=== PATIENT | female | born 1960 | race Caucasian/White ===

== ENCOUNTER 2016-04-15 07:27 | Outpatient (RCR) | payer MEDICARE, OTHER ==
[~2016-04-15 07:27] MED LIST: ALBU17AE23 INH; ALPR0.5T7 PO; ALPR0.5T72 PO; ALPR1T GT; AMOX-355 PO; APIX5TAB PO; ARIP5TAB12 PO; ARIP5TAB20 PO; BUSP10TA95 PO; BUSP5TAB59 PO; BUTA-234 PO; CARB-88 PO; CARB200T48 PO; CARB200T6 PO; CEFP500T4 PO; CEPH500C PO; DCS100C PO; DESV100T PO; DESV50TA PO; DICL50TA6; DILT240C90 PO; DIPH25TA82 PO; DULO60CA6; FLUT16SP22 NS; FLUT9.9S NS; GABA800T2 PO; HYDR-3062 PO; HYDR-3454 PO; HYDR-3714 PO; HYDR12.5 PO; HYDR12.56 PO; LISI1TAB10 PO; LISI40TA PO; LISI5TAB; LSNP20T PO; METO-272 PO; MPR22TI TOP; NEO/5DRO4 OU; NF-CLIN1% TP; NORT25CA PO; NYST15CR TP; OMEP20TA2 PO; PANT40TA2 PO; PANT40TA3 PO; PRD20T PO; PROM12.59 PO; PROP40TA5 PO; PROPANOLOL PO; RT-ALBUINH IH; SUCR1TAB PO; SUCR1TAB36 PO; SULF1TAB23 PO; SULF1TAB35 PO; TRAM50TA2 PO; TRZ100T; ZOLP5TAB6 PO; ZOLP5TAB7 PO
[2016-04-15] MEDS ORDERED: NYST15CR TP (08:29)
[2016-04-15] MEDS ORDERED: LISI-552 PO (08:29)
[2016-04-15] MEDS ORDERED: LISI40TA PO (08:29)
[2016-04-15] MEDS ORDERED: DILT240C PO (08:29)
[2016-04-15] MEDS ORDERED: METO-272 PO (08:29)
[2016-04-15] MEDS ORDERED: RIVA20TA PO (08:29)
[2016-04-15] MEDS ORDERED: CARB200T6 PO (08:29)
[2016-05-11] MEDS ORDERED: VILA20TA PO (10:25)
[2016-05-11] MEDS ORDERED: AMLO5TAB2 PO (10:25)
[2016-05-11] MEDS ORDERED: BUSP10TA95 PO (10:25)
[2016-05-12] MEDS ORDERED: POTA20TA8 PO (11:43)
[2016-05-12] MEDS ORDERED: HYDR12.5 PO (11:43)
[2016-05-12] MEDS ORDERED: AMLO10TA2 PO (11:43)
[2016-05-16] MEDS ORDERED: FAMO-119 PO (16:49)
== END 2016-06-20 | disposition home or self-care (01) ==
LOC: CARD 07:27
PROVIDERS: ATTEND Internal Medicine Interventional Cardiology
DX: I48.91 Unspecified atrial fibrillation (principal); R07.9 Chest pain, unspecified
CPT/HCPCS: 93270

== ENCOUNTER 2016-05-10 14:39 | Observation (INO) | payer MEDICARE, OTHER ==
[~2016-05-10] VITALS: Ht 171.4 cm; Wt 117.7 kg
[~2016-05-10 14:39] MED LIST changes: +DILT240C PO; +LISI-552 PO; +RIVA20TA PO
[2016-05-10] MEDS ORDERED: RX-NITROGLYCERIN 0.4 MG TAB BTL 25'S SL PRN (15:00)
[2016-05-10] MEDS ORDERED: ASPIRIN 81 MG CHEW (CHILDREN'S ASA) PO ONE (15:00)
[2016-05-10 15:05] LABS: BASOPHILS % (AUTO) 0 % (0-10); EOSINOPHILS # (AUTO) 0.2 10^3/uL (0.0-0.3); EOSINOPHILS % (AUTO) 3 % (0-10); LYMPHOCYTES % (AUTO) 27 % (12-44); MEAN CORPUSCULAR HEMOGLOBIN 29 PG (25-34); MEAN CORPUSCULAR HGB CONC 33 G/DL (32-36); MEAN CORPUSCULAR VOLUME 87 FL (80-99); MEAN PLATELET VOLUME 9.9 FL (7.4-10.4); MONOCYTES # (AUTO) 0.5 X 10^3 (0.0-1.0); MONOCYTES % (AUTO) 7 % (0-12); NEUTROPHILS # (AUTO) 4.6 X 10^3 (1.8-7.8); NEUTROPHILS % (AUTO) 63 % (42-75); PLATELET COUNT 220 10^3/uL (130-400); RED BLOOD COUNT 4.63 10^6/uL (4.35-5.85); RED CELL DISTRIBUTION WIDTH 13.5 % (10.0-14.5); WHITE BLOOD COUNT 7.3 10^3/uL (4.3-11.0)
[2016-05-10 15:15] LABS: INR 0.9 (0.8-1.4); PROTHROMBIN TIME PATIENT 12.1 SEC (12.2-14.7)
--- NOTE | 2016-05-10 15:15 | Diagnostic Imaging Report ---
INDICATION: Chest pain. Discussion: Single portable upright view of the chest was obtained, comparison 04/15/2016. Stable normal heart size. No focal consolidation, pleural fluid, pneumothorax. No osseous abnormality. IMPRESSION: 1. Negative portable chest. Dictated by: Dictated on workstation # [id number]
[2016-05-10 15:25] LABS: ALANINE AMINOTRANSFERASE 43 U/L (0-55); ALBUMIN 4.3 G/DL (3.2-4.5); AMYLASE 53 U/L (25-125); ANION GAP 11 MMOL/L (5-14); ASPARTATE AMINO TRANSFERASE 26 U/L (5-34); BILIRUBIN,TOTAL 0.2 MG/DL (0.1-1.0); BLOOD UREA NITROGEN 7 MG/DL (7-18); BUN/CREATININE RATIO 10; CALCIUM 9.2 MG/DL (8.5-10.1); CARBON DIOXIDE 25 MMOL/L (21-32); CHLORIDE 101 MMOL/L (98-107); CREATINE KINASE 48 U/L (29-168); CREATININE SERUM 0.68 MG/DL (0.60-1.30); GFR ESTIMATED > 60; GLUCOSE 86 MG/DL (70-105); LIPASE 25 U/L (8-78); MAGNESIUM 2.1 MG/DL (1.8-2.4); POTASSIUM 3.6 MMOL/L (3.6-5.0); SODIUM 137 MMOL/L (135-145); TOTAL PROTEIN 7.4 G/DL (6.4-8.2)
[2016-05-10 15:31] LABS: TROPONIN I < 0.30 NG/ML (<0.30)
[2016-05-10] MEDS ORDERED: NITROGLYCERIN 2% OINT 1 GM UNIT DOSE PACKET ONE (16:07)
[2016-05-10] MEDS ORDERED: NITROGLYCERIN 2% OINT 1 GM UNIT DOSE PACKET TOP ONE (16:15)
[2016-05-10 16:45] VITALS: BP 186/119
[2016-05-10 17:00] VITALS: BP 208/110
[2016-05-10 17:15] VITALS: BP 201/107
[2016-05-10 17:45] VITALS: BP 174/97
[2016-05-10] MEDS ORDERED: NITROGLYCERIN SUBLINGUAL 0.4 MG TAB (NITROSTAT) SL ONE (18:15)
[2016-05-10 18:30] VITALS: BP 169/93
[2016-05-10] MEDS ORDERED: NITROGLYCERIN SUBLINGUAL 0.4 MG TAB (NITROSTAT) SL PRN (18:30)
--- NOTE | 2016-05-10 19:15 | ED Chest Pain ---
General Chief Complaint: Chest Pain Stated Complaint: CHEST PAIN,HTN Nursing Triage Note: PT HAS CHEST PAIN STARTED APPROX 1 HOUR AGO STATES HAD YESTERDAY BUT WENT AWAY RATES 11/15 AT THIS X Nursing Sepsis Screen: No Definite Risk Source: patient History of Present Illness Time seen by provider: 14:45 Initial Comments PT ARRIVES VIA POV FROM HOME C/O CHEST DISCOMFORT --CENTER OF CHEST PAIN BEGAN YESTERDAY WHILE IN VEHICLE, TRAVELING FROM [place]. --LASTED 2 HOURS , THEN WENT AWAY PAIN STARTED AGAIN 1 HOUR AGO WHILE WATCHING TV--RATES PAIN -12/16 NO SHORTNESS OF BREATH NO SWEATS + NAUSEA, NO VOMITING NO CHANGE IN CHRONIC LEG SWELLING, NO CALF PAIN ? HEART RACING EARLIER? NOT NOW. PT HAS HISTORY OF ATRIAL FIBRILLATION ON XARELTO PCP: DR. SPENCE CARDIOLOGY: DR. MEJIA Allergies and Home Medications Allergies Coded Allergies: amitriptyline (Unverified Allergy, Unknown, CAUSED SLURRED SPEECH, 08/15/15) Home Medications Albuterol Sulfate 8.5 Gm Hfa.aer.ad 1-2 PUFF IH PRN PRN PRN SHORTNESS OF BREATH (Reported) Alprazolam 0.5 Mg Tablet 0.5 MG PO BID PRN PRN ANXIETY (Reported) Aripiprazole 5 Mg Tablet 5 MG PO DAILY (Reported) Buspirone HCl 10 Mg Tablet 10 MG PO TID (Reported) Carbamazepine 200 Mg Tablet 200 MG PO DAILY (Reported) TAKES FOR FACIAL TWITCHES, NOT SEIZURES Carbamazepine 200 Mg Tablet 400 MG PO HS (Reported) TAKES 2 (200MG) TABLETS Desvenlafaxine Succinate 100 Mg Tab.er.24h 100 MG PO DAILY (Reported) Diltiazem HCl 240 Mg Cap.er.24h 240 MG PO DAILY (Reported) Fluticasone Propionate 16 Gm [place].susp 1 SPRAY NS DAILY PRN PRN ALLERGIES ( Reported) Lisinopril 40 Mg Tablet 40 MG PO DAILY (Reported) Metoprolol Succinate 50 Mg Tab.er.24h 50 MG PO DAILY (Reported) Nortriptyline HCl 25 Mg Capsule 50 MG PO HS (Reported) TAKES 2 (25 MG) CAPSULES Nystatin 15 Gm Cream..g. TP BID (Reported) Pantoprazole Sodium 40 Mg Tablet.dr 40 MG PO DAILY (Reported) Rivaroxaban 20 Mg Tablet 20 MG PO HS (Reported) Sucralfate 1 Gm Tablet 1 GM PO ACHS (Reported) Zolpidem Tartrate 5 Mg Tablet 5 MG PO HS (Reported) Review of Systems Constitutional: no symptoms reported EENTM: No Symptoms Reported Respiratory: No Symptoms Reported Cardiovascular: See HPI Chest Pain Palpitations Gastrointestinal: See HPI Nausea Genitourinary: No Symptoms Reported Musculoskeletal: no symptoms reported Skin: no symptoms reported Psychiatric/Neurological: No Symptoms Reported Endocrine: No Symptoms Reported Hematologic/Lymphatic: No Symptoms Reported Past Nuilgmk-Oqennt-Qswbln Hx Patient Social History Alcohol Use: Denies Use Recreational Drug Use: No Smoking Status: Never a Smoker Recent Foreign Travel: No Contact w/Someone Who Travel: No Recent Infectious Disease Expo: No Recent Hopitalizations: Yes (03/08/16 FOR A-FIB) Physical Abuse Screen: No Sexual Abuse: No Immunizations Up To Date Tetanus Booster (TDap): More than 5yrs PED Vaccines UTD: Yes Date of Pneumonia Vaccine: May 10, 2013 Date of Influenza Vaccine: Feb 25, 2016 Seasonal Allergies Seasonal Allergies: Yes Surgeries HX Surgeries: Yes (cyst from right armpit removed with skin graft, LEFT SINUS SX) Respiratory Hx Respiratory Disorders: Yes (ASTHMA-MILD, SLEEP APNEA-CPAP) Respiratory Disorders: Asthma, Sleep Apnea Cardiovascular Hx Cardiac Disorders: Yes Cardiac Disorders: Atrial Fibrillation, Hypertension Neurological Hx Neurological Disorders: No Reproductive System Hx Reproductive Disorders: No Sexually Transmitted Disease: No HIV/AIDS: No Female Reproductive Disorders: Denies Genitourinary Hx Genitourinary Disorders: No Gastrointestinal Hx Gastrointestinal Disorders: Yes Gastrointestinal Disorders: Gastroesophageal Reflux, Chronic Constipation, Irritable Bowel Musculoskeletal Hx Musculoskeletal Disorders: Yes Musculoskeletal Disorders: Arthritis Endocrine Hx Endocrine Disorders: No HEENT HX ENT Disorders: Yes ([place]) Loss of Vision: Denies Hearing Impairment: Denies Cancer Hx Cancer: No Psychosocial Hx Psychiatric Problems: Yes Behavioral Health Disorders: Anxiety, Depression Integumentary HX Skin/Integumentary Disorder: No Blood Transfusions Hx Blood Disorders: No Family Medical History Family Medial History: Alcoholism Cancer Cancer of colon Cataract Dementia Family history: Alzheimer's disease Family history: Arthritis Family history: Diabetes mellitus Family history: Hypertension Family history: Osteoporosis Heart disease History of - anemia History of - respiratory disease Hypercholesterolemia Myocardial infarction Visual impairment No Family History of: Abdominal aortic aneurysm Mcintyre's disease Aphasia Chest pain Congenital heart disease Congestive heart failure Cystic fibrosis Dysphagia Family history: Allergy Family history: Asthma Family history: Breast disease Family history: Cardiovascular disease Family history: Coronary thrombosis Family history: Gastrointestinal disease Family history: Glaucoma Family history: Thyroid disorder Headache Hearing loss Hereditary disease History of - disorder History of drug abuse Human immunodeficiency virus (HIV) seropositivity Infertile Kidney disease Malignant neoplasm of lung Parkinson's disease Prostate cancer Psychotic disorder Seizure disorder Stroke Tuberculosis Physical Exam Vital Signs Vital Sign - Last 12Hours 05/10/16 14:40 Temp 97.9 Pulse 88 Resp 19 B/P 150/103 Capillary Refill : Less Than 3 Seconds General Appearance: No Apparent Distress WD/WN Obese HEENT: PERRL/EOMI Neck: Full Range of Motion Normal Inspection Non Tender SuppleNo Carotid Bruit , No JVD Respiratory: Normal Breath Sounds No Accessory Muscle Use No Respiratory Distress Cardiovascular: Regular Rate, Rhythm No Edema No JVD No Murmur Normal Peripheral Pulses Gastrointestinal: Normal Bowel Sounds No Organomegaly No Pulsatile Mass Non Tender Soft Extremity: Normal Capillary Refill Normal Inspection Normal Range of Motion Non Tender No Calf Tenderness Pedal Edema (2+ BILATERALLY) Neurologic/Psychiatric: Alert Oriented x3 No Motor/Sensory Deficits Normal 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 Norm as Tested Skin: Normal Color Warm/Dry Progress/Results/Core Measures Results/Orders Lab Results Laboratory Tests Test 05/10/16 14:50 Range/Units Activated Partial Thromboplast Time 29 24-35 SEC Alanine Aminotransferase (ALT/SGPT) 43 0-55 U/L Albumin 4.3 3.2-4.5 G/DL Alkaline Phosphatase 167 H 40-136 U/L Amylase Level 53 25-125 U/L Anion Gap 11 5-14 MMOL/L Aspartate Amino Transf (AST/SGOT) 26 5-34 U/L B-Type Natriuretic Peptide 46.2 <100.0 PG/ML BUN/Creatinine Ratio 10 Basophils # (Auto) 0.0 0.0-0.1 10^3/uL Basophils (%) (Auto) 0 0-10 % Blood Urea Nitrogen 7 7-18 MG/DL Calcium Level 9.2 8.5-10.1 MG/DL Carbamazepine (Tegretol) Level 7.4 4.0-12.0 UG/ML Carbon Dioxide Level 25 21-32 MMOL/L Chloride Level 101 98-107 MMOL/L Creatine Kinase MB 1.3 <6.6 NG/ML Creatinine 0.68 0.60-1.30 MG/DL Eosinophils # (Auto) 0.2 0.0-0.3 10^3/uL Eosinophils (%) (Auto) 3 0-10 % Estimat Glomerular Filtration Rate > 60 Glucose Level 86 70-105 MG/DL Hematocrit 40 35-52 % Hemoglobin 13.4 11.5-16.0 G/DL INR Comment 0.9 0.8-1.4 Lipase 25 8-78 U/L Lymphocytes # (Auto) 2.0 1.0-4.0 X 10^3 Lymphocytes (%) (Auto) 27 12-44 % Magnesium Level 2.1 1.8-2.4 MG/DL Mean Corpuscular Hemoglobin 29 25-34 PG Mean Corpuscular Hemoglobin Concent 33 32-36 G/DL Mean Corpuscular Volume 87 80-99 FL Mean Platelet Volume 9.9 7.4-10.4 FL Monocytes # (Auto) 0.5 0.0-1.0 X 10^3 Monocytes (%) (Auto) 7 0-12 % Neutrophils # (Auto) 4.6 1.8-7.8 X 10^3 Neutrophils (%) (Auto) 63 42-75 % Platelet Count 220 130-400 10^3/uL Potassium Level 3.6 3.6-5.0 MMOL/L Prothrombin Time 12.1 L 12.2-14.7 SEC Red Blood Count 4.63 4.35-5.85 10^6/uL Red Cell Distribution Width 13.5 10.0-14.5 % Sodium Level 137 135-145 MMOL/L Total Bilirubin 0.2 0.1-1.0 MG/DL Total Creatine Kinase 48 29-168 U/L Total Protein 7.4 6.4-8.2 G/DL Troponin I < 0.30 <0.30 NG/ML White Blood Count 7.3 4.3-11.0 10^3/uL My Orders Orders-AZRA CORONA DO Amylase (05/10/16 14:48) Cbc With Automated Diff (05/10/16 14:48) Comprehensive Metabolic Panel (05/10/16 14:48) Creatine Kinase (05/10/16 14:48) Creatine Kinase Mb (05/10/16 14:48) Lipase (05/10/16 14:48) Partial Thromboplastin Time (05/10/16 14:48) Protime With Inr (05/10/16 14:48) Troponin I (05/10/16 14:48) Chest 1 View, Ap/Pa Only (05/10/16 14:48) O2 (05/10/16 14:48) Ekg Tracing (05/10/16 14:48) Aspirin Chewable Tablet (Baby Aspirin Ch (05/10/16 15:00) Rx-Nitroglycerin Sl Tabs (Rx-Nitrostat S (05/10/16 15:00) BNP (05/10/16 14:48) Monitor-Rhythm Ecg Trace Only (05/10/16 14:48) Magnesium (05/10/16 14:48) Vital Signs/I&O Vital Sign - Last 12Hours 05/10/16 05/10/16 05/10/16 14:40 14:40 14:40 Temp 97.9 Pulse 88 Resp 19 B/P 150/103 Pulse Ox 100 100 O2 Delivery Room Air Room Air Blood Pressure Mean: 119 Progress Note : Progress Note BP DOWN AT TIME OF ADMIT WITH NITROPASTE. PAIN HAD RESOLVED ON IT'S OWN PRIOR TO NITROPASTE. ECG Initial ECG Impression Time: 14:45 Initial ECG Rate: 81 Initial ECG Rhythm: Normal Sinus Initial ECG Comparisson: Unchanged Diagnostic Imaging Comments CXR--NO ACUTE PROCESS, PER RADIOLOGIST REPORT Reviewed: Reviewed by Me Departure Communication Progress Notes 1605--SPOKE WITH YOUR DR. SERNA, ACCEPTS PT FOR ADMIT. Impression Impression: Primary Impression: Chest pain Additional Impression: HTN (hypertension) Disposition: ADMITTED INPATIENT Condition: Improved Decision to Admit Reason: Admit from ER (General) Decision to Admit/Date: May 10, 2016 Time/Decision to Admit Time: 16:05 Departure-Patient Inst. Referrals: DESIREE SPENCE MD (PCP) Primary Care Physician AZRA CORONA DO May 10, 2016 19:15
[2016-05-10] MEDS ORDERED: ACETAMINOPHEN 500 MG TAB (TYLENOL) ONE (19:58)
[2016-05-10 20:00] VITALS: BP 156/86
[2016-05-10] MEDS ORDERED: ACETAMINOPHEN 325 MG TABLET/CAPLET (TYLENOL) PO PRN (20:15)
[2016-05-10] MEDS ORDERED: ONDANSETRON 4 MG/2 ML (SDV) Z0FRAN ONE (20:19)
[2016-05-10] MEDS ORDERED: ALPRAZolam 0.5 MG (XANAX) TAB ONE (21:14)
[2016-05-10] MEDS ORDERED: PROMETHAZINE INJ 25 MG/ML (PHENERGAN) AMP ONE (21:14)
[2016-05-10] MEDS ORDERED: ALPRAZolam 0.5 MG (XANAX) TAB PO PRN (21:30)
[2016-05-10] MEDS: NITROGLYCERIN 2% OINT 1 GM UNIT DOSE PACKET TOP SCH (22:00)
[2016-05-11] VITALS (10 sets, daily range): BP systolic 161–191; BP diastolic 87–104
[2016-05-11] MEDS: morphine INJ 4 MG/ML 1 ML (VIAL/SYRINGE) IV PRN (03:02)
[2016-05-11 03:57] LABS: BASOPHILS % (AUTO) 0 % (0-10); EOSINOPHILS % (AUTO) 0 % (0-10); LYMPHOCYTES # (AUTO) 1.1 X 10^3 (1.0-4.0); LYMPHOCYTES % (AUTO) 15 % (12-44); MEAN CORPUSCULAR HEMOGLOBIN 28 PG (25-34); MEAN CORPUSCULAR HGB CONC 32 G/DL (32-36); MEAN CORPUSCULAR VOLUME 87 FL (80-99); MEAN PLATELET VOLUME 10.3 FL (7.4-10.4); MONOCYTES # (AUTO) 0.2 X 10^3 (0.0-1.0); MONOCYTES % (AUTO) 2 % (0-12); NEUTROPHILS # (AUTO) 6.1 X 10^3 (1.8-7.8); NEUTROPHILS % (AUTO) 83 % (42-75); PLATELET COUNT 226 10^3/uL (130-400); RED BLOOD COUNT 4.41 10^6/uL (4.35-5.85); RED CELL DISTRIBUTION WIDTH 13.5 % (10.0-14.5); WHITE BLOOD COUNT 7.4 10^3/uL (4.3-11.0)
[2016-05-11] MEDS: NITROGLYCERIN 2% OINT 1 GM UNIT DOSE PACKET TOP SCH ×4 (04:00→22:00)
[2016-05-11 04:15] LABS: ALANINE AMINOTRANSFERASE 37 U/L (0-55); ANION GAP 15 MMOL/L (5-14); ASPARTATE AMINO TRANSFERASE 21 U/L (5-34); BILIRUBIN,TOTAL 0.3 MG/DL (0.1-1.0); BLOOD UREA NITROGEN 7 MG/DL (7-18); BUN/CREATININE RATIO 10; CALCIUM 8.8 MG/DL (8.5-10.1); CARBON DIOXIDE 23 MMOL/L (21-32); CHLORIDE 100 MMOL/L (98-107); CHOLESTEROL 202 MG/DL (< 200); CREATININE SERUM 0.67 MG/DL (0.60-1.30); DIRECT LDL 116 MG/DL (1-129); GFR ESTIMATED > 60; GLUCOSE 116 MG/DL (70-105); POTASSIUM 3.9 MMOL/L (3.6-5.0); SODIUM 138 MMOL/L (135-145); TOTAL PROTEIN 6.7 G/DL (6.4-8.2); TRIGLYCERIDES 56 MG/DL (<150); VLDL CHOLESTEROL 11 MG/DL (5-40)
[2016-05-11] MEDS ORDERED: VILA20TA PO (10:25)
[2016-05-11] MEDS ORDERED: AMLO5TAB2 PO (10:25)
[2016-05-11] MEDS ORDERED: BUSP10TA95 PO (10:25)
[2016-05-11] MEDS ORDERED: ALPRAZolam 0.5 MG (XANAX) TAB PO PRN (11:45)
[2016-05-11] MEDS ORDERED: lisINopril 20 MG (ZESTRIL) TAB ONE (11:48)
--- NOTE | 2016-05-11 11:50 | Consultation-Cardiology ---
HPI-Cardiology Cardiology Consultation: Date of Consultation 05/11/16 Date of Admission Attending Physician Soledad Verduzco MD Admitting Physician Lucinda Kent MD Consulting Physician Rita GERARDO MD HPI: Chief Complaint: chest pain This is a 55 year old lady with chest pain. Recent cath which shows no significant CAD. Significantly elevated BP. Review of Systems-Cardiology Review of Systems Constitutional: No As described under HPI, No no symptoms reported, No chills, No fever, No lightheadedness, No malaise, No tiredness, No weight loss, No weight gain, No other Eyes: No As described under HPI, No no symptoms reported, No blindness, No blurred vision, No contact lenses, No drainage, No decreased acuity, No foreign body sensation, No glasses, No inflammation, No pain, No photophobia, No previous injury, No shadows, No tunnel vision, No other, No vision change Ears/Nose/Throat: No As described under HPI, No no symptoms reported, No chronic hearing loss, No epistaxis, No ear discharge, No ear pain, No loose teeth, No mouth pain, No mouth swelling, No nasal drainage, No nose pain, No recent hearing loss, No throat pain, No throat swelling, No ulcerations, No other Respiratory: No no symptoms reported, No As described under HPI, No cough, No orthopnea, No shortness of breath, No SOB with excertion, No SOB at rest, No stridor, No wheezing, No other Cardiovascular: chest pain Gastrointestinal: No no symptoms reported, No As described under HPI, No abdomen distended, No abdominal pain, No blood streaked bowels, No constipation , No diarrhea, No difficulty swallowing, No nausea, No poor appetite, No poor fluid intake, No rectal bleeding, No vomiting, No other, No nausea/vomiting/ diarrhea, No stool coloration changes Genitourinary: No no symptoms reported, No As described under HPI, No burning, No dysuria, No discharge, No frequency, No flank pain, No hematuria, No incontinence, No pain, No urgency, No other, No urine frequency changes, No urine coloration changes Musculoskeletal: No no symptoms reported, No As describe under HPI, No back pain, No gout, No joint pain, No joint swelling, No muscle pain, No muscle stiffness, No neck pain, No other Skin: No no symptoms reported, No As described under HPI, No change in color, No change in hair/nails, No dryness, No lesions, No lumps, No rash, No other, No skin related problems, No ulcerations, No rash on exposed areas, No ulcerations on exposed areas Psychiatric/Neurological: No As described under HPI, No anxiety, No depression , No emotional problems, No focal weakness, No headache, No no symptoms reported , No numbness, No other, No pre-existing deficit, No seizure, No syncope, No tingling, No tremors, No weakness GKC-Ernmcm-Srtddb Hx Patient Social History Alcohol Use: Denies Use Recreational Drug Use: No Smoking Status: Never a Smoker Recent Foreign Travel: No Recent Infectious Disease Expo: No Hospitalization with Isolation: Denies Physical Abuse Screen: No Sexual Abuse: No Immunizations Up To Date Tetanus Booster (TDap): More than 5yrs Date of Pneumonia Vaccine: May 10, 2013 Date of Influenza Vaccine: Feb 25, 2016 Past Medical History PMH As described under Assessment. Family Medical History Family History: Alcoholism Cancer Cancer of colon Cataract Dementia Family history: Alzheimer's disease Family history: Arthritis Family history: Diabetes mellitus Family history: Hypertension Family history: Osteoporosis Heart disease History of - anemia History of - respiratory disease Hypercholesterolemia Myocardial infarction Visual impairment No Family History of: Abdominal aortic aneurysm Manson's disease Aphasia Chest pain Congenital heart disease Congestive heart failure Cystic fibrosis Dysphagia Family history: Allergy Family history: Asthma Family history: Breast disease Family history: Cardiovascular disease Family history: Coronary thrombosis Family history: Gastrointestinal disease Family history: Glaucoma Family history: Thyroid disorder Headache Hearing loss Hereditary disease History of - disorder History of drug abuse Human immunodeficiency virus (HIV) seropositivity Infertile Kidney disease Malignant neoplasm of lung Parkinson's disease Prostate cancer Psychotic disorder Seizure disorder Stroke Tuberculosis Allergies and Home Medications Allergies Coded Allergies: amitriptyline (Unverified Allergy, Unknown, CAUSED SLURRED SPEECH, 08/15/15) Home Medications Albuterol Sulfate 8.5 Gm Hfa.aer.ad 1-2 PUFF IH Q4H PRN PRN SHORTNESS OF BREATH (Reported) Alprazolam 0.5 Mg Tablet 0.5 MG PO BID PRN PRN ANXIETY (Reported) Amlodipine Besylate 5 Mg Tablet 5 MG PO HS (Reported) Aripiprazole 5 Mg Tablet 5 MG PO DAILY (Reported) Buspirone HCl 10 Mg Tablet 10 MG PO DAILY (Reported) Buspirone HCl 10 Mg Tablet 20 MG PO HS (Reported) TAKES 2 (10MG) TABLETS Carbamazepine 200 Mg Tablet 200 MG PO DAILY (Reported) TAKES FOR FACIAL TWITCHES, NOT SEIZURES Carbamazepine 200 Mg Tablet 400 MG PO HS (Reported) TAKES 2 (200MG) TABLETS Diltiazem HCl 240 Mg Cap.er.24h 240 MG PO HS (Reported) Fluticasone Propionate 16 Gm [place].susp 1 SPRAY NS DAILY PRN PRN ALLERGIES ( Reported) Lisinopril 40 Mg Tablet 40 MG PO DAILY (Reported) Metoprolol Succinate 50 Mg Tab.er.24h 50 MG PO HS (Reported) Nortriptyline HCl 25 Mg Capsule 50 MG PO HS (Reported) TAKES 2 (25 MG) CAPSULES Nystatin 15 Gm Cream..g. TP BID (Reported) Pantoprazole Sodium 40 Mg Tablet.dr 40 MG PO HS (Reported) Rivaroxaban 20 Mg Tablet 20 MG PO HS (Reported) Sucralfate 1 Gm Tablet 1 GM PO ACHS (Reported) Vilazodone Hydrochloride 20 Mg Tablet 20 MG PO DAILY (Reported) Zolpidem Tartrate 5 Mg Tablet 5 MG PO HS (Reported) Physical Exam-Cardiology Physical Exam Vital Signs/I&O Vital Sign - Last 12Hours 05/11/16 05/11/16 05/11/16 05/11/16 09:01 09:07 12:00 12:00 Temp 99.5 99.9 Pulse 75 74 Resp 18 20 B/P 191/102 181/100 Pulse Ox 99 99 98 O2 Delivery Room Air Room Air Room Air Room Air 05/11/16 05/11/16 05/11/16 05/11/16 12:54 13:36 14:15 15:41 Pulse 76 86 Resp 20 B/P 189/102 183/104 182/104 Pulse Ox 99 05/11/16 05/11/16 17:00 19:00 Temp 99.3 Pulse 80 78 Resp 20 B/P 164/87 Pulse Ox 99 Intake and Output 05/11/16 00:00 Intake Total 800 ml Balance 800 ml Capillary Refill : Less Than 3 Seconds Constitutional: No appears stated age, No AAO x 3, No apparent distress, No PERRL, No well-developed, No well-nourished, No other HEENT: No PERRL, No normal ENT inspection, No TMs normal, No pharynx normal, No scleral icterus (R), No scleral icterus (L), No pale conjunctivae (R), No pale conjunctivae (L), No photophobia, No TM abnormal (R), No TM abnormal (L), No pharyngeal erythema, No tonsillar exudate, No other, No discharge, No EOMI, No hearing is well preserved, No hard of hearing, No oral hygience is good, No ulceration, No xanthelasmas are seen Neck: No non-tender, No full range of motion, No supple, No normal inspection, No carotid bruit, No limited range of motion, No lymphadenopathy (R), No lymphadenopathy (L), No tender lateral, No tender midline, No thyromegaly, No other, No carotid pulses are 2 + bilaterally, No with good upstrokes Respiratory: No accessory muscle use, No respiratory distress, No chest tender , No chest expansion is symmetric, No chest is bilaterally symmetric, No lungs clear to percussion, No lungs clear to auscultation, No crackles, No rhonchi, No rales, No stridor, No wheezing, No pleural rub, No other Cardiovascular: No regular rate-rhythm, No irregularly irregular, No extra beats, No parasternal heave is noted, No JVD, No edema, No bradycardia, No tachycardia, No point of maximal impulse, No cardiac thrills are palpable, No S1 and S2, No gallop/S3, No gallop/S4, No diastolic murmur, No systolic murmur, No friction rub, No click, No other Gastrointestinal: No tender, No soft, No round, No distended, No pulsatile mass , No organomegaly, No guarding, No rebound, No tenderness, No hernia, No mass, No audible bowel sounds, No abnormal bowel sounds, No abdominal bruits, No spleenomegaly, No other Rectal: deferred Extremities: No normal range of motion, No non-tender, No normal inspection, No pedal edema, No calf tenderness, No normal capillary refill, No pelvis stable , No calf tenderness, No inflammation, No pedal edema, No slow capillary refill , No swelling, No other, No abrasion, No clubbing, No cyanosis, No ecchymosis, No laceration, No no lower extremity edema bilateral, No significant edema, No tenderness, No wound Neurologic/Psychiatric: No cheese processor II-XII nml as tested, No no motor/sensory deficits, No alert, No normal mood/affect, No oriented x 3, No abnormal cerebellar tests, No abnormal cheese processor II-XII, No abnormal gait, No aphasia, No EOM palsy, No facial droop, No motor weakness, No sensory deficit, No depressed affect, No disoriented x 3, No other, No grossly intact, No power is 5/5 both on sides Skin: No normal color, No warm/dry, No cyanosis, No cool, No diaphoresis, No damp, No ecchymosis, No jaundice, No mottled, No pallor, No rash, No tattoos/ piercings, No ulcerations, No rash on exposed areas, No ulcerations on exposed areas, No other Data Review Labs Laboratory Tests 05/11/16 03:10: Alanine Aminotransferase (ALT/SGPT) 37, Albumin 4.0, Alkaline Phosphatase 151H, Anion Gap 15H, Aspartate Amino Transf (AST/SGOT) 21, BUN/Creatinine Ratio 10, Basophils # (Auto) 0.0, Basophils (%) (Auto) 0, Blood Urea Nitrogen 7, Calcium Level 8.8, Carbon Dioxide Level 23, Chloride Level 100, Cholesterol Level 202H, Creatinine 0.67, Eosinophils # (Auto) 0.0, Eosinophils (%) (Auto) 0, Estimat Glomerular Filtration Rate > 60, Glucose Level 116H, HDL Cholesterol 66H, Hematocrit 38, Hemoglobin 12.4, LDL Cholesterol Direct 116, Lymphocytes # (Auto ) 1.1, Lymphocytes (%) (Auto) 15, Mean Corpuscular Hemoglobin 28, Mean Corpuscular Hemoglobin Concent 32, Mean Corpuscular Volume 87, Mean Platelet Volume 10.3, Monocytes # (Auto) 0.2, Monocytes (%) (Auto) 2, Neutrophils # (Auto ) 6.1, Neutrophils (%) (Auto) 83H, Platelet Count 226, Potassium Level 3.9, Red Blood Count 4.41, Red Cell Distribution Width 13.5, Sodium Level 138, Total Bilirubin 0.3, Total Protein 6.7, Triglycerides Level 56, Troponin I < 0.30, VLDL Cholesterol 11, White Blood Count 7.4 ECG Impression ECG Initial ECG Rhythm: Normal Sinus A/P-Cardiology Assessment/Admission Diagnosis afib, chest pain, HTN Plan afib - in sinus rhythm , s/p Cardioversion. chest pain - no significant disease on recent cath. HTN - add amlodipine, continue other meds. Thank you for your consultation. Please call me if you have any questions. Augie Gerardo MD, FACP, FACC, FSCAI, FHRS, CCDS Interventional Cardiology Cardiac Electrophysiology Vascular Medicine and Endovascular Interventions Clinical Quality Measures AMI/AHF: ASA po Prior to arrival: Yes DVT/VTE Risk/Contraindication: Risk Factor Score Per Nursin RFS Level Per Nursing on Admit: 2=Moderate Rita GERARDO MD May 11, 2016 11:50 am
[2016-05-11] MEDS ORDERED: amLODIPine 10 MG (NORVASC) TAB PO ONE (12:15)
[2016-05-11] MEDS ORDERED: lisINopril 20 MG (ZESTRIL) TAB PO ONE (12:15)
--- NOTE | 2016-05-11 14:56 | Diagnostic Imaging Report ---
INDICATION: Uncontrolled hypertension. COMPARISON: None. DISCUSSION: Sonographic evaluation of the aorta, kidneys, and renal arteries was performed. Images were assessed for grayscale appearance, color and spectral Doppler blood flow. The kidneys appear normal in echotexture and size bilaterally without evidence of hydronephrosis or renal mass. The right kidney measures 11 cm. The left kidney measures 12.5 cm. Normal resistive indices within the bilateral kidneys measuring 0.72 respectively. Limited visualization of the bilateral renal arteries due to overlying bowel gas and patient body habitus. There are normal flow velocities and waveforms present within the bilateral distal renal arteries with no sonographic evidence for renal artery stenosis identified. IMPRESSION: 1. Limited visualization of the bilateral renal arteries. No sonographic evidence for renal artery stenosis identified within the visualized portions of the bilateral distal renal arteries. Dictated by: Dictated on workstation # [id number]
[2016-05-11] MEDS ORDERED: ACETAMINOPHEN 500 MG TAB (TYLENOL) PO PRN (15:06)
[2016-05-11] MEDS ORDERED: CATHETER FLUSH 10 ML SYR IV PRN (15:15)
--- NOTE | 2016-05-11 15:31 | History & Physicial (CHS) ---
HPI History of Present Illness: 55 yo F that presented to ER with chest pain that started 1 hour prior to arriving at ER. Patient stated that the pain was a heavy pain that was similar to the pain she had in Feb when she had the cath. States that she had chest pain the day before but it went away on its own. She denies the pain moving up her jaw or down her arm Denies any burning in her throat. Pain worsens when she gets up and ambulates. She had taken ASA prior to arriving in the ER. States that she had taken her blood pressure medications prior to coming in the ER. Source: patient, RN/MD, old records Exam Limitations: no limitations Date seen by provider: May 11, 2016 Time seen by provider: 10:15 Attending Physician Soledad Verduzco MD PCP Desiree Kent MD Consult Date of Admission May 10, 2016 at 16:05 Home Medications Home Medications Reviewed patient Home Medication Reconciliation Form Allergies Coded Allergies: amitriptyline (Unverified Allergy, Unknown, CAUSED SLURRED SPEECH, 08/15/15) EYQ-Lifvfz-Lntavh Hx Patient Social History Alcohol Use: Denies Use Recreational Drug Use: No Smoking Status: Never a Smoker Recent Foreign Travel: No Contact w/other who traveled: No Recent Hopitalizations: Yes (03/08/16 FOR A-FIB) Recent Infectious Disease Expo: No Physical Abuse Screen: No Sexual Abuse: No Immunizations Up To Date Tetanus Booster (TDap): More than 5yrs Date of Pneumonia Vaccine: May 10, 2013 Date of Influenza Vaccine: Feb 25, 2016 Past Medical History HTN Paroxsymal A fib Anxiety and Depression Family Medical History Family History: Alcoholism Cancer Cancer of colon Cataract Dementia Family history: Alzheimer's disease Family history: Arthritis Family history: Diabetes mellitus Family history: Hypertension Family history: Osteoporosis Heart disease History of - anemia History of - respiratory disease Hypercholesterolemia Myocardial infarction Visual impairment No Family History of: Abdominal aortic aneurysm Kenny's disease Aphasia Chest pain Congenital heart disease Congestive heart failure Cystic fibrosis Dysphagia Family history: Allergy Family history: Asthma Family history: Breast disease Family history: Cardiovascular disease Family history: Coronary thrombosis Family history: Gastrointestinal disease Family history: Glaucoma Family history: Thyroid disorder Headache Hearing loss Hereditary disease History of - disorder History of drug abuse Human immunodeficiency virus (HIV) seropositivity Infertile Kidney disease Malignant neoplasm of lung Parkinson's disease Prostate cancer Psychotic disorder Seizure disorder Stroke Tuberculosis Review of Systems (CHC) Constitutional: no symptoms reportedNo chills, No diaphoresis, No dizziness, malaiseNo weakness EENTM: no symptoms reported Respiratory: no symptoms reportedNo cough, No dyspnea on exertion, No orthopnea, No short of breath, No wheezing Cardiovascular: chest pain (resovled since putting on nitro paste)No edema, No palpitations Gastrointestinal: no symptoms reportedNo abdominal pain, No constipation, No diarrhea, nausea (Last night with nitro paste) Genitourinary: no symptoms reportedNo dysuria, No frequency, No hematuria, No incontinence Musculoskeletal: no symptoms reportedNo back pain, No muscle pain Skin: no symptoms reportedNo rash Psychiatric/Neurological: No Symptoms Reported Reviewed Test Results Reviewed Test Results Lab Laboratory Tests Test 05/10/16 20:35 05/11/16 03:10 Range/Units Troponin I < 0.30 < 0.30 <0.30 NG/ML Alanine Aminotransferase (ALT/SGPT) 37 0-55 U/L Albumin 4.0 3.2-4.5 G/DL Alkaline Phosphatase 151 H 40-136 U/L Anion Gap 15 H 5-14 MMOL/L Aspartate Amino Transf (AST/SGOT) 21 5-34 U/L BUN/Creatinine Ratio 10 Basophils # (Auto) 0.0 0.0-0.1 10^3/uL Basophils (%) (Auto) 0 0-10 % Blood Urea Nitrogen 7 7-18 MG/DL Calcium Level 8.8 8.5-10.1 MG/DL Carbon Dioxide Level 23 21-32 MMOL/L Chloride Level 100 98-107 MMOL/L Cholesterol Level 202 H < 200 MG/DL Creatinine 0.67 0.60-1.30 MG/DL Eosinophils # (Auto) 0.0 0.0-0.3 10^3/uL Eosinophils (%) (Auto) 0 0-10 % Estimat Glomerular Filtration Rate > 60 Glucose Level 116 H 70-105 MG/DL HDL Cholesterol 66 H 40-60 MG/DL Hematocrit 38 35-52 % Hemoglobin 12.4 11.5-16.0 G/DL LDL Cholesterol Direct 116 1-129 MG/DL Lymphocytes # (Auto) 1.1 1.0-4.0 X 10^3 Lymphocytes (%) (Auto) 15 12-44 % Mean Corpuscular Hemoglobin 28 25-34 PG Mean Corpuscular Hemoglobin Concent 32 32-36 G/DL Mean Corpuscular Volume 87 80-99 FL Mean Platelet Volume 10.3 7.4-10.4 FL Monocytes # (Auto) 0.2 0.0-1.0 X 10^3 Monocytes (%) (Auto) 2 0-12 % Neutrophils # (Auto) 6.1 1.8-7.8 X 10^3 Neutrophils (%) (Auto) 83 H 42-75 % Platelet Count 226 130-400 10^3/uL Potassium Level 3.9 3.6-5.0 MMOL/L Red Blood Count 4.41 4.35-5.85 10^6/uL Red Cell Distribution Width 13.5 10.0-14.5 % Sodium Level 138 135-145 MMOL/L Total Bilirubin 0.3 0.1-1.0 MG/DL Total Protein 6.7 6.4-8.2 G/DL Triglycerides Level 56 <150 MG/DL VLDL Cholesterol 11 5-40 MG/DL White Blood Count 7.4 4.3-11.0 10^3/uL Radiology Abdominal US with renal Dopplers: pending Physical Exam-([facility]) Physical Exam Vital Signs VS - Last 72 Hours, by Label 05/10/16 05/10/16 05/10/16 05/10/16 14:40 14:40 14:40 16:45 Temp 97.9 99.1 Pulse 88 78 Resp 19 18 B/P 150/103 186/119 Pulse Ox 100 100 95 O2 Delivery Room Air Room Air Room Air 05/10/16 05/10/16 05/10/16 05/10/16 16:48 17:00 17:15 17:15 Pulse 88 81 76 Resp 19 B/P 208/110 201/107 Pulse Ox 100 O2 Delivery Room Air Room Air 05/10/16 05/10/16 05/10/16 05/10/16 17:45 18:30 19:00 20:00 Temp 98.9 Pulse 72 82 82 75 Resp 18 B/P 174/97 169/93 156/86 Pulse Ox 95 O2 Delivery Room Air 05/11/16 05/11/16 05/11/16 05/11/16 00:00 01:12 03:00 03:00 Temp 98.7 97.9 Pulse 80 81 75 Resp 18 18 B/P 167/95 161/94 Pulse Ox 96 94 94 O2 Delivery Room Air Room Air Room Air 05/11/16 05/11/16 05/11/16 05/11/16 04:00 06:46 09:01 09:07 Temp 99.5 Pulse 72 75 Resp 18 B/P 191/102 Pulse Ox 100 99 99 O2 Delivery Room Air Room Air Room Air 05/11/16 05/11/16 05/11/16 05/11/16 12:00 12:00 12:54 13:36 Temp 99.9 Pulse 74 76 Resp 20 B/P 181/100 189/102 Pulse Ox 98 O2 Delivery Room Air Room Air 05/11/16 14:15 B/P 183/104 Capillary Refill : Less Than 3 Seconds General Appearance: WD/WN no apparent distress obese HEENT: PERRL/EOMI TMs normal pharynx normal Neck: non-tender full range of motion supple normal inspectionNo carotid bruit , No thyromegaly Respiratory: chest non-tender lungs clear normal breath sounds no respiratory distress no accessory muscle useNo crackles, No wheezing Cardiovascular: regular rate, rhythm no edema no gallop no JVD no murmur Gastrointestinal: normal bowel sounds non tender soft no organomegaly no pulsatile massNo distended, No guarding, No rebound Back: normal inspection no CVA tenderness no vertebral tenderness Extremities: normal range of motion non-tender normal inspection no pedal edema no calf tenderness normal capillary refill Neurologic/Psychiatric: exchange architect II-XII nml as tested no motor/sensory deficits alert normal mood/affect oriented x 3 Skin: normal color warm/dry Lymphatic: no adenopathy Assessment/Plan Assessment/Plan Admission Dx Acute chest pain Hypertensive urgency Paroxysmal Atrial fibrillation Anxiety and depression Plan 55 yo F that was admitted from the ER with Atypical chest pain Plan Atypical Chest pain: Resolved this AM - Cardiac Enzymes Normal after trending - Pain improved with Nitro - Recent Echo in 03/2016 with Nml EF and mild LVH, Stress that showed reversible Defect and then Normal cath 04/2016 - CXR: no acute changes - A1c pending Hypertensive Urgency - Continue home blood pressure meds - Start Chlorthalidone 25 mg Daily - Renal dopplers pending to rule out RA stenosis Atrial Fibrillation - Currently in NSR - Continue PO anticoagulation Anxiety and Depression - Start home meds Dispo: Continue admission for uncontrolled blood pressure DVT PPX: on PO anticoagulation FEN: CHO diet Diagnosis/Problems: Clinical Quality Measures AMI/AHF: ASA po Prior to arrival: Yes DVT/VTE Risk/Contraindication: Risk Factor Score Per Nursin RFS Level Per Nursing on Admit: 2=Moderate Copy Copies To 1: DESIREE KENT MD, HOLLY R MD May 11, 2016 15:31
[2016-05-11] MEDS: SUCRALFATE 1 GM (CARAFATE) TAB PO SCH ×2 (17:50→21:23)
[2016-05-11] MEDS: CHLORTHALIDONE 25 MG (HYGROTON) TABLET PO SCH (18:32)
[2016-05-11] MEDS ORDERED: amLODIPine 10 MG (NORVASC) TAB PO SCH (21:00)
[2016-05-11] MEDS ORDERED: meTOproloL SUCCINATE 50 MG (TOPROL XL) TAB PO SCH (21:00)
[2016-05-11] MEDS ORDERED: ZOLPIDEM 5 MG (AMBIEN) TAB PO SCH (21:00)
[2016-05-11] MEDS ORDERED: PANTOPRAZOLE 40 MG (PROTONIX) TAB PO SCH (21:00)
[2016-05-11] MEDS ORDERED: carBAMazepine 200 MG (TEGretol) TAB PO SCH (21:00)
[2016-05-11] MEDS ORDERED: DILTIAZEM 240 MG (CARDIZEM CD) CAP PO SCH (21:00)
[2016-05-11] MEDS ORDERED: amLODIPine 5 MG (NORVASC) TAB PO SCH (21:00)
[2016-05-11] MEDS ORDERED: RIVAROXABAN 20 MG TABLET (XARELTO) PO SCH (21:00)
[2016-05-11] MEDS ORDERED: NORTRIPTYLINE 25 MG (PAMELOR) CAP PO SCH (21:00)
[2016-05-11] MEDS ORDERED: busPIRone 10 MG (BUSPAR) TAB PO SCH (21:00)
[2016-05-11] MEDS: CATHETER FLUSH 10 ML SYR IV SCH (21:33)
[2016-05-12] VITALS: BP 168/100
[2016-05-12 02:20] VITALS: BP 162/92
[2016-05-12] MEDS: morphine INJ 4 MG/ML 1 ML (VIAL/SYRINGE) IV PRN (03:56)
[2016-05-12] MEDS: CATHETER FLUSH 10 ML SYR IV SCH (03:57)
[2016-05-12 04:00] VITALS: BP 167/98
[2016-05-12] MEDS: NITROGLYCERIN 2% OINT 1 GM UNIT DOSE PACKET TOP SCH ×2 (04:00→10:00)
[2016-05-12 04:32] LABS: BASOPHILS % (AUTO) 1 % (0-10); EOSINOPHILS # (AUTO) 0.2 10^3/uL (0.0-0.3); EOSINOPHILS % (AUTO) 2 % (0-10); LYMPHOCYTES % (AUTO) 27 % (12-44); MEAN CORPUSCULAR HEMOGLOBIN 29 PG (25-34); MEAN CORPUSCULAR HGB CONC 33 G/DL (32-36); MEAN CORPUSCULAR VOLUME 87 FL (80-99); MEAN PLATELET VOLUME 9.8 FL (7.4-10.4); MONOCYTES # (AUTO) 0.6 X 10^3 (0.0-1.0); MONOCYTES % (AUTO) 8 % (0-12); NEUTROPHILS # (AUTO) 4.6 X 10^3 (1.8-7.8); NEUTROPHILS % (AUTO) 62 % (42-75); PLATELET COUNT 248 10^3/uL (130-400); RED CELL DISTRIBUTION WIDTH 13.5 % (10.0-14.5); WHITE BLOOD COUNT 7.4 10^3/uL (4.3-11.0)
[2016-05-12 04:48] LABS: ANION GAP 12 MMOL/L (5-14); BLOOD UREA NITROGEN 8 MG/DL (7-18); BUN/CREATININE RATIO 11; CALCIUM 9.1 MG/DL (8.5-10.1); CARBON DIOXIDE 25 MMOL/L (21-32); CHLORIDE 98 MMOL/L (98-107); CREATININE SERUM 0.73 MG/DL (0.60-1.30); GFR ESTIMATED > 60; GLUCOSE 105 MG/DL (70-105); POTASSIUM 3.5 MMOL/L (3.6-5.0); SODIUM 135 MMOL/L (135-145)
[2016-05-12] MEDS: SUCRALFATE 1 GM (CARAFATE) TAB PO SCH ×2 (07:34→10:32)
[2016-05-12] MEDS: CHLORTHALIDONE 25 MG (HYGROTON) TABLET PO SCH (07:34)
[2016-05-12 08:00] VITALS: BP 160/94
[2016-05-12] MEDS ORDERED: ARIPIPRAZOLE 10 MG (ABILIFY) TAB PO SCH (09:00)
[2016-05-12] MEDS: KCL 20 MEQ TAB (K-DUR) PO SCH ×2 (09:00→10:30)
[2016-05-12] MEDS ORDERED: NON-FORMULARY MEDICATION 1 EA EA (Vilazodone Hydrochloride (Viibryd) 20 MG) PO SCH (09:00)
[2016-05-12] MEDS ORDERED: lisINopril 20 MG (ZESTRIL) TAB PO SCH (09:00)
[2016-05-12] MEDS ORDERED: busPIRone 10 MG (BUSPAR) TAB PO SCH (09:00)
[2016-05-12] MEDS ORDERED: HYDROCHLOROTHIAZIDE 12.5 MG (HCTZ) CAP PO ONE (10:30)
[2016-05-12 11:40] VITALS: BP 149/87
[2016-05-12] MEDS ORDERED: HYDR12.5 PO (11:43)
[2016-05-12] MEDS ORDERED: POTA20TA8 PO (11:43)
[2016-05-12] MEDS ORDERED: AMLO10TA2 PO (11:43)
--- NOTE | 2016-05-12 11:48 | Discharge Instructions ---
Discharge [facility] Discharge Medications New, Converted or Re-Newed RX: Call to Patients Pharmacy New Medications: Amlodipine Besylate (Amlodipine Besylate) 10 Mg Tablet 10 MG PO HS #30 TAB Hydrochlorothiazide (Hydrochlorothiazide) 12.5 Mg Capsule 12.5 MG PO DAILY@0900 #30 CAP Potassium Chloride (Klor-Con M20) 20 Meq Tab.er.prt 20 MEQ PO DAILY #30 Continued Medications: Albuterol Sulfate (Proair Hfa) 8.5 Gm Hfa.aer.ad 1-2 PUFF IH Q4H PRN SHORTNESS OF BREATH INHALER Alprazolam (Alprazolam) 0.5 Mg Tablet 0.5 MG PO BID PRN ANXIETY TAB Aripiprazole (Aripiprazole) 5 Mg Tablet 5 MG PO DAILY TAB Buspirone HCl (Buspirone HCl) 10 Mg Tablet 10 MG PO DAILY TAB Buspirone HCl (Buspirone HCl) 10 Mg Tablet 20 MG PO HS TAKES 2 (10MG) TABLETS TAB Carbamazepine (Carbamazepine) 200 Mg Tablet 200 MG PO DAILY TAKES FOR FACIAL TWITCHES, NOT SEIZURES TAB Carbamazepine (Carbamazepine) 200 Mg Tablet 400 MG PO HS TAKES 2 (200MG) TABLETS TAB Diltiazem HCl (Diltiazem 24Hr ER) 240 Mg Cap.er.24h 240 MG PO HS CAP Fluticasone Propionate (Fluticasone Propionate) 16 Gm [place].susp 1 SPRAY NS DAILY PRN ALLERGIES EA Lisinopril (Lisinopril) 40 Mg Tablet 40 MG PO DAILY TAB Metoprolol Succinate (Metoprolol Succinate) 50 Mg Tab.er.24h 50 MG PO HS TAB Nortriptyline HCl (Nortriptyline HCl) 25 Mg Capsule 50 MG PO HS TAKES 2 (25 MG) CAPSULES CAP Nystatin (Nystatin) 15 Gm Cream..g. TP BID TUBE Pantoprazole Sodium (Pantoprazole Sodium) 40 Mg Tablet.dr 40 MG PO HS TAB Rivaroxaban (Xarelto) 20 Mg Tablet 20 MG PO HS TAB Sucralfate (Sucralfate) 1 Gm Tablet 1 GM PO ACHS TAB Vilazodone Hydrochloride (Viibryd) 20 Mg Tablet 20 MG PO DAILY TAB Zolpidem Tartrate (Zolpidem Tartrate) 5 Mg Tablet 5 MG PO HS TAB Discontinued Medications: Amlodipine Besylate (Amlodipine Besylate) 5 Mg Tablet 5 MG PO HS TAB Patient Instructions Goal/Follow Up Appt: You have a follow up with Dr Kent on May 19 @ 140pm at [facility] Patient Instructions: -Please review your medications because you have some new medications to take for your blood pressure - It is very important for you to limit your salt intake because of your blood pressure Return to The Hospital For: Chest pain shortness of breath Stroke symptoms Worsening headache Activity & Diet Discharge Diet: Low Sodium Diet Activity as Tolerated: Yes Copy Copies To 1: DESIREE KENT MD, HOLLY R MD May 12, 2016 11:48
--- NOTE | 2016-05-12 11:56 | Discharge Summary ---
Diagnosis/Chief Complaint Date of Admission May 10, 2016 at 16:05 Date of Discharge 05/12/2016 Admission Diagnosis Admission Diagnosis Acute chest pain Hypertensive urgency Paroxysmal Atrial fibrillation Anxiety and depression Discharge Diagnosis Same as Above Chief Complaint/HPI Chief Complaint/HPI 55 yo F that presented to ER with chest pain that started 1 hour prior to arriving at ER. Patient stated that the pain was a heavy pain that was similar to the pain she had in Feb when she had the cath. States that she had chest pain the day before but it went away on its own. She denies the pain moving up her jaw or down her arm Denies any burning in her throat. Pain worsens when she gets up and ambulates. She had taken ASA prior to arriving in the ER. States that she had taken her blood pressure medications prior to coming in the ER. Discharge Summary-Simple/Stand Procedures Renal US with Dopplers: no signs of Renal Artery Stenosis Consultations Cardiology: Dr Gerardo Discharge Physical Examination Allergies: Coded Allergies: amitriptyline (Unverified Allergy, Unknown, CAUSED SLURRED SPEECH, 08/15/15) Vitals & I&Os Vital Sign - Last 12Hours Date Time Temp Pulse Resp B/P Pulse Ox O2 Delivery O2 Flow Rate FiO2 05/12/16 04:00 98.1 67 18 167/98 95 Room Air Intake and Output 05/12/16 00:00 Intake Total 1210 ml Output Total 1300 ml Balance -90 ml General Appearance: Alert, Oriented X3, Cooperative, No Acute Distress HEENT: Atraumatic, PERRLA, EOMI, Mucous Memb Moist/[place] Respiratory: Clear to Auscultation, Normal Air Movement Cardiovascular: Regular Rate, Normal S1, Normal S2, No Murmurs Abdominal: Normal Bowel Sounds, Soft, No Tenderness, No Hepatosplenomegaly, No Masses Extremities: No Clubbing, No Cyanosis, No Edema, Normal Pulses, No Tenderness/ Swelling Skin: No Rashes, No Breakdown Neuro: Normal Gait, Normal Speech, Strength at 5/5 X4 Ext, Sensation Intact, Cranial Nerves 3-12 NL Psych/Mental Status: Mental Status NL, Mood NL Hospital Course See final discharge diagnosis. Labs Laboratory Tests Test 05/12/16 04:10 Range/Units Anion Gap 12 5-14 MMOL/L BUN/Creatinine Ratio 11 Basophils # (Auto) 0.0 0.0-0.1 10^3/uL Basophils (%) (Auto) 1 0-10 % Blood Urea Nitrogen 8 7-18 MG/DL Calcium Level 9.1 8.5-10.1 MG/DL Carbon Dioxide Level 25 21-32 MMOL/L Chloride Level 98 98-107 MMOL/L Creatinine 0.73 0.60-1.30 MG/DL Eosinophils # (Auto) 0.2 0.0-0.3 10^3/uL Eosinophils (%) (Auto) 2 0-10 % Estimat Glomerular Filtration Rate > 60 Glucose Level 105 70-105 MG/DL Hematocrit 38 35-52 % Hemoglobin 12.8 11.5-16.0 G/DL Hemoglobin A1c 5.5 4.5-6.2 % Lymphocytes # (Auto) 2.0 1.0-4.0 X 10^3 Lymphocytes (%) (Auto) 27 12-44 % Mean Corpuscular Hemoglobin 29 25-34 PG Mean Corpuscular Hemoglobin Concent 33 32-36 G/DL Mean Corpuscular Volume 87 80-99 FL Mean Platelet Volume 9.8 7.4-10.4 FL Monocytes # (Auto) 0.6 0.0-1.0 X 10^3 Monocytes (%) (Auto) 8 0-12 % Neutrophils # (Auto) 4.6 1.8-7.8 X 10^3 Neutrophils (%) (Auto) 62 42-75 % Platelet Count 248 130-400 10^3/uL Potassium Level 3.5 L 3.6-5.0 MMOL/L Red Blood Count 4.40 4.35-5.85 10^6/uL Red Cell Distribution Width 13.5 10.0-14.5 % Sodium Level 135 135-145 MMOL/L White Blood Count 7.4 4.3-11.0 10^3/uL Pending Labs None Radiology Reviewed Abdominal US with renal Dopplers: No signs of stenosis Discussion & Recommendations 55 yo F that was admitted for chest pain found to have hypertensive urgency. CE trended x 3 neg. Patient required some blood pressure medication adjustments including increasing her Norvasc to 10 mg and added a diuretic HCTZ. Blood pressure was better controlled at time of discharge. Patient was also seen by her artist agent Dr Gerardo who helped manage patient while she was admitted. Patient never had abnormalities present on ECG. She was discharged with close follow up with PCP Dr Kent and Pulmonary Fellow Dr Gerardo. Discharge Condition at discharge Stable Instructions to patient/family Please see electonic discharge instructions given to patient. Discharge Medications Reviewed and agree with Discharge Medication list on patient's Discharge Instruction sheet Clinical Quality Measures AMI/AHF: ASA po Prior to arrival: Yes DVT/VTE Risk/Contraindication: Risk Factor Score Per Nursin RFS Level Per Nursing on Admit: 2=Moderate Copy Copies To 1: DESIREE KENT MD; Rita GERARDO MD, HOLLY R MD May 12, 2016 11:56
[2016-05-12 12:18] VITALS: BP 149/87
--- NOTE | 2016-05-12 13:55 | Cardiology Progress Note ---
Cardiology SOAP Progress Note Subjective: stable Objective: I&O/Vital Signs Vital Sign - Last 12Hours 05/12/16 05/12/16 05/12/16 05/12/16 02:20 04:00 04:00 07:00 Temp 98.1 Pulse 67 66 Resp 18 B/P 162/92 167/98 Pulse Ox 95 O2 Delivery Room Air Room Air 05/12/16 05/12/16 05/12/16 05/12/16 08:00 09:00 11:40 12:00 Temp 97.6 99.9 Pulse 70 75 Resp 17 20 B/P 160/94 149/87 Pulse Ox 99 99 99 O2 Delivery Room Air Room Air Room Air Room Air 05/12/16 12:18 Pulse 75 Resp 20 B/P 149/87 Pulse Ox 99 Intake and Output 05/12/16 00:00 Intake Total 1210 ml Output Total 1300 ml Balance -90 ml Weight (Pounds): 259 Weight (Ounces): 8.0 Weight (Calculated Kilograms): [id number] Constitutional: No appears stated age, No AAO x 3, No apparent distress, No PERRL, No well-developed, No well-nourished, No other Respiratory: No accessory muscle use, No respiratory distress, No chest tender , No chest expansion is symmetric, No chest is bilaterally symmetric, No lungs clear to percussion, No lungs clear to auscultation, No crackles, No rhonchi, No rales, No stridor, No wheezing, No pleural rub, No other Cardiovascular: No regular rate-rhythm, No irregularly irregular, No extra beats, No parasternal heave is noted, No JVD, No edema, No bradycardia, No tachycardia, No point of maximal impulse, No cardiac thrills are palpable, No S1 and S2, No gallop/S3, No gallop/S4, No diastolic murmur, No systolic murmur, No friction rub, No click, No other Gastrointestional: No tender, No soft, No round, No distended, No pulsatile mass, No organomegaly, No guarding, No rebound, No tenderness, No hernia, No mass, No audible bowel sounds, No abnormal bowel sounds, No abdominal bruits, No spleenomegaly, No other Extremities: No normal range of motion, No non-tender, No normal inspection, No pedal edema, No calf tenderness, No normal capillary refill, No pelvis stable , No calf tenderness, No inflammation, No pedal edema, No slow capillary refill , No swelling, No other, No abrasion, No clubbing, No cyanosis, No ecchymosis, No laceration, No no lower extremity edema bilateral, No significant edema, No tenderness, No wound Neurologic/Psychiatric: No wireless consultant II-XII nml as tested, No no motor/sensory deficits, No alert, No normal mood/affect, No oriented x 3, No abnormal cerebellar tests, No abnormal wireless consultant II-XII, No abnormal gait, No aphasia, No EOM palsy, No facial droop, No motor weakness, No sensory deficit, No depressed affect, No disoriented x 3, No other, No grossly intact, No power is 5/5 both on sides Skin: No normal color, No warm/dry, No cyanosis, No cool, No diaphoresis, No damp, No ecchymosis, No jaundice, No mottled, No pallor, No rash, No tattoos/ piercings, No ulcerations, No rash on exposed areas, No ulcerations on exposed areas, No other Results/Procedures: Labs Laboratory Tests 05/12/16 04:10: Anion Gap 12, BUN/Creatinine Ratio 11, Basophils # (Auto) 0.0, Basophils (%) ( Auto) 1, Blood Urea Nitrogen 8, Calcium Level 9.1, Carbon Dioxide Level 25, Chloride Level 98, Creatinine 0.73, Eosinophils # (Auto) 0.2, Eosinophils (%) ( Auto) 2, Estimat Glomerular Filtration Rate > 60, Glucose Level 105, Hematocrit 38, Hemoglobin 12.8, Hemoglobin A1c 5.5, Lymphocytes # (Auto) 2.0, Lymphocytes ( %) (Auto) 27, Mean Corpuscular Hemoglobin 29, Mean Corpuscular Hemoglobin Concent 33, Mean Corpuscular Volume 87, Mean Platelet Volume 9.8, Monocytes # ( Auto) 0.6, Monocytes (%) (Auto) 8, Neutrophils # (Auto) 4.6, Neutrophils (%) ( Auto) 62, Platelet Count 248, Potassium Level 3.5L, Red Blood Count 4.40, Red Cell Distribution Width 13.5, Sodium Level 135, White Blood Count 7.4 A/P: Assessment/Dx: afib -> SR, HTN, Chest pain Plan: afib - in sinus rhythm , s/p Cardioversion. chest pain - no significant disease on recent cath. HTN - add amlodipine, continue other meds. BP today systolic 160. add hctz 12.5mg daily and can be discharged to follow with Dr Verduzco and myself.. Thank you for your consultation. Please call me if you have any questions. Augie Gerardo MD, FACP, FACC, FSCAI, FHRS, CCDS Interventional Cardiology Cardiac Electrophysiology Vascular Medicine and Endovascular Interventions Clinical Quality Measures AMI/AHF: ASA po Prior to arrival: Yes Rita GERARDO MD May 12, 2016 1:55 pm
[2016-05-12] MEDS ORDERED: amLODIPine 10 MG (NORVASC) TAB PO SCH (21:00)
[2016-05-13] MEDS ORDERED: HYDROCHLOROTHIAZIDE 12.5 MG (HCTZ) CAP PO SCH (09:00)
== END 2016-05-12 11:44 | disposition home or self-care (01) ==
LOC: EDUNIT# 14:39 → ER 14:41 → UNDOADMOB 16:05 → ICU 16:05 → CSD 05-11 03:00 → UNDODISOB 05-12 12:20
PROVIDERS: ADMIT Family Medicine; ATTEND Family Medicine
DX: R07.89 Other chest pain (principal); I16.0 Hypertensive urgency; I10 Essential (primary) hypertension; I48.0 Paroxysmal atrial fibrillation; J45.909 Unspecified asthma, uncomplicated; G47.30 Sleep apnea, unspecified; K21.9 Gastro-esophageal reflux disease without esophagitis; F41.9 Anxiety disorder, unspecified; F32.9 Major depressive disorder, single episode, unspecified; Z79.899 Other long term (current) drug therapy; Z83.3 Family history of diabetes mellitus
CPT/HCPCS: 36415; 71010; 80048; 80053; 80061; 80156; 82150; 82550; 82553; 83036; 83690; 83735; 83880; 84484; 85025; 85610; 85730; 93005; 93041; 93975; G0378

== ENCOUNTER 2016-05-16 13:11 | Emergency (ER) | payer MEDICARE, OTHER ==
[~2016-05-16] VITALS: Ht 170.2 cm; Wt 125.6 kg
[~2016-05-16 13:11] MED LIST changes: +AMLO10TA2 PO; +AMLO5TAB2 PO; +POTA20TA8 PO; +VILA20TA PO
--- NOTE | 2016-05-16 14:20 | ED General ---
General Chief Complaint: Chest Pain Stated Complaint: CHEST PAIN Nursing Triage Note: Amb arrival for chest pain, reports pain started at 1300 yesterday in center of chest and not going away. Dismissed 05/12/16 from admission for chest pain. Reports no blockages just HTN Nursing Sepsis Screen: No Definite Risk Source of Information: Patient Exam Limitations: No Limitations History of Present Illness Time Seen by Provider: 14:20 Initial Comments 55 yo female patient presents to the ED with c/o central chest pain beginning yesterday at 1300. Reports pain is constant. Patient was dismissed on from [facility] for chest pain. April 16 the patient had a cardiac catheterization that was negative. Denies pain radiating into the neck or arms. Does c/o poor appetite and nausea w/o vomiting. Patient states she has not had anything to eat today, "I have been drinking a ton of water today". Timing/Duration: 24 Hours, Constant Modifying Factors: worse with Other (denies modifying factors) Allergies and Home Medications Allergies Coded Allergies: amitriptyline (Unverified Allergy, Unknown, CAUSED SLURRED SPEECH, 08/15/15) Home Medications Albuterol Sulfate 8.5 Gm Hfa.aer.ad 1-2 PUFF IH Q4H PRN PRN SHORTNESS OF BREATH (Reported) Alprazolam 0.5 Mg Tablet 0.5 MG PO BID PRN PRN ANXIETY (Reported) Amlodipine Besylate 10 Mg Tablet #30 10 MG PO HS Prescribed by: ELIZABETH SERNA on 05/12/16 1143 Aripiprazole 5 Mg Tablet 5 MG PO DAILY (Reported) Buspirone HCl 10 Mg Tablet 10 MG PO DAILY (Reported) Buspirone HCl 10 Mg Tablet 20 MG PO HS (Reported) TAKES 2 (10MG) TABLETS Carbamazepine 200 Mg Tablet 200 MG PO DAILY (Reported) TAKES FOR FACIAL TWITCHES, NOT SEIZURES Carbamazepine 200 Mg Tablet 400 MG PO HS (Reported) TAKES 2 (200MG) TABLETS Diltiazem HCl 240 Mg Cap.er.24h 240 MG PO HS (Reported) Famotidine 20 Mg Tablet #30 20 MG PO BID Prescribed by: MADDIE HALL on 05/16/16 1649 Fluticasone Propionate 16 Gm [place].susp 1 SPRAY NS DAILY PRN PRN ALLERGIES ( Reported) Hydrochlorothiazide 12.5 Mg Capsule #30 12.5 MG PO DAILY@0900 Prescribed by: ELIZABETH SERNA on 05/12/16 1143 Lisinopril 40 Mg Tablet 40 MG PO DAILY (Reported) Metoprolol Succinate 50 Mg Tab.er.24h 50 MG PO HS (Reported) Nortriptyline HCl 25 Mg Capsule 50 MG PO HS (Reported) TAKES 2 (25 MG) CAPSULES Nystatin 15 Gm Cream..g. TP BID (Reported) Pantoprazole Sodium 40 Mg Tablet.dr 40 MG PO HS (Reported) Potassium Chloride 20 Meq Tab.er.prt #30 20 MEQ PO DAILY Prescribed by: ELIZABETH SERNA on 05/12/16 1143 Rivaroxaban 20 Mg Tablet 20 MG PO HS (Reported) Sucralfate 1 Gm Tablet 1 GM PO ACHS (Reported) Vilazodone Hydrochloride 20 Mg Tablet 20 MG PO DAILY (Reported) Zolpidem Tartrate 5 Mg Tablet 5 MG PO HS (Reported) Constitutional: No chills, No diaphoresis, No dizziness, No fever, No malaise EENTM: no symptoms reported Respiratory: No cough, No dyspnea on exertion, No orthopnea, No phlegm, No short of breath Cardiovascular: see HPI chest painNo edema, No palpitations, No syncope Gastrointestinal: No abdominal pain, No constipation, No diarrhea, No heartburn , loss of appetiteNo melena, nauseaNo vomiting Genitourinary: No decreased output, No dysuria, No frequency, No hematuria, No pain Musculoskeletal: no symptoms reported Skin: no symptoms reported Psychiatric/Neurological: No Symptoms Reported All Other Systems Reviewed Negative Unless Noted: Yes (Negative excepted noted.) Past Uxtooim-Nodgao-Hwmdlb Hx Patient Social History Alcohol Use: Denies Use Recreational Drug Use: No Smoking Status: Never a Smoker Recent Foreign Travel: No Contact w/Someone Who Travel: No Recent Infectious Disease Expo: No Recent Hopitalizations: Yes (03/08/16 FOR A-FIB) Physical Abuse Screen: No Sexual Abuse: No Immunizations Up To Date Tetanus Booster (TDap): More than 5yrs PED Vaccines UTD: Yes Date of Pneumonia Vaccine: May 10, 2013 Date of Influenza Vaccine: Feb 25, 2016 Seasonal Allergies Seasonal Allergies: Yes Surgeries HX Surgeries: Yes (cyst from right armpit removed with skin graft, LEFT SINUS SX) Respiratory Hx Respiratory Disorders: Yes (ASTHMA-MILD, SLEEP APNEA-CPAP) Respiratory Disorders: Asthma, Sleep Apnea Cardiovascular Hx Cardiac Disorders: Yes Cardiac Disorders: Atrial Fibrillation, Hypertension Neurological Hx Neurological Disorders: No Reproductive System Hx Reproductive Disorders: No Sexually Transmitted Disease: No HIV/AIDS: No Female Reproductive Disorders: Denies Genitourinary Hx Genitourinary Disorders: No Gastrointestinal Hx Gastrointestinal Disorders: Yes Gastrointestinal Disorders: Gastroesophageal Reflux, Chronic Constipation, Irritable Bowel Musculoskeletal Hx Musculoskeletal Disorders: Yes Musculoskeletal Disorders: Arthritis Endocrine Hx Endocrine Disorders: No HEENT HX ENT Disorders: Yes (KERATO-CONUS) Loss of Vision: Denies Hearing Impairment: Denies Cancer Hx Cancer: No Psychosocial Hx Psychiatric Problems: Yes Behavioral Health Disorders: Anxiety, Depression Integumentary HX Skin/Integumentary Disorder: No Blood Transfusions Hx Blood Disorders: No Reviewed Nursing Assessment Reviewed/Agree w Nursing PMH: Yes Family Medical History Significant Family History: No Pertinent Family Hx Family Medial History: Alcoholism Cancer Cancer of colon Cataract Dementia Family history: Alzheimer's disease Family history: Arthritis Family history: Diabetes mellitus Family history: Hypertension Family history: Osteoporosis Heart disease History of - anemia History of - respiratory disease Hypercholesterolemia Myocardial infarction Visual impairment No Family History of: Abdominal aortic aneurysm Holyrood's disease Aphasia Chest pain Congenital heart disease Congestive heart failure Cystic fibrosis Dysphagia Family history: Allergy Family history: Asthma Family history: Breast disease Family history: Cardiovascular disease Family history: Coronary thrombosis Family history: Gastrointestinal disease Family history: Glaucoma Family history: Thyroid disorder Headache Hearing loss Hereditary disease History of - disorder History of drug abuse Human immunodeficiency virus (HIV) seropositivity Infertile Kidney disease Malignant neoplasm of lung Parkinson's disease Prostate cancer Psychotic disorder Seizure disorder Stroke Tuberculosis Physical Exam Vital Signs Vital Sign - Last 12Hours 05/16/16 05/16/16 13:15 17:09 Temp 98.4 Pulse 94 Resp 20 B/P 187/92 Pulse Ox 100 O2 Delivery Nasal Cannula O2 Flow Rate 2 Capillary Refill : Less Than 3 Seconds General Appearance: No Apparent Distress WD/WN HEENT: PERRL/EOMI Pharynx Normal Neck: Normal Inspection Supple Respiratory: Lungs Clear Normal Breath Sounds No Respiratory Distress Cardiovascular: Regular Rate, Rhythm No Murmur Normal Peripheral Pulses Gastrointestinal: Normal Bowel Sounds No Organomegaly SoftNo Distended, Guarding (mild guarding RUQ and epigastric. (+) gonzalez's sign.)No Rebound, Tenderness Back: Normal Inspection No CVA Tenderness Extremity: Normal Capillary Refill No Calf Tenderness No Pedal Edema Neurologic/Psychiatric: Alert Oriented x3 Other (flat affect.) Skin: Normal Color Warm/Dry Progress/Results/Core Measures Results/Orders Lab Results Laboratory Tests Test 05/16/16 13:37 05/16/16 15:30 Range/Units Activated Partial Thromboplast Time 36 H 24-35 SEC Alanine Aminotransferase (ALT/SGPT) 45 0-55 U/L Albumin 4.3 3.2-4.5 G/DL Alkaline Phosphatase 146 H 40-136 U/L Anion Gap 10 5-14 MMOL/L Aspartate Amino Transf (AST/SGOT) 26 5-34 U/L BUN/Creatinine Ratio 13 Basophils # (Auto) 0.0 0.0-0.1 10^3/uL Basophils (%) (Auto) 0 0-10 % Blood Urea Nitrogen 9 7-18 MG/DL Calcium Level 9.0 8.5-10.1 MG/DL Carbon Dioxide Level 24 21-32 MMOL/L Chloride Level 91 L 98-107 MMOL/L Creatinine 0.68 0.60-1.30 MG/DL Eosinophils # (Auto) 0.1 0.0-0.3 10^3/uL Eosinophils (%) (Auto) 2 0-10 % Estimat Glomerular Filtration Rate > 60 Glucose Level 110 H 70-105 MG/DL Hematocrit 39 35-52 % Hemoglobin 13.7 11.5-16.0 G/DL INR Comment 0.9 0.8-1.4 Lipase 27 8-78 U/L Lymphocytes # (Auto) 1.0 1.0-4.0 X 10^3 Lymphocytes (%) (Auto) 21 12-44 % Magnesium Level 2.1 1.8-2.4 MG/DL Mean Corpuscular Hemoglobin 29 25-34 PG Mean Corpuscular Hemoglobin Concent 35 32-36 G/DL Mean Corpuscular Volume 83 80-99 FL Mean Platelet Volume 10.5 H 7.4-10.4 FL Monocytes # (Auto) 0.7 0.0-1.0 X 10^3 Monocytes (%) (Auto) 13 H 0-12 % Neutrophils # (Auto) 3.2 1.8-7.8 X 10^3 Neutrophils (%) (Auto) 64 42-75 % Platelet Count 267 130-400 10^3/uL Potassium Level 3.8 3.6-5.0 MMOL/L Prothrombin Time 12.3 12.2-14.7 SEC Red Blood Count 4.72 4.35-5.85 10^6/uL Red Cell Distribution Width 13.4 10.0-14.5 % Sodium Level 125 *L 135-145 MMOL/L TSH [place] Testing 1.93 0.35-4.94 UIU/ML Total Bilirubin 0.3 0.1-1.0 MG/DL Total Protein 7.4 6.4-8.2 G/DL Troponin I < 0.30 <0.30 NG/ML White Blood Count 4.9 4.3-11.0 10^3/uL Urine Bacteria MODERATE H /HPF Urine Bilirubin NEGATIVE NEGATIVE Urine Casts NONE /LPF Urine Clarity SLIGHTLY CLOUDY Urine Color YELLOW Urine Crystals NONE /LPF Urine Culture Indicated NO Urine Glucose (UA) NEGATIVE NEGATIVE Urine Ketones NEGATIVE NEGATIVE Urine Leukocyte Esterase NEGATIVE NEGATIVE Urine Mucus NEGATIVE /LPF Urine Nitrite NEGATIVE NEGATIVE Urine Protein NEGATIVE NEGATIVE Urine RBC NONE /HPF Urine RBC (Auto) NEGATIVE NEGATIVE Urine Specific [place] 1.005 L 1.016-1.022 Urine Squamous Epithelial Cells 25-50 H /HPF Urine Urobilinogen NORMAL NORMAL MG/DL Urine WBC 0-2 /HPF Urine pH 7 5-9 My Orders Orders-MADDIE HALL PA Cbc With Automated Diff (05/16/16 14:33) Comprehensive Metabolic Panel (05/16/16 14:33) Lipase (05/16/16 14:33) Thyroid Analyzer (05/16/16 14:33) Troponin I (05/16/16 14:33) Ua Culture If Indicated (05/16/16 14:33) Saline Lock/Iv-Start (05/16/16 14:33) Ekg Tracing (05/16/16 14:33) Monitor-Rhythm Ecg Trace Only (05/16/16 14:33) Us Gallbladder [id number] (05/16/16 14:33) Chest 1 View, Ap/Pa Only (05/16/16 14:33) Protime With Inr (05/16/16 14:33) Partial Thromboplastin Time (05/16/16 14:33) Saline Lock/Iv-Start (05/16/16 14:33) Ns Iv 1000 Ml (Sodium Chloride 0.9%) (05/16/16 14:33) Lidocaine 2% Viscous 15 Ml (Xylocaine Vi (05/16/16 14:45) Antacid Suspension (Mylanta Suspension (05/16/16 14:45) Famotidine Injection (Pepcid Injection) (05/16/16 14:33) Magnesium (05/16/16 13:37) Medications Given in ED Current Medications Medications Dose Ordered Sig/Delfino Route Start Time Stop Time Status Last Admin Dose Admin Al Hydrox/Mg Hydrox/Simethicone 30 ml ONCE ONCE PO 05/16/16 14:45 05/16/16 14:46 DC 05/16/16 14:45 30 ML Lidocaine HCl 15 ml ONCE ONCE PO 05/16/16 14:45 05/16/16 14:46 DC 05/16/16 14:45 15 ML Sodium Chloride 1,000 ml @ 0 mls/hr Q0M ONCE IV 05/16/16 14:33 05/16/16 14:35 DC 05/16/16 14:45 999 MLS/HR Vital Signs/I&O Vital Sign - Last 12Hours 05/16/16 05/16/16 05/16/16 13:15 13:15 17:09 Temp 98.4 98.4 Pulse 94 87 Resp 20 16 B/P 187/92 Pulse Ox 100 O2 Delivery Nasal Cannula Room Air Room Air O2 Flow Rate 2 Blood Pressure Mean: 123 ECG Initial ECG Impression Date: May 16, 2016 Initial ECG Impression Time: 13:20 Initial ECG Rate: 88 Initial ECG Rhythm: Normal Sinus Initial ECG Impression: Normal Initial ECG Comparisson: Unchanged Comment Normal sinus rhythm. ECG reviewed by Dr. Haider. Diagnostic Imaging Diagonstic Imaging: Xray Plain Films/CT/US/NM/MRI: chest Comments FINDINGS: Single view of the chest demonstrates clear lungs bilaterally. The heart size is normal. There is no pneumothorax. Osseous structures normal. IMPRESSION: Negative chest. Dictated by: Dictated on workstation # [id number] Reviewed: Reviewed by Me (radiology report reviewed by me) Diagonstic Imaging: Ultrasound Plain Films/CT/US/NM/MRI: other (gallbladder) Comments FINDINGS: Fatty infiltration throughout the liver is present. There is no mass or intrahepatic biliary duct dilatation. Common bile duct is normal at 6 mm. There is no cholelithiasis or cholecystitis. The pancreas and right kidney are normal. There is no ascites. IMPRESSION: 1. Mild fatty infiltration of liver. 2. No cholelithiasis or cholecystitis. Dictated by: Dictated on workstation # [id number] Reviewed: Reviewed by Me (radiology report reviewed by me) Departure Communication Progress Notes Laboratory findings discussed with the patient. Patient states she has been drinking "a lot" of water this AM. Patient does have a h/o depleting Na+ from over hydrating with water. 1639 Patient case discussed with Dr. Serna. Dr. Serna recommends dsch to home with f/u as an outpatient this week for recheck and repeat labs. Recommendations by Dr. Serna discussed with the patient. Patient reports feeling better with medications and IVF given in the ED. Proceed with dsch to home. Patient states she has an appointment 05/19/[address] Spence for f/u. Patient advised to keep that appointment . Patient case discussed with Dr. Haider, he agrees with the plan of care. Impression Impression: Primary Impression: Non-cardiac chest pain Additional Impressions: Gastritis Upper abdominal pain Hyponatremia Disposition: HOME, SELF-CARE Condition: Improved Departure-Patient Inst. Decision time for Depature: 16:47 Referrals: DESIREE SPENCE MD (PCP/Family) Primary Care Physician Patient Instructions: Chest Pain That Is Not Caused by the Heart (DC), Gastritis (DC), Ulcer and Gastritis Diet Add. Discharge Instructions: All discharge instructions reviewed with patient and/or family. Voiced understanding. Medications as directed. Continue usual home medications. Drink plenty of fluids. Increase salt in your diet. Avoid ibuprofen, aleve, spicy foods, fatty foods, carbonated beverages, caffeinated beverages. Do not eat within 2 hours of lying down. Follow-up with Dr. Spence 05/19 as previously scheduled. Repeat labs in Dr. Spence's office to recheck sodium. Return to the emergency department for worsened symptoms or any other concerns. Scripts Famotidine (Pepcid)20 Mg [id number] Mg PO BID #30 TAB Ref 0 Prov:MADDIE HALL 05/16/16 MADDIE HALL May 16, 2016 14:20
[2016-05-16] MEDS ORDERED: FAMOTIDINE 20MG/2ML IV (PEPCID) IV STA (14:33)
[2016-05-16] MEDS ORDERED: NS IV 1000 ML 1,000 ML IV ONE (14:33)
[2016-05-16 14:42] LABS: BASOPHILS % (AUTO) 0 % (0-10); EOSINOPHILS # (AUTO) 0.1 10^3/uL (0.0-0.3); EOSINOPHILS % (AUTO) 2 % (0-10); LYMPHOCYTES % (AUTO) 21 % (12-44); MEAN CORPUSCULAR HEMOGLOBIN 29 PG (25-34); MEAN CORPUSCULAR HGB CONC 35 G/DL (32-36); MEAN CORPUSCULAR VOLUME 83 FL (80-99); MEAN PLATELET VOLUME 10.5 FL (7.4-10.4); MONOCYTES # (AUTO) 0.7 X 10^3 (0.0-1.0); MONOCYTES % (AUTO) 13 % (0-12); NEUTROPHILS # (AUTO) 3.2 X 10^3 (1.8-7.8); NEUTROPHILS % (AUTO) 64 % (42-75); PLATELET COUNT 267 10^3/uL (130-400); RED BLOOD COUNT 4.72 10^6/uL (4.35-5.85); RED CELL DISTRIBUTION WIDTH 13.4 % (10.0-14.5); WHITE BLOOD COUNT 4.9 10^3/uL (4.3-11.0)
[2016-05-16 14:44] LABS: INR 0.9 (0.8-1.4); PROTHROMBIN TIME PATIENT 12.3 SEC (12.2-14.7)
[2016-05-16] MEDS ORDERED: LIDOCAINE 2% VISCOUS 15 ML UDC PO ONE (14:45)
[2016-05-16] MEDS ORDERED: ANTACID SUSP 30 ML UDC (MYLANTA) PO ONE (14:45)
--- NOTE | 2016-05-16 14:54 | Diagnostic Imaging Report ---
INDICATION: Chest pain COMPARISON: 05/10/16 FINDINGS: Single view of the chest demonstrates clear lungs bilaterally. The heart size is normal. There is no pneumothorax. Osseous structures normal. IMPRESSION: Negative chest. Dictated by: Dictated on workstation # [id number]
[2016-05-16 14:58] LABS: ALANINE AMINOTRANSFERASE 45 U/L (0-55); ALBUMIN 4.3 G/DL (3.2-4.5); ANION GAP 10 MMOL/L (5-14); ASPARTATE AMINO TRANSFERASE 26 U/L (5-34); BILIRUBIN,TOTAL 0.3 MG/DL (0.1-1.0); BLOOD UREA NITROGEN 9 MG/DL (7-18); BUN/CREATININE RATIO 13; CARBON DIOXIDE 24 MMOL/L (21-32); CHLORIDE 91 MMOL/L (98-107); CREATININE SERUM 0.68 MG/DL (0.60-1.30); GFR ESTIMATED > 60; GLUCOSE 110 MG/DL (70-105); LIPASE 27 U/L (8-78); MAGNESIUM 2.1 MG/DL (1.8-2.4); POTASSIUM 3.8 MMOL/L (3.6-5.0); TOTAL PROTEIN 7.4 G/DL (6.4-8.2)
[2016-05-16 15:00] LABS: SODIUM 125 MMOL/L (135-145)
[2016-05-16 15:18] LABS: TROPONIN I < 0.30 NG/ML (<0.30)
--- NOTE | 2016-05-16 15:42 | Diagnostic Imaging Report ---
PROCEDURE: US Gallbladder. TECHNIQUE: Multiple real-time grayscale images were obtained over the right upper quadrant in various projections. INDICATION: Right upper quadrant abdominal pain. COMPARISON: None. FINDINGS: Fatty infiltration throughout the liver is present. There is no mass or intrahepatic biliary duct dilatation. Common bile duct is normal at 6 mm. There is no cholelithiasis or cholecystitis. The pancreas and right kidney are normal. There is no ascites. IMPRESSION: 1. Mild fatty infiltration of liver. 2. No cholelithiasis or cholecystitis. Dictated by: Dictated on workstation # [id number]
[2016-05-16 15:46] LABS: BILIRUBIN,URINE NEGATIVE (NEGATIVE); KETONES,URINE NEGATIVE (NEGATIVE); LEUKOCYTE ESTERASE ,URINE NEGATIVE (NEGATIVE); NITRITE,URINE NEGATIVE (NEGATIVE); PH,URINE 7 (5-9); PROTEIN,URINE NEGATIVE (NEGATIVE); UROBILINOGEN,URINE NORMAL (NORMAL)
[2016-05-16 16:02] LABS: SQUAMOUS EPITHELIAL CELL,UR 25-50 /HPF; WBC,URINE 0-2 /HPF
[2016-05-16] MEDS ORDERED: FAMO-119 PO (16:49)
[2016-05-16 17:09] VITALS: BP 154/80
== END 2016-05-16 17:09 | disposition home or self-care (01) ==
LOC: EDUNIT# 13:11 → ER 13:12
DX: R07.89 Other chest pain (principal); K29.70 Gastritis, unspecified, without bleeding; R10.13 Epigastric pain; E87.1 Hypo-osmolality and hyponatremia; K76.0 Fatty (change of) liver, not elsewhere classified; I10 Essential (primary) hypertension; Z79.899 Other long term (current) drug therapy
CPT/HCPCS: 36415; 71010; 76705; 80053; 81000; 83690; 83735; 84443; 84484; 85025; 85610; 85730; 93005; 93041; 96361; 96374

== ENCOUNTER 2016-07-01 07:56 | Day surgery (SDC) | payer MEDICARE, OTHER ==
[~2016-07-01] VITALS: Ht 170.2 cm; Wt 125.9 kg
[~2016-07-01 07:56] MED LIST changes: +FAMO-119 PO
[2016-07-01 08:18] VITALS: BP 141/81
[2016-07-01] MEDS ORDERED: LIDOCAINE 1% INJ 20 ML (XYLOCAINE) VIAL ONE (08:31)
[2016-07-01] MEDS ORDERED: NEO/POLY/BAC (NEOSPORIN) OINT 15 GM TUBE ONE (09:04)
[2016-07-01 09:34] VITALS: BP 134/74
--- NOTE | 2016-07-02 11:12 | PROCEDURE REPORT ---
PROCEDURE PHYSICIAN: FATOUMATA GERARDO IMPLANTATION OF LOOP RECORDER DATE OF PROCEDURE: 07/01/2016 PERFORMING PHYSICIAN: Dr. Aashish Gerardo PRIMARY PHYSICIAN: Dr. Lucinda Kent SITE OF SERVICE: [facility] INDICATION: Atrial fibrillation. PREOPERATIVE DIAGNOSIS: Atrial fibrillation. POSTOPERATIVE DIAGNOSIS: Atrial fib fibrillation, status post implantation of Biotronik loop recorder. PROCEDURE DETAILS: The patient is a 55-year-old lady with history of atrial fibrillation. A 30 day event monitor was previously performed. skilled nursing monitoring for atrial fibrillation is recommended. Implantable loop recorder was discussed and agreed with the patient. Informed consent was taken. All the risks and complications were discussed at length. The patient was draped and prepped in the usual sterile fashion. Local anesthesia was lidocaine, which was given in the substernal area close to the 4th intercostal space. Biotronik loop recorder was implanted according to the protocol. 2-0 silk sutures were used for 3 interrupted sutures. Dermabond, Bacitracin and Steri-Strips were placed at the end of the procedure. There were no complications. The patient tolerated the procedure well. The device was interrogated and the RV voltage of 0.81 mV. ANESTHESIA: Local anesthesia with lidocaine. COMPLICATIONS: None. CONTRAST/FLUOROSCOPY: None. CONCLUSION: 1. Successful implantation offer Biotronik loop recorder for atrial fibrillation. 2. No complication and the patient tolerated the procedure well. 3. Suture removal in one week. Job ID: [id number] Dictated Date: 07/01/2016 09:38:37 Endoscopy Rn Date: 07/02/2016 11:05:50 / franklin PA
--- NOTE | 2016-07-14 10:15 | History & Physicial-Cardiolgy ---
HPI-Cardiology Cardiology Consultation: Date of Consultation 07/14/16 Date of Admission Attending Physician Rita Gerardo MD Admitting Physician Lucinda Kent MD Consulting Physician Rita GERARDO MD HPI: Chief Complaint: Atrial fibrillation History of atrial fibrillation. 30 day event monitor did not show any significant episodes. Long-term surveillance of atrial fibrillation is recommended. Review of Systems-Cardiology Review of Systems Constitutional: As described under HPI Eyes: No blurred vision, No drainage, No pain, No vision change Ears/Nose/Throat: No ear discharge, No ear pain, No nasal drainage, No ulcerations Respiratory: As described under HPI Cardiovascular: As described under HPI Gastrointestinal: No constipation, No diarrhea, No nausea, No vomiting, No stool coloration changes Genitourinary: No dysuria, No discharge, No frequency, No hematuria, No urgency Skin: No rash, No skin related problems, No ulcerations Psychiatric/Neurological: No anxiety, No depression, No focal weakness, No seizure, No syncope Hematologic: No bleeding abnormalities BHR-Fofzjo-Rysmsr Hx Patient Social History Recent Foreign Travel: No Recent Infectious Disease Expo: No Immunizations Up To Date Tetanus Booster (TDap): More than 5yrs Date of Pneumonia Vaccine: May 10, 2013 Date of Influenza Vaccine: Feb 25, 2016 Past Medical History PMH As described under Assessment. Family Medical History Family History: Alcoholism Cancer Cancer of colon Cataract Dementia Family history: Alzheimer's disease Family history: Arthritis Family history: Diabetes mellitus Family history: Hypertension Family history: Osteoporosis Heart disease History of - anemia History of - respiratory disease Hypercholesterolemia Myocardial infarction Visual impairment No Family History of: Abdominal aortic aneurysm Kenny's disease Aphasia Chest pain Congenital heart disease Congestive heart failure Cystic fibrosis Dysphagia Family history: Allergy Family history: Asthma Family history: Breast disease Family history: Cardiovascular disease Family history: Coronary thrombosis Family history: Gastrointestinal disease Family history: Glaucoma Family history: Thyroid disorder Headache Hearing loss Hereditary disease History of - disorder History of drug abuse Human immunodeficiency virus (HIV) seropositivity Infertile Kidney disease Malignant neoplasm of lung Parkinson's disease Prostate cancer Psychotic disorder Seizure disorder Stroke Tuberculosis Allergies and Home Medications Allergies Coded Allergies: amitriptyline (Unverified Allergy, Unknown, CAUSED SLURRED SPEECH, 08/15/15) Home Medications Albuterol Sulfate 8.5 Gm Hfa.aer.ad 1-2 PUFF IH Q4H PRN PRN SHORTNESS OF BREATH (Reported) Alprazolam 0.5 Mg Tablet 0.5 MG PO BID PRN PRN ANXIETY (Reported) Amlodipine Besylate 10 Mg Tablet #30 10 MG PO HS Prescribed by: ELIZABETH SERNA on 05/12/16 1143 Aripiprazole 5 Mg Tablet 5 MG PO DAILY (Reported) Buspirone HCl 10 Mg Tablet 10 MG PO DAILY (Reported) Buspirone HCl 10 Mg Tablet 20 MG PO HS (Reported) TAKES 2 (10MG) TABLETS Carbamazepine 200 Mg Tablet 200 MG PO DAILY (Reported) TAKES FOR FACIAL TWITCHES, NOT SEIZURES Carbamazepine 200 Mg Tablet 400 MG PO HS (Reported) TAKES 2 (200MG) TABLETS Diltiazem HCl 240 Mg Cap.er.24h 240 MG PO HS (Reported) Famotidine 20 Mg Tablet #30 20 MG PO BID Prescribed by: MADDIE HALL on 05/16/16 1649 Fluticasone Propionate 16 Gm [place].susp 1 SPRAY NS DAILY PRN PRN ALLERGIES ( Reported) Hydrochlorothiazide 12.5 Mg Capsule #30 12.5 MG PO DAILY@0900 Prescribed by: ELIZABETH SERNA on 05/12/16 1143 Lisinopril 40 Mg Tablet 40 MG PO DAILY (Reported) Metoprolol Succinate 50 Mg Tab.er.24h 50 MG PO HS (Reported) Nortriptyline HCl 25 Mg Capsule 50 MG PO HS (Reported) TAKES 2 (25 MG) CAPSULES Nystatin 15 Gm Cream..g. TP BID (Reported) Pantoprazole Sodium 40 Mg Tablet.dr 40 MG PO HS (Reported) Potassium Chloride 20 Meq Tab.er.prt #30 20 MEQ PO DAILY Prescribed by: ELIZABETH SERNA on 05/12/16 1143 Rivaroxaban 20 Mg Tablet 20 MG PO HS (Reported) Sucralfate 1 Gm Tablet 1 GM PO ACHS (Reported) Vilazodone Hydrochloride 20 Mg Tablet 20 MG PO DAILY (Reported) Zolpidem Tartrate 5 Mg Tablet 5 MG PO HS (Reported) Physical Exam-Cardiology Physical Exam Vital Signs/I&O Capillary Refill : Constitutional: appears stated ageNo apparent distress, well-developed well- nourished HEENT: PERRLNo discharge, hearing is well preserved oral hygience is goodNo ulceration, No xanthelasmas are seen Neck: No carotid bruit, carotid pulses are 2 + bilaterally Gastrointestinal: No spleenomegaly Extremities: No clubbing, No cyanosis, No significant edema Neurologic/Psychiatric: alert oriented x 3 power is 5/5 both on sides Skin: No rash, No ulcerations A/P-Cardiology Assessment/Admission Diagnosis Atrial fibrillation Plan Atrial fibrillation, for implantable loop recorder for long-term surveillance of atrial fibrillation. Rita GERARDO MD Jul 14, 2016 10:15
== END 2016-07-01 09:37 | disposition home or self-care (01) ==
LOC: CATH 07:56
PROVIDERS: ATTEND Internal Medicine Interventional Cardiology
DX: I48.0 Paroxysmal atrial fibrillation (principal); Z79.899 Other long term (current) drug therapy
CPT/HCPCS: 33282

== ENCOUNTER → 2017-05-10 | Outpatient (CLI) | payer MEDICARE ==
[~2017-05-10] MED LIST changes: -METO-272 PO; +METO-370 PO
--- NOTE | 2017-05-10 12:29 | Diagnostic Imaging Report ---
PROCEDURE: CT chest without contrast. TECHNIQUE: Multiple contiguous axial images were obtained through the chest without the use of intravenous contrast. INDICATION: Cough. Congestion. COMPARISON: Chest radiograph dated 05/16/2016. FINDINGS: Evaluation of lung lópez demonstrates no focal consolidation, pleural effusion, nor pneumothorax on either side. No pulmonary nodules or masses are seen on either side. Cardiomediastinal structures show normal heart size. There is no large pericardial effusion. No pathologically enlarged or morphologically abnormal adenopathy is seen within the mediastinum, lydia, nor axilla on either side. Implantable medical monitoring device is identified within the anterior subcutaneous soft tissues of the left upper chest. Osseous structures show no acute abnormalities. Included portions of the upper abdomen are unremarkable. IMPRESSION: 1. No acute cardiopulmonary process. Unremarkable CT of the chest. Dictated by: Dictated on workstation # [id number]
--- NOTE | 2017-05-10 14:14 | Diagnostic Imaging Report ---
INDICATION: Screening. The current study was also evaluated with a Computer Aided Detection (CAD) system. FINDINGS: There is a moderate amount of residual fibroglandular tissue bilaterally. There are few benign-type calcifications. There is an unchanged nodular density in the medial aspect of the right breast. There is no new dominant mass, spiculated lesion, or suspicious calcification identified. The skin, nipples, and axillae are unremarkable. IMPRESSION: Benign. ACR BI-RADS Category 2: Benign findings. Result letter will be mailed to the patient. Note: At least 10% of breast cancer is not imaged by mammography. Dictated by: Dictated on workstation # [id number]
== END ==
LOC: RAD 11:14
PROVIDERS: ATTEND Family Medicine
DX: Z12.31 Encounter for screening mammogram for malignant neoplasm of breast (principal); R05 Cough; R09.81 Nasal congestion; E87.1 Hypo-osmolality and hyponatremia
CPT/HCPCS: 71250; 77067

== ENCOUNTER → 2018-05-15 | Outpatient (CLI) | payer MEDICARE ==
[~2018-05-15] MED LIST changes: -AMLO10TA2 PO; +AMLO10TA6 PO; -AMLO5TAB2 PO; +AMLO5TAB7 PO
--- NOTE | 2018-05-15 11:06 | Diagnostic Imaging Report ---
INDICATION: Routine screening. COMPARISON: 05/10/2017 and 07/28/2015. TECHNIQUE: 2D and 3D bilateral screening mammography was performed with CAD. FINDINGS: Scattered fibroglandular densities are identified bilaterally. There are scattered benign-appearing calcifications throughout both breasts. The metallic device in the medial left breast appears stable. The nodular density in the medial right breast appears stable. No new mass or malignant appearing microcalcifications are seen. The axillae are unremarkable. IMPRESSION: No mammographic features suspicious for malignancy are identified. ACR BI-RADS Category 2: Benign findings. Result letter will be mailed to the patient. Note: At least 10% of breast cancer is not imaged by mammography. Dictated by: Dictated on workstation # [id number]
== END ==
LOC: RAD 09:00
PROVIDERS: ATTEND Nurse Practitioner Primary Care
DX: Z12.31 Encounter for screening mammogram for malignant neoplasm of breast (principal)
CPT/HCPCS: 77067

== ENCOUNTER → 2018-07-20 | Outpatient (CLI) | payer MEDICARE ==
[~2018-07-20] MED LIST changes: -AMLO10TA6 PO; +AMLO10TA7 PO; -AMLO5TAB7 PO; +AMLO5TAB9 PO; +IOHEXOL 350 MG/ML 100 ML (OMNIPAQUE 350) VIAL IV ONE; +NS 100 ML (IVPB) BAG IV ONE; +RECEIVED CONTRAST 20 ML VIAL IV SCH
[2018-07-20 10:52] LABS: BUN/CREATININE RATIO 8; CREATININE SERUM 0.74 MG/DL (0.60-1.30); GFR ESTIMATED > 60
--- NOTE | 2018-07-20 12:19 | Diagnostic Imaging Report ---
INDICATION: Elevated blood pressure. Axial imaging through the abdomen and pelvis was performed after the administration of intravenous contrast. CT angiography protocol. Multiplanar, 3-D and MIP reformations were also performed. The abdominal aorta is normal caliber. No aneurysm is seen. The origins of the celiac and SMA are widely patent. The CRISTÓBAL is patent. There are single renal arteries bilaterally which bifurcate early. No renal artery stenosis is identified. Kidneys have a normal appearance. The liver and gallbladder are unremarkable. The pancreas and spleen are unremarkable. No adrenal mass is detected. Small and large bowel loops are normal caliber. There is no ascites. IMPRESSION: Unremarkable CT angiogram of the abdomen. No definite evidence of renal artery stenosis is identified. Dictated by: Dictated on workstation # [id number]
== END ==
LOC: RAD 09:29
PROVIDERS: ATTEND Internal Medicine Interventional Cardiology
DX: I10 Essential (primary) hypertension (principal)
CPT/HCPCS: 36415; 74175; 82565; 84520

== ENCOUNTER → 2018-09-08 | Outpatient (CLI) | payer MEDICARE ==
[~2018-09-08] MED LIST changes: -IOHEXOL 350 MG/ML 100 ML (OMNIPAQUE 350) VIAL IV ONE; -NS 100 ML (IVPB) BAG IV ONE; -RECEIVED CONTRAST 20 ML VIAL IV SCH; -RIVA20TA PO; +RIVA20TA2 PO
[2018-09-08 13:15] LABS: BASOPHILS % (AUTO) 0 % (0-10); EOSINOPHILS # (AUTO) 0.1 10^3/uL (0.0-0.3); EOSINOPHILS % (AUTO) 1 % (0-10); HEMATOCRIT 43 % (35-52); HEMOGLOBIN 14.2 G/DL (11.5-16.0); LYMPHOCYTES # (AUTO) 3.4 X 10^3 (1.0-4.0); LYMPHOCYTES % (AUTO) 34 % (12-44); MEAN CORPUSCULAR HEMOGLOBIN 29 PG (25-34); MEAN CORPUSCULAR HGB CONC 33 G/DL (32-36); MEAN CORPUSCULAR VOLUME 86 FL (80-99); MEAN PLATELET VOLUME 9.5 FL (7.4-10.4); MONOCYTES # (AUTO) 0.5 X 10^3 (0.0-1.0); MONOCYTES % (AUTO) 5 % (0-12); NEUTROPHILS # (AUTO) 5.9 X 10^3 (1.8-7.8); NEUTROPHILS % (AUTO) 59 % (42-75); PLATELET COUNT 293 10^3/uL (130-400); RED CELL DISTRIBUTION WIDTH 13.7 % (10.0-14.5); WHITE BLOOD COUNT 9.9 10^3/uL (4.3-11.0)
[2018-09-08 13:34] LABS: ALBUMIN 4.1 GM/DL (3.2-4.5); BUN/CREATININE RATIO 13; CALCIUM 9.3 MG/DL (8.5-10.1); CARBON DIOXIDE 24 MMOL/L (21-32); CHLORIDE 98 MMOL/L (98-107); CREATININE SERUM 0.75 MG/DL (0.60-1.30); GFR ESTIMATED > 60; GLUCOSE 82 MG/DL (70-105); MAGNESIUM 1.9 MG/DL (1.8-2.4); PHOSPHORUS 3.2 MG/DL (2.3-4.7); POTASSIUM 3.7 MMOL/L (3.6-5.0); SODIUM 133 MMOL/L (135-145)
[2018-09-08 14:37] LABS: BILIRUBIN,URINE NEGATIVE (NEGATIVE); CLARITY,URINE CLEAR; COLOR,URINE YELLOW; GLUCOSE, URINE (UA) NEGATIVE (NEGATIVE); KETONES,URINE NEGATIVE (NEGATIVE); LEUKOCYTE ESTERASE ,URINE 3+ (NEGATIVE); NITRITE,URINE NEGATIVE (NEGATIVE); PH,URINE 6 (5-9); PROTEIN,URINE 1+ (NEGATIVE); UROBILINOGEN,URINE NORMAL (NORMAL)
[2018-09-08 14:50] LABS: BACTERIA,URINE LARGE /HPF
== END ==
LOC: LAB 12:49
PROVIDERS: ATTEND Internal Medicine Nephrology
DX: I12.9 Hypertensive chronic kidney disease with stage 1 through stage 4 chronic kidney disease, or unspecified chronic kidney disease (principal); N18.1 Chronic kidney disease, stage 1; E21.1 Secondary hyperparathyroidism, not elsewhere classified; E87.6 Hypokalemia; E87.1 Hypo-osmolality and hyponatremia; R82.998 Other abnormal findings in urine
CPT/HCPCS: 36415; 80069; 81000; 82306; 82570; 83735; 84156; 85025; 87088

== ENCOUNTER → 2018-09-14 | Outpatient (CLI) | payer MEDICARE, OTHER ==
[~2018-09-14] MED LIST changes: +ARIP10TA17 PO; +ASPI325T32 PO; +CRV25T PO; +FURO20TA4 PO; +MECL-106 PO; +VILA40TA PO
--- NOTE | 2018-09-15 17:42 | Physician Query-Final Dx ---
CAREY SAINI 09/15/18 1742: Final Diagnosis Give Final Diagnosis Please give Final Diagnosis Rita MEJIA MD 09/17/182007: Final Diagnosis Give Final Diagnosis This particular V number is associated with a blood work per my quick search. I do not understand. Please advise. CAREY SAINI September 15, 2018 17:42 Rita MEJIA MD September 17, 2018 20:08
== END ==
LOC: LAB 12:22
PROVIDERS: ATTEND Internal Medicine Nephrology
DX: N18.2 Chronic kidney disease, stage 2 (mild) (principal); E87.1 Hypo-osmolality and hyponatremia
CPT/HCPCS: 36415; 82570; 83930; 83935; 84300

== ENCOUNTER 2018-09-17 11:21 | Emergency (ER) | payer MEDICARE, OTHER ==
[~2018-09-17] VITALS: Ht 154.9 cm; Wt 117.9 kg
[~2018-09-17 11:21] MED LIST changes: -ARIP10TA17 PO; -ASPI325T32 PO; -CRV25T PO; -FURO20TA4 PO; -MECL-106 PO; -VILA40TA PO
--- OUTSIDE RECORDS SUMMARY | 2018-09-17 11:27 | XMS REPORT ---
Author Author Migration, Doctor Organization [facility] Address Unknown Phone Unavailable Care Team Providers Care It Risk Advisor Name Role Phone Migration, Doctor Unavailable Unavailable PROBLEMS Type Condition ICD9-CM Code [id number] Code Onset Dates Condition Status SNOMED Code Problem Mild intermittent asthma without complication J45.20 Active 526786835 Problem Generalized anxiety disorder F41.1 Active 510530200 Problem Hidradenitis L73.2 Active 50982011 Problem Chronic migraine G43.709 Active 95733883 Problem Elevated alkaline phosphatase level R74.8 Active 734274443 Problem Idiopathic peripheral neuropathy G60.9 Active 41152661 Problem Essential hypertension I10 Active 25890944 Problem Obstructive sleep apnea G47.33 Active 74419193 Problem Hyponatremia E87.1 Active 54236360 Problem Chronic frontal sinusitis J32.1 Active 85633970 Problem Paroxysmal atrial fibrillation I48.0 Active 202111519 Problem Secondary pulmonary arterial hypertension I27.21 Active 80736777 Problem Vitamin D deficiency E55.9 Active 79689909 Problem Seasonal allergies J30.2 Active 177400546 Problem Intertrigo L30.4 Active 74438750 Problem Hyperlipidemia E78.5 Active 59137061 Problem Primary insomnia F51.01 Active 769446781 Problem Other chronic gastritis without hemorrhage K29.50 Active 5496416 Problem Depression, unspecified depression type F32.9 Active 37546035 Problem Fasciculations of muscle R25.3 Active 90145361 Problem BMI 40.0-44.9, adult Z68.41 Active 692478281 ALLERGIES No Information ENCOUNTERS Encounter Location Date Diagnosis [facility] [address] [facility] [id number] [address] Aug, Essential hypertension I10 ; Hyperlipidemia E78.5 ; Intertrigo L30.4 ; Morbid obesity E66.01 and BMI 40.0-44.9, adult Z68.41 [facility] [address] [id number], [place] [address] Jul, Essential hypertension I10 [facility] [address], [place] [address] Jul, Essential hypertension I10 [facility] [id number] [place] [address] 24215- 9321 Jul, [facility] [id number] [place] [address] 98001- 2331 Jun, [facility] [id number] [place] [address] 72132- 0579 May, Essential hypertension I10 [facility] [id number] [place] [address] 96333- 1157 May, Essential hypertension I10 [facility] [id number] [place] [address] 39436- 6280 Apr, Essential hypertension I10 ; Intertrigo L30.4 ; Mild intermittent asthma without complication J45.20 and BMI 40.0-44.9, adult Z68.41 [facility] [id number] [place] [address] 11759- 0567 Apr, Essential hypertension I10 [facility] [id number] [place] [address] 88576- 5701 Mar, [facility] [id number] [place] [address] 43647- 3214 Mar, [facility] [id number] [place] [address] 89456- 9381 Feb, Essential hypertension I10 [facility] [address] [place] [address] 05585- 7716 Feb, Intertrigo L30.4 and Encounter for immunization Z23 [facility] [id number] [place] [address] 49085- 8099 Feb, [facility] [id number] [place] [address] 91024- 7750 Jan, Essential hypertension I10 [facility] [address], [place] [address] 1057 26 Jan, 2018 [facility] [id number] [place] [address] 82112- 9311 21 Jan, 2018 Screening for cervical cancer Z12.4 ; BMI 40.0-44.9, adult Z68.41 ; Screening for breast cancer Z12.31 ; Candidal intertrigo B37.2 and Elevated glucose level R73.09 [facility] [address] [id number], [place] [address] 4[address] 12 Jan, 2018 Essential hypertension I10 [facility] [id number] [place] [address] 11044- 5120 Dec, [facility] [id number] [place] [address] 51080- 4895 Dec, [facility] [id number] [place] [address] 54770- 7152 Dec, Essential hypertension I10 [facility] [address] [place] [address] 32944- 6516 Nov, Essential hypertension I10 [facility] [id number] [place] [address] 00338- 7830 Nov, [facility] [address], [place] [address] 8861 Nov, Essential hypertension I10 and BMI 40.0-44.9, adult Z68.41 [facility] [address], [place] [address] Oct, Essential hypertension I10 and Chronic kidney disease, unspecified CKD stage N18.9 [facility] [address] [id number], [place] [address] 2563 Oct, Essential hypertension I10 and Chronic kidney disease, unspecified CKD stage N18.9 [facility] [address], [place] [address]- 2454 Oct, [facility] [id number] [place] [address] 07523- 9358 15 Sep, 2017 Medicare annual wellness visit, initial Z00.00 ; Mild intermittent asthma without complication J45.20 ; Generalized anxiety disorder F41.1 ; Depression, unspecified depression type F32.9 ; Paroxysmal atrial fibrillation I48.0 ; Obstructive sleep apnea G47.33 ; Hyponatremia E87.1 ; Need for hepatitis C screening test Z11.59 ; Encounter for immunization Z23 ; Secondary pulmonary arterial hypertension I27.21 and BMI 40.0-44.9, adult Z68.41 [facility] [address] 02781- 7366 30 Aug, 2017 Essential hypertension I10 [facility] [address] 51606 -2213 09 Jun, 2017 Dysuria R30.0 ; UTI symptoms R39.9 and Candidiasis of breast B37.89 [facility] [address] 01584- 3344 Jun, Hyponatremia E87.1 [facility] [address] 47531- 3079 Jun, Hyponatremia E87.1 [facility] [address] 68297- 0009 Jun, [facility] [id number] [place] [address] 20264- 3845 Jun, Hyponatremia E87.1 [facility] [address] 97230- 6297 May, Hyponatremia E87.1 [facility] [address] 90350- 4748 May, Hyponatremia E87.1 [facility] [address] 09379- 8814 May, Hyponatremia E87.1 [facility] [address] [place] [address]- 3621 May, Hyponatremia E87.1 [facility] [address] 23902- 8497 Apr, Hyponatremia E87.1 ; Fasciculations of muscle R25.3 and Hyperlipidemia E78.5 [facility] [id number] [place] [address] 51154- 0537 Apr, Cough R05 ; Hyponatremia E87.1 ; Fasciculations of muscle R25.3 ; Primary insomnia F51.01 ; Essential hypertension I10 ; Hyperlipidemia E78.5 ; Screening for breast cancer Z12.31 and BMI 40.0-44.9, adult Z68.41 [facility] [id number] [place] [address] 11334- 1512 Apr, Essential hypertension I10 [facility] [id number] [place] [address] 67807- 8580 Mar, [facility] [id number] [place] [address] 43171- 9059 Mar, [facility] [id number] [place] [address] 16884- 0294 Mar, [facility] [id number] [place] [address] 67963- 9704 Feb, [facility] [id number] [place] [address] 88318- 2211 Jan, [facility] [id number] [place] [address] 46641- 6294 Dec, Essential hypertension I10 [facility] [id number] [place] [address] 90038- 2489 Dec, [facility] [id number] [place] [address] 26351470- 1896 Dec, Essential hypertension I10 [facility] [id number] [place] [address] 44100- 4335 Nov, [facility] [address], [place] [address]- 3477 Oct, Essential hypertension I10 [facility] [id number] [place] [address] 35130- 8474 Oct, Essential hypertension I10 [facility] [id number] [place] [address] 15431- 2942 Oct, [facility] [id number] [place] [address] 73703- 6473 September, [facility] [id number] [place] [address] 60788- 1325 September, Essential hypertension I10 [facility] [id number] [place] [address] 35795- 6387 September, [facility] [id number] [place] [address] 30492- 5223 September, Essential hypertension I10 ; Hyperlipidemia E78.5 and Hyponatremia E87.1 [facility] [id number] [place] [address] 19243- 3032 September, Mild intermittent asthma without complication J45.20 ; Essential hypertension I10 ; Hyperlipidemia E78.5 ; Hyponatremia E87.1 and Dysuria R30.0 [facility] [id number] [place] [address] 61462- 6307 September, Other chronic gastritis without hemorrhage K29.50 ; Paroxysmal atrial fibrillation I48.0 and Essential hypertension I10 [facility] [address] [place] [address] 33914- 4873 Aug, [facility] [id number] [place] [address] 12738- 3186 Jul, [facility] [id number] [place] [address] 72686- 3624 14 Jun, 2016 [facility] [id number] [place] [address] 09743 -3076 07 Jun, 2016 Dysuria R30.0 and Acute cystitis with hematuria N30.01 [facility] [address] 03421- 4178 Jun, Essential hypertension I10 [facility] [id number] [place] [address] 59773- 9379 May, Paroxysmal atrial fibrillation I48.0 [facility] [address] 17662- 3336 May, Other chronic gastritis without hemorrhage K29.50 [facility] [address] 93496- 9246 May, [facility] [address] 32038- 4670 May, Hyponatremia E87.1 ; Essential hypertension I10 and Other chronic gastritis without hemorrhage K29.50 [facility] [address] 51362- 2294 May, Hyponatremia E87.1 [facility] [address] 04963- 4481 May, Hyponatremia E87.1 [facility] [address] [id number] May, [facility] [id number] [place] [address] 58003- 2721 Apr, [facility] [id number] [place] [address] 16316- 0016 Apr, [facility] [address] 41414- 1106 Mar, Essential hypertension I10 and Candidal intertrigo B37.2 [facility] [id number] [place] [address] 02065- 6665 Mar, Hyponatremia E87.1 [facility] [address] 06728- 4333 14 Mar, 2016 [facility] [id number] [place] [address] 73235- 4089 10 Mar, 2016 Hyponatremia E87.1 [facility] [id number] [place] [address] 96506- 9730 09 Mar, 2016 Essential hypertension I10 ; Hyponatremia E87.1 ; Slurred speech R47.81 ; Paroxysmal atrial fibrillation I48.0 and Elevated blood sugar R73.9 [facility] [id number] [place] [address] 38609- 4265 Mar, [facility] [address] 40937- 8318 Mar, [facility] [id number] [place] [address] 91346- 1656 Feb, [facility] [id number] [place] [address] 53854- 6841 Jan, [facility] [id number] [place] [address] 11022- 8798 Dec, [facility] [id number] [place] [address] 61453 -8348 Nov, Scratched by cat, initial encounter W55.03XA and Other injury of unspecified body region T14.8 [facility] [id number] [place] [address] 37753- 3137 Nov, [facility] [id number] [place] [address] 36160- 9309 Oct, [facility] [id number] [place] [address] 93541- 7228 September, [facility] [id number] [place] [address] 03467- 4220 08 Aug, 2015 Elevated alkaline phosphatase level R74.8 [facility] [id number] [place] [address] 48181- 8172 Jul, [facility] [id number] [place] [address] 51511- 8198 Jun, Essential hypertension I10 and Bright red blood per rectum K62.5 [facility] [id number] [place] [address] 04962- 5136 Jun, Elevated alkaline phosphatase level R74.8 [facility] [address] 91658- 0792 Jun, [facility] [address] 10738- 3554 May, Essential hypertension I10 ; Hyperlipidemia E78.5 and Well woman exam (no gynecological exam) Z00.00 [facility] [id number] [place] [address] 63441- 0858 May, [facility] [address] 99323- 6854 May, [facility] [id number] [place] [address] 82773- 9742 Mar, [facility] [id number] [place] [address] 73134- 7385 Mar, [facility] [id number] [place] [address] 16635- 6264 Mar, [facility] [id number] [place] [address] 90518- 4072 Feb, Acute recurrent maxillary sinusitis J01.01 ; Asthma, unspecified, unspecified status 493.90 ; Seasonal allergies J30.2 and Cat allergies J30.81 [facility] [address] 57912- 2223 13 Feb, 2015 Upper respiratory tract infection, unspecified upper respiratory infection J06.9 [facility] [id number] [place] [address] 12643- 9620 10 Jan, 2015 [facility] [address] [place] [address]- 3157 Jan, Dysphagia 787.20 and GERD (gastroesophageal reflux disease) 530.81 [facility] [address] 28788- 5316 Jan, Breast lesion 611.9 [facility] [id number] [place] [address] 34040- 5126 Dec, Breast lesion 611.9 [facility] [address] 50349- 7053 Dec, Breast lesion 611.9 [facility] [address] 94634- 6552 Nov, Fatigue 780.79 and Hyperlipidemia 272.4 [facility] [id number] [place] [address] 01937- 0739 Nov, Hypertension 401.9 ; Hyperlipidemia 272.4 ; Chronic frontal sinusitis 473.1 and Fatigue 780.79 [facility] [id number] [place] [address] 04702- 2151 Nov, [facility] [id number] [place] [address] 77753- 6305 Oct, [facility] [id number] [place] [address] 94673- 1224 Oct, [facility] [id number] [place] [address] 80555- 3737 September, [facility] [id number] [place] [address] 15771- 0479 September, [facility] [id number] [place] [address] 07520- 1116 September, [facility] [id number] [place] [address] 88839 2546 September, [facility] [id number] [place] [address] 60047- 9316 Aug, [facility] [place] [facility] [address] [id number] [place] [address]- 9267 14 Aug, 2014 [facility] [place] [facility] [address] [id number] [place] [address]- 1400 13 Aug, 2014 [facility] [place] [facility] [address] [id number] [place] [address]- 3234 20 Jul, 2014 [facility] [place] [facility] [address] [id number] [place] [address]- 4968 20 Jul, 2014 [facility] [place] [facility] [address] [id number] [place] [address]- 4720 19 Jul, 2014 [facility] [place] [facility] [address] [id number] [place] [address]- 2399 19 Jul, 2014 [facility] [place] [facility] [address] [id number] [place] [address]- 7827 18 Jul, 2014 [facility] [place] [facility] [address] [id number] [place] [address]- 0624 17 Jul, 2014 [facility] [place] [facility] [address] [id number] [place] [address]- 3338 17 Jul, 2014 [facility] [place] [facility] [address] [id number] [place] [address]- 5165 16 Jul, 2014 [facility] [place] [facility] [address] [id number] [place] [address]- 2079 16 Jul, 2014 [facility] [place] [facility] [address] [id number] [place] [address]- 7784 12 Jul, 2014 [facility] [place] [facility] [address] [id number] [place] [address]- 6594 12 Jul, 2014 [facility] [place] [facility] [address] [id number] [place] [address]- 0326 09 Jul, 2014 [facility] [place] [facility] [address] [id number] [place] [address]- 1905 09 Jul, 2014 [facility] [place] [facility] [address] [id number] [place] [address]- 2124 Jul, 2014 [facility] [place] [facility] [address] [id number] [place] [address]- 3321 Jul, [facility] [place] [facility] [address] [id number] [place] [address]- 4214 Jun, [facility] [place] [facility] [address] [id number] [place] [address]- 5437 Jun, [facility] [place] [facility] [address] [id number] [place] [address]- 6345 Jun, [facility] [place] [facility] [address] [id number] [place] [address]- 2160 Jun, [facility] [place] [facility] [address] [id number] [place] [address]- 9334 May, [facility] [place] [facility] [address] [id number] [place] [address]- 4903 May, [facility] [place] [facility] [address] [id number] [place] [address]- 5690 May, [facility] [place] [facility] [address] [id number] [place] [address]- 1728 May, [facility] [place] [facility] [address] [id number] [place] [address]- 8185 Apr, [facility] [place] [facility] [address] [id number] [place] [address]- 1970 Apr, [facility] [place] [facility] [address] [id number] [place] [address]- 8751 Apr, [facility] [place] [facility] [address] [id number] [place] [address]- 7821 Apr, [facility] [place] [facility] [address] [id number] [place] [address]- 5601 Apr, [facility] [place] [facility] [address] [id number] [place] [address]- 5849 Apr, [facility] [place] [facility] [address] [id number] [place] [address]- 6113 Mar, [facility] [place] [facility] [address] [id number] [place] [address]- 4223 Mar, [facility] [place] [facility] [address] [id number] [place] [address]- 2385 Mar, [facility] [place] [facility] [address] [id number] [place] [address]- 6581 Mar, [facility] [place] [facility] [address] [id number] [place] [address]- 1678 Mar, [facility] [place] [facility] [address] [id number] [place] [address]- 0146 Mar, [facility] [place] [facility] [address] [id number] [place] [address]- 9783 Mar, [facility] [place] [facility] [address] [id number] [place] [address]- 3915 Mar, [facility] [place] [facility] [address] [id number] [place] [address]- 9221 Mar, [facility] [place] [facility] [address] [id number] [place] [address]- 6562 Mar, [facility] [place] [facility] [address] [id number] [place] [address]- 2483 Mar, [facility] [place] [facility] [address] [id number] [place] [address]- 9676 Mar, [facility] [place] [facility] [address] [id number] [place] [address]- 7973 Mar, [facility] [place] [facility] [address] [id number] [place] [address]- 0202 Mar, [facility] [place] [facility] [address] [id number] [place] [address]- 8083 Mar, [facility] [place] [facility] [address] [id number] [place] [address]- 2458 Mar, [facility] [place] [facility] [address] [id number] [place] [address]- 1105 05 Mar, 2014 [facility] [place] [facility] [address] [id number] [place] [address]- 8731 30 Feb, 2014 [facility] [place] [facility] [address] [id number] [place] [address]- 9806 30 Feb, 2014 [facility] [place] [facility] [address] [id number] [place] [address]- 4871 30 Feb, 2014 [facility] [place] [facility] [address] [id number] [place] [address]- 1966 30 Feb, 2014 [facility] [place] [facility] [address] [id number] [place] [address]- 5835 Feb, [facility] [place] [facility] [address] [id number] [place] [address]- 9826 Feb, [facility] [place] [facility] [address] [id number] [place] [address] Feb, [facility] [place] [facility] [address] [id number] [place] [address] Feb, [facility] [place] [facility] [address] [id number] [place] [address] Feb, [facility] [place] [facility] [address] [id number], [place] [address] 28 Feb, 2014 [facility] [place] [facility] [address] [id number], [place] [address] 16 Feb, 2014 [facility] [place] [facility] [address] [id number] [place] [address] 16 Feb, 2014 [facility] [place] [facility] [address] [id number], [place] [address] 15 Feb, 2014 [facility] [place] [facility] [address] [id number] [place] [address] 15 Feb, 2014 [facility] [place] [facility] [address] [id number] [place] [address] 08 Feb, 2014 [facility] [place] [facility] [address] [id number] [place] [address] 08 Feb, 2014 [facility] [place] [facility] [address] [id number] [place] [address] Feb, [facility] [place] [facility] [address] [id number] [place] [address] Feb, [facility] [place] [facility] [address] [id number] [place] [address] Feb, [facility] [place] [facility] [address] [id number] [place] [address] 30 Jan, 2014 [facility] [place] [facility] [address] [id number] [place] [address] 30 Jan, 2013 [facility] [place] [facility] [address] [id number] [place] [address] 29 Jan, 2013 [facility] [place] [facility] [address] [id number] [place] [address] 29 Jan, 2013 [facility] [place] [facility] [address] [id number] [place] [address] 24 Jan, 2013 [facility] [place] [facility] [address] [id number] [place] [address] 24 Jan, 2013 [facility] [place] [facility] [address] [id number] [place] [address] 10 Jan, 2013 [facility] [place] [facility] [address] [id number] [place] [address] 08 Jan, 2013 [facility] [place] [facility] [address] [id number] [place] [address] 08 Jan, 2013 [facility] [place] [facility] [address] [id number] [place] [address] Dec, [facility] [place] [facility] [address] [id number] [place] [address] Dec, [facility] [place] [facility] [address] [id number] [place] [address] Dec, [facility] [place] [facility] [address] [id number] [place] [address] Dec, [facility] [place] [facility] [address] [id number] [place] [address] Dec, [facility] [place] [facility] [address] [id number] [place] [address] Dec, [facility] [place] [facility] [address] [id number] [place] [address] Dec, [facility] [place] [facility] [address] [id number] [place] [address] Dec, [facility] [place] [facility] [address] [id number] [place] [address] Dec, [facility] [place] [facility] [address] [id number] [place] [address] 1809 Nov, [facility] [place] [facility] [address] [id number] [place] [address]- [address]852 Nov, [facility] [place] [facility] [address] [id number] [place] [address]- 8291 Nov, [facility] [place] [facility] [address] [id number] [place] [address]- 5465 Nov, [facility] [place] [facility] [address] [id number] [place] [address]- 7480 Nov, [facility] [place] [facility] [address] [id number] [place] [address]- 54[address] Nov, [facility] [place] [facility] [address] [id number] [place] [address]- 2453 Oct, [facility] [place] [facility] [address] [id number] [place] [address]- 9857 Oct, [facility] [place] [facility] [address] [id number] [place] [address]- 6842 Oct, [facility] [place] [facility] [address] [id number] [place] [address]- 6510 Oct, [facility] [place] [facility] [address] [id number] [place] [address]- 9385 Oct, [facility] [place] [facility] [address] [id number] [place] [address]- 7963 Oct, [facility] [place] [facility] [address] [id number] [place] [address]- 7631 Oct, [facility] [place] [facility] [address] [id number] [place] [address]- 4351 Oct, [facility] [place] [facility] [address] [id number] [place] [address]- 4200 Oct, [facility] [place] [facility] [address] [id number] [place] [address]- 1197 Oct, [facility] [place] [facility] [address] [id number] [place] [address]- 6793 Oct, [facility] [place] [facility] [address] [id number] [place] [address]- 8598 Oct, [facility] [place] [facility] [address] [id number] [place] [address]- 8869 Oct, [facility] [place] [facility] [address] [id number] [place] [address]- 8755 Oct, [facility] [place] [facility] [address] [id number] [place] [address]- 2894 September, [facility] [place] [facility] [address] [id number] [place] [address]- 6325 September, [facility] [place] [facility] [address] [id number] [place] [address]- 3971 September, [facility] [place] [facility] [address] [id number] [place] [address]- 8989 September, [facility] [place] [facility] [address] [id number] [place] [address]- 4009 September, [facility] [address] [id number] [place] [address]- 1615 September, [facility] [address] [id number] [place] [address]- 6791 September, [facility] [address] [id number] [place] [address]- 5482 September, [facility] [address] [id number] [place] [address]- 8262 September, [facility] [address] [id number] [place] [address]- 6637 September, [facility] [address] [id number] [place] [address]- 2745 September, [facility] [address] [id number] [place] [address]- 2249 September, [facility] [address] [id number] [place] [address]- 9841 September, [facility] [address] [id number] [place] [address]- 3957 September, [facility] [address] [id number] [place] [address]- 9565 September, [facility] [address] [id number] [place] [address]- 5796 September, [facility] [address] [id number] [place] [address]- 2469 September, [facility] [address] [id number] [place] [address]- 8879 September, [facility] [address] [id number] [place] [address]- 7548 September, [facility] [address] [id number] [place] [address]- 0625 Aug, [facility] [place] [facility] [address] [id number] [place] [address]- 1331 08 Aug, 2013 [facility] [place] [facility] [address] [id number] [place] [address]- 3557 31 Jul, 2013 [facility] [place] [facility] [address] [id number] [place] [address]- 3809 31 Jul, 2013 [facility] [place] [facility] [address] [id number] [place] [address]- 9886 28 Jul, 2013 [facility] [place] [facility] [address] [id number] [place] [address]- 6218 28 Jul, 2013 [facility] [place] [facility] [address] [id number] [place] [address]- 5372 27 Jul, 2013 [facility] [place] [facility] [address] [id number] [place] [address]- 9404 Jul, [facility] [place] [facility] [address] [id number] [place] [address]- 9629 27 Jul, 2013 [facility] [place] [facility] [address] [id number] [place] [address]- 5532 27 Jul, 2013 [facility] [place] [facility] [address] [id number] [place] [address]- 6423 Jul, [facility] [place] [facility] [address] [id number] [place] [address]- 5465 25 Jul, 2013 [facility] [place] [facility] [address] [id number] [place] [address]- 8715 14 Jul, 2013 [facility] [place] [facility] [address] [id number] [place] [address]- 3528 14 Jul, 2013 [facility] [place] [facility] [address] [id number] [place] [address]- 0328 07 Jul, 2013 [facility] [place] [facility] [address] [id number] [place] [address]- 4980 07 Jul, 2013 [facility] [place] [facility] [address] [id number] [place] [address]- 4489 Jun, [facility] [place] [facility] [address] [id number] [place] [address]- 7852 10 Jun, 2013 [facility] [place] [facility] [address] [id number] [place] [address]- 9736 Jun, [facility] [place] [facility] [address] [id number] [place] [address]- 6364 Jun, [facility] [place] [facility] [address] [id number] [place] [address]- 1463 May, [facility] [place] [facility] [address] [id number] [place] [address]- 1062 May, [facility] [place] [facility] [address] [id number] [place] [address]- 7799 May, [facility] [place] [facility] [address] [id number] [place] [address]- 3804 May, [facility] [place] [facility] [address] [id number] [place] [address]- 5932 May, [facility] [place] [facility] [address] [id number] [place] [address]- 7243 Mar, [facility] [place] [facility] [address] [facility] [id number] [place] [address]- 6891 Mar, [facility] [place] [facility] [address] [id number] [place] [address]- 4253 Mar, [facility] [place] [facility] [address] [id number] [place] [address]- 5921 Mar, [facility] [place] [facility] [address] [id number] [place] [address]- 9426 Mar, [facility] [place] [facility] [address] [id number] [place] [address]- 0151 Mar, [facility] [place] [facility] [address] [id number] [place] [address]- 3600 Feb, [facility] [place] [facility] [address] [id number] [place] [address]- 9504 Feb, [facility] [place] [facility] [address] [id number] [place] [address]- 8542 Feb, [facility] [place] [facility] [address] [id number] [place] [address]- 3958 Feb, [facility] [place] [facility] [address] [id number] [place] [address]- 4658 Feb, [facility] [place] [facility] [address] [id number] [place] [address]- 7485 Feb, [facility] [place] [facility] [address] [id number] [place] [address]- 0181 Feb, [facility] [place] [facility] [address] [id number] [place] [address]- 1236 Feb, [facility] [place] [facility] [address] [id number] [place] [address]- 2626 Feb, [facility] [place] [facility] [address] [id number] [place] [address]- 3725 Feb, [facility] [place] [facility] [address] [id number] [place] [address]- 5802 Feb, [facility] [place] [facility] [address] [id number] [place] [address]- 4766 Feb, [facility] [place] [facility] [address] [id number] [place] [address]- 9423 Jan, [facility] [place] [facility] [address] [id number] [place] [address]- 5400 Jan, [facility] [place] [facility] [address] [id number] [place] [address]- 8976 Dec, [facility] [place] [facility] [address] [id number] [place] [address]- 0398 Dec, [facility] [place] [facility] [address] [id number] [place] [address]- 3381 Nov, [facility] [place] [facility] [address] [id number] [place] [address]- 7984 Nov, [facility] [place] [facility] [address] [id number] [place] [address]- 7571 Nov, [facility] [place] [facility] [address] [id number] [place] [address]- 7998 Nov, [facility] [place] [facility] [address] [id number] [place] [address]- 2198 Nov, [facility] [place] [facility] [address] [id number] [place] [address]- 5075 Oct, [facility] [place] [facility] [address] [id number] [place] [address]- 7065 September, [facility] [place] [facility] [address] [id number] [place] [address]- 0480 Aug, [facility] [place] [facility] [address] [id number] [place] [address]- 2956 Jul, [facility] [place] [facility] [address] [id number] [place] [address]- 0243 Jul, [facility] [place] [facility] [address] [id number] [place] [address]- 6109 Jul, [facility] [place] [facility] [address] [id number] [place] [address]- 9257 28 Jun, 2012 [facility] [place] [facility] [address] [id number] [place] [address]- 6594 14 Jun, 2012 [facility] [place] [facility] [address] [id number] [place] [address]- 1254 Jun, [facility] [place] [facility] [address] [id number] [place] [address]- 0806 Jun, [facility] [place] [facility] [address] [id number] [place] [address]- 1990 07 Jun, 2012 [facility] [place] [facility] [address] [id number] [place] [address]- 7788 May, [facility] [place] [facility] [address] [id number] [place] [address]- 1998 May, [facility] [place] [facility] [address] [id number] [place] [address]- 5878 Apr, [facility] [place] [facility] [address] [id number] [place] [address]- 2339 Apr, [facility] [place] [facility] [address] [id number] [place] [address]- 5810 Mar, [facility] [place] [facility] [address] [id number] [place] [address]- 6555 Mar, [facility] [place] [facility] [address] [id number] [place] [address]- 9904 Mar, [facility] [place] [facility] [address] [id number] [place] [address]- 0270 Mar, [facility] [place] [facility] [address] [id number] [place] [address]- 2993 Mar, [facility] [place] [facility] [address] [id number] [place] [address]- 9126 Mar, [facility] [place] [facility] [address] [facility] [id number] [place] [address]- 0645 Mar, [facility] [place] [facility] [address] [id number] [place] [address]- 7925 Mar, [facility] [place] [facility] [address] [id number] [place] [address]- 8486 Mar, [facility] [place] [facility] [address] [id number] [place] [address]65 Mar, [facility] [place] [facility] [address] [id number] [place] [address]- 6172 Feb, [facility] [place] [facility] [address] [id number] [place] [address]- 5412 Feb, [facility] [place] [facility] [address] [id number] [place] [address]- 0958 Feb, [facility] [place] [facility] [address] [id number] [place] [address]- 5610 Feb, [facility] [place] [facility] [address] [id number] [place] [address]- 0108 Feb, [facility] [place] [facility] [address] [id number] [place] [address]- 2340 Feb, [facility] [place] [facility] [address] [id number] [place] [address]- 6609 Jan, [facility] [place] [facility] [address] [id number] [place] [address]- 5957 Jan, [facility] [place] [facility] [address] [id number] [place] [address]- 1089 Dec, [facility] [place] [facility] [address] [id number] [place] [address]- 0128 Dec, [facility] [place] [facility] [address] [id number] [place] [address]- 1663 Dec, [facility] [place] [facility] [address] [id number] [place] [address]- 9072 Nov, [facility] [place] [facility] [address] [id number], [place] [address]- 4289 September, [facility] [place] [facility] [address] [id number], [place] [address]- 2872 September, [facility] [place] [facility] [address] [id number] [place] [address]- 2017 September, [facility] [place] [facility] [address] [id number], [place] [address]- 8536 September, [facility] [place] [facility] [address] [id number] [place] [address]- 0052 Aug, [facility] [place] [facility] [address] [id number] [place] [address]- 1892 20 Aug, 2011 [facility] [address] [id number] [place] [address]- 5966 19 Aug, 2011 [facility] [place] [facility] [address] [id number] [place] [address]- 2176 10 Aug, 2011 [facility] [address] [facility] [id number] [place] [address]- 9816 05 Aug, 2011 [facility] [place] [facility] [address] [id number] [place] [address]- 5764 13 Jul, 2011 [facility] [address] [id number] [place] [address]- 5107 05 Jul, 2011 [facility] [place] [facility] [address] [id number] [place] [address]- 8894 02 Jul, 2011 [facility] [address] [id number] [place] [address]- 4473 29 Jun, 2011 [facility] [address] [id number] [place] [address]- 6655 17 Jun, 2011 [facility] [place] [facility] [address] [id number] [place] [address]- 9561 13 Jun, 2011 [facility] [address] [facility] [id number] [place] [address]- 7950 10 Jun, 2011 [facility] [place] [facility] [address] [id number] [place] [address]- 2096 07 Jun, 2011 [facility] [place] [facility] [address] [id number] [place] [address]- 3346 Jun, [facility] [place] [facility] [address] [id number] [place] [address]- 1576 03 Jun, 2011 [facility] [place] [facility] [address] [id number] [place] [address]- 8476 24 May, 2011 [facility] [place] [facility] [address] [id number] [place] [address]- 5161 May, [facility] [address] [id number] [place] [address]- 0549 12 May, 2011 [facility] [place] [facility] [address] [id number] [place] [address]- 9216 May, [facility] [place] [facility] [address] [id number] [place] [address]- 2754 Apr, [facility] [place] [facility] [address] [id number] [place] [address]- 8256 Apr, [facility] [place] [facility] [address] [id number] [place] [address]- 5481 Mar, [facility] [place] [facility] [address] [id number] [place] [address]- 8902 Mar, [facility] [place] [facility] [address] [id number] [place] [address]- 1633 Mar, [facility] [place] [facility] [address] [id number] [place] [address]- 0420 Nov, [facility] [place] [facility] [address] [id number] [place] [address]- 4172 May, [facility] [place] [facility] [address] [id number] [place] [address]- 6811 Apr, [facility] [place] [facility] [address] [id number] [place] [address]- 0907 Apr, [facility] [place] [facility] [address] [id number] [place] [address]- 1154 Apr, [facility] [place] [facility] [address] [id number] [place] [address]- 0282 Apr, [facility] [place] [facility] [address] [id number] [place] [address]- 9259 Apr, [facility] [place] [facility] [address] [id number] [place] [address]- 4847 Mar, [facility] [place] [facility] [id number], [place] [address]- 2546 08 Mar, 2010 [facility] [id number], [place] [address]- 0226 Feb, [facility] [id number], [place] [address]- 2546 Aug, [facility] [id number], [place] [address]- 2546 Jul, [facility] [id number], [place] [address]- 2546 Jun, [facility] [id number] [place] [address] 15360- 6226 Apr, [facility] [id number] [place] [address]- 2546 Apr, [facility] [id number] [place] [address] 99357- 2546 Mar, [facility] [id number], [place] [address]- 2546 Mar, [facility] [id number] [place] [address] 239[address]- 9596 Feb, [facility] [id number], [place] [address]- 2546 Dec, [facility] [id number], [place] [address]- 2546 Oct, IMMUNIZATIONS No Known Immunizations SOCIAL HISTORY Never Assessed REASON FOR VISIT [facility] PLAN OF CARE VITAL SIGNS MEDICATIONS No Known Medications RESULTS No Results PROCEDURES No Known procedures INSTRUCTIONS MEDICATIONS ADMINISTERED No Known Medications MEDICAL (GENERAL) HISTORY Type Description Date Medical History hypertension Medical History neuropathy Medical History depression Medical History anxiety Medical History Hyposmolality and/or hyponatremia Surgical History cleaned out left side of sinuses 2013 Surgical History colonscopy 09/03/15 Hospitalization History cellulitis 09/2013 Hospitalization History surgery 2013 Hospitalization History A Fib--[facility] 03/08/2016 Hospitalization History acute chest pain, hypertensive urgency, paroxsysmal htn-[facility] 05/10/16
--- OUTSIDE RECORDS SUMMARY | 2018-09-17 11:28 | XMS REPORT ---
Author Author Migration, Doctor Organization [facility] Address Unknown Phone Unavailable Care Team Providers Care Cleaner Furniture Name Role Phone Migration, Doctor Unavailable Unavailable PROBLEMS Type Condition ICD9-CM Code [id number] Code Onset Dates Condition Status SNOMED Code Problem Generalized anxiety disorder F41.1 Active 707312757 Problem Primary insomnia F51.01 Active 332268835 Problem Chronic migraine G43.709 Active 81073862 Problem Mild intermittent asthma without complication J45.20 Active 834276059 Problem Idiopathic peripheral neuropathy G60.9 Active 70640816 Problem Hidradenitis L73.2 Active 23449311 Problem Obstructive sleep apnea G47.33 Active 56818310 Problem Elevated alkaline phosphatase level R74.8 Active 129683975 Problem Vitamin D deficiency E55.9 Active 00420548 Problem Hyponatremia E87.1 Active 47048572 Problem Chronic frontal sinusitis J32.1 Active 73557398 Problem Secondary pulmonary arterial hypertension I27.21 Active 40742837 Problem Hyperlipidemia E78.5 Active 92986525 Problem BMI 40.0-44.9, adult Z68.41 Active 336004770 Problem Essential hypertension I10 Active 87319245 Problem Seasonal allergies J30.2 Active 374850072 Problem Paroxysmal atrial fibrillation I48.0 Active 000226059 Problem Other chronic gastritis without hemorrhage K29.50 Active 2125086 Problem Depression, unspecified depression type F32.9 Active 70548159 Problem Fasciculations of muscle R25.3 Active 80524441 ALLERGIES No Information ENCOUNTERS Encounter Location Date Diagnosis [facility] [address] [facility] [id number] [address] Aug, [facility] [address] [id number] [address] Jul, Essential hypertension I10 [facility] [address] [id number] [address] 89[address] Jul, Essential hypertension I10 [facility] [address] [id number] [address] Jul, [facility] [id number] [place] [address] 73018- 1392 Jun, [facility] [id number] [place] [address] 35977- 3095 May, Essential hypertension I10 [facility] [address] 11120- 5353 May, Essential hypertension I10 [facility] [id number] [place] [address] 29210- 7413 Apr, Essential hypertension I10 ; Intertrigo L30.4 ; Mild intermittent asthma without complication J45.20 and BMI 40.0-44.9, adult Z68.41 [facility] [id number] [place] [address] 35884- 6194 Apr, Essential hypertension I10 [facility] [id number] [place] [address] 03616- 2029 Mar, [facility] [id number] [place] [address] 44818- 7823 Mar, [facility] [id number] [place] [address] 70164- 0714 Feb, Essential hypertension I10 [facility] [id number] [place] [address] 72176- 4347 Feb, Intertrigo L30.4 and Encounter for immunization Z23 [facility] [id number] [place] [address] 60960- 5843 Feb, [facility] [address] 55142- 0177 Jan, Essential hypertension I10 [facility] [id number] [place] [address] 04225- 4040 Jan, [facility] [id number] [place] [address] 15989- 9348 Jan, Screening for cervical cancer Z12.4 ; BMI 40.0-44.9, adult Z68.41 ; Screening for breast cancer Z12.31 ; Candidal intertrigo B37.2 and Elevated glucose level R73.09 [place] [address], [place] [address] 1612 Jan, Essential hypertension I10 [facility] [facility] [id number] [place] [address] 16944- 5694 Dec, [facility] [id number] [place] [address] 07544- 9067 Dec, [facility] [id number] [place] [address] 95168- 3111 Dec, Essential hypertension I10 [facility] [facility] [id number] [place] [address] 07815- 5929 Nov, Essential hypertension I10 [facility] [id number] [place] [address] 36627- 2134 Nov, [place] [id number] [place] [address] 03874- 5590 Nov, Essential hypertension I10 and BMI 40.0-44.9, adult Z68.41 [facility] [address], [place] [address] 1280 Oct, Essential hypertension I10 and Chronic kidney disease, unspecified CKD stage N18.9 [facility] [facility] [address] [id number] [address] 2373 Oct, Essential hypertension I10 and Chronic kidney disease, unspecified CKD stage N18.9 [facility] [facility] [id number] [place] [address] 76019- 4009 Oct, [facility] [facility] [address], [place] [address] 4207 September, Medicare annual wellness visit, initial Z00.00 ; Mild intermittent asthma without complication J45.20 ; Generalized anxiety disorder F41.1 ; Depression, unspecified depression type F32.9 ; Paroxysmal atrial fibrillation I48.0 ; Obstructive sleep apnea G47.33 ; Hyponatremia E87.1 ; Need for hepatitis C screening test Z11.59 ; Encounter for immunization Z23 ; Secondary pulmonary arterial hypertension I27.21 and BMI 40.0-44.9, adult Z68.41 [facility] [address] 78322- 6176 30 Aug, 2017 Essential hypertension I10 [facility] [address] 13894 -0235 Jun, Dysuria R30.0 ; UTI symptoms R39.9 and Candidiasis of breast B37.89 [facility] [address] 14673- 4904 Jun, Hyponatremia E87.1 [facility] [address] 77213- 7606 Jun, Hyponatremia E87.1 [facility] [address] 97304- 3774 Jun, Hyponatremia E87.1 [facility] [address] 62586- 8297 Jun, [facility] [address] 30167- 6621 May, Hyponatremia E87.1 [facility] [address] 04786- 3166 May, Hyponatremia E87.1 [facility] [address] 90929- 7378 May, Hyponatremia E87.1 [facility] [address] 72579- 3819 May, Hyponatremia E87.1 [facility] [address] 75123- 3286 Apr, Hyponatremia E87.1 ; Fasciculations of muscle R25.3 and Hyperlipidemia E78.5 [facility] [id number] [place] [address] 21371- 2159 Apr, Cough R05 ; Hyponatremia E87.1 ; Fasciculations of muscle R25.3 ; Primary insomnia F51.01 ; Essential hypertension I10 ; Hyperlipidemia E78.5 ; Screening for breast cancer Z12.31 and BMI 40.0-44.9, adult Z68.41 [facility] [id number] [place] [address] 24490- 8456 Apr, Essential hypertension I10 [facility] [id number] [place] [address] 91202- 8262 Mar, [facility] [id number] [place] [address] 95969- 4985 Mar, [facility] [id number] [place] [address] 65112- 3868 Mar, [facility] [id number] [place] [address] 74784- 2837 Feb, [facility] [id number] [place] [address] 07758- 8777 Jan, [facility] [id number] [place] [address] 83331- 5014 Dec, Essential hypertension I10 [facility] [id number] [place] [address] 47891- 9804 Dec, [facility] [id number] [place] [address] 99804- 1579 Dec, Essential hypertension I10 [facility] [id number] [place] [address] 012869- 4776 Nov, [facility] [id number] [place] [address] 14930- 2021 Oct, Essential hypertension I10 [facility] [id number] [place] [address] 31294- 2097 Oct, Essential hypertension I10 [facility] [id number] [place] [address] 83138- 0408 Oct, [facility] [id number] [place] [address] 70284- 4107 September, [place] [id number] [place] [address] 04399- 1479 September, Essential hypertension I10 [place] [address] 71237- 9595 September, [place] [address] 23776- 5776 September, Essential hypertension I10 ; Hyperlipidemia E78.5 and Hyponatremia E87.1 [place] [id number] [place] [address] 07616- 9847 September, Mild intermittent asthma without complication J45.20 ; Essential hypertension I10 ; Hyperlipidemia E78.5 ; Hyponatremia E87.1 and Dysuria R30.0 [place] [id number] [place] [address] 06607- 0275 September, Other chronic gastritis without hemorrhage K29.50 ; Paroxysmal atrial fibrillation I48.0 and Essential hypertension I10 [place] [id number] [place] [address] 99792- 9841 Aug, [facility] [id number] [place] [address] 59884- 4882 14 Jul, 2016 [facility] [id number] [place] [address] 17778- 1825 14 Jun, 2016 [facility] [id number] [place] [address] 04348 -5321 07 Jun, 2016 Dysuria R30.0 and Acute cystitis with hematuria N30.01 [facility] [id number] [place] [address] 84462- 4480 Jun, Essential hypertension I10 [facility] [id number] [place] [address] 90386- 4952 May, Paroxysmal atrial fibrillation I48.0 [facility] [id number] [place] [address] 47384- 3535 May, Other chronic gastritis without hemorrhage K29.50 [facility] [address] 51621- 9294 May, [facility] [id number] [place] [address] 41401- 1237 May, Hyponatremia E87.1 ; Essential hypertension I10 and Other chronic gastritis without hemorrhage K29.50 [facility] [id number] [place] [address] 71382- 5303 May, Hyponatremia E87.1 [facility] [address] 43754- 1291 May, Hyponatremia E87.1 [facility] [address] [id number] May, [facility] [id number] [place] [address] 81242- 8861 Apr, [facility] [id number] [place] [address] 22692- 5917 Apr, [facility] [id number] [place] [address] 30815- 9011 Mar, Essential hypertension I10 and Candidal intertrigo B37.2 [facility] [id number] [place] [address] 44440- 1574 Mar, Hyponatremia E87.1 [facility] [id number] [place] [address] 76902- 0300 14 Mar, 2016 [facility] [id number] [place] [address] 32167- 5994 Mar, Hyponatremia E87.1 [facility] [id number] [place] [address] 49719- 0926 09 Mar, 2016 Essential hypertension I10 ; Hyponatremia E87.1 ; Slurred speech R47.81 ; Paroxysmal atrial fibrillation I48.0 and Elevated blood sugar R73.9 [facility] [id number] [place] [address] 87803- 0513 Mar, [facility] [address] 97811- 8426 Mar, [facility] [address] 34615- 8341 Feb, [place] [address] 41494- 8400 Jan, [facility] [address] 58239- 8886 Dec, [facility] [address] 59278 -5454 Nov, Scratched by cat, initial encounter W55.03XA and Other injury of unspecified body region T14.8 [place] [address] 94985- 2197 Nov, [facility] [id number] [place] [address] 15050- 9423 Oct, [place] [address] 81866- 6944 September, [facility] [address] 20825- 3337 Aug, Elevated alkaline phosphatase level R74.8 [place] [address] 45478- 5705 Jul, [facility] [id number] [place] [address] 06842- 8681 Jun, Essential hypertension I10 and Bright red blood per rectum K62.5 [place] [id number] [place] [address] 09715- 1298 11 Jun, 2015 Elevated alkaline phosphatase level R74.8 [facility] [address] 77593- 4345 10 Jun, 2015 [place] [address] 60913- 1308 May, Essential hypertension I10 ; Hyperlipidemia E78.5 and Well woman exam (no gynecological exam) Z00.00 [facility] [id number] [place] [address] 56660- 1932 May, [place] [address] 77135- 3423 May, [facility] [address] 67255- 8520 Mar, [place] [address] 86076- 6160 Mar, [place] [id number] [place] [address] 49023- 7542 Mar, [place] [id number] [place] [address] 80040- 7513 Feb, Acute recurrent maxillary sinusitis J01.01 ; Asthma, unspecified, unspecified status 493.90 ; Seasonal allergies J30.2 and Cat allergies J30.81 [place] [id number] [place] [address] 03066- 7739 13 Feb, 2015 Upper respiratory tract infection, unspecified upper respiratory infection J06.9 [facility] [id number] [place] [address] 78466- 6804 Jan, [place] [address] 38938- 2432 02 Jan, 2015 Dysphagia 787.20 and GERD (gastroesophageal reflux disease) 530.81 [place] [address] 66282- 0006 Jan, Breast lesion 611.9 [facility] [address] [place] [address] 74448- 4516 Dec, Breast lesion 611.9 [facility] [address] [place] [address] 51793- 2286 Dec, Breast lesion 611.9 [facility] [id number] [place] [address] 56280- 8726 Nov, Fatigue 780.79 and Hyperlipidemia 272.4 [facility] [id number] [place] [address] 20563- 3749 Nov, Hypertension 401.9 ; Hyperlipidemia 272.4 ; Chronic frontal sinusitis 473.1 and Fatigue 780.79 [facility] [id number] [place] [address] 16028- 3283 Nov, [facility] [id number] [place] [address] 22127- 5198 Oct, [facility] [address] [place] [address] 05708- 9640 Oct, [facility] [id number] [place] [address] 27176- 8236 September, [facility] [address], [place] [address]- 2466 September, [facility] [address], [place] [address]- 2546 September, [facility] [address], [place] [address]- 2546 September, [facility] [id number] [place] [address] 06349- 4246 Aug, [facility] [address], [place] [address]- 5886 Aug, [facility] [address] [place] [address] 04687- 2040 13 Aug, 2014 [facility] [place] [facility] [address] [id number] [place] [address]- 9693 20 Jul, 2014 [facility] [place] [facility] [address] [id number] [place] [address]- 2863 20 Jul, 2014 [facility] [place] [facility] [address] [id number] [place] [address]- 2410 19 Jul, 2014 [facility] [place] [facility] [address] [id number] [place] [address]- 5267 19 Jul, 2014 [facility] [place] [facility] [address] [id number] [place] [address]- 1034 18 Jul, 2014 [facility] [place] [facility] [address] [id number] [place] [address]- 5519 17 Jul, 2014 [facility] [place] [facility] [address] [id number] [place] [address]- 6329 17 Jul, 2014 [facility] [place] [facility] [address] [id number] [place] [address]- 4357 16 Jul, 2014 [facility] [place] [facility] [address] [id number] [place] [address]- 6199 16 Jul, 2014 [facility] [place] [facility] [address] [id number] [place] [address]- 2151 12 Jul, 2014 [facility] [place] [facility] [address] [id number] [place] [address]- 6471 12 Jul, 2014 [facility] [place] [facility] [address] [id number], [place] [address]- 6169 09 Jul, 2014 [facility] [place] [facility] [address] [id number] [place] [address]- 2053 Jul, [facility] [place] [facility] [address] [id number] [place] [address]- 6771 04 Jul, 2014 [facility] [place] [facility] [address] [id number] [place] [address]- 2760 04 Jul, 2014 [facility] [place] [facility] [address] [id number] [place] [address]- 5883 Jun, 2014 [facility] [address] [id number] [place] [address]- 8286 Jun, 2014 [facility] [place] [facility] [address] [id number] [place] [address]- 1096 Jun, 2014 [facility] [address] [id number] [place] [address]- 0206 Jun, 2014 [facility] [place] [facility] [address] [id number] [place] [address]- 1955 May, [facility] [place] [facility] [address] [id number] [place] [address]- 5889 May, [facility] [place] [facility] [address] [id number] [place] [address]- 1975 May, [facility] [place] [facility] [address] [id number] [place] [address]- 8644 May, [facility] [address] [id number] [place] [address]- 7390 Apr, [facility] [place] [facility] [address] [id number] [place] [address]- 6745 Apr, [facility] [place] [facility] [address] [id number] [place] [address]- 6686 Apr, [facility] [place] [facility] [address] [id number] [place] [address]- 5401 Apr, [facility] [place] [facility] [address] [id number] [place] [address]- 4800 Apr, [facility] [place] [facility] [address] [id number] [place] [address]- 5102 Apr, [facility] [place] [facility] [address] [id number] [place] [address]- 1936 Mar, [facility] [place] [facility] [address] [id number] [place]- 4526 Mar, [facility] [place] [facility] [address] [id number] [place] [address]- 4869 Mar, [facility] [place] [facility] [address] [id number] [place] [address]- 4906 Mar, [facility] [place] [facility] [address] [id number] [place] [address]- 0143 Mar, [facility] [place] [facility] [address] [id number] [place] [address]- 1933 Mar, [facility] [place] [facility] [address] [id number] [place] [address]- 8777 Mar, [facility] [place] [facility] [address] [id number] [place] [address]- 7125 Mar, [facility] [place] [facility] [address] [id number] [place] [address]- 1653 Mar, [facility] [place] [facility] [address] [id number] [place] [address]- 9088 Mar, [facility] [place] [facility] [address] [id number] [place] [address]- 3234 Mar, [facility] [place] [facility] [address] [id number] [place] [address]- 0569 Mar, [facility] [place] [facility] [address] [id number] [place] [address]- 8539 Mar, [facility] [place] [facility] [address] [id number], [place] [address]- 3177 Mar, [facility] [place] [facility] [address] [id number] [place] [address]- 7634 Mar, [facility] [place] [facility] [address] [id number] [place] [address]- 4261 Mar, [facility] [place] [facility] [address] [id number] [place] [address]- 7340 Mar, [facility] [place] [facility] [address] [id number] [place] [address]- 0478 30 Feb, 2013 [facility] [place] [facility] [address] [id number] [place] [address] 30 Feb, 2013 [facility] [place] [facility] [address] [id number] [place] [address] 30 Feb, 2013 [facility] [place] [facility] [address] [id number] [place] [address] 30 Feb, 2013 [facility] [place] [facility] [address] [id number] [place] [address] 29 Feb, 2013 [facility] [place] [facility] [address] [id number] [place] [address] 29 Feb, 2013 [facility] [place] [facility] [address] [id number] [place] [address] Feb, 2013 [facility] [place] [facility] [address] [id number] [place] [address] Feb, 2013 [facility] [place] [facility] [address] [id number] [place] [address] 28 Feb, 2013 [facility] [place] [facility] [address] [id number] [place] [address] 28 Feb, 2013 [facility] [place] [facility] [address] [id number] [place] [address] 16 Feb, 2013 [facility] [place] [facility] [address] [id number] [place] [address] 16 Feb, 2013 [facility] [place] [facility] [address] [id number], [place] [address] 15 Feb, 2013 [facility] [place] [facility] [address] [id number] [place] [address] 15 Feb, 2013 [facility] [place] [facility] [address] [id number], [place] [address] 08 Feb, 2013 [facility] [place] [facility] [address] [id number], [place] [address] 08 Feb, 2013 [facility] [place] [facility] [address] [id number] [place] [address] Feb, [facility] [place] [facility] [address] [id number] [place] [address] Feb, [facility] [place] [facility] [address] [id number] [place] [address] Feb, [facility] [place] [facility] [address] [id number] [place] [address] 30 Jan, 2013 [facility] [place] [facility] [address] [id number] [place] [address] 30 Jan, 2013 [facility] [place] [facility] [address] [id number] [place] [address] 29 Jan, 2013 [facility] [place] [facility] [address] [id number] [place] [address] 29 Jan, 2013 [facility] [place] [facility] [address] [id number] [place] [address] 24 Jan, 2013 [facility] [place] [facility] [address] [id number] [place] [address] 25[address] 24 Jan, 2013 [facility] [place] [facility] [address] [id number] [place] [address] 10 Jan, 2014 [facility] [place] [facility] [address] [id number] [place] [address] 08 Jan, 2014 [facility] [place] [facility] [address] [id number] [place] [address] 08 Jan, 2014 [facility] [place] [facility] [address] [id number] [place] [address] 25[address] Dec, [facility] [place] [facility] [address] [id number] [place] [address] Dec, [facility] [place] [facility] [address] [id number] [place] [address] Dec, [facility] [place] [facility] [address] [id number] [place] [address] Dec, [facility] [place] [facility] [address] [id number] [place] [address] Dec, [facility] [place] [facility] [address] [id number] [place] [address] Dec, [facility] [place] [facility] [address] [id number] [place] [address] Dec, [facility] [place] [facility] [address] [id number] [place] [address] Dec, [facility] [place] [facility] [address] [id number] [place] [address]99 Dec, [facility] [place] [facility] [address] [id number] [place] [address] Nov, [facility] [place] [facility] [address] [id number] [place] [address] 9025 Nov, [facility] [place] [facility] [address] [id number] [place] [address] 4723 Nov, [facility] [place] [facility] [address] [id number] [place] [address] 5829 Nov, [facility] [place] [facility] [address] [id number] [place] [address] Nov, [facility] [place] [facility] [address] [id number] [place] [address] 1630 Nov, [facility] [place] [facility] [address] [id number] [place] [address] 7675 Oct, [facility] [place] [facility] [address] [id number] [place] [address] 7225 Oct, [facility] [place] [facility] [address] [id number] [place] [address] 4896 Oct, [facility] [place] [facility] [address] [id number] [place] [address] 9209 Oct, [facility] [place] [facility] [address] [id number] [place] [address] 0759 Oct, [facility] [place] [facility] [address] [id number] [place] [address] 1309 Oct, [facility] [place] [facility] [address] [id number] [place] [address]- 6411 Oct, [facility] [place] [facility] [address] [id number] [place] [address]- 9130 Oct, [facility] [place] [facility] [address] [id number] [place] [address] 8600 Oct, [facility] [place] [facility] [address] [id number] [place] [address]- 3747 Oct, [facility] [place] [facility] [address] [id number] [place] [address]- 3530 Oct, [facility] [place] [facility] [address] [id number] [place] [address] 9901 Oct, [facility] [place] [facility] [address] [id number] [place] [address]- 4793 Oct, [facility] [place] [facility] [address] [id number] [place] [address] 8363 Oct, [facility] [place] [facility] [address] [id number] [place] [address]- 6320 September, [facility] [place] [facility] [address] [id number] [place] [address]- 4315 September, [facility] [place] [facility] [address] [id number] [place] [address]- 8039 September, [facility] [place] [facility] [address] [id number] [place] [address]- 3492 September, [facility] [place] [facility] [address] [id number] [place] [address]- 0817 September, [facility] [place] [facility] [address] [id number] [place] [address]- 5475 September, [facility] [place] [facility] [address] [id number] [place] [address]- 5234 September, [facility] [address] [id number] [place] [address] September, [facility] [address] [id number] [place] [address]- 1615 September, [facility] [place] [facility] [address] [id number] [place] [address] 1701 September, [facility] [address] [id number] [place] [address]- 5115 September, [facility] [place] [facility] [address] [id number] [place] [address] 3107 September, [facility] [address] [id number] [place] [address]- 1815 September, [facility] [address] [id number] [place] [address]- 4844 September, [facility] [address] [id number] [place] [address]- 0367 September, [facility] [place] [facility] [address] [id number] [place] [address]- 0631 September, [facility] [place] [facility] [address] [id number] [place] [address]- 4793 September, [facility] [place] [facility] [address] [id number] [place] [address]- 1267 September, [facility] [place] [facility] [address] [id number] [place] [address]- 1043 September, [facility] [place] [facility] [address] [id number] [place] [address]- 4589 Aug, [facility] [place] [facility] [address] [id number] [place] [address]- 8165 Aug, [facility] [place] [facility] [address] [id number] [place] [address]- 6063 31 Jul, 2013 [facility] [place] [facility] [address] [id number] [place] [address]- 6712 31 Jul, 2013 [facility] [place] [facility] [address] [id number] [place] [address]- 7639 28 Jul, 2013 [facility] [place] [facility] [address] [id number] [place] [address]- 5211 Jul, [facility] [place] [facility] [address] [id number] [place] [address]- 5088 Jul, [facility] [place] [facility] [address] [id number] [place] [address]- 9791 Jul, [facility] [place] [facility] [address] [id number] [place] [address]- 5744 Jul, [facility] [place] [facility] [address] [id number] [place] [address]- 6319 Jul, [facility] [place] [facility] [address] [id number] [place] [address]- 6735 Jul, [facility] [place] [facility] [address] [id number] [place] [address]- 5266 Jul, [facility] [place] [facility] [address] [id number] [place] [address]- 1443 Jul, [facility] [place] [facility] [address] [id number] [place] [address]- 4050 Jul, [facility] [place] [facility] [address] [id number] [place] [address]- 6989 Jul, [facility] [place] [facility] [address] [id number] [place] [address]- 7811 Jul, [facility] [place] [facility] [address] [id number] [place] [address]- 9371 10 Jun, 2013 [facility] [place] [facility] [address] [id number] [place] [address]- 1348 Jun, [facility] [place] [facility] [address] [id number] [place] [address]- 1193 10 Jun, 2013 [facility] [place] [facility] [address] [id number] [place] [address]- 2712 Jun, [facility] [place] [facility] [address] [id number] [place] [address]- 6166 May, [facility] [place] [facility] [address] [id number] [place] [address]- 3923 May, [facility] [place] [facility] [address] [id number] [place] [address]- 5185 May, [facility] [place] [facility] [address] [id number] [place] [address]- 7641 May, [facility] [place] [facility] [address] [id number] [place] [address]- 4492 May, [facility] [place] [facility] [address] [id number] [place] [address]- 1545 Mar, [facility] [place] [facility] [address] [id number] [place] [address]- 4715 Mar, [facility] [place] [facility] [address] [id number] [place] [address]- 2413 Mar, [facility] [place] [facility] [address] [id number] [place] [address]- 3197 Mar, [facility] [place] [facility] [address] [id number] [place] [address]- 4693 Mar, [facility] [place] [facility] [address] [id number] [place] [address]- 0784 Mar, [facility] [place] [facility] [address] [id number] [place] [address]- 3225 Feb, [facility] [place] [facility] [address] [id number] [place] [address]- 6036 Feb, [facility] [place] [facility] [address] [id number] [place] [address]- 3448 Feb, [facility] [place] [facility] [address] [id number] [place] [address]- 4961 Feb, [facility] [place] [facility] [address] [id number] [place] [address]- 1776 Feb, [facility] [place] [facility] [address] [id number] [place] [address]- 7939 Feb, [facility] [place] [facility] [address] [id number] [place] [address]- 5458 Feb, [facility] [place] [facility] [address] [id number] [place] [address]- 0764 Feb, [facility] [place] [facility] [address] [id number] [place] [address]- 3412 Feb, [facility] [place] [facility] [address] [id number] [place] [address]- 4451 Feb, [facility] [place] [facility] [address] [id number], [place] [address]- 9816 Feb, [facility] [place] [facility] [address] [id number] [place] [address]- 6196 Feb, [facility] [place] [facility] [address] [id number], [place] [address]- 3066 Jan, [facility] [place] [facility] [address] [id number], [place] [address] 2542 Jan, [facility] [place] [facility] [address] [id number], [place] [address] 2540 Dec, [facility] [place] [facility] [address] [id number] [place] [address]- 2540 Dec, [facility] [place] [facility] [address] [id number], [place] [address]- 2548 Nov, [facility] [place] [facility] [address] [id number] [place] [address]- 2549 Nov, [facility] [place] [facility] [address] [id number] [place] [address]- 9208 Nov, [facility] [address] [id number] [place] [address]- 2133 Nov, [facility] [place] [facility] [address] [id number] [place] [address] 2546 Nov, [facility] [address] [id number] [place] [address]- 9966 Oct, [facility] [address] [id number] [place] [address]- 2546 September, [facility] [address] [id number] [place] [address]- 9380 Aug, [facility] [address] [id number] [place] [address]- 3126 Jul, [facility] [address] [id number] [place] [address]- 2316 Jul, [facility] [address] [id number] [place] [address]- 3617 Jul, [facility] [address] [id number] [place] [address]- 6336 28 Jun, 2012 [facility] [address] [id number] [place] [address]- 3482 14 Jun, 2012 [facility] [place] [facility] [address] [id number] [place] [address] 2546 Jun, [facility] [address] [id number] [place] [address]- 2547 Jun, [facility] [place] [facility] [address] [id number] [place] [address]- 2546 Jun, [facility] [place] [facility] [address] [id number] [place] [address]- 2546 May, [facility] [place] [facility] [address] [id number] [place] [address]- 4037 May, [facility] [place] [facility] [address] [id number] [place] [address]- 5284 Apr, [facility] [place] [facility] [address] [id number] [place] [address]- 7303 Apr, [facility] [place] [facility] [address] [id number] [place] [address]- 9990 Mar, [facility] [place] [facility] [address] [id number] [place] [address]- 9276 Mar, [facility] [place] [facility] [address] [id number] [place] [address]- 8243 Mar, [facility] [place] [facility] [address] [id number] [place] [address]- 0795 Mar, [facility] [place] [facility] [address] [facility] [id number] [place] [address]- 9178 Mar, [facility] [place] [facility] [address] [id number], [place] [address]- 2586 Mar, [facility] [place] [facility] [address] [id number] [place] [address]- 6065 Mar, [facility] [place] [facility] [address] [facility] [id number], [place] [address]- 0442 Mar, [facility] [place] [facility] [address] [id number], [place] [address]- 6938 Mar, [facility] [place] [facility] [address] [id number], [place] [address]- 2883 Mar, [facility] [place] [facility] [address] [id number] [place] [address]- 2900 Feb, [facility] [place] [facility] [address] [id number], [place] [address]- 6172 Feb, [facility] [place] [facility] [address] [facility] [id number] [place] [address]- 0993 Feb, [facility] [place] [facility] [address] [id number] [place] [address]- 0944 30 Feb, 2012 [facility] [place] [facility] [address] [id number] [place] [address]- 3552 Feb, [facility] [place] [facility] [address] [id number] [place] [address]- 8116 Feb, [facility] [place] [facility] [address] [id number] [place] [address] 2546 Jan, [facility] [place] [facility] [address] [id number] [place] [address] 2548 Jan, [facility] [place] [facility] [address] [id number] [place] [address]- 6840 Dec, [facility] [place] [facility] [address] [id number] [place] [address]- 6030 Dec, [facility] [place] [facility] [address] [id number] [place] [address]- 6174 Dec, [facility] [place] [facility] [address] [id number] [place] [address]- 9367 Nov, [facility] [place] [facility] [address] [id number] [place] [address]- 3595 September, [facility] [place] [facility] [address] [id number] [place] [address]- 5497 September, [facility] [place] [facility] [address] [id number] [place] [address]- 5501 September, [facility] [place] [facility] [address] [id number] [place] [address]- 3137 September, [facility] [place] [facility] [address] [id number] [place] [address]- 7474 Aug, [facility] [place] [facility] [address] [id number] [place] [address]- 7224 Aug, [facility] [place] [facility] [address] [id number] [place] [address]- 8011 Aug, [facility] [place] [facility] [address] [id number] [place] [address]- 4614 Aug, [facility] [place] [facility] [address] [id number] [place] [address]- 5346 Aug, [facility] [place] [facility] [address] [id number] [place] [address]- 0926 Jul, [facility] [place] [facility] [address] [id number] [place] [address]- 8416 Jul, [facility] [place] [facility] [address] [id number] [place] [address]- 1509 Jul, [facility] [place] [facility] [address] [id number] [place] [address]- 4717 29 Jun, 2011 [facility] [place] [facility] [address] [id number] [place] [address]- 5066 17 Jun, 2011 [facility] [place] [facility] [address] [id number] [place] [address]- 0928 Jun, [facility] [place] [facility] [address] [id number] [place] [address]- 0830 Jun, [facility] [place] [facility] [address] [id number] [place] [address]- 5148 Jun, [facility] [place] [facility] [address] [facility] [id number] [place] [address]- 5798 Jun, [facility] [place] [facility] [address] [id number] [place] [address]- 8970 Jun, [facility] [place] [facility] [address] [id number] [place] [address]- 1686 May, [facility] [place] [facility] [address] [id number] [place] [address]- 9026 May, [facility] [place] [facility] [address] [id number] [place] [address]- 3867 May, [facility] [place] [facility] [address] [id number] [place] [address]- 9568 12 May, 2011 [facility] [address] [id number] [place] [address]- 1759 27 Apr, 2011 [facility] [place] [facility] [address] [id number] [place] [address]- 5566 13 Apr, 2011 [facility] [address] [id number] [place] [address]- 1636 Mar, [facility] [place] [facility] [address] [id number] [place] [address]- 0622 Mar, [facility] [address] [id number] [place] [address]- 2368 Mar, [facility] [place] [facility] [address] [id number] [place] [address]- 4787 Nov, [facility] [address] [id number] [place] [address]- 0560 May, [facility] [place] [facility] [address] [id number] [place] [address]- 7113 Apr, [facility] [place] [facility] [address] [id number] [place] [address]- 1162 Apr, [facility] [place] [facility] [address] [id number] [place] [address]- 1513 Apr, [facility] [place] [facility] [address] [id number] [place] [address]- 4789 Apr, [facility] [place] [facility] [address] [id number] [place] [address]- 0987 Apr, [facility] [place] [facility] [address] [id number] [place] [address]- 2937 18 Mar, 2010 [facility] [place] [facility] [address] [id number] [place] [address]- 3149 Mar, [facility] [place] [facility] [address] [id number] [place] [address]- 2116 Feb, [facility] [place] [facility] [address] [id number], [place] [address]- 2546 Aug, [facility] [id number], [place] [address]- 4466 Jul, [facility] [id number], [place] [address]- 2546 Jun, [facility] [id number], [place] [address]- 2546 Apr, [facility] [id number], [place] [address]- 2546 Apr, [facility] [id number], [place] [address]- 2546 Mar, [facility] [id number], [place] [address]- 2546 Mar, [facility] [id number], [place] [address]- 2546 Feb, [facility] [id number], [place] [address]- 0098 Dec, [facility] [address] [id number], [place] [address]- 3826 Oct, IMMUNIZATIONS No Known Immunizations SOCIAL HISTORY Never Assessed [place]AS[place] FOR [place] [place] VITAL SIGNS MEDICATIONS Unknown Medications RESULTS No Results PROCEDURES No Known procedures INSTRUCTIONS MEDICATIONS ADMINISTERED No Known Medications MEDICAL (GENERAL) HISTORY Type Description Date Medical History hypertension Medical History neuropathy Medical History depression Medical History anxiety Medical History Hyposmolality and/or hyponatremia Surgical History cleaned out left side of sinuses 2013 Surgical History colonscopy 09/03/15 Hospitalization History cellulitis 09/2013 Hospitalization History surgery 2013 Hospitalization History A Fib--[facility] 03/08/2016 Hospitalization History acute chest pain, hypertensive urgency, paroxsysmal htn-[facility] 05/10/16
--- OUTSIDE RECORDS SUMMARY | 2018-09-17 11:29 | XMS REPORT ---
Author Author Migration, Doctor Organization [facility] Address Unknown Phone Unavailable Care Team Providers Care Actuarial Analyst Name Role Phone Migration, Doctor Unavailable Unavailable PROBLEMS Type Condition ICD9-CM Code NMU84-TH Code Onset Dates Condition Status SNOMED Code Problem Generalized anxiety disorder F41.1 Active 302990759 Problem Primary insomnia F51.01 Active 130833868 Problem Chronic migraine G43.709 Active 10934011 Problem Mild intermittent asthma without complication J45.20 Active 285786576 Problem Idiopathic peripheral neuropathy G60.9 Active 14009744 Problem Hidradenitis L73.2 Active 69553489 Problem Obstructive sleep apnea G47.33 Active 79497220 Problem Elevated alkaline phosphatase level R74.8 Active 432469279 Problem Vitamin D deficiency E55.9 Active 19637134 Problem Hyponatremia E87.1 Active 74197817 Problem Chronic frontal sinusitis J32.1 Active 46137036 Problem Secondary pulmonary arterial hypertension I27.21 Active 83609819 Problem Hyperlipidemia E78.5 Active 44216598 Problem BMI 40.0-44.9, adult Z68.41 Active 520606832 Problem Essential hypertension I10 Active 14598932 Problem Seasonal allergies J30.2 Active 864697487 Problem Paroxysmal atrial fibrillation I48.0 Active 194748864 Problem Other chronic gastritis without hemorrhage K29.50 Active 5432690 Problem Depression, unspecified depression type F32.9 Active 49118099 Problem Fasciculations of muscle R25.3 Active 19059893 ALLERGIES No Information ENCOUNTERS Encounter Location Date Diagnosis [facility] [address] [facility] [id number] [address] Aug, [facility] [address] [id number] [address] 7665 Jul, Essential hypertension I10 [facility] [address] [id number] [address] 3301 Jul, Essential hypertension I10 [facility] [address] [id number] [address] 0[address] Jul, [facility] [id number] [place] [address] 97151- 9252 Jun, [facility] [id number] [place] [address] 63479- 1295 May, Essential hypertension I10 [facility] [address] 0[address]35- 4942 May, Essential hypertension I10 [facility] [id number] [place] [address] 24092- 9673 Apr, Essential hypertension I10 ; Intertrigo L30.4 ; Mild intermittent asthma without complication J45.20 and BMI 40.0-44.9, adult Z68.41 [facility] [id number] [place] [address] 54755- 7239 Apr, Essential hypertension I10 [facility] [id number] [place] [address] 11534- 6145 Mar, [facility] [id number] [place] [address] 87170- 8372 Mar, [facility] [id number] [place] [address] 20229- 5324 Feb, Essential hypertension I10 [facility] [id number] [place] [address] 36897- 5548 Feb, Intertrigo L30.4 and Encounter for immunization Z23 [facility] [id number] [place] [address] 78175- 1749 Feb, [facility] [address] 02123- 7923 Jan, Essential hypertension I10 [facility] [id number] [place] [address] 65355- 4149 Jan, [facility] [id number] [place] [address] 03386- 4098 Jan, Screening for cervical cancer Z12.4 ; BMI 40.0-44.9, adult Z68.41 ; Screening for breast cancer Z12.31 ; Candidal intertrigo B37.2 and Elevated glucose level R73.09 [place] [address] [address] 2958 Jan, Essential hypertension I10 [place] [facility] [id number] [place] [address] 94152- 6484 Dec, [place] [id number] [place] [address] 30378- 6679 Dec, [place] [id number] [place] [address] 38122- 0738 Dec, Essential hypertension I10 [place] [id number] [place] [address] 27295- 3119 Nov, Essential hypertension I10 [place] [id number] [place] [address] 08946- 1786 Nov, [place] [id number] [place] [address] 89640- 8271 Nov, Essential hypertension I10 and BMI 40.0-44.9, adult Z68.41 [place] [address] [address]- 0486 Oct, Essential hypertension I10 and Chronic kidney disease, unspecified CKD stage N18.9 [place] [facility] [id number] [address]- 6638 Oct, Essential hypertension I10 and Chronic kidney disease, unspecified CKD stage N18.9 [place] [id number] [place] [address] 51989- 1385 Oct, [place] [address] [address]- 7106 September, Medicare annual wellness visit, initial Z00.00 ; Mild intermittent asthma without complication J45.20 ; Generalized anxiety disorder F41.1 ; Depression, unspecified depression type F32.9 ; Paroxysmal atrial fibrillation I48.0 ; Obstructive sleep apnea G47.33 ; Hyponatremia E87.1 ; Need for hepatitis C screening test Z11.59 ; Encounter for immunization Z23 ; Secondary pulmonary arterial hypertension I27.21 and BMI 40.0-44.9, adult Z68.41 [facility] [address] 98428- 5015 30 Aug, 2017 Essential hypertension I10 [facility] [address] 09754 -9288 Jun, Dysuria R30.0 ; UTI symptoms R39.9 and Candidiasis of breast B37.89 [facility] [address] 39718- 2545 Jun, Hyponatremia E87.1 [facility] [address] 66303- 5206 Jun, Hyponatremia E87.1 [facility] [address] 99880- 3034 Jun, Hyponatremia E87.1 [facility] [address] 80290- 5873 Jun, [facility] [address] 56722- 9733 May, Hyponatremia E87.1 [facility] [address] 65764- 5424 May, Hyponatremia E87.1 [facility] [address] 35673- 9144 May, Hyponatremia E87.1 [facility] [address] 59409- 0140 May, Hyponatremia E87.1 [facility] [address] 08316- 7555 Apr, Hyponatremia E87.1 ; Fasciculations of muscle R25.3 and Hyperlipidemia E78.5 [facility] [id number] [place] [address] 41815- 7658 Apr, Cough R05 ; Hyponatremia E87.1 ; Fasciculations of muscle R25.3 ; Primary insomnia F51.01 ; Essential hypertension I10 ; Hyperlipidemia E78.5 ; Screening for breast cancer Z12.31 and BMI 40.0-44.9, adult Z68.41 [facility] [id number] [place] [address] 56180- 7053 Apr, Essential hypertension I10 [facility] [id number] [place] [address] 68372- 9781 Mar, [facility] [id number] [place] [address] 92182- 6712 Mar, [facility] [id number] [place] [address] 15427- 4377 Mar, [facility] [id number] [place] [address] 58541- 2788 Feb, [facility] [id number] [place] [address] 21376- 1051 Jan, [facility] [id number] [place] [address] 52725- 2822 Dec, Essential hypertension I10 [facility] [id number] [place] [address] 35118- 8568 Dec, [facility] [id number] [place] [address] 54401- 5625 Dec, Essential hypertension I10 [facility] [id number] [place] [address] 487154- 9176 Nov, [facility] [id number] [place] [address] 64474- 8540 Oct, Essential hypertension I10 [facility] [id number] [place] [address] 17129- 8658 Oct, Essential hypertension I10 [place] [id number] [place] [address] 21133- 8301 Oct, [facility] [id number] [place] [address] 84728- 4573 September, [place] [id number] [place] [address] 05637- 4789 September, Essential hypertension I10 [place] [address] 59137- 2036 September, [place] [address] 80399- 7813 September, Essential hypertension I10 ; Hyperlipidemia E78.5 and Hyponatremia E87.1 [place] [id number] [place] [address] 21441- 6874 September, Mild intermittent asthma without complication J45.20 ; Essential hypertension I10 ; Hyperlipidemia E78.5 ; Hyponatremia E87.1 and Dysuria R30.0 [place] [id number] [place] [address] 03961- 7713 September, Other chronic gastritis without hemorrhage K29.50 ; Paroxysmal atrial fibrillation I48.0 and Essential hypertension I10 [place] [id number] [place] [address] 53215- 0437 Aug, [facility] [id number] [place] [address] 98148- 3765 14 Jul, 2016 [facility] [id number] [place] [address] 89807- 9427 14 Jun, 2016 [facility] [id number] [place] [address] 86991 -1741 07 Jun, 2016 Dysuria R30.0 and Acute cystitis with hematuria N30.01 [facility] [id number] [place] [address] 06802- 1377 Jun, Essential hypertension I10 [facility] [id number] [place] [address] 46886- 0319 May, Paroxysmal atrial fibrillation I48.0 [facility] [id number] [place] [address] 37342- 3356 May, Other chronic gastritis without hemorrhage K29.50 [facility] [address] 13844- 9718 May, [facility] [id number] [place] [address] 71777- 1904 May, Hyponatremia E87.1 ; Essential hypertension I10 and Other chronic gastritis without hemorrhage K29.50 [facility] [id number] [place] [address] 11827- 7230 May, Hyponatremia E87.1 [facility] [address] 41522- 8315 May, Hyponatremia E87.1 [facility] [address] [id number] May, [facility] [id number] [place] [address] 10971- 8837 Apr, [facility] [id number] [place] [address] 44111- 1437 Apr, [facility] [id number] [place] [address] 56209- 8927 Mar, Essential hypertension I10 and Candidal intertrigo B37.2 [facility] [id number] [place] [address] 48071- 6786 Mar, Hyponatremia E87.1 [facility] [id number] [place] [address] 39540- 1803 14 Mar, 2016 [facility] [id number] [place] [address] 49903- 5847 Mar, Hyponatremia E87.1 [facility] [id number] [place] [address] 15231- 4500 09 Mar, 2016 Essential hypertension I10 ; Hyponatremia E87.1 ; Slurred speech R47.81 ; Paroxysmal atrial fibrillation I48.0 and Elevated blood sugar R73.9 [facility] [id number] [place] [address] 21610- 5159 Mar, [facility] [address] 46528- 3834 Mar, [facility] [address] 88650- 1273 Feb, [place] [address] 99059- 2875 Jan, [facility] [address] 05405- 8939 Dec, [facility] [address] 09618 -2280 Nov, Scratched by cat, initial encounter W55.03XA and Other injury of unspecified body region T14.8 [place] [address] 15882- 3862 Nov, [facility] [id number] [place] [address] 49139- 3466 Oct, [place] [address] 93630- 9828 September, [facility] [address] 21631- 6681 Aug, Elevated alkaline phosphatase level R74.8 [place] [address] 09465- 5314 Jul, [facility] [id number] [place] [address] 71253- 3923 Jun, Essential hypertension I10 and Bright red blood per rectum K62.5 [place] [id number] [place] [address] 90083- 9844 11 Jun, 2015 Elevated alkaline phosphatase level R74.8 [place] [address] 66416- 4882 10 Jun, 2015 [place] [address] 62794- 2789 May, Essential hypertension I10 ; Hyperlipidemia E78.5 and Well woman exam (no gynecological exam) Z00.00 [place] [id number] [place] [address] 12207- 7618 May, [place] [address] 98459- 4905 May, [place] [address] 05615- 4640 Mar, [place] [address] 88977- 1705 Mar, [place] [id number] [place] [address] 31741- 1909 Mar, [place] [id number] [place] [address] 94962- 9044 Feb, Acute recurrent maxillary sinusitis J01.01 ; Asthma, unspecified, unspecified status 493.90 ; Seasonal allergies J30.2 and Cat allergies J30.81 [place] [id number] [place] [address] 31061- 5709 13 Feb, 2015 Upper respiratory tract infection, unspecified upper respiratory infection J06.9 [place] [id number] [place] [address] 50413- 4130 Jan, [place] [address] 15293- 6093 02 Jan, 2015 Dysphagia 787.20 and GERD (gastroesophageal reflux disease) 530.81 [place] [address] 49058- 6326 Jan, Breast lesion 611.9 [facility] [address] [place] [address] 68458- 6286 Dec, Breast lesion 611.9 [facility] [address] [place] [address] 54594- 8316 Dec, Breast lesion 611.9 [facility] [id number] [place] [address] 69556- 4956 Nov, Fatigue 780.79 and Hyperlipidemia 272.4 [facility] [id number] [place] [address] 43264- 6954 Nov, Hypertension 401.9 ; Hyperlipidemia 272.4 ; Chronic frontal sinusitis 473.1 and Fatigue 780.79 [facility] [id number] [place] [address] 64347- 0397 Nov, [facility] [id number] [place] [address] 75169- 9299 Oct, [facility] [address] [place] [address] 61545- 5371 Oct, [facility] [id number] [place] [address] 40433- 8986 September, [facility] [address] [address]- 6206 September, [facility] [address] [address]- 2546 September, [facility] [address] [address]- 2546 September, [facility] [id number] [place] [address] 19388- 2336 Aug, [facility] [address] [address]- 8636 Aug, [facility] [address] [place] [address] 27350- 4415 13 Aug, 2014 [facility] [place] [facility] [address] [id number] [place] [address]- 0649 20 Jul, 2014 [facility] [place] [facility] [address] [id number] [place] [address]- 4225 20 Jul, 2014 [facility] [place] [facility] [address] [id number] [place] [address]- 6003 19 Jul, 2014 [facility] [place] [facility] [address] [id number] [place] [address]- 6085 19 Jul, 2014 [facility] [place] [facility] [address] [id number] [place] [address]- 2130 18 Jul, 2014 [facility] [place] [facility] [address] [id number] [place] [address]- 1263 17 Jul, 2014 [facility] [place] [facility] [address] [id number] [place] [address]- 2810 17 Jul, 2014 [facility] [place] [facility] [address] [id number] [place] [address]- 8742 16 Jul, 2014 [facility] [place] [facility] [address] [id number] [place] [address]- 3889 16 Jul, 2014 [facility] [place] [facility] [address] [id number] [place] [address]- 2682 12 Jul, 2014 [facility] [place] [facility] [address] [id number] [place] [address]- 4733 12 Jul, 2014 [facility] [place] [facility] [address] [id number] [place] [address]- 0153 09 Jul, 2014 [facility] [place] [facility] [address] [id number] [place] [address]- 6217 Jul, [facility] [place] [facility] [address] [id number] [place] [address]- 4837 04 Jul, 2014 [facility] [place] [facility] [address] [id number] [place] [address]- 8608 04 Jul, 2014 [facility] [place] [facility] [address] [id number] [place] [address]- 5855 Jun, 2014 [facility] [address] [id number] [place] [address]- 3276 Jun, 2014 [facility] [place] [facility] [address] [id number] [place] [address]- 2216 Jun, 2014 [facility] [address] [id number] [place] [address]- 9966 Jun, 2014 [facility] [place] [facility] [address] [id number] [place] [address]- 0429 May, [facility] [place] [facility] [address] [id number] [place] [address]- 7099 May, [facility] [place] [facility] [address] [id number] [place] [address]- 7387 May, [facility] [place] [facility] [address] [id number] [place] [address]- 3179 May, [facility] [address] [id number] [place] [address]- 0850 Apr, [facility] [place] [facility] [address] [id number] [place] [address]- 0000 Apr, [facility] [place] [facility] [address] [id number] [place] [address]- 1894 Apr, [facility] [place] [facility] [address] [id number] [place] [address]- 9447 Apr, [facility] [place] [facility] [address] [id number] [place] [address]- 0633 Apr, [facility] [place] [facility] [address] [id number] [place] [address]- 1553 Apr, [facility] [place] [facility] [address] [id number] [place] [address]- 5610 Mar, [facility] [place] [facility] [address] [id number] [id number]- 1072 Mar, [facility] [place] [facility] [address] [id number] [place] [address]- 1431 Mar, [facility] [place] [facility] [address] [id number] [place] [address]- 5647 Mar, [facility] [place] [facility] [address] [id number] [place] [address]- 6833 Mar, [facility] [place] [facility] [address] [id number] [place] [address]- 9614 Mar, [facility] [place] [facility] [address] [id number] [place] [address]- 3724 Mar, [facility] [place] [facility] [address] [id number] [place] [address]- 1702 Mar, [facility] [place] [facility] [address] [id number] [place] [address]- 3118 Mar, [facility] [place] [facility] [address] [id number] [place] [address]- 1262 Mar, [facility] [place] [facility] [address] [id number] [place] [address]- 3001 Mar, [facility] [place] [facility] [address] [id number] [place] [address]- 3629 Mar, [facility] [place] [facility] [address] [id number] [place] [address]- 5619 Mar, [facility] [place] [facility] [address] [id number] [place] [address]- 8373 Mar, [facility] [place] [facility] [address] [id number] [place] [address]- 7942 Mar, [facility] [place] [facility] [address] [id number] [place] [address]- 6615 Mar, [facility] [place] [facility] [address] [id number] [place] [address]- 6177 Mar, [facility] [place] [facility] [address] [id number] [place] [address]- 4266 30 Feb, 2013 [facility] [place] [facility] [address] [id number] [place] [address]- 8807 30 Feb, 2013 [facility] [place] [facility] [address] [id number] [place] [address]- 6758 30 Feb, 2013 [facility] [place] [facility] [address] [id number] [place] [address]- 0279 30 Feb, 2013 [facility] [place] [facility] [address] [id number] [place] [address]- 7506 29 Feb, 2013 [facility] [place] [facility] [address] [id number] [place] [address]- 0672 29 Feb, 2013 [facility] [place] [facility] [address] [id number] [place] [address]- 1523 Feb, 2013 [facility] [place] [facility] [address] [id number] [place] [address]- 1746 Feb, 2013 [facility] [place] [facility] [address] [id number] [place] [address]- 8107 28 Feb, 2013 [facility] [place] [facility] [address] [id number] [place] [address]- 2048 28 Feb, 2013 [facility] [place] [facility] [address] [id number] [place] [address]- 9729 16 Feb, 2013 [facility] [place] [facility] [address] [id number] [place] [address]- 1857 16 Feb, 2013 [facility] [place] [facility] [address] [id number] [place] [address]- 9129 15 Feb, 2013 [facility] [place] [facility] [address] [id number] [place] [address] 15 Feb, 2013 [facility] [place] [facility] [address] [id number] [place] [address] 08 Feb, 2013 [facility] [place] [facility] [address] [id number] [place] [address]- 2021 08 Feb, 2013 [facility] [place] [facility] [address] [id number] [place] [address] Feb, [facility] [place] [facility] [address] [id number] [place] [address] Feb, [facility] [place] [facility] [address] [id number] [place] [address] Feb, [facility] [place] [facility] [address] [id number] [place] [address]46 30 Jan, 2013 [facility] [place] [facility] [address] [id number] [place] [address] 2543 30 Jan, 2013 [facility] [place] [facility] [address] [id number] [place] [address] 2546 29 Jan, 2013 [facility] [place] [facility] [address] [id number] [place] [address]- [address] 29 Jan, 2013 [facility] [place] [facility] [address] [id number] [place] [address]- [address] 24 Jan, 2013 [facility] [place] [facility] [address] [id number] [place] [address] 2542 24 Jan, 2013 [facility] [place] [facility] [address] [id number] [place] [address] 10 Jan, 2014 [facility] [place] [facility] [address] [id number] [place] [address] 2548 08 Jan, 2014 [facility] [place] [facility] [address] [id number] [place] [address]- [address] 08 Jan, 2014 [facility] [place] [facility] [address] [id number] [place] [address] 2545 Dec, [facility] [place] [facility] [address] [id number] [place] [address] 2546 Dec, [facility] [place] [facility] [address] [id number] [place] [address] Dec, [facility] [place] [facility] [address] [id number] [place] [address] Dec, [facility] [place] [facility] [address] [id number] [place] [address] 1987 Dec, [facility] [place] [facility] [address] [id number] [place] [address] Dec, [facility] [place] [facility] [address] [id number] [place] [address] Dec, [facility] [place] [facility] [address] [id number] [place] [address] Dec, [facility] [place] [facility] [address] [id number] [place] [address] Dec, [facility] [place] [facility] [address] [id number] [place] [address]- [address] Nov, [facility] [place] [facility] [address] [id number] [place] [address] Nov, [facility] [place] [facility] [address] [id number] [place] [address] Nov, [facility] [place] [facility] [address] [id number] [place] [address] Nov, [facility] [place] [facility] [address] [id number] [place] [address] Nov, [facility] [place] [facility] [address] [id number] [place] [address] Nov, [facility] [place] [facility] [address] [id number] [place] [address] Oct, [facility] [place] [facility] [address] [id number] [place] [address] Oct, [facility] [place] [facility] [address] [id number] [place] [address] Oct, [facility] [place] [facility] [address] [id number] [place] [address] Oct, [facility] [place] [facility] [address] [id number] [place] [address] Oct, [facility] [place] [facility] [address] [id number] [place] [address] Oct, [facility] [place] [facility] [address] [id number] [place] [address] Oct, [facility] [place] [facility] [address] [id number] [place] [address] Oct, [facility] [place] [facility] [address] [id number] [place] [address] Oct, [facility] [place] [facility] [address] [id number] [place] [address] 4076 Oct, [facility] [place] [facility] [address] [id number] [place] [address] 60[address] Oct, [facility] [place] [facility] [address] [id number] [place] [address] 2670 Oct, [facility] [place] [facility] [address] [id number] [place] [address] Oct, [facility] [place] [facility] [address] [id number] [place] [address] 6619 Oct, [facility] [place] [facility] [address] [id number] [place] [address] 49[address] September, [facility] [place] [facility] [address] [id number] [place] [address] September, [facility] [place] [facility] [address] [id number] [place] [address] 9553 September, [facility] [place] [facility] [address] [id number] [place] [address]- 8666 September, [facility] [place] [facility] [address] [id number] [place] [address]- 9326 September, [facility] [place] [facility] [address] [id number] [place] [address]- 5774 September, [facility] [place] [facility] [address] [id number] [place] [address]- 7525 September, [facility] [address] [id number] [place] [address] September, [facility] [address] [id number] [place] [address]- 3112 September, [facility] [place] [facility] [address] [id number] [place] [address]- 7297 September, [facility] [address] [id number] [place] [address]- [address]461 September, [facility] [place] [facility] [address] [id number] [place] [address] 1104 September, [facility] [address] [id number] [place] [address]- 9803 September, [facility] [address] [id number] [place] [address]- 9064 September, [facility] [address] [id number] [place] [address]- 9211 September, [facility] [place] [facility] [address] [id number] [place] [address]- 8787 September, [facility] [place] [facility] [address] [id number] [place] [address]- 7482 September, [facility] [place] [facility] [address] [id number] [place] [address]- 5283 September, [facility] [place] [facility] [address] [id number] [place] [address]- 2753 September, [facility] [place] [facility] [address] [id number] [place] [address] 5614 Aug, [facility] [place] [facility] [address] [id number] [place] [address]- 3014 Aug, [facility] [place] [facility] [address] [id number] [place] [address]- 7864 31 Jul, 2013 [facility] [place] [facility] [address] [id number] [place] [address]- 9705 31 Jul, 2013 [facility] [place] [facility] [address] [id number] [place] [address]- 6018 28 Jul, 2013 [facility] [place] [facility] [address] [id number] [place] [address]- 7159 Jul, [facility] [place] [facility] [address] [id number] [place] [address]- 6817 Jul, [facility] [place] [facility] [address] [id number] [place] [address]- 7810 Jul, [facility] [place] [facility] [address] [id number] [place] [address]- 9847 Jul, [facility] [place] [facility] [address] [id number] [place] [address]- 2523 Jul, [facility] [place] [facility] [address] [id number] [place] [address]- 6531 Jul, [facility] [place] [facility] [address] [id number] [place] [address]- 0216 Jul, [facility] [place] [facility] [address] [id number] [place] [address]- 6798 Jul, [facility] [place] [facility] [address] [id number] [place] [address]- 9757 Jul, [facility] [place] [facility] [address] [id number] [place] [address]- 7568 Jul, [facility] [place] [facility] [address] [id number] [place] [address]- 1089 Jul, [facility] [place] [facility] [address] [id number] [place] [address]- 9743 10 Jun, 2013 [facility] [place] [facility] [address] [id number] [place] [address]- 4656 Jun, [facility] [place] [facility] [address] [id number] [place] [address]- 3273 10 Jun, 2013 [facility] [place] [facility] [address] [id number] [place] [address]- 5019 Jun, [facility] [place] [facility] [address] [id number] [place] [address]- 7195 May, [facility] [place] [facility] [address] [id number] [place] [address]- 0349 May, [facility] [place] [facility] [address] [id number] [place] [address]- 4255 May, [facility] [place] [facility] [address] [id number] [place] [address]- 3220 May, [facility] [place] [facility] [address] [id number] [place] [address]- 7925 May, [facility] [place] [facility] [address] [id number] [place] [address]- 4908 Mar, [facility] [place] [facility] [address] [id number] [place] [address]- 1476 Mar, [facility] [place] [facility] [address] [id number] [place] [address]- 0015 Mar, [facility] [place] [facility] [address] [id number] [place] [address]- 5655 Mar, [facility] [place] [facility] [address] [id number] [place] [address]- 8564 Mar, [facility] [place] [facility] [address] [id number] [place] [address]- 5686 Mar, [facility] [place] [facility] [address] [id number] [place] [address]- 6423 Feb, [facility] [place] [facility] [address] [id number] [place] [address]- 0317 Feb, [facility] [place] [facility] [address] [id number] [place] [address]- 1245 Feb, [facility] [place] [facility] [address] [id number] [place] [address]- 4396 Feb, [facility] [place] [facility] [address] [id number] [place] [address]- 6337 Feb, [facility] [place] [facility] [address] [id number] [place] [address]- 5052 Feb, [facility] [place] [facility] [address] [id number] [place] [address]- 4780 Feb, [facility] [place] [facility] [address] [id number] [place] [address]- 3274 Feb, [facility] [place] [facility] [address] [id number] [place] [address]- 5911 Feb, [facility] [place] [facility] [address] [id number] [place] [address]- 0388 Feb, [facility] [place] [facility] [address] [id number] [place] [address]- 0385 Feb, [facility] [place] [facility] [address] [id number] [place] [address]- 2887 Feb, [facility] [place] [facility] [address] [id number] [place] [address]- 8679 Jan, [facility] [place] [facility] [address] [id number] [place] [address] 2543 Jan, [facility] [place] [facility] [address] [id number] [place] [address] 2542 Dec, [facility] [place] [facility] [address] [id number] [place] [address]- 2547 Dec, [facility] [place] [facility] [address] [id number] [place] [address]- 2541 Nov, [facility] [place] [facility] [address] [id number] [place] [address]- 2542 Nov, [facility] [place] [facility] [address] [id number] [place] [address]- 4776 Nov, [facility] [address] [id number] [place] [address]- 6615 Nov, [facility] [place] [facility] [address] [id number] [place] [address] 2546 Nov, [facility] [address] [id number] [place] [address]- 1361 Oct, [facility] [address] [id number] [place] [address]- 2546 September, [facility] [address] [id number] [place] [address]- 4870 Aug, [facility] [address] [id number] [place] [address]- 0156 Jul, [facility] [address] [id number] [place] [address]- 0897 Jul, [facility] [address] [id number] [place] [address]- 5360 Jul, [facility] [address] [id number] [place] [address]- 6319 28 Jun, 2012 [facility] [address] [id number] [place] [address]- 1675 14 Jun, [address] [facility] [place] [facility] [address] [id number] [place] [address] 2546 Jun, [facility] [address] [id number] [place] [address]- 2548 Jun, [facility] [place] [facility] [address] [id number] [place] [address]- 2546 Jun, [facility] [place] [facility] [address] [id number] [place] [address]- 2546 May, [facility] [place] [facility] [address] [id number] [place] [address]- 5365 May, [facility] [place] [facility] [address] [id number] [place] [address]- 9426 Apr, [facility] [place] [facility] [address] [id number] [place] [address]- 6758 Apr, [facility] [place] [facility] [address] [id number] [place] [address]- 2886 Mar, [facility] [place] [facility] [address] [id number] [place] [address]- 6788 Mar, [facility] [place] [facility] [address] [id number] [place] [address]- 3717 Mar, [facility] [place] [facility] [address] [id number] [place] [address]- 7684 Mar, [facility] [place] [facility] [address] [facility] [id number] [place] [address]- 2747 Mar, [facility] [place] [facility] [address] [id number] [place] [address]- 3559 Mar, [facility] [place] [facility] [address] [id number] [place] [address]- 3693 Mar, [facility] [place] [facility] [address] [facility] [id number] [place] [address]- 8966 Mar, [facility] [place] [facility] [address] [id number] [place] [address]- 3305 Mar, [facility] [place] [facility] [address] [id number] [place] [address]- 7802 Mar, [facility] [place] [facility] [address] [id number] [place] [address]- 8224 Feb, [facility] [place] [facility] [address] [id number] [place] [address]- 3174 Feb, [facility] [place] [facility] [address] [facility] [id number] [place] [address]- 2524 Feb, [facility] [place] [facility] [address] [id number] [place] [address]- 4889 30 Feb, 2012 [facility] [place] [facility] [address] [id number] [place] [address]- 9008 Feb, [facility] [place] [facility] [address] [id number] [place] [address]- 8566 Feb, [facility] [place] [facility] [address] [id number] [place] [address] 2546 Jan, [facility] [place] [facility] [address] [id number] [place] [address] 2542 Jan, [facility] [place] [facility] [address] [id number] [place] [address]- 8961 Dec, [facility] [place] [facility] [address] [id number] [place] [address]- 8155 Dec, [facility] [place] [facility] [address] [id number] [place] [address]- 2864 Dec, [facility] [place] [facility] [address] [id number] [place] [address]- 8650 Nov, [facility] [place] [facility] [address] [id number] [place] [address]- 7583 September, [facility] [place] [facility] [address] [id number] [place] [address]- 8578 September, [facility] [place] [facility] [address] [id number] [place] [address]- 8178 September, [facility] [place] [facility] [address] [id number] [place] [address]- 1320 September, [facility] [place] [facility] [address] [id number] [place] [address]- 7598 Aug, [facility] [place] [facility] [address] [id number] [place] [address]- 5119 Aug, [facility] [place] [facility] [address] [id number] [place] [address]- 2195 Aug, [facility] [place] [facility] [address] [id number] [place] [address]- 9713 Aug, [facility] [place] [facility] [address] [id number] [place] [address]- 9606 Aug, [facility] [place] [facility] [address] [id number] [place] [address]- 9506 Jul, [facility] [place] [facility] [address] [id number] [place] [address]- 1126 Jul, [facility] [place] [facility] [address] [id number] [place] [address]- 4343 Jul, [facility] [place] [facility] [address] [id number] [place] [address]- 1752 29 Jun, 2011 [facility] [place] [facility] [address] [id number] [place] [address]- 6136 17 Jun, 2011 [facility] [place] [facility] [address] [id number] [place] [address]- 5457 Jun, [facility] [place] [facility] [address] [id number] [place] [address]- 4876 Jun, [facility] [place] [facility] [address] [id number] [place] [address]- 9182 Jun, [facility] [place] [facility] [address] [facility] [id number] [place] [address]- 9900 Jun, [facility] [place] [facility] [address] [id number] [place] [address]- 8554 Jun, [facility] [place] [facility] [address] [id number] [place] [address]- 8779 May, [facility] [place] [facility] [address] [id number] [place] [address]- 9276 May, [facility] [place] [facility] [address] [id number] [place] [address]- 3166 May, [facility] [place] [facility] [address] [id number] [place] [address]- 8109 12 May, 2011 [facility] [address] [id number] [place] [address]- 6265 27 Apr, 2011 [facility] [place] [facility] [address] [id number] [place] [address]- 8246 13 Apr, 2011 [facility] [address] [id number] [place] [address]- 1906 Mar, [facility] [place] [facility] [address] [id number] [place] [address]- 9822 Mar, [facility] [address] [id number] [place] [address]- 9204 Mar, [facility] [place] [facility] [address] [id number] [place] [address]- 1877 Nov, [facility] [address] [id number] [place] [address]- 6951 May, [facility] [place] [facility] [address] [id number] [place] [address]- 4062 Apr, [facility] [place] [facility] [address] [id number] [place] [address]- 0006 Apr, [facility] [place] [facility] [address] [id number] [place] [address]- 8993 Apr, [facility] [place] [facility] [address] [id number] [place] [address]- 9859 Apr, [facility] [place] [facility] [address] [id number] [place] [address]- 1977 Apr, [facility] [place] [facility] [address] [id number] [place] [address]- 3089 18 Mar, 2010 [facility] [place] [facility] [address] [id number] [place] [address]- 7913 Mar, [facility] [place] [facility] [address] [id number] [place] [address]- 5217 Feb, [facility] [place] [facility] [address] [id number] [place] [address]- 2546 Aug, [facility] [id number] [address]- 7966 Jul, [facility] [id number] [address]- 2546 Jun, [facility] [id number] [address]- 2546 Apr, [facility] [id number] [address]- 2546 Apr, [facility] [id number] [address]- 2546 Mar, [facility] [id number] [address]- 2546 Mar, [facility] [id number] [address]- 2546 Feb, [facility] [id number] [address]- 3505 Dec, [facility] [address] [id number] [place] [address]- 9626 Oct, IMMUNIZATIONS No Known Immunizations SOCIAL HISTORY Never Assessed REASON FOR VISIT EMR-[facility] PLAN OF CARE VITAL SIGNS MEDICATIONS Unknown [...] Hospitalization History surgery 2013 Hospitalization History A Fib--[facility] 03/08/2016 Hospitalization History acute chest pain, hypertensive urgency, paroxsysmal htn-[facility] 05/10/16
--- OUTSIDE RECORDS SUMMARY | 2018-09-17 11:29 | XMS REPORT ---
Author Author Migration, Doctor Organization [facility] Address Unknown Phone Unavailable Care Team Providers Care Coppersmith Helper Name Role Phone Migration, Doctor Unavailable Unavailable PROBLEMS Type Condition ICD9-CM Code VIZ97-OL Code Onset Dates Condition Status SNOMED Code Problem Generalized anxiety disorder F41.1 Active 266578931 Problem Primary insomnia F51.01 Active 986394866 Problem Chronic migraine G43.709 Active 58814794 Problem Mild intermittent asthma without complication J45.20 Active 676857525 Problem Idiopathic peripheral neuropathy G60.9 Active 60068169 Problem Hidradenitis L73.2 Active 38514924 Problem Obstructive sleep apnea G47.33 Active 25388983 Problem Elevated alkaline phosphatase level R74.8 Active 143318479 Problem Vitamin D deficiency E55.9 Active 55503404 Problem Hyponatremia E87.1 Active 55787827 Problem Chronic frontal sinusitis J32.1 Active 73398105 Problem Secondary pulmonary arterial hypertension I27.21 Active 97684096 Problem Hyperlipidemia E78.5 Active 89714365 Problem BMI 40.0-44.9, adult Z68.41 Active 497872184 Problem Essential hypertension I10 Active 46230189 Problem Seasonal allergies J30.2 Active 558543293 Problem Paroxysmal atrial fibrillation I48.0 Active 985693496 Problem Other chronic gastritis without hemorrhage K29.50 Active 8308780 Problem Depression, unspecified depression type F32.9 Active 28230846 Problem Fasciculations of muscle R25.3 Active 56348151 ALLERGIES No Information ENCOUNTERS Encounter Location Date Diagnosis [facility] [address] [id number] [address] Aug, [facility] [address] [id number] [address] 3[address] Jul, Essential hypertension I10 [facility] [address] [id number] [address] 4644 Jul, Essential hypertension I10 [facility] [address] [id number] [address] Jul, [facility] [id number] [place] [address] 01321- 8627 Jun, [facility] [id number] [place] [address] 82226- 8115 May, Essential hypertension I10 [facility] [address] 55717- 3511 May, Essential hypertension I10 [facility] [id number] [place] [address] 79536- 9545 Apr, Essential hypertension I10 ; Intertrigo L30.4 ; Mild intermittent asthma without complication J45.20 and BMI 40.0-44.9, adult Z68.41 [facility] [id number] [place] [address] 31531- 0605 Apr, Essential hypertension I10 [facility] [id number] [place] [address] 06223- 6226 Mar, [facility] [id number] [place] [address] 20565- 5463 Mar, [facility] [id number] [place] [address] 62234- 2832 Feb, Essential hypertension I10 [facility] [id number] [place] [address] 93283- 0417 Feb, Intertrigo L30.4 and Encounter for immunization Z23 [facility] [id number] [place] [address] 64674- 8131 Feb, [facility] [address] 52275- 5621 Jan, Essential hypertension I10 [facility] [id number] [place] [address] 21746- 2700 Jan, [facility] [id number] [place] [address] 45156- 7554 Jan, Screening for cervical cancer Z12.4 ; BMI 40.0-44.9, adult Z68.41 ; Screening for breast cancer Z12.31 ; Candidal intertrigo B37.2 and Elevated glucose level R73.09 [facility] [address], [place] [address] 4656 Jan, Essential hypertension I10 [facility] [id number] [place] [address] 66136- 4053 Dec, [facility] [id number] [place] [address] 64800- 6883 Dec, [facility] [id number] [place] [address] 78684- 5285 Dec, Essential hypertension I10 [facility] [id number] [place] [address] 49927- 4861 Nov, Essential hypertension I10 [facility] [id number] [place] [address] 38356- 9788 Nov, [facility] [id number] [place] [address] 93682- 8790 Nov, Essential hypertension I10 and BMI 40.0-44.9, adult Z68.41 [facility] [address], [place] [address]- 0857 Oct, Essential hypertension I10 and Chronic kidney disease, unspecified CKD stage N18.9 [facility] [address] [id number], [place] [address]- 5285 Oct, Essential hypertension I10 and Chronic kidney disease, unspecified CKD stage N18.9 [facility] [id number] [place] [address] 02608- 5932 Oct, [facility] [address], [place] [address] 5703 September, Medicare annual wellness visit, initial Z00.00 ; Mild intermittent asthma without complication J45.20 ; Generalized anxiety disorder F41.1 ; Depression, unspecified depression type F32.9 ; Paroxysmal atrial fibrillation I48.0 ; Obstructive sleep apnea G47.33 ; Hyponatremia E87.1 ; Need for hepatitis C screening test Z11.59 ; Encounter for immunization Z23 ; Secondary pulmonary arterial hypertension I27.21 and BMI 40.0-44.9, adult Z68.41 [facility] [address] 65988- 3676 30 Aug, 2017 Essential hypertension I10 [facility] [address] [address] -2921 Jun, Dysuria R30.0 ; UTI symptoms R39.9 and Candidiasis of breast B37.89 [facility] [address] 23597- 9122 Jun, Hyponatremia E87.1 [facility] [address] 08954- 8142 Jun, Hyponatremia E87.1 [facility] [address] 64497- 2077 Jun, Hyponatremia E87.1 [facility] [address] 49770- 3239 Jun, [facility] [address] 27989- 2187 May, Hyponatremia E87.1 [facility] [address] 79843- 6207 May, Hyponatremia E87.1 [facility] [address] 42521- 3036 May, Hyponatremia E87.1 [facility] [address] 74998- 5077 May, Hyponatremia E87.1 [facility] [address] 44213- 5584 Apr, Hyponatremia E87.1 ; Fasciculations of muscle R25.3 and Hyperlipidemia E78.5 [facility] [id number] [place] [address] 56979- 2976 Apr, Cough R05 ; Hyponatremia E87.1 ; Fasciculations of muscle R25.3 ; Primary insomnia F51.01 ; Essential hypertension I10 ; Hyperlipidemia E78.5 ; Screening for breast cancer Z12.31 and BMI 40.0-44.9, adult Z68.41 [facility] [id number] [place] [address] 82771- 8171 Apr, Essential hypertension I10 [facility] [id number] [place] [address] 58765- 4367 Mar, [facility] [id number] [place] [address] 98058- 6983 Mar, [facility] [id number] [place] [address] 99968- 7950 Mar, [facility] [id number] [place] [address] 27191- 7711 Feb, [facility] [id number] [place] [address] 82288- 2650 Jan, [facility] [id number] [place] [address] 88514- 4106 Dec, Essential hypertension I10 [facility] [id number] [place] [address] 68847- 4701 Dec, [facility] [id number] [place] [address] 63456- 2745 Dec, Essential hypertension I10 [facility] [id number] [place] [address] 490739- 3506 Nov, [facility] [id number] [place] [address] 68050- 0440 Oct, Essential hypertension I10 [facility] [id number] [place] [address] 87185- 9619 Oct, Essential hypertension I10 [facility] [id number] [place] [address] 59532- 5487 Oct, [facility] [id number] [place] [address] 24969- 9482 September, [facility] [facility] [id number] [place] [address] 32433- 2822 September, Essential hypertension I10 [facility] [facility] [address] 29233- 1829 September, [facility] [facility] [address] 83140- 8981 September, Essential hypertension I10 ; Hyperlipidemia E78.5 and Hyponatremia E87.1 [place] [facility] [id number] [place] [address] 83897- 4741 September, Mild intermittent asthma without complication J45.20 ; Essential hypertension I10 ; Hyperlipidemia E78.5 ; Hyponatremia E87.1 and Dysuria R30.0 [place] [facility] [id number] [place] [address] 86870- 7591 September, Other chronic gastritis without hemorrhage K29.50 ; Paroxysmal atrial fibrillation I48.0 and Essential hypertension I10 [facility] [id number] [place] [address] 56799- 5157 Aug, [facility] [id number] [place] [address] 45166- 2008 14 Jul, 2016 [facility] [id number] [place] [address] 41421- 6832 14 Jun, 2016 [facility] [id number] [place] [address] 33671 -5967 07 Jun, 2016 Dysuria R30.0 and Acute cystitis with hematuria N30.01 [facility] [id number] [place] [address] 71730- 0998 Jun, Essential hypertension I10 [facility] [id number] [place] [address] 49208- 3767 May, Paroxysmal atrial fibrillation I48.0 [facility] [id number] [place] [address] 31866- 6986 May, Other chronic gastritis without hemorrhage K29.50 [facility] [address] 36838- 7655 May, [facility] [id number] [place] [address] 09385- 3743 May, Hyponatremia E87.1 ; Essential hypertension I10 and Other chronic gastritis without hemorrhage K29.50 [facility] [id number] [place] [address] 25673- 3703 May, Hyponatremia E87.1 [facility] [address] 90653- 7467 May, Hyponatremia E87.1 [facility] [address] [id number] May, [facility] [id number] [place] [address] 85562- 3791 Apr, [facility] [id number] [place] [address] 17547- 0064 Apr, [facility] [id number] [place] [address] 16936- 1567 Mar, Essential hypertension I10 and Candidal intertrigo B37.2 [facility] [id number] [place] [address] 73095- 1025 Mar, Hyponatremia E87.1 [facility] [id number] [place] [address] 80695- 5093 14 Mar, 2016 [facility] [id number] [place] [address] 04584- 0463 Mar, Hyponatremia E87.1 [facility] [id number] [place] [address] 57521- 8052 09 Mar, 2016 Essential hypertension I10 ; Hyponatremia E87.1 ; Slurred speech R47.81 ; Paroxysmal atrial fibrillation I48.0 and Elevated blood sugar R73.9 [facility] [id number] [place] [address] 79238- 2851 Mar, [facility] [address] 17590- 6454 Mar, [facility] [address] 57720- 7910 Feb, [facility] [facility] [address] 77822- 5069 Jan, [facility] [address] 44388- 4337 Dec, [facility] [address] 43034 -1286 Nov, Scratched by cat, initial encounter W55.03XA and Other injury of unspecified body region T14.8 [facility] [facility] [address] 92611- 3159 Nov, [facility] [id number] [place] [address] 16384- 2077 Oct, [facility] [address] 88965- 3506 September, [facility] [address] 08668- 6225 Aug, Elevated alkaline phosphatase level R74.8 [facility] [facility] [address] 52524- 7341 Jul, [facility] [id number] [place] [address] 95643- 0709 Jun, Essential hypertension I10 and Bright red blood per rectum K62.5 [facility] [id number] [place] [address] 64231- 9536 11 Jun, 2015 Elevated alkaline phosphatase level R74.8 [facility] [facility] [address] 72100- 0879 10 Jun, 2015 [facility] [facility] [address] 48766- 8797 May, Essential hypertension I10 ; Hyperlipidemia E78.5 and Well woman exam (no gynecological exam) Z00.00 [facility] [facility] [id number] [place] [address] 78155- 9180 May, [facility] [facility] [address] 01594- 6022 May, [facility] [facility] [address] 32330- 4202 Mar, [facility] [facility] [address] 14142- 9821 Mar, [facility] [id number] [place] [address] 41679- 3780 Mar, [facility] [facility] [id number] [place] [address] 81087- 5816 Feb, Acute recurrent maxillary sinusitis J01.01 ; Asthma, unspecified, unspecified status 493.90 ; Seasonal allergies J30.2 and Cat allergies J30.81 [facility] [facility] [id number] [place] [address] 09840- 3172 13 Feb, 2015 Upper respiratory tract infection, unspecified upper respiratory infection J06.9 [facility] [facility] [id number] [place] [address] 40787- 4863 Jan, [place] [address] 22387- 1262 02 Jan, 2015 Dysphagia 787.20 and GERD (gastroesophageal reflux disease) 530.81 [place] [address] 28960- 8696 Jan, Breast lesion 611.9 [facility] [address] [place] [address] 20918- 6366 Dec, Breast lesion 611.9 [facility] [address] [place] [address] 83791- 9066 Dec, Breast lesion 611.9 [facility] [id number] [place] [address] 42392- 9106 Nov, Fatigue 780.79 and Hyperlipidemia 272.4 [facility] [id number] [place] [address] 29139- 8991 Nov, Hypertension 401.9 ; Hyperlipidemia 272.4 ; Chronic frontal sinusitis 473.1 and Fatigue 780.79 [facility] [id number] [place] [address] 89561- 9899 Nov, [facility] [id number] [place] [address] 94479- 4085 Oct, [facility] [address] [place] [address] 58212- 5113 Oct, [facility] [id number] [place] [address] 40489- 3506 September, [facility] [address], [place] [address]- 9406 September, [facility] [address], [place] [address]- 2546 September, [facility] [address], [place] [address]- 2546 September, [facility] [id number] [place] [address] 89960- 8666 Aug, [facility] [address], [place] [address]- 5376 Aug, [facility] [address] [place] [address] 27154- 9643 13 Aug, 2014 [facility] [place] [facility] [address] [id number] [place] [address]- 0152 20 Jul, 2014 [facility] [place] [facility] [address] [id number] [place] [address]- 6490 20 Jul, 2014 [facility] [place] [facility] [address] [id number] [place] [address]- 4011 19 Jul, 2014 [facility] [place] [facility] [address] [id number] [place] [address]- 0147 19 Jul, 2014 [facility] [place] [facility] [address] [id number] [place] [address]- 1178 18 Jul, 2014 [facility] [place] [facility] [address] [id number] [place] [address]- 6956 17 Jul, 2014 [facility] [place] [facility] [address] [id number] [place] [address]- 2088 17 Jul, 2014 [facility] [place] [facility] [address] [id number] [place] [address]- 3191 16 Jul, 2014 [facility] [place] [facility] [address] [id number] [place] [address]- 3913 16 Jul, 2014 [facility] [place] [facility] [address] [id number] [place] [address]- 6382 12 Jul, 2014 [facility] [place] [facility] [address] [id number] [place] [address]- 4097 12 Jul, 2014 [facility] [place] [facility] [address] [id number] [address]- 3453 09 Jul, 2014 [facility] [place] [facility] [address] [id number] [place] [address]- 7268 Jul, [facility] [place] [facility] [address] [id number] [place] [address]- 1277 04 Jul, 2014 [facility] [place] [facility] [address] [id number] [place] [address]- 8304 04 Jul, 2014 [facility] [place] [facility] [address] [id number] [place] [address]- 4459 Jun, 2014 [facility] [address] [id number] [place] [address]- 9696 Jun, 2014 [facility] [place] [facility] [address] [id number] [place] [address]- 3716 Jun, 2014 [facility] [address] [id number] [place] [address]- 7406 Jun, 2014 [facility] [place] [facility] [address] [id number] [place] [address]- 7702 May, [facility] [place] [facility] [address] [id number] [place] [address]- 9091 May, [facility] [place] [facility] [address] [id number] [place] [address]- 6910 May, [facility] [place] [facility] [address] [id number] [place] [address]- 6783 May, [facility] [address] [id number] [place] [address]- 6062 Apr, [facility] [place] [facility] [address] [id number] [place] [address]- 3995 Apr, [facility] [place] [facility] [address] [id number] [place] [address]- 5177 Apr, [facility] [place] [facility] [address] [id number] [place] [address]- 7068 Apr, [facility] [place] [facility] [address] [id number] [place] [address]- 0400 Apr, [facility] [place] [facility] [address] [id number] [place] [address]- 6924 Apr, [facility] [place] [facility] [address] [id number] [place] [address]- 5358 Mar, [facility] [place] [facility] [address] [id number] [place] 1490 Mar, [facility] [place] [facility] [address] [id number] [place] [address]- 3572 Mar, [facility] [place] [facility] [address] [id number] [place] [address]- 8784 Mar, [facility] [place] [facility] [address] [id number] [place] [address]- 6041 Mar, [facility] [place] [facility] [address] [id number] [place] [address]- 1788 Mar, [facility] [place] [facility] [address] [id number] [place] [address]- 3179 Mar, [facility] [place] [facility] [address] [id number] [place] [address]- 6408 Mar, [facility] [place] [facility] [address] [id number] [place] [address]- 9440 Mar, [facility] [place] [facility] [address] [id number] [place] [address]- 3167 Mar, [facility] [place] [facility] [address] [id number] [place] [address]- 7875 Mar, [facility] [place] [facility] [address] [id number] [place] [address]- 0708 Mar, [facility] [place] [facility] [address] [id number] [place] [address]- 5531 Mar, [facility] [place] [facility] [address] [id number], [place] [address]- 9679 Mar, [facility] [place] [facility] [address] [id number] [place] [address] Mar, [facility] [place] [facility] [address] [id number] [place] [address] Mar, [facility] [place] [facility] [address] [id number] [place] [address] Mar, [facility] [place] [facility] [address] [id number] [place] [address] 30 Feb, 2013 [facility] [place] [facility] [address] [id number] [place] [address] 30 Feb, 2013 [facility] [place] [facility] [address] [id number] [place] [address] 30 Feb, 2013 [facility] [place] [facility] [address] [id number] [place] [address] 30 Feb, 2013 [facility] [place] [facility] [address] [id number] [place] [address] 29 Feb, 2013 [facility] [place] [facility] [address] [id number] [place] [address] 29 Feb, 2013 [facility] [place] [facility] [address] [id number] [place] [address] Feb, 2013 [facility] [place] [facility] [address] [id number] [place] [address] Feb, 2013 [facility] [place] [facility] [address] [id number] [place] [address] 28 Feb, 2013 [facility] [place] [facility] [address] [id number] [place] [address] 28 Feb, 2013 [facility] [place] [facility] [address] [id number] [place] [address] 9470 16 Feb, 2013 [facility] [place] [facility] [address] [id number] [place] [address] 1991 16 Feb, 2013 [facility] [place] [facility] [address] [id number], [place] [address] 15 Feb, 2013 [facility] [place] [facility] [address] [id number] [place] [address] 15 Feb, 2013 [facility] [place] [facility] [address] [id number], [place] [address] 08 Feb, 2013 [facility] [place] [facility] [address] [id number], [place] [address] 08 Feb, 2013 [facility] [place] [facility] [address] [id number] [place] [address] Feb, [facility] [place] [facility] [address] [id number] [place] [address] Feb, [facility] [place] [facility] [address] [id number] [place] [address] Feb, [facility] [place] [facility] [address] [id number] [place] [address] 30 Jan, 2013 [facility] [place] [facility] [address] [id number] [place] [address] 2549 30 Jan, 2013 [facility] [place] [facility] [address] [id number] [place] [address] 2546 29 Jan, 2013 [facility] [place] [facility] [address] [id number] [place] [address] 1997 29 Jan, 2013 [facility] [place] [facility] [address] [id number] [place] [address] 24 Jan, 2013 [facility] [place] [facility] [address] [id number] [place] [address] 2542 24 Jan, 2013 [facility] [place] [facility] [address] [id number] [place] [address] 10 Jan, 2014 [facility] [place] [facility] [address] [id number] [place] [address] 254 08 Jan, 2014 [facility] [place] [facility] [address] [id number] [place] [address] 08 Jan, 2014 [facility] [place] [facility] [address] [id number] [place] [address] 25[address] Dec, [facility] [place] [facility] [address] [id number] [place] [address] 2546 Dec, [facility] [place] [facility] [address] [id number] [place] [address] Dec, [facility] [place] [facility] [address] [id number] [place] [address] Dec, [facility] [place] [facility] [address] [id number] [place] [address] Dec, [facility] [place] [facility] [address] [id number] [place] [address] Dec, [facility] [place] [facility] [address] [id number] [place] [address] Dec, [facility] [place] [facility] [address] [id number] [place] [address] Dec, [facility] [place] [facility] [address] [id number] [place] [address] Dec, [facility] [place] [facility] [address] [id number] [place] [address] Nov, [facility] [facility] [address] [id number] [place] [address] Nov, [facility] [place] [facility] [address] [id number] [place] [address] Nov, [facility] [place] [facility] [address] [id number] [place] [address] Nov, [facility] [place] [facility] [address] [id number] [place] [address] Nov, [facility] [place] [facility] [address] [id number] [place] [address] 8653 Nov, [facility] [place] [facility] [address] [id number] [place] [address] Oct, [facility] [place] [facility] [address] [id number] [place] [address] 5948 Oct, [facility] [place] [facility] [address] [id number] [place] [address] 66[address] Oct, [facility] [place] [address] [id number] [place] [address] 46[address] Oct, [facility] [place] [facility] [address] [id number] [place] [address] 9089 Oct, [facility] [place] [facility] [address] [id number] [place] [address] 9653 Oct, [facility] [facility] [address] [id number] [place] [address] 8132 Oct, [facility] [place] [facility] [address] [id number] [place] [address] 4029 Oct, [facility] [place] [facility] [address] [id number] [place] [address]- 0431 Oct, [facility] [address] [id number] [place] [address] 9027 Oct, [facility] [place] [address] [id number] [place] [address]- 4878 Oct, [facility] [place] [facility] [address] [id number] [place] [address]- 9565 Oct, [facility] [address] [id number] [place] [address]- 2883 Oct, [facility] [place] [address] [id number] [place] [address]- 4959 Oct, [facility] [place] [facility] [address] [id number] [place] [address] 1439 September, [facility] [address] [id number] [place] [address]- 8263 September, [facility] [address] [id number] [place] [address]- 3648 September, [facility] [facility] [address] [id number] [place] [address]- 0339 September, [facility] [address] [id number] [place] [address]- 7357 September, [facility] [address] [id number] [place] [address]- 6986 September, [facility] [address] [id number] [place] [address]- 0628 September, [facility] [address] [id number] [place] [address] September, [facility] [address] [id number] [place] [address] 1915 September, [facility] [address] [id number] [place] [address] 7437 September, [facility] [address] [id number] [place] [address]- 3807 September, [facility] [address] [id number] [place] [address]- 7545 September, [facility] [address] [id number] [place] [address]- 0621 September, [facility] [address] [id number] [place] [address]- 1620 September, [facility] [address] [id number] [place] [address]- 5150 September, [facility] [address] [id number] [place] [address]- 1192 September, [facility] [address] [id number] [place] [address]- 8533 September, [facility] [address] [id number] [place] [address]- 4346 September, [facility] [address] [id number] [place] [address]- 6322 September, [facility] [address] [id number] [place] [address]- 3387 Aug, [facility] [address] [id number] [place] [address]- 2779 Aug, [facility] [address] [id number] [place] [address]- 4200 31 Jul, 2013 [facility] [address] [id number] [place] [address]- 6784 31 Jul, 2013 [facility] [address] [id number] [place] [address]- 5027 28 Jul, 2013 [facility] [address] [id number] [place] [address]- 3447 Jul, [facility] [address] [id number] [place] [address]- 1778 Jul, [facility] [address] [id number] [place] [address]- 9295 Jul, [facility] [address] [id number] [place] [address]- 5480 Jul, [facility] [address] [id number] [place] [address]- 8786 Jul, [facility] [address] [id number] [place] [address]- 7780 Jul, [facility] [address] [id number] [place] [address]- 2875 Jul, [facility] [address] [id number] [place] [address]- 8936 Jul, [facility] [address] [id number] [place] [address]- 9848 Jul, [facility] [address] [id number] [place] [address]- 2490 Jul, [facility] [address] [id number] [place] [address]- 0118 Jul, [facility] [address] [id number] [place] [address]- 3969 10 Jun, 2013 [facility] [address] [id number] [place] [address]- 8698 Jun, [facility] [address] [id number] [place] [address]- 1738 10 Jun, 2013 [facility] [address] [id number] [place] [address]- 1344 Jun, [facility] [address] [id number] [place] [address]- 3613 May, [facility] [address] [id number] [place] [address]- 3658 May, [facility] [address] [id number] [place] [address]- 3799 May, [facility] [address] [id number] [place] [address]- 2414 May, [facility] [address] [id number] [place] [address]- 1423 May, [facility] [address] [id number] [place] [address]- 2961 Mar, [facility] [address] [id number] [place] [address]- 9347 Mar, [facility] [address] [id number] [place] [address]- 8353 Mar, [facility] [address] [id number] [place] [address]- 7870 Mar, [facility] [address] [id number] [place] [address]- 0907 Mar, [facility] [address] [id number] [place] [address]- 7975 Mar, [facility] [address] [id number] [place] [address]- 8805 Feb, [facility] [address] [id number] [place] [address]- 2625 Feb, [facility] [address] [id number] [place] [address]- 3221 Feb, [facility] [address] [id number] [place] [address]- 0352 Feb, [facility] [address] [id number] [place] [address]- 1867 Feb, [facility] [address] [id number] [place] [address]- 4630 Feb, [facility] [address] [id number] [place] [address]- 1348 Feb, [facility] [address] [id number] [place] [address]- 4954 Feb, [facility] [address] [id number] [place] [address]- 6593 Feb, [facility] [address] [id number] [place] [address]- 8276 Feb, [facility] [address] [id number], [place] [address]- 7923 Feb, [facility] [address] [id number] [place] [address]- 1027 Feb, [facility] [address] [id number], [place] [address]- 2593 Jan, [facility] [address] [id number], [place] [address] 2549 Jan, [facility] [address] [id number], [place] [address] 2541 Dec, [facility] [address] [id number] [place] [address]- 2541 Dec, [facility] [address] [id number], [place] [address]- 2544 Nov, [facility] [address] [id number] [place] [address]- 2541 Nov, [facility] [address] [id number] [place] [address]- 9485 Nov, [facility] [address] [id number] [place] [address]- 1190 Nov, [facility] [address] [id number] [place] [address] 2546 Nov, [facility] [address] [id number] [place] [address]- 0574 Oct, [facility] [address] [id number] [place] [address]- 2546 September, [facility] [address] [id number] [place] [address]- 1482 Aug, [facility] [address] [id number] [place] [address]- 1366 Jul, [facility] [address] [id number] [place] [address]- 1179 Jul, [facility] [address] [id number] [place] [address]- 4428 Jul, [facility] [address] [id number] [place] [address]- 6769 28 Jun, 2012 [facility] [address] [id number] [place] [address]- 7105 14 Jun, 2012 [facility] [address] [id number] [place] [address] 2546 Jun, [facility] [address] [id number] [place] [address]- 2548 Jun, [facility] [address] [id number] [place] [address]- 2546 Jun, [facility] [address] [id number] [place] [address]- 2546 May, [facility] [address] [id number] [place] [address]- 2886 May, [facility] [address] [id number] [place] [address]- 5224 Apr, [facility] [address] [id number] [place] [address]- 0198 Apr, [facility] [address] [id number] [place] [address]- 1801 Mar, [facility] [address] [id number] [place] [address]- 7128 Mar, [facility] [address] [id number] [place] [address]- 3332 Mar, [facility] [address] [id number] [place] [address]- 8389 Mar, [facility] [address] [facility] [id number] [place] [address]- 2968 Mar, [facility] [address] [id number], [place] [address]- 1777 Mar, [facility] [address] [id number] [place] [address]- 2837 Mar, [facility] [address] [facility] [id number], [place] [address]- 8468 Mar, [facility] [address] [id number], [place] [address]- 4902 Mar, [facility] [address] [id number], [place] [address]- 7945 Mar, [facility] [address] [id number] [place] [address]- 4220 Feb, [facility] [address] [id number], [place] [address]- 4684 Feb, [facility] [address] [facility] [id number] [place] [address]- 9323 Feb, [facility] [address] [id number] [place] [address]- 1408 30 Feb, 2012 [facility] [address] [id number] [place] [address]- 3823 Feb, [facility] [address] [id number] [place] [address]- 6576 Feb, [facility] [address] [id number] [place] [address] 2546 Jan, [facility] [address] [id number] [place] [address] 2549 Jan, [facility] [address] [id number] [place] [address]- 2439 Dec, [facility] [address] [id number] [place] [address]- 0947 Dec, [facility] [address] [id number] [place] [address]- 0219 Dec, [facility] [address] [id number] [place] [address]- 5909 Nov, [facility] [address] [id number] [place] [address]- 0679 September, [facility] [address] [id number] [place] [address]- 1657 September, [facility] [address] [id number] [place] [address]- 6732 September, [facility] [address] [id number] [place] [address]- 6501 September, [facility] [address] [id number] [place] [address]- 6716 Aug, [facility] [address] [id number] [place] [address]- 6158 Aug, [facility] [address] [id number] [place] [address]- 3790 Aug, [facility] [facility] [address] [id number] [place] [address]- 6930 Aug, [facility] [address] [id number] [place] [address]- 6976 Aug, [facility] [facility] [address] [id number] [place] [address]- 3096 Jul, [facility] [facility] [address] [id number] [place] [address]- 1066 Jul, [facility] [address] [id number] [place] [address]- 7672 Jul, [facility] [address] [id number] [place] [address]- 9029 29 Jun, 2011 [facility] [address] [id number] [place] [address]- 4096 17 Jun, 2011 [facility] [facility] [address] [id number] [place] [address]- 4362 Jun, [facility] [facility] [address] [id number] [place] [address]- 7312 Jun, [facility] [address] [id number] [place] [address]- 6055 Jun, [facility] [address] [facility] [id number] [place] [address]- 6044 Jun, [facility] [facility] [address] [id number] [place] [address]- 7244 Jun, [facility] [place] [facility] [address] [id number] [place] [address]- 3627 May, [facility] [place] [facility] [address] [id number] [place] [address]- 0616 May, [facility] [place] [facility] [address] [id number] [place] [address]- 4558 May, [facility] [place] [facility] [address] [id number] [place] [address]- 4295 12 May, 2011 [facility] [address] [id number] [place] [address]- 9389 27 Apr, 2011 [facility] [facility] [address] [id number] [place] [address]- 1936 13 Apr, 2011 [facility] [address] [id number] [place] [address]- 5216 Mar, [facility] [place] [facility] [address] [id number] [place] [address]- 7164 Mar, [facility] [address] [id number] [place] [address]- 3351 Mar, [facility] [place] [facility] [address] [id number] [place] [address]- 5206 Nov, [facility] [address] [id number] [place] [address]- 3338 May, [facility] [place] [facility] [address] [id number] [place] [address]- 0772 Apr, [facility] [place] [facility] [address] [id number] [place] [address]- 1292 Apr, [facility] [place] [facility] [address] [id number] [place] [address]- 6904 Apr, [facility] [place] [facility] [address] [id number] [place] [address]- 8016 Apr, [facility] [place] [facility] [address] [id number] [place] [address]- 7103 Apr, [facility] [place] [facility] [address] [id number] [place] [address]- 8894 18 Mar, 2010 [facility] [place] [facility] [address] [id number] [place] [address]- 0161 Mar, [facility] [place] [facility] [address] [id number] [place] [address]- 0197 Feb, [facility] [place] [facility] [address] [id number], [place] [address]- 2546 Aug, [facility] [id number], [place] [address]- 7376 Jul, [facility] [id number], [place] [address]- 2546 Jun, [facility] [id number], [place] [address]- 2546 Apr, [facility] [id number], [place] [address]- 2546 Apr, [facility] [id number], [place] [address]- 2546 Mar, [facility] [id number], [place] [address]- 2546 Mar, [facility] [id number], [place] [address]- 2546 Feb, [facility] [id number], [place] [address]- 0299 Dec, [facility] [address] [id number], [place] [address]- 1406 Oct, IMMUNIZATIONS No Known Immunizations SOCIAL HISTORY Never Assessed REASON FOR VISIT EMR-[facility] PLAN OF CARE VITAL SIGNS MEDICATIONS Unknown [...] Hospitalization History surgery 2013 Hospitalization History A Fib--[facility] 03/08/2016 Hospitalization History acute chest pain, hypertensive urgency, paroxsysmal htn-[facility] 05/10/16
--- OUTSIDE RECORDS SUMMARY | 2018-09-17 11:30 | XMS REPORT ---
Author Author Migration, Doctor Organization [facility] Address Unknown Phone Unavailable Care Team Providers Care Cage Tender Name Role Phone Migration, Doctor Unavailable Unavailable PROBLEMS Type Condition ICD9-CM Code QRL56-RF Code Onset Dates Condition Status SNOMED Code Problem Generalized anxiety disorder F41.1 Active 422037656 Problem Primary insomnia F51.01 Active 356215456 Problem Chronic migraine G43.709 Active 19222789 Problem Mild intermittent asthma without complication J45.20 Active 808350782 Problem Idiopathic peripheral neuropathy G60.9 Active 97981687 Problem Hidradenitis L73.2 Active 15469891 Problem Obstructive sleep apnea G47.33 Active 03500357 Problem Elevated alkaline phosphatase level R74.8 Active 620620563 Problem Vitamin D deficiency E55.9 Active 46486119 Problem Hyponatremia E87.1 Active 63194601 Problem Chronic frontal sinusitis J32.1 Active 35373204 Problem Secondary pulmonary arterial hypertension I27.21 Active 30368363 Problem Hyperlipidemia E78.5 Active 94315495 Problem BMI 40.0-44.9, adult Z68.41 Active 593253820 Problem Essential hypertension I10 Active 38907298 Problem Seasonal allergies J30.2 Active 917552842 Problem Paroxysmal atrial fibrillation I48.0 Active 886147527 Problem Other chronic gastritis without hemorrhage K29.50 Active 0802306 Problem Depression, unspecified depression type F32.9 Active 01489840 Problem Fasciculations of muscle R25.3 Active 78018795 ALLERGIES No Information ENCOUNTERS Encounter Location Date Diagnosis [facility] [address] [facility] [id number] [address] Aug, [facility] [address] [id number] [address] Jul, Essential hypertension I10 [facility] [address] [id number] [address] 4965 Jul, Essential hypertension I10 [facility] [address] [id number] [address] 3707 Jul, [facility] [id number] [place] [address] 09791- 9016 Jun, [facility] [id number] [place] [address] 10873- 4962 May, Essential hypertension I10 [facility] [address] 29379- 1806 May, Essential hypertension I10 [facility] [id number] [place] [address] 08031- 8185 Apr, Essential hypertension I10 ; Intertrigo L30.4 ; Mild intermittent asthma without complication J45.20 and BMI 40.0-44.9, adult Z68.41 [facility] [id number] [place] [address] 32800- 9044 Apr, Essential hypertension I10 [facility] [id number] [place] [address] 27083- 4110 Mar, [facility] [id number] [place] [address] 01567- 3742 Mar, [facility] [id number] [place] [address] 32222- 6310 Feb, Essential hypertension I10 [facility] [id number] [place] [address] 59639- 4155 Feb, Intertrigo L30.4 and Encounter for immunization Z23 [facility] [id number] [place] [address] 23460- 3624 Feb, [facility] [address] 40846- 2460 Jan, Essential hypertension I10 [facility] [id number] [place] [address] 02652- 8190 Jan, [facility] [id number] [place] [address] 21115- 9311 Jan, Screening for cervical cancer Z12.4 ; BMI 40.0-44.9, adult Z68.41 ; Screening for breast cancer Z12.31 ; Candidal intertrigo B37.2 and Elevated glucose level R73.09 [address] [address] 6025 Jan, Essential hypertension I10 [facility] [id number] [place] [address] 66436- 5178 Dec, [facility] [id number] [place] [address] 84074- 7799 Dec, [facility] [id number] [place] [address] 01591- 7232 Dec, Essential hypertension I10 [facility] [id number] [place] [address] 43651- 9851 Nov, Essential hypertension I10 [facility] [id number] [place] [address] 81962- 9550 Nov, [facility] [id number] [place] [address] 82139- 8053 Nov, Essential hypertension I10 and BMI 40.0-44.9, adult Z68.41 [facility] [address], [place] [address] 7749 Oct, Essential hypertension I10 and Chronic kidney disease, unspecified CKD stage N18.9 [facility] [id number], [place] [address]- 7464 Oct, Essential hypertension I10 and Chronic kidney disease, unspecified CKD stage N18.9 [facility] [id number] [place] [address] 42718- 6543 Oct, [facility] [address] [address]- 0949 September, Medicare annual wellness visit, initial Z00.00 ; Mild intermittent asthma without complication J45.20 ; Generalized anxiety disorder F41.1 ; Depression, unspecified depression type F32.9 ; Paroxysmal atrial fibrillation I48.0 ; Obstructive sleep apnea G47.33 ; Hyponatremia E87.1 ; Need for hepatitis C screening test Z11.59 ; Encounter for immunization Z23 ; Secondary pulmonary arterial hypertension I27.21 and BMI 40.0-44.9, adult Z68.41 [facility] [address] 26585- 1290 30 Aug, 2017 Essential hypertension I10 [facility] [address] 43323 -8795 Jun, Dysuria R30.0 ; UTI symptoms R39.9 and Candidiasis of breast B37.89 [facility] [address] 71039- 7141 Jun, Hyponatremia E87.1 [facility] [address] 00336- 5135 Jun, Hyponatremia E87.1 [facility] [address] 14817- 5959 Jun, Hyponatremia E87.1 [facility] [address] 07837- 1871 Jun, [facility] [address] 44548- 0618 May, Hyponatremia E87.1 [facility] [address] 60426- 3576 May, Hyponatremia E87.1 [facility] [address] 13721- 9821 May, Hyponatremia E87.1 [facility] [address] 38433- 3899 May, Hyponatremia E87.1 [facility] [address] 19514- 3748 Apr, Hyponatremia E87.1 ; Fasciculations of muscle R25.3 and Hyperlipidemia E78.5 [facility] [id number] [place] [address] 38732- 7411 Apr, Cough R05 ; Hyponatremia E87.1 ; Fasciculations of muscle R25.3 ; Primary insomnia F51.01 ; Essential hypertension I10 ; Hyperlipidemia E78.5 ; Screening for breast cancer Z12.31 and BMI 40.0-44.9, adult Z68.41 [facility] [id number] [place] [address] 10936- 1393 Apr, Essential hypertension I10 [facility] [id number] [place] [address] 83051- 5656 Mar, [facility] [id number] [place] [address] 72022- 0462 Mar, [facility] [id number] [place] [address] 45746- 4624 Mar, [facility] [id number] [place] [address] 24322- 7173 Feb, [facility] [id number] [place] [address] 90962- 0304 Jan, [facility] [id number] [place] [address] 87614- 9298 Dec, Essential hypertension I10 [facility] [id number] [place] [address] 36329- 3003 Dec, [facility] [id number] [place] [address] 65660- 3635 Dec, Essential hypertension I10 [facility] [id number] [place] [address] 949524- 1486 Nov, [facility] [id number] [place] [address] 21268- 4605 Oct, Essential hypertension I10 [facility] [id number] [place] [address] 95467- 1546 Oct, Essential hypertension I10 [address] [id number] [place] [address] 24140- 1639 Oct, [facility] [id number] [place] [address] 31273- 3885 September, [facility] [id number] [place] [address] 77853- 8266 September, Essential hypertension I10 [address] [address] 38911- 7402 September, [place] [address] 63881- 3662 September, Essential hypertension I10 ; Hyperlipidemia E78.5 and Hyponatremia E87.1 [address] [facility] [id number] [place] [address] 31466- 5233 September, Mild intermittent asthma without complication J45.20 ; Essential hypertension I10 ; Hyperlipidemia E78.5 ; Hyponatremia E87.1 and Dysuria R30.0 [address] [place] [id number] [place] [address] 08413- 9910 September, Other chronic gastritis without hemorrhage K29.50 ; Paroxysmal atrial fibrillation I48.0 and Essential hypertension I10 [address] [id number] [place] [address] 10098- 8019 Aug, [facility] [id number] [place] [address] 14431- 9165 14 Jul, 2016 [facility] [id number] [place] [address] 59602- 8940 14 Jun, 2016 [facility] [id number] [place] [address] 63838 -8152 07 Jun, 2016 Dysuria R30.0 and Acute cystitis with hematuria N30.01 [facility] [id number] [place] [address] 22978- 9073 Jun, Essential hypertension I10 [facility] [id number] [place] [address] 77696- 5021 May, Paroxysmal atrial fibrillation I48.0 [facility] [id number] [place] [address] 06291- 1714 May, Other chronic gastritis without hemorrhage K29.50 [facility] [address] 84696- 3473 May, [facility] [id number] [place] [address] 86214- 7082 May, Hyponatremia E87.1 ; Essential hypertension I10 and Other chronic gastritis without hemorrhage K29.50 [facility] [id number] [place] [address] 18188- 5906 May, Hyponatremia E87.1 [facility] [address] 47068- 4322 May, Hyponatremia E87.1 [facility] [address] [id number] May, [facility] [id number] [place] [address] 52473- 3701 Apr, [facility] [id number] [place] [address] 71030- 8375 Apr, [facility] [id number] [place] [address] 03734- 6544 Mar, Essential hypertension I10 and Candidal intertrigo B37.2 [facility] [id number] [place] [address] 67472- 8028 Mar, Hyponatremia E87.1 [facility] [id number] [place] [address] 22563- 8954 14 Mar, 2016 [facility] [id number] [place] [address] 94074- 7393 Mar, Hyponatremia E87.1 [facility] [id number] [place] [address] 82514- 7823 09 Mar, 2016 Essential hypertension I10 ; Hyponatremia E87.1 ; Slurred speech R47.81 ; Paroxysmal atrial fibrillation I48.0 and Elevated blood sugar R73.9 [facility] [id number] [place] [address] 81893- 0307 Mar, [facility] [address] 98484- 9946 Mar, [facility] [address] 56249- 7864 Feb, [address] [facility] [address] 53778- 1313 Jan, [facility] [address] 17746- 0644 Dec, [facility] [address] 29056 -4943 Nov, Scratched by cat, initial encounter W55.03XA and Other injury of unspecified body region T14.8 [address] 93121- 9422 Nov, [facility] [id number] [place] [address] 96391- 7262 Oct, [address] [address] 96331- 0168 September, [facility] [address] 81526- 0432 Aug, Elevated alkaline phosphatase level R74.8 [address] 74527- 4677 Jul, [facility] [id number] [place] [address] 59654- 6994 Jun, Essential hypertension I10 and Bright red blood per rectum K62.5 [address] [id number] [place] [address] 95438- 0677 11 Jun, 2015 Elevated alkaline phosphatase level R74.8 [address] [place] [address] 28077- 0475 10 Jun, 2015 [address] [address] 30622- 1793 May, Essential hypertension I10 ; Hyperlipidemia E78.5 and Well woman exam (no gynecological exam) Z00.00 [facility] [id number] [place] [address] 68294- 8544 May, [address] 94767- 4439 May, [address] [address] 34468- 6024 Mar, [address] [facility] [address] 21846- 3247 Mar, [facility] [id number] [place] [address] 07135- 5483 Mar, [address] [place] [id number] [place] [address] 94934- 2743 Feb, Acute recurrent maxillary sinusitis J01.01 ; Asthma, unspecified, unspecified status 493.90 ; Seasonal allergies J30.2 and Cat allergies J30.81 [address] [id number] [place] [address] 87591- 5281 13 Feb, 2015 Upper respiratory tract infection, unspecified upper respiratory infection J06.9 [facility] [id number] [place] [address] 96500- 2319 Jan, [address] [facility] [address] 94761- 8318 02 Jan, 2015 Dysphagia 787.20 and GERD (gastroesophageal reflux disease) 530.81 [address] [address] 52322- 3496 Jan, Breast lesion 611.9 [facility] [address] [place] [address] 92123- 7006 Dec, Breast lesion 611.9 [facility] [address] [place] [address] 64691- 8646 Dec, Breast lesion 611.9 [facility] [id number] [place] [address] 38975- 8936 Nov, Fatigue 780.79 and Hyperlipidemia 272.4 [facility] [id number] [place] [address] 06406- 0784 Nov, Hypertension 401.9 ; Hyperlipidemia 272.4 ; Chronic frontal sinusitis 473.1 and Fatigue 780.79 [facility] [id number] [place] [address] 71858- 0072 Nov, [facility] [id number] [place] [address] 71846- 0050 Oct, [facility] [address] [place] [address] 16910- 7523 Oct, [facility] [id number] [place] [address] 11847- 1946 September, [facility] [address], [place] [address]- 1926 September, [facility] [address], [place] [address]- 2546 September, [facility] [address], [place] [address]- 2546 September, [facility] [id number] [place] [address] 27499- 3546 Aug, [facility] [address], [place] [address]- 3476 Aug, [facility] [address] [place] [address] 80626- 4493 13 Aug, 2014 [facility] [place] [facility] [address] [id number] [place] [address]- 5366 20 Jul, 2014 [facility] [place] [facility] [address] [id number] [place] [address]- 5097 20 Jul, 2014 [facility] [place] [facility] [address] [id number] [place] [address]- 3131 19 Jul, 2014 [facility] [place] [facility] [address] [id number] [place] [address]- 9024 19 Jul, 2014 [facility] [place] [facility] [address] [id number] [place] [address]- 3565 18 Jul, 2014 [facility] [place] [facility] [address] [id number] [place] [address]- 5136 17 Jul, 2014 [facility] [place] [facility] [address] [id number] [place] [address]- 5449 17 Jul, 2014 [facility] [place] [facility] [address] [id number] [place] [address]- 7937 16 Jul, 2014 [facility] [place] [facility] [address] [id number] [place] [address]- 9163 16 Jul, 2014 [facility] [place] [facility] [address] [id number] [place] [address]- 7202 12 Jul, 2014 [facility] [place] [facility] [address] [id number] [place] [address]- 1620 12 Jul, 2014 [facility] [place] [facility] [address] [id number] [address]- 9137 09 Jul, 2014 [facility] [place] [facility] [address] [id number] [place] [address]- 1781 Jul, [facility] [place] [facility] [address] [id number] [place] [address]- 8190 04 Jul, 2014 [facility] [place] [facility] [address] [id number] [place] [address]- 5028 04 Jul, 2014 [facility] [place] [facility] [address] [id number] [place] [address]- 1214 Jun, 2014 [facility] [address] [id number] [place] [address]- 6766 Jun, 2014 [facility] [place] [facility] [address] [id number] [place] [address]- 2816 Jun, 2014 [facility] [address] [id number] [place] [address]- 0446 Jun, 2014 [facility] [place] [facility] [address] [id number] [place] [address]- 7845 May, [facility] [place] [facility] [address] [id number] [place] [address]- 8621 May, [facility] [place] [facility] [address] [id number] [place] [address]- 7412 May, [facility] [place] [facility] [address] [id number] [place] [address]- 3198 May, [facility] [address] [id number] [place] [address]- 7612 Apr, [facility] [place] [facility] [address] [id number] [place] [address]- 4040 Apr, [facility] [place] [facility] [address] [id number] [place] [address]- 9340 Apr, [facility] [place] [facility] [address] [id number] [place] [address]- 6244 Apr, [facility] [place] [facility] [address] [id number] [place] [address]- 8102 Apr, [facility] [place] [facility] [address] [id number] [place] [address]- 2559 Apr, [facility] [place] [facility] [address] [id number] [place] [address]- 8885 Mar, [facility] [place] [facility] [address] [id number] [place] [id number] 0490 Mar, [facility] [place] [facility] [address] [id number] [place] [address]- 0586 Mar, [facility] [place] [facility] [address] [id number] [place] [address]- 0741 Mar, [facility] [place] [facility] [address] [id number] [place] [address]- 3725 Mar, [facility] [place] [facility] [address] [id number] [place] [address]- 4875 Mar, [facility] [place] [facility] [address] [id number] [place] [address]- 1553 Mar, [facility] [place] [facility] [address] [id number] [place] [address]- 5082 Mar, [facility] [place] [facility] [address] [id number] [place] [address]- 4526 Mar, [facility] [place] [facility] [address] [id number] [place] [address]- 8368 Mar, [facility] [place] [facility] [address] [id number] [place] [address]- 9430 Mar, [facility] [place] [facility] [address] [id number] [place] [address]- 9983 Mar, [facility] [place] [facility] [address] [id number] [place] [address]- 1081 Mar, [facility] [place] [facility] [address] [id number], [place] [address]- 1515 Mar, [facility] [place] [facility] [address] [id number] [place] [address]- 5904 Mar, [facility] [place] [facility] [address] [id number] [place] [address]- 4006 Mar, [facility] [place] [facility] [address] [id number] [place] [address]- 8967 Mar, [facility] [place] [facility] [address] [id number] [place] [address]- 4804 30 Feb, 2013 [facility] [place] [facility] [address] [id number] [place] [address]- 3109 30 Feb, 2013 [facility] [place] [facility] [address] [id number] [place] [address] 30 Feb, 2013 [facility] [place] [facility] [address] [id number] [place] [address] 30 Feb, 2013 [facility] [place] [facility] [address] [id number] [place] [address] 29 Feb, 2013 [facility] [place] [facility] [address] [id number] [place] [address] 29 Feb, 2013 [facility] [place] [facility] [address] [id number] [place] [address] Feb, 2013 [facility] [place] [facility] [address] [id number] [place] [address] Feb, 2013 [facility] [place] [facility] [address] [id number] [place] [address] 28 Feb, 2013 [facility] [place] [facility] [address] [id number] [place] [address] 28 Feb, 2013 [facility] [place] [facility] [address] [id number] [place] [address] 16 Feb, 2013 [facility] [place] [facility] [address] [id number] [place] [address] 16 Feb, 2013 [facility] [place] [facility] [address] [id number] [address] 15 Feb, 2013 [facility] [place] [facility] [address] [id number] [place] [address] 15 Feb, 2013 [facility] [place] [facility] [address] [id number], [place] [address] 08 Feb, 2013 [facility] [place] [facility] [address] [id number], [place] [address] 08 Feb, 2013 [facility] [place] [facility] [address] [id number] [place] [address] Feb, [facility] [place] [facility] [address] [id number] [place] [address] Feb, [facility] [place] [facility] [address] [id number] [place] [address] Feb, [facility] [place] [facility] [address] [id number] [place] [address] 30 Jan, 2013 [facility] [place] [facility] [address] [id number] [place] [address] 30 Jan, 2013 [facility] [place] [facility] [address] [id number] [place] [address] 2546 29 Jan, 2013 [facility] [place] [facility] [address] [id number] [place] [address] 29 Jan, 2013 [facility] [place] [facility] [address] [id number] [place] [address] 24 Jan, 2013 [facility] [place] [facility] [address] [id number] [place] [address] 2545 24 Jan, 2013 [facility] [place] [facility] [address] [id number] [place] [address] 10 Jan, 2014 [facility] [place] [facility] [address] [id number] [place] [address] 08 Jan, 2014 [facility] [place] [facility] [address] [id number] [place] [address] 08 Jan, 2014 [facility] [place] [facility] [address] [id number] [place] [address] Dec, [facility] [place] [facility] [address] [id number] [place] [address] 2546 Dec, [facility] [place] [facility] [address] [id number] [place] [address] Dec, [facility] [place] [facility] [address] [id number] [place] [address] Dec, [facility] [place] [facility] [address] [id number] [place] [address] 8740 Dec, [facility] [place] [facility] [address] [id number] [place] [address] 3149 Dec, [facility] [place] [facility] [address] [id number] [place] [address]- 3534 Dec, [facility] [place] [facility] [address] [id number] [place] [address]- 9688 Dec, [facility] [place] [facility] [address] [id number] [place] [address]- 9199 Dec, [facility] [place] [facility] [address] [id number] [place] [address]- 6059 Nov, [facility] [place] [facility] [address] [id number] [place] [address]- 3293 Nov, [facility] [place] [facility] [address] [id number] [place] [address] Nov, [facility] [place] [facility] [address] [id number] [place] [address]- 4126 Nov, [facility] [place] [facility] [address] [id number] [place] [address]- 9729 Nov, [facility] [place] [facility] [address] [id number] [place] [address]- 0434 Nov, [facility] [place] [facility] [address] [id number] [place] [address]- 5471 Oct, [facility] [place] [facility] [address] [id number] [place] [address]- 6465 Oct, [facility] [place] [facility] [address] [id number] [place] [address]- 8256 Oct, [facility] [place] [facility] [address] [id number] [place] [address]- 0279 Oct, [facility] [place] [facility] [address] [id number] [place] [address]- 6544 Oct, [facility] [place] [facility] [address] [id number] [place] [address]- 2898 Oct, [facility] [place] [facility] [address] [id number] [place] [address]- 6536 Oct, [facility] [place] [facility] [address] [id number] [place] [address]- 1013 Oct, [facility] [place] [facility] [address] [id number] [place] [address]- 5141 Oct, [facility] [place] [facility] [address] [id number] [place] [address]- 2515 Oct, [facility] [place] [facility] [address] [id number] [place] [address]- 6658 Oct, [facility] [place] [facility] [address] [id number] [place] [address]- 4737 Oct, [facility] [place] [facility] [address] [id number] [place] [address]- 4027 Oct, [facility] [place] [facility] [address] [id number] [place] [address]- 4794 Oct, [facility] [place] [facility] [address] [id number] [place] [address]- 3315 September, [facility] [place] [facility] [address] [id number] [place] [address]- 8322 September, [facility] [place] [facility] [address] [id number] [place] [address]- 8390 September, [facility] [place] [facility] [address] [id number] [place] [address]- 0119 September, [facility] [place] [facility] [address] [id number] [place] [address]- 8336 September, [facility] [place] [facility] [address] [id number] [place] [address]- 8591 September, [facility] [place] [facility] [address] [id number] [place] [address]- 7759 September, [facility] [address] [id number] [place] [address] September, [facility] [address] [id number] [place] [address]- 7271 September, [facility] [place] [facility] [address] [id number] [place] [address]- 6757 September, [facility] [address] [id number] [place] [address]- 8931 September, [facility] [place] [facility] [address] [id number] [place] [address]- 6100 September, [facility] [address] [id number] [place] [address]- 7257 September, [facility] [address] [id number] [place] [address]- 1434 September, [facility] [address] [id number] [place] [address]- 4938 September, [facility] [place] [facility] [address] [id number] [place] [address]- 8305 September, [facility] [place] [facility] [address] [id number] [place] [address]- 8639 September, [facility] [place] [facility] [address] [id number] [place] [address]- 9863 September, [facility] [place] [facility] [address] [id number] [place] [address]- 5757 September, [facility] [place] [facility] [address] [id number] [place] [address]- 5645 Aug, [facility] [place] [facility] [address] [id number] [place] [address]- 9509 Aug, [facility] [place] [facility] [address] [id number] [place] [address]- 1775 31 Jul, 2013 [facility] [place] [facility] [address] [id number] [place] [address]- 7014 31 Jul, 2013 [facility] [place] [facility] [address] [id number] [place] [address]- 2113 28 Jul, 2013 [facility] [place] [facility] [address] [id number] [place] [address]- 6271 Jul, [facility] [place] [facility] [address] [id number] [place] [address]- 8185 Jul, [facility] [place] [facility] [address] [id number] [place] [address]- 7171 Jul, [facility] [place] [facility] [address] [id number] [place] [address]- 7071 Jul, [facility] [place] [facility] [address] [id number] [place] [address]- 7467 Jul, [facility] [place] [facility] [address] [id number] [place] [address]- 9515 Jul, [facility] [place] [facility] [address] [id number] [place] [address]- 4250 Jul, [facility] [place] [facility] [address] [id number] [place] [address]- 0748 Jul, [facility] [place] [facility] [address] [id number] [place] [address]- 7400 Jul, [facility] [place] [facility] [address] [id number] [place] [address]- 6325 Jul, [facility] [place] [facility] [address] [id number] [place] [address]- 5004 Jul, [facility] [place] [facility] [address] [id number] [place] [address]- 2226 10 Jun, 2013 [facility] [place] [facility] [address] [id number] [place] [address]- 1834 Jun, [facility] [place] [facility] [address] [id number] [place] [address]- 4415 10 Jun, 2013 [facility] [place] [facility] [address] [id number] [place] [address]- 5704 Jun, [facility] [place] [facility] [address] [id number] [place] [address]- 8026 May, [facility] [place] [facility] [address] [id number] [place] [address]- 6910 May, [facility] [place] [facility] [address] [id number] [place] [address]- 7921 May, [facility] [place] [facility] [address] [id number] [place] [address]- 0184 May, [facility] [place] [facility] [address] [id number] [place] [address]- 0657 May, [facility] [place] [facility] [address] [id number] [place] [address]- 6289 Mar, [facility] [place] [facility] [address] [id number] [place] [address]- 4148 Mar, [facility] [place] [facility] [address] [id number] [place] [address]- 0856 Mar, [facility] [place] [facility] [address] [id number] [place] [address]- 5641 Mar, [facility] [place] [facility] [address] [id number] [place] [address]- 4660 Mar, [facility] [place] [facility] [address] [id number] [place] [address]- 3336 Mar, [facility] [place] [facility] [address] [id number] [place] [address]- 2419 Feb, [facility] [place] [facility] [address] [id number] [place] [address]- 8523 Feb, [facility] [place] [facility] [address] [id number] [place] [address]- 2693 Feb, [facility] [place] [facility] [address] [id number] [place] [address]- 4398 Feb, [facility] [place] [facility] [address] [id number] [place] [address]- 1215 Feb, [facility] [place] [facility] [address] [id number] [place] [address]- 5496 Feb, [facility] [place] [facility] [address] [id number] [place] [address]- 8587 Feb, [facility] [place] [facility] [address] [id number] [place] [address]- 5333 Feb, [facility] [place] [facility] [address] [id number] [place] [address]- 9533 Feb, [facility] [place] [facility] [address] [id number] [place] [address]- 8152 Feb, [facility] [place] [facility] [address] [id number] [address]- 6268 Feb, [facility] [place] [facility] [address] [id number] [place] [address]- 0234 Feb, [facility] [place] [facility] [address] [id number], [place] [address]- 9628 Jan, [facility] [place] [facility] [address] [id number], [place] [address] 2541 Jan, [facility] [place] [facility] [address] [id number], [place] [address] 2541 Dec, [facility] [place] [facility] [address] [id number] [place] [address]- 2547 Dec, [facility] [place] [facility] [address] [id number], [place] [address]- 2549 Nov, [facility] [place] [facility] [address] [id number] [place] [address]- 2540 Nov, [facility] [place] [facility] [address] [id number] [place] [address]- 4396 Nov, [facility] [address] [id number] [place] [address]- 5030 Nov, [facility] [place] [facility] [address] [id number] [place] [address] 2546 Nov, [facility] [address] [id number] [place] [address]- 0079 Oct, [facility] [address] [id number] [place] [address]- 2546 September, [facility] [address] [id number] [place] [address]- 7904 Aug, [facility] [address] [id number] [place] [address]- 4006 Jul, [facility] [address] [id number] [place] [address]- 5294 Jul, [facility] [address] [id number] [place] [address]- 8689 Jul, [facility] [address] [id number] [place] [address]- 3760 28 Jun, 2012 [facility] [address] [id number] [place] [address]- 8111 14 Jun, 2012 [facility] [place] [facility] [address] [id number] [place] [address] 2546 Jun, [facility] [address] [id number] [place] [address]- 2542 Jun, [facility] [place] [facility] [address] [id number] [place] [address]- 2546 Jun, [facility] [place] [facility] [address] [id number] [place] [address]- 2546 May, [facility] [place] [facility] [address] [id number] [place] [address]- 4543 May, [facility] [place] [facility] [address] [id number] [place] [address]- 8923 Apr, [facility] [place] [facility] [address] [id number] [place] [address]- 1494 Apr, [facility] [place] [facility] [address] [id number] [place] [address]- 6427 Mar, [facility] [place] [facility] [address] [id number] [place] [address]- 1631 Mar, [facility] [place] [facility] [address] [id number] [place] [address]- 1050 Mar, [facility] [place] [facility] [address] [id number] [place] [address]- 6206 Mar, [facility] [place] [facility] [address] [facility] [id number] [place] [address]- 1397 Mar, [facility] [place] [facility] [address] [id number], [place] [address]- 8581 Mar, [facility] [place] [facility] [address] [id number] [place] [address]- 4360 Mar, [facility] [place] [facility] [address] [facility] [id number], [place] [address]- 1590 Mar, [facility] [place] [facility] [address] [id number], [place] [address]- 5609 Mar, [facility] [place] [facility] [address] [id number], [place] [address]- 9946 Mar, [facility] [place] [facility] [address] [id number] [place] [address]- 4298 Feb, [facility] [place] [facility] [address] [id number], [place] [address]- 9418 Feb, [facility] [place] [facility] [address] [facility] [id number] [place] [address]- 7661 Feb, [facility] [place] [facility] [address] [id number] [place] [address]- 5706 30 Feb, 2012 [facility] [place] [facility] [address] [id number] [place] [address]- 6782 Feb, [facility] [place] [facility] [address] [id number] [place] [address]- 6556 Feb, [facility] [place] [facility] [address] [id number] [place] [address] 2546 Jan, [facility] [place] [facility] [address] [id number] [place] [address] 2545 Jan, [facility] [place] [facility] [address] [id number] [place] [address]- 3418 Dec, [facility] [place] [facility] [address] [id number] [place] [address]- 2769 Dec, [facility] [place] [facility] [address] [id number] [place] [address]- 5764 Dec, [facility] [place] [facility] [address] [id number] [place] [address]- 7969 Nov, [facility] [place] [facility] [address] [id number] [place] [address]- 0476 September, [facility] [place] [facility] [address] [id number] [place] [address]- 9267 September, [facility] [place] [facility] [address] [id number] [place] [address]- 4969 September, [facility] [place] [facility] [address] [id number] [place] [address]- 9030 September, [facility] [place] [facility] [address] [id number] [place] [address]- 3411 Aug, [facility] [place] [facility] [address] [id number] [place] [address]- 3841 Aug, [facility] [place] [facility] [address] [id number] [place] [address]- 6257 Aug, [facility] [place] [facility] [address] [id number] [place] [address]- 9403 Aug, [facility] [place] [facility] [address] [id number] [place] [address]- 0106 Aug, [facility] [place] [facility] [address] [id number] [place] [address]- 1656 Jul, [facility] [place] [facility] [address] [id number] [place] [address]- 7756 Jul, [facility] [place] [facility] [address] [id number] [place] [address]- 8140 Jul, [facility] [place] [facility] [address] [id number] [place] [address]- 8174 29 Jun, 2011 [facility] [place] [facility] [address] [id number] [place] [address]- 4616 17 Jun, 2011 [facility] [place] [facility] [address] [id number] [place] [address]- 3166 Jun, [facility] [place] [facility] [address] [id number] [place] [address]- 3094 Jun, [facility] [place] [facility] [address] [id number] [place] [address]- 3803 Jun, [facility] [place] [facility] [address] [facility] [id number] [place] [address]- 7222 Jun, [facility] [place] [facility] [address] [id number] [place] [address]- 1523 Jun, [facility] [place] [facility] [address] [id number] [place] [address]- 8038 May, [facility] [place] [facility] [address] [id number] [place] [address]- 1126 May, [facility] [place] [facility] [address] [id number] [place] [address]- 0556 May, [facility] [place] [facility] [address] [id number] [place] [address]- 6439 12 May, 2011 [facility] [address] [id number] [place] [address]- 5677 27 Apr, 2011 [facility] [place] [facility] [address] [id number] [place] [address]- 6146 13 Apr, 2011 [facility] [address] [id number] [place] [address]- 4036 Mar, [facility] [place] [facility] [address] [id number] [place] [address]- 6160 Mar, [facility] [address] [id number] [place] [address]- 1955 Mar, [facility] [place] [facility] [address] [id number] [place] [address]- 2657 Nov, [facility] [address] [id number] [place] [address]- 1830 May, [facility] [place] [facility] [address] [id number] [place] [address]- 3615 Apr, [facility] [place] [facility] [address] [id number] [place] [address]- 1599 Apr, [facility] [place] [facility] [address] [id number] [place] [address]- 9102 Apr, [facility] [place] [facility] [address] [id number] [place] [address]- 5805 Apr, [facility] [place] [facility] [address] [id number] [place] [address]- 3993 Apr, [facility] [place] [facility] [address] [id number] [place] [address]- 9178 18 Mar, 2010 [facility] [place] [facility] [address] [id number] [place] [address]- 9383 Mar, [facility] [place] [facility] [address] [id number] [place] [address]- 6493 Feb, [facility] [place] [facility] [address] [id number] [address]- 2546 Aug, [facility] [id number], [place] [address]- 9496 Jul, [facility] [id number], [place] [address]- 2546 Jun, [facility] [id number], [place] [address]- 2546 Apr, [facility] [id number], [place] [address]- 2546 Apr, [facility] [id number], [place] [address]- 2546 Mar, [facility] [id number], [place] [address]- 2546 Mar, [facility] [id number], [place] [address]- 2546 Feb, [facility] [id number], [place] [address]- 7802 Dec, [facility] [address] [id number], [place] [address]- 8606 Oct, IMMUNIZATIONS No Known Immunizations SOCIAL HISTORY Never Assessed REASON FOR VISIT EMR-[facility] [place] PLAN OF CARE VITAL SIGNS MEDICATIONS Unknown [...] Hospitalization History surgery 2013 Hospitalization History A Fib--[facility] 03/08/2016 Hospitalization History acute chest pain, hypertensive urgency, paroxsysmal htn-[facility] 05/10/16
--- OUTSIDE RECORDS SUMMARY | 2018-09-17 11:31 | XMS REPORT ---
Author Author Migration, Doctor Organization [facility] Address Unknown Phone Unavailable Care Team Providers Care Parachute Taper Name Role Phone Migration, Doctor Unavailable Unavailable PROBLEMS Type Condition ICD9-CM Code [id number] Code Onset Dates Condition Status SNOMED Code Problem Generalized anxiety disorder F41.1 Active 318680787 Problem Primary insomnia F51.01 Active 693869538 Problem Chronic migraine G43.709 Active 26939976 Problem Mild intermittent asthma without complication J45.20 Active 850255072 Problem Idiopathic peripheral neuropathy G60.9 Active 39085251 Problem Hidradenitis L73.2 Active 12370637 Problem Obstructive sleep apnea G47.33 Active 06034071 Problem Elevated alkaline phosphatase level R74.8 Active 991719196 Problem Vitamin D deficiency E55.9 Active 10844718 Problem Hyponatremia E87.1 Active 61332256 Problem Chronic frontal sinusitis J32.1 Active 89002438 Problem Secondary pulmonary arterial hypertension I27.21 Active 03753755 Problem Hyperlipidemia E78.5 Active 28002642 Problem BMI 40.0-44.9, adult Z68.41 Active 575827006 Problem Essential hypertension I10 Active 12642319 Problem Seasonal allergies J30.2 Active 379671191 Problem Paroxysmal atrial fibrillation I48.0 Active 716210645 Problem Other chronic gastritis without hemorrhage K29.50 Active 0426112 Problem Depression, unspecified depression type F32.9 Active 71121084 Problem Fasciculations of muscle R25.3 Active 99501679 ALLERGIES No Information ENCOUNTERS Encounter Location Date Diagnosis [facility] [address] [facility] [id number] [address] Aug, [facility] [address] [id number] [address] 4[address] Jul, Essential hypertension I10 [facility] [address] [id number] [address] 9802 Jul, Essential hypertension I10 [facility] [address] [id number] [address] 3200 Jul, [facility] [id number] [place] [address] 19966- 2618 Jun, [facility] [id number] [place] [address] 75508- 5565 May, Essential hypertension I10 [facility] [address] 21191- 7198 May, Essential hypertension I10 [facility] [id number] [place] [address] 61820- 2730 Apr, Essential hypertension I10 ; Intertrigo L30.4 ; Mild intermittent asthma without complication J45.20 and BMI 40.0-44.9, adult Z68.41 [facility] [id number] [place] [address] 36548- 5805 Apr, Essential hypertension I10 [facility] [id number] [place] [address] 92949- 6864 Mar, [facility] [id number] [place] [address] 97974- 2973 Mar, [facility] [id number] [place] [address] 40086- 1258 Feb, Essential hypertension I10 [facility] [id number] [place] [address] 45521- 5099 Feb, Intertrigo L30.4 and Encounter for immunization Z23 [facility] [id number] [place] [address] 91711- 4528 Feb, [facility] [address] 12281- 8409 Jan, Essential hypertension I10 [facility] [id number] [place] [address] 21114- 8227 Jan, [facility] [id number] [place] [address] 98089- 1815 Jan, Screening for cervical cancer Z12.4 ; BMI 40.0-44.9, adult Z68.41 ; Screening for breast cancer Z12.31 ; Candidal intertrigo B37.2 and Elevated glucose level R73.09 [place] [address] [address] 6528 Jan, Essential hypertension I10 [place] [id number] [place] [address] 18047- 0488 Dec, [place] [id number] [place] [address] 53420- 2677 Dec, [place] [id number] [place] [address] 59155- 7143 Dec, Essential hypertension I10 [place] [id number] [place] [address] 78279- 7530 Nov, Essential hypertension I10 [place] [id number] [place] [address] 76651- 7688 Nov, [place] [id number] [place] [address] 56971- 0543 Nov, Essential hypertension I10 and BMI 40.0-44.9, adult Z68.41 [place] [address] [address]- 0975 Oct, Essential hypertension I10 and Chronic kidney disease, unspecified CKD stage N18.9 [place] [address] [id number] [address]- 9781 Oct, Essential hypertension I10 and Chronic kidney disease, unspecified CKD stage N18.9 [place] [id number] [place] [address] 73928- 3126 Oct, [place] [address] [address]- 4888 September, Medicare annual wellness visit, initial Z00.00 ; Mild intermittent asthma without complication J45.20 ; Generalized anxiety disorder F41.1 ; Depression, unspecified depression type F32.9 ; Paroxysmal atrial fibrillation I48.0 ; Obstructive sleep apnea G47.33 ; Hyponatremia E87.1 ; Need for hepatitis C screening test Z11.59 ; Encounter for immunization Z23 ; Secondary pulmonary arterial hypertension I27.21 and BMI 40.0-44.9, adult Z68.41 [facility] [address] 33897- 2919 30 Aug, 2017 Essential hypertension I10 [facility] [address] 86252 -6564 Jun, Dysuria R30.0 ; UTI symptoms R39.9 and Candidiasis of breast B37.89 [facility] [address] 88760- 6073 Jun, Hyponatremia E87.1 [facility] [address] 40771- 1437 Jun, Hyponatremia E87.1 [facility] [address] 43763- 5406 Jun, Hyponatremia E87.1 [facility] [address] 42613- 9415 Jun, [facility] [address] 63367- 2805 May, Hyponatremia E87.1 [facility] [address] 39402- 2340 May, Hyponatremia E87.1 [facility] [address] 73045- 3656 May, Hyponatremia E87.1 [facility] [address] 73040- 2675 May, Hyponatremia E87.1 [facility] [address] 85437- 8909 Apr, Hyponatremia E87.1 ; Fasciculations of muscle R25.3 and Hyperlipidemia E78.5 [facility] [id number] [place] [address] 62492- 3546 Apr, Cough R05 ; Hyponatremia E87.1 ; Fasciculations of muscle R25.3 ; Primary insomnia F51.01 ; Essential hypertension I10 ; Hyperlipidemia E78.5 ; Screening for breast cancer Z12.31 and BMI 40.0-44.9, adult Z68.41 [facility] [id number] [place] [address] 99006- 2355 Apr, Essential hypertension I10 [facility] [id number] [place] [address] 97399- 2825 Mar, [facility] [id number] [place] [address] 02511- 3974 Mar, [facility] [id number] [place] [address] 57397- 4762 Mar, [facility] [id number] [place] [address] 39157- 7410 Feb, [facility] [id number] [place] [address] 04634- 0008 Jan, [facility] [id number] [place] [address] 73445- 1241 Dec, Essential hypertension I10 [facility] [id number] [place] [address] 93983- 6206 Dec, [facility] [id number] [place] [address] 52018- 4659 Dec, Essential hypertension I10 [facility] [id number] [place] [address] 884893- 3346 Nov, [facility] [id number] [place] [address] 73592- 9482 Oct, Essential hypertension I10 [facility] [address] [place] [address] 88691- 4208 Oct, Essential hypertension I10 [place] [id number] [place] [address] 35121- 3679 Oct, [facility] [id number] [place] [address] 86726- 3471 September, [place] [id number] [place] [address] 27189- 2195 September, Essential hypertension I10 [place] [address] 48509- 9519 September, [place] [address] 79549- 2505 September, Essential hypertension I10 ; Hyperlipidemia E78.5 and Hyponatremia E87.1 [place] [id number] [place] [address] 92531- 9838 September, Mild intermittent asthma without complication J45.20 ; Essential hypertension I10 ; Hyperlipidemia E78.5 ; Hyponatremia E87.1 and Dysuria R30.0 [place] [id number] [place] [address] 76239- 3960 September, Other chronic gastritis without hemorrhage K29.50 ; Paroxysmal atrial fibrillation I48.0 and Essential hypertension I10 [place] [id number] [place] [address] 64887- 5500 Aug, [facility] [id number] [place] [address] 97833- 9899 14 Jul, 2016 [facility] [id number] [place] [address] 51160- 3795 14 Jun, 2016 [facility] [id number] [place] [address] 07368 -0128 07 Jun, 2016 Dysuria R30.0 and Acute cystitis with hematuria N30.01 [facility] [id number] [place] [address] 16288- 8451 Jun, Essential hypertension I10 [facility] [id number] [place] [address] 11210- 1178 May, Paroxysmal atrial fibrillation I48.0 [facility] [id number] [place] [address] 29028- 3793 May, Other chronic gastritis without hemorrhage K29.50 [facility] [address] 10950- 0957 May, [facility] [id number] [place] [address] 81840- 2857 May, Hyponatremia E87.1 ; Essential hypertension I10 and Other chronic gastritis without hemorrhage K29.50 [facility] [id number] [place] [address] 21117- 1435 May, Hyponatremia E87.1 [facility] [address] 83110- 1970 May, Hyponatremia E87.1 [facility] [address] [id number] May, [facility] [id number] [place] [address] 71174- 0619 Apr, [facility] [id number] [place] [address] 58612- 5930 Apr, [facility] [id number] [place] [address] 77278- 5645 Mar, Essential hypertension I10 and Candidal intertrigo B37.2 [facility] [id number] [place] [address] 14751- 4739 Mar, Hyponatremia E87.1 [facility] [id number] [place] [address] 62871- 9302 14 Mar, 2016 [facility] [id number] [place] [address] 34510- 7432 Mar, Hyponatremia E87.1 [facility] [id number] [place] [address] 12020- 8059 09 Mar, 2016 Essential hypertension I10 ; Hyponatremia E87.1 ; Slurred speech R47.81 ; Paroxysmal atrial fibrillation I48.0 and Elevated blood sugar R73.9 [facility] [id number] [place] [address] 97288- 4852 Mar, [facility] [address] 52613- 4243 Mar, [facility] [address] 86948- 0148 Feb, [place] [address] 02207- 2984 Jan, [facility] [address] 13380- 3525 Dec, [facility] [address] 58338 -6375 Nov, Scratched by cat, initial encounter W55.03XA and Other injury of unspecified body region T14.8 [place] [address] 99865- 6927 Nov, [facility] [id number] [place] [address] 79680- 3827 Oct, [place] [address] 32836- 0843 September, [facility] [address] 27181- 2132 Aug, Elevated alkaline phosphatase level R74.8 [place] [address] 78980- 7725 Jul, [facility] [id number] [place] [address] 69290- 6626 Jun, Essential hypertension I10 and Bright red blood per rectum K62.5 [place] [id number] [place] [address] 76982- 2608 11 Jun, 2015 Elevated alkaline phosphatase level R74.8 [place] [address] 52221- 0138 10 Jun, 2015 [place] [address] 56121- 5468 May, Essential hypertension I10 ; Hyperlipidemia E78.5 and Well woman exam (no gynecological exam) Z00.00 [place] [id number] [place] [address] 61598- 1927 May, [place] [address] 88779- 1961 May, [place] [address] 78608- 2902 Mar, [place] [address] 36878- 5072 Mar, [place] [id number] [place] [address] 92110- 7129 Mar, [place] [id number] [place] [address] 76419- 5150 Feb, Acute recurrent maxillary sinusitis J01.01 ; Asthma, unspecified, unspecified status 493.90 ; Seasonal allergies J30.2 and Cat allergies J30.81 [place] [id number] [place] [address] 19111- 4194 13 Feb, 2015 Upper respiratory tract infection, unspecified upper respiratory infection J06.9 [place] [id number] [place] [address] 71661- 0115 Jan, [place] [address] 67515- 6911 02 Jan, 2015 Dysphagia 787.20 and GERD (gastroesophageal reflux disease) 530.81 [place] [address] 07835- 5316 Jan, Breast lesion 611.9 [facility] [address] [place] [address] 08391- 0216 Dec, Breast lesion 611.9 [facility] [address] [place] [address] 01778- 3766 Dec, Breast lesion 611.9 [facility] [id number] [place] [address] 40904- 3706 Nov, Fatigue 780.79 and Hyperlipidemia 272.4 [facility] [id number] [place] [address] 64356- 9519 Nov, Hypertension 401.9 ; Hyperlipidemia 272.4 ; Chronic frontal sinusitis 473.1 and Fatigue 780.79 [facility] [id number] [place] [address] 52185- 9242 Nov, [facility] [id number] [place] [address] 89529- 9200 Oct, [facility] [address] [place] [address] 12915- 8427 Oct, [facility] [id number] [place] [address] 55759- 6426 September, [facility] [address] [address]- 4356 September, [facility] [address] [address]- 2546 September, [facility] [address] [address]- 2546 September, [facility] [id number] [place] [address] 65168- 1656 Aug, [facility] [address] [address]- 9766 Aug, [facility] [address] [place] [address] 79966- 0330 13 Aug, 2014 [facility] [place] [facility] [address] [id number] [place] [address]- 3499 20 Jul, 2014 [facility] [place] [facility] [address] [id number] [place] [address]- 8965 20 Jul, 2014 [facility] [place] [facility] [address] [id number] [place] [address]- 7842 19 Jul, 2014 [facility] [place] [facility] [address] [id number] [place] [address]- 4772 19 Jul, 2014 [facility] [place] [facility] [address] [id number] [place] [address]- 6352 18 Jul, 2014 [facility] [place] [facility] [address] [id number] [place] [address]- 2613 17 Jul, 2014 [facility] [place] [facility] [address] [id number] [place] [address]- 7234 17 Jul, 2014 [facility] [place] [facility] [address] [id number] [place] [address]- 4707 16 Jul, 2014 [facility] [place] [facility] [address] [id number] [place] [address]- 5793 16 Jul, 2014 [facility] [place] [facility] [address] [id number] [place] [address]- 4841 12 Jul, 2014 [facility] [place] [facility] [address] [id number] [place] [address]- 0266 12 Jul, 2014 [facility] [place] [facility] [address] [id number] [address]- 5064 09 Jul, 2014 [facility] [place] [facility] [address] [id number] [place] [address]- 9090 Jul, [facility] [place] [facility] [address] [id number] [place] [address]- 4342 04 Jul, 2014 [facility] [place] [facility] [address] [id number] [place] [address]- 1335 04 Jul, 2014 [facility] [place] [facility] [address] [id number] [place] [address]- 3518 Jun, 2014 [facility] [address] [id number] [place] [address]- 5146 Jun, 2014 [facility] [place] [facility] [address] [id number] [place] [address]- 8976 Jun, 2014 [facility] [address] [id number] [place] [address]- 3286 Jun, 2014 [facility] [place] [facility] [address] [id number] [place] [address]- 7756 May, [facility] [place] [facility] [address] [id number] [place] [address]- 0783 May, [facility] [place] [facility] [address] [id number] [place] [address]- 9270 May, [facility] [place] [facility] [address] [id number] [place] [address]- 0900 May, [facility] [address] [id number] [place] [address]- 1106 Apr, [facility] [place] [facility] [address] [id number] [place] [address]- 7953 Apr, [facility] [place] [facility] [address] [id number] [place] [address]- 3187 Apr, [facility] [place] [facility] [address] [id number] [place] [address]- 2982 Apr, [facility] [place] [facility] [address] [id number] [place] [address]- 5661 Apr, [facility] [place] [facility] [address] [id number] [place] [address]- 9970 Apr, [facility] [place] [facility] [address] [id number] [place] [address]- 8448 Mar, [facility] [place] [facility] [address] [id number] [place]- 4346 Mar, [facility] [place] [facility] [address] [id number] [place] [address]- 3758 Mar, [facility] [place] [facility] [address] [id number] [place] [address]- 2394 Mar, [facility] [place] [facility] [address] [id number] [place] [address]- 5134 Mar, [facility] [place] [facility] [address] [id number] [place] [address]- 5317 Mar, [facility] [place] [facility] [address] [id number] [place] [address]- 2637 Mar, [facility] [place] [facility] [address] [id number] [place] [address]- 8647 Mar, [facility] [place] [facility] [address] [id number] [place] [address]- 6802 Mar, [facility] [place] [facility] [address] [id number] [place] [address]- 5414 Mar, [facility] [place] [facility] [address] [id number] [place] [address]- 4063 Mar, [facility] [place] [facility] [address] [id number] [place] [address]- 8398 Mar, [facility] [place] [facility] [address] [id number] [place] [address]- 6970 Mar, [facility] [place] [facility] [address] [id number] [address]- 4848 Mar, [facility] [place] [facility] [address] [id number] [place] [address]- 6649 Mar, [facility] [place] [facility] [address] [id number] [place] [address]- 1539 Mar, [facility] [place] [facility] [address] [id number] [place] [address]- 6059 Mar, [facility] [place] [facility] [address] [id number] [place] [address]- 6838 30 Feb, 2013 [facility] [place] [facility] [address] [id number] [place] [address]- 6929 30 Feb, 2013 [facility] [place] [facility] [address] [id number] [place] [address]- 0284 30 Feb, 2013 [facility] [place] [facility] [address] [id number] [place] [address]- 8864 30 Feb, 2013 [facility] [place] [facility] [address] [id number] [place] [address]- 7856 29 Feb, 2013 [facility] [place] [facility] [address] [id number] [place] [address]- 2500 29 Feb, 2013 [facility] [place] [facility] [address] [id number] [place] [address]- 0918 Feb, 2013 [facility] [place] [facility] [address] [id number] [place] [address]- 4733 Feb, 2013 [facility] [place] [facility] [address] [id number] [place] [address]- 9546 28 Feb, 2013 [facility] [place] [facility] [address] [id number] [place] [address]- 0051 28 Feb, 2013 [facility] [place] [facility] [address] [id number] [place] [address]- 2583 16 Feb, 2013 [facility] [place] [facility] [address] [id number] [place] [address]- 5416 16 Feb, 2013 [facility] [place] [facility] [address] [id number] [address]- 6363 15 Feb, 2013 [facility] [place] [facility] [address] [id number] [place] [address] 15 Feb, 2013 [facility] [place] [facility] [address] [id number] [address] 08 Feb, 2013 [facility] [place] [facility] [address] [id number] [address] 08 Feb, 2013 [facility] [place] [facility] [address] [id number] [place] [address] Feb, [facility] [place] [facility] [address] [id number] [place] [address] Feb, [facility] [place] [facility] [address] [id number] [place] [address] Feb, [facility] [place] [facility] [address] [id number] [place] [address] 30 Jan, 2013 [facility] [place] [facility] [address] [id number] [place] [address] 2542 30 Jan, 2013 [facility] [place] [facility] [address] [id number] [place] [address] 2546 29 Jan, 2013 [facility] [place] [facility] [address] [id number] [place] [address] 29 Jan, 2013 [facility] [place] [facility] [address] [id number] [place] [address] 24 Jan, 2013 [facility] [place] [facility] [address] [id number] [place] [address] 254 24 Jan, 2013 [facility] [place] [facility] [address] [id number] [place] [address] 10 Jan, 2014 [facility] [place] [facility] [address] [id number] [place] [address] 2545 08 Jan, 2014 [facility] [place] [facility] [address] [id number] [place] [address] 08 Jan, 2014 [facility] [place] [facility] [address] [id number] [place] [address] Dec, [facility] [place] [facility] [address] [id number] [place] [address]46 Dec, [facility] [place] [facility] [address] [id number] [place] [address] Dec, [facility] [place] [facility] [address] [id number] [place] [address] Dec, [facility] [place] [facility] [address] [id number] [place] [address] Dec, [facility] [place] [facility] [address] [id number] [place] [address] Dec, [facility] [place] [facility] [address] [id number] [place] [address] Dec, [facility] [place] [facility] [address] [id number] [place] [address] Dec, [facility] [place] [facility] [address] [id number] [place] [address] Dec, [facility] [place] [facility] [address] [id number] [place] [address] Nov, [facility] [place] [facility] [address] [id number] [place] [address] Nov, [facility] [place] [facility] [address] [id number] [place] [address] Nov, [facility] [place] [facility] [address] [id number] [place] [address] Nov, [facility] [place] [facility] [address] [id number] [place] [address] Nov, [facility] [place] [facility] [address] [id number] [place] [address] Nov, [facility] [place] [address] [id number] [place] [address] Oct, [facility] [place] [facility] [address] [id number] [place] [address] Oct, [facility] [place] [address] [id number] [place] [address] Oct, [facility] [place] [facility] [address] [id number] [place] [address] Oct, [facility] [place] [facility] [address] [id number] [place] [address] Oct, [facility] [place] [facility] [address] [id number] [place] [address] Oct, [facility] [place] [facility] [address] [id number] [place] [address]14 Oct, [facility] [place] [facility] [address] [id number] [place] [address]686 Oct, [facility] [place] [facility] [address] [id number] [place] [address] Oct, [facility] [place] [facility] [address] [id number] [place] [address] Oct, [facility] [place] [facility] [address] [id number] [place] [address]- [address] Oct, [facility] [place] [facility] [address] [id number] [place] [address]- 6827 Oct, [facility] [place] [facility] [address] [id number] [place] [address] Oct, [facility] [place] [facility] [address] [id number] [place] [address]- 5189 Oct, [facility] [place] [facility] [address] [id number] [place] [address]- 9666 September, [facility] [place] [facility] [address] [id number] [place] [address]- 9953 September, [facility] [place] [facility] [address] [id number] [place] [address]- 2177 September, [facility] [place] [facility] [address] [id number] [place] [address]- 1700 September, [facility] [place] [facility] [address] [id number] [place] [address]- 7879 September, [facility] [place] [facility] [address] [id number] [place] [address]- 9222 September, [facility] [place] [facility] [address] [id number] [place] [address]- 9037 September, [facility] [address] [id number] [place] [address] September, [facility] [address] [id number] [place] [address]- 0179 September, [facility] [place] [facility] [address] [id number] [place] [address]- 1054 September, [facility] [address] [id number] [place] [address]- 3270 September, [facility] [place] [facility] [address] [id number] [place] [address]- 7220 September, [facility] [address] [id number] [place] [address]- 7828 September, [facility] [address] [id number] [place] [address]- 2361 September, [facility] [address] [id number] [place] [address]- 1511 September, [facility] [place] [facility] [address] [id number] [place] [address]- 5917 September, [facility] [place] [facility] [address] [id number] [place] [address]- 5027 September, [facility] [place] [facility] [address] [id number] [place] [address]- 7068 September, [facility] [place] [facility] [address] [id number] [place] [address]- 2535 September, [facility] [place] [facility] [address] [id number] [place] [address]- 7249 Aug, [facility] [place] [facility] [address] [id number] [place] [address]- 5926 Aug, [facility] [place] [facility] [address] [id number] [place] [address]- 4932 31 Jul, 2013 [facility] [place] [facility] [address] [id number] [place] [address]- 4532 31 Jul, 2013 [facility] [place] [facility] [address] [id number] [place] [address]- 4598 28 Jul, 2013 [facility] [place] [facility] [address] [id number] [place] [address]- 7946 Jul, [facility] [place] [facility] [address] [id number] [place] [address]- 0192 Jul, [facility] [place] [facility] [address] [id number] [place] [address]- 2044 Jul, [facility] [place] [facility] [address] [id number] [place] [address]- 3176 Jul, [facility] [place] [facility] [address] [id number] [place] [address]- 1980 Jul, [facility] [place] [facility] [address] [id number] [place] [address]- 0474 Jul, [facility] [place] [facility] [address] [id number] [place] [address]- 2802 Jul, [facility] [place] [facility] [address] [id number] [place] [address]- 2532 Jul, [facility] [place] [facility] [address] [id number] [place] [address]- 8639 Jul, [facility] [place] [facility] [address] [id number] [place] [address]- 2152 Jul, [facility] [place] [facility] [address] [id number] [place] [address]- 7521 Jul, [facility] [place] [facility] [address] [id number] [place] [address]- 3849 10 Jun, 2013 [facility] [place] [facility] [address] [id number] [place] [address]- 2371 Jun, [facility] [place] [facility] [address] [id number] [place] [address]- 3151 10 Jun, 2013 [facility] [place] [facility] [address] [id number] [place] [address]- 2883 Jun, [facility] [place] [facility] [address] [id number] [place] [address]- 7584 May, [facility] [place] [facility] [address] [id number] [place] [address]- 9234 May, [facility] [place] [facility] [address] [id number] [place] [address]- 0278 May, [facility] [place] [facility] [address] [id number] [place] [address]- 6398 May, [facility] [place] [facility] [address] [id number] [place] [address] May, [facility] [place] [facility] [address] [id number] [place] [address]- 9443 Mar, [facility] [place] [facility] [address] [id number] [place] [address]- 1138 Mar, [facility] [place] [facility] [address] [id number] [place] [address]- 0786 Mar, [facility] [place] [facility] [address] [id number] [place] [address]- 7415 Mar, [facility] [place] [facility] [address] [id number] [place] [address]- 0896 Mar, [facility] [place] [facility] [address] [id number] [place] [address]- 6837 Mar, [facility] [place] [facility] [address] [id number] [place] [address]- 8773 Feb, [facility] [place] [facility] [address] [id number] [place] [address]- 7865 Feb, [facility] [place] [facility] [address] [id number] [place] [address]- 3755 Feb, [facility] [place] [facility] [address] [id number] [place] [address]- 9000 Feb, [facility] [place] [facility] [address] [id number] [place] [address]- 4710 Feb, [facility] [place] [facility] [address] [id number] [place] [address]- 0683 Feb, [facility] [place] [facility] [address] [id number] [place] [address]- 6546 Feb, [facility] [place] [facility] [address] [id number] [place] [address]- 6070 Feb, [facility] [place] [facility] [address] [id number] [place] [address]- 3147 Feb, [facility] [place] [facility] [address] [id number] [place] [address]- 5769 Feb, [facility] [place] [facility] [address] [id number] [address]- 50[address] Feb, [facility] [place] [facility] [address] [id number] [place] [address]- 9388 Feb, [facility] [place] [facility] [address] [id number] [address]- 4923 Jan, [facility] [place] [facility] [address] [id number] [address] 2540 Jan, [facility] [place] [facility] [address] [id number] [address] 2543 Dec, [facility] [place] [facility] [address] [id number] [place] [address]- 2545 Dec, [facility] [place] [facility] [address] [id number] [address]- 2540 Nov, [facility] [place] [facility] [address] [id number] [place] [address]- 2544 Nov, [facility] [place] [facility] [address] [id number] [place] [address]- 3686 Nov, [facility] [address] [id number] [place] [address]- 4727 Nov, [facility] [place] [facility] [address] [id number] [place] [address] 2546 Nov, [facility] [address] [id number] [place] [address]- 2949 Oct, [facility] [address] [id number] [place] [address]- 2546 September, [facility] [address] [id number] [place] [address]- 3917 Aug, [facility] [address] [id number] [place] [address]- 7206 Jul, [facility] [address] [id number] [place] [address]- 7110 Jul, [facility] [address] [id number] [place] [address]- 8594 Jul, [facility] [address] [id number] [place] [address]- 7630 28 Jun, 2012 [facility] [address] [id number] [place] [address]- 2595 14 Jun, 2012 [facility] [place] [facility] [address] [id number] [place] [address] 2546 Jun, [facility] [address] [id number] [place] [address]- 2549 Jun, [facility] [place] [facility] [address] [id number] [place] [address]- 2546 Jun, [facility] [place] [facility] [address] [id number] [place] [address]- 2546 May, [facility] [place] [facility] [address] [id number] [place] [address]- 6958 May, [facility] [place] [facility] [address] [id number] [place] [address]- 8157 Apr, [facility] [place] [facility] [address] [id number] [place] [address]- 2810 Apr, [facility] [place] [facility] [address] [id number] [place] [address]- 6361 Mar, [facility] [place] [facility] [address] [id number] [place] [address]- 2759 Mar, [facility] [place] [facility] [address] [id number] [place] [address]- 2332 Mar, [facility] [place] [facility] [address] [id number] [place] [address]- 5804 Mar, [facility] [place] [facility] [address] [facility] [id number] [place] [address]- 3085 Mar, [facility] [place] [facility] [address] [id number] [address]- 6313 Mar, [facility] [place] [facility] [address] [id number] [place] [address]- 1425 Mar, [facility] [place] [facility] [address] [facility] [id number] [address]- 9432 Mar, [facility] [place] [facility] [address] [id number] [address]- 6375 Mar, [facility] [place] [facility] [address] [id number] [address]- 1156 Mar, [facility] [place] [facility] [address] [id number] [place] [address]- 6219 Feb, [facility] [place] [facility] [address] [id number] [address]- 5589 Feb, [facility] [place] [facility] [address] [facility] [id number] [place] [address]- 4178 Feb, [facility] [place] [facility] [address] [id number] [place] [address]- 6096 30 Feb, 2012 [facility] [place] [facility] [address] [id number] [place] [address]- 5471 Feb, [facility] [place] [facility] [address] [id number] [place] [address]- 7946 Feb, [facility] [place] [facility] [address] [id number] [place] [address] 2546 Jan, [facility] [place] [facility] [address] [id number] [place] [address] 2541 Jan, [facility] [place] [facility] [address] [id number] [place] [address]- 4883 Dec, [facility] [place] [facility] [address] [id number] [place] [address]- 7171 Dec, [facility] [place] [facility] [address] [id number] [place] [address]- 9743 Dec, [facility] [place] [facility] [address] [id number] [place] [address]- 9924 Nov, [facility] [place] [facility] [address] [id number] [place] [address]- 7502 September, [facility] [place] [facility] [address] [id number] [place] [address]- 8252 September, [facility] [place] [facility] [address] [id number] [place] [address]- 6149 September, [facility] [place] [facility] [address] [id number] [place] [address]- 0790 September, [facility] [place] [facility] [address] [id number] [place] [address]- 3735 Aug, [facility] [place] [facility] [address] [id number] [place] [address]- 1825 Aug, [facility] [place] [facility] [address] [id number] [place] [address]- 5684 Aug, [facility] [place] [facility] [address] [id number] [place] [address]- 3146 Aug, [facility] [place] [facility] [address] [id number] [place] [address]- 1686 Aug, [facility] [place] [facility] [address] [id number] [place] [address]- 9946 Jul, [facility] [place] [facility] [address] [id number] [place] [address]- 9596 Jul, [facility] [place] [facility] [address] [id number] [place] [address]- 6273 Jul, [facility] [place] [facility] [address] [id number] [place] [address]- 3661 29 Jun, 2011 [facility] [place] [facility] [address] [id number] [place] [address]- 6426 17 Jun, 2011 [facility] [place] [facility] [address] [id number] [place] [address]- 5424 Jun, [facility] [place] [facility] [address] [id number] [place] [address]- 7146 Jun, [facility] [place] [facility] [address] [id number] [place] [address]- 1726 Jun, [facility] [place] [facility] [address] [facility] [id number] [place] [address]- 8686 Jun, [facility] [place] [facility] [address] [id number] [place] [address]- 2846 Jun, [facility] [place] [facility] [address] [id number] [place] [address]- 9490 May, [facility] [place] [facility] [address] [id number] [place] [address]- 4046 May, [facility] [place] [facility] [address] [id number] [place] [address]- 5463 May, [facility] [place] [facility] [address] [id number] [place] [address]- 3294 12 May, 2011 [facility] [address] [id number] [place] [address]- 9458 27 Apr, 2011 [facility] [place] [facility] [address] [id number] [place] [address]- 6176 13 Apr, 2011 [facility] [address] [id number] [place] [address]- 1266 Mar, [facility] [place] [facility] [address] [id number] [place] [address]- 9033 Mar, [facility] [address] [id number] [place] [address]- 2124 Mar, [facility] [place] [facility] [address] [id number] [place] [address]- 6908 Nov, [facility] [address] [id number] [place] [address]- 4274 May, [facility] [place] [facility] [address] [id number] [place] [address]- 8513 Apr, [facility] [place] [facility] [address] [id number] [place] [address]- 5205 Apr, [facility] [place] [facility] [address] [id number] [place] [address]- 1534 Apr, [facility] [place] [facility] [address] [id number] [place] [address]- 2918 Apr, [facility] [place] [facility] [address] [id number] [place] [address]- 8232 Apr, [facility] [place] [facility] [address] [id number] [place] [address]- 3687 18 Mar, 2010 [facility] [place] [facility] [address] [id number] [place] [address]- 9879 Mar, [facility] [place] [facility] [address] [id number] [place] [address]- 5601 Feb, [facility] [place] [facility] [address] [id number] [address]- 2546 Aug, [facility] [id number] [address]- 2596 Jul, [facility] [id number] [address]- 2546 Jun, [facility] [id number] [address]- 2546 Apr, [facility] [id number] [address]- 2546 Apr, [facility] [id number] [address]- 2546 Mar, [facility] [id number] [address]- 2546 Mar, [facility] [id number] [address]- 2546 Feb, [facility] [id number] [address]- 9129 Dec, [facility] [address] [id number] [address]- 2676 Oct, IMMUNIZATIONS No Known Immunizations SOCIAL HISTORY Never Assessed REASON FOR VISIT EMR-[facility] PLAN OF CARE VITAL SIGNS MEDICATIONS Unknown [...] Hospitalization History surgery 2013 Hospitalization History A Fib--[facility] 03/08/2016 Hospitalization History acute chest pain, hypertensive urgency, paroxsysmal htn-[facility] 05/10/16
--- OUTSIDE RECORDS SUMMARY | 2018-09-17 11:31 | XMS REPORT ---
Author Author Migration, Doctor Organization [facility] Address Unknown Phone Unavailable Care Team Providers Care Rod Hanger Name Role Phone Migration, Doctor Unavailable Unavailable PROBLEMS Type Condition ICD9-CM Code JVK19-KG Code Onset Dates Condition Status SNOMED Code Problem Generalized anxiety disorder F41.1 Active 445143724 Problem Primary insomnia F51.01 Active 366515304 Problem Chronic migraine G43.709 Active 83545477 Problem Mild intermittent asthma without complication J45.20 Active 904583892 Problem Idiopathic peripheral neuropathy G60.9 Active 80543990 Problem Hidradenitis L73.2 Active 03645414 Problem Obstructive sleep apnea G47.33 Active 31680673 Problem Elevated alkaline phosphatase level R74.8 Active 126035691 Problem Vitamin D deficiency E55.9 Active 37085371 Problem Hyponatremia E87.1 Active 64171647 Problem Chronic frontal sinusitis J32.1 Active 65450646 Problem Secondary pulmonary arterial hypertension I27.21 Active 10150073 Problem Hyperlipidemia E78.5 Active 27960886 Problem BMI 40.0-44.9, adult Z68.41 Active 796814150 Problem Essential hypertension I10 Active 42541542 Problem Seasonal allergies J30.2 Active 308510428 Problem Paroxysmal atrial fibrillation I48.0 Active 128054669 Problem Other chronic gastritis without hemorrhage K29.50 Active 3048560 Problem Depression, unspecified depression type F32.9 Active 27987992 Problem Fasciculations of muscle R25.3 Active 33554312 ALLERGIES No Information ENCOUNTERS Encounter Location Date Diagnosis [facility], [place] [address] [facility] [id number] [address] Aug, [facility], [place] [address] [id number] [address] 4[address] Jul, Essential hypertension I10 [facility], [place] [address] [id number] [address] 0943 Jul, Essential hypertension I10 [facility], [place] [address] [id number] [address] 6566 Jul, [facility], [place] [id number] [place] [address] 35760- 8734 Jun, [facility], [place] [id number] [place] [address] 78044- 0595 May, Essential hypertension I10 [facility], [place] [address] 09376- 2990 May, Essential hypertension I10 [facility], [place] [id number] [place] [address] 25095- 8047 Apr, Essential hypertension I10 ; Intertrigo L30.4 ; Mild intermittent asthma without complication J45.20 and BMI 40.0-44.9, adult Z68.41 [facility], [place] [id number] [place] [address] 13988- 8668 Apr, Essential hypertension I10 [facility], [place] [id number] [place] [address] 93195- 7196 Mar, [facility], [place] [id number] [place] [address] 41354- 3713 Mar, [facility], [place] [id number] [place] [address] 03635- 4316 Feb, Essential hypertension I10 [facility], [place] [id number] [place] [address] 87440- 8731 Feb, Intertrigo L30.4 and Encounter for immunization Z23 [facility], [place] [id number] [place] [address] 45853- 6202 Feb, [facility], [place] [address] 98202- 3769 Jan, Essential hypertension I10 [facility], [place] [id number] [place] [address] 46961- 1014 Jan, [facility], [place] [id number] [place] [address] 87122- 1697 Jan, Screening for cervical cancer Z12.4 ; BMI 40.0-44.9, adult Z68.41 ; Screening for breast cancer Z12.31 ; Candidal intertrigo B37.2 and Elevated glucose level R73.09 [place] [address] [address] 4270 Jan, Essential hypertension I10 [place] [id number] [place] [address] 68996- 0211 Dec, [place] [id number] [place] [address] 54895- 6066 Dec, [place] [id number] [place] [address] 45242- 7118 Dec, Essential hypertension I10 [place] [id number] [place] [address] 39891- 5528 Nov, Essential hypertension I10 [place] [id number] [place] [address] 87540- 8965 Nov, [place] [id number] [place] [address] 64543- 0584 Nov, Essential hypertension I10 and BMI 40.0-44.9, adult Z68.41 [place] [address] [address] 9275 Oct, Essential hypertension I10 and Chronic kidney disease, unspecified CKD stage N18.9 [place] [address] [id number] [address]- 0590 Oct, Essential hypertension I10 and Chronic kidney disease, unspecified CKD stage N18.9 [place] [id number] [place] [address] 54189- 5917 Oct, [place] [address] [address]- 2092 September, Medicare annual wellness visit, initial Z00.00 [...] BMI 40.0-44.9, adult Z68.41 [facility], [place] [address] 98433- 2919 30 Aug, 2017 Essential hypertension I10 [facility] [address] 40538 -5804 Jun, Dysuria R30.0 ; UTI symptoms R39.9 and Candidiasis of breast B37.89 [facility], [place] [address] 97409- 5798 Jun, Hyponatremia E87.1 [facility], [place] [address] 62667- 2495 Jun, Hyponatremia E87.1 [facility], [place] [address] 49292- 3802 Jun, Hyponatremia E87.1 [facility], [place] [address] 48413- 5149 Jun, [facility], [place] [address] 09607- 1354 May, Hyponatremia E87.1 [facility], [place] [address] 28153- 3121 May, Hyponatremia E87.1 [facility], [place] [address] 12689- 2424 May, Hyponatremia E87.1 [facility], [place] [address] 15936- 3132 May, Hyponatremia E87.1 [facility], [place] [address] 49031- 5667 Apr, Hyponatremia E87.1 ; Fasciculations of muscle R25.3 and Hyperlipidemia E78.5 [facility], [place] [id number] [place] [address] 37915- 8657 Apr, Cough R05 ; Hyponatremia E87.1 ; Fasciculations of muscle R25.3 ; Primary insomnia F51.01 ; Essential hypertension I10 ; Hyperlipidemia E78.5 ; Screening for breast cancer Z12.31 and BMI 40.0-44.9, adult Z68.41 [facility], [place] [id number] [place] [address] 64737- 3693 Apr, Essential hypertension I10 [facility], [place] [id number] [place] [address] 77567- 0752 Mar, [facility], [place] [id number] [place] [address] 45780- 1157 Mar, [facility], [place] [id number] [place] [address] 44928- 1179 Mar, [facility], [place] [id number] [place] [address] 54553- 9966 Feb, [facility], [place] [id number] [place] [address] 99392- 1096 Jan, [facility], [place] [id number] [place] [address] 63522- 9629 Dec, Essential hypertension I10 [facility], [place] [id number] [place] [address] 63437- 3817 Dec, [facility], [place] [id number] [place] [address] 23241- 6424 Dec, Essential hypertension I10 [facility], [place] [id number] [place] [address] 615615- 6996 Nov, [facility], [place] [id number] [place] [address] 72206- 7268 Oct, Essential hypertension I10 [facility], [place] [id number] [place] [address] 50149- 2409 Oct, Essential hypertension I10 [place] [id number] [place] [address] 29817- 1368 Oct, [facility], [place] [id number] [place] [address] 19303- 9465 September, [place] [id number] [place] [address] 16082- 3446 September, Essential hypertension I10 [place] [address] 91343- 2417 September, [place] [address] 96183- 0669 September, Essential hypertension I10 ; Hyperlipidemia E78.5 and Hyponatremia E87.1 [place] [id number] [place] [address] 27787- 9892 September, Mild intermittent asthma without complication J45.20 ; Essential hypertension I10 ; Hyperlipidemia E78.5 ; Hyponatremia E87.1 and Dysuria R30.0 [place] [id number] [place] [address] 27262- 1212 September, Other chronic gastritis without hemorrhage K29.50 ; Paroxysmal atrial fibrillation I48.0 and Essential hypertension I10 [place] [id number] [place] [address] 78524- 0152 Aug, [facility], [place] [id number] [place] [address] 63930- 0225 14 Jul, 2016 [facility], [place] [id number] [place] [address] 00045- 2862 14 Jun, 2016 [facility] [id number] [place] [address] 74032 -2093 07 Jun, 2016 Dysuria R30.0 and Acute cystitis with hematuria N30.01 [facility], [place] [id number] [place] [address] 31430- 1719 Jun, Essential hypertension I10 [facility], [place] [id number] [place] [address] 41154- 7611 May, Paroxysmal atrial fibrillation I48.0 [facility], [place] [id number] [place] [address] 42360- 0880 May, Other chronic gastritis without hemorrhage K29.50 [facility], [place] [address] 89528- 6102 May, [facility], [place] [id number] [place] [address] 86502- 0301 May, Hyponatremia E87.1 ; Essential hypertension I10 and Other chronic gastritis without hemorrhage K29.50 [facility], [place] [id number] [place] [address] 69893- 1779 May, Hyponatremia E87.1 [facility], [place] [address] 00516- 1841 May, Hyponatremia E87.1 [facility] [address] [id number] May, [facility], [place] [id number] [place] [address] 77671- 1739 Apr, [facility], [place] [id number] [place] [address] 78618- 1672 Apr, [facility], [place] [id number] [place] [address] 23036- 2183 Mar, Essential hypertension I10 and Candidal intertrigo B37.2 [facility], [place] [id number] [place] [address] 64765- 3690 Mar, Hyponatremia E87.1 [facility], [place] [id number] [place] [address] 82171- 0613 14 Mar, 2016 [facility], [place] [id number] [place] [address] 27841- 6796 Mar, Hyponatremia E87.1 [facility], [place] [id number] [place] [address] 28842- 0203 09 Mar, 2016 Essential hypertension I10 ; Hyponatremia E87.1 ; Slurred speech R47.81 ; Paroxysmal atrial fibrillation I48.0 and Elevated blood sugar R73.9 [facility], [place] [id number] [place] [address] 98374- 0342 Mar, [facility], [place] [address] 96213- 1710 Mar, [facility], [place] [address] 08398- 6073 Feb, [place] [address] 14970- 5708 Jan, [facility], [place] [address] 84700- 2250 Dec, [facility] [address] 72315 -3208 Nov, Scratched by cat, initial encounter W55.03XA and Other injury of unspecified body region T14.8 [place] [address] 34915- 6126 Nov, [facility], [place] [id number] [place] [address] 53424- 0067 Oct, [place] [address] 16019- 5227 September, [facility], [place] [address] 35828- 5233 Aug, Elevated alkaline phosphatase level R74.8 [place] [address] 13869- 0330 Jul, [facility], [place] [id number] [place] [address] 31865- 1972 Jun, Essential hypertension I10 and Bright red blood per rectum K62.5 [place] [id number] [place] [address] 01574- 2469 11 Jun, 2015 Elevated alkaline phosphatase level R74.8 [place] [address] 57752- 4181 10 Jun, 2015 [place] [address] 48145- 3527 May, Essential hypertension I10 ; Hyperlipidemia E78.5 and Well woman exam (no gynecological exam) Z00.00 [place] [id number] [place] [address] 24616- 5677 May, [place] [address] 93770- 2298 May, [place] [address] 74236- 2336 Mar, [place] [address] 23846- 1296 Mar, [place] [id number] [place] [address] 11718- 7918 Mar, [place] [id number] [place] [address] 96174- 1516 Feb, Acute recurrent maxillary sinusitis J01.01 ; Asthma, unspecified, unspecified status 493.90 ; Seasonal allergies J30.2 and Cat allergies J30.81 [place] [id number] [place] [address] 11892- 0708 13 Feb, 2015 Upper respiratory tract infection, unspecified upper respiratory infection J06.9 [place] [id number] [place] [address] 10545- 9018 Jan, [place] [address] 62824- 2380 02 Jan, 2015 Dysphagia 787.20 and GERD (gastroesophageal reflux disease) 530.81 [place] [address] 54383- 6046 Jan, Breast lesion 611.9 [facility], [place] [address] [place] [address] 24782- 0936 Dec, Breast lesion 611.9 [facility], [place] [address] [place] [address] 34968- 4016 Dec, Breast lesion 611.9 [facility], [place] [id number] [place] [address] 03466- 0936 Nov, Fatigue 780.79 and Hyperlipidemia 272.4 [facility], [place] [id number] [place] [address] 57081- 7339 Nov, Hypertension 401.9 ; Hyperlipidemia 272.4 ; Chronic frontal sinusitis 473.1 and Fatigue 780.79 [facility], [place] [id number] [place] [address] 45023- 0331 Nov, [facility], [place] [id number] [place] [address] 12673- 9475 Oct, [facility], [place] [address] [place] [address] 64416- 3576 Oct, [facility], [place] [id number] [place] [address] 71695- 0046 September, [facility], [place] [address] [address]- 3566 September, [facility], [place] [address] [address]- 2546 September, [facility], [place] [address] [address]- 2546 September, [facility], [place] [id number] [place] [address] 51800- 6526 Aug, [facility], [place] [address] [address]- 1206 Aug, [facility], [place] [address] [place] [address] 12356- 7500 13 Aug, 2014 [facility] [place] [facility] [address] [id number] [place] [address]- 2287 20 Jul, 2014 [facility] [place] [facility] [address] [id number] [place] [address]- 9902 20 Jul, 2014 [facility] [place] [facility] [address] [id number] [place] [address]- 3856 19 Jul, 2014 [facility] [place] [facility] [address] [id number] [place] [address]- 8722 19 Jul, 2014 [facility] [place] [facility] [address] [id number] [place] [address]- 7885 18 Jul, 2014 [facility] [place] [facility] [address] [id number] [place] [address]- 1222 17 Jul, 2014 [facility] [place] [facility] [address] [id number] [place] [address]- 5365 17 Jul, 2014 [facility] [place] [facility] [address] [id number] [place] [address]- 7228 16 Jul, 2014 [facility] [place] [facility] [address] [id number] [place] [address]- 6054 16 Jul, 2014 [facility] [place] [facility] [address] [id number] [place] [address]- 5895 12 Jul, 2014 [facility] [place] [facility] [address] [id number] [place] [address]- 4499 12 Jul, 2014 [facility] [place] [facility] [address] [id number] [address]- 0704 09 Jul, 2014 [facility] [place] [facility] [address] [id number] [place] [address]- 9426 Jul, [facility] [place] [facility] [address] [id number] [place] [address]- 8924 04 Jul, 2014 [facility] [place] [facility] [address] [id number] [place] [address]- 9227 04 Jul, 2014 [facility] [place] [facility] [address] [id number] [place] [address]- 4545 Jun, 2014 [facility] [address] [id number] [place] [address]- 1346 Jun, 2014 [facility] [place] [facility] [address] [id number] [place] [address]- 8846 Jun, 2014 [facility] [address] [id number] [place] [address]- 9326 Jun, 2014 [facility] [place] [facility] [address] [id number] [place] [address]- 2631 May, [facility] [place] [facility] [address] [id number] [place] [address]- 3603 May, [facility] [place] [facility] [address] [id number] [place] [address]- 9326 May, [facility] [place] [facility] [address] [id number] [place] [address]- 3270 May, [facility] [address] [id number] [place] [address]- 0597 Apr, [facility] [place] [facility] [address] [id number] [place] [address]- 1750 Apr, [facility] [place] [facility] [address] [id number] [place] [address]- 9807 Apr, [facility] [place] [facility] [address] [id number] [place] [address]- 0703 Apr, [facility] [place] [facility] [address] [id number] [place] [address]- 4052 Apr, [facility] [place] [facility] [address] [id number] [place] [address]- 0297 Apr, [facility] [place] [facility] [address] [id number] [place] [address]- 5080 Mar, [facility] [place] [facility] [address] [id number] [place] 8451 Mar, [facility] [place] [facility] [address] [id number] [place] [address]- 8094 Mar, [facility] [place] [facility] [address] [id number] [place] [address]- 7968 Mar, [facility] [place] [facility] [address] [id number] [place] [address]- 6165 Mar, [facility] [place] [facility] [address] [id number] [place] [address]- 9620 Mar, [facility] [place] [facility] [address] [id number] [place] [address]- 0228 Mar, [facility] [place] [facility] [address] [id number] [place] [address]- 0885 Mar, [facility] [place] [facility] [address] [id number] [place] [address]- 2197 Mar, [facility] [place] [facility] [address] [id number] [place] [address]- 4351 Mar, [facility] [place] [facility] [address] [id number] [place] [address]- 4203 Mar, [facility] [place] [facility] [address] [id number] [place] [address] Mar, [facility] [place] [facility] [address] [id number] [place] [address] Mar, [facility] [place] [facility] [address] [id number] [address] Mar, [facility] [place] [facility] [address] [id number] [place] [address] Mar, [facility] [place] [facility] [address] [id number] [place] [address] Mar, [facility] [place] [facility] [address] [id number] [place] [address] Mar, [facility] [place] [facility] [address] [id number] [place] [address] 30 Feb, 2013 [facility] [place] [facility] [address] [id number] [place] [address] 30 Feb, 2013 [facility] [place] [facility] [address] [id number] [place] [address] 30 Feb, 2013 [facility] [place] [facility] [address] [id number] [place] [address] 30 Feb, 2013 [facility] [place] [facility] [address] [id number] [place] [address] 29 Feb, 2013 [facility] [place] [facility] [address] [id number] [place] [address] 29 Feb, 2013 [facility] [place] [facility] [address] [id number] [place] [address]- [address] Feb, 2013 [facility] [place] [facility] [address] [id number] [place] [address] Feb, 2013 [facility] [place] [facility] [address] [id number] [place] [address] 28 Feb, 2013 [facility] [place] [facility] [address] [id number] [place] [address] 28 Feb, 2013 [facility] [place] [facility] [address] [id number] [place] [address]- [address] 16 Feb, 2013 [facility] [place] [facility] [address] [id number] [place] [address] 16 Feb, 2013 [facility] [place] [facility] [address] [id number] [place] [address] 15 Feb, 2013 [facility] [place] [facility] [address] [id number] [place] [address] 15 Feb, 2013 [facility] [place] [facility] [address] [id number] [address] 08 Feb, 2013 [facility] [place] [facility] [address] [id number] [place] [address] 08 Feb, 2013 [facility] [place] [facility] [address] [id number] [place] [address]- [address] Feb, [facility] [place] [facility] [address] [id number] [place] [address]- [address] Feb, [facility] [place] [facility] [address] [id number] [place] [address] Feb, [facility] [place] [facility] [address] [id number] [place] [address] 30 Jan, 2013 [facility] [place] [facility] [address] [id number] [place] [address] 30 Jan, 2013 [facility] [place] [facility] [address] [id number] [place] [address] 29 Jan, 2013 [facility] [place] [facility] [address] [id number] [place] [address] 29 Jan, 2013 [facility] [place] [facility] [address] [id number] [place] [address] 24 Jan, 2013 [facility] [place] [facility] [address] [id number] [place] [address] 254 24 Jan, 2013 [facility] [place] [facility] [address] [id number] [place] [address] 10 Jan, 2014 [facility] [place] [facility] [address] [id number] [place] [address] 2547 08 Jan, 2014 [facility] [place] [facility] [address] [id number] [place] [address] 08 Jan, 2014 [facility] [place] [facility] [address] [address] [id number] [place] [address] 2543 Dec, [facility] [place] [facility] [address] [id number] [place] [address] 2546 Dec, [facility] [place] [facility] [address] [id number] [place] [address]45 Dec, [facility] [place] [facility] [address] [id number] [place] [address] 8847 Dec, [facility] [place] [facility] [address] [id number] [place] [address]878 Dec, [facility] [place] [facility] [address] [id number] [place] [address] 9878 Dec, [facility] [place] [facility] [address] [id number] [place] [address] 5291 Dec, [facility] [place] [facility] [address] [id number] [place] [address] 4989 Dec, [facility] [place] [facility] [address] [id number] [place] [address]- 0356 Dec, [facility] [place] [facility] [address] [id number] [place] [address] 0654 Nov, [facility] [place] [facility] [address] [id number] [place] [address] 8353 Nov, [facility] [place] [facility] [address] [id number] [place] [address] 9110 Nov, [facility] [place] [facility] [address] [id number] [place] [address]- 5382 Nov, [facility] [place] [facility] [address] [id number] [place] [address]- 1387 Nov, [facility] [place] [facility] [address] [id number] [place] [address]- 5715 Nov, [facility] [place] [facility] [address] [id number] [place] [address] 6940 Oct, [facility] [place] [facility] [address] [id number] [place] [address]- 4388 Oct, [facility] [place] [facility] [address] [id number] [place] [address]- 2225 Oct, [facility] [place] [facility] [address] [id number] [place] [address]- 5450 Oct, [facility] [place] [facility] [address] [id number] [place] [address] 8506 Oct, [facility] [place] [facility] [address] [id number] [place] [address] 1983 Oct, [facility] [place] [facility] [address] [id number] [place] [address]- 5785 Oct, [facility] [place] [facility] [address] [id number] [place] [address]- 5640 Oct, [facility] [place] [facility] [address] [id number] [place] [address]- 0883 Oct, [facility] [place] [facility] [address] [id number] [place] [address]- 9474 Oct, [facility] [place] [facility] [address] [id number] [place] [address]- 7812 Oct, [facility] [place] [facility] [address] [id number] [place] [address]- 6265 Oct, [facility] [place] [facility] [address] [id number] [place] [address]- 6438 Oct, [facility] [place] [facility] [address] [id number] [place] [address]- 6104 Oct, [facility] [place] [facility] [address] [id number] [place] [address]- 7657 September, [facility] [place] [facility] [address] [id number] [place] [address]- [address] September, [facility] [place] [facility] [address] [id number] [place] [address]- 7717 September, [facility] [place] [facility] [address] [id number] [place] [address]- 5434 September, [facility] [place] [facility] [address] [id number] [place] [address]- 2869 September, [facility] [place] [facility] [address] [id number] [place] [address]- 6403 September, [facility] [place] [facility] [address] [id number] [place] [address]- 6328 September, [facility] [address] [id number] [place] [address] September, [facility] [address] [id number] [place] [address] September, [facility] [place] [facility] [address] [id number] [place] [address]- 4814 September, [facility] [address] [id number] [place] [address]- 6130 September, [facility] [place] [facility] [address] [id number] [place] [address]- 7426 September, [facility] [address] [id number] [place] [address]- 8595 September, [facility] [address] [id number] [place] [address]- 6370 September, [facility] [address] [id number] [place] [address]- 7873 September, [facility] [place] [facility] [address] [id number] [place] [address]- 3601 September, [facility] [place] [facility] [address] [id number] [place] [address]- 8047 September, [facility] [place] [facility] [address] [id number] [place] [address]- 7794 September, [facility] [place] [facility] [address] [id number] [place] [address]- 3013 September, [facility] [place] [facility] [address] [id number] [place] [address]- 0264 Aug, [facility] [place] [facility] [address] [id number] [place] [address]- 3499 Aug, [facility] [place] [facility] [address] [id number] [place] [address]- 4205 31 Jul, 2013 [facility] [place] [facility] [address] [id number] [place] [address]- 4217 31 Jul, 2013 [facility] [place] [facility] [address] [id number] [place] [address]- 8744 28 Jul, 2013 [facility] [place] [facility] [address] [id number] [place] [address]- 7022 Jul, [facility] [place] [facility] [address] [id number] [place] [address]- 2152 Jul, [facility] [place] [facility] [address] [id number] [place] [address]- 1569 Jul, [facility] [place] [facility] [address] [id number] [place] [address]- 4938 Jul, [facility] [place] [facility] [address] [id number] [place] [address]- 7729 Jul, [facility] [place] [facility] [address] [id number] [place] [address]- 7557 Jul, [facility] [place] [facility] [address] [id number] [place] [address]- 7222 Jul, [facility] [place] [facility] [address] [id number] [place] [address]- 8510 Jul, [facility] [place] [facility] [address] [id number] [place] [address]- 3510 Jul, [facility] [place] [facility] [address] [id number] [place] [address]- 7933 Jul, [facility] [place] [facility] [address] [id number] [place] [address]- 2142 Jul, [facility] [place] [facility] [address] [id number] [place] [address]- 0742 10 Jun, 2013 [facility] [place] [facility] [address] [id number] [place] [address]- 5895 Jun, [facility] [place] [facility] [address] [id number] [place] [address]- 5291 10 Jun, 2013 [facility] [place] [facility] [address] [id number] [place] [address]- 4005 Jun, [facility] [place] [facility] [address] [id number] [place] [address]- 4003 May, [facility] [place] [facility] [address] [id number] [place] [address]- 0093 May, [facility] [place] [facility] [address] [id number] [place] [address]- 2639 May, [facility] [place] [facility] [address] [id number] [place] [address]- 0338 May, [facility] [place] [facility] [address] [id number] [place] [address]- 1837 May, [facility] [place] [facility] [address] [id number] [place] [address]- 7439 Mar, [facility] [place] [facility] [address] [id number] [place] [address]- 5639 Mar, [facility] [place] [facility] [address] [id number] [place] [address]- 9919 Mar, [facility] [place] [facility] [address] [id number] [place] [address]- 8282 Mar, [facility] [place] [facility] [address] [id number] [place] [address]- 0943 Mar, [facility] [place] [facility] [address] [id number] [place] [address]- 5813 Mar, [facility] [place] [facility] [address] [id number] [place] [address]- 1816 Feb, [facility] [place] [facility] [address] [id number] [place] [address]- 2218 Feb, [facility] [place] [facility] [address] [id number] [place] [address]- 4633 Feb, [facility] [place] [facility] [address] [id number] [place] [address]- 8314 Feb, [facility] [place] [facility] [address] [id number] [place] [address]- 8773 Feb, [facility] [place] [facility] [address] [id number] [place] [address]- 7098 Feb, [facility] [place] [facility] [address] [id number] [place] [address]- 6334 Feb, [facility] [place] [facility] [address] [id number] [place] [address]- 2237 Feb, [facility] [place] [facility] [address] [id number] [place] [address]- 7431 Feb, [facility] [place] [facility] [address] [id number] [place] [address]- 4980 Feb, [facility] [place] [facility] [address] [id number] [address]- 1654 Feb, [facility] [place] [facility] [address] [id number] [place] [address]- 7876 Feb, [facility] [place] [facility] [address] [id number] [place] [address]- 8052 Jan, [facility] [place] [facility] [address] [id number] [place] [address] 2549 Jan, [facility] [place] [facility] [address] [id number] [address] 254 Dec, [facility] [place] [facility] [address] [id number] [place] [address]- 2543 Dec, [facility] [place] [facility] [address] [id number] [address]- 2543 Nov, [facility] [place] [facility] [address] [id number] [place] [address]- 2543 Nov, [facility] [place] [facility] [address] [id number] [place] [address]- 6257 Nov, [facility] [address] [id number] [place] [address]- 3540 Nov, [facility] [place] [facility] [address] [id number] [place] [address] 2546 Nov, [facility] [address] [id number] [place] [address]- 7834 Oct, [facility] [address] [id number] [place] [address]- 2546 September, [facility] [address] [id number] [place] [address]- 9031 Aug, [facility] [address] [id number] [place] [address]- 4986 Jul, [facility] [address] [id number] [place] [address]- 5017 Jul, [facility] [address] [id number] [place] [address]- 1358 Jul, [facility] [address] [id number] [place] [address]- 7732 28 Jun, 2012 [facility] [address] [id number] [place] [address]- 8284 14 Jun, 2012 [facility] [place] [facility] [address] [id number] [place] [address] 2546 Jun, [facility] [address] [id number] [place] [address]- 254 Jun, [facility] [place] [facility] [address] [id number] [place] [address]- 2546 Jun, [facility] [place] [facility] [address] [id number] [place] [address]- 2546 May, [facility] [place] [facility] [address] [id number] [place] [address]- 8058 May, [facility] [place] [facility] [address] [id number] [place] [address]- 5725 Apr, [facility] [place] [facility] [address] [id number] [place] [address]- 1145 Apr, [facility] [place] [facility] [address] [id number] [place] [address]- 4843 Mar, [facility] [place] [facility] [address] [id number] [place] [address]- 2351 Mar, [facility] [place] [facility] [address] [id number] [place] [address]- 6631 Mar, [facility] [place] [facility] [address] [id number] [place] [address]- 9870 Mar, [facility] [place] [facility] [address] [facility] [id number] [place] [address]- 4612 Mar, [facility] [place] [facility] [address] [id number] [place] [address]- 9664 Mar, [facility] [place] [facility] [address] [id number] [place] [address]- 4243 Mar, [facility] [place] [facility] [address] [facility] [id number] [place] [address]- 4276 Mar, [facility] [place] [facility] [address] [id number] [place] [address]- 3194 Mar, [facility] [place] [facility] [address] [id number] [place] [address]- 0715 Mar, [facility] [place] [facility] [address] [id number] [place] [address]- 9139 Feb, [facility] [place] [facility] [address] [id number] [place] [address]- 8617 Feb, [facility] [place] [facility] [address] [facility] [id number] [place] [address]- 6631 Feb, [facility] [place] [facility] [address] [id number] [place] [address]- 2896 30 Feb, 2012 [facility] [place] [facility] [address] [id number] [place] [address]- 5342 Feb, [facility] [place] [facility] [address] [id number] [place] [address]- 0546 Feb, [facility] [place] [facility] [address] [id number] [place] [address] 2546 Jan, [facility] [place] [facility] [address] [id number] [place] [address] 2540 Jan, [facility] [place] [facility] [address] [id number] [place] [address]- 2586 Dec, [facility] [place] [facility] [address] [id number] [place] [address]- 3078 Dec, [facility] [place] [facility] [address] [id number] [place] [address]- 6090 Dec, [facility] [place] [facility] [address] [id number] [place] [address]- 8199 Nov, [facility] [place] [facility] [address] [id number] [place] [address]- 6143 September, [facility] [place] [facility] [address] [id number] [place] [address]- 1705 September, [facility] [place] [facility] [address] [id number] [place] [address]- 3367 September, [facility] [place] [facility] [address] [id number] [place] [address]- 9565 September, [facility] [place] [facility] [address] [id number] [place] [address]- 0158 Aug, [facility] [place] [facility] [address] [id number] [place] [address]- 1925 Aug, [facility] [place] [facility] [address] [id number] [place] [address]- 3248 Aug, [facility] [place] [facility] [address] [id number] [place] [address]- 9347 Aug, [facility] [place] [facility] [address] [id number] [place] [address]- 6886 Aug, [facility] [place] [facility] [address] [id number] [place] [address]- 0956 Jul, [facility] [place] [facility] [address] [id number] [place] [address]- 1776 Jul, [facility] [place] [facility] [address] [id number] [place] [address]- 9243 Jul, [facility] [place] [facility] [address] [id number] [place] [address]- 5600 29 Jun, 2011 [facility] [place] [facility] [address] [id number] [place] [address]- 9316 17 Jun, 2011 [facility] [place] [facility] [address] [id number] [place] [address]- 5800 Jun, [facility] [place] [facility] [address] [id number] [place] [address]- 6813 Jun, [facility] [place] [facility] [address] [id number] [place] [address]- 9931 Jun, [facility] [place] [facility] [address] [facility] [id number] [place] [address]- 4018 Jun, [facility] [place] [facility] [address] [id number] [place] [address]- 2902 Jun, [facility] [place] [facility] [address] [id number] [place] [address]- 6301 May, [facility] [place] [facility] [address] [id number] [place] [address]- 3346 May, [facility] [place] [facility] [address] [id number] [place] [address]- 2791 May, [facility] [place] [facility] [address] [id number] [place] [address]- 7477 12 May, 2011 [facility] [address] [id number] [place] [address]- 0129 27 Apr, 2011 [facility] [place] [facility] [address] [id number] [place] [address]- 3356 13 Apr, 2011 [facility] [address] [id number] [place] [address]- 9426 Mar, [facility] [place] [facility] [address] [id number] [place] [address]- 0637 Mar, [facility] [address] [id number] [place] [address]- 0290 Mar, [facility] [place] [facility] [address] [id number] [place] [address]- 4966 Nov, [facility] [address] [id number] [place] [address]- 3942 May, [facility] [place] [facility] [address] [id number] [place] [address]- 8027 Apr, [facility] [place] [facility] [address] [id number] [place] [address]- 0149 Apr, [facility] [place] [facility] [address] [id number] [place] [address]- 9619 Apr, [facility] [place] [facility] [address] [id number] [place] [address]- 1909 Apr, [facility] [place] [facility] [address] [id number] [place] [address]- 8902 Apr, [facility] [place] [facility] [address] [id number] [place] [address]- 5590 18 Mar, 2010 [facility] [place] [facility] [address] [id number] [place] [address]- 9996 Mar, [facility] [place] [facility] [address] [id number] [place] [address]- 4846 Feb, [facility] [place] [facility] [address] [id number] [address]- 2546 Aug, [facility] [place] [id number] [address]- 8436 Jul, [facility] [place] [id number] [address]- 2546 Jun, [facility] [place] [id number] [address]- 2546 Apr, [facility] [place] [id number] [address]- 2546 Apr, [facility] [place] [id number] [address]- 2546 Mar, [facility] [place] [id number] [address]- 2546 Mar, [facility] [place] [id number] [address]- 2546 Feb, [facility] [place] [id number] [address]- 2764 Dec, [facility] [place] [address] [id number] [address]- 3076 Oct, IMMUNIZATIONS No Known Immunizations SOCIAL HISTORY Never Assessed REASON FOR VISIT EMR-[facility] [place] PLAN OF CARE [...] Hospitalization History surgery 2013 Hospitalization History A Fib--[facility] 03/08/2016 Hospitalization History acute chest pain, hypertensive urgency, paroxsysmal htn-[facility] 05/10/16
--- OUTSIDE RECORDS SUMMARY | 2018-09-17 11:32 | XMS REPORT ---
Author Author Migration, Doctor Organization [facility] Address Unknown Phone Unavailable Care Team Providers Care Desktop Architect Name Role Phone Migration, Doctor Unavailable Unavailable PROBLEMS Type Condition ICD9-CM Code XWW12-XQ Code Onset Dates Condition Status SNOMED Code Problem Generalized anxiety disorder F41.1 Active 268301917 Problem Primary insomnia F51.01 Active 846270061 Problem Chronic migraine G43.709 Active 65644230 Problem Mild intermittent asthma without complication J45.20 Active 730546465 Problem Idiopathic peripheral neuropathy G60.9 Active 57983289 Problem Hidradenitis L73.2 Active 85953139 Problem Obstructive sleep apnea G47.33 Active 66170885 Problem Elevated alkaline phosphatase level R74.8 Active 945167147 Problem Vitamin D deficiency E55.9 Active 97851790 Problem Hyponatremia E87.1 Active 20994142 Problem Chronic frontal sinusitis J32.1 Active 65785270 Problem Secondary pulmonary arterial hypertension I27.21 Active 78468942 Problem Hyperlipidemia E78.5 Active 89755347 Problem BMI 40.0-44.9, adult Z68.41 Active 956788584 Problem Essential hypertension I10 Active 37490177 Problem Seasonal allergies J30.2 Active 582301238 Problem Paroxysmal atrial fibrillation I48.0 Active 399921491 Problem Other chronic gastritis without hemorrhage K29.50 Active 2490190 Problem Depression, unspecified depression type F32.9 Active 45849350 Problem Fasciculations of muscle R25.3 Active 95940551 ALLERGIES No Information ENCOUNTERS Encounter Location Date Diagnosis [facility] [address] [facility] [id number] [address] Aug, [facility] [address] [id number] [address] 4058 Jul, Essential hypertension I10 [facility] [address] [id number] [address] 8035 Jul, Essential hypertension I10 [facility] [address] [id number] [address] 1849 Jul, [facility] [id number] [place] [address] 65196- 9134 Jun, [facility] [id number] [place] [address] 65801- 5854 May, Essential hypertension I10 [facility] [address] 38366- 1409 May, Essential hypertension I10 [facility] [id number] [place] [address] 01305- 8598 Apr, Essential hypertension I10 ; Intertrigo L30.4 ; Mild intermittent asthma without complication J45.20 and BMI 40.0-44.9, adult Z68.41 [facility] [id number] [place] [address] 32920- 8064 Apr, Essential hypertension I10 [facility] [id number] [place] [address] 84490- 1171 Mar, [facility] [id number] [place] [address] 56176- 9452 Mar, [facility] [id number] [place] [address] 27313- 7474 Feb, Essential hypertension I10 [facility] [id number] [place] [address] 00682- 8593 Feb, Intertrigo L30.4 and Encounter for immunization Z23 [facility] [id number] [place] [address] 11473- 4804 Feb, [facility] [address] 55556- 0156 Jan, Essential hypertension I10 [facility] [id number] [place] [address] 68740- 2793 Jan, [facility] [id number] [place] [address] 68180- 9193 Jan, Screening for cervical cancer Z12.4 ; BMI 40.0-44.9, adult Z68.41 ; Screening for breast cancer Z12.31 ; Candidal intertrigo B37.2 and Elevated glucose level R73.09 [address], [place] [address] 3567 Jan, Essential hypertension I10 [place] [id number] [place] [address] 66024- 7878 Dec, [place] [id number] [place] [address] 25711- 1315 Dec, [place] [id number] [place] [address] 71077- 6624 Dec, Essential hypertension I10 [place] [facility] [id number] [place] [address] 96813- 6100 Nov, Essential hypertension I10 [place] [id number] [place] [address] 14894- 5907 Nov, [place] [id number] [place] [address] 38872- 2677 Nov, Essential hypertension I10 and BMI 40.0-44.9, adult Z68.41 [place] [id number], [place] [address]- 6851 Oct, Essential hypertension I10 and Chronic kidney disease, unspecified CKD stage N18.9 [place] [address] [id number], [place] [address]- 1228 Oct, Essential hypertension I10 and Chronic kidney disease, unspecified CKD stage N18.9 [place] [facility] [id number] [place] [address] 48939- 3151 Oct, [address] [address], [place] [address]- 4106 September, Medicare annual wellness visit, initial Z00.00 ; Mild intermittent asthma without complication J45.20 ; Generalized anxiety disorder F41.1 ; Depression, unspecified depression type F32.9 ; Paroxysmal atrial fibrillation I48.0 ; Obstructive sleep apnea G47.33 ; Hyponatremia E87.1 ; Need for hepatitis C screening test Z11.59 ; Encounter for immunization Z23 ; Secondary pulmonary arterial hypertension I27.21 and BMI 40.0-44.9, adult Z68.41 [facility] [address] 16057- 0473 30 Aug, 2017 Essential hypertension I10 [facility] [address] 09415 -0780 Jun, Dysuria R30.0 ; UTI symptoms R39.9 and Candidiasis of breast B37.89 [facility] [address] 22926- 1668 Jun, Hyponatremia E87.1 [facility] [address] 69748- 5450 Jun, Hyponatremia E87.1 [facility] [address] 77805- 3123 Jun, Hyponatremia E87.1 [facility] [address] 91846- 4958 Jun, [facility] [address] 07105- 9090 May, Hyponatremia E87.1 [facility] [address] 15663- 6968 May, Hyponatremia E87.1 [facility] [address] 11264- 8049 May, Hyponatremia E87.1 [facility] [address] 75301- 2655 May, Hyponatremia E87.1 [facility] [address] 79521- 7962 Apr, Hyponatremia E87.1 ; Fasciculations of muscle R25.3 and Hyperlipidemia E78.5 [facility] [id number] [place] [address] 94415- 2280 Apr, Cough R05 ; Hyponatremia E87.1 ; Fasciculations of muscle R25.3 ; Primary insomnia F51.01 ; Essential hypertension I10 ; Hyperlipidemia E78.5 ; Screening for breast cancer Z12.31 and BMI 40.0-44.9, adult Z68.41 [facility] [id number] [place] [address] 53339- 7427 Apr, Essential hypertension I10 [facility] [id number] [place] [address] 12029- 7911 Mar, [facility] [id number] [place] [address] 91757- 9169 Mar, [facility] [id number] [place] [address] 63340- 4265 Mar, [facility] [id number] [place] [address] 66081- 4361 Feb, [facility] [id number] [place] [address] 69572- 0381 Jan, [facility] [id number] [place] [address] 37141- 3904 Dec, Essential hypertension I10 [facility] [id number] [place] [address] 58712- 8785 Dec, [facility] [id number] [place] [address] 74254- 7669 Dec, Essential hypertension I10 [facility] [id number] [place] [address] 042280- 8086 Nov, [facility] [id number] [place] [address] 09325- 1671 Oct, Essential hypertension I10 [facility] [id number] [place] [address] 06399- 8142 Oct, Essential hypertension I10 [place] [id number] [place] [address] 36966- 6139 Oct, [facility] [id number] [place] [address] 59288- 5301 September, [place] [id number] [place] [address] 31498- 1786 September, Essential hypertension I10 [place] [address] 03080- 7584 September, [place] [address] 17482- 5721 September, Essential hypertension I10 ; Hyperlipidemia E78.5 and Hyponatremia E87.1 [place] [id number] [place] [address] 81534- 4560 September, Mild intermittent asthma without complication J45.20 ; Essential hypertension I10 ; Hyperlipidemia E78.5 ; Hyponatremia E87.1 and Dysuria R30.0 [place] [id number] [place] [address] 88537- 6592 September, Other chronic gastritis without hemorrhage K29.50 ; Paroxysmal atrial fibrillation I48.0 and Essential hypertension I10 [address] [id number] [place] [address] 12873- 6326 Aug, [facility] [id number] [place] [address] 01011- 8570 14 Jul, 2016 [facility] [id number] [place] [address] 56997- 9635 14 Jun, 2016 [facility] [id number] [place] [address] 94443 -8756 07 Jun, 2016 Dysuria R30.0 and Acute cystitis with hematuria N30.01 [facility] [id number] [place] [address] 34542- 6280 Jun, Essential hypertension I10 [facility] [id number] [place] [address] 72627- 4844 May, Paroxysmal atrial fibrillation I48.0 [facility] [id number] [place] [address] 54100- 4649 May, Other chronic gastritis without hemorrhage K29.50 [facility] [address] 56773- 8224 May, [facility] [id number] [place] [address] 85097- 7894 May, Hyponatremia E87.1 ; Essential hypertension I10 and Other chronic gastritis without hemorrhage K29.50 [facility] [id number] [place] [address] 22349- 8179 May, Hyponatremia E87.1 [facility] [address] 18018- 7936 May, Hyponatremia E87.1 [facility] [address] [id number] May, [facility] [id number] [place] [address] 01713- 6317 Apr, [facility] [id number] [place] [address] 92810- 2871 Apr, [facility] [id number] [place] [address] 70177- 5043 Mar, Essential hypertension I10 and Candidal intertrigo B37.2 [facility] [id number] [place] [address] 70856- 5000 Mar, Hyponatremia E87.1 [facility] [id number] [place] [address] 15932- 8155 14 Mar, 2016 [facility] [id number] [place] [address] 74795- 7943 Mar, Hyponatremia E87.1 [facility] [id number] [place] [address] 86203- 2397 09 Mar, 2016 Essential hypertension I10 ; Hyponatremia E87.1 ; Slurred speech R47.81 ; Paroxysmal atrial fibrillation I48.0 and Elevated blood sugar R73.9 [facility] [id number] [place] [address] 61109- 5911 Mar, [facility] [address] 85273- 9689 Mar, [facility] [address] 85021- 6373 Feb, [place] [address] 74027- 3504 Jan, [facility] [address] 18112- 0493 Dec, [facility] [address] 92123 -4691 Nov, Scratched by cat, initial encounter W55.03XA and Other injury of unspecified body region T14.8 [place] [address] 87617- 3441 Nov, [facility] [id number] [place] [address] 09049- 7326 Oct, [place] [address] 29552- 8536 September, [facility] [address] 24310- 7649 Aug, Elevated alkaline phosphatase level R74.8 [place] [address] 11707- 4420 Jul, [facility] [id number] [place] [address] 52482- 0531 Jun, Essential hypertension I10 and Bright red blood per rectum K62.5 [place] [id number] [place] [address] 96326- 4570 11 Jun, 2015 Elevated alkaline phosphatase level R74.8 [place] [address] 15886- 0681 10 Jun, 2015 [place] [address] 30239- 9044 May, Essential hypertension I10 ; Hyperlipidemia E78.5 and Well woman exam (no gynecological exam) Z00.00 [place] [id number] [place] [address] 10472- 8395 May, [place] [address] 01006- 9111 May, [place] [address] 19664- 0901 Mar, [place] [address] 21091- 7777 Mar, [place] [id number] [place] [address] 25749- 2918 Mar, [place] [id number] [place] [address] 52492- 2656 Feb, Acute recurrent maxillary sinusitis J01.01 ; Asthma, unspecified, unspecified status 493.90 ; Seasonal allergies J30.2 and Cat allergies J30.81 [address] [id number] [place] [address] 83678- 5308 13 Feb, 2015 Upper respiratory tract infection, unspecified upper respiratory infection J06.9 [place] [id number] [place] [address] 47622- 8064 Jan, [place] [address] 84734- 0431 02 Jan, 2015 Dysphagia 787.20 and GERD (gastroesophageal reflux disease) 530.81 [place] [address] 78719- 1156 Jan, Breast lesion 611.9 [facility] [id number] [place] [address] 43720- 9356 Dec, Breast lesion 611.9 [facility] [id number] [place] [address] 34111- 0426 Dec, Breast lesion 611.9 [facility] [id number] [place] [address] 68299- 2956 Nov, Fatigue 780.79 and Hyperlipidemia 272.4 [facility] [id number] [place] [address] 81706- 6475 Nov, Hypertension 401.9 ; Hyperlipidemia 272.4 ; Chronic frontal sinusitis 473.1 and Fatigue 780.79 [facility] [id number] [place] [address] 62027- 9569 Nov, [facility] [id number] [place] [address] 66181- 3037 Oct, [facility] [id number] [place] [address] 72822- 3762 Oct, [facility] [id number] [place] [address] 75916- 8806 September, [facility] [address], [place] [address]- 9286 September, [facility] [address], [place] [address]- 2546 September, [facility] [address], [place] [address]- 2546 September, [facility] [id number] [place] [address] 93193- 8846 Aug, [facility] [address], [place] [address]- 0016 Aug, [facility] [id number] [place] [address] 19029- 5905 13 Aug, 2014 [facility] [place] [facility] [address] [id number] [place] [address]- 7621 20 Jul, 2014 [facility] [place] [facility] [address] [id number] [place] [address]- 5244 20 Jul, 2014 [facility] [place] [facility] [address] [id number] [place] [address]- 1853 19 Jul, 2014 [facility] [place] [facility] [address] [id number] [place] [address]- 4000 19 Jul, 2014 [facility] [place] [facility] [address] [id number] [place] [address]- 3172 18 Jul, 2014 [facility] [place] [facility] [address] [id number] [place] [address]- 8306 17 Jul, 2014 [facility] [place] [facility] [address] [id number] [place] [address]- 1994 17 Jul, 2014 [facility] [place] [facility] [address] [id number] [place] [address]- 0298 16 Jul, 2014 [facility] [place] [facility] [address] [id number] [place] [address]- 1253 16 Jul, 2014 [facility] [place] [facility] [address] [id number] [place] [address]- 0135 12 Jul, 2014 [facility] [place] [facility] [address] [id number] [place] [address]- 2933 12 Jul, 2014 [facility] [place] [facility] [address] [id number], [place] [address]- 7982 09 Jul, 2014 [facility] [place] [facility] [address] [id number] [place] [address]- 5401 Jul, [facility] [place] [facility] [address] [id number] [place] [address]- 5845 04 Jul, 2014 [facility] [place] [facility] [address] [id number] [place] [address]- 2822 04 Jul, 2014 [facility] [place] [facility] [address] [id number] [place] [address]- 3328 Jun, 2014 [facility] [address] [id number] [place] [address]- 2386 Jun, 2014 [facility] [place] [facility] [address] [id number] [place] [address]- 3826 Jun, 2014 [facility] [address] [id number] [place] [address]- 6566 Jun, 2014 [facility] [place] [facility] [address] [id number] [place] [address]- 7715 May, [facility] [place] [facility] [address] [id number] [place] [address]- 8223 May, [facility] [place] [facility] [address] [id number] [place] [address]- 9020 May, [facility] [place] [facility] [address] [id number] [place] [address]- 2134 May, [facility] [address] [id number] [place] [address]- 0373 Apr, [facility] [place] [facility] [address] [id number] [place] [address]- 4561 Apr, [facility] [place] [facility] [address] [id number] [place] [address]- 6646 Apr, [facility] [place] [facility] [address] [id number] [place] [address]- 4898 Apr, [facility] [place] [facility] [address] [id number] [place] [address]- 3403 Apr, [facility] [place] [facility] [address] [id number] [place] [address]- 2200 Apr, [facility] [place] [facility] [address] [id number] [place] [address]- 5874 Mar, [facility] [place] [facility] [address] [id number] [id number] 9328 Mar, [facility] [place] [facility] [address] [id number] [place] [address]- 1185 Mar, [facility] [place] [facility] [address] [id number] [place] [address]- 1759 Mar, [facility] [place] [facility] [address] [id number] [place] [address]- 0856 Mar, [facility] [place] [facility] [address] [id number] [place] [address]- 9060 Mar, [facility] [place] [facility] [address] [id number] [place] [address]- 5327 Mar, [facility] [place] [facility] [address] [id number] [place] [address]- 3257 Mar, [facility] [place] [facility] [address] [id number] [place] [address]- 0035 Mar, [facility] [place] [facility] [address] [id number] [place] [address]- 2441 Mar, [facility] [place] [facility] [address] [id number] [place] [address]- 5546 Mar, [facility] [place] [facility] [address] [id number] [place] [address]- 7280 Mar, [facility] [place] [facility] [address] [id number] [place] [address]- 6715 Mar, [facility] [place] [facility] [address] [id number], [place] [address]- 2066 Mar, [facility] [place] [facility] [address] [id number] [place] [address]- 4798 Mar, [facility] [place] [facility] [address] [id number] [place] [address]- 5783 Mar, [facility] [place] [facility] [address] [id number] [place] [address] Mar, [facility] [place] [facility] [address] [id number] [place] [address] 30 Feb, 2013 [facility] [place] [facility] [address] [id number] [place] [address] 30 Feb, 2013 [facility] [place] [facility] [address] [id number] [place] [address] 30 Feb, 2013 [facility] [place] [facility] [address] [id number] [place] [address] 30 Feb, 2013 [facility] [place] [facility] [address] [id number] [place] [address] 29 Feb, 2013 [facility] [place] [facility] [address] [id number] [place] [address] 29 Feb, 2013 [facility] [place] [facility] [address] [id number] [place] [address] Feb, 2013 [facility] [place] [facility] [address] [id number] [place] [address] Feb, 2013 [facility] [place] [facility] [address] [id number] [place] [address] 4[address] 28 Feb, 2013 [facility] [place] [facility] [address] [id number] [place] [address] 7936 28 Feb, 2013 [facility] [place] [facility] [address] [id number] [place] [address]574 16 Feb, 2013 [facility] [place] [facility] [address] [id number] [place] [address]673 16 Feb, 2013 [facility] [place] [facility] [address] [id number], [place] [address] 15 Feb, 2013 [facility] [place] [facility] [address] [id number] [place] [address]- 3036 15 Feb, 2013 [facility] [place] [facility] [address] [id number], [place] [address] 08 Feb, 2013 [facility] [place] [facility] [address] [id number], [place] [address] 08 Feb, 2013 [facility] [place] [facility] [address] [id number] [place] [address] Feb, [facility] [place] [facility] [address] [id number] [place] [address] Feb, [facility] [place] [facility] [address] [id number] [place] [address] Feb, [facility] [place] [facility] [address] [id number] [place] [address]46 30 Jan, 2013 [facility] [place] [facility] [address] [id number] [place] [address] 2543 30 Jan, 2013 [facility] [place] [facility] [address] [id number] [place] [address] 2546 29 Jan, 2013 [facility] [place] [facility] [address] [id number] [place] [address]- 9569 29 Jan, 2013 [facility] [place] [facility] [address] [id number] [place] [address] 24 Jan, 2013 [facility] [place] [facility] [address] [id number] [place] [address]40 24 Jan, 2013 [facility] [place] [facility] [address] [id number] [place] [address]- [address]385 10 Jan, 2014 [facility] [place] [facility] [address] [id number] [place] [address] 2542 08 Jan, 2014 [facility] [place] [facility] [address] [id number] [place] [address] 08 Jan, 2014 [facility] [place] [facility] [address] [id number] [place] [address] 254 Dec, [facility] [place] [facility] [address] [id number] [place] [address] 2546 Dec, [facility] [place] [facility] [address] [id number] [place] [address]- [address] Dec, [facility] [place] [facility] [address] [id number] [place] [address] Dec, [facility] [place] [facility] [address] [id number] [place] [address] Dec, [facility] [place] [facility] [address] [id number] [place] [address] Dec, [facility] [place] [facility] [address] [id number] [place] [address] Dec, [facility] [place] [facility] [address] [id number] [place] [address] Dec, [facility] [place] [facility] [address] [id number] [place] [address] Dec, [facility] [place] [facility] [address] [id number] [place] [address] Nov, [facility] [place] [facility] [address] [id number] [place] [address] Nov, [facility] [place] [facility] [address] [id number] [place] [address]- [address] Nov, [facility] [place] [facility] [address] [id number] [place] [address] Nov, [facility] [place] [facility] [address] [id number] [place] [address] Nov, [facility] [place] [facility] [address] [id number] [place] [address] Nov, [facility] [place] [facility] [address] [id number] [place] [address] 1492 Oct, [facility] [place] [facility] [address] [id number] [place] [address] Oct, [facility] [place] [facility] [address] [id number] [place] [address] 7968 Oct, [facility] [place] [facility] [address] [id number] [place] [address] 0790 Oct, [facility] [place] [facility] [address] [id number] [place] [address] 5773 Oct, [facility] [place] [facility] [address] [id number] [place] [address] 5846 Oct, [facility] [place] [facility] [address] [id number] [place] [address] 8207 Oct, [facility] [place] [facility] [address] [id number] [place] [address] 7794 Oct, [facility] [place] [facility] [address] [id number] [place] [address] 4565 Oct, [facility] [place] [facility] [address] [id number] [place] [address]- 9867 Oct, [facility] [place] [facility] [address] [id number] [place] [address]- 0581 Oct, [facility] [place] [facility] [address] [id number] [place] [address] 9265 Oct, [facility] [place] [facility] [address] [id number] [place] [address]- 3568 Oct, [facility] [place] [facility] [address] [id number] [place] [address]- 5945 Oct, [facility] [place] [facility] [address] [id number] [place] [address]- 9556 September, [facility] [place] [facility] [address] [id number] [place] [address]- 3246 September, [facility] [place] [facility] [address] [id number] [place] [address]- 5530 September, [facility] [place] [facility] [address] [id number] [place] [address]- 5045 September, [facility] [place] [facility] [address] [id number] [place] [address]- 2138 September, [facility] [place] [facility] [address] [id number] [place] [address]- 4779 September, [facility] [place] [facility] [address] [id number] [place] [address] 5403 September, [facility] [address] [id number] [place] [address] September, [facility] [address] [id number] [place] [address] 4879 September, [facility] [place] [facility] [address] [id number] [place] [address]- 4251 September, [facility] [address] [id number] [place] [address]- 6829 September, [facility] [place] [facility] [address] [id number] [place] [address]- 4123 September, [facility] [address] [id number] [place] [address]- 4719 September, [facility] [address] [id number] [place] [address]- 3315 September, [facility] [address] [id number] [place] [address]- 0716 September, [facility] [place] [facility] [address] [id number] [place] [address]- 0919 September, [facility] [place] [facility] [address] [id number] [place] [address]- 6721 September, [facility] [place] [facility] [address] [id number] [place] [address]- 0684 September, [facility] [place] [facility] [address] [id number] [place] [address]- 0673 September, [facility] [place] [facility] [address] [id number] [place] [address] 0355 Aug, [facility] [place] [facility] [address] [id number] [place] [address]- 3481 Aug, [facility] [place] [facility] [address] [id number] [place] [address]- 1817 31 Jul, 2013 [facility] [place] [facility] [address] [id number] [place] [address]- 8655 31 Jul, 2013 [facility] [place] [facility] [address] [id number] [place] [address]- 2074 28 Jul, 2013 [facility] [place] [facility] [address] [id number] [place] [address]- 6706 Jul, [facility] [place] [facility] [address] [id number] [place] [address]- 0936 Jul, [facility] [place] [facility] [address] [id number] [place] [address]- 0800 Jul, [facility] [place] [facility] [address] [id number] [place] [address]- 7519 Jul, [facility] [place] [facility] [address] [id number] [place] [address]- 0757 Jul, [facility] [place] [facility] [address] [id number] [place] [address]- 9495 Jul, [facility] [place] [facility] [address] [id number] [place] [address]- 9536 Jul, [facility] [place] [facility] [address] [id number] [place] [address]- 9650 Jul, [facility] [place] [facility] [address] [id number] [place] [address]- 9785 Jul, [facility] [place] [facility] [address] [id number] [place] [address]- 3814 Jul, [facility] [place] [facility] [address] [id number] [place] [address]- 1025 Jul, [facility] [place] [facility] [address] [id number] [place] [address]- 9543 10 Jun, 2013 [facility] [place] [facility] [address] [id number] [place] [address]- 5750 Jun, [facility] [place] [facility] [address] [id number] [place] [address]- 6980 10 Jun, 2013 [facility] [place] [facility] [address] [id number] [place] [address]- 9037 Jun, [facility] [place] [facility] [address] [id number] [place] [address]- 4980 May, [facility] [place] [facility] [address] [id number] [place] [address]- 7304 May, [facility] [place] [facility] [address] [id number] [place] [address]- 6636 May, [facility] [place] [facility] [address] [id number] [place] [address]- 4106 May, [facility] [place] [facility] [address] [id number] [place] [address]- 3977 May, [facility] [place] [facility] [address] [id number] [place] [address]- 6963 Mar, [facility] [place] [facility] [address] [id number] [place] [address]- 0906 Mar, [facility] [place] [facility] [address] [id number] [place] [address]- 9363 Mar, [facility] [place] [facility] [address] [id number] [place] [address]- 9702 Mar, [facility] [place] [facility] [address] [id number] [place] [address]- 2286 Mar, [facility] [place] [facility] [address] [id number] [place] [address]- 7106 Mar, [facility] [place] [facility] [address] [id number] [place] [address]- 0937 Feb, [facility] [place] [facility] [address] [id number] [place] [address]- 8519 Feb, [facility] [place] [facility] [address] [id number] [place] [address]- 0096 Feb, [facility] [place] [facility] [address] [id number] [place] [address]- 9971 Feb, [facility] [place] [facility] [address] [id number] [place] [address]- 6064 Feb, [facility] [place] [facility] [address] [id number] [place] [address]- 0880 Feb, [facility] [place] [facility] [address] [id number] [place] [address]- 7761 Feb, [facility] [place] [facility] [address] [id number] [place] [address]- 0983 Feb, [facility] [place] [facility] [address] [id number] [place] [address]- 6382 Feb, [facility] [place] [facility] [address] [id number] [place] [address]- 0695 Feb, [facility] [place] [facility] [address] [id number] [address]- 6149 Feb, [facility] [place] [facility] [address] [id number] [place] [address]- 5419 Feb, [facility] [place] [facility] [address] [id number], [place] [address]- 8853 Jan, [facility] [place] [facility] [address] [id number], [place] [address] 2549 Jan, [facility] [place] [facility] [address] [id number], [place] [address] 2549 Dec, [facility] [place] [facility] [address] [id number] [place] [address]- 254 Dec, [facility] [place] [facility] [address] [id number] [address]- 2545 Nov, [facility] [place] [facility] [address] [id number] [place] [address]- 2544 Nov, [facility] [place] [facility] [address] [id number] [place] [address]- 8069 Nov, [facility] [address] [id number] [place] [address]- 2594 Nov, [facility] [place] [facility] [address] [id number] [place] [address] 2546 Nov, [facility] [address] [id number] [place] [address]- 8875 Oct, [facility] [address] [id number] [place] [address]- 2546 September, [facility] [address] [id number] [place] [address]- 0052 Aug, [facility] [address] [id number] [place] [address]- 9106 Jul, [facility] [address] [id number] [place] [address]- 0864 Jul, [facility] [address] [id number] [place] [address]- 7066 Jul, [facility] [address] [id number] [place] [address]- 8336 28 Jun, 2012 [facility] [address] [id number] [place] [address]- 5796 14 Jun, 2012 [facility] [place] [facility] [address] [id number] [place] [address] 2546 Jun, [facility] [address] [id number] [place] [address]- 254 Jun, [facility] [place] [facility] [address] [id number] [place] [address]- 2546 Jun, [facility] [place] [facility] [address] [id number] [place] [address]- 2546 May, [facility] [place] [facility] [address] [id number] [place] [address]- 1605 May, [facility] [place] [facility] [address] [id number] [place] [address]- 5116 Apr, [facility] [place] [facility] [address] [id number] [place] [address]- 9800 Apr, [facility] [place] [facility] [address] [id number] [place] [address]- 3476 Mar, [facility] [place] [facility] [address] [id number] [place] [address]- 9611 Mar, [facility] [place] [facility] [address] [id number] [place] [address]- 2028 Mar, [facility] [place] [facility] [address] [id number] [place] [address]- 9640 Mar, [facility] [place] [facility] [address] [facility] [id number] [place] [address]- 2047 Mar, [facility] [place] [facility] [address] [id number], [place] [address]- 0742 Mar, [facility] [place] [facility] [address] [id number] [place] [address]- 7138 Mar, [facility] [place] [facility] [address] [facility] [id number], [place] [address]- 9404 Mar, [facility] [place] [facility] [address] [id number], [place] [address]- 1311 Mar, [facility] [place] [facility] [address] [id number], [place] [address]- 9269 Mar, [facility] [place] [facility] [address] [id number] [place] [address]- 4696 Feb, [facility] [place] [facility] [address] [id number], [place] [address]- 7619 Feb, [facility] [place] [facility] [address] [facility] [id number] [place] [address]- 4369 Feb, [facility] [place] [facility] [address] [id number] [place] [address]- 1607 30 Feb, 2012 [facility] [place] [facility] [address] [id number] [place] [address]- 8556 Feb, [facility] [place] [facility] [address] [id number] [place] [address]- 6576 Feb, [facility] [place] [facility] [address] [id number] [place] [address] 2546 Jan, [facility] [place] [facility] [address] [id number] [place] [address] 2541 Jan, [facility] [place] [facility] [address] [id number] [place] [address]- 7457 Dec, [facility] [place] [facility] [address] [id number] [place] [address]- 4566 Dec, [facility] [place] [facility] [address] [id number] [place] [address]- 3699 Dec, [facility] [place] [facility] [address] [id number] [place] [address]- 5363 Nov, [facility] [place] [facility] [address] [id number] [place] [address]- 6534 September, [facility] [place] [facility] [address] [id number] [place] [address]- 9555 September, [facility] [place] [facility] [address] [id number] [place] [address]- 9854 September, [facility] [place] [facility] [address] [id number] [place] [address]- 1964 September, [facility] [place] [facility] [address] [id number] [place] [address]- 6487 Aug, [facility] [place] [facility] [address] [id number] [place] [address]- 9800 Aug, [facility] [place] [facility] [address] [id number] [place] [address]- 6786 Aug, [facility] [place] [facility] [address] [id number] [place] [address]- 6899 Aug, [facility] [place] [facility] [address] [id number] [place] [address]- 6306 Aug, [facility] [place] [facility] [address] [id number] [place] [address]- 8156 Jul, [facility] [place] [facility] [address] [id number] [place] [address]- 9886 Jul, [facility] [place] [facility] [address] [id number] [place] [address]- 5319 Jul, [facility] [place] [facility] [address] [id number] [place] [address]- 1645 29 Jun, 2011 [facility] [place] [facility] [address] [id number] [place] [address]- 5566 17 Jun, 2011 [facility] [place] [facility] [address] [id number] [place] [address]- 9599 Jun, [facility] [place] [facility] [address] [id number] [place] [address]- 4322 Jun, [facility] [place] [facility] [address] [id number] [place] [address]- 2606 Jun, [facility] [place] [facility] [address] [facility] [id number] [place] [address]- 4600 Jun, [facility] [place] [facility] [address] [id number] [place] [address]- 9192 Jun, [facility] [place] [facility] [address] [id number] [place] [address]- 4548 May, [facility] [place] [facility] [address] [id number] [place] [address]- 1056 May, [facility] [place] [facility] [address] [id number] [place] [address]- 7714 May, [facility] [place] [facility] [address] [id number] [place] [address]- 2417 12 May, 2011 [facility] [address] [id number] [place] [address]- 8512 27 Apr, 2011 [facility] [place] [facility] [address] [id number] [place] [address]- 8786 13 Apr, 2011 [facility] [address] [id number] [place] [address]- 9836 Mar, [facility] [place] [facility] [address] [id number] [place] [address]- 3537 Mar, [facility] [address] [id number] [place] [address]- 5661 Mar, [facility] [place] [facility] [address] [id number] [place] [address]- 2315 Nov, [facility] [address] [id number] [place] [address]- 1945 May, [facility] [place] [facility] [address] [id number] [place] [address]- 8720 Apr, [facility] [place] [facility] [address] [id number] [place] [address]- 6293 Apr, [facility] [place] [facility] [address] [id number] [place] [address]- 1067 Apr, [facility] [place] [facility] [address] [id number] [place] [address]- 0642 Apr, [facility] [place] [facility] [address] [id number] [place] [address]- 7510 Apr, [facility] [place] [facility] [address] [id number] [place] [address]- 9106 18 Mar, 2010 [facility] [place] [facility] [address] [id number] [place] [address]- 7935 Mar, [facility] [place] [facility] [address] [id number] [place] [address]- 0152 Feb, [facility] [place] [facility] [address] [id number] [address]- 2546 Aug, [facility] [id number], [place] [address]- 8906 Jul, [facility] [id number], [place] [address]- 2546 Jun, [facility] [id number], [place] [address]- 2546 Apr, [facility] [id number], [place] [address]- 2546 Apr, [facility] [id number], [place] [address]- 2546 Mar, [facility] [id number], [place] [address]- 2546 Mar, [facility] [id number], [place] [address]- 2546 Feb, [facility] [id number], [place] [address]- 9562 Dec, [facility] [address] [id number], [place] [address]- 1626 Oct, IMMUNIZATIONS No Known Immunizations SOCIAL HISTORY Never Assessed REASON FOR VISIT EMR-[facility] PLAN OF CARE VITAL SIGNS MEDICATIONS Unknown [...] Hospitalization History surgery 2013 Hospitalization History A Fib--[facility] 03/08/2016 Hospitalization History acute chest pain, hypertensive urgency, paroxsysmal htn-[facility] 05/10/16
--- OUTSIDE RECORDS SUMMARY | 2018-09-17 11:33 | XMS REPORT ---
Author Author Migration, Doctor Organization [facility] Address Unknown Phone Unavailable Care Team Providers Care Cushion Mat Maker Name Role Phone Migration, Doctor Unavailable Unavailable PROBLEMS Type Condition ICD9-CM Code [id number] Code Onset Dates Condition Status SNOMED Code Problem Generalized anxiety disorder F41.1 Active 376683369 Problem Primary insomnia F51.01 Active 700526877 Problem Chronic migraine G43.709 Active 22656493 Problem Mild intermittent asthma without complication J45.20 Active 881741682 Problem Idiopathic peripheral neuropathy G60.9 Active 51794375 Problem Hidradenitis L73.2 Active 57324408 Problem Obstructive sleep apnea G47.33 Active 85656262 Problem Elevated alkaline phosphatase level R74.8 Active 293119690 Problem Vitamin D deficiency E55.9 Active 58379916 Problem Hyponatremia E87.1 Active 27008913 Problem Chronic frontal sinusitis J32.1 Active 96722943 Problem Secondary pulmonary arterial hypertension I27.21 Active 58978033 Problem Hyperlipidemia E78.5 Active 35071948 Problem BMI 40.0-44.9, adult Z68.41 Active 845685595 Problem Essential hypertension I10 Active 21922437 Problem Seasonal allergies J30.2 Active 379134625 Problem Paroxysmal atrial fibrillation I48.0 Active 041584789 Problem Other chronic gastritis without hemorrhage K29.50 Active 3336499 Problem Depression, unspecified depression type F32.9 Active 63699986 Problem Fasciculations of muscle R25.3 Active 36263554 ALLERGIES No Information ENCOUNTERS Encounter Location Date Diagnosis [facility] [address] [facility] [id number] [address] Aug, [facility] [id number] [address] 1744 Jul, Essential hypertension I10 [facility] [id number] [address] 6889 Jul, Essential hypertension I10 [facility] [id number] [address] 1030 Jul, [facility] [id number] [place] [address] 58206- 1454 Jun, [facility] [id number] [place] [address] 40197- 9961 May, Essential hypertension I10 [facility] [address] 30138- 3568 May, Essential hypertension I10 [facility] [id number] [place] [address] 30160- 0617 Apr, Essential hypertension I10 ; Intertrigo L30.4 ; Mild intermittent asthma without complication J45.20 and BMI 40.0-44.9, adult Z68.41 [facility] [id number] [place] [address] 78941- 3347 Apr, Essential hypertension I10 [facility] [id number] [place] [address] 94960- 4993 Mar, [facility] [id number] [place] [address] 15735- 4411 Mar, [facility] [id number] [place] [address] 05023- 9876 Feb, Essential hypertension I10 [facility] [id number] [place] [address] 68579- 4610 Feb, Intertrigo L30.4 and Encounter for immunization Z23 [facility] [id number] [place] [address] 39307- 9685 Feb, [facility] [address] 02815- 6582 Jan, Essential hypertension I10 [facility] [id number] [place] [address] 62127- 1634 Jan, [facility] [id number] [place] [address] 74708- 6910 Jan, Screening for cervical cancer Z12.4 ; BMI 40.0-44.9, adult Z68.41 ; Screening for breast cancer Z12.31 ; Candidal intertrigo B37.2 and Elevated glucose level R73.09 [place] [address] [address] 1775 Jan, Essential hypertension I10 [facility] [facility] [id number] [place] [address] 02546- 5066 Dec, [place] [id number] [place] [address] 01172- 2770 Dec, [place] [id number] [place] [address] 67769- 3903 Dec, Essential hypertension I10 [place] [id number] [place] [address] 29972- 0380 Nov, Essential hypertension I10 [place] [id number] [place] [address] 50384- 2256 Nov, [place] [id number] [place] [address] 96114- 8241 Nov, Essential hypertension I10 and BMI 40.0-44.9, adult Z68.41 [place] [address] [address]- 7342 Oct, Essential hypertension I10 and Chronic kidney disease, unspecified CKD stage N18.9 [place] [id number] [address]- 9310 Oct, Essential hypertension I10 and Chronic kidney disease, unspecified CKD stage N18.9 [place] [id number] [place] [address] 75971- 6680 Oct, [place] [address] [address]- 2684 September, Medicare annual wellness visit, initial Z00.00 ; Mild intermittent asthma without complication J45.20 ; Generalized anxiety disorder F41.1 ; Depression, unspecified depression type F32.9 ; Paroxysmal atrial fibrillation I48.0 ; Obstructive sleep apnea G47.33 ; Hyponatremia E87.1 ; Need for hepatitis C screening test Z11.59 ; Encounter for immunization Z23 ; Secondary pulmonary arterial hypertension I27.21 and BMI 40.0-44.9, adult Z68.41 [facility] [address] 95137- 7916 30 Aug, 2017 Essential hypertension I10 [facility] [address] 08066 -6909 Jun, Dysuria R30.0 ; UTI symptoms R39.9 and Candidiasis of breast B37.89 [facility] [address] 96516- 8622 Jun, Hyponatremia E87.1 [facility] [address] 06081- 1889 Jun, Hyponatremia E87.1 [facility] [address] 81757- 7387 Jun, Hyponatremia E87.1 [facility] [address] 30314- 7755 Jun, [facility] [address] 13998- 4590 May, Hyponatremia E87.1 [facility] [address] 71653- 0490 May, Hyponatremia E87.1 [facility] [address] 12664- 0248 May, Hyponatremia E87.1 [facility] [address] 84161- 1854 May, Hyponatremia E87.1 [facility] [address] 32915- 6233 Apr, Hyponatremia E87.1 ; Fasciculations of muscle R25.3 and Hyperlipidemia E78.5 [facility] [id number] [place] [address] 74974- 4162 Apr, Cough R05 ; Hyponatremia E87.1 ; Fasciculations of muscle R25.3 ; Primary insomnia F51.01 ; Essential hypertension I10 ; Hyperlipidemia E78.5 ; Screening for breast cancer Z12.31 and BMI 40.0-44.9, adult Z68.41 [facility] [id number] [place] [address] 48918- 1491 Apr, Essential hypertension I10 [facility] [id number] [place] [address] 86309- 3504 Mar, [facility] [id number] [place] [address] 88011- 0538 Mar, [facility] [id number] [place] [address] 71943- 2188 Mar, [facility] [id number] [place] [address] 65924- 9981 Feb, [facility] [id number] [place] [address] 38901- 5601 Jan, [facility] [id number] [place] [address] 79715- 4462 Dec, Essential hypertension I10 [facility] [id number] [place] [address] 36014- 1530 Dec, [facility] [id number] [place] [address] 67896- 3610 Dec, Essential hypertension I10 [facility] [id number] [place] [address] 023514- 4456 Nov, [facility] [id number] [place] [address] 18166- 0471 Oct, Essential hypertension I10 [facility] [id number] [place] [address] 44644- 3513 Oct, Essential hypertension I10 [place] [id number] [place] [address] 51624- 6192 Oct, [facility] [id number] [place] [address] 87446- 0301 September, [place] [id number] [place] [address] 52111- 5217 September, Essential hypertension I10 [place] [address] 10988- 2610 September, [place] [address] 40453- 9008 September, Essential hypertension I10 ; Hyperlipidemia E78.5 and Hyponatremia E87.1 [place] [id number] [place] [address] 11260- 6984 September, Mild intermittent asthma without complication J45.20 ; Essential hypertension I10 ; Hyperlipidemia E78.5 ; Hyponatremia E87.1 and Dysuria R30.0 [place] [id number] [place] [address] 26222- 6402 September, Other chronic gastritis without hemorrhage K29.50 ; Paroxysmal atrial fibrillation I48.0 and Essential hypertension I10 [place] [id number] [place] [address] 30069- 7249 Aug, [facility] [id number] [place] [address] 95501- 5625 14 Jul, 2016 [facility] [id number] [place] [address] 18211- 4552 14 Jun, 2016 [facility] [id number] [place] [address] 95911 -2866 07 Jun, 2016 Dysuria R30.0 and Acute cystitis with hematuria N30.01 [facility] [id number] [place] [address] 63656- 1067 Jun, Essential hypertension I10 [facility] [id number] [place] [address] 33415- 0351 May, Paroxysmal atrial fibrillation I48.0 [facility] [id number] [place] [address] 83261- 5258 May, Other chronic gastritis without hemorrhage K29.50 [facility] [address] 79031- 3089 May, [facility] [id number] [place] [address] 56857- 3386 May, Hyponatremia E87.1 ; Essential hypertension I10 and Other chronic gastritis without hemorrhage K29.50 [facility] [id number] [place] [address] 03182- 8710 May, Hyponatremia E87.1 [facility] [address] 35045- 1392 May, Hyponatremia E87.1 [facility] [address] [id number] May, [facility] [id number] [place] [address] 34888- 7534 Apr, [facility] [id number] [place] [address] 20211- 7323 Apr, [facility] [id number] [place] [address] 33973- 4927 Mar, Essential hypertension I10 and Candidal intertrigo B37.2 [facility] [id number] [place] [address] 41829- 7390 Mar, Hyponatremia E87.1 [facility] [id number] [place] [address] 70272- 7967 14 Mar, 2016 [facility] [id number] [place] [address] 70295- 1350 Mar, Hyponatremia E87.1 [facility] [id number] [place] [address] 03345- 5296 09 Mar, 2016 Essential hypertension I10 ; Hyponatremia E87.1 ; Slurred speech R47.81 ; Paroxysmal atrial fibrillation I48.0 and Elevated blood sugar R73.9 [facility] [id number] [place] [address] 73733- 6810 Mar, [facility] [address] 73528- 7984 Mar, [facility] [address] 98570- 4854 Feb, [place] [address] 28627- 5682 Jan, [facility] [address] 53494- 1610 Dec, [facility] [address] 79006 -8072 Nov, Scratched by cat, initial encounter W55.03XA and Other injury of unspecified body region T14.8 [place] [address] 05270- 5255 Nov, [facility] [id number] [place] [address] 88145- 7381 Oct, [place] [address] 27897- 9174 September, [facility] [address] 09254- 9466 Aug, Elevated alkaline phosphatase level R74.8 [place] [address] 94925- 4220 Jul, [facility] [id number] [place] [address] 99047- 2423 Jun, Essential hypertension I10 and Bright red blood per rectum K62.5 [place] [id number] [place] [address] 02417- 1266 11 Jun, 2015 Elevated alkaline phosphatase level R74.8 [place] [address] 18127- 0485 10 Jun, 2015 [place] [address] 87977- 3336 May, Essential hypertension I10 ; Hyperlipidemia E78.5 and Well woman exam (no gynecological exam) Z00.00 [place] [id number] [place] [address] 71218- 0866 May, [place] [address] 51248- 7000 May, [place] [address] 51669- 7217 Mar, [place] [address] 09259- 0691 Mar, [place] [id number] [place] [address] 31040- 2890 Mar, [place] [id number] [place] [address] 87043- 4046 Feb, Acute recurrent maxillary sinusitis J01.01 ; Asthma, unspecified, unspecified status 493.90 ; Seasonal allergies J30.2 and Cat allergies J30.81 [place] [id number] [place] [address] 98040- 5322 13 Feb, 2015 Upper respiratory tract infection, unspecified upper respiratory infection J06.9 [place] [id number] [place] [address] 71063- 2910 Jan, [place] [address] 92960- 4633 02 Jan, 2015 Dysphagia 787.20 and GERD (gastroesophageal reflux disease) 530.81 [place] [address] 40838- 8476 Jan, Breast lesion 611.9 [facility] [address] [place] [address] 15362- 7696 Dec, Breast lesion 611.9 [facility] [address] [place] [address] 16853- 2916 Dec, Breast lesion 611.9 [facility] [id number] [place] [address] 31700- 0296 Nov, Fatigue 780.79 and Hyperlipidemia 272.4 [facility] [id number] [place] [address] 84229- 6701 Nov, Hypertension 401.9 ; Hyperlipidemia 272.4 ; Chronic frontal sinusitis 473.1 and Fatigue 780.79 [facility] [id number] [place] [address] 35225- 6484 Nov, [facility] [id number] [place] [address] 28514- 8466 Oct, [facility] [address] [place] [address] 56828- 0511 Oct, [facility] [id number] [place] [address] 58956- 3746 September, [facility] [address] [address]- 2656 September, [facility] [address] [address]- 2546 September, [facility] [address] [address]- 2546 September, [facility] [id number] [place] [address] 97254- 7756 Aug, [facility] [address] [address]- 6176 Aug, [facility] [address] [place] [address] 95235- 5005 13 Aug, 2014 [facility] [place] [facility] [address] [id number] [place] [address]- 7572 20 Jul, 2014 [facility] [place] [facility] [address] [id number] [place] [address]- 6419 20 Jul, 2014 [facility] [place] [facility] [address] [id number] [place] [address]- 5939 19 Jul, 2014 [facility] [place] [facility] [address] [id number] [place] [address]- 4496 19 Jul, 2014 [facility] [place] [facility] [address] [id number] [place] [address]- 6234 18 Jul, 2014 [facility] [place] [facility] [address] [id number] [place] [address]- 3915 17 Jul, 2014 [facility] [place] [facility] [address] [id number] [place] [address]- 3345 17 Jul, 2014 [facility] [place] [facility] [address] [id number] [place] [address]- 2640 16 Jul, 2014 [facility] [place] [facility] [address] [id number] [place] [address]- 9473 16 Jul, 2014 [facility] [place] [facility] [address] [id number] [place] [address]- 1209 12 Jul, 2014 [facility] [place] [facility] [address] [id number] [place] [address]- 4848 12 Jul, 2014 [facility] [place] [facility] [address] [id number] [address]- 8946 09 Jul, 2014 [facility] [place] [facility] [address] [id number] [place] [address]- 2670 Jul, [facility] [place] [facility] [address] [id number] [place] [address]- 5641 04 Jul, 2014 [facility] [place] [facility] [address] [id number] [place] [address]- 5825 04 Jul, 2014 [facility] [place] [facility] [address] [id number] [place] [address]- 6169 Jun, 2014 [facility] [address] [id number] [place] [address]- 6146 Jun, 2014 [facility] [place] [facility] [address] [id number] [place] [address]- 0356 Jun, 2014 [facility] [address] [id number] [place] [address]- 9516 Jun, 2014 [facility] [place] [facility] [address] [id number] [place] [address]- 1661 May, [facility] [place] [facility] [address] [id number] [place] [address]- 6601 May, [facility] [place] [facility] [address] [id number] [place] [address]- 0458 May, [facility] [place] [facility] [address] [id number] [place] [address]- 0426 May, [facility] [address] [id number] [place] [address]- 6158 Apr, [facility] [place] [facility] [address] [id number] [place] [address]- 3897 Apr, [facility] [place] [facility] [address] [id number] [place] [address]- 3265 Apr, [facility] [place] [facility] [address] [id number] [place] [address]- 0639 Apr, [facility] [place] [facility] [address] [id number] [place] [address]- 2533 Apr, [facility] [place] [facility] [address] [id number] [place] [address]- 8501 Apr, [facility] [place] [facility] [address] [id number] [place] [address]- 3972 Mar, [facility] [place] [facility] [address] [id number] [place] [address]- 7474 Mar, [facility] [place] [facility] [address] [id number] [place] [address]- 2494 Mar, [facility] [place] [facility] [address] [id number] [place] [address]- 2591 Mar, [facility] [place] [facility] [address] [id number] [place] [address]- 9599 Mar, [facility] [place] [facility] [address] [id number] [place] [address]- 0632 Mar, [facility] [place] [facility] [address] [id number] [place] [address]- 7549 Mar, [facility] [place] [facility] [address] [id number] [place] [address]- 4971 Mar, [facility] [place] [facility] [address] [id number] [place] [address]- 6364 Mar, [facility] [place] [facility] [address] [id number] [place] [address]- 5712 Mar, [facility] [place] [facility] [address] [id number] [place] [address]- 4633 Mar, [facility] [place] [facility] [address] [id number] [place] [address]- 0260 Mar, [facility] [place] [facility] [address] [id number] [place] [address]- 7425 Mar, [facility] [place] [facility] [address] [id number] [place] [address]- 7524 Mar, [facility] [place] [facility] [address] [id number] [place] [address]- 3121 Mar, [facility] [place] [facility] [address] [id number] [place] [address]- 8416 Mar, [facility] [place] [facility] [address] [id number] [place] [address]- 0074 Mar, [facility] [place] [facility] [address] [id number] [place] [address] 30 Feb, 2013 [facility] [place] [facility] [address] [id number] [place] [address] 30 Feb, 2013 [facility] [place] [facility] [address] [id number] [place] [address] 30 Feb, 2013 [facility] [place] [facility] [address] [id number] [place] [address] 30 Feb, 2013 [facility] [place] [facility] [address] [id number] [place] [address] 29 Feb, 2013 [facility] [place] [facility] [address] [id number] [place] [address] 29 Feb, 2013 [facility] [place] [facility] [address] [id number] [place] [address] Feb, 2013 [facility] [place] [facility] [address] [id number] [place] [address] Feb, 2013 [facility] [place] [facility] [address] [id number] [place] [address] 28 Feb, 2013 [facility] [place] [facility] [address] [id number] [place] [address] 28 Feb, 2013 [facility] [place] [facility] [address] [id number] [place] [address] 16 Feb, 2013 [facility] [place] [facility] [address] [id number] [place] [address] 16 Feb, 2013 [facility] [place] [facility] [address] [id number] [place] [address] 15 Feb, 2013 [facility] [place] [facility] [address] [id number] [place] [address] 15 Feb, 2013 [facility] [place] [facility] [address] [id number] [place] [address] 08 Feb, 2013 [facility] [place] [facility] [address] [id number] [place] [address] 08 Feb, 2013 [facility] [place] [facility] [address] [id number] [place] [address] Feb, [facility] [place] [facility] [address] [id number] [place] [address] Feb, [facility] [place] [facility] [address] [id number] [place] [address] Feb, [facility] [place] [facility] [address] [id number] [place] [address] 30 Jan, 2013 [facility] [place] [facility] [address] [id number] [place] [address] 30 Jan, 2013 [facility] [place] [facility] [address] [id number] [place] [address] 29 Jan, 2013 [facility] [place] [facility] [address] [id number] [place] [address] 29 Jan, 2013 [facility] [place] [facility] [address] [id number] [place] [address] 24 Jan, 2013 [facility] [place] [facility] [address] [id number] [place] [address] 24 Jan, 2013 [facility] [place] [facility] [address] [id number] [place] [address] 10 Jan, 2014 [facility] [place] [facility] [address] [id number] [place] [address] 08 Jan, 2014 [facility] [place] [facility] [address] [id number] [place] [address] 08 Jan, 2014 [facility] [place] [facility] [address] [id number] [place] [address] Dec, [facility] [place] [facility] [address] [id number] [place] [address] Dec, [facility] [place] [facility] [address] [id number] [place] [address] Dec, [facility] [place] [facility] [address] [id number] [place] [address] Dec, [facility] [place] [facility] [address] [id number] [place] [address] Dec, [facility] [facility] [address] [id number] [place] [address] Dec, [facility] [place] [facility] [address] [id number] [place] [address] 1793 Dec, [facility] [place] [facility] [address] [id number] [place] [address] 1457 Dec, [facility] [place] [facility] [address] [id number] [place] [address] 9529 Dec, [facility] [place] [facility] [address] [id number] [place] [address] 0294 Nov, [facility] [place] [facility] [address] [id number] [place] [address] 6560 Nov, [facility] [place] [facility] [address] [id number] [place] [address] 7154 Nov, [facility] [place] [facility] [address] [id number] [place] [address]- 4696 Nov, [facility] [place] [facility] [address] [id number] [place] [address]- 3220 Nov, [facility] [place] [facility] [address] [id number] [place] [address]- 5233 Nov, [facility] [place] [facility] [address] [id number] [place] [address] 2302 Oct, [facility] [place] [facility] [address] [id number] [place] [address]- 0758 Oct, [facility] [place] [facility] [address] [id number] [place] [address] 1867 Oct, [facility] [place] [address] [id number] [place] [address]- 8362 Oct, [facility] [place] [address] [id number] [place] [address]- 2936 Oct, [facility] [address] [id number] [place] [address]- 6680 Oct, [facility] [address] [id number] [place] [address]- 3759 Oct, [facility] [place] [facility] [address] [id number] [place] [address]- 3905 Oct, [facility] [place] [facility] [address] [id number] [place] [address]- 2544 Oct, [facility] [address] [id number] [place] [address]- 9387 Oct, [facility] [address] [id number] [place] [address]- 0574 Oct, [facility] [address] [id number] [place] [address]- 0694 Oct, [facility] [address] [id number] [place] [address]- 8949 Oct, [facility] [address] [id number] [place] [address]- 9369 Oct, [facility] [address] [id number] [place] [address]- 8240 September, [facility] [address] [id number] [place] [address]- 9404 September, [facility] [address] [id number] [place] [address]- 7553 September, [facility] [address] [id number] [place] [address]- 1386 September, [facility] [address] [id number] [place] [address]- 6312 September, [facility] [address] [id number] [place] [address]- 1358 September, [facility] [address] [id number] [place] [address]- 1159 September, [facility] [address] [id number] [place] [address] September, [facility] [address] [id number] [place] [address]- 5634 September, [facility] [address] [id number] [place] [address]- 2741 September, [facility] [address] [id number] [place] [address]- 8916 September, [facility] [address] [id number] [place] [address]- 7328 September, [facility] [address] [id number] [place] [address]- 6799 September, [facility] [address] [id number] [place] [address]- 3504 September, [facility] [address] [id number] [place] [address]- 0778 September, [facility] [address] [id number] [place] [address]- 3919 September, [facility] [address] [id number] [place] [address]- 3129 September, [facility] [address] [id number] [place] [address]- 4088 September, [facility] [address] [id number] [place] [address]- 9162 September, [facility] [address] [id number] [place] [address]- 3090 Aug, [facility] [address] [id number] [place] [address]- 3657 Aug, [facility] [address] [id number] [place] [address]- 4879 31 Jul, 2013 [facility] [address] [id number] [place] [address]- 6376 31 Jul, 2013 [facility] [address] [id number] [place] [address]- 4453 28 Jul, 2013 [facility] [address] [id number] [place] [address]- 0823 Jul, [facility] [address] [id number] [place] [address]- 3737 Jul, [facility] [address] [id number] [place] [address]- 1769 Jul, [facility] [address] [id number] [place] [address]- 9159 Jul, [facility] [address] [id number] [place] [address]- 6713 Jul, [facility] [address] [id number] [place] [address]- 7985 Jul, [facility] [address] [id number] [place] [address]- 8891 Jul, [facility] [address] [id number] [place] [address]- 5732 Jul, [facility] [address] [id number] [place] [address]- 7634 Jul, [facility] [address] [id number] [place] [address]- 3250 Jul, [facility] [address] [id number] [place] [address]- 8110 Jul, [facility] [address] [id number] [place] [address]- 0228 10 Jun, 2013 [facility] [address] [id number] [place] [address]- 3649 Jun, [facility] [address] [id number] [place] [address]- 3262 10 Jun, 2013 [facility] [address] [id number] [place] [address]- 4278 Jun, [facility] [address] [id number] [place] [address]- 7991 May, [facility] [address] [id number] [place] [address]- 5448 May, [facility] [address] [id number] [place] [address]- 3025 May, [facility] [address] [id number] [place] [address]- 6987 May, [facility] [address] [id number] [place] [address]- 4219 May, [facility] [address] [id number] [place] [address]- 9690 Mar, [facility] [address] [id number] [place] [address]- 5077 Mar, [facility] [address] [id number] [place] [address]- 6744 Mar, [facility] [address] [id number] [place] [address]- 3881 Mar, [facility] [address] [id number] [place] [address]- 2577 Mar, [facility] [address] [id number] [place] [address]- 1736 Mar, [facility] [address] [id number] [place] [address]- 0213 Feb, [facility] [address] [id number] [place] [address]- 7651 Feb, [facility] [address] [id number] [place] [address]- 9455 Feb, [facility] [address] [id number] [place] [address]- 8195 Feb, [facility] [address] [id number] [place] [address]- 4364 Feb, [facility] [address] [id number] [place] [address]- 1517 Feb, [facility] [address] [id number] [place] [address]- 9753 Feb, [facility] [address] [id number] [place] [address]- 7351 Feb, [facility] [address] [id number] [place] [address]- 5690 Feb, [facility] [address] [id number] [place] [address]- 8074 Feb, [facility] [address] [id number] [place] [address]- 4431 Feb, [facility] [address] [id number] [place] [address]- 7176 Feb, [facility] [address] [id number] [place] [address]- 6306 Jan, [facility] [address] [id number] [place] [address] 2543 Jan, [facility] [address] [id number] [place] [address] 2541 Dec, [facility] [address] [id number] [place] [address]- 2542 Dec, [facility] [address] [id number] [place] [address]- 2540 Nov, [facility] [address] [id number] [place] [address]- 2547 Nov, [facility] [address] [id number] [place] [address]- 6277 Nov, [facility] [address] [id number] [place] [address]- 2868 Nov, [facility] [address] [id number] [place] [address] 2546 Nov, [facility] [address] [id number] [place] [address]- 3773 Oct, [facility] [address] [id number] [place] [address]- 2546 September, [facility] [address] [id number] [place] [address]- 1324 Aug, [facility] [address] [id number] [place] [address]- 2846 Jul, [facility] [address] [id number] [place] [address]- 4164 Jul, [facility] [address] [id number] [place] [address]- 7117 Jul, [facility] [address] [id number] [place] [address]- 1548 28 Jun, 2012 [facility] [address] [id number] [place] [address]- 2415 14 Jun, 2012 [facility] [address] [id number] [place] [address] 2546 Jun, [facility] [address] [id number] [place] [address]- 2543 Jun, [facility] [address] [id number] [place] [address]- 2546 Jun, [facility] [address] [id number] [place] [address]- 2546 May, [facility] [address] [id number] [place] [address]- 5383 May, [facility] [address] [id number] [place] [address]- 4908 Apr, [facility] [address] [id number] [place] [address]- 0584 Apr, [facility] [address] [id number] [place] [address]- 3053 Mar, [facility] [address] [id number] [place] [address]- 1004 Mar, [facility] [address] [id number] [place] [address]- 2003 Mar, [facility] [address] [id number] [place] [address]- 8165 Mar, [facility] [address] [facility] [id number] [place] [address]- 2245 Mar, [facility] [address] [id number] [place] [address]- 2330 Mar, [facility] [address] [id number] [place] [address]- 1245 Mar, [facility] [address] [facility] [id number] [place] [address]- 5254 Mar, [facility] [address] [id number] [place] [address]- 0930 Mar, [facility] [address] [id number] [place] [address]- 7903 Mar, [facility] [address] [id number] [place] [address]- 2901 Feb, [facility] [address] [id number] [place] [address]- 7807 Feb, [facility] [address] [facility] [id number] [place] [address]- 5168 Feb, [facility] [address] [id number] [place] [address]- 8235 30 Feb, 2012 [facility] [address] [id number] [place] [address]- 8266 Feb, [facility] [address] [id number] [place] [address]- 2246 Feb, [facility] [address] [id number] [place] [address] 2546 Jan, [facility] [address] [id number] [place] [address] 2542 Jan, [facility] [address] [id number] [place] [address]- 0057 Dec, [facility] [address] [id number] [place] [address]- 3381 Dec, [facility] [address] [id number] [place] [address]- 4400 Dec, [facility] [address] [id number] [place] [address]- 7487 Nov, [facility] [address] [id number] [place] [address]- 8677 September, [facility] [address] [id number] [place] [address]- 0486 September, [facility] [address] [id number] [place] [address]- 6747 September, [facility] [address] [id number] [place] [address]- 7527 September, [facility] [facility] [address] [id number] [place] [address]- 9912 Aug, [facility] [facility] [address] [id number] [place] [address]- 1368 Aug, [facility] [address] [id number] [place] [address]- 4238 Aug, [facility] [place] [facility] [address] [id number] [place] [address]- 1070 Aug, [facility] [place] [facility] [address] [id number] [place] [address]- 0326 Aug, [facility] [facility] [address] [id number] [place] [address]- 2976 Jul, [facility] [place] [facility] [address] [id number] [place] [address]- 9356 Jul, [facility] [place] [facility] [address] [id number] [place] [address]- 3229 Jul, [facility] [place] [facility] [address] [id number] [place] [address]- 9078 29 Jun, 2011 [facility] [place] [facility] [address] [id number] [place] [address]- 4276 17 Jun, 2011 [facility] [place] [facility] [address] [id number] [place] [address]- 6884 Jun, [facility] [place] [facility] [address] [id number] [place] [address]- 9263 Jun, [facility] [place] [facility] [address] [id number] [place] [address]- 1176 Jun, [facility] [place] [facility] [address] [facility] [id number] [place] [address]- 2000 Jun, [facility] [place] [facility] [address] [id number] [place] [address]- 9843 Jun, [facility] [place] [facility] [address] [id number] [place] [address]- 6108 May, [facility] [place] [facility] [address] [id number] [place] [address]- 0026 May, [facility] [place] [facility] [address] [id number] [place] [address]- 1267 May, [facility] [place] [facility] [address] [id number] [place] [address]- 2085 12 May, 2011 [facility] [address] [id number] [place] [address]- 0459 27 Apr, 2011 [facility] [place] [facility] [address] [id number] [place] [address]- 0806 13 Apr, 2011 [facility] [address] [id number] [place] [address]- 0466 Mar, [facility] [place] [facility] [address] [id number] [place] [address]- 5523 Mar, [facility] [address] [id number] [place] [address]- 9633 Mar, [facility] [place] [facility] [address] [id number] [place] [address]- 1928 Nov, [facility] [address] [id number] [place] [address]- 6521 May, [facility] [place] [facility] [address] [id number] [place] [address]- 1898 Apr, [facility] [place] [facility] [address] [id number] [place] [address]- 7119 Apr, [facility] [place] [facility] [address] [id number] [place] [address]- 0338 Apr, [facility] [place] [facility] [address] [id number] [place] [address]- 2240 Apr, [facility] [place] [facility] [address] [id number] [place] [address]- 9990 Apr, [facility] [place] [facility] [address] [id number] [place] [address]- 7951 18 Mar, 2010 [facility] [place] [facility] [address] [id number] [place] [address]- 7739 Mar, [facility] [place] [facility] [address] [id number] [place] [address]- 1012 Feb, [facility] [place] [facility] [id number] [place] [address]- 2766 Aug, [facility] [id number] [place] [address]- 8316 Jul, [facility] [id number] [place] [address]- 1026 Jun, [facility] [id number] [place] [address]- 7043 Apr, [facility] [id number] [place] [address]- 4358 Apr, [facility] [id number] [place] [address]- 3882 Mar, [facility] [id number] [place] [address]- 4313 Mar, [facility] [id number] [place] [address]- 3222 Feb, [facility] [id number] [place] [address]- 7575 Dec, [facility] [id number] [place] [address]- 7445 Oct, IMMUNIZATIONS No Known Immunizations SOCIAL HISTORY Never Assessed REASON FOR VISIT EMR-[facility] PLAN OF CARE VITAL SIGNS MEDICATIONS Medication Instructions Dosage Frequency Start Date End Date Duration Status Omeprazole 20 mg take 1 capsule (20 mg) by oral route once daily before a meal Jan, Active Debrox 6.5 % 3 drop by Otic route 3 times per day for 4 day(s) Jun, Active Albuterol Sulfate 90 mcg/actuation inhale 2 puffs by inhalation route every 4 hours as needed Jul, Active Nitrofurantoin Macrocrystal 100 mg 1 capsule by Oral route 2 times per day for 7 day(s) Dec, Active propranolol 40 mg 1 tablet by Oral route 2 times per day for headache prevention Jun, Active Valtrex 1 gram take 1 tablet by Oral route every 8 hours for 10 days for shingles Nov, Active Doxycycline Hyclate 100 mg take 1 tablet (100 mg) by oral route 2 times per day for 7 days May, Active buspirone 5 mg take 2 tablets by Oral route 4 times per day Feb, Active Cefprozil 500 mg take 1 tablet (500 mg) by oral route every 24 hours for 10 days for 5 days September, Active Ambien 5 mg take 1 tablet by Oral route at bedtime 1 time per day Jul, Active Levaquin 750 mg take 1 tablet (750 mg) by oral route once daily for 7 days Oct, Active [place] 5-325 mg take 1 tablet by Oral route every 6 hours as needed for pain for 7 days PRN severe pain only Oct, Active Clindamycin Phosphate 1 % apply 1 Ollie a thin layer to the affected area(s) by Topical route 2 times per day May, Active Hydrochlorothiazide 12.5 mg 1 capsule by Oral route 1 time per day May, Active Metrogel 1 % apply 1 Ollie to the affected area(s) by Topical route ; rub in gently and completely 1 time per day Jul, Active Alprazolam 0.5 mg take 1 tablet by Oral route 2 times per day Jan, Active Bactrim DS 800-160 mg 1 tablet by Oral route 2 times per day for 10 day(s) May, Active Pristiq 50 mg 1 tablet by Oral route 1 time per day for 30 day(s) Jul, Active ProAir HFA 90 mcg/actuation 2 puffs by Inhalation route 4 times per day PRN needs to keep appointment 01-10-14 Dec, Active Pristiq 100 mg once daily Jan, Active RESULTS No Results PROCEDURES No Known procedures INSTRUCTIONS MEDICATIONS ADMINISTERED No Known Medications MEDICAL (GENERAL) HISTORY Type Description Date Medical History hypertension Medical History neuropathy Medical History depression Medical History anxiety Medical History Hyposmolality and/or hyponatremia Surgical History cleaned out left side of sinuses 2013 Surgical History colonscopy 09/03/15 Hospitalization History cellulitis 09/2013 Hospitalization History surgery 2013 Hospitalization History A Fib--[facility] 03/08/2016 Hospitalization History acute chest pain, hypertensive urgency, paroxsysmal htn-[facility] 05/10/16
--- OUTSIDE RECORDS SUMMARY | 2018-09-17 11:34 | XMS REPORT ---
Author Author JORDY DESIREE [facility] Address [address] [place] [address] Care Team Providers Care Core Blower Name Role Phone SANTIAGO SPENCEY Unavailable PROBLEMS Type Condition ICD9-CM Code KBH16-IZ Code Onset Dates Condition Status SNOMED Code Problem Vitamin D deficiency E55.9 Active 18763995 Problem Chronic frontal sinusitis J32.1 Active 16144261 Problem Hyponatremia E87.1 Active 40948262 Problem BMI 40.0-44.9, adult Z68.41 Active 869758370 Problem Seasonal allergies J30.2 Active 232278890 Problem Secondary pulmonary arterial hypertension I27.21 Active 03477721 Problem Other chronic gastritis without hemorrhage K29.50 Active 2683761 Problem Paroxysmal atrial fibrillation I48.0 Active 789809501 Problem Fasciculations of muscle R25.3 Active 64778183 Problem Depression, unspecified depression type F32.9 Active 56865177 Problem Mild intermittent asthma without complication J45.20 Active 974977247 Problem Chronic migraine G43.709 Active 94801852 Problem Primary insomnia F51.01 Active 940029428 Problem Generalized anxiety disorder F41.1 Active 345451962 Problem Elevated alkaline phosphatase level R74.8 Active 697170303 Problem Obstructive sleep apnea G47.33 Active 17483899 Problem Hidradenitis L73.2 Active 03584418 Problem Essential hypertension I10 Active 40614207 Problem Idiopathic peripheral neuropathy G60.9 Active 28830022 Problem Hyperlipidemia E78.5 Active 57769663 ALLERGIES Substance Reaction Event Type Date Status Amitriptyline HCl Unknown Drug Allergy Apr, Active ENCOUNTERS Encounter Location Date Diagnosis [facility] [address] [facility] [id number] [address] Apr, Essential hypertension I10 ; Intertrigo L30.4 ; Mild intermittent asthma without complication J45.20 and BMI 40.0-44.9, adult Z68.41 [facility] [address] [address] Apr, Essential hypertension I10 [facility] [id number] [place] [address] 20797- 9658 Mar, [facility] [id number] [place] [address] 11381- 1293 Mar, [facility] [id number] [place] [address] 14432- 2231 Feb, Essential hypertension I10 [facility] [id number] [place] [address] 50660- 7614 Feb, Intertrigo L30.4 and Encounter for immunization Z23 [facility] [id number] [place] [address] 60377- 8121 Feb, [facility] [id number] [place] [address] 49043- 8792 Jan, Essential hypertension I10 [facility] [id number] [place] [address] 42737- 1378 Jan, [facility] [id number] [place] [address] 50649- 0089 Jan, Screening for cervical cancer Z12.4 ; BMI 40.0-44.9, adult Z68.41 ; Screening for breast cancer Z12.31 ; Candidal intertrigo B37.2 and Elevated glucose level R73.09 [facility] [address] [address] 2295 Jan, Essential hypertension I10 [facility] [address] [address] 4[address] Dec, [facility] [id number] [place] [address] 48341- 1450 Dec, [facility] [address] [address] 8771 Dec, Essential hypertension I10 [place] [id number] [address] 6364 Nov, Essential hypertension I10 [place] [address] [address] 5[address] Nov, [place] [address] [address] 6[address] Nov, Essential hypertension I10 and BMI 40.0-44.9, adult Z68.41 [place] [id number] [place] [address] 60943- 4605 Oct, Essential hypertension I10 and Chronic kidney disease, unspecified CKD stage N18.9 [place] [id number] [place] [address] 43540- 5496 Oct, Essential hypertension I10 and Chronic kidney disease, unspecified CKD stage N18.9 [place] [id number] [place] [address] 52472- 7783 Oct, [place] [id number] [place] [address] 27395- 8066 September, Medicare annual wellness visit, initial Z00.00 ; Mild intermittent asthma without complication J45.20 ; Generalized anxiety disorder F41.1 ; Depression, unspecified depression type F32.9 ; Paroxysmal atrial fibrillation I48.0 ; Obstructive sleep apnea G47.33 ; Hyponatremia E87.1 ; Need for hepatitis C screening test Z11.59 ; Encounter for immunization Z23 ; Secondary pulmonary arterial hypertension I27.21 and BMI 40.0-44.9, adult Z68.41 [place] [address] [id number] [address] 0149 Aug, Essential hypertension I10 [facility] [address] [id number] [address] Jun, Dysuria R30.0 ; UTI symptoms R39.9 and Candidiasis of breast B37.[id number] [place] [address] 00706- 3098 Jun, Hyponatremia E87.1 [facility] [address] [address] 4290 Jun, Hyponatremia E87.1 [facility] [id number] [place] [address] 63356- 8144 Jun, Hyponatremia E87.1 [facility] [id number] [place] [address] 39355- 9711 Jun, [facility] [id number] [place] [address] 02008- 8813 May, Hyponatremia E87.1 [facility] [id number] [place] [address] 47449- 5237 May, Hyponatremia E87.1 [facility] [id number] [place] [address] 43123- 0003 May, Hyponatremia E87.1 [facility] [id number] [place] [address] 71635- 9017 May, Hyponatremia E87.1 [facility] [id number] [place] [address] 96443- 2334 Apr, Hyponatremia E87.1 ; Fasciculations of muscle R25.3 and Hyperlipidemia E78.5 [place] [id number] [place] [address] 95741- 9102 Apr, Cough R05 ; Hyponatremia E87.1 ; Fasciculations of muscle R25.3 ; Primary insomnia F51.01 ; Essential hypertension I10 ; Hyperlipidemia E78.5 ; Screening for breast cancer Z12.31 and BMI 40.0-44.9, adult Z68.41 [facility] [id number] [place] [address] 33562- 3520 Apr, Essential hypertension I10 [facility] [id number] [place] [address] 24654- 3458 Mar, [facility] [address] [facility] [id number] [address] 8973 Mar, [facility] [address] [address]- 8276 Mar, [facility] [id number] [place] [address]- 8627 Feb, [facility] [address], [place] [address]- 3836 Jan, [facility] [address] [facility] [id number] [place] [address]- 0396 Dec, Essential hypertension I10 [facility] [id number] [place] [address], [place] [address]- 3383 Dec, [facility] [address] [address]- 7101 Dec, Essential hypertension I10 [facility] [address] [address]- 6146 Nov, [facility] [address] [address]- 3363 Oct, Essential hypertension I10 [facility] [address], [place] [address]- 3906 Oct, Essential hypertension I10 [facility] [address], [place] [address]- 4876 Oct, [facility] [address], [place] [address]- 4028 September, [facility] [address] [facility] [id number] [address]- 2747 September, Essential hypertension I10 [facility] [id number] [address]- 2979 September, [facility] [id number] [address]- 4946 September, Essential hypertension I10 ; Hyperlipidemia E78.5 and Hyponatremia E87.1 [facility] [id number] [place] [address] 84534- 2912 September, Mild intermittent asthma without complication J45.20 ; Essential hypertension I10 ; Hyperlipidemia E78.5 ; Hyponatremia E87.1 and Dysuria R30.0 [facility] [id number] [place] [address] 94021- 7060 September, Other chronic gastritis without hemorrhage K29.50 ; Paroxysmal atrial fibrillation I48.0 and Essential hypertension I10 [place] [id number] [place] [address] 17208- 5842 Aug, [facility] [address] 45408- 8857 Jul, [place] [address] 69065- 6070 14 Jun, 2016 [facility] [address] 53296 -6160 07 Jun, 2016 Dysuria R30.0 and Acute cystitis with hematuria N30.01 [place] [id number] [place] [address] 40811- 2044 Jun, Essential hypertension I10 [place] [id number] [place] [address] 80199- 2305 May, Paroxysmal atrial fibrillation I48.0 [place] [id number] [place] [address] 22884- 4410 May, Other chronic gastritis without hemorrhage K29.50 [facility] [id number] [place] [address] 34521- 8905 May, [place] [id number] [place] [address] 45124- 6450 May, Hyponatremia E87.1 ; Essential hypertension I10 and Other chronic gastritis without hemorrhage K29.50 [place] [address] 56854- 2150 May, Hyponatremia E87.1 [facility] [id number] [place] [address] 36117- 3918 May, Hyponatremia E87.1 [facility] [id number] [place] [address] [id number] 06 May, 2016 [facility] [id number] [place] [address] 16297- 6218 16 Apr, 2016 [facility] [id number] [place] [address] 55224- 3828 Apr, [facility] [id number] [place] [address] 64272- 9060 29 Mar, 2016 Essential hypertension I10 and Candidal intertrigo B37.2 [facility] [id number] [place] [address] 52190- 9946 22 Mar, 2016 Hyponatremia E87.1 [facility] [id number] [place] [address] 16260- 8181 14 Mar, 2016 [facility] [id number] [place] [address] 29599- 8171 Mar, Hyponatremia E87.1 [facility] [id number] [place] [address] 26839- 6176 09 Mar, 2016 Essential hypertension I10 ; Hyponatremia E87.1 ; Slurred speech R47.81 ; Paroxysmal atrial fibrillation I48.0 and Elevated blood sugar R73.9 [facility] [id number] [place] [address] 95832- 4079 Mar, [facility] [id number] [place] [address] 68099- 5471 Mar, [facility] [id number] [place] [address] 55043- 3520 13 Feb, 2016 [facility] [id number] [place] [address] 89113- 6098 15 Jan, 2016 [facility] [address] [address]- 1078 Dec, [facility] [id number] [place] [address] 61444 -8747 Nov, Scratched by cat, initial encounter W55.03XA and Other injury of unspecified body region T14.8 [facility] [id number] [place] [address] 55021- 9111 Nov, [facility] [id number] [place] [address] 27519- 3963 Oct, [place] [id number] [place] [address] 36034- 3898 September, [facility] [id number] [place] [address] 23125- 5522 Aug, Elevated alkaline phosphatase level R74.8 [place] [id number] [place] [address] 81190- 2595 Jul, [facility] [id number] [place] [address] 36490- 5801 Jun, Essential hypertension I10 and Bright red blood per rectum K62.5 [place] [id number] [place] [address] 63378- 5040 11 Jun, 2015 Elevated alkaline phosphatase level R74.8 [place] [id number] [place] [address] 14993- 1402 Jun, [facility] [id number] [place] [address] 94795- 7513 May, Essential hypertension I10 ; Hyperlipidemia E78.5 and Well woman exam (no gynecological exam) Z00.00 [place] [id number] [place] [address] 44663- 4314 May, [place] [id number] [place] [address] 05995- 9643 May, [place] [id number] [place] [address] 56870- 4543 Mar, [place] [id number] [place] [address] 11260- 9631 Mar, [place] [id number] [place] [address] 46703- 0581 Mar, [place] [address] 53185- 6421 Feb, Acute recurrent maxillary sinusitis J01.01 ; Asthma, unspecified, unspecified status 493.90 ; Seasonal allergies J30.2 and Cat allergies J30.[address] 50618- 1851 Feb, Upper respiratory tract infection, unspecified upper respiratory infection J06.9 [place] [id number] [place] [address] 83008- 6783 Jan, [place] [id number] [place] [address] 99463- 5643 Jan, Dysphagia 787.20 and GERD (gastroesophageal reflux disease) 530.81 [place] [id number] [place] [address] 91899- 8267 Jan, Breast lesion 611.9 [place] [id number] [place] [address] 03229- 5178 Dec, Breast lesion 611.9 [place] [id number] [place] [address] 25903- 7174 Dec, Breast lesion 611.9 [place] [id number] [place] [address] 570767- 1094 Nov, Fatigue 780.79 and Hyperlipidemia 272.4 [place] [id number] [place] [address] 88875316- 3213 Nov, Hypertension 401.9 ; Hyperlipidemia 272.4 ; Chronic frontal sinusitis 473.1 and Fatigue 780.79 [place] [id number] [place] [address]- 2546 08 Nov, 2014 [facility] [address] [id number] [place] [address]- 5567 Oct, [facility] [place] [facility] [address] [id number] [place] [address]- 2546 Oct, [facility] [address] [id number] [place] [address]- 6696 September, [facility] [place] [facility] [address] [id number] [place] [address]- 8428 September, [facility] [address] [id number] [place] [address]- 9526 September, [facility] [address] [id number] [place] [address]- 8456 September, [facility] [address] [id number] [place] [address]- 0145 Aug, [facility] [address] [id number] [place] [address]- 6520 14 Aug, 2014 [facility] [place] [facility] [address] [id number] [place] [address]- 8843 Aug, [facility] [address] [id number] [place] [address]- 9776 Jul, [facility] [place] [facility] [address] [id number] [place] [address]- 1269 20 Jul, 2014 [facility] [place] [facility] [address] [id number] [place] [address]- 3560 19 Jul, 2014 [facility] [place] [facility] [address] [id number] [place] [address]- 4954 19 Jul, 2014 [facility] [place] [facility] [address] [id number] [place] [address]- 2546 18 Jul, 2014 [facility] [place] [facility] [address] [id number] [place] [address]- 2725 Jul, [facility] [place] [facility] [address] [id number] [place] [address]- 0011 17 Jul, 2014 [facility] [place] [facility] [address] [id number] [place] [address]- 8779 Jul, [facility] [place] [facility] [address] [id number] [place] [address]- 2102 Jul, [facility] [place] [facility] [address] [id number] [place] [address]- 4530 Jul, [facility] [place] [facility] [address] [id number] [place] [address]- 9273 Jul, [facility] [place] [facility] [address] [id number] [place] [address]- 6385 Jul, [facility] [place] [facility] [address] [id number] [place] [address]- 0121 Jul, [facility] [place] [facility] [address] [id number] [place] [address]- 5160 Jul, [facility] [place] [facility] [address] [id number] [place] [address]- 2721 Jul, [facility] [place] [facility] [address] [id number] [place] [address]- 9394 Jun, [facility] [place] [facility] [address] [id number] [place] [address]- 3347 Jun, 2014 [facility] [place] [facility] [address] [id number] [address]- 4801 Jun, [facility] [place] [facility] [address] [id number] [place] [address]- 6687 Jun, [facility] [place] [facility] [address] [id number] [place] [address]- 7231 May, [facility] [place] [facility] [address] [id number] [place] [address]- 6411 May, [facility] [place] [facility] [address] [id number] [place] [address]- 7333 13 May, 2014 [facility] [place] [facility] [address] [id number] [place] [address]- 0167 13 May, 2014 [facility] [place] [facility] [address] [id number] [place] [address]- 4909 18 Apr, 2014 [facility] [place] [facility] [address] [id number] [place] 3065 Apr, [facility] [place] [facility] [address] [id number] [place] [address]- 0649 Apr, [facility] [place] [facility] [address] [id number] [place] [address]- 3485 Apr, [facility] [place] [facility] [address] [id number] [place] [address]- 3843 Apr, [facility] [place] [facility] [address] [id number] [place] [address]- 3705 Apr, [facility] [place] [facility] [address] [id number] [place] [address]- 4643 Mar, [facility] [place] [facility] [address] [id number] [place] [address]- 4375 Mar, [facility] [place] [facility] [address] [id number] [place] [address]- 0141 Mar, [facility] [place] [facility] [address] [id number] [place] [address]- 5739 Mar, [facility] [place] [facility] [address] [id number] [place] [address]- 4249 Mar, [facility] [place] [facility] [address] [id number] [place] [address]- 1186 Mar, [facility] [place] [facility] [address] [id number] [place] [address]- 9581 Mar, [facility] [place] [facility] [address] [id number] [place] [address]- 1092 Mar, [facility] [place] [facility] [address] [id number] [place] [address]- 4775 Mar, [facility] [place] [facility] [address] [id number] [place] [address]- 5489 Mar, [facility] [place] [facility] [address] [id number] [place] [address]- 7138 Mar, [facility] [place] [facility] [address] [id number] [place] [address]- 7193 Mar, [facility] [place] [facility] [address] [id number] [place] [address]- 8125 Mar, [facility] [place] [facility] [address] [id number] [place] [address]- 6581 Mar, [facility] [place] [facility] [address] [id number] [place] [address]- 9551 Mar, [facility] [place] [facility] [address] [id number] [place] [address]- 6278 Mar, [facility] [place] [facility] [address] [id number] [place] [address]- 7763 Mar, [facility] [place] [facility] [address] [id number] [place] [address]- 0298 Feb, [facility] [place] [facility] [address] [id number] [place] [address]- 8924 Feb, [facility] [place] [facility] [address] [id number], [place] [address]- 0842 Feb, [facility] [place] [facility] [address] [id number] [place] [address]- 1780 Feb, [facility] [place] [facility] [address] [id number] [place] [address]- 7998 Feb, [facility] [place] [facility] [address] [id number] [place] [address]- 6444 Feb, [facility] [place] [facility] [address] [id number], [place] [address]- 8972 Feb, [facility] [place] [facility] [address] [id number] [place] [address]- 6177 Feb, [facility] [place] [facility] [address] [id number] [place] [address]- 7290 Feb, [facility] [place] [facility] [address] [id number] [place] [address]- 5967 Feb, [facility] [place] [facility] [address] [id number] [place] [address]- 1019 Feb, [facility] [place] [facility] [address] [id number] [place] [address]- 5223 Feb, [facility] [place] [facility] [address] [id number] [place] [address]- 0339 Feb, [facility] [place] [facility] [address] [id number] [place] [address]- 5260 Feb, [facility] [place] [facility] [address] [id number] [place] [address] Feb, [facility] [place] [facility] [address] [id number] [place] [address] Feb, [facility] [place] [facility] [address] [id number] [place] [address] Feb, [facility] [place] [facility] [address] [id number] [place] [address] Feb, [facility] [place] [facility] [address] [id number] [address] Feb, [facility] [place] [facility] [address] [id number] [place] [address] 30 Jan, 2014 [facility] [place] [facility] [address] [id number] [place] [address] 30 Jan, 2014 [facility] [place] [facility] [address] [id number] [place] [address] 29 Jan, 2014 [facility] [place] [facility] [address] [id number] [place] [address] 29 Jan, 2013 [facility] [place] [facility] [address] [id number] [place] [address] 24 Jan, 2014 [facility] [place] [facility] [address] [id number] [place] [address] 24 Jan, 2014 [facility] [place] [facility] [address] [id number] [place] [address] Jan, [facility] [place] [facility] [address] [id number] [place] [address] 08 Jan, 2014 [facility] [place] [facility] [address] [id number] [place] [address] Jan, [facility] [place] [facility] [address] [id number] [place] [address] Dec, [facility] [place] [facility] [address] [id number] [place] [address] Dec, [facility] [place] [facility] [address] [id number] [place] [address] Dec, [facility] [place] [facility] [address] [id number] [place] [address] Dec, [facility] [place] [facility] [address] [id number] [place] [address] Dec, [facility] [place] [facility] [address] [id number] [place] [address] Dec, [facility] [place] [facility] [address] [id number] [place] [address] Dec, [facility] [place] [facility] [address] [id number] [place] [address] Dec, [facility] [place] [facility] [address] [id number] [place] [address] Dec, [facility] [place] [facility] [address] [id number] [place] [address] Nov, [facility] [place] [facility] [address] [id number] [place] [address] Nov, [facility] [place] [facility] [address] [id number] [place] [address] Nov, [facility] [place] [facility] [address] [id number] [place] [address] Nov, [facility] [place] [facility] [address] [id number] [place] [address] Nov, [facility] [place] [facility] [address] [id number] [place] [address] Nov, [facility] [place] [facility] [address] [id number] [place] [address] Oct, [facility] [place] [facility] [address] [id number] [place] [address] Oct, [facility] [place] [facility] [address] [id number] [place] [address] Oct, [facility] [place] [facility] [address] [id number] [place] [address] Oct, [facility] [place] [facility] [address] [id number] [place] [address] 4[address] Oct, [facility] [place] [facility] [address] [id number] [place] [address] 3194 Oct, [facility] [place] [facility] [address] [id number] [place] [address]398 Oct, [facility] [place] [facility] [address] [id number] [place] [address] 5558 Oct, [facility] [place] [facility] [address] [id number] [place] [address] 4517 Oct, [facility] [place] [facility] [address] [id number] [place] [address]- 1484 Oct, [facility] [place] [facility] [address] [id number] [place] [address]- 6987 Oct, [facility] [place] [facility] [address] [id number] [place] [address] 7375 Oct, [facility] [place] [facility] [address] [id number] [place] [address] 3949 Oct, [facility] [place] [facility] [address] [id number] [place] [address]- 7775 Oct, [facility] [place] [facility] [address] [id number] [place] [address]- 8657 September, [facility] [place] [facility] [address] [id number] [place] [address]- 3007 September, [facility] [place] [facility] [address] [id number] [place] [address]- 9585 September, [facility] [place] [facility] [address] [id number] [place] [address]- 5825 September, [facility] [place] [facility] [address] [id number] [place] [address]- 6054 September, [facility] [place] [facility] [address] [id number] [place] [address]- 9319 September, [facility] [place] [facility] [address] [id number] [place] [address]- 0555 September, [facility] [place] [facility] [address] [id number] [place] [address]- 0467 September, [facility] [place] [facility] [address] [id number] [place] [address]- 0739 September, [facility] [place] [facility] [address] [id number] [place] [address]- 3060 September, [facility] [place] [facility] [address] [id number] [place] [address]- 6899 September, [facility] [place] [facility] [address] [id number] [place] [address]- 8517 September, [facility] [place] [facility] [address] [id number] [place] [address]- 7012 September, [facility] [place] [facility] [address] [id number] [place] [address]- 8544 September, [facility] [place] [facility] [address] [id number] [place] [address]- 0276 September, [facility] [place] [facility] [address] [id number] [place] [address]- 6560 September, [facility] [place] [facility] [address] [id number] [place] [address] 8974 September, [facility] [place] [facility] [address] [id number] [place] [address]- 3393 September, [facility] [place] [facility] [address] [id number] [place] [address]- 7903 September, [facility] [place] [facility] [address] [id number] [place] [address]- 8071 Aug, [facility] [place] [facility] [address] [id number] [place] [address]- 9220 Aug, [facility] [place] [facility] [address] [id number] [place] [address]- 7805 Jul, [facility] [place] [facility] [address] [id number] [place] [address]- 6806 31 Jul, 2013 [facility] [place] [facility] [address] [id number] [place] [address]- 0380 Jul, [facility] [place] [facility] [address] [id number] [place] [address]- 5521 Jul, [facility] [place] [facility] [address] [id number] [place] [address] 0149 Jul, [facility] [place] [facility] [address] [id number] [place] [address] Jul, [facility] [place] [facility] [address] [id number] [place] [address]- 0281 Jul, [facility] [place] [facility] [address] [id number] [place] [address]- 0814 Jul, [facility] [place] [facility] [address] [id number] [place] [address]- 0358 Jul, [facility] [place] [facility] [address] [id number] [place] [address]- 3694 Jul, [facility] [place] [facility] [address] [id number] [place] [address]- 3104 Jul, [facility] [place] [facility] [address] [id number] [place] [address]- 4864 Jul, [facility] [place] [facility] [address] [id number] [place] [address]- 8804 Jul, [facility] [place] [facility] [address] [id number] [place] [address]- 5641 Jul, [facility] [place] [facility] [address] [id number] [place] [address]- 1821 10 Jun, 2013 [facility] [place] [facility] [address] [id number] [place] [address]- 4189 10 Jun, 2013 [facility] [place] [facility] [address] [id number] [place] [address]- 1289 10 Jun, 2013 [facility] [place] [facility] [address] [id number] [place] [address]- 9034 Jun, [facility] [place] [facility] [address] [id number] [place] [address]- 8977 May, [facility] [place] [facility] [address] [id number] [place] [address]- 9049 May, [facility] [place] [facility] [address] [id number] [place] [address]- 4421 May, [facility] [place] [facility] [address] [id number] [place] [address]- 9010 May, [facility] [place] [facility] [address] [id number] [place] [address]- 7367 08 May, 2013 [facility] [address] [id number] [place] [address]- 1643 14 Mar, 2013 [facility] [place] [facility] [address] [id number] [place] [address]- 5234 14 Mar, 2013 [facility] [place] [facility] [address] [id number] [place] [address]- 3867 07 Mar, 2013 [facility] [place] [facility] [address] [id number] [place] [address]- 1202 07 Mar, 2013 [facility] [place] [facility] [address] [id number] [place] [address]- 3261 Mar, [facility] [place] [facility] [address] [id number] [place] [address]- 5816 Mar, [facility] [place] [facility] [address] [id number] [place] [address]- 0429 Feb, [facility] [address] [id number] [place] [address]- 3627 Feb, [facility] [place] [facility] [address] [id number] [place] [address]- 9918 Feb, [facility] [place] [facility] [address] [id number] [place] [address]- 5828 Feb, [facility] [place] [facility] [address] [id number] [place] [address]- 6415 Feb, [facility] [place] [facility] [address] [id number] [place] [address]- 6574 Feb, [facility] [place] [facility] [address] [id number] [place] [address] Feb, [facility] [place] [facility] [address] [id number] [place] [address]- 6195 Feb, [facility] [place] [facility] [address] [id number] [place] [address] Feb, [facility] [place] [facility] [address] [id number] [place] [address]- 8595 Feb, [facility] [place] [facility] [address] [id number] [place] [address]- 1379 Feb, [facility] [place] [facility] [address] [id number] [place] [address]- 3725 Feb, [facility] [place] [facility] [address] [id number] [place] [address]- 7837 Jan, [facility] [place] [facility] [address] [id number] [place] [address]- 8964 Jan, [facility] [place] [facility] [address] [id number] [place] [address]- 4452 Dec, [facility] [place] [facility] [address] [id number] [place] [address]- 3608 Dec, [facility] [place] [facility] [address] [id number] [place] [address]- 4964 Nov, [facility] [place] [facility] [address] [id number] [place] [address]- 1001 Nov, [facility] [place] [facility] [address] [id number] [place] [address]- 8681 Nov, [facility] [place] [facility] [address] [id number] [place] [address]- 7143 Nov, [facility] [place] [facility] [address] [id number] [place] [address]- 4807 Nov, [facility] [place] [facility] [address] [id number] [place] [address]- 4950 Oct, [facility] [place] [facility] [address] [id number] [place] [address]- 9341 September, [facility] [place] [facility] [address] [id number] [place] [address]- 4047 Aug, [facility] [place] [facility] [address] [id number] [place] [address]- 0025 29 Jul, 2012 [facility] [address] [id number] [place] [address]- 9902 Jul, [facility] [address] [id number] [place] [address]- 2429 Jul, [facility] [address] [id number] [place] [address]- 3909 28 Jun, 2012 [facility] [address] [id number] [place] [address]- 7544 14 Jun, 2012 [facility] [address] [id number] [place] [address]- 9821 Jun, [facility] [address] [id number] [place] [address]- 5770 Jun, [facility] [address] [id number] [place] [address]- 0848 Jun, [facility] [address] [id number] [place] [address]- 0176 May, [facility] [address] [id number] [place] [address]- 0443 May, [facility] [address] [id number] [place] [address]- 6718 Apr, [facility] [address] [id number] [place] [address]- 8536 Apr, [facility] [address] [id number] [place] [address]- 6911 Mar, [facility] [place] [facility] [address] [id number] [place] [address]- 4103 Mar, [facility] [place] [facility] [address] [id number] [place] [address]- 9558 Mar, [facility] [address] [id number] [place] [address]- 0286 Mar, [facility] [place] [facility] [address] [id number] [place] [address]- 0167 Mar, [facility] [place] [facility] [address] [id number] [place] [address]- 9778 Mar, [facility] [place] [facility] [address] [id number] [place] [address]- 5442 Mar, [facility] [place] [facility] [address] [id number] [place] [address]- 5848 Mar, [facility] [place] [facility] [address] [id number] [place] [address]- 9549 Mar, [facility] [place] [facility] [address] [id number] [place] [address]- 0606 Mar, [facility] [place] [facility] [address] [facility] [id number] [place] [address]- 6704 Feb, [facility] [place] [facility] [address] [id number] [place] [address]- 4805 Feb, [facility] [place] [facility] [address] [id number] [place] [address]- 6571 Feb, [facility] [place] [facility] [address] [id number] [place] [address]- 1197 Feb, [facility] [place] [facility] [address] [facility] [id number] [address]- 0067 Feb, [facility] [place] [facility] [address] [id number] [address]- 5112 Feb, [facility] [place] [facility] [address] [id number] [place] [address]- 1634 Jan, [facility] [place] [facility] [address] [id number] [place] [address]- 9164 Jan, [facility] [place] [facility] [address] [facility] [id number] [address]- 4769 Dec, [facility] [place] [facility] [address] [id number], [place] [address]- 0638 Dec, [facility] [address] [id number] [place] [address]- 9006 Dec, [facility] [place] [facility] [address] [id number] [place] [address]- 6036 Nov, [facility] [place] [facility] [address] [id number] [place] [address]- 5425 September, [facility] [place] [facility] [address] [id number] [place] [address]- 1077 September, [facility] [place] [facility] [address] [id number] [place] [address]- 9011 September, [facility] [place] [facility] [address] [id number] [place] [address]783 September, [facility] [address] [facility] [id number] [place] [address]- 8305 Aug, [facility] [place] [facility] [address] [id number] [place] [address]- 6471 Aug, [facility] [place] [facility] [address] [id number] [place] [address]- 5565 Aug, [facility] [place] [facility] [address] [facility] [id number] [place] [address]- 2366 Aug, [facility] [place] [facility] [address] [id number] [place] [address]- 8092 Aug, [facility] [place] [facility] [address] [id number] [place] [address]- 8340 Jul, [facility] [place] [facility] [address] [id number] [place] [address]- 0605 Jul, [facility] [place] [facility] [address] [id number] [place] [address]- 9975 Jul, [facility] [place] [facility] [address] [facility] [id number] [place] [address]- 3016 Jun, [facility] [place] [facility] [address] [id number] [place] [address]- 4460 17 Jun, 2011 [facility] [place] [facility] [address] [id number] [place] [address]- 1386 13 Jun, 2011 [facility] [place] [facility] [address] [id number] [place] [address] 2546 10 Jun, 2011 [facility] [place] [facility] [address] [id number] [place] [address]- 7456 07 Jun, 2011 [facility] [place] [facility] [address] [id number] [place] [address]- 8258 03 Jun, 2011 [facility] [place] [facility] [address] [id number] [place] [address]- 5131 03 Jun, 2011 [facility] [address] [id number] [place] [address]- 7724 24 May, 2011 [facility] [address] [id number] [place] [address]- 3834 May, [facility] [place] [facility] [address] [id number] [place] [address]- 6443 May, [facility] [place] [facility] [address] [facility] [id number] [place] [address]- 7861 May, [facility] [place] [facility] [address] [id number] [place] [address]- 3508 Apr, [facility] [place] [facility] [address] [id number] [place] [address]- 8314 Apr, [facility] [place] [facility] [address] [id number] [place] [address]- 4492 Mar, [facility] [place] [facility] [address] [id number] [place] [address]- 9447 Mar, [facility] [place] [facility] [address] [id number] [place] [address]- 9496 Mar, [facility] [place] [facility] [address] [id number] [address]- 7659 11 Nov, 2010 [facility] [address] [id number] [place] [address]- 9231 13 May, 2010 [facility] [address] [id number] [place] [address]- 2596 Apr, [facility] [address] [id number] [place] [address]- 3566 Apr, [facility] [place] [facility] [address] [id number] [place] [address] 2546 13 Apr, 2010 [facility] [address] [id number] [place] [address]- 5649 Apr, [facility] [place] [facility] [address] [id number] [place] 1705 Apr, [facility] [address] [id number] [place] [address]- 9182 Mar, [facility] [place] [facility] [address] [id number] [place] [address]- 8453 Mar, [facility] [address] [id number] [place] [address]- 7142 Feb, [facility] [place] [facility] [address] [id number] [place] [address]- 8987 14 Aug, 2009 [facility] [address] [id number] [address]- 5003 Jul, [facility] [place] [facility] [address] [id number] [place] [address]- 9552 17 Jun, 2009 [facility] [place] [facility] [address] [id number] [place] [address]- 1550 30 Apr, 2009 [facility] [place] [facility] [address] [id number] [place] [address]- 3388 Apr, [facility] [place] [facility] [address] [id number] [place] 7689 Mar, [facility] [place] [facility] [address] [id number] [place] [address]- 0086 Mar, [facility] [address] [facility] [id number] [address]- 3710 Feb, [facility] [address] [facility] [id number], [place] [address]- 9227 Dec, [facility] [address] [facility] [id number][place] [address]84 Oct, IMMUNIZATIONS No Known Immunizations SOCIAL HISTORY Never Assessed REASON FOR VISIT [id number] PLAN OF CARE Activity Details Follow Up 3 Months Reason:hypertension Future/Pending Procedure ROUTINE VENIPUNCTURE VITAL SIGNS Height 66 in 2018-04-25 Weight 264.4 lbs 2018-04-25 Temperature 98.3 degrees Fahrenheit 2018-04-25 Heart Rate 88 bpm 2018-04-25 Respiratory Rate 20 2018-04-25 BMI 42.67 kg/m2 2018-04-25 Blood pressure systolic 130 mmHg 2018-04-25 Blood pressure diastolic 82 mmHg 2018-04-25 MEDICATIONS Medication Instructions Dosage Frequency Start Date End Date Duration Status Abilify 10 MG Orally Once a day 1 tablet 24h Active Aspirin 325 MG Orally Once a day 1 tablet 24h Active Alprazolam 0.5 mg take 1 tablet by Oral route 2 times per day Jan, Active Nortriptyline HCl 25 MG Orally Once a day at bedtime 2 capsule Active Viibryd 40 MG Orally Once a day 1 tablet 24h Active Amlodipine Besylate 10 mg Orally Once a day 1 tablet 24h 90 days Active Klor-Con M20 20 MEQ Orally Once a day 1 tablet with food 24h 90 days Active Ketoconazole 2 % Externally Once a day 1 application to affected area 24h Apr, 4 weeks Active Lisinopril 40 mg Orally Once a day 1 tablet 24h 90 days Active Flonase 50 MCG/ACT Nasally Once a day 1 spray in each nostril 24h Active Pepcid 20 mg Orally 2 times a day 1 tablet at bedtime 12h 90 days Active ProAir HFA 108 (90 Base) mcg/act 2 puffs by Inhalation route 4 times per day PRN needs to keep appointment 9-08-20Dec, Active BusPIRone HCl 10 mg Orally twice a day 1 tablet 12h Active Metoprolol Succinate ER 50 mg Orally Once a day 1 tablet 24h 90 days Active Carbamazepine 200 mg Orally in the morning and 2 tablets at bedtime 1 tablet 30 days Active RESULTS No Results PROCEDURES Procedure Date Ordered Result Body Site [facility] ESTABLISHED PATIENT Apr 25, 2018 WILLIAM, JM* Apr 25, 2018 LAB NOT BILLED BY [facility] Apr 25, 2018 INSTRUCTIONS MEDICATIONS ADMINISTERED No Known Medications MEDICAL (GENERAL) HISTORY Type Description Date Medical History hypertension Medical History neuropathy Medical History depression Medical History anxiety Medical History Hyposmolality and/or hyponatremia Surgical History cleaned out left side of sinuses 2013 Surgical History colonscopy 09/03/15 Hospitalization History cellulitis 09/2013 Hospitalization History surgery 2013 Hospitalization History A Fib--[facility] 03/08/2016 Hospitalization History acute chest pain, hypertensive urgency, paroxsysmal htn-[facility] 05/10/16
--- OUTSIDE RECORDS SUMMARY | 2018-09-17 11:34 | XMS REPORT ---
Author Author Migration, Doctor Organization [facility] Address Unknown Phone Unavailable Care Team Providers Care Equipment Lead Name Role Phone Migration, Doctor Unavailable Unavailable PROBLEMS Type Condition ICD9-CM Code [id number] Code Onset Dates Condition Status SNOMED Code Problem Generalized anxiety disorder F41.1 Active 346601786 Problem Primary insomnia F51.01 Active 664242890 Problem Chronic migraine G43.709 Active 83780100 Problem Mild intermittent asthma without complication J45.20 Active 370719055 Problem Idiopathic peripheral neuropathy G60.9 Active 38942008 Problem Hidradenitis L73.2 Active 30738943 Problem Obstructive sleep apnea G47.33 Active 97666846 Problem Elevated alkaline phosphatase level R74.8 Active 934608129 Problem Vitamin D deficiency E55.9 Active 40052396 Problem Hyponatremia E87.1 Active 11534389 Problem Chronic frontal sinusitis J32.1 Active 88042094 Problem Secondary pulmonary arterial hypertension I27.21 Active 64878192 Problem Hyperlipidemia E78.5 Active 16086462 Problem BMI 40.0-44.9, adult Z68.41 Active 131020421 Problem Essential hypertension I10 Active 20370376 Problem Seasonal allergies J30.2 Active 409184531 Problem Paroxysmal atrial fibrillation I48.0 Active 856941674 Problem Other chronic gastritis without hemorrhage K29.50 Active 2435800 Problem Depression, unspecified depression type F32.9 Active 02995208 Problem Fasciculations of muscle R25.3 Active 09573174 ALLERGIES No Information ENCOUNTERS Encounter Location Date Diagnosis [facility] [address] [facility] [id number] [address] Aug, [facility] [id number] [address] 8810 Jul, Essential hypertension I10 [facility] [id number] [address] 8566 Jul, Essential hypertension I10 [facility] [address] [id number] [address] 6157 Jul, [facility] [id number] [place] [address] 36175- 4204 Jun, [facility] [id number] [place] [address] 83618- 8044 May, Essential hypertension I10 [facility] [address] 87845- 3162 May, Essential hypertension I10 [facility] [id number] [place] [address] 39619- 5166 Apr, Essential hypertension I10 ; Intertrigo L30.4 ; Mild intermittent asthma without complication J45.20 and BMI 40.0-44.9, adult Z68.41 [facility] [id number] [place] [address] 44831- 3634 Apr, Essential hypertension I10 [facility] [id number] [place] [address] 27518- 2878 Mar, [facility] [id number] [place] [address] 60562- 6559 Mar, [facility] [id number] [place] [address] 76874- 5673 Feb, Essential hypertension I10 [facility] [id number] [place] [address] 86083- 4311 Feb, Intertrigo L30.4 and Encounter for immunization Z23 [facility] [id number] [place] [address] 72911- 9227 Feb, [facility] [address] 50970- 6151 Jan, Essential hypertension I10 [facility] [id number] [place] [address] 41374- 2198 Jan, [facility] [id number] [place] [address] 45781- 8685 Jan, Screening for cervical cancer Z12.4 ; BMI 40.0-44.9, adult Z68.41 ; Screening for breast cancer Z12.31 ; Candidal intertrigo B37.2 and Elevated glucose level R73.09 [place] [address] [address] 3747 Jan, Essential hypertension I10 [place] [id number] [place] [address] 89445- 5030 Dec, [place] [id number] [place] [address] 71495- 2436 Dec, [place] [id number] [place] [address] 22668- 1401 Dec, Essential hypertension I10 [place] [id number] [place] [address] 52665- 2698 Nov, Essential hypertension I10 [place] [id number] [place] [address] 94831- 9857 Nov, [place] [id number] [place] [address] 69410- 2420 Nov, Essential hypertension I10 and BMI 40.0-44.9, adult Z68.41 [place] [address] [address]- 8294 Oct, Essential hypertension I10 and Chronic kidney disease, unspecified CKD stage N18.9 [place] [address] [id number] [address]- 4565 Oct, Essential hypertension I10 and Chronic kidney disease, unspecified CKD stage N18.9 [place] [id number] [place] [address] 66802- 7148 Oct, [place] [address] [address]- 0677 September, Medicare annual wellness visit, initial Z00.00 [...] and BMI 40.0-44.9, adult Z68.41 [facility] [address] 98385- 6856 30 Aug, 2017 Essential hypertension I10 [facility] [address] 48196 -8230 Jun, Dysuria R30.0 ; UTI symptoms R39.9 and Candidiasis of breast B37.89 [facility] [address] 49533- 8271 Jun, Hyponatremia E87.1 [facility] [address] 37162- 8613 Jun, Hyponatremia E87.1 [facility] [address] 67130- 9477 Jun, Hyponatremia E87.1 [facility] [address] 65952- 1759 Jun, [facility] [address] 14828- 6331 May, Hyponatremia E87.1 [facility] [address] 30057- 9097 May, Hyponatremia E87.1 [facility] [address] 91446- 0421 May, Hyponatremia E87.1 [facility] [address] 87388- 8396 May, Hyponatremia E87.1 [facility] [address] 55797- 1713 Apr, Hyponatremia E87.1 ; Fasciculations of muscle R25.3 and Hyperlipidemia E78.5 [facility] [id number] [place] [address] 39618- 0261 Apr, Cough R05 ; Hyponatremia E87.1 ; Fasciculations of muscle R25.3 ; Primary insomnia F51.01 ; Essential hypertension I10 ; Hyperlipidemia E78.5 ; Screening for breast cancer Z12.31 and BMI 40.0-44.9, adult Z68.41 [facility] [id number] [place] [address] 50386- 9090 Apr, Essential hypertension I10 [facility] [id number] [place] [address] 63963- 4945 Mar, [facility] [id number] [place] [address] 53170- 2002 Mar, [facility] [id number] [place] [address] 53445- 6742 Mar, [facility] [id number] [place] [address] 46237- 2240 Feb, [facility] [id number] [place] [address] 72214- 3591 Jan, [facility] [id number] [place] [address] 81765- 0819 Dec, Essential hypertension I10 [facility] [id number] [place] [address] 79941- 2129 Dec, [facility] [id number] [place] [address] 30999- 4801 Dec, Essential hypertension I10 [facility] [id number] [place] [address] 978623- 3526 Nov, [facility] [id number] [place] [address] 09066- 9397 Oct, Essential hypertension I10 [facility] [id number] [place] [address] 45655- 1126 Oct, Essential hypertension I10 [place] [id number] [place] [address] 14840- 8553 Oct, [facility] [id number] [place] [address] 53301- 8038 September, [place] [id number] [place] [address] 31009- 0207 September, Essential hypertension I10 [place] [address] 44334- 4952 September, [place] [address] 72822- 6912 September, Essential hypertension I10 ; Hyperlipidemia E78.5 and Hyponatremia E87.1 [place] [id number] [place] [address] 76621- 1078 September, Mild intermittent asthma without complication J45.20 ; Essential hypertension I10 ; Hyperlipidemia E78.5 ; Hyponatremia E87.1 and Dysuria R30.0 [place] [id number] [place] [address] 17427- 7261 September, Other chronic gastritis without hemorrhage K29.50 ; Paroxysmal atrial fibrillation I48.0 and Essential hypertension I10 [place] [id number] [place] [address] 86941- 6653 Aug, [facility] [id number] [place] [address] 15175- 7465 14 Jul, 2016 [facility] [id number] [place] [address] 88388- 8882 14 Jun, 2016 [facility] [id number] [place] [address] 23626 -5566 07 Jun, 2016 Dysuria R30.0 and Acute cystitis with hematuria N30.01 [facility] [id number] [place] [address] 58389- 6592 Jun, Essential hypertension I10 [facility] [id number] [place] [address] 09289- 3613 May, Paroxysmal atrial fibrillation I48.0 [facility] [id number] [place] [address] 02637- 2279 May, Other chronic gastritis without hemorrhage K29.50 [facility] [address] 05506- 3057 May, [facility] [id number] [place] [address] 88869- 4488 May, Hyponatremia E87.1 ; Essential hypertension I10 and Other chronic gastritis without hemorrhage K29.50 [facility] [id number] [place] [address] 36537- 8559 May, Hyponatremia E87.1 [facility] [address] 20031- 6295 May, Hyponatremia E87.1 [facility] [address] [id number] May, [facility] [id number] [place] [address] 62326- 4761 Apr, [facility] [id number] [place] [address] 41000- 4644 Apr, [facility] [id number] [place] [address] 82438- 5877 Mar, Essential hypertension I10 and Candidal intertrigo B37.2 [facility] [id number] [place] [address] 09030- 2694 Mar, Hyponatremia E87.1 [facility] [id number] [place] [address] 30141- 6316 14 Mar, 2016 [facility] [id number] [place] [address] 97343- 2047 Mar, Hyponatremia E87.1 [facility] [id number] [place] [address] 03906- 2859 09 Mar, 2016 Essential hypertension I10 ; Hyponatremia E87.1 ; Slurred speech R47.81 ; Paroxysmal atrial fibrillation I48.0 and Elevated blood sugar R73.9 [facility] [id number] [place] [address] 67296- 4508 Mar, [facility] [address] 23854- 8764 Mar, [facility] [address] 62883- 7584 Feb, [place] [address] 83133- 2426 Jan, [facility] [address] 88001- 0316 Dec, [facility] [address] 88000 -2080 Nov, Scratched by cat, initial encounter W55.03XA and Other injury of unspecified body region T14.8 [place] [address] 08089- 0499 Nov, [facility] [id number] [place] [address] 22187- 0393 Oct, [place] [address] 67557- 9337 September, [facility] [address] 52669- 1429 Aug, Elevated alkaline phosphatase level R74.8 [place] [address] 45936- 4496 Jul, [facility] [id number] [place] [address] 86188- 4088 Jun, Essential hypertension I10 and Bright red blood per rectum K62.5 [place] [id number] [place] [address] 83422- 7957 11 Jun, 2015 Elevated alkaline phosphatase level R74.8 [place] [address] 46455- 7098 10 Jun, 2015 [place] [address] 33627- 3525 May, Essential hypertension I10 ; Hyperlipidemia E78.5 and Well woman exam (no gynecological exam) Z00.00 [place] [id number] [place] [address] 45471- 9341 May, [place] [address] 39349- 9787 May, [place] [address] 51851- 6337 Mar, [place] [address] 18089- 2723 Mar, [place] [id number] [place] [address] 40662- 6726 Mar, [place] [id number] [place] [address] 36372- 3336 Feb, Acute recurrent maxillary sinusitis J01.01 ; Asthma, unspecified, unspecified status 493.90 ; Seasonal allergies J30.2 and Cat allergies J30.81 [place] [id number] [place] [address] 30144- 9930 13 Feb, 2015 Upper respiratory tract infection, unspecified upper respiratory infection J06.9 [place] [id number] [place] [address] 77103- 7561 Jan, [place] [address] 57653- 4315 02 Jan, 2015 Dysphagia 787.20 and GERD (gastroesophageal reflux disease) 530.81 [place] [address] 23822- 1406 Jan, Breast lesion 611.9 [facility] [address] [place] [address] 54840- 8126 Dec, Breast lesion 611.9 [facility] [address] [place] [address] 10476- 6956 Dec, Breast lesion 611.9 [facility] [id number] [place] [address] 81484- 3126 Nov, Fatigue 780.79 and Hyperlipidemia 272.4 [facility] [id number] [place] [address] 21924- 2241 Nov, Hypertension 401.9 ; Hyperlipidemia 272.4 ; Chronic frontal sinusitis 473.1 and Fatigue 780.79 [facility] [id number] [place] [address] 52657- 5500 Nov, [facility] [id number] [place] [address] 76713- 0877 Oct, [facility] [address] [place] [address] 54629- 1008 Oct, [facility] [id number] [place] [address] 35256- 6296 September, [facility] [address] [address]- 6626 September, [facility] [address] [address]- 2546 September, [facility] [address] [address]- 2546 September, [facility] [id number] [place] [address] 84156- 8736 Aug, [facility] [address] [address]- 3806 Aug, [facility] [address] [place] [address] 08340- 9271 13 Aug, 2014 [facility] [place] [facility] [address] [id number] [place] [address]- 2323 20 Jul, 2014 [facility] [place] [facility] [address] [id number] [place] [address]- 0579 20 Jul, 2014 [facility] [place] [facility] [address] [id number] [place] [address]- 9677 19 Jul, 2014 [facility] [place] [facility] [address] [id number] [place] [address]- 8863 19 Jul, 2014 [facility] [place] [facility] [address] [id number] [place] [address]- 1765 18 Jul, 2014 [facility] [place] [facility] [address] [id number] [place] [address]- 3696 17 Jul, 2014 [facility] [place] [facility] [address] [id number] [place] [address]- 1073 17 Jul, 2014 [facility] [place] [facility] [address] [id number] [place] [address]- 7731 16 Jul, 2014 [facility] [place] [facility] [address] [id number] [place] [address]- 5684 16 Jul, 2014 [facility] [place] [facility] [address] [id number] [place] [address]- 9323 12 Jul, 2014 [facility] [place] [facility] [address] [id number] [place] [address]- 5711 12 Jul, 2014 [facility] [place] [facility] [address] [id number] [address]- 2596 09 Jul, 2014 [facility] [place] [facility] [address] [id number] [place] [address]- 0662 Jul, [facility] [place] [facility] [address] [id number] [place] [address]- 9466 04 Jul, 2014 [facility] [place] [facility] [address] [id number] [place] [address]- 6462 04 Jul, 2014 [facility] [place] [facility] [address] [id number] [place] [address]- 7306 Jun, 2014 [facility] [address] [id number] [place] [address]- 1056 Jun, 2014 [facility] [place] [facility] [address] [id number] [place] [address]- 3506 Jun, 2014 [facility] [address] [id number] [place] [address]- 7616 Jun, 2014 [facility] [place] [facility] [address] [id number] [place] [address]- 1332 May, [facility] [place] [facility] [address] [id number] [place] [address]- 3767 May, [facility] [place] [facility] [address] [id number] [place] [address]- 6369 May, [facility] [place] [facility] [address] [id number] [place] [address]- 5511 May, [facility] [address] [id number] [place] [address]- 1581 Apr, [facility] [place] [facility] [address] [id number] [place] [address]- 4422 Apr, [facility] [place] [facility] [address] [id number] [place] [address]- 2389 Apr, [facility] [place] [facility] [address] [id number] [place] [address]- 6011 Apr, [facility] [place] [facility] [address] [id number] [place] [address]- 5606 Apr, [facility] [place] [facility] [address] [id number] [place] [address]- 3226 Apr, [facility] [place] [facility] [address] [id number] [place] [address]- 1441 Mar, [facility] [place] [facility] [address] [id number] [place] [address] 3700 Mar, [facility] [place] [facility] [address] [id number] [place] [address]- 0799 Mar, [facility] [place] [facility] [address] [id number] [place] [address]- 3301 Mar, [facility] [place] [facility] [address] [id number] [place] [address]- 4092 Mar, [facility] [place] [facility] [address] [id number] [place] [address]- 4779 Mar, [facility] [place] [facility] [address] [id number] [place] [address]- 2501 Mar, [facility] [place] [facility] [address] [id number] [place] [address]- 6378 Mar, [facility] [place] [facility] [address] [id number] [place] [address]- 5431 Mar, [facility] [place] [facility] [address] [id number] [place] [address]- 0774 Mar, [facility] [place] [facility] [address] [id number] [place] [address]- 5840 Mar, [facility] [place] [facility] [address] [id number] [place] [address]- 0918 Mar, [facility] [place] [facility] [address] [id number] [place] [address]- 2074 Mar, [facility] [place] [facility] [address] [id number] [place] [address] Mar, [facility] [place] [facility] [address] [id number] [place] [address] Mar, [facility] [place] [facility] [address] [id number] [place] [address] Mar, [facility] [place] [facility] [address] [id number] [place] [address] Mar, [facility] [place] [facility] [address] [id number] [place] [address] 30 Feb, 2013 [facility] [place] [facility] [address] [id number] [place] [address] 30 Feb, 2013 [facility] [place] [facility] [address] [id number] [place] [address] 30 Feb, 2013 [facility] [place] [facility] [address] [id number] [place] [address] 30 Feb, 2013 [facility] [place] [facility] [address] [id number] [place] [address] 29 Feb, 2013 [facility] [place] [facility] [address] [id number] [place] [address] 29 Feb, 2013 [facility] [place] [facility] [address] [id number] [place] [address] Feb, 2013 [facility] [place] [facility] [address] [id number] [place] [address] Feb, 2013 [facility] [place] [facility] [address] [id number] [place] [address] 28 Feb, 2013 [facility] [place] [facility] [address] [id number] [place] [address] 28 Feb, 2013 [facility] [place] [facility] [address] [id number] [place] [address]- [address] 16 Feb, 2013 [facility] [place] [facility] [address] [id number] [place] [address] 16 Feb, 2013 [facility] [place] [facility] [address] [id number] [place] [address] 15 Feb, 2013 [facility] [place] [facility] [address] [id number] [place] [address]- [address] 15 Feb, 2013 [facility] [place] [facility] [address] [id number] [place] [address] 08 Feb, 2013 [facility] [place] [facility] [address] [id number] [place] [address] 08 Feb, 2013 [facility] [place] [facility] [address] [id number] [place] [address] Feb, [facility] [place] [facility] [address] [id number] [place] [address] Feb, [facility] [place] [facility] [address] [id number] [place] [address] Feb, [facility] [place] [facility] [address] [id number] [place] [address]46 30 Jan, 2013 [facility] [place] [facility] [address] [id number] [place] [address] 30 Jan, 2013 [facility] [place] [facility] [address] [id number] [place] [address] 29 Jan, 2013 [facility] [place] [facility] [address] [id number] [place] [address] 29 Jan, 2013 [facility] [place] [facility] [address] [id number] [place] [address]- [address] 24 Jan, 2013 [facility] [place] [facility] [address] [id number] [place] [address]44 24 Jan, 2013 [facility] [place] [facility] [address] [id number] [place] [address]- [address] 10 Jan, 2014 [facility] [place] [facility] [address] [id number] [place] [address] 08 Jan, 2014 [facility] [place] [facility] [address] [id number] [place] [address]- [address] 08 Jan, 2014 [facility] [place] [facility] [address] [id number] [place] [address] Dec, [facility] [place] [facility] [address] [id number] [place] [address] Dec, [facility] [place] [facility] [address] [id number] [place] [address] Dec, [facility] [place] [facility] [address] [id number] [place] [address] Dec, [facility] [place] [facility] [address] [id number] [place] [address] Dec, [facility] [place] [facility] [address] [id number] [place] [address] Dec, [facility] [place] [facility] [address] [id number] [place] [address] Dec, [facility] [place] [facility] [address] [id number] [place] [address] Dec, [facility] [place] [facility] [address] [id number] [place] [address] Dec, [facility] [place] [facility] [address] [id number] [place] [address] 9876 Nov, [facility] [place] [facility] [address] [id number] [place] [address] 8721 Nov, [facility] [place] [facility] [address] [id number] [place] [address] 9842 Nov, [facility] [place] [facility] [address] [id number] [place] [address]106 Nov, [facility] [place] [facility] [address] [id number] [place] [address]- 6878 Nov, [facility] [place] [facility] [address] [id number] [place] [address]- 4490 Nov, [facility] [place] [facility] [address] [id number] [place] [address] 3887 Oct, [facility] [place] [facility] [address] [id number] [place] [address]- 9984 Oct, [facility] [place] [facility] [address] [id number] [place] [address] 6518 Oct, [facility] [place] [facility] [address] [id number] [place] [address]- 4580 Oct, [facility] [place] [facility] [address] [id number] [place] [address]- 9717 Oct, [facility] [place] [facility] [address] [id number] [place] [address] 3730 Oct, [facility] [place] [facility] [address] [id number] [place] [address] 9777 Oct, [facility] [place] [facility] [address] [id number] [place] [address]- 3146 Oct, [facility] [place] [facility] [address] [id number] [place] [address]- 8511 Oct, [facility] [place] [facility] [address] [id number] [place] [address] 2240 Oct, [facility] [place] [facility] [address] [id number] [place] [address]- 9163 Oct, [facility] [place] [facility] [address] [id number] [place] [address]- 9979 Oct, [facility] [place] [facility] [address] [id number] [place] [address]- 7848 Oct, [facility] [place] [facility] [address] [id number] [place] [address] 2089 Oct, [facility] [place] [facility] [address] [id number] [place] [address] 0608 September, [facility] [place] [facility] [address] [id number] [place] [address]- 1471 September, [facility] [place] [facility] [address] [id number] [place] [address]- 5937 September, [facility] [place] [facility] [address] [id number] [place] [address]- 9575 September, [facility] [place] [facility] [address] [id number] [place] [address] 1915 September, [facility] [place] [facility] [address] [id number] [place] [address]- 8300 September, [facility] [place] [facility] [address] [id number] [place] [address] 2878 September, [facility] [address] [id number] [place] [address] September, [facility] [address] [id number] [place] [address]- 0544 September, [facility] [place] [facility] [address] [id number] [place] [address]- 5867 September, [facility] [address] [id number] [place] [address]- 5369 September, [facility] [place] [facility] [address] [id number] [place] [address]- 2023 September, [facility] [address] [id number] [place] [address]- 6779 September, [facility] [address] [id number] [place] [address]- 0913 September, [facility] [address] [id number] [place] [address]- 3779 September, [facility] [place] [facility] [address] [id number] [place] [address]- 1026 September, [facility] [place] [facility] [address] [id number] [place] [address]- 2144 September, [facility] [place] [facility] [address] [id number] [place] [address]- 5095 September, [facility] [place] [facility] [address] [id number] [place] [address]- 6985 September, [facility] [place] [facility] [address] [id number] [place] [address]- 8918 Aug, [facility] [place] [facility] [address] [id number] [place] [address]- 8847 Aug, [facility] [place] [facility] [address] [id number] [place] [address]- 9019 31 Jul, 2013 [facility] [place] [facility] [address] [id number] [place] [address]- 2041 31 Jul, 2013 [facility] [place] [facility] [address] [id number] [place] [address]- 4254 28 Jul, 2013 [facility] [place] [facility] [address] [id number] [place] [address]- 8927 Jul, [facility] [place] [facility] [address] [id number] [place] [address]- 4838 Jul, [facility] [place] [facility] [address] [id number] [place] [address]- 0455 Jul, [facility] [place] [facility] [address] [id number] [place] [address]- 9232 Jul, [facility] [place] [facility] [address] [id number] [place] [address]- 5237 Jul, [facility] [place] [facility] [address] [id number] [place] [address]- 1267 Jul, [facility] [place] [facility] [address] [id number] [place] [address]- 9873 Jul, [facility] [place] [facility] [address] [id number] [place] [address]- 1423 Jul, [facility] [place] [facility] [address] [id number] [place] [address]- 8248 Jul, [facility] [place] [facility] [address] [id number] [place] [address]- 8295 Jul, [facility] [place] [facility] [address] [id number] [place] [address]- 7593 Jul, [facility] [place] [facility] [address] [id number] [place] [address]- 4977 10 Jun, 2013 [facility] [place] [facility] [address] [id number] [place] [address]- 0732 Jun, [facility] [place] [facility] [address] [id number] [place] [address]- 7128 10 Jun, 2013 [facility] [place] [facility] [address] [id number] [place] [address]- 0788 Jun, [facility] [place] [facility] [address] [id number] [place] [address]- 0968 May, [facility] [place] [facility] [address] [id number] [place] [address]- 5023 May, [facility] [place] [facility] [address] [id number] [place] [address]- 7756 May, [facility] [place] [facility] [address] [id number] [place] [address]- 7035 May, [facility] [place] [facility] [address] [id number] [place] [address]- 7234 May, [facility] [place] [facility] [address] [id number] [place] [address]- 1600 Mar, [facility] [place] [facility] [address] [id number] [place] [address]- 9579 Mar, [facility] [place] [facility] [address] [id number] [place] [address]- 2057 Mar, [facility] [place] [facility] [address] [id number] [place] [address]- 2195 Mar, [facility] [place] [facility] [address] [id number] [place] [address]- 0797 Mar, [facility] [place] [facility] [address] [id number] [place] [address]- 1416 Mar, [facility] [place] [facility] [address] [id number] [place] [address]- 4705 Feb, [facility] [place] [facility] [address] [id number] [place] [address]- 4457 Feb, [facility] [place] [facility] [address] [id number] [place] [address]- 2547 Feb, [facility] [place] [facility] [address] [id number] [place] [address]- 7357 Feb, [facility] [place] [facility] [address] [id number] [place] [address]- 8337 Feb, [facility] [place] [facility] [address] [id number] [place] [address]- 6423 Feb, [facility] [place] [facility] [address] [id number] [place] [address]- 4007 Feb, [facility] [place] [facility] [address] [id number] [place] [address]- 5580 Feb, [facility] [place] [facility] [address] [id number] [place] [address]- 8839 Feb, [facility] [place] [facility] [address] [id number] [place] [address]- 5434 Feb, [facility] [place] [facility] [address] [id number] [place] [address]- 0835 Feb, [facility] [place] [facility] [address] [id number] [place] [address]- 4784 Feb, [facility] [place] [facility] [address] [id number] [place] [address]- 6159 Jan, [facility] [place] [facility] [address] [id number] [place] [address] 2548 Jan, [facility] [place] [facility] [address] [id number] [place] [address] 2548 Dec, [facility] [place] [facility] [address] [id number] [place] [address]- 254 Dec, [facility] [place] [facility] [address] [id number] [place] [address]- 2544 Nov, [facility] [place] [facility] [address] [id number] [place] [address]- 2540 Nov, [facility] [place] [facility] [address] [id number] [place] [address]- 0099 Nov, [facility] [address] [id number] [place] [address]- 9595 Nov, [facility] [place] [facility] [address] [id number] [place] [address] 2546 Nov, [facility] [address] [id number] [place] [address]- 5348 Oct, [facility] [address] [id number] [place] [address]- 2546 September, [facility] [address] [id number] [place] [address]- 1719 Aug, [facility] [address] [id number] [place] [address]- 8886 Jul, [facility] [address] [id number] [place] [address]- 8182 Jul, [facility] [address] [id number] [place] [address]- 1109 Jul, [facility] [address] [id number] [place] [address]- 5155 28 Jun, 2012 [facility] [address] [id number] [place] [address]- 3911 14 Jun, 2012 [facility] [place] [facility] [address] [id number] [place] [address] 2546 Jun, [facility] [address] [id number] [place] [address]- 2549 Jun, [facility] [place] [facility] [address] [id number] [place] [address]- 2546 Jun, [facility] [place] [facility] [address] [id number] [place] [address]- 2546 May, [facility] [place] [facility] [address] [id number] [place] [address]- 2086 May, [facility] [place] [facility] [address] [id number] [place] [address]- 5089 Apr, [facility] [place] [facility] [address] [id number] [place] [address]- 7386 Apr, [facility] [place] [facility] [address] [id number] [place] [address]- 8916 Mar, [facility] [place] [facility] [address] [id number] [place] [address]- 1344 Mar, [facility] [place] [facility] [address] [id number] [place] [address]- 4846 Mar, [facility] [place] [facility] [address] [id number] [place] [address]- 3550 Mar, [facility] [place] [facility] [address] [facility] [id number] [place] [address]- 3414 Mar, [facility] [place] [facility] [address] [id number] [place] [address]- 7301 Mar, [facility] [place] [facility] [address] [id number] [place] [address]- 3474 Mar, [facility] [place] [facility] [address] [facility] [id number] [place] [address]- 4722 Mar, [facility] [place] [facility] [address] [id number] [place] [address]- 6023 Mar, [facility] [place] [facility] [address] [id number] [place] [address]- 3975 Mar, [facility] [place] [facility] [address] [id number] [place] [address]- 3047 Feb, [facility] [place] [facility] [address] [id number] [place] [address]- 5675 Feb, [facility] [place] [facility] [address] [facility] [id number] [place] [address]- 9488 Feb, [facility] [place] [facility] [address] [id number] [place] [address]- 2310 30 Feb, 2012 [facility] [place] [facility] [address] [id number] [place] [address]- 5847 Feb, [facility] [place] [facility] [address] [id number] [place] [address]- 7826 Feb, [facility] [place] [facility] [address] [id number] [place] [address] 2546 Jan, [facility] [place] [facility] [address] [id number] [place] [address] 254 Jan, [facility] [place] [facility] [address] [id number] [place] [address]- 3839 Dec, [facility] [place] [facility] [address] [id number] [place] [address]- 5419 Dec, [facility] [place] [facility] [address] [id number] [place] [address]- 6227 Dec, [facility] [place] [facility] [address] [id number] [place] [address]- 8921 Nov, [facility] [place] [facility] [address] [id number] [place] [address]- 5313 September, [facility] [place] [facility] [address] [id number] [place] [address]- 9911 September, [facility] [place] [facility] [address] [id number] [place] [address]- 4220 September, [facility] [place] [facility] [address] [id number] [place] [address]- 1587 September, [facility] [place] [facility] [address] [id number] [place] [address]- 6163 Aug, [facility] [place] [facility] [address] [id number] [place] [address]- 2962 Aug, [facility] [place] [facility] [address] [id number] [place] [address]- 0281 Aug, [facility] [place] [facility] [address] [id number] [place] [address]- 6149 Aug, [facility] [place] [facility] [address] [id number] [place] [address]- 8786 Aug, [facility] [place] [facility] [address] [id number] [place] [address]- 2236 Jul, [facility] [place] [facility] [address] [id number] [place] [address]- 7176 Jul, [facility] [place] [facility] [address] [id number] [place] [address]- 3979 Jul, [facility] [place] [facility] [address] [id number] [place] [address]- 5053 29 Jun, 2011 [facility] [place] [facility] [address] [id number] [place] [address]- 9516 17 Jun, 2011 [facility] [place] [facility] [address] [id number] [place] [address]- 6825 Jun, [facility] [place] [facility] [address] [id number] [place] [address]- 8804 Jun, [facility] [place] [facility] [address] [id number] [place] [address]- 6054 Jun, [facility] [place] [facility] [address] [facility] [id number] [place] [address]- 8513 Jun, [facility] [place] [facility] [address] [id number] [place] [address]- 0108 Jun, [facility] [place] [facility] [address] [id number] [place] [address]- 3789 May, [facility] [place] [facility] [address] [id number] [place] [address]- 6916 May, [facility] [place] [facility] [address] [id number] [place] [address]- 8156 May, [facility] [place] [facility] [address] [id number] [place] [address]- 1893 12 May, 2011 [facility] [address] [id number] [place] [address]- 9450 27 Apr, 2011 [facility] [place] [facility] [address] [id number] [place] [address]- 0986 13 Apr, 2011 [facility] [address] [id number] [place] [address]- 8216 Mar, [facility] [place] [facility] [address] [id number] [place] [address]- 5976 Mar, [facility] [address] [id number] [place] [address]- 8644 Mar, [facility] [place] [facility] [address] [id number] [place] [address]- 8210 Nov, [facility] [address] [id number] [place] [address]- 1921 May, [facility] [place] [facility] [address] [id number] [place] [address]- 1902 Apr, [facility] [place] [facility] [address] [id number] [place] [address]- 6280 Apr, [facility] [place] [facility] [address] [id number] [place] [address]- 8834 Apr, [facility] [place] [facility] [address] [id number] [place] [address]- 6577 Apr, [facility] [place] [facility] [address] [id number] [place] [address]- 9064 Apr, [facility] [place] [facility] [address] [id number] [place] [address]- 8541 18 Mar, 2010 [facility] [place] [facility] [address] [id number] [place] [address]- 0422 Mar, [facility] [place] [facility] [address] [id number] [place] [address]- 3180 Feb, [facility] [place] [facility] [address] [id number] [place] [address]- 2546 Aug, [facility] [id number] [address]- 3796 Jul, [facility] [id number] [address]- 2546 Jun, [facility] [id number] [address]- 2546 Apr, [facility] [id number] [address]- 2546 Apr, [facility] [id number] [address]- 2546 Mar, [facility] [id number] [address]- 2546 Mar, [facility] [id number] [address]- 2546 Feb, [facility] [id number] [address]- 0063 Dec, [facility] [address] [id number] [address]- 6216 Oct, IMMUNIZATIONS No Known Immunizations SOCIAL HISTORY Never Assessed REASON FOR VISIT EMR-[facility] PLAN OF CARE VITAL SIGNS MEDICATIONS Unknown [...] Hospitalization History surgery 2013 Hospitalization History A Fib--[facility] 03/08/2016 Hospitalization History acute chest pain, hypertensive urgency, paroxsysmal htn-[facility] 05/10/16
--- OUTSIDE RECORDS SUMMARY | 2018-09-17 11:35 | XMS REPORT ---
Author Author JORDY DESIREE [facility] Address [address] [place] [address] Care Team Providers Care Side Door Worker Name Role Phone DESIREE SPENCE Unavailable PROBLEMS Type Condition ICD9-CM Code [id number] Code Onset Dates Condition Status SNOMED Code Problem Vitamin D deficiency E55.9 Active 41638312 Problem Chronic frontal sinusitis J32.1 Active 14262533 Problem Hyponatremia E87.1 Active 22303825 Problem BMI 40.0-44.9, adult Z68.41 Active 264894871 Problem Seasonal allergies J30.2 Active 492301240 Problem Secondary pulmonary arterial hypertension I27.21 Active 62143865 Problem Other chronic gastritis without hemorrhage K29.50 Active 1183604 Problem Paroxysmal atrial fibrillation I48.0 Active 730806461 Problem Fasciculations of muscle R25.3 Active 48205067 Problem Depression, unspecified depression type F32.9 Active 69624776 Problem Mild intermittent asthma without complication J45.20 Active 277723637 Problem Chronic migraine G43.709 Active 97434461 Problem Primary insomnia F51.01 Active 506648677 Problem Generalized anxiety disorder F41.1 Active 465433985 Problem Elevated alkaline phosphatase level R74.8 Active 070384052 Problem Obstructive sleep apnea G47.33 Active 60748258 Problem Hidradenitis L73.2 Active 24662338 Problem Essential hypertension I10 Active 08363013 Problem Idiopathic peripheral neuropathy G60.9 Active 93940647 Problem Hyperlipidemia E78.5 Active 37622438 ALLERGIES No Information ENCOUNTERS Encounter Location Date Diagnosis [facility] [address] [address] Apr, [facility] [address] [address] 0145 Apr, Essential hypertension I10 [facility] [address] [address] 4786 Mar, [facility] [id number] [place] [address] 91313- 6023 Mar, [facility] [id number] [place] [address] 45520- 4839 Feb, Essential hypertension I10 [facility] [id number] [place] [address] 65192- 3719 Feb, Intertrigo L30.4 and Encounter for immunization Z23 [facility] [id number] [place] [address] 86445- 2959 Feb, [facility] [id number] [place] [address] 87285- 7081 Jan, Essential hypertension I10 [facility] [id number] [place] [address] 60698- 6349 Jan, [facility] [id number] [place] [address] 84416- 4334 Jan, Screening for cervical cancer Z12.4 ; BMI 40.0-44.9, adult Z68.41 ; Screening for breast cancer Z12.31 ; Candidal intertrigo B37.2 and Elevated glucose level R73.09 [facility] [address] [place] [address] 93853- 4739 Jan, Essential hypertension I10 [facility] [id number] [place] [address] 83668- 0255 Dec, [facility] [address] [place] [address] 04102- 3984 Dec, [facility] [id number] [place] [address] 10866- 6861 Dec, Essential hypertension I10 [facility] [address] [place] [address] 98543- 4350 Nov, Essential hypertension I10 [facility] [id number] [place] [address] 35728- 1515 Nov, [facility] [address] [address]- 6629 Nov, Essential hypertension I10 and BMI 40.0-44.9, adult Z68.41 [facility] [address] [address] 5001 Oct, Essential hypertension I10 and Chronic kidney disease, unspecified CKD stage N18.9 [facility] [id number] [place] [address] 80655- 6364 Oct, Essential hypertension I10 and Chronic kidney disease, unspecified CKD stage N18.9 [facility] [id number] [place] [address] 79207- 5362 Oct, [facility] [id number] [place] [address] 82413- 5436 September, Medicare annual wellness visit, initial Z00.00 ; Mild intermittent asthma without complication J45.20 ; Generalized anxiety disorder F41.1 ; Depression, unspecified depression type F32.9 ; Paroxysmal atrial fibrillation I48.0 ; Obstructive sleep apnea G47.33 ; Hyponatremia E87.1 ; Need for hepatitis C screening test Z11.59 ; Encounter for immunization Z23 ; Secondary pulmonary arterial hypertension I27.21 and BMI 40.0-44.9, adult Z68.41 [facility] [address] [address]- 5953 Aug, Essential hypertension I10 [facility] [address] [address]8 Jun, Dysuria R30.0 ; UTI symptoms R39.9 and Candidiasis of breast B37.89 [facility] [id number] [place] [address] 89051- 5156 Jun, Hyponatremia E87.1 [facility] [address] [place] [address] 26675- 3649 Jun, Hyponatremia E87.1 [facility] [address] [address]- 8461 Jun, Hyponatremia E87.1 [facility] [id number] [place] [address] 88416- 4764 Jun, [facility] [id number] [place] [address] 14954- 3816 May, Hyponatremia E87.1 [facility] [id number] [place] [address] 32672- 1547 May, Hyponatremia E87.1 [facility] [id number] [place] [address] 91097- 8898 May, Hyponatremia E87.1 [facility] [id number] [place] [address] 66922- 4298 May, Hyponatremia E87.1 [facility] [id number] [place] [address] 07631- 8235 Apr, Hyponatremia E87.1 ; Fasciculations of muscle R25.3 and Hyperlipidemia E78.5 [facility] [id number] [place] [address] 30234- 9739 Apr, Cough R05 ; Hyponatremia E87.1 ; Fasciculations of muscle R25.3 ; Primary insomnia F51.01 ; Essential hypertension I10 ; Hyperlipidemia E78.5 ; Screening for breast cancer Z12.31 and BMI 40.0-44.9, adult Z68.41 [facility] [address] [place] [address] 22612- 0958 Apr, Essential hypertension I10 [facility] [id number] [place] [address] 98173- 0838 Mar, [facility] [id number] [place] [address] 11761- 7166 Mar, [facility] [id number] [place] [address] 63508- 7073 Mar, [facility] [address] [address]- 4822 Feb, [facility] [address] [address]- 9321 Jan, [facility] [address] [address]- 6757 Dec, Essential hypertension I10 [facility] [id number] [place] [address] 82848- 4334 Dec, [facility] [address] [place] [address] 88604- 5376 Dec, Essential hypertension I10 [facility] [address] [place] [address] 50272- 3211 Nov, [facility] [address] [place] [address] 55402- 0262 Oct, Essential hypertension I10 [facility] [address] [address]- 2750 Oct, Essential hypertension I10 [facility] [address] [place] [address] 44143- 3664 Oct, [facility] [address] [address]- 2348 September, [facility] [address] [address]- 0341 September, Essential hypertension I10 [facility] [address] [address]- 7416 September, [facility] [id number] [place] [address] 21852- 6333 September, Essential hypertension I10 ; Hyperlipidemia E78.5 and Hyponatremia E87.1 [facility] [address] [address]- 4715 September, Mild intermittent asthma without complication J45.20 ; Essential hypertension I10 ; Hyperlipidemia E78.5 ; Hyponatremia E87.1 and Dysuria R30.0 [facility] [address] [place] [address] 70564- 4375 September, Other chronic gastritis without hemorrhage K29.50 ; Paroxysmal atrial fibrillation I48.0 and Essential hypertension I10 [facility] [id number] [place] [address] 54331- 4639 Aug, [facility] [id number] [place] [address] 89870- 7431 Jul, [facility] [id number] [place] [address] 38935- 7117 14 Jun, 2016 [facility] [id number] [place] [address] 70196 -7416 07 Jun, 2016 Dysuria R30.0 and Acute cystitis with hematuria N30.01 [facility] [id number] [place] [address] 90673- 3133 Jun, Essential hypertension I10 [facility] [id number] [place] [address] 18575- 0727 May, Paroxysmal atrial fibrillation I48.0 [facility] [id number] [place] [address] 18220- 7676 May, Other chronic gastritis without hemorrhage K29.50 [facility] [id number] [place] [address] 73586- 2802 May, [facility] [id number] [place] [address] 36090- 8720 May, Hyponatremia E87.1 ; Essential hypertension I10 and Other chronic gastritis without hemorrhage K29.50 [facility] [id number] [place] [address] 21574- 5800 May, Hyponatremia E87.1 [facility] [id number] [place] [address] 14405- 7459 May, Hyponatremia E87.1 [facility] [id number] [place] [address] [id number] 06 May, 2016 [facility] [id number] [place] [address] 41343- 6770 16 Apr, 2016 [facility] [id number] [place] [address] 26309- 7001 Apr, [facility] [address] 31123- 8494 29 Mar, 2016 Essential hypertension I10 and Candidal intertrigo B37.2 [facility] [id number] [place] [address] 34784- 0524 Mar, Hyponatremia E87.1 [facility] [id number] [place] [address] 85329- 9305 14 Mar, 2016 [facility] [id number] [place] [address] 44901- 3905 Mar, Hyponatremia E87.1 [facility] [id number] [place] [address] 39167- 9975 09 Mar, 2016 Essential hypertension I10 ; Hyponatremia E87.1 ; Slurred speech R47.81 ; Paroxysmal atrial fibrillation I48.0 and Elevated blood sugar R73.9 [facility] [address] [place] [address] 98541- 4798 Mar, [facility] [id number] [place] [address] 35878- 1696 Mar, [facility] [id number] [place] [address] 23981- 0242 Feb, [facility] [id number] [place] [address] 31224- 1558 15 Jan, 2016 [facility] [address] [place] [address] 32492- 0704 18 Dec, 2015 [facility] [id number] [place] [address] 34328 -0579 Nov, Scratched by cat, initial encounter W55.03XA and Other injury of unspecified body region T14.8 [facility] [id number] [place] [address] 60685- 4982 Nov, [facility] [id number] [place] [address] 20987- 6471 Oct, [facility] [id number] [place] [address] 83593- 7556 September, [facility] [id number] [place] [address] 61623- 4937 Aug, Elevated alkaline phosphatase level R74.8 [facility] [id number] [place] [address] 46741- 5434 Jul, [facility] [id number] [place] [address] 21018- 2899 Jun, Essential hypertension I10 and Bright red blood per rectum K62.5 [facility] [address] [place] [address] 81117- 5392 Jun, Elevated alkaline phosphatase level R74.8 [facility] [id number] [place] [address] 23848- 4860 Jun, [facility] [id number] [place] [address] 82636- 9124 May, Essential hypertension I10 ; Hyperlipidemia E78.5 and Well woman exam (no gynecological exam) Z00.00 [facility] [address] [place] [address] 67827- 6790 May, [facility] [id number] [place] [address] 72063- 2025 May, [facility] [id number] [place] [address] 00411- 6444 Mar, [facility] [id number] [place] [address] 37112- 5592 Mar, [facility] [address] [place] [address] 88179- 2892 Mar, [facility] [id number] [place] [address] 82630- 8423 Feb, Acute recurrent maxillary sinusitis J01.01 ; Asthma, unspecified, unspecified status 493.90 ; Seasonal allergies J30.2 and Cat allergies J30.81 [facility] [place] [id number] [place] [address] 11528- 5976 Feb, Upper respiratory tract infection, unspecified upper respiratory infection J06.[address] 42437- 1571 Jan, [facility] [id number] [place] [address] 72715- 9797 Jan, Dysphagia 787.20 and GERD (gastroesophageal reflux disease) 530.81 [facility] [place] [id number] [place] [address] 63305- 4167 Jan, Breast lesion 611.9 [facility] [place] [id number] [place] [address] 53071- 0759 Dec, Breast lesion 611.9 [facility] [id number] [place] [address] 60259- 1808 Dec, Breast lesion 611.9 [facility] [place] [id number] [place] [address] 75779- 8696 Nov, Fatigue 780.79 and Hyperlipidemia 272.4 [facility] [place] [id number] [place] [address] 81895- 7955 Nov, Hypertension 401.9 ; Hyperlipidemia 272.4 ; Chronic frontal sinusitis 473.1 and Fatigue 780.79 [facility] [id number] [place] [address] 62255- 2769 Nov, [facility] [id number] [place] [address] 33098- 0393 Oct, [facility] [place] [facility] [address] [id number] [place] [address]- 8412 Oct, [facility] [place] [facility] [address] [id number] [place] [address]- 8246 September, [facility] [place] [facility] [address] [id number] [place] [address]- 8806 September, [facility] [place] [facility] [address] [id number] [place] [address]- 4716 September, [facility] [place] [facility] [address] [id number] [place] [address]- 2910 September, [facility] [place] [facility] [address] [id number] [place] [address]- 9976 Aug, [facility] [place] [facility] [address] [id number] [place] [address]- 9353 Aug, [facility] [place] [facility] [address] [id number] [place] [address]- 1184 Aug, [facility] [place] [facility] [address] [id number] [place] [address]- 5074 Jul, [facility] [place] [facility] [address] [id number] [place] [address]- 3976 Jul, [facility] [place] [facility] [address] [id number] [place] [address]- 5912 Jul, [facility] [place] [facility] [address] [id number] [place] [address]- 7822 19 Jul, 2014 [facility] [place] [facility] [address] [id number] [place] [address]- 8569 18 Jul, 2014 [facility] [place] [facility] [address] [id number] [place] [address]- 1016 17 Jul, 2014 [facility] [place] [facility] [address] [id number] [place] [address]- 0483 17 Jul, 2014 [facility] [place] [facility] [address] [id number] [address]- 4824 16 Jul, 2014 [facility] [place] [facility] [address] [id number] [place] [address]- 0913 16 Jul, 2014 [facility] [place] [facility] [address] [id number] [place] [address]- 9385 Jul, [facility] [place] [facility] [address] [id number] [place] [address]- 7173 Jul, [facility] [place] [facility] [address] [id number] [place] [address]- 6832 Jul, [facility] [place] [facility] [address] [id number] [place] [address]- 8070 Jul, [facility] [place] [facility] [address] [id number] [place] [address]- 7788 Jul, [facility] [place] [facility] [address] [id number] [place] [address]- 8038 Jul, [facility] [place] [facility] [address] [id number] [place] [address]- 9777 Jun, [facility] [place] [facility] [address] [id number] [place] [address]- 8939 Jun, [facility] [place] [facility] [address] [id number] [place] [address]- 6742 Jun, [facility] [place] [facility] [address] [facility] [id number] [place] [address]- 4554 Jun, [facility] [place] [facility] [address] [id number] [address]- 8221 May, [facility] [place] [facility] [address] [id number] [place] [address]- 5260 May, [facility] [place] [facility] [address] [id number] [place] [address]- 4496 May, [facility] [place] [facility] [address] [id number] [place] [address]- 2090 May, [facility] [place] [facility] [address] [id number] [place] [address]- 6256 Apr, [facility] [place] [facility] [address] [id number] [place] [address]- 3090 Apr, [facility] [place] [facility] [address] [id number] [place] [address]- 6478 Apr, [facility] [place] [facility] [address] [id number] [place] [address]- 2324 Apr, [facility] [place] [facility] [address] [id number] [place] [address]- 0690 Apr, [facility] [place] [facility] [address] [id number] [place] [address]- 6593 Apr, [facility] [place] [facility] [address] [id number] [place] [address]- 1776 Mar, [facility] [place] [facility] [address] [id number] [place] [address]- 8526 Mar, [facility] [place] [facility] [address] [id number] [place] [address]- 2713 Mar, [facility] [place] [facility] [address] [id number] [place] [address]- 3061 Mar, [facility] [place] [facility] [address] [id number] [place] [address]- 6786 Mar, [facility] [place] [facility] [address] [id number] [place] [address]- 2408 Mar, [facility] [place] [facility] [address] [id number] [place] [address]- 5096 Mar, [facility] [place] [facility] [address] [id number] [place] [address]- 3603 Mar, [facility] [place] [facility] [address] [id number] [place] [address]- 0842 Mar, [facility] [place] [facility] [address] [id number] [place] [address]- 4469 Mar, [facility] [place] [facility] [address] [id number] [place] [address]- 9265 Mar, [facility] [place] [facility] [address] [id number] [place] [address]- 8215 Mar, [facility] [place] [facility] [address] [id number] [place] [address]- 5358 Mar, [facility] [place] [facility] [address] [id number] [place] [address]- 2124 Mar, [facility] [place] [facility] [address] [id number] [place] [address]- 9568 Mar, [facility] [place] [facility] [address] [id number] [place] [address]- 6104 Mar, [facility] [place] [facility] [address] [id number] [place] [address]- 6849 Mar, [facility] [place] [facility] [address] [id number] [place] [address]- 2829 Feb, [facility] [place] [facility] [address] [id number] [place] [address]- 1887 Feb, [facility] [place] [facility] [address] [id number] [place] [address]- 8900 Feb, [facility] [place] [facility] [address] [id number] [place] [address]- 7744 Feb, [facility] [place] [facility] [address] [id number] [place] [address]- 5609 Feb, [facility] [place] [facility] [address] [id number] [place] [address]- 3825 Feb, [facility] [place] [facility] [address] [facility] [id number] [place] [address]- 4649 Feb, [facility] [place] [facility] [address] [id number] [place] [address]- 2610 Feb, [facility] [place] [facility] [address] [id number] [place] [address]- 5538 Feb, [facility] [place] [facility] [address] [id number] [place] [address]- 4457 Feb, [facility] [place] [facility] [address] [id number] [place] [address]- 9666 Feb, [facility] [place] [facility] [address] [id number] [place] [address]- 9115 16 Feb, 2014 [facility] [place] [facility] [address] [id number] [place] [address]- 1680 Feb, [facility] [place] [facility] [address] [id number] [place] [address]- 7704 Feb, [facility] [place] [facility] [address] [id number] [place] [address]- 8267 Feb, [facility] [place] [facility] [address] [id number] [place] [address]- 5393 Feb, [facility] [place] [facility] [address] [id number] [place] [address]- 6989 Feb, [facility] [place] [facility] [address] [id number] [place] [address]- 8501 Feb, [facility] [place] [facility] [address] [id number] [place] [address]- 2278 Feb, [facility] [place] [facility] [address] [id number] [place] [address]- [address] 30 Jan, 2013 [facility] [place] [facility] [address] [id number] [place] [address] 30 Jan, 2013 [facility] [place] [facility] [address] [id number] [place] [address] 29 Jan, 2013 [facility] [place] [facility] [address] [id number] [place] [address] 29 Jan, 2013 [facility] [place] [facility] [address] [id number] [place] [address] Jan, [facility] [place] [facility] [address] [id number] [place] [address] Jan, [facility] [place] [facility] [address] [id number] [place] [address] Jan, [facility] [place] [facility] [address] [id number] [place] [address] Jan, [facility] [place] [facility] [address] [id number] [place] [address] Jan, [facility] [place] [facility] [address] [id number] [place] [address] Dec, [facility] [place] [facility] [address] [id number] [place] [address] Dec, [facility] [place] [facility] [address] [id number] [place] [address] Dec, [facility] [place] [facility] [address] [id number] [place] [address] Dec, [facility] [place] [facility] [address] [id number] [place] [address] Dec, [facility] [place] [facility] [address] [id number] [place] [address] Dec, [facility] [place] [facility] [address] [id number] [place] [address] Dec, [facility] [place] [facility] [address] [id number] [place] [address] Dec, [facility] [place] [facility] [address] [id number] [place] [address] Dec, [facility] [place] [facility] [address] [id number] [place] [address] Nov, [facility] [place] [facility] [address] [id number] [place] [address] Nov, [facility] [place] [facility] [address] [id number] [place] [address] Nov, [facility] [place] [facility] [address] [id number] [place] [address] Nov, [facility] [place] [facility] [address] [id number] [place] [address] Nov, [facility] [place] [facility] [address] [id number] [place] [address] Nov, [facility] [place] [facility] [address] [id number] [place] [address] Oct, [facility] [place] [facility] [address] [id number] [place] [address] Oct, [facility] [place] [facility] [address] [id number] [place] [address] Oct, [facility] [place] [facility] [address] [id number] [place] [address] Oct, [facility] [place] [facility] [address] [id number] [place] [address] Oct, [facility] [place] [facility] [address] [id number] [place] [address] Oct, [facility] [place] [facility] [address] [id number] [place] [address] Oct, [facility] [place] [facility] [address] [id number] [place] [address] Oct, [facility] [place] [facility] [address] [id number] [place] [address] Oct, [facility] [place] [facility] [address] [id number] [place] [address] Oct, [facility] [place] [facility] [address] [id number] [place] [address] Oct, [facility] [place] [facility] [address] [id number] [place] [address] Oct, [facility] [place] [facility] [address] [id number] [place] [address] Oct, [facility] [place] [facility] [address] [id number] [place] [address] Oct, [facility] [place] [facility] [address] [id number] [place] [address] [address] September, [facility] [place] [facility] [address] [id number] [place] [address] September, [facility] [place] [facility] [address] [id number] [place] [address] September, [facility] [place] [facility] [address] [id number] [place] [address] September, [facility] [place] [facility] [address] [id number] [place] [address]70 September, [facility] [place] [facility] [address] [id number] [place] [address] 5533 September, [facility] [place] [facility] [address] [id number] [place] [address]451 September, [facility] [place] [facility] [address] [id number] [place] [address] 18[address] September, [facility] [place] [facility] [address] [id number] [place] [address] 0665 September, [facility] [place] [facility] [address] [id number] [place] [address] 0744 September, [facility] [place] [facility] [address] [id number] [place] [address] September, [facility] [place] [facility] [address] [id number] [place] [address] September, [facility] [place] [facility] [address] [id number] [place] [address] September, [facility] [place] [facility] [address] [id number] [place] [address] 6[address] September, [facility] [place] [facility] [address] [id number] [place] [address] September, [facility] [place] [facility] [address] [id number] [place] [address] 4368 September, [facility] [place] [facility] [address] [id number] [place] [address]- 9927 September, [facility] [place] [facility] [address] [id number] [place] [address]- 2[address] September, [facility] [place] [facility] [address] [id number] [place] [address]- 9093 September, [facility] [place] [facility] [address] [id number] [place] [address]- [address] Aug, [facility] [place] [facility] [address] [id number] [place] [address]- 7623 Aug, [facility] [place] [facility] [address] [id number] [place] [address] 5154 Jul, [facility] [place] [facility] [address] [id number] [place] [address]- 6492 Jul, [facility] [place] [facility] [address] [id number] [place] [address]- 0891 Jul, [facility] [place] [facility] [address] [id number] [place] [address]- 4538 Jul, [facility] [place] [facility] [address] [id number] [place] [address]- 7987 Jul, [facility] [place] [facility] [address] [id number] [place] [address]- 0071 Jul, [facility] [place] [facility] [address] [id number] [place] [address]- 4525 Jul, [facility] [place] [facility] [address] [id number] [place] [address]- 5234 Jul, [facility] [place] [facility] [address] [id number] [place] [address]- 3557 Jul, [facility] [place] [facility] [address] [id number] [place] [address]- 3822 Jul, [facility] [place] [facility] [address] [id number] [place] [address]- 6246 Jul, [facility] [place] [facility] [address] [id number] [place] [address]- 4512 Jul, [facility] [place] [facility] [address] [id number] [place] [address]- 0841 Jul, [facility] [place] [facility] [address] [id number] [place] [address]- 8572 Jul, [facility] [place] [facility] [address] [id number] [place] [address]- 1325 10 Jun, 2013 [facility] [place] [facility] [address] [id number] [place] [address]- 0863 10 Jun, 2013 [facility] [place] [facility] [address] [id number] [place] [address]- 8162 Jun, [facility] [place] [facility] [address] [id number] [place] [address]- 5064 Jun, [facility] [place] [facility] [address] [id number] [place] [address]- 3629 May, [facility] [place] [facility] [address] [id number] [place] [address]- 1017 May, [facility] [place] [facility] [address] [id number] [place] [address]- 3951 May, [facility] [place] [facility] [address] [id number] [place] [address]- 0447 May, [facility] [place] [facility] [address] [id number] [place] [address]- 2364 May, [facility] [place] [facility] [address] [id number] [place] [address]- 2467 Mar, [facility] [place] [facility] [address] [id number] [place] [address]- 6355 14 Mar, 2013 [facility] [place] [facility] [address] [id number] [place] [address]- 2915 07 Mar, 2013 [facility] [place] [facility] [address] [id number] [place] [address]- 6000 07 Mar, 2013 [facility] [place] [facility] [address] [id number] [place] [address]- 6160 04 Mar, 2013 [facility] [place] [facility] [address] [id number] [place] [address]- 7974 Mar, [facility] [place] [facility] [address] [id number] [place] [address]- 6790 Feb, [facility] [place] [facility] [address] [id number] [place] [address]- 5190 Feb, [facility] [place] [facility] [address] [id number] [place] [address] Feb, [facility] [place] [facility] [address] [id number] [place] [address]- 1700 Feb, [facility] [place] [facility] [address] [id number] [place] [address]- 1430 Feb, [facility] [place] [facility] [address] [id number] [place] [address]- 7392 Feb, [facility] [place] [facility] [address] [id number] [place] [address]- 4[address] Feb, [facility] [place] [facility] [address] [id number] [place] [address]- 2379 Feb, [facility] [place] [facility] [address] [id number] [place] [address]- 6419 Feb, [facility] [place] [facility] [address] [id number] [place] [address]- 1163 Feb, [facility] [place] [facility] [address] [id number] [place] [address] 4639 Feb, [facility] [address] [id number] [place] [address]- 6059 Feb, [facility] [place] [facility] [address] [id number] [place] [address]- 3650 Jan, [facility] [place] [facility] [address] [id number] [place] [address]- 0278 Jan, [facility] [place] [facility] [address] [id number] [place] [address]- 4742 Dec, [facility] [place] [facility] [address] [id number] [place] [address]- 1441 Dec, [facility] [place] [facility] [address] [id number] [place] [address]- 4608 Nov, [facility] [address] [id number] [place] [address]- 6162 Nov, [facility] [place] [facility] [address] [id number] [place] [address]- 6763 Nov, [facility] [address] [id number] [place] [address]- 8897 Nov, [facility] [place] [facility] [address] [id number] [place] [address]- 5452 Nov, [facility] [place] [facility] [address] [id number] [place] [address]- 7507 Oct, [facility] [place] [facility] [address] [id number] [place] [address] 254 September, [facility] [place] [facility] [address] [id number] [place] [address]- 8962 Aug, [facility] [place] [facility] [address] [id number] [place] [address]- 4991 Jul, [facility] [place] [facility] [address] [id number] [place] [address]- 3357 Jul, [facility] [place] [facility] [address] [id number] [place] [address]- 2903 Jul, [facility] [place] [facility] [address] [id number] [place] [address]- 9749 28 Jun, 2012 [facility] [place] [facility] [address] [id number] [place] [address]- 5206 14 Jun, 2012 [facility] [place] [facility] [address] [id number] [place] [address]- 3014 12 Jun, 2012 [facility] [place] [facility] [address] [id number] [place] [address]- 5089 Jun, [facility] [place] [facility] [address] [id number] [place] [address]- 3911 07 Jun, 2012 [facility] [place] [facility] [address] [id number] [place] [address]- 9544 May, [facility] [address] [id number] [place] [address]- 6135 May, [facility] [place] [facility] [address] [id number] [place] [address]- 4292 Apr, [facility] [place] [facility] [address] [id number] [place] [address]- 3991 Apr, [facility] [place] [facility] [address] [id number] [place] [address]- 8463 15 Mar, 2012 [facility] [place] [facility] [address] [id number] [place] [address]- 5085 Mar, [facility] [place] [facility] [address] [id number] [place] [address]- 3697 Mar, [facility] [place] [facility] [address] [id number] [place] [address]- 4056 Mar, [facility] [place] [facility] [address] [id number] [place] [address]- 1138 05 Mar, 2012 [facility] [place] [facility] [address] [id number] [place] [address]- 2546 Mar, [facility] [place] [facility] [address] [id number] [place] [address]- 0263 Mar, [facility] [place] [facility] [address] [id number] [place] [address]- 1451 Mar, [facility] [place] [facility] [address] [id number] [place] [address]- 2861 Mar, [facility] [place] [facility] [address] [id number] [place] [address]- 4159 Mar, [facility] [place] [facility] [address] [id number] [place] [address] Feb, [facility] [place] [facility] [address] [id number] [place] [address] Feb, [facility] [place] [facility] [address] [id number] [place] [address] Feb, [facility] [place] [facility] [address] [id number] [place] [address]- 7744 Feb, [facility] [place] [facility] [address] [id number] [place] [address]- 7566 Feb, [facility] [place] [facility] [address] [id number] [place] [address]- 2100 Feb, [facility] [place] [facility] [address] [id number] [place] [address]- 0508 Jan, [facility] [place] [facility] [address] [id number] [place] [address]- 4570 Jan, [facility] [place] [facility] [address] [id number] [place] [address]- 7275 Dec, [facility] [place] [facility] [address] [id number] [place] [address]- 7338 Dec, [facility] [place] [facility] [address] [id number] [place] [address]- 4882 Dec, [facility] [place] [facility] [address] [id number] [place] [address]- 2546 Nov, [facility] [address] [id number] [place] [address]- 3021 September, [facility] [address] [id number] [place] [address] 2546 September, [facility] [address] [id number] [place] [address]- 9976 September, [facility] [address] [id number] [place] [address]- 3416 September, [facility] [address] [id number] [place] [address]- 4599 Aug, [facility] [address] [id number] [place] [address]- 6456 Aug, [facility] [address] [id number] [place] [address]- 0187 Aug, [facility] [address] [id number] [place] [address]- 7569 Aug, [facility] [address] [id number] [place] [address]- 1574 Aug, [facility] [address] [id number] [place] [address]- 9792 Jul, [facility] [address] [id number] [place] [address]- 2546 Jul, [facility] [address] [id number] [place] [address]- 2546 Jul, [facility] [place] [facility] [address] [id number] [place] [address]- 0146 29 Jun, 2011 [facility] [address] [id number] [place] [address]- 2546 17 Jun, 2011 [facility] [address] [id number] [place] [address]- 3951 13 Jun, 2011 [facility] [place] [facility] [address] [id number] [place] [address]- 1756 10 Jun, 2011 [facility] [place] [facility] [address] [id number] [place] [address]- 9396 07 Jun, 2011 [facility] [place] [facility] [address] [id number] [place] [address]- 9206 Jun, [facility] [place] [facility] [address] [id number] [place] [address]- 4903 Jun, [facility] [place] [facility] [address] [id number] [place] [address]- 3779 May, [facility] [place] [facility] [address] [id number] [place] [address]- 5006 May, [facility] [place] [facility] [address] [id number] [place] [address]- 2179 May, [facility] [place] [facility] [address] [id number] [place] [address]- 5538 May, [facility] [place] [facility] [address] [id number] [place] [address]- 5186 Apr, [facility] [place] [facility] [address] [id number] [place] [address]- 4342 Apr, [facility] [place] [facility] [address] [id number] [place] [address]- 5110 Mar, [facility] [place] [facility] [address] [id number] [place] [address]- 1656 Mar, [facility] [place] [facility] [address] [id number] [place] [address]- 6098 Mar, [facility] [place] [facility] [address] [id number] [place] [address]- 2123 Nov, [facility] [place] [facility] [address] [id number] [place] [address]- 2620 May, [facility] [place] [facility] [address] [id number] [place] [address]- 0081 23 Apr, 2010 [facility] [address] [id number] [place] [address]- 8806 Apr, [facility] [address] [id number] [place] [address]- 5746 13 Apr, 2010 [facility] [address] [id number] [place] [address]- 4606 Apr, [facility] [address] [id number] [place] [address] 2543 Apr, [facility] [address] [id number] [place] [address]- 5069 18 Mar, 2010 [facility] [address] [id number] [place] [address]- 7289 Mar, [facility] [address] [facility] [id number] [place] [address]- 0569 Feb, [facility] [address] [id number] [place] [address]- 2910 14 Aug, 2009 [facility] [address] [facility] [id number] [place] [address]- 0690 Jul, [facility] [address] [facility] [id number] [place] [address]- 2158 17 Jun, 2009 [facility] [address] [id number] [place] [address]- 9164 Apr, [facility] [address] [id number] [place] [address]- 8501 Apr, [facility] [address] [id number] [place] [address]- 1122 Mar, [facility] [address] [id number] [place] [address]- 2546 Mar, [facility] [address] [id number] [place] [address]- 9993 Feb, [facility] [address] [facility] [id number] [place] [address]- 5306 Dec, [facility] [address] [facility] [id number] [place] [address]- 7106 Oct, IMMUNIZATIONS No Known Immunizations SOCIAL HISTORY Never Assessed REASON FOR VISIT CCM call/med refills PLAN OF CARE VITAL SIGNS MEDICATIONS Medication Instructions Dosage Frequency Start Date End Date Duration Status Metoprolol Succinate ER 50 mg Orally Once a day 1 tablet 24h 90 days Active Pepcid 20 mg Orally 2 times a day 1 tablet at bedtime 12h 90 days Active Carbamazepine 200 mg Orally in the morning and 2 tablets at bedtime 1 tablet 30 days Active RESULTS No Results PROCEDURES No Known procedures INSTRUCTIONS MEDICATIONS ADMINISTERED No Known Medications MEDICAL (GENERAL) HISTORY Type Description Date Medical History hypertension Medical History neuropathy Medical History depression Medical History anxiety Medical History Hyposmolality and/or hyponatremia Surgical History cleaned out left side of sinuses 2013 Surgical History colonscopy 09/03/15 Hospitalization History cellulitis 09/2013 Hospitalization History surgery 2013 Hospitalization History A Fib--[facility] 03/08/2016 Hospitalization History acute chest pain, hypertensive urgency, paroxsysmal htn-[facility] 05/10/16
--- OUTSIDE RECORDS SUMMARY | 2018-09-17 11:36 | XMS REPORT ---
Author Author JORDY [facility] Address [address] [place] [address] Care Team Providers Care Manager Food Safety Name Role Phone DESIREE SPENCE Unavailable PROBLEMS Type Condition ICD9-CM Code IEB06-QR Code Onset Dates Condition Status SNOMED Code Problem Vitamin D deficiency E55.9 Active 07344257 Problem Chronic frontal sinusitis J32.1 Active 97811310 Problem Hyponatremia E87.1 Active 07525057 Problem BMI 40.0-44.9, adult Z68.41 Active 762387976 Problem Seasonal allergies J30.2 Active 420080317 Problem Secondary pulmonary arterial hypertension I27.21 Active 00433725 Problem Other chronic gastritis without hemorrhage K29.50 Active 4297176 Problem Paroxysmal atrial fibrillation I48.0 Active 068167162 Problem Fasciculations of muscle R25.3 Active 06512468 Problem Depression, unspecified depression type F32.9 Active 78800128 Problem Mild intermittent asthma without complication J45.20 Active 001226656 Problem Chronic migraine G43.709 Active 34160912 Problem Primary insomnia F51.01 Active 043008788 Problem Generalized anxiety disorder F41.1 Active 196262924 Problem Elevated alkaline phosphatase level R74.8 Active 527923333 Problem Obstructive sleep apnea G47.33 Active 66564612 Problem Hidradenitis L73.2 Active 94456531 Problem Essential hypertension I10 Active 32512885 Problem Idiopathic peripheral neuropathy G60.9 Active 04410387 Problem Hyperlipidemia E78.5 Active 38497653 ALLERGIES No Information ENCOUNTERS Encounter Location Date Diagnosis [facility] [address], [place] [address] Apr, [facility] [address], [place] [address] 1530 Mar, [facility] [address], [place] [address] 0[address] Mar, [facility] [address], [place] [address] 8[address] Feb, Essential hypertension I10 [facility] [id number] [place] [address] 39416- 6396 Feb, Intertrigo L30.4 and Encounter for immunization Z23 [facility] [id number] [place] [address] 22836- 7520 Feb, [facility] [id number] [place] [address] 57780- 8730 Jan, Essential hypertension I10 [facility] [id number] [place] [address] 01836- 3812 Jan, [facility] [id number] [place] [address] 58247- 9510 Jan, Screening for cervical cancer Z12.4 ; BMI 40.0-44.9, adult Z68.41 ; Screening for breast cancer Z12.31 ; Candidal intertrigo B37.2 and Elevated glucose level R73.09 [facility] [id number] [place] [address] 99821- 6476 Jan, Essential hypertension I10 [facility] [id number] [place] [address] 54536- 0556 Dec, [facility] [id number] [place] [address] 30077- 8382 Dec, [facility] [id number] [place] [address] 95521- 0158 Dec, Essential hypertension I10 [facility] [id number] [place] [address] 17782- 7168 Nov, Essential hypertension I10 [facility] [id number] [place] [address] 43469- 3986 Nov, [facility] [id number] [place] [address] 15719- 5424 Nov, Essential hypertension I10 and BMI 40.0-44.9, adult Z68.41 [facility] [id number] [place] [address] 03665- 7559 Oct, Essential hypertension I10 and Chronic kidney disease, unspecified CKD stage N18.9 [facility] [address] 56996- 7405 Oct, Essential hypertension I10 and Chronic kidney disease, unspecified CKD stage N18.9 [facility] [address] 52975- 1485 Oct, [facility] [address] 06741- 6101 September, Medicare annual wellness visit, initial Z00.00 ; Mild intermittent asthma without complication J45.20 ; Generalized anxiety disorder F41.1 ; Depression, unspecified depression type F32.9 ; Paroxysmal atrial fibrillation I48.0 ; Obstructive sleep apnea G47.33 ; Hyponatremia E87.1 ; Need for hepatitis C screening test Z11.59 ; Encounter for immunization Z23 ; Secondary pulmonary arterial hypertension I27.21 and BMI 40.0-44.9, adult Z68.41 [facility] [id number] [place] [address] 40513- 7387 Aug, Essential hypertension I10 [facility] [id number] [place] [address] 61871 -2524 Jun, Dysuria R30.0 ; UTI symptoms R39.9 and Candidiasis of breast B37.89 [facility] [id number] [place] [address] 66461- 6251 Jun, Hyponatremia E87.1 [facility] [address] 36068- 0943 Jun, Hyponatremia E87.1 [facility] [id number] [place] [address] 30940- 7405 Jun, Hyponatremia E87.1 [facility] [id number] [place] [address] 68415- 3279 Jun, [facility] [id number] [place] [address] 81011- 7891 May, Hyponatremia E87.1 [facility] [id number] [place] [address] 81574- 9067 May, Hyponatremia E87.1 [facility] [id number] [place] [address] 25701- 4003 May, Hyponatremia E87.1 [facility] [id number] [place] [address] 75639- 0084 May, Hyponatremia E87.1 [facility] [id number] [place] [address] 92001- 6978 Apr, Hyponatremia E87.1 ; Fasciculations of muscle R25.3 and Hyperlipidemia E78.5 [facility] [id number] [place] [address] 76159- 1088 Apr, Cough R05 ; Hyponatremia E87.1 ; Fasciculations of muscle R25.3 ; Primary insomnia F51.01 ; Essential hypertension I10 ; Hyperlipidemia E78.5 ; Screening for breast cancer Z12.31 and BMI 40.0-44.9, adult Z68.41 [facility] [id number] [place] [address] 77313- 4581 Apr, Essential hypertension I10 [facility] [id number] [place] [address] 18923- 8263 Mar, [facility] [id number] [place] [address] 82941- 1440 Mar, [facility] [id number] [place] [address] 69359- 4170 Mar, [facility] [id number] [place] [address] 02433- 2309 Feb, [facility] [address], [place] [address]- 6491 Jan, [facility] [id number] [place] [address] 77333- 0548 14 Dec, 2016 Essential hypertension I10 [facility] [id number] [place] [address] 65436- 3038 Dec, [facility] [id number] [place] [address] 32875- 3239 Dec, Essential hypertension I10 [facility] [id number] [place] [address] 08900- 2378 Nov, [facility] [id number] [place] [address] 64782- 3802 Oct, Essential hypertension I10 [facility] [id number] [place] [address] 40130- 6724 Oct, Essential hypertension I10 [facility] [address], [place] [address]- 1534 Oct, [facility] [id number] [place] [address] 14014- 9270 September, [facility] [id number] [place] [address] 46620- 2164 September, Essential hypertension I10 [facility] [address], [place] [address]- 0197 September, [facility] [address], [place] [address]- 9695 September, Essential hypertension I10 ; Hyperlipidemia E78.5 and Hyponatremia E87.1 [facility] [address], [place] [address]- 2534 September, Mild intermittent asthma without complication J45.20 ; Essential hypertension I10 ; Hyperlipidemia E78.5 ; Hyponatremia E87.1 and Dysuria R30.0 [facility] [id number] [place] [address] 80210- 0947 September, Other chronic gastritis without hemorrhage K29.50 ; Paroxysmal atrial fibrillation I48.0 and Essential hypertension I10 [facility] [id number] [place] [address] 82072- 1232 Aug, [facility] [id number] [place] [address] 68049- 7369 Jul, [facility] [address] 35666- 4327 14 Jun, 2016 [facility] [address] 23382 -4055 Jun, Dysuria R30.0 and Acute cystitis with hematuria N30.01 [facility] [id number] [place] [address] 09755- 4706 Jun, Essential hypertension I10 [facility] [address] 76164- 4251 May, Paroxysmal atrial fibrillation I48.0 [facility] [id number] [place] [address] 53980- 6370 May, Other chronic gastritis without hemorrhage K29.50 [facility] [id number] [place] [address] 52105- 4323 May, [facility] [id number] [place] [address] 32113- 0825 May, Hyponatremia E87.1 ; Essential hypertension I10 and Other chronic gastritis without hemorrhage K29.50 [facility] [id number] [place] [address] 73335- 8528 May, Hyponatremia E87.1 [facility] [id number] [place] [address] 18036- 7736 May, Hyponatremia E87.1 [facility] [address] [id number] May, [facility] [id number] [place] [address] 43629- 2830 16 Apr, 2016 [facility] [address] 89081- 0534 Apr, [facility] [id number] [place] [address] 14270- 8915 Mar, Essential hypertension I10 and Candidal intertrigo B37.2 [facility] [address] 66024- 8504 Mar, Hyponatremia E87.1 [facility] [address] 06353- 1551 14 Mar, 2016 [facility] [id number] [place] [address] 33323- 1635 Mar, Hyponatremia E87.1 [facility] [address] 14978- 8347 Mar, Essential hypertension I10 ; Hyponatremia E87.1 ; Slurred speech R47.81 ; Paroxysmal atrial fibrillation I48.0 and Elevated blood sugar R73.9 [facility] [id number] [place] [address] 56674- 2295 Mar, [facility] [id number] [place] [address] 11632- 2053 Mar, [facility] [id number] [place] [address] 11860- 3151 Feb, [facility] [id number] [place] [address] 26911- 9520 15 Jan, 2016 [facility] [address] 29969- 3050 Dec, [facility] [id number] [place] [address] 17630 -2510 Nov, Scratched by cat, initial encounter W55.03XA and Other injury of unspecified body region T14.8 [facility] [address], [place] [address]- 1472 Nov, [facility] [id number] [place] [address] 17389- 8864 Oct, [facility] [address], [place] [address]- 4804 September, [facility] [id number] [place] [address] 29563- 2566 Aug, Elevated alkaline phosphatase level R74.8 [facility] [id number] [place] [address] 77404- 4142 Jul, [facility] [id number] [place] [address] 72476- 8789 Jun, Essential hypertension I10 and Bright red blood per rectum K62.5 [facility] [id number] [place] [address] 52203- 6161 Jun, Elevated alkaline phosphatase level R74.8 [facility] [id number] [place] [address] 92073- 5783 Jun, [facility] [id number] [place] [address] 98917- 8308 May, Essential hypertension I10 ; Hyperlipidemia E78.5 and Well woman exam (no gynecological exam) Z00.00 [facility] [address], [place] [address]- 4296 May, [facility] [address], [place] [address]- 6177 May, [facility] [id number] [place] [address] 85830- 2534 Mar, [facility] [address], [place] [address]- 7143 Mar, [facility] [address], [place] [address]- 0444 Mar, [facility] [id number] [place] [address] 26158- 1911 Feb, Acute recurrent maxillary sinusitis J01.01 ; Asthma, unspecified, unspecified status 493.90 ; Seasonal allergies J30.2 and Cat allergies J30.81 [facility] [id number] [place] [address] 17517- 9391 Feb, Upper respiratory tract infection, unspecified upper respiratory infection J06.9 [facility] [id number] [place] [address] 14629- 6266 Jan, [facility] [address] 645440- 5570 Jan, Dysphagia 787.20 and GERD (gastroesophageal reflux disease) 530.81 [facility] [id number] [place] [address] 83992- 2403 Jan, Breast lesion 611.9 [facility] [id number] [place] [address] 933405- 2453 Dec, Breast lesion 611.9 [facility] [id number] [place] [address] 89324- 2745 Dec, Breast lesion 611.9 [facility] [id number] [place] [address] 21242- 0178 Nov, Fatigue 780.79 and Hyperlipidemia 272.4 [facility] [id number] [place] [address] 21690- 5885 Nov, Hypertension 401.9 ; Hyperlipidemia 272.4 ; Chronic frontal sinusitis 473.1 and Fatigue 780.79 [facility] [id number] [place] [address] 28277- 4293 Nov, [facility] [id number] [place] [address] 05429170- 4933 Oct, [facility] [id number] [place] [address] 92362- 7157 Oct, [facility] [place] [facility] [address] [id number] [place] [address]- 9615 September, [facility] [place] [facility] [address] [id number] [place] [address]- 4839 September, [facility] [place] [facility] [address] [id number] [place] [address]- 5950 September, [facility] [place] [facility] [address] [id number] [place] [address]- 2681 September, [facility] [place] [facility] [address] [id number] [place] [address]- 3771 Aug, [facility] [place] [facility] [address] [id number] [place] [address]- 7973 14 Aug, 2014 [facility] [place] [facility] [address] [id number] [place] [address]- 7218 Aug, [facility] [place] [facility] [address] [id number] [place] [address]- 1181 20 Jul, 2014 [facility] [place] [facility] [address] [id number] [place] [address]- 5895 20 Jul, 2014 [facility] [place] [facility] [address] [id number] [place] [address]- 9928 19 Jul, 2014 [facility] [place] [facility] [address] [id number] [place] [address]- 5947 19 Jul, 2014 [facility] [place] [facility] [address] [id number] [place] [address]- 0801 18 Jul, 2014 [facility] [place] [facility] [address] [id number] [place] [address]- 3996 17 Jul, 2014 [facility] [place] [facility] [address] [id number] [place] [address]- 2480 17 Jul, 2014 [facility] [place] [facility] [address] [id number] [place] [address]- 7688 16 Jul, 2014 [facility] [place] [facility] [address] [id number] [address]- 6556 Jul, [facility] [place] [facility] [address] [id number] [place] [address]- 4981 Jul, [facility] [place] [facility] [address] [id number] [place] [address]- 7328 Jul, [facility] [place] [facility] [address] [facility] [id number] [place] [address]- 6815 Jul, [facility] [place] [facility] [address] [id number] [place] [address]- 6851 Jul, [facility] [place] [facility] [address] [id number] [place] [address]- 2333 Jul, [facility] [place] [facility] [address] [facility] [id number] [place] [address]- 0662 Jul, [facility] [place] [facility] [address] [facility] [id number] [place] [address]- 7217 Jun, [facility] [place] [facility] [address] [id number] [place] [address]- 9106 Jun, [facility] [place] [facility] [address] [id number] [place] [address]- 2359 Jun, [facility] [place] [facility] [address] [facility] [id number] [place] [address]- 1203 Jun, [facility] [place] [facility] [address] [facility] [id number], [place] [address]- 5662 May, [facility] [place] [facility] [address] [id number], [place] [address]- 9724 May, [facility] [place] [facility] [address] [id number], [place] [address]- 4362 May, [facility] [place] [facility] [address] [facility] [id number], [place] [address]- 2483 May, [facility] [place] [facility] [address] [facility] [id number] [place] [address]- 7160 Apr, [facility] [place] [facility] [address] [id number] [place] [address]- 7547 18 Apr, 2014 [facility] [place] [facility] [address] [id number] [place] [address]- 6115 Apr, [facility] [place] [facility] [address] [id number] [place] [address]- 4553 Apr, [facility] [place] [facility] [address] [id number] [place] 4238 Apr, [facility] [place] [facility] [address] [id number] [place] [address]- 8483 Apr, [facility] [place] [facility] [address] [id number] [place] [address]- 8620 Mar, [facility] [place] [facility] [address] [id number] [place] [address]- 9908 Mar, [facility] [place] [facility] [address] [id number] [place] [address]- 7320 Mar, [facility] [place] [facility] [address] [id number] [place] [address]- 7425 Mar, [facility] [place] [facility] [address] [id number] [place] [address]- 4639 Mar, [facility] [place] [facility] [address] [facility] [id number] [place] [address]- 6023 Mar, [facility] [place] [facility] [address] [id number] [place] [address]- 2107 Mar, [facility] [place] [facility] [address] [id number] [place] [address]- 3372 Mar, [facility] [place] [facility] [address] [id number] [place] [address]- 3431 Mar, [facility] [place] [facility] [address] [id number] [place] [address]- 1852 Mar, [facility] [place] [facility] [address] [id number] [place] [address]- 9312 Mar, [facility] [place] [facility] [address] [id number] [place] [address]- 3991 Mar, [facility] [place] [facility] [address] [id number] [place] [address]- 9746 Mar, [facility] [place] [facility] [address] [id number] [place] [address]- 3319 Mar, [facility] [place] [facility] [address] [id number] [place] [address]- 3068 Mar, [facility] [place] [facility] [address] [id number] [place] [address]- 1541 Mar, [facility] [place] [facility] [address] [id number] [place] [address]- 6630 Mar, [facility] [place] [facility] [address] [id number] [place] [address]- 1507 Feb, [facility] [place] [facility] [address] [id number] [place] [address]- 5930 Feb, [facility] [place] [facility] [address] [id number] [place] [address]- 7099 Feb, [facility] [place] [facility] [address] [id number], [place] [address]- 7592 Feb, [facility] [place] [facility] [address] [id number], [place] [address]- 5497 Feb, [facility] [place] [facility] [address] [id number], [place] [address]- 3890 Feb, [facility] [place] [facility] [address] [id number] [place] [address]- 2071 Feb, [facility] [place] [facility] [address] [id number] [place] [address]- 1267 Feb, [facility] [place] [facility] [address] [id number], [place] [address]- 2804 Feb, [facility] [place] [facility] [address] [id number] [place] [address]- 7081 28 Feb, 2014 [facility] [place] [facility] [address] [id number] [place] [address]- 7052 Feb, [facility] [place] [facility] [address] [id number] [place] [address]- 3586 16 Feb, 2014 [facility] [place] [facility] [address] [id number] [place] [address] Feb, [facility] [place] [facility] [address] [id number] [place] [address] Feb, [facility] [place] [facility] [address] [id number] [place] [address] Feb, [facility] [place] [facility] [address] [id number] [place] [address] Feb, [facility] [place] [facility] [address] [id number] [place] [address] Feb, [facility] [place] [facility] [address] [id number] [place] [address] Feb, [facility] [place] [facility] [address] [id number] [place] [address] Feb, [facility] [place] [facility] [address] [id number] [place] [address] 30 Jan, 2013 [facility] [place] [facility] [address] [id number] [place] [address] 30 Jan, 2013 [facility] [place] [facility] [address] [id number] [place] [address] 29 Jan, 2013 [facility] [place] [facility] [address] [id number] [place] [address]46 29 Jan, 2013 [facility] [place] [facility] [address] [id number] [place] [address] 24 Jan, 2013 [facility] [place] [facility] [address] [id number] [place] [address] 24 Jan, 2014 [facility] [place] [facility] [address] [id number] [place] [address] Jan, [facility] [place] [facility] [address] [id number] [place] [address] Jan, [facility] [place] [facility] [address] [id number] [place] [address] Jan, [facility] [place] [facility] [address] [id number] [place] [address] Dec, [facility] [place] [facility] [address] [id number] [place] [address] Dec, [facility] [place] [facility] [address] [id number] [place] [address] Dec, [facility] [place] [facility] [address] [id number] [place] [address] Dec, [facility] [place] [facility] [address] [id number] [place] [address] Dec, [facility] [place] [facility] [address] [id number] [place] [address] Dec, [facility] [place] [facility] [address] [id number] [place] [address] Dec, [facility] [place] [facility] [address] [id number] [place] [address] Dec, [facility] [place] [facility] [address] [id number] [place] [address]95 Dec, [facility] [place] [facility] [address] [id number] [place] [address] Nov, [facility] [place] [facility] [address] [id number] [place] [address] Nov, [facility] [place] [facility] [address] [id number] [place] [address] Nov, [facility] [place] [facility] [address] [id number] [place] [address] Nov, [facility] [place] [facility] [address] [id number] [place] [address] Nov, [facility] [place] [facility] [address] [id number] [place] [address] Nov, [facility] [place] [facility] [address] [id number] [place] [address] Oct, [facility] [place] [facility] [address] [id number] [place] [address] Oct, [facility] [place] [facility] [address] [address] [id number] [place] [address] Oct, [facility] [place] [facility] [address] [id number] [place] [address] Oct, [facility] [place] [facility] [address] [id number] [place] [address] 8070 Oct, [facility] [place] [facility] [address] [id number] [place] [address] 1807 Oct, [facility] [place] [facility] [address] [id number] [place] [address] 6[address] Oct, [facility] [place] [facility] [address] [id number] [place] [address] 2298 Oct, [facility] [place] [facility] [address] [id number] [place] [address] 8[address] Oct, [facility] [place] [facility] [address] [id number] [place] [address] 4758 Oct, [facility] [place] [facility] [address] [id number] [place] [address] 9079 Oct, [facility] [place] [facility] [address] [id number] [place] [address] 4250 Oct, [facility] [place] [facility] [address] [id number] [place] [address]- 6310 Oct, [facility] [place] [facility] [address] [id number] [place] [address] 9157 Oct, [facility] [address] [id number] [place] [address] 47[address] September, [facility] [address] [id number] [place] [address]- 2186 September, [facility] [address] [id number] [place] [address]- 8524 September, [facility] [address] [id number] [place] [address]- 5251 September, [facility] [address] [id number] [place] [address] September, [facility] [address] [id number] [place] [address]- 9797 September, [facility] [address] [id number] [place] [address]- 9358 September, [facility] [address] [id number] [place] [address]- 1347 September, [facility] [address] [id number] [place] [address]- 0687 September, [facility] [address] [id number] [place] [address]- 6594 September, [facility] [address] [id number] [place] [address]- 3571 September, [facility] [address] [id number] [place] [address]- 7471 September, [facility] [place] [facility] [address] [id number] [place] [address] September, [facility] [address] [id number] [place] [address]- 6103 September, [facility] [address] [id number] [place] [address]- 9391 September, [facility] [place] [facility] [address] [id number] [place] [address]- 6246 September, [facility] [place] [facility] [address] [id number] [place] [address]- 7526 September, [facility] [place] [facility] [address] [id number] [place] [address]- 7065 September, [facility] [place] [facility] [address] [id number] [place] [address]- 9389 September, [facility] [place] [facility] [address] [id number] [place] [address]- 5120 Aug, [facility] [place] [facility] [address] [id number] [place] [address]- 7595 Aug, [facility] [place] [facility] [address] [id number] [place] [address]- 2971 Jul, [facility] [place] [facility] [address] [id number] [place] [address]- 7023 Jul, [facility] [place] [facility] [address] [id number] [place] [address]- 1464 Jul, [facility] [place] [facility] [address] [id number] [place] [address]- 6839 Jul, [facility] [place] [facility] [address] [id number] [place] [address]- 5583 Jul, [facility] [place] [facility] [address] [id number] [place] [address]- 9465 Jul, [facility] [place] [facility] [address] [id number] [place] [address]- 8695 Jul, [facility] [place] [facility] [address] [id number] [place] [address]- 3582 Jul, [facility] [place] [facility] [address] [id number] [place] [address]- 3437 Jul, [facility] [place] [facility] [address] [id number] [place] [address]- 7555 Jul, [facility] [place] [facility] [address] [id number] [place] [address]- 3696 Jul, [facility] [place] [facility] [address] [id number] [place] [address]- 3386 14 Jul, 2013 [facility] [place] [facility] [address] [id number] [place] [address]- 0326 Jul, [facility] [place] [facility] [address] [id number] [place] [address]- 1814 07 Jul, 2013 [facility] [place] [facility] [address] [id number] [place] [address]- 1170 Jun, [facility] [place] [facility] [address] [id number] [place] [address]- 9659 Jun, [facility] [place] [facility] [address] [id number] [place] [address]- 7827 Jun, [facility] [place] [facility] [address] [id number] [place] [address]- 1344 Jun, [facility] [place] [facility] [address] [id number] [place] [address]- 9510 May, [facility] [place] [facility] [address] [id number] [place] [address]- 4258 May, [facility] [place] [facility] [address] [id number] [place] [address]- 0569 May, [facility] [place] [facility] [address] [id number] [place] [address]- 1999 May, [facility] [place] [facility] [address] [id number] [place] [address]- 3944 May, [facility] [place] [facility] [address] [id number] [place] [address]- 2945 Mar, [facility] [place] [facility] [address] [id number] [place] [address]- 2731 Mar, [facility] [place] [facility] [address] [id number] [place] [address]- 6383 07 Mar, 2012 [facility] [place] [facility] [address] [id number] [place] [address]- 8076 Mar, 2012 [facility] [place] [facility] [address] [id number] [place] [address]- 1238 Mar, [facility] [place] [facility] [address] [id number] [place] [address]- 8501 Mar, [facility] [place] [facility] [address] [id number] [place] [address]- 4303 Feb, [facility] [place] [facility] [address] [id number] [place] [address]- 3423 Feb, [facility] [place] [facility] [address] [id number] [place] [address]- 8064 Feb, [facility] [place] [facility] [address] [id number] [place] [address]- 3357 Feb, [facility] [place] [facility] [address] [id number] [place] [address]- 1466 Feb, [facility] [place] [facility] [address] [id number] [place] [address]- 0182 Feb, [facility] [place] [facility] [address] [id number] [place] [address]- 9606 Feb, [facility] [place] [facility] [address] [id number] [place] [address]- 0511 Feb, [facility] [place] [facility] [address] [id number] [place] [address]- 7938 Feb, [facility] [place] [facility] [address] [id number] [place] [address]- 4004 Feb, [facility] [place] [facility] [address] [id number] [place] [address]- 1094 Feb, [facility] [place] [facility] [address] [id number] [place] [address]- 1556 Feb, [facility] [address] [id number] [place] [address]- 2024 Jan, [facility] [place] [facility] [address] [id number] [place] [address]- 2546 Jan, [facility] [place] [facility] [address] [id number] [place] [address] 2546 Dec, [facility] [place] [facility] [address] [id number] [place] [address]- 8880 Dec, [facility] [place] [facility] [address] [id number] [place] [address]- 5997 Nov, [facility] [place] [facility] [address] [id number] [place] [address]- 7629 Nov, [facility] [place] [facility] [address] [id number] [place] [address]- 7094 Nov, [facility] [place] [facility] [address] [id number] [place] [address]- 2664 Nov, [facility] [place] [facility] [address] [id number] [place] [address]- 5503 Nov, [facility] [place] [facility] [address] [id number] [place] [address]- 3479 Oct, [facility] [place] [facility] [address] [id number] [place] [address]- 9891 September, [facility] [place] [facility] [address] [id number] [place] [address]- 2543 Aug, [facility] [place] [facility] [address] [id number] [place] [address]- 2549 Jul, [facility] [place] [facility] [address] [id number] [place] [address]- 2542 Jul, [facility] [place] [facility] [address] [id number] [place] [address]- 2546 Jul, [facility] [place] [facility] [address] [id number] [place] [address]- 6223 28 Jun, 2012 [facility] [address] [id number] [place] [address]- 9586 14 Jun, 2012 [facility] [place] [facility] [address] [id number] [place] [address]- 0696 12 Jun, 2012 [facility] [address] [id number] [place] [address]- 1476 11 Jun, 2012 [facility] [place] [facility] [address] [id number] [place] [address]- 2543 07 Jun, 2012 [facility] [place] [facility] [address] [id number] [place] [address]- 1596 May, [facility] [address] [id number] [place] [address]- 6558 May, [facility] [address] [id number] [place] [address]- 1777 Apr, [facility] [address] [id number] [place] [address]- 6632 Apr, [facility] [address] [facility] [id number] [place] [address]- 1024 Mar, [facility] [address] [facility] [id number] [place] [address]- 1214 Mar, [facility] [place] [facility] [address] [id number] [place] [address]- 6226 Mar, [facility] [place] [facility] [address] [id number] [place] [address]- 7313 Mar, [facility] [place] [facility] [address] [id number] [place] [address]- 2338 Mar, [facility] [place] [facility] [address] [id number] [place] [address]- 2540 Mar, [facility] [place] [facility] [address] [id number] [place] [address]- 7343 Mar, [facility] [place] [facility] [address] [id number] [place] [address]- 8655 Mar, [facility] [place] [facility] [address] [id number] [place] [address]- 3177 Mar, [facility] [place] [facility] [address] [facility] [id number] [place] [address]- 0275 Mar, [facility] [place] [facility] [address] [id number] [place] [address]- 2102 Feb, [facility] [place] [facility] [address] [id number] [place] [address]- 1877 Feb, [facility] [place] [facility] [address] [id number] [place] [address]- 8300 Feb, [facility] [place] [facility] [address] [id number] [place] [address]- 9057 Feb, [facility] [place] [facility] [address] [id number] [place] [address]- 0897 Feb, [facility] [place] [facility] [address] [id number] [place] [address]- 4578 Feb, [facility] [place] [facility] [address] [facility] [id number], [place] [address]- 3255 Jan, [facility] [place] [facility] [address] [id number], [place] [address]- 8835 Jan, [facility] [place] [facility] [address] [id number], [place] [address]- 8691 Dec, [facility] [place] [facility] [address] [id number] [place] [address]- 3624 Dec, [facility] [place] [facility] [address] [facility] [id number], [place] [address]- 0556 Dec, [facility] [place] [facility] [address] [facility] [id number], [place] [address]- 6397 Nov, [facility] [place] [facility] [address] [id number] [place] [address]- 7434 September, [facility] [address] [id number] [place] [address]- 9833 September, [facility] [place] [facility] [address] [id number] [place] [address]- 2396 September, [facility] [address] [id number] [place] [address]- 1331 September, [facility] [place] [facility] [address] [id number] [place] [address]- 4953 Aug, [facility] [place] [facility] [address] [id number] [place] [address]- 6433 Aug, [facility] [place] [facility] [address] [id number] [place] [address]- 9025 Aug, [facility] [address] [id number] [place] [address]- 5889 Aug, [facility] [place] [facility] [address] [id number] [place] [address]- 2053 05 Aug, 2011 [facility] [place] [facility] [address] [id number] [place] [address]- 0622 Jul, [facility] [place] [facility] [address] [facility] [id number] [place] [address]- 3875 Jul, [facility] [place] [facility] [address] [id number] [place] [address]- 2390 Jul, [facility] [place] [facility] [address] [id number] [place] [address]- 1433 29 Jun, 2011 [facility] [place] [facility] [address] [id number] [place] [address]- 1153 17 Jun, 2011 [facility] [place] [facility] [address] [id number] [place] [address]- 5416 13 Jun, 2011 [facility] [place] [facility] [address] [facility] [id number] [place] [address]- 6450 10 Jun, 2011 [facility] [address] [id number] [place] [address]- 0979 07 Jun, 2011 [facility] [place] [facility] [address] [id number] [place] [address]- 9586 Jun, [facility] [place] [facility] [address] [id number] [place] [address]- 5731 Jun, [facility] [place] [facility] [address] [id number] [place] [address]- 0363 24 May, 2011 [facility] [address] [id number] [place] [address]- 7783 May, [facility] [address] [id number] [place] [address]- 8318 May, [facility] [place] [facility] [address] [id number] [place] [address]- 9409 May, [facility] [address] [id number] [place] [address]- 7265 Apr, [facility] [place] [facility] [address] [id number] [place] [address]- 1390 Apr, [facility] [place] [facility] [address] [id number] [place] [address]- 7661 Mar, [facility] [place] [facility] [address] [id number], [place] [address]- 7470 Mar, [facility] [place] [facility] [address] [id number], [place] [address]- 0152 Mar, [facility] [place] [facility] [address] [id number] [place] [address]- 0296 Nov, [facility] [place] [facility] [address] [id number], [place] [address]- 8917 13 May, 2010 [facility] [place] [facility] [address] [id number] [place] [address]- 2979 23 Apr, 2010 [facility] [place] [facility] [address] [id number] [place] [address]- 3915 13 Apr, 2010 [facility] [address] [id number] [place] [address]- 1136 13 Apr, 2010 [facility] [place] [facility] [address] [id number] [place] [address]- 1376 03 Apr, 2010 [facility] [place] [facility] [address] [id number] [place] [address]- 7676 Apr, [facility] [place] [facility] [address] [id number] [place] [address] 2546 18 Mar, 2010 [facility] [place] [facility] [address] [id number] [place] [address]- 5899 08 Mar, 2010 [facility] [place] [facility] [address] [id number] [place] [address]- 2618 Feb, [facility] [place] [facility] [address] [id number] [place] [address]- 6283 14 Aug, 2009 [facility] [place] [facility] [address] [id number] [place] [address]- 8282 Jul, [facility] [place] [facility] [address] [id number] [place] [address]- 6934 17 Jun, 2009 [facility] [place] [facility] [address] [facility] [id number] [place] [address]- 1819 30 Apr, 2009 [facility] [place] [facility] [address] [id number] [place] [address]- 1106 Apr, [facility] [place] [facility] [address] [id number], [place] [address]- 7607 Mar, [facility] [place] [facility] [address] [id number] [place] [address]- 2249 Mar, [facility] [place] [facility] [address] [id number] [place] [address]- 0846 Feb, [facility] [place] [facility] [address] [id number], [place] [address]- 0511 Dec, [facility] [address] [facility] [id number] [place] [address]- 0255 Oct, IMMUNIZATIONS No Known Immunizations SOCIAL HISTORY Never Assessed REASON FOR VISIT [facility] call PLAN OF CARE VITAL SIGNS MEDICATIONS Unknown [...] Hospitalization History surgery 2013 Hospitalization History A Fib--[facility] 03/08/2016 Hospitalization History acute chest pain, hypertensive urgency, paroxsysmal htn-[facility] 05/10/16
--- OUTSIDE RECORDS SUMMARY | 2018-09-17 11:37 | XMS REPORT ---
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 Name Role Phone DESIREE SPENCE Unavailable PROBLEMS Type Condition ICD9-CM Code BBV95-RH Code Onset Dates Condition Status SNOMED Code Problem Vitamin D deficiency E55.9 Active 32671231 Problem Chronic frontal sinusitis J32.1 Active 02251841 Problem Hyponatremia E87.1 Active 29478167 Problem BMI 40.0-44.9, adult Z68.41 Active 620689639 Problem Seasonal allergies J30.2 Active 365037097 Problem Secondary pulmonary arterial hypertension I27.21 Active 93844546 Problem Other chronic gastritis without hemorrhage K29.50 Active 0936624 Problem Paroxysmal atrial fibrillation I48.0 Active 356967417 Problem Fasciculations of muscle R25.3 Active 55987614 Problem Depression, unspecified depression type F32.9 Active 29740664 Problem Mild intermittent asthma without complication J45.20 Active 631299206 Problem Chronic migraine G43.709 Active 38219320 Problem Primary insomnia F51.01 Active 941135312 Problem Generalized anxiety disorder F41.1 Active 681453992 Problem Elevated alkaline phosphatase level R74.8 Active 786787507 Problem Obstructive sleep apnea G47.33 Active 60967605 Problem Hidradenitis L73.2 Active 15770884 Problem Essential hypertension I10 Active 73712723 Problem Idiopathic peripheral neuropathy G60.9 Active 36699699 Problem Hyperlipidemia E78.5 Active 36526930 ALLERGIES No Information ENCOUNTERS Encounter Location Date Diagnosis [facility] [address], [place] [address] Apr, [facility] [address], [place] [address] 08 Mar, 2018 [facility] [address], [place] [address] 9942 Feb, Essential hypertension I10 [facility] [address], [place] [address] 101[address] Feb, Intertrigo L30.4 and Encounter for immunization Z23 [facility] [address] [address] 14[address] Feb, [facility] [id number] [place] [address] 65188- 8417 Jan, Essential hypertension I10 [facility] [id number] [place] [address] 11279- 2201 26 Jan, 2018 [facility] [id number] [place] [address] 95544- 4197 21 Jan, 2018 Screening for cervical cancer Z12.4 ; BMI 40.0-44.9, adult Z68.41 ; Screening for breast cancer Z12.31 ; Candidal intertrigo B37.2 and Elevated glucose level R73.09 [facility] [address] [address] 97[address] Jan, Essential hypertension I10 [facility] [id number] [place] [address] 15133- 1647 Dec, [facility] [address] [address] 4106 Dec, [facility] [address] [address]- 3125 Dec, Essential hypertension I10 [facility] [address], [place] [address]- 8162 Nov, Essential hypertension I10 [facility] [address] [address]- 4635 Nov, [facility] [address], [place] [address]- 8091 Nov, Essential hypertension I10 and BMI 40.0-44.9, adult Z68.41 [facility] [id number] [place] [address] 66197- 2975 Oct, Essential hypertension I10 and Chronic kidney disease, unspecified CKD stage N18.9 [facility] [id number] [place] [address] 52202- 8394 Oct, Essential hypertension I10 and Chronic kidney disease, unspecified CKD stage N18.9 [facility] [address] 89397- 6713 Oct, [facility] [facility] [address] [address]84- 7590 September, Medicare annual wellness visit, initial Z00.00 ; Mild intermittent asthma without complication J45.20 ; Generalized anxiety disorder F41.1 ; Depression, unspecified depression type F32.9 ; Paroxysmal atrial fibrillation I48.0 ; Obstructive sleep apnea G47.33 ; Hyponatremia E87.1 ; Need for hepatitis C screening test Z11.59 ; Encounter for immunization Z23 ; Secondary pulmonary arterial hypertension I27.21 and BMI 40.0-44.9, adult Z68.41 [facility] [facility] [address] [address]- 6551 Aug, Essential hypertension I10 [facility] [id number] [place] [address] 50280 -4423 Jun, Dysuria R30.0 ; UTI symptoms R39.9 and Candidiasis of breast B37.89 [facility] [id number] [place] [address] 84313- 6538 Jun, Hyponatremia E87.1 [facility] [address] 58093- 6565 Jun, Hyponatremia E87.1 [facility] [id number] [place] [address] 15828- 1552 Jun, Hyponatremia E87.1 [facility] [id number] [place] [address] 45954- 4707 Jun, [facility] [id number] [place] [address] 58243- 1207 May, Hyponatremia E87.1 [facility] [id number] [place] [address] 67624- 4793 May, Hyponatremia E87.1 [facility] [id number] [place] [address] 56260- 1256 May, Hyponatremia E87.1 [facility] [id number] [place] [address] 85386- 5763 May, Hyponatremia E87.1 [facility] [id number] [place] [address] 95240- 9127 Apr, Hyponatremia E87.1 ; Fasciculations of muscle R25.3 and Hyperlipidemia E78.5 [facility] [facility] [id number] [place] [address] 88838- 1524 Apr, Cough R05 ; Hyponatremia E87.1 ; Fasciculations of muscle R25.3 ; Primary insomnia F51.01 ; Essential hypertension I10 ; Hyperlipidemia E78.5 ; Screening for breast cancer Z12.31 and BMI 40.0-44.9, adult Z68.41 [facility] [id number] [place] [address] 90280- 1354 Apr, Essential hypertension I10 [facility] [id number] [place] [address] 27840- 1165 Mar, [facility] [id number] [place] [address] 23942- 5185 Mar, [facility] [id number] [place] [address] 65549- 8060 Mar, [facility] [id number] [place] [address] 28501- 0141 Feb, [facility] [id number] [place] [address] 32961- 3527 Jan, [facility] [address], [place] [address]- 2560 Dec, Essential hypertension I10 [facility] [address], [place] [address]- 0272 Dec, [facility] [address] [address]- 5551 Dec, Essential hypertension I10 [facility] [id number] [place] [address] 82763- 4966 Nov, [facility] [id number] [place] [address] 44550- 7968 Oct, Essential hypertension I10 [facility] [id number] [place] [address] 09945- 2556 Oct, Essential hypertension I10 [facility] [id number] [place] [address] 55825- 6623 Oct, [facility] [address] [address]- 2788 September, [facility] [id number] [place] [address] 76920- 3615 September, Essential hypertension I10 [facility] [address], [place] [address]- 8554 September, [facility] [address], [place] [address]- 3117 September, Essential hypertension I10 ; Hyperlipidemia E78.5 and Hyponatremia E87.1 [facility] [address], [place] [address]- 6084 September, Mild intermittent asthma without complication J45.20 ; Essential hypertension I10 ; Hyperlipidemia E78.5 ; Hyponatremia E87.1 and Dysuria R30.0 [facility] [address] [address]- 1204 September, Other chronic gastritis without hemorrhage K29.50 ; Paroxysmal atrial fibrillation I48.0 and Essential hypertension I10 [facility] [id number] [place] [address] 59678- 3662 Aug, [facility] [id number] [place] [address] 36038- 9941 Jul, [facility] [id number] [place] [address] 90305- 8914 14 Jun, 2016 [facility] [id number] [place] [address] 56837 -1389 07 Jun, 2016 Dysuria R30.0 and Acute cystitis with hematuria N30.01 [facility] [address] 58909- 9617 Jun, Essential hypertension I10 [facility] [id number] [place] [address] 25884- 7572 May, Paroxysmal atrial fibrillation I48.0 [facility] [id number] [place] [address] 10946- 8330 May, Other chronic gastritis without hemorrhage K29.50 [facility] [id number] [place] [address] 36221- 3924 May, [facility] [id number] [place] [address] 88507- 1684 May, Hyponatremia E87.1 ; Essential hypertension I10 and Other chronic gastritis without hemorrhage K29.50 [facility] [id number] [place] [address] 73750- 9414 May, Hyponatremia E87.1 [facility] [id number] [place] [address] 05608- 6038 May, Hyponatremia E87.1 [facility] [address] [id number] May, [facility] [id number] [place] [address] 33009- 7356 Apr, [facility] [id number] [place] [address] 45268- 5470 Apr, [facility] [address] 29942- 9475 Mar, Essential hypertension I10 and Candidal intertrigo B37.2 [facility] [address] 25188- 4622 Mar, Hyponatremia E87.1 [facility] [address] 46154- 4780 14 Mar, 2016 [facility] [address] 78318- 0604 Mar, Hyponatremia E87.1 [facility] [address] 14465- 2649 09 Mar, 2016 Essential hypertension I10 ; Hyponatremia E87.1 ; Slurred speech R47.81 ; Paroxysmal atrial fibrillation I48.0 and Elevated blood sugar R73.9 [facility] [id number] [place] [address] 99429- 7237 Mar, [facility] [address] 16794- 7672 Mar, [facility] [id number] [place] [address] 39739- 8337 Feb, [facility] [address] 32921- 4422 15 Jan, 2016 [facility] [id number] [place] [address] 43403- 6610 Dec, [facility] [address] 04982 -0738 Nov, Scratched by cat, initial encounter W55.03XA and Other injury of unspecified body region T14.8 [facility] [id number] [place] [address] 27692- 0864 Nov, [place] [address] [address]- 4778 Oct, [facility] [id number] [place] [address] 12588- 8548 September, [facility] [address], [place] [address]- 1397 Aug, Elevated alkaline phosphatase level R74.8 [facility] [id number] [place] [address] 80442- 0323 Jul, [facility] [id number] [place] [address] 78183- 3310 Jun, Essential hypertension I10 and Bright red blood per rectum K62.5 [facility] [id number] [place] [address] 27156- 6634 Jun, Elevated alkaline phosphatase level R74.8 [facility] [id number] [place] [address] 67519- 6245 Jun, [facility] [id number] [place] [address] 20867- 7380 May, Essential hypertension I10 ; Hyperlipidemia E78.5 and Well woman exam (no gynecological exam) Z00.00 [facility] [address] [address]- 9514 May, [facility] [address] [place] [address] 81999- 3109 May, [facility] [address] [address]- 2428 Mar, [facility] [id number] [place] [address] 73204- 8601 Mar, [facility] [address] [address]- 5607 Mar, [facility] [address] [place] [address] 92564- 1446 Feb, Acute recurrent maxillary sinusitis J01.01 ; Asthma, unspecified, unspecified status 493.90 ; Seasonal allergies J30.2 and Cat allergies J30.81 [place] [id number] [place] [address] 42336- 3101 Feb, Upper respiratory tract infection, unspecified upper respiratory infection J06.9 [place] [id number] [place] [address] 12354- 8955 Jan, [facility] [facility] [id number] [place] [address] 11533- 1358 Jan, Dysphagia 787.20 and GERD (gastroesophageal reflux disease) 530.81 [place] [id number] [place] [address] 59886- 3816 Jan, Breast lesion 611.9 [place] [id number] [place] [address] 40998- 0456 Dec, Breast lesion 611.9 [place] [id number] [place] [address] 83119- 3774 Dec, Breast lesion 611.9 [place] [id number] [place] [address] 29211- 5657 Nov, Fatigue 780.79 and Hyperlipidemia 272.4 [place] [id number] [place] [address] 03281- 4969 Nov, Hypertension 401.9 ; Hyperlipidemia 272.4 ; Chronic frontal sinusitis 473.1 and Fatigue 780.79 [place] [id number] [place] [address] 86038- 4767 Nov, [place] [id number] [place] [address] 54538- 2055 Oct, [place] [id number] [place] [address] 71043- 3162 Oct, [place] [id number] [place] [address] 31635- 5843 September, [facility] [place] [facility] [address] [id number] [place] [address]- 7387 September, [facility] [place] [facility] [address] [id number] [place] [address]- 7440 September, [facility] [place] [facility] [address] [id number] [place] [address]- 9316 September, [facility] [place] [facility] [address] [id number] [place] [address]- 2748 Aug, [facility] [place] [facility] [address] [id number] [place] [address]- 3026 Aug, [facility] [place] [facility] [address] [id number] [place] [address]- 1008 Aug, [facility] [place] [facility] [address] [id number] [place] [address]- 1690 20 Jul, 2014 [facility] [place] [facility] [address] [id number] [place] [address]- 9942 20 Jul, 2014 [facility] [place] [facility] [address] [id number] [place] [address]- 4365 19 Jul, 2014 [facility] [place] [facility] [address] [id number] [place] [address]- 5573 19 Jul, 2014 [facility] [place] [facility] [address] [id number] [place] [address]- 3224 18 Jul, 2014 [facility] [place] [facility] [address] [id number] [place] [address]- 9038 17 Jul, 2014 [facility] [place] [facility] [address] [id number] [place] [address]- 6986 17 Jul, 2014 [facility] [place] [facility] [address] [id number] [place] [address]- 6985 16 Jul, 2014 [facility] [place] [facility] [address] [id number] [place] [address]- 6914 16 Jul, 2014 [facility] [place] [facility] [address] [id number] [address]- 5136 Jul, [facility] [place] [facility] [address] [id number] [place] [address]- 6793 Jul, [facility] [place] [facility] [address] [id number] [place] [address]- 5269 Jul, [facility] [place] [facility] [address] [facility] [id number] [place] [address]- 0038 Jul, [facility] [place] [facility] [address] [id number] [place] [address]- 6142 Jul, [facility] [place] [facility] [address] [id number] [place] [address]- 5200 Jul, [facility] [place] [facility] [address] [facility] [id number] [place] [address]- 2431 Jun, [facility] [place] [facility] [address] [facility] [id number] [place] [address]- 4181 Jun, [facility] [place] [facility] [address] [id number] [place] [address]- 5640 Jun, [facility] [place] [facility] [address] [facility] [id number] [place] [address]- 4172 Jun, [facility] [place] [facility] [address] [facility] [id number] [place] [address]- 7392 May, [facility] [place] [facility] [address] [facility] [id number] [address]- 7065 May, [facility] [place] [facility] [address] [id number], [place] [address]- 7744 May, [facility] [place] [facility] [address] [id number] [address]- 6064 May, [facility] [place] [facility] [address] [facility] [id number] [place] [address]- 0620 Apr, [facility] [place] [facility] [address] [facility] [id number] [place] [address]- 0820 Apr, [facility] [place] [facility] [address] [id number] [place] [address]- 2479 17 Apr, 2014 [facility] [place] [facility] [address] [id number] [place] [address]- 0158 Apr, [facility] [place] [facility] [address] [id number] [place] 7558 Apr, [facility] [place] [facility] [address] [id number] [place] [address]- 2156 Apr, [facility] [place] [facility] [address] [id number] [place] [address]- 9393 Mar, [facility] [place] [facility] [address] [id number] [place] [address]- 7504 Mar, [facility] [place] [facility] [address] [id number] [place] [address]- 0161 Mar, [facility] [place] [facility] [address] [id number] [place] [address]- 1561 Mar, [facility] [place] [facility] [address] [id number] [place] [address]- 7839 Mar, [facility] [place] [facility] [address] [id number] [place] [address]- 5579 Mar, [facility] [place] [facility] [address] [id number] [place] [address]- 1196 Mar, [facility] [place] [facility] [address] [id number] [place] [address]- 5560 Mar, [facility] [place] [facility] [address] [id number] [place] [address]- 4192 Mar, [facility] [place] [facility] [address] [id number] [place] [address]- 2826 Mar, [facility] [place] [facility] [address] [id number] [place] [address]- 7784 Mar, [facility] [place] [facility] [address] [id number] [place] [address]- 5488 Mar, [facility] [place] [facility] [address] [id number] [place] [address]- 8524 Mar, [facility] [place] [facility] [address] [id number] [place] [address]- 6415 Mar, [facility] [place] [facility] [address] [id number] [place] [address]- 7689 Mar, [facility] [place] [facility] [address] [id number] [place] [address]- 8786 Mar, [facility] [place] [facility] [address] [id number] [place] [address]- 2505 Mar, [facility] [place] [facility] [address] [id number] [place] [address]- 6389 Feb, [facility] [place] [facility] [address] [id number] [place] [address]- 2057 Feb, [facility] [place] [facility] [address] [id number], [place] [address]- 1973 Feb, [facility] [place] [facility] [address] [id number] [place] [address]- 3677 Feb, [facility] [place] [facility] [address] [id number], [place] [address]- 8590 Feb, [facility] [place] [facility] [address] [id number], [place] [address]- 4010 Feb, [facility] [place] [facility] [address] [id number], [place] [address]- 8341 Feb, [facility] [place] [facility] [address] [id number] [place] [address]- 9899 Feb, [facility] [place] [facility] [address] [id number], [place] [address]- 4866 Feb, [facility] [place] [facility] [address] [id number], [place] [address]- 4469 Feb, [facility] [place] [facility] [address] [id number] [place] [address]- 2611 16 Feb, 2014 [facility] [place] [facility] [address] [id number] [place] [address]- 4598 16 Feb, 2014 [facility] [place] [facility] [address] [id number] [place] [address]- 8562 Feb, [facility] [place] [facility] [address] [id number] [place] [address]- 7374 Feb, [facility] [place] [facility] [address] [id number] [place] [address]- 5323 Feb, [facility] [place] [facility] [address] [id number] [place] [address] Feb, [facility] [place] [facility] [address] [id number] [place] [address] Feb, [facility] [place] [facility] [address] [id number] [place] [address] Feb, [facility] [place] [facility] [address] [id number] [place] [address] Feb, [facility] [place] [facility] [address] [id number] [place] [address] 30 Jan, 2013 [facility] [place] [facility] [address] [id number] [place] [address] 30 Sep, 2013 [facility] [place] [facility] [address] [id number] [place] [address] 29 Sep, 2013 [facility] [place] [facility] [address] [id number] [place] [address] 29 Sep, 2013 [facility] [place] [facility] [address] [id number] [place] [address] 24 Sep, 2013 [facility] [place] [facility] [address] [id number] [place] [address] 24 Jan, 2013 [facility] [place] [facility] [address] [id number] [place] [address] 10 Jan, 2014 [facility] [place] [facility] [address] [id number] [place] [address] Jan, [facility] [place] [facility] [address] [id number] [place] [address] Jan, [facility] [place] [facility] [address] [id number] [place] [address] Dec, [facility] [place] [facility] [address] [id number] [place] [address] Dec, [facility] [place] [facility] [address] [id number] [place] [address] Dec, [facility] [place] [facility] [address] [id number] [place] [address] Dec, [facility] [place] [facility] [address] [id number] [place] [address] Dec, [facility] [place] [facility] [address] [id number] [place] [address] Dec, [facility] [place] [facility] [address] [id number] [place] [address] Dec, [facility] [place] [facility] [address] [id number] [place] [address] Dec, [facility] [place] [facility] [address] [id number] [place] [address] Dec, [facility] [place] [facility] [address] [id number] [place] [address] Nov, [facility] [place] [facility] [address] [id number] [place] [address] Nov, [facility] [place] [facility] [address] [id number] [place] [address] Nov, [facility] [place] [facility] [address] [id number] [place] [address] Nov, [facility] [place] [facility] [address] [id number] [place] [address] Nov, [facility] [place] [facility] [address] [id number] [place] [address] Nov, [facility] [place] [facility] [address] [id number] [place] [address] Oct, [facility] [place] [facility] [address] [id number] [place] [address] Oct, [facility] [place] [facility] [address] [id number] [place] [address] Oct, [facility] [place] [facility] [address] [id number] [place] [address] Oct, [facility] [place] [facility] [address] [id number] [place] [address] Oct, [facility] [place] [facility] [address] [id number] [place] [address]- 5140 Oct, [facility] [place] [facility] [address] [id number] [place] [address] Oct, [facility] [place] [facility] [address] [id number] [place] [address] 8975 Oct, [facility] [place] [facility] [address] [id number] [place] [address] 9823 Oct, [facility] [place] [facility] [address] [id number] [place] [address] 7421 Oct, [facility] [place] [facility] [address] [id number] [address] Oct, [facility] [place] [facility] [address] [id number] [place] [address] 5532 Oct, [facility] [place] [facility] [address] [id number] [place] [address]- 7547 Oct, [facility] [place] [facility] [address] [id number] [place] [address] 4492 Oct, [facility] [place] [facility] [address] [id number] [place] [address] 5952 September, [facility] [address] [id number] [place] [address] 6096 September, [facility] [address] [id number] [place] [address]- 8431 September, [facility] [address] [id number] [place] [address]- 5029 September, [facility] [address] [id number] [place] [address]- 6485 September, [facility] [address] [id number] [place] [address]- 4867 September, [facility] [address] [id number] [place] [address]- 6733 September, [facility] [address] [id number] [place] [address]- 0272 September, [facility] [address] [id number] [place] [address]- 5695 September, [facility] [address] [id number] [place] [address]- 1472 September, [facility] [address] [id number] [place] [address]- 8695 September, [facility] [address] [id number] [place] [address]- 1287 September, [facility] [address] [id number] [place] [address]- 0861 September, [facility] [place] [facility] [address] [id number] [place] [address]- 4037 September, [facility] [address] [id number] [place] [address]- 2499 September, [facility] [address] [id number] [place] [address]- 2834 September, [facility] [place] [facility] [address] [id number] [place] [address]- 5408 September, [facility] [place] [facility] [address] [id number] [place] [address]- 5792 September, [facility] [place] [facility] [address] [id number] [place] [address]- 1212 September, [facility] [place] [facility] [address] [id number] [place] [address]- 9779 Aug, [facility] [place] [facility] [address] [id number] [place] [address]- 0595 Aug, [facility] [place] [facility] [address] [id number] [place] [address]- 5784 Jul, [facility] [place] [facility] [address] [id number] [place] [address]- 0291 Jul, [facility] [place] [facility] [address] [id number] [place] [address]- 7620 Jul, [facility] [place] [facility] [address] [id number] [place] [address]- 8984 Jul, [facility] [place] [facility] [address] [id number] [place] [address]- 7164 Jul, [facility] [place] [facility] [address] [id number] [place] [address]- 1333 Jul, [facility] [place] [facility] [address] [id number] [place] [address]- 0458 Jul, [facility] [place] [facility] [address] [id number] [place] [address]- 5420 Jul, [facility] [place] [facility] [address] [id number] [place] [address]- 3681 Jul, [facility] [place] [facility] [address] [id number] [place] [address]- 7810 Jul, [facility] [place] [facility] [address] [id number] [place] [address]- 5576 14 Jul, 2013 [facility] [place] [facility] [address] [id number] [place] [address]- 4398 14 Jul, 2013 [facility] [place] [facility] [address] [id number] [place] [address]- 3460 07 Jul, 2013 [facility] [place] [facility] [address] [id number] [place] [address]- 0294 07 Jul, 2013 [facility] [place] [facility] [address] [id number] [place] [address]- 7102 10 Jun, 2013 [facility] [place] [facility] [address] [id number] [place] [address]- 9391 Jun, [facility] [place] [facility] [address] [id number] [place] [address]- 8090 Jun, [facility] [place] [facility] [address] [id number] [place] [address]- 9408 Jun, [facility] [place] [facility] [address] [id number] [place] [address]- 1042 May, [facility] [place] [facility] [address] [id number] [place] [address]- 6645 May, [facility] [place] [facility] [address] [id number] [place] [address]- 7078 May, [facility] [place] [facility] [address] [id number] [place] [address]- 2849 May, [facility] [place] [facility] [address] [id number] [place] [address]- 8778 May, [facility] [place] [facility] [address] [id number] [place] [address]- 6009 Mar, [facility] [place] [facility] [address] [id number] [place] [address]- 1081 Mar, [facility] [place] [facility] [address] [id number] [place] [address]- 3803 Mar, [facility] [place] [facility] [address] [id number] [place] [address]- 7748 Mar, [facility] [place] [facility] [address] [id number] [place] [address]- 6465 Mar, [facility] [place] [facility] [address] [id number] [place] [address]- 4968 Mar, [facility] [place] [facility] [address] [id number] [place] [address]- 7716 Feb, [facility] [place] [facility] [address] [id number] [place] [address]- 6203 Feb, [facility] [place] [facility] [address] [id number] [place] [address]- 9912 Feb, [facility] [place] [facility] [address] [id number] [place] [address]- 8878 Feb, [facility] [place] [facility] [address] [id number] [place] [address]- 7574 Feb, [facility] [place] [facility] [address] [id number] [place] [address]- 3866 Feb, [facility] [place] [facility] [address] [id number] [place] [address]- 7840 Feb, [facility] [place] [facility] [address] [id number] [place] [address]- 5726 Feb, [facility] [place] [facility] [address] [id number] [place] [address]- 8301 Feb, [facility] [place] [facility] [address] [id number] [place] [address]- 3855 Feb, [facility] [place] [facility] [address] [id number] [place] [address]- 8984 Feb, [facility] [place] [facility] [address] [id number] [place] [address]- 1470 Feb, [facility] [place] [facility] [address] [id number] [place] [address]- 8691 Jan, [facility] [address] [id number] [place] [address]- 4248 Jan, [facility] [place] [facility] [address] [id number] [place] [address]- 3046 Dec, [facility] [place] [facility] [address] [id number] [place] [address] 2544 Dec, [facility] [place] [facility] [address] [id number] [place] [address]- 0691 Nov, [facility] [place] [facility] [address] [id number] [place] [address]- 2332 Nov, [facility] [place] [facility] [address] [id number] [place] [address]- 7768 Nov, [facility] [place] [facility] [address] [id number] [place] [address]- 8319 Nov, [facility] [place] [facility] [address] [id number] [place] [address]- 3381 Nov, [facility] [place] [facility] [address] [id number] [place] [address]- 7138 Oct, [facility] [place] [facility] [address] [id number] [place] [address] 2546 September, [facility] [place] [facility] [address] [id number] [place] [address]- 8629 Aug, [facility] [place] [facility] [address] [id number] [place] [address] 2545 Jul, [facility] [place] [facility] [address] [id number] [place] [address]- 3397 Jul, [facility] [place] [facility] [address] [id number] [place] [address] 2548 Jul, [facility] [place] [facility] [address] [id number] [place] [address]- 3907 Jun, [facility] [place] [facility] [address] [id number] [place] [address]- 4034 14 Jun, 2012 [facility] [place] [facility] [address] [id number] [place] [address]- 7609 12 Jun, 2012 [facility] [place] [facility] [address] [id number] [place] [address]- 4946 11 Jun, 2012 [facility] [place] [facility] [address] [id number] [place] [address]- 4173 07 Jun, 2012 [facility] [place] [facility] [address] [id number] [place] [address]- 9833 May, [facility] [place] [facility] [address] [id number] [place] [address]- 3477 May, [facility] [place] [facility] [address] [id number] [place] [address]- 3873 Apr, [facility] [place] [facility] [address] [id number] [place] [address]- 5691 Apr, [facility] [place] [facility] [address] [id number] [place] [address]- 7113 Mar, [facility] [place] [facility] [address] [id number] [place] [address]- 0599 Mar, [facility] [place] [facility] [address] [id number] [place] [address]- 4095 Mar, [facility] [place] [facility] [address] [id number] [place] [address]- 5377 Mar, [facility] [place] [facility] [address] [id number] [place] [address]- 1408 Mar, [facility] [place] [facility] [address] [id number] [place] [address]- 3478 Mar, [facility] [place] [facility] [address] [id number] [place] Mar, [facility] [place] [facility] [address] [id number] [place] [address]- 3297 Mar, [facility] [place] [facility] [address] [id number] [place] [address]- 9392 Mar, [facility] [place] [facility] [address] [id number] [place] [address]- 1906 Mar, [facility] [place] [facility] [address] [facility] [id number] [place] [address]- 1259 Feb, [facility] [place] [facility] [address] [id number] [place] [address]- 8378 Feb, [facility] [place] [facility] [address] [id number] [place] [address]- 7538 Feb, [facility] [place] [facility] [address] [id number] [place] [address]- 7223 Feb, [facility] [place] [facility] [address] [facility] [id number] [place] [address]- 0219 Feb, [facility] [place] [facility] [address] [id number] [place] [address]- 9292 Feb, [facility] [place] [facility] [address] [id number] [place] [address]- 1840 Jan, [facility] [place] [facility] [address] [facility] [id number] [place] [address]- 7937 Jan, [facility] [place] [facility] [address] [id number], [place] [address]- 6096 Dec, [facility] [place] [facility] [address] [id number], [place] [address]- 4271 Dec, [facility] [place] [facility] [address] [id number] [place] [address]- 2149 Dec, [facility] [place] [facility] [address] [facility] [id number], [place] [address]- 2736 Nov, [facility] [place] [facility] [address] [facility] [id number] [place] [address]- 8994 September, [facility] [place] [facility] [address] [id number] [place] [address]- 0407 September, [facility] [address] [id number] [place] [address]- 3403 September, [facility] [place] [facility] [address] [id number] [place] [address]- 9047 September, [facility] [place] [facility] [address] [id number] [place] [address]- 4501 23 Aug, 2011 [facility] [place] [facility] [address] [id number] [place] [address]- 7598 Aug, [facility] [place] [facility] [address] [id number] [place] [address]- 0667 Aug, [facility] [place] [facility] [address] [facility] [id number] [place] [address]- 9068 Aug, [facility] [place] [facility] [address] [facility] [id number] [place] [address]- 2988 05 Aug, 2011 [facility] [place] [facility] [address] [id number] [place] [address]- 8285 Jul, [facility] [place] [facility] [address] [id number] [place] [address]- 1174 05 Jul, 2011 [facility] [place] [facility] [address] [facility] [id number] [place] [address]- 7910 Jul, [facility] [place] [facility] [address] [id number] [place] [address]- 0469 29 Jun, 2011 [facility] [place] [facility] [address] [facility] [id number] [place] [address]- 9676 17 Jun, 2011 [facility] [place] [facility] [address] [id number] [place] [address]- 9437 13 Jun, 2011 [facility] [place] [facility] [address] [facility] [id number] [place] [address]- 6446 10 Jun, 2011 [facility] [place] [facility] [address] [facility] [id number] [place] [address]- 7766 07 Jun, 2011 [facility] [address] [id number] [place] [address]- 1163 Jun, [facility] [place] [facility] [address] [id number] [place] [address]- 8128 Jun, [facility] [place] [facility] [address] [id number] [place] [address]- 6363 May, [facility] [place] [facility] [address] [id number] [place] [address]- 7697 May, [facility] [place] [facility] [address] [id number] [place] [address]- 5496 May, [facility] [place] [facility] [address] [id number] [place] [address]- 7103 May, [facility] [place] [facility] [address] [id number] [place] [address]- 2471 Apr, [facility] [place] [facility] [address] [id number] [place] [address]- 1614 Apr, [facility] [place] [facility] [address] [id number] [place] [address]- 9356 Mar, [facility] [place] [facility] [address] [id number] [place] [address]- 8995 Mar, [facility] [place] [facility] [address] [id number], [place] [address]- 7519 Mar, [facility] [place] [facility] [address] [id number], [place] [address]- 3199 Nov, [facility] [place] [facility] [address] [id number] [place] [address]- 5305 13 May, 2010 [facility] [place] [facility] [address] [id number] [place] [address]- 0605 23 Apr, 2010 [facility] [place] [facility] [address] [id number] [place] [address]- 0092 13 Apr, 2010 [facility] [place] [facility] [address] [facility] [id number] [place] [address] 2546 13 Apr, 2010 [facility] [address] [facility] [id number] [place] [address] 2546 03 Apr, 2010 [facility] [address] [facility] [id number] [place] [address] 2546 Apr, [facility] [address] [facility] [id number] [place] [address]- 2546 18 Mar, 2010 [facility] [address] [facility] [id number] [place] [address]- 2546 08 Mar, 2010 [facility] [address] [facility] [id number] [place] [address]- 3276 Feb, [facility] [address] [facility] [id number] [place] [address]- 2546 14 Aug, 2009 [facility] [address] [facility] [id number] [place] [address]- 0526 Jul, [facility] [address] [facility] [id number], [place] [address] 2546 Jun, [facility] [id number] [place] [address]- 8216 Apr, [facility] [address] [facility] [id number], [place] [address] 2546 Apr, [facility] [address] [id number], [place] [address] 2546 Mar, [facility] [address] [facility] [id number], [place] [address]- 2546 Mar, [facility] [address] [facility] [id number], [place] [address] 2546 Feb, [facility] [address] [facility] [id number], [place] [address]- 2546 Dec, [facility] [address] [facility] [id number], [place] [address]- 2546 Oct, IMMUNIZATIONS No Known Immunizations SOCIAL HISTORY Never Assessed REASON FOR VISIT Medication refill request PLAN OF CARE VITAL SIGNS MEDICATIONS Medication Instructions Dosage Frequency Start Date End Date Duration Status Carbamazepine 200 mg Orally in the morning [...]
--- OUTSIDE RECORDS SUMMARY | 2018-09-17 11:37 | XMS REPORT ---
Author Author JORDY DESIREE [facility] Address [address] [place] [address] Care Team Providers Care Jewelry Designer Name Role Phone DESIREE SPENCE Unavailable PROBLEMS Type Condition ICD9-CM Code KTY72-HV Code Onset Dates Condition Status SNOMED Code Problem Vitamin D deficiency E55.9 Active 28328248 Problem Chronic frontal sinusitis J32.1 Active 33335035 Problem Hyponatremia E87.1 Active 98007322 Problem BMI 40.0-44.9, adult Z68.41 Active 890989790 Problem Seasonal allergies J30.2 Active 764401523 Problem Secondary pulmonary arterial hypertension I27.21 Active 59746920 Problem Other chronic gastritis without hemorrhage K29.50 Active 4431246 Problem Paroxysmal atrial fibrillation I48.0 Active 439779219 Problem Fasciculations of muscle R25.3 Active 66410276 Problem Depression, unspecified depression type F32.9 Active 60206106 Problem Mild intermittent asthma without complication J45.20 Active 612698081 Problem Chronic migraine G43.709 Active 79018643 Problem Primary insomnia F51.01 Active 853166655 Problem Generalized anxiety disorder F41.1 Active 294847587 Problem Elevated alkaline phosphatase level R74.8 Active 143075328 Problem Obstructive sleep apnea G47.33 Active 73072867 Problem Hidradenitis L73.2 Active 18918488 Problem Essential hypertension I10 Active 06948527 Problem Idiopathic peripheral neuropathy G60.9 Active 36302862 Problem Hyperlipidemia E78.5 Active 02229230 ALLERGIES Substance Reaction Event Type Date Status Amitriptyline HCl Unknown Drug Allergy Feb, Active ENCOUNTERS Encounter Location Date Diagnosis [facility] [address] [facility] [id number] [address] Feb, Essential hypertension I10 [facility] [address] [facility] [id number], [place] [address] Feb, Intertrigo L30.4 and Encounter for immunization Z23 [facility] [address] [id number] [address] Feb, [facility] [id number] [place] [address] 63318- 7330 Jan, Essential hypertension I10 [facility] [id number] [place] [address] 78814- 9022 Jan, [facility] [id number] [place] [address] 51219- 5440 Jan, Screening for cervical cancer Z12.4 ; BMI 40.0-44.9, adult Z68.41 ; Screening for breast cancer Z12.31 ; Candidal intertrigo B37.2 and Elevated glucose level R73.09 [facility] [id number] [place] [address] 58603- 4008 Jan, Essential hypertension I10 [facility] [id number] [place] [address] 15292- 5990 Dec, [facility] [id number] [place] [address] 24899- 4351 Dec, [facility] [id number] [place] [address] 96684- 8135 Dec, Essential hypertension I10 [facility] [id number] [place] [address] 84996- 2534 Nov, Essential hypertension I10 [facility] [id number] [place] [address] 89202- 1094 Nov, [facility] [id number] [place] [address] 62076- 6921 Nov, Essential hypertension I10 and BMI 40.0-44.9, adult Z68.41 [facility] [address] [id number] [address] 1075 Oct, Essential hypertension I10 and Chronic kidney disease, unspecified CKD stage N18.9 [facility] [id number] [place] [address] 00306- 0056 Oct, Essential hypertension I10 and Chronic kidney disease, unspecified CKD stage N18.9 [facility] [id number] [place] [address] 49860- 0263 Oct, [facility] [address] [address]88- 6099 September, Medicare annual wellness visit, initial Z00.00 ; Mild intermittent asthma without complication J45.20 ; Generalized anxiety disorder F41.1 ; Depression, unspecified depression type F32.9 ; Paroxysmal atrial fibrillation I48.0 ; Obstructive sleep apnea G47.33 ; Hyponatremia E87.1 ; Need for hepatitis C screening test Z11.59 ; Encounter for immunization Z23 ; Secondary pulmonary arterial hypertension I27.21 and BMI 40.0-44.9, adult Z68.[address] [address]- 1327 30 Aug, 2017 Essential hypertension I10 [facility] [address] [address] -[address]64 Jun, Dysuria R30.0 ; UTI symptoms R39.9 and Candidiasis of breast B37.89 [facility] [id number] [place] [address] 22456- 3352 Jun, Hyponatremia E87.1 [facility] [address] 64351- 0842 Jun, Hyponatremia E87.1 [facility] [id number] [place] [address] 23414- 8960 Jun, Hyponatremia E87.1 [facility] [address] 35229- 7371 Jun, [facility] [id number] [place] [address] 05473- 8378 May, Hyponatremia E87.1 [facility] [id number] [place] [address] 78140- 1084 May, Hyponatremia E87.1 [facility] [id number] [place] [address] 32213- 2613 May, Hyponatremia E87.1 [facility] [id number] [place] [address] 38086- 7356 May, Hyponatremia E87.1 [facility] [id number] [place] [address] 85597- 4699 Apr, Hyponatremia E87.1 ; Fasciculations of muscle R25.3 and Hyperlipidemia E78.5 [facility] [id number] [place] [address] 01649- 5416 Apr, Cough R05 ; Hyponatremia E87.1 ; Fasciculations of muscle R25.3 ; Primary insomnia F51.01 ; Essential hypertension I10 ; Hyperlipidemia E78.5 ; Screening for breast cancer Z12.31 and BMI 40.0-44.9, adult Z68.41 [facility] [id number] [place] [address] 01407- 6931 Apr, Essential hypertension I10 [facility] [id number] [place] [address] 91333- 0807 Mar, [facility] [address], [place] [address]- 2461 Mar, [facility] [id number] [place] [address] 64719- 4507 Mar, [facility] [id number] [place] [address] 34213- 3924 Feb, [facility] [id number] [place] [address] 54875- 1714 Jan, [facility] [address] [place] [address] 74150- 3806 Dec, Essential hypertension I10 [facility] [address] [place] [address]- 9718 Dec, [facility] [address], [place] [address]- 9404 Dec, Essential hypertension I10 [facility] [address], [place] [address]- 6412 Nov, [facility] [id number] [place] [address] 08374- 5990 Oct, Essential hypertension I10 [facility] [id number] [place] [address] 00496- 5593 Oct, Essential hypertension I10 [facility] [id number] [place] [address] 49122- 0528 Oct, [facility] [id number] [place] [address] 36935- 4521 September, [facility] [id number] [place] [address] 17266- 6703 September, Essential hypertension I10 [facility] [id number] [place] [address] 32478- 3751 September, [facility] [address] [place] [address] 24548- 2735 September, Essential hypertension I10 ; Hyperlipidemia E78.5 and Hyponatremia E87.1 [facility] [address] [place] [address] 97183- 8272 September, Mild intermittent asthma without complication J45.20 ; Essential hypertension I10 ; Hyperlipidemia E78.5 ; Hyponatremia E87.1 and Dysuria R30.0 [facility] [id number] [place] [address] 19400- 1156 September, Other chronic gastritis without hemorrhage K29.50 ; Paroxysmal atrial fibrillation I48.0 and Essential hypertension I10 [facility] [address], [place] [address]- 8495 Aug, [facility] [address] [place] [address] 03925- 9441 14 Jul, 2016 [facility] [id number] [place] [address] 68168- 9150 14 Jun, 2016 [facility] [id number] [place] [address] 98989 -4080 07 Jun, 2016 Dysuria R30.0 and Acute cystitis with hematuria N30.01 [facility] [id number] [place] [address] 44484- 7022 Jun, Essential hypertension I10 [facility] [address] 04974- 3352 May, Paroxysmal atrial fibrillation I48.0 [facility] [id number] [place] [address] 29542- 8549 May, Other chronic gastritis without hemorrhage K29.50 [facility] [id number] [place] [address] 72119- 3615 May, [facility] [id number] [place] [address] 65729- 0884 May, Hyponatremia E87.1 ; Essential hypertension I10 and Other chronic gastritis without hemorrhage K29.50 [facility] [id number] [place] [address] 09282- 7236 May, Hyponatremia E87.1 [facility] [id number] [place] [address] 95114- 7592 May, Hyponatremia E87.1 [facility] [id number] [place] [address] [id number] May, [facility] [id number] [place] [address] 83643- 6778 Apr, [facility] [id number] [place] [address] 97977- 0848 Apr, [facility] [id number] [place] [address] 79725- 8104 Mar, Essential hypertension I10 and Candidal intertrigo B37.2 [facility] [address] 31314- 5740 Mar, Hyponatremia E87.1 [facility] [address] 39177- 9705 14 Mar, 2016 [facility] [address] 24304- 4473 Mar, Hyponatremia E87.1 [facility] [address] 23853- 7034 Mar, Essential hypertension I10 ; Hyponatremia E87.1 ; Slurred speech R47.81 ; Paroxysmal atrial fibrillation I48.0 and Elevated blood sugar R73.9 [facility] [address] 12311- 0794 Mar, [facility] [address] 64407- 4506 Mar, [facility] [id number] [place] [address] 77113- 5811 Feb, [facility] [address] 91935- 9824 Jan, [facility] [id number] [place] [address] 42329- 8701 Dec, [facility] [address] 16011 -5557 Nov, Scratched by cat, initial encounter W55.03XA and Other injury of unspecified body region T14.8 [facility] [address] 11163- 7246 Nov, [facility] [id number] [place] [address] 91311- 0862 Oct, [facility] [address] 70891- 6745 September, [facility] [address] [place] [address] 00890- 5181 Aug, Elevated alkaline phosphatase level R74.8 [facility] [id number] [place] [address] 92252- 0660 Jul, [facility] [id number] [place] [address] 29778- 6407 Jun, Essential hypertension I10 and Bright red blood per rectum K62.5 [facility] [id number] [place] [address] 25287- 5120 Jun, Elevated alkaline phosphatase level R74.8 [facility] [id number] [place] [address] 53189- 0003 Jun, [facility] [id number] [place] [address] 55880- 1865 May, Essential hypertension I10 ; Hyperlipidemia E78.5 and Well woman exam (no gynecological exam) Z00.00 [facility] [id number] [place] [address] 87225- 0991 May, [facility] [id number] [place] [address] 23494- 9848 May, [facility] [id number] [place] [address] 44474- 3399 Mar, [facility] [address] [place] [address] 57546- 2590 Mar, [facility] [id number] [place] [address] 81432- 9772 Mar, [facility] [id number] [place] [address] 31140- 2318 Feb, Acute recurrent maxillary sinusitis J01.01 ; Asthma, unspecified, unspecified status 493.90 ; Seasonal allergies J30.2 and Cat allergies J30.81 [facility] [id number] [place] [address] 34640- 6295 Feb, Upper respiratory tract infection, unspecified upper respiratory infection J06.9 [facility] [id number] [place] [address] 33161- 3560 Jan, [facility] [id number] [place] [address] 86319- 7140 Jan, Dysphagia 787.20 and GERD (gastroesophageal reflux disease) 530.81 [facility] [id number] [place] [address] 14765- 2310 Jan, Breast lesion 611.9 [facility] [address] 93063- 7850 Dec, Breast lesion 611.9 [facility] [id number] [place] [address] 56041- 5223 Dec, Breast lesion 611.9 [facility] [id number] [place] [address] 62033- 2526 Nov, Fatigue 780.79 and Hyperlipidemia 272.4 [facility] [id number] [place] [address] 13491- 8229 Nov, Hypertension 401.9 ; Hyperlipidemia 272.4 ; Chronic frontal sinusitis 473.1 and Fatigue 780.79 [facility] [id number] [place] [address] 81203- 6249 Nov, [facility] [id number] [place] [address] 29189- 7925 Oct, [facility] [id number] [place] [address] 18772- 3599 Oct, [facility] [id number] [place] [address] [id number]- 1873 September, [facility] [id number] [place] [address] 885224- 3660 September, [facility] [id number] [place] [address] 44807- 7911 September, [facility] [place] [facility] [address] [id number] [place] [address]- 7994 September, [facility] [place] [facility] [address] [id number] [place] [address]- 4227 28 Aug, 2014 [facility] [place] [facility] [address] [id number] [place] [address]- 4912 14 Aug, 2014 [facility] [place] [facility] [address] [id number] [place] [address]- 9694 13 Aug, 2014 [facility] [place] [facility] [address] [id number] [place] [address]- 1099 20 Jul, 2014 [facility] [place] [facility] [address] [id number] [place] [address]- 8806 20 Jul, 2014 [facility] [place] [facility] [address] [id number] [place] [address]- 6026 19 Jul, 2014 [facility] [place] [facility] [address] [id number] [place] [address]- 7047 19 Jul, 2014 [facility] [place] [facility] [address] [id number] [place] [address]- 9561 18 Jul, 2014 [facility] [place] [facility] [address] [facility] [id number] [place] [address]- 5395 17 Jul, 2014 [facility] [place] [facility] [address] [id number] [place] [address]- 0225 17 Jul, 2014 [facility] [place] [facility] [address] [id number] [place] [address]- 8723 16 Jul, 2014 [facility] [place] [facility] [address] [id number] [place] [address]- 4466 16 Jul, 2014 [facility] [place] [facility] [address] [facility] [id number] [place] 8408 12 Jul, 2014 [facility] [place] [facility] [address] [id number] [place] [address]- 5648 12 Jul, 2014 [facility] [place] [facility] [address] [id number] [place] [address]- 7589 09 Jul, 2014 [facility] [place] [facility] [address] [id number] [place] [address]- 4418 Jul, 2014 [facility] [place] [facility] [address] [id number] [place] [address]- 4806 Jul, 2014 [facility] [place] [facility] [address] [id number] [place] [address]- 5794 Jul, 2014 [facility] [place] [facility] [address] [id number] [place] [address]- 9503 Jun, 2014 [facility] [place] [facility] [address] [id number] [place] [address]- 6377 Jun, 2014 [facility] [place] [facility] [address] [id number] [place] [address]- 8511 Jun, [facility] [place] [facility] [address] [id number] [place] [address]- 3210 Jun, [facility] [place] [facility] [address] [id number] [place] [address]- 7918 May, [facility] [place] [facility] [address] [facility] [id number] [place] [address]- 8991 May, [facility] [place] [facility] [address] [id number] [place] [address]- 9782 May, [facility] [place] [facility] [address] [id number] [place] [address]- 5493 May, [facility] [place] [facility] [address] [id number] [place] [address]- 3471 Apr, [facility] [place] [facility] [address] [id number] [place] [address]- 1595 Apr, [facility] [place] [facility] [address] [id number] [place] [address]- 8660 Apr, [facility] [place] [facility] [address] [id number] [place] [address]- 5502 Apr, [facility] [place] [facility] [address] [id number] [place] [address]- 2582 Apr, [facility] [place] [facility] [address] [id number] [place] [address]- 2550 Apr, [facility] [place] [facility] [address] [id number] [place] [address]- 5849 Mar, [facility] [place] [facility] [address] [id number] [place] [address]- 7959 Mar, [facility] [place] [facility] [address] [id number] [place] [address]- 0465 Mar, [facility] [place] [facility] [address] [id number] [place] [address]- 8933 Mar, [facility] [place] [facility] [address] [id number] [place] [address]- 7583 Mar, [facility] [place] [facility] [address] [id number] [place] [address]- 6799 Mar, [facility] [place] [facility] [address] [id number] [place] [address]- 6291 Mar, [facility] [place] [facility] [address] [id number] [place] [address]- 2895 Mar, [facility] [place] [facility] [address] [id number], [place] [address]- 7767 Mar, [facility] [place] [facility] [address] [id number], [place] [address]- 3397 Mar, [facility] [place] [facility] [address] [id number] [place] [address]- 6982 Mar, [facility] [place] [facility] [address] [id number] [place] [address]- 0028 Mar, [facility] [place] [facility] [address] [id number] [place] [address]- 8148 Mar, [facility] [place] [facility] [address] [id number] [place] [address]- 8542 Mar, [facility] [place] [facility] [address] [id number] [place] [address]- 6567 Mar, [facility] [place] [facility] [address] [id number] [place] [address]- 6127 Mar, [facility] [place] [facility] [address] [id number] [place] [address]- 6926 Mar, [facility] [place] [facility] [address] [id number] [place] [address]- 0199 Feb, [facility] [place] [facility] [address] [id number] [place] [address]- 4666 Feb, [facility] [place] [facility] [address] [id number] [place] [address]- 5309 Feb, [facility] [place] [facility] [address] [id number] [place] [address]- 1093 Feb, [facility] [place] [facility] [address] [id number] [place] [address]- 7680 Feb, [facility] [place] [facility] [address] [id number] [place] [address]- 6417 Feb, [facility] [place] [facility] [address] [id number] [place] [address]- 2710 Feb, [facility] [place] [facility] [address] [id number] [place] [address]- 3141 Feb, [facility] [place] [facility] [address] [id number] [place] [address]- 4557 Feb, [facility] [place] [facility] [address] [id number] [place] [address]- 7096 Feb, [facility] [place] [facility] [address] [id number] [place] [address]- 9099 Feb, [facility] [place] [facility] [address] [id number] [place] 1017 16 Feb, 2014 [facility] [place] [facility] [address] [id number] [place] [address] 15 Feb, 2014 [facility] [place] [facility] [address] [id number] [place] [address] Feb, [facility] [place] [facility] [address] [id number] [place] [address] Feb, [facility] [place] [facility] [address] [id number] [place] [address] Feb, [facility] [place] [facility] [address] [id number] [place] [address] Feb, [facility] [place] [facility] [address] [id number] [place] [address] Feb, [facility] [place] [facility] [address] [id number] [place] [address] Feb, [facility] [place] [facility] [address] [id number] [place] [address] 30 Jan, 2013 [facility] [place] [facility] [address] [id number] [place] [address] 30 Jan, 2013 [facility] [place] [facility] [address] [id number], [place] [address] 29 Jan, 2013 [facility] [place] [facility] [address] [id number], [place] [address] 29 Sep, 2013 [facility] [place] [facility] [address] [id number], [place] [address] 24 Sep, 2013 [facility] [place] [facility] [address] [id number] [place] [address] 24 Sep, 2013 [facility] [place] [facility] [address] [id number] [place] [address] 10 Jan, 2013 [facility] [place] [facility] [address] [id number], [place] [address] 08 Jan, 2013 [facility] [place] [facility] [address] [id number], [place] [address] Jan, [facility] [place] [facility] [address] [id number] [place] [address] Dec, [facility] [place] [facility] [address] [id number] [place] [address] Dec, [facility] [place] [facility] [address] [id number] [place] [address] Dec, [facility] [place] [facility] [address] [id number] [place] [address] Dec, [facility] [place] [facility] [address] [id number] [place] [address] Dec, [facility] [place] [facility] [address] [id number] [place] [address] Dec, [facility] [place] [facility] [address] [id number] [place] [address]- [address] Dec, [facility] [place] [facility] [address] [id number] [place] [address] Dec, [facility] [place] [facility] [address] [id number] [place] [address] Dec, [facility] [place] [facility] [address] [id number] [place] [address] Nov, [facility] [place] [facility] [address] [id number] [place] [address]- [address] Nov, [facility] [place] [facility] [address] [id number] [place] [address] Nov, [facility] [place] [facility] [address] [id number] [place] [address] Nov, [facility] [place] [facility] [address] [id number] [place] [address] Nov, [facility] [place] [facility] [address] [id number] [place] [address] Nov, [facility] [place] [facility] [address] [id number] [place] [address]70 Oct, [facility] [place] [facility] [address] [id number] [place] [address] Oct, [facility] [place] [facility] [address] [id number] [place] [address] Oct, [facility] [place] [facility] [address] [id number] [place] [address] Oct, [facility] [place] [facility] [address] [id number] [place] [address]27 Oct, [facility] [place] [facility] [address] [id number] [place] [address] Oct, [facility] [place] [facility] [address] [id number] [place] [address] Oct, [facility] [place] [facility] [address] [id number] [place] [address] Oct, [facility] [place] [facility] [address] [id number] [place] [address] Oct, [facility] [place] [facility] [address] [id number] [place] [address] Oct, [facility] [place] [facility] [address] [id number] [place] [address] Oct, [facility] [place] [facility] [address] [id number] [place] [address] Oct, [facility] [place] [facility] [address] [id number] [place] [address] Oct, [facility] [place] [facility] [address] [id number] [place] [address] 8[address] Oct, [facility] [place] [facility] [address] [id number] [place] [address] 12[address] September, [facility] [place] [facility] [address] [id number] [place] [address]- [address] September, [facility] [address] [id number] [place] [address] 8587 September, [facility] [place] [facility] [address] [id number] [place] [address] 35[address] September, [facility] [place] [facility] [address] [id number] [place] [address] September, [facility] [place] [facility] [address] [id number] [place] [address]- 0759 September, [facility] [place] [facility] [address] [id number] [place] [address]- 8737 September, [facility] [place] [facility] [address] [id number] [place] [address]- 8782 September, [facility] [place] [facility] [address] [id number] [place] [address]- 5237 September, [facility] [place] [facility] [address] [id number] [place] [address]- 6289 September, [facility] [place] [facility] [address] [id number] [place] [address]- 7571 September, [facility] [place] [facility] [address] [id number] [place] [address]- [address] September, [facility] [place] [facility] [address] [id number] [place] [address]- 5540 September, [facility] [place] [facility] [address] [id number] [place] [address]- 0447 September, [facility] [place] [facility] [address] [id number] [place] [address]- 2434 September, [facility] [place] [facility] [address] [id number] [place] [address]- 9766 September, [facility] [place] [facility] [address] [id number] [place] [address]- 9864 September, [facility] [place] [facility] [address] [id number] [place] [address]- 8032 September, [facility] [place] [facility] [address] [id number] [place] [address]- 1359 September, [facility] [place] [facility] [address] [id number] [place] [address]- 3716 Aug, [facility] [place] [facility] [address] [id number] [place] [address]- 9996 Aug, [facility] [place] [facility] [address] [id number] [place] [address]- 1671 Jul, [facility] [place] [facility] [address] [id number] [place] [address]- 5305 Jul, [facility] [place] [facility] [address] [id number] [place] [address]- 3544 Jul, [facility] [place] [facility] [address] [id number] [place] [address]- 2701 Jul, [facility] [place] [facility] [address] [id number] [place] [address]- 6710 Jul, [facility] [place] [facility] [address] [id number] [place] [address]- 9314 Jul, [facility] [place] [facility] [address] [id number] [place] [address]- 9545 Jul, [facility] [place] [facility] [address] [id number] [place] [address]- 3379 Jul, [facility] [place] [facility] [address] [id number] [place] [address]- 5558 Jul, [facility] [place] [facility] [address] [id number] [place] [address]- 6711 Jul, [facility] [place] [facility] [address] [id number] [place] [address]- 6872 Jul, [facility] [place] [facility] [address] [id number] [place] [address]- 2034 14 Jul, 2013 [facility] [place] [facility] [address] [id number] [place] [address]- 7004 07 Jul, 2013 [facility] [place] [facility] [address] [id number] [place] [address]- 2428 Jul, [facility] [place] [facility] [address] [id number] [place] [address]- 3192 Jun, [facility] [place] [facility] [address] [id number] [place] [address]- 8813 Jun, [facility] [place] [facility] [address] [id number] [place] [address]- 9191 Jun, [facility] [place] [facility] [address] [id number] [place] [address]- 4929 Jun, [facility] [place] [facility] [address] [id number] [place] [address]- 7285 May, [facility] [place] [facility] [address] [id number] [place] [address]- 4003 May, [facility] [place] [facility] [address] [id number] [place] [address]- 4874 May, [facility] [place] [facility] [address] [id number] [place] [address]- 4120 May, [facility] [place] [facility] [address] [id number] [place] [address]- 3958 May, [facility] [place] [facility] [address] [id number] [place] [address]- 2553 Mar, [facility] [place] [facility] [address] [id number] [place] [address]- 4979 Mar, [facility] [place] [facility] [address] [id number] [place] [address]- 6077 Mar, [facility] [place] [facility] [address] [id number] [place] [address]- 7005 Mar, [facility] [place] [facility] [address] [id number], [place] [address]- 9796 Mar, [facility] [place] [facility] [address] [id number] [place] [address]- 7927 Mar, [facility] [place] [facility] [address] [id number] [address]- 0[address] Feb, [facility] [place] [facility] [address] [id number] [place] [address]- 9413 Feb, [facility] [place] [facility] [address] [id number], [place] [address]- 1665 Feb, [facility] [place] [facility] [address] [id number] [place] [address]- 8738 Feb, [facility] [place] [facility] [address] [id number] [place] [address]- 2677 Feb, [facility] [place] [facility] [address] [id number], [place] [address]- 0986 Feb, [facility] [place] [facility] [address] [id number], [place] [address]- 8798 Feb, [facility] [place] [facility] [address] [id number], [place] [address]- 7833 Feb, [facility] [place] [facility] [address] [facility] [id number], [place] [address]- 3408 Feb, [facility] [place] [facility] [address] [id number], [place] [address]- 6962 Feb, [facility] [place] [facility] [address] [id number], [place] [address]- 4599 Feb, [facility] [place] [facility] [address] [id number], [place] [address]- 5990 Feb, [facility] [place] [facility] [address] [facility] [id number], [place] [address]- 4079 Jan, [facility] [place] [facility] [address] [facility] [id number], [place] [address]- 2437 05 Jan, 2012 [facility] [place] [facility] [address] [id number] [place] [address]- 1656 Dec, [facility] [place] [facility] [address] [id number] [place] [address]- 2795 Dec, [facility] [place] [facility] [address] [id number] [place] [address]- 0955 Nov, [facility] [place] [facility] [address] [id number] [place] [address]- 9289 Nov, [facility] [place] [facility] [address] [id number] [place] [address]- 9248 Nov, [facility] [place] [facility] [address] [id number] [place] [address]- 6244 Nov, [facility] [place] [facility] [address] [id number] [place] [address]- 0474 Nov, [facility] [place] [facility] [address] [id number] [place] [address]- 5559 Oct, [facility] [place] [facility] [address] [id number] [place] [address]- 4137 September, [facility] [place] [facility] [address] [id number] [place] [address]- 5432 Aug, [facility] [place] [facility] [address] [id number] [place] [address]- 5769 Jul, [facility] [place] [facility] [address] [id number] [place] [address]- 0161 Jul, [facility] [place] [facility] [address] [id number] [place] [address]- 5535 Jul, [facility] [place] [facility] [address] [id number] [place] [address]- 2178 28 Jun, 2012 [facility] [place] [facility] [address] [id number] [place] [address]- 7663 14 Jun, 2012 [facility] [place] [facility] [address] [id number] [place] [address]- 2427 Jun, [facility] [place] [facility] [address] [id number] [place] [address]- 3021 Jun, [facility] [place] [facility] [address] [id number] [place] [address]- 2644 Jun, [facility] [place] [facility] [address] [id number] [place] [address]- 5753 May, [facility] [place] [facility] [address] [id number] [place] [address]- 2760 May, [facility] [place] [facility] [address] [id number] [place] [address]- 8379 Apr, [facility] [place] [facility] [address] [id number] [place] [address]- 5094 Apr, [facility] [place] [facility] [address] [id number] [place] [address]- 9312 Mar, [facility] [place] [facility] [address] [id number] [place] [address]- 3968 Mar, [facility] [place] [facility] [address] [id number] [place] [address]- 0210 Mar, [facility] [place] [facility] [address] [id number] [place] [address]- 3353 Mar, [facility] [place] [facility] [address] [id number], [place] [address]- 9813 Mar, [facility] [place] [facility] [address] [id number], [place] [address]- 7133 Mar, [facility] [place] [facility] [address] [id number] [place] [address]- 0022 Mar, [facility] [place] [facility] [address] [id number] [place] [address]- 9847 Mar, [facility] [place] [facility] [address] [id number] [place] [address]- 8074 Mar, [facility] [place] [facility] [address] [id number] [place] [address]- 2546 Mar, [facility] [place] [facility] [address] [id number] [place] [address]- 0106 Feb, [facility] [place] [facility] [address] [id number] [place] [address]- 2546 Feb, [facility] [place] [facility] [address] [id number] [place] [address]- 2546 Feb, [facility] [place] [facility] [address] [id number] [place] [address]- 2546 Feb, [facility] [place] [facility] [address] [id number] [place] [address]- 2546 Feb, [facility] [place] [facility] [address] [id number] [place] [address]- 2546 Feb, [facility] [place] [facility] [address] [id number] [place] [address]- 0856 Jan, [facility] [place] [facility] [address] [id number] [place] [address]- 6902 Jan, [facility] [place] [facility] [address] [id number] [place] [address]- 6766 Dec, [facility] [place] [facility] [address] [id number] [place] [address]- 0586 Dec, [facility] [place] [facility] [address] [id number] [place] [address]- 2546 Dec, [facility] [place] [facility] [address] [id number] [place] [address]- 2546 Nov, [facility] [place] [facility] [address] [id number] [place] [address]- 2546 September, [facility] [place] [facility] [address] [id number] [place] [address]- 2546 September, [facility] [place] [facility] [address] [id number] [place] [address]- 3603 September, [facility] [place] [facility] [address] [id number] [place] [address]- 9764 September, [facility] [place] [facility] [address] [id number] [place] [address]- 9328 Aug, [facility] [place] [facility] [address] [id number] [place] [address]- 3355 Aug, [facility] [place] [facility] [address] [id number] [place] [address]- 2405 Aug, [facility] [place] [facility] [address] [id number] [place] [address]- 6631 Aug, [facility] [place] [facility] [address] [id number] [place] [address]- 6529 Aug, [facility] [place] [facility] [address] [id number] [place] [address]- 0093 Jul, [facility] [place] [facility] [address] [id number] [place] [address]- 1000 Jul, [facility] [place] [facility] [address] [id number] [place] [address]- 8174 Jul, [facility] [place] [facility] [address] [id number] [place] [address]- 2819 29 Jun, 2011 [facility] [place] [facility] [address] [id number] [place] [address]- 6190 17 Jun, 2011 [facility] [place] [facility] [address] [id number] [place] [address]- 9659 13 Jun, 2011 [facility] [place] [facility] [address] [id number] [place] [address]- 8446 Jun, [facility] [place] [facility] [address] [id number] [place] [address]- 2446 07 Jun, 2011 [facility] [place] [facility] [address] [id number] [place] [address]- 7256 03 Jun, 2011 [facility] [place] [facility] [address] [id number] [place] [address]- 1386 03 Jun, 2011 [facility] [address] [id number] [place] [address]- 5638 May, [facility] [address] [id number] [place] [address]- 0696 May, [facility] [address] [id number] [place] [address]- 1223 May, [facility] [address] [id number] [place] [address]- 3167 May, [facility] [address] [id number] [place] [address]- 5730 Apr, [facility] [address] [id number] [place] [address]- 4914 Apr, [facility] [address] [id number] [place] [address]- 0422 Mar, [facility] [address] [id number] [place] [address]- 3693 Mar, [facility] [address] [id number] [place] [address]- 1160 Mar, [facility] [address] [id number] [place] [address]- 2636 Nov, [facility] [address] [id number] [place] [address]- 7075 May, [facility] [address] [id number] [place] [address]- 9781 Apr, [facility] [address] [id number] [place] [address]- 1197 Apr, [facility] [address] [id number] [place] [address]- 7683 Apr, [facility] [address] [id number] [place] [address]- 8830 Apr, [facility] [address] [id number] [address]- 2546 Apr, [facility] [id number], [place] [address]- 2546 Mar, [facility] [address] [id number], [place] [address]- 2546 Mar, [facility] [id number], [place] [address]- 2546 Feb, [facility] [address] [id number], [place] [address]- 9686 Aug, [facility] [id number], [place] [address]- 2546 Jul, [facility] [id number], [place] [address]- 2546 Jun, [facility] [id number], [place] [address]- 2546 Apr, [facility] [id number], [place] [address]- 2546 Apr, [facility] [id number], [place] [address]- 8246 Mar, [facility] [id number], [place] [address]- 2546 Mar, [facility] [address] [id number], [place] [address]- 2546 Feb, [facility] [address] [id number], [place] [address]- 2546 Dec, [facility] [address] [id number] [address]- 2546 Oct, IMMUNIZATIONS Vaccine Route Administration Date Status FLULAVAL QUAD 0.5ML (6 MO & UP) 2018 IM Intramuscular Feb 28, 2018 Administered SOCIAL HISTORY Never Assessed REASON FOR VISIT Non-resolving rash, stated the rash on groing area is not getting better-- ace vazquez PLAN OF CARE Activity Details Follow Up prn Reason: Pending Test CULTURE, AEROBIC Pending Test CULTURE, FUNGAL VITAL SIGNS Height 66 in 2018-02-28 Weight 213.85 lbs 2018-02-28 Temperature 98.7 degrees Fahrenheit 2018-02-28 Heart Rate 90 bpm 2018-02-28 Respiratory Rate 20 2018-02-28 BMI 34.51 kg/m2 2018-02-28 Blood pressure systolic 138 mmHg 2018-02-28 Blood pressure diastolic 86 mmHg 2018-02-28 MEDICATIONS Medication Instructions Dosage Frequency Start Date End Date Duration Status Carbamazepine 200 mg Orally in the morning and 2 tablets at bedtime 1 tablet 30 days Active Pepcid 20 mg Orally 2 times a day 1 tablet at bedtime 12h 90 days Active Klor-Con M20 20 MEQ Orally Once a day 1 tablet with food 24h 90 days Active Aspirin 325 MG Orally Once a day 1 tablet 24h Active Lisinopril 40 mg Orally Once a day 1 tablet 24h 90 days Active BusPIRone HCl 10 mg Orally twice a day 1 tablet 12h Active Viibryd 40 MG Orally Once a day 1 tablet 24h Active Metoprolol Succinate ER 50 mg Orally Once a day 1 tablet 24h 90 days Active Alprazolam 0.5 mg take 1 tablet by Oral route 2 times per day Jan, Active Nortriptyline HCl 25 MG Orally Once a day at bedtime 2 capsule Active Abilify 10 MG Orally Once a day 1 tablet 24h Active Amlodipine Besylate 10 mg Orally Once a day 1 tablet 24h 90 days Active ProAir HFA 108 (90 Base) mcg/act 2 puffs by Inhalation route 4 times per day PRN needs to keep appointment 01-10-14 Dec, Active Flonase 50 MCG/ACT Nasally Once a day 1 spray in each nostril 24h Active RESULTS No Results PROCEDURES Procedure Date Ordered Result Body Site LAB NOT BILLED BY [email or web address] Feb 28, 2018 [facility] VISIT ESTABLISHED PATIENT Feb 28, 2018 FLULAVAL QUAD 0.5ML (6 MO & UP) 2017Feb 28, 2018 SINGLE IMMUNIZATION ADMIN Feb 28, 2018 ADMN FLU VAC NO FEE SCHED SAME DAY Feb 28, 2018 INSTRUCTIONS MEDICATIONS ADMINISTERED No Known Medications MEDICAL (GENERAL) HISTORY Type Description Date Medical History hypertension Medical History neuropathy Medical History depression Medical History anxiety Medical History Hyposmolality and/or hyponatremia Surgical History cleaned out left side of sinuses 2013 Surgical History colonscopy 09/03/15 Hospitalization History cellulitis 09/2013 Hospitalization History surgery 2013 Hospitalization History A Fib--[facility] 03/08/2016 Hospitalization History acute chest pain, hypertensive urgency, paroxsysmal htn-[facility] 05/10/16
--- OUTSIDE RECORDS SUMMARY | 2018-09-17 11:38 | XMS REPORT ---
Author Author JORDY DESIREE [facility] Address [address] [place] [address] Care Team Providers Care Appellate Court Judge Name Role Phone DESIREE SPENCE Unavailable PROBLEMS Type Condition ICD9-CM Code IZE04-VA Code Onset Dates Condition Status SNOMED Code Problem Vitamin D deficiency E55.9 Active 89791495 Problem Chronic frontal sinusitis J32.1 Active 58071781 Problem Hyponatremia E87.1 Active 36356112 Problem BMI 40.0-44.9, adult Z68.41 Active 652989003 Problem Seasonal allergies J30.2 Active 830247713 Problem Secondary pulmonary arterial hypertension I27.21 Active 35362056 Problem Other chronic gastritis without hemorrhage K29.50 Active 6736193 Problem Paroxysmal atrial fibrillation I48.0 Active 621825916 Problem Fasciculations of muscle R25.3 Active 46768041 Problem Depression, unspecified depression type F32.9 Active 86111894 Problem Mild intermittent asthma without complication J45.20 Active 864614052 Problem Chronic migraine G43.709 Active 25043002 Problem Primary insomnia F51.01 Active 927824206 Problem Generalized anxiety disorder F41.1 Active 576790409 Problem Elevated alkaline phosphatase level R74.8 Active 706853345 Problem Obstructive sleep apnea G47.33 Active 34727689 Problem Hidradenitis L73.2 Active 04375436 Problem Essential hypertension I10 Active 85423007 Problem Idiopathic peripheral neuropathy G60.9 Active 64815671 Problem Hyperlipidemia E78.5 Active 59025852 ALLERGIES No Information ENCOUNTERS Encounter Location Date Diagnosis [facility] [address], [place] [address] Feb, Essential hypertension I10 [facility] [id number], [place] [address] Feb, Intertrigo L30.4 and Encounter for immunization Z23 [facility] [address], [place] [address] Feb, [facility] [id number] [place] [address] 72421- 0063 Jan, Essential hypertension I10 [facility] [id number] [place] [address] 56364- 8199 26 Jan, 2018 [facility] [id number] [place] [address] 59288- 0225 21 Jan, 2018 Screening for cervical cancer Z12.4 ; BMI 40.0-44.9, adult Z68.41 ; Screening for breast cancer Z12.31 ; Candidal intertrigo B37.2 and Elevated glucose level R73.09 [facility] [id number] [place] [address] 25810- 0901 Jan, Essential hypertension I10 [facility] [id number] [place] [address] 00147- 0012 Dec, [facility] [id number] [place] [address] 16537- 6268 Dec, [facility] [id number] [place] [address] 65107- 2242 Dec, Essential hypertension I10 [facility] [id number] [place] [address] 95686- 5277 Nov, Essential hypertension I10 [facility] [id number] [place] [address] 63989- 3294 Nov, [facility] [id number] [place] [address] 95538- 4014 Nov, Essential hypertension I10 and BMI 40.0-44.9, adult Z68.41 [facility] [id number] [place] [address] 48679- 0706 Oct, Essential hypertension I10 and Chronic kidney disease, unspecified CKD stage N18.9 [facility] [id number] [place] [address] 80108- 4288 Oct, Essential hypertension I10 and Chronic kidney disease, unspecified CKD stage N18.9 [facility] [id number] [place] [address] 04195- 2821 Oct, [facility] [id number] [place] [address] 24844- 0860 September, Medicare annual wellness visit, initial Z00.00 ; Mild intermittent asthma without complication J45.20 ; Generalized anxiety disorder F41.1 ; Depression, unspecified depression type F32.9 ; Paroxysmal atrial fibrillation I48.0 ; Obstructive sleep apnea G47.33 ; Hyponatremia E87.1 ; Need for hepatitis C screening test Z11.59 ; Encounter for immunization Z23 ; Secondary pulmonary arterial hypertension I27.21 and BMI 40.0-44.9, adult Z68.[address] [address]- 4158 30 Aug, 2017 Essential hypertension I10 [facility] [id number] [place] [address] 24643 -2914 Jun, Dysuria R30.0 ; UTI symptoms R39.9 and Candidiasis of breast B37.89 [place] [address] 54359- 0398 Jun, Hyponatremia E87.1 [place] [address] 27919- 0943 Jun, Hyponatremia E87.1 [facility] [id number] [place] [address] 05360- 5959 Jun, Hyponatremia E87.1 [place] [address] 82818- 1895 Jun, [place] [address] 95596- 6416 May, Hyponatremia E87.1 [place] [address] 47023- 9169 May, Hyponatremia E87.1 [facility] [id number] [place] [address] 65397- 1301 May, Hyponatremia E87.1 [facility] [id number] [place] [address] 98440- 5031 May, Hyponatremia E87.1 [facility] [id number] [place] [address] 19656- 4587 Apr, Hyponatremia E87.1 ; Fasciculations of muscle R25.3 and Hyperlipidemia E78.5 [facility] [id number] [place] [address] 17626- 6578 Apr, Cough R05 ; Hyponatremia E87.1 ; Fasciculations of muscle R25.3 ; Primary insomnia F51.01 ; Essential hypertension I10 ; Hyperlipidemia E78.5 ; Screening for breast cancer Z12.31 and BMI 40.0-44.9, adult Z68.41 [facility] [id number] [place] [address] 09277- 9809 Apr, Essential hypertension I10 [facility] [id number] [place] [address] 88418- 9836 Mar, [facility] [id number] [place] [address] 68162- 3244 Mar, [facility] [id number] [place] [address] 07629- 6578 Mar, [facility] [id number] [place] [address] 85576- 2983 Feb, [facility] [id number] [place] [address] 65583- 5764 Jan, [facility] [id number] [place] [address] 42447- 1266 Dec, Essential hypertension I10 [facility] [id number] [place] [address] 45721- 2902 Dec, [facility] [address], [place] [address]- 2557 Dec, Essential hypertension I10 [facility] [id number] [place] [address] 76582- 7564 Nov, [facility] [address] [place] [address] 74423- 0000 Oct, Essential hypertension I10 [facility] [id number] [place] [address] 34363- 1141 Oct, Essential hypertension I10 [facility] [id number] [place] [address] 84627- 9528 Oct, [facility] [id number] [place] [address] 72661- 4117 September, [facility] [id number] [place] [address] 88885- 2093 September, Essential hypertension I10 [facility] [address] [place] [address] 55116- 7200 September, [facility] [id number] [place] [address] 45601- 4570 September, Essential hypertension I10 ; Hyperlipidemia E78.5 and Hyponatremia E87.1 [facility] [address], [place] [address]- 0045 September, Mild intermittent asthma without complication J45.20 ; Essential hypertension I10 ; Hyperlipidemia E78.5 ; Hyponatremia E87.1 and Dysuria R30.0 [facility] [address], [place] [address]- 2456 September, Other chronic gastritis without hemorrhage K29.50 ; Paroxysmal atrial fibrillation I48.0 and Essential hypertension I10 [facility] [address], [place] [address]- 4023 11 Aug, 2016 [facility] [id number] [place] [address] 41912- 5438 Jul, [facility] [id number] [place] [address] 87502- 6608 14 Jun, 2016 [facility] [id number] [place] [address] 26185 -8267 07 Jun, 2016 Dysuria R30.0 and Acute cystitis with hematuria N30.01 [facility] [address] 96697- 1684 Jun, Essential hypertension I10 [facility] [id number] [place] [address] 63661- 5839 May, Paroxysmal atrial fibrillation I48.0 [place] [address] 14768- 4762 May, Other chronic gastritis without hemorrhage K29.50 [facility] [id number] [place] [address] 53450- 2904 May, [facility] [id number] [place] [address] 98748- 2482 May, Hyponatremia E87.1 ; Essential hypertension I10 and Other chronic gastritis without hemorrhage K29.50 [facility] [id number] [place] [address] 01938- 5010 May, Hyponatremia E87.1 [place] [id number] [place] [address] 70143- 9947 May, Hyponatremia E87.1 [facility] [id number] [place] [address] [id number] May, [facility] [id number] [place] [address] 72409- 9816 Apr, [facility] [id number] [place] [address] 88607- 0878 Apr, [facility] [id number] [place] [address] 05248- 9909 Mar, Essential hypertension I10 and Candidal intertrigo B37.2 [facility] [id number] [place] [address] 31900- 0381 Mar, Hyponatremia E87.1 [facility] [id number] [place] [address] 79280- 1217 14 Mar, 2016 [facility] [address] 42885- 8246 Mar, Hyponatremia E87.1 [facility] [address] 87862- 6495 09 Mar, 2016 Essential hypertension I10 ; Hyponatremia E87.1 ; Slurred speech R47.81 ; Paroxysmal atrial fibrillation I48.0 and Elevated blood sugar R73.9 [facility] [address] 78802- 5149 Mar, [facility] [address] 54697- 6041 Mar, [facility] [address] 19610- 0201 Feb, [facility] [address] 95266- 8671 Jan, [facility] [id number] [place] [address] 29264- 4700 Dec, [facility] [id number] [place] [address] 46850 -4496 Nov, Scratched by cat, initial encounter W55.03XA and Other injury of unspecified body region T14.8 [facility] [id number] [place] [address] 99831- 9960 Nov, [facility] [id number] [place] [address] 11927- 2799 Oct, [facility] [id number] [place] [address] 20371- 4871 September, [place] [address], [place] [address]- 9706 Aug, Elevated alkaline phosphatase level R74.8 [place] [id number] [place] [address] 12727- 3741 Jul, [place] [id number] [place] [address] 87332- 5243 Jun, Essential hypertension I10 and Bright red blood per rectum K62.5 [place] [id number] [place] [address] 72449- 4412 Jun, Elevated alkaline phosphatase level R74.8 [place] [address] 73395- 0227 Jun, [place] [id number] [place] [address] 84376- 0547 May, Essential hypertension I10 ; Hyperlipidemia E78.5 and Well woman exam (no gynecological exam) Z00.00 [place] [id number] [place] [address] 25422- 7319 May, [place] [id number] [place] [address] 90546- 7673 May, [place] [id number] [place] [address] 46830- 5046 Mar, [place] [id number] [place] [address] 76827- 7653 Mar, [place] [id number] [place] [address] 83297- 1938 Mar, [place] [id number] [place] [address] 55412- 5482 Feb, Acute recurrent maxillary sinusitis J01.01 ; Asthma, unspecified, unspecified status 493.90 ; Seasonal allergies J30.2 and Cat allergies J30.81 [place] [id number] [place] [address] 11295- 9319 Feb, Upper respiratory tract infection, unspecified upper respiratory infection J06.9 [facility] [id number] [place] [address] 98211- 5916 Jan, [facility] [id number] [place] [address] 31997- 7335 Jan, Dysphagia 787.20 and GERD (gastroesophageal reflux disease) 530.81 [facility] [id number] [place] [address] 62194- 5117 Jan, Breast lesion 611.9 [facility] [id number] [place] [address] 68555- 8955 Dec, Breast lesion 611.9 [facility] [id number] [place] [address] 75307- 9014 Dec, Breast lesion 611.9 [facility] [id number] [place] [address] 04088- 8901 Nov, Fatigue 780.79 and Hyperlipidemia 272.4 [facility] [id number] [place] [address] 239517- 2179 Nov, Hypertension 401.9 ; Hyperlipidemia 272.4 ; Chronic frontal sinusitis 473.1 and Fatigue 780.79 [facility] [address] [place] [address] 61786- 3899 Nov, [facility] [id number] [place] [address] 87760- 4335 Oct, [facility] [id number] [place] [address] 38485- 3126 Oct, [facility] [id number] [place] [address] 01774- 2364 September, [facility] [id number] [place] [address] 86965- 1186 September, [facility] [id number] [place] [address] 73841- 4118 September, [facility] [place] [facility] [address] [id number] [place] [address]- 6033 September, [facility] [place] [facility] [address] [id number] [place] [address]- 4296 28 Aug, 2014 [facility] [place] [facility] [address] [id number] [place] [address]- 4229 14 Aug, 2014 [facility] [place] [facility] [address] [id number] [place] [address]- 0006 13 Aug, 2014 [facility] [place] [facility] [address] [id number] [place] [address]- 7506 20 Jul, 2014 [facility] [place] [facility] [address] [id number] [place] [address]- 6378 20 Jul, 2014 [facility] [place] [facility] [address] [id number] [place] [address]- 5494 19 Jul, 2014 [facility] [place] [facility] [address] [id number] [place] [address]- 4320 19 Jul, 2014 [facility] [place] [facility] [address] [id number] [place] [address]- 2555 18 Jul, 2014 [facility] [place] [facility] [address] [id number] [place] [address]- 2727 17 Jul, 2014 [facility] [place] [facility] [address] [id number] [place] [address]- 1337 17 Jul, 2014 [facility] [place] [facility] [address] [id number] [place] [address]- 5398 16 Jul, 2014 [facility] [place] [facility] [address] [id number] [place] [address]- 1237 16 Jul, 2014 [facility] [place] [facility] [address] [id number] [place] [address]- 3077 12 Jul, 2014 [facility] [place] [facility] [address] [id number] [place] [address]- 6141 12 Jul, 2014 [facility] [place] [facility] [address] [id number] [place] [address]- 0236 Jul, [facility] [place] [facility] [address] [id number] [place] [address]- 7054 Jul, [facility] [place] [facility] [address] [id number] [place] [address]- 6756 Jul, [facility] [place] [facility] [address] [facility] [id number] [place] [address]- 0912 Jul, [facility] [place] [facility] [address] [id number] [place] [address]- 2166 Jun, 2014 [facility] [place] [facility] [address] [id number] [place] [address]- 8892 Jun, 2014 [facility] [place] [facility] [address] [facility] [id number] [place] [address]- 5149 Jun, [facility] [place] [facility] [address] [facility] [id number] [place] [address]- 2129 Jun, [facility] [place] [facility] [address] [facility] [id number] [place] [address]- 9567 May, [facility] [place] [facility] [address] [facility] [id number] [place] [address]- 9705 May, [facility] [place] [facility] [address] [facility] [id number] [place] [address]- 0993 May, [facility] [place] [facility] [address] [facility] [id number], [place] [address]- 3555 May, [facility] [place] [facility] [address] [id number], [place] [address]- 4937 Apr, [facility] [place] [facility] [address] [id number] [place] [address]- 2929 Apr, [facility] [place] [facility] [address] [facility] [id number] [place] [address]- 7968 Apr, [facility] [place] [facility] [address] [facility] [id number] [place] [address]- 0626 Apr, [facility] [place] [facility] [address] [id number] [place] [address]- 3304 Apr, [facility] [place] [facility] [address] [id number] [place] [address]- 9400 Apr, [facility] [place] [facility] [address] [id number] [place] [address]- 7830 Mar, [facility] [place] [facility] [address] [id number] [place] [address]- 1998 Mar, [facility] [place] [facility] [address] [id number] [place] [address]- 7568 Mar, [facility] [place] [facility] [address] [id number] [place] [address]- 8286 Mar, [facility] [place] [facility] [address] [id number] [place] [address]- 6646 Mar, [facility] [place] [facility] [address] [id number] [place] [address]- 5673 Mar, [facility] [place] [facility] [address] [id number] [place] [address]- 4081 Mar, [facility] [place] [facility] [address] [id number] [place] [address]- 2157 Mar, [facility] [place] [facility] [address] [id number] [place] [address]- 4452 Mar, [facility] [place] [facility] [address] [id number] [place] [address]- 5038 Mar, [facility] [place] [facility] [address] [id number] [place] [address]- 2896 Mar, [facility] [place] [facility] [address] [id number] [place] [address]- 7817 Mar, [facility] [place] [facility] [address] [id number] [place] [address]- 4185 Mar, [facility] [place] [facility] [address] [id number] [place] [address]- 5194 Mar, [facility] [place] [facility] [address] [id number] [place] [address]- 0616 Mar, [facility] [place] [facility] [address] [id number] [place] [address]- 3214 Mar, [facility] [place] [facility] [address] [id number] [place] [address]- 6584 Mar, [facility] [place] [facility] [address] [id number] [place] [address]- 9556 Feb, [facility] [place] [facility] [address] [id number] [place] [address]- 9337 Feb, [facility] [place] [facility] [address] [id number] [place] [address]- 5727 Feb, [facility] [place] [facility] [address] [id number] [place] [address]- 5846 Feb, [facility] [place] [facility] [address] [id number] [place] [address]- 8592 Feb, [facility] [place] [facility] [address] [id number] [place] [address]- 5656 29 Feb, 2014 [facility] [place] [facility] [address] [id number], [place] [address]- 9138 Feb, [facility] [place] [facility] [address] [id number], [place] [address]- 0776 Feb, [facility] [place] [facility] [address] [id number], [place] [address]- 4322 Feb, [facility] [place] [facility] [address] [id number] [place] [address] Feb, [facility] [place] [facility] [address] [id number], [place] [address] Feb, [facility] [place] [facility] [address] [id number], [place] [address] Feb, [facility] [place] [facility] [address] [id number] [place] [address] 15 Feb, 2014 [facility] [place] [facility] [address] [id number] [place] [address] 15 Feb, 2014 [facility] [place] [facility] [address] [id number] [place] [address] 08 Feb, 2014 [facility] [place] [facility] [address] [id number] [place] [address] Feb, [facility] [place] [facility] [address] [id number] [place] [address] Feb, [facility] [place] [facility] [address] [id number] [place] [address] Feb, [facility] [place] [facility] [address] [id number] [place] [address] Feb, [facility] [place] [facility] [address] [id number] [place] [address] 30 Jan, 2013 [facility] [place] [facility] [address] [id number] [place] [address] 30 Sep, 2013 [facility] [place] [facility] [address] [id number] [place] [address] 29 Sep, 2013 [facility] [place] [facility] [address] [id number] [place] [address]- [address] 29 Sep, 2013 [facility] [place] [facility] [address] [id number] [place] [address] 2546 24 Sep, 2013 [facility] [place] [facility] [address] [id number] [place] [address]- [address] 24 Sep, 2013 [facility] [place] [facility] [address] [id number] [place] [address]- [address] 10 Sep, 2013 [facility] [place] [facility] [address] [id number] [place] [address]- [address] 08 Sep, 2013 [facility] [place] [facility] [address] [id number] [place] [address]- [address] 08 Jan, 2014 [facility] [place] [facility] [address] [id number] [place] [address] Dec, [facility] [place] [facility] [address] [id number] [place] [address] Dec, [facility] [place] [facility] [address] [id number] [place] [address]- [address] Dec, [facility] [place] [facility] [address] [id number] [place] [address] Dec, [facility] [place] [facility] [address] [id number] [place] [address]- 39[address] Dec, [facility] [place] [facility] [address] [id number] [place] [address] Dec, [facility] [place] [facility] [address] [id number] [place] [address] Dec, [facility] [place] [facility] [address] [id number] [place] [address] Dec, [facility] [place] [facility] [address] [id number] [place] [address] Dec, [facility] [place] [facility] [address] [id number] [place] [address] Nov, [facility] [place] [facility] [address] [id number] [place] [address] Nov, [facility] [place] [facility] [address] [id number] [place] [address] 1496 Nov, [facility] [place] [facility] [address] [id number] [place] [address]- [address] Nov, [facility] [place] [facility] [address] [id number] [place] [address] Nov, [facility] [place] [facility] [address] [id number] [place] [address]- [address] Nov, [facility] [place] [facility] [address] [id number] [place] [address]- [address] Oct, [facility] [place] [facility] [address] [id number] [place] [address] Oct, [facility] [place] [facility] [address] [id number] [place] [address] 120[address] Oct, [facility] [place] [facility] [address] [id number] [place] [address] Oct, [facility] [place] [facility] [address] [address] [id number] [place] [address] Oct, [facility] [place] [facility] [address] [id number] [place] [address] Oct, [facility] [place] [facility] [address] [id number] [place] [address] 3947 Oct, [facility] [place] [facility] [address] [id number] [place] [address] 6775 Oct, [facility] [place] [facility] [address] [id number] [place] [address] 7325 Oct, [facility] [place] [facility] [address] [id number] [place] [address] 7199 Oct, [facility] [place] [facility] [address] [id number] [place] [address] 4424 Oct, [facility] [place] [facility] [address] [id number] [place] [address] 9066 Oct, [facility] [place] [facility] [address] [id number], [place] [address] Oct, [facility] [place] [facility] [address] [id number] [place] [address] 4[address] Oct, [facility] [place] [facility] [address] [id number] [place] [address] 0491 September, [facility] [place] [facility] [address] [id number] [place] [address]- 1299 September, [facility] [place] [facility] [address] [id number] [place] [address] 4584 September, [facility] [address] [id number] [place] [address] 8811 September, [facility] [address] [id number] [place] [address] 1321 September, [facility] [address] [id number] [place] [address] 3130 September, [facility] [address] [id number] [place] [address]- 0583 September, [facility] [address] [id number] [place] [address]- 9239 September, [facility] [address] [id number] [place] [address]- 0914 September, [facility] [address] [id number] [place] [address]- 3027 September, [facility] [address] [id number] [place] [address]- 6033 September, [facility] [address] [id number] [place] [address]- 5038 September, [facility] [address] [id number] [place] [address]- 9755 September, [facility] [address] [id number] [place] [address]- 7533 September, [facility] [address] [id number] [place] [address]- 4763 September, [facility] [place] [facility] [address] [id number] [place] [address] 5557 September, [facility] [address] [id number] [place] [address]- 8251 September, [facility] [address] [id number] [place] [address]- 8456 September, [facility] [place] [facility] [address] [id number] [place] [address]- 9570 September, [facility] [place] [facility] [address] [id number] [place] [address]- 6706 Aug, [facility] [place] [facility] [address] [id number] [place] [address]- 6567 Aug, [facility] [place] [facility] [address] [id number] [place] [address]- 6328 Jul, [facility] [place] [facility] [address] [id number] [place] [address]- 8161 Jul, [facility] [place] [facility] [address] [id number] [place] [address]- 5392 Jul, [facility] [place] [facility] [address] [id number] [place] [address]- 1890 Jul, [facility] [place] [facility] [address] [id number] [place] [address]- 5686 Jul, [facility] [place] [facility] [address] [id number] [place] [address]- 0221 Jul, [facility] [place] [facility] [address] [id number] [place] [address]- 6234 Jul, [facility] [place] [facility] [address] [id number] [place] [address]- 0805 Jul, [facility] [place] [facility] [address] [id number] [place] [address]- 9236 Jul, [facility] [place] [facility] [address] [id number] [place] [address]- 7407 Jul, [facility] [place] [facility] [address] [id number] [place] [address]- 6027 Jul, [facility] [place] [facility] [address] [id number] [place] [address] 14 Jul, 2013 [facility] [place] [facility] [address] [id number] [place] [address]- 2407 07 Jul, 2013 [facility] [place] [facility] [address] [id number] [place] [address]- 3554 Jul, [facility] [place] [facility] [address] [id number] [place] [address]- 8239 Jun, [facility] [place] [facility] [address] [id number] [place] [address]- 9166 Jun, [facility] [place] [facility] [address] [id number] [place] [address]- 6806 Jun, [facility] [place] [facility] [address] [id number] [place] [address]- 2679 Jun, [facility] [place] [facility] [address] [id number] [place] [address]- 5445 May, [facility] [place] [facility] [address] [id number] [place] [address]- 0348 May, [facility] [place] [facility] [address] [id number] [place] [address]- 3700 May, [facility] [place] [facility] [address] [id number] [place] [address]- 2043 May, [facility] [place] [facility] [address] [id number] [place] [address]- 1184 May, [facility] [place] [facility] [address] [id number] [place] [address]- 0521 Mar, [facility] [place] [facility] [address] [id number] [place] [address]- 4598 Mar, [facility] [place] [facility] [address] [id number] [place] [address]- 3243 Mar, [facility] [place] [facility] [address] [id number] [place] [address]- 1759 Mar, [facility] [place] [facility] [address] [id number] [place] [address]- 7312 Mar, [facility] [place] [facility] [address] [id number] [place] [address]- 3970 Mar, [facility] [place] [facility] [address] [id number] [place] [address]- 3148 Feb, [facility] [place] [facility] [address] [id number] [place] [address]- 6133 Feb, [facility] [place] [facility] [address] [id number] [place] [address]- 2085 Feb, [facility] [place] [facility] [address] [id number] [place] [address]- 7474 Feb, [facility] [place] [facility] [address] [id number] [place] [address]- 2324 Feb, [facility] [place] [facility] [address] [id number] [place] [address]- 2343 Feb, [facility] [place] [facility] [address] [id number] [place] [address]- 6113 Feb, [facility] [place] [facility] [address] [id number] [place] [address]- 3225 Feb, [facility] [place] [facility] [address] [id number] [place] [address]- 4455 Feb, [facility] [place] [facility] [address] [id number] [place] [address]- 6181 Feb, [facility] [place] [facility] [address] [id number] [place] [address]- 9631 Feb, [facility] [place] [facility] [address] [id number] [place] [address]- 4145 Feb, [facility] [place] [facility] [address] [id number] [place] [address]- 8496 Jan, [facility] [place] [facility] [address] [id number] [place] [address]- 0923 05 Jan, 2013 [facility] [place] [facility] [address] [id number] [place] [address]- 4556 Dec, [facility] [place] [facility] [address] [id number] [place] [address]- 9947 Dec, [facility] [place] [facility] [address] [id number] [place] [address]- 3443 Nov, [facility] [place] [facility] [address] [id number] [place] [address]- 7873 Nov, [facility] [place] [facility] [address] [id number] [place] [address]- 6397 Nov, [facility] [place] [facility] [address] [id number] [place] [address]- 8730 Nov, [facility] [place] [facility] [address] [id number] [place] [address]- 2385 Nov, [facility] [place] [facility] [address] [id number] [place] [address]- 6963 Oct, [facility] [place] [facility] [address] [id number] [place] [address]- 3364 September, [facility] [place] [facility] [address] [id number] [place] [address]- 8709 Aug, [facility] [place] [facility] [address] [id number] [place] [address]- 2861 Jul, [facility] [place] [facility] [address] [id number] [place] [address]- 6675 Jul, [facility] [place] [facility] [address] [id number] [place] [address] 2541 Jul, [facility] [place] [facility] [address] [id number] [place] [address]- 9136 Jun, [facility] [place] [facility] [address] [id number] [place] [address]- 3467 Jun, [facility] [place] [facility] [address] [id number] [place] [address]- 0960 Jun, [facility] [place] [facility] [address] [id number] [place] [address]- 6300 11 Jun, 2012 [facility] [place] [facility] [address] [id number] [place] [address]- 0176 07 Jun, 2012 [facility] [place] [facility] [address] [id number] [place] [address]- 1764 May, [facility] [place] [facility] [address] [id number] [place] [address]- 8628 May, [facility] [place] [facility] [address] [id number] [place] [address]- 7115 Apr, [facility] [place] [facility] [address] [id number] [place] [address]- 1658 Apr, [facility] [place] [facility] [address] [id number] [place] [address]- 3893 Mar, [facility] [place] [facility] [address] [id number] [place] [address]- 0990 Mar, [facility] [place] [facility] [address] [id number] [place] [address]- 6096 Mar, [facility] [place] [facility] [address] [id number] [place] [address]- 9522 Mar, [facility] [place] [facility] [address] [id number] [place] [address]- 5614 Mar, [facility] [place] [facility] [address] [id number] [place] [address]- 2022 Mar, [facility] [place] [facility] [address] [id number] [place] [address]- 6260 Mar, [facility] [place] [facility] [address] [id number] [place] [address]- 5432 Mar, [facility] [place] [facility] [address] [id number] [place] [address] Mar, [facility] [place] [facility] [address] [id number] [place] [address]- 1476 Mar, [facility] [place] [facility] [address] [id number] [place] [address]- 9988 Feb, [facility] [place] [facility] [address] [id number] [place] [address]- 1786 Feb, [facility] [place] [facility] [address] [id number] [place] [address]- 2837 Feb, [facility] [place] [facility] [address] [id number] [place] [address]- 6333 Feb, [facility] [place] [facility] [address] [id number] [place] [address]- 0912 Feb, [facility] [place] [facility] [address] [id number] [place] [address]- 0846 Feb, [facility] [place] [facility] [address] [id number] [place] [address]- 6516 Jan, [facility] [place] [facility] [address] [id number] [place] [address]- 2780 Jan, [facility] [place] [facility] [address] [id number] [place] [address]- 0223 Dec, [facility] [place] [facility] [address] [id number] [place] [address]- 3887 Dec, [facility] [place] [facility] [address] [id number], [place] [address]- 4736 Dec, [facility] [place] [facility] [address] [id number], [place] [address]- 9711 Nov, [facility] [place] [facility] [address] [id number] [place] [address]- 2508 September, [facility] [place] [facility] [address] [id number], [place] [address]- 8586 September, [facility] [place] [facility] [address] [facility] [id number] [place] [address] 2546 September, [facility] [place] [facility] [address] [id number] [place] [address]- 2645 September, [facility] [address] [id number] [place] [address]- 3855 23 Aug, 2011 [facility] [place] [facility] [address] [id number] [place] [address]- 4306 20 Aug, 2011 [facility] [place] [facility] [address] [id number] [place] [address]- 3786 19 Aug, 2011 [facility] [place] [facility] [address] [id number] [place] [address]- 6831 10 Aug, 2011 [facility] [place] [facility] [address] [id number] [place] [address]- 1645 05 Aug, 2011 [facility] [place] [facility] [address] [facility] [id number] [place] [address]- 6852 Jul, [facility] [place] [facility] [address] [facility] [id number] [place] [address]- 1149 05 Jul, 2011 [facility] [place] [facility] [address] [id number] [place] [address]- 2550 Jul, [facility] [place] [facility] [address] [id number] [place] [address]- 5822 29 Jun, 2011 [facility] [place] [facility] [address] [facility] [id number] [place] [address]- 3686 17 Jun, 2011 [facility] [place] [facility] [address] [facility] [id number] [place] [address]- 3066 13 Jun, 2011 [facility] [place] [facility] [address] [facility] [id number] [place] [address]- 0114 10 Jun, 2011 [facility] [place] [facility] [address] [id number] [place] [address]- 3446 07 Jun, 2011 [facility] [place] [facility] [address] [facility] [id number] [place] [address]- 2546 03 Jun, 2011 [facility] [place] [facility] [address] [facility] [id number] [place] [address]- 9244 Jun, [facility] [address] [id number] [place] [address]- 7308 May, [facility] [place] [facility] [address] [id number] [place] [address]- 6385 May, [facility] [place] [facility] [address] [id number] [place] [address]- 8684 May, [facility] [place] [facility] [address] [id number] [place] [address]- 7798 May, [facility] [place] [facility] [address] [id number] [place] [address]- 4695 Apr, [facility] [place] [facility] [address] [id number] [place] [address]- 2522 Apr, [facility] [place] [facility] [address] [id number] [place] [address]- 5259 Mar, [facility] [place] [facility] [address] [id number] [place] [address]- 3514 Mar, [facility] [place] [facility] [address] [id number] [place] [address]- 7383 Mar, [facility] [place] [facility] [address] [id number] [place] [address]- 8346 Nov, [facility] [place] [facility] [address] [id number], [place] [address]- 7348 May, [facility] [place] [facility] [address] [id number], [place] [address]- 8682 Apr, [facility] [place] [facility] [address] [id number] [place] [address]- 2723 Apr, [facility] [place] [facility] [address] [id number] [place] [address]- 0315 Apr, [facility] [place] [facility] [address] [id number] [place] [address]- 3936 Apr, [facility] [place] [facility] [id number], [place] [address]- 2996 Apr, [facility] [id number], [place] [address]- 8496 Mar, [facility] [id number], [place] [address]- 0606 Mar, [facility] [id number], [place] [address]- 6676 Feb, [facility] [id number], [place] [address]- 2571 Aug, [facility] [id number] [place] [address]- 7602 Jul, [facility] [id number] [place] [address] 9[address]- 3506 Jun, [facility] [id number] [place] [address] 66644- 2096 Apr, [facility] [id number], [place] [address]- 0223 Apr, [facility] [id number] [place] [address]85[address]- 5809 Mar, [facility] [id number], [place] [address]- 9246 Mar, [facility] [id number], [place] [address]- 6346 Feb, [facility] [id number], [place] [address]- 4303 Dec, [facility] [id number], [place] [address]- 3197 Oct, IMMUNIZATIONS No Known Immunizations SOCIAL HISTORY Never Assessed REASON FOR VISIT Med refills PLAN OF CARE VITAL SIGNS MEDICATIONS Medication Instructions Dosage Frequency Start Date End Date Duration Status Amlodipine Besylate 10 mg Orally Once a day 1 tablet 24h 90 days Active Klor-Con M20 20 MEQ Orally Once a day 1 tablet with food 24h 90 days Active RESULTS No Results PROCEDURES No Known procedures INSTRUCTIONS MEDICATIONS ADMINISTERED No Known Medications MEDICAL (GENERAL) HISTORY Type Description Date Medical History hypertension Medical History neuropathy Medical History depression Medical History anxiety Medical History Hyposmolality and/or hyponatremia Surgical History cleaned out left side of sinuses 2013 Surgical History colonscopy 09/03/15 Hospitalization History cellulitis 09/2013 Hospitalization History surgery 2013 Hospitalization History A Fib--[facility] 03/08/2016 Hospitalization History acute chest pain, hypertensive urgency, paroxsysmal htn-[facility] 05/10/16
--- NOTE | 2018-09-17 11:39 | ED General ---
General Chief Complaint: General Problems/Pain Stated Complaint: WEAKNESS Nursing Triage Note: ARRIVED VIA EMS FROM [facility] ET STATES SHE STARTED FEELING A GENERALIZED WEAKNESS WHILE AT [facility]. NO SYNCOPE OR STROKE LIKE SYMPTOMS NOTED. STATES WHEN SHE IS LOW ON K+ THIS HAPPENS SOMETIMES. Nursing Sepsis Screen: No Definite Risk Source of Information: Patient, EMS Exam Limitations: No Limitations History of Present Illness Date Seen by Provider: September 17, 2018 Time Seen by Provider: 11:25 Initial Comments patient presents to ER by EMS with chief complaint that she was feeling very weak about the pass out dizzy with no nausea chest pain but some mild shortness of breath about 10:30, one hour prior to arrival. She was sitting at [facility] when this happened. She said starting to feel weak and dizzy like this yesterday as well but this is never happened before. She had a Lync device placed by Dr. Gerardo, cardiology a year ago. She says she has been diagnosed with paroxysmal atrial fibrillation and was on Xarelto but he took her off Xarelto had her switched to aspirin only. She did take aspirin this morning. She denies any fever, cough, COPD or asthma, smoking drinking or drugs, pedal edema, chest pain, abdominal pain, nausea, vomiting, diarrhea or constipation. Allergies and Home Medications Allergies Coded Allergies: amitriptyline (Unverified Allergy, Unknown, CAUSED SLURRED SPEECH, 08/15/15) Home Medications Albuterol Sulfate 8.5 Gm Hfa.aer.ad, 1-2 PUFF IH Q4H PRN for SHORTNESS OF BREATH , (Reported) Alprazolam 0.5 Mg Tablet, 0.5 MG PO BID PRN for ANXIETY, (Reported) Amlodipine Besylate 10 Mg Tablet, 10 MG PO HS Prescribed by: ELIZABETH SERNA on 05/12/16 1143 Aripiprazole 5 Mg Tablet, 5 MG PO DAILY, (Reported) Buspirone HCl 10 Mg Tablet, 10 MG PO DAILY, (Reported) Buspirone HCl 10 Mg Tablet, 20 MG PO HS, (Reported) TAKES 2 (10MG) TABLETS Carbamazepine 200 Mg Tablet, 200 MG PO DAILY, (Reported) TAKES FOR FACIAL TWITCHES, NOT SEIZURES Carbamazepine 200 Mg Tablet, 400 MG PO HS, (Reported) TAKES 2 (200MG) TABLETS Diltiazem HCl 240 Mg Cap.er.24h, 240 MG PO HS, (Reported) Famotidine 20 Mg Tablet, 20 MG PO BID Prescribed by: MADDIE HALL on 05/16/16 1649 Fluticasone Propionate 16 Gm Marlow.susp, 1 SPRAY NS DAILY PRN for ALLERGIES, ( Reported) Hydrochlorothiazide 12.5 Mg Capsule, 12.5 MG PO DAILY@0900 Prescribed by: ELIZABETH SERNA on 05/12/16 1143 Lisinopril 40 Mg Tablet, 40 MG PO DAILY, (Reported) Metoprolol Succinate 50 Mg Tab.er.24h, 50 MG PO HS, (Reported) Nortriptyline HCl 25 Mg Capsule, 50 MG PO HS, (Reported) TAKES 2 (25 MG) CAPSULES Nystatin 15 Gm Cream..g., TP BID, (Reported) Pantoprazole Sodium 40 Mg Tablet.dr, 40 MG PO HS, (Reported) Potassium Chloride 20 Meq Tab.er.prt, 20 MEQ PO DAILY Prescribed by: ELIZABETH SERNA on 05/12/16 1143 Rivaroxaban 20 Mg Tablet, 20 MG PO HS, (Reported) Sucralfate 1 Gm Tablet, 1 GM PO ACHS, (Reported) Vilazodone Hydrochloride 20 Mg Tablet, 20 MG PO DAILY, (Reported) Zolpidem Tartrate 5 Mg Tablet, 5 MG PO HS, (Reported) Patient Home Medication List Home Medication List Reviewed: Yes Review of Systems Review of Systems Constitutional: No chills, No diaphoresis; dizziness; No fever, No malaise; weakness EENTM: No ear discharge, No hearing loss, No ear pain Respiratory: No cough, No phlegm, No short of breath Cardiovascular: No chest pain, No edema, No Hx of Intervention; palpitations; No syncope, No vascular heart diseas Gastrointestinal: No abdominal pain, No constipation, No diarrhea Genitourinary: No discharge, No dysuria Musculoskeletal: No back pain, No joint pain Past Llkihor-Vxqnpb-Mxrkbj Hx Patient Social History Alcohol Use: Denies Use Recreational Drug Use: No Smoking Status: Never a Smoker Recent Foreign Travel: No Contact w/Someone Who Travel: No Recent Infectious Disease Expo: No Recent Hopitalizations: Yes (03/08/16 FOR A-FIB) Immunizations Up To Date Tetanus Booster (TDap): More than 5yrs PED Vaccines UTD: Yes Date of Pneumonia Vaccine: May 10, 2013 Date of Influenza Vaccine: Feb 25, 2016 Seasonal Allergies Seasonal Allergies: Yes Past Medical History Surgeries: Yes (cyst from right armpit removed with skin graft, LEFT SINUS SX) Respiratory: Yes (ASTHMA-MILD, SLEEP APNEA-CPAP) Asthma, Sleep Apnea Currently Using CPAP: Yes Cardiac: Yes (HAS A LINK DEVICE) Atrial Fibrillation, Hypertension Neurological: No Reproductive Disorders: No Female Reproductive Disorders: Denies Sexually Transmitted Disease: No HIV/AIDS: No Gastrointestinal: Yes Gastroesophageal Reflux, Chronic Constipation, Irritable Bowel Musculoskeletal: Yes Arthritis Endocrine: No Loss of Vision: Denies Hearing Impairment: Denies Cancer: No Psychosocial: Yes Anxiety, Depression Integumentary: No Blood Disorders: No Family Medical History Alcoholism Cancer Cancer of colon (GRANDMA) Cataract Dementia Family history: Alzheimer's disease Family history: Arthritis Family history: Diabetes mellitus Family history: Hypertension Family history: Osteoporosis Heart disease History of - anemia History of - respiratory disease Hypercholesterolemia Myocardial infarction Visual impairment No Family History of: Abdominal aortic aneurysm Kenny's disease Aphasia Chest pain Congenital heart disease Congestive heart failure Cystic fibrosis Dysphagia Family history: Allergy Family history: Asthma Family history: Breast disease Family history: Cardiovascular disease Family history: Coronary thrombosis Family history: Gastrointestinal disease Family history: Glaucoma Family history: Thyroid disorder Headache Hearing loss Hereditary disease History of - disorder History of drug abuse Human immunodeficiency virus (HIV) seropositivity Infertile Kidney disease Malignant neoplasm of lung Parkinson's disease Prostate cancer Psychotic disorder Seizure disorder Stroke Tuberculosis No Pertinent Family Hx Physical Exam Vital Signs Vital Signs - First Documented 09/17/18 11:21 Temp 98.0 Pulse 64 Resp 16 B/P (MAP) 115/29 (57) Pulse Ox 99 O2 Delivery Room Air Capillary Refill : Less Than 3 Seconds Height, Weight, BMI Height: 5'1.00" Weight: 260lbs. 8.0oz. 117.737177mx; 43.5 BMI Method:Stated General Appearance: No Apparent Distress, WD/WN, Obese Eyes: Bilateral Eye Normal Inspection, Bilateral Eye PERRL, Bilateral Eye EOMI HEENT: PERRL/EOMI, TMs Normal, Normal ENT Inspection, Pharynx Normal, Moist Mucous Membranes Neck: Full Range of Motion, Normal Inspection, Non Tender, Supple Respiratory: Chest Non Tender, Lungs Clear, Normal Breath Sounds, No Accessory Muscle Use, No Respiratory Distress Cardiovascular: Regular Rate, Rhythm, No Edema, Normal Peripheral Pulses Gastrointestinal: Normal Bowel Sounds, Non Tender, Soft Back: Normal Inspection, No Vertebral Tenderness Extremity: Normal Capillary Refill, No Pedal Edema Neurologic/Psychiatric: Alert, Oriented x3 Skin: Normal Color, Warm/Dry Progress/Results/Core Measures Suspected Sepsis Recent Fever Within 48 Hours: No Infection Criteria Present: None New/Unexplained Altered Menta: No Sepsis Screen: No Definite Risk SIRS Temperature:98.0 Pulse: 64 Respiratory Rate: 16 Laboratory Tests 09/17/18 11:24: White Blood Count 8.2 Blood Pressure 115 /29 Mean: 57 Laboratory Tests 09/17/18 11:24: Creatinine 0.88, INR Comment 0.9, Platelet Count 244, Total Bilirubin 0.2 Results/Orders Lab Results Laboratory Tests Test 09/17/18 11:22 09/17/18 11:24 09/17/18 14:36 Range/Units Thyroid Stimulating Hormone (TSH) 2.24 0.35-4.94 UIU/ML White Blood Count 8.2 4.3-11.0 10^3/uL Red Blood Count 4.48 4.35-5.85 10^6/uL Hemoglobin 12.9 11.5-16.0 G/DL Hematocrit 39 35-52 % Mean Corpuscular Volume 87 80-99 FL Mean Corpuscular Hemoglobin 29 25-34 PG Mean Corpuscular Hemoglobin Concent 33 32-36 G/DL Red Cell Distribution Width 13.8 10.0-14.5 % Platelet Count 244 130-400 10^3/uL Mean Platelet Volume 10.2 7.4-10.4 FL Neutrophils (%) (Auto) 58 42-75 % Lymphocytes (%) (Auto) 32 12-44 % Monocytes (%) (Auto) 6 0-12 % Eosinophils (%) (Auto) 3 0-10 % Basophils (%) (Auto) 1 0-10 % Neutrophils # (Auto) 4.8 1.8-7.8 X 10^3 Lymphocytes # (Auto) 2.6 1.0-4.0 X 10^3 Monocytes # (Auto) 0.5 0.0-1.0 X 10^3 Eosinophils # (Auto) 0.3 0.0-0.3 10^3/uL Basophils # (Auto) 0.1 0.0-0.1 10^3/uL Prothrombin Time 12.8 12.2-14.7 SEC INR Comment 0.9 0.8-1.4 Activated Partial Thromboplast Time 35 24-35 SEC D-Dimer 0.39 0.00-0.49 UG/ML Sodium Level 132 L 135-145 MMOL/L Potassium Level 4.4 3.6-5.0 MMOL/L Chloride Level 100 98-107 MMOL/L Carbon Dioxide Level 21 21-32 MMOL/L Anion Gap 11 5-14 MMOL/L Blood Urea Nitrogen 12 7-18 MG/DL Creatinine 0.88 0.60-1.30 MG/DL Estimat Glomerular Filtration Rate > 60 BUN/Creatinine Ratio 14 Glucose Level 138 H 70-105 MG/DL Calcium Level 8.7 8.5-10.1 MG/DL Corrected Calcium 9.2 8.5-10.1 MG/DL Magnesium Level 1.9 1.8-2.4 MG/DL Total Bilirubin 0.2 0.1-1.0 MG/DL Aspartate Amino Transf (AST/SGOT) 15 5-34 U/L Alanine Aminotransferase (ALT/SGPT) 32 0-55 U/L Alkaline Phosphatase 156 H 40-136 U/L Myoglobin 18.4 10.0-92.0 NG/ML Troponin I < 0.028 < 0.028 <0.028 NG/ML B-Type Natriuretic Peptide 90.9 <100.0 PG/ML Total Protein 6.5 6.4-8.2 GM/DL Albumin 3.4 3.2-4.5 GM/DL My Orders Orders - ANTHONY,JACQUELINE J Cbc With Automated Diff (09/17/18 11:58) Magnesium (09/17/18 11:58) Chest 1 View, Ap/Pa Only (09/17/18 11:58) Ekg Tracing (09/17/18 11:58) Cardiac Profile 1 (09/17/18 11:58) Comprehensive Metabolic Panel (09/17/18 11:58) Myoglobin Serum (09/17/18 11:58) Protime With Inr (09/17/18 11:58) Partial Thromboplastin Time (09/17/18 11:58) O2 (09/17/18 11:58) Monitor-Rhythm Ecg Trace Only (09/17/18 11:58) Lipid Panel (09/18/18 06:00) Ed Iv/Invasive Line Start (09/17/18 11:58) BNP (09/17/18 11:58) Fibrin Degradation Products (09/17/18 11:58) Aspirin Chewable Tablet (Baby Aspirin Ch (09/17/18 12:00) Orthostatic Vital Signs (Adult (09/17/18 11:58) Thyroid Stimulating Hormone (09/17/18 12:01) General/Regular (09/17/18 Lunch) Troponin I (09/17/18 14:33) Medications Given in ED Current Medications Medications Dose Ordered Sig/Delfino Route Start Time Stop Time Status Last Admin Dose Admin Aspirin 162 mg ONCE ONCE PO 09/17/18 12:00 09/17/18 12:01 DC 09/17/18 12:04 162 MG Vital Signs/I&O 09/17/18 09/17/18 11:21 15:09 Temp 98.0 Pulse 64 66 66 70 Resp 16 B/P (MAP) 115/29 (57) 122/68 (86) 110/63 (79) 109/65 (80) Pulse Ox 99 O2 Delivery Room Air Capillary Refill : Less Than 3 Seconds Blood Pressure Mean: 57 Progress Note #1: Time: 12:03 Progress Note Patient has a stated history of atrial fibrillation with no anticoagulation other than aspirin. We'll obtain EKG, orthostatics, chest x-ray. CT of the head. She did not fall or have any trauma to her head or neck. Her symptoms improved but not totally gone away of weakness and moderate dizziness. Before yesterday she's never had this before. We were unable to interrogate her implanted court recording monitor because it is a different brand. According to previous notes in 2017 from cardiology she had nothing on the 30 day monitor so they recommended long-term surveillance with an implanted a monitor. While EMS yesterday saw atrial fibrillation on their monitor by the time the patient arrived she was in a sinus rhythm. Heart rate is in the 50-60 range. Symptomatic bradycardia? Cardiac catheterization [address] Gerardo: Patent epicardial coronary arteries. Mild elevation of the left ventricular end-diastolic pressure suggesting diastolic dysfunction. Progress Note #2: Time: 12:24 Progress Note The patient is comfortable. We reviewed her current labs and chest x-ray with her. Still waiting on troponin and BNP, orthostats. We have spoke to the [employer] human resources hr representative and they said they have up to 3 hours to get out here and do an interrogation. We'll discuss case with Dr. Gerardo when we have all the results. Progress Note #3: Time: 13:40 Progress Note Discussed the case with Domenico Leone the human resources hr representative from the [employer] of her implanted cardiac monitoring device. He states there was a patient triggered alarm at 09/16/18 1734 which showed nothing interesting 75 heart rate normal sinus rhythm. Prior to that however at 1620 was an automatic trigger showing bradycardia with a 2 second pause. The threshold for bradycardia is below 40 bpm. He says if the patient is admitted he would be down here Tuesday, 2 days from now and can do a full interrogation of the device and get more data. Progress Note #4: Time: 15:28 Progress Note Orthostatics are unremarkable. ECG Initial ECG Impression Date: September 17, 2018 Initial ECG Impression Time: 11:27 Initial ECG Rate: 61 Initial ECG Rhythm: Normal Sinus Initial ECG Intervals: Normal Initial ECG Impression: Normal, Nonspecific Changes Initial ECG Comparisson: Unchanged Comment Elevation or depression. No dysrhythmia, sinus rhythm. Diagnostic Imaging Diagonstic Imaging: Xray Plain Films/CT/US/NM/MRI: chest (1v) Comments NAME: ELIZABETH ESPITIA MED REC#: [id number] PT STATUS: REG ER : 1960 PHYSICIAN: JACQUELINE CRUZ MD ADMIT DATE: 09/17/18/ER Draft Date of Exam:09/17/18 CHEST 1 VIEW, AP/PA ONLY Indication: Dyspnea for 2 days. Comparison: 05/16/2016. Discussion: Single portable upright view of the chest was obtained. Stable normal heart size. Implantable loop recorder is noted. No focal consolidation, pleural fluid, or pneumothorax. No osseous abnormality. Impression: 1. Negative chest. Dictated on workstation # [id number] Dict: 09/17/18 1211 Trans: 09/17/18 1214 [id number] Interpreted by: KELY CALLES MD Electronically signed by: Reviewed: Reviewed by Me Consults Consults : Consulting Physician: Rita GERARDO MD Consults Notes Discussed case lab imaging EKG findings and he agrees with the plan to get some orthostatics and interrogate the device and then call him back. He remembers the patient and states they never did find in over a year any evidence of atrial fibrillation. 1500: we discussed the outcome of the interrogation and he recommends that we discontinue the metoprolol and have her follow-up in the clinic Tuesday. Call tomorrow for an appointment. Departure Impression Primary Impression: Syncope, near Disposition: 01 HOME, SELF-CARE Condition: Stable Departure-Patient Inst. Decision time for Depature: 15:04 Referrals: DEISREE SPENCE MD (PCP/Family) Primary Care Physician Patient Instructions: Near Fainting (DC) Add. Discharge Instructions: Stop using your metoprolol today. Tomorrow call Dr. Gerardo's office and request an appointment Tuesday. All discharge instructions reviewed with patient and/or family. Voiced understanding. JACQUELINE CRUZ September 17, 2018 11:39
--- OUTSIDE RECORDS SUMMARY | 2018-09-17 11:39 | XMS REPORT ---
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 Design Engineer Name Role Phone CAMPBELL SPENCEHANY Unavailable PROBLEMS Type Condition ICD9-CM Code RTY26-ZW Code Onset Dates Condition Status SNOMED Code Problem Vitamin D deficiency E55.9 Active 56191924 Problem Chronic frontal sinusitis J32.1 Active 31542564 Problem Hyponatremia E87.1 Active 56833510 Problem BMI 40.0-44.9, adult Z68.41 Active 563348635 Problem Seasonal allergies J30.2 Active 539531262 Problem Secondary pulmonary arterial hypertension I27.21 Active 06314056 Problem Other chronic gastritis without hemorrhage K29.50 Active 7462100 Problem Paroxysmal atrial fibrillation I48.0 Active 677049764 Problem Fasciculations of muscle R25.3 Active 86314993 Problem Depression, unspecified depression type F32.9 Active 40512752 Problem Mild intermittent asthma without complication J45.20 Active 525187349 Problem Chronic migraine G43.709 Active 17027450 Problem Primary insomnia F51.01 Active 648338995 Problem Generalized anxiety disorder F41.1 Active 246212301 Problem Elevated alkaline phosphatase level R74.8 Active 659320857 Problem Obstructive sleep apnea G47.33 Active 67309762 Problem Hidradenitis L73.2 Active 92053602 Problem Essential hypertension I10 Active 16110519 Problem Idiopathic peripheral neuropathy G60.9 Active 59778698 Problem Hyperlipidemia E78.5 Active 15021008 ALLERGIES No Information ENCOUNTERS Encounter Location Date Diagnosis [facility] [address], [place] [address] Feb, Intertrigo L30.4 and Encounter for immunization Z23 [facility] [address] [address] Feb, [facility] [address], [place] [address] 9730 27 Jan, 2018 Essential hypertension I10 [facility] [address], [place] [address] 4981 26 Jan, 2018 [facility] [address], [place] [address] Jan, Screening for cervical cancer Z12.4 ; BMI 40.0-44.9, adult Z68.41 ; Screening for breast cancer Z12.31 ; Candidal intertrigo B37.2 and Elevated glucose level R73.09 [facility] [address], [place] [address] 12 Jan, 2018 Essential hypertension I10 [facility] [address], [place] [address] 64[address] Dec, [facility] [place] [id number] [place] [address] 92934- 1559 Dec, [facility] [address], [place] [address] 7795 Dec, Essential hypertension I10 [facility] [address], [place] [address] 6840 Nov, Essential hypertension I10 [facility] [place] [address], [place] [address]- 0[address] Nov, [facility] [address], [place] [address] 0[address] Nov, Essential hypertension I10 and BMI 40.0-44.9, adult Z68.41 [facility] [address], [place] [address] 0[address] Oct, Essential hypertension I10 and Chronic kidney disease, unspecified CKD stage N18.9 [facility] [address], [place] [address] 0462 Oct, Essential hypertension I10 and Chronic kidney disease, unspecified CKD stage N18.9 [facility] [id number] [place] [address] 97219- 2311 Oct, [place] [address] [address]- [address] September, Medicare annual wellness visit, initial Z00.00 ; Mild intermittent asthma without complication J45.20 ; Generalized anxiety disorder F41.1 ; Depression, unspecified depression type F32.9 ; Paroxysmal atrial fibrillation I48.0 ; Obstructive sleep apnea G47.33 ; Hyponatremia E87.1 ; Need for hepatitis C screening test Z11.59 ; Encounter for immunization Z23 ; Secondary pulmonary arterial hypertension I27.21 and BMI 40.0-44.9, adult Z68.41 [facility] [place] [address] [address]- 7495 30 Aug, 2017 Essential hypertension I10 [facility] [address] [address] Jun, Dysuria R30.0 ; UTI symptoms R39.9 and Candidiasis of breast B37.89 [place] [place] [address] [address]- 4759 Jun, Hyponatremia E87.1 [place] [place] [address] [address]- 1191 Jun, Hyponatremia E87.1 [place] [address] 04568- 5866 Jun, Hyponatremia E87.1 [facility] [place] [id number] [place] [address] 95155- 3390 Jun, [place] [address] 82199- 2770 May, Hyponatremia E87.1 [facility] [address] 04467- 5985 May, Hyponatremia E87.1 [place] [address] [address]- 2142 May, Hyponatremia E87.1 [facility] [id number] [place] [address] 35000- 2820 May, Hyponatremia E87.1 [facility] [id number] [place] [address] 14569- 9692 Apr, Hyponatremia E87.1 ; Fasciculations of muscle R25.3 and Hyperlipidemia E78.5 [facility] [id number] [place] [address] 16676- 0332 Apr, Cough R05 ; Hyponatremia E87.1 ; Fasciculations of muscle R25.3 ; Primary insomnia F51.01 ; Essential hypertension I10 ; Hyperlipidemia E78.5 ; Screening for breast cancer Z12.31 and BMI 40.0-44.9, adult Z68.41 [place] [place] [id number] [place] [address] 26178- 9789 Apr, Essential hypertension I10 [facility] [id number] [place] [address] 24994- 9782 Mar, [facility] [id number] [place] [address] 98004- 1877 Mar, [facility] [id number] [place] [address] 93992- 1182 Mar, [facility] [id number] [place] [address] 15462- 3871 Feb, [facility] [id number] [place] [address] 12346- 7713 Jan, [facility] [id number] [place] [address] 16314- 8099 Dec, Essential hypertension I10 [facility] [id number] [place] [address] 55550- 8868 Dec, [facility] [id number] [place] [address] 33407- 1462 Dec, Essential hypertension I10 [facility] [address], [place] [address]- 8516 Nov, [facility] [id number] [place] [address] 16300- 3166 Oct, Essential hypertension I10 [facility] [id number] [place] [address] 95018- 4148 Oct, Essential hypertension I10 [facility] [id number] [place] [address] 28926- 4476 Oct, [facility] [id number] [place] [address] 46739- 9757 September, [facility] [id number] [place] [address] 95775- 2739 September, Essential hypertension I10 [facility] [id number] [place] [address] 64195- 8515 September, [facility] [id number] [place] [address] 92003- 7586 September, Essential hypertension I10 ; Hyperlipidemia E78.5 and Hyponatremia E87.1 [place] [id number] [place] [address] 29738- 0966 September, Mild intermittent asthma without complication J45.20 ; Essential hypertension I10 ; Hyperlipidemia E78.5 ; Hyponatremia E87.1 and Dysuria R30.0 [facility] [address] [place] [address] 45445- 6668 September, Other chronic gastritis without hemorrhage K29.50 ; Paroxysmal atrial fibrillation I48.0 and Essential hypertension I10 [facility] [id number] [place] [address] 40372- 2966 Aug, [facility] [id number] [place] [address] 43691- 2602 Jul, [facility] [id number] [place] [address] 95417- 7523 14 Jun, 2016 [facility] [address] [place] [address] 97379 -5364 07 Jun, 2016 Dysuria R30.0 and Acute cystitis with hematuria N30.01 [facility] [id number] [place] [address] 30482- 7869 01 Jun, 2016 Essential hypertension I10 [facility] [address] [address]- 1894 May, Paroxysmal atrial fibrillation I48.0 [facility] [id number] [place] [address] 97189- 6964 May, Other chronic gastritis without hemorrhage K29.50 [facility] [address] 25735- 2654 May, [facility] [address] 76363- 8250 May, Hyponatremia E87.1 ; Essential hypertension I10 and Other chronic gastritis without hemorrhage K29.50 [facility] [id number] [place] [address] 92449- 6656 May, Hyponatremia E87.1 [facility] [id number] [place] [address] 51036- 9118 May, Hyponatremia E87.1 [facility] [address] [id number] [place] [address] [id number] May, [facility] [id number] [place] [address] 69332- 3585 Apr, [facility] [id number] [place] [address] 96478- 4872 Apr, [facility] [id number] [place] [address] 36615- 8533 Mar, Essential hypertension I10 and Candidal intertrigo B37.2 [facility] [id number] [place] [address] 69395- 3656 Mar, Hyponatremia E87.1 [facility] [id number] [place] [address] 77561- 6283 Mar, [facility] [id number] [place] [address] 30384- 9195 Mar, Hyponatremia E87.1 [facility] [address] 92512- 6072 Mar, Essential hypertension I10 ; Hyponatremia E87.1 ; Slurred speech R47.81 ; Paroxysmal atrial fibrillation I48.0 and Elevated blood sugar R73.9 [facility] [address] 96973- 6979 Mar, [facility] [address] 60798- 4456 Mar, [facility] [address] 49775- 0027 Feb, [facility] [id number] [place] [address] 21592- 2438 Jan, [facility] [address] 09015- 6942 Dec, [facility] [id number] [place] [address] 88791 -5930 Nov, Scratched by cat, initial encounter W55.03XA and Other injury of unspecified body region T14.8 [facility] [id number] [place] [address] 91119- 0191 Nov, [facility] [id number] [place] [address] 73121- 8713 Oct, [facility] [id number] [place] [address] 99883- 0932 September, [facility] [id number] [place] [address] 82135- 1359 Aug, Elevated alkaline phosphatase level R74.8 [place] [address] [place] [address] 62723- 5143 10 Jul, 2015 [place] [id number] [place] [address] 97619- 9010 Jun, Essential hypertension I10 and Bright red blood per rectum K62.5 [place] [id number] [place] [address] 04909- 0831 Jun, Elevated alkaline phosphatase level R74.8 [place] [id number] [place] [address] 33806- 8348 Jun, [place] [address] 08527- 5620 May, Essential hypertension I10 ; Hyperlipidemia E78.5 and Well woman exam (no gynecological exam) Z00.00 [place] [id number] [place] [address] 06780- 3354 May, [place] [id number] [place] [address] 79627- 7451 May, [place] [id number] [place] [address] 95024- 2972 Mar, [place] [id number] [place] [address] 56446- 0979 Mar, [place] [id number] [place] [address] 82162- 4662 Mar, [place] [id number] [place] [address] 16446- 2701 Feb, Acute recurrent maxillary sinusitis J01.01 ; Asthma, unspecified, unspecified status 493.90 ; Seasonal allergies J30.2 and Cat allergies J30.81 [place] [address] [place] [address] 80950- 6937 13 Feb, 2015 Upper respiratory tract infection, unspecified upper respiratory infection J06.9 [place] [id number] [place] [address] 76215- 5255 Jan, [facility] [id number] [place] [address] 21753- 1638 Jan, Dysphagia 787.20 and GERD (gastroesophageal reflux disease) 530.81 [facility] [id number] [place] [address] 90922- 2546 Jan, Breast lesion 611.9 [facility] [id number] [place] [address] 12315- 5696 Dec, Breast lesion 611.9 [facility] [id number] [place] [address] 94605- 0196 Dec, Breast lesion 611.9 [facility] [id number] [place] [address] 45945- 0886 Nov, Fatigue 780.79 and Hyperlipidemia 272.4 [facility] [id number] [place] [address] 71421- 9929 Nov, Hypertension 401.9 ; Hyperlipidemia 272.4 ; Chronic frontal sinusitis 473.1 and Fatigue 780.79 [facility] [id number] [place] [address] 88729- 1538 Nov, [facility] [id number] [place] [address] 51165- 4726 Oct, [facility] [address] [place] [address] 30401- 4624 Oct, [facility] [address], [place] [address]- 3506 September, [facility] [id number] [place] [address] 48206- 6416 September, [facility] [id number] [place] [address] 71605- 2906 September, [facility] [address], [place] [address]- 0536 September, [facility] [place] [facility] [address] [id number] [place] [address]- 0170 28 Aug, 2014 [facility] [place] [facility] [address] [id number] [place] [address]- 3968 14 Aug, 2014 [facility] [place] [facility] [address] [id number] [place] [address]- 9456 13 Aug, 2014 [facility] [place] [facility] [address] [id number] [place] [address]- 1899 20 Jul, 2014 [facility] [place] [facility] [address] [id number] [place] [address]- 1046 20 Jul, 2014 [facility] [place] [facility] [address] [id number] [place] [address]- 0827 19 Jul, 2014 [facility] [place] [facility] [address] [id number] [place] [address]- 7569 19 Jul, 2014 [facility] [place] [facility] [address] [id number] [place] [address]- 7310 18 Jul, 2014 [facility] [place] [facility] [address] [id number] [place] [address]- 4015 17 Jul, 2014 [facility] [place] [facility] [address] [id number] [place] [address]- 8111 17 Jul, 2014 [facility] [place] [facility] [address] [id number] [place] [address]- 7389 16 Jul, 2014 [facility] [place] [facility] [address] [id number] [place] [address]- 8510 16 Jul, 2014 [facility] [place] [facility] [address] [id number] [place] [address]- 0112 12 Jul, 2014 [facility] [place] [facility] [address] [id number] [place] [address]- 6420 12 Jul, 2014 [facility] [place] [facility] [address] [id number] [place] [address]- 3156 09 Jul, 2014 [facility] [place] [facility] [address] [id number] [place] [address]- 6858 Jul, [facility] [place] [facility] [address] [id number] [place] [address]- 0704 Jul, [facility] [place] [facility] [address] [id number] [place] [address]- 2025 Jul, [facility] [place] [facility] [address] [id number] [place] [address]- 6964 Jun, [facility] [place] [facility] [address] [id number] [place] [address]- 7003 Jun, [facility] [place] [facility] [address] [id number] [place] [address]- 6658 Jun, [facility] [place] [facility] [address] [id number] [place] [address]- 7925 Jun, [facility] [place] [facility] [address] [id number] [place] [address]- 5110 May, [facility] [place] [facility] [address] [id number] [place] [address]- 0184 May, [facility] [place] [facility] [address] [id number] [place] [address]- 5231 May, [facility] [place] [facility] [address] [id number] [place] [address]- 8748 May, [facility] [place] [facility] [address] [id number] [place] [address]- 2386 Apr, [facility] [place] [facility] [address] [id number] [place] [address]- 7644 Apr, [facility] [place] [facility] [address] [id number] [place] [address]- 0242 Apr, [facility] [place] [facility] [address] [id number] [place] [address]- 9934 Apr, [facility] [place] [facility] [address] [facility] [id number] [place] [address]- 6639 Apr, [facility] [place] [facility] [address] [id number] [place] [address]- 1628 Apr, [facility] [place] [facility] [address] [id number] [place] [address]- 3315 Mar, [facility] [place] [facility] [address] [id number] [place] [address]- 9545 Mar, [facility] [place] [facility] [address] [id number] [place] [address]- 3970 Mar, [facility] [place] [facility] [address] [id number] [place] [address]- 1374 Mar, [facility] [place] [facility] [address] [id number] [place] [address]- 0010 Mar, [facility] [place] [facility] [address] [id number] [place] [address]- 9755 Mar, [facility] [place] [facility] [address] [id number] [place] [address]- 2525 Mar, [facility] [place] [facility] [address] [id number] [place] [address]- 1941 Mar, [facility] [place] [facility] [address] [id number] [place] [address]- 8283 Mar, [facility] [place] [facility] [address] [id number] [place] [address]- 5986 Mar, [facility] [place] [facility] [address] [id number] [place] [address]- 5061 Mar, [facility] [place] [facility] [address] [id number] [place] [address]- 6000 Mar, [facility] [place] [facility] [address] [id number] [place] [address]- 6354 Mar, [facility] [place] [facility] [address] [id number] [place] [address]- 2774 Mar, [facility] [place] [facility] [address] [id number] [place] [address]- 9319 Mar, [facility] [place] [facility] [address] [id number] [place] [address]- 6449 Mar, [facility] [place] [facility] [address] [id number] [place] [address]- 5648 Mar, [facility] [place] [facility] [address] [id number] [place] 1625 Feb, [facility] [place] [facility] [address] [id number] [place] [address]- 6447 Feb, [facility] [place] [facility] [address] [id number] [place] [address]- 0925 Feb, [facility] [place] [facility] [address] [id number] [place] [address]- 1752 Feb, [facility] [place] [facility] [address] [id number] [place] [address]- 0315 Feb, [facility] [place] [facility] [address] [id number] [place] [address]- 4458 Feb, [facility] [place] [facility] [address] [id number] [place] [address]- 5778 Feb, [facility] [place] [facility] [address] [id number], [place] [address]- 0611 Feb, [facility] [place] [facility] [address] [id number], [place] [address]- 8264 Feb, [facility] [place] [facility] [address] [id number], [place] [address]- 5030 28 Feb, 2014 [facility] [place] [facility] [address] [id number] [place] [address]- 0176 Feb, [facility] [place] [facility] [address] [id number] [place] [address]- 1145 16 Feb, 2014 [facility] [place] [facility] [address] [id number] 0988 15 Feb, 2014 [facility] [place] [facility] [address] [id number], [place] [address]- 3717 15 Feb, 2014 [facility] [place] [facility] [address] [id number] [place] [address]- 8746 Feb, [facility] [place] [facility] [address] [id number] [place] [address]- 5694 Feb, [facility] [place] [facility] [address] [id number] [place] [address] Feb, [facility] [place] [facility] [address] [id number] [place] [address] Feb, [facility] [place] [facility] [address] [id number] [place] [address] Feb, [facility] [place] [facility] [address] [id number] [place] [address] 30 Jan, 2014 [facility] [place] [facility] [address] [id number] [place] [address] 30 Jan, 2014 [facility] [place] [facility] [address] [id number] [place] [address] 29 Jan, 2014 [facility] [place] [facility] [address] [id number] [place] [address] 29 Jan, 2014 [facility] [place] [facility] [address] [facility] [place] [id number] [place] [address] 24 Jan, 2013 [facility] [place] [facility] [address] [id number] [place] [address] 24 Jan, 2013 [facility] [place] [facility] [address] [id number] [place] [address] 10 Jan, 2014 [facility] [place] [facility] [address] [id number] [place] [address] 08 Jan, 2013 [facility] [place] [facility] [address] [facility] [place] [id number] [place] [address] 08 Jan, 2013 [facility] [place] [facility] [address] [facility] [place] [id number] [place] [address] Dec, [facility] [place] [facility] [address] [id number] [place] [address] Dec, [facility] [place] [facility] [address] [id number] [place] [address] Dec, [facility] [place] [facility] [address] [id number] [place] [address] Dec, [facility] [place] [facility] [address] [id number] [place] [address] Dec, [facility] [place] [facility] [address] [id number] [place] [address] Dec, [facility] [place] [facility] [address] [id number] [place] [address] Dec, [facility] [place] [facility] [address] [id number] [place] [address] Dec, [facility] [place] [facility] [address] [id number] [place] [address] Dec, [facility] [place] [facility] [address] [id number] [place] [address] Nov, [facility] [place] [facility] [address] [id number] [place] [address]- [address] Nov, [facility] [place] [facility] [address] [id number] [place] [address] Nov, [facility] [place] [facility] [address] [id number] [place] [address] Nov, [facility] [place] [facility] [address] [id number] [place] [address] Nov, [facility] [place] [facility] [address] [id number] [place] [address] Nov, [facility] [place] [facility] [address] [id number] [place] [address] Oct, [facility] [place] [facility] [address] [id number] [place] [address] Oct, [facility] [place] [facility] [address] [id number] [place] [address] Oct, [facility] [place] [facility] [address] [id number] [place] [address] Oct, [facility] [place] [facility] [address] [id number] [place] [address] Oct, [facility] [place] [facility] [address] [id number] [place] [address] Oct, [facility] [place] [facility] [address] [id number] [place] [address] Oct, [facility] [place] [facility] [address] [id number] [place] [address] Oct, [facility] [place] [facility] [address] [id number] [place] [address] 1552 Oct, [facility] [place] [facility] [address] [id number] [place] [address]309 Oct, [facility] [place] [facility] [address] [id number] [place] [address]- 2298 Oct, [facility] [place] [facility] [address] [id number] [place] [address] 4815 Oct, [facility] [place] [facility] [address] [id number] [place] [address] 8640 Oct, [facility] [place] [facility] [address] [id number], [place] [address] Oct, [facility] [place] [facility] [address] [id number] [place] [address]116 September, [facility] [place] [facility] [address] [id number] [place] [address] 4927 September, [facility] [place] [facility] [address] [id number] [place] [address]- 8060 September, [facility] [place] [facility] [address] [id number] [place] [address]- 8837 September, [facility] [address] [id number] [place] [address] 6083 September, [facility] [place] [facility] [address] [id number] [place] [address] 0073 September, [facility] [address] [id number] [place] [address]- 0040 September, [facility] [place] [facility] [address] [id number] [place] [address]- 5581 September, [facility] [place] [facility] [address] [id number] [place] [address]- 2501 September, [facility] [place] [facility] [address] [id number] [place] [address]- 3633 September, [facility] [address] [id number] [place] [address]- 8925 September, [facility] [address] [id number] [place] [address]- 4[address] September, [facility] [place] [facility] [address] [id number] [place] [address]- 6889 September, [facility] [address] [id number] [place] [address]- 5237 September, [facility] [place] [facility] [address] [id number] [place] [address]- 4219 September, [facility] [place] [facility] [address] [id number] [place] [address]- 5180 September, [facility] [place] [facility] [address] [id number] [place] [address]- 6557 September, [facility] [place] [facility] [address] [id number] [place] [address]- 5684 September, [facility] [place] [facility] [address] [id number] [place] [address]- 1564 September, [facility] [place] [facility] [address] [id number] [place] [address]- 6207 08 Aug, 2013 [facility] [place] [facility] [address] [id number] [place] [address]- 8951 08 Aug, 2013 [facility] [place] [facility] [address] [id number] [place] [address]- 5785 31 Jul, 2013 [facility] [place] [facility] [address] [id number] [place] [address]- 8806 31 Jul, 2013 [facility] [place] [facility] [address] [id number] [place] [address]- 8647 28 Jul, 2013 [facility] [place] [facility] [address] [id number] [place] [address]- 8152 28 Jul, 2013 [facility] [place] [facility] [address] [id number] [place] [address]- 6130 27 Jul, 2013 [facility] [place] [facility] [address] [id number] [place] [address]- 8297 27 Jul, 2013 [facility] [place] [facility] [address] [id number] [place] [address]- 5099 27 Jul, 2013 [facility] [place] [facility] [address] [id number] [place] [address]- 6356 27 Jul, 2013 [facility] [place] [facility] [address] [id number] [place] [address]- 5154 25 Jul, 2013 [facility] [place] [facility] [address] [id number] [place] [address]- 0734 25 Jul, 2013 [facility] [place] [facility] [address] [id number] [place] [address]- 7062 14 Jul, 2013 [facility] [place] [facility] [address] [id number] [place] [address]- 3488 14 Jul, 2013 [facility] [place] [facility] [address] [id number] [place] [address]- 6094 07 Jul, 2013 [facility] [place] [facility] [address] [id number] [place] [address]- 8868 Jul, [facility] [place] [facility] [address] [id number] [place] [address]- 8882 Jun, [facility] [place] [facility] [address] [id number] [place] [address]- 2092 Jun, [facility] [place] [facility] [address] [id number] [place] [address]- 2160 Jun, [facility] [place] [facility] [address] [id number] [place] [address]- 5451 Jun, [facility] [place] [facility] [address] [id number] [place] [address]- 7531 May, [facility] [place] [facility] [address] [id number] [place] [address]- 7516 May, [facility] [place] [facility] [address] [id number] [place] [address]- 7788 May, [facility] [place] [facility] [address] [id number] [place] [address]- 5491 May, [facility] [place] [facility] [address] [facility] [place] [id number] [place] [address]- 7681 May, [facility] [place] [facility] [address] [facility] [place] [id number] [place] [address]- 8046 Mar, [facility] [place] [facility] [address] [id number] [place] [address]- 0185 Mar, [facility] [place] [facility] [address] [id number] [place] [address]- 5933 Mar, [facility] [place] [facility] [address] [id number] [place] [address]- 2243 Mar, [facility] [place] [facility] [address] [id number] [place] [address]- 4179 Mar, [facility] [place] [facility] [address] [facility] [place] [id number] [place] [address]- 2140 Mar, [facility] [place] [facility] [address] [id number] [place] [address]- 7795 Feb, [facility] [place] [facility] [address] [id number] [place] [address]- 2722 Feb, [facility] [place] [facility] [address] [id number] [place] [address]- 5344 Feb, [facility] [place] [facility] [address] [id number] [place] [address]- 0881 Feb, [facility] [place] [facility] [address] [id number] [place] [address]- 1585 Feb, [facility] [place] [facility] [address] [id number] [place] [address]- 9137 Feb, [facility] [place] [facility] [address] [id number] [place] [address]- 5379 Feb, [facility] [place] [facility] [address] [id number] [place] [address]- 9131 Feb, [facility] [place] [facility] [address] [id number] [place] [address]- 5775 Feb, [facility] [place] [facility] [address] [id number] [place] [address]- 0034 Feb, [facility] [place] [facility] [address] [id number] [place] [address]- 1118 Feb, [facility] [place] [facility] [address] [id number] [place] [address]- 2482 Feb, [facility] [place] [facility] [address] [id number] [place] [address]- 8605 Jan, [facility] [place] [facility] [address] [id number] [place] [address]- 9228 Jan, [facility] [place] [facility] [address] [id number] [place] [address]- 1534 Dec, [facility] [place] [facility] [address] [id number] [place] [address]- 1108 Dec, [facility] [place] [facility] [address] [id number] [place] [address]- 8952 Nov, [facility] [place] [facility] [address] [id number] [place] [address]- 9009 Nov, [facility] [place] [facility] [address] [id number] [place] [address]- 9074 Nov, [facility] [place] [facility] [address] [id number] [place] [address]- 9636 Nov, [facility] [place] [facility] [address] [id number] [place] [address]- 3739 Nov, [facility] [place] [facility] [address] [id number] [place] [address]- 4959 Oct, [facility] [place] [facility] [address] [id number] [place] [address]- 5522 September, [facility] [place] [facility] [address] [id number] [place] [address]- 0981 Aug, [facility] [place] [facility] [address] [id number] [place] [address]- 5244 Jul, [facility] [place] [facility] [address] [id number] [place] [address]- 8543 Jul, [facility] [place] [facility] [address] [id number] [place] [address]- 4555 Jul, [facility] [place] [facility] [address] [id number], [place] [address]- 4919 Jun, [facility] [place] [facility] [address] [id number] [place] [address]- 9519 Jun, [facility] [place] [facility] [address] [id number] [place] [address]- 4180 Jun, [facility] [place] [facility] [address] [id number] [place] [address]- 8666 Jun, [facility] [place] [facility] [address] [id number] [place] [address]- 5838 Jun, [facility] [address] [id number] [place] [address]- 9629 May, [facility] [place] [facility] [address] [id number] [place] [address]- 3699 May, [facility] [address] [id number] [place] [address]- 4152 Apr, [facility] [address] [id number] [place] [address]- 0245 Apr, [facility] [address] [id number] [place] [address]- 5630 Mar, [facility] [address] [facility] [place] [id number] [place] [address]- 2144 Mar, [facility] [address] [id number] [place] [address]- 3298 Mar, [facility] [address] [id number] [place] [address]- 5123 Mar, [facility] [address] [id number] [place] [address]- 2163 Mar, [facility] [address] [facility] [place] [id number] [place] [address]- 0456 Mar, [facility] [place] [facility] [address] [id number] [place] [address]- 0949 Mar, [facility] [place] [facility] [address] [id number] [place] [address]- 7960 Mar, [facility] [place] [facility] [address] [id number] [place] [address]- 1976 Mar, [facility] [place] [facility] [address] [facility] [id number] [place] [address]- 2153 Mar, [facility] [place] [facility] [address] [id number] [place] [address]- 7832 Feb, [facility] [place] [facility] [address] [id number] [place] [address]- 6798 Feb, [facility] [place] [facility] [address] [id number] [place] [address]- 5721 Feb, [facility] [place] [facility] [address] [id number] [place] [address]- 5433 Feb, [facility] [place] [facility] [address] [id number] [place] [address]- 0488 Feb, [facility] [place] [facility] [address] [id number] [place] [address]- 3754 Feb, [facility] [place] [facility] [address] [id number] [place] [address]- 7213 Jan, [facility] [place] [facility] [address] [id number] [place] [address]- 1723 Jan, [facility] [place] [facility] [address] [id number] [place] [address]- 2532 Dec, [facility] [place] [facility] [address] [id number] [place] [address]- 5613 Dec, [facility] [place] [facility] [address] [id number], [place] [address]- 5706 Dec, [facility] [place] [facility] [address] [id number], [place] [address]- 9995 Nov, [facility] [place] [facility] [address] [id number], [place] [address]- 4788 September, [facility] [place] [facility] [address] [id number] [place] [address]- 2433 September, [facility] [place] [facility] [address] [id number] [place] [address]- 6596 September, [facility] [place] [facility] [address] [id number], [place] [address]- 5699 September, [facility] [place] [facility] [address] [id number], [place] [address]- 8171 23 Aug, 2011 [facility] [address] [id number] [place] [address]- 8260 20 Aug, 2011 [facility] [place] [facility] [address] [facility] [id number] [place] [address]- 8356 19 Aug, 2011 [facility] [id number] [place] [address]- 3838 10 Aug, 2011 [facility] [place] [facility] [address] [facility]] [id number] [place] [address]- 9323 05 Aug, 2011 [facility] [id number] [place] [address]- 6467 13 Jul, 2011 [facility] [place] [facility] [id number] [place] [address]- 7165 05 Jul, 2011 [facility] [id number] [place] [address]- 0747 Jul, [facility] [id number] [place] [address]- 0571 29 Jun, 2011 [facility] [id number] [place] [address]- 1532 17 Jun, 2011 [facility] [id number] [place] [address]- 7423 13 Jun, 2011 [facility] [place] [facility] [id number] [place] [address]- 5890 10 Jun, 2011 [facility] [place] [facility] [id number] [place] [address]- 8498 07 Jun, 2011 [facility] [place] [facility] [address] [id number] [place] [address]- 1058 03 Jun, 2011 [facility] [place] [facility] [address] [id number] [place] [address]- 9826 03 Jun, 2011 [facility] [place] [facility] [id number] [place] [address]- 8037 May, [facility] [address] [id number] [place] [address]- 2628 May, [facility] [place] [facility] [address] [id number] [place] [address]- 8034 May, [facility] [place] [facility] [address] [id number] [place] [address]- 1866 May, [facility] [place] [facility] [address] [id number] [place] [address]- 0745 Apr, [facility] [address] [id number] [place] [address]- 7532 Apr, [facility] [place] [facility] [address] [id number] [place] [address]- 6929 Mar, [facility] [place] [facility] [address] [id number] [place] [address]- 2911 Mar, [facility] [address] [id number] [place] [address]- 2432 Mar, [facility] [place] [facility] [address] [id number] [place] [address]- 9019 Nov, [facility] [place] [facility] [address] [id number] [place] [address]- 3667 May, [facility] [place] [facility] [address] [id number] [place] [address]- 1051 Apr, [facility] [place] [facility] [address] [id number], [place] [address]- 6416 Apr, [facility] [place] [facility] [address] [id number] [place] [address]- 3679 Apr, [facility] [place] [facility] [address] [id number] [place] [address]- 7586 Apr, [facility] [place] [facility] [address] [id number], [place] [address]- 4741 Apr, [facility] [place] [facility] [address] [id number], [place] [address]- 0576 Mar, [facility] [id number], [place] [address]- 8216 Mar, [facility] [id number], [place] [address]- 2516 Feb, [facility] [id number], [place] [address]- 2636 Aug, [facility] [id number] [place] [address]14- 8911 Jul, [facility] [id number] [place] [address] 23469- 1786 Jun, [facility] [id number] [place] [address] 926[address]- 4576 Apr, [facility] [id number] [place] [address] 35959- 2786 Apr, [facility] [id number], [place] [address]- 8600 Mar, [facility] [id number] [place] [address] 67449- 5159 Mar, [facility] [id number], [place] [address]- 0976 Feb, [facility] [id number], [place] [address]- 4364 Dec, [facility] [id number], [place] [address]- 1006 Oct, IMMUNIZATIONS No Known Immunizations SOCIAL HISTORY Never Assessed REASON FOR VISIT Med refill request PLAN OF CARE VITAL SIGNS MEDICATIONS Unknown [...] Hospitalization History surgery 2013 Hospitalization History A Fib--[facility] 03/08/2016 Hospitalization History acute chest pain, hypertensive urgency, paroxsysmal htn-[facility] 05/10/16
--- OUTSIDE RECORDS SUMMARY | 2018-09-17 11:40 | XMS REPORT ---
Author Author JORDY DESIREE [facility] Address [address] [place] [address] Care Team Providers Care [place] Tender Name Role Phone DESIREE SPENCE Unavailable PROBLEMS Type Condition ICD9-CM Code TCP66-BA Code Onset Dates Condition Status SNOMED Code Problem Vitamin D deficiency E55.9 Active 08018824 Problem Chronic frontal sinusitis J32.1 Active 20118050 Problem Hyponatremia E87.1 Active 86856333 Problem BMI 40.0-44.9, adult Z68.41 Active 918447292 Problem Seasonal allergies J30.2 Active 195602450 Problem Secondary pulmonary arterial hypertension I27.21 Active 94528256 Problem Other chronic gastritis without hemorrhage K29.50 Active 5147905 Problem Paroxysmal atrial fibrillation I48.0 Active 418019390 Problem Fasciculations of muscle R25.3 Active 21100849 Problem Depression, unspecified depression type F32.9 Active 77768407 Problem Mild intermittent asthma without complication J45.20 Active 039710456 Problem Chronic migraine G43.709 Active 81442603 Problem Primary insomnia F51.01 Active 450016451 Problem Generalized anxiety disorder F41.1 Active 328621739 Problem Elevated alkaline phosphatase level R74.8 Active 017784622 Problem Obstructive sleep apnea G47.33 Active 64027788 Problem Hidradenitis L73.2 Active 40720976 Problem Essential hypertension I10 Active 65015116 Problem Idiopathic peripheral neuropathy G60.9 Active 25579175 Problem Hyperlipidemia E78.5 Active 73149463 ALLERGIES No Information ENCOUNTERS Encounter Location Date Diagnosis [facility] [place] [address] [address] Jan, Essential hypertension I10 [facility] [place] [address], [place] [address] Jan, [facility] [place] [address], [place] [address] 21 Jan, 2018 Screening for cervical cancer Z12.4 ; BMI 40.0-44.9, adult Z68.41 ; Screening for breast cancer Z12.31 ; Candidal intertrigo B37.2 and Elevated glucose level R73.09 [facility] [address] [address] 12 Jan, 2018 Essential hypertension I10 [facility] [place] [address] [place] [id number] [place] [address] 37001- 8046 Dec, [facility] [place] [id number] [place] [address] 95209- 2990 Dec, [place] [id number] [place] [address] 89181- 4899 Dec, Essential hypertension I10 [facility] [place] [id number] [address] 4720 Nov, Essential hypertension I10 [facility] [place] [id number] [place] [address] 55935- 2685 Nov, [place] [id number] [place] [address] 36831- 4376 Nov, Essential hypertension I10 and BMI 40.0-44.9, adult Z68.41 [facility] [address], [place] [address] 2692 Oct, Essential hypertension I10 and Chronic kidney disease, unspecified CKD stage N18.9 [facility] [address], [place] [address] 7987 Oct, Essential hypertension I10 and Chronic kidney disease, unspecified CKD stage N18.9 [facility] [id number] [address] 1309 Oct, [facility] [address], [place] [address] September, Medicare annual wellness visit, initial Z00.00 ; Mild intermittent asthma without complication J45.20 ; Generalized anxiety disorder F41.1 ; Depression, unspecified depression type F32.9 ; Paroxysmal atrial fibrillation I48.0 ; Obstructive sleep apnea G47.33 ; Hyponatremia E87.1 ; Need for hepatitis C screening test Z11.59 ; Encounter for immunization Z23 ; Secondary pulmonary arterial hypertension I27.21 and BMI 40.0-44.9, adult Z68.41 [facility] [place] [address] [address]- [address] 30 Aug, 2017 Essential hypertension I10 [facility] [address] [address] Jun, Dysuria R30.0 ; UTI symptoms R39.9 and Candidiasis of breast B37.89 [facility] [place] [address] 35271- 4189 Jun, Hyponatremia E87.1 [facility] [place] [address] 0[address]93- 4848 Jun, Hyponatremia E87.1 [place] [address] 18449- 9949 Jun, Hyponatremia E87.1 [facility] [place] [address] 01403- 4773 Jun, [facility] [place] [address] 28413- 8619 May, Hyponatremia E87.1 [facility] [place] [address] 64957- 0446 May, Hyponatremia E87.1 [place] [address] 84829- 4713 May, Hyponatremia E87.1 [facility] [place] [address] 06595- 1669 May, Hyponatremia E87.1 [facility] [place] [address] 25429- 9269 Apr, Hyponatremia E87.1 ; Fasciculations of muscle R25.3 and Hyperlipidemia E78.5 [facility] [place] [id number] [place] [address] 02563- 7777 Apr, Cough R05 ; Hyponatremia E87.1 ; Fasciculations of muscle R25.3 ; Primary insomnia F51.01 ; Essential hypertension I10 ; Hyperlipidemia E78.5 ; Screening for breast cancer Z12.31 and BMI 40.0-44.9, adult Z68.41 [facility] [place] [id number] [place] [address] 11088- 5048 Apr, Essential hypertension I10 [facility] [place] [id number] [place] [address] 26579- 8324 Mar, [facility] [place] [id number] [place] [address] 86409- 0443 Mar, [facility] [place] [id number] [place] [address] 22619- 9598 Mar, [facility] [place] [id number] [place] [address] 45751- 4561 Feb, [facility] [place] [id number] [place] [address] 80086- 1134 Jan, [facility] [place] [id number] [place] [address] 59358- 9299 Dec, Essential hypertension I10 [facility] [place] [id number] [place] [address] 58757- 9512 Dec, [facility] [place] [id number] [place] [address] 06332- 9984 Dec, Essential hypertension I10 [facility] [place] [id number] [place] [address] 55148- 1609 Nov, [facility] [place] [id number] [address]36 Oct, Essential hypertension I10 [facility] [place] [id number] [place] [address] 38853- 6979 Oct, Essential hypertension I10 [facility] [place] [address] 42186- 7121 Oct, [facility] [place] [id number] [place] [address] 75702- 2883 September, [facility] [place] [address] 68257- 6293 September, Essential hypertension I10 [facility] [place] [id number] [place] [address] 69716- 5870 September, [place] [id number] [place] [address] 40870- 0457 September, Essential hypertension I10 ; Hyperlipidemia E78.5 and Hyponatremia E87.1 [place] [address] 46830- 7195 September, Mild intermittent asthma without complication J45.20 ; Essential hypertension I10 ; Hyperlipidemia E78.5 ; Hyponatremia E87.1 and Dysuria R30.0 [place] [id number] [place] [address] 87344- 3533 September, Other chronic gastritis without hemorrhage K29.50 ; Paroxysmal atrial fibrillation I48.0 and Essential hypertension I10 [place] [id number] [place] [address] 42387- 3310 Aug, [facility] [place] [id number] [place] [address] 08325- 4158 14 Jul, 2016 [facility] [place] [id number] [place] [address] 90752- 4591 14 Jun, 2016 [facility] [id number] [place] [address] 19263 -8088 07 Jun, 2016 Dysuria R30.0 and Acute cystitis with hematuria N30.01 [facility] [place] [address] 23672- 6426 Jun, Essential hypertension I10 [facility] [place] [id number] [place] [address] 06354- 6548 May, Paroxysmal atrial fibrillation I48.0 [facility] [place] [id number] [place] [address] 26118- 7739 May, Other chronic gastritis without hemorrhage K29.50 [facility] [place] [address] 76270- 5590 May, [facility] [place] [id number] [place] [address] 51663- 5389 May, Hyponatremia E87.1 ; Essential hypertension I10 and Other chronic gastritis without hemorrhage K29.50 [facility] [place] [id number] [place] [address] 82762- 1114 May, Hyponatremia E87.1 [facility] [place] [address] 10468- 5441 May, Hyponatremia E87.1 [facility] [address] [id number] May, [facility] [place] [id number] [place] [address] 65838- 0527 Apr, [facility] [place] [id number] [place] [address] 65424- 4475 Apr, [facility] [place] [id number] [place] [address] 35260- 5034 Mar, Essential hypertension I10 and Candidal intertrigo B37.2 [facility] [place] [id number] [place] [address] 98348- 0903 Mar, Hyponatremia E87.1 [facility] [place] [id number] [place] [address] 51110- 0861 14 Mar, 2016 [facility] [place] [id number] [place] [address] 16125- 8082 Mar, Hyponatremia E87.1 [facility] [place] [id number] [place] [address] 07875- 6366 Mar, Essential hypertension I10 ; Hyponatremia E87.1 ; Slurred speech R47.81 ; Paroxysmal atrial fibrillation I48.0 and Elevated blood sugar R73.9 [facility] [place] [id number] [place] [address] 79292- 0510 Mar, [place] [address] 76687- 7195 Mar, [facility] [place] [address] 72782- 9141 Feb, [place] [address] 21533- 3385 Jan, [place] [address] 66148- 2471 Dec, [facility] [address] 87447 -8654 Nov, Scratched by cat, initial encounter W55.03XA and Other injury of unspecified body region T14.8 [place] [address] 73099- 5087 Nov, [place] [id number] [place] [address] 36354- 9044 Oct, [place] [address] 99149- 5143 September, [place] [id number] [place] [address] 75036- 3916 Aug, Elevated alkaline phosphatase level R74.8 [place] [address] 82505- 0373 Jul, [facility] [place] [id number] [place] [address] 87531- 5953 Jun, Essential hypertension I10 and Bright red blood per rectum K62.5 [place] [id number] [place] [address] 72918- 2171 11 Jun, 2015 Elevated alkaline phosphatase level R74.8 [place] [id number] [place] [address] 03715- 2726 10 Jun, 2015 [facility] [place] [address] 30146- 9194 May, Essential hypertension I10 ; Hyperlipidemia E78.5 and Well woman exam (no gynecological exam) Z00.00 [place] [id number] [place] [address] 62826- 5388 May, [place] [address] 20280- 3566 May, [place] [address] 10946- 1900 Mar, [place] [address] 17937- 3369 Mar, [place] [id number] [place] [address] 53116- 8822 Mar, [place] [id number] [place] [address] 28856- 0942 Feb, Acute recurrent maxillary sinusitis J01.01 ; Asthma, unspecified, unspecified status 493.90 ; Seasonal allergies J30.2 and Cat allergies J30.81 [place] [id number] [place] [address] 70195- 2700 Feb, Upper respiratory tract infection, unspecified upper respiratory infection J06.9 [place] [address] 93886- 5593 Jan, [place] [id number] [place] [address] 61424- 0681 02 Jan, 2015 Dysphagia 787.20 and GERD (gastroesophageal reflux disease) 530.81 [place] [address] [place] [address]- 4146 Jan, Breast lesion 611.9 [facility] [place] [id number] [place] [address] 98396- 3756 Dec, Breast lesion 611.9 [facility] [place] [address], [place] [address]- 2266 Dec, Breast lesion 611.9 [facility] [place] [id number] [place] [address] 07696- 3175 Nov, Fatigue 780.79 and Hyperlipidemia 272.4 [facility] [place] [id number] [place] [address] 43867- 1478 Nov, Hypertension 401.9 ; Hyperlipidemia 272.4 ; Chronic frontal sinusitis 473.1 and Fatigue 780.79 [facility] [place] [address], [place] [address]- 9732 Nov, [facility] [place] [address] [address]- 8039 Oct, [facility] [place] [address] 5522 Oct, [facility] [place] [address] [address]- 0386 September, [facility] [place] [address], [place] [address]- 0056 September, [facility] [place] [address], [place] [address]- 6236 September, [facility] [place] [address], [place] [address]- 5896 September, [facility] [place] [address], [place] [address]- 5096 Aug, [facility] [place] [address] [address]- 8506 Aug, [facility] [place] [address] [address]- 1211 13 Aug, 2014 [facility] [place] [facility] [address] [id number] [place] [address]- 0463 20 Jul, 2014 [facility] [place] [facility] [address] [id number] [place] [address]- 1387 20 Jul, 2014 [facility] [place] [facility] [address] [id number] [place] [address]- 6672 19 Jul, 2014 [facility] [place] [facility] [address] [id number] [place] [address]- 0238 19 Jul, 2014 [facility] [place] [facility] [address] [id number] [place] [address]- 4648 18 Jul, 2014 [facility] [place] [facility] [address] [id number] [place] [address]- 4135 17 Jul, 2014 [facility] [place] [facility] [address] [id number] [place] [address]- 1174 17 Jul, 2014 [facility] [place] [facility] [address] [id number] [place] [address]- 1420 16 Jul, 2014 [facility] [place] [facility] [address] [id number] [place] [address]- 3248 16 Jul, 2014 [facility] [place] [facility] [address] [id number] [place] [address]- 7555 12 Jul, 2014 [facility] [place] [facility] [address] [id number] [place] [address]- 3304 Jul, [facility] [place] [facility] [address] [id number] [place] [address]- 8248 09 Jul, 2014 [facility] [place] [facility] [address] [id number] [place] [address]- 6029 Jul, [facility] [place] [facility] [address] [id number] [place] [address]- 8458 04 Jul, 2014 [facility] [place] [facility] [address] [id number] [place] [address]- 6479 04 Jul, 2014 [facility] [place] [facility] [address] [id number] [place] [address]- 6883 Jun, 2014 [facility] [place] [facility] [address] [id number] [place] [address]- 3556 Jun, 2014 [facility] [place] [facility] [address] [id number] [place] [address]- 8245 Jun, 2014 [facility] [place] [facility] [address] [id number] [place] [address]- 5757 Jun, 2014 [facility] [place] [facility] [address] [id number] [place] [address]- 6986 May, [facility] [place] [facility] [address] [id number] [place] [address]- 2059 May, [facility] [place] [facility] [address] [id number] [place] [address]- 2202 May, [facility] [place] [facility] [address] [id number] [place] [address]- 0271 May, [facility] [place] [facility] [address] [id number] [place] [address]- 4039 Apr, [facility] [place] [facility] [address] [id number] [place] [address]- 6555 Apr, [facility] [place] [facility] [address] [id number] [place] [address]- 4119 Apr, [facility] [place] [facility] [address] [id number] [place] [address]- 0468 Apr, [facility] [place] [facility] [address] [id number] [place] [address]- 7201 Apr, [facility] [place] [facility] [address] [id number] [place] [address]- 4409 Apr, [facility] [place] [facility] [address] [id number] [place] [address]- 6835 Mar, [facility] [place] [facility] [address] [id number] [place] [address]- 1521 Mar, [facility] [place] [facility] [address] [id number] [place] [address]- 4438 Mar, [facility] [place] [facility] [address] [id number] [place] [address]- 9416 Mar, [facility] [place] [facility] [address] [id number] [place] [address]- 0984 Mar, [facility] [place] [facility] [address] [id number] [place] [address]- 0160 Mar, [facility] [place] [facility] [address] [id number] [place] [address]- 8428 Mar, [facility] [place] [facility] [address] [id number] [place] [address]- 0843 Mar, [facility] [place] [facility] [address] [id number] [place] [address]- 4894 Mar, [facility] [place] [facility] [address] [id number] [place] [address]- 1109 Mar, [facility] [place] [facility] [address] [id number] [place] [address]- 9146 Mar, [facility] [place] [facility] [address] [id number] [place] [address]- 4151 Mar, [facility] [place] [facility] [address] [id number] [address]- 4275 Mar, [facility] [place] [facility] [address] [id number] [address]- 8260 Mar, [facility] [place] [facility] [address] [id number] [place] [address] Mar, [facility] [place] [facility] [address] [id number], [place] [address] Mar, [facility] [place] [facility] [address] [id number], [place] [address] Mar, [facility] [place] [facility] [address] [id number] [place] [address] 30 Feb, 2013 [facility] [place] [facility] [address] [id number] [place] [address] 30 Feb, 2013 [facility] [place] [facility] [address] [id number] [place] [address] 30 Feb, 2013 [facility] [place] [facility] [address] [id number] [place] [address] 30 Feb, 2013 [facility] [place] [facility] [address] [id number] [place] [address] 29 Feb, 2013 [facility] [place] [facility] [address] [id number] [place] [address] 29 Feb, 2013 [facility] [place] [facility] [address] [id number] [place] [address] Feb, [facility] [place] [facility] [address] [id number] [place] [address] Feb, 2013 [facility] [place] [facility] [address] [id number] [place] [address] 28 Feb, 2014 [facility] [place] [facility] [address] [id number] [place] [address] 28 Feb, 2013 [facility] [place] [facility] [address] [id number] [place] [address] 16 Feb, 2013 [facility] [place] [facility] [address] [id number] [place] [address] 16 Feb, 2013 [facility] [place] [facility] [address] [id number] [place] [address] 15 Feb, 2014 [facility] [place] [facility] [address] [id number] [place] [address] 15 Feb, 2014 [facility] [place] [facility] [address] [id number] [place] [address]- [address] 08 Feb, 2013 [facility] [place] [facility] [address] [id number] [place] [address]- 1569 08 Feb, 2014 [facility] [place] [facility] [address] [id number] [place] [address] Feb, [facility] [place] [facility] [address] [id number] [place] [address] Feb, [facility] [place] [facility] [address] [id number] [place] [address] Feb, [facility] [place] [facility] [address] [id number] [place] [address] 30 Jan, 2013 [facility] [place] [facility] [address] [id number] [place] [address]- [address] 30 Jan, 2013 [facility] [place] [facility] [address] [id number] [place] [address] 29 Jan, 2013 [facility] [place] [facility] [address] [id number] [place] [address] 29 Jan, 2013 [facility] [place] [facility] [address] [id number] [place] [address] 24 Jan, 2013 [facility] [place] [facility] [address] [id number] [place] [address] 24 Jan, 2013 [facility] [place] [facility] [address] [id number] [place] [address] Jan, 2013 [facility] [place] [facility] [address] [id number] [place] [address] Jan, 2013 [facility] [place] [facility] [address] [id number] [place] [address] 08 Jan, 2013 [facility] [place] [facility] [address] [id number] [place] [address] Dec, [facility] [place] [facility] [address] [id number] [place] [address] Dec, [facility] [place] [facility] [address] [id number] [place] [address] Dec, [facility] [place] [facility] [address] [id number] [place] [address] Dec, [facility] [place] [facility] [address] [id number] [place] [address] Dec, [facility] [place] [facility] [address] [id number] [place] [address] Dec, [facility] [place] [facility] [address] [id number] [place] [address] 4425 Dec, [facility] [place] [facility] [address] [id number] [place] [address] 2215 Dec, [facility] [place] [facility] [address] [id number] [place] [address] 2559 Dec, [facility] [place] [facility] [address] [id number] [place] [address] 2797 Nov, [facility] [place] [facility] [address] [id number] [place] [address] 3020 Nov, [facility] [place] [facility] [address] [id number] [place] [address]- 9247 Nov, [facility] [place] [facility] [address] [id number] [place] [address] 4268 Nov, [facility] [place] [facility] [address] [id number] [place] [address]- 4991 Nov, [facility] [place] [facility] [address] [id number] [place] [address] 9291 Nov, [facility] [place] [facility] [address] [id number] [place] [address] 3455 Oct, [facility] [place] [facility] [address] [id number] [place] [address] 4262 Oct, [facility] [place] [facility] [address] [id number] [place] [address] 8713 Oct, [facility] [place] [facility] [address] [id number] [place] [address]- 1032 Oct, [facility] [place] [facility] [address] [id number] [place] [address] 5577 Oct, [facility] [place] [facility] [address] [id number] [place] [address]- 2734 Oct, [facility] [place] [facility] [address] [id number] [place] [address]- 6071 Oct, [facility] [place] [facility] [address] [id number] [place] [address]- 4657 Oct, [facility] [place] [facility] [address] [id number] [place] [address]- 6767 Oct, [facility] [place] [facility] [address] [id number] [place] [address]- 7150 Oct, [facility] [place] [facility] [address] [id number] [place] [address]- 7207 Oct, [facility] [place] [facility] [address] [id number] [place] [address]- 6560 Oct, [facility] [place] [facility] [address] [id number] [place] [address]- 0415 Oct, [facility] [place] [facility] [address] [id number] [place] [address] 1857 Oct, [facility] [place] [facility] [address] [id number] [place] [address] 9094 September, [facility] [place] [facility] [address] [id number] [place] [address]- 8937 September, [facility] [place] [facility] [address] [id number] [place] [address]- 5631 September, [facility] [place] [facility] [address] [id number] [place] [address]- 8248 September, [facility] [place] [facility] [address] [id number] [place] [address] 2414 September, [facility] [place] [facility] [address] [id number] [place] [address]- 6560 September, [facility] [address] [id number] [place] [address]- 2872 September, [facility] [place] [facility] [address] [id number] [place] [address]- 8315 September, [facility] [place] [facility] [address] [id number] [place] [address]- 1675 September, [facility] [place] [facility] [address] [id number] [place] [address]- 8329 September, [facility] [place] [facility] [address] [id number] [place] [address]- 2205 September, [facility] [place] [facility] [address] [id number] [place] [address]- 4297 September, [facility] [place] [facility] [address] [id number] [place] [address]- 3953 September, [facility] [place] [facility] [address] [id number] [place] [address]- 6183 September, [facility] [place] [facility] [address] [id number] [place] [address]- 5408 September, [facility] [place] [facility] [address] [id number] [place] [address]- 3350 September, [facility] [place] [facility] [address] [id number] [place] [address]- 2927 September, [facility] [place] [facility] [address] [id number] [place] [address]- 0707 September, [facility] [place] [facility] [address] [id number] [place] [address]- 7054 September, [facility] [place] [facility] [address] [id number] [place] [address]- 5444 Aug, [facility] [place] [facility] [address] [id number] [place] [address]- 7725 Aug, [facility] [place] [facility] [address] [id number] [place] [address]- 3840 31 Jul, 2013 [facility] [place] [facility] [address] [id number] [place] [address]- 0904 31 Jul, 2013 [facility] [place] [facility] [address] [id number] [place] [address]- 9190 28 Jul, 2013 [facility] [place] [facility] [address] [id number] [place] [address]- 8516 28 Jul, 2013 [facility] [place] [facility] [address] [id number] [place] [address]- 8174 27 Jul, 2013 [facility] [place] [facility] [address] [id number] [place] [address]- 1749 27 Jul, 2013 [facility] [place] [facility] [address] [id number] [place] [address]- 2692 27 Jul, 2013 [facility] [place] [facility] [address] [id number] [place] [address]- 6723 Jul, [facility] [place] [facility] [address] [id number] [place] [address]- 9073 Jul, [facility] [place] [facility] [address] [id number] [place] [address]- 9404 25 Jul, 2013 [facility] [place] [facility] [address] [id number] [place] [address]- 0931 14 Jul, 2013 [facility] [place] [facility] [address] [id number] [place] [address]- 9903 14 Jul, 2013 [facility] [place] [facility] [address] [id number] [place] [address]- 8181 Jul, [facility] [place] [facility] [address] [id number] [place] [address]- 1967 07 Jul, 2013 [facility] [place] [facility] [address] [id number] [place] [address]- 9117 10 Jun, 2013 [facility] [place] [facility] [address] [id number] [place] [address]- 3451 10 Jun, 2013 [facility] [place] [facility] [address] [id number] [place] [address]- 3008 Jun, [facility] [place] [facility] [address] [id number] [place] [address]- 5042 Jun, [facility] [place] [facility] [address] [id number] [place] [address]- 3921 May, [facility] [place] [facility] [address] [id number] [place] [address]- 2564 May, [facility] [place] [facility] [address] [id number] [place] [address]- 2612 May, [facility] [place] [facility] [address] [id number] [place] [address]- 8549 May, [facility] [place] [facility] [address] [id number] [place] [address]- 6376 May, [facility] [place] [facility] [address] [id number] [place] [address]- 1686 Mar, [facility] [place] [facility] [address] [id number] [place] [address]- 6360 Mar, [facility] [place] [facility] [address] [id number] [place] [address]- 4491 Mar, [facility] [place] [facility] [address] [id number] [place] [address]- 1797 Mar, [facility] [place] [facility] [address] [id number] [address] 4060 Mar, [facility] [place] [facility] [address] [id number] [place] [address]- 9657 Mar, [facility] [place] [facility] [address] [id number] [place] [address]- 0412 Feb, [facility] [place] [facility] [address] [id number] [place] [address]- 3928 Feb, [facility] [place] [facility] [address] [id number] [address]- 6125 Feb, [facility] [place] [facility] [address] [id number] [place] [address]- 7518 Feb, [facility] [place] [facility] [address] [id number] [place] [address] Feb, [facility] [place] [facility] [address] [id number] [place] [address]- 0083 Feb, [facility] [place] [facility] [address] [id number] [place] [address]- 1009 Feb, [facility] [place] [facility] [address] [id number] [place] [address]- 0200 Feb, [facility] [place] [facility] [address] [id number] [place] [address]- 4830 Feb, [facility] [place] [facility] [address] [id number] [place] [address]- 6450 Feb, [facility] [place] [facility] [address] [id number] [place] [address]- 6022 Feb, [facility] [place] [facility] [address] [id number] [place] [address]- 1707 Feb, [facility] [place] [facility] [address] [id number] [place] [address]- 7349 Jan, [facility] [place] [facility] [address] [id number] [place] [address]- 6740 Jan, [facility] [place] [facility] [address] [id number] [place] [address]- 4259 Dec, [facility] [place] [facility] [address] [id number] [place] [address]- 9366 Dec, [facility] [place] [facility] [address] [id number] [place] [address]- 7227 Nov, [facility] [place] [facility] [address] [id number] [place] [address]- 7520 Nov, [facility] [place] [facility] [address] [id number] [place] [address]- 3371 Nov, [facility] [address] [id number] [place] [address]- 1761 Nov, [facility] [place] [facility] [address] [id number] [place] [address]- 4133 Nov, [facility] [address] [id number] [place] [address]- 2047 Oct, [facility] [place] [facility] [address] [id number] [place] [address]- 1125 September, [facility] [address] [id number] [place] [address]- 0922 Aug, [facility] [address] [id number] [place] [address]- 8676 Jul, [facility] [place] [facility] [address] [id number] [place] [address]- 6290 Jul, [facility] [address] [id number] [place] [address]- 6834 Jul, [facility] [place] [facility] [address] [id number] [place] [address]- 5377 Jun, [facility] [address] [id number] [place] [address]- 6235 14 Jun, 2012 [facility] [place] [facility] [address] [id number] [place] [address]- 8952 Jun, [facility] [place] [facility] [address] [id number] [place] [address]- 1699 Jun, [facility] [place] [facility] [address] [id number] [place] [address]- 7501 07 Jun, 2012 [facility] [place] [facility] [address] [id number] [place] [address]- 6198 May, [facility] [place] [facility] [address] [id number] [address]- 8403 May, [facility] [place] [facility] [address] [id number] [place] [address]- 3806 Apr, [facility] [place] [facility] [address] [id number] [place] [address] Apr, [facility] [place] [facility] [address] [facility] [id number] [place] [address]- 7324 Mar, [facility] [place] [facility] [address] [id number] [address]- 7909 Mar, [facility] [place] [facility] [address] [id number] [place] [address]- 8920 Mar, [facility] [place] [facility] [address] [facility] [id number] [place] [address]- 4614 Mar, [facility] [place] [facility] [address] [facility] [id number] [address]- 3437 Mar, [facility] [place] [facility] [address] [id number] [address]- 8228 Mar, [facility] [place] [facility] [address] [id number] [address]- 4897 Mar, [facility] [place] [facility] [address] [facility] [id number] [address]- 8985 Mar, [facility] [place] [facility] [address] [id number] [address]- 0290 Mar, [facility] [place] [facility] [address] [id number] [address]- 2918 Mar, [facility] [place] [facility] [address] [id number] [address]- 6527 Feb, [facility] [place] [facility] [address] [facility] [id number] [address]- 2405 Feb, [facility] [place] [facility] [address] [facility] [id number] [address]- 7463 Feb, [facility] [place] [facility] [address] [id number] [place] [address]- 8288 Feb, [facility] [address] [id number] [place] [address]- 4046 Feb, [facility] [address] [id number] [place] [address]- 2546 Feb, [facility] [address] [id number] [place] [address]- 0872 Jan, [facility] [address] [id number] [place] [address]- 8847 Jan, [facility] [address] [id number] [place] [address]- 4131 Dec, [facility] [address] [id number] [place] [address]- 1683 Dec, [facility] [address] [id number] [place] [address]- 4376 Dec, [facility] [address] [id number] [place] [address]- 3749 Nov, [facility] [address] [id number] [place] [address]- 6898 September, [facility] [address] [id number] [place] [address]- 9269 September, [facility] [address] [id number] [place] [address]- 8574 September, [facility] [address] [id number] [place] [address]- 5407 September, [facility] [place] [facility] [address] [id number] [place] [address]- 5264 Aug, [facility] [place] [facility] [address] [id number] [place] [address]- 8531 Aug, [facility] [address] [id number] [place] [address]- 6815 Aug, [facility] [address] [id number] [place] [address]- 6665 10 Aug, 2011 [facility] [place] [facility] [address] [id number] [place] [address]- 5846 05 Aug, 2011 [facility] [place] [facility] [address] [id number] [place] [address]- 1406 13 Jul, 2011 [facility] [place] [facility] [address] [id number] [place] [address]- 9756 Jul, [facility] [place] [facility] [address] [id number] [place] [address]- 3635 Jul, [facility] [place] [facility] [address] [id number] [place] [address]- 9776 29 Jun, 2011 [facility] [place] [facility] [address] [facility] [id number] [place] [address]- 4576 17 Jun, 2011 [facility] [place] [facility] [address] [id number] [place] [address]- 9858 13 Jun, 2011 [facility] [place] [facility] [address] [id number] [place] [address]- 0818 Jun, [facility] [place] [facility] [address] [id number] [place] [address]- 4806 Jun, [facility] [place] [facility] [address] [id number] [place] [address]- 8886 Jun, [facility] [place] [facility] [address] [id number] [address]- 5216 Jun, [facility] [place] [facility] [address] [id number] [place] [address]- 8996 May, [facility] [place] [facility] [address] [id number] [place] [address]- 6076 May, [facility] [place] [facility] [address] [id number] [place] [address]- 9986 May, [facility] [place] [facility] [address] [id number] [place] [address]- 3976 12 May, 2011 [facility] [address] [id number] [place] [address]- 6004 27 Apr, 2011 [facility] [address] [id number] [place] [address]- 5676 13 Apr, 2011 [facility] [address] [id number] [place] [address]- 0736 Mar, [facility] [address] [id number] [place] [address]- 2543 Mar, [facility] [address] [id number] [place] [address]- 2320 Mar, [facility] [address] [id number] [place] [address]- 1653 Nov, [facility] [address] [id number] [place] [address]- 3534 13 May, 2010 [facility] [address] [id number] [place] [address]- 0989 23 Apr, 2010 [facility] [address] [id number] [place] [address]- 7511 13 Apr, 2010 [facility] [address] [id number] [place] [address]- 3346 13 Apr, 2010 [facility] [address] [id number] [place] [address] 2546 Apr, [facility] [address] [id number] [place] [address]- 1751 Apr, [facility] [address] [id number] [place] [address]- 6793 18 Mar, 2010 [facility] [address] [id number] [place] [address]- 2546 08 Mar, 2010 [facility] [address] [id number] [place] [address]- 0354 Feb, [facility] [place] [address] [id number] [address] 2546 Aug, [facility] [place] [id number], [place] [address]- 2546 Jul, [facility] [place] [id number], [place] [address]- 2546 Jun, [facility] [place] [id number], [place] [address]- 2546 Apr, [facility] [place] [id number], [place] [address]- 2546 Apr, [facility] [place] [id number], [place] [address]- 2546 Mar, [facility] [place] [id number], [place] [address]- 2546 Mar, [facility] [place] [id number], [place] [address]- 2546 Feb, [facility] [place] [id number] [address] 2546 Dec, [facility] [place] [address] [id number], [place] [address] 2546 Oct, IMMUNIZATIONS No Known Immunizations SOCIAL HISTORY Never Assessed REASON FOR VISIT [facility] call PLAN OF CARE VITAL SIGNS MEDICATIONS [...] Hospitalization History surgery 2013 Hospitalization History A Fib--[facility] 03/08/2016 Hospitalization History acute chest pain, hypertensive urgency, paroxsysmal htn-[facility] 05/10/16
--- OUTSIDE RECORDS SUMMARY | 2018-09-17 11:40 | XMS REPORT ---
Author Author JORDY DESIREE [facility] Address [address] [place] [address] Care Team Providers Care Printed Circuit Boards Inspector Name Role Phone DESIREE SPENCE Unavailable PROBLEMS Type Condition ICD9-CM Code UID73-IV Code Onset Dates Condition Status SNOMED Code Problem Vitamin D deficiency E55.9 Active 01279899 Problem Chronic frontal sinusitis J32.1 Active 42870956 Problem Hyponatremia E87.1 Active 40269307 Problem BMI 40.0-44.9, adult Z68.41 Active 656496993 Problem Seasonal allergies J30.2 Active 119784989 Problem Secondary pulmonary arterial hypertension I27.21 Active 82273237 Problem Other chronic gastritis without hemorrhage K29.50 Active 0847378 Problem Paroxysmal atrial fibrillation I48.0 Active 563372642 Problem Fasciculations of muscle R25.3 Active 76464220 Problem Depression, unspecified depression type F32.9 Active 80245586 Problem Mild intermittent asthma without complication J45.20 Active 990114235 Problem Chronic migraine G43.709 Active 34888574 Problem Primary insomnia F51.01 Active 575410574 Problem Generalized anxiety disorder F41.1 Active 032499777 Problem Elevated alkaline phosphatase level R74.8 Active 822573839 Problem Obstructive sleep apnea G47.33 Active 29683607 Problem Hidradenitis L73.2 Active 44631690 Problem Essential hypertension I10 Active 89231321 Problem Idiopathic peripheral neuropathy G60.9 Active 39332287 Problem Hyperlipidemia E78.5 Active 34101425 ALLERGIES No Information ENCOUNTERS Encounter Location Date Diagnosis [facility] [address] [address] Jan, Essential hypertension I10 [facility] [address] [address] Jan, [facility] [address] [address] 21 Jan, 2018 Screening for cervical cancer Z12.4 ; BMI 40.0-44.9, adult Z68.41 ; Screening for breast cancer Z12.31 ; Candidal intertrigo B37.2 and Elevated glucose level R73.09 [facility] [address], [place] [address] 12 Jan, 2018 Essential hypertension I10 [facility] [id number] [place] [address] 91380- 5526 Dec, [facility] [id number] [place] [address] 20709- 4841 Dec, [facility] [id number] [place] [address] 21950- 7032 Dec, Essential hypertension I10 [facility] [id number] [address] 2660 Nov, Essential hypertension I10 [facility] [id number] [place] [address] 77939- 0192 Nov, [facility] [id number] [place] [address] 23035- 5879 Nov, Essential hypertension I10 and BMI 40.0-44.9, adult Z68.41 [facility] [address], [place] [address] 0274 Oct, Essential hypertension I10 and Chronic kidney disease, unspecified CKD stage N18.9 [facility] [address] [address] 0301 Oct, Essential hypertension I10 and Chronic kidney disease, unspecified CKD stage N18.9 [facility] [address] [address] 1051 Oct, [facility] [address] [address] 6[address] September, Medicare annual wellness visit, initial Z00.00 ; Mild intermittent asthma without complication J45.20 ; Generalized anxiety disorder F41.1 ; Depression, unspecified depression type F32.9 ; Paroxysmal atrial fibrillation I48.0 ; Obstructive sleep apnea G47.33 ; Hyponatremia E87.1 ; Need for hepatitis C screening test Z11.59 ; Encounter for immunization Z23 ; Secondary pulmonary arterial hypertension I27.21 and BMI 40.0-44.9, adult Z68.41 [facility] [address] [address]- [address] 30 Aug, 2017 Essential hypertension I10 [facility] [address] [address] Jun, Dysuria R30.0 ; UTI symptoms R39.9 and Candidiasis of breast B37.89 [facility] [address] 38687- 3884 Jun, Hyponatremia E87.1 [facility] [address] 6[address]20- 5059 Jun, Hyponatremia E87.1 [facility] [address] 41694- 8113 Jun, Hyponatremia E87.1 [facility] [address] 98644- 5214 Jun, [facility] [address] 84038- 9023 May, Hyponatremia E87.1 [facility] [address] 82803- 8075 May, Hyponatremia E87.1 [facility] [address] 53616- 2978 May, Hyponatremia E87.1 [facility] [address] 62266- 5192 May, Hyponatremia E87.1 [facility] [address] 50664- 8148 Apr, Hyponatremia E87.1 ; Fasciculations of muscle R25.3 and Hyperlipidemia E78.5 [facility] [id number] [place] [address] 36405- 2410 Apr, Cough R05 ; Hyponatremia E87.1 ; Fasciculations of muscle R25.3 ; Primary insomnia F51.01 ; Essential hypertension I10 ; Hyperlipidemia E78.5 ; Screening for breast cancer Z12.31 and BMI 40.0-44.9, adult Z68.41 [facility] [id number] [place] [address] 56992- 9388 Apr, Essential hypertension I10 [facility] [id number] [place] [address] 48096- 8126 Mar, [facility] [id number] [place] [address] 02195- 5551 Mar, [facility] [id number] [place] [address] 46914- 4632 Mar, [facility] [id number] [place] [address] 32430- 0346 Feb, [facility] [id number] [place] [address] 97694- 2729 Jan, [facility] [id number] [place] [address] 22831- 0708 Dec, Essential hypertension I10 [facility] [id number] [place] [address] 21447- 8385 Dec, [facility] [id number] [place] [address] 91875- 6214 Dec, Essential hypertension I10 [facility] [id number] [place] [address] 75572- 6018 Nov, [facility] [id number] [address]36 Oct, Essential hypertension I10 [facility] [id number] [place] [address] 01699- 9036 Oct, Essential hypertension I10 [facility] [address] 86558- 1204 Oct, [facility] [id number] [place] [address] 23171- 3993 September, [facility] [address] 71096- 1706 September, Essential hypertension I10 [facility] [id number] [place] [address] 41068- 2213 September, [facility] [id number] [place] [address] 34586- 0383 September, Essential hypertension I10 ; Hyperlipidemia E78.5 and Hyponatremia E87.1 [facility] [address] 71353- 1001 September, Mild intermittent asthma without complication J45.20 ; Essential hypertension I10 ; Hyperlipidemia E78.5 ; Hyponatremia E87.1 and Dysuria R30.0 [facility] [id number] [place] [address] 57468- 7189 September, Other chronic gastritis without hemorrhage K29.50 ; Paroxysmal atrial fibrillation I48.0 and Essential hypertension I10 [facility] [id number] [place] [address] 62062- 7830 Aug, [facility] [id number] [place] [address] 69414- 9668 14 Jul, 2016 [facility] [id number] [place] [address] 65629- 8053 14 Jun, 2016 [facility] [id number] [place] [address] 06685 -8640 07 Jun, 2016 Dysuria R30.0 and Acute cystitis with hematuria N30.01 [facility] [address] 84029- 1907 Jun, Essential hypertension I10 [facility] [id number] [place] [address] 28956- 5982 May, Paroxysmal atrial fibrillation I48.0 [facility] [id number] [place] [address] 48861- 2269 May, Other chronic gastritis without hemorrhage K29.50 [facility] [address] 41286- 5514 May, [facility] [id number] [place] [address] 08879- 6598 May, Hyponatremia E87.1 ; Essential hypertension I10 and Other chronic gastritis without hemorrhage K29.50 [facility] [id number] [place] [address] 96805- 8189 May, Hyponatremia E87.1 [facility] [address] 07248- 8331 May, Hyponatremia E87.1 [facility] [address] [id number] May, [facility] [id number] [place] [address] 13488- 3938 Apr, [facility] [id number] [place] [address] 16609- 6737 Apr, [facility] [id number] [place] [address] 77547- 0810 Mar, Essential hypertension I10 and Candidal intertrigo B37.2 [facility] [id number] [place] [address] 72900- 1254 Mar, Hyponatremia E87.1 [facility] [id number] [place] [address] 57545- 5066 14 Mar, 2016 [facility] [id number] [place] [address] 21884- 2496 Mar, Hyponatremia E87.1 [facility] [id number] [place] [address] 59836- 9360 Mar, Essential hypertension I10 ; Hyponatremia E87.1 ; Slurred speech R47.81 ; Paroxysmal atrial fibrillation I48.0 and Elevated blood sugar R73.9 [facility] [id number] [place] [address] 67087- 2272 Mar, [facility] [address] 28702- 2792 Mar, [facility] [address] 36120- 1982 Feb, [facility] [address] 23611- 1150 Jan, [facility] [address] 86687- 8663 Dec, [facility] [address] 55025 -2158 Nov, Scratched by cat, initial encounter W55.03XA and Other injury of unspecified body region T14.8 [facility] [address] 23669- 8930 Nov, [facility] [id number] [place] [address] 21055- 6666 Oct, [facility] [address] 48077- 9088 September, [facility] [id number] [place] [address] 50366- 6460 Aug, Elevated alkaline phosphatase level R74.8 [facility] [address] 16488- 0510 Jul, [facility] [id number] [place] [address] 15280- 8429 Jun, Essential hypertension I10 and Bright red blood per rectum K62.5 [facility] [id number] [place] [address] 53143- 4469 11 Jun, 2015 Elevated alkaline phosphatase level R74.8 [facility] [id number] [place] [address] 81295- 3288 10 Jun, 2015 [facility] [address] 34203- 8386 May, Essential hypertension I10 ; Hyperlipidemia E78.5 and Well woman exam (no gynecological exam) Z00.00 [facility] [id number] [place] [address] 41298- 3373 May, [facility] [address] 89370- 7559 May, [facility] [address] 33599- 4112 Mar, [facility] [address] 94784- 2577 Mar, [facility] [id number] [place] [address] 18404- 4343 Mar, [facility] [id number] [place] [address] 13337- 6299 Feb, Acute recurrent maxillary sinusitis J01.01 ; Asthma, unspecified, unspecified status 493.90 ; Seasonal allergies J30.2 and Cat allergies J30.81 [facility] [id number] [place] [address] 61067- 6705 Feb, Upper respiratory tract infection, unspecified upper respiratory infection J06.9 [facility] [address] 97451- 3534 Jan, [facility] [id number] [place] [address] 17019- 1354 02 Jan, 2015 Dysphagia 787.20 and GERD (gastroesophageal reflux disease) 530.81 [facility] [address] [place] [address]- 1736 Jan, Breast lesion 611.9 [facility] [address] [place] [address] 75066- 3816 Dec, Breast lesion 611.9 [facility] [address] [address]- 5186 Dec, Breast lesion 611.9 [facility] [address] [place] [address] 34918- 5980 Nov, Fatigue 780.79 and Hyperlipidemia 272.4 [facility] [address] [place] [address] 73123- 2527 Nov, Hypertension 401.9 ; Hyperlipidemia 272.4 ; Chronic frontal sinusitis 473.1 and Fatigue 780.79 [facility] [address], [place] [address]- 8490 Nov, [facility] [address] [address]- 6905 Oct, [facility] [address]- 3229 Oct, [facility] [address] [address]- 3716 September, [facility] [address] [address]- 8086 September, [facility] [address] [address]- 3236 September, [facility] [address], [place] [address]- 4906 September, [facility] [address] [address]- 9956 Aug, [facility] [address], [place] [address]- 0806 Aug, [facility] [address] [address]- 3858 13 Aug, 2014 [facility] [place] [facility] [address] [id number] [place] [address]- 4587 20 Jul, 2014 [facility] [place] [facility] [address] [id number] [place] [address]- 8050 20 Jul, 2014 [facility] [place] [facility] [address] [id number] [place] [address]- 9438 19 Jul, 2014 [facility] [place] [facility] [address] [id number] [place] [address]- 1469 19 Jul, 2014 [facility] [place] [facility] [address] [id number] [place] [address]- 2919 18 Jul, 2014 [facility] [place] [facility] [address] [id number] [place] [address]- 6544 17 Jul, 2014 [facility] [place] [facility] [address] [id number] [place] [address]- 8369 17 Jul, 2014 [facility] [place] [facility] [address] [id number] [place] [address]- 4234 16 Jul, 2014 [facility] [place] [facility] [address] [id number] [place] [address]- 4784 16 Jul, 2014 [facility] [place] [facility] [address] [id number] [place] [address]- 3513 12 Jul, 2014 [facility] [place] [facility] [address] [id number] [place] [address]- 8241 Jul, [facility] [place] [facility] [address] [id number] [place] [address]- 9086 09 Jul, 2014 [facility] [place] [facility] [address] [id number] [place] [address]- 8561 Jul, [facility] [place] [facility] [address] [id number] [place] [address]- 3511 04 Jul, 2014 [facility] [place] [facility] [address] [id number] [place] [address]- 6283 04 Jul, 2014 [facility] [place] [facility] [address] [id number] [place] [address]- 5421 Jun, 2014 [facility] [place] [facility] [address] [id number] [place] [address]- 2339 Jun, 2014 [facility] [place] [facility] [address] [id number] [place] [address]- 7705 Jun, 2014 [facility] [place] [facility] [address] [id number] [place] [address]- 8719 Jun, 2014 [facility] [place] [facility] [address] [id number] [place] [address]- 8815 May, [facility] [place] [facility] [address] [id number] [place] [address]- 5842 May, [facility] [place] [facility] [address] [id number] [place] [address]- 9248 May, [facility] [place] [facility] [address] [id number] [place] [address]- 5533 May, [facility] [place] [facility] [address] [id number] [place] [address]- 8841 Apr, [facility] [place] [facility] [address] [id number] [place] [address]- 8824 Apr, [facility] [place] [facility] [address] [id number] [place] [address]- 8099 Apr, [facility] [place] [facility] [address] [id number] [place] [address]- 6364 Apr, [facility] [place] [facility] [address] [id number] [place] [address]- 3677 Apr, [facility] [place] [facility] [address] [id number] [place] [address]- 1366 Apr, [facility] [place] [facility] [address] [id number] [place] [address]- 8100 Mar, [facility] [place] [facility] [address] [id number] [place] [address]- 7503 Mar, [facility] [place] [facility] [address] [id number] [place] [address]- 6050 Mar, [facility] [place] [facility] [address] [id number] [place] [address]- 7069 Mar, [facility] [place] [facility] [address] [id number] [place] [address]- 8721 Mar, [facility] [place] [facility] [address] [id number] [place] [address]- 9072 Mar, [facility] [place] [facility] [address] [id number] [place] [address]- 8585 Mar, [facility] [place] [facility] [address] [id number] [place] [address]- 1733 Mar, [facility] [place] [facility] [address] [id number] [place] [address]- 2897 Mar, [facility] [place] [facility] [address] [id number] [place] [address]- 2454 Mar, [facility] [place] [facility] [address] [id number] [place] [address]- 7136 Mar, [facility] [place] [facility] [address] [id number] [place] [address]- 0032 Mar, [facility] [place] [facility] [address] [id number], [place] [address]- 5152 Mar, [facility] [place] [facility] [address] [id number] [address]- 0046 Mar, [facility] [place] [facility] [address] [id number] [place] [address]- 6194 Mar, [facility] [place] [facility] [address] [id number], [place] [address]- 2274 Mar, [facility] [place] [facility] [address] [id number], [place] [address]- 3378 Mar, [facility] [place] [facility] [address] [id number] [place] [address]- 8491 30 Feb, 2013 [facility] [place] [facility] [address] [id number] [place] [address]- 1805 30 Feb, 2013 [facility] [place] [facility] [address] [id number] [place] [address]- 2682 30 Feb, 2013 [facility] [place] [facility] [address] [id number] [place] [address]- 2293 30 Feb, 2013 [facility] [place] [facility] [address] [id number] [place] [address]- 1381 29 Feb, 2013 [facility] [place] [facility] [address] [id number] [place] [address]- 9758 29 Feb, 2013 [facility] [place] [facility] [address] [id number] [place] [address]- 9287 Feb, [facility] [place] [facility] [address] [id number] [place] [address]- 7874 Feb, 2013 [facility] [place] [facility] [address] [id number] [place] [address]- 7192 28 Feb, 2014 [facility] [place] [facility] [address] [id number] [place] [address]- 5416 28 Feb, 2013 [facility] [place] [facility] [address] [id number] [place] [address]- 2525 16 Feb, 2013 [facility] [place] [facility] [address] [id number] [place] [address]- 9435 16 Feb, 2013 [facility] [place] [facility] [address] [id number] [place] [address]- 6558 15 Feb, 2014 [facility] [place] [facility] [address] [id number] [place] [address]- 5246 15 Feb, 2014 [facility] [place] [facility] [address] [id number] [place] [address]- 0459 08 Feb, 2013 [facility] [place] [facility] [address] [id number] [place] [address]- 0227 08 Feb, 2014 [facility] [place] [facility] [address] [id number] [place] [address]- 4094 Feb, [facility] [place] [facility] [address] [id number] [place] [address]- 4074 Feb, [facility] [place] [facility] [address] [id number] [place] [address]- 8325 Feb, [facility] [place] [facility] [address] [id number] [place] [address] 30 Jan, 2013 [facility] [place] [facility] [address] [id number] [place] [address] 30 Jan, 2013 [facility] [place] [facility] [address] [id number] [place] [address] 29 Jan, 2013 [facility] [place] [facility] [address] [id number] [place] [address] 29 Jan, 2013 [facility] [place] [facility] [address] [id number] [place] [address] 24 Jan, 2013 [facility] [place] [facility] [address] [id number] [place] [address] 24 Jan, 2013 [facility] [place] [facility] [address] [id number] [place] [address] Jan, 2013 [facility] [place] [facility] [address] [id number] [place] [address] Jan, 2013 [facility] [place] [facility] [address] [id number] [place] [address] 08 Jan, 2013 [facility] [place] [facility] [address] [id number] [place] [address] Dec, [facility] [place] [facility] [address] [id number] [place] [address] Dec, [facility] [place] [facility] [address] [id number] [place] [address] Dec, [facility] [place] [facility] [address] [id number] [place] [address] Dec, [facility] [place] [facility] [address] [id number] [place] [address] Dec, [facility] [place] [facility] [address] [id number] [place] [address] Dec, [facility] [place] [facility] [address] [id number] [place] [address] Dec, [facility] [place] [facility] [address] [id number] [place] [address] Dec, [facility] [place] [facility] [address] [id number] [place] [address] Dec, [facility] [place] [facility] [address] [id number] [place] [address] Nov, [facility] [place] [facility] [address] [id number] [place] [address] Nov, [facility] [place] [facility] [address] [id number] [place] [address] Nov, [facility] [place] [facility] [address] [id number] [place] [address] Nov, [facility] [place] [facility] [address] [id number] [place] [address] Nov, [facility] [place] [facility] [address] [id number] [place] [address] 2008 Nov, [facility] [place] [facility] [address] [id number] [place] [address] Oct, [facility] [place] [facility] [address] [id number] [place] [address] Oct, [facility] [place] [facility] [address] [id number] [place] [address] Oct, [facility] [place] [facility] [address] [id number] [place] [address] Oct, [facility] [place] [facility] [address] [id number] [place] [address] Oct, [facility] [place] [facility] [address] [id number] [place] [address] Oct, [facility] [place] [facility] [address] [id number] [address] Oct, [facility] [place] [facility] [address] [id number] [place] [address] Oct, [facility] [place] [facility] [address] [id number] [place] [address] Oct, [facility] [place] [facility] [address] [id number] [place] [address] Oct, [facility] [facility] [address] [id number] [place] [address] Oct, [facility] [place] [facility] [address] [id number] [place] [address] Oct, [facility] [place] [facility] [address] [id number] [place] [address] Oct, [facility] [place] [facility] [address] [id number] [place] [address] Oct, [facility] [address] [id number] [place] [address] September, [facility] [place] [facility] [address] [id number] [place] [address] September, [facility] [place] [facility] [address] [id number] [place] [address] 9848 September, [facility] [place] [facility] [address] [id number] [place] [address] September, [facility] [address] [id number] [place] [address] 8733 September, [facility] [place] [facility] [address] [id number] [place] [address] September, [facility] [address] [id number] [place] [address] September, [facility] [place] [facility] [address] [id number] [place] [address] 1107 September, [facility] [place] [facility] [address] [id number] [place] [address]- 8780 September, [facility] [place] [facility] [address] [id number] [place] [address]- 5155 September, [facility] [place] [facility] [address] [id number] [place] [address]- 5133 September, [facility] [place] [facility] [address] [id number] [place] [address]- 7785 September, [facility] [address] [id number] [place] [address]- 4186 September, [facility] [facility] [address] [id number] [place] [address] 4879 September, [facility] [address] [id number] [place] [address]- 4976 September, [facility] [place] [facility] [address] [id number] [place] [address]- 6734 September, [facility] [address] [id number] [place] [address] 4583 September, [facility] [place] [facility] [address] [id number] [place] [address]- 0985 September, [facility] [place] [address] [id number] [place] [address]- 0205 September, [facility] [place] [address] [id number] [place] [address]- 4555 Aug, [facility] [place] [facility] [address] [id number] [place] [address]- 5062 Aug, [facility] [place] [facility] [address] [id number] [place] [address]- 9024 31 Jul, 2013 [facility] [address] [id number] [place] [address]- 7055 31 Jul, 2013 [facility] [place] [facility] [address] [id number] [place] [address]- 3239 28 Jul, 2013 [facility] [place] [address] [id number] [place] [address]- 2318 28 Jul, 2013 [facility] [address] [id number] [place] [address]- 6561 27 Jul, 2013 [facility] [place] [facility] [address] [id number] [place] [address]- 8464 27 Jul, 2013 [facility] [place] [facility] [address] [id number] [place] [address]- 6[address] 27 Jul, 2013 [facility] [address] [id number] [place] [address]- 5516 Jul, [facility] [address] [id number] [place] [address]- 2931 Jul, [facility] [address] [id number] [place] [address]- 1394 25 Jul, 2013 [facility] [address] [id number] [place] [address]- 6873 14 Jul, 2013 [facility] [place] [facility] [address] [id number] [place] [address]- 2781 14 Jul, 2013 [facility] [place] [address] [id number] [place] [address]- 0824 Jul, [facility] [place] [address] [id number] [place] [address]- 8490 07 Jul, 2013 [facility] [place] [facility] [address] [id number] [place] [address]- 7348 10 Jun, 2013 [facility] [place] [facility] [address] [id number] [place] [address]- 8960 10 Jun, 2013 [facility] [address] [id number] [place] [address]- 4535 Jun, [facility] [address] [id number] [place] [address]- 9049 Jun, [facility] [address] [id number] [place] [address]- 7449 May, [facility] [address] [id number] [place] [address]- 7844 May, [facility] [address] [id number] [place] [address] 1914 May, [facility] [address] [id number] [place] [address]- 9506 May, [facility] [address] [id number] [place] [address]- 1110 May, [facility] [address] [id number] [place] [address]- 8746 Mar, [facility] [address] [id number] [place] [address]- 3343 Mar, [facility] [address] [id number] [place] [address]- 3284 Mar, [facility] [address] [id number] [place] [address]- 5695 Mar, [facility] [address] [id number][place] [address] 9446 Mar, [facility] [address] [id number] [place] [address]- 5113 Mar, [facility] [address] [id number] [place] [address]- 6278 Feb, [facility] [address] [id number] [place] [address]- 6984 Feb, [facility] [address] [id number], [place] [address] 34[address] Feb, [facility] [address] [id number] [place] [address]- 3560 Feb, [facility] [address] [id number] [place] [address] Feb, [facility] [address] [id number] [place] [address]- 6497 Feb, [facility] [address] [id number] [place] [address]- 9376 Feb, [facility] [address] [id number] [place] [address]- 3854 Feb, [facility] [address] [id number] [place] [address]- 9697 Feb, [facility] [address] [id number] [place] [address]- 7028 Feb, [facility] [address] [id number] [place] [address]- 4914 Feb, [facility] [address] [id number] [place] [address]- 2316 Feb, [facility] [address] [id number] [place] [address]- 6816 Jan, [facility] [address] [id number] [place] [address]- 5694 Jan, [facility] [address] [id number] [place] [address]- 4292 Dec, [facility] [address] [id number] [place] [address]- 6003 Dec, [facility] [address] [id number] [place] [address]- 6254 Nov, [facility] [address] [id number] [place] [address]- 6490 Nov, [facility] [address] [id number] [place] [address]- 6316 Nov, [facility] [address] [id number] [place] [address]- 4159 Nov, [facility] [address] [id number] [place] [address]- 8636 Nov, [facility] [address] [id number] [place] [address]- 9118 Oct, [facility] [address] [id number] [place] [address]- 6775 September, [facility] [address] [id number] [place] [address]- 0606 Aug, [facility] [address] [id number] [place] [address]- 8988 Jul, [facility] [address] [id number] [place] [address]- 8931 Jul, [facility] [address] [id number] [place] [address]- 8852 Jul, [facility] [address] [id number] [place] [address]- 6678 Jun, [facility] [address] [id number] [place] [address]- 0883 14 Jun, 2012 [facility] [address] [id number] [place] [address]- 1896 Jun, [facility] [address] [id number] [place] [address]- 2773 Jun, [facility] [address] [id number] [place] [address]- 7079 07 Jun, 2012 [facility] [address] [id number] [place] [address]- 9022 May, [facility] [address] [id number], [place] [address]- 9858 May, [facility] [address] [id number] [place] [address]- 4408 Apr, [facility] [address] [id number] [place] [address] Apr, [facility] [address] [facility] [id number] [place] [address]- 7821 Mar, [facility] [address] [id number], [place] [address]- 8179 Mar, [facility] [address] [id number] [place] [address]- 0295 Mar, [facility] [address] [facility] [id number] [place] [address]- 1674 Mar, [facility] [address] [facility] [id number], [place] [address]- 9505 Mar, [facility] [address] [id number], [place] [address]- 9009 Mar, [facility] [address] [id number], [place] [address]- 0438 Mar, [facility] [address] [facility] [id number], [place] [address]- 6500 Mar, [facility] [address] [id number], [place] [address]- 6167 Mar, [facility] [address] [id number], [place] [address]- 0863 Mar, [facility] [address] [id number], [place] [address]- 9881 Feb, [facility] [address] [facility] [id number], [place] [address]- 0675 Feb, [facility] [address] [facility] [id number], [place] [address]- 9184 Feb, [facility] [address] [id number] [place] [address]- 3651 Feb, [facility] [address] [id number] [place] [address]- 9908 Feb, [facility] [address] [id number] [place] [address]- 2546 Feb, [facility] [address] [id number] [place] [address]- 4421 Jan, [facility] [address] [id number] [place] [address]- 9471 Jan, [facility] [address] [id number] [place] [address]- 8092 Dec, [facility] [address] [id number] [place] [address]- 4940 Dec, [facility] [address] [id number] [place] [address]- 6833 Dec, [facility] [address] [id number] [place] [address]- 8714 Nov, [facility] [address] [id number] [place] [address]- 3858 September, [facility] [address] [id number] [place] [address]- 6477 September, [facility] [address] [id number] [place] [address]- 6197 September, [facility] [address] [id number] [place] [address]- 6761 September, [facility] [address] [id number] [place] [address]- 2211 Aug, [facility] [address] [id number] [place] [address]- 5934 Aug, [facility] [address] [id number] [place] [address]- 4083 Aug, [facility] [address] [id number] [place] [address]- 1146 10 Aug, 2011 [facility] [address] [id number] [place] [address]- 1686 05 Aug, 2011 [facility] [address] [id number] [place] [address]- 5536 13 Jul, 2011 [facility] [address] [id number] [place] [address]- 1746 Jul, [facility] [address] [id number] [place] [address]- 3540 Jul, [facility] [address] [id number] [place] [address]- 7996 29 Jun, 2011 [facility] [address] [facility] [id number] [place] [address]- 6996 17 Jun, 2011 [facility] [address] [id number] [place] [address]- 2543 13 Jun, 2011 [facility] [address] [id number] [place] [address]- 6274 Jun, [facility] [address] [id number] [place] [address]- 6266 Jun, [facility] [address] [id number] [place] [address]- 6556 Jun, [facility] [address] [id number], [place] [address]- 4146 Jun, [facility] [address] [id number] [place] [address]- 5276 May, [facility] [address] [id number] [place] [address]- 3646 May, [facility] [facility] [address] [id number] [place] [address]- 4666 May, [facility] [address] [id number] [place] [address]- 8454 12 May, 2011 [facility] [address] [id number] [place] [address]- 7157 27 Apr, 2011 [facility] [address] [id number] [place] [address]- 9786 13 Apr, 2011 [facility] [address] [id number] [place] [address]- 1586 Mar, [facility] [address] [id number] [place] [address]- 2541 Mar, [facility] [address] [id number] [place] [address]- 0673 Mar, [facility] [address] [id number] [place] [address]- 3257 Nov, [facility] [address] [id number] [place] [address]- 9316 13 May, 2010 [facility] [address] [id number] [place] [address]- 5207 23 Apr, 2010 [facility] [address] [id number] [place] [address]- 0705 13 Apr, 2010 [facility] [address] [id number] [place] [address]- 1563 13 Apr, 2010 [facility] [address] [id number] [place] [address] 2546 Apr, [facility] [address] [id number] [place] [address]- 3396 Apr, [facility] [address] [id number] [place] [address]- 2789 18 Mar, 2010 [facility] [address] [id number] [place] [address]- 2546 08 Mar, 2010 [facility] [address] [id number] [place] [address]- 8978 Feb, [facility] [address] [id number] [address] 2546 Aug, [facility] [id number], [place] [address]- 2546 Jul, [facility] [id number], [place] [address]- 2546 Jun, [facility] [id number], [place] [address]- 2546 Apr, [facility] [id number], [place] [address]- 2546 Apr, [facility] [id number], [place] [address]- 2546 Mar, [facility] [id number], [place] [address]- 2546 Mar, [facility] [id number], [place] [address]- 2546 Feb, [facility] [address] [id number], [place] [address]- 2546 Dec, [facility] [address] [id number], [place] [address]- 2546 Oct, IMMUNIZATIONS No Known Immunizations SOCIAL HISTORY Never Assessed REASON FOR VISIT Med refills PLAN OF CARE VITAL SIGNS MEDICATIONS Medication Instructions Dosage Frequency Start Date End Date Duration Status Lisinopril 40 mg Orally Once a day 1 tablet 24h 90 days Active RESULTS No Results [...] Hospitalization History surgery 2013 Hospitalization History A Fib--[facility] 03/08/2016 Hospitalization History acute chest pain, hypertensive urgency, paroxsysmal htn-[facility] 05/10/16
--- OUTSIDE RECORDS SUMMARY | 2018-09-17 11:41 | XMS REPORT ---
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 Name Role Phone AGUSTINA MA Unavailable PROBLEMS Type Condition ICD9-CM Code USJ38-JD Code Onset Dates Condition Status SNOMED Code Problem Vitamin D deficiency E55.9 Active 40921773 Problem Chronic frontal sinusitis J32.1 Active 00676213 Problem Hyponatremia E87.1 Active 83418451 Problem BMI 40.0-44.9, adult Z68.41 Active 103158536 Problem Seasonal allergies J30.2 Active 782025125 Problem Secondary pulmonary arterial hypertension I27.21 Active 63180084 Problem Other chronic gastritis without hemorrhage K29.50 Active 8087199 Problem Paroxysmal atrial fibrillation I48.0 Active 056326272 Problem Fasciculations of muscle R25.3 Active 66945297 Problem Depression, unspecified depression type F32.9 Active 17795392 Problem Mild intermittent asthma without complication J45.20 Active 357079998 Problem Chronic migraine G43.709 Active 76108530 Problem Primary insomnia F51.01 Active 666284510 Problem Generalized anxiety disorder F41.1 Active 642429053 Problem Elevated alkaline phosphatase level R74.8 Active 406596935 Problem Obstructive sleep apnea G47.33 Active 23390054 Problem Hidradenitis L73.2 Active 12528312 Problem Essential hypertension I10 Active 31977751 Problem Idiopathic peripheral neuropathy G60.9 Active 63953189 Problem Hyperlipidemia E78.5 Active 67210035 ALLERGIES Substance Reaction Event Type Date Status Amitriptyline HCl Unknown Drug Allergy Jan, Active ENCOUNTERS Encounter Location Date Diagnosis [facility] [address] [facility] [id number] [address] Jan, Essential hypertension I10 [facility] [address] [facility] [id number], [place] [address] Jan, [facility] [address], [place] [address] 21 Jan, 2018 Screening for cervical cancer Z12.4 ; BMI 40.0-44.9, adult Z68.41 ; Screening for breast cancer Z12.31 ; Candidal intertrigo B37.2 and Elevated glucose level R73.09 [place] [address], [place] [address] Jan, Essential hypertension I10 [facility] [address] [id number] [address] Dec, [place] [place] [id number] [place] [address] 39778- 0072 Dec, [facility] [place] [id number], [place] [address] 7047 Dec, Essential hypertension I10 [place] [place] [address] [id number], [place] [address]- 6552 Nov, Essential hypertension I10 [place] [address], [place] [address] Nov, [place] [address], [place] [address] 8[address] Nov, Essential hypertension I10 and BMI 40.0-44.9, adult Z68.41 [place] [address], [place] [address] Oct, Essential hypertension I10 and Chronic kidney disease, unspecified CKD stage N18.9 [place] [address] [id number] [address] 9[address] Oct, Essential hypertension I10 and Chronic kidney disease, unspecified CKD stage N18.9 [place] [address], [place] [address] Oct, [place] [address], [place] [address] September, Medicare annual wellness visit, initial Z00.00 ; Mild intermittent asthma without complication J45.20 ; Generalized anxiety disorder F41.1 ; Depression, unspecified depression type F32.9 ; Paroxysmal atrial fibrillation I48.0 ; Obstructive sleep apnea G47.33 ; Hyponatremia E87.1 ; Need for hepatitis C screening test Z11.59 ; Encounter for immunization Z23 ; Secondary pulmonary arterial hypertension I27.21 and BMI 40.0-44.9, adult Z68.41 [facility] [address] [address]- [address] 30 Aug, 2017 Essential hypertension I10 [facility] [address] [address] Jun, Dysuria R30.0 ; UTI symptoms R39.9 and Candidiasis of breast B37.89 [facility] [address] [address]- 9725 Jun, Hyponatremia E87.1 [facility] [address] 55195- 5893 Jun, Hyponatremia E87.1 [place] [address] 30525- 4673 Jun, Hyponatremia E87.1 [facility] [address] 59213- 4492 Jun, [facility] [address] 17887- 0479 May, Hyponatremia E87.1 [facility] [address] 64317- 8998 May, Hyponatremia E87.1 [place] [address] 14014- 3416 May, Hyponatremia E87.1 [facility] [address] 35651- 6095 May, Hyponatremia E87.1 [place] [address] [id number], [place] [address] 8894 Apr, Hyponatremia E87.1 ; Fasciculations of muscle R25.3 and Hyperlipidemia E78.5 [facility] [id number] [place] [address] 09203- 3912 Apr, Cough R05 ; Hyponatremia E87.1 ; Fasciculations of muscle R25.3 ; Primary insomnia F51.01 ; Essential hypertension I10 ; Hyperlipidemia E78.5 ; Screening for breast cancer Z12.31 and BMI 40.0-44.9, adult Z68.41 [facility] [id number] [place] [address] 47837- 1514 Apr, Essential hypertension I10 [facility] [id number] [place] [address] 71417- 8082 Mar, [facility] [id number] [place] [address] 01897- 4721 Mar, [facility] [id number] [place] [address] 54148- 8052 Mar, [facility] [id number] [place] [address] 13409- 8991 Feb, [facility] [id number] [place] [address] 65639- 3185 Jan, [facility] [id number] [place] [address] 40960- 5784 Dec, Essential hypertension I10 [facility] [id number] [place] [address] 71311- 1963 Dec, [facility] [id number] [place] [address] 99152- 0910 Dec, Essential hypertension I10 [facility] [id number] [place] [address] 28059- 8209 Nov, [facility] [id number] [place] [address] 47674- 9068 Oct, Essential hypertension I10 [facility] [id number] [place] [address] 97909- 0696 Oct, Essential hypertension I10 [facility] [id number] [place] [address] 97322- 8098 Oct, [facility] [id number] [place] [address] 55384- 5793 September, [facility] [id number] [place] [address] 03407- 7443 September, Essential hypertension I10 [facility] [id number] [place] [address] 78577- 4846 September, [facility] [id number] [place] [address] 19667- 1024 September, Essential hypertension I10 ; Hyperlipidemia E78.5 and Hyponatremia E87.1 [facility] [id number] [place] [address] 69578- 3798 September, Mild intermittent asthma without complication J45.20 ; Essential hypertension I10 ; Hyperlipidemia E78.5 ; Hyponatremia E87.1 and Dysuria R30.0 [facility] [id number] [place] [address] 25616- 5880 September, Other chronic gastritis without hemorrhage K29.50 ; Paroxysmal atrial fibrillation I48.0 and Essential hypertension I10 [facility] [id number] [place] [address] 86069- 4218 Aug, [facility] [id number] [place] [address] 95391- 7659 14 Jul, 2016 [facility] [id number] [place] [address] 82329- 8647 14 Jun, 2016 [facility] [id number] [place] [address] 21840 -7199 07 Jun, 2016 Dysuria R30.0 and Acute cystitis with hematuria N30.01 [facility] [id number] [place] [address] 15045- 8427 Jun, Essential hypertension I10 [facility] [address] 04158- 0352 May, Paroxysmal atrial fibrillation I48.0 [facility] [id number] [place] [address] 84298- 0745 May, Other chronic gastritis without hemorrhage K29.50 [facility] [id number] [place] [address] 50011- 9889 May, [facility] [address] 90197- 3785 May, Hyponatremia E87.1 ; Essential hypertension I10 and Other chronic gastritis without hemorrhage K29.50 [facility] [id number] [place] [address] 81161- 3190 May, Hyponatremia E87.1 [facility] [address] 29899- 4179 May, Hyponatremia E87.1 [facility] [address] [id number] May, [facility] [id number] [place] [address] 38682- 5210 16 Apr, 2016 [facility] [id number] [place] [address] 03659- 3648 Apr, [facility] [id number] [place] [address] 82271- 6253 29 Mar, 2016 Essential hypertension I10 and Candidal intertrigo B37.2 [facility] [id number] [place] [address] 11790- 2334 Mar, Hyponatremia E87.1 [facility] [id number] [place] [address] 92289- 2823 14 Mar, 2016 [facility] [address] [place] [address]- 2469 10 Mar, 2016 Hyponatremia E87.1 [facility] [address] 56653- 9463 Mar, Essential hypertension I10 ; Hyponatremia E87.1 ; Slurred speech R47.81 ; Paroxysmal atrial fibrillation I48.0 and Elevated blood sugar R73.9 [facility] [address] 39567- 9385 Mar, [facility] [address] 40113- 2964 Mar, [facility] [address] 28443- 7128 Feb, [facility] [address] 06771- 4999 Jan, [facility] [address] 44018- 6803 Dec, [facility] [address] 28[address] -[address] Nov, Scratched by cat, initial encounter W55.03XA and Other injury of unspecified body region T14.8 [facility] [id number] [place] [address] 08354- 3481 Nov, [facility] [id number] [place] [address] 15487- 7853 Oct, [facility] [id number] [place] [address] 27535- 1693 September, [facility] [address] 09218- 7793 Aug, Elevated alkaline phosphatase level R74.8 [facility] [id number] [place] [address] 19231- 7305 Jul, [facility] [address] 26016- 9385 Jun, Essential hypertension I10 and Bright red blood per rectum K62.5 [place] [id number] [place] [address] 33442- 6391 Jun, Elevated alkaline phosphatase level R74.8 [place] [id number] [place] [address] 93679- 9797 Jun, [place] [address] 96615- 6240 May, Essential hypertension I10 ; Hyperlipidemia E78.5 and Well woman exam (no gynecological exam) Z00.00 [place] [address] 42707- 0571 May, [place] [address] 88873- 2111 May, [place] [address] 13181- 0065 Mar, [place] [id number] [place] [address] 81834- 8654 Mar, [place] [address] 31390- 6438 Mar, [place] [id number] [place] [address] 13338- 7773 Feb, Acute recurrent maxillary sinusitis J01.01 ; Asthma, unspecified, unspecified status 493.90 ; Seasonal allergies J30.2 and Cat allergies J30.81 [place] [id number] [place] [address] 37758- 4919 13 Feb, 2015 Upper respiratory tract infection, unspecified upper respiratory infection J06.9 [place] [id number] [place] [address] 15000- 6074 Jan, [place] [id number] [place] [address] 09724- 3704 02 Jan, 2015 Dysphagia 787.20 and GERD (gastroesophageal reflux disease) 530.81 [facility] [address], [place] [address]- 4019 Jan, Breast lesion 611.9 [facility] [id number] [place] [address] 01728- 4736 Dec, Breast lesion 611.9 [facility] [id number] [place] [address] 97025- 6376 Dec, Breast lesion 611.9 [facility] [id number] [place] [address] 13136- 0136 Nov, Fatigue 780.79 and Hyperlipidemia 272.4 [facility] [id number] [place] [address] 88271- 8636 Nov, Hypertension 401.9 ; Hyperlipidemia 272.4 ; Chronic frontal sinusitis 473.1 and Fatigue 780.79 [facility] [id number] [place] [address] 50096- 1214 Nov, [facility] [id number] [place] [address] 01290- 6422 Oct, [facility] [id number] [place] [address] 92172- 4686 Oct, [facility] [address], [place] [address]- 0016 September, [facility] [address] [place] [address] 23407- 0746 September, [facility] [address], [place] [address]- 2546 September, [facility] [address] [place] [address] 04000- 2546 September, [facility] [address], [place] [address]- 7376 Aug, [facility] [address] [place] [address] 79052- 9266 Aug, [facility] [place] [facility] [address] [id number] [place] [address]- 4193 13 Aug, 2014 [facility] [place] [facility] [address] [id number] [place] [address]- 5399 20 Jul, 2014 [facility] [place] [facility] [address] [id number] [place] [address]- 7759 20 Jul, 2014 [facility] [place] [facility] [address] [id number] [place] [address]- 3853 19 Jul, 2014 [facility] [place] [facility] [address] [id number] [place] [address]- 8575 19 Jul, 2014 [facility] [place] [facility] [address] [id number] [place] [address]- 2391 18 Jul, 2014 [facility] [place] [facility] [address] [id number] [place] [address]- 5357 17 Jul, 2014 [facility] [place] [facility] [address] [id number] [place] [address]- 4458 17 Jul, 2014 [facility] [place] [facility] [address] [id number] [place] [address]- 0755 16 Jul, 2014 [facility] [place] [facility] [address] [id number] [place] [address]- 1858 16 Jul, 2014 [facility] [place] [facility] [address] [id number] [place] [address]- 4623 12 Jul, 2014 [facility] [place] [facility] [address] [id number] [place] [address]- 6770 12 Jul, 2014 [facility] [place] [facility] [address] [id number] [place] [address]- 3673 09 Jul, 2014 [facility] [place] [facility] [address] [id number] [place] [address]- 5872 09 Jul, 2014 [facility] [place] [facility] [address] [id number] [place] [address]- 2580 04 Jul, 2014 [facility] [place] [facility] [address] [id number] [address]- 7779 Jul, [facility] [address] [id number] [place] [address]- 3937 Jun, [facility] [place] [facility] [address] [id number] [place] [address]- 4641 Jun, 2014 [facility] [place] [facility] [address] [id number] [place] [address]- 7966 Jun, [facility] [place] [facility] [address] [id number] [place] [address]- 9364 Jun, [facility] [address] [id number] [place] [address]- 0447 May, [facility] [place] [facility] [address] [id number] [place] [address]- 1726 May, [facility] [address] [facility] [id number] [place] [address]- 3835 May, [facility] [place] [facility] [address] [id number] [place] [address]- 8705 May, [facility] [place] [facility] [address] [id number] [place] [address]- 5004 Apr, [facility] [place] [facility] [address] [facility] [id number] [place] [address]- 6656 Apr, [facility] [place] [facility] [address] [id number] [place] [address]- 6791 Apr, [facility] [place] [facility] [address] [id number] [place] [address]- 5975 Apr, [facility] [place] [facility] [address] [id number] [place] [address]- 0545 Apr, [facility] [place] [facility] [address] [id number] [place] [address]- 5944 Apr, [facility] [place] [facility] [address] [facility] [id number] [place] [address]- 4209 Mar, [facility] [place] [facility] [address] [id number] [place] [address]- 5809 Mar, [facility] [place] [facility] [address] [id number] [place] [address]- 9613 Mar, [facility] [place] [facility] [address] [id number] [place] [address]- 2738 Mar, [facility] [place] [facility] [address] [id number] [place] [address]- 1238 Mar, [facility] [place] [facility] [address] [id number] [place] [address]- 8208 Mar, [facility] [place] [facility] [address] [id number] [place] [address]- 0897 Mar, [facility] [place] [facility] [address] [id number] [place] [address]- 0020 Mar, [facility] [place] [facility] [address] [id number] [place] [address]- 2147 Mar, [facility] [place] [facility] [address] [id number] [place] [address]- 9000 Mar, [facility] [place] [facility] [address] [id number] [place] [address]- 6944 Mar, [facility] [place] [facility] [address] [id number] [place] [address]- 4475 Mar, [facility] [place] [facility] [address] [id number] [place] [address]- 7485 Mar, [facility] [place] [facility] [address] [id number] [place] [address]- 9205 Mar, [facility] [place] [facility] [address] [id number] [place] [address]- 6321 Mar, [facility] [place] [facility] [address] [id number] [place] [address]- 9635 Mar, [facility] [place] [facility] [address] [id number] [place] [address]- 2927 Mar, [facility] [place] [facility] [address] [id number] [place] [address]- 7387 30 Feb, 2014 [facility] [place] [facility] [address] [id number] [place] [address]- 3386 30 Feb, 2014 [facility] [place] [facility] [address] [id number] [place] [address]- 0925 30 Feb, 2014 [facility] [place] [facility] [address] [id number] [place] [address]- 4112 30 Feb, 2014 [facility] [place] [facility] [address] [id number] [place] [address]- 5941 29 Feb, 2014 [facility] [place] [facility] [address] [id number] [place] [address]- 2163 29 Feb, 2014 [facility] [place] [facility] [address] [id number] [place] [address]- 2897 Feb, [facility] [place] [facility] [address] [id number] [place] [address]- 4206 Feb, [facility] [place] [facility] [address] [id number] [place] [address]- 7824 28 Feb, 2014 [facility] [place] [facility] [address] [id number] [place] [address]- 6310 28 Feb, 2014 [facility] [place] [facility] [address] [id number], [place] [address]- 0882 16 Feb, 2014 [facility] [place] [facility] [address] [id number], [place] [address]- 6884 16 Feb, 2014 [facility] [place] [facility] [address] [id number] [place] [address]- 4791 15 Feb, 2014 [facility] [place] [facility] [address] [id number], [place] [address]- 8360 15 Feb, 2014 [facility] [place] [facility] [address] [id number], [place] [address]- 6301 08 Feb, 2014 [facility] [place] [facility] [address] [id number] [place] [address]- 3868 08 Feb, 2014 [facility] [place] [facility] [address] [id number] [place] [address]- 7477 Feb, [facility] [place] [facility] [address] [id number] [place] [address]- 0780 Feb, [facility] [place] [facility] [address] [id number] [place] [address]- 2912 Feb, [facility] [place] [facility] [address] [id number] [place] [address]- 5586 30 Jan, 2013 [facility] [place] [facility] [address] [id number] [place] [address]- 4701 30 Jan, 2014 [facility] [place] [facility] [address] [id number] [place] [address]- 2507 29 Jan, 2013 [facility] [place] [facility] [address] [id number] [place] [address]- 4868 29 Jan, 2013 [facility] [place] [facility] [address] [id number] [place] [address]- 2084 24 Jan, 2013 [facility] [place] [facility] [address] [id number] [place] [address]- 6638 24 Jan, 2013 [facility] [place] [facility] [address] [id number] [place] [address]- 8697 10 Jan, 2014 [facility] [place] [facility] [address] [id number] [place] [address]- 2544 08 Jan, 2013 [facility] [place] [facility] [address] [id number] [place] [address]- 8939 08 Jan, 2014 [facility] [place] [facility] [address] [id number] [place] [address] Dec, [facility] [place] [facility] [address] [id number] [place] [address] Dec, [facility] [place] [facility] [address] [id number] [place] [address] Dec, [facility] [place] [facility] [address] [id number] [place] [address] Dec, [facility] [place] [facility] [address] [id number] [place] [address] Dec, [facility] [place] [facility] [address] [id number] [place] [address] Dec, [facility] [place] [facility] [address] [id number] [place] [address] Dec, [facility] [place] [facility] [address] [id number] [place] [address] Dec, [facility] [place] [facility] [address] [id number] [place] [address] Dec, [facility] [place] [facility] [address] [id number] [place] [address] Nov, [facility] [place] [facility] [address] [id number] [place] [address] Nov, [facility] [place] [facility] [address] [id number] [place] [address] Nov, [facility] [place] [facility] [address] [id number] [place] [address] Nov, [facility] [place] [facility] [address] [id number] [place] [address] Nov, [facility] [place] [facility] [address] [id number] [place] [address] Nov, [facility] [place] [facility] [address] [id number] [place] [address] Oct, [facility] [place] [facility] [address] [id number] [place] [address] Oct, [facility] [place] [facility] [address] [id number] [place] [address] Oct, [facility] [place] [facility] [address] [id number] [place] [address] Oct, [facility] [place] [facility] [address] [id number] [place] [address] Oct, [facility] [place] [facility] [address] [id number] [place] [address] Oct, [facility] [place] [facility] [address] [id number] [place] [address] Oct, [facility] [place] [facility] [address] [id number] [place] [address] Oct, [facility] [place] [facility] [address] [id number] [place] [address] Oct, [facility] [place] [facility] [address] [id number] [place] [address] Oct, [facility] [place] [facility] [address] [id number] [place] [address] Oct, [facility] [place] [facility] [address] [id number] [place] [address] Oct, [facility] [place] [facility] [address] [id number] [place] [address] Oct, [facility] [place] [facility] [address] [id number] [place] [address] Oct, [facility] [place] [facility] [address] [id number] [place] [address] September, [facility] [place] [facility] [address] [id number] [place] [address] September, [facility] [place] [facility] [address] [id number] [place] [address] September, [facility] [place] [facility] [address] [id number] [place] [address] September, [facility] [place] [facility] [address] [id number] [place] [address] September, [facility] [place] [facility] [address] [id number] [place] [address] September, [facility] [address] [id number] [place] [address] September, [facility] [place] [facility] [address] [id number] [place] [address] September, [facility] [address] [id number] [place] [address] September, [facility] [place] [facility] [address] [id number] [place] [address] September, [facility] [address] [id number] [place] [address] 97[address] September, [facility] [address] [id number] [place] [address] September, [facility] [address] [id number] [place] [address] 2071 September, [facility] [address] [id number] [place] [address] 2856 September, [facility] [place] [facility] [address] [id number] [place] [address] 1714 September, [facility] [address] [id number] [place] [address] 9[address] September, [facility] [place] [facility] [address] [id number] [place] [address] 75[address] September, [facility] [place] [facility] [address] [id number] [place] [address] 2246 September, [facility] [place] [facility] [address] [id number] [place] [address] 7596 September, [facility] [place] [facility] [address] [id number] [place] [address] Aug, [facility] [place] [facility] [address] [id number] [place] [address] 1008 Aug, [facility] [place] [facility] [address] [id number] [place] [address]- [address]797 31 Jul, 2013 [facility] [place] [facility] [address] [id number] [place] [address]- 8631 31 Jul, 2013 [facility] [place] [facility] [address] [id number] [place] [address]- 9224 28 Jul, 2013 [facility] [place] [facility] [address] [id number] [place] [address]- 6530 28 Jul, 2013 [facility] [place] [facility] [address] [id number] [place] [address]- 7630 Jul, [facility] [place] [facility] [address] [id number] [place] [address]- 3456 Jul, [facility] [place] [facility] [address] [id number] [place] [address]- 3483 Jul, [facility] [place] [facility] [address] [id number] [place] [address]- 2588 Jul, [facility] [place] [facility] [address] [id number] [place] [address]- 3296 Jul, [facility] [place] [facility] [address] [id number] [place] [address]- 8866 Jul, [facility] [place] [facility] [address] [id number] [place] [address]- 5091 Jul, [facility] [place] [facility] [address] [id number] [place] [address]- 9450 14 Jul, 2013 [facility] [place] [facility] [address] [id number] [place] [address]- 5074 Jul, [facility] [place] [facility] [address] [id number] [place] [address]- 4782 07 Jul, 2013 [facility] [place] [facility] [address] [id number] [place] [address]- 7584 10 Jun, 2013 [facility] [place] [facility] [address] [id number] [place] [address]- 8953 10 Jun, 2013 [facility] [address] [id number] [place] [address]- 9278 Jun, [facility] [place] [facility] [address] [id number] [place] [address]- 4424 10 Jun, 2013 [facility] [place] [facility] [address] [id number] [place] [address]- 0152 May, [facility] [place] [facility] [address] [id number] [place] [address]- 4958 May, [facility] [place] [facility] [address] [id number] [place] [address]- 1464 May, [facility] [place] [facility] [address] [id number] [place] [address]- 1738 May, [facility] [address] [id number] [place] [address]- 5132 May, [facility] [address] [id number] [place] [address]- 8046 Mar, [facility] [place] [facility] [address] [id number] [place] [address]- 1585 Mar, [facility] [place] [facility] [address] [facility] [id number] [place] [address]- 7648 Mar, [facility] [place] [facility] [address] [id number] [place] [address]- 6331 Mar, [facility] [place] [facility] [address] [id number] [place] [address]- 6487 Mar, [facility] [place] [facility] [address] [id number] [place] [address]- 2235 Mar, [facility] [place] [facility] [address] [id number] [place] [address]- 4204 Feb, [facility] [place] [facility] [address] [id number] [place] [address]- 8004 Feb, [facility] [place] [facility] [address] [id number] [place] [address]- 3018 Feb, [facility] [place] [facility] [address] [id number] [place] [address]- 9659 Feb, [facility] [place] [facility] [address] [id number] [place] [address]- 0964 Feb, [facility] [place] [facility] [address] [id number] [place] [address]- 8813 Feb, [facility] [place] [facility] [address] [id number] [place] [address]- 7638 Feb, [facility] [place] [facility] [address] [id number] [place] [address]- 6719 Feb, [facility] [place] [facility] [address] [id number] [place] [address]- 7560 Feb, [facility] [place] [facility] [address] [id number] [place] [address]- 7677 Feb, [facility] [place] [facility] [address] [id number] [place] [address]- 0053 Feb, [facility] [place] [facility] [address] [id number], [place] [address] 3117 Feb, [facility] [place] [facility] [address] [id number], [place] [address]- 6961 Jan, [facility] [place] [facility] [address] [id number], [place] [address]- 9548 Jan, [facility] [place] [facility] [address] [id number] [place] [address]- 6100 Dec, [facility] [place] [facility] [address] [id number], [place] [address]- 4305 Dec, [facility] [place] [facility] [address] [id number], [place] [address] 8759 Nov, [facility] [place] [facility] [address] [id number], [place] [address]- 2698 Nov, [facility] [address] [id number] [place] [address]- 9281 Nov, [facility] [place] [facility] [address] [id number] [place] [address]- 0464 Nov, [facility] [address] [id number] [place] [address]- 3585 Nov, [facility] [address] [id number] [place] [address]- 4109 Oct, [facility] [address] [id number] [place] [address]- 9724 September, [facility] [address] [id number] [place] [address]- 4308 Aug, [facility] [address] [id number] [place] [address]- 9976 Jul, [facility] [place] [facility] [address] [id number] [place] [address]- 6845 Jul, [facility] [address] [id number] [place] [address]- 9484 Jul, [facility] [address] [id number] [place] [address]- 6308 28 Jun, 2012 [facility] [address] [id number] [place] [address]- 0012 14 Jun, 2012 [facility] [place] [facility] [address] [id number] [place] [address]- 5765 Jun, [facility] [place] [facility] [address] [id number] [place] [address]- 5689 Jun, [facility] [place] [facility] [address] [id number] [place] [address] 07 Jun, 2012 [facility] [place] [facility] [address] [id number] [address] May, [facility] [place] [facility] [address] [id number] [place] [address]- 4913 May, [facility] [place] [facility] [address] [id number] [place] [address]- 2287 Apr, [facility] [place] [facility] [address] [id number] [place] [address]- 6144 Apr, [facility] [place] [facility] [address] [id number] [place] [address]- 1310 Mar, [facility] [place] [facility] [address] [id number] [place] [address]- 4145 Mar, [facility] [place] [facility] [address] [id number] [place] [address]- 6436 Mar, [facility] [place] [facility] [address] [id number] [place] [address]- 2874 Mar, [facility] [place] [facility] [address] [id number] [place] [address]- 2897 Mar, [facility] [place] [facility] [address] [id number] [place] [address]- 1870 Mar, [facility] [place] [facility] [address] [id number] [place] [address]- 9127 Mar, [facility] [place] [facility] [address] [id number] [place] [address]- 4190 Mar, [facility] [place] [facility] [address] [id number] [place] [address]- 4081 Mar, [facility] [place] [facility] [address] [id number] [place] [address]- 1917 Mar, [facility] [place] [facility] [address] [id number] [place] [address]- 8606 Feb, [facility] [place] [facility] [address] [id number] [place] [address]- 2598 Feb, [facility] [place] [facility] [address] [id number] [place] [address]- 6806 Feb, [facility] [place] [facility] [address] [id number] [place] [address]- 2909 Feb, [facility] [place] [facility] [address] [id number] [place] [address]- 2546 Feb, [facility] [place] [facility] [address] [id number] [place] [address] 2546 Feb, [facility] [place] [facility] [address] [id number] [place] [address]- 2546 Jan, [facility] [place] [facility] [address] [id number] [place] [address]- 1452 Jan, [facility] [place] [facility] [address] [id number] [place] [address]- 0499 Dec, [facility] [place] [facility] [address] [id number] [place] [address]- 8656 Dec, [facility] [place] [facility] [address] [id number] [place] [address]- 0716 Dec, [facility] [place] [facility] [address] [id number] [place] [address]- 2461 Nov, [facility] [place] [facility] [address] [id number] [place] [address]- 7536 September, [facility] [place] [facility] [address] [id number] [place] [address]- 5248 September, [facility] [place] [facility] [address] [id number] [place] [address]- 5634 September, [facility] [place] [facility] [address] [id number] [place] [address]- 0506 September, [facility] [place] [facility] [address] [id number] [place] [address]- 1385 Aug, [facility] [place] [facility] [address] [id number] [place] [address]- 6065 Aug, [facility] [place] [facility] [address] [id number] [place] [address]- 5791 19 Aug, 2011 [facility] [address] [id number] [place] [address]- 5857 Aug, [facility] [place] [facility] [address] [id number] [place] [address]- 6906 05 Aug, 2011 [facility] [address] [id number] [place] [address]- 5063 Jul, [facility] [place] [facility] [address] [id number] [place] [address]- 3531 05 Jul, 2011 [facility] [address] [id number] [place] [address]- 0824 Jul, [facility] [address] [facility] [id number] [place] [address]- 1693 29 Jun, 2011 [facility] [place] [facility] [id number] [place] [address]- 5988 17 Jun, 2011 [facility] [address] [id number] [place] [address]- 9530 13 Jun, 2011 [facility] [id number] [place] [address]- 4702 Jun, [facility] [address] [id number] [place] [address]- 9930 Jun, [facility] [place] [facility] [address] [facility] [id number] [place] [address]- 2579 Jun, [facility] [place] [facility] [address] [id number] [place] [address]- 4978 Jun, [facility] [place] [facility] [address] [id number] [place] [address]- 0288 24 May, 2011 [facility] [place] [facility] [address] [id number] [place] [address]- 3017 18 May, 2011 [facility] [place] [facility] [address] [facility] [id number] [place] [address]- 2933 12 May, 2011 [facility] [place] [facility] [address] [id number] [place] [address]- 0923 12 May, 2011 [facility] [place] [facility] [address] [id number] [place] [address]- 5907 Apr, [facility] [place] [facility] [address] [id number] [place] [address]- 7990 Apr, [facility] [place] [facility] [address] [id number] [place] [address]- 6760 Mar, [facility] [place] [facility] [address] [id number] [place] [address]- 6227 Mar, [facility] [place] [facility] [address] [id number] [place] [address]- 5363 Mar, [facility] [place] [facility] [address] [id number] [place] [address]- 4671 Nov, [facility] [place] [facility] [address] [id number] [place] [address]- 2531 May, [facility] [place] [facility] [address] [id number] [place] [address]- 0970 Apr, [facility] [place] [facility] [address] [id number] [place] [address]- 4519 Apr, [facility] [place] [facility] [address] [id number] [place] [address]- 6644 Apr, [facility] [place] [facility] [address] [id number], [place] [address]- 7628 Apr, [facility] [place] [facility] [address] [id number] [place] [address]- 3953 Apr, [facility] [place] [facility] [address] [id number] [place] [address]- 7481 Mar, [facility] [place] [facility] [address] [id number] [place] [address]- 9124 Mar, [facility] [place] [facility] [address] [id number] [address] Feb, [facility] [id number], [place] [address]- 0338 Aug, [facility] [id number] [address] Jul, [facility] [id number] [address] Jun, [facility] [id number] [place] [address]- 4779 Apr, [facility] [id number] [place] [address]- 6862 Apr, [facility] [id number] [place] [address] 4[address]69- 1750 Mar, [facility] [id number] [place] [address]- 3530 Mar, [facility] [id number], [place] [address]- 2662 Feb, [facility] [address], [place] [address]- 3988 Dec, [facility] [address]65[address], [place] [address]- 6136 Oct, IMMUNIZATIONS No Known Immunizations SOCIAL HISTORY Never Assessed REASON FOR VISIT Well Woman Exam Edward DUKE, Yeast smell under breast and abd fold Edward DUKE PLAN OF CARE Activity Details Follow Up prn with PCP Reason: VITAL SIGNS Height 66 in 2018-01-27 Weight 259.6 lbs 2018-01-27 Temperature 98.4 degrees Fahrenheit 2018-01-27 Heart Rate 96 bpm 2018-01-27 Respiratory Rate 2018-01-27 BMI 41.90 kg/m2 2018-01-27 Blood pressure systolic 154 mmHg 2018-01-27 Blood pressure diastolic 92 mmHg 2018-01-27 MEDICATIONS Medication Instructions Dosage Frequency Start Date End Date Duration Status Klor-Con M20 20 MEQ Orally Once a day 1 tablet with food 24h 90 days Active Pepcid 20 mg Orally 2 times a day 1 tablet at bedtime 12h 90 days Active Amlodipine Besylate 10 mg Orally Once a day 1 tablet 24h 90 days Active Fluconazole 100 mg 2 tablet today then 1 tablet daily Jan, 2 Feb, 2018 11 days Active Alprazolam 0.5 mg take 1 tablet by Oral route 2 times per day Jan, Active ProAir HFA 108 (90 Base) mcg/act 2 puffs by Inhalation route 4 times per day PRN needs to keep appointment 01-10-14 Dec, Active Viibryd 40 MG Orally Once a day 1 tablet 24h Active Nortriptyline HCl 25 MG Orally Once a day at bedtime 2 capsule Active Nystatin [id number] UNIT/GM Externally 3 times a day 1 application to affected area 8h Jan, Feb, 10 days Active Metoprolol Succinate ER 50 mg Orally Once a day 1 tablet 24h 90 days Active Abilify 10 MG Orally Once a day 1 tablet 24h Active Lisinopril 40 MG TAKE ONE TABLET BY MOUTH ONCE DAILY Active Carbamazepine 200 mg Orally in the morning and 2 tablets at bedtime 1 tablet 30 days Active Flonase 50 MCG/ACT Nasally Once a day 1 spray in each nostril 24h Active Aspirin 325 MG Orally Once a day 1 tablet 24h Active BusPIRone HCl 10 mg Orally twice a day 1 tablet 12h Active RESULTS No Results PROCEDURES Procedure Date Ordered Result Body Site SPECIMEN HANDLING Jan 27, 2018 GLYCATED HEMOGLOBIN TEST Jan 27, 2018 [facility] VISIT ESTABLISHED PATIENT Jan 27, 2018 INSTRUCTIONS MEDICATIONS ADMINISTERED No Known Medications MEDICAL (GENERAL) HISTORY Type Description Date Medical History hypertension Medical History neuropathy Medical History depression Medical History anxiety Medical History Hyposmolality and/or hyponatremia Surgical History cleaned out left side of sinuses 2013 Surgical History colonscopy 09/03/15 Hospitalization History cellulitis 09/2013 Hospitalization History surgery 2013 Hospitalization History A Fib--[facility] 03/08/2016 Hospitalization History acute chest pain, hypertensive urgency, paroxsysmal htn-[facility] 05/10/16
--- OUTSIDE RECORDS SUMMARY | 2018-09-17 11:42 | XMS REPORT ---
Author Author JORDY DESIREE [facility] Address [address] [place] [address] Care Team Providers Care Cottrell Blower Name Role Phone DESIREE SPENCE Unavailable PROBLEMS Type Condition ICD9-CM Code [id number] Code Onset Dates Condition Status SNOMED Code Problem Vitamin D deficiency E55.9 Active 49376332 Problem Chronic frontal sinusitis J32.1 Active 26923754 Problem Hyponatremia E87.1 Active 71882014 Problem BMI 40.0-44.9, adult Z68.41 Active 019382042 Problem Seasonal allergies J30.2 Active 219619423 Problem Secondary pulmonary arterial hypertension I27.21 Active 93952234 Problem Other chronic gastritis without hemorrhage K29.50 Active 3165364 Problem Paroxysmal atrial fibrillation I48.0 Active 712882444 Problem Fasciculations of muscle R25.3 Active 07747695 Problem Depression, unspecified depression type F32.9 Active 39405324 Problem Mild intermittent asthma without complication J45.20 Active 581928171 Problem Chronic migraine G43.709 Active 14372111 Problem Primary insomnia F51.01 Active 438535010 Problem Generalized anxiety disorder F41.1 Active 150630534 Problem Elevated alkaline phosphatase level R74.8 Active 884645478 Problem Obstructive sleep apnea G47.33 Active 31055841 Problem Hidradenitis L73.2 Active 45372187 Problem Essential hypertension I10 Active 76036385 Problem Idiopathic peripheral neuropathy G60.9 Active 16001386 Problem Hyperlipidemia E78.5 Active 16100446 ALLERGIES No Information ENCOUNTERS Encounter Location Date Diagnosis [facility] [address] [address] Jan, Essential hypertension I10 [facility] [address] [address] Jan, [facility] [address] [address] 16[address] 21 Jan, 2018 Screening for cervical cancer Z12.4 ; BMI 40.0-44.9, adult Z68.41 ; Screening for breast cancer Z12.31 ; Candidal intertrigo B37.2 and Elevated glucose level R73.09 [facility] [address] [address] 12 Jan, 2018 Essential hypertension I10 [facility] [address] [place] [id number] [place] [address] 71927- 2806 Dec, [facility] [id number] [place] [address] 97502- 4811 Dec, [facility] [id number] [place] [address] 81497- 9560 Dec, Essential hypertension I10 [facility] [id number] [address] 5179 Nov, Essential hypertension I10 [facility] [id number] [place] [address] 27766- 1343 Nov, [facility] [id number] [place] [address] 92356- 6096 Nov, Essential hypertension I10 and BMI 40.0-44.9, adult Z68.41 [facility] [address] [address] 49[address] Oct, Essential hypertension I10 and Chronic kidney disease, unspecified CKD stage N18.9 [facility] [address] [address] 4681 Oct, Essential hypertension I10 and Chronic kidney disease, unspecified CKD stage N18.9 [facility] [id number] [address] 1701 Oct, [facility] [address] [address] 8[address] September, Medicare annual wellness visit, initial Z00.00 ; Mild intermittent asthma without complication J45.20 ; Generalized anxiety disorder F41.1 ; Depression, unspecified depression type F32.9 ; Paroxysmal atrial fibrillation I48.0 ; Obstructive sleep apnea G47.33 ; Hyponatremia E87.1 ; Need for hepatitis C screening test Z11.59 ; Encounter for immunization Z23 ; Secondary pulmonary arterial hypertension I27.21 and BMI 40.0-44.9, adult Z68.41 [facility] [address] [address]- [address] 30 Aug, 2017 Essential hypertension I10 [facility] [address] [address] Jun, Dysuria R30.0 ; UTI symptoms R39.9 and Candidiasis of breast B37.89 [facility] [address] [address]47- 4656 Jun, Hyponatremia E87.1 [facility] [address] 9[address]13- 2625 Jun, Hyponatremia E87.1 [facility] [address] 48074- 3859 Jun, Hyponatremia E87.1 [facility] [address] 52328- 1141 Jun, [facility] [address] 47843- 7510 May, Hyponatremia E87.1 [facility] [address] 74387- 8989 May, Hyponatremia E87.1 [facility] [address] 74195- 4020 May, Hyponatremia E87.1 [facility] [address] 63837- 5466 May, Hyponatremia E87.1 [facility] [address] 69941- 3980 Apr, Hyponatremia E87.1 ; Fasciculations of muscle R25.3 and Hyperlipidemia E78.5 [facility] [id number] [place] [address] 45114- 1949 Apr, Cough R05 ; Hyponatremia E87.1 ; Fasciculations of muscle R25.3 ; Primary insomnia F51.01 ; Essential hypertension I10 ; Hyperlipidemia E78.5 ; Screening for breast cancer Z12.31 and BMI 40.0-44.9, adult Z68.41 [facility] [id number] [place] [address] 07461- 9214 Apr, Essential hypertension I10 [facility] [id number] [place] [address] 50260- 0099 Mar, [facility] [id number] [place] [address] 88591- 0679 Mar, [facility] [id number] [place] [address] 16406- 8742 Mar, [facility] [id number] [place] [address] 61932- 0657 Feb, [facility] [id number] [place] [address] 21115- 9623 Jan, [facility] [id number] [place] [address] 69420- 0883 Dec, Essential hypertension I10 [facility] [id number] [place] [address] 08369- 4043 Dec, [facility] [id number] [place] [address] 56968- 0890 Dec, Essential hypertension I10 [facility] [id number] [place] [address] 56107- 1156 Nov, [facility] [address] 97[address] Oct, Essential hypertension I10 [facility] [id number] [place] [address] 80594- 8886 Oct, Essential hypertension I10 [facility] [address] 19576- 1025 Oct, [facility] [id number] [place] [address] 26767- 5664 September, [facility] [address] 25364- 1408 September, Essential hypertension I10 [facility] [id number] [place] [address] 14961- 4016 September, [facility] [id number] [place] [address] 46754- 2228 September, Essential hypertension I10 ; Hyperlipidemia E78.5 and Hyponatremia E87.1 [facility] [address] 97892- 2804 September, Mild intermittent asthma without complication J45.20 ; Essential hypertension I10 ; Hyperlipidemia E78.5 ; Hyponatremia E87.1 and Dysuria R30.0 [facility] [id number] [place] [address] 41629- 9423 September, Other chronic gastritis without hemorrhage K29.50 ; Paroxysmal atrial fibrillation I48.0 and Essential hypertension I10 [facility] [id number] [place] [address] 22760- 7470 Aug, [facility] [id number] [place] [address] 47682- 7069 14 Jul, 2016 [facility] [id number] [place] [address] 78822- 9284 14 Jun, 2016 [facility] [id number] [place] [address] 78133 -9901 07 Jun, 2016 Dysuria R30.0 and Acute cystitis with hematuria N30.01 [facility] [address] 94344- 8202 Jun, Essential hypertension I10 [facility] [id number] [place] [address] 92685- 1438 May, Paroxysmal atrial fibrillation I48.0 [facility] [id number] [place] [address] 59401- 5063 May, Other chronic gastritis without hemorrhage K29.50 [facility] [address] 69433- 5343 May, [facility] [id number] [place] [address] 81782- 1084 May, Hyponatremia E87.1 ; Essential hypertension I10 and Other chronic gastritis without hemorrhage K29.50 [facility] [id number] [place] [address] 65965- 8260 May, Hyponatremia E87.1 [facility] [address] 71071- 7468 May, Hyponatremia E87.1 [facility] [address] [id number] May, [facility] [id number] [place] [address] 07781- 2041 Apr, [facility] [id number] [place] [address] 99448- 2090 Apr, [facility] [id number] [place] [address] 64531- 2062 Mar, Essential hypertension I10 and Candidal intertrigo B37.2 [facility] [id number] [place] [address] 08232- 4425 Mar, Hyponatremia E87.1 [facility] [id number] [place] [address] 89268- 4897 14 Mar, 2016 [facility] [id number] [place] [address] 37505- 0104 Mar, Hyponatremia E87.1 [facility] [id number] [place] [address] 62708- 0051 Mar, Essential hypertension I10 ; Hyponatremia E87.1 ; Slurred speech R47.81 ; Paroxysmal atrial fibrillation I48.0 and Elevated blood sugar R73.9 [facility] [id number] [place] [address] 71676- 7353 Mar, [facility] [address] 47225- 4213 Mar, [facility] [address] 88035- 3536 Feb, [facility] [address] 01313- 0291 Jan, [facility] [address] 58329- 6324 Dec, [facility] [address] 03669 -3815 Nov, Scratched by cat, initial encounter W55.03XA and Other injury of unspecified body region T14.8 [facility] [address] 05742- 0971 Nov, [facility] [id number] [place] [address] 75225- 9812 Oct, [facility] [address] 76792- 0102 September, [facility] [id number] [place] [address] 00008- 1835 Aug, Elevated alkaline phosphatase level R74.8 [facility] [address] 62998- 0638 Jul, [facility] [id number] [place] [address] 55473- 8022 Jun, Essential hypertension I10 and Bright red blood per rectum K62.5 [facility] [id number] [place] [address] 95435- 8405 11 Jun, 2015 Elevated alkaline phosphatase level R74.8 [facility] [id number] [place] [address] 59216- 0387 10 Jun, 2015 [facility] [address] 76759- 9348 May, Essential hypertension I10 ; Hyperlipidemia E78.5 and Well woman exam (no gynecological exam) Z00.00 [facility] [id number] [place] [address] 19089- 9844 May, [facility] [address] 80020- 7145 May, [facility] [address] 94192- 6566 Mar, [facility] [address] 67323- 7636 Mar, [facility] [id number] [place] [address] 67728- 0767 Mar, [facility] [id number] [place] [address] 66782- 5286 Feb, Acute recurrent maxillary sinusitis J01.01 ; Asthma, unspecified, unspecified status 493.90 ; Seasonal allergies J30.2 and Cat allergies J30.81 [facility] [id number] [place] [address] 14953- 8551 Feb, Upper respiratory tract infection, unspecified upper respiratory infection J06.9 [facility] [address] 80004- 9043 Jan, [facility] [id number] [place] [address] 45265- 0843 02 Jan, 2015 Dysphagia 787.20 and GERD (gastroesophageal reflux disease) 530.81 [facility] [address] [place] [address]- 2086 Jan, Breast lesion 611.9 [facility] [address] [place] [address] 04097- 7476 Dec, Breast lesion 611.9 [facility] [address] [address]- 1126 Dec, Breast lesion 611.9 [facility] [address] [place] [address] 96926- 1277 Nov, Fatigue 780.79 and Hyperlipidemia 272.4 [facility] [address] [place] [address] 22361- 0048 Nov, Hypertension 401.9 ; Hyperlipidemia 272.4 ; Chronic frontal sinusitis 473.1 and Fatigue 780.79 [facility] [address] [address]- 2134 Nov, [facility] [address] [address]- 4928 Oct, [facility] [address]- 2594 Oct, [facility] [address] [address]- 5756 September, [facility] [address] [address]- 9736 September, [facility] [address] [address]- 2006 September, [facility] [address] [address]- 8036 September, [facility] [address] [address]- 2036 Aug, [facility] [address] [address]- 2856 Aug, [facility] [address] [address]- 6784 13 Aug, 2014 [facility] [place] [facility] [address] [id number] [place] [address]- 3803 20 Jul, 2014 [facility] [place] [facility] [address] [id number] [place] [address]- 3625 20 Jul, 2014 [facility] [place] [facility] [address] [id number] [place] [address]- 7625 19 Jul, 2014 [facility] [place] [facility] [address] [id number] [place] [address]- 5844 19 Jul, 2014 [facility] [place] [facility] [address] [id number] [place] [address]- 3744 18 Jul, 2014 [facility] [place] [facility] [address] [id number] [place] [address]- 4023 17 Jul, 2014 [facility] [place] [facility] [address] [id number] [place] [address]- 3721 17 Jul, 2014 [facility] [place] [facility] [address] [id number] [place] [address]- 7849 16 Jul, 2014 [facility] [place] [facility] [address] [id number] [place] [address]- 1249 16 Jul, 2014 [facility] [place] [facility] [address] [id number] [place] [address]- 5364 12 Jul, 2014 [facility] [place] [facility] [address] [id number] [place] [address]- 3023 Jul, [facility] [place] [facility] [address] [id number] [place] [address]- 0858 09 Jul, 2014 [facility] [place] [facility] [address] [id number] [place] [address]- 7483 Jul, [facility] [place] [facility] [address] [id number] [place] [address]- 3348 04 Jul, 2014 [facility] [place] [facility] [address] [id number] [place] [address]- 7857 04 Jul, 2014 [facility] [place] [facility] [address] [id number] [place] [address]- 2565 Jun, 2014 [facility] [place] [facility] [address] [id number] [place] [address]- 8374 Jun, 2014 [facility] [place] [facility] [address] [id number] [place] [address]- 1338 Jun, 2014 [facility] [place] [facility] [address] [id number] [place] [address]- 8449 Jun, 2014 [facility] [place] [facility] [address] [id number] [place] [address]- 6232 May, [facility] [place] [facility] [address] [id number] [place] [address]- 8533 May, [facility] [place] [facility] [address] [id number] [place] [address]- 1734 May, [facility] [place] [facility] [address] [id number] [place] [address]- 7747 May, [facility] [place] [facility] [address] [id number] [place] [address]- 0310 Apr, [facility] [place] [facility] [address] [id number] [place] [address]- 8385 Apr, [facility] [place] [facility] [address] [id number] [place] [address]- 2943 Apr, [facility] [place] [facility] [address] [id number] [place] [address]- 6764 Apr, [facility] [place] [facility] [address] [id number] [place] [address]- 4761 Apr, [facility] [place] [facility] [address] [id number] [place] [address]- 8152 Apr, [facility] [place] [facility] [address] [id number] [place] [address]- 3768 Mar, [facility] [place] [facility] [address] [id number] [place] [address]- 1133 Mar, [facility] [place] [facility] [address] [id number] [place] [address]- 6671 Mar, [facility] [place] [facility] [address] [id number] [place] [address]- 9053 Mar, [facility] [place] [facility] [address] [id number] [place] [address]- 0776 Mar, [facility] [place] [facility] [address] [id number] [place] [address]- 1235 Mar, [facility] [place] [facility] [address] [id number] [place] [address]- 3544 Mar, [facility] [place] [facility] [address] [id number] [place] [address]- 3154 Mar, [facility] [place] [facility] [address] [id number] [place] [address]- 9106 Mar, [facility] [place] [facility] [address] [id number] [place] [address]- 3732 Mar, [facility] [place] [facility] [address] [id number] [place] [address]- 9662 Mar, [facility] [place] [facility] [address] [id number] [place] [address]- 0848 Mar, [facility] [place] [facility] [address] [id number] [address]- 9857 Mar, [facility] [place] [facility] [address] [id number] [address]- 8980 Mar, [facility] [place] [facility] [address] [id number] [place] [address]- 4029 Mar, [facility] [place] [facility] [address] [id number] [address]- 6187 Mar, [facility] [place] [facility] [address] [id number] [address]- 6643 Mar, [facility] [place] [facility] [address] [id number] [place] [address]- 2706 30 Feb, 2013 [facility] [place] [facility] [address] [id number] [place] [address]- 4919 30 Feb, 2013 [facility] [place] [facility] [address] [id number] [place] [address]- 7488 30 Feb, 2013 [facility] [place] [facility] [address] [id number] [place] [address]- 3407 30 Feb, 2013 [facility] [place] [facility] [address] [id number] [place] [address]- 6898 29 Feb, 2013 [facility] [place] [facility] [address] [id number] [place] [address]- 0623 29 Feb, 2013 [facility] [place] [facility] [address] [id number] [place] [address]- 7291 Feb, [facility] [place] [facility] [address] [id number] [place] [address]- 2948 Feb, 2013 [facility] [place] [facility] [address] [id number] [place] [address]- 2930 28 Feb, 2014 [facility] [place] [facility] [address] [id number] [place] [address]- 7199 28 Feb, 2013 [facility] [place] [facility] [address] [id number] [place] [address]- 3961 16 Feb, 2013 [facility] [place] [facility] [address] [id number] [place] [address]- 5230 16 Feb, 2013 [facility] [place] [facility] [address] [id number] [place] [address]- 5843 15 Feb, 2014 [facility] [place] [facility] [address] [id number] [place] [address]- 9482 15 Feb, 2014 [facility] [place] [facility] [address] [id number] [place] [address]- 9302 08 Feb, 2013 [facility] [place] [facility] [address] [id number] [place] [address]- 0937 08 Feb, 2014 [facility] [place] [facility] [address] [id number] [place] [address]- 7321 Feb, [facility] [place] [facility] [address] [id number] [place] [address]- 6935 Feb, [facility] [place] [facility] [address] [id number] [place] [address]- 9150 Feb, [facility] [place] [facility] [address] [id number] [place] [address]- 8509 30 Jan, 2013 [facility] [place] [facility] [address] [id number] [place] [address]- 7285 30 Jan, 2013 [facility] [place] [facility] [address] [id number] [place] [address]- 1991 29 Jan, 2013 [facility] [place] [facility] [address] [id number] [place] [address] 29 Jan, 2013 [facility] [place] [facility] [address] [id number] [place] [address] 24 Jan, 2013 [facility] [place] [facility] [address] [id number] [place] [address] 24 Jan, 2013 [facility] [place] [facility] [address] [id number] [place] [address] Jan, 2013 [facility] [place] [facility] [address] [id number] [place] [address] Jan, 2013 [facility] [place] [facility] [address] [id number] [place] [address] 08 Jan, 2013 [facility] [place] [facility] [address] [id number] [place] [address] Dec, [facility] [place] [facility] [address] [id number] [place] [address] Dec, [facility] [place] [facility] [address] [id number] [place] [address]- [address] Dec, [facility] [place] [facility] [address] [id number] [place] [address] Dec, [facility] [place] [facility] [address] [id number] [place] [address]- [address] Dec, [facility] [place] [facility] [address] [id number] [place] [address] Dec, [facility] [place] [facility] [address] [id number] [place] [address] Dec, [facility] [place] [facility] [address] [id number] [place] [address] Dec, [facility] [place] [facility] [address] [id number] [place] [address] Dec, [facility] [place] [facility] [address] [id number] [place] [address]686 Nov, [facility] [place] [facility] [address] [id number] [place] [address] Nov, [facility] [place] [facility] [address] [id number] [place] [address]- [address] Nov, [facility] [place] [facility] [address] [id number] [place] [address]- [address] Nov, [facility] [place] [facility] [address] [id number] [place] [address] Nov, [facility] [place] [facility] [address] [id number] [place] [address] Nov, [facility] [place] [facility] [address] [id number] [place] [address] Oct, [facility] [place] [facility] [address] [id number] [place] [address] Oct, [facility] [place] [facility] [address] [id number] [place] [address] Oct, [facility] [place] [facility] [address] [id number] [place] [address] Oct, [facility] [place] [facility] [address] [id number] [place] [address] Oct, [facility] [place] [facility] [address] [id number] [place] [address] Oct, [facility] [place] [facility] [address] [id number] [place] [address] Oct, [facility] [place] [facility] [address] [id number] [place] [address] Oct, [facility] [place] [facility] [address] [id number] [place] [address] Oct, [facility] [place] [facility] [address] [id number] [place] [address]48 Oct, [facility] [place] [facility] [address] [id number] [place] [address] Oct, [facility] [place] [facility] [address] [id number] [place] [address] Oct, [facility] [place] [facility] [address] [id number] [place] [address] Oct, [facility] [place] [facility] [address] [id number] [place] [address] Oct, [facility] [facility] [address] [id number] [place] [address] September, [facility] [place] [facility] [address] [id number] [place] [address] September, [facility] [place] [facility] [address] [id number] [place] [address] September, [facility] [place] [facility] [address] [id number] [place] [address]- [address] September, [facility] [place] [facility] [address] [id number] [place] [address] September, [facility] [place] [facility] [address] [id number] [place] [address] September, [facility] [address] [id number] [place] [address] September, [facility] [place] [facility] [address] [id number] [place] [address] 8458 September, [facility] [place] [facility] [address] [id number] [place] [address] 9762 September, [facility] [place] [facility] [address] [id number] [place] [address] 4157 September, [facility] [place] [facility] [address] [id number] [place] [address] 4289 September, [facility] [place] [facility] [address] [id number] [place] [address] 2589 September, [facility] [place] [facility] [address] [id number] [place] [address] 8245 September, [facility] [place] [facility] [address] [id number] [place] [address]- 6290 September, [facility] [place] [facility] [address] [id number] [place] [address] 7147 September, [facility] [place] [facility] [address] [id number] [place] [address] 1834 September, [facility] [place] [facility] [address] [id number] [place] [address] 4383 September, [facility] [place] [facility] [address] [id number] [place] [address]- 1446 September, [facility] [place] [facility] [address] [id number] [place] [address]- 4674 September, [facility] [place] [facility] [address] [id number] [place] [address]- 9606 Aug, [facility] [place] [facility] [address] [id number] [place] [address]- 2255 Aug, [facility] [place] [facility] [address] [id number] [place] [address]- 9723 31 Jul, 2013 [facility] [place] [facility] [address] [id number] [place] [address]- 5286 31 Jul, 2013 [facility] [place] [facility] [address] [id number] [place] [address]- 5822 28 Jul, 2013 [facility] [place] [facility] [address] [id number] [place] [address]- 4041 28 Jul, 2013 [facility] [place] [facility] [address] [id number] [place] [address]- 5898 27 Jul, 2013 [facility] [place] [facility] [address] [id number] [place] [address]- 8614 27 Jul, 2013 [facility] [place] [facility] [address] [id number] [place] [address] 8404 27 Jul, 2013 [facility] [place] [facility] [address] [id number] [place] [address]- 4695 Jul, [facility] [place] [facility] [address] [id number] [place] [address]- 8987 Jul, [facility] [place] [facility] [address] [id number] [place] [address]- 6527 25 Jul, 2013 [facility] [place] [facility] [address] [id number] [place] [address]- 0197 14 Jul, 2013 [facility] [place] [facility] [address] [id number] [place] [address]- 6103 14 Jul, 2013 [facility] [place] [facility] [address] [id number] [place] [address]- 2042 Jul, [facility] [place] [facility] [address] [id number] [place] [address]- 3504 07 Jul, 2013 [facility] [place] [facility] [address] [id number] [place] [address]- 8985 10 Jun, 2013 [facility] [place] [facility] [address] [id number] [place] [address]- 7853 10 Jun, 2013 [facility] [place] [facility] [address] [id number] [place] [address]- 6346 Jun, [facility] [place] [facility] [address] [id number] [place] [address]- 9708 Jun, [facility] [place] [facility] [address] [id number] [place] [address] 3339 May, [facility] [place] [facility] [address] [id number] [place] [address]- 6871 May, [facility] [place] [facility] [address] [id number] [place] [address]- 4221 May, [facility] [place] [facility] [address] [id number] [place] [address]- 7452 May, [facility] [place] [facility] [address] [id number] [place] [address]- 6223 May, [facility] [place] [facility] [address] [id number] [place] [address]- 5523 Mar, [facility] [place] [facility] [address] [id number] [place] [address]- 4409 Mar, [facility] [place] [facility] [address] [id number] [place] [address]- 3787 Mar, [facility] [place] [facility] [address] [id number] [place] [address]- 8482 Mar, [facility] [place] [facility] [address] [id number] [address] 12[address] Mar, [facility] [place] [facility] [address] [id number] [place] [address]- 0273 Mar, [facility] [place] [facility] [address] [id number] [place] [address]- 7997 Feb, [facility] [place] [facility] [address] [id number] [place] [address]- 8510 Feb, [facility] [place] [facility] [address] [id number] [address]- 8315 Feb, [facility] [place] [facility] [address] [id number] [place] [address]- 1296 Feb, [facility] [place] [facility] [address] [id number] [place] [address] Feb, [facility] [place] [facility] [address] [id number] [place] [address]- 6120 Feb, [facility] [place] [facility] [address] [id number] [place] [address]- 8247 Feb, [facility] [place] [facility] [address] [id number] [place] [address]- 2865 Feb, [facility] [place] [facility] [address] [id number] [place] [address]- 2817 Feb, [facility] [place] [facility] [address] [id number] [place] [address]- 0625 Feb, [facility] [place] [facility] [address] [id number] [place] [address]- 0522 Feb, [facility] [place] [facility] [address] [id number] [place] [address]- 2834 Feb, [facility] [place] [facility] [address] [id number] [place] [address]- 5053 Jan, [facility] [place] [facility] [address] [id number] [place] [address]- 9322 Jan, [facility] [place] [facility] [address] [id number] [place] [address]- 4820 Dec, [facility] [place] [facility] [address] [id number] [place] [address]- 5209 Dec, [facility] [place] [facility] [address] [id number] [place] [address]- 4584 Nov, [facility] [place] [facility] [address] [id number] [place] [address]- 9607 Nov, [facility] [place] [facility] [address] [id number] [place] [address]- 4669 Nov, [facility] [address] [id number] [place] [address]- 2675 Nov, [facility] [place] [facility] [address] [id number] [place] [address]- 0812 Nov, [facility] [address] [id number] [place] [address]- 0003 Oct, [facility] [place] [facility] [address] [id number] [place] [address]- 5534 September, [facility] [address] [id number] [place] [address]- 1032 Aug, [facility] [address] [id number] [place] [address]- 4864 Jul, [facility] [place] [facility] [address] [id number] [place] [address]- 7720 Jul, [facility] [address] [id number] [place] [address]- 7301 Jul, [facility] [place] [facility] [address] [id number] [place] [address]- 6474 Jun, [facility] [address] [id number] [place] [address]- 0108 14 Jun, 2012 [facility] [place] [facility] [address] [id number] [place] [address]- 0864 Jun, [facility] [place] [facility] [address] [id number] [place] [address]- 1195 Jun, [facility] [place] [facility] [address] [id number] [place] [address]- 4861 07 Jun, 2012 [facility] [place] [facility] [address] [id number] [place] [address]- 5191 May, [facility] [place] [facility] [address] [id number] [address]- 9201 May, [facility] [place] [facility] [address] [id number] [place] [address]- 9051 Apr, [facility] [place] [facility] [address] [id number] [place] Apr, [facility] [place] [facility] [address] [facility] [id number] [place] [address]- 9274 Mar, [facility] [place] [facility] [address] [id number][place] [address]- 4759 Mar, [facility] [place] [facility] [address] [id number] [place] [address]- 7211 Mar, [facility] [place] [facility] [address] [facility] [id number] [place] [address]- 8731 Mar, [facility] [place] [facility] [address] [facility] [id number], [place] [address]- 9280 Mar, [facility] [place] [facility] [address] [id number][place] [address]- 3359 Mar, [facility] [place] [facility] [address] [id number] [address]- 3435 Mar, [facility] [place] [facility] [address] [facility] [id number][place] [address]- 2270 Mar, [facility] [place] [facility] [address] [id number], [place] [address]- 7224 Mar, [facility] [place] [facility] [address] [id number] [address]- 7719 Mar, [facility] [place] [facility] [address] [id number][place] [address]- 8057 Feb, [facility] [place] [facility] [address] [facility] [id number] [address]- 0445 Feb, [facility] [place] [facility] [address] [facility] [id number] [address]- 0920 Feb, [facility] [place] [facility] [address] [id number] [place] [address]- 7299 Feb, [facility] [address] [id number] [place] [address]- 4016 Feb, [facility] [address] [id number] [place] [address]- 2546 Feb, [facility] [address] [id number] [place] [address]- 5263 Jan, [facility] [address] [id number] [place] [address]- 7221 Jan, [facility] [address] [id number] [place] [address]- 4392 Dec, [facility] [address] [id number] [place] [address]- 7972 Dec, [facility] [address] [id number] [place] [address]- 7446 Dec, [facility] [address] [id number] [place] [address]- 3949 Nov, [facility] [address] [id number] [place] [address]- 3270 September, [facility] [address] [id number] [place] [address]- 6408 September, [facility] [address] [id number] [place] [address]- 9869 September, [facility] [address] [id number] [place] [address]- 4629 September, [facility] [place] [facility] [address] [id number] [place] [address]- 9793 Aug, [facility] [place] [facility] [address] [id number] [place] [address]- 5039 Aug, [facility] [address] [id number] [place] [address]- 3067 Aug, [facility] [address] [id number] [place] [address]- 5824 10 Aug, 2011 [facility] [place] [facility] [address] [id number] [place] [address]- 1906 05 Aug, 2011 [facility] [place] [facility] [address] [id number] [place] [address]- 9476 13 Jul, 2011 [facility] [place] [facility] [address] [id number] [place] [address]- 1536 Jul, [facility] [place] [facility] [address] [id number] [place] [address]- 7089 Jul, [facility] [place] [facility] [address] [id number] [place] [address]- 9316 29 Jun, 2011 [facility] [place] [facility] [address] [facility] [id number] [place] [address]- 3476 17 Jun, 2011 [facility] [place] [facility] [address] [id number] [place] [address]- 2500 13 Jun, 2011 [facility] [place] [facility] [address] [id number] [place] [address]- 9845 Jun, [facility] [place] [facility] [address] [id number] [place] [address]- 9126 Jun, [facility] [place] [facility] [address] [id number] [place] [address]- 1176 Jun, [facility] [place] [facility] [address] [id number] [address]- 2596 Jun, [facility] [place] [facility] [address] [id number] [place] [address]- 9846 May, [facility] [place] [facility] [address] [id number] [place] [address]- 5236 May, [facility] [place] [facility] [address] [id number] [place] [address]- 7436 May, [facility] [place] [facility] [address] [id number] [place] [address]- 4350 12 May, 2011 [facility] [address] [id number] [place] [address]- 2190 27 Apr, 2011 [facility] [address] [id number] [place] [address]- 0986 13 Apr, 2011 [facility] [address] [id number] [place] [address]- 5216 Mar, [facility] [address] [id number] [place] [address]- 254 Mar, [facility] [address] [id number] [place] [address]- 4496 Mar, [facility] [address] [id number] [place] [address]- 4793 Nov, [facility] [address] [id number] [place] [address]- 0536 13 May, 2010 [facility] [address] [id number] [place] [address]- 2638 23 Apr, 2010 [facility] [address] [id number] [place] [address]- 3573 13 Apr, 2010 [facility] [address] [id number] [place] [address]- 0833 13 Apr, 2010 [facility] [address] [id number] [place] [address] 2546 Apr, [facility] [address] [id number] [place] [address]- 4098 Apr, [facility] [address] [id number] [place] [address]- 2599 18 Mar, 2010 [facility] [address] [id number] [place] [address]- 2546 08 Mar, 2010 [facility] [address] [id number] [place] [address]- 9564 Feb, [facility] [address] [id number] [address]- 2546 Aug, [facility] [id number], [place] [address]- 2546 Jul, [facility] [id number], [place] [address]- 2546 Jun, [facility] [id number], [place] [address]- 2546 Apr, [facility] [id number], [place] [address]- 2546 Apr, [facility] [id number], [place] [address]- 2546 Mar, [facility] [id number], [place] [address]- 2546 Mar, [facility] [id number], [place] [address]- 2546 Feb, [facility] [address] [id number] [address]- 2546 Dec, [facility] [address] [id number] [address]- 2546 Oct, IMMUNIZATIONS No Known Immunizations SOCIAL HISTORY Never Assessed REASON FOR VISIT Med refill PLAN OF CARE VITAL SIGNS MEDICATIONS Medication Instructions Dosage Frequency Start Date End Date Duration Status Metoprolol Succinate ER 50 mg Orally Once a day 1 tablet 24h 90 days Active Pepcid 20 mg Orally 2 times a day 1 tablet at bedtime 12h 90 days Active RESULTS No Results PROCEDURES No Known procedures INSTRUCTIONS MEDICATIONS ADMINISTERED No Known Medications MEDICAL (GENERAL) HISTORY Type Description Date Medical History hypertension Medical History neuropathy Medical History depression Medical History anxiety Medical History Hyposmolality and/or hyponatremia Surgical History cleaned out left side of sinuses 2013 Surgical History colonscopy 09/03/15 Hospitalization History cellulitis 09/2013 Hospitalization History surgery 2013 Hospitalization History A Fib--[facility] 03/08/2016 Hospitalization History acute chest pain, hypertensive urgency, paroxsysmal htn-[facility] 05/10/16
--- OUTSIDE RECORDS SUMMARY | 2018-09-17 11:43 | XMS REPORT ---
Author Author JORDY DESIREE [facility] Address [address] [place] [address] Care Team Providers Care Broker [employer] Name Role Phone DESIREE SPENCE Unavailable PROBLEMS Type Condition ICD9-CM Code CMV36-RF Code Onset Dates Condition Status SNOMED Code Problem Vitamin D deficiency E55.9 Active 61004912 Problem Chronic frontal sinusitis J32.1 Active 04624343 Problem Hyponatremia E87.1 Active 88417431 Problem BMI 40.0-44.9, adult Z68.41 Active 104332834 Problem Seasonal allergies J30.2 Active 928484434 Problem Secondary pulmonary arterial hypertension I27.21 Active 56133899 Problem Other chronic gastritis without hemorrhage K29.50 Active 1529295 Problem Paroxysmal atrial fibrillation I48.0 Active 882484497 Problem Fasciculations of muscle R25.3 Active 82802227 Problem Depression, unspecified depression type F32.9 Active 69921672 Problem Mild intermittent asthma without complication J45.20 Active 571361940 Problem Chronic migraine G43.709 Active 36952537 Problem Primary insomnia F51.01 Active 354531412 Problem Generalized anxiety disorder F41.1 Active 348842773 Problem Elevated alkaline phosphatase level R74.8 Active 019546512 Problem Obstructive sleep apnea G47.33 Active 86437630 Problem Hidradenitis L73.2 Active 92740073 Problem Essential hypertension I10 Active 11760418 Problem Idiopathic peripheral neuropathy G60.9 Active 14851591 Problem Hyperlipidemia E78.5 Active 47034971 ALLERGIES No Information ENCOUNTERS Encounter Location Date Diagnosis [facility] [address], [place] [address] Jan, [facility] [address], [place] [address] Jan, Essential hypertension I10 [facility] [address], [place] [address] Dec, [place] [address], [place] [address] 4[address] Dec, [place] [id number] [place] [address] 89199- 3860 Dec, Essential hypertension I10 [place] [id number] [place] [address] 46282- 5868 Nov, Essential hypertension I10 [place] [address] [place] [id number] [place] [address] 51255- 2047 Nov, [place] [address] [id number] [place] [address] 24046- 3219 Nov, Essential hypertension I10 and BMI 40.0-44.9, adult Z68.41 [place] [id number] [place] [address] 77076- 6563 Oct, Essential hypertension I10 and Chronic kidney disease, unspecified CKD stage N18.9 [place] [id number] [place] [address] 58460- 3285 Oct, Essential hypertension I10 and Chronic kidney disease, unspecified CKD stage N18.9 [place] [address], [place] [address] 1779 Oct, [place] [address], [place] [address] 59[address] September, Medicare annual wellness visit, initial Z00.00 ; Mild intermittent asthma without complication J45.20 ; Generalized anxiety disorder F41.1 ; Depression, unspecified depression type F32.9 ; Paroxysmal atrial fibrillation I48.0 ; Obstructive sleep apnea G47.33 ; Hyponatremia E87.1 ; Need for hepatitis C screening test Z11.59 ; Encounter for immunization Z23 ; Secondary pulmonary arterial hypertension I27.21 and BMI 40.0-44.9, adult Z68.41 [place] [address], [place] [address] 30 Aug, 2017 Essential hypertension I10 [facility] [id number] [place] [address] 39529 -2826 Jun, Dysuria R30.0 ; UTI symptoms R39.9 and Candidiasis of breast B37.89 [facility] [id number] [place] [address] 25998- 5666 Jun, Hyponatremia E87.1 [facility] [address] [address]646- 6182 Jun, Hyponatremia E87.1 [facility] [address] 20087- 2175 Jun, Hyponatremia E87.1 [facility] [id number] [place] [address] 38538- 0199 Jun, [facility] [address] [address]- 4034 May, Hyponatremia E87.1 [facility] [id number] [place] [address] 27211- 9020 May, Hyponatremia E87.1 [facility] [id number] [place] [address] 05975- 6200 May, Hyponatremia E87.1 [facility] [address] 13857- 0673 May, Hyponatremia E87.1 [facility] [id number] [place] [address] 55844- 2563 Apr, Hyponatremia E87.1 ; Fasciculations of muscle R25.3 and Hyperlipidemia E78.5 [facility] [id number] [place] [address] 28293- 6943 Apr, Cough R05 ; Hyponatremia E87.1 ; Fasciculations of muscle R25.3 ; Primary insomnia F51.01 ; Essential hypertension I10 ; Hyperlipidemia E78.5 ; Screening for breast cancer Z12.31 and BMI 40.0-44.9, adult Z68.41 [facility] [place] [facility] [id number] [place] [address] 5033 18 Apr, 2017 Essential hypertension I10 [facility] [place] [facility] [id number] [address] 4819 14 Mar, 2017 [facility] [place] [facility] [id number] [place] [address] 7559 Mar, [facility] [address] [facility] [id number] [place] [address]- 0296 Mar, [facility] [place] [facility] [id number] [address]- 5692 Feb, [facility] [place] [facility] [id number] [place] [address]- 0969 Jan, [facility] [id number] [place] [address]- 9245 Dec, Essential hypertension I10 [facility] [address] [place] [address]- 2657 Dec, [facility] [address] [place] [address]- 7052 Dec, Essential hypertension I10 [facility] [address], [place] [address]- 1750 Nov, [facility] [address], [place] [address]- 4215 Oct, Essential hypertension I10 [facility] [id number], [place] [address]- 1523 Oct, Essential hypertension I10 [facility] [address] [place] [address]- 6594 Oct, [facility] [place] [facility] [id number], [place] [address]- 0275 September, [facility] [address], [place] [address]- 4204 September, Essential hypertension I10 [facility] [id number] [place] [address] 09239- 8678 September, [facility] [address] 34620- 7471 September, Essential hypertension I10 ; Hyperlipidemia E78.5 and Hyponatremia E87.1 [place] [address] 57568- 2944 September, Mild intermittent asthma without complication J45.20 ; Essential hypertension I10 ; Hyperlipidemia E78.5 ; Hyponatremia E87.1 and Dysuria R30.0 [place] [address] 22789- 9323 September, Other chronic gastritis without hemorrhage K29.50 ; Paroxysmal atrial fibrillation I48.0 and Essential hypertension I10 [place] [address] 41952- 7417 Aug, [facility] [id number] [place] [address] 45216- 5477 Jul, [facility] [address] 43846- 2941 14 Jun, 2016 [facility] [id number] [place] [address] 17956 -7671 07 Jun, 2016 Dysuria R30.0 and Acute cystitis with hematuria N30.01 [facility] [id number] [place] [address] 05953- 3248 Jun, Essential hypertension I10 [facility] [id number] [place] [address] 17191- 9568 May, Paroxysmal atrial fibrillation I48.0 [facility] [id number] [place] [address] 83632- 1961 May, Other chronic gastritis without hemorrhage K29.50 [facility] [address] 76238- 3750 17 May, 2016 [facility] [id number] [place] [address] 02709- 4840 May, Hyponatremia E87.1 ; Essential hypertension I10 and Other chronic gastritis without hemorrhage K29.50 [facility] [id number] [place] [address] 46726- 7010 May, Hyponatremia E87.1 [facility] [address] 69197- 9095 May, Hyponatremia E87.1 [facility] [address] [id number] May, [facility] [address] 38393- 6414 16 Apr, 2016 [facility] [id number] [place] [address] 93915- 8364 Apr, [facility] [address] 57549- 5683 Mar, Essential hypertension I10 and Candidal intertrigo B37.2 [place] [address] 57052- 4310 Mar, Hyponatremia E87.1 [facility] [id number] [place] [address] 00101- 2861 Mar, [facility] [id number] [place] [address] 43026- 6652 Mar, Hyponatremia E87.1 [facility] [id number] [place] [address] 27669- 5897 Mar, Essential hypertension I10 ; Hyponatremia E87.1 ; Slurred speech R47.81 ; Paroxysmal atrial fibrillation I48.0 and Elevated blood sugar R73.9 [facility] [id number] [place] [address] 94450- 3358 Mar, [facility] [address] [place] [address]- 8045 Mar, [facility] [id number] [place] [address] 86122- 3607 Feb, [facility] [id number] [place] [address] 57519- 5790 Jan, [facility] [id number] [place] [address] 10741- 4385 Dec, [facility] [id number] [place] [address] 88068 -9609 Nov, Scratched by cat, initial encounter W55.03XA and Other injury of unspecified body region T14.8 [facility] [id number] [place] [address] 57133- 5182 Nov, [facility] [id number] [place] [address] 60760- 3510 Oct, [facility] [id number] [place] [address] 56893- 4315 September, [facility] [id number] [place] [address] 06249- 0101 Aug, Elevated alkaline phosphatase level R74.8 [facility] [id number] [place] [address] 07053- 5444 Jul, [facility] [id number] [place] [address] 16601- 5042 Jun, Essential hypertension I10 and Bright red blood per rectum K62.5 [facility] [address] [place] [address] 11325- 8470 Jun, Elevated alkaline phosphatase level R74.8 [facility] [id number] [place] [address] 92616- 3462 Jun, [facility] [id number] [place] [address] 18434- 5555 May, Essential hypertension I10 ; Hyperlipidemia E78.5 and Well woman exam (no gynecological exam) Z00.00 [place] [id number] [place] [address] 83037- 3661 May, [place] [id number] [place] [address] 78201- 3810 May, [place] [id number] [place] [address] 91444- 7104 Mar, [place] [address] 26396- 5045 Mar, [place] [address] 16717- 5136 Mar, [place] [id number] [place] [address] 19299- 4558 Feb, Acute recurrent maxillary sinusitis J01.01 ; Asthma, unspecified, unspecified status 493.90 ; Seasonal allergies J30.2 and Cat allergies J30.81 [place] [id number] [place] [address] 49098- 0222 Feb, Upper respiratory tract infection, unspecified upper respiratory infection J06.9 [place] [address] [id number] [place] [address] 54636- 5264 Jan, [place] [id number] [place] [address] 71780- 0755 Jan, Dysphagia 787.20 and GERD (gastroesophageal reflux disease) 530.81 [place] [id number] [place] [address] 16172- 1093 Jan, Breast lesion 611.9 [place] [address] 37435- 5550 Dec, Breast lesion 611.9 [place] [id number] [place] [address] 07529- 8178 Dec, Breast lesion 611.9 [place] [address] 81328- 0906 Nov, Fatigue 780.79 and Hyperlipidemia 272.4 [facility] [address] [facility] [id number] [address]- 1486 Nov, Hypertension 401.9 ; Hyperlipidemia 272.4 ; Chronic frontal sinusitis 473.1 and Fatigue 780.79 [facility] [address] [facility] [id number], [place] [address]- 5376 Nov, [facility] [address] [facility] [id number], [place] [address]- 0925 Oct, [facility] [address] [facility] [id number], [place] [address]- 3286 Oct, [facility] [id number] [address]- 5436 September, [facility] [address], [place] [address]- 4111 September, [facility] [id number] [address]- 6674 September, [facility] [id number], [place] [address]- 1438 September, [facility] [id number]- 6836 Aug, [facility] [id number], [place] [address]- 8201 Aug, [facility] [address] [facility] [id number], [place] [address]- 8385 Aug, [facility] [id number], [place] [address]- 7304 Jul, [facility] [address] [facility] [id number], [place] [address]- 6635 Jul, [facility] [id number], [place] [address]- 2609 Jul, [facility] [address] [facility] [id number] [place] [address]- 4875 19 Jul, 2014 [facility] [place] [facility] [address] [id number] [place] [address]- 5977 18 Jul, 2014 [facility] [place] [facility] [address] [id number] [place] [address]- 5306 17 Jul, 2014 [facility] [place] [facility] [address] [id number] [place] [address]- 4190 17 Jul, 2014 [facility] [place] [facility] [address] [id number] [place] [address]- 3333 16 Jul, 2014 [facility] [place] [facility] [address] [id number] [place] [address]- 9163 16 Jul, 2014 [facility] [place] [facility] [address] [id number] [place] [address]- 1931 Jul, [facility] [place] [facility] [address] [id number] [place] [address]- 9972 Jul, [facility] [place] [facility] [address] [id number] [place] [address]- 1590 Jul, [facility] [place] [facility] [address] [id number] [place] [address]- 2778 Jul, [facility] [place] [facility] [address] [id number] [place] [address]- 6320 Jul, [facility] [place] [facility] [address] [id number] [place] [address]- 1706 Jul, 2014 [facility] [place] [facility] [address] [id number] [place] [address]- 4785 Jun, [facility] [place] [facility] [address] [id number] [place] [address]- 4865 Jun, 2014 [facility] [place] [facility] [address] [id number] [place] [address]- 2546 Jun, [facility] [place] [facility] [address] [id number] [place] [address]- 0146 Jun, [facility] [place] [facility] [address] [id number] [place] [address]- 5294 May, [facility] [place] [facility] [address] [id number] [place] [address]- 8282 May, [facility] [place] [facility] [address] [id number] [place] [address]- 9147 May, [facility] [place] [facility] [address] [id number] [place] [address]- 6327 May, [facility] [place] [facility] [address] [id number] [place] [address]- 2054 Apr, [facility] [place] [facility] [address] [id number] [place] [address]- 2889 Apr, [facility] [place] [facility] [address] [id number] [place] [address]- 7418 Apr, [facility] [place] [facility] [address] [id number] [place] [address]- 2165 Apr, [facility] [place] [facility] [address] [id number] [place] [address]- 9338 Apr, [facility] [place] [facility] [address] [id number] [place] [address]- 3517 Apr, [facility] [place] [facility] [address] [id number] [place] [address]- 9327 Mar, [facility] [place] [facility] [address] [id number], [place] [address]- 6256 Mar, [facility] [place] [facility] [address] [id number] [place] [address]- 0885 Mar, [facility] [place] [facility] [address] [id number] [place] [address]- 4597 Mar, [facility] [place] [facility] [address] [id number] [place] [address]- 6104 Mar, [facility] [place] [facility] [address] [id number] [place] [address]- 0484 Mar, [facility] [place] [facility] [address] [id number] [place] [address]- 6354 Mar, [facility] [place] [facility] [address] [id number] [place] [address]- 6542 Mar, [facility] [place] [facility] [address] [id number] [place] [address]- 6660 Mar, [facility] [place] [facility] [address] [id number] [place] [address]- 3364 Mar, [facility] [place] [facility] [address] [id number] [place] [address]- 2492 Mar, [facility] [place] [facility] [address] [id number] [place] [address]- 7442 Mar, [facility] [place] [facility] [address] [facility] [id number] [place] [address]- 2081 Mar, [facility] [place] [facility] [address] [id number] [place] [address]- 1682 Mar, [facility] [place] [facility] [address] [id number] [place] [address]- 3026 Mar, [facility] [place] [facility] [address] [facility] [id number] [place] [address]- 4060 Mar, [facility] [place] [facility] [address] [id number] [place] [address]- 3925 Mar, [facility] [place] [facility] [address] [id number], [place] [address]- 7699 Feb, [facility] [place] [facility] [address] [id number] [place] [address]- 2918 Feb, [facility] [place] [facility] [address] [facility] [id number] [place] [address]- 3976 Feb, [facility] [place] [facility] [address] [id number] [place] [address]- 4755 Feb, [facility] [place] [facility] [address] [id number] [place] [address]- 6972 Feb, [facility] [place] [facility] [address] [id number] [place] [address]- 8558 Feb, [facility] [place] [facility] [address] [id number] [place] [address]- 2167 Feb, [facility] [place] [facility] [address] [id number] [place] [address]- 6314 Feb, [facility] [place] [facility] [address] [id number] [place] [address]- 0475 Feb, [facility] [place] [facility] [address] [id number] [place] [address]- 8057 Feb, [facility] [place] [facility] [address] [id number] [place] [address]- 9902 Feb, [facility] [place] [facility] [address] [id number] [place] [address]- 0291 Feb, [facility] [place] [facility] [address] [id number] [place] [address]- 0006 Feb, [facility] [place] [facility] [address] [id number] [place] [address] Feb, [facility] [place] [facility] [address] [id number] [place] [address] Feb, [facility] [place] [facility] [address] [id number] [place] [address] Feb, [facility] [place] [facility] [address] [id number] [place] [address] Feb, [facility] [place] [facility] [address] [id number] [place] [address] Feb, [facility] [place] [facility] [address] [id number] [place] [address] Feb, [facility] [place] [facility] [address] [id number] [place] [address] 30 Jan, 2013 [facility] [place] [facility] [address] [id number] [place] [address] 30 Jan, 2013 [facility] [place] [facility] [address] [id number] [place] [address] 29 Jan, 2013 [facility] [place] [facility] [address] [id number] [place] [address]46 29 Jan, 2013 [facility] [place] [facility] [address] [id number] [place] [address] 254 24 Jan, 2013 [facility] [place] [facility] [address] [id number] [place] [address] 24 Jan, 2013 [facility] [place] [facility] [address] [id number] [place] [address] 10 Jan, 2013 [facility] [place] [facility] [address] [id number] [place] [address] 08 Jan, 2013 [facility] [place] [facility] [address] [id number] [place] [address] 08 Jan, 2014 [facility] [place] [facility] [address] [id number] [place] [address] Dec, [facility] [place] [facility] [address] [id number] [place] [address] Dec, [facility] [place] [facility] [address] [id number] [place] [address] Dec, [facility] [place] [facility] [address] [id number] [place] [address] Dec, [facility] [place] [facility] [address] [id number] [place] [address] Dec, [facility] [place] [facility] [address] [id number] [place] [address] Dec, [facility] [place] [facility] [address] [id number] [place] [address] Dec, [facility] [place] [facility] [address] [id number] [place] [address] Dec, [facility] [place] [facility] [address] [id number] [place] [address] Dec, [facility] [place] [facility] [address] [id number] [place] [address] Nov, [facility] [place] [facility] [address] [id number] [place] [address] Nov, [facility] [place] [facility] [address] [id number] [place] [address] Nov, [facility] [place] [facility] [address] [id number] [place] [address] Nov, [facility] [place] [facility] [address] [id number] [place] [address] Nov, [facility] [place] [facility] [address] [id number] [place] [address] Nov, [facility] [place] [facility] [address] [id number] [place] [address] Oct, [facility] [place] [facility] [address] [id number] [place] [address] Oct, [facility] [place] [facility] [address] [id number] [place] [address] Oct, [facility] [place] [facility] [address] [id number] [place] [address] Oct, [facility] [place] [facility] [address] [address] [id number] [place] [address] Oct, [facility] [place] [facility] [address] [id number] [place] [address] Oct, [facility] [place] [facility] [address] [id number] [place] [address] Oct, [facility] [place] [facility] [address] [id number] [place] [address] 75[address] Oct, [facility] [place] [facility] [address] [id number] [place] [address] Oct, [facility] [place] [facility] [address] [id number] [place] [address]245 Oct, [facility] [place] [facility] [address] [id number] [place] [address] Oct, [facility] [place] [facility] [address] [id number] [place] [address] Oct, [facility] [place] [facility] [address] [id number] [place] [address] 44[address] Oct, [facility] [place] [facility] [address] [id number] [place] [address] 8692 Oct, [facility] [place] [facility] [address] [id number] [place] [address]226 September, [facility] [place] [facility] [address] [id number] [place] [address] September, [facility] [place] [facility] [address] [id number] [place] [address] 99[address] September, [facility] [place] [facility] [address] [id number] [place] [address] 2995 September, [facility] [place] [facility] [address] [id number] [place] [address] 0170 September, [facility] [place] [facility] [address] [id number] [place] [address] 8798 September, [facility] [place] [facility] [address] [id number] [place] [address]- 6923 September, [facility] [place] [facility] [address] [id number] [place] [address]- 7928 September, [facility] [place] [facility] [address] [id number] [place] [address] 4840 September, [facility] [place] [facility] [address] [id number] [place] [address]- 4474 September, [facility] [address] [id number] [place] [address] 5568 September, [facility] [place] [facility] [address] [id number] [place] [address]- 8022 September, [facility] [place] [facility] [address] [id number] [place] [address]- 9020 September, [facility] [place] [facility] [address] [id number] [place] [address]- 7942 September, [facility] [place] [facility] [address] [id number] [place] [address]- 6618 September, [facility] [place] [facility] [address] [id number] [place] [address]- 5027 September, [facility] [address] [id number] [place] [address]- 9045 September, [facility] [place] [facility] [address] [id number] [place] [address]- 8691 September, [facility] [place] [facility] [address] [id number] [place] [address]- 0917 September, [facility] [place] [facility] [address] [id number] [place] [address] 2069 Aug, [facility] [place] [facility] [address] [id number] [place] [address] 1993 Aug, [facility] [place] [facility] [address] [id number] [place] [address] 8[address] Jul, [facility] [place] [facility] [address] [id number] [place] [address] 5660 Jul, [facility] [place] [facility] [address] [id number] [place] [address]- 7868 Jul, [facility] [place] [facility] [address] [id number] [place] [address]- 4367 Jul, [facility] [place] [facility] [address] [id number] [place] [address] 8967 27 Jul, 2013 [facility] [place] [facility] [address] [id number] [place] [address]- 0308 Jul, [facility] [place] [facility] [address] [id number] [place] [address] 3804 Jul, [facility] [place] [facility] [address] [id number] [place] [address] 1896 Jul, [facility] [place] [facility] [address] [id number] [place] [address]- 1662 Jul, [facility] [place] [facility] [address] [id number] [place] [address]- 5642 Jul, [facility] [place] [facility] [address] [id number] [place] [address]- 1359 Jul, [facility] [place] [facility] [address] [id number] [place] [address]- 5970 14 Jul, 2013 [facility] [place] [facility] [address] [id number] [place] [address]- [address] 07 Jul, 2013 [facility] [place] [facility] [address] [id number] [place] [address]- 5396 07 Jul, 2013 [facility] [place] [facility] [address] [id number] [place] [address]- 1319 10 Jun, 2013 [facility] [place] [facility] [address] [id number] [place] [address]- 3079 Jun, [facility] [place] [facility] [address] [id number] [place] [address]- 8079 10 Jun, 2013 [facility] [place] [facility] [address] [id number] [place] [address]- 6725 10 Jun, 2013 [facility] [place] [facility] [address] [id number] [place] [address]- 3130 May, [facility] [place] [facility] [address] [id number] [place] [address]- 2430 May, [facility] [place] [facility] [address] [id number] [place] [address]- 1908 May, [facility] [place] [facility] [address] [id number] [place] [address]- 8269 May, [facility] [place] [facility] [address] [id number] [place] [address]- 0567 May, [facility] [place] [facility] [address] [id number] [place] [address]- 1727 Mar, [facility] [place] [facility] [address] [id number] [place] [address]- 5706 Mar, [facility] [place] [facility] [address] [id number] [place] [address]- 8441 Mar, [facility] [place] [facility] [address] [id number] [place] [address]- 8403 Mar, [facility] [place] [facility] [address] [id number] [place] [address]- 3632 Mar, [facility] [place] [facility] [address] [id number] [place] [address]- 2501 Mar, [facility] [place] [facility] [address] [id number] [place] [address]- 4390 Feb, [facility] [place] [facility] [address] [id number] [place] [address]- 6530 Feb, [facility] [place] [facility] [address] [id number] [place] [address]- 7906 Feb, [facility] [place] [facility] [address] [id number] [place] [address]- 2481 Feb, [facility] [place] [facility] [address] [id number] [place] [address]- 2856 Feb, [facility] [place] [facility] [address] [id number] [place] [address]- 3690 Feb, [facility] [place] [facility] [address] [id number] [place] [address] 2542 Feb, [facility] [address] [id number] [place] [address]- 1352 Feb, [facility] [place] [facility] [address] [id number] [place] [address]- 2546 Feb, [facility] [address] [id number] [place] [address] 2544 Feb, [facility] [place] [facility] [address] [id number] [place] [address] 2548 Feb, [facility] [address] [id number] [place] [address]- 2962 Feb, [facility] [address] [id number] [place] [address]- 2878 Jan, [facility] [place] [facility] [address] [id number] [place] [address]- 1767 Jan, [facility] [address] [id number] [place] [address]- 5925 Dec, [facility] [place] [facility] [address] [id number] [place] [address]- 4722 Dec, [facility] [address] [id number] [place] [address]- 3560 Nov, [facility] [place] [facility] [address] [id number] [place] [address]- 2542 Nov, [facility] [place] [facility] [address] [id number] [place] [address]- 2547 Nov, [facility] [place] [facility] [address] [id number] [place] [address]- 2545 Nov, [facility] [place] [facility] [address] [id number] [place] [address]- 2546 Nov, [facility] [place] [facility] [address] [id number] [place] [address]- 1591 Oct, [facility] [address] [id number] [place] [address]- 8399 September, [facility] [place] [facility] [address] [id number] [place] [address]- 5940 Aug, [facility] [address] [id number] [place] [address]- 0177 Jul, [facility] [place] [facility] [address] [id number] [place] [address]- 1575 Jul, [facility] [address] [id number] [place] [address] Jul, [facility] [place] [facility] [address] [id number] [place] [address]- 7478 28 Jun, 2012 [facility] [place] [facility] [address] [id number] [place] [address]- 6888 14 Jun, 2012 [facility] [place] [facility] [address] [id number] [place] [address]- 3195 Jun, [facility] [place] [facility] [address] [id number] [place] [address]- 5628 Jun, [facility] [place] [facility] [address] [id number] [place] [address]- 7548 Jun, [facility] [address] [id number] [place] [address]- 5993 May, [facility] [place] [facility] [address] [id number], [place] [address]- 2222 May, [facility] [place] [facility] [address] [id number] [place] [address]- 0551 Apr, [facility] [place] [facility] [address] [id number] [place] [address]- 9866 Apr, [facility] [place] [facility] [address] [id number] [place] [address]- 8269 Mar, [facility] [place] [facility] [address] [id number] [place] [address]- 3408 Mar, [facility] [place] [facility] [address] [id number] [place] [address]- 9097 Mar, [facility] [place] [facility] [address] [id number] [place] [address]- 6056 Mar, [facility] [place] [facility] [address] [id number] [place] [address]- 0968 Mar, [facility] [place] [facility] [address] [id number] [place] [address]- 0671 Mar, [facility] [place] [facility] [address] [id number] [place] [address]- 5009 Mar, [facility] [place] [facility] [address] [id number] [place] [address]- 6618 Mar, [facility] [place] [facility] [address] [facility] [id number] [place] [address]- 7922 Mar, [facility] [place] [facility] [address] [id number] [place] [address]- 7676 Mar, [facility] [place] [facility] [address] [facility] [id number] [place] [address]- 3868 Feb, [facility] [place] [facility] [address] [facility] [id number] [place] [address]- 5949 31 Feb, 2012 [facility] [place] [facility] [address] [id number] [place] [address]- 9187 30 Feb, 2012 [facility] [place] [facility] [address] [facility] [id number] [place] [address]- 6932 30 Feb, 2012 [facility] [place] [facility] [address] [id number] [place] [address] Feb, [facility] [place] [facility] [address] [facility] [id number] [place] [address]- 8808 Feb, [facility] [place] [facility] [address] [id number] [place] [address]- 1793 Jan, [facility] [place] [facility] [address] [id number] [place] [address]- 7716 Jan, [facility] [address] [id number] [place] [address]- 7570 Dec, [facility] [address] [id number] [place] [address]- 0156 Dec, [facility] [address] [id number] [place] [address]- 8350 Dec, [facility] [address] [id number] [place] [address]- 6696 Nov, [facility] [address] [id number] [place] [address]- 9126 September, [facility] [address] [id number] [place] [address]- 2257 September, [facility] [address] [id number] [place] [address]- 1603 September, [facility] [address] [id number] [place] [address]- 6145 September, [facility] [address] [id number] [place] [address]- 0546 Aug, [facility] [address] [id number] [place] [address]- 0123 Aug, [facility] [place] [facility] [address] [id number] [place] [address]- 4543 Aug, [facility] [place] [facility] [address] [id number] [place] [address]- 5639 Aug, [facility] [place] [facility] [address] [id number] [place] [address]- 0429 Aug, [facility] [place] [facility] [address] [id number] [place] [address]- 4109 Jul, [facility] [place] [facility] [address] [id number] [place] [address]- 9707 05 Jul, 2011 [facility] [place] [facility] [address] [id number] [place] [address]- 7064 Jul, [facility] [place] [facility] [address] [id number] [place] [address]- 2706 29 Jun, 2011 [facility] [place] [facility] [address] [id number] [place] [address]- 3996 17 Jun, 2011 [facility] [place] [facility] [address] [id number] [place] [address]- 7895 13 Jun, 2011 [facility] [place] [facility] [address] [id number] [place] [address]- 4322 10 Jun, 2011 [facility] [place] [facility] [address] [id number] [place] [address]- 5436 07 Jun, 2011 [facility] [place] [facility] [address] [id number] [place] [address]- 4149 Jun, [facility] [place] [facility] [address] [id number] [place] [address]- 7497 Jun, [facility] [place] [facility] [address] [id number] [place] [address]- 8607 May, [facility] [place] [facility] [address] [id number] [place] [address]- 0068 May, [facility] [place] [facility] [address] [id number] [place] [address]- 0136 May, [facility] [place] [facility] [address] [id number] [place] [address]- 3114 May, [facility] [place] [facility] [address] [id number] [place] [address]- 1880 Apr, [facility] [place] [facility] [address] [id number] [place] [address]- 4626 Apr, [facility] [place] [facility] [address] [id number], [place] [address]- 6157 Mar, [facility] [place] [facility] [address] [id number] [place] [address]- 4839 Mar, [facility] [address] [id number] [place] [address]- 5980 Mar, [facility] [address] [id number] [place] [address]- 8756 Nov, [facility] [address] [id number] [place] [address]- 4892 13 May, 2010 [facility] [address] [id number] [place] [address]- 2596 Apr, [facility] [address] [id number] [place] [address]- 2510 Apr, [facility] [address] [id number] [place] [address]- 4153 Apr, [facility] [address] [id number] [place] [address]- 4593 Apr, [facility] [address] [id number] [place] [address]- 4313 Apr, [facility] [address] [id number] [place] [address]- 9317 Mar, [facility] [address] [id number] [place] [address]- 8424 Mar, [facility] [address] [id number] [place] [address]- 1058 Feb, [facility] [place] [facility] [address] [id number] [place] [address]- 3891 14 Aug, 2009 [facility] [place] [facility] [address] [id number] [place] [address]- 7411 Jul, [facility] [place] [facility] [address] [id number] [place] [address]- 6826 17 Jun, 2009 [facility] [place] [facility] [address] [id number], [place] [address]- 2546 Apr, [facility] [address] [facility] [id number], [place] [address]- 2546 Apr, [facility] [address] [id number], [place] [address]- 2546 Mar, [facility] [address] [id number], [place] [address]- 2546 Mar, [facility] [address] [id number], [place] [address]- 2546 Feb, [facility] [address] [facility] [id number], [place] [address] 2546 Dec, [facility] [address] [id number], [place] [address]- 2546 Oct, IMMUNIZATIONS No Known Immunizations SOCIAL HISTORY Never Assessed REASON FOR VISIT Med refill call/CCM note PLAN OF CARE VITAL SIGNS MEDICATIONS Unknown [...] Hospitalization History surgery 2013 Hospitalization History A Fib--[facility] 03/08/2016 Hospitalization History acute chest pain, hypertensive urgency, paroxsysmal htn-[facility] 05/10/16
--- OUTSIDE RECORDS SUMMARY | 2018-09-17 11:43 | XMS REPORT ---
Author Author JORDY DESIREE [facility] Address [address] [place] [address] Care Team Providers Care Sheriffs Officer Name Role Phone SANTIAGO SPENCEY Unavailable PROBLEMS Type Condition ICD9-CM Code UDN29-YZ Code Onset Dates Condition Status SNOMED Code Problem Vitamin D deficiency E55.9 Active 25074900 Problem Chronic frontal sinusitis J32.1 Active 55559926 Problem Hyponatremia E87.1 Active 67701129 Problem BMI 40.0-44.9, adult Z68.41 Active 860599374 Problem Seasonal allergies J30.2 Active 940491255 Problem Secondary pulmonary arterial hypertension I27.21 Active 16744656 Problem Other chronic gastritis without hemorrhage K29.50 Active 8262152 Problem Paroxysmal atrial fibrillation I48.0 Active 184116290 Problem Fasciculations of muscle R25.3 Active 19013950 Problem Depression, unspecified depression type F32.9 Active 62189723 Problem Mild intermittent asthma without complication J45.20 Active 825328700 Problem Chronic migraine G43.709 Active 44720208 Problem Primary insomnia F51.01 Active 686191981 Problem Generalized anxiety disorder F41.1 Active 403120755 Problem Elevated alkaline phosphatase level R74.8 Active 754201600 Problem Obstructive sleep apnea G47.33 Active 52665615 Problem Hidradenitis L73.2 Active 40376268 Problem Essential hypertension I10 Active 73641335 Problem Idiopathic peripheral neuropathy G60.9 Active 42250956 Problem Hyperlipidemia E78.5 Active 71168037 ALLERGIES No Information ENCOUNTERS Encounter Location Date Diagnosis [facility] [address] [facility] [id number] [address] Jan, Screening for cervical cancer Z12.4 ; BMI 40.0-44.9, adult Z68.41 ; Screening for breast cancer Z12.31 ; Candidal intertrigo B37.2 and Elevated glucose level R73.09 [facility] [address], [place] [address] Jan, Essential hypertension I10 [facility] [address], [place] [address] Dec, [facility] [address], [place] [address] Dec, [place] [address], [place] [address] 6[address] Dec, Essential hypertension I10 [place] [address], [place] [address] 8614 Nov, Essential hypertension I10 [place] [address], [place] [address] 4[address] Nov, [place] [address], [place] [address] 4538 Nov, Essential hypertension I10 and BMI 40.0-44.9, adult Z68.41 [place] [address], [place] [address] Oct, Essential hypertension I10 and Chronic kidney disease, unspecified CKD stage N18.9 [place] [address], [place] [address] 4[address] Oct, Essential hypertension I10 and Chronic kidney disease, unspecified CKD stage N18.9 [place] [address], [place] [address] Oct, [place] [address], [place] [address] September, Medicare annual wellness visit, initial Z00.00 ; Mild intermittent asthma without complication J45.20 ; Generalized anxiety disorder F41.1 ; Depression, unspecified depression type F32.9 ; Paroxysmal atrial fibrillation I48.0 ; Obstructive sleep apnea G47.33 ; Hyponatremia E87.1 ; Need for hepatitis C screening test Z11.59 ; Encounter for immunization Z23 ; Secondary pulmonary arterial hypertension I27.21 and BMI 40.0-44.9, adult Z68.41 [facility] [id number] [place] [address] 6[address]80- 0067 Aug, Essential hypertension I10 [facility] [id number] [place] [address]15 -1679 Jun, Dysuria R30.0 ; UTI symptoms R39.9 and Candidiasis of breast B37.89 [facility] [address] [address]- [address] Jun, Hyponatremia E87.1 [facility] [address] [address]- 0442 Jun, Hyponatremia E87.1 [place] [address] 72563- 8817 Jun, Hyponatremia E87.1 [facility] [address] 86234- 9245 Jun, [facility] [address] 00223- 4457 May, Hyponatremia E87.1 [facility] [address] 69417- 0402 May, Hyponatremia E87.1 [facility] [address] 93568- 0622 May, Hyponatremia E87.1 [facility] [address] 45789- 6335 May, Hyponatremia E87.1 [facility] [address] 87729- 9959 Apr, Hyponatremia E87.1 ; Fasciculations of muscle R25.3 and Hyperlipidemia E78.5 [facility] [address] 03677- 9141 Apr, Cough R05 ; Hyponatremia E87.1 ; Fasciculations of muscle R25.3 ; Primary insomnia F51.01 ; Essential hypertension I10 ; Hyperlipidemia E78.5 ; Screening for breast cancer Z12.31 and BMI 40.0-44.9, adult Z68.41 [facility] [id number], [place] [address] 6287 18 Apr, 2017 Essential hypertension I10 [facility] [id number] [place] [address] 36516- 2208 14 Mar, 2017 [facility] [id number] [place] [address] 10877- 4467 Mar, [facility] [id number] [place] [address] 59336- 9471 Mar, [facility] [id number] [place] [address] 87420- 3475 Feb, [facility] [id number] [place] [address] 34547- 9477 Jan, [facility] [id number] [place] [address] 29192- 9320 Dec, Essential hypertension I10 [facility] [id number] [place] [address] 26280- 4999 Dec, [facility] [id number] [place] [address] 41257- 9503 Dec, Essential hypertension I10 [facility] [id number] [place] [address] 94110- 7202 Nov, [facility] [id number] [place] [address] 47608- 7932 Oct, Essential hypertension I10 [facility] [id number] [place] [address] 66454- 0493 Oct, Essential hypertension I10 [facility] [id number] [place] [address] 39822- 2168 Oct, [facility] [id number] [place] [address] 70455- 4025 September, [facility] [address] 72715- 9937 September, Essential hypertension I10 [facility] [id number] [place] [address] 17148- 5866 September, [facility] [address] 23579- 5458 September, Essential hypertension I10 ; Hyperlipidemia E78.5 and Hyponatremia E87.1 [facility] [address] 80135- 6591 September, Mild intermittent asthma without complication J45.20 ; Essential hypertension I10 ; Hyperlipidemia E78.5 ; Hyponatremia E87.1 and Dysuria R30.0 [place] [address] 27489- 9870 September, Other chronic gastritis without hemorrhage K29.50 ; Paroxysmal atrial fibrillation I48.0 and Essential hypertension I10 [facility] [id number] [place] [address] 22032- 8270 Aug, [facility] [id number] [place] [address] 58582- 5342 Jul, [facility] [id number] [place] [address] 84097- 9280 14 Jun, 2016 [facility] [id number] [place] [address] 64076 -6812 07 Jun, 2016 Dysuria R30.0 and Acute cystitis with hematuria N30.01 [facility] [id number] [place] [address] 64766- 4879 Jun, Essential hypertension I10 [facility] [id number] [place] [address] 12182- 1510 May, Paroxysmal atrial fibrillation I48.0 [facility] [address] [place] [address]- 8940 May, Other chronic gastritis without hemorrhage K29.50 [facility] [address] 59303- 4488 17 May, 2016 [facility] [id number] [place] [address] 97353- 9014 May, Hyponatremia E87.1 ; Essential hypertension I10 and Other chronic gastritis without hemorrhage K29.50 [facility] [address] 18430- 0595 10 May, 2016 Hyponatremia E87.1 [facility] [address] 99454- 5932 May, Hyponatremia E87.1 [facility] [address] [id number] May, 2016 [facility] [address] 41205- 0050 16 Apr, 2016 [facility] [id number] [place] [address] 75480- 7266 Apr, [facility] [address] 76645- 9148 29 Mar, 2016 Essential hypertension I10 and Candidal intertrigo B37.2 [facility] [id number] [place] [address] 25162- 6890 Mar, Hyponatremia E87.1 [facility] [id number] [place] [address] 07965- 4219 14 Mar, 2016 [facility] [id number] [place] [address] 95689- 5655 10 Mar, 2016 Hyponatremia E87.1 [facility] [id number] [place] [address] 46924- 6080 09 Mar, 2016 Essential hypertension I10 ; Hyponatremia E87.1 ; Slurred speech R47.81 ; Paroxysmal atrial fibrillation I48.0 and Elevated blood sugar R73.9 [facility] [address], [place] [address]- 0052 Mar, [facility] [id number] [place] [address] 86595- 0265 Mar, [facility] [id number] [place] [address] 97620- 0600 Feb, [facility] [id number] [place] [address] 88268- 1973 Jan, [facility] [id number] [place] [address] 62610- 2315 Dec, [facility] [id number] [place] [address] 26112 -5315 Nov, Scratched by cat, initial encounter W55.03XA and Other injury of unspecified body region T14.8 [facility] [id number] [place] [address] 10874- 3775 Nov, [facility] [id number] [place] [address] 65597- 0446 Oct, [facility] [id number] [place] [address] 52557- 8833 September, [facility] [id number] [place] [address] 46717- 4352 Aug, Elevated alkaline phosphatase level R74.8 [facility] [id number] [place] [address] 40397- 8194 Jul, [facility] [id number] [place] [address] 76932- 8637 Jun, Essential hypertension I10 and Bright red blood per rectum K62.5 [facility] [address], [place] [address]- 7889 11 Jun, 2015 Elevated alkaline phosphatase level R74.8 [facility] [id number] [place] [address] 35935- 4375 Jun, [facility] [id number] [place] [address] 12602- 3973 May, Essential hypertension I10 ; Hyperlipidemia E78.5 and Well woman exam (no gynecological exam) Z00.00 [place] [id number] [place] [address] 53530- 9531 May, [place] [address] 28375- 5837 May, [place] [address] 87461- 1490 Mar, [place] [address] 69486- 1498 Mar, [place] [address] 16339- 9475 Mar, [place] [address] 83560- 5733 Feb, Acute recurrent maxillary sinusitis J01.01 ; Asthma, unspecified, unspecified status 493.90 ; Seasonal allergies J30.2 and Cat allergies J30.81 [place] [address] [id number] [place] [address] 60923- 5420 Feb, Upper respiratory tract infection, unspecified upper respiratory infection J06.9 [place] [address] [id number] [place] [address] 28648- 5552 Jan, [place] [address] [place] [id number] [place] [address] 70753- 3912 Jan, Dysphagia 787.20 and GERD (gastroesophageal reflux disease) 530.81 [place] [address] 73967- 8216 Jan, Breast lesion 611.9 [place] [address] [id number] [place] [address] 27454- 4533 Dec, Breast lesion 611.9 [place] [address], [place] [address]- 8051 Dec, Breast lesion 611.9 [facility] [id number] [place] [address], [place] [address]- 2127 Nov, Fatigue 780.79 and Hyperlipidemia 272.4 [facility] [id number], [place] [address]- 6616 Nov, Hypertension 401.9 ; Hyperlipidemia 272.4 ; Chronic frontal sinusitis 473.1 and Fatigue 780.79 [facility] [address] [facility] [id number] [place] [address]- 4948 Nov, [facility] [id number] [place] [address], [place] [address]- 6438 Oct, [facility] [id number] [place] [address]- 9778 Oct, [facility] [id number] [address]- 1858 September, [facility] [id number] [place] [address]- 0308 September, [facility] [address], [place] [address]- 4636 September, [facility] [address], [place] [address]- 4156 September, [facility] [address], [place] [address]- 3455 Aug, [facility] [id number], [place] [address]- 5791 Aug, [facility] [address], [place] [address]- 3546 Aug, [facility] [address] [facility] [id number], [place] [address]- 1096 Jul, [facility] [address], [place] [address]- 2314 20 Jul, 2014 [facility] [place] [facility] [address] [id number] [place] [address]- 1511 Jul, [facility] [place] [facility] [address] [id number] [place] [address]- 4298 Jul, [facility] [place] [facility] [address] [id number] [place] [address]- 3432 18 Jul, 2014 [facility] [place] [facility] [address] [id number] [place] [address]- 6452 Jul, [facility] [place] [facility] [address] [id number] [place] [address]- 1297 Jul, [facility] [place] [facility] [address] [id number] [place] [address]- 8653 Jul, [facility] [place] [facility] [address] [id number] [place] [address]- 9936 Jul, [facility] [place] [facility] [address] [id number] [place] [address]- 8440 Jul, [facility] [place] [facility] [address] [id number] [place] [address]- 8468 Jul, [facility] [place] [facility] [address] [id number] [place] [address]- 8918 Jul, [facility] [place] [facility] [address] [id number] [place] [address]- 7104 Jul, [facility] [place] [facility] [address] [id number] [place] [address]- 7552 Jul, [facility] [place] [facility] [address] [id number] [place] [address]- 8533 Jul, [facility] [place] [facility] [address] [id number] [place] [address]- 3233 Jun, [facility] [place] [facility] [address] [id number] [place] [address]- 2445 Jun, [facility] [place] [facility] [address] [id number] [place] [address] 2546 09 Jun, 2014 [facility] [address] [id number] [place] [address]- 1077 Jun, [facility] [place] [facility] [address] [id number] [place] [address]- 6996 May, [facility] [place] [facility] [address] [id number] [place] [address]- 9320 May, [facility] [place] [facility] [address] [id number] [place] [address]- 2684 May, [facility] [address] [id number] [place] [address]- 9904 May, [facility] [address] [id number] [place] [address]- 2865 Apr, [facility] [place] [facility] [address] [id number] [place] [address]- 2714 Apr, [facility] [address] [id number] [place] [address]- 8976 Apr, [facility] [place] [facility] [address] [id number] [place] [address]- 5333 Apr, [facility] [address] [facility] [id number] [place] [address]- 1712 Apr, [facility] [place] [facility] [address] [id number] [place] [address]- 6930 Apr, [facility] [place] [facility] [address] [id number] [place] [address]- 0730 Mar, [facility] [place] [facility] [address] [id number] [place] [address]- 4893 Mar, [facility] [place] [facility] [address] [id number] [place] [address]- 2596 Mar, [facility] [place] [facility] [address] [id number] [place] [address]- 7450 Mar, [facility] [place] [facility] [address] [id number] [place] [address]- 6020 Mar, [facility] [place] [facility] [address] [id number] [place] [address]- 4886 Mar, [facility] [place] [facility] [address] [id number] [place] [address]- 3768 Mar, [facility] [place] [facility] [address] [id number] [place] [address]- 5446 Mar, [facility] [place] [facility] [address] [id number] [place] [address]- 7020 Mar, [facility] [place] [facility] [address] [id number] [place] [address]- 4612 Mar, [facility] [place] [facility] [address] [id number] [place] [address]- 0333 Mar, [facility] [place] [facility] [address] [id number], [place] [address]- 7960 Mar, [facility] [place] [facility] [address] [id number] [place] [address]- 7253 Mar, [facility] [place] [facility] [address] [id number], [place] [address]- 5919 Mar, [facility] [place] [facility] [address] [id number], [place] [address]- 3555 Mar, [facility] [place] [facility] [address] [id number], [place] [address]- 4152 Mar, [facility] [place] [facility] [address] [id number] [place] [address]- 7908 Mar, [facility] [place] [facility] [address] [id number], [place] [address]- 4757 Feb, [facility] [place] [facility] [address] [id number] [place] [address]- 6488 Feb, [facility] [place] [facility] [address] [id number] [place] [address]- 0084 30 Feb, 2013 [facility] [place] [facility] [address] [id number] [place] [address]- 3084 30 Feb, 2013 [facility] [place] [facility] [address] [id number] [place] [address]- 2397 29 Feb, 2013 [facility] [place] [facility] [address] [id number] [place] [address]- 3337 29 Feb, 2013 [facility] [place] [facility] [address] [id number] [place] [address]- 9063 Feb, [facility] [place] [facility] [address] [id number] [place] [address]- 4837 Feb, [facility] [place] [facility] [address] [id number] [place] [address]- 2282 Feb, [facility] [place] [facility] [address] [id number] [place] [address]- 1171 Feb, [facility] [place] [facility] [address] [id number] [place] [address]- 4848 Feb, [facility] [place] [facility] [address] [id number] [place] [address]- 5333 16 Feb, 2014 [facility] [place] [facility] [address] [facility] [id number] [place] [address]- 2089 Feb, [facility] [place] [facility] [address] [id number] [place] [address]- 7976 15 Feb, 2014 [facility] [place] [facility] [address] [id number], [place] [address]- 3998 Feb, [facility] [place] [facility] [address] [id number] [place] [address]- 4744 Feb, [facility] [place] [facility] [address] [id number] [place] [address]- 7502 Feb, [facility] [place] [facility] [address] [id number] [place] [address]- 9598 Feb2013 [facility] [place] [facility] [address] [id number] [place] [address]- 2162 Feb, [facility] [place] [facility] [address] [id number] [place] [address]- 4626 30 Jan, 2013 [facility] [place] [facility] [address] [id number] [place] [address] 2546 30 Jan, 2013 [facility] [place] [facility] [address] [id number] [place] [address] 2542 29 Jan, 2013 [facility] [place] [facility] [address] [id number] [place] [address] 2549 29 Jan, 2013 [facility] [place] [facility] [address] [id number] [place] [address]- 0590 24 Jan, 2013 [facility] [place] [facility] [address] [id number] [place] [address]- 2830 Jan, 2013 [facility] [place] [facility] [address] [id number] [place] [address]- 9334 Jan, [facility] [place] [facility] [address] [id number] [place] [address]- 1411 Jan, [facility] [place] [facility] [address] [id number] [place] [address]- 3790 Jan, [facility] [place] [facility] [address] [id number] [place] [address]- 5419 Dec, [facility] [place] [facility] [address] [id number] [place] [address]- 3867 Dec, [facility] [place] [facility] [address] [id number] [place] [address]- 0307 Dec, [facility] [place] [facility] [address] [id number] [place] [address]- 6873 Dec, [facility] [place] [facility] [address] [id number] [place] [address] Dec, [facility] [place] [facility] [address] [id number] [place] [address] Dec, [facility] [place] [facility] [address] [id number] [place] [address] Dec, [facility] [place] [facility] [address] [id number] [place] [address] Dec, [facility] [place] [facility] [address] [id number] [place] [address] Dec, [facility] [place] [facility] [address] [id number] [place] [address] Nov, [facility] [place] [facility] [address] [id number] [place] [address] Nov, [facility] [place] [facility] [address] [id number] [place] [address] Nov, [facility] [place] [facility] [address] [id number] [place] [address] Nov, [facility] [place] [facility] [address] [id number] [place] [address] Nov, [facility] [place] [facility] [address] [id number] [place] [address] Nov, [facility] [place] [facility] [address] [id number] [place] [address] Oct, [facility] [place] [facility] [address] [id number] [place] [address] Oct, [facility] [place] [facility] [address] [id number] [place] [address] Oct, [facility] [place] [facility] [address] [id number] [place] [address] Oct, [facility] [place] [facility] [address] [id number] [place] [address] Oct, [facility] [place] [facility] [address] [id number] [place] [address] Oct, [facility] [place] [facility] [address] [id number] [place] [address] Oct, [facility] [place] [facility] [address] [id number] [place] [address]- [address] Oct, [facility] [place] [facility] [address] [id number] [place] [address] Oct, [facility] [place] [facility] [address] [id number] [place] [address] Oct, [facility] [place] [facility] [address] [id number] [place] [address]- [address] Oct, [facility] [place] [facility] [address] [id number] [place] [address] Oct, [facility] [place] [facility] [address] [id number] [place] [address] Oct, [facility] [place] [facility] [address] [id number] [place] [address] Oct, [facility] [place] [facility] [address] [id number] [place] [address] September, [facility] [place] [facility] [address] [id number] [place] [address] September, [facility] [place] [facility] [address] [id number] [place] [address] September, [facility] [place] [facility] [address] [id number] [place] [address] September, [facility] [place] [facility] [address] [id number] [place] [address] September, [facility] [place] [facility] [address] [id number] [place] [address] September, [facility] [place] [facility] [address] [id number] [place] [address] September, [facility] [place] [facility] [address] [id number] [place] [address] September, [facility] [address] [id number] [place] [address] September, [facility] [place] [facility] [address] [address] [id number] [place] [address] September, [facility] [place] [facility] [address] [id number] [place] [address] September, [facility] [place] [facility] [address] [id number] [place] [address] September, [facility] [place] [facility] [address] [id number] [place] [address] September, [facility] [place] [facility] [address] [id number] [place] [address] 6084 September, [facility] [place] [facility] [address] [id number] [place] [address] September, [facility] [place] [facility] [address] [id number] [place] [address] September, [facility] [place] [facility] [address] [id number] [place] [address] September, [facility] [place] [facility] [address] [id number] [place] [address] September, [facility] [place] [facility] [address] [id number] [place] [address] September, [facility] [place] [facility] [address] [id number] [place] [address] 8796 Aug, [facility] [place] [facility] [address] [id number] [place] [address]- 6[address] Aug, [facility] [place] [facility] [address] [id number] [place] [address]- 6242 Jul, [facility] [place] [facility] [address] [id number] [place] [address] 1628 Jul, [facility] [place] [facility] [address] [id number] [place] [address]- 3047 Jul, [facility] [place] [facility] [address] [id number] [place] [address]- 2274 Jul, [facility] [place] [facility] [address] [id number] [place] [address]- 9113 Jul, [facility] [place] [facility] [address] [id number] [place] [address]- 7694 Jul, [facility] [place] [facility] [address] [id number] [place] [address]- 5995 Jul, [facility] [place] [facility] [address] [id number] [place] [address]- 1440 Jul, [facility] [place] [facility] [address] [id number] [place] [address]- 4937 Jul, [facility] [place] [facility] [address] [id number] [place] [address]- 4741 Jul, [facility] [place] [facility] [address] [id number] [place] [address]- 1243 Jul, [facility] [place] [facility] [address] [id number] [place] [address]- 5587 14 Jul, 2013 [facility] [place] [facility] [address] [id number] [place] [address]- 0860 Jul, [facility] [place] [facility] [address] [id number] [place] [address]- 0947 07 Jul, 2013 [facility] [place] [facility] [address] [id number] [place] [address]- 4109 10 Jun, 2013 [facility] [place] [facility] [address] [id number] [place] [address]- 4239 10 Jun, 2013 [facility] [place] [facility] [address] [id number] [place] [address]- 9890 10 Jun, 2013 [facility] [place] [facility] [address] [id number] [place] [address]- 5444 10 Jun, 2013 [facility] [place] [facility] [address] [id number] [place] [address]- 3176 May, [facility] [place] [facility] [address] [id number] [place] [address]- 9080 May, [facility] [place] [facility] [address] [id number] [place] [address]- 0401 May, [facility] [place] [facility] [address] [id number] [place] [address]- 4791 May, [facility] [place] [facility] [address] [id number] [place] [address] 1946 May, [facility] [place] [facility] [address] [id number] [place] [address]- 8149 Mar, [facility] [place] [facility] [address] [id number] [place] [address]- 5405 Mar, [facility] [place] [facility] [address] [id number] [place] [address]- 7655 Mar, [facility] [place] [facility] [address] [id number] [place] [address]- 6682 Mar, [facility] [place] [facility] [address] [id number] [place] [address]- 2759 Mar, [facility] [place] [facility] [address] [id number] [place] [address]- 6848 Mar, [facility] [place] [facility] [address] [id number] [place] [address]- 2275 Feb, [facility] [place] [facility] [address] [id number] [place] [address]- 5922 Feb, [facility] [place] [facility] [address] [id number] [place] [address]- 0754 Feb, [facility] [place] [facility] [address] [id number] [place] [address]- 1610 Feb, [facility] [place] [facility] [address] [id number] [place] [address]- 1424 Feb, [facility] [place] [facility] [address] [id number] [place] [address]- 6453 Feb, [facility] [place] [facility] [address] [id number] [place] [address]- 1043 Feb, [facility] [place] [facility] [address] [id number] [place] [address] 2542 Feb, [facility] [place] [facility] [address] [id number] [place] [address]- 0606 Feb, [facility] [place] [facility] [address] [id number] [place] [address]- 7459 Feb, [facility] [place] [facility] [address] [id number] [place] [address]- 3742 Feb, [facility] [place] [facility] [address] [id number] [place] [address]- 2705 Feb, [facility] [place] [facility] [address] [id number] [place] [address]- 6117 Jan, [facility] [place] [facility] [address] [id number] [place] [address]- 9880 Jan, [facility] [place] [facility] [address] [id number] [place] [address]- 3258 Dec, [facility] [place] [facility] [address] [id number] [place] [address]- 8629 Dec, [facility] [place] [facility] [address] [id number], [place] [address] 2540 Nov, [facility] [place] [facility] [address] [id number] [place] [address]- 4818 Nov, [facility] [place] [facility] [address] [id number] [place] [address]- 2836 Nov, [facility] [place] [facility] [address] [id number] [place] [address]- 2547 Nov, [facility] [place] [facility] [address] [id number] [place] [address]- 2546 Nov, [facility] [address] [id number] [place] [address]- 5528 Oct, [facility] [address] [id number] [place] [address]- 2546 September, [facility] [address] [id number] [place] [address]- 4606 Aug, [facility] [address] [id number] [place] [address] 2546 Jul, [facility] [address] [id number] [place] [address]- 3976 Jul, [facility] [address] [id number] [place] [address]- 2546 Jul, [facility] [address] [facility] [id number] [place] [address]- 1334 Jun, [facility] [address] [id number] [place] [address]- 9353 Jun, [facility] [address] [id number] [place] [address]- 4016 Jun, [facility] [address] [facility] [id number] [place] [address]- 0976 Jun, [facility] [address] [facility] [id number] [place] [address]- 2546 Jun, [facility] [address] [id number] [place] [address]- 2546 May, [facility] [place] [facility] [address] [id number] [place] [address]- 5026 May, [facility] [place] [facility] [address] [facility] [id number] [place] [address]- 2546 Apr, [facility] [address] [facility] [id number] [place] [address]- 3834 Apr, [facility] [place] [facility] [address] [id number] [place] [address]- 9786 Mar, [facility] [place] [facility] [address] [id number] [place] [address]- 8667 Mar, [facility] [place] [facility] [address] [id number] [place] [address]- 4530 Mar, [facility] [place] [facility] [address] [id number] [place] [address]- 2339 Mar, [facility] [place] [facility] [address] [id number] [place] [address]- 1484 Mar, [facility] [place] [facility] [address] [id number] [place] [address]- 4753 Mar, [facility] [place] [facility] [address] [facility] [id number] [place] [address]- 7474 Mar, [facility] [place] [facility] [address] [id number], [place] [address]- 7241 Mar, [facility] [place] [facility] [address] [id number] [place] [address]- 7509 Mar, [facility] [place] [facility] [address] [facility] [id number], [place] [address]- 2512 Mar, [facility] [place] [facility] [address] [id number], [place] [address]- 1190 Feb, [facility] [place] [facility] [address] [id number], [place] [address]- 6532 31 Feb, 2012 [facility] [place] [facility] [address] [id number] [place] [address]- 6416 Feb, [facility] [place] [facility] [address] [id number], [place] [address]- 7612 30 Feb, 2012 [facility] [place] [facility] [address] [facility] [id number], [place] [address]- 2815 16 Feb, 2012 [facility] [place] [facility] [address] [id number] [place] [address]- 1953 Feb, [facility] [address] [id number] [place] [address]- 3543 Jan, [facility] [place] [facility] [address] [id number] [place] [address]- 7986 Jan, [facility] [place] [facility] [address] [id number] [place] [address]- 6046 Dec, [facility] [place] [facility] [address] [id number] [place] [address]- 4154 Dec, [facility] [place] [facility] [address] [id number] [place] [address]- 3780 Dec, [facility] [place] [facility] [address] [id number] [place] [address]- 3434 Nov, [facility] [address] [id number] [place] [address]- 5050 September, [facility] [address] [id number] [place] [address]- 1445 September, [facility] [place] [facility] [address] [id number] [place] [address]- 9723 September, [facility] [address] [id number] [place] [address]- 9807 September, [facility] [place] [facility] [address] [id number] [place] [address]- 4157 Aug, [facility] [place] [facility] [address] [id number] [place] [address]- 4662 Aug, [facility] [place] [facility] [address] [id number] [place] [address]- 6281 Aug, [facility] [place] [facility] [address] [id number] [place] [address]- 8476 Aug, [facility] [place] [facility] [address] [id number] [place] [address]- 0555 Aug, [facility] [place] [facility] [address] [id number] [place] [address]- 3746 Jul, [facility] [place] [facility] [address] [id number] [place] [address]- 6560 05 Jul, 2011 [facility] [place] [facility] [address] [id number] [place] [address]- 6389 Jul, [facility] [place] [facility] [address] [id number] [place] [address]- 6645 29 Jun, 2011 [facility] [place] [facility] [address] [id number] [place] [address]- 5615 17 Jun, 2011 [facility] [place] [facility] [address] [id number] [place] [address]- 7498 13 Jun, 2011 [facility] [place] [facility] [address] [id number] [place] [address]- 8753 Jun, [facility] [place] [facility] [address] [id number] [place] [address]- 9913 07 Jun, 2011 [facility] [place] [facility] [address] [id number] [place] [address]- 5484 Jun, [facility] [place] [facility] [address] [id number] [place] [address]- 8496 Jun, [facility] [place] [facility] [address] [id number] [place] [address]- 9157 May, [facility] [place] [facility] [address] [id number] [place] [address]- 8575 May, [facility] [place] [facility] [address] [id number] [place] [address]- 3774 May, [facility] [place] [facility] [address] [id number] [place] [address]- 4509 May, [facility] [place] [facility] [address] [id number] [place] [address]- 5883 Apr, [facility] [place] [facility] [address] [id number] [place] [address]- 7806 13 Apr, 2011 [facility] [address] [id number] [place] [address]- 6529 04 Mar, 2011 [facility] [place] [facility] [address] [id number] [place] [address]- 0956 03 Mar, 2011 [facility] [address] [id number] [place] [address]- 9406 Mar, [facility] [place] [facility] [address] [id number] [place] [address]- 8610 11 Nov, 2010 [facility] [address] [id number] [place] [address]- 6621 13 May, 2010 [facility] [place] [facility] [address] [id number] [place] [address]- 4404 23 Apr, 2010 [facility] [address] [id number] [place] [address]- 7866 13 Apr, 2010 [facility] [place] [facility] [address] [id number] [place] [address]- 7561 13 Apr, 2010 [facility] [place] [facility] [address] [id number] [place] [address]- 3975 Apr, [facility] [place] [facility] [address] [facility] [id number] [place] [address]- 2019 Apr, [facility] [place] [facility] [address] [id number] [place] [address]- 1107 18 Mar, 2010 [facility] [place] [facility] [address] [id number] [place] [address] 2548 08 Mar, 2010 [facility] [place] [facility] [address] [id number] [place] [address]- 4507 20 Feb, 2010 [facility] [place] [facility] [address] [id number] [place] [address]- 8153 14 Aug, 2009 [facility] [place] [facility] [address] [id number] [place] [address]- 5753 10 Jul, 2009 [facility] [place] [facility] [address] [id number], [place] [address]- [address]46 Jun, [facility] [id number], [place] [address]- 2546 Apr, [facility] [id number], [place] [address]- 2546 Apr, [facility] [id number], [place] [address]- 2546 Mar, [facility] [id number], [place] [address]- 2546 Mar, [facility] [id number], [place] [address]- 2546 Feb, [facility] [id number], [place] [address]- 2546 Dec, [facility] [id number], [place] [address]- 2546 Oct, IMMUNIZATIONS No Known Immunizations SOCIAL HISTORY Never Assessed REASON FOR VISIT CCM note PLAN OF CARE VITAL SIGNS MEDICATIONS No [...] Hospitalization History surgery 2013 Hospitalization History A Fib--[facility] 03/08/2016 Hospitalization History acute chest pain, hypertensive urgency, paroxsysmal htn-[facility] 05/10/16
--- OUTSIDE RECORDS SUMMARY | 2018-09-17 11:44 | XMS REPORT ---
Author Author JORDY DESIREE [facility] Address [address] [place] [address] Care Team Providers Care Software Application Tester Name Role Phone DESIREE SPENCE Unavailable PROBLEMS Type Condition ICD9-CM Code EMF80-DX Code Onset Dates Condition Status SNOMED Code Problem Vitamin D deficiency E55.9 Active 07317974 Problem Chronic frontal sinusitis J32.1 Active 03984390 Problem Hyponatremia E87.1 Active 01912370 Problem BMI 40.0-44.9, adult Z68.41 Active 631512403 Problem Seasonal allergies J30.2 Active 289244252 Problem Secondary pulmonary arterial hypertension I27.21 Active 18394696 Problem Other chronic gastritis without hemorrhage K29.50 Active 7533812 Problem Paroxysmal atrial fibrillation I48.0 Active 372212471 Problem Fasciculations of muscle R25.3 Active 42867567 Problem Depression, unspecified depression type F32.9 Active 00314256 Problem Mild intermittent asthma without complication J45.20 Active 451947773 Problem Chronic migraine G43.709 Active 67874433 Problem Primary insomnia F51.01 Active 669045445 Problem Generalized anxiety disorder F41.1 Active 633571160 Problem Elevated alkaline phosphatase level R74.8 Active 706680185 Problem Obstructive sleep apnea G47.33 Active 60140707 Problem Hidradenitis L73.2 Active 91839183 Problem Essential hypertension I10 Active 44519037 Problem Idiopathic peripheral neuropathy G60.9 Active 98368087 Problem Hyperlipidemia E78.5 Active 37071914 ALLERGIES No Information ENCOUNTERS Encounter Location Date Diagnosis [facility] [address], [place] [address] Jan, [facility] [address], [place] [address] 67[address] Jan, Essential hypertension I10 [facility] [address], [place] [address] Dec, [place] [address], [place] [address] Dec, [place] [id number] [place] [address] 61349- 2893 Dec, Essential hypertension I10 [place] [id number] [place] [address] 21717- 0901 Nov, Essential hypertension I10 [place] [address] [place] [id number] [place] [address] 31809- 6751 Nov, [place] [id number] [place] [address] 25931- 4050 Nov, Essential hypertension I10 and BMI 40.0-44.9, adult Z68.41 [place] [address] [place] [address] 15860- 9337 Oct, Essential hypertension I10 and Chronic kidney disease, unspecified CKD stage N18.9 [place] [id number] [place] [address] 99805- 9105 Oct, Essential hypertension I10 and Chronic kidney disease, unspecified CKD stage N18.9 [place] [address], [place] [address] 50[address] Oct, [place] [address], [place] [address] September, Medicare annual wellness visit, initial Z00.00 ; Mild intermittent asthma without complication J45.20 ; Generalized anxiety disorder F41.1 ; Depression, unspecified depression type F32.9 ; Paroxysmal atrial fibrillation I48.0 ; Obstructive sleep apnea G47.33 ; Hyponatremia E87.1 ; Need for hepatitis C screening test Z11.59 ; Encounter for immunization Z23 ; Secondary pulmonary arterial hypertension I27.21 and BMI 40.0-44.9, adult Z68.41 [place] [address], [place] [address] 8944 30 Aug, 2017 Essential hypertension I10 [facility] [id number] [place] [address] 28687 -7759 Jun, Dysuria R30.0 ; UTI symptoms R39.9 and Candidiasis of breast B37.89 [facility] [id number] [place] [address] 38480- 2745 Jun, Hyponatremia E87.1 [facility] [address] 28872- 2702 Jun, Hyponatremia E87.1 [facility] [address] 51769- 8387 Jun, Hyponatremia E87.1 [facility] [id number] [place] [address] 28898- 7149 Jun, [facility] [address] [address]- 3840 May, Hyponatremia E87.1 [facility] [id number] [place] [address] 28864- 2753 May, Hyponatremia E87.1 [facility] [id number] [place] [address] 81894- 1367 May, Hyponatremia E87.1 [facility] [address] 85019- 5578 May, Hyponatremia E87.1 [facility] [id number] [place] [address] 24043- 7075 Apr, Hyponatremia E87.1 ; Fasciculations of muscle R25.3 and Hyperlipidemia E78.5 [facility] [id number] [place] [address] 22997- 7757 Apr, Cough R05 ; Hyponatremia E87.1 ; Fasciculations of muscle R25.3 ; Primary insomnia F51.01 ; Essential hypertension I10 ; Hyperlipidemia E78.5 ; Screening for breast cancer Z12.31 and BMI 40.0-44.9, adult Z68.41 [facility] [place] [facility] [address] [address] 18 Apr, 2017 Essential hypertension I10 [facility] [place] [facility] [id number] [address] 6713 14 Mar, 2017 [facility] [place] [facility] [address] [place] [address] 7632 Mar, [facility] [address] [facility] [id number] [place] [address]- 7590 Mar, [facility] [place] [facility] [id number] [address] 8600 Feb, [facility] [place] [facility] [id number] [address]- 0272 Jan, [facility] [address] [address]- 5644 Dec, Essential hypertension I10 [facility] [address] [place] [address]- 8401 Dec, [facility] [address] [address]- 4665 Dec, Essential hypertension I10 [facility] [address], [place] [address]- 4835 Nov, [facility] [address], [place] [address]- 4513 Oct, Essential hypertension I10 [facility] [id number], [place] [address]- 6866 Oct, Essential hypertension I10 [facility] [address] [place] [address]- 5196 Oct, [facility] [place] [facility] [id number] [address]- 3611 September, [facility] [address], [place] [address]- 8656 September, Essential hypertension I10 [facility] [id number] [place] [address] 76104- 2524 September, [facility] [address] 94992- 1107 September, Essential hypertension I10 ; Hyperlipidemia E78.5 and Hyponatremia E87.1 [place] [address] 14114- 9666 September, Mild intermittent asthma without complication J45.20 ; Essential hypertension I10 ; Hyperlipidemia E78.5 ; Hyponatremia E87.1 and Dysuria R30.0 [place] [address] 60307- 0774 September, Other chronic gastritis without hemorrhage K29.50 ; Paroxysmal atrial fibrillation I48.0 and Essential hypertension I10 [place] [address] 41808- 1678 Aug, [facility] [id number] [place] [address] 95806- 8535 Jul, [facility] [address] 77663- 5833 14 Jun, 2016 [facility] [id number] [place] [address] 14783 -2322 07 Jun, 2016 Dysuria R30.0 and Acute cystitis with hematuria N30.01 [facility] [id number] [place] [address] 05243- 9785 Jun, Essential hypertension I10 [facility] [id number] [place] [address] 96071- 0017 May, Paroxysmal atrial fibrillation I48.0 [facility] [id number] [place] [address] 94525- 2938 May, Other chronic gastritis without hemorrhage K29.50 [facility] [address] 81857- 7302 17 May, 2016 [facility] [id number] [place] [address] 53912- 9847 May, Hyponatremia E87.1 ; Essential hypertension I10 and Other chronic gastritis without hemorrhage K29.50 [facility] [id number] [place] [address] 99710- 4864 May, Hyponatremia E87.1 [facility] [address] 09672- 7709 May, Hyponatremia E87.1 [facility] [address] [id number] May, [facility] [address] 41625- 9778 16 Apr, 2016 [facility] [address] [id number] [place] [address] 70296- 7153 Apr, [facility] [address] 12957- 6762 Mar, Essential hypertension I10 and Candidal intertrigo B37.2 [place] [address] 76002- 7171 Mar, Hyponatremia E87.1 [facility] [id number] [place] [address] 61547- 9041 Mar, [facility] [id number] [place] [address] 07882- 2176 Mar, Hyponatremia E87.1 [facility] [id number] [place] [address] 82682- 7879 Mar, Essential hypertension I10 ; Hyponatremia E87.1 ; Slurred speech R47.81 ; Paroxysmal atrial fibrillation I48.0 and Elevated blood sugar R73.9 [facility] [id number] [place] [address] 71056- 8721 Mar, [facility] [address] [place] [address]- 9098 Mar, [facility] [id number] [place] [address] 36143- 8804 Feb, [facility] [id number] [place] [address] 34153- 5431 Jan, [facility] [id number] [place] [address] 22012- 5733 Dec, [facility] [id number] [place] [address] 90847 -2800 Nov, Scratched by cat, initial encounter W55.03XA and Other injury of unspecified body region T14.8 [facility] [id number] [place] [address] 29418- 3068 Nov, [facility] [id number] [place] [address] 33527- 0201 Oct, [facility] [id number] [place] [address] 24144- 9001 September, [facility] [id number] [place] [address] 80919- 6411 Aug, Elevated alkaline phosphatase level R74.8 [facility] [id number] [place] [address] 09112- 1919 Jul, [facility] [id number] [place] [address] 17752- 8434 Jun, Essential hypertension I10 and Bright red blood per rectum K62.5 [facility] [address] [place] [address] 27203- 1430 Jun, Elevated alkaline phosphatase level R74.8 [facility] [id number] [place] [address] 18507- 2872 Jun, [facility] [address] [place] [address] 42203- 8598 May, Essential hypertension I10 ; Hyperlipidemia E78.5 and Well woman exam (no gynecological exam) Z00.00 [place] [id number] [place] [address] 54542- 1552 May, [place] [address] [place] [id number] [place] [address] 94027- 5508 May, [place] [address] [id number] [place] [address] 35778- 1748 Mar, [place] [address] 15651- 7888 Mar, [place] [address] 00615- 5330 Mar, [place] [address] [place] [address] [id number] [place] [address] 16637- 3134 Feb, Acute recurrent maxillary sinusitis J01.01 ; Asthma, unspecified, unspecified status 493.90 ; Seasonal allergies J30.2 and Cat allergies J30.81 [place] [address] [place] [id number] [place] [address] 10696- 3435 Feb, Upper respiratory tract infection, unspecified upper respiratory infection J06.9 [place] [address] [place] [id number] [place] [address] 02509- 0560 Jan, [place] [address] [place] [id number] [place] [address] 83149- 6128 Jan, Dysphagia 787.20 and GERD (gastroesophageal reflux disease) 530.81 [place] [address] [id number] [place] [address] 02664- 1876 Jan, Breast lesion 611.9 [place] [address] 98776- 1318 Dec, Breast lesion 611.9 [place] [address] [id number] [place] [address] 30853- 9441 Dec, Breast lesion 611.9 [place] [address] 84782- 7546 Nov, Fatigue 780.79 and Hyperlipidemia 272.4 [facility] [address] [facility] [id number] [address]- 0156 Nov, Hypertension 401.9 ; Hyperlipidemia 272.4 ; Chronic frontal sinusitis 473.1 and Fatigue 780.79 [facility] [address] [facility] [id number], [place] [address]- 0936 Nov, [facility] [address] [facility] [id number], [place] [address]- 0807 Oct, [facility] [address] [facility] [id number], [place] [address]- 3680 Oct, [facility] [id number], [place] [address]- 1846 September, [facility] [address], [place] [address]- 4970 September, [facility] [id number], [place] [address]- 0978 September, [facility] [id number], [place] [address]- 5131 September, [facility] [id number] [address] 7808 Aug, [facility] [id number], [place] [address]- 3176 Aug, [facility] [address] [facility] [id number], [place] [address]- 4622 Aug, [facility] [id number], [place] [address]- 8717 Jul, [facility] [address] [facility] [id number], [place] [address]- 8381 Jul, [facility] [id number], [place] [address]- 8002 Jul, [facility] [address] [facility] [id number] [place] [address]- 6705 19 Jul, 2014 [facility] [place] [facility] [address] [id number] [place] [address]- 8784 18 Jul, 2014 [facility] [place] [facility] [address] [id number] [place] [address]- 2686 17 Jul, 2014 [facility] [place] [facility] [address] [id number] [place] [address]- 2275 17 Jul, 2014 [facility] [place] [facility] [address] [id number] [place] [address]- 7557 16 Jul, 2014 [facility] [place] [facility] [address] [id number] [place] [address]- 4499 16 Jul, 2014 [facility] [place] [facility] [address] [id number] [place] [address]- 9666 Jul, [facility] [place] [facility] [address] [id number] [place] [address]- 1565 Jul, [facility] [place] [facility] [address] [id number] [place] [address]- 2840 Jul, [facility] [place] [facility] [address] [id number] [place] [address]- 9916 Jul, [facility] [place] [facility] [address] [id number] [place] [address]- 4986 Jul, [facility] [place] [facility] [address] [id number] [place] [address]- 7122 Jul, 2014 [facility] [place] [facility] [address] [id number] [place] [address]- 6136 Jun, [facility] [place] [facility] [address] [id number] [place] [address]- 4645 Jun, 2014 [facility] [place] [facility] [address] [id number] [place] [address]- 2546 Jun, [facility] [place] [facility] [address] [id number] [place] [address]- 9260 Jun, [facility] [place] [facility] [address] [id number] [place] [address]- 6194 May, [facility] [place] [facility] [address] [id number] [place] [address]- 0871 May, [facility] [place] [facility] [address] [id number] [place] [address]- 2456 May, [facility] [place] [facility] [address] [id number] [place] [address]- 9944 May, [facility] [place] [facility] [address] [id number] [place] [address]- 3794 Apr, [facility] [place] [facility] [address] [id number] [place] [address]- 4648 Apr, [facility] [place] [facility] [address] [id number] [place] [address]- 7338 Apr, [facility] [place] [facility] [address] [id number] [place] [address]- 0258 Apr, [facility] [place] [facility] [address] [id number] [place] [address]- 4947 Apr, [facility] [place] [facility] [address] [id number] [place] [address]- 2390 Apr, [facility] [place] [facility] [address] [id number] [place] [address]- 3940 Mar, [facility] [place] [facility] [address] [id number], [place] [address]- 8702 Mar, [facility] [place] [facility] [address] [id number] [place] [address]- 6650 Mar, [facility] [place] [facility] [address] [id number] [place] [address]- 1086 Mar, [facility] [place] [facility] [address] [id number] [place] [address]- 9285 Mar, [facility] [place] [facility] [address] [id number] [place] [address]- 5733 Mar, [facility] [place] [facility] [address] [id number] [place] [address]- 3075 Mar, [facility] [place] [facility] [address] [id number] [place] [address]- 3816 Mar, [facility] [place] [facility] [address] [id number] [place] [address]- 5830 Mar, [facility] [place] [facility] [address] [id number] [place] [address]- 3832 Mar, [facility] [place] [facility] [address] [id number] [place] [address]- 9538 Mar, [facility] [place] [facility] [address] [id number] [place] [address]- 2685 Mar, [facility] [place] [facility] [address] [facility] [id number] [place] [address]- 0810 Mar, [facility] [place] [facility] [address] [id number] [place] [address]- 3498 Mar, [facility] [place] [facility] [address] [id number] [place] [address]- 5993 Mar, [facility] [place] [facility] [address] [facility] [id number] [place] [address]- 4268 Mar, [facility] [place] [facility] [address] [id number] [place] [address]- 9024 Mar, [facility] [place] [facility] [address] [id number], [place] [address]- 2119 Feb, [facility] [place] [facility] [address] [id number] [place] [address]- 8237 Feb, [facility] [place] [facility] [address] [facility] [id number] [place] [address]- 8242 Feb, [facility] [place] [facility] [address] [id number] [place] [address]- 9261 Feb, [facility] [place] [facility] [address] [id number] [place] [address]- 0208 Feb, [facility] [place] [facility] [address] [id number] [place] [address]- 1828 Feb, [facility] [place] [facility] [address] [id number] [place] [address]- 4217 Feb, [facility] [place] [facility] [address] [id number] [place] [address]- 1913 Feb, [facility] [place] [facility] [address] [id number] [place] [address]- 6741 Feb, [facility] [place] [facility] [address] [id number] [place] [address]- 6860 Feb, [facility] [place] [facility] [address] [id number] [place] [address]- 5024 Feb, [facility] [place] [facility] [address] [id number] [place] [address]- 9077 Feb, [facility] [place] [facility] [address] [id number] [place] [address]- 0022 Feb, [facility] [place] [facility] [address] [id number] [place] [address]- 5801 Feb, [facility] [place] [facility] [address] [id number] [place] [address]- 8731 Feb, [facility] [place] [facility] [address] [id number] [place] [address] Feb, [facility] [place] [facility] [address] [id number] [place] [address] Feb, [facility] [place] [facility] [address] [id number] [place] [address] Feb, [facility] [place] [facility] [address] [id number] [place] [address] Feb, [facility] [place] [facility] [address] [id number] [place] [address] 30 Jan, 2013 [facility] [place] [facility] [address] [id number] [place] [address] 30 Jan, 2013 [facility] [place] [facility] [address] [id number] [place] [address] 29 Jan, 2013 [facility] [place] [facility] [address] [id number] [place] [address]46 29 Jan, 2013 [facility] [place] [facility] [address] [id number] [place] [address] 24 Jan, 2013 [facility] [place] [facility] [address] [id number] [place] [address] 24 Jan, 2013 [facility] [place] [facility] [address] [id number] [place] [address]- [address] 10 Jan, 2013 [facility] [place] [facility] [address] [id number] [place] [address] 08 Jan, 2013 [facility] [place] [facility] [address] [id number] [place] [address] 08 Jan, 2014 [facility] [place] [facility] [address] [id number] [place] [address] Dec, [facility] [place] [facility] [address] [id number] [place] [address] Dec, [facility] [place] [facility] [address] [id number] [place] [address] Dec, [facility] [place] [facility] [address] [id number] [place] [address] Dec, [facility] [place] [facility] [address] [id number] [place] [address]- [address] Dec, [facility] [place] [facility] [address] [id number] [place] [address] Dec, [facility] [place] [facility] [address] [id number] [place] [address] Dec, [facility] [place] [facility] [address] [id number] [place] [address] Dec, [facility] [place] [facility] [address] [id number] [place] [address]- [address] Dec, [facility] [place] [facility] [address] [id number] [place] [address] Nov, [facility] [place] [facility] [address] [id number] [place] [address]- [address] Nov, [facility] [place] [facility] [address] [id number] [place] [address]- [address] Nov, [facility] [place] [facility] [address] [id number] [place] [address]- [address] Nov, [facility] [place] [facility] [address] [id number] [place] [address] Nov, [facility] [place] [facility] [address] [id number] [place] [address] Nov, [facility] [place] [facility] [address] [id number] [place] [address] Oct, [facility] [place] [facility] [address] [id number] [place] [address] Oct, [facility] [place] [facility] [address] [id number] [place] [address] Oct, [facility] [place] [facility] [address] [id number] [place] [address] Oct, [facility] [place] [facility] [address] [id number] [place] [address] Oct, [facility] [place] [facility] [address] [id number] [place] [address] Oct, [facility] [place] [facility] [address] [id number] [place] [address] Oct, [facility] [place] [facility] [address] [id number] [place] [address] Oct, [facility] [place] [facility] [address] [id number] [place] [address]- [address] Oct, [facility] [place] [facility] [address] [id number] [place] [address] Oct, [facility] [facility] [address] [id number] [place] [address] Oct, [facility] [place] [facility] [address] [id number] [place] [address]39 Oct, [facility] [place] [facility] [address] [id number] [place] [address] 6329 Oct, [facility] [place] [facility] [address] [id number] [place] [address]295 Oct, [facility] [place] [facility] [address] [id number] [place] [address]- 4205 September, [facility] [place] [facility] [address] [id number] [place] [address]- 3826 September, [facility] [place] [facility] [address] [id number] [place] [address]- 6193 September, [facility] [place] [facility] [address] [id number] [place] [address] 49[address] September, [facility] [place] [facility] [address] [id number] [place] [address]- 3843 September, [facility] [place] [facility] [address] [id number] [place] [address]- 2887 September, [facility] [place] [facility] [address] [id number] [place] [address]- 9687 September, [facility] [place] [facility] [address] [id number] [place] [address]- 3048 September, [facility] [place] [facility] [address] [id number] [place] [address]- 5080 September, [facility] [place] [facility] [address] [id number] [place] [address]- 1027 September, [facility] [address] [id number] [place] [address]- 3004 September, [facility] [place] [facility] [address] [id number] [place] [address]- 4273 September, [facility] [place] [facility] [address] [id number] [place] [address]- 3385 September, [facility] [place] [facility] [address] [id number] [place] [address]- 5307 September, [facility] [place] [facility] [address] [id number] [place] [address]- 1641 September, [facility] [address] [id number] [place] [address]- 6566 September, [facility] [address] [id number] [place] [address]- 9993 September, [facility] [address] [id number] [place] [address]- 5545 September, [facility] [address] [id number] [place] [address] September, [facility] [address] [id number] [place] [address]- 8765 Aug, [facility] [address] [id number] [place] [address]- 9982 Aug, [facility] [address] [id number] [place] [address]- 1017 Jul, [facility] [address] [id number] [place] [address]- 5582 Jul, [facility] [facility] [address] [id number] [place] [address]- 6546 Jul, [facility] [address] [id number] [place] [address]- 0303 Jul, [facility] [address] [id number] [place] [address]- 9494 27 Jul, 2013 [facility] [place] [facility] [address] [id number] [place] [address]- 9945 Jul, [facility] [address] [id number] [place] [address]- 2544 Jul, [facility] [address] [id number] [place] [address]- 4265 Jul, [facility] [address] [id number] [place] [address]- 5070 Jul, [facility] [address] [id number] [place] [address]- 9451 Jul, [facility] [address] [id number] [place] [address]- 7693 Jul, [facility] [address] [id number] [place] [address]- 3357 14 Jul, 2013 [facility] [address] [id number] [place] [address]- 9627 07 Jul, 2013 [facility] [address] [id number] [place] [address]- 0603 07 Jul, 2013 [facility] [address] [id number] [place] [address]- 4442 10 Jun, 2013 [facility] [address] [id number] [place] [address]- 4814 Jun, [facility] [address] [id number] [place] [address]- 9565 10 Jun, 2013 [facility] [address] [id number] [place] [address]- 8378 10 Jun, 2013 [facility] [address] [id number] [place] [address]- 7563 May, [facility] [address] [id number] [place] [address]- 4209 May, [facility] [address] [id number] [place] [address]- 5032 May, [facility] [address] [id number] [place] [address]- 3878 May, [facility] [address] [id number] [place] [address]- 4734 May, [facility] [address] [id number] [place] [address]- 7142 Mar, [facility] [address] [id number] [place] [address]- 9715 Mar, [facility] [address] [id number] [place] [address]- 9559 Mar, [facility] [address] [id number] [place] [address]- 4030 Mar, [facility] [address] [id number] [place] [address]- 6142 Mar, [facility] [address] [id number] [place] [address]- 6540 Mar, [facility] [address] [id number] [place] [address]- 2905 Feb, [facility] [address] [id number] [place] [address]- 2820 Feb, [facility] [address] [id number] [place] [address]- 9548 Feb, [facility] [address] [id number] [place] [address]- 7772 Feb, [facility] [address] [id number] [place] [address]- 8032 Feb, [facility] [address] [id number] [place] [address]- 5633 Feb, [facility] [address] [id number] [place] [address] 254 Feb, [facility] [address] [id number] [place] [address]- 4438 Feb, [facility] [address] [id number] [place] [address]- 2546 Feb, [facility] [address] [id number] [place] [address] 2549 Feb, [facility] [address] [id number] [place] [address] 2540 Feb, [facility] [address] [id number] [place] [address]- 8161 Feb, [facility] [address] [id number] [place] [address]- 3427 Jan, [facility] [address] [id number] [place] [address]- 1476 Jan, [facility] [address] [id number] [place] [address]- 0171 Dec, [facility] [address] [id number] [place] [address]- 1201 Dec, [facility] [address] [id number] [place] [address]- 7473 Nov, [facility] [address] [id number] [place] [address]- 2543 Nov, [facility] [address] [id number] [place] [address]- 2549 Nov, [facility] [address] [id number] [place] [address]- 2541 Nov, [facility] [address] [id number] [place] [address]- 2546 Nov, [facility] [address] [id number] [place] [address]- 5509 Oct, [facility] [address] [id number] [place] [address]- 4378 September, [facility] [address] [id number] [place] [address]- 6667 Aug, [facility] [address] [id number] [place] [address]- 5130 Jul, [facility] [address] [id number] [place] [address]- 5054 Jul, [facility] [address] [id number] [place] Jul, [facility] [address] [id number] [place] [address]- 3906 28 Jun, 2012 [facility] [address] [id number] [place] [address]- 6108 14 Jun, 2012 [facility] [address] [id number] [place] [address]- 3972 Jun, [facility] [address] [id number] [place] [address]- 0312 Jun, [facility] [address] [id number] [place] [address]- 2255 Jun, [facility] [address] [id number] [place] [address]- 1575 May, [facility] [address] [id number], [place] [address] 6806 May, [facility] [address] [id number] [place] [address]- 6908 Apr, [facility] [address] [id number] [place] [address]- 4246 Apr, [facility] [address] [id number] [place] [address]- 5840 Mar, [facility] [address] [id number] [place] [address]- 2392 Mar, [facility] [address] [id number] [place] [address]- 2634 Mar, [facility] [address] [id number] [place] [address]- 6236 Mar, [facility] [address] [id number] [place] [address]- 4970 Mar, [facility] [address] [id number] [place] [address]- 4670 Mar, [facility] [address] [id number] [place] [address]- 4178 Mar, [facility] [address] [id number] [place] [address]- 8327 Mar, [facility] [address] [facility] [id number] [place] [address]- 4488 Mar, [facility] [address] [id number] [place] [address]- 0463 Mar, [facility] [address] [facility] [id number] [place] [address]- 1994 Feb, [facility] [address] [facility] [id number] [place] [address]- 0734 31 Feb, 2012 [facility] [address] [id number] [place] [address]- 7781 30 Feb, 2012 [facility] [address] [facility] [id number] [place] [address]- 3405 30 Feb, 2012 [facility] [address] [id number] [place] Feb, [facility] [address] [facility] [id number] [place] [address]- 3521 Feb, [facility] [address] [id number] [place] [address]- 7469 Jan, [facility] [address] [id number] [place] [address]- 0978 Jan, [facility] [address] [id number] [place] [address]- 4977 Dec, [facility] [address] [id number] [place] [address]- 3318 Dec, [facility] [address] [id number] [place] [address]- 3268 Dec, [facility] [address] [id number] [place] [address]- 2371 Nov, [facility] [address] [id number] [place] [address]- 6801 September, [facility] [address] [id number] [place] [address]- 4784 September, [facility] [address] [id number] [place] [address]- 6398 September, [facility] [address] [id number] [place] [address]- 4731 September, [facility] [address] [id number] [place] [address]- 6121 Aug, [facility] [address] [id number] [place] [address]- 7218 Aug, [facility] [address] [id number] [place] [address]- 2985 Aug, [facility] [address] [id number] [place] [address]- 9414 Aug, [facility] [address] [id number] [place] [address]- 9833 Aug, [facility] [address] [id number] [place] [address]- 3407 Jul, [facility] [address] [id number] [place] [address]- 0070 05 Jul, 2011 [facility] [address] [id number] [place] [address]- 5664 Jul, [facility] [address] [id number] [place] [address]- 4416 29 Jun, 2011 [facility] [address] [id number] [place] [address]- 6726 17 Jun, 2011 [facility] [address] [id number] [place] [address]- 6317 13 Jun, 2011 [facility] [address] [id number] [place] [address]- 2064 10 Jun, 2011 [facility] [address] [id number] [place] [address]- 1876 07 Jun, 2011 [facility] [address] [id number] [place] [address]- 6006 Jun, [facility] [address] [id number] [place] [address]- 1443 Jun, [facility] [place] [facility] [address] [id number] [place] [address]- 6885 May, [facility] [address] [id number] [place] [address]- 3515 May, [facility] [place] [facility] [address] [id number] [place] [address]- 8549 May, [facility] [facility] [address] [id number] [place] [address]- 2619 May, [facility] [place] [facility] [address] [id number] [place] [address]- 5241 Apr, [facility] [address] [id number] [place] [address]- 0484 Apr, [facility] [address] [id number], [place] [address]- 4534 Mar, [facility] [address] [id number] [place] [address]- 3167 Mar, [facility] [address] [id number] [place] [address]- 6373 Mar, [facility] [address] [id number] [place] [address]- 7246 Nov, [facility] [address] [id number] [place] [address]- 0170 13 May, 2010 [facility] [address] [id number] [place] [address]- 9380 Apr, [facility] [address] [id number] [place] [address]- 2723 Apr, [facility] [address] [id number] [place] [address]- 4714 Apr, [facility] [address] [id number] [place] [address]- 5325 Apr, [facility] [address] [id number] [place] [address]- 1105 Apr, [facility] [address] [id number] [place] [address]- 6922 Mar, [facility] [address] [id number] [place] [address]- 6394 Mar, [facility] [address] [id number] [place] [address]- 4018 Feb, [facility] [place] [facility] [address] [id number] [place] [address]- 2083 14 Aug, 2009 [facility] [place] [facility] [address] [id number] [place] [address]- 1286 Jul, [facility] [facility] [address] [id number] [place] [address]- 1026 17 Jun, 2009 [facility] [place] [facility] [address] [id number] [place] [address]- 2546 Apr, [facility] [address] [facility] [id number], [place] [address]- 2546 Apr, [facility] [address] [id number], [place] [address]- 2546 Mar, [facility] [address] [facility] [id number], [place] [address]- 2546 Mar, [facility] [address] [facility] [id number], [place] [address]- 2546 Feb, [facility] [address] [facility] [id number], [place] [address]- 2546 Dec, [facility] [address] [facility] [id number], [place] [address]- 2546 Oct, IMMUNIZATIONS No Known Immunizations SOCIAL HISTORY Never Assessed REASON FOR VISIT Refill request PLAN OF CARE VITAL SIGNS MEDICATIONS Medication Instructions Dosage Frequency Start Date End Date Duration Status Metoprolol Succinate ER 50 mg Orally Once a day 1 tablet 24h 30 days Active Carbamazepine 200 mg Orally in [...] Hospitalization History surgery 2013 Hospitalization History A Fib--[facility] 03/08/2016 Hospitalization History acute chest pain, hypertensive urgency, paroxsysmal htn-[facility] 05/10/16
--- OUTSIDE RECORDS SUMMARY | 2018-09-17 11:45 | XMS REPORT ---
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 Patternmaker Metal Bench Name Role Phone DESIREE SPENCE Unavailable PROBLEMS Type Condition ICD9-CM Code [id number] Code Onset Dates Condition Status SNOMED Code Problem Vitamin D deficiency E55.9 Active 47468677 Problem Chronic frontal sinusitis J32.1 Active 08342858 Problem Hyponatremia E87.1 Active 01162719 Problem BMI 40.0-44.9, adult Z68.41 Active 002931792 Problem Seasonal allergies J30.2 Active 364862628 Problem Secondary pulmonary arterial hypertension I27.21 Active 15356475 Problem Other chronic gastritis without hemorrhage K29.50 Active 3315095 Problem Paroxysmal atrial fibrillation I48.0 Active 089524393 Problem Fasciculations of muscle R25.3 Active 52857547 Problem Depression, unspecified depression type F32.9 Active 93630498 Problem Mild intermittent asthma without complication J45.20 Active 000815625 Problem Chronic migraine G43.709 Active 17618984 Problem Primary insomnia F51.01 Active 906020599 Problem Generalized anxiety disorder F41.1 Active 915565261 Problem Elevated alkaline phosphatase level R74.8 Active 263330179 Problem Obstructive sleep apnea G47.33 Active 04770040 Problem Hidradenitis L73.2 Active 06368012 Problem Essential hypertension I10 Active 76119561 Problem Idiopathic peripheral neuropathy G60.9 Active 66585586 Problem Hyperlipidemia E78.5 Active 83736335 ALLERGIES No Information ENCOUNTERS Encounter Location Date Diagnosis [facility] [address] [address] Jan, [facility] [address] [address] 6964 Dec, [facility] [address] [address] 98[address] Dec, [place] [id number] [place] [address] 31498- 4758 Dec, Essential hypertension I10 [place] [id number] [place] [address] 64119- 0967 Nov, Essential hypertension I10 [place] [id number] [place] [address] 97298- 2223 Nov, [place] [id number] [place] [address] 26889- 2151 Nov, Essential hypertension I10 and BMI 40.0-44.9, adult Z68.41 [place] [id number] [place] [address] 01303- 8371 Oct, Essential hypertension I10 and Chronic kidney disease, unspecified CKD stage N18.9 [place] [id number] [place] [address] 27160- 5211 Oct, Essential hypertension I10 and Chronic kidney disease, unspecified CKD stage N18.9 [place] [id number] [place] [address] 49677- 9524 Oct, [place] [id number] [place] [address] 95212- 9848 September, Medicare annual wellness visit, initial Z00.00 ; Mild intermittent asthma without complication J45.20 ; Generalized anxiety disorder F41.1 ; Depression, unspecified depression type F32.9 ; Paroxysmal atrial fibrillation I48.0 ; Obstructive sleep apnea G47.33 ; Hyponatremia E87.1 ; Need for hepatitis C screening test Z11.59 ; Encounter for immunization Z23 ; Secondary pulmonary arterial hypertension I27.21 and BMI 40.0-44.9, adult Z68.41 [place] [id number] [place] [address] 88830- 2365 Aug, Essential hypertension I10 [facility] [id number] [place] [address] 80870 -3041 Jun, Dysuria R30.0 ; UTI symptoms R39.9 and Candidiasis of breast B37.89 [facility] [id number] [place] [address] 87275- 4063 Jun, Hyponatremia E87.1 [facility] [id number] [place] [address] 27094- 7239 Jun, Hyponatremia E87.1 [facility] [id number] [place] [address] 74881- 0973 Jun, Hyponatremia E87.1 [facility] [id number] [place] [address] 49742- 5513 Jun, [facility] [id number] [place] [address] 02795- 9030 May, Hyponatremia E87.1 [place] [id number] [place] [address] 09440- 7496 May, Hyponatremia E87.1 [place] [id number] [place] [address] 94457- 0866 May, Hyponatremia E87.1 [place] [id number] [place] [address] 33965- 7826 May, Hyponatremia E87.1 [place] [id number] [place] [address] 33339- 6569 Apr, Hyponatremia E87.1 ; Fasciculations of muscle R25.3 and Hyperlipidemia E78.5 [place] [id number] [place] [address] 63336- 7672 Apr, Cough R05 ; Hyponatremia E87.1 ; Fasciculations of muscle R25.3 ; Primary insomnia F51.01 ; Essential hypertension I10 ; Hyperlipidemia E78.5 ; Screening for breast cancer Z12.31 and BMI 40.0-44.9, adult Z68.41 [place] [id number] [place] [address] 60290- 7734 Apr, Essential hypertension I10 [facility] [address] [facility] [id number] [place] [address]- 5450 14 Mar, 2017 [facility] [address] [facility] [id number] [place] [address]- 8028 Mar, [facility] [id number] [place] [address]- 8468 Mar, [facility] [address] [facility] [id number] [place] [address]- 5067 Feb, [facility] [address] [facility] [id number] [place] [address]- 3401 Jan, [facility] [address] [facility] [id number] [place] [address]- 6939 14 Dec, 2016 Essential hypertension I10 [facility] [address] [place] [address]- 3457 Dec, [facility] [address] [id number] [place] [address]- 0265 Dec, Essential hypertension I10 [facility] [address] [address] [id number] [place] [address]- 0795 Nov, [facility] [address] [address]- 7967 Oct, Essential hypertension I10 [facility] [address] [place] [address]- 1699 Oct, Essential hypertension I10 [facility] [address] [facility] [id number] [address]- 9599 Oct, [facility] [address] [facility] [id number] [place] [address]- 7493 September, [facility] [id number] [address]- 8456 September, Essential hypertension I10 [facility] [id number] [address]- 3654 September, [facility] [address] [place] [address] 22429- 2852 September, Essential hypertension I10 ; Hyperlipidemia E78.5 and Hyponatremia E87.1 [facility] [id number] [place] [address] 46787- 3778 September, Mild intermittent asthma without complication J45.20 ; Essential hypertension I10 ; Hyperlipidemia E78.5 ; Hyponatremia E87.1 and Dysuria R30.0 [facility] [id number] [place] [address] 65584- 4511 September, Other chronic gastritis without hemorrhage K29.50 ; Paroxysmal atrial fibrillation I48.0 and Essential hypertension I10 [place] [id number] [place] [address] 85153- 7790 Aug, [place] [id number] [place] [address] 32419- 8542 Jul, [facility] [id number] [place] [address] 72664- 3173 14 Jun, 2016 [facility] [id number] [place] [address] 81802 -5093 07 Jun, 2016 Dysuria R30.0 and Acute cystitis with hematuria N30.01 [facility] [id number] [place] [address] 54366- 0222 Jun, Essential hypertension I10 [facility] [id number] [place] [address] 51132- 7853 May, Paroxysmal atrial fibrillation I48.0 [facility] [id number] [place] [address] 07289- 1622 May, Other chronic gastritis without hemorrhage K29.50 [facility] [id number] [place] [address] 51162- 7853 May, [facility] [id number] [place] [address] 51817- 4158 May, Hyponatremia E87.1 ; Essential hypertension I10 and Other chronic gastritis without hemorrhage K29.50 [facility] [address] 13399- 5310 May, Hyponatremia E87.1 [facility] [id number] [place] [address] 36610- 7803 May, Hyponatremia E87.1 [facility] [address] [id number] May, [facility] [address] 28991- 4514 16 Apr, 2016 [facility] [address] 27800- 4671 Apr, [facility] [address] 18180- 9363 Mar, Essential hypertension I10 and Candidal intertrigo B37.2 [facility] [id number] [place] [address] 27483- 7811 Mar, Hyponatremia E87.1 [facility] [address] 61607- 3401 Mar, [facility] [address] 95032- 2170 Mar, Hyponatremia E87.1 [facility] [id number] [place] [address] 87641- 1787 Mar, Essential hypertension I10 ; Hyponatremia E87.1 ; Slurred speech R47.81 ; Paroxysmal atrial fibrillation I48.0 and Elevated blood sugar R73.9 [facility] [address] 06046- 5145 Mar, [facility] [id number] [place] [address] 65736- 4652 Mar, [facility] [address] 31560- 3325 Feb, [facility] [id number] [place] [address] 91478- 1367 Jan, [facility] [id number] [place] [address] 33542- 8198 Dec, [facility] [id number] [place] [address] 81923 -0139 Nov, Scratched by cat, initial encounter W55.03XA and Other injury of unspecified body region T14.8 [facility] [id number] [place] [address] 73224- 4910 Nov, [facility] [id number] [place] [address] 30121- 7186 Oct, [place] [id number] [place] [address] 59581- 4398 September, [facility] [id number] [place] [address] 22766- 1288 Aug, Elevated alkaline phosphatase level R74.8 [place] [id number] [place] [address] 03386- 5595 Jul, [facility] [id number] [place] [address] 77443- 4877 Jun, Essential hypertension I10 and Bright red blood per rectum K62.5 [place] [id number] [place] [address] 78055- 1602 Jun, Elevated alkaline phosphatase level R74.8 [facility] [id number] [place] [address] 81580- 1524 Jun, [facility] [id number] [place] [address] 19530- 9267 May, Essential hypertension I10 ; Hyperlipidemia E78.5 and Well woman exam (no gynecological exam) Z00.00 [place] [id number] [place] [address] 03337- 1297 May, [place] [address] [place] [address] 73571- 6105 May, [place] [id number] [place] [address] 351673- 5130 Mar, [place] [id number] [place] [address] 70589- 8138 Mar, [place] [id number] [place] [address] 293785- 2106 Mar, [place] [id number] [place] [address] 66163- 7110 Feb, Acute recurrent maxillary sinusitis J01.01 ; Asthma, unspecified, unspecified status 493.90 ; Seasonal allergies J30.2 and Cat allergies J30.81 [place] [id number] [place] [address] 04737- 1293 Feb, Upper respiratory tract infection, unspecified upper respiratory infection J06.9 [place] [address] [id number] [place] [address] 54606- 5021 Jan, [place] [id number] [place] [address] 11635- 4560 Jan, Dysphagia 787.20 and GERD (gastroesophageal reflux disease) 530.81 [place] [address] [id number] [place] [address] 02109- 3107 Jan, Breast lesion 611.9 [place] [address] [id number] [place] [address] 09787- 3883 Dec, Breast lesion 611.9 [place] [id number] [place] [address] 368976- 7630 Dec, Breast lesion 611.9 [place] [id number] [place] [address] 390477- 2449 Nov, Fatigue 780.79 and Hyperlipidemia 272.4 [place] [address] [place] [address]- 2208 Nov, Hypertension 401.9 ; Hyperlipidemia 272.4 ; Chronic frontal sinusitis 473.1 and Fatigue 780.79 [facility] [address] [facility] [id number] [address]- 3076 Nov, [facility] [address] [address]- 0449 Oct, [facility] [address] [facility] [id number] [address]- 1520 Oct, [facility] [address] [place] [address]- 8454 September, [facility] [id number] [place] [address] 23471- 5374 September, [facility] [id number] [address]- 7166 September, [facility] [address] [address]- 1409 September, [facility] [address] [address]- 0923 Aug, [facility] [address] [address]- 2910 Aug, [facility] [address] [address]- 2632 Aug, [facility] [address] [address]- 4850 Jul, [facility] [id number] [address]- 0362 Jul, [facility] [address] [address]- 4076 Jul, [facility] [id number] [address]- 6276 Jul, [facility] [id number] [place] [address]- 3647 18 Jul, 2014 [facility] [place] [facility] [address] [id number] [place] [address]- 6553 17 Jul, 2014 [facility] [place] [facility] [address] [id number] [place] [address]- 7151 17 Jul, 2014 [facility] [place] [facility] [address] [id number] [place] [address]- 4834 16 Jul, 2014 [facility] [place] [facility] [address] [id number] [place] [address]- 5351 16 Jul, 2014 [facility] [place] [facility] [address] [id number] [place] [address]- 9735 Jul, [facility] [place] [facility] [address] [facility] [id number] [place] [address]- 1615 Jul, [facility] [place] [facility] [address] [facility] [id number] [place] [address]- 1250 09 Jul, 2014 [facility] [place] [facility] [address] [facility] [id number] [place] [address]- 7510 09 Jul, 2014 [facility] [place] [facility] [address] [id number] [place] [address]- 4063 04 Jul, 2014 [facility] [place] [facility] [address] [facility] [id number] [place] [address]- 2225 04 Jul, 2014 [facility] [place] [facility] [address] [id number] [place] [address]- 1375 Jun, 2014 [facility] [place] [facility] [address] [facility] [id number] [place] [address]- 5744 Jun, 2014 [facility] [place] [facility] [address] [id number] [place] [address]- 5917 09 Jun, 2014 [facility] [place] [facility] [address] [facility] [id number] [place] [address]- 2546 09 Jun, 2014 [facility] [place] [facility] [address] [facility] [id number] [place] 4404 May, [facility] [place] [facility] [address] [id number] [place] [address]- 6633 May, [facility] [place] [facility] [address] [id number] [place] [address]- 3412 May, [facility] [place] [facility] [address] [id number] [place] [address]- 6191 May, [facility] [place] [facility] [address] [id number] [place] [address]- 2953 Apr, [facility] [place] [facility] [address] [id number] [place] [address]- 1386 Apr, [facility] [place] [facility] [address] [id number] [place] [address]- 5488 Apr, [facility] [place] [facility] [address] [id number] [place] [address]- 6827 Apr, [facility] [place] [facility] [address] [id number] [place] [address]- 1185 Apr, [facility] [place] [facility] [address] [id number] [place] [address]- 9844 Apr, [facility] [place] [facility] [address] [id number] [place] [address]- 5281 Mar, [facility] [place] [facility] [address] [id number] [place] [address]- 0711 Mar, [facility] [place] [facility] [address] [id number] [address]- 6328 Mar, [facility] [place] [facility] [address] [id number] [place] [address]- 2380 Mar, [facility] [place] [facility] [address] [id number] [place] [address]- 7454 Mar, [facility] [place] [facility] [address] [id number][place] [address]- 0544 Mar, [facility] [place] [facility] [address] [id number] [address]- 0659 Mar, [facility] [place] [facility] [address] [id number] [place] [address]- 3350 Mar, [facility] [place] [facility] [address] [id number][place] [address]- 7491 Mar, [facility] [place] [facility] [address] [facility] [id number] [place] [address]- 5347 Mar, [facility] [place] [facility] [address] [id number] [address]- 5613 Mar, [facility] [place] [facility] [address] [facility] [id number] [place] [address]- 9001 Mar, [facility] [place] [facility] [address] [facility] [id number] [place] [address]- 4151 Mar, [facility] [place] [facility] [address] [facility] [id number][place] [address]- 7197 Mar, [facility] [place] [facility] [address] [facility] [id number] [address]- 9804 Mar, [facility] [place] [facility] [address] [facility] [id number][place] [address]- 2878 Mar, [facility] [place] [facility] [address] [facility] [id number][place] [address]- 4492 Mar, [facility] [place] [facility] [address] [facility] [id number] [address]- 0076 Feb, [facility] [place] [facility] [address] [facility] [id number][place] [address]- 4966 Feb, [facility] [place] [facility] [address] [id number][place] [address]- 7822 Feb, [facility] [place] [facility] [address] [facility] [id number][place] [address]- 0906 Feb, [facility] [place] [facility] [address] [facility] [id number][place] [address]- 6029 Feb, [facility] [place] [facility] [address] [id number] [place] [address]- 3256 29 Feb, 2013 [facility] [place] [facility] [address] [id number] [place] [address]- 3794 Feb, [facility] [place] [facility] [address] [id number] [place] [address]- 9401 Feb, [facility] [place] [facility] [address] [id number] [place] [address]- 9031 Feb, [facility] [place] [facility] [address] [id number] [place] [address]- 6354 Feb, [facility] [place] [facility] [address] [id number] [place] [address]- 0443 Feb, [facility] [place] [facility] [address] [id number] [place] [address]- 4956 16 Feb, 2014 [facility] [place] [facility] [address] [id number] [place] [address]- 8722 Feb, [facility] [place] [facility] [address] [id number] [place] [address]- 4043 15 Feb, 2014 [facility] [place] [facility] [address] [id number] [place] [address]- 1044 Feb, [facility] [place] [facility] [address] [id number] [place] [address]- 5159 Feb, [facility] [place] [facility] [address] [id number] [place] [address]- 7068 Feb, [facility] [place] [facility] [address] [id number] [place] [address]- 8301 Feb, [facility] [place] [facility] [address] [id number] [place] [address]- 0387 Feb, [facility] [place] [facility] [address] [id number] [place] [address]- 9612 30 Jan, 2014 [facility] [place] [facility] [address] [id number] [place] [address]- 8503 30 Sep, 2013 [facility] [place] [facility] [address] [id number] [place] [address]- 2976 29 Jan, 2013 [facility] [place] [facility] [address] [id number] [place] [address] 29 Jan, 2014 [facility] [place] [facility] [address] [id number] [place] [address] 24 Jan, 2014 [facility] [place] [facility] [address] [id number] [place] [address] 24 Jan, 2013 [facility] [place] [facility] [address] [id number] [place] [address] 10 Jan, 2014 [facility] [place] [facility] [address] [id number] [place] [address] 08 Jan, 2014 [facility] [place] [facility] [address] [id number] [place] [address] Jan, [facility] [place] [facility] [address] [id number] [place] [address] Dec, [facility] [place] [facility] [address] [id number] [place] [address] Dec, [facility] [place] [facility] [address] [id number] [place] [address] Dec, [facility] [place] [facility] [address] [id number] [place] [address] Dec, [facility] [place] [facility] [address] [id number] [address] Dec, [facility] [place] [facility] [address] [id number] [place] [address] Dec, [facility] [place] [facility] [address] [id number] [place] [address] Dec, [facility] [place] [facility] [address] [id number] [place] [address] Dec, [facility] [place] [facility] [address] [id number] [place] [address] Dec, [facility] [place] [facility] [address] [id number] [place] [address] Nov, [facility] [place] [facility] [address] [id number] [place] [address] Nov, [facility] [place] [facility] [address] [id number] [place] [address] Nov, [facility] [place] [facility] [address] [id number] [place] [address] Nov, [facility] [place] [facility] [address] [id number] [place] [address] Nov, [facility] [place] [facility] [address] [id number] [place] [address] Nov, [facility] [place] [facility] [address] [id number] [place] [address] Oct, [facility] [place] [facility] [address] [id number] [place] [address] Oct, [facility] [place] [facility] [address] [id number] [place] [address] Oct, [facility] [place] [facility] [address] [id number] [place] [address] Oct, [facility] [place] [facility] [address] [id number] [place] [address] Oct, [facility] [place] [facility] [address] [id number] [place] [address] Oct, [facility] [place] [facility] [address] [id number] [place] [address] Oct, [facility] [place] [facility] [address] [id number] [place] [address] Oct, [facility] [place] [facility] [address] [id number] [place] [address] Oct, [facility] [place] [facility] [address] [id number] [place] [address] Oct, [facility] [place] [facility] [address] [id number] [place] [address] Oct, [facility] [place] [facility] [address] [id number] [place] [address] Oct, [facility] [place] [facility] [address] [id number] [place] [address] Oct, [facility] [place] [facility] [address] [id number] [place] [address] Oct, [facility] [place] [facility] [address] [id number] [place] [address] September, [facility] [place] [facility] [address] [id number] [place] [address] September, [facility] [place] [facility] [address] [id number] [place] [address] September, [facility] [place] [facility] [address] [id number] [place] [address] September, [facility] [place] [facility] [address] [id number] [place] [address] September, [facility] [place] [facility] [address] [id number] [place] [address] September, [facility] [place] [facility] [address] [id number] [place] [address] September, [facility] [place] [facility] [address] [id number] [place] [address] 7763 September, [facility] [place] [facility] [address] [id number] [place] [address]- 6564 September, [facility] [place] [facility] [address] [id number] [place] [address] 5798 September, [facility] [place] [facility] [address] [id number] [place] [address]- 2546 September, [facility] [place] [facility] [address] [id number] [place] [address]- 4964 September, [facility] [place] [facility] [address] [id number] [place] [address]- 9661 September, [facility] [place] [facility] [address] [id number] [place] [address]- 1595 September, [facility] [place] [facility] [address] [id number] [place] [address]- 0[address] September, [facility] [place] [facility] [address] [id number] [place] [address]- 1818 September, [facility] [place] [facility] [address] [id number] [place] [address]- 8626 September, [facility] [place] [facility] [address] [id number] [place] [address]- 0105 September, [facility] [place] [facility] [address] [id number] [place] [address]- 7122 September, [facility] [place] [facility] [address] [id number] [place] [address]- 6313 Aug, [facility] [place] [facility] [address] [id number] [place] [address]- 3613 Aug, [facility] [place] [facility] [address] [id number] [place] [address]- 5137 Jul, [facility] [place] [facility] [address] [id number] [place] [address]- 7262 Jul, [facility] [place] [facility] [address] [id number] [place] [address]- 4497 Jul, [facility] [place] [facility] [address] [id number] [place] [address]- 6489 Jul, [facility] [place] [facility] [address] [id number] [place] [address]- 1770 Jul, [facility] [place] [facility] [address] [id number] [place] [address]- 2730 27 Jul, 2013 [facility] [place] [facility] [address] [id number] [place] [address]- 3297 Jul, [facility] [place] [facility] [address] [id number] [place] [address]- 4326 Jul, [facility] [place] [facility] [address] [id number] [place] [address]- 8566 Jul, [facility] [place] [facility] [address] [id number] [place] [address]- 7[address] Jul, [facility] [place] [facility] [address] [id number] [place] [address]- 4354 Jul, [facility] [place] [facility] [address] [id number] [place] [address]- 1599 Jul, [facility] [place] [facility] [address] [id number] [place] [address]- 4773 Jul, [facility] [place] [facility] [address] [id number] [place] [address]- 2140 07 Jul, 2013 [facility] [place] [facility] [address] [id number] [place] [address]- 8431 10 Jun, 2013 [facility] [place] [facility] [address] [id number] [place] [address]- 4792 10 Jun, 2013 [facility] [place] [facility] [address] [id number] [place] [address]- 6790 Jun, [facility] [place] [facility] [address] [id number] [place] [address]- 5535 Jun, [facility] [place] [facility] [address] [id number] [place] [address]- 5776 May, [facility] [place] [facility] [address] [id number] [place] [address]- 3321 May, [facility] [place] [facility] [address] [id number] [place] [address]- 2561 May, [facility] [place] [facility] [address] [id number] [place] [address]- 4707 May, [facility] [place] [facility] [address] [id number] [place] [address]- 7102 May, [facility] [place] [facility] [address] [id number] [place] [address]- 5262 Mar, [facility] [place] [facility] [address] [id number] [place] [address]- 3184 Mar, [facility] [place] [facility] [address] [id number] [place] [address]- 7400 Mar, [facility] [place] [facility] [address] [id number] [place] [address]- 6424 Mar, [facility] [place] [facility] [address] [id number] [place] [address]- 9532 Mar, [facility] [place] [facility] [address] [id number] [place] [address]- 2847 Mar, [facility] [place] [facility] [address] [id number] [place] [address]- 9496 Feb, [facility] [place] [facility] [address] [id number] [place] [address]- 9713 Feb, [facility] [place] [facility] [address] [id number][place] [address]- 132[address] Feb, [facility] [place] [facility] [address] [id number][place] [address]- 2427 Feb, [facility] [place] [facility] [address] [id number] [place] [address]- 8056 Feb, [facility] [place] [facility] [address] [id number][place] [address]- [address]87 Feb, [facility] [place] [facility] [address] [id number][place] [address]- 6[address] Feb, [facility] [place] [facility] [address] [id number] [place] [address]- 7398 Feb, [facility] [place] [facility] [address] [id number] [place] [address]- 1755 Feb, [facility] [place] [facility] [address] [id number] [place] [address]- 8466 Feb, [facility] [place] [facility] [address] [id number] [place] [address]- 3276 Feb, [facility] [place] [facility] [address] [id number] [place] [address]- 1213 Feb, [facility] [place] [facility] [address] [id number] [place] [address]- 1394 Jan, [facility] [place] [facility] [address] [id number] [place] [address]- 9747 Jan, [facility] [place] [facility] [address] [id number] [place] [address]- 7907 Dec, [facility] [place] [facility] [address] [id number] [place] [address]- 0064 Dec, [facility] [place] [facility] [address] [id number] [place] [address]- 9772 Nov, [facility] [place] [facility] [address] [id number] [place] [address]- 7493 Nov, [facility] [place] [facility] [address] [id number] [place] [address]- 4594 Nov, [facility] [place] [facility] [address] [id number] [place] [address]- 9070 Nov, [facility] [place] [facility] [address] [id number] [place] [address]- 4576 Nov, [facility] [place] [facility] [address] [id number] [place] [address]- 4881 Oct, [facility] [place] [facility] [address] [id number] [place] [address]- 9508 September, [facility] [place] [facility] [address] [id number] [place] [address]- 2492 Aug, [facility] [address] [id number] [place] [address]- 5728 Jul, [facility] [place] [facility] [address] [id number] [place] [address]- 0369 Jul, [facility] [place] [facility] [address] [id number] [place] [address]- 8984 Jul, [facility] [address] [id number] [place] [address]- 8730 Jun, [facility] [place] [facility] [address] [id number] [place] [address]- 9762 Jun, [facility] [address] [id number] [place] [address]- 3574 Jun, [facility] [address] [id number] [place] [address]- 6811 Jun, [facility] [address] [id number] [place] [address]- 7902 Jun, [facility] [address] [id number] [place] [address]- 6726 May, [facility] [address] [id number] [place] [address]- 0661 May, [facility] [address] [id number] [place] [address]- 2654 Apr, [facility] [place] [facility] [address] [id number] [place] [address]- 2013 Apr, [facility] [place] [facility] [address] [id number] [place] [address]- 2386 Mar, [facility] [place] [facility] [address] [id number] [place] [address]- 6685 Mar, [facility] [place] [facility] [address] [id number][place] [address]- 6824 Mar, [facility] [place] [facility] [address] [id number] [place] [address]- 6007 Mar, [facility] [place] [facility] [address] [id number][place] [address]- 8865 Mar, [facility] [place] [facility] [address] [id number] [place] [address]- 2846 Mar, [facility] [place] [facility] [address] [id number] [place] [address]- 8555 Mar, [facility] [place] [facility] [id number] [place] [address], [place] [address]- 2335 Mar, [facility] [place] [facility] [address] [id number] [place] [address]- 1078 Mar, [facility] [place] [facility] [address] [facility] [id number], [place] [address]- 2873 Mar, [facility] [place] [facility] [address] [id number][place] [address]- 2571 Feb, [facility] [place] [facility] [address] [id number] [place] [address]- 3092 Feb, [facility] [place] [facility] [address] [facility] [id number][place] [address]- 3012 Feb, [facility] [place] [facility] [address] [id number][place] [address]- 8618 30 Feb, 2012 [facility] [place] [facility] [address] [id number], [place] [address]- 9069 Feb, [facility] [place] [facility] [address] [id number][place] [address]- 9851 Feb, [facility] [place] [facility] [address] [facility] [id number][place] [address]- 9453 Jan, [facility] [place] [facility] [address] [facility] [id number], [place] [address]- 8846 05 Sep2011 [facility] [place] [facility] [address] [id number] [place] [address]- 8680 Dec, [facility] [place] [facility] [address] [id number] [place] [address]- 6028 Dec, [facility] [place] [facility] [address] [id number] [place] [address]- 1712 Dec, [facility] [place] [facility] [address] [id number] [place] [address]- 4400 Nov, [facility] [place] [facility] [address] [id number] [place] [address]- 5350 September, [facility] [place] [facility] [address] [id number] [place] [address]- 0071 September, [facility] [place] [facility] [address] [id number] [place] [address]- 8299 September, [facility] [place] [facility] [address] [id number] [place] [address]- 6967 September, [facility] [place] [facility] [address] [id number] [place] [address]- 0713 Aug, [facility] [place] [facility] [address] [id number] [place] [address]- 8878 Aug, [facility] [place] [facility] [address] [id number] [place] [address]- 1260 Aug, [facility] [place] [facility] [address] [id number] [place] [address]- 6933 Aug, [facility] [place] [facility] [address] [id number] [place] [address]- 8160 Aug, [facility] [place] [facility] [address] [id number] [place] [address]- 6311 Jul, [facility] [place] [facility] [address] [id number] [place] [address]- 7097 05 Jul, 2011 [facility] [place] [facility] [address] [id number] [place] [address]- 0679 Jul, [facility] [address] [id number] [place] [address]- 9315 29 Jun, 2011 [facility] [place] [facility] [address] [id number] [place] [address]- 5956 17 Jun, 2011 [facility] [place] [facility] [address] [facility] [id number] [place] [address]- 5766 13 Jun, 2011 [facility] [place] [facility] [address] [id number] [place] [address]- 4086 10 Jun, 2011 [facility] [place] [facility] [address] [id number] [place] [address]- 5996 07 Jun, 2011 [facility] [place] [facility] [address] [facility] [id number] [place] [address]- 5541 Jun, [facility] [address] [id number] [place] [address]- 6140 Jun, [facility] [place] [facility] [address] [facility] [id number] [place] [address]- 4751 May, [facility] [address] [id number] [place] [address]- 0393 May, [facility] [place] [facility] [address] [facility] [id number] [place] [address]- 9610 May, [facility] [address] [facility] [id number] [place] [address]- 8491 May, [facility] [place] [facility] [address] [facility] [id number], [place] [address]- 9356 Apr, [facility] [place] [facility] [address] [id number] [place] [address]- 2863 Apr, [facility] [place] [facility] [address] [facility] [id number] [place] [address]- 5671 Mar, [facility] [place] [facility] [address] [id number] [place] [address]- 8110 Mar, [facility] [place] [facility] [address] [id number] [place] [address]- 8976 Mar, [facility] [address] [id number] [place] [address]- 4776 11 Nov, 2010 [facility] [place] [facility] [address] [id number] [place] [address]- 2546 13 May, 2010 [facility] [place] [facility] [address] [id number] [place] [address]- 0266 23 Apr, 2010 [facility] [place] [facility] [address] [id number] [place] [address] 2546 13 Apr, 2010 [facility] [place] [facility] [address] [id number] [place] [address]- 4326 Apr, [facility] [place] [facility] [address] [id number] [place] [address]- 1956 Apr, [facility] [place] [facility] [address] [id number] [place] [address]- 6690 Apr, [facility] [place] [facility] [address] [id number] [place] [address]- 8830 18 Mar, 2010 [facility] [place] [facility] [address] [id number] [place] [address]- 4189 08 Mar, 2010 [facility] [place] [facility] [address] [id number] [place] [address]- 9198 20 Feb, 2010 [facility] [place] [facility] [address] [id number] [place] [address]- 6078 14 Aug, 2009 [facility] [place] [facility] [address] [id number] [place] [address]- 4098 10 Jul, 2009 [facility] [place] [facility] [address] [id number] [place] [address]- 0286 17 Jun, 2009 [facility] [place] [facility] [address] [id number] [place] [address]- 2546 30 Apr, 2009 [facility] [place] [facility] [address] [id number] [place] [address] 2544 Apr, [facility] [address] [facility] [id number] [place] [address]- 2546 Mar, [facility] [address] [facility] [id number], [place] [address]- 2546 Mar, [facility] [address] [facility] [id number], [place] [address]- 2546 Feb, [facility] [address] [facility] [id number], [place] [address]- 2546 Dec, [facility] [address] [facility] [id number][place] [address]- 2546 Oct, IMMUNIZATIONS No Known Immunizations SOCIAL HISTORY Never Assessed REASON FOR VISIT Medication refill request PLAN OF CARE VITAL SIGNS MEDICATIONS Medication Instructions Dosage Frequency Start Date End Date Duration Status Klor-Con M20 20 MEQ Orally Once a day 1 tablet with food 24h 90 days Active Amlodipine Besylate 10 mg [...]
--- OUTSIDE RECORDS SUMMARY | 2018-09-17 11:45 | XMS REPORT ---
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 Name Role Phone DESIREE SPENCE Unavailable PROBLEMS Type Condition ICD9-CM Code [id number] Code Onset Dates Condition Status SNOMED Code Problem Vitamin D deficiency E55.9 Active 91238943 Problem Chronic frontal sinusitis J32.1 Active 02659592 Problem Hyponatremia E87.1 Active 98861340 Problem BMI 40.0-44.9, adult Z68.41 Active 226058973 Problem Seasonal allergies J30.2 Active 635588215 Problem Secondary pulmonary arterial hypertension I27.21 Active 16435706 Problem Other chronic gastritis without hemorrhage K29.50 Active 1430220 Problem Paroxysmal atrial fibrillation I48.0 Active 556531734 Problem Fasciculations of muscle R25.3 Active 72629939 Problem Depression, unspecified depression type F32.9 Active 23272660 Problem Mild intermittent asthma without complication J45.20 Active 015147981 Problem Chronic migraine G43.709 Active 55801212 Problem Primary insomnia F51.01 Active 545786722 Problem Generalized anxiety disorder F41.1 Active 113543480 Problem Elevated alkaline phosphatase level R74.8 Active 598087973 Problem Obstructive sleep apnea G47.33 Active 17121798 Problem Hidradenitis L73.2 Active 81843199 Problem Essential hypertension I10 Active 72154202 Problem Idiopathic peripheral neuropathy G60.9 Active 79384896 Problem Hyperlipidemia E78.5 Active 98651505 ALLERGIES No Information ENCOUNTERS Encounter Location Date Diagnosis [facility] [address] [address] Jan, [facility] [address], [place] [address] Dec, [facility] [address], [place] [address] Dec, Essential hypertension I10 [facility] [address], [place] [address] 84[address] Nov, Essential hypertension I10 [facility] [address] [address] Nov, [facility] [address], [place] [address] 57[address] Nov, Essential hypertension I10 and BMI 40.0-44.9, adult Z68.41 [facility] [address] [address] Oct, Essential hypertension I10 and Chronic kidney disease, unspecified CKD stage N18.9 [facility] [id number] [address] Oct, Essential hypertension I10 and Chronic kidney disease, unspecified CKD stage N18.9 [facility] [address] [address] Oct, [facility] [address], [place] [address] September, Medicare annual wellness visit, initial Z00.00 ; Mild intermittent asthma without complication J45.20 ; Generalized anxiety disorder F41.1 ; Depression, unspecified depression type F32.9 ; Paroxysmal atrial fibrillation I48.0 ; Obstructive sleep apnea G47.33 ; Hyponatremia E87.1 ; Need for hepatitis C screening test Z11.59 ; Encounter for immunization Z23 ; Secondary pulmonary arterial hypertension I27.21 and BMI 40.0-44.9, adult Z68.41 [facility] [address], [place] [address] 96[address] Aug, Essential hypertension I10 [facility] [address] [address] 09 Jun, 2017 Dysuria R30.0 ; UTI symptoms R39.9 and Candidiasis of breast B37.89 [facility] [address] [place] [id number] [place] [address]6101- 0576 09 Jun, 2017 Hyponatremia E87.1 [facility] [id number] [place] [address] 80341- 8499 Jun, Hyponatremia E87.1 [facility] [id number] [place] [address] 84339- 7307 Jun, Hyponatremia E87.1 [facility] [id number] [place] [address] 84760- 9168 Jun, [facility] [id number] [place] [address] 94633- 9060 May, Hyponatremia E87.1 [facility] [id number] [place] [address] 78944- 3979 May, Hyponatremia E87.1 [facility] [id number] [place] [address] 26318- 2761 May, Hyponatremia E87.1 [facility] [id number] [place] [address] 47526- 8964 May, Hyponatremia E87.1 [facility] [id number] [place] [address] 98049- 9079 Apr, Hyponatremia E87.1 ; Fasciculations of muscle R25.3 and Hyperlipidemia E78.5 [facility] [id number] [place] [address] 55195- 2972 Apr, Cough R05 ; Hyponatremia E87.1 ; Fasciculations of muscle R25.3 ; Primary insomnia F51.01 ; Essential hypertension I10 ; Hyperlipidemia E78.5 ; Screening for breast cancer Z12.31 and BMI 40.0-44.9, adult Z68.41 [facility] [id number] [place] [address] 28743- 0991 18 Apr, 2017 Essential hypertension I10 [facility] [id number] [place] [address] 05051- 7860 14 Mar, 2017 [facility] [address] [facility] [id number] [place] [address]- 4510 Mar, [facility] [address] [facility] [id number] [place] [address]- 3026 09 Mar, 2017 [facility] [id number] [place] [address]- 3571 Feb, [facility] [address] [facility] [id number] [place] [address]- 4238 Jan, [facility] [address] [facility] [id number] [place] [address]- 4218 Dec, Essential hypertension I10 [facility] [address] [facility] [id number] [place] [address]- 2759 Dec, [facility] [id number] [place] [address]- 3712 Dec, Essential hypertension I10 [facility] [address] [facility] [id number] [place] [address]- 8673 Nov, [facility] [id number] [place] [address]- 8176 Oct, Essential hypertension I10 [facility] [id number] [address] 6206 Oct, Essential hypertension I10 [facility] [id number] [place] [address]- 4265 Oct, [facility] [address] [facility] [id number], [place] [address]- 1499 September, [facility] [id number] [place] [address]- 0420 September, Essential hypertension I10 [facility] [address] [facility] [id number], [place] [address]- 5319 September, [facility] [address], [place] [address]- 3441 September, Essential hypertension I10 ; Hyperlipidemia E78.5 and Hyponatremia E87.1 [facility] [id number] [place] [address] 41311- 1551 September, Mild intermittent asthma without complication J45.20 ; Essential hypertension I10 ; Hyperlipidemia E78.5 ; Hyponatremia E87.1 and Dysuria R30.0 [facility] [id number] [place] [address] 52400- 2044 September, Other chronic gastritis without hemorrhage K29.50 ; Paroxysmal atrial fibrillation I48.0 and Essential hypertension I10 [facility] [id number] [place] [address] 89889- 4487 Aug, [facility] [id number] [place] [address] 96602- 9980 Jul, [facility] [id number] [place] [address] 63164- 2970 14 Jun, 2016 [facility] [id number] [place] [address] 60613 -0936 07 Jun, 2016 Dysuria R30.0 and Acute cystitis with hematuria N30.01 [facility] [id number] [place] [address] 17515- 4884 Jun, Essential hypertension I10 [facility] [id number] [place] [address] 80106- 7101 May, Paroxysmal atrial fibrillation I48.0 [facility] [id number] [place] [address] 55866- 2996 May, Other chronic gastritis without hemorrhage K29.50 [facility] [id number] [place] [address] 11162- 8893 May, [facility] [id number] [place] [address] 75995- 7161 May, Hyponatremia E87.1 ; Essential hypertension I10 and Other chronic gastritis without hemorrhage K29.50 [facility] [id number], [place] [address]- 0265 10 May, 2016 Hyponatremia E87.1 [facility] [id number] [place] [address] 33655- 6941 May, Hyponatremia E87.1 [facility] [id number] [place] [address] [id number] May, [facility] [id number] [place] [address] 35689- 0544 Apr, [facility] [id number] [place] [address] 69891- 5804 Apr, [facility] [id number] [place] [address] 37630- 7674 Mar, Essential hypertension I10 and Candidal intertrigo B37.2 [facility] [id number] [place] [address] 14717- 3488 Mar, Hyponatremia E87.1 [facility] [id number] [place] [address] 79868- 4035 Mar, [facility] [id number] [place] [address] 89627- 1447 Mar, Hyponatremia E87.1 [facility] [id number] [place] [address] 28122- 1717 Mar, Essential hypertension I10 ; Hyponatremia E87.1 ; Slurred speech R47.81 ; Paroxysmal atrial fibrillation I48.0 and Elevated blood sugar R73.9 [facility] [id number] [place] [address] 57660- 2150 Mar, [facility] [id number] [place] [address] 54703- 1658 Mar, [facility] [id number] [place] [address] 87635- 5091 Feb, [facility] [id number] [place] [address] 23101- 9303 Jan, [facility] [address], [place] [address]- 5095 Dec, [facility] [id number] [place] [address] 41502 -7112 Nov, Scratched by cat, initial encounter W55.03XA and Other injury of unspecified body region T14.8 [facility] [id number] [place] [address] 83657- 4275 Nov, [facility] [id number] [place] [address] 49962- 8780 Oct, [facility] [id number] [place] [address] 61754- 4627 September, [facility] [id number] [place] [address] 67879- 7052 Aug, Elevated alkaline phosphatase level R74.8 [facility] [id number] [place] [address] 93208- 4510 Jul, [facility] [id number] [place] [address] 25987- 6446 Jun, Essential hypertension I10 and Bright red blood per rectum K62.5 [facility] [id number] [place] [address] 86352- 4043 Jun, Elevated alkaline phosphatase level R74.8 [facility] [id number] [place] [address] 32937- 5496 Jun, [facility] [id number] [place] [address] 87062- 5094 May, Essential hypertension I10 ; Hyperlipidemia E78.5 and Well woman exam (no gynecological exam) Z00.00 [facility] [address] [place] [address] 49259- 4914 May, [facility] [id number] [place] [address] 43908- 9147 May, [facility] [id number] [place] [address] 55009- 2985 Mar, [facility] [id number] [place] [address] 13977- 0190 Mar, [facility] [id number] [place] [address] 11924- 6351 Mar, [facility] [id number] [place] [address] 555576- 1753 Feb, Acute recurrent maxillary sinusitis J01.01 ; Asthma, unspecified, unspecified status 493.90 ; Seasonal allergies J30.2 and Cat allergies J30.81 [facility] [id number] [place] [address] 55041- 2892 Feb, Upper respiratory tract infection, unspecified upper respiratory infection J06.[address] 18938- 1542 Jan, [facility] [id number] [place] [address] 574401- 6991 Jan, Dysphagia 787.20 and GERD (gastroesophageal reflux disease) 530.81 [facility] [id number] [place] [address] 17225- 2874 Jan, Breast lesion 611.9 [facility] [id number] [place] [address] 859627- 0157 Dec, Breast lesion 611.9 [facility] [id number] [place] [address] 24657- 7234 Dec, Breast lesion 611.9 [facility] [id number] [place] [address] 140812- 9486 Nov, Fatigue 780.79 and Hyperlipidemia 272.4 [facility] [id number] [place] [address] 88333- 7112 Nov, Hypertension 401.9 ; Hyperlipidemia 272.4 ; Chronic frontal sinusitis 473.1 and Fatigue 780.79 [facility] [address] [id number] [place] [address]- 3586 Nov, [facility] [address] [id number] [place] [address]- 7729 Oct, [facility] [place] [facility] [address] [facility] [id number] [place] [address]- 1700 Oct, [facility] [address] [id number], [place] [address]- 9812 September, [facility] [address] [id number] [place] [address]- 1308 September, [facility] [address] [facility] [id number] [place] [address]- 8736 September, [facility] [address] [facility] [id number] [place] [address]- 4042 September, [facility] [address] [facility] [id number], [place] [address]- 9159 Aug, [facility] [address] [facility] [id number] [place] [address]- 0885 Aug, [facility] [address] [facility] [id number] [place] [address]- 1574 Aug, [facility] [id number], [place] [address]- 5151 Jul, [facility] [place] [facility] [address] [facility] [id number], [place] [address]- 7940 Jul, [facility] [place] [facility] [address] [facility] [id number] [place] [address]- 4734 Jul, [facility] [place] [facility] [address] [facility] [id number], [place] [address]- 9675 Jul, [facility] [place] [facility] [address] [facility] [id number] [place] [address]- 4539 18 Jul, 2014 [facility] [place] [facility] [address] [facility] [id number] [place] [address]- 3402 17 Jul, 2014 [facility] [place] [facility] [address] [id number] [place] [address]- 6949 17 Jul, 2014 [facility] [place] [facility] [address] [id number] [place] [address]- 8711 16 Jul, 2014 [facility] [place] [facility] [address] [id number] [place] [address]- 2576 16 Jul, 2014 [facility] [place] [facility] [address] [id number] [place] [address]- 0733 Jul, [facility] [place] [facility] [address] [id number] [place] [address]- 5416 Jul, [facility] [place] [facility] [address] [id number] [place] [address]- 2145 Jul, [facility] [place] [facility] [address] [id number] [place] [address]- 0623 Jul, [facility] [place] [facility] [address] [id number] [place] [address]- 4580 Jul, [facility] [place] [facility] [address] [id number] [place] [address]- 6419 Jul, [facility] [place] [facility] [address] [facility] [id number] [place] [address]- 7442 Jun, [facility] [place] [facility] [address] [id number] [place] [address]- 2546 Jun, [facility] [place] [facility] [address] [facility] [id number] [place] [address]- 2546 Jun, [facility] [place] [facility] [address] [id number] [place] [address]- 2540 Jun, [facility] [place] [facility] [address] [facility] [id number] [place] [address]- 2546 May, [facility] [place] [facility] [address] [id number] [place] [address]- 2279 May, [facility] [place] [facility] [address] [id number] [place] [address]- 9503 May, [facility] [place] [facility] [address] [id number] [place] [address]- 4975 May, [facility] [place] [facility] [address] [id number] [place] [address]- 7362 Apr, [facility] [place] [facility] [address] [id number] [place] [address]- 1317 Apr, [facility] [place] [facility] [address] [id number] [place] [address]- 0337 Apr, [facility] [place] [facility] [address] [id number] [place] [address]- 4682 Apr, [facility] [place] [facility] [address] [id number] [place] [address]- 8776 Apr, [facility] [place] [facility] [address] [id number] [place] [address]- 9029 Apr, [facility] [place] [facility] [address] [id number] [place] [address]- 4679 Mar, [facility] [place] [facility] [address] [id number] [place] [address]- 2619 Mar, [facility] [place] [facility] [address] [id number] [place] [address]- 9458 Mar, [facility] [place] [facility] [address] [id number], [place] [address]- 4525 Mar, [facility] [place] [facility] [address] [id number] [place] [address]- 9989 Mar, [facility] [place] [facility] [address] [id number] [place] [address]- 6232 Mar, [facility] [place] [facility] [address] [id number] [place] [address]- 1701 Mar, [facility] [place] [facility] [address] [id number], [place] [address]- 1108 Mar, [facility] [place] [facility] [address] [id number] [place] [address]- 3535 Mar, [facility] [place] [facility] [address] [id number], [place] [address]- 0249 Mar, [facility] [place] [facility] [address] [facility] [id number] [place] [address]- 6573 Mar, [facility] [place] [facility] [address] [id number], [place] [address]- 0365 Mar, [facility] [place] [facility] [address] [facility] [id number] [place] [address]- 1412 Mar, [facility] [place] [facility] [address] [facility] [id number] [place] [address]- 9907 Mar, [facility] [place] [facility] [address] [facility] [id number], [place] [address]- 4845 Mar, [facility] [place] [facility] [address] [facility] [id number], [place] [address]- 3431 Mar, [facility] [place] [facility] [address] [facility] [id number], [place] [address]- 8863 Mar, [facility] [place] [facility] [address] [facility] [id number], [place] [address]- 8557 Feb, [facility] [place] [facility] [address] [facility] [id number], [place] [address] Feb, [facility] [place] [facility] [address] [facility] [id number][place] [address] Feb, [facility] [place] [facility] [address] [id number], [place] [address] Feb, [facility] [place] [facility] [address] [facility] [id number], [place] [address] Feb, [facility] [place] [facility] [address] [facility] [id number], [place] [address] Feb, [facility] [place] [facility] [address] [id number] [place] [address] Feb, [facility] [place] [facility] [address] [id number] [place] [address] Feb, [facility] [place] [facility] [address] [id number] [place] [address] Feb, [facility] [place] [facility] [address] [id number] [place] [address] Feb, [facility] [place] [facility] [address] [id number] [place] [address] Feb, [facility] [place] [facility] [address] [id number] [place] [address] Feb, [facility] [place] [facility] [address] [id number] [place] [address] Feb, [facility] [place] [facility] [address] [id number] [place] [address]- [address] Feb, [facility] [place] [facility] [address] [id number] [place] [address] Feb, [facility] [place] [facility] [address] [id number] [place] [address] Feb, [facility] [place] [facility] [address] [id number] [place] [address] Feb, [facility] [place] [facility] [address] [id number] [place] [address]35 Feb, [facility] [place] [facility] [address] [id number] [place] [address] 35[address] Feb, [facility] [place] [facility] [address] [id number] [place] [address] 30 Jan, 2014 [facility] [place] [facility] [address] [id number] [place] [address] 30 Jan, 2014 [facility] [place] [facility] [address] [id number] [place] [address] Jan, [facility] [place] [facility] [address] [id number] [place] [address] 29 Jan, 2014 [facility] [place] [facility] [address] [id number] [place] [address]14 Jan, [facility] [place] [facility] [address] [id number] [place] [address] Jan, [facility] [place] [facility] [address] [id number] [place] [address] Jan, [facility] [place] [facility] [address] [id number] [place] [address] Jan, [facility] [place] [facility] [address] [id number] [place] [address] Jan, [facility] [place] [facility] [address] [id number] [place] [address] Dec, [facility] [place] [facility] [address] [id number] [place] [address] Dec, [facility] [place] [facility] [address] [id number] [place] [address] Dec, [facility] [place] [facility] [address] [id number] [place] [address] Dec, [facility] [place] [facility] [address] [id number], [place] [address] Dec, [facility] [place] [facility] [address] [id number], [place] [address] Dec, [facility] [place] [facility] [address] [id number] [place] [address] Dec, [facility] [place] [facility] [address] [id number] [place] [address] Dec, [facility] [place] [facility] [address] [address] [id number] [place] [address] Dec, [facility] [place] [facility] [address] [id number] [place] [address] 4056 Nov, [facility] [place] [facility] [address] [id number] [place] [address] 45[address] Nov, [facility] [place] [facility] [address] [id number] [place] [address] 3949 Nov, [facility] [place] [facility] [address] [id number] [place] [address]- 1766 Nov, [facility] [place] [facility] [address] [id number] [place] [address]- 4082 Nov, [facility] [place] [facility] [address] [id number] [place] [address]- 3052 Nov, [facility] [place] [facility] [address] [id number] [place] [address] 1707 Oct, [facility] [place] [facility] [address] [id number] [place] [address] 2262 Oct, [facility] [place] [facility] [address] [id number] [place] [address] 0371 Oct, [facility] [place] [facility] [address] [id number] [place] [address] 3113 Oct, [facility] [place] [facility] [address] [id number] [place] [address] Oct, [facility] [place] [facility] [address] [id number] [place] [address] 3724 Oct, [facility] [place] [facility] [address] [id number] [place] [address] 1522 Oct, [facility] [place] [facility] [address] [id number] [place] [address]- 0466 Oct, [facility] [place] [facility] [address] [id number] [place] [address]- 0075 Oct, [facility] [place] [facility] [address] [id number] [place] [address]- 5304 Oct, [facility] [place] [facility] [address] [id number] [place] [address]- 3476 Oct, [facility] [place] [facility] [address] [id number] [place] [address]- 1608 Oct, [facility] [place] [facility] [address] [id number] [place] [address]- 2355 Oct, [facility] [place] [facility] [address] [id number] [place] [address]- 7154 Oct, [facility] [place] [facility] [address] [id number] [place] [address]- 5874 September, [facility] [place] [facility] [address] [id number] [place] [address]- 1694 September, [facility] [place] [facility] [address] [id number] [place] [address] 9711 September, [facility] [place] [facility] [address] [id number] [place] [address]- 2926 September, [facility] [place] [facility] [address] [id number] [place] [address]- 0908 September, [facility] [place] [facility] [address] [id number] [place] [address]- 8312 September, [facility] [place] [facility] [address] [id number] [place] [address]- 5410 September, [facility] [place] [facility] [address] [id number] [place] [address]- 8270 September, [facility] [place] [facility] [address] [id number] [place] [address]- 2664 September, [facility] [place] [facility] [address] [id number] [place] [address]- 4191 September, [facility] [place] [facility] [address] [id number] [place] [address]- 4978 September, [facility] [place] [facility] [address] [id number] [place] [address]- 2546 September, [facility] [place] [facility] [address] [id number] [place] [address]- 0081 September, [facility] [place] [facility] [address] [id number] [place] [address]- 3639 September, [facility] [place] [facility] [address] [id number] [place] [address]- 2946 September, [facility] [place] [facility] [address] [id number] [place] [address]- 6161 September, [facility] [place] [facility] [address] [id number] [place] [address]- 3241 September, [facility] [place] [facility] [address] [id number] [place] [address]- 2255 September, [facility] [place] [facility] [address] [id number] [place] [address]- 5210 September, [facility] [place] [facility] [address] [id number] [place] [address]- 9391 Aug, [facility] [place] [facility] [address] [id number] [place] [address]- 4660 Aug, [facility] [place] [facility] [address] [id number] [place] [address]- 1239 Jul, [facility] [place] [facility] [address] [id number] [place] [address]- 8567 Jul, [facility] [place] [facility] [address] [id number] [place] [address]- 7972 Jul, [facility] [place] [facility] [address] [id number] [place] [address]- 0779 Jul, [facility] [place] [facility] [address] [id number] [place] [address]- 2876 Jul, [facility] [place] [facility] [address] [id number] [place] [address] 2102 Jul, [facility] [place] [facility] [address] [id number] [place] [address]- 2189 27 Jul, 2013 [facility] [place] [facility] [address] [id number] [place] [address]- 7253 Jul, [facility] [place] [facility] [address] [id number] [place] [address]- 8806 Jul, [facility] [place] [facility] [address] [id number] [place] [address]- 3217 Jul, [facility] [place] [facility] [address] [id number] [place] [address]- 2336 Jul, [facility] [place] [facility] [address] [id number] [place] [address]- 1550 14 Jul, 2013 [facility] [place] [facility] [address] [id number] [place] [address]- 9033 Jul, [facility] [place] [facility] [address] [id number] [place] [address]- 2694 Jul, [facility] [place] [facility] [address] [id number] [place] [address]- 6765 10 Jun, 2013 [facility] [place] [facility] [address] [id number] [place] [address]- 3941 Jun, [facility] [place] [facility] [address] [id number] [place] [address]- 8503 Jun, [facility] [place] [facility] [address] [id number] [place] [address]- 8802 Jun, [facility] [place] [facility] [address] [id number] [place] [address]- 4341 May, [facility] [place] [facility] [address] [id number] [place] [address]- 7920 May, [facility] [place] [facility] [address] [id number] [place] [address]- 4715 May, [facility] [place] [facility] [address] [id number] [place] [address]- 5121 May, [facility] [place] [facility] [address] [id number] [place] [address]- 6093 May, [facility] [place] [facility] [address] [id number] [place] [address]- 4450 Mar, [facility] [place] [facility] [address] [id number] [place] [address]- 7471 Mar, [facility] [place] [facility] [address] [id number] [place] [address]- 5847 Mar, [facility] [place] [facility] [address] [id number] [place] [address]- 2855 Mar, [facility] [place] [facility] [address] [id number] [place] [address]- 9877 Mar, [facility] [place] [facility] [address] [id number] [place] [address]- 9097 Mar, [facility] [place] [facility] [address] [id number], [place] [address]- 2820 Feb, [facility] [place] [facility] [address] [id number] [place] [address]- 5244 Feb, [facility] [place] [facility] [address] [id number], [place] [address]- 2240 Feb, [facility] [place] [facility] [address] [id number], [place] [address]- 0854 Feb, [facility] [place] [facility] [address] [id number], [place] [address]- 6486 Feb, [facility] [place] [facility] [address] [id number], [place] [address]- 7917 Feb, [facility] [place] [facility] [address] [id number], [place] [address]- 2802 Feb, [facility] [place] [facility] [address] [id number], [place] [address]- 1448 Feb, [facility] [place] [facility] [address] [id number] [place] [address] 2549 Feb, [facility] [address] [id number] [place] [address]- 9045 Feb, [facility] [place] [facility] [address] [id number] [place] [address]- 0803 Feb, [facility] [address] [id number] [place] [address]- 0651 Feb, [facility] [place] [facility] [address] [id number] [place] [address]- 5841 Jan, [facility] [place] [facility] [address] [id number] [place] [address]- 5389 Jan, [facility] [place] [facility] [address] [id number] [place] [address]- 0698 Dec, [facility] [place] [facility] [address] [id number] [place] [address]- 6595 Dec, [facility] [place] [facility] [address] [id number] [place] [address]- 5835 Nov, [facility] [place] [facility] [address] [id number] [place] [address]- 1504 Nov, [facility] [place] [facility] [address] [id number] [place] [address]- 1935 Nov, [facility] [place] [facility] [address] [id number] [place] [address]- 7578 Nov, [facility] [place] [facility] [address] [id number] [place] [address]- 2543 Nov, [facility] [place] [facility] [address] [id number] [place] [address]- 4232 Oct, [facility] [place] [facility] [address] [id number] [place] [address]- 2546 September, [facility] [place] [facility] [address] [id number] [place] [address]- 6751 Aug, [facility] [place] [facility] [address] [id number] [place] [address]- 5607 Jul, [facility] [address] [id number] [place] [address]- 6696 Jul, [facility] [place] [facility] [address] [id number] [place] Jul, [facility] [place] [facility] [address] [id number] [place] [address]- 4512 Jun, [facility] [address] [id number] [place] [address]- 6472 Jun, [facility] [place] [facility] [address] [id number] [place] [address]- 0620 Jun, [facility] [address] [id number] [place] [address]- 4473 Jun, [facility] [address] [id number] [place] [address]- 1391 Jun, [facility] [address] [id number] [place] [address]- 4562 May, [facility] [address] [id number] [place] [address]- 3953 May, [facility] [address] [id number] [place] [address]- 6580 Apr, [facility] [address] [id number] [place] [address]- 1516 Apr, [facility] [place] [facility] [address] [id number] [place] [address]- 0903 Mar, [facility] [place] [facility] [address] [id number] [place] [address] Mar, [facility] [place] [facility] [address] [id number] [place] [address]- 6910 Mar, [facility] [place] [facility] [address] [id number], [place] [address]- 1488 Mar, [facility] [place] [facility] [address] [id number] [place] [address]- 3240 Mar, [facility] [place] [facility] [address] [id number], [place] [address]- 8811 Mar, [facility] [place] [facility] [address] [id number] [place] [address]- 5977 Mar, [facility] [place] [facility] [address] [id number] [place] [address]- 8416 Mar, [facility] [place] [facility] [address] [id number] [place] [address], [place] [address]- 9554 Mar, [facility] [place] [facility] [address] [id number] [place] [address]- 3461 Mar, [facility] [place] [facility] [address] [facility] [id number] [place] [address]- 8412 Feb, [facility] [place] [facility] [address] [id number], [place] [address]- 6149 Feb, [facility] [place] [facility] [address] [id number] [place] [address]- 6105 Feb, [facility] [place] [facility] [address] [facility] [id number] [place] [address]- 8319 Feb, [facility] [place] [facility] [address] [facility] [id number], [place] [address]- 5663 Feb, [facility] [place] [facility] [address] [id number], [place] [address]- 7210 Feb, [facility] [place] [facility] [address] [id number], [place] [address]- 9472 Jan, [facility] [place] [facility] [address] [facility] [id number], [place] [address]- 4127 Jan, [facility] [place] [facility] [address] [facility] [id number][place] 4624 Dec, [facility] [place] [facility] [address] [id number] [place] [address]- 0905 Dec, [facility] [place] [facility] [address] [id number] [place] [address]- 6325 Dec, [facility] [place] [facility] [address] [id number] [place] [address]- 3626 Nov, [facility] [place] [facility] [address] [id number] [place] [address]- 6593 September, [facility] [place] [facility] [address] [id number] [place] [address]- 6703 September, [facility] [place] [facility] [address] [id number] [place] [address]- 7891 September, [facility] [place] [facility] [address] [id number] [place] [address]- 8137 September, [facility] [place] [facility] [address] [id number] [place] [address]- 8297 Aug, [facility] [place] [facility] [address] [id number] [place] [address]- 2372 Aug, [facility] [place] [facility] [address] [id number] [place] [address]- 6580 Aug, [facility] [place] [facility] [address] [id number] [place] [address]- 7078 Aug, [facility] [place] [facility] [address] [id number] [place] [address]- 9373 Aug, [facility] [place] [facility] [address] [id number] [place] [address]- 9031 Jul, [facility] [place] [facility] [address] [id number] [place] [address]- 9669 Jul, [facility] [place] [facility] [address] [id number] [place] [address]- 9125 Jul, [facility] [place] [facility] [address] [id number] [place] [address]- 5778 29 Jun, 2011 [facility] [address] [id number] [place] [address]- 4056 17 Jun, 2011 [facility] [place] [facility] [address] [id number] [place] [address]- 9096 13 Jun, 2011 [facility] [place] [facility] [address] [facility] [id number] [place] [address]- 0186 10 Jun, 2011 [facility] [place] [facility] [address] [id number] [place] [address]- 9506 07 Jun, 2011 [facility] [place] [facility] [address] [id number] [place] [address]- 6893 Jun, [facility] [place] [facility] [address] [facility] [id number] [place] [address]- 5505 Jun, [facility] [address] [id number] [place] [address]- 2922 May, [facility] [place] [facility] [address] [facility] [id number] [place] [address]- 0847 May, [facility] [place] [facility] [address] [id number] [place] [address]- 7446 May, [facility] [place] [facility] [address] [facility] [id number] [place] [address]- 5359 May, [facility] [address] [facility] [id number] [place] [address]- 4451 Apr, [facility] [place] [facility] [address] [id number], [place] [address]- 0651 Apr, [facility] [place] [facility] [address] [facility] [id number] [place] [address]- 0988 Mar, [facility] [place] [facility] [address] [facility] [id number] [place] [address]- 1223 Mar, [facility] [place] [facility] [address] [id number] [place] [address]- 8363 Mar, [facility] [place] [facility] [address] [id number] [place] [address] 2547 11 Nov, 2010 [facility] [address] [id number] [place] [address]- 1586 13 May, 2010 [facility] [place] [facility] [address] [id number] [place] [address]- 0476 23 Apr, 2010 [facility] [place] [facility] [address] [id number] [place] [address] 2546 13 Apr, 2010 [facility] [place] [facility] [address] [id number] [place] [address] 2549 13 Apr, 2010 [facility] [place] [facility] [address] [id number] [place] [address]- 3876 Apr, [facility] [place] [facility] [address] [id number] [place] [address]- 2773 Apr, [facility] [place] [facility] [address] [id number] [place] [address]- 1064 Mar, [facility] [address] [id number] [place] [address]- 6919 08 Mar, 2010 [facility] [address] [id number] [place] [address]- 0976 Feb, [facility] [address] [id number] [place] [address]- 2260 14 Aug, 2009 [facility] [place] [facility] [address] [id number] [place] [address]- 5062 Jul, [facility] [place] [facility] [address] [id number] [place] [address]- 2545 17 Jun, 2009 [facility] [place] [facility] [address] [id number] [place] [address]- 2546 30 Apr, 2009 [facility] [place] [facility] [address] [id number] [place] [address]- 2546 07 Apr, 2009 [facility] [place] [facility] [address] [id number] [place] [address]- 2542 Mar, [facility] [address] [facility] [id number] [place] [address]- 2546 Mar, [facility] [address] [facility] [id number], [place] [address]- 2546 Feb, [facility] [address] [facility] [id number], [place] [address]- 2546 Dec, [facility] [address] [facility] [id number], [place] [address]- 2546 Oct, IMMUNIZATIONS No Known Immunizations SOCIAL HISTORY Never Assessed REASON FOR VISIT Lab (walk-in) PLAN OF CARE VITAL SIGNS MEDICATIONS Unknown Medications RESULTS No Results PROCEDURES Procedure Date Ordered Result Body Site LAB NOT BILLED BY [facility] October 31, 2017 URINALYSIS, AUTO, W/O SCOPE October 31, 2017 VENIPUNCT, ROUTINE* October 31, 2017 INSTRUCTIONS MEDICATIONS ADMINISTERED No Known Medications MEDICAL (GENERAL) HISTORY Type Description Date Medical History hypertension Medical History neuropathy Medical History depression Medical History anxiety Medical History Hyposmolality and/or hyponatremia Surgical History cleaned out left side of sinuses 2013 Surgical History colonscopy 09/03/15 Hospitalization History cellulitis 09/2013 Hospitalization History surgery 2013 Hospitalization History A Fib--[facility] 03/08/2016 Hospitalization History acute chest pain, hypertensive urgency, paroxsysmal htn-[facility] 05/10/16
--- OUTSIDE RECORDS SUMMARY | 2018-09-17 11:46 | XMS REPORT ---
Author Author JORDY DESIREE [facility] Address [address] [place] [address] Care Team Providers Care Application Security Specialist Name Role Phone DESIREE SPENCE Unavailable PROBLEMS Type Condition ICD9-CM Code LLY13-CB Code Onset Dates Condition Status SNOMED Code Problem Vitamin D deficiency E55.9 Active 92720381 Problem Chronic frontal sinusitis J32.1 Active 56937915 Problem Hyponatremia E87.1 Active 57362243 Problem BMI 40.0-44.9, adult Z68.41 Active 766548421 Problem Seasonal allergies J30.2 Active 123562698 Problem Secondary pulmonary arterial hypertension I27.21 Active 58442102 Problem Other chronic gastritis without hemorrhage K29.50 Active 9549360 Problem Paroxysmal atrial fibrillation I48.0 Active 060772957 Problem Fasciculations of muscle R25.3 Active 63663182 Problem Depression, unspecified depression type F32.9 Active 02975260 Problem Mild intermittent asthma without complication J45.20 Active 580154722 Problem Chronic migraine G43.709 Active 14733169 Problem Primary insomnia F51.01 Active 404880690 Problem Generalized anxiety disorder F41.1 Active 478559549 Problem Elevated alkaline phosphatase level R74.8 Active 614410529 Problem Obstructive sleep apnea G47.33 Active 47875774 Problem Hidradenitis L73.2 Active 07780508 Problem Essential hypertension I10 Active 33646764 Problem Idiopathic peripheral neuropathy G60.9 Active 49665926 Problem Hyperlipidemia E78.5 Active 75674588 ALLERGIES No Information ENCOUNTERS Encounter Location Date Diagnosis [facility] [address], [place] [address] Jan, [facility] [address], [place] [address] 8898 Dec, [facility] [address], [place] [address]- 6235 Dec, [place] [id number] [place] [address] 93711- 2831 Dec, Essential hypertension I10 [place] [address] [place] [id number] [place] [address] 51927- 4953 Nov, Essential hypertension I10 [facility] [address] [id number] [place] [address] 30892- 8952 Nov, [facility] [address] [id number] [place] [address] 46429- 0008 Nov, Essential hypertension I10 and BMI 40.0-44.9, adult Z68.41 [facility] [id number] [place] [address] 38346- 9708 Oct, Essential hypertension I10 and Chronic kidney disease, unspecified CKD stage N18.9 [facility] [address] [id number] [place] [address] 40342- 6321 Oct, Essential hypertension I10 and Chronic kidney disease, unspecified CKD stage N18.9 [facility] [address] [id number] [place] [address] 91136- 4394 Oct, [facility] [id number] [place] [address] 25131- 6408 September, Medicare annual wellness visit, initial Z00.00 ; Mild intermittent asthma without complication J45.20 ; Generalized anxiety disorder F41.1 ; Depression, unspecified depression type F32.9 ; Paroxysmal atrial fibrillation I48.0 ; Obstructive sleep apnea G47.33 ; Hyponatremia E87.1 ; Need for hepatitis C screening test Z11.59 ; Encounter for immunization Z23 ; Secondary pulmonary arterial hypertension I27.21 and BMI 40.0-44.9, adult Z68.41 [place] [id number] [place] [address] 49448- 6610 Aug, Essential hypertension I10 [facility] [id number] [place] [address] 60263 -9655 Jun, Dysuria R30.0 ; UTI symptoms R39.9 and Candidiasis of breast B37.89 [facility] [id number] [place] [address] 77613- 4451 Jun, Hyponatremia E87.1 [facility] [id number] [place] [address] 71831- 2932 Jun, Hyponatremia E87.1 [facility] [id number] [place] [address] 44007- 1831 Jun, Hyponatremia E87.1 [facility] [id number] [place] [address] 39982- 6942 Jun, [facility] [id number] [place] [address] 06537- 5456 May, Hyponatremia E87.1 [facility] [id number] [place] [address] 03075- 7619 May, Hyponatremia E87.1 [place] [id number] [place] [address] 96784- 7887 May, Hyponatremia E87.1 [facility] [id number] [place] [address] 68600- 8357 May, Hyponatremia E87.1 [facility] [id number] [place] [address] 96100- 6988 Apr, Hyponatremia E87.1 ; Fasciculations of muscle R25.3 and Hyperlipidemia E78.5 [place] [id number] [place] [address] 89294- 4828 Apr, Cough R05 ; Hyponatremia E87.1 ; Fasciculations of muscle R25.3 ; Primary insomnia F51.01 ; Essential hypertension I10 ; Hyperlipidemia E78.5 ; Screening for breast cancer Z12.31 and BMI 40.0-44.9, adult Z68.41 [place] [id number] [place] [address] 46438- 3767 Apr, Essential hypertension I10 [facility] [address] [facility] [id number] [place] [address]- 9728 14 Mar, 2017 [facility] [address] [facility] [id number] [place] [address]- 0704 Mar, [facility] [address] [place] [id number] [place] [address]- 9835 Mar, [facility] [address] [facility] [id number] [place] [address]- 6190 Feb, [facility] [address] [facility] [id number] [place] [address]- 3524 Jan, [facility] [address] [facility] [id number] [place] [address]- 5348 14 Dec, 2016 Essential hypertension I10 [facility] [address] [place] [address]- 6824 Dec, [facility] [id number] [place] [address]- 2761 Dec, Essential hypertension I10 [facility] [address] [id number] [place] [address]- 4388 Nov, [facility] [address], [place] [address]- 5439 Oct, Essential hypertension I10 [facility] [address] [place] [address]- 5534 Oct, Essential hypertension I10 [facility] [address] [facility] [id number], [place] [address]- 4248 Oct, [facility] [address] [facility] [id number] [place] [address]- 0504 September, [facility] [id number], [place] [address]- 8163 September, Essential hypertension I10 [facility] [id number], [place] [address]- 9398 September, [facility] [address] [place] [address] 53043- 6689 September, Essential hypertension I10 ; Hyperlipidemia E78.5 and Hyponatremia E87.1 [facility] [id number] [place] [address] 20645- 8621 September, Mild intermittent asthma without complication J45.20 ; Essential hypertension I10 ; Hyperlipidemia E78.5 ; Hyponatremia E87.1 and Dysuria R30.0 [facility] [id number] [place] [address] 95703- 5232 September, Other chronic gastritis without hemorrhage K29.50 ; Paroxysmal atrial fibrillation I48.0 and Essential hypertension I10 [place] [id number] [place] [address] 67646- 9514 Aug, [place] [id number] [place] [address] 71951- 5738 Jul, [facility] [id number] [place] [address] 98861- 4914 14 Jun, 2016 [facility] [id number] [place] [address] 66686 -4941 07 Jun, 2016 Dysuria R30.0 and Acute cystitis with hematuria N30.01 [facility] [id number] [place] [address] 13101- 8816 Jun, Essential hypertension I10 [facility] [id number] [place] [address] 43934- 4475 May, Paroxysmal atrial fibrillation I48.0 [facility] [id number] [place] [address] 22071- 7348 May, Other chronic gastritis without hemorrhage K29.50 [facility] [id number] [place] [address] 40990- 0266 May, [facility] [id number] [place] [address] 80776- 7742 May, Hyponatremia E87.1 ; Essential hypertension I10 and Other chronic gastritis without hemorrhage K29.50 [facility] [address] 55964- 4391 May, Hyponatremia E87.1 [facility] [address] [id number] [place] [address] 19508- 0187 May, Hyp[address]atremia E87.1 [facility] [address] [id number] May, [facility] [address] 65430- 2863 16 Apr, 2016 [facility] [address] 34510- 2385 Apr, [facility] [address] 93076- 9233 Mar, Essential hypertension I10 and Candidal intertrigo B37.2 [facility] [id number] [place] [address] 91581- 5394 Mar, Hyponatremia E87.1 [facility] [address] 07149- 5413 Mar, [facility] [address] 15120- 1771 Mar, Hyponatremia E87.1 [facility] [id number] [place] [address] 65422- 1714 Mar, Essential hypertension I10 ; Hyponatremia E87.1 ; Slurred speech R47.81 ; Paroxysmal atrial fibrillation I48.0 and Elevated blood sugar R73.9 [facility] [address] 63019- 1765 Mar, [facility] [id number] [place] [address] 92624- 1204 Mar, [facility] [address] 83650- 3737 Feb, [facility] [id number] [place] [address] 93944- 6023 Jan, [facility] [id number] [place] [address] 24899- 5963 Dec, [facility] [id number] [place] [address] 49895 -0192 Nov, Scratched by cat, initial encounter W55.03XA and Other injury of unspecified body region T14.8 [facility] [id number] [place] [address] 90848- 5736 Nov, [facility] [id number] [place] [address] 99566- 3477 Oct, [place] [id number] [place] [address] 46149- 5803 September, [facility] [id number] [place] [address] 87337- 1988 Aug, Elevated alkaline phosphatase level R74.8 [place] [address] [place] [id number] [place] [address] 31486- 0765 Jul, [facility] [address] [id number] [place] [address] 17913- 7096 Jun, Essential hypertension I10 and Bright red blood per rectum K62.5 [place] [address] [id number] [place] [address] 56333- 7148 Jun, Elevated alkaline phosphatase level R74.8 [facility] [address] [id number] [place] [address] 50277- 5812 Jun, [facility] [address] [id number] [place] [address] 87657- 6413 May, Essential hypertension I10 ; Hyperlipidemia E78.5 and Well woman exam (no gynecological exam) Z00.00 [place] [address] [place] [id number] [place] [address] 95867- 4082 May, [place] [id number] [place] [address] 27565- 5605 May, [place] [address] [place] [id number] [place] [address] 720779- 1360 Mar, [place] [address] [place] [id number] [place] [address] 29648- 4506 Mar, [place] [address] [place] [id number] [place] [address] 824700- 6273 Mar, [place] [address] [place] [place] [id number] [place] [address] 93196- 5951 Feb, Acute recurrent maxillary sinusitis J01.01 ; Asthma, unspecified, unspecified status 493.90 ; Seasonal allergies J30.2 and Cat allergies J30.81 [place] [address] [place] [id number] [place] [address] 29252- 2274 Feb, Upper respiratory tract infection, unspecified upper respiratory infection J06.9 [place] [address] [place] [id number] [place] [address] 82437- 3253 Jan, [place] [address] [place] [id number] [place] [address] 51835- 9733 Jan, Dysphagia 787.20 and GERD (gastroesophageal reflux disease) 530.81 [place] [address] [place] [id number] [place] [address] 12591- 4098 Jan, Breast lesion 611.9 [place] [address] [place] [id number] [place] [address] 22115- 3300 Dec, Breast lesion 611.9 [place] [address] [place] [id number] [place] [address] 749203- 8239 Dec, Breast lesion 611.9 [place] [address] [id number] [place] [address] 409503- 4898 Nov, Fatigue 780.79 and Hyperlipidemia 272.4 [place] [address] [place] [address]- 1247 Nov, Hypertension 401.9 ; Hyperlipidemia 272.4 ; Chronic frontal sinusitis 473.1 and Fatigue 780.79 [facility] [address] [facility] [id number], [place] [address]- 0696 Nov, [facility] [address], [place] [address]- 7569 Oct, [facility] [address] [facility] [id number], [place] [address]- 6664 Oct, [facility] [address] [place] [address]- 6532 September, [facility] [id number] [place] [address] 64073- 7576 September, [facility] [id number], [place] [address]- 5186 September, [facility] [address], [place] [address]- 2606 September, [facility] [address], [place] [address]- 6375 Aug, [facility] [address], [place] [address]- 2717 Aug, [facility] [address], [place] [address]- 8442 Aug, [facility] [address], [place] [address]- 0793 Jul, [facility] [id number], [place] [address]- 1901 Jul, [facility] [address], [place] [address]- 1946 Jul, [facility] [id number], [place] [address]- 4846 Jul, [facility] [address] [id number] [place] [address]- 4876 18 Jul, 2014 [facility] [place] [facility] [address] [id number] [place] [address]- 2162 17 Jul, 2014 [facility] [place] [facility] [address] [id number] [place] [address]- 5329 17 Jul, 2014 [facility] [place] [facility] [address] [id number] [place] [address]- 7014 16 Jul, 2014 [facility] [place] [facility] [address] [id number] [place] [address]- 3507 16 Jul, 2014 [facility] [place] [facility] [address] [id number] [place] [address]- 2089 Jul, [facility] [place] [facility] [address] [facility] [id number] [place] [address]- 3524 Jul, [facility] [place] [facility] [address] [facility] [id number] [place] [address]- 0463 09 Jul, 2014 [facility] [place] [facility] [address] [facility] [id number] [place] [address]- 8946 09 Jul, 2014 [facility] [place] [facility] [address] [id number] [place] [address]- 8193 04 Jul, 2014 [facility] [place] [facility] [address] [facility] [id number] [place] [address]- 1135 04 Jul, 2014 [facility] [place] [facility] [address] [id number] [place] [address]- 4729 Jun, 2014 [facility] [place] [facility] [address] [facility] [id number] [place] [address]- 2361 Jun, 2014 [facility] [place] [facility] [address] [id number] [place] [address]- 1593 09 Jun, 2014 [facility] [place] [facility] [address] [facility] [id number] [place] [address]- 2546 09 Jun, 2014 [facility] [place] [facility] [address] [facility] [id number] [place] 7626 May, [facility] [place] [facility] [address] [id number] [place] [address]- 4920 May, [facility] [place] [facility] [address] [id number] [place] [address]- 5049 May, [facility] [place] [facility] [address] [id number] [place] [address]- 8042 May, [facility] [place] [facility] [address] [id number] [place] [address]- 9897 Apr, [facility] [place] [facility] [address] [id number] [place] [address]- 5614 Apr, [facility] [place] [facility] [address] [id number] [place] [address]- 2321 Apr, [facility] [place] [facility] [address] [id number] [place] [address]- 1171 Apr, [facility] [place] [facility] [address] [id number] [place] [address]- 0784 Apr, [facility] [place] [facility] [address] [id number] [place] [address]- 2643 Apr, [facility] [place] [facility] [address] [id number] [place] [address]- 8511 Mar, [facility] [place] [facility] [address] [id number] [place] [address]- 4166 Mar, [facility] [place] [facility] [address] [id number], [place] [address]- 7790 Mar, [facility] [place] [facility] [address] [id number] [place] [address]- 4818 Mar, [facility] [place] [facility] [address] [id number] [place] [address]- 0866 Mar, [facility] [place] [facility] [address] [id number], [place] [address]- 0121 Mar, [facility] [place] [facility] [address] [id number], [place] [address]- 2967 Mar, [facility] [place] [facility] [address] [id number] [place] [address]- 8632 Mar, [facility] [place] [facility] [address] [id number], [place] [address]- 1835 Mar, [facility] [place] [facility] [address] [facility] [id number] [place] [address]- 8747 Mar, [facility] [place] [facility] [address] [id number], [place] [address]- 7842 Mar, [facility] [place] [facility] [address] [facility] [id number] [place] [address]- 3956 Mar, [facility] [place] [facility] [address] [facility] [id number] [place] [address]- 9171 Mar, [facility] [place] [facility] [address] [facility] [id number], [place] [address]- 6946 Mar, [facility] [place] [facility] [address] [facility] [id number], [place] [address]- 2140 Mar, [facility] [place] [facility] [address] [facility] [id number], [place] [address]- 1897 Mar, [facility] [place] [facility] [address] [facility] [id number], [place] [address]- 4989 Mar, [facility] [place] [facility] [address] [facility] [id number], [place] [address]- 5722 Feb, [facility] [place] [facility] [address] [facility] [id number], [place] [address]- 1583 Feb, [facility] [place] [facility] [address] [id number], [place] [address]- 7017 Feb, [facility] [place] [facility] [address] [facility] [id number], [place] [address]- 3707 Feb, [facility] [place] [facility] [address] [facility] [id number], [place] [address]- 1428 Feb, [facility] [place] [facility] [address] [id number] [place] [address]- 3515 29 Feb, 2013 [facility] [place] [facility] [address] [id number] [place] [address]- 4463 Feb, [facility] [place] [facility] [address] [id number] [place] [address]- 5114 Feb, [facility] [place] [facility] [address] [id number] [place] [address]- 1089 Feb, [facility] [place] [facility] [address] [id number] [place] [address]- 8047 Feb, [facility] [place] [facility] [address] [id number] [place] [address]- 8518 Feb, [facility] [place] [facility] [address] [id number] [place] [address]- 9319 16 Feb, 2014 [facility] [place] [facility] [address] [id number] [place] [address]- 1175 Feb, [facility] [place] [facility] [address] [id number] [place] [address] 15 Feb, 2014 [facility] [place] [facility] [address] [id number] [place] [address] Feb, [facility] [place] [facility] [address] [id number] [place] [address] Feb, [facility] [place] [facility] [address] [id number] [place] [address] Feb, [facility] [place] [facility] [address] [id number] [place] [address] Feb, [facility] [place] [facility] [address] [id number] [place] [address] Feb, [facility] [place] [facility] [address] [id number] [place] [address] 30 Jan, 2014 [facility] [place] [facility] [address] [id number] [place] [address] 30 Sep, 2013 [facility] [place] [facility] [address] [id number] [place] [address] 29 Jan, 2013 [facility] [place] [facility] [address] [id number] [place] [address] 29 Jan, 2014 [facility] [place] [facility] [address] [id number] [place] [address] 24 Jan, 2014 [facility] [place] [facility] [address] [id number] [place] [address] 24 Jan, 2013 [facility] [place] [facility] [address] [id number] [place] [address] 10 Jan, 2014 [facility] [place] [facility] [address] [id number] [place] [address] 08 Jan, 2014 [facility] [place] [facility] [address] [id number] [place] [address] Jan, [facility] [place] [facility] [address] [id number] [place] [address] Dec, [facility] [place] [facility] [address] [id number] [place] [address] Dec, [facility] [place] [facility] [address] [id number] [place] [address] Dec, [facility] [place] [facility] [address] [id number] [place] [address] Dec, [facility] [place] [facility] [address] [id number], [place] [address] Dec, [facility] [place] [facility] [address] [id number] [place] [address] Dec, [facility] [place] [facility] [address] [id number] [place] [address] Dec, [facility] [place] [facility] [address] [id number] [place] [address] Dec, [facility] [place] [facility] [address] [id number] [place] [address] Dec, [facility] [place] [facility] [address] [id number] [place] [address] Nov, [facility] [place] [facility] [address] [id number] [place] [address] Nov, [facility] [place] [facility] [address] [id number] [place] [address] Nov, [facility] [place] [facility] [address] [id number] [place] [address] Nov, [facility] [place] [facility] [address] [id number] [place] [address] Nov, [facility] [place] [facility] [address] [id number] [place] [address] Nov, [facility] [place] [facility] [address] [id number] [place] [address] Oct, [facility] [place] [facility] [address] [id number] [place] [address] Oct, [facility] [place] [facility] [address] [id number] [place] [address] Oct, [facility] [place] [facility] [address] [id number] [place] [address] Oct, [facility] [place] [facility] [address] [id number] [place] [address] Oct, [facility] [place] [facility] [address] [id number] [place] [address] Oct, [facility] [place] [facility] [address] [id number] [place] [address] Oct, [facility] [place] [facility] [address] [id number] [place] [address] Oct, [facility] [place] [facility] [address] [id number] [place] [address] Oct, [facility] [place] [facility] [address] [id number] [place] [address] Oct, [facility] [place] [facility] [address] [id number] [place] [address]77 Oct, [facility] [place] [facility] [address] [id number] [place] [address] Oct, [facility] [place] [facility] [address] [id number] [place] [address] 1425 Oct, [facility] [place] [facility] [address] [id number] [place] [address] Oct, [facility] [place] [facility] [address] [id number] [place] [address] September, [facility] [place] [facility] [address] [id number] [place] [address] 3544 September, [facility] [place] [facility] [address] [id number] [place] [address]- 2857 September, [facility] [place] [facility] [address] [id number] [place] [address] 9260 September, [facility] [place] [facility] [address] [id number] [place] [address]- 3286 September, [facility] [place] [facility] [address] [id number] [place] [address] 3249 September, [facility] [place] [facility] [address] [id number] [place] [address]- 8127 September, [facility] [place] [facility] [address] [id number] [place] [address]- 9802 September, [facility] [place] [facility] [address] [id number] [place] [address]- 2466 September, [facility] [place] [facility] [address] [id number] [place] [address]- 4120 September, [facility] [place] [facility] [address] [id number] [place] [address]- 2546 September, [facility] [place] [facility] [address] [id number] [place] [address]- 7295 September, [facility] [place] [facility] [address] [id number] [place] [address]- 0696 September, [facility] [place] [facility] [address] [id number] [place] [address]- 2908 September, [facility] [place] [facility] [address] [id number] [place] [address]- 6078 September, [facility] [place] [facility] [address] [id number] [place] [address]- 7475 September, [facility] [place] [facility] [address] [id number] [place] [address]- 0879 September, [facility] [place] [facility] [address] [id number] [place] [address]- 4136 September, [facility] [place] [facility] [address] [id number] [place] [address]- 5255 September, [facility] [place] [facility] [address] [id number] [place] [address]- 9515 Aug, [facility] [place] [facility] [address] [id number] [place] [address]- 1800 Aug, [facility] [place] [facility] [address] [id number] [place] [address] Jul, [facility] [place] [facility] [address] [id number] [place] [address]- 3085 Jul, [facility] [place] [facility] [address] [id number] [place] [address]- 6830 Jul, [facility] [place] [facility] [address] [id number] [place] [address]- 0728 Jul, [facility] [place] [facility] [address] [id number] [place] [address]- 2757 Jul, [facility] [place] [facility] [address] [id number] [place] [address]- 1052 27 Jul, 2013 [facility] [place] [facility] [address] [id number] [place] [address]- 6146 Jul, [facility] [place] [facility] [address] [id number] [place] [address]- 7270 Jul, [facility] [place] [facility] [address] [id number] [place] [address]- 4650 Jul, [facility] [place] [facility] [address] [id number] [place] [address]- 4760 Jul, [facility] [place] [facility] [address] [id number] [place] [address]- 1509 Jul, [facility] [place] [facility] [address] [id number] [place] [address]- 6052 Jul, [facility] [place] [facility] [address] [id number] [place] [address]- 7180 Jul, [facility] [place] [facility] [address] [id number] [place] [address]- 1733 07 Jul, 2013 [facility] [place] [facility] [address] [id number] [place] [address]- 0776 10 Jun, 2013 [facility] [place] [facility] [address] [id number] [place] [address]- 5167 10 Jun, 2013 [facility] [place] [facility] [address] [id number] [place] [address]- 0011 Jun, [facility] [place] [facility] [address] [id number] [place] [address]- 1077 Jun, [facility] [place] [facility] [address] [id number] [place] [address]- 8557 May, [facility] [place] [facility] [address] [id number] [place] [address]- 0998 May, [facility] [place] [facility] [address] [id number] [place] [address]- 8192 May, [facility] [place] [facility] [address] [id number] [place] [address]- 7254 May, [facility] [place] [facility] [address] [id number] [place] [address]- 6928 May, [facility] [place] [facility] [address] [id number] [place] [address]- 3730 Mar, [facility] [place] [facility] [address] [id number] [place] [address]- 4103 Mar, [facility] [place] [facility] [address] [id number] [place] [address]- 9514 Mar, [facility] [place] [facility] [address] [id number] [place] [address]- 2563 Mar, [facility] [place] [facility] [address] [id number] [place] [address]- 0773 Mar, [facility] [place] [facility] [address] [id number] [place] [address]- 1237 Mar, [facility] [place] [facility] [address] [id number] [place] [address]- 4207 Feb, [facility] [place] [facility] [address] [id number] [place] [address]- 2406 Feb, [facility] [place] [facility] [address] [id number], [place] [address]- 8290 Feb, [facility] [place] [facility] [address] [id number], [place] [address]- 7104 Feb, [facility] [place] [facility] [address] [id number] [place] [address]- 0668 Feb, [facility] [place] [facility] [address] [id number], [place] [address]- 8569 Feb, [facility] [place] [facility] [address] [id number], [place] [address]- 3458 Feb, [facility] [place] [facility] [address] [id number] [place] [address]- 6786 Feb, [facility] [place] [facility] [address] [id number] [place] [address]- 7803 Feb, [facility] [place] [facility] [address] [id number] [place] [address]- 5200 Feb, [facility] [place] [facility] [address] [id number] [place] [address]- 8268 Feb, [facility] [place] [facility] [address] [id number] [place] [address]- 5942 Feb, [facility] [place] [facility] [address] [id number] [place] [address]- 0928 Jan, [facility] [place] [facility] [address] [id number] [place] [address]- 9380 Jan, [facility] [place] [facility] [address] [id number] [place] [address]- 6277 Dec, [facility] [place] [facility] [address] [id number] [place] [address]- 2233 Dec, [facility] [place] [facility] [address] [id number] [place] [address]- 8544 Nov, [facility] [place] [facility] [address] [id number] [place] [address]- 4876 Nov, [facility] [place] [facility] [address] [id number] [place] [address]- 5432 Nov, [facility] [place] [facility] [address] [id number] [place] [address]- 3220 Nov, [facility] [place] [facility] [address] [id number] [place] [address]- 9501 Nov, [facility] [place] [facility] [address] [id number] [place] [address]- 5395 Oct, [facility] [place] [facility] [address] [id number] [place] [address]- 1542 September, [facility] [place] [facility] [address] [id number] [place] [address]- 1328 Aug, [facility] [address] [id number] [place] [address]- 5594 Jul, [facility] [place] [facility] [address] [id number] [place] [address]- 7410 Jul, [facility] [place] [facility] [address] [id number] [place] [address]- 9637 Jul, [facility] [address] [id number] [place] [address]- 6588 Jun, [facility] [place] [facility] [address] [id number] [place] [address]- 4732 Jun, [facility] [address] [id number] [place] [address]- 9143 Jun, [facility] [address] [id number] [place] [address]- 9411 Jun, [facility] [address] [id number] [place] [address]- 7468 Jun, [facility] [address] [id number] [place] [address]- 1342 May, [facility] [address] [id number] [place] [address]- 9593 May, [facility] [address] [id number] [place] [address]- 3443 Apr, [facility] [place] [facility] [address] [id number] [place] [address]- 3642 Apr, [facility] [place] [facility] [address] [id number] [place] [address]- 3316 Mar, [facility] [place] [facility] [address] [id number] [place] [address]- 1811 Mar, [facility] [place] [facility] [address] [id number], [place] [address]- 0529 Mar, [facility] [place] [facility] [address] [id number] [place] [address]- 1012 Mar, [facility] [place] [facility] [address] [id number], [place] [address]- 1112 Mar, [facility] [place] [facility] [address] [id number] [place] [address]- 0707 Mar, [facility] [place] [facility] [address] [id number] [place] [address]- 5745 Mar, [facility] [place] [facility] [address] [id number] [place] [address], [place] [address]- 3110 Mar, [facility] [place] [facility] [address] [id number] [place] [address]- 7873 Mar, [facility] [place] [facility] [address] [facility] [id number], [place] [address]- 1056 Mar, [facility] [place] [facility] [address] [id number], [place] [address]- 3531 Feb, [facility] [place] [facility] [address] [id number] [place] [address]- 9380 Feb, [facility] [place] [facility] [address] [facility] [id number], [place] [address]- 8150 Feb, [facility] [place] [facility] [address] [id number], [place] [address]- 0009 30 Feb, 2012 [facility] [place] [facility] [address] [id number], [place] [address]- 9856 Feb, [facility] [place] [facility] [address] [id number], [place] [address]- 9163 Feb, [facility] [place] [facility] [address] [facility] [id number], [place] [address]- 3686 Jan, [facility] [place] [facility] [address] [facility] [id number], [place] [address]- 9508 05 Sep2011 [facility] [place] [facility] [address] [id number] [place] [address]- 9098 Dec, [facility] [place] [facility] [address] [id number] [place] [address]- 2128 Dec, [facility] [place] [facility] [address] [id number] [place] [address]- 3355 Dec, [facility] [place] [facility] [address] [id number] [place] [address]- 5984 Nov, [facility] [place] [facility] [address] [id number] [place] [address]- 4841 September, [facility] [place] [facility] [address] [id number] [place] [address]- 0769 September, [facility] [place] [facility] [address] [id number] [place] [address]- 1490 September, [facility] [place] [facility] [address] [id number] [place] [address]- 6267 September, [facility] [place] [facility] [address] [id number] [place] [address]- 0252 Aug, [facility] [place] [facility] [address] [id number] [place] [address]- 4081 Aug, [facility] [place] [facility] [address] [id number] [place] [address]- 6191 Aug, [facility] [place] [facility] [address] [id number] [place] [address]- 5074 Aug, [facility] [place] [facility] [address] [id number] [place] [address]- 7553 Aug, [facility] [place] [facility] [address] [id number] [place] [address]- 1363 Jul, [facility] [place] [facility] [address] [id number] [place] [address]- 9246 05 Jul, 2011 [facility] [place] [facility] [address] [id number] [place] [address]- 2231 Jul, [facility] [address] [id number] [place] [address]- 4815 29 Jun, 2011 [facility] [place] [facility] [address] [id number] [place] [address]- 2126 17 Jun, 2011 [facility] [place] [facility] [address] [facility] [id number] [place] [address]- 2336 13 Jun, 2011 [facility] [place] [facility] [address] [id number] [place] [address]- 8975 10 Jun, 2011 [facility] [place] [facility] [address] [id number] [place] [address]- 6146 07 Jun, 2011 [facility] [place] [facility] [address] [facility] [id number] [place] [address]- 4055 Jun, [facility] [address] [id number] [place] [address]- 7809 Jun, [facility] [place] [facility] [address] [facility] [id number] [place] [address]- 6300 May, [facility] [address] [id number] [place] [address]- 0165 May, [facility] [place] [facility] [address] [facility] [id number] [place] [address]- 1710 May, [facility] [address] [facility] [id number] [place] [address]- 2427 May, [facility] [place] [facility] [address] [facility] [id number], [place] [address]- 2162 Apr, [facility] [place] [facility] [address] [id number] [place] [address]- 9936 Apr, [facility] [place] [facility] [address] [facility] [id number] [place] [address]- 4038 Mar, [facility] [place] [facility] [address] [id number] [place] [address]- 3716 Mar, [facility] [place] [facility] [address] [id number] [place] [address]- 5356 Mar, [facility] [address] [id number] [place] [address]- 1906 11 Nov, 2010 [facility] [place] [facility] [address] [id number] [place] [address]- 2546 13 May, 2010 [facility] [place] [facility] [address] [id number] [place] [address]- 0026 23 Apr, 2010 [facility] [place] [facility] [address] [id number] [place] [address] 2546 13 Apr, 2010 [facility] [place] [facility] [address] [id number] [place] [address]- 9336 Apr, [facility] [place] [facility] [address] [id number] [place] [address]- 3316 Apr, [facility] [place] [facility] [address] [id number] [place] [address]- 1497 Apr, [facility] [place] [facility] [address] [id number] [place] [address]- 0118 18 Mar, 2010 [facility] [place] [facility] [address] [id number] [place] [address]- 0369 08 Mar, 2010 [facility] [place] [facility] [address] [id number] [place] [address]- 2988 20 Feb, 2010 [facility] [place] [facility] [address] [id number] [place] [address]- 2880 14 Aug, 2009 [facility] [place] [facility] [address] [id number] [place] [address]- 8075 10 Jul, 2009 [facility] [place] [facility] [address] [id number] [place] [address]- 8796 17 Jun, 2009 [facility] [place] [facility] [address] [id number] [place] [address]- 2546 30 Apr, 2009 [facility] [place] [facility] [address] [id number] [place] [address] 2544 Apr, [facility] [address] [facility] [id number], [place] [address]- 2546 Mar, [facility] [address] [id number], [place] [address]- 2546 Mar, [facility] [address] [facility] [id number], [place] [address]- 2546 Feb, [facility] [address] [id number], [place] [address]- 2546 Dec, [facility] [address] [facility] [id number], [place] [address]- 2546 Oct, IMMUNIZATIONS No Known Immunizations SOCIAL HISTORY Never Assessed REASON FOR VISIT [facility] note PLAN OF CARE VITAL SIGNS MEDICATIONS [...] Hospitalization History cellulitis 09/2013 Hospitalization History surgery 2014 Hospitalization History A Fib--[facility] 03/08/2016 Hospitalization History acute chest pain, hypertensive urgency, paroxsysmal htn-[facility] 05/10/16
--- OUTSIDE RECORDS SUMMARY | 2018-09-17 11:47 | XMS REPORT ---
Author Author JORDY DESIREE [facility] Address [address] [place] [address] Care Team Providers Care Film Reader Name Role Phone DESIREE SPENCE Unavailable PROBLEMS Type Condition ICD9-CM Code [id number] Code Onset Dates Condition Status SNOMED Code Problem Vitamin D deficiency E55.9 Active 11801069 Problem Chronic frontal sinusitis J32.1 Active 55905434 Problem Hyponatremia E87.1 Active 05669801 Problem BMI 40.0-44.9, adult Z68.41 Active 250014066 Problem Seasonal allergies J30.2 Active 691070164 Problem Secondary pulmonary arterial hypertension I27.21 Active 34839539 Problem Other chronic gastritis without hemorrhage K29.50 Active 8318334 Problem Paroxysmal atrial fibrillation I48.0 Active 012675140 Problem Fasciculations of muscle R25.3 Active 10133602 Problem Depression, unspecified depression type F32.9 Active 23060061 Problem Mild intermittent asthma without complication J45.20 Active 774845980 Problem Chronic migraine G43.709 Active 02497715 Problem Primary insomnia F51.01 Active 655802052 Problem Generalized anxiety disorder F41.1 Active 810130843 Problem Elevated alkaline phosphatase level R74.8 Active 287243848 Problem Obstructive sleep apnea G47.33 Active 67053070 Problem Hidradenitis L73.2 Active 11437380 Problem Essential hypertension I10 Active 91999787 Problem Idiopathic peripheral neuropathy G60.9 Active 66823809 Problem Hyperlipidemia E78.5 Active 16211380 ALLERGIES Substance Reaction Event Type Date Status Amitriptyline HCl Unknown Drug Allergy Nov, Active ENCOUNTERS Encounter Location Date Diagnosis [facility] [address] [facility] [id number] [address] Jan, [facility] [address] [facility] [id number] [address] Dec[place] [facility] [id number] [address] Dec, [place] [id number] [place] [address] 03830- 9600 Dec, Essential hypertension I10 [place] [id number] [place] [address] 39569- 3809 Nov, Essential hypertension I10 [place] [address] 42962- 0225 Nov, [place] [id number] [place] [address] 10931- 6779 Nov, Essential hypertension I10 and BMI 40.0-44.9, adult Z68.41 [place] [id number] [place] [address] 83820- 1306 Oct, Essential hypertension I10 and Chronic kidney disease, unspecified CKD stage N18.9 [place] [id number] [place] [address] 91688- 9596 Oct, Essential hypertension I10 and Chronic kidney disease, unspecified CKD stage N18.9 [place] [id number] [place] [address] 81352- 7281 Oct, [facility] [id number] [place] [address] 13134- 5603 September, Medicare annual wellness visit, initial Z00.00 ; Mild intermittent asthma without complication J45.20 ; Generalized anxiety disorder F41.1 ; Depression, unspecified depression type F32.9 ; Paroxysmal atrial fibrillation I48.0 ; Obstructive sleep apnea G47.33 ; Hyponatremia E87.1 ; Need for hepatitis C screening test Z11.59 ; Encounter for immunization Z23 ; Secondary pulmonary arterial hypertension I27.21 and BMI 40.0-44.9, adult Z68.41 [address] [place] [address] 48334- 4926 30 Aug, 2017 Essential hypertension I10 [facility] [id number] [place] [address] 30891 -3311 Jun, Dysuria R30.0 ; UTI symptoms R39.9 and Candidiasis of breast B37.89 [place] [id number] [place] [address] 42091- 7236 Jun, Hyponatremia E87.1 [facility] [id number] [place] [address] 10543- 0693 Jun, Hyponatremia E87.1 [facility] [id number] [place] [address] 84714- 7409 Jun, Hyponatremia E87.1 [facility] [id number] [place] [address] 50610- 6401 Jun, [facility] [id number] [place] [address] 03435- 6107 May, Hyponatremia E87.1 [facility] [id number] [place] [address] 93380- 5616 May, Hyponatremia E87.1 [facility] [id number] [place] [address] 03606- 8229 May, Hyponatremia E87.1 [facility] [id number] [place] [address] 57589- 4574 May, Hyponatremia E87.1 [place] [id number] [place] [address] 06099- 6351 Apr, Hyponatremia E87.1 ; Fasciculations of muscle R25.3 and Hyperlipidemia E78.5 [place] [address] [place] [address] 48773- 8882 Apr, Cough R05 ; Hyponatremia E87.1 ; Fasciculations of muscle R25.3 ; Primary insomnia F51.01 ; Essential hypertension I10 ; Hyperlipidemia E78.5 ; Screening for breast cancer Z12.31 and BMI 40.0-44.9, adult Z68.41 [place] [address] [place] [id number] [address]- 5961 18 Apr, 2017 Essential hypertension I10 [facility] [address] [id number] [place] [address]- 2905 14 Mar, 2017 [facility] [address] [facility] [id number] [place] [address]- 6193 Mar, [facility] [address] [place] [id number] [place] [address]- 4304 09 Mar, 2017 [facility] [address] [facility] [id number] [place] [address]- 7958 17 Feb, 2017 [facility] [address] [id number] [place] [address]- 3242 19 Jan, 2017 [facility] [address] [id number] [place] [address]- 0351 14 Dec, 2016 Essential hypertension I10 [facility] [id number] [place] [address]- 2979 08 Dec, 2016 [facility] [address] [place] [id number] [place] [address]- 8647 Dec, Essential hypertension I10 [facility] [address] [place] [address] [id number] [place] [address]- 1855 Nov, [facility] [address] [address]- 4168 Oct, Essential hypertension I10 [facility] [address] [place] [id number] [address]- 8121 Oct, Essential hypertension I10 [facility] [address] [id number] [place] [address]- 7077 Oct, [facility] [address] [id number] [address]- 3724 September, [facility] [address] [place] [address] [id number] [place] [address]- 7212 September, Essential hypertension I10 [facility] [id number] [place] [address] 44546- 6630 September, [facility] [id number] [place] [address] 18415- 3633 September, Essential hypertension I10 ; Hyperlipidemia E78.5 and Hyponatremia E87.1 [facility] [id number] [place] [address] 80855- 0869 September, Mild intermittent asthma without complication J45.20 ; Essential hypertension I10 ; Hyperlipidemia E78.5 ; Hyponatremia E87.1 and Dysuria R30.0 [place] [id number] [place] [address] 04449- 2877 September, Other chronic gastritis without hemorrhage K29.50 ; Paroxysmal atrial fibrillation I48.0 and Essential hypertension I10 [place] [id number] [place] [address] 71002- 2842 Aug, [facility] [id number] [place] [address] 28977- 1221 Jul, [facility] [id number] [place] [address] 17104- 7518 14 Jun, 2016 [facility] [address] [place] [address] 45418 -6717 07 Jun, 2016 Dysuria R30.0 and Acute cystitis with hematuria N30.01 [facility] [address] [place] [address] 15350- 1933 Jun, Essential hypertension I10 [facility] [address] [place] [id number] [place] [address] 38447- 7903 May, Paroxysmal atrial fibrillation I48.0 [facility] [id number] [place] [address] 92802- 8594 May, Other chronic gastritis without hemorrhage K29.50 [facility] [address] [place] [address] 30677- 0944 May, [facility] [id number] [place] [address] 36164- 1833 May, Hyponatremia E87.1 ; Essential hypertension I10 and Other chronic gastritis without hemorrhage K29.50 [facility] [id number] [place] [address] 27877- 3259 10 May, 2016 Hyponatremia E87.1 [facility] [id number] [place] [address] 29267- 2641 May, Hyponatremia E87.1 [facility] [address] [id number] May, [place] [address] 71332- 6464 16 Apr, 2016 [facility] [id number] [place] [address] 86438- 0586 Apr, [place] [address] 30080- 2762 Mar, Essential hypertension I10 and Candidal intertrigo B37.2 [facility] [id number] [place] [address] 03879- 6997 Mar, Hyponatremia E87.1 [facility] [id number] [place] [address] 83036- 1047 Mar, [facility] [id number] [place] [address] 31025- 0461 Mar, Hyponatremia E87.1 [facility] [id number] [place] [address] 01046- 6808 Mar, Essential hypertension I10 ; Hyponatremia E87.1 ; Slurred speech R47.81 ; Paroxysmal atrial fibrillation I48.0 and Elevated blood sugar R73.9 [facility] [id number] [place] [address] 05460- 3346 Mar, [facility] [id number] [place] [address] 31963- 3192 Mar, [facility] [address] [address]- 8163 Feb, [facility] [id number] [place] [address] 79969- 0769 15 Jan, 2016 [facility] [id number] [place] [address] 03366- 2368 Dec, [facility] [id number] [place] [address] 35587 -3495 Nov, Scratched by cat, initial encounter W55.03XA and Other injury of unspecified body region T14.8 [place] [id number] [place] [address] 32774- 2639 Nov, [facility] [id number] [place] [address] 38359- 3052 Oct, [place] [id number] [place] [address] 68000- 4384 September, [facility] [id number] [place] [address] 55448- 5857 Aug, Elevated alkaline phosphatase level R74.8 [place] [address] [id number] [place] [address] 72589- 4698 Jul, [facility] [id number] [place] [address] 61414- 6086 Jun, Essential hypertension I10 and Bright red blood per rectum K62.5 [facility] [address] [address]- 1243 11 Jun, 2015 Elevated alkaline phosphatase level R74.8 [place] [address] [id number] [place] [address] 91783- 9935 Jun, [facility] [id number] [place] [address] 25802- 2091 May, Essential hypertension I10 ; Hyperlipidemia E78.5 and Well woman exam (no gynecological exam) Z00.00 [place] [address] [address]- 8854 May, [place] [id number] [place] [address] 56028- 8988 May, [place] [id number] [place] [address] 87352- 0594 Mar, [place] [id number] [place] [address] 422234- 8746 Mar, [place] [id number] [place] [address] 39485- 1169 Mar, [place] [id number] [place] [address] 237023- 9127 Feb, Acute recurrent maxillary sinusitis J01.01 ; Asthma, unspecified, unspecified status 493.90 ; Seasonal allergies J30.2 and Cat allergies J30.81 [place] [address] [id number] [place] [address] 10321- 1601 Feb, Upper respiratory tract infection, unspecified upper respiratory infection J06.9 [place] [id number] [place] [address] 41104- 7502 Jan, [place] [id number] [place] [address] 37328- 3973 Jan, Dysphagia 787.20 and GERD (gastroesophageal reflux disease) 530.81 [place] [id number] [place] [address] 78376- 2217 Jan, Breast lesion 611.9 [place] [address] [place] [address] 30391- 8341 Dec, Breast lesion 611.9 [place] [id number] [place] [address] 31804- 8472 Dec, Breast lesion 611.9 [place] [address] [place] [address] 77342- 4440 Nov, Fatigue 780.79 and Hyperlipidemia 272.4 [facility] [address] [facility] [id number] [place] [address]- 0503 Nov, Hypertension 401.9 ; Hyperlipidemia 272.4 ; Chronic frontal sinusitis 473.1 and Fatigue 780.79 [facility] [address] [facility] [id number] [place] [address]- 2546 Nov, [facility] [address] [facility] [id number] [place] [address]- 2546 Oct, [facility] [address] [facility] [id number] [place] [address]- 2546 Oct, [facility] [id number] [place] [address]- 0836 September, [facility] [address] [id number] [place] [address]- 0176 September, [facility] [id number] [place] [address]- 2546 September, [facility] [id number] [address]- 5326 September, [facility] [address] [place] [address]- 0676 Aug, [facility] [address] [place] [id number] [place] [address]- 9896 Aug, [facility] [id number] [address]- 2546 Aug, [facility] [id number] [address]- 2546 Jul, [facility] [address] [id number] [place] [address]- 2546 Jul, [facility] [address] [id number] [place] [address]- 2546 Jul, [facility] [id number] [address]- 0106 Jul, [facility] [place] [facility] [address] [id number] [place] [address]- 7735 Jul, [facility] [place] [facility] [address] [id number] [place] [address]- 2875 Jul, [facility] [place] [facility] [address] [id number] [place] [address]- 7492 Jul, [facility] [place] [facility] [address] [id number] [place] [address]- 8738 Jul, 2014 [facility] [place] [facility] [address] [id number] [place] [address]- 8016 Jul, [facility] [place] [facility] [address] [id number] [place] [address]- 1301 Jul, [facility] [place] [facility] [address] [id number] [place] [address]- 4731 Jul, [facility] [place] [facility] [address] [id number] [place] [address]- 0732 Jul, [facility] [place] [facility] [address] [id number] [place] [address]- 5393 Jul, [facility] [place] [facility] [address] [id number] [place] [address]- 7072 Jul, [facility] [place] [facility] [address] [id number] [place] [address]- 4740 Jul, [facility] [place] [facility] [address] [id number] [place] [address]- 9854 Jun, 2014 [facility] [place] [facility] [address] [id number] [place] [address]- 0647 Jun, 2014 [facility] [place] [facility] [address] [id number] [place] [address]- 4578 Jun, [facility] [place] [facility] [address] [id number] [place] [address]- 5402 Jun, [facility] [place] [facility] [address] [id number] [place] [address]- 9076 13 May, 2014 [facility] [place] [facility] [address] [id number] [place] [address]- 1129 13 May, 2014 [facility] [place] [facility] [address] [id number] [place] [address]- 0183 13 May, 2014 [facility] [place] [facility] [address] [id number] [place] [address]- 0021 May, [facility] [place] [facility] [address] [id number] [place] [address]- 4815 18 Apr, 2014 [facility] [place] [facility] [address] [id number] [place] [address]- 4489 18 Apr, 2014 [facility] [place] [facility] [address] [id number] [place] [address]- 6103 17 Apr, 2014 [facility] [place] [facility] [address] [id number] [place] [address]- 3505 Apr, [facility] [place] [facility] [address] [id number] [place] [address]- 9729 Apr, [facility] [place] [facility] [address] [id number] [place] [address]- 3139 Apr, [facility] [place] [facility] [address] [id number] [place] [address]- 2072 Mar, [facility] [place] [facility] [address] [id number] [place] [address]- 4411 Mar, [facility] [place] [facility] [address] [id number] [place] [address]- 6424 Mar, [facility] [place] [facility] [address] [id number] [place] [address]- 0851 Mar, [facility] [place] [facility] [address] [id number] [place] [address]- 7897 Mar, [facility] [place] [facility] [address] [id number] [place] [address]- 0500 Mar, [facility] [place] [facility] [address] [id number] [place] [address]- 7053 Mar, [facility] [place] [facility] [address] [id number] [place] [address]- 3187 Mar, [facility] [place] [facility] [address] [id number] [place] [address]- 7667 Mar, [facility] [place] [facility] [address] [id number] [place] [address]- 3333 Mar, [facility] [place] [facility] [address] [id number] [place] [address]- 8348 Mar, [facility] [place] [facility] [address] [id number] [place] [address]- 8042 Mar, [facility] [place] [facility] [address] [id number] [place] [address]- 6156 Mar, [facility] [place] [facility] [address] [id number] [place] [address]- 0304 Mar, [facility] [place] [facility] [address] [id number] [place] [address]- 5620 Mar, [facility] [place] [facility] [address] [id number] [place] [address]- 1254 Mar, [facility] [place] [facility] [address] [id number] [place] [address]- 6512 Mar, [facility] [place] [facility] [address] [id number] [place] [address]- 5770 Feb, [facility] [place] [facility] [address] [id number] [place] [address]- 7927 Feb, [facility] [place] [facility] [address] [id number] [place] [address]- 1257 Feb, [facility] [place] [facility] [address] [id number] [place] [address]- 1978 Feb, [facility] [place] [facility] [address] [id number] [place] [address]- 8847 Feb, [facility] [place] [facility] [address] [id number] [place] [address]- 7857 Feb, [facility] [place] [facility] [address] [id number] [place] [address] Feb, [facility] [place] [facility] [address] [id number] [place] [address] Feb, [facility] [place] [facility] [address] [id number] [place] [address] Feb, [facility] [place] [facility] [address] [id number] [place] [address] Feb, [facility] [place] [facility] [address] [id number] [place] [address] Feb, [facility] [place] [facility] [address] [id number] [place] [address] Feb, [facility] [place] [facility] [address] [id number] [place] [address] Feb, [facility] [place] [facility] [address] [id number] [place] [address] Feb, [facility] [place] [facility] [address] [id number] [place] [address] Feb, [facility] [place] [facility] [address] [id number] [place] [address] Feb, [facility] [place] [facility] [address] [id number] [place] [address] Feb, [facility] [place] [facility] [address] [id number] [place] [address] Feb, [facility] [place] [facility] [address] [id number] [place] [address] Feb, [facility] [place] [facility] [address] [id number] [place] [address] 30 Jan, 2014 [facility] [place] [facility] [address] [id number] [place] [address] 30 Sep, 2013 [facility] [place] [facility] [address] [id number] [place] [address] 29 Jan, 2013 [facility] [place] [facility] [address] [id number] [place] [address]- [address] 29 Jan, 2013 [facility] [place] [facility] [address] [id number] [place] [address] 24 Jan, 2013 [facility] [place] [facility] [address] [id number] [place] [address]- [address] 24 Jan, 2013 [facility] [place] [facility] [address] [id number] [place] [address]- [address] 10 Jan, 2013 [facility] [place] [facility] [address] [id number] [place] [address]- [address] 08 Jan, 2013 [facility] [place] [facility] [address] [id number] [place] [address]- [address] 08 Jan, 2013 [facility] [place] [facility] [address] [id number] [place] [address]- [address] Dec, [facility] [place] [facility] [address] [id number] [place] [address]- [address] Dec, [facility] [place] [facility] [address] [id number] [place] [address] Dec, [facility] [place] [facility] [address] [id number] [place] [address] Dec, [facility] [place] [facility] [address] [id number] [place] [address]- [address] Dec, [facility] [place] [facility] [address] [id number] [place] [address] Dec, [facility] [place] [facility] [address] [id number] [place] [address]- [address] Dec, [facility] [place] [facility] [address] [id number] [place] [address] Dec, [facility] [place] [facility] [address] [id number] [place] [address] Dec, [facility] [place] [facility] [address] [id number] [place] [address]- [address] Nov, [facility] [place] [facility] [address] [id number] [place] [address] Nov, [facility] [place] [facility] [address] [id number] [place] [address] Nov, [facility] [place] [facility] [address] [id number] [place] [address] Nov, [facility] [place] [facility] [address] [id number] [place] [address]- [address] Nov, [facility] [place] [facility] [address] [id number] [place] [address] Nov, [facility] [place] [facility] [address] [id number] [place] [address] Oct, [facility] [place] [facility] [address] [id number] [place] [address] Oct, [facility] [place] [facility] [address] [id number] [place] [address] Oct, [facility] [place] [facility] [address] [id number] [place] [address] Oct, [facility] [place] [facility] [address] [id number] [place] [address]- 8[address] Oct, [facility] [place] [facility] [address] [id number] [place] [address]- 3494 Oct, [facility] [place] [facility] [address] [id number] [place] [address]- 3219 Oct, [facility] [place] [facility] [address] [id number] [place] [address]- 1611 Oct, [facility] [place] [facility] [address] [id number] [place] [address]- 3959 Oct, [facility] [place] [facility] [address] [id number] [place] [address]- 6255 Oct, [facility] [place] [facility] [address] [id number] [place] [address]- 5108 Oct, [facility] [place] [facility] [address] [id number] [place] [address]- 4991 Oct, [facility] [place] [facility] [address] [id number] [place] [address] Oct, [facility] [place] [facility] [address] [id number] [place] [address]- 2243 Oct, [facility] [place] [facility] [address] [id number] [place] [address]- 5927 September, [facility] [place] [facility] [address] [id number] [place] [address]- 3850 September, [facility] [place] [facility] [address] [id number] [place] [address]- 0095 September, [facility] [place] [facility] [address] [id number] [place] [address]- 8868 September, [facility] [place] [facility] [address] [id number] [place] [address]- 6680 September, [facility] [place] [facility] [address] [id number] [place] [address]- 4356 September, [facility] [place] [facility] [address] [id number] [place] [address]- 9822 September, [facility] [place] [facility] [address] [id number] [place] [address]- 8420 September, [facility] [place] [facility] [address] [id number] [place] [address]- 5741 September, [facility] [place] [facility] [address] [id number] [place] [address]- 7787 September, [facility] [place] [facility] [address] [id number] [place] [address]- 8782 September, [facility] [place] [facility] [address] [id number] [place] [address] September, [facility] [place] [facility] [address] [id number] [place] [address]- 6893 September, [facility] [place] [facility] [address] [id number] [place] [address]- 2933 September, [facility] [place] [facility] [address] [id number] [place] [address]- 0908 September, [facility] [place] [facility] [address] [id number] [place] [address]- 2590 September, [facility] [place] [facility] [address] [id number] [place] [address]- 6593 September, [facility] [place] [facility] [address] [id number] [place] [address]- 7452 September, [facility] [place] [facility] [address] [id number] [place] [address]- 5520 September, [facility] [place] [facility] [address] [id number] [place] [address]- 9702 Aug, [facility] [place] [facility] [address] [id number] [place] [address]- 8007 Aug, [facility] [place] [facility] [address] [id number] [place] [address]- 2971 Jul, [facility] [place] [facility] [address] [id number] [place] [address]- 1682 Jul, [facility] [place] [facility] [address] [id number] [place] [address]- 1509 Jul, [facility] [place] [facility] [address] [id number] [place] [address]- 8862 Jul, [facility] [place] [facility] [address] [id number] [place] [address]- 4084 Jul, [facility] [place] [facility] [address] [id number] [place] [address]- 4585 Jul, [facility] [place] [facility] [address] [id number] [place] [address]- 6758 Jul, [facility] [place] [facility] [address] [id number] [place] [address]- 6362 Jul, [facility] [place] [facility] [address] [id number] [place] [address]- 7832 Jul, [facility] [place] [facility] [address] [id number] [place] [address]- 9291 Jul, [facility] [place] [facility] [address] [id number] [place] [address]- 6689 Jul, [facility] [place] [facility] [address] [id number] [place] [address]- 7175 Jul, [facility] [place] [facility] [address] [id number] [place] [address]- 0977 Jul, [facility] [place] [facility] [address] [id number] [place] [address]- 7641 07 Jul, 2013 [facility] [place] [facility] [address] [id number] [place] [address]- 7852 10 Jun, 2013 [facility] [place] [facility] [address] [id number] [place] [address]- 2843 Jun, [facility] [place] [facility] [address] [id number] [place] [address]- 2261 Jun, [facility] [place] [facility] [address] [id number] [place] [address]- 2575 Jun, [facility] [place] [facility] [address] [id number] [place] [address]- 5046 May, [facility] [place] [facility] [address] [id number] [place] [address]- 3405 May, [facility] [place] [facility] [address] [id number] [place] [address]- 7175 10 May, 2013 [facility] [address] [id number] [place] [address]- 5229 10 May, 2013 [facility] [place] [facility] [address] [id number] [place] [address]- 7315 08 May, 2013 [facility] [address] [id number] [place] [address]- 1727 Mar, [facility] [place] [facility] [address] [id number] [place] [address]- 3881 Mar, [facility] [address] [id number] [place] [address]- 3887 Mar, [facility] [place] [facility] [address] [id number] [place] [address]- 6565 Mar, [facility] [place] [facility] [address] [id number] [place] [address]- 8875 Mar, [facility] [address] [id number] [place] [address]- 1661 Mar, [facility] [place] [facility] [address] [id number] [place] [address]- 0699 Feb, [facility] [address] [id number] [place] [address]- 0999 Feb, [facility] [place] [facility] [address] [id number] [place] [address]- 4101 Feb, [facility] [place] [facility] [address] [id number] [place] [address]- 4979 Feb, [facility] [place] [facility] [address] [id number] [place] [address]- 3715 Feb, [facility] [place] [facility] [address] [id number] [place] [address]- 7066 Feb, [facility] [place] [facility] [address] [id number] [place] [address]- 1137 Feb, [facility] [place] [facility] [address] [id number] [place] [address]- 3142 Feb, [facility] [place] [facility] [address] [id number] [place] [address]- 9170 Feb, [facility] [place] [facility] [address] [id number] [place] [address]- 9364 Feb, [facility] [place] [facility] [address] [id number] [place] [address]- 5491 Feb, [facility] [place] [facility] [address] [id number] [place] [address]- 7832 Feb, [facility] [place] [facility] [address] [id number] [place] [address]- 5128 Jan, [facility] [place] [facility] [address] [id number] [place] [address]- 6070 Jan, [facility] [place] [facility] [address] [id number] [place] [address]- 1822 Dec, [facility] [place] [facility] [address] [id number] [place] [address]- 7974 Dec, [facility] [place] [facility] [address] [id number] [place] [address]- 2650 Nov, [facility] [place] [facility] [address] [id number] [place] [address]- 1451 Nov, [facility] [place] [facility] [address] [id number] [place] [address]- 1133 Nov, [facility] [place] [facility] [address] [id number] [place] [address]- 4481 Nov, [facility] [place] [facility] [address] [id number] [place] [address]- 4051 Nov, [facility] [place] [facility] [address] [id number] [place] [address]- 6588 Oct, [facility] [place] [facility] [address] [id number] [place] [address]- 6657 September, [facility] [address] [id number] [place] [address]- 8428 Aug, [facility] [address] [id number] [place] [address]- 9355 Jul, [facility] [address] [id number] [place] [address]- 9601 Jul, [facility] [address] [id number] [place] [address]- 6253 Jul, [facility] [address] [id number] [place] [address]- 5643 28 Jun, 2012 [facility] [address] [id number] [place] [address]- 3776 14 Jun, 2012 [facility] [address] [id number] [place] [address]- 0359 12 Jun, 2012 [facility] [address] [id number] [place] [address]- 4972 Jun, [facility] [address] [id number] [place] [address]- 1988 07 Jun, 2012 [facility] [address] [id number] [place] [address]- 5449 May, [facility] [address] [id number] [place] [address]- 3057 May, [facility] [address] [id number] [place] [address]- 2490 Apr, [facility] [address] [id number] [place] [address]- 1369 Apr, [facility] [address] [id number] [place] [address]- 9692 Mar, [facility] [address] [id number] [place] [address]- 6890 Mar, [facility] [place] [facility] [address] [id number] [place] [address]- 1362 Mar, [facility] [place] [facility] [address] [id number] [place] [address]- 8021 Mar, [facility] [place] [facility] [address] [id number] [place] [address]- 2289 Mar, [facility] [place] [facility] [address] [id number] [place] [address]- 4281 Mar, [facility] [place] [facility] [address] [id number] [place] [address]- 5757 Mar, [facility] [place] [facility] [address] [id number] [place] [address]- 9325 Mar, [facility] [place] [facility] [address] [facility] [address] [facility] [id number] [place] [address]- 1921 Mar, [facility] [place] [facility] [address] [id number] [place] [address]- 5822 Mar, [facility] [place] [facility] [address] [facility] [address] [facility] [id number] [place] [address]- 7351 Feb, [facility] [place] [facility] [address] [facility] [address] [facility] [id number] [place] [address]- 3032 Feb, [facility] [place] [facility] [address] [facility] [address] [facility] [id number] [place] [address]- 6310 Feb, [facility] [place] [facility] [address] [id number] [place] [address]- 0912 30 Feb, 2012 [facility] [place] [facility] [address] [id number] [place] [address]- 3077 Feb, [facility] [place] [facility] [address] [id number] [place] [address]- 9385 Feb, [facility] [place] [facility] [address] [facility] [address] [facility] [id number] [place] [address]55 06 Jan, 2012 [facility] [place] [facility] [address] [id number] [place] [address]- 9015 Jan, [facility] [address] [id number] [place] [address]- 8634 Dec, [facility] [place] [facility] [address] [id number] [place] [address]- 1768 Dec, [facility] [place] [facility] [address] [id number] [place] [address]- 0302 Dec, [facility] [place] [facility] [address] [id number] [place] [address]- 2753 Nov, [facility] [place] [facility] [address] [id number] [place] [address]- 3671 September, [facility] [place] [facility] [address] [id number] [place] [address]- 1126 September, [facility] [address] [id number] [place] [address]- 3164 September, [facility] [place] [facility] [address] [id number] [place] [address]- 3528 September, [facility] [address] [id number] [place] [address]- 7145 Aug, [facility] [place] [facility] [address] [id number] [place] [address]- 2165 Aug, [facility] [place] [facility] [address] [id number] [place] [address]- 5776 Aug, [facility] [place] [facility] [address] [id number] [place] [address]- 6321 Aug, [facility] [place] [facility] [address] [id number] [place] [address]- 5451 05 Aug, 2011 [facility] [place] [facility] [address] [id number] [place] 4599 Jul, [facility] [place] [facility] [address] [id number] [place] [address]- 4241 Jul, [facility] [place] [facility] [address] [id number] [place] [address]- 4445 Jul, [facility] [place] [facility] [address] [id number] [place] [address]- 5196 29 Jun, 2011 [facility] [place] [facility] [address] [id number] [place] [address] 2546 17 Jun, 2011 [facility] [place] [facility] [address] [id number] [place] [address]- 3766 13 Jun, 2011 [facility] [place] [facility] [address] [id number] [place] [address]- 4409 10 Jun, 2011 [facility] [place] [facility] [address] [id number] [place] [address]- 6576 07 Jun, 2011 [facility] [place] [facility] [address] [id number] [place] [address]- 0919 Jun, [facility] [place] [facility] [address] [id number] [place] [address]- 0921 Jun, [facility] [place] [facility] [address] [id number] [place] [address]- 9118 May, [facility] [place] [facility] [address] [address] [facility] [id number] [place] [address]- 0136 May, [facility] [place] [facility] [address] [id number] [place] [address]- 1557 May, [facility] [place] [facility] [address] [id number] [place] [address]- 6328 May, [facility] [place] [facility] [address] [id number] [place] [address]- 4587 Apr, [facility] [place] [facility] [address] [id number] [place] [address]- 3360 Apr, [facility] [place] [facility] [address] [id number] [place] [address]- 1328 Mar, [facility] [place] [facility] [address] [id number] [place] [address]- 4610 Mar, [facility] [address] [id number] [place] [address]- 2142 Mar, [facility] [place] [facility] [address] [id number] [place] [address]- 8586 11 Nov, 2010 [facility] [place] [facility] [address] [id number] [place] [address]- 9466 13 May, 2010 [facility] [place] [facility] [address] [id number] [place] [address] 2542 23 Apr, 2010 [facility] [place] [facility] [address] [id number] [place] [address]- 7666 Apr, [facility] [place] [facility] [address] [id number] [place] [address]- 2673 Apr, [facility] [place] [facility] [address] [id number] [place] [address]- 0102 Apr, [facility] [place] [facility] [address] [id number] [place] [address]- 7698 Apr, [facility] [place] [facility] [address] [id number] [place] [address]- 1861 Mar, [facility] [place] [facility] [address] [id number] [place] [address]- 7529 08 Mar, 2010 [facility] [place] [facility] [address] [id number] [place] [address]- 6157 20 Feb, 2010 [facility] [place] [facility] [address] [id number] [place] [address]- 4151 14 Aug, 2009 [facility] [place] [facility] [address] [id number] [place] [address]- 8781 10 Jul, 2009 [facility] [place] [facility] [address] [id number] [place] [address]- 1317 17 Jun, 2009 [facility] [place] [facility] [address] [id number] [place] [address]- 0158 30 Apr, 2009 [facility] [place] [facility] [address] [id number] [place] [address]- 2546 Apr, [facility] [address] [id number] [place] [address]- 3936 Mar, [facility] [address] [id number] [place] [address]- 2546 Mar, [facility] [address] [id number] [place] [address] 2546 Feb, [facility] [address] [facility] [id number] [place] [address] 2546 Dec, [facility] [address] [id number] [place] [address]- 0546 Oct, IMMUNIZATIONS No Known Immunizations SOCIAL HISTORY Never Assessed REASON FOR VISIT Blood Pressure, -Eloy DUKE PLAN OF CARE Activity Details Follow Up Next available with Jordy for well woman Reason: VITAL SIGNS Height 66 in 2017-11-10 Weight 273 lbs 2017-11-10 Temperature 98.9 degrees Fahrenheit 2017-11-10 Heart Rate 87 bpm 2017-11-10 Respiratory Rate 20 2017-11-10 Oximetry on room air:97 % 2017-11-10 BMI 44.06 kg/m2 2017-11-10 Blood pressure systolic 138 mmHg 2017-11-10 Blood pressure diastolic 70 mmHg 2017-11-10 MEDICATIONS Medication Instructions Dosage Frequency Start Date End Date Duration Status Viibryd 40 MG Orally Once a day 1 tablet 24h Active Carbamazepine 200 mg Orally in the morning and 2 tablets at bedtime 1 tablet Active Klor-Con M20 20 MEQ Orally Once a day 1 tablet with food 24h 90 days Active Flonase 50 MCG/ACT Nasally Once a day 1 spray in each nostril 24h Active Famotidine 20 MG Orally Once a day 1 tablet 24h Active Abilify 10 MG Orally Once a day 1 tablet 24h Active Alprazolam 0.5 mg take 1 tablet by Oral route 2 times per day Jan, Active Pepcid 20 mg Orally 2 times a day 1 tablet at bedtime 12h 90 Active Metoprolol Succinate ER 50 mg Orally Once a day 1 tablet 24h Active Aspirin 325 MG Orally Once a day 1 tablet 24h Active Lisinopril 40 MG TAKE ONE TABLET BY MOUTH ONCE DAILY Active ProAir HFA 108 (90 Base) mcg/act 2 puffs by Inhalation route 4 times per day PRN needs to keep appointment 9-4-14 Dec, Active BusPIRone HCl 10 mg Orally twice a day 1 tablet 12h Active Nortriptyline HCl 25 MG Orally Once a day at bedtime 2 capsule Active Amlodipine Besylate 10 mg Orally Once a day 1 tablet 24h Active RESULTS No Results PROCEDURES Procedure Date Ordered Result Body Site [facility] VISIT ESTABLISHED PATIENT November 10, 2017 INSTRUCTIONS MEDICATIONS ADMINISTERED No Known Medications MEDICAL (GENERAL) HISTORY Type Description Date Medical History hypertension Medical History neuropathy Medical History depression Medical History anxiety Medical History Hyposmolality and/or hyponatremia Surgical History cleaned out left side of sinuses 2013 Surgical History colonscopy 09/03/15 Hospitalization History cellulitis 09/2013 Hospitalization History surgery 2013 Hospitalization History A Fib--[facility] 03/08/2016 Hospitalization History acute chest pain, hypertensive urgency, paroxsysmal htn-[facility] 05/10/16
--- OUTSIDE RECORDS SUMMARY | 2018-09-17 11:48 | XMS REPORT ---
Author Author JORDY DESIREE [facility] Address [address] [place] [address] Care Team Providers Care Protection Consultant Name Role Phone DESIREE SPENCE Unavailable PROBLEMS Type Condition ICD9-CM Code [id number] Code Onset Dates Condition Status SNOMED Code Problem Vitamin D deficiency E55.9 Active 24487926 Problem Chronic frontal sinusitis J32.1 Active 45230094 Problem Hyponatremia E87.1 Active 87121847 Problem BMI 40.0-44.9, adult Z68.41 Active 421308373 Problem Seasonal allergies J30.2 Active 827557398 Problem Secondary pulmonary arterial hypertension I27.21 Active 57888228 Problem Other chronic gastritis without hemorrhage K29.50 Active 1464636 Problem Paroxysmal atrial fibrillation I48.0 Active 197002685 Problem Fasciculations of muscle R25.3 Active 34446941 Problem Depression, unspecified depression type F32.9 Active 53244710 Problem Mild intermittent asthma without complication J45.20 Active 259051911 Problem Chronic migraine G43.709 Active 75709434 Problem Primary insomnia F51.01 Active 334937623 Problem Generalized anxiety disorder F41.1 Active 726445078 Problem Elevated alkaline phosphatase level R74.8 Active 452830218 Problem Obstructive sleep apnea G47.33 Active 95759444 Problem Hidradenitis L73.2 Active 67120528 Problem Essential hypertension I10 Active 99013460 Problem Idiopathic peripheral neuropathy G60.9 Active 97686079 Problem Hyperlipidemia E78.5 Active 12759458 ALLERGIES No Information ENCOUNTERS Encounter Location Date Diagnosis [facility] [address], [place] [address] Jan, [facility] [address], [place] [address] Dec, [facility] [address], [place] [address] 3971 Dec, Essential hypertension I10 [facility] [address], [place] [address] 9[address] Nov, Essential hypertension I10 [facility] [address], [place] [address] 9910 Nov, [facility] [address], [place] [address] 7[address] Nov, Essential hypertension I10 and BMI 40.0-44.9, adult Z68.41 [facility] [address], [place] [address]17 Oct, Essential hypertension I10 and Chronic kidney disease, unspecified CKD stage N18.9 [facility] [id number] [address] Oct, Essential hypertension I10 and Chronic kidney disease, unspecified CKD stage N18.9 [facility] [address], [place] [address] 8[address] Oct, [facility] [address], [place] [address] September, Medicare annual wellness visit, initial Z00.00 ; Mild intermittent asthma without complication J45.20 ; Generalized anxiety disorder F41.1 ; Depression, unspecified depression type F32.9 ; Paroxysmal atrial fibrillation I48.0 ; Obstructive sleep apnea G47.33 ; Hyponatremia E87.1 ; Need for hepatitis C screening test Z11.59 ; Encounter for immunization Z23 ; Secondary pulmonary arterial hypertension I27.21 and BMI 40.0-44.9, adult Z68.41 [facility] [address], [place] [address] Aug, Essential hypertension I10 [facility] [address], [place] [address] 09 Jun, 2017 Dysuria R30.0 ; UTI symptoms R39.9 and Candidiasis of breast B37.89 [facility] [address] [place] [id number] [place] [address] 74745- 6813 09 Jun, 2017 Hyponatremia E87.1 [facility] [id number] [place] [address] 32716- 3647 Jun, Hyponatremia E87.1 [facility] [id number] [place] [address] 44288- 9370 Jun, Hyponatremia E87.1 [facility] [id number] [place] [address] 20447- 2605 Jun, [facility] [id number] [place] [address] 12728- 1449 May, Hyponatremia E87.1 [facility] [id number] [place] [address] 35978- 8243 May, Hyponatremia E87.1 [facility] [id number] [place] [address] 68287- 7525 May, Hyponatremia E87.1 [facility] [id number] [place] [address] 85482- 4885 May, Hyponatremia E87.1 [facility] [id number] [place] [address] 96395- 9249 Apr, Hyponatremia E87.1 ; Fasciculations of muscle R25.3 and Hyperlipidemia E78.5 [facility] [id number] [place] [address] 95213- 0993 Apr, Cough R05 ; Hyponatremia E87.1 ; Fasciculations of muscle R25.3 ; Primary insomnia F51.01 ; Essential hypertension I10 ; Hyperlipidemia E78.5 ; Screening for breast cancer Z12.31 and BMI 40.0-44.9, adult Z68.41 [facility] [id number] [place] [address] 90765- 3958 18 Apr, 2017 Essential hypertension I10 [facility] [id number] [place] [address] 82721- 3609 14 Mar, 2017 [facility] [address] [facility] [id number] [place] [address]- 0943 Mar, [facility] [address] [facility] [id number] [place] [address]- 2452 09 Mar, 2017 [facility] [id number] [place] [address]- 9929 Feb, [facility] [address] [facility] [id number] [place] [address]- 0255 Jan, [facility] [address] [facility] [id number] [place] [address]- 3647 Dec, Essential hypertension I10 [facility] [address] [facility] [id number] [place] [address]- 4017 Dec, [facility] [address] [place] [address]- 8860 Dec, Essential hypertension I10 [facility] [address] [facility] [id number] [place] [address]- 9578 Nov, [facility] [id number] [place] [address]- 9960 Oct, [facility]ential hypertension I10 [facility] [id number], [place] [address] 3068 Oct, Essential hypertension I10 [facility] [address] [place] [address]- 8196 Oct, [facility] [address] [facility] [id number], [place] [address]- 8146 September, [facility] [address] [place] [address]- 5399 September, Essential hypertension I10 [facility] [address] [facility] [id number], [place] [address]- 6330 September, [facility] [address], [place] [address]- 6772 September, Essential hypertension I10 ; Hyperlipidemia E78.5 and Hyponatremia E87.1 [facility] [id number] [place] [address] 47954- 6113 September, Mild intermittent asthma without complication J45.20 ; Essential hypertension I10 ; Hyperlipidemia E78.5 ; Hyponatremia E87.1 and Dysuria R30.0 [facility] [id number] [place] [address] 81476- 1888 September, Other chronic gastritis without hemorrhage K29.50 ; Paroxysmal atrial fibrillation I48.0 and Essential hypertension I10 [facility] [id number] [place] [address] 77383- 9370 Aug, [facility] [id number] [place] [address] 30557- 0918 Jul, [facility] [id number] [place] [address] 47470- 9321 14 Jun, 2016 [facility] [id number] [place] [address] 42891 -9896 07 Jun, 2016 Dysuria R30.0 and Acute cystitis with hematuria N30.01 [facility] [id number] [place] [address] 94447- 1051 Jun, Essential hypertension I10 [facility] [id number] [place] [address] 76702- 8246 May, Paroxysmal atrial fibrillation I48.0 [facility] [id number] [place] [address] 17610- 2889 May, Other chronic gastritis without hemorrhage K29.50 [facility] [id number] [place] [address] 43262- 9704 May, [facility] [id number] [place] [address] 55830- 2119 May, Hyponatremia E87.1 ; Essential hypertension I10 and Other chronic gastritis without hemorrhage K29.50 [facility] [address], [place] [address]- 1271 10 May, 2016 Hyponatremia E87.1 [facility] [id number] [place] [address] 79101- 9844 May, Hyponatremia E87.1 [facility] [id number] [place] [address] [id number] May, [facility] [id number] [place] [address] 70853- 0410 Apr, [facility] [id number] [place] [address] 43079- 2812 Apr, [facility] [id number] [place] [address] 00977- 7500 Mar, Essential hypertension I10 and Candidal intertrigo B37.2 [facility] [id number] [place] [address] 39201- 5705 Mar, Hyponatremia E87.1 [facility] [id number] [place] [address] 60635- 0878 Mar, [facility] [id number] [place] [address] 84335- 0655 Mar, Hyponatremia E87.1 [facility] [id number] [place] [address] 62612- 9557 Mar, Essential hypertension I10 ; Hyponatremia E87.1 ; Slurred speech R47.81 ; Paroxysmal atrial fibrillation I48.0 and Elevated blood sugar R73.9 [facility] [id number] [place] [address] 41790- 6420 Mar, [facility] [id number] [place] [address] 88165- 8616 Mar, [facility] [id number] [place] [address] 72307- 4570 Feb, [facility] [id number] [place] [address] 75099- 2750 Jan, [facility] [address], [place] [address]- 7233 Dec, [facility] [id number] [place] [address] 69064 -1483 Nov, Scratched by cat, initial encounter W55.03XA and Other injury of unspecified body region T14.8 [facility] [id number] [place] [address] 75458- 8690 Nov, [facility] [id number] [place] [address] 89622- 7322 Oct, [facility] [id number] [place] [address] 56585- 9063 September, [facility] [id number] [place] [address] 30211- 8362 Aug, Elevated alkaline phosphatase level R74.8 [facility] [id number] [place] [address] 00422- 7837 Jul, [facility] [id number] [place] [address] 84822- 6221 Jun, Essential hypertension I10 and Bright red blood per rectum K62.5 [facility] [id number] [place] [address] 79365- 4112 Jun, Elevated alkaline phosphatase level R74.8 [facility] [address] [place] [address] 79415- 5543 Jun, [facility] [id number] [place] [address] 82244- 6970 May, Essential hypertension I10 ; Hyperlipidemia E78.5 and Well woman exam (no gynecological exam) Z00.00 [facility] [address] [place] [address] 43866- 0188 May, [facility] [id number] [place] [address] 93357- 6206 May, [facility] [id number] [place] [address] 44339- 4429 Mar, [facility] [id number] [place] [address] 04169- 5885 Mar, [facility] [id number] [place] [address] 66150- 0494 Mar, [facility] [id number] [place] [address] 443208- 1319 Feb, Acute recurrent maxillary sinusitis J01.01 ; Asthma, unspecified, unspecified status 493.90 ; Seasonal allergies J30.2 and Cat allergies J30.81 [facility] [id number] [place] [address] 18815- 4347 Feb, Upper respiratory tract infection, unspecified upper respiratory infection J06.[address] [address]65- 4546 Jan, [facility] [id number] [place] [address] 941817- 5749 Jan, Dysphagia 787.20 and GERD (gastroesophageal reflux disease) 530.81 [facility] [id number] [place] [address] 99670- 7483 Jan, Breast lesion 611.9 [facility] [id number] [place] [address] 295331- 2791 Dec, Breast lesion 611.9 [facility] [id number] [place] [address] 56251- 8724 Dec, Breast lesion 611.9 [facility] [id number] [place] [address] 689288- 4051 Nov, Fatigue 780.79 and Hyperlipidemia 272.4 [facility] [id number] [place] [address] 69139- 3973 Nov, Hypertension 401.9 ; Hyperlipidemia 272.4 ; Chronic frontal sinusitis 473.1 and Fatigue 780.79 [facility] [address] [id number] [place] [address]- 9280 Nov, [facility] [address] [id number] [place] [address]- 8386 Oct, [facility] [place] [facility] [address] [facility] [id number] [place] [address]- 1350 Oct, [facility] [address] [id number], [place] [address]- 1638 September, [facility] [address] [id number] [place] [address]- 3738 September, [facility] [address] [facility] [id number] [place] [address]- 4026 September, [facility] [address] [facility] [id number] [place] [address]- 8545 September, [facility] [address] [facility] [id number], [place] [address]- 6334 Aug, [facility] [address] [facility] [id number] [place] [address]- 1850 Aug, [facility] [address] [facility] [id number] [place] [address]- 7954 Aug, [facility] [id number], [place] [address]- 8514 Jul, [facility] [place] [facility] [address] [facility] [id number], [place] [address]- 0424 Jul, [facility] [place] [facility] [address] [facility] [id number] [place] [address]- 0615 Jul, [facility] [place] [facility] [address] [facility] [id number], [place] [address]- 3533 Jul, [facility] [place] [facility] [address] [facility] [id number] [place] [address]- 1020 18 Jul, 2014 [facility] [place] [facility] [address] [facility] [id number] [place] [address]- 2502 17 Jul, 2014 [facility] [place] [facility] [address] [id number] [place] [address]- 1813 17 Jul, 2014 [facility] [place] [facility] [address] [id number] [place] [address]- 8954 16 Jul, 2014 [facility] [place] [facility] [address] [id number] [place] [address]- 8926 16 Jul, 2014 [facility] [place] [facility] [address] [id number] [place] [address]- 2692 Jul, [facility] [place] [facility] [address] [id number] [place] [address]- 5792 Jul, [facility] [place] [facility] [address] [id number] [place] [address]- 3548 Jul, [facility] [place] [facility] [address] [id number] [place] [address]- 0886 Jul, [facility] [place] [facility] [address] [id number] [place] [address]- 7560 Jul, [facility] [place] [facility] [address] [id number] [place] [address]- 0539 Jul, [facility] [place] [facility] [address] [facility] [id number] [place] [address]- 0138 Jun, [facility] [place] [facility] [address] [id number] [place] [address]- 2546 Jun, [facility] [place] [facility] [address] [facility] [id number] [place] [address]- 2546 Jun, [facility] [place] [facility] [address] [id number] [place] [address]- 2541 Jun, [facility] [place] [facility] [address] [facility] [id number] [place] [address]- 2546 May, [facility] [place] [facility] [address] [id number] [place] [address]- 1059 May, [facility] [place] [facility] [address] [id number] [place] [address]- 4125 May, [facility] [place] [facility] [address] [id number] [place] [address]- 3359 May, [facility] [place] [facility] [address] [id number] [place] [address]- 1808 Apr, [facility] [place] [facility] [address] [id number] [place] [address]- 3963 Apr, [facility] [place] [facility] [address] [id number] [place] [address]- 2259 Apr, [facility] [place] [facility] [address] [id number] [place] [address]- 3261 Apr, [facility] [place] [facility] [address] [id number] [place] [address]- 9671 Apr, [facility] [place] [facility] [address] [id number] [place] [address]- 0793 Apr, [facility] [place] [facility] [address] [id number] [place] [address]- 9942 Mar, [facility] [place] [facility] [address] [id number] [place] [address]- 8798 Mar, [facility] [place] [facility] [address] [id number] [place] [address]- 6436 Mar, [facility] [place] [facility] [address] [id number], [place] [address]- 1754 Mar, [facility] [place] [facility] [address] [id number] [place] [address]- 4409 Mar, [facility] [place] [facility] [address] [id number] [place] [address]- 6049 Mar, [facility] [place] [facility] [address] [id number] [place] [address]- 9536 Mar, [facility] [place] [facility] [address] [id number], [place] [address]- 3094 Mar, [facility] [place] [facility] [address] [id number] [place] [address]- 5992 Mar, [facility] [place] [facility] [address] [id number], [place] [address]- 0028 Mar, [facility] [place] [facility] [address] [facility] [id number] [place] [address]- 4364 Mar, [facility] [place] [facility] [address] [id number], [place] [address]- 0892 Mar, [facility] [place] [facility] [address] [facility] [id number] [place] [address]- 8997 Mar, [facility] [place] [facility] [address] [facility] [id number] [place] [address]- 1704 Mar, [facility] [place] [facility] [address] [facility] [id number], [place] [address]- 8660 Mar, [facility] [place] [facility] [address] [facility] [id number], [place] [address]- 4600 Mar, [facility] [place] [facility] [address] [facility] [id number], [place] [address]- 1685 Mar, [facility] [place] [facility] [address] [facility] [id number], [place] [address]- 7599 Feb, [facility] [place] [facility] [address] [facility] [id number], [place] [address]- 4680 Feb, [facility] [place] [facility] [address] [facility] [id number], [place] [address]- 3760 Feb, [facility] [place] [facility] [address] [id number], [place] [address]- 1708 Feb, [facility] [place] [facility] [address] [facility] [id number], [place] [address]- 6329 Feb, [facility] [place] [facility] [address] [facility] [id number], [place] [address]- 7245 Feb, [facility] [place] [facility] [address] [id number] [place] [address]- 4591 Feb, [facility] [place] [facility] [address] [id number] [place] [address]- 4748 Feb, [facility] [place] [facility] [address] [id number] [place] [address]- 3746 Feb, [facility] [place] [facility] [address] [id number] [place] [address]- 1202 Feb, [facility] [place] [facility] [address] [id number] [place] [address]- 1698 Feb, [facility] [place] [facility] [address] [id number] [place] [address]- 9092 Feb, [facility] [place] [facility] [address] [id number] [place] [address]- 6663 Feb, [facility] [place] [facility] [address] [id number] [place] [address]- 1889 Feb, [facility] [place] [facility] [address] [id number] [place] [address]- 0900 Feb, [facility] [place] [facility] [address] [id number] [place] [address]- 5508 Feb, [facility] [place] [facility] [address] [id number] [place] [address]- 1178 Feb, [facility] [place] [facility] [address] [id number] [place] [address]- 5179 Feb, [facility] [place] [facility] [address] [id number] [place] [address]- 1958 Feb, [facility] [place] [facility] [address] [id number] [place] [address] 30 Jan, 2014 [facility] [place] [facility] [address] [id number] [place] [id number] 30 Jan, 2014 [facility] [place] [facility] [address] [id number] [place] [address] Jan, [facility] [place] [facility] [address] [id number] [place] [address] 29 Jan, 2014 [facility] [place] [facility] [address] [id number] [place] [address] Jan, [facility] [place] [facility] [address] [id number] [place] [address] Jan, [facility] [place] [facility] [address] [id number] [place] [address] Jan, [facility] [place] [facility] [address] [id number] [place] [address] Jan, [facility] [place] [facility] [address] [id number] [place] [address] Jan, [facility] [place] [facility] [address] [id number] [place] [address] Dec, [facility] [place] [facility] [address] [id number] [place] [address] Dec, [facility] [place] [facility] [address] [id number] [place] [address] Dec, [facility] [place] [facility] [address] [id number] [place] [address] Dec, [facility] [place] [facility] [address] [id number], [place] [address] Dec, [facility] [place] [facility] [address] [id number], [place] [address] Dec, [facility] [place] [facility] [address] [id number] [place] [address] Dec, [facility] [place] [facility] [address] [id number] [place] [address] Dec, [facility] [place] [facility] [address] [id number] [place] [address] Dec, [facility] [place] [facility] [address] [id number] [place] [address] Nov, [facility] [place] [facility] [address] [id number] [place] [address] Nov, [facility] [place] [facility] [address] [id number] [place] [address] Nov, [facility] [place] [facility] [address] [id number] [place] [address] Nov, [facility] [place] [facility] [address] [id number] [place] [address] Nov, [facility] [place] [facility] [address] [id number] [place] [address] Nov, [facility] [place] [facility] [address] [id number] [place] [address] Oct, [facility] [place] [facility] [address] [id number] [place] [address] Oct, [facility] [place] [facility] [address] [id number] [place] [address] Oct, [facility] [place] [facility] [address] [id number] [place] [address] Oct, [facility] [place] [facility] [address] [id number] [place] [address] Oct, [facility] [place] [facility] [address] [id number] [place] [address] Oct, [facility] [place] [facility] [address] [id number] [place] [address] Oct, [facility] [place] [facility] [address] [id number] [place] [address] Oct, [facility] [place] [facility] [address] [id number] [place] [address] Oct, [facility] [place] [facility] [address] [id number] [place] [address] Oct, [facility] [place] [facility] [address] [id number] [place] [address] Oct, [facility] [place] [facility] [address] [id number] [place] [address] 58[address] Oct, [facility] [place] [facility] [address] [id number] [place] [address] Oct, [facility] [place] [facility] [address] [id number] [place] [address] Oct, [facility] [place] [facility] [address] [id number] [place] [address] September, [facility] [place] [facility] [address] [id number] [place] [address] 1297 September, [facility] [place] [facility] [address] [id number] [place] [address] September, [facility] [place] [facility] [address] [id number] [place] [address]- 7595 September, [facility] [place] [facility] [address] [id number] [place] [address] September, [facility] [place] [facility] [address] [id number] [place] [address]- 0572 September, [facility] [place] [facility] [address] [id number] [place] [address] 8711 September, [facility] [place] [facility] [address] [id number] [place] [address]- 9013 September, [facility] [place] [facility] [address] [id number] [place] [address]- 9406 September, [facility] [place] [facility] [address] [id number] [place] [address]- 4996 September, [facility] [place] [facility] [address] [id number] [place] [address]- 9988 September, [facility] [place] [facility] [address] [id number] [place] [address]- 2546 September, [facility] [place] [facility] [address] [id number] [place] [address]- 459[address] September, [facility] [place] [facility] [address] [id number] [place] [address]- 1400 September, [facility] [place] [facility] [address] [id number] [place] [address]- 1327 September, [facility] [place] [facility] [address] [id number] [place] [address]- 6491 September, [facility] [place] [facility] [address] [id number] [place] [address]- 0064 September, [facility] [place] [facility] [address] [id number] [place] [address]- 7411 September, [facility] [place] [facility] [address] [id number] [place] [address]- 8891 September, [facility] [place] [facility] [address] [id number] [place] [address]- 8679 Aug, [facility] [place] [facility] [address] [id number] [place] [address]- 5573 Aug, [facility] [place] [facility] [address] [id number] [place] [address]- 7074 Jul, [facility] [place] [facility] [address] [id number] [place] [address]- 5746 Jul, [facility] [place] [facility] [address] [id number] [place] [address]- 6694 Jul, [facility] [place] [facility] [address] [id number] [place] [address]- 9456 Jul, [facility] [place] [facility] [address] [id number] [place] [address]- 8924 Jul, [facility] [place] [facility] [address] [id number] [place] [address]- 7944 Jul, [facility] [place] [facility] [address] [id number] [place] [address]- 7948 27 Jul, 2013 [facility] [place] [facility] [address] [id number] [place] [address]- 7707 Jul, [facility] [place] [facility] [address] [id number] [place] [address]- 0886 Jul, [facility] [place] [facility] [address] [id number] [place] [address]- 1619 Jul, [facility] [place] [facility] [address] [id number] [place] [address]- 9207 Jul, [facility] [place] [facility] [address] [id number] [place] [address]- 4567 14 Jul, 2013 [facility] [place] [facility] [address] [id number] [place] [address]- 2153 Jul, [facility] [place] [facility] [address] [id number] [place] [address]- 1550 Jul, [facility] [place] [facility] [address] [id number] [place] [address]- 7080 10 Jun, 2013 [facility] [place] [facility] [address] [id number] [place] [address]- 5327 Jun, [facility] [place] [facility] [address] [id number] [place] [address]- 3093 Jun, [facility] [place] [facility] [address] [id number] [place] [address]- 2885 Jun, [facility] [place] [facility] [address] [id number] [place] [address]- 4671 May, [facility] [place] [facility] [address] [id number] [place] [address]- 1858 May, [facility] [place] [facility] [address] [id number] [place] [address]- 9237 May, [facility] [place] [facility] [address] [id number] [place] [address]- 0181 May, [facility] [place] [facility] [address] [id number] [place] [address]- 0724 May, [facility] [place] [facility] [address] [id number] [place] [address]- 0701 Mar, [facility] [place] [facility] [address] [id number] [place] [address]- 5602 Mar, [facility] [place] [facility] [address] [id number] [place] [address]- 5922 Mar, [facility] [place] [facility] [address] [id number] [place] [address]- 6621 Mar, [facility] [place] [facility] [address] [id number] [place] [address]- 9830 Mar, [facility] [place] [facility] [address] [id number] [place] [address]- 6689 Mar, [facility] [place] [facility] [address] [id number], [place] [address]- 9045 Feb, [facility] [place] [facility] [address] [id number] [place] [address]- 5139 Feb, [facility] [place] [facility] [address] [id number], [place] [address]- 9417 Feb, [facility] [place] [facility] [address] [id number], [place] [address]- 5651 Feb, [facility] [place] [facility] [address] [id number], [place] [address]- 0747 Feb, [facility] [place] [facility] [address] [id number], [place] [address]- 8529 Feb, [facility] [place] [facility] [address] [id number], [place] [address]- 2895 Feb, [facility] [place] [facility] [address] [id number], [place] [address]- 5696 Feb, [facility] [place] [facility] [address] [id number] [place] [address] 2540 Feb, [facility] [address] [id number] [place] [address]- 4677 Feb, [facility] [place] [facility] [address] [id number] [place] [address]- 2341 Feb, [facility] [address] [id number] [place] [address]- 9055 Feb, [facility] [place] [facility] [address] [id number] [place] [address]- 5204 Jan, [facility] [place] [facility] [address] [id number] [place] [address]- 7707 Jan, [facility] [place] [facility] [address] [id number] [place] [address]- 6355 Dec, [facility] [place] [facility] [address] [id number] [place] [address]- 0854 Dec, [facility] [place] [facility] [address] [id number] [place] [address]- 0580 Nov, [facility] [place] [facility] [address] [id number] [place] [address]- 7182 Nov, [facility] [place] [facility] [address] [id number] [place] [address]- 5738 Nov, [facility] [place] [facility] [address] [id number] [place] [address]- 0866 Nov, [facility] [place] [facility] [address] [id number] [place] [address]- 2544 Nov, [facility] [place] [facility] [address] [id number] [place] [address]- 4570 Oct, [facility] [place] [facility] [address] [id number] [place] [address]- 2546 September, [facility] [place] [facility] [address] [id number] [place] [address]- 4549 Aug, [facility] [place] [facility] [address] [id number] [place] [address]- 3127 Jul, [facility] [address] [id number] [place] [address]- 4456 Jul, [facility] [place] [facility] [address] [id number] [place] [address] Jul, [facility] [place] [facility] [address] [id number] [place] [address]- 3895 Jun, [facility] [address] [id number] [place] [address]- 9570 Jun, [facility] [place] [facility] [address] [id number] [place] [address]- 2783 Jun, [facility] [address] [id number] [place] [address]- 5093 Jun, [facility] [address] [id number] [place] [address]- 0738 Jun, [facility] [address] [id number] [place] [address]- 9751 May, [facility] [address] [id number] [place] [address]- 5061 May, [facility] [address] [id number] [place] [address]- 2259 Apr, [facility] [address] [id number] [place] [address]- 3833 Apr, [facility] [place] [facility] [address] [id number] [place] [address]- 0341 Mar, [facility] [place] [facility] [address] [id number] [place] [address]174 Mar, [facility] [place] [facility] [address] [id number] [place] [address]- 2921 Mar, [facility] [place] [facility] [address] [id number], [place] [address]- 3104 Mar, [facility] [place] [facility] [address] [id number] [place] [address]- 0955 Mar, [facility] [place] [facility] [address] [id number], [place] [address]- 7760 Mar, [facility] [place] [facility] [address] [id number] [place] [address]- 4432 Mar, [facility] [place] [facility] [address] [id number] [place] [address]- 5778 Mar, [facility] [place] [facility] [address] [id number] [place] [address], [place] [address]- 6199 Mar, [facility] [place] [facility] [address] [id number] [place] [address]- 1624 Mar, [facility] [place] [facility] [address] [facility] [id number] [place] [address]- 0911 Feb, [facility] [place] [facility] [address] [id number], [place] [address]- 4687 Feb, [facility] [place] [facility] [address] [id number] [place] [address]- 1955 Feb, [facility] [place] [facility] [address] [facility] [id number] [place] [address]- 6642 Feb, [facility] [place] [facility] [address] [facility] [id number], [place] [address]- 7483 Feb, [facility] [place] [facility] [address] [id number], [place] [address]- 0103 Feb, [facility] [place] [facility] [address] [id number], [place] [address]- 2059 Jan, [facility] [place] [facility] [address] [facility] [id number], [place] [address]- 6139 Jan, [facility] [place] [facility] [address] [facility] [id number][place] [address]209 Dec, [facility] [place] [facility] [address] [id number] [place] [address]- 7670 Dec, [facility] [place] [facility] [address] [id number] [place] [address]- 1975 Dec, [facility] [place] [facility] [address] [id number] [place] [address]- 0566 Nov, [facility] [place] [facility] [address] [id number] [place] [address]- 0655 September, [facility] [place] [facility] [address] [id number] [place] [address]- 5023 September, [facility] [place] [facility] [address] [id number] [place] [address]- 5614 September, [facility] [place] [facility] [address] [id number] [place] [address]- 7432 September, [facility] [place] [facility] [address] [id number] [place] [address]- 2242 Aug, [facility] [place] [facility] [address] [id number] [place] [address]- 2047 Aug, [facility] [place] [facility] [address] [id number] [place] [address]- 4129 Aug, [facility] [place] [facility] [address] [id number] [place] [address]- 3855 Aug, [facility] [place] [facility] [address] [id number] [place] [address]- 6989 Aug, [facility] [place] [facility] [address] [id number] [place] [address]- 1906 Jul, [facility] [place] [facility] [address] [id number] [place] [address]- 0576 Jul, [facility] [place] [facility] [address] [id number] [place] [address]- 8259 Jul, [facility] [place] [facility] [address] [id number] [place] [address]- 4411 29 Jun, 2011 [facility] [address] [id number] [place] [address]- 5326 17 Jun, 2011 [facility] [place] [facility] [address] [id number] [place] [address]- 0666 13 Jun, 2011 [facility] [place] [facility] [address] [facility] [id number] [place] [address]- 6376 10 Jun, 2011 [facility] [place] [facility] [address] [id number] [place] [address]- 0165 07 Jun, 2011 [facility] [place] [facility] [address] [id number] [place] [address]- 0508 Jun, [facility] [place] [facility] [address] [facility] [id number] [place] [address]- 2189 Jun, [facility] [address] [id number] [place] [address]- 7176 May, [facility] [place] [facility] [address] [facility] [id number] [place] [address]- 2113 May, [facility] [place] [facility] [address] [id number] [place] [address]- 0780 May, [facility] [place] [facility] [address] [facility] [id number] [place] [address]- 8595 May, [facility] [address] [facility] [id number] [place] [address]- 3594 Apr, [facility] [place] [facility] [address] [id number], [place] [address]- 2590 Apr, [facility] [place] [facility] [address] [facility] [id number] [place] [address]- 7308 Mar, [facility] [place] [facility] [address] [facility] [id number] [place] [address]- 1158 Mar, [facility] [place] [facility] [address] [id number] [place] [address]- 5877 Mar, [facility] [place] [facility] [address] [id number] [place] [address] 2543 11 Nov, 2010 [facility] [address] [id number] [place] [address]- 5366 13 May, 2010 [facility] [place] [facility] [address] [id number] [place] [address]- 1616 23 Apr, 2010 [facility] [place] [facility] [address] [id number] [place] [address] 2546 13 Apr, 2010 [facility] [place] [facility] [address] [id number] [place] [address] 2543 13 Apr, 2010 [facility] [place] [facility] [address] [id number] [place] [address]- 4856 Apr, [facility] [place] [facility] [address] [id number] [place] [address]- 2837 Apr, [facility] [place] [facility] [address] [id number] [place] [address]- 9433 Mar, [facility] [address] [id number] [place] [address]- 4172 08 Mar, 2010 [facility] [address] [id number] [place] [address]- 8700 Feb, [facility] [address] [id number] [place] [address]- 8795 14 Aug, 2009 [facility] [place] [facility] [address] [id number] [place] [address]- 0459 Jul, [facility] [place] [facility] [address] [id number] [place] [address]- 2549 17 Jun, 2009 [facility] [place] [facility] [address] [id number] [place] [address]- 2546 30 Apr, 2009 [facility] [place] [facility] [address] [id number] [place] [address]- 2546 07 Apr, 2009 [facility] [place] [facility] [address] [id number] [place] [address]- 2542 Mar, [facility] [address] [facility] [id number] [place] [address]- 2546 Mar, [facility] [address] [facility] [id number], [place] [address]- 2546 Feb, [facility] [address] [facility] [id number], [place] [address]- 2546 Dec, [facility] [address] [facility] [id number], [place] [address]- 2546 Oct, IMMUNIZATIONS No Known Immunizations SOCIAL HISTORY Never Assessed REASON FOR VISIT Lab results PLAN OF CARE VITAL SIGNS MEDICATIONS Unknown [...] Hospitalization History surgery 2013 Hospitalization History A Fib--[facility] 03/08/2016 Hospitalization History acute chest pain, hypertensive urgency, paroxsysmal htn-[facility] 05/10/16
--- OUTSIDE RECORDS SUMMARY | 2018-09-17 11:49 | XMS REPORT ---
Author Author JORDY DESIREE [facility] Address [address] [place] [address] Care Team Providers Care Meter Engineer Name Role Phone DESIREE SPENCE Unavailable PROBLEMS Type Condition ICD9-CM Code WCL45-CI Code Onset Dates Condition Status SNOMED Code Problem Vitamin D deficiency E55.9 Active 52702350 Problem Chronic frontal sinusitis J32.1 Active 65246486 Problem Hyponatremia E87.1 Active 14038635 Problem BMI 40.0-44.9, adult Z68.41 Active 109546720 Problem Seasonal allergies J30.2 Active 556018397 Problem Secondary pulmonary arterial hypertension I27.21 Active 06480707 Problem Other chronic gastritis without hemorrhage K29.50 Active 1164211 Problem Paroxysmal atrial fibrillation I48.0 Active 956170633 Problem Fasciculations of muscle R25.3 Active 08333488 Problem Depression, unspecified depression type F32.9 Active 10913257 Problem Mild intermittent asthma without complication J45.20 Active 584763594 Problem Chronic migraine G43.709 Active 25341066 Problem Primary insomnia F51.01 Active 952460088 Problem Generalized anxiety disorder F41.1 Active 541456977 Problem Elevated alkaline phosphatase level R74.8 Active 641980238 Problem Obstructive sleep apnea G47.33 Active 10347137 Problem Hidradenitis L73.2 Active 01197674 Problem Essential hypertension I10 Active 43189521 Problem Idiopathic peripheral neuropathy G60.9 Active 27502898 Problem Hyperlipidemia E78.5 Active 62251047 ALLERGIES No Information ENCOUNTERS Encounter Location Date Diagnosis [facility] [address], [place] [address] Jan, [facility] [address] [address] Dec, [facility] [address] [address]59 Dec, Essential hypertension I10 [facility] [address], [place] [address] 1697 Nov, Essential hypertension I10 [facility] [address], [place] [address] Nov, [facility] [address], [place] [address] Nov, Essential hypertension I10 and BMI 40.0-44.9, adult Z68.41 [facility] [address], [place] [address] Oct, Essential hypertension I10 and Chronic kidney disease, unspecified CKD stage N18.9 [facility] [id number] [address] Oct, Essential hypertension I10 and Chronic kidney disease, unspecified CKD stage N18.9 [facility] [address] [address] Oct, [facility] [address], [place] [address] September, Medicare annual wellness visit, initial Z00.00 ; Mild intermittent asthma without complication J45.20 ; Generalized anxiety disorder F41.1 ; Depression, unspecified depression type F32.9 ; Paroxysmal atrial fibrillation I48.0 ; Obstructive sleep apnea G47.33 ; Hyponatremia E87.1 ; Need for hepatitis C screening test Z11.59 ; Encounter for immunization Z23 ; Secondary pulmonary arterial hypertension I27.21 and BMI 40.0-44.9, adult Z68.41 [facility] [address] [address] 3[address] Aug, Essential hypertension I10 [facility] [address], [place] [address] 09 Jun, 2017 Dysuria R30.0 ; UTI symptoms R39.9 and Candidiasis of breast B37.89 [facility] [address] [place] [id number] [place] [address] 07292- 6907 09 Jun, 2017 Hyponatremia E87.1 [facility] [id number] [place] [address] 36313- 2177 Jun, Hyponatremia E87.1 [facility] [id number] [place] [address] 64455- 2928 Jun, Hyponatremia E87.1 [facility] [id number] [place] [address] 97426- 1204 Jun, [facility] [id number] [place] [address] 18998- 7304 May, Hyponatremia E87.1 [facility] [id number] [place] [address] 34821- 1015 May, Hyponatremia E87.1 [facility] [id number] [place] [address] 60380- 2753 May, Hyponatremia E87.1 [facility] [id number] [place] [address] 24698- 5691 May, Hyponatremia E87.1 [facility] [id number] [place] [address] 51790- 3746 Apr, Hyponatremia E87.1 ; Fasciculations of muscle R25.3 and Hyperlipidemia E78.5 [facility] [id number] [place] [address] 88616- 2271 Apr, Cough R05 ; Hyponatremia E87.1 ; Fasciculations of muscle R25.3 ; Primary insomnia F51.01 ; Essential hypertension I10 ; Hyperlipidemia E78.5 ; Screening for breast cancer Z12.31 and BMI 40.0-44.9, adult Z68.41 [facility] [id number] [place] [address] 90195- 0381 18 Apr, 2017 Essential hypertension I10 [facility] [id number] [place] [address] 08448- 8303 14 Mar, 2017 [facility] [address] [facility] [id number] [place] [address]- 9613 Mar, [facility] [address] [facility] [id number] [place] [address]- 6507 09 Mar, 2017 [facility] [id number] [place] [address]- 5010 Feb, [facility] [address] [facility] [id number] [place] [address]- 3664 Jan, [facility] [address] [facility] [id number] [place] [address]- 4196 Dec, Essential hypertension I10 [facility] [address] [facility] [id number] [place] [address]- 8381 Dec, [facility] [address] [place] [address]- 9944 Dec, Essential hypertension I10 [facility] [address] [facility] [id number] [place] [address]- 3261 Nov, [facility] [address] [place] [address]- 5522 Oct, Essential [facility] I10 [facility] [id number] [address]- 9711 Oct, Essential hypertension I10 [facility] [address] [place] [address]- 1920 Oct, [facility] [address] [facility] [id number] [address]- 3117 September, [facility] [address] [place] [address]- 3315 September, Essential hypertension I10 [facility] [address] [facility] [id number], [place] [address]- 9100 September, [facility] [address], [place] [address]- 0407 September, Essential hypertension I10 ; Hyperlipidemia E78.5 and Hyponatremia E87.1 [facility] [id number] [place] [address] 08410- 7784 September, Mild intermittent asthma without complication J45.20 ; Essential hypertension I10 ; Hyperlipidemia E78.5 ; Hyponatremia E87.1 and Dysuria R30.0 [facility] [id number] [place] [address] 97177- 4970 September, Other chronic gastritis without hemorrhage K29.50 ; Paroxysmal atrial fibrillation I48.0 and Essential hypertension I10 [facility] [id number] [place] [address] 49470- 7856 Aug, [facility] [id number] [place] [address] 71762- 7102 Jul, [facility] [id number] [place] [address] 61250- 3367 14 Jun, 2016 [facility] [id number] [place] [address] 79640 -6080 07 Jun, 2016 Dysuria R30.0 and Acute cystitis with hematuria N30.01 [facility] [id number] [place] [address] 29128- 4980 Jun, Essential hypertension I10 [facility] [id number] [place] [address] 44158- 9056 May, Paroxysmal atrial fibrillation I48.0 [facility] [id number] [place] [address] 62862- 5831 May, Other chronic gastritis without hemorrhage K29.50 [facility] [id number] [place] [address] 25462- 6606 May, [facility] [id number] [place] [address] 70727- 6607 May, Hyponatremia E87.1 ; Essential hypertension I10 and Other chronic gastritis without hemorrhage K29.50 [facility] [id number] [address]- 0770 10 May, 2016 Hyponatremia E87.1 [facility] [id number] [place] [address] 74235- 9103 May, Hyponatremia E87.1 [facility] [id number] [place] [address] [id number] May, [facility] [id number] [place] [address] 72299- 2140 Apr, [facility] [id number] [place] [address] 27182- 4118 Apr, [facility] [id number] [place] [address] 59720- 3572 Mar, Essential hypertension I10 and Candidal intertrigo B37.2 [facility] [id number] [place] [address] 61568- 5099 Mar, Hyponatremia E87.1 [facility] [id number] [place] [address] 94336- 2349 Mar, [facility] [id number] [place] [address] 68730- 1322 Mar, Hyponatremia E87.1 [facility] [id number] [place] [address] 47930- 5130 Mar, Essential hypertension I10 ; Hyponatremia E87.1 ; Slurred speech R47.81 ; Paroxysmal atrial fibrillation I48.0 and Elevated blood sugar R73.9 [facility] [id number] [place] [address] 32518- 0702 Mar, [facility] [id number] [place] [address] 35659- 3839 Mar, [facility] [id number] [place] [address] 06096- 0425 Feb, [facility] [id number] [place] [address] 44037- 5213 Jan, [facility] [address], [place] [address]- 0125 Dec, [facility] [id number] [place] [address] 32449 -4552 Nov, Scratched by cat, initial encounter W55.03XA and Other injury of unspecified body region T14.8 [facility] [id number] [place] [address] 32616- 2993 Nov, [facility] [id number] [place] [address] 04166- 6507 Oct, [facility] [id number] [place] [address] 04752- 7218 September, [facility] [id number] [place] [address] 73440- 1120 Aug, Elevated alkaline phosphatase level R74.8 [facility] [id number] [place] [address] 16958- 7065 Jul, [facility] [id number] [place] [address] 22029- 3529 Jun, Essential hypertension I10 and Bright red blood per rectum K62.5 [facility] [address] [place] [address] 17932- 6636 Jun, Elevated alkaline phosphatase level R74.8 [facility] [address] [place] [address] 44992- 7406 Jun, [facility] [id number] [place] [address] 80879- 6911 May, Essential hypertension I10 ; Hyperlipidemia E78.5 and Well woman exam (no gynecological exam) Z00.00 [facility] [address] [place] [address] 50882- 1539 May, [facility] [id number] [place] [address] 79773- 3194 May, [facility] [id number] [place] [address] 99216- 5463 Mar, [facility] [id number] [place] [address] 05172- 4330 Mar, [facility] [id number] [place] [address] 80675- 3826 Mar, [facility] [id number] [place] [address] 234571- 9556 Feb, Acute recurrent maxillary sinusitis J01.01 ; Asthma, unspecified, unspecified status 493.90 ; Seasonal allergies J30.2 and Cat allergies J30.81 [facility] [id number] [place] [address] 93105- 4551 Feb, Upper respiratory tract infection, unspecified upper respiratory infection J06.[address] [address]754- 2073 Jan, [facility] [id number] [place] [address] 292456- 8361 Jan, Dysphagia 787.20 and GERD (gastroesophageal reflux disease) 530.81 [facility] [id number] [place] [address] 27332- 7879 Jan, Breast lesion 611.9 [facility] [id number] [place] [address] 211143- 9180 Dec, Breast lesion 611.9 [facility] [id number] [place] [address] 86726- 4357 Dec, Breast lesion 611.9 [facility] [id number] [place] [address] 473497- 7665 Nov, Fatigue 780.79 and Hyperlipidemia 272.4 [facility] [id number] [place] [address] 81298- 4468 Nov, Hypertension 401.9 ; Hyperlipidemia 272.4 ; Chronic frontal sinusitis 473.1 and Fatigue 780.79 [facility] [address] [id number] [place] [address]- 9670 Nov, [facility] [address] [id number] [place] [address]- 9689 Oct, [facility] [place] [facility] [address] [facility] [id number] [place] [address]- 4635 Oct, [facility] [address] [id number], [place] [address]- 3310 September, [facility] [address] [id number] [place] [address]- 8241 September, [facility] [address] [facility] [id number] [place] [address]- 8276 September, [facility] [address] [facility] [id number] [place] [address]- 8147 September, [facility] [address] [facility] [id number] [address]- 8123 Aug, [facility] [address] [facility] [id number] [place] [address]- 9281 Aug, [facility] [address] [facility] [id number] [place] [address]- 5600 Aug, [facility] [id number] [address]- 3166 Jul, [facility] [place] [facility] [address] [facility] [id number], [place] [address]- 2842 Jul, [facility] [place] [facility] [address] [facility] [id number] [place] [address]- 6685 Jul, [facility] [place] [facility] [address] [facility] [id number], [place] [address]- 3261 Jul, [facility] [place] [facility] [address] [facility] [id number] [place] [address]- 2621 18 Jul, 2014 [facility] [place] [facility] [address] [facility] [id number] [place] [address]- 9941 17 Jul, 2014 [facility] [place] [facility] [address] [id number] [place] [address]- 4048 17 Jul, 2014 [facility] [place] [facility] [address] [id number] [place] [address]- 8240 16 Jul, 2014 [facility] [place] [facility] [address] [id number] [place] [address]- 5226 16 Jul, 2014 [facility] [place] [facility] [address] [id number] [place] [address]- 0724 Jul, [facility] [place] [facility] [address] [id number] [place] [address]- 6152 Jul, [facility] [place] [facility] [address] [id number] [place] [address]- 8103 Jul, [facility] [place] [facility] [address] [id number] [place] [address]- 5158 Jul, [facility] [place] [facility] [address] [id number] [place] [address]- 1463 Jul, [facility] [place] [facility] [address] [id number] [place] [address]- 2721 Jul, [facility] [place] [facility] [address] [facility] [id number] [place] [address]- 9498 Jun, [facility] [place] [facility] [address] [id number] [place] [address]- 2546 Jun, [facility] [place] [facility] [address] [facility] [id number] [place] [address]- 2546 Jun, [facility] [place] [facility] [address] [id number] [place] [address]- 2540 Jun, [facility] [place] [facility] [address] [facility] [id number] [place] [address]- 2546 May, [facility] [place] [facility] [address] [id number] [place] [address]- 7856 May, [facility] [place] [facility] [address] [id number] [place] [address]- 3615 May, [facility] [place] [facility] [address] [id number] [place] [address]- 2493 May, [facility] [place] [facility] [address] [id number] [place] [address]- 7659 Apr, [facility] [place] [facility] [address] [id number] [place] [address]- 5428 Apr, [facility] [place] [facility] [address] [id number] [place] [address]- 4951 Apr, [facility] [place] [facility] [address] [id number] [place] [address]- 6604 Apr, [facility] [place] [facility] [address] [id number] [place] [address]- 3314 Apr, [facility] [place] [facility] [address] [id number] [place] [address]- 1759 Apr, [facility] [place] [facility] [address] [id number] [place] [address]- 0598 Mar, [facility] [place] [facility] [address] [id number] [place] [address]- 6692 Mar, [facility] [place] [facility] [address] [id number] [place] [address]- 0534 Mar, [facility] [place] [facility] [address] [id number], [place] [address]- 0401 Mar, [facility] [place] [facility] [address] [id number] [place] [address]- 5335 Mar, [facility] [place] [facility] [address] [id number] [place] [address]- 4190 Mar, [facility] [place] [facility] [address] [id number] [place] [address]- 3872 Mar, [facility] [place] [facility] [address] [id number], [place] [address]- 3596 Mar, [facility] [place] [facility] [address] [id number] [place] [address]- 0207 Mar, [facility] [place] [facility] [address] [id number], [place] [address]- 1678 Mar, [facility] [place] [facility] [address] [facility] [id number] [place] [address]- 0009 Mar, [facility] [place] [facility] [address] [id number], [place] [address]- 8087 Mar, [facility] [place] [facility] [address] [facility] [id number] [place] [address]- 5660 Mar, [facility] [place] [facility] [address] [facility] [id number] [place] [address]- 0762 Mar, [facility] [place] [facility] [address] [facility] [id number], [place] [address]- 7876 Mar, [facility] [place] [facility] [address] [facility] [id number], [place] [address]- 6747 Mar, [facility] [place] [facility] [address] [facility] [id number], [place] [address]- 8488 Mar, [facility] [place] [facility] [address] [facility] [id number], [place] [address]- 8439 Feb, [facility] [place] [facility] [address] [facility] [id number], [place] [address]- 2390 Feb, [facility] [place] [facility] [address] [facility] [id number], [place] [address]- 0535 Feb, [facility] [place] [facility] [address] [id number], [place] [address]- 1196 Feb, [facility] [place] [facility] [address] [facility] [id number], [place] [address]- 7383 Feb, [facility] [place] [facility] [address] [facility] [id number], [place] [address]- 8736 Feb, [facility] [place] [facility] [address] [id number] [place] [address]- 7321 Feb, [facility] [place] [facility] [address] [id number] [place] [address]- 0839 Feb, [facility] [place] [facility] [address] [id number] [place] [address]- 2053 Feb, [facility] [place] [facility] [address] [id number] [place] [address]- 6114 Feb, [facility] [place] [facility] [address] [id number] [place] [address]- 0397 Feb, [facility] [place] [facility] [address] [id number] [place] [address] Feb, [facility] [place] [facility] [address] [id number] [place] [address] Feb, [facility] [place] [facility] [address] [id number] [place] [address] Feb, [facility] [place] [facility] [address] [id number] [place] [address] Feb, [facility] [place] [facility] [address] [id number] [place] [address] Feb, [facility] [place] [facility] [address] [id number] [place] [address] Feb, [facility] [place] [facility] [address] [id number] [place] [address] Feb, [facility] [place] [facility] [address] [id number] [place] [address] Feb, [facility] [place] [facility] [address] [id number] [place] [address] 30 Jan, 2014 [facility] [place] [facility] [address] [id number] [place] [address] 30 Jan, 2014 [facility] [place] [facility] [address] [id number] [place] [address] Jan, [facility] [place] [facility] [address] [id number] [place] [address] 1988 29 Jan, 2014 [facility] [place] [facility] [address] [id number] [place] [address] Jan, [facility] [place] [facility] [address] [id number] [place] [address] Jan, [facility] [place] [facility] [address] [id number] [place] [address] Jan, [facility] [place] [facility] [address] [id number] [place] [address] Jan, [facility] [place] [facility] [address] [id number] [place] [address] Jan, [facility] [place] [facility] [address] [id number] [place] [address] Dec, [facility] [place] [facility] [address] [id number] [place] [address] Dec, [facility] [place] [facility] [address] [id number] [place] [address] Dec, [facility] [place] [facility] [address] [id number] [place] [address] Dec, [facility] [place] [facility] [address] [id number] [address] Dec, [facility] [place] [facility] [address] [id number], [place] [address] Dec, [facility] [place] [facility] [address] [id number] [place] [address] Dec, [facility] [place] [facility] [address] [id number] [place] [address] Dec, [facility] [place] [facility] [address] [id number] [place] [address] Dec, [facility] [place] [facility] [address] [id number] [place] [address] Nov, [facility] [place] [facility] [address] [id number] [place] [address] Nov, [facility] [place] [facility] [address] [id number] [place] [address] Nov, [facility] [place] [facility] [address] [id number] [place] [address] Nov, [facility] [place] [facility] [address] [id number] [place] [address] Nov, [facility] [place] [facility] [address] [id number] [place] [address] Nov, [facility] [place] [facility] [address] [id number] [place] [address] Oct, [facility] [place] [facility] [address] [id number] [place] [address] Oct, [facility] [place] [facility] [address] [id number] [place] [address] Oct, [facility] [place] [facility] [address] [id number] [place] [address] Oct, [facility] [place] [facility] [address] [id number] [place] [address] Oct, [facility] [place] [facility] [address] [id number] [place] [address] Oct, [facility] [place] [facility] [address] [id number] [place] [address] Oct, [facility] [place] [facility] [address] [id number] [place] [address] Oct, [facility] [place] [facility] [address] [id number] [place] [address] Oct, [facility] [place] [facility] [address] [id number] [place] [address] Oct, [facility] [place] [facility] [address] [id number] [place] [address]96 Oct, [facility] [place] [facility] [address] [id number] [place] [address] Oct, [facility] [place] [facility] [address] [id number] [place] [address] 65[address] Oct, [facility] [place] [facility] [address] [id number] [place] [address] 4[address] Oct, [facility] [place] [facility] [address] [id number] [place] [address] 86[address] September, [facility] [place] [facility] [address] [id number] [place] [address] September, [facility] [place] [facility] [address] [id number] [place] [address] 8[address] September, [facility] [place] [facility] [address] [id number] [place] [address] September, [facility] [place] [facility] [address] [id number] [place] [address] 4[address] September, [facility] [place] [facility] [address] [id number] [place] [address] September, [facility] [place] [facility] [address] [id number] [place] [address] September, [facility] [place] [facility] [address] [id number] [place] [address] 3260 September, [facility] [place] [facility] [address] [id number] [place] [address] 4383 September, [facility] [place] [facility] [address] [id number] [place] [address]- 4632 September, [facility] [place] [facility] [address] [id number] [place] [address]- 3106 September, [facility] [place] [facility] [address] [id number] [place] [address]- 2546 September, [facility] [place] [facility] [address] [id number] [place] [address]- 9042 September, [facility] [place] [facility] [address] [id number] [place] [address]- 9604 September, [facility] [place] [facility] [address] [id number] [place] [address]- 7643 September, [facility] [place] [facility] [address] [id number] [place] [address]- 9507 September, [facility] [place] [facility] [address] [id number] [place] [address]- 7237 September, [facility] [place] [facility] [address] [id number] [place] [address]- 6978 September, [facility] [place] [facility] [address] [id number] [place] [address]- 5726 September, [facility] [place] [facility] [address] [id number] [place] [address]- 1421 Aug, [facility] [place] [facility] [address] [id number] [place] [address]- 0273 Aug, [facility] [place] [facility] [address] [id number] [place] [address]- 3588 Jul, [facility] [place] [facility] [address] [id number] [place] [address]- 7790 Jul, [facility] [place] [facility] [address] [id number] [place] [address]- 9863 Jul, [facility] [place] [facility] [address] [id number] [place] [address]- 8217 Jul, [facility] [place] [facility] [address] [id number] [place] [address]- 3118 Jul, [facility] [place] [facility] [address] [id number] [place] [address]- 0310 Jul, [facility] [place] [facility] [address] [id number] [place] [address]- 1321 27 Jul, 2013 [facility] [place] [facility] [address] [id number] [place] [address]- 8169 Jul, [facility] [place] [facility] [address] [id number] [place] [address]- 4756 Jul, [facility] [place] [facility] [address] [id number] [place] [address]- 2789 Jul, [facility] [place] [facility] [address] [id number] [place] [address]- 7997 Jul, [facility] [place] [facility] [address] [id number] [place] [address]- 8651 14 Jul, 2013 [facility] [place] [facility] [address] [id number] [place] [address]- 9919 Jul, [facility] [place] [facility] [address] [id number] [place] [address]- 2608 Jul, [facility] [place] [facility] [address] [id number] [place] [address]- 4180 10 Jun, 2013 [facility] [place] [facility] [address] [id number] [place] [address]- 1570 Jun, [facility] [place] [facility] [address] [id number] [place] [address]- 5796 Jun, [facility] [place] [facility] [address] [id number] [place] [address]- 9650 Jun, [facility] [place] [facility] [address] [id number] [place] [address]- 1061 May, [facility] [place] [facility] [address] [id number] [place] [address]- 9629 May, [facility] [place] [facility] [address] [id number] [place] [address]- 9706 May, [facility] [place] [facility] [address] [id number] [place] [address] 2942 May, [facility] [place] [facility] [address] [id number] [place] [address]- 0645 May, [facility] [place] [facility] [address] [id number] [place] [address]- 4879 Mar, [facility] [place] [facility] [address] [id number] [place] [address]- 2424 Mar, [facility] [place] [facility] [address] [id number] [place] [address]- 1616 Mar, [facility] [place] [facility] [address] [id number] [place] [address]- 0121 Mar, [facility] [place] [facility] [address] [id number] [place] [address]- 3222 Mar, [facility] [place] [facility] [address] [id number] [place] [address]- 3337 Mar, [facility] [place] [facility] [address] [id number], [place] [address] 3071 Feb, [facility] [place] [facility] [address] [id number] [place] [address]- 3039 Feb, [facility] [place] [facility] [address] [id number], [place] [address]- 2757 Feb, [facility] [place] [facility] [address] [id number], [place] [address]- 2658 Feb, [facility] [place] [facility] [address] [id number], [place] [address]- 9365 Feb, [facility] [place] [facility] [address] [id number][place] [address]- 5624 Feb, [facility] [place] [facility] [address] [id number], [place] [address]- 0991 Feb, [facility] [place] [facility] [address] [id number], [place] [address]- 2604 Feb, [facility] [place] [facility] [address] [id number] [place] [address] 2542 Feb, [facility] [address] [id number] [place] [address]- 7976 Feb, [facility] [place] [facility] [address] [id number] [place] [address]- 0647 Feb, [facility] [address] [id number] [place] [address]- 1847 Feb, [facility] [place] [facility] [address] [id number] [place] [address]- 7862 Jan, [facility] [place] [facility] [address] [id number] [place] [address]- 0910 Jan, [facility] [place] [facility] [address] [id number] [place] [address]- 0976 Dec, [facility] [place] [facility] [address] [id number] [place] [address]- 3009 Dec, [facility] [place] [facility] [address] [id number] [place] [address]- 7113 Nov, [facility] [place] [facility] [address] [id number] [place] [address]- 1772 Nov, [facility] [place] [facility] [address] [id number] [place] [address]- 7445 Nov, [facility] [place] [facility] [address] [id number] [place] [address]- 2630 Nov, [facility] [place] [facility] [address] [id number] [place] [address]- 2549 Nov, [facility] [place] [facility] [address] [id number] [place] [address]- 0079 Oct, [facility] [place] [facility] [address] [id number] [place] [address]- 2546 September, [facility] [place] [facility] [address] [id number] [place] [address]- 2659 Aug, [facility] [place] [facility] [address] [id number] [place] [address]- 2743 Jul, [facility] [address] [id number] [place] [address]- 9396 Jul, [facility] [place] [facility] [address] [id number] [place] Jul, [facility] [place] [facility] [address] [id number] [place] [address]- 6509 Jun, [facility] [address] [id number] [place] [address]- 1485 Jun, [facility] [place] [facility] [address] [id number] [place] [address]- 8306 Jun, [facility] [address] [id number] [place] [address]- 8786 Jun, [facility] [address] [id number] [place] [address]- 2993 Jun, [facility] [address] [id number] [place] [address]- 7326 May, [facility] [address] [id number] [place] [address]- 8783 May, [facility] [address] [id number] [place] [address]- 4096 Apr, [facility] [address] [id number] [place] [address]- 1474 Apr, [facility] [place] [facility] [address] [id number] [place] [address]- 0680 Mar, [facility] [place] [facility] [address] [id number] [place] [address] Mar, [facility] [place] [facility] [address] [id number] [place] [address]- 2868 Mar, [facility] [place] [facility] [address] [id number], [place] [address]- 9454 Mar, [facility] [place] [facility] [address] [id number] [place] [address]- 3115 Mar, [facility] [place] [facility] [address] [id number], [place] [address]- 2144 Mar, [facility] [place] [facility] [address] [id number] [place] [address]- 1596 Mar, [facility] [place] [facility] [address] [id number] [place] [address]- 0043 Mar, [facility] [place] [facility] [address] [id number] [place] [address], [place] [address]- 2498 Mar, [facility] [place] [facility] [address] [id number] [place] [address]- 2832 Mar, [facility] [place] [facility] [address] [facility] [id number] [place] [address]- 9122 Feb, [facility] [place] [facility] [address] [id number], [place] [address]- 8872 Feb, [facility] [place] [facility] [address] [id number] [place] [address]- 7787 Feb, [facility] [place] [facility] [address] [facility] [id number] [place] [address]- 5901 Feb, [facility] [place] [facility] [address] [facility] [id number], [place] [address]- 0695 Feb, [facility] [place] [facility] [address] [id number], [place] [address]- 4371 Feb, [facility] [place] [facility] [address] [id number], [place] [address]- 8845 Jan, [facility] [place] [facility] [address] [facility] [id number], [place] [address]- 9078 Jan, [facility] [place] [facility] [address] [facility] [id number][place] 2015 Dec, [facility] [place] [facility] [address] [id number] [place] [address]- 4210 Dec, [facility] [place] [facility] [address] [id number] [place] [address]- 2331 Dec, [facility] [place] [facility] [address] [id number] [place] [address]- 2456 Nov, [facility] [place] [facility] [address] [id number] [place] [address]- 8497 September, [facility] [place] [facility] [address] [id number] [place] [address]- 1094 September, [facility] [place] [facility] [address] [id number] [place] [address]- 2710 September, [facility] [place] [facility] [address] [id number] [place] [address]- 4771 September, [facility] [place] [facility] [address] [id number] [place] [address]- 2507 Aug, [facility] [place] [facility] [address] [id number] [place] [address]- 9830 Aug, [facility] [place] [facility] [address] [id number] [place] [address]- 8790 Aug, [facility] [place] [facility] [address] [id number] [place] [address]- 3056 Aug, [facility] [place] [facility] [address] [id number] [place] [address]- 4869 Aug, [facility] [place] [facility] [address] [id number] [place] [address]- 6017 Jul, [facility] [place] [facility] [address] [id number] [place] [address]- 2628 Jul, [facility] [place] [facility] [address] [id number] [place] [address]- 0477 Jul, [facility] [place] [facility] [address] [id number] [place] [address]- 1762 29 Jun, 2011 [facility] [address] [id number] [place] [address]- 8536 17 Jun, 2011 [facility] [place] [facility] [address] [id number] [place] [address]- 7036 13 Jun, 2011 [facility] [place] [facility] [address] [facility] [id number] [place] [address]- 1366 10 Jun, 2011 [facility] [place] [facility] [address] [id number] [place] [address]- 5539 07 Jun, 2011 [facility] [place] [facility] [address] [id number] [place] [address]- 6746 Jun, [facility] [place] [facility] [address] [facility] [id number] [place] [address]- 9906 Jun, [facility] [address] [id number] [place] [address]- 0935 May, [facility] [place] [facility] [address] [facility] [id number] [place] [address]- 5947 May, [facility] [place] [facility] [address] [id number] [place] [address]- 7337 May, [facility] [place] [facility] [address] [facility] [id number] [place] [address]- 0048 May, [facility] [address] [facility] [id number] [place] [address]- 4339 Apr, [facility] [place] [facility] [address] [id number], [place] [address]- 2896 Apr, [facility] [place] [facility] [address] [facility] [id number] [place] [address]- 6598 Mar, [facility] [place] [facility] [address] [facility] [id number] [place] [address]- 6460 Mar, [facility] [place] [facility] [address] [id number] [place] [address]- 8190 Mar, [facility] [place] [facility] [address] [id number] [place] [address] 2549 11 Nov, 2010 [facility] [address] [id number] [place] [address]- 2466 13 May, 2010 [facility] [place] [facility] [address] [id number] [place] [address]- 3616 23 Apr, 2010 [facility] [place] [facility] [address] [id number] [place] [address] 2546 13 Apr, 2010 [facility] [place] [facility] [address] [id number] [place] [address] 2548 13 Apr, 2010 [facility] [place] [facility] [address] [id number] [place] [address]- 8906 Apr, [facility] [place] [facility] [address] [id number] [place] [address]- 0178 Apr, [facility] [place] [facility] [address] [id number] [place] [address]- 7128 Mar, [facility] [address] [id number] [place] [address]- 3684 08 Mar, 2010 [facility] [address] [id number] [place] [address]- 6199 Feb, [facility] [address] [id number] [place] [address]- 6886 14 Aug, 2009 [facility] [place] [facility] [address] [id number] [place] [address]- 9324 Jul, [facility] [place] [facility] [address] [id number] [place] [address]- 2544 17 Jun, 2009 [facility] [place] [facility] [address] [id number] [place] [address]- 2546 30 Apr, 2009 [facility] [place] [facility] [address] [id number] [place] [address]- 2546 07 Apr, 2009 [facility] [place] [facility] [address] [id number] [place] [address]- 2541 Mar, [facility] [address] [facility] [id number] [place] [address]- 2546 Mar, [facility] [address] [facility] [id number], [place] [address]- 2546 Feb, [facility] [address] [facility] [id number], [place] [address]- 2546 Dec, [facility] [address] [facility] [id number], [place] [address]- 2546 Oct, IMMUNIZATIONS No Known Immunizations SOCIAL HISTORY Never Assessed REASON FOR VISIT Enrolled in [employer] VITAL SIGNS MEDICATIONS Unknown [...] Hospitalization History surgery 2013 Hospitalization History A Fib--[facility] 03/08/2016 Hospitalization History acute chest pain, hypertensive urgency, paroxsysmal htn-[facility] 05/10/16
--- OUTSIDE RECORDS SUMMARY | 2018-09-17 11:50 | XMS REPORT ---
Author Author JORDY DESIREE [facility] Address [address] [place] [address] Care Team Providers Care Salt Refiner Name Role Phone DESIREE SPENCE Unavailable PROBLEMS Type Condition ICD9-CM Code KVX49-SF Code Onset Dates Condition Status SNOMED Code Problem Vitamin D deficiency E55.9 Active 88366364 Problem Chronic frontal sinusitis J32.1 Active 56416907 Problem Hyponatremia E87.1 Active 27765616 Problem BMI 40.0-44.9, adult Z68.41 Active 247771408 Problem Seasonal allergies J30.2 Active 709426160 Problem Secondary pulmonary arterial hypertension I27.21 Active 09878468 Problem Other chronic gastritis without hemorrhage K29.50 Active 3155674 Problem Paroxysmal atrial fibrillation I48.0 Active 020470741 Problem Fasciculations of muscle R25.3 Active 30037503 Problem Depression, unspecified depression type F32.9 Active 79250447 Problem Mild intermittent asthma without complication J45.20 Active 640876311 Problem Chronic migraine G43.709 Active 72324722 Problem Primary insomnia F51.01 Active 810545875 Problem Generalized anxiety disorder F41.1 Active 499125929 Problem Elevated alkaline phosphatase level R74.8 Active 877863047 Problem Obstructive sleep apnea G47.33 Active 71447085 Problem Hidradenitis L73.2 Active 97867962 Problem Essential hypertension I10 Active 97457371 Problem Idiopathic peripheral neuropathy G60.9 Active 43990553 Problem Hyperlipidemia E78.5 Active 58081345 ALLERGIES Substance Reaction Event Type Date Status Amitriptyline HCl Unknown Drug Allergy September, Active ENCOUNTERS Encounter Location Date Diagnosis [facility] [place] [facility] [address] [facility] [id number] [address] Jan, [facility] [place] [facility] [address] [facility] [id number], [place] [address] Dec, Essential hypertension I10 [facility] [address] [id number] [address] 28[address] Nov, Essential hypertension I10 [facility] [place] [address], [place] [address] Nov, [facility] [address], [place] [address] 1249 Nov, Essential hypertension I10 and BMI 40.0-44.9, adult Z68.41 [facility] [address] [place] [address] [id number] [place] [address] 42920- 4876 Oct, Essential hypertension I10 and Chronic kidney disease, unspecified CKD stage N18.9 [place] [id number] [place] [address] 01090- 0073 Oct, Essential hypertension I10 and Chronic kidney disease, unspecified CKD stage N18.9 [place] [id number] [place] [address] 74220- 8571 Oct, [facility] [id number] [place] [address] 59694- 9219 September, Medicare annual wellness visit, initial Z00.00 [...] and BMI 40.0-44.9, adult Z68.41 [facility] [address] [id number], [place] [address] Aug, Essential hypertension I10 [facility] [address] [id number], [place] [address] Jun, Dysuria R30.0 ; UTI symptoms R39.9 and Candidiasis of breast B37.[id number] [place] [address] 06187- 5050 Jun, Hyponatremia E87.1 [facility] [place] [facility] [address], [place] [address] 7506 Jun, Hyponatremia E87.1 [facility] [place] [facility] [id number] [place] [address] 13503- 9357 Jun, Hyponatremia E87.1 [facility] [place] [facility] [id number] [place] [address] 68491- 7668 Jun, [facility] [place] [facility] [id number] [place] [address] 82901- 7844 May, Hyponatremia E87.1 [facility] [place] [facility] [id number] [place] [address] 69564- 4360 May, Hyponatremia E87.1 [facility] [place] [facility] [id number] [place] [address] 80043- 7609 May, Hyponatremia E87.1 [facility] [place] [facility] [id number] [place] [address] 60256- 3548 May, Hyponatremia E87.1 [facility] [place] [facility] [id number] [place] [address] 49770- 1072 Apr, Hyponatremia E87.1 ; Fasciculations of muscle R25.3 and Hyperlipidemia E78.5 [facility] [id number] [place] [address] 97408- 4882 Apr, Cough R05 ; Hyponatremia E87.1 ; Fasciculations of muscle R25.3 ; Primary insomnia F51.01 ; Essential hypertension I10 ; Hyperlipidemia E78.5 ; Screening for breast cancer Z12.31 and BMI 40.0-44.9, adult Z68.41 [facility] [place] [facility] [id number] [place] [address] 44373- 0464 Apr, Essential hypertension I10 [facility] [place] [facility] [id number] [place] [address] 54461- 1333 Mar, [facility] [place] [facility] [address] [facility] [id number], [place] [address] 6247 Mar, [facility] [place] [facility] [address], [place] [address]- 5484 Mar, [facility] [place] [facility] [id number] [address]- 9414 Feb, [facility] [place] [facility] [address], [place] [address]- 6402 Jan, [facility] [place] [facility] [address] [facility] [id number] [place] [address]- 3255 Dec, Essential hypertension I10 [facility] [place] [facility] [id number] [place] [address], [place] [address]- 2003 Dec, [facility] [place] [facility] [address], [place] [address]- 9372 Dec, Essential hypertension I10 [facility] [place] [facility] [address], [place] [address]- 3603 Nov, [facility] [place] [facility] [address], [place] [address]- 5043 Oct, Essential hypertension I10 [facility] [place] [facility] [address], [place] [address]- 7090 Oct, Essential hypertension I10 [facility] [place] [facility] [address], [place] [address]- 3901 Oct, [facility] [place] [facility] [address], [place] [address]- 6172 September, [facility] [place] [facility] [address] [facility] [id number], [place] [address] 7236 September, Essential hypertension I10 [facility] [place] [facility] [id number], [place] [address]- 5421 September, [facility] [place] [facility] [address] [id number], [place] [address]- 4065 September, Essential hypertension I10 ; Hyperlipidemia E78.5 and Hyponatremia E87.1 [facility] [place] [facility] [id number] [place] [address] 62148- 4959 September, Mild intermittent asthma without complication J45.20 ; Essential hypertension I10 ; Hyperlipidemia E78.5 ; Hyponatremia E87.1 and Dysuria R30.0 [facility] [place] [facility] [id number] [place] [address] 93514- 8866 September, Other chronic gastritis without hemorrhage K29.50 ; Paroxysmal atrial fibrillation I48.0 and Essential hypertension I10 [facility] [place] [id number] [place] [address] 19333- 0877 Aug, [facility] [place] [facility] [address] [address]107- 8872 Jul, [place] [address] 80586- 0266 14 Jun, 2016 [facility] [address] [address] -[address]00 07 Jun, 2016 Dysuria R30.0 and Acute cystitis with hematuria N30.01 [place] [id number] [place] [address] 21966- 7237 Jun, Essential hypertension I10 [place] [id number] [place] [address] 29711- 1056 May, Paroxysmal atrial fibrillation I48.0 [facility] [id number] [place] [address] 40537- 2657 May, Other chronic gastritis without hemorrhage K29.50 [facility] [place] [facility] [id number] [place] [address] 66866- 2942 May, [place] [id number] [place] [address] 28245- 7177 May, Hyponatremia E87.1 ; Essential hypertension I10 and Other chronic gastritis without hemorrhage K29.50 [facility] [place] [address] [address]80- 1979 May, Hyponatremia E87.1 [facility] [place] [facility] [id number] [place] [address] 77835- 0669 May, Hyponatremia E87.1 [facility] [id number] [place] [address] [id number] 06 May, 2016 [facility] [place] [facility] [id number] [place] [address] 27094- 8031 16 Apr, 2016 [facility] [place] [facility] [id number] [place] [address] 47247- 5418 Apr, [facility] [place] [facility] [id number] [place] [address] 75127- 8047 29 Mar, 2016 Essential hypertension I10 and Candidal intertrigo B37.2 [facility] [facility] [id number] [place] [address] 47595- 8212 22 Mar, 2016 Hyponatremia E87.1 [facility] [place] [facility] [id number] [place] [address] 44473- 4682 14 Mar, 2016 [facility] [place] [facility] [id number] [place] [address] 81008- 9696 Mar, Hyponatremia E87.1 [facility] [place] [facility] [id number] [place] [address] 35369- 7023 09 Mar, 2016 Essential hypertension I10 ; Hyponatremia E87.1 ; Slurred speech R47.81 ; Paroxysmal atrial fibrillation I48.0 and Elevated blood sugar R73.9 [facility] [place] [facility] [id number] [place] [address] 15688- 2894 Mar, [facility] [place] [facility] [id number] [place] [address] 99582- 1691 Mar, [facility] [place] [facility] [id number] [place] [address] 23259- 1761 13 Feb, 2016 [facility] [place] [facility] [id number] [place] [address] 63989- 1857 15 Jan, 2016 [facility] [place] [facility] [address], [place] [address]- 6069 Dec, [facility] [id number] [place] [address] 90284 -9859 Nov, Scratched by cat, initial encounter W55.03XA and Other injury of unspecified body region T14.8 [facility] [place] [facility] [id number] [place] [address] 22701- 2453 Nov, [facility] [place] [facility] [id number] [place] [address] 01569- 7435 Oct, [facility] [place] [id number] [place] [address] 27351- 5427 September, [facility] [place] [facility] [id number] [place] [address] 15221- 2915 Aug, Elevated alkaline phosphatase level R74.8 [facility] [id number] [place] [address] 27960- 8860 Jul, [facility] [place] [facility] [id number] [place] [address] 18071- 3356 Jun, Essential hypertension I10 and Bright red blood per rectum K62.5 [facility] [id number] [place] [address] 49667- 7825 11 Jun, 2015 Elevated alkaline phosphatase level R74.8 [facility] [place] [id number] [place] [address] 76661- 9229 Jun, [facility] [place] [facility] [id number] [place] [address] 79741- 3942 May, Essential hypertension I10 ; Hyperlipidemia E78.5 and Well woman exam (no gynecological exam) Z00.00 [facility] [place] [id number] [place] [address] 00829- 8652 May, [facility] [place] [id number] [place] [address] 08549- 4857 May, [facility] [id number] [place] [address] 33520- 8263 Mar, [facility] [place] [id number] [place] [address] 33289- 9205 Mar, [facility] [place] [id number] [place] [address] 19548- 0355 Mar, [facility] [place] [address] 75451- 4624 Feb, Acute recurrent maxillary sinusitis J01.01 ; Asthma, unspecified, unspecified status 493.90 ; Seasonal allergies J30.2 and Cat allergies J30.[address] 68889- 4787 Feb, Upper respiratory tract infection, unspecified upper respiratory infection J06.9 [place] [id number] [place] [address] 85066- 1768 Jan, [place] [id number] [place] [address] 57760- 4637 Jan, Dysphagia 787.20 and GERD (gastroesophageal reflux disease) 530.81 [place] [id number] [place] [address] 47521- 3930 Jan, Breast lesion 611.9 [place] [id number] [place] [address] 47751- 3598 Dec, Breast lesion 611.9 [facility] [place] [id number] [place] [address] 77177- 2411 Dec, Breast lesion 611.9 [facility] [id number] [place] [address] 185640- 6343 Nov, Fatigue 780.79 and Hyperlipidemia 272.4 [place] [id number] [place] [address] 66351594- 7582 Nov, Hypertension 401.9 ; Hyperlipidemia 272.4 ; Chronic frontal sinusitis 473.1 and Fatigue 780.79 [place] [id number] [place] [address]- 2546 08 Nov, 2014 [facility] [address] [id number] [place] [address]- 6179 Oct, [facility] [place] [facility] [address] [id number] [place] [address]- 2546 Oct, [facility] [address] [id number] [place] [address]- 9046 September, [facility] [place] [facility] [address] [id number] [place] [address]- 4611 September, [facility] [address] [id number] [place] [address]- 1936 September, [facility] [address] [id number] [place] [address]- 9376 September, [facility] [address] [id number] [place] [address]- 7988 Aug, [facility] [address] [id number] [place] [address]- 1297 14 Aug, 2014 [facility] [place] [facility] [address] [id number] [place] [address]- 7181 Aug, [facility] [address] [id number] [place] [address]- 1523 Jul, [facility] [place] [facility] [address] [id number] [place] [address]- 2837 20 Jul, 2014 [facility] [place] [facility] [address] [id number] [place] [address]- 1818 19 Jul, 2014 [facility] [place] [facility] [address] [id number] [place] [address]- 0688 19 Jul, 2014 [facility] [place] [facility] [address] [id number] [place] [address]- 2546 18 Jul, 2014 [facility] [place] [facility] [address] [id number] [place] [address]- 4319 Jul, [facility] [place] [facility] [address] [id number] [place] [address]- 0523 17 Jul, 2014 [facility] [place] [facility] [address] [id number] [place] [address]- 8620 Jul, [facility] [place] [facility] [address] [id number] [place] [address]- 1436 Jul, [facility] [place] [facility] [address] [id number] [place] [address]- 2107 Jul, [facility] [place] [facility] [address] [id number] [place] [address]- 7027 Jul, [facility] [place] [facility] [address] [id number] [place] [address]- 4053 Jul, [facility] [place] [facility] [address] [id number] [place] [address]- 9822 Jul, [facility] [place] [facility] [address] [id number] [place] [address]- 2170 Jul, [facility] [place] [facility] [address] [id number] [place] [address]- 2610 Jul, [facility] [place] [facility] [address] [id number] [place] [address]- 1379 Jun, [facility] [place] [facility] [address] [id number] [place] [address]- 2126 Jun, 2014 [facility] [place] [facility] [address] [id number], [place] [address]- 9144 Jun, [facility] [place] [facility] [address] [id number] [place] [address]- 3773 Jun, [facility] [place] [facility] [address] [id number] [place] [address]- 2184 May, [facility] [place] [facility] [address] [id number] [place] [address]- 6799 May, [facility] [place] [facility] [address] [id number] [place] [address]- 9268 13 May, 2014 [facility] [place] [facility] [address] [id number] [place] [address]- 9840 13 May, 2014 [facility] [place] [facility] [address] [id number] [place] [address]- 2753 18 Apr, 2014 [facility] [place] [facility] [address] [id number] [place] 4888 Apr, [facility] [place] [facility] [address] [id number] [place] [address]- 6201 Apr, [facility] [place] [facility] [address] [id number] [place] [address]- 5109 Apr, [facility] [place] [facility] [address] [id number] [place] [address]- 4233 Apr, [facility] [place] [facility] [address] [id number] [place] [address]- 2007 Apr, [facility] [place] [facility] [address] [id number] [place] [address]- 4679 Mar, [facility] [place] [facility] [address] [id number] [place] [address]- 7354 Mar, [facility] [place] [facility] [address] [id number] [place] [address]- 5369 Mar, [facility] [place] [facility] [address] [id number] [place] [address]- 1730 Mar, [facility] [place] [facility] [address] [id number] [place] [address]- 0357 Mar, [facility] [place] [facility] [address] [id number] [place] [address]- 1199 Mar, [facility] [place] [facility] [address] [id number] [place] [address]- 2657 Mar, [facility] [place] [facility] [address] [id number] [place] [address]- 1447 Mar, [facility] [place] [facility] [address] [id number] [place] [address]- 3825 Mar, [facility] [place] [facility] [address] [id number] [place] [address]- 7510 Mar, [facility] [place] [facility] [address] [id number] [place] [address]- 7815 Mar, [facility] [place] [facility] [address] [id number] [place] [address]- 0688 Mar, [facility] [place] [facility] [address] [id number] [place] [address]- 0203 Mar, [facility] [place] [facility] [address] [id number] [place] [address]- 2693 Mar, [facility] [place] [facility] [address] [id number] [place] [address]- 1299 Mar, [facility] [place] [facility] [address] [id number] [place] [address]- 3936 Mar, [facility] [place] [facility] [address] [id number] [place] [address]- 9874 Mar, [facility] [place] [facility] [address] [id number] [place] [address]- 8763 Feb, [facility] [place] [facility] [address] [id number] [place] [address]- 7863 Feb, [facility] [place] [facility] [address] [id number], [place] [address]- 3295 Feb, [facility] [place] [facility] [address] [id number] [place] [address]- 9506 Feb, [facility] [place] [facility] [address] [id number] [place] [address]- 9094 Feb, [facility] [place] [facility] [address] [id number] [place] [address]- 8711 Feb, [facility] [place] [facility] [address] [id number], [place] [address]- 4618 Feb, [facility] [place] [facility] [address] [id number] [place] [address]- 8899 Feb, [facility] [place] [facility] [address] [id number] [place] [address]- 3643 Feb, [facility] [place] [facility] [address] [id number] [place] [address]- 5786 Feb, [facility] [place] [facility] [address] [id number] [place] [address]- 4657 Feb, [facility] [place] [facility] [address] [id number] [place] [address]- 7416 Feb, [facility] [place] [facility] [address] [id number] [place] [address]- 5702 Feb, [facility] [place] [facility] [address] [id number] [place] [address]- 8467 Feb, [facility] [place] [facility] [address] [id number] [place] [address]- 1563 Feb, [facility] [place] [facility] [address] [id number] [place] [address]- 1383 Feb, [facility] [place] [facility] [address] [id number] [place] [address]- 5392 Feb, [facility] [place] [facility] [address] [id number] [place] [address]- 3205 Feb, [facility] [place] [facility] [address] [id number], [place] [address]- 2704 Feb, [facility] [place] [facility] [address] [id number] [place] [address]- 6159 30 Jan, 2014 [facility] [place] [facility] [address] [id number] [place] [address]- 6818 30 Jan, 2014 [facility] [place] [facility] [address] [id number] [place] [address]- 2118 29 Jan, 2014 [facility] [place] [facility] [address] [id number] [place] [address]- 1373 29 Jan, 2013 [facility] [place] [facility] [address] [id number] [place] [address]- 0742 24 Jan, 2014 [facility] [place] [facility] [address] [id number] [place] [address]- 6666 24 Jan, 2014 [facility] [place] [facility] [address] [id number] [place] [address]- 5034 Jan, [facility] [place] [facility] [address] [id number] [place] [address]- 5673 08 Jan, 2014 [facility] [place] [facility] [address] [id number] [place] [address]- 0018 Jan, [facility] [place] [facility] [address] [id number] [place] [address]- 3350 Dec, [facility] [place] [facility] [address] [id number] [place] [address] Dec, [facility] [place] [facility] [address] [id number] [place] [address] Dec, [facility] [place] [facility] [address] [id number] [place] [address] Dec, [facility] [place] [facility] [address] [id number] [place] [address] Dec, [facility] [place] [facility] [address] [id number] [place] [address] Dec, [facility] [place] [facility] [address] [id number] [place] [address] Dec, [facility] [place] [facility] [address] [id number] [place] [address] Dec, [facility] [place] [facility] [address] [id number] [place] [address] Dec, [facility] [place] [facility] [address] [id number] [place] [address] Nov, [facility] [place] [facility] [address] [id number] [place] [address] Nov, [facility] [place] [facility] [address] [id number] [place] [address] Nov, [facility] [place] [facility] [address] [id number] [place] [address] Nov, [facility] [place] [facility] [address] [id number] [place] [address] Nov, [facility] [place] [facility] [address] [id number] [place] [address] Nov, [facility] [place] [facility] [address] [id number] [place] [address] Oct, [facility] [place] [facility] [address] [id number] [place] [address] Oct, [facility] [place] [facility] [address] [id number] [place] [address] Oct, [facility] [place] [facility] [address] [id number] [place] [address] Oct, [facility] [place] [facility] [address] [id number] [place] [address] Oct, [facility] [place] [facility] [address] [id number] [place] [address] Oct, [facility] [place] [facility] [address] [id number] [place] [address] Oct, [facility] [place] [facility] [address] [id number] [place] [address] Oct, [facility] [place] [facility] [address] [id number] [place] [address] Oct, [facility] [place] [facility] [address] [id number] [place] [address] Oct, [facility] [place] [facility] [address] [id number] [place] [address] Oct, [facility] [place] [facility] [address] [id number] [place] [address] Oct, [facility] [place] [facility] [address] [id number] [place] [address] Oct, [facility] [place] [facility] [address] [id number] [place] [address] Oct, [facility] [place] [facility] [address] [id number] [place] [address] September, [facility] [place] [facility] [address] [id number] [place] [address]- [address] September, [facility] [place] [facility] [address] [id number] [place] [address] September, [facility] [place] [facility] [address] [id number] [place] [address] September, [facility] [place] [facility] [address] [id number] [place] [address] September, [facility] [place] [facility] [address] [id number] [place] [address] September, [facility] [place] [facility] [address] [id number] [place] [address] September, [facility] [place] [facility] [address] [id number] [place] [address] September, [facility] [place] [facility] [address] [id number] [place] [address] September, [facility] [place] [facility] [address] [id number] [place] [address] September, [facility] [place] [facility] [address] [id number] [place] [address] September, [facility] [place] [facility] [address] [id number] [place] [address]- [address] September, [facility] [place] [facility] [address] [id number] [place] [address] September, [facility] [place] [facility] [address] [id number] [place] [address] September, [facility] [place] [facility] [address] [id number] [place] [address] September, [facility] [place] [facility] [address] [id number] [place] [address] September, [facility] [place] [facility] [address] [id number] [place] [address] September, [facility] [place] [facility] [address] [id number] [place] [address] September, [facility] [place] [facility] [address] [id number] [place] [address] September, [facility] [place] [facility] [address] [id number] [place] [address] 9226 Aug, [facility] [place] [facility] [address] [id number] [place] [address] 4684 Aug, [facility] [place] [facility] [address] [id number] [place] [address] 57[address] Jul, [facility] [place] [facility] [address] [id number] [place] [address] 18[address] 31 Jul, 2013 [facility] [place] [facility] [address] [id number] [place] [address]- 4088 Jul, [facility] [place] [facility] [address] [id number] [place] [address] Jul, [facility] [place] [facility] [address] [id number] [place] [address] 1197 Jul, [facility] [place] [facility] [address] [id number] [place] [address] Jul, [facility] [place] [facility] [address] [id number] [place] [address] 89[address] Jul, [facility] [place] [facility] [address] [id number] [place] [address]- 7843 Jul, [facility] [place] [facility] [address] [id number] [place] [address] 8803 Jul, [facility] [place] [facility] [address] [id number] [place] [address]- 2529 Jul, [facility] [place] [facility] [address] [id number] [place] [address] 3915 Jul, [facility] [place] [facility] [address] [id number] [place] [address]- 4589 Jul, [facility] [place] [facility] [address] [id number] [place] [address] Jul, [facility] [place] [facility] [address] [id number] [place] [address]- 25[address] Jul, [facility] [place] [facility] [address] [id number] [place] [address]- 8534 10 Jun, 2013 [facility] [place] [facility] [address] [id number] [place] [address]- 0555 10 Jun, 2013 [facility] [place] [facility] [address] [id number] [place] [address]- 9545 10 Jun, 2013 [facility] [place] [facility] [address] [id number] [place] [address]- 6595 Jun, [facility] [place] [facility] [address] [id number] [place] [address]- 7481 May, [facility] [place] [facility] [address] [id number] [place] [address]- 9062 May, [facility] [place] [facility] [address] [id number] [place] [address]- 5718 May, [facility] [place] [facility] [address] [id number] [place] [address] May, [facility] [place] [facility] [address] [id number] [place] [address]- [address] 08 May, 2013 [facility] [address] [id number] [place] [address]- 9179 14 Mar, 2013 [facility] [place] [facility] [address] [id number] [place] [address]- 6431 14 Mar, 2013 [facility] [place] [facility] [address] [id number] [place] [address]- 8999 07 Mar, 2013 [facility] [place] [facility] [address] [id number] [place] [address]- 6092 07 Mar, 2013 [facility] [place] [facility] [address] [id number] [place] [address]- 7035 Mar, [facility] [place] [facility] [address] [id number] [place] [address]- 2142 Mar, [facility] [place] [facility] [address] [id number] [place] [address]- 8072 Feb, [facility] [address] [id number] [place] [address]- 5341 Feb, [facility] [place] [facility] [address] [id number] [place] [address]- 4872 Feb, [facility] [place] [facility] [address] [id number] [place] [address]- 0082 Feb, [facility] [place] [facility] [address] [id number] [place] [address]- 6736 Feb, [facility] [place] [facility] [address] [id number] [place] [address]- 6778 Feb, [facility] [place] [facility] [address] [id number] [place] [address] Feb, [facility] [place] [facility] [address] [id number] [place] [address]- 2138 Feb, [facility] [place] [facility] [address] [id number] [place] [address] Feb, [facility] [place] [facility] [address] [id number] [place] [address]- 0418 Feb, [facility] [place] [facility] [address] [id number] [place] [address]- 7291 Feb, [facility] [place] [facility] [address] [id number] [place] [address]- 3069 Feb, [facility] [place] [facility] [address] [id number] [place] [address]- 4849 Jan, [facility] [place] [facility] [address] [id number] [place] [address]- 8903 Jan, [facility] [place] [facility] [address] [id number] [place] [address]- 6608 Dec, [facility] [place] [facility] [address] [id number] [place] [address]- 2635 Dec, [facility] [place] [facility] [address] [id number] [place] [address]- 9824 Nov, [facility] [place] [facility] [address] [id number] [place] [address]- 0781 Nov, [facility] [place] [facility] [address] [id number] [place] [address]- 3842 Nov, [facility] [place] [facility] [address] [id number] [place] [address]- 4048 Nov, [facility] [place] [facility] [address] [id number] [place] [address]- 1370 Nov, [facility] [place] [facility] [address] [id number] [place] [address]- 1491 Oct, [facility] [place] [facility] [address] [id number] [place] [address]- 1718 September, [facility] [place] [facility] [address] [id number] [place] [address]- 0822 Aug, [facility] [place] [facility] [address] [id number] [place] [address]- 0658 29 Jul, 2012 [facility] [address] [id number] [place] [address]- 8473 Jul, [facility] [address] [id number] [place] [address]- 7251 Jul, [facility] [address] [id number] [place] [address]- 7078 28 Jun, 2012 [facility] [address] [id number] [place] [address]- 3569 14 Jun, 2012 [facility] [address] [id number] [place] [address]- 0894 Jun, [facility] [address] [id number] [place] [address]- 6106 Jun, [facility] [address] [id number] [place] [address]- 6142 Jun, [facility] [address] [id number] [place] [address]- 3341 May, [facility] [address] [id number] [place] [address]- 68[address] May, [facility] [address] [id number] [place] [address]- 5582 Apr, [facility] [address] [id number] [place] [address]- 7676 Apr, [facility] [address] [id number] [place] [address]- 2545 Mar, [facility] [place] [facility] [address] [id number] [place] [address]- 1778 Mar, [facility] [place] [facility] [address] [id number] [place] [address]- 9749 Mar, [facility] [address] [id number] [place] [address]- 3368 Mar, [facility] [place] [facility] [address] [id number] [place] [address]- 2886 Mar, [facility] [place] [facility] [address] [id number] [place] [address]- 4774 Mar, [facility] [place] [facility] [address] [id number] [place] [address]- 6971 Mar, [facility] [place] [facility] [address] [id number] [place] [address]- 7691 Mar, [facility] [place] [facility] [address] [id number] [place] [address]- 3903 Mar, [facility] [place] [facility] [address] [id number] [place] [address]- 5091 Mar, [facility] [place] [facility] [address] [facility] [id number] [place] [address]- 9040 Feb, [facility] [place] [facility] [address] [id number] [place] [address]- 0060 Feb, [facility] [place] [facility] [address] [id number] [place] [address]- 6124 Feb, [facility] [place] [facility] [address] [id number] [place] [address]- 7936 Feb, [facility] [place] [facility] [address] [facility] [id number], [place] [address]- [address] Feb, [facility] [place] [facility] [address] [id number], [place] [address]- 0044 Feb, [facility] [place] [facility] [address] [id number] [place] [address]- 7641 Jan, [facility] [place] [facility] [address] [id number] [place] [address]- 7784 Jan, [facility] [place] [facility] [address] [facility] [id number], [place] [address]- 0292 Dec, [facility] [place] [facility] [address] [id number], [place] [address]- 2704 Dec, [facility] [address] [id number] [place] [address]- 5591 Dec, [facility] [place] [facility] [address] [id number] [place] [address]- 0204 Nov, [facility] [place] [facility] [address] [id number] [place] [address]- 7660 September, [facility] [place] [facility] [address] [id number] [place] [address]- 6533 September, [facility] [place] [facility] [address] [id number] [place] [address]- 8259 September, [facility] [place] [facility] [address] [id number] [place] [address] September, [facility] [address] [facility] [id number] [place] [address]- 2100 Aug, [facility] [place] [facility] [address] [id number] [place] [address]- 4868 Aug, [facility] [place] [facility] [address] [id number] [place] [address]- 0175 Aug, [facility] [place] [facility] [address] [facility] [id number] [place] [address]- 9197 Aug, [facility] [place] [facility] [address] [id number] [place] [address]- 2297 Aug, [facility] [place] [facility] [address] [id number] [place] [address]- 8961 Jul, [facility] [place] [facility] [address] [id number] [place] [address]- 5025 Jul, [facility] [place] [facility] [address] [id number] [place] [address]- 2667 Jul, [facility] [place] [facility] [address] [facility] [id number] [place] [address]- 2200 Jun, [facility] [place] [facility] [address] [id number] [place] [address]- 7330 17 Jun, 2011 [facility] [place] [facility] [address] [id number] [place] [address]- 5676 13 Jun, 2011 [facility] [place] [facility] [address] [id number] [place] [address] 2546 10 Jun, 2011 [facility] [place] [facility] [address] [id number] [place] [address]- 8796 07 Jun, 2011 [facility] [place] [facility] [address] [id number] [place] [address]- 1867 03 Jun, 2011 [facility] [place] [facility] [address] [id number] [place] [address]- 4358 03 Jun, 2011 [facility] [address] [id number] [place] [address]- 7554 24 May, 2011 [facility] [address] [id number] [place] [address]- 5479 May, [facility] [place] [facility] [address] [id number] [place] [address]- 2608 May, [facility] [place] [facility] [address] [facility] [id number] [place] [address]- 1037 May, [facility] [place] [facility] [address] [id number] [place] [address]- 0588 Apr, [facility] [place] [facility] [address] [id number] [place] [address]- 4557 Apr, [facility] [place] [facility] [address] [id number] [place] [address]- 9795 Mar, [facility] [place] [facility] [address] [id number] [place] [address]- 2715 Mar, [facility] [place] [facility] [address] [id number] [place] [address]- 9403 Mar, [facility] [place] [facility] [address] [id number], [place] [address]- 7472 11 Nov, 2010 [facility] [address] [id number] [place] [address]- 9909 13 May, 2010 [facility] [address] [id number] [place] [address]- 4096 Apr, [facility] [address] [id number] [place] [address]- 4756 Apr, [facility] [place] [facility] [address] [id number] [place] [address] 2546 13 Apr, 2010 [facility] [address] [id number] [place] [address]- 5262 Apr, [facility] [place] [facility] [address] [id number] [place] 6157 Apr, [facility] [address] [id number] [place] [address]- 3026 Mar, [facility] [place] [facility] [address] [id number] [place] [address]- 7724 Mar, [facility] [address] [id number] [place] [address]- 0555 Feb, [facility] [place] [facility] [address] [id number] [place] [address]- 3122 14 Aug, 2009 [facility] [address] [id number], [place] [address]- 5234 Jul, [facility] [place] [facility] [address] [id number] [place] [address]- 5137 17 Jun, 2009 [facility] [place] [facility] [address] [id number] [place] [address]- 1791 30 Apr, 2009 [facility] [place] [facility] [address] [id number] [place] [address]- 1016 Apr, [facility] [place] [facility] [address] [id number] [place] [address] Mar, [facility] [place] [facility] [address] [id number] [place] [address]- 1296 Mar, [facility] [place] [facility] [address] [facility] [id number], [place] [address]- 7265 Feb, [facility] [place] [facility] [address] [facility] [id number], [place] [address]- 9246 Dec, [facility] [place] [facility] [address] [facility] [id number], [place] [address]- 4091 Oct, IMMUNIZATIONS Vaccine Route Administration Date Status TDAP (BOOSTRIX) IM Intramuscular September 20, 2017 Administered SOCIAL HISTORY Never Assessed REASON FOR VISIT Medicare AWV - Initial Visit--[place] PLAN OF CARE Activity Details Follow Up 1 Year Reason: VITAL SIGNS Height 66 in 2017-09-20 Weight 264.0 lbs 2017-09-20 Temperature 98.3 degrees Fahrenheit 2017-09-20 Heart Rate 91 bpm 2017-09-20 Respiratory Rate 20 2017-09-20 BMI 42.61 kg/m2 2017-09-20 Blood pressure systolic 138 mmHg 2017-09-20 Blood pressure diastolic 86 mmHg 2017-09-20 MEDICATIONS Medication Instructions Dosage Frequency Start Date End Date Duration Status Alprazolam 0.5 mg take 1 tablet by Oral route 2 times per day Jan, Active Flonase 50 MCG/ACT Nasally Once a day 1 spray in each nostril 24h Active Abilify 10 MG Orally Once a day 1 tablet 24h Active Nortriptyline HCl 25 MG Orally Once a day at bedtime 2 capsule Active ProAir HFA 108 (90 Base) mcg/act 2 puffs by Inhalation route 4 times per day PRN needs to keep appointment 01-10-14 Dec, Active Amlodipine Besylate 10 mg Orally Once a day 1 tablet 24h 90 Active Pepcid 20 mg Orally 2 times a day 1 tablet 12h Active Klor-Con M20 20 MEQ Orally Once a day 1 tablet with food 24h 90 days Active Lisinopril 40 mg Orally Once a day 1 tablet 24h Mar, 90 days Active BusPIRone HCl 10 mg Orally twice a day 1 tablet 12h Active Carbamazepine 200 mg Orally in the morning and 2 tablets at bedtime 1 tablet Active Viibryd 40 MG Orally Once a day 1 tablet 24h Active Metoprolol Succinate ER 50 mg Orally Once a day 1 tablet 24h Active Aspirin 325 MG Orally Once a day 1 tablet 24h Active RESULTS Name Result Date Reference Range HEP C ANTIBODY W/ REFLEX HCV 2017-09-20 HEPATITIS C ANTIBODY NON-REACTIVE NON-REACTIVE SIGNAL TO CUT-OFF 0.02 <1.00 PROCEDURES Procedure Date Ordered Result Body Site [facility] VISIT IPPE/AWV September 20, 2017 ANNUAL WELLNES VST; PERSNL PPS INIT September 20, 2017 VENIPUNCT, ROUTINE* September 20, 2017 SINGLE IMMUNIZATION ADMIN September 20, 2017 PT TOBACCO SCREEN RCVD TLK September 20, 2017 FALL RISK ASSESSMENT DOCD September 20, 2017 TDAP (BOOSTRIX) September 20, 2017 LAB NOT BILLED BY [facility] September 20, 2017 INSTRUCTIONS MEDICATIONS ADMINISTERED No Known Medications MEDICAL (GENERAL) HISTORY Type Description Date Medical History hypertension Medical History neuropathy Medical History depression Medical History anxiety Medical History Hyposmolality and/or hyponatremia Surgical History cleaned out left side of sinuses 2013 Surgical History colonscopy 09/03/15 Hospitalization History cellulitis 09/2013 Hospitalization History surgery 2013 Hospitalization History A Fib--[facility] 03/08/2016 Hospitalization History acute chest pain, hypertensive urgency, paroxsysmal htn-[facility] 05/10/16
--- OUTSIDE RECORDS SUMMARY | 2018-09-17 11:51 | XMS REPORT ---
Author Author JORDY DESIREE [facility] Address [address] [place] [address] Care Team Providers Care Reliability Technologist Name Role Phone DESIREE SPENCE Unavailable PROBLEMS Type Condition ICD9-CM Code [id number] Code Onset Dates Condition Status SNOMED Code Problem Vitamin D deficiency E55.9 Active 75191811 Problem Chronic frontal sinusitis J32.1 Active 17554418 Problem Hyponatremia E87.1 Active 42036566 Problem BMI 40.0-44.9, adult Z68.41 Active 532039004 Problem Seasonal allergies J30.2 Active 502391161 Problem Secondary pulmonary arterial hypertension I27.21 Active 93920016 Problem Other chronic gastritis without hemorrhage K29.50 Active 8057182 Problem Paroxysmal atrial fibrillation I48.0 Active 827672323 Problem Fasciculations of muscle R25.3 Active 40554845 Problem Depression, unspecified depression type F32.9 Active 21317956 Problem Mild intermittent asthma without complication J45.20 Active 107963181 Problem Chronic migraine G43.709 Active 88600654 Problem Primary insomnia F51.01 Active 251678788 Problem Generalized anxiety disorder F41.1 Active 199481047 Problem Elevated alkaline phosphatase level R74.8 Active 707976476 Problem Obstructive sleep apnea G47.33 Active 73929907 Problem Hidradenitis L73.2 Active 06738151 Problem Essential hypertension I10 Active 29652398 Problem Idiopathic peripheral neuropathy G60.9 Active 17852181 Problem Hyperlipidemia E78.5 Active 55179346 ALLERGIES No Information ENCOUNTERS Encounter Location Date Diagnosis [facility] [address] [address] Dec, [facility] [address] [address] Nov, Essential hypertension I10 [facility] [address] [address] 85[address] Nov, [facility] [address] [address] 69[address] Nov, Essential hypertension I10 and BMI 40.0-44.9, adult Z68.41 [facility] [address] [address] Oct, Essential hypertension I10 and Chronic kidney disease, unspecified CKD stage N18.9 [facility] [id number] [place] [address] 34511- 4594 Oct, Essential hypertension I10 and Chronic kidney disease, unspecified CKD stage N18.9 [facility] [id number] [place] [address] 86052- 4466 Oct, [facility] [id number] [place] [address] 66305- 5548 September, Medicare annual wellness visit, initial Z00.00 ; Mild intermittent asthma without complication J45.20 ; Generalized anxiety disorder F41.1 ; Depression, unspecified depression type F32.9 ; Paroxysmal atrial fibrillation I48.0 ; Obstructive sleep apnea G47.33 ; Hyponatremia E87.1 ; Need for hepatitis C screening test Z11.59 ; Encounter for immunization Z23 ; Secondary pulmonary arterial hypertension I27.21 and BMI 40.0-44.9, adult Z68.41 [facility] [address] [address] 7[address] Aug, Essential hypertension I10 [facility] [address] [address] Jun, Dysuria R30.0 ; UTI symptoms R39.9 and Candidiasis of breast B37.89 [facility] [address] [place] [id number] [place] [address] 34321- 0200 Jun, Hyponatremia E87.1 [facility] [address] [address]- 8802 Jun, Hyponatremia E87.1 [facility] [id number] [place] [address] 27462- 1785 Jun, Hyponatremia E87.1 [facility] [id number] [place] [address] 94551- 3617 Jun, [facility] [id number] [place] [address] 13230- 8485 May, Hyponatremia E87.1 [facility] [id number] [place] [address] 04546- 7409 May, Hyponatremia E87.1 [facility] [id number] [place] [address] 99810- 1400 May, Hyponatremia E87.1 [facility] [id number] [place] [address] 64673- 5006 May, Hyponatremia E87.1 [facility] [id number] [place] [address] 21237- 7932 Apr, Hyponatremia E87.1 ; Fasciculations of muscle R25.3 and Hyperlipidemia E78.5 [facility] [id number] [place] [address] 34433- 9145 Apr, Cough R05 ; Hyponatremia E87.1 ; Fasciculations of muscle R25.3 ; Primary insomnia F51.01 ; Essential hypertension I10 ; Hyperlipidemia E78.5 ; Screening for breast cancer Z12.31 and BMI 40.0-44.9, adult Z68.41 [facility] [id number] [place] [address] 02037- 4092 Apr, Essential hypertension I10 [facility] [id number] [place] [address] 59710- 5042 Mar, [facility] [id number] [place] [address] 68265- 9129 Mar, [facility] [id number] [place] [address] 00520- 9142 Mar, [facility] [address] [address] Feb, [facility] [address] [address] Jan, [facility] [address] [address] 1977 Dec, Essential hypertension I10 [facility] [id number] [place] [address] 58145- 0261 Dec, [facility] [id number] [place] [address] 88793- 3724 Dec, Essential hypertension I10 [facility] [id number] [place] [address] 24113- 1915 Nov, [facility] [id number] [place] [address] 98505- 4855 Oct, Essential hypertension I10 [facility] [address] [address]- 4927 Oct, Essential hypertension I10 [facility] [id number] [place] [address] 62853- 7819 Oct, [facility] [address] [address] 9910 September, [facility] [address] [address]- 0833 September, Essential hypertension I10 [facility] [address] [address] 6479 September, [facility] [id number] [place] [address] 95956- 2809 September, Essential hypertension I10 ; Hyperlipidemia E78.[address] [facility] [address] [address]- 4530 September, Mild intermittent asthma without complication J45.20 ; Essential hypertension I10 ; Hyperlipidemia E78.5 ; Hyponatremia E87.1 and Dysuria R30.0 [facility] [id number] [place] [address] 69817- 6736 September, Other chronic gastritis without hemorrhage K29.50 ; Paroxysmal atrial fibrillation I48.0 and Essential hypertension I10 [facility] [id number] [place] [address] 36320- 9569 Aug, [facility] [id number] [place] [address] 33800- 4207 Jul, [facility] [id number] [place] [address] 08453- 1672 14 Jun, 2016 [facility] [id number] [place] [address] 80043 -7527 07 Jun, 2016 Dysuria R30.0 and Acute cystitis with hematuria N30.01 [facility] [id number] [place] [address] 74563- 0894 Jun, Essential hypertension I10 [facility] [id number] [place] [address] 88974- 8082 May, Paroxysmal atrial fibrillation I48.0 [facility] [id number] [place] [address] 76177- 0998 May, Other chronic gastritis without hemorrhage K29.50 [facility] [id number] [place] [address] 09930- 4466 May, [facility] [id number] [place] [address] 21648- 3931 May, Hyponatremia E87.1 ; Essential hypertension I10 and Other chronic gastritis without hemorrhage K29.50 [facility] [id number] [place] [address] 03565- 1201 May, Hyponatremia E87.1 [facility] [id number] [place] [address] 81184- 4421 May, Hyponatremia E87.1 [facility] [id number] [place] [address] [id number] 06 May, 2016 [facility] [id number] [place] [address] 79639- 7536 16 Apr, 2016 [facility] [id number] [place] [address] 85498- 3819 Apr, [facility] [address] 37049- 3206 29 Mar, 2016 Essential hypertension I10 and Candidal intertrigo B37.2 [facility] [id number] [place] [address] 26673- 3335 22 Mar, [address] [facility] [id number] [place] [address] 38118- 1940 [address], [address] [facility] [id number] [place] [address] 10795- 4540 10 Mar, [address] [facility] [id number] [place] [address] 24489- 6529 09 Mar, 2016 Essential hypertension I10 ; Hyponatremia E87.1 ; Slurred speech R47.81 ; Paroxysmal atrial fibrillation I48.0 and Elevated blood sugar R73.9 [facility] [id number] [place] [address] 84773- 2982 Mar, [facility] [id number] [place] [address] 38810- 1331 Mar, [facility] [id number] [place] [address] 83129- 6838 13 Feb, 2016 [facility] [id number] [place] [address] 31836- 8404 [address], [address] [facility] [id number] [place] [address] 75392- 5801 18 Dec, 2015 [facility] [id number] [place] [address] 98564 -0482 Nov, Scratched by cat, initial encounter W55.03XA and Other injury of unspecified body region T14.8 [facility] [id number] [place] [address] 58353- 0229 Nov, [facility] [id number] [place] [address] 62028- 1803 Oct, [facility] [address] 57324- 2208 September, [facility] [id number] [place] [address] 62193- 3089 Aug, Elevated alkaline phosphatase level R74.8 [facility] [id number] [place] [address] 68263- 1561 Jul, [facility] [id number] [place] [address] 69618- 3686 Jun, Essential hypertension I10 and Bright red blood per rectum K62.5 [facility] [id number] [place] [address] 51052- 8480 Jun, Elevated alkaline phosphatase level R74.8 [facility] [id number] [place] [address] 47510- 5584 Jun, [facility] [id number] [place] [address] 54539- 2247 May, Essential hypertension I10 ; Hyperlipidemia E78.5 and Well woman exam (no gynecological exam) Z00.00 [facility] [address] [place] [address] 67506- 6808 May, [facility] [id number] [place] [address] 15746- 8182 May, [facility] [id number] [place] [address] 16404- 8031 Mar, [facility] [id number] [place] [address] 46406- 2514 Mar, [facility] [address] [place] [address] 31520- 6580 Mar, [facility] [id number] [place] [address] 64048- 4738 Feb, Acute recurrent maxillary sinusitis J01.01 ; Asthma, unspecified, unspecified status 493.90 ; Seasonal allergies J30.2 and Cat allergies J30.81 [place] [id number] [place] [address] 689831- 9314 Feb, Upper respiratory tract infection, unspecified upper respiratory infection J06.[address] 452272- 4693 Jan, [place] [id number] [place] [address] 66242- 7214 Jan, Dysphagia 787.20 and GERD (gastroesophageal reflux disease) 530.81 [place] [id number] [place] [address] 46030- 9705 Jan, Breast lesion 611.[address] 498133- 8072 Dec, Breast lesion 611.9 [place] [id number] [place] [address] 93672- 2392 Dec, Breast lesion 611.9 [place] [id number] [place] [address] 05675- 5174 Nov, Fatigue 780.79 and Hyperlipidemia 272.4 [place] [id number] [place] [address] 64995- 0836 Nov, Hypertension 401.9 ; Hyperlipidemia 272.4 ; Chronic frontal sinusitis 473.1 and Fatigue 780.79 [place] [id number] [place] [address] 20144756- 9357 Nov, [place] [id number] [place] [address] 81653- 0316 Oct, [facility] [place] [facility] [address] [id number] [place] [address]- 2467 Oct, [facility] [place] [facility] [address] [id number] [place] [address]- 9144 September, [facility] [place] [facility] [address] [id number] [place] [address]- 9254 September, [facility] [place] [facility] [address] [id number] [place] [address]- 2378 September, [facility] [place] [facility] [address] [id number] [place] [address]- 3214 September, [facility] [place] [facility] [address] [id number] [place] [address]- 9411 Aug, [facility] [place] [facility] [address] [id number] [place] [address]- 5298 Aug, [facility] [place] [facility] [address] [id number] [place] [address]- 4728 Aug, [facility] [place] [facility] [address] [id number] [place] [address]- 0323 Jul, [facility] [place] [facility] [address] [id number] [place] [address]- 2106 Jul, [facility] [place] [facility] [address] [id number] [place] [address]- 1392 19 Jul, 2014 [facility] [place] [facility] [address] [id number] [place] [address]- 8772 19 Jul, 2014 [facility] [place] [facility] [address] [id number] [place] [address]- 9859 18 Jul, 2014 [facility] [place] [facility] [address] [id number] [place] [address]- 7696 17 Jul, 2014 [facility] [place] [facility] [address] [id number] [place] [address]- 0703 17 Jul, 2014 [facility] [place] [facility] [address] [id number] [address]- 0280 16 Jul, 2014 [facility] [place] [facility] [address] [id number] [place] [address]- 6248 16 Jul, 2014 [facility] [place] [facility] [address] [id number] [place] [address]- 0523 Jul, [facility] [place] [facility] [address] [id number] [place] [address]- 9862 Jul, [facility] [place] [facility] [address] [id number] [place] [address]- 7971 Jul, [facility] [place] [facility] [address] [id number] [place] [address]- 4343 Jul, [facility] [place] [facility] [address] [id number] [place] [address]- 8298 Jul, [facility] [place] [facility] [address] [facility] [id number] [place] [address]- 1383 Jul, [facility] [place] [facility] [address] [id number] [place] [address]- 9683 Jun, [facility] [place] [facility] [address] [id number] [place] [address]- 5195 Jun, [facility] [place] [facility] [address] [facility] [id number] [place] [address]- 4540 Jun, [facility] [place] [facility] [address] [facility] [id number] [place] [address]- 5237 Jun, [facility] [place] [facility] [address] [facility] [id number] [address]- 3282 May, [facility] [place] [facility] [address] [id number] [place] [address]- 2986 May, [facility] [place] [facility] [address] [facility] [id number] [place] [address]- 7027 May, [facility] [place] [facility] [address] [facility] [id number] [address]- 2984 May, [facility] [place] [facility] [address] [id number] [place] [address]- 3245 Apr, [facility] [place] [facility] [address] [id number] [place] [address]- 8500 Apr, [facility] [place] [facility] [address] [id number] [place] [address]- 2519 Apr, [facility] [place] [facility] [address] [id number] [place] [address]- 0646 Apr, [facility] [place] [facility] [address] [id number] [place] [address]- 2908 Apr, [facility] [place] [facility] [address] [id number] [place] [address]- 6291 Apr, [facility] [place] [facility] [address] [id number] [place] [address]- 7025 Mar, [facility] [place] [facility] [address] [id number] [place] [address]- 7945 Mar, [facility] [place] [facility] [address] [id number] [place] [address]- 9983 Mar, [facility] [place] [facility] [address] [id number] [place] [address]- 3588 Mar, [facility] [place] [facility] [address] [id number] [place] [address]- 8132 Mar, [facility] [place] [facility] [address] [id number] [place] [address]- 2171 Mar, [facility] [place] [facility] [address] [id number] [place] [address]- 5613 Mar, [facility] [place] [facility] [address] [id number] [place] [address]- 4705 Mar, [facility] [place] [facility] [address] [id number] [place] [address]- 1217 Mar, [facility] [place] [facility] [address] [id number] [place] [address]- 9746 Mar, [facility] [place] [facility] [address] [id number] [place] [address]- 7732 Mar, [facility] [place] [facility] [address] [id number] [place] [address]- 6693 Mar, [facility] [place] [facility] [address] [id number] [place] [address]- 5184 Mar, [facility] [place] [facility] [address] [id number] [place] [address]- 0290 Mar, [facility] [place] [facility] [address] [id number] [place] [address]- 0296 Mar, [facility] [place] [facility] [address] [id number] [place] [address]- 9583 Mar, [facility] [place] [facility] [address] [id number] [place] [address]- 2677 Mar, [facility] [place] [facility] [address] [id number] [place] [address]- 5795 Feb, [facility] [place] [facility] [address] [id number] [place] [address]- 4216 Feb, [facility] [place] [facility] [address] [id number] [place] [address]- 7628 Feb, [facility] [place] [facility] [address] [id number] [address]- 1152 Feb, [facility] [place] [facility] [address] [id number] [address]- 2328 Feb, [facility] [place] [facility] [address] [id number] [place] [address]- 0053 Feb, [facility] [place] [facility] [address] [id number] [place] [address]- 8110 Feb, [facility] [place] [facility] [address] [id number] [place] [address]- 2960 Feb, [facility] [place] [facility] [address] [id number] [place] [address]- 8230 Feb, [facility] [place] [facility] [address] [id number] [place] [address]- 0752 Feb, [facility] [place] [facility] [address] [id number] [place] [address]- 0346 Feb, [facility] [place] [facility] [address] [id number] [place] [address]- 1294 16 Feb, 2014 [facility] [place] [facility] [address] [id number] [place] [address]- 3274 Feb, [facility] [place] [facility] [address] [id number] [place] [address]- 8342 Feb, [facility] [place] [facility] [address] [id number] [place] [address]- 9708 Feb, [facility] [place] [facility] [address] [id number] [place] [address]- 5353 Feb, [facility] [place] [facility] [address] [id number] [place] [address]- 5997 Feb, [facility] [place] [facility] [address] [id number] [place] [address]- 0123 Feb, [facility] [place] [facility] [address] [id number] [place] [address]- 4971 Feb, [facility] [place] [facility] [address] [id number] [place] [address] 30 Jan, 2013 [facility] [place] [facility] [address] [id number] [place] [address] 30 Jan, 2013 [facility] [place] [facility] [address] [id number] [place] [address] 29 Jan, 2013 [facility] [place] [facility] [address] [id number] [place] [address] 29 Jan, 2013 [facility] [place] [facility] [address] [id number] [place] [address] Jan, [facility] [place] [facility] [address] [id number] [place] [address] Jan, [facility] [place] [facility] [address] [id number] [place] [address] Jan, [facility] [place] [facility] [address] [id number] [place] [address] Jan, [facility] [place] [facility] [address] [id number] [place] [address] Jan, [facility] [place] [facility] [address] [id number] [place] [address] Dec, [facility] [place] [facility] [address] [id number] [place] [address] Dec, [facility] [place] [facility] [address] [id number] [place] [address] Dec, [facility] [place] [facility] [address] [id number] [place] [address] Dec, [facility] [place] [facility] [address] [id number] [place] [address] Dec, [facility] [place] [facility] [address] [id number] [place] [address] Dec, [facility] [place] [facility] [address] [id number] [place] [address] Dec, [facility] [place] [facility] [address] [id number] [place] [address] Dec, [facility] [place] [facility] [address] [id number] [place] [address]- [address] Dec, [facility] [place] [facility] [address] [id number] [place] [address] Nov, [facility] [place] [facility] [address] [id number] [place] [address] Nov, [facility] [place] [facility] [address] [id number] [place] [address] Nov, [facility] [place] [facility] [address] [id number] [place] [address] Nov, [facility] [place] [facility] [address] [id number] [place] [address] Nov, [facility] [place] [facility] [address] [id number] [place] [address] Nov, [facility] [place] [facility] [address] [id number] [place] [address] Oct, [facility] [place] [facility] [address] [id number] [place] [address] Oct, [facility] [place] [facility] [address] [id number] [place] [address] Oct, [facility] [place] [facility] [address] [id number] [place] [address] Oct, [facility] [place] [facility] [address] [id number] [place] [address] Oct, [facility] [place] [facility] [address] [id number] [place] [address] Oct, [facility] [place] [facility] [address] [facility] [id number] [place] [address] Oct, [facility] [place] [facility] [address] [id number] [place] [address] Oct, [facility] [place] [facility] [address] [id number] [address] Oct, [facility] [place] [facility] [address] [id number] [place] [address] Oct, [facility] [place] [facility] [address] [id number] [place] [address] Oct, [facility] [place] [facility] [address] [id number] [place] [address] Oct, [facility] [place] [facility] [address] [id number] [place] [address] Oct, [facility] [place] [facility] [address] [id number] [place] [address] Oct, [facility] [place] [facility] [address] [id number] [place] [address]- [address] September, [facility] [place] [facility] [address] [id number] [place] [address] September, [facility] [place] [facility] [address] [id number] [place] [address] September, [facility] [place] [facility] [address] [id number] [place] [address]- 7224 September, [facility] [place] [facility] [address] [id number] [place] [address] September, [facility] [place] [facility] [address] [id number] [place] [address] September, [facility] [place] [facility] [address] [id number] [place] [address] September, [facility] [place] [facility] [address] [id number] [place] [address] 4966 September, [facility] [place] [facility] [address] [id number] [place] [address] September, [facility] [place] [facility] [address] [id number] [place] [address] 2294 September, [facility] [place] [facility] [address] [id number] [place] [address] 8446 September, [facility] [place] [facility] [address] [id number] [place] [address] 375[address] September, [facility] [place] [facility] [address] [id number] [place] [address] September, [facility] [place] [facility] [address] [id number] [place] [address]- 5130 September, [facility] [place] [facility] [address] [id number] [place] [address] 3419 September, [facility] [place] [facility] [address] [id number] [place] [address]- 5552 September, [facility] [place] [facility] [address] [id number] [place] [address]14 September, [facility] [place] [facility] [address] [id number] [place] [address]- 6944 September, [facility] [place] [facility] [address] [id number] [place] [address]- 8830 September, [facility] [place] [facility] [address] [id number] [place] [address]- 4415 Aug, [facility] [place] [facility] [address] [id number] [place] [address]- 9205 Aug, [facility] [place] [facility] [address] [id number] [place] [address]- 1407 Jul, [facility] [place] [facility] [address] [id number] [place] [address]- 2298 Jul, [facility] [place] [facility] [address] [id number] [place] [address]- 4827 Jul, [facility] [place] [facility] [address] [id number] [place] [address]- 0924 Jul, [facility] [place] [facility] [address] [id number] [place] [address]- 1063 Jul, [facility] [place] [facility] [address] [id number] [place] [address]- 4555 Jul, [facility] [place] [facility] [address] [id number] [place] [address]- 1856 Jul, [facility] [place] [facility] [address] [id number] [place] [address]- 5953 Jul, [facility] [place] [facility] [address] [id number] [place] [address]- 3781 Jul, [facility] [place] [facility] [address] [id number] [place] [address]- 6418 Jul, [facility] [place] [facility] [address] [id number] [place] [address]- 1626 Jul, [facility] [place] [facility] [address] [id number] [place] [address]- 0884 Jul, [facility] [place] [facility] [address] [id number] [place] [address]- 9561 Jul, [facility] [place] [facility] [address] [id number] [place] [address]- 5577 Jul, [facility] [place] [facility] [address] [id number] [place] [address]- 7894 10 Jun, 2013 [facility] [place] [facility] [address] [id number] [place] [address]- 2043 Jun, [facility] [place] [facility] [address] [id number] [place] [address]- 6062 Jun, [facility] [place] [facility] [address] [id number] [place] [address]- 7508 Jun, [facility] [place] [facility] [address] [id number] [place] [address]- 3828 May, [facility] [place] [facility] [address] [id number] [place] [address]- 1663 May, [facility] [place] [facility] [address] [id number] [place] [address]- 6573 May, [facility] [place] [facility] [address] [id number] [place] [address]- 0141 May, [facility] [place] [facility] [address] [id number] [place] [address]- 5769 May, [facility] [place] [facility] [address] [id number] [place] [address]- 7377 Mar, [facility] [place] [facility] [address] [id number] [place] [address]- 4532 14 Mar, 2013 [facility] [place] [facility] [address] [id number] [place] [address] 07 Mar, 2013 [facility] [place] [facility] [address] [id number] [place] [address] 07 Mar, 2013 [facility] [place] [facility] [address] [id number] [place] [address]- 0832 Mar, [facility] [place] [facility] [address] [id number] [place] [address]- 7883 Mar, [facility] [place] [facility] [address] [id number] [place] [address]- 7635 Feb, [facility] [place] [facility] [address] [id number] [place] [address]- 0340 Feb, [facility] [place] [facility] [address] [id number] [address]- [address] Feb, [facility] [place] [facility] [address] [id number] [place] [address]- 3154 Feb, [facility] [place] [facility] [address] [id number] [address] 6[address] Feb, [facility] [place] [facility] [address] [id number] [address] 0957 Feb, [facility] [place] [facility] [address] [id number] [place] [address]- 0432 Feb, [facility] [place] [facility] [address] [id number] [address] 4328 Feb, [facility] [place] [facility] [address] [id number] [place] [address]- 2068 Feb, [facility] [place] [facility] [address] [id number] [place] [address] Feb, [facility] [place] [facility] [address] [id number] [place] [address] 9753 Feb, [facility] [address] [id number] [place] [address]- 9569 Feb, [facility] [place] [facility] [address] [id number] [place] [address]- 3682 Jan, [facility] [address] [id number] [place] [address]- 7340 Jan, [facility] [place] [facility] [address] [id number] [place] [address]- 0715 Dec, [facility] [address] [id number] [place] [address]- 8226 Dec, [facility] [place] [facility] [address] [id number] [place] [address]- 9165 Nov, [facility] [address] [id number] [place] [address]- 4512 Nov, [facility] [place] [facility] [address] [id number] [place] [address]- 1813 Nov, [facility] [address] [id number] [place] [address]- 4406 Nov, [facility] [place] [facility] [address] [id number] [place] [address]- 5360 Nov, [facility] [address] [id number] [place] [address]- 4813 Oct, [facility] [place] [facility] [address] [id number] [place] [address]- 2547 September, [facility] [place] [facility] [address] [id number] [place] [address]- 2179 Aug, [facility] [place] [facility] [address] [id number] [place] [address]- 4908 Jul, [facility] [place] [facility] [address] [id number] [place] [address]- 3800 Jul, [facility] [place] [facility] [address] [id number] [place] [address]- 9521 Jul, [facility] [place] [facility] [address] [id number] [place] [address]- 2635 28 Jun, 2012 [facility] [place] [facility] [address] [id number] [place] [address]- 6366 14 Jun, 2012 [facility] [place] [facility] [address] [id number] [place] [address]- 9978 12 Jun, 2012 [facility] [place] [facility] [address] [id number] [place] [address]- 0234 Jun, [facility] [place] [facility] [address] [id number] [place] [address]- 4177 07 Jun, 2012 [facility] [place] [facility] [address] [facility] [id number] [place] [address]- 5530 May, [facility] [place] [facility] [address] [id number] [place] [address]- 7390 May, [facility] [place] [facility] [address] [id number] [place] [address]- 4212 Apr, [facility] [place] [facility] [address] [facility] [id number] [place] [address]- 6650 Apr, [facility] [place] [facility] [address] [facility] [id number] [place] [address]- 6476 15 Mar, 2012 [facility] [place] [facility] [address] [id number] [place] [address]- 2673 15 Mar, 2012 [facility] [place] [facility] [address] [id number] [place] [address]- 0090 Mar, [facility] [place] [facility] [address] [id number] [place] [address]- 3739 Mar, [facility] [place] [facility] [address] [id number] [place] [address]- 1789 05 Mar, 2012 [facility] [place] [facility] [address] [id number] [place] [address]- 9575 Mar, [facility] [place] [facility] [address] [id number] [place] [address]- 0780 Mar, [facility] [place] [facility] [address] [id number] [place] [address]- 7605 Mar, [facility] [place] [facility] [address] [id number] [place] [address]- 0425 Mar, [facility] [place] [facility] [address] [id number] [place] [address]- 6754 Mar, [facility] [place] [facility] [address] [id number] [place] [address] Feb, [facility] [place] [facility] [address] [id number] [place] [address]- 9565 Feb, [facility] [place] [facility] [address] [id number] [place] [address]- 3569 Feb, [facility] [place] [facility] [address] [id number] [place] [address]- 7058 Feb, [facility] [place] [facility] [address] [id number] [place] [address]- 1605 Feb, [facility] [place] [facility] [address] [id number] [place] [address]- 6710 Feb, [facility] [place] [facility] [address] [id number] [place] [address]- 2520 Jan, [facility] [place] [facility] [address] [id number] [place] [address]- 5513 Jan, [facility] [place] [facility] [address] [id number] [place] [address]- 5425 Dec, [facility] [place] [facility] [address] [id number] [place] [address]77 Dec, [facility] [place] [facility] [address] [id number] [place] [address]71 Dec, [facility] [place] [facility] [address] [id number] [place] [address] 2546 Nov, [facility] [address] [id number] [place] [address]- 2100 September, [facility] [address] [id number] [place] [address]- 9266 September, [facility] [address] [id number] [place] [address]- 6666 September, [facility] [address] [id number] [place] [address]- 0396 September, [facility] [address] [id number] [place] [address]- 6141 Aug, [facility] [address] [id number] [place] [address]- 5696 Aug, [facility] [address] [id number] [place] [address]- 8352 Aug, [facility] [address] [id number] [place] [address]- 1130 Aug, [facility] [address] [id number] [place] [address]- 0597 Aug, [facility] [address] [id number] [place] [address]- 8287 Jul, [facility] [address] [id number] [place] [address]- 2546 Jul, [facility] [address] [id number] [place] [address]- 9836 Jul, [facility] [place] [facility] [address] [id number] [place] [address]- 3916 29 Jun, 2011 [facility] [address] [id number] [place] [address]- 2546 17 Jun, 2011 [facility] [address] [id number] [place] [address]- 8469 13 Jun, 2011 [facility] [place] [facility] [address] [id number] [place] [address]- 6047 10 Jun, 2011 [facility] [place] [facility] [address] [id number] [place] [address]- 9476 07 Jun, 2011 [facility] [place] [facility] [address] [id number] [place] [address]- 2866 Jun, [facility] [place] [facility] [address] [id number] [place] [address]- 2548 Jun, [facility] [place] [facility] [address] [id number] [place] [address]- 7922 May, [facility] [place] [facility] [address] [id number] [place] [address]- 2231 May, [facility] [place] [facility] [address] [id number] [place] [address]- 4097 May, [facility] [place] [facility] [address] [id number] [place] [address]- 8780 May, [facility] [place] [facility] [address] [id number] [place] [address]- 6861 Apr, [facility] [place] [facility] [address] [id number] [place] [address]- 0120 Apr, [facility] [place] [facility] [address] [id number] [place] [address]- 2327 Mar, [facility] [place] [facility] [address] [id number] [place] [address]- 2450 Mar, [facility] [place] [facility] [address] [id number] [place] [address]- 8871 Mar, [facility] [place] [facility] [address] [id number] [place] [address]- 5146 Nov, [facility] [place] [facility] [address] [id number] [place] [address]- 2827 May, [facility] [place] [facility] [address] [id number] [place] [address]- 5069 23 Apr, 2010 [facility] [address] [id number] [place] [address]- 1216 Apr, [facility] [address] [id number] [place] [address]- 2396 13 Apr, 2010 [facility] [address] [id number] [place] [address]- 9976 Apr, [facility] [address] [id number] [place] [address]- 0364 Apr, [facility] [address] [id number] [place] [address]- 5153 Mar, [facility] [address] [id number] [place] [address]- 4802 Mar, [facility] [address] [id number] [place] [address]- 4482 Feb, [facility] [address] [id number] [place] [address]- 2233 14 Aug, 2009 [facility] [address] [id number] [place] [address]- 2198 Jul, [facility] [address] [facility] [id number] [place] [address]- 3771 17 Jun, 2009 [facility] [address] [id number] [place] [address]- 6414 Apr, [facility] [address] [id number] [place] [address]- 7214 Apr, [facility] [address] [id number] [place] [address]- 8452 Mar, [facility] [address] [id number] [place] [address]- 2546 Mar, [facility] [address] [id number] [place] [address]- 3841 Feb, [facility] [address] [facility] [id number] [place] [address] Dec, [facility] [address] [facility] [id number] [place] [address]- 2546 Oct, IMMUNIZATIONS No Known Immunizations SOCIAL HISTORY Never Assessed REASON FOR VISIT Lab (walk-in)--[facility] PLAN OF CARE VITAL SIGNS MEDICATIONS Unknown Medications RESULTS No Results PROCEDURES Procedure Date Ordered Result Body Site LAB NOT BILLED BY [facility] September 05, 2017 VENIPUNCT, ROUTINE* September 05, 2017 INSTRUCTIONS MEDICATIONS ADMINISTERED No Known Medications MEDICAL (GENERAL) HISTORY Type Description Date Medical History hypertension Medical History neuropathy Medical History depression Medical History anxiety Medical History Hyposmolality and/or hyponatremia Surgical History cleaned out left side of sinuses 2013 Surgical History colonscopy 09/03/15 Hospitalization History cellulitis 09/2013 Hospitalization History surgery 2013 Hospitalization History A Fib--[facility] 03/08/2016 Hospitalization History acute chest pain, hypertensive urgency, paroxsysmal htn-[facility] 05/10/16
--- OUTSIDE RECORDS SUMMARY | 2018-09-17 11:51 | XMS REPORT ---
Author Author JORDY DESIREE [facility] Address [address] [place] [address] Care Team Providers Care Stream Control Officer Name Role Phone DESIREE SPENCE Unavailable PROBLEMS Type Condition ICD9-CM Code NAY34-SS Code Onset Dates Condition Status SNOMED Code Problem Essential hypertension I10 Active 23793828 Problem Vitamin D deficiency E55.9 Active 76456500 Problem Hyperlipidemia E78.5 Active 34671573 Problem Depression, unspecified depression type F32.9 Active 46457102 Problem Fasciculations of muscle R25.3 Active 86728713 Problem Chronic frontal sinusitis J32.1 Active 27538219 Problem Hyponatremia E87.1 Active 31514857 Problem Other chronic gastritis without hemorrhage K29.50 Active 9903855 Problem Paroxysmal atrial fibrillation I48.0 Active 832806302 Problem Primary insomnia F51.01 Active 222627359 Problem Generalized anxiety disorder F41.1 Active 668387356 Problem Seasonal allergies J30.2 Active 125678592 Problem Hidradenitis L73.2 Active 16761683 Problem Idiopathic peripheral neuropathy G60.9 Active 38414806 Problem Mild intermittent asthma without complication J45.20 Active 416000084 Problem Elevated alkaline phosphatase level R74.8 Active 969650301 Problem Chronic migraine G43.709 Active 74497764 Problem Obstructive sleep apnea G47.33 Active [id number] ALLERGIES No Information ENCOUNTERS Encounter Location Date Diagnosis [facility] [address] [address] September, Medicare annual wellness visit, initial Z00.00 [facility] [id number] [place] [address] 42936- 2690 Aug, Essential hypertension I10 [facility] [address] [id number] [address] 09 Jun, 2017 Dysuria R30.0 ; UTI symptoms R39.9 and Candidiasis of breast B37.89 [facility] [id number] [place] [address] 29604- 9332 Jun, Hyponatremia E87.1 [facility] [id number] [place] [address] 35424- 7177 Jun, Hyponatremia E87.1 [facility] [id number] [place] [address] 92270- 4038 Jun, Hyponatremia E87.1 [facility] [id number] [place] [address] 34614- 2985 Jun, [facility] [id number] [place] [address] 16147- 6700 May, Hyponatremia E87.1 [facility] [id number] [place] [address] 98723- 2576 May, Hyponatremia E87.1 [facility] [id number] [place] [address] 38871- 8639 May, Hyponatremia E87.1 [facility] [id number] [place] [address] 63506- 9835 May, Hyponatremia E87.1 [facility] [id number] [place] [address] 07927- 4966 Apr, Hyponatremia E87.1 ; Fasciculations of muscle R25.3 and Hyperlipidemia E78.5 [facility] [address] [place] [address] 86138- 8438 Apr, Cough R05 ; Hyponatremia E87.1 ; Fasciculations of muscle R25.3 ; Primary insomnia F51.01 ; Essential hypertension I10 ; Hyperlipidemia E78.5 ; Screening for breast cancer Z12.31 and BMI 40.0-44.9, adult Z68.41 [place] [facility] [address] [place] [address] 88303- 5884 Apr, Essential hypertension I10 [facility] [address] [id number] [place] [address] 3850 14 Mar, 2017 [facility] [address] [facility] [id number] [place] [address]- 6327 Mar, [facility] [address] [facility] [id number] [place] [address]- 5690 09 Mar, 2017 [facility] [address] [facility] [id number] [place] [address]- 1703 Feb, [facility] [address] [facility] [id number] [place] [address]- 1139 Jan, [facility] [address] [facility] [id number] [place] [address]- 6005 14 Dec, 2016 Essential hypertension I10 [facility] [address] [place] [address] 1661 Dec, [facility] [address] [id number] [address] 6904 Dec, Essential hypertension I10 [facility] [address] [facility] [id number] [place] [address]- 9319 Nov, [facility] [id number] [address] 4721 Oct, Essential hypertension I10 [facility] [id number] [address]- 0188 Oct, Essential hypertension I10 [facility] [address] [facility] [id number] [address]- 3336 Oct, [facility] [address] [facility] [id number] [address] 1998 September, [facility] [address] [facility] [id number] [place] [address] 2138 September, Essential hypertension I10 [facility] [address] [id number] [address] 2039 September, [facility] [id number] [place] [address] 94093- 8401 September, Essential hypertension I10 ; Hyperlipidemia E78.5 and Hyponatremia E87.1 [facility] [id number] [place] [address] 19967- 8552 September, Mild intermittent asthma without complication J45.20 ; Essential hypertension I10 ; Hyperlipidemia E78.5 ; Hyponatremia E87.1 and Dysuria R30.0 [place] [facility] [id number] [place] [address] 90721- 3228 September, Other chronic gastritis without hemorrhage K29.50 ; Paroxysmal atrial fibrillation I48.0 and Essential hypertension I10 [facility] [facility] [id number] [place] [address] 43148- 9177 Aug, [place] [facility] [id number] [place] [address] 49620- 9461 Jul, [facility] [address] 77397- 1263 Jun, [facility] [address] 51816 -6769 07 Jun, 2016 Dysuria R30.0 and Acute cystitis with hematuria N30.01 [facility] [id number] [place] [address] 94397- 4826 Jun, Essential hypertension I10 [facility] [address] 28405- 8581 May, Paroxysmal atrial fibrillation I48.0 [facility] [facility] [id number] [place] [address] 16152- 3546 May, Other chronic gastritis without hemorrhage K29.50 [facility] [id number] [place] [address] 49970- 8589 May, [facility] [id number] [place] [address] 93050- 4249 May, Hyponatremia E87.1 ; Essential hypertension I10 and Other chronic gastritis without hemorrhage K29.50 [facility] [id number] [place] [address] 21908- 7273 May, Hyponatremia E87.1 [facility] [id number] [place] [address] 63357- 3943 May, Hyponatremia E87.1 [facility] [address] [id number] May, [facility] [address] 67963- 7224 16 Apr, 2016 [facility] [address] 08331- 2888 Apr, [facility] [address] 35983- 3137 Mar, Essential hypertension I10 and Candidal intertrigo B37.2 [facility] [address] 60647- 5272 Mar, Hyponatremia E87.1 [facility] [address] 32204- 2484 Mar, [facility] [address] 19862- 6032 Mar, Hyponatremia E87.1 [facility] [id number] [place] [address] 75062- 7145 Mar, Essential hypertension I10 ; Hyponatremia E87.1 ; Slurred speech R47.81 ; Paroxysmal atrial fibrillation I48.0 and Elevated blood sugar R73.9 [facility] [address] 09822- 4541 Mar, [facility] [id number] [place] [address] 75327- 6833 Mar, [facility] [address] 03718- 7240 Feb, [facility] [address] [address]- 7896 Jan, [facility] [id number] [place] [address] 49802- 9301 Dec, [facility] [id number] [place] [address] 89689 -6516 Nov, Scratched by cat, initial encounter W55.03XA and Other injury of unspecified body region T14.8 [facility] [id number] [place] [address] 74932- 1952 Nov, [facility] [id number] [place] [address] 71261- 3135 Oct, [facility] [id number] [place] [address] 95616- 2404 September, [facility] [id number] [place] [address] 95482- 3961 Aug, Elevated alkaline phosphatase level R74.8 [facility] [id number] [place] [address] 09640- 7005 Jul, [facility] [id number] [place] [address] 81534- 1307 Jun, Essential hypertension I10 and Bright red blood per rectum K62.5 [facility] [address] [place] [address] 39046- 7838 Jun, Elevated alkaline phosphatase level R74.8 [facility] [address] [place] [address] 47116- 9430 Jun, [facility] [id number] [place] [address] 34569- 8331 May, Essential hypertension I10 ; Hyperlipidemia E78.5 and Well woman exam (no gynecological exam) Z00.00 [facility] [id number] [place] [address] 32191- 6179 May, [place] [address] [address]- 6108 May, [place] [facility] [id number] [place] [address] 63540- 7079 Mar, [place] [facility] [id number] [place] [address] 30706- 6648 Mar, [place] [id number] [place] [address] 31778- 9971 Mar, [place] [facility] [id number] [place] [address] 82684- 8525 Feb, Acute recurrent maxillary sinusitis J01.01 ; Asthma, unspecified, unspecified status 493.90 ; Seasonal allergies J30.2 and Cat allergies J30.81 [place] [id number] [place] [address] 79138- 8039 Feb, Upper respiratory tract infection, unspecified upper respiratory infection J06.9 [place] [facility] [id number] [place] [address] 36654- 8403 Jan, [place] [facility] [id number] [place] [address] 09659- 9726 Jan, Dysphagia 787.20 and GERD (gastroesophageal reflux disease) 530.81 [place] [facility] [id number] [place] [address] 18918- 6393 Jan, Breast lesion 611.9 [place] [facility] [id number] [place] [address] 53184- 9597 Dec, Breast lesion 611.9 [place] [id number] [place] [address] 850332- 3751 Dec, Breast lesion 611.9 [place] [facility] [id number] [place] [address] 65211- 5101 Nov, Fatigue 780.79 and Hyperlipidemia 272.4 [place] [id number] [place] [address] 17487- 5176 Nov, Hypertension 401.9 ; Hyperlipidemia 272.4 ; Chronic frontal sinusitis 473.1 and Fatigue 780.79 [facility] [address] [facility] [id number] [address]- 2546 Nov, [facility] [address] [facility] [id number] [place] [address]- 2546 Oct, [facility] [address] [facility] [id number] [place] [address] 10455- 2546 Oct, [facility] [address] [facility] [id number] [place] [address] 24066- 1926 September, [facility] [id number] [place] [address] 88860- 5346 September, [facility] [id number] [place] [address] 91878- 0346 September, [facility] [address] [place] [address] 14609- 9586 September, [facility] [address] [address]- 7449 Aug, [facility] [address] [address]- 9546 Aug, [facility] [address] [address]- 5696 Aug, [facility] [address] [facility] [id number] [place] [address]- 2546 Jul, [facility] [address] [facility] [id number] [address]- 2546 Jul, [facility] [address] [id number] [address]- 2546 Jul, [facility] [address] [id number] [address]- 2546 Jul, [facility] [address] [address]- 5077 18 Jul, 2014 [facility] [place] [facility] [address] [id number] [place] [address]- 0957 Jul, [facility] [place] [facility] [address] [id number] [place] [address]- 5499 Jul, [facility] [place] [facility] [address] [id number] [place] [address]- 9879 Jul, [facility] [place] [facility] [address] [id number] [place] [address]- 9215 16 Jul, 2014 [facility] [place] [facility] [address] [id number] [place] [address]- 3964 Jul, [facility] [place] [facility] [address] [id number] [place] [address]- 7127 Jul, [facility] [place] [facility] [address] [facility] [id number] [place] [address]- 5000 Jul, [facility] [place] [facility] [address] [id number] [place] [address]- 9112 Jul, [facility] [place] [facility] [address] [id number] [place] [address]- 9425 Jul, [facility] [place] [facility] [address] [facility] [id number] [place] [address]- 1809 Jul, [facility] [place] [facility] [address] [id number] [address]- 4068 Jun, [facility] [place] [facility] [address] [id number] [address]- 5732 Jun, [facility] [place] [facility] [address] [id number] [place] [address]- 2937 Jun, [facility] [place] [facility] [address] [id number] [place] [address]- 2015 Jun, [facility] [place] [facility] [address] [facility] [id number] [address]- 8472 May, [facility] [place] [facility] [address] [id number] [place] [address]- 1480 May, [facility] [place] [facility] [address] [id number] [place] [address]- 8198 May, [facility] [place] [facility] [address] [id number] [place] [address]- 5074 May, [facility] [place] [facility] [address] [id number] [place] [address]- 6444 18 Apr, 2014 [facility] [place] [facility] [address] [id number] [place] [address]- 1648 Apr, [facility] [place] [facility] [address] [id number] [place] [address]- 8325 Apr, [facility] [place] [facility] [address] [id number] [place] [address]- 3104 Apr, [facility] [place] [facility] [address] [id number] [place] [address]- 7619 Apr, [facility] [place] [facility] [address] [id number] [place] [address]- 0159 Apr, [facility] [place] [facility] [address] [id number] [place] [address]- 4343 Mar, [facility] [place] [facility] [address] [id number] [place] [address]- 2077 Mar, [facility] [place] [facility] [address] [id number] [place] [address]- 7686 Mar, [facility] [place] [facility] [address] [id number] [place] [address]- 9950 Mar, [facility] [place] [facility] [address] [id number] [place] [address]- 0687 Mar, [facility] [place] [facility] [address] [id number] [place] [address]- 3892 Mar, [facility] [place] [facility] [address] [id number] [place] [address]- 0881 Mar, [facility] [place] [facility] [address] [id number] [place] [address]- 9420 Mar, [facility] [place] [facility] [address] [id number] [place] [address]- 3452 Mar, [facility] [place] [facility] [address] [facility] [id number] [place] [address]- 2589 Mar, [facility] [place] [facility] [address] [id number] [place] [address]- 9126 Mar, [facility] [place] [facility] [address] [id number] [place] [address]- 1913 Mar, [facility] [place] [facility] [address] [id number] [place] [address]- 4187 Mar, [facility] [place] [facility] [address] [id number] [place] [address]- 1078 Mar, [facility] [place] [facility] [address] [id number] [address]- 3966 Mar, [facility] [place] [facility] [address] [id number] [address]- 2224 Mar, [facility] [place] [facility] [address] [id number] [address]- 8145 Mar, [facility] [place] [facility] [address] [id number] [place] [address]- 7039 Feb, [facility] [place] [facility] [address] [id number] [place] [address]- 5790 Feb, [facility] [place] [facility] [address] [id number] [place] [address]- 6367 Feb, [facility] [place] [facility] [address] [id number] [place] [address]- 5550 Feb, [facility] [place] [facility] [address] [id number] [place] [address]- 0961 Feb, [facility] [place] [facility] [address] [id number] [place] [address]- 9087 29 Feb, 2013 [facility] [place] [facility] [address] [id number] [place] [address]- 3211 Feb, [facility] [place] [facility] [address] [id number] [place] [address]- 3398 Feb, [facility] [place] [facility] [address] [id number] [place] [address]- 0609 Feb, [facility] [place] [facility] [address] [id number] [place] [address]- 0492 Feb, [facility] [place] [facility] [address] [id number] [place] [address]- 9926 Feb, [facility] [place] [facility] [address] [id number] [place] [address]- 5737 16 Feb, 2014 [facility] [place] [facility] [address] [id number] [place] [address]- 4857 Feb, [facility] [place] [facility] [address] [id number] [place] [address]- 3592 15 Feb, 2014 [facility] [place] [facility] [address] [id number] [place] [address]- 9973 Feb, [facility] [place] [facility] [address] [id number] [place] [address]- 3694 Feb, [facility] [place] [facility] [address] [id number] [place] [address]- 4590 Feb, [facility] [place] [facility] [address] [id number] [place] [address]- 7510 Feb, [facility] [place] [facility] [address] [id number] [place] [address]- 8288 Feb, [facility] [place] [facility] [address] [id number] [place] [address]- 0936 30 Jan, 2014 [facility] [place] [facility] [address] [id number] [place] 1502 30 Jan, 2014 [facility] [place] [facility] [address] [id number] [place] [address]- 7499 29 Jan, 2013 [facility] [place] [facility] [address] [id number] [place] [address]- 4814 29 Jan, 2013 [facility] [place] [facility] [address] [id number] [place] [address]- 9994 24 Jan, 2013 [facility] [place] [facility] [address] [id number] [place] [address]- 7830 24 Jan, 2013 [facility] [place] [facility] [address] [id number] [place] [address]- 3148 10 Jan, 2013 [facility] [place] [facility] [address] [id number] [place] [address]- 7366 08 Jan, 2013 [facility] [place] [facility] [address] [id number] [place] [address]- 7005 Jan, 2013 [facility] [place] [facility] [address] [id number] [place] [address]- 6944 Dec, [facility] [place] [facility] [address] [id number] [place] [address]- 8883 Dec, [facility] [place] [facility] [address] [id number] [place] [address]- 1944 Dec, [facility] [place] [facility] [address] [id number] [place] [address]- 6392 Dec, [facility] [place] [facility] [address] [id number] [place] [address] Dec, [facility] [place] [facility] [address] [id number] [place] [address] Dec, [facility] [place] [facility] [address] [id number] [place] [address] Dec, [facility] [place] [facility] [address] [id number] [place] [address] Dec, [facility] [place] [facility] [address] [id number] [place] [address] Dec, [facility] [place] [facility] [address] [id number] [place] [address] Nov, [facility] [place] [facility] [address] [id number] [place] [address] Nov, [facility] [place] [facility] [address] [id number] [place] [address] Nov, [facility] [place] [facility] [address] [id number] [place] [address] Nov, [facility] [place] [facility] [address] [id number] [place] [address]- [address] Nov, [facility] [place] [facility] [address] [id number] [place] [address]- [address] Nov, [facility] [place] [facility] [address] [id number] [place] [address] Oct, [facility] [place] [facility] [address] [id number] [place] [address] Oct, [facility] [place] [facility] [address] [id number] [place] [address] Oct, [facility] [place] [facility] [address] [id number] [place] [address]- [address] Oct, [facility] [place] [facility] [address] [id number] [place] [address]- [address] Oct, [facility] [place] [facility] [address] [id number] [place] [address] Oct, [facility] [place] [facility] [address] [id number] [place] [address]- [address]94 Oct, [facility] [place] [facility] [address] [id number] [place] [address]- [address]4 Oct, [facility] [place] [facility] [address] [id number] [place] [address] 89[address] Oct, [facility] [place] [facility] [address] [id number] [place] [address]- [address] Oct, [facility] [place] [facility] [address] [id number] [place] [address] Oct, [facility] [place] [facility] [address] [id number] [place] [address]- [address] Oct, [facility] [place] [facility] [address] [id number] [place] [address]145 Oct, [facility] [place] [facility] [address] [id number] [place] [address] Oct, [facility] [place] [facility] [address] [id number] [place] [address] September, [facility] [place] [facility] [address] [id number] [place] [address] September, [facility] [place] [facility] [address] [id number] [place] [address] September, [facility] [address] [id number] [place] [address]- [address] September, [facility] [place] [facility] [address] [id number] [place] [address]- [address] September, [facility] [place] [facility] [address] [id number] [place] [address]- [address]255 September, [facility] [place] [facility] [address] [id number] [place] [address]- 2624 September, [facility] [place] [facility] [address] [id number] [place] [address] September, [facility] [place] [facility] [address] [id number] [place] [address] [address] September, [facility] [place] [facility] [address] [id number] [place] [address]- 1706 September, [facility] [place] [facility] [address] [id number] [place] [address]- [address] September, [facility] [place] [facility] [address] [id number] [place] [address]- [address] September, [facility] [place] [facility] [address] [id number] [place] [address]- 3097 September, [facility] [place] [facility] [address] [id number] [place] [address]- [address] September, [facility] [place] [facility] [address] [id number] [place] [address] September, [facility] [place] [facility] [address] [id number] [place] [address] September, [facility] [place] [facility] [address] [id number] [place] [address] September, [facility] [place] [facility] [address] [id number] [place] [address] 85[address] September, [facility] [place] [facility] [address] [id number] [place] [address] 6[address] September, [facility] [place] [facility] [address] [id number] [place] [address] Aug, [facility] [place] [facility] [address] [id number] [place] [address] 65[address] Aug, [facility] [place] [facility] [address] [id number] [place] [address] 240[address] Jul, [facility] [place] [facility] [address] [id number] [place] [address] 264[address] Jul, [facility] [place] [facility] [address] [id number] [place] [address] 2[address] Jul, [facility] [place] [facility] [address] [id number] [place] [address] 38[address] Jul, [facility] [place] [facility] [address] [id number] [place] [address] 8[address] Jul, [facility] [place] [facility] [address] [id number] [place] [address] 9[address] 27 Jul, 2013 [facility] [place] [facility] [address] [id number] [place] [address] 64[address] 27 Jul, 2013 [facility] [place] [facility] [address] [id number] [place] [address] 89[address] 27 Jul, 2013 [facility] [place] [facility] [address] [id number] [place] [address] 1779 Jul, [facility] [place] [facility] [address] [id number] [place] [address] 68[address] 25 Jul, 2013 [facility] [place] [facility] [address] [id number] [place] [address] 7590 Jul, [facility] [place] [facility] [address] [id number] [place] [address]- 0714 14 Jul, 2013 [facility] [place] [facility] [address] [id number] [place] [address] 6[address] 07 Jul, 2013 [facility] [place] [facility] [address] [id number] [place] [address] 3[address] 07 Jul, 2013 [facility] [place] [facility] [address] [id number] [place] [address]- 2820 10 Jun, 2013 [facility] [place] [facility] [address] [id number] [place] [address]- 2812 Jun, [facility] [place] [facility] [address] [id number] [place] [address] 9382 Jun, [facility] [place] [facility] [address] [id number] [place] [address]- 0487 Jun, [facility] [place] [facility] [address] [id number] [place] [address] 0785 May, [facility] [place] [facility] [address] [id number] [place] [address]- 2312 May, [facility] [place] [facility] [address] [id number] [place] [address]- 8894 May, [facility] [place] [facility] [address] [id number] [place] [address]- 8287 May, [facility] [place] [facility] [address] [id number] [place] [address]- 0642 May, [facility] [place] [facility] [address] [id number] [place] [address]- 5404 Mar, [facility] [place] [facility] [address] [id number] [place] [address] 9594 Mar, [facility] [place] [facility] [address] [id number] [place] [address]- 8782 Mar, [facility] [place] [facility] [address] [id number] [place] [address]- 1071 Mar, [facility] [place] [facility] [address] [id number] [place] [address]- 3961 Mar, [facility] [place] [facility] [address] [id number] [place] [address]- 9657 Mar, [facility] [place] [facility] [address] [id number] [place] [address]- 7929 Feb, [facility] [place] [facility] [address] [id number] [place] [address] 8849 Feb, [facility] [place] [facility] [address] [id number] [place] [address]- 4664 Feb, [facility] [place] [facility] [address] [id number] [address] 80[address] Feb, [facility] [place] [facility] [address] [id number] [place] [address]- 0724 Feb, [facility] [place] [facility] [address] [id number] [place] [address] 4100 Feb, [facility] [place] [facility] [address] [id number] [place] [address]- 4825 Feb, [facility] [place] [facility] [address] [id number] [place] [address]- 4670 Feb, [facility] [place] [facility] [address] [id number] [place] [address]- 3828 Feb, [facility] [place] [facility] [address] [id number] [place] [address]- 9493 Feb, [facility] [place] [facility] [address] [id number] [place] [address]- 6697 Feb, [facility] [place] [facility] [address] [id number] [place] [address] 3822 Feb, [facility] [place] [facility] [address] [id number] [place] [address]- 1704 Jan, [facility] [place] [facility] [address] [id number] [place] [address] 1948 Jan, [facility] [place] [facility] [address] [id number] [place] [address] Dec, [facility] [place] [facility] [address] [id number] [place] [address]- 1341 Dec, [facility] [place] [facility] [address] [id number] [place] [address]- 3598 Nov, [facility] [place] [facility] [address] [id number] [place] [address]- 4093 Nov, [facility] [place] [facility] [address] [id number] [place] [address]- 1726 Nov, [facility] [place] [facility] [address] [id number] [place] [address]- 8407 Nov, [facility] [place] [facility] [address] [id number] [place] [address]- 5009 Nov, [facility] [place] [facility] [address] [id number] [place] [address] 2922 Oct, [facility] [place] [facility] [address] [id number] [place] [address] 9349 September, [facility] [place] [facility] [address] [id number] [place] [address] 3734 Aug, [facility] [address] [id number] [place] [address] 6541 29 Jul, 2012 [facility] [place] [facility] [address] [id number] [place] [address] 5826 Jul, [facility] [address] [id number] [place] [address]- 7760 Jul, [facility] [address] [id number] [place] [address]- 6841 Jun, [facility] [address] [id number] [place] [address]- 0511 14 Jun, 2012 [facility] [address] [id number] [place] [address]- 8973 Jun, [facility] [address] [id number] [place] [address]- 7542 Jun, [facility] [address] [id number] [place] [address]- 2480 Jun, [facility] [address] [facility] [id number] [place] [address]- 4293 May, [facility] [address] [id number] [place] [address]- 7141 May, [facility] [address] [id number] [place] [address]- 1727 Apr, [facility] [address] [id number] [place] [address] Apr, [facility] [place] [facility] [address] [id number] [place] [address]- 6112 Mar, [facility] [place] [facility] [address] [id number] [place] [address]- 0994 Mar, [facility] [address] [id number] [place] [address]- 3568 Mar, [facility] [place] [facility] [address] [id number] [place] [address]- 9189 Mar, [facility] [place] [facility] [address] [id number] [place] [address]- 6524 Mar, [facility] [place] [facility] [address] [facility] [id number] [place] [address] Mar, [facility] [place] [facility] [address] [id number] [place] [address]- 4999 Mar, [facility] [place] [facility] [address] [id number] [place] [address]- 9655 Mar, [facility] [place] [facility] [address] [facility] [id number] [place] [address]- 0355 Mar, [facility] [place] [facility] [address] [facility] [id number] [place] [address]- 1072 Mar, [facility] [place] [facility] [address] [id number] [place] [address]- 3215 Feb, [facility] [place] [facility] [address] [id number] [place] [address]- 4382 Feb, [facility] [place] [facility] [address] [facility] [id number] [place] [address]- 5713 Feb, [facility] [place] [facility] [address] [id number] [place] [address]- 8499 30 Feb, 2012 [facility] [place] [facility] [address] [id number] [place] [address]- 0816 Feb, [facility] [place] [facility] [address] [id number] [place] [address]- 2402 Feb, [facility] [place] [facility] [address] [facility] [id number] [place] [address]- 0434 Jan, [facility] [place] [facility] [address] [facility] [id number] [place] [address]- 3326 05 Jan, 2012 [facility] [place] [facility] [address] [id number] [place] [address]- 8760 Dec, [facility] [address] [id number] [place] [address]- 9219 Dec, [facility] [address] [id number] [place] [address]- 0062 Dec, [facility] [address] [id number] [place] [address]- 7056 Nov, [facility] [address] [id number] [place] [address]- 8606 September, [facility] [address] [id number] [place] [address]- 3233 September, [facility] [address] [id number] [place] [address]- 5329 September, [facility] [address] [id number] [place] [address]- 0246 September, [facility] [address] [id number] [place] [address]- 7661 Aug, [facility] [address] [id number] [place] [address]- 3182 Aug, [facility] [address] [id number] [place] [address]- 7520 Aug, [facility] [address] [id number] [place] [address]- 2014 Aug, [facility] [address] [id number] [place] [address]- 1911 Aug, [facility] [address] [id number] [place] [address]- 6857 Jul, [facility] [address] [id number] [place] [address]- 2546 Jul, [facility] [address] [id number] [place] [address]- 4135 Jul, [facility] [place] [facility] [address] [id number] [place] [address]- 1432 29 Jun, 2011 [facility] [place] [facility] [address] [id number] [place] [address]- 0406 17 Jun, 2011 [facility] [place] [facility] [address] [id number] [place] [address]- 4436 13 Jun, 2011 [facility] [place] [facility] [address] [id number] [place] [address]- 3840 10 Jun, 2011 [facility] [place] [facility] [address] [id number] [place] [address]- 9892 Jun, [facility] [place] [facility] [address] [id number] [place] [address]- 5740 Jun, [facility] [place] [facility] [address] [id number] [place] [address]- 0831 Jun, [facility] [place] [facility] [address] [id number] [place] [address]- 8471 May, [facility] [place] [facility] [address] [id number] [place] [address]- 9750 May, [facility] [place] [facility] [address] [id number] [place] [address]- 3318 May, [facility] [place] [facility] [address] [id number] [place] [address]- 7952 May, [facility] [place] [facility] [address] [id number] [place] [address]- 2472 Apr, [facility] [place] [facility] [address] [id number] [place] [address]- 1419 Apr, [facility] [place] [facility] [address] [id number] [place] [address]- 4028 Mar, [facility] [place] [facility] [address] [id number] [place] [address]- 1436 Mar, [facility] [place] [facility] [address] [id number] [place] [address]- 2900 Mar, [facility] [address] [id number] [place] [address]- 5751 11 Nov, 2010 [facility] [address] [id number] [place] [address]- 1366 13 May, 2010 [facility] [address] [id number] [place] [address]- 7696 23 Apr, 2010 [facility] [address] [id number] [place] [address] 2549 13 Apr, 2010 [facility] [address] [id number] [place] [address]- 7807 13 Apr, 2010 [facility] [address] [id number] [place] [address]- 7804 Apr, [facility] [address] [id number] [place] [address]- 5297 Apr, [facility] [address] [id number] [place] [address]- 5976 18 Mar, 2010 [facility] [address] [id number] [place] [address]- 1570 08 Mar, 2010 [facility] [address] [facility] [id number] [place] [address]- 7134 20 Feb, 2010 [facility] [address] [id number] [place] [address]- 7833 14 Aug, 2009 [facility] [address] [id number] [place] [address]- 1556 10 Jul, 2009 [facility] [address] [id number] [place] [address]- 5706 17 Jun, 2009 [facility] [address] [id number] [place] [address]- 9478 30 Apr, 2009 [facility] [address] [id number] [place] [address]- 2545 Apr, [facility] [address] [facility] [id number] [place] [address]- 2546 Mar, [facility] [address] [id number] [place] [address]- 2546 Mar, [facility] [address] [facility] [id number] [place] [address]- 2546 Feb, [facility] [address] [id number] [place] [address]- 2546 Dec, [facility] [address] [facility] [id number] [place] [address]- 2546 Oct, IMMUNIZATIONS No Known Immunizations SOCIAL HISTORY Never Assessed REASON FOR VISIT Controlled Refill Request PLAN OF CARE VITAL SIGNS MEDICATIONS Medication Instructions Dosage Frequency Start Date End Date Duration Status Ambien 5 MG take 1 tablet by Oral route at bedtime 1 time per day Jul, 28 days Active RESULTS No Results PROCEDURES No Known procedures INSTRUCTIONS MEDICATIONS ADMINISTERED No Known Medications MEDICAL (GENERAL) HISTORY Type Description Date Medical History hypertension Medical History neuropathy Medical History depression Medical History anxiety Medical History Hyposmolality and/or hyponatremia Surgical History cleaned out left side of sinuses 2013 Surgical History colonscopy 09/03/15 Hospitalization History cellulitis 09/2013 Hospitalization History surgery 2013 Hospitalization History A Fib--[facility] 03/08/2016 Hospitalization History acute chest pain, hypertensive urgency, paroxsysmal htn-[facility] 05/10/16
--- OUTSIDE RECORDS SUMMARY | 2018-09-17 11:52 | XMS REPORT ---
Author Author DESIREE SPENCE eClinicalWorks Address Unknown Phone Unavailable Care Team Providers Care Supervisor Pairing And Inspecting Name Role Phone DESIREE SPENCE CP Unavailable Allergies No Known Allergies Problems Problem Type Condition Code Onset Dates Condition Status Problem Unspecified hereditary and idiopathic peripheral neuropathy 356.9 Active Problem Obstructive sleep apnea (adult) (pediatric) 327.23 Active Problem Anxiety state, unspecified 300.00 Active Problem Cat allergies J30.81 Active Problem Hypertension 401.9 Active Problem Seasonal allergies J30.2 Active Problem Unspecified vitamin D deficiency 268.9 Active Problem Asthma, unspecified, unspecified status 493.90 Active Problem Hyperlipidemia 272.4 Active Problem Elevated alkaline phosphatase level 790.5 Active Problem Chronic frontal sinusitis 473.1 Active Problem Headache 784.0 Active Problem Persistent disorder of initiating or maintaining sleep 307.42 Active Problem Hidradenitis 705.83 Active Medications Medication Code System Code Instructions Start Date End Date Status Dosage Lisinopril [facility] [address]-54 20 MG Orally Once a day 1 tablet Results No Known Results Summary Purpose eClinicalWorks Submission
--- OUTSIDE RECORDS SUMMARY | 2018-09-17 11:52 | XMS REPORT ---
Author Author DESIREE SPENCE Organization [facility] Address [address] [place] [address] Care Team Providers Care Landscape Maintenance Internship Name Role Phone JORDY DESIREE Unavailable PROBLEMS Type Condition ICD9-CM Code NUL11-SR Code Onset Dates Condition Status SNOMED Code Problem Elevated alkaline phosphatase level R74.8 Active 223663274 Problem Essential hypertension I10 Active 60268155 Problem Obstructive sleep apnea G47.33 Active 57083025 Problem Other chronic gastritis without hemorrhage K29.50 Active 4009460 Problem Paroxysmal atrial fibrillation I48.0 Active 075019317 Problem Vitamin D deficiency E55.9 Active 49722651 Problem Hyperlipidemia E78.5 Active 02013230 Problem Chronic frontal sinusitis J32.1 Active 06358562 Problem Hyponatremia E87.1 Active 85376486 Problem Seasonal allergies J30.2 Active 706744804 Problem Mild intermittent asthma without complication J45.20 Active 314320586 Problem Chronic migraine G43.709 Active 83821358 Problem Primary insomnia F51.01 Active 588103972 Problem Hidradenitis L73.2 Active 37474034 Problem Generalized anxiety disorder F41.1 Active 776360532 Problem Idiopathic peripheral neuropathy G60.9 Active 41755766 ALLERGIES Unknown Allergies SOCIAL HISTORY No smoking Hx information available PLAN OF CARE VITAL SIGNS MEDICATIONS Medication Instructions Dosage Frequency Start Date End Date Duration Status Ambien 5 MG take 1 tablet by Oral route at bedtime 1 time per day Jul, 28 days Active RESULTS No Results PROCEDURES No Known procedures IMMUNIZATIONS No Known Immunizations
--- OUTSIDE RECORDS SUMMARY | 2018-09-17 11:52 | XMS REPORT ---
Author Author DESIREE SPENCE eClinicalWorks Address Unknown Phone Unavailable Care Team Providers Care Strategy Intern Name Role Phone DESIREE SPENCE CP Unavailable Allergies No Known Allergies Problems Problem Type Condition Code Onset Dates Condition Status Problem Essential hypertension I10 Active Problem Chronic migraine G43.709 Active Problem Chronic frontal sinusitis J32.1 Active Problem Mild intermittent asthma without complication J45.20 Active Problem Obstructive sleep apnea G47.33 Active Problem Vitamin D deficiency E55.9 Active Problem Hidradenitis L73.2 Active Problem Primary insomnia F51.01 Active Problem Generalized anxiety disorder F41.1 Active Problem Idiopathic peripheral neuropathy G60.9 Active Problem Seasonal allergies J30.2 Active Problem Hyponatremia E87.1 Active Problem Elevated alkaline phosphatase level R74.8 Active Problem Hyperlipidemia E78.5 Active Medications Medication Code System Code Instructions Start Date End Date Status Dosage Ambien [facility] [address]-20 5 MG July 18, 2014 take 1 tablet by Oral route at bedtime 1 time per day Results No Known Results Summary Purpose eClinicalWorks Submission
--- OUTSIDE RECORDS SUMMARY | 2018-09-17 11:52 | XMS REPORT ---
Author KALANI [facility] eClinicalWorks Address Unknown Phone Unavailable Care Team Providers Care General Milling Superintendent Name Role Phone KALANI ASHBY Unavailable Allergies No Known Allergies Problems Problem [...] Instructions Start Date End Date Status Dosage Abilify [facility]NOTE 3] [address]-37 5 MG Orally Once a day 1 tablet Flonase [facility][NOTE 3] [address]-43 50 MCG/ACT Nasally Once a day November 21, 2014 1 spray in each nostril buspirone [facility][NOTE 3] 0 5 mg Feb 20, 2014 take 2 tablets by Oral route 4 times per day Ambien [facility][NOTE 3] [address]-87 5 MG July 18, 2014 take 1 tablet by Oral route at bedtime 1 time per day Hydrochlorothiazide [facility][NOTE 3] [address]-15 12.5 MG Orally Once a day 1 Capsule Xarelto [facility]NOTE 3] [address]-39 20 mg Orally Once a day 1 tablet with food Diltiazem CD [facility]NOTE 3] [address]-04 240 MG Orally Once a day 1 capsule Carafate [facility][NOTE 3] 42072371940 1 GM 1 TAB(S) PO QIDACHS CarBAMazepine ER [facility][NOTE 3] [address]-30 200 MG Orally once a day in am & 2 tabs every pm 1 capsule Nortriptyline HCl [facility][NOTE 3] [address]-86 25 MG Orally Once a day at bedtime 2 capsule Protonix [facility]NOTE 3] [address]-18 40 MG Orally Once a day 1 tablet Metoprolol Succinate ER [facility]NOTE 3] [address]-57 50 MG Orally Once a day 1 tablet Alprazolam [facility][NOTE 3] [address]-08 0.5 mg Jan 30, 2014 take 1 tablet by Oral route 2 times per day Pristiq [facility] [place][NOTE 3] [address]-23 100 mg Jan 30, 2014 once daily ProAir HFA [facility] [place][NOTE 3] [address]-19 90 mcg/actuation Jan 02, 2014 2 puffs by Inhalation route 4 times per day PRN needs to keep appointment 01-10-14 Results No Known Results Summary Purpose eClinicalWorks Submission
--- OUTSIDE RECORDS SUMMARY | 2018-09-17 11:52 | XMS REPORT ---
Author DESIREE Luna eClinicalWorks Address Unknown Phone Unavailable Care Team Providers Care Fitter Machinist Name Role Phone DESIREE SPENCE CP Unavailable Allergies No Known Allergies Problems Problem Type Condition Code Onset Dates Condition Status Problem Chronic frontal sinusitis J32.1 Active Problem Primary insomnia F51.01 Active Problem Chronic migraine G43.709 Active Problem Vitamin D deficiency E55.9 Active Problem Mild intermittent asthma without complication J45.20 Active Problem Paroxysmal atrial fibrillation I48.0 Active Problem Idiopathic peripheral neuropathy G60.9 Active Problem Hidradenitis L73.2 Active Problem Obstructive sleep apnea G47.33 Active Problem Generalized anxiety disorder F41.1 Active Problem Hyponatremia E87.1 Active Problem Elevated alkaline phosphatase level R74.8 Active Assessment Hyponatremia E87.1 Active Problem Hyperlipidemia E78.5 Active Problem Seasonal allergies J30.2 Active Problem Essential hypertension I10 Active Medications No Known Medications Procedures Procedure Coding System Code Date VENIPUNCT, ROUTINE* CPT-4 96440 Mar 30, 2016 LAB NOT BILLED BY [facility] CPT-4 NOBLL Mar 30, 2016 Results Name Result Date Reference Range Unit Abnormality Flag ROUTINE VENIPUNCTURE BMP ----Calcium, Serum 8.7 59803994 8.7-10.2 mg/dL ----Sodium, Serum 133 94698033 136-144 mmol/L L ----BUN/Creatinine Ratio 8 99586998 9-23 L ----Chloride, Serum 93 40079813 97-106 mmol/L L ----Carbon Dioxide, Total 25 67554871 18-29 mmol/L ----Potassium, Serum 4.1 89783259 3.5-5.2 mmol/L ----eGFR If NonAfricn Am 102 [id number] >59 mL/min/1.73 ----eGFR If Africn Am 117 [id number] >59 mL/min/1.73 ----BUN 5 48390630 6-24 mg/dL L ----Creatinine, Serum 0.62 20160330 0.57-1.00 mg/dL ----Glucose, Serum 102 20160330 65-99 mg/dL H Summary Purpose eClinicalWorks Submission
--- OUTSIDE RECORDS SUMMARY | 2018-09-17 11:52 | XMS REPORT ---
Author Author DESIREE SPENCE eClinicalWorks Address Unknown Phone Unavailable Care Team Providers Care Associate Director Of Development Name Role Phone DESIREE SPENCE CP Unavailable Allergies, Adverse Reactions, Alerts Substance Reaction Event Type Amitriptyline HCl Info Not Available Drug Allergy Problems Problem Type Condition Code Onset Dates [...] Active Problem Generalized anxiety disorder F41.1 Active Assessment Slurred speech R47.81 Active Assessment Hyponatremia E87.1 Active Assessment Elevated blood sugar R73.9 Active Assessment Paroxysmal atrial fibrillation I48.0 Active Problem Hyponatremia E87.1 Active Problem Elevated alkaline phosphatase level R74.8 Active Assessment Essential hypertension I10 Active Problem Hyperlipidemia E78.5 Active Problem Seasonal allergies J30.2 Active Problem Essential hypertension I10 Active Medications Medication Code System Code Instructions Start Date End Date Status Dosage Lisinopril [facility] [address]-01 10 MG Orally Once a day Mar 17, 2016 1 tablet Alprazolam [facility] [address]-16 0.5 mg Jan 30, 2014 take 1 tablet by Oral route 2 times per day Nortriptyline HCl [facility] [address]-87 25 MG Orally Once a day at bedtime 2 capsule Protonix [facility] [address]-64 40 MG Orally Once a day 1 tablet Desvenlafaxine ER [facility] [address]-33 100 MG Orally Once a day 1 tablet Pristiq [facility] [address]-18 100 mg Jan 30, 2014 once daily Metoprolol Succinate ER [facility] [address]-04 50 MG Orally Once a day 1 tablet Diltiazem CD [facility] [address]-64 240 MG Orally Once a day 1 capsule Carafate [facility] 34937900000 1 GM 1 TAB(S) PO NIRAV Cooper [facility] [address]-09 5 MG July 18, 2014 take 1 tablet by Oral route at bedtime 1 time per day CarBAMazepine ER [facility] [address]-36 200 MG Orally once a day in am & 2 tabs every pm 1 capsule Aripiprazole [facility] [address]-31 5 MG Orally Once a day 1 tablet Xarelto [facility] [address]-81 20 mg Orally Once a day 1 tablet with food Hydrochlorothiazide [facility] [address]-83 12.5 MG Orally Once a day 1 Capsule buspirone [facility] 0 5 mg Feb 20, 2014 take 2 tablets by Oral route 4 times per day Flonase [facility] [address]-90 50 MCG/ACT Nasally Once a day November 21, 2014 1 spray in each nostril ProAir HFA [facility] [address]-14 90 mcg/actuation Jan 02, 2014 2 puffs by Inhalation route 4 times per day PRN needs to keep appointment 01-10-14 Procedures Procedure Coding System Code Date GLYCATED HEMOGLOBIN TEST CPT-4 85167 Mar 17, 2016 [facility] VISIT ESTABLISHED PATIENT CPT-4 G0467 Mar 17, 2016 LAB [facility]ED [facility] CPT-4 NOBLL Mar 17, 2016 VENIPUNCT, ROUTINE* CPT-4 50352 Mar 17, 2016 Office Visit, Est Pt., Level 3 CPT-4 73527 Mar 17, 2016 Vital Signs Date/Time: Mar 17, 2016 Cardiac Monitoring Heart Rate 82 bpm Weight 281.5 lbs Height 66 in BMI 45.43 Index Blood Pressure Diastolic 84 mmHg Blood Pressure Systolic 142 mmHg Results Name Result Date Reference Range Unit Abnormality Flag CBC ----Lymphs 16 30653557 % ----Neutrophils 75 85072086 % ----Baso (Absolute) 0.0 61232356 0.0-0.2 x10E3/uL ----Hemoglobin 11.8 33990965 11.1-15.9 g/dL ----Eos (Absolute) 0.1 53983052 0.0-0.4 x10E3/uL ----Hematocrit 34.5 81254057 34.0-46.6 % ----Monocytes(Absolute) 0.6 47083794 0.1-0.9 x10E3/uL ----MCV 85 41734757 79-97 fL ----Lymphs (Absolute) 1.4 65133039 0.7-3.1 x10E3/uL ----MCH 28.9 70178853 26.6-33.0 pg ----Neutrophils (Absolute) 6.5 30908190 1.4-7.0 x10E3/uL ----MCHC 34.2 29185075 31.5-35.7 g/dL ----Immature Granulocytes 1 39258592 % ----Basos 0 44773244 % ----RDW 13.8 93719089 12.3-15.4 % ----Immature Grans (Abs) 0.0 86543327 0.0-0.1 x10E3/uL ----WBC 8.8 09907777 3.4-10.8 x10E3/uL ----Platelets 306 01862651 150-379 x10E3/uL ----Eos 1 40930303 % ----RBC 4.08 95996557 3.77-5.28 x10E6/uL ----Monocytes 7 02799161 % BMP ----eGFR If Africn Am 121 44110007 >59 mL/min/1.73 ----eGFR If NonAfricn Am 105 12485976 >59 mL/min/1.73 ----Sodium, Serum 126 20160317 136-144 mmol/L L ----Calcium, Serum 8.9 97950665 8.7-10.2 mg/dL ----BUN/Creatinine Ratio 11 20160317 9-23 ----Glucose, Serum 113 27813324 65-99 mg/dL H ----Creatinine, Serum 0.56 53842078 0.57-1.00 mg/dL L ----BUN 6 20160317 6-24 mg/dL ----Carbon Dioxide, Total 26 20160317 18-29 mmol/L ----Potassium, Serum 4.4 54020723 3.5-5.2 mmol/L ----Chloride, Serum 83 20160317 97-106 mmol/L L ROUTINE VENIPUNCTURE TSH ----TSH 2.360 20160317 0.450-4.500 uIU/mL A1C (IN HOUSE) ----Exp date [id number] ----Lot [id number] ----Previous A1c N/A [id number] ----A1C IN HOUSE 5.6 20160317 4.3 - 5.6 % MRI : Brain w/o Contrast Summary Purpose eClinicalWorks Submission
--- OUTSIDE RECORDS SUMMARY | 2018-09-17 11:52 | XMS REPORT ---
Author Author TIFFANY LAUREN Organization [facility] Address [address] [place] [address] Care Team Providers Care Injection Molding Machine Offbearer Name Role Phone TIFFANY LAUREN Unavailable PROBLEMS Type Condition ICD9-CM Code QPO36-YC Code Onset Dates Condition Status SNOMED Code Problem Elevated alkaline phosphatase level R74.8 Active 259582783 Problem Essential hypertension I10 Active 72880218 Problem Obstructive sleep apnea G47.33 Active 65966117 Problem Other chronic gastritis without hemorrhage K29.50 Active 7072776 Problem Paroxysmal atrial fibrillation I48.0 Active 793199572 Problem Vitamin D deficiency E55.9 Active 01147178 Problem Hyperlipidemia E78.5 Active 78492741 Problem Chronic frontal sinusitis J32.1 Active 10929303 Problem Hyponatremia E87.1 Active 06145616 Problem Seasonal allergies J30.2 Active 666971694 Problem Mild intermittent asthma without complication J45.20 Active 819881492 Problem Chronic migraine G43.709 Active 74085532 Problem Primary insomnia F51.01 Active 984861087 Problem Hidradenitis L73.2 Active 28050618 Problem Generalized anxiety disorder F41.1 Active 470425509 Problem Idiopathic peripheral neuropathy G60.9 Active 32230164 ALLERGIES Substance Reaction Event Type Date Status Amitriptyline HCl Unknown Drug Allergy Jun, Active SOCIAL HISTORY No smoking Hx information available PLAN OF CARE Activity Details Follow Up prn Reason: VITAL SIGNS Height 66 in 2016-06-15 Weight 263.8 lbs 2016-06-15 Temperature 98.6 degrees Fahrenheit 2016-06-15 Heart Rate 76 bpm 2016-06-15 Respiratory Rate 20 2016-06-15 BMI 42.57 kg/m2 2016-06-15 Blood pressure systolic 132 mmHg 2016-06-15 Blood pressure diastolic 82 mmHg 2016-06-15 MEDICATIONS Medication Instructions Dosage Frequency Start Date End Date Duration Status Flonase 50 MCG/ACT Nasally Once a day 1 spray in each nostril 24h Nov, Active CarBAMazepine ER 200 MG Orally once a day in am & 2 tabs every pm 1 capsule Active Lisinopril 40 MG Orally Once a day 1 tablet 24h Mar, Active Metoprolol Succinate ER 50 MG Orally Once a day 1 tablet 24h Active Abilify 5 MG Orally Once a day 1 tablet 24h Active Diltiazem CD 240 MG Orally Once a day 1 capsule 24h Active Bactrim DS 800-160 MG Orally Twice a day 1 tablet 12h Jun,Jun 5 days Active Xarelto 20 mg Orally Once a day 1 tablet with food 24h 30 days Active Hydrochlorothiazide 12.5 MG Orally Once a day 1 tablet 24h 30 days Active BusPIRone HCl 10 mg Orally Once a day 2 tablets 24h Active Pepcid 20 mg Orally 2 times a day 1 tablet at bedtime 12h 30 days Active Protonix 40 MG Orally Once a day 1 tablet 24h Active Nortriptyline HCl 25 MG Orally Once a day at bedtime 2 capsule Active Amlodipine Besylate 10 mg Orally Once a day 1 tablet 24h 30 days Active Viibryd 20 mg Orally Once a day 1 tablet 24h Active ProAir HFA 90 mcg/actuation 2 puffs by Inhalation route 4 times per day PRN needs to keep appointment 9-4-14 Dec, Active Ambien 5 MG take 1 tablet by Oral route at bedtime 1 time per day Jul, 28 days Active Alprazolam 0.5 mg take 1 tablet by Oral route 2 times per day Jan, Active Klor-Con M20 20 MEQ Orally Once a day 1 tablet with food 24h 30 days Active RESULTS Name Result Date Reference Range UA LONG DIP (IN HOUSE) 2016-06-15 Lot # [id number] Exp date 2017 Clarity cloudy Color yellow Odor none GLU negative SIMON negative KET negative SG 1.020 BLO 1+ pH 7.0 Protein trace URO 0.2 NIT negative PATTIE 3+ Lot # Exp date CULTURE, URINE 2016-06-15 Urine Culture, Routine Final report Result 1 Escherichia coli Antimicrobial Susceptibility PROCEDURES Procedure Date Ordered Related Diagnosis Body Site URINALYSIS, AUTO, W/O SCOPE Jun 15, 2016 LAB NOT BILLED BY [facility] Jun 15, 2016 Office Visit, Est Pt., Level 3 Jun 15, 2016 FQ VISIT ESTABLISHED PATIENT Jun 15, 2016 IMMUNIZATIONS No Known Immunizations
--- OUTSIDE RECORDS SUMMARY | 2018-09-17 11:52 | XMS REPORT ---
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.50 Active 5341895 Problem Paroxysmal atrial fibrillation I48.0 Active 024899107 Problem Vitamin D deficiency E55.9 Active 65683743 Problem Hyperlipidemia E78.5 Active 37904307 Problem Chronic frontal sinusitis J32.1 Active 32725716 Problem Hyponatremia E87.1 Active 27404599 Problem Seasonal allergies J30.2 Active 744549499 Problem Mild intermittent asthma without complication J45.20 Active 067809145 Problem Chronic migraine G43.709 Active 68115334 Problem Primary insomnia F51.01 Active 993184392 Problem Hidradenitis L73.2 Active 39583617 Problem Generalized anxiety disorder F41.1 Active 526777195 Problem Idiopathic peripheral neuropathy G60.9 Active 11079330 ALLERGIES No Information SOCIAL HISTORY Never Assessed PLAN OF CARE VITAL SIGNS MEDICATIONS Medication Instructions Dosage Frequency Start Date End Date Duration Status Ambien 5 MG take 1 tablet by Oral route at bedtime 1 time per day Jul, 28 days Active RESULTS No Results PROCEDURES No Known procedures IMMUNIZATIONS No Known Immunizations MEDICAL (GENERAL) HISTORY Type Description Date Medical History hypertension Medical History neuropathy Medical History depression Medical History anxiety Medical History Hyposmolality and/or hyponatremia Surgical History cleaned out left side of sinuses 2013 Surgical History colonscopy 09/03/15 Hospitalization History cellulitis 09/2013 Hospitalization History surgery 2013 Hospitalization History A Fib--[facility] 03/08/2016 Hospitalization History acute chest pain, hypertensive urgency, paroxsysmal htn-[facility] 05/10/16
--- OUTSIDE RECORDS SUMMARY | 2018-09-17 11:52 | XMS REPORT ---
Author Author DESIREE SPENCE eClinicalWorks Address Unknown Phone Unavailable Care Team Providers Care Fabrication Technician Name Role Phone DESIREE SPENCE CP Unavailable [...] level R74.8 Active Problem Hyperlipidemia E78.5 Active Problem Seasonal allergies J30.2 Active Problem Essential hypertension I10 Active Medications Medication Code System Code Instructions Start Date End Date Status [facility] [place] [address]-77 5 MG July 18, 2014 take 1 tablet by Oral route at bedtime 1 time per day Results No Known Results Summary Purpose eClinicalWorks Submission
--- OUTSIDE RECORDS SUMMARY | 2018-09-17 11:53 | XMS REPORT ---
Author Author JORDY [facility] Address [address] [place] [address] Care Team Providers Care Nib Inspector Name Role Phone DESIREE SPENCE Unavailable PROBLEMS Type Condition ICD9-CM Code PLA61-WC Code Onset Dates Condition Status SNOMED Code Problem Vitamin D deficiency E55.9 Active 79121394 Problem Chronic frontal sinusitis J32.1 Active 72783475 Problem Hyponatremia E87.1 Active 72719352 Problem BMI 40.0-44.9, adult Z68.41 Active 009179278 Problem Seasonal allergies J30.2 Active 162043464 Problem Secondary pulmonary arterial hypertension I27.21 Active 55989633 Problem Other chronic gastritis without hemorrhage K29.50 Active 4322561 Problem Paroxysmal atrial fibrillation I48.0 Active 744832295 Problem Fasciculations of muscle R25.3 Active 63304475 Problem Depression, unspecified depression type F32.9 Active 35591537 Problem Mild intermittent asthma without complication J45.20 Active 115712847 Problem Chronic migraine G43.709 Active 30547368 Problem Primary insomnia F51.01 Active 766197071 Problem Generalized anxiety disorder F41.1 Active 980306564 Problem Elevated alkaline phosphatase level R74.8 Active 038515008 Problem Obstructive sleep apnea G47.33 Active 20751329 Problem Hidradenitis L73.2 Active 12569024 Problem Essential hypertension I10 Active 61929409 Problem Idiopathic peripheral neuropathy G60.9 Active 51031298 Problem Hyperlipidemia E78.5 Active 59161035 ALLERGIES No Information ENCOUNTERS Encounter Location Date Diagnosis [facility] [address] [facility] [id number] [address] September, Medicare annual wellness visit, initial Z00.00 ; Mild intermittent asthma without complication J45.20 ; Generalized anxiety disorder F41.1 ; Depression, unspecified depression type F32.9 ; Paroxysmal atrial fibrillation I48.0 ; Obstructive sleep apnea G47.33 ; Hyponatremia E87.1 ; Need for hepatitis C screening test Z11.59 ; Encounter for immunization Z23 ; Secondary pulmonary arterial hypertension I27.21 and BMI 40.0-44.9, adult Z68.41 [facility] [address] [address] 30 Aug, 2017 Essential hypertension I10 [facility] [address] [address] Jun, Dysuria R30.0 ; UTI symptoms R39.9 and Candidiasis of breast B37.89 [facility] [address] [address]- [address] Jun, Hyponatremia E87.1 [facility] [address] [address]- [address] Jun, Hyponatremia E87.1 [place] [address] [address]- [address]90 Jun, Hyponatremia E87.1 [facility] [address] [address]- [address] Jun, [facility] [address] 7[address]89- 9052 May, Hyponatremia E87.1 [place] [address] [address]- [address] May, Hyponatremia E87.1 [facility] [address] [address]- 6667 May, Hyponatremia E87.1 [place] [address] 16711- 9153 May, Hyponatremia E87.1 [place] [address] 25647- 0522 Apr, Hyponatremia E87.1 ; Fasciculations of muscle R25.3 and Hyperlipidemia E78.5 [place] [address] [address] Apr, Cough R05 ; Hyponatremia E87.1 ; Fasciculations of muscle R25.3 ; Primary insomnia F51.01 ; Essential hypertension I10 ; Hyperlipidemia E78.5 ; Screening for breast cancer Z12.31 and BMI 40.0-44.9, adult Z68.41 [facility] [address] [place] [id number] [place] [address] 39392- 8833 Apr, Essential hypertension I10 [facility] [id number] [place] [address] 43930- 1750 Mar, [facility] [id number] [place] [address] 06760- 6163 Mar, [facility] [id number] [place] [address] 15840- 0682 Mar, [facility] [id number] [place] [address] 45041- 3500 Feb, [facility] [id number] [place] [address] 92880- 5142 Jan, [facility] [id number] [place] [address] 73992- 4721 Dec, Essential hypertension I10 [facility] [address] [id number] [address] 0714 Dec, [facility] [id number] [place] [address] 11311- 8333 Dec, Essential hypertension I10 [facility] [address] [address] Nov, [facility] [id number] [place] [address] 88826- 5096 Oct, Essential hypertension I10 [facility] [address] [address] 8176 Oct, Essential hypertension I10 [facility] [id number] [place] [address] 05911- 8872 Oct, [facility] [address] [address] [id number] [place] [address] 41912- 4050 September, [facility] [id number] [place] [address] 72455- 2808 September, Essential hypertension I10 [facility] [address] 84576- 0010 September, [facility] [address] [id number] [place] [address] 94532- 2479 September, Essential hypertension I10 ; Hyperlipidemia E78.5 and Hyponatremia E87.1 [place] [address] [id number] [place] [address] 77422- 0741 September, Mild intermittent asthma without complication J45.20 ; Essential hypertension I10 ; Hyperlipidemia E78.5 ; Hyponatremia E87.1 and Dysuria R30.0 [facility] [address] [id number] [place] [address] 16581- 7696 September, Other chronic gastritis without hemorrhage K29.50 ; Paroxysmal atrial fibrillation I48.0 and Essential hypertension I10 [facility] [address] [place] [id number] [place] [address] 73557- 5069 Aug, [facility] [address] [id number] [place] [address] 47271- 9735 14 Jul, 2016 [facility] [id number] [place] [address] 62914- 9243 14 Jun, 2016 [facility] [address] [place] [address] 44557 -9373 07 Jun, 2016 Dysuria R30.0 and Acute cystitis with hematuria N30.01 [facility] [address] [place] [id number] [place] [address] 15987- 5663 Jun, Essential hypertension I10 [facility] [address] [place] [id number] [place] [address] 97953- 1559 May, Paroxysmal atrial fibrillation I48.0 [facility] [id number] [place] [address] 24921- 6915 May, Other chronic gastritis without hemorrhage K29.50 [facility] [id number] [place] [address] 40505- 2714 May, [facility] [id number] [place] [address] 65818- 1641 May, Hyponatremia E87.1 ; Essential hypertension I10 and Other chronic gastritis without hemorrhage K29.50 [facility] [id number] [place] [address] 88467- 5006 May, Hyponatremia E87.1 [facility] [id number] [place] [address] 61182- 1489 May, Hyponatremia E87.1 [facility] [address] [place] [id number] [place] [address] 190145450 May, [facility] [id number] [place] [address] 27202- 9372 16 Apr, 2016 [facility] [id number] [place] [address] 36243- 4258 Apr, [facility] [id number] [place] [address] 01268- 9660 Mar, Essential hypertension I10 and Candidal intertrigo B37.2 [facility] [id number] [place] [address] 12662- 6116 Mar, Hyponatremia E87.1 [facility] [id number] [place] [address] 25124- 7616 14 Mar, 2016 [facility] [id number] [place] [address] 84131- 8208 Mar, Hyponatremia E87.1 [facility] [id number] [place] [address] 24572- 8495 Mar, Essential hypertension I10 ; Hyponatremia E87.1 ; Slurred speech R47.81 ; Paroxysmal atrial fibrillation I48.0 and Elevated blood sugar R73.9 [facility] [id number] [place] [address] 51981- 8339 Mar, [facility] [id number] [place] [address] 43147- 4185 Mar, [facility] [address] 98014- 7449 Feb, [place] [address] 30295- 6336 Jan, [place] [address] 51693- 4769 Dec, [facility] [address] 48251 -[address]83 Nov, Scratched by cat, initial encounter W55.03XA and Other injury of unspecified body region T14.8 [place] [address] [place] [id number] [place] [address] 75674- 8437 Nov, [place] [address] 34887- 1374 Oct, [place] [address] [place] [id number] [place] [address] 99645- 4197 September, [place] [address] [place] [id number] [place] [address] 13268- 0049 Aug, Elevated alkaline phosphatase level R74.8 [place] [address] [place] [id number] [place] [address] 94300- 1603 Jul, [place] [address] 38402- 7374 Jun, Essential hypertension I10 and Bright red blood per rectum K62.5 [place] [address] [place] [id number] [place] [address] 48797- 7305 Jun, Elevated alkaline phosphatase level R74.8 [facility] [address] [place] [address] 31410- 0000 10 Jun, 2015 [facility] [address] [place] [id number] [place] [address] 80671- 8100 May, Essential hypertension I10 ; Hyperlipidemia E78.5 and Well woman exam (no gynecological exam) Z00.00 [place] [address] [place] [id number] [place] [address] 78245- 7154 May, [place] [address] [place] [id number] [place] [address] 24852- 5429 May, [place] [address] [place] [id number] [place] [address] 10911- 6158 Mar, [place] [address] [place] [id number] [place] [address] 68438- 2202 Mar, [place] [address] [place] [id number] [place] [address] 79746- 9731 Mar, [place] [address] [place] [id number] [place] [address] 70452- 2133 Feb, Acute recurrent maxillary sinusitis J01.01 ; Asthma, unspecified, unspecified status 493.90 ; Seasonal allergies J30.2 and Cat allergies J30.81 [place] [address] [place] [address] 47879- 1762 Feb, Upper respiratory tract infection, unspecified upper respiratory infection J06.9 [place] [address] [place] [address] 61967- 5809 Jan, [place] [address] [place] [id number] [place] [address] 83872- 3493 02 Jan, 2015 Dysphagia 787.20 and GERD (gastroesophageal reflux disease) 530.81 [place] [address] [place] [id number] [place] [address] 64353- 5599 Jan, Breast lesion 611.9 [place] [address] [place] [address]- 6989 Dec, Breast lesion 611.9 [facility] [id number] [place] [address] 01209- 5873 Dec, Breast lesion 611.9 [facility] [id number] [place] [address] 84833- 6525 Nov, Fatigue 780.79 and Hyperlipidemia 272.4 [facility] [address] [address] [id number] [place] [address] 35704- 8542 Nov, Hypertension 401.9 ; Hyperlipidemia 272.4 ; Chronic frontal sinusitis 473.1 and Fatigue 780.79 [facility] [address] [address] [id number] [place] [address] 09419- 2354 Nov, [facility] [address] [address] [id number] [place] [address] 76152- 1659 Oct, [facility] [address] [address] [id number] [place] [address] 24817- 4605 Oct, [facility] [id number] [place] [address] 92758- 4431 September, [facility] [address] [id number] [place] [address] 78234- 6276 September, [facility] [address] [place] [address] 02225- 1886 September, [facility] [address] [place] [address] 20061- 4966 September, [facility] [address] [address]- 0514 Aug, [facility] [address] [id number] [place] [address] 77076- 9286 Aug, [facility] [address] [address]- 0606 Aug, [facility] [address] [place] [address] [id number] [place] [address] 85704- 0656 20 Jul, 2014 [facility] [place] [facility] [address] [id number] [place] [address]- 8060 20 Jul, 2014 [facility] [place] [facility] [address] [id number] [place] [address]- 9088 19 Jul, 2014 [facility] [place] [facility] [address] [id number] [place] [address]- 0002 19 Jul, 2014 [facility] [place] [facility] [address] [id number] [place] [address]- 8927 18 Jul, 2014 [facility] [place] [facility] [address] [id number] [place] [address]- 8024 17 Jul, 2014 [facility] [place] [facility] [address] [id number] [place] [address]- 0689 17 Jul, 2014 [facility] [place] [facility] [address] [id number] [place] [address]- 0734 16 Jul, 2014 [facility] [place] [facility] [address] [id number] [place] [address]- 1895 16 Jul, 2014 [facility] [place] [facility] [address] [id number] [place] [address]- 3406 Jul, [facility] [place] [facility] [address] [id number] [place] [address]- 2597 Jul, [facility] [place] [facility] [address] [id number] [place] [address]- 1190 Jul, [facility] [place] [facility] [address] [id number] [place] [address]- 6250 Jul, [facility] [place] [facility] [address] [id number] [place] [address]- 0693 Jul, [facility] [place] [facility] [address] [id number] [place] [address]- 3481 Jul, [facility] [place] [facility] [address] [id number] [place] [address]- 0425 Jun, [facility] [place] [facility] [address] [id number] [place] [address]- 9502 Jun, 2014 [facility] [place] [facility] [address] [id number] [place] [address]- 9742 Jun, [facility] [place] [facility] [address] [id number] [place] [address]- 2546 Jun, [facility] [place] [facility] [address] [id number] [place] [address]- 9167 May, [facility] [place] [facility] [address] [id number] [place] [address]- 1086 May, [facility] [place] [facility] [address] [id number] [place] [address]- 1404 May, [facility] [place] [facility] [address] [id number] [place] [address]- 7618 May, [facility] [place] [facility] [address] [id number] [place] [address]- 6762 Apr, [facility] [place] [facility] [address] [id number] [place] [address]- 6949 Apr, [facility] [place] [facility] [address] [id number] [place] [address]- 5626 Apr, [facility] [place] [facility] [address] [id number] [place] 6914 Apr, [facility] [place] [facility] [address] [id number] [place] [address]- 4167 Apr, [facility] [place] [facility] [address] [id number] [place] [address]- 8701 Apr, [facility] [place] [facility] [address] [id number] [place] [address]- 7536 Mar, [facility] [place] [facility] [address] [id number] [place] [address]- 6566 Mar, [facility] [place] [facility] [address] [id number] [place] [address]- 6388 Mar, [facility] [place] [facility] [address] [id number] [place] [address]- 7450 Mar, [facility] [place] [facility] [address] [id number] [place] [address]- 9003 Mar, [facility] [place] [facility] [address] [id number] [place] [address]- 8268 Mar, [facility] [place] [facility] [address] [id number] [place] [address]- 9171 Mar, [facility] [place] [facility] [address] [id number] [place] [address]- 6875 Mar, [facility] [place] [facility] [address] [id number] [place] [address]- 3020 Mar, [facility] [place] [facility] [address] [id number] [place] [address]- 9313 Mar, [facility] [place] [facility] [address] [id number] [place] [address]- 6404 Mar, [facility] [place] [facility] [address] [id number] [place] [address]- 2238 Mar, [facility] [place] [facility] [address] [id number] [place] [address]- 0399 Mar, [facility] [place] [facility] [address] [id number], [place] [address]- 5412 Mar, [facility] [place] [facility] [address] [id number], [place] [address]- 6804 Mar, [facility] [place] [facility] [address] [id number] [place] [address]- 5051 Mar, [facility] [place] [facility] [address] [id number], [place] [address]- 4925 Mar, [facility] [place] [facility] [address] [id number] [place] [address]- 5699 Feb, [facility] [place] [facility] [address] [id number] [place] [address]- 4501 30 Feb, 2013 [facility] [place] [facility] [address] [id number] [place] [address]- 0496 30 Feb, 2013 [facility] [place] [facility] [address] [id number] [place] [address]- 0789 30 Feb, 2013 [facility] [place] [facility] [address] [id number] [place] [address]- 5022 29 Feb, 2013 [facility] [place] [facility] [address] [id number] [place] [address]- 7602 29 Feb, 2013 [facility] [place] [facility] [address] [id number] [place] [address]- 0924 Feb, [facility] [place] [facility] [address] [id number] [place] [address]- 9978 Feb, [facility] [place] [facility] [address] [id number] [place] [address]- 2311 Feb, [facility] [place] [facility] [address] [id number] [place] [address]- 3490 Feb, [facility] [place] [facility] [address] [id number] [place] [address]- 9367 16 Feb, 2014 [facility] [place] [facility] [address] [id number] [place] [address]- 9045 16 Feb, 2014 [facility] [place] [facility] [address] [id number] [place] [address]- 7413 15 Feb, 2014 [facility] [place] [facility] [address] [id number], [place] [address]- 1475 15 Feb, 2014 [facility] [place] [facility] [address] [id number] [place] [address]- 9362 Feb, [facility] [place] [facility] [address] [id number] [place] [address]- 3866 08 Feb, 2014 [facility] [place] [facility] [address] [id number] [place] [address]- 3913 Feb, [facility] [place] [facility] [address] [id number] [place] [address]- 6323 Feb, [facility] [place] [facility] [address] [id number] [place] [address]- 5761 Feb, [facility] [place] [facility] [address] [id number] [place] [address]- 5259 30 Jan, 2014 [facility] [place] [facility] [address] [id number] [place] [address]- 1938 30 Jan, 2013 [facility] [place] [facility] [address] [id number] [place] [address]- 4320 29 Jan, 2014 [facility] [place] [facility] [address] [id number] [place] [address]- 7159 29 Jan, 2014 [facility] [place] [facility] [address] [id number] [place] [address]- 4893 24 Jan, 2014 [facility] [place] [facility] [address] [id number] [place] [address]- 6472 24 Jan, 2014 [facility] [place] [facility] [address] [id number] [place] [address]- 9959 Jan, [facility] [place] [facility] [address] [id number] [place] [address]- 9092 08 Jan, 2014 [facility] [place] [facility] [address] [id number] [place] [address]- 8660 Jan, [facility] [place] [facility] [address] [id number] [place] [address]- 8387 Dec, [facility] [place] [facility] [address] [id number] [place] [address]- 6729 Dec, [facility] [place] [facility] [address] [id number] [place] [address]- 5678 Dec, [facility] [place] [facility] [address] [id number] [place] [address]- 8143 Dec, [facility] [place] [facility] [address] [id number] [place] [address]- 3319 Dec, [facility] [place] [facility] [address] [id number] [place] [address]- 6437 Dec, [facility] [place] [facility] [address] [id number] [place] [address]- 1244 Dec, [facility] [place] [facility] [address] [id number] [place] [address]- 0583 Dec, [facility] [place] [facility] [address] [id number] [place] [address] Dec, [facility] [place] [facility] [address] [id number] [place] [address] Nov, [facility] [place] [facility] [address] [id number] [place] [address] Nov, [facility] [place] [facility] [address] [id number] [place] [address] Nov, [facility] [place] [facility] [address] [id number] [place] [address] Nov, [facility] [place] [facility] [address] [id number] [place] [address] Nov, [facility] [place] [facility] [address] [id number] [place] [address] Nov, [facility] [place] [facility] [address] [id number] [place] [address] Oct, [facility] [place] [facility] [address] [id number] [place] [address] Oct, [facility] [place] [facility] [address] [id number] [place] [address] Oct, [facility] [place] [facility] [address] [id number] [place] [address] Oct, [facility] [place] [facility] [address] [id number] [place] [address] Oct, [facility] [place] [facility] [address] [id number] [place] [address] Oct, [facility] [place] [facility] [address] [id number] [place] [address] Oct, [facility] [place] [facility] [address] [id number] [place] [address] Oct, [facility] [place] [facility] [address] [id number] [place] [address] Oct, [facility] [place] [facility] [address] [id number] [place] [address] Oct, [facility] [place] [facility] [address] [id number] [place] [address] Oct, [facility] [place] [facility] [address] [id number] [place] [address] Oct, [facility] [place] [facility] [address] [id number] [place] [address] Oct, [facility] [place] [facility] [address] [id number] [place] [address] Oct, [facility] [place] [facility] [address] [id number] [place] [address] September, [facility] [place] [facility] [address] [id number] [place] [address]- [address] September, [facility] [place] [facility] [address] [id number] [place] [address] September, [facility] [place] [facility] [address] [id number] [place] [address] September, [facility] [place] [facility] [address] [id number] [place] [address]- [address] September, [facility] [place] [facility] [address] [id number] [place] [address] September, [facility] [place] [facility] [address] [id number] [place] [address] September, [facility] [address] [id number] [place] [address] September, [facility] [place] [facility] [address] [id number] [place] [address] September, [facility] [place] [facility] [address] [id number] [place] [address] September, [facility] [place] [facility] [address] [id number] [place] [address] September, [facility] [place] [facility] [address] [id number] [place] [address] September, [facility] [place] [facility] [address] [id number] [place] [address] September, [facility] [place] [facility] [address] [id number] [place] [address] September, [facility] [place] [facility] [address] [id number] [place] [address]- [address] September, [facility] [place] [facility] [address] [id number] [place] [address] September, [facility] [place] [facility] [address] [id number] [place] [address] September, [facility] [place] [facility] [address] [id number] [place] [address] September, [facility] [place] [facility] [address] [id number] [place] [address] September, [facility] [place] [facility] [address] [id number] [place] [address] Aug, [facility] [place] [facility] [address] [id number] [place] [address] Aug, [facility] [place] [facility] [address] [id number] [place] [address] Jul, [facility] [place] [facility] [address] [id number] [place] [address] 8[address] 31 Jul, 2013 [facility] [place] [facility] [address] [id number] [place] [address] 4285 28 Jul, 2013 [facility] [place] [facility] [address] [id number] [place] [address] 28 Jul, 2013 [facility] [place] [facility] [address] [id number] [place] [address]- 1392 27 Jul, 2013 [facility] [place] [facility] [address] [id number] [place] [address] 4118 27 Jul, 2013 [facility] [place] [facility] [address] [id number] [place] [address] 6974 Jul, [facility] [place] [facility] [address] [id number] [place] [address] Jul, [facility] [place] [facility] [address] [id number] [place] [address] 4[address] Jul, [facility] [place] [facility] [address] [id number] [place] [address] 2917 25 Jul, 2013 [facility] [place] [facility] [address] [id number] [place] [address]- 7598 14 Jul, 2013 [facility] [place] [facility] [address] [id number] [place] [address]- 8879 14 Jul, 2013 [facility] [place] [facility] [address] [id number] [place] [address]- 6708 07 Jul, 2013 [facility] [place] [facility] [address] [id number] [place] [address] 3021 07 Jul, 2013 [facility] [place] [facility] [address] [id number] [place] [address]- 0010 10 Jun, 2013 [facility] [place] [facility] [address] [id number] [place] [address]- 0900 10 Jun, 2013 [facility] [place] [facility] [address] [id number] [place] [address]- 3149 10 Jun, 2013 [facility] [place] [facility] [address] [id number] [place] [address] 5984 Jun, [facility] [place] [facility] [address] [id number] [place] [address] 3169 May, [facility] [place] [facility] [address] [id number] [place] [address]- 5338 May, [facility] [place] [facility] [address] [id number] [place] [address] 6503 May, [facility] [place] [facility] [address] [id number] [place] [address] 9612 May, [facility] [place] [facility] [address] [id number] [place] [address]- 9928 May, [facility] [place] [facility] [address] [id number] [place] [address]- 4073 Mar, [facility] [place] [facility] [address] [id number] [place] [address]- 4279 Mar, [facility] [place] [facility] [address] [id number] [place] [address]- 5258 Mar, [facility] [place] [facility] [address] [id number] [place] [address]- 7051 Mar, [facility] [place] [facility] [address] [id number] [place] [address]- 4380 Mar, [facility] [place] [facility] [address] [id number] [place] [address]- 6189 Mar, [facility] [place] [facility] [address] [id number] [place] [address]- 2566 Feb, [facility] [place] [facility] [address] [id number] [place] [address]- 8611 Feb, [facility] [place] [facility] [address] [id number] [place] [address]- 5857 Feb, [facility] [place] [facility] [address] [id number] [place] [address] 4916 Feb, [facility] [place] [facility] [address] [id number] [place] [address]- 0862 Feb, [facility] [place] [facility] [address] [id number] [place] [address]- 9147 Feb, [facility] [place] [facility] [address] [id number] [place] [address]- 9228 Feb, [facility] [place] [facility] [address] [id number] [place] [address] 1870 Feb, [facility] [place] [facility] [address] [id number] [place] [address]- 3875 Feb, [facility] [place] [facility] [address] [id number] [place] [address]- 2917 Feb, [facility] [place] [facility] [address] [id number] [place] [address]- 5285 Feb, [facility] [place] [facility] [address] [id number] [place] [address]- 4314 Feb, [facility] [place] [facility] [address] [id number] [place] [address]- 4486 Jan, [facility] [place] [facility] [address] [id number] [place] [address]- 5178 Jan, [facility] [place] [facility] [address] [id number] [place] [address]- 6100 Dec, [facility] [place] [facility] [address] [id number] [address] 2548 Dec, [facility] [place] [facility] [address] [id number] [place] [address]- 3570 Nov, [facility] [place] [facility] [address] [id number] [place] [address] 2543 Nov, [facility] [place] [facility] [address] [id number] [place] [address]- 2543 Nov, [facility] [place] [facility] [address] [id number] [place] [address]- 2546 Nov, [facility] [address] [id number] [place] [address] 6374 Nov, [facility] [address] [id number] [place] [address] 0206 Oct, [facility] [address] [id number] [place] [address]- 9366 September, [facility] [address] [id number] [place] [address]- 0938 Aug, [facility] [address] [id number] [place] [address]- 2596 Jul, [facility] [address] [id number] [place] [address]- 7376 Jul, [facility] [address] [id number] [place] [address] 8336 Jul, [facility] [address] [id number] [place] [address]- 7407 Jun, [facility] [address] [id number] [place] [address]- 2371 Jun, [facility] [address] [id number] [place] [address] 9943 Jun, [facility] [address] [id number] [place] [address]- 2546 Jun, [facility] [address] [id number] [place] [address]- 2546 Jun, [facility] [place] [facility] [address] [id number] [place] [address]- 2676 May, [facility] [place] [facility] [address] [id number] [place] [address]- 2546 May, [facility] [address] [id number] [place] [address] 2810 Apr, [facility] [place] [facility] [address] [id number] [place] [address]- 5072 Apr, [facility] [place] [facility] [address] [id number] [place] [address]- 1119 Mar, [facility] [place] [facility] [address] [facility] [id number] [place] [address]- 7141 Mar, [facility] [place] [facility] [address] [id number] [place] [address]- 6369 Mar, [facility] [place] [facility] [address] [id number] [place] [address]- 9742 Mar, [facility] [place] [facility] [address] [id number] [place] [address]- 7239 Mar, [facility] [place] [facility] [address] [facility] [id number] [place] [address]- 5196 Mar, [facility] [place] [facility] [address] [id number], [place] [address]- 4685 Mar, [facility] [place] [facility] [address] [id number], [place] [address]- 6808 Mar, [facility] [place] [facility] [address] [facility] [id number], [place] [address]- 4754 Mar, [facility] [place] [facility] [address] [facility] [id number], [place] [address]- 3615 Mar, [facility] [place] [facility] [address] [id number], [place] [address]- 3344 Feb, [facility] [place] [facility] [address] [id number], [place] [address]- 7677 Feb, [facility] [place] [facility] [address] [facility] [id number], [place] [address]- 1110 Feb, [facility] [place] [facility] [address] [facility] [id number], [place] [address]- 1689 Feb, [facility] [place] [facility] [address] [id number] [place] [address]- 7464 Feb, [facility] [place] [facility] [address] [id number] [place] [address]- 5937 Feb, [facility] [place] [facility] [address] [id number] [place] [address]- 8506 Jan, [facility] [place] [facility] [address] [id number] [place] [address]- 4252 Jan, [facility] [place] [facility] [address] [id number] [place] [address]- 9501 Dec, [facility] [place] [facility] [address] [id number] [place] [address]- 4494 Dec, [facility] [place] [facility] [address] [id number] [place] [address]- 5220 Dec, [facility] [address] [id number] [place] [address]- 8604 Nov, [facility] [place] [facility] [address] [id number] [place] [address]- 8435 September, [facility] [place] [facility] [address] [id number] [place] [address]- 1023 September, [facility] [place] [facility] [address] [id number] [place] [address]- 7775 September, [facility] [place] [facility] [address] [id number] [place] [address]- 1296 September, [facility] [place] [facility] [address] [id number] [place] [address]- 4055 Aug, [facility] [place] [facility] [address] [id number] [place] [address]- 1874 Aug, [facility] [place] [facility] [address] [id number] [place] [address]- 1549 Aug, [facility] [place] [facility] [address] [id number] [place] [address]- 6017 Aug, [facility] [place] [facility] [address] [id number] [place] [address]- 1264 05 Aug, 2011 [facility] [place] [facility] [address] [id number] [place] [address]- 8916 Jul, [facility] [place] [facility] [address] [id number] [place] [address]- 6764 05 Jul, 2011 [facility] [place] [facility] [address] [id number] [place] [address]- 3797 Jul, [facility] [address] [id number] [place] [address]- 0692 29 Jun, 2011 [facility] [place] [facility] [address] [id number] [place] [address]- 8496 17 Jun, 2011 [facility] [place] [facility] [address] [id number] [place] [address]- 5910 13 Jun, 2011 [facility] [place] [facility] [address] [id number] [place] [address]- 6543 Jun, [facility] [place] [facility] [address] [id number] [place] [address]- 6021 Jun, [facility] [place] [facility] [address] [id number] [place] [address]- 8431 Jun, [facility] [place] [facility] [address] [id number] [place] [address]- 8500 Jun, [facility] [place] [facility] [address] [id number] [place] [address]- 6513 May, [facility] [place] [facility] [address] [id number] [place] [address]- 0364 May, [facility] [place] [facility] [address] [id number] [place] [address]- 0952 May, [facility] [place] [facility] [address] [id number] [place] [address]- 7912 May, [facility] [place] [facility] [address] [id number] [place] [address]- 8233 27 Apr, 2011 [facility] [address] [id number] [place] [address]- 1286 13 Apr, 2011 [facility] [place] [facility] [address] [id number] [place] [address]- 8606 04 Mar, 2011 [facility] [address] [id number] [place] [address]- 6886 Mar, [facility] [place] [facility] [address] [id number] [place] [address]- 0566 Mar, [facility] [address] [id number] [place] [address]- 7686 Nov, [facility] [place] [facility] [address] [id number] [place] [address]- 7640 13 May, 2010 [facility] [address] [id number] [place] [address]- 5326 23 Apr, 2010 [facility] [address] [id number] [place] [address]- 4618 Apr, [facility] [address] [id number] [place] [address]- 5886 Apr, [facility] [address] [id number] [place] [address]- 9532 Apr, [facility] [address] [id number] [place] [address]- 6066 Apr, [facility] [place] [facility] [address] [id number] [place] [address] 2545 18 Mar, 2010 [facility] [place] [facility] [address] [id number] [place] [address]- 5384 08 Mar, 2010 [facility] [place] [facility] [address] [id number] [place] [address]- 8856 20 Feb, 2010 [facility] [place] [facility] [address] [id number] [place] [address]- 1280 14 Aug, 2009 [facility] [address] [id number], [place] [address]- 2546 Jul, [facility] [address]00565[address], [place] [address]- 2546 Jun, [facility] [address]00565[address], [place] [address]- 2546 Apr, [facility] [address]005[address], [place] [address]- 2546 Apr, [facility] [address], [place] [address]- 2546 Mar, [facility] [address], [place] [address]- 2546 Mar, [facility] [address], [place] [address]- 2546 Feb, [facility] [address]65[address], [place] [address]- 2546 Dec, [facility] [address] [id number], [place] [address]- 2546 Oct, IMMUNIZATIONS No Known Immunizations SOCIAL HISTORY Never Assessed REASON FOR VISIT Controlled Medication Refill PLAN OF CARE VITAL SIGNS MEDICATIONS Medication [...]
--- OUTSIDE RECORDS SUMMARY | 2018-09-17 11:54 | XMS REPORT ---
Author Author JORDY DESIREE [facility] Address [address] [place] [address] Care Team Providers Care Director Global Name Role Phone DESIREE SPENCE Unavailable PROBLEMS Type Condition ICD9-CM Code [id number] Code Onset Dates Condition Status SNOMED Code Problem Vitamin D deficiency E55.9 Active 74647379 Problem Chronic frontal sinusitis J32.1 Active 09408029 Problem Hyponatremia E87.1 Active 59200349 Problem BMI 40.0-44.9, adult Z68.41 Active 806069227 Problem Seasonal allergies J30.2 Active 018288431 Problem Secondary pulmonary arterial hypertension I27.21 Active 64763671 Problem Other chronic gastritis without hemorrhage K29.50 Active 4942000 Problem Paroxysmal atrial fibrillation I48.0 Active 627028154 Problem Fasciculations of muscle R25.3 Active 80574294 Problem Depression, unspecified depression type F32.9 Active 56694461 Problem Mild intermittent asthma without complication J45.20 Active 722552838 Problem Chronic migraine G43.709 Active 92874293 Problem Primary insomnia F51.01 Active 218560079 Problem Generalized anxiety disorder F41.1 Active 819372406 Problem Elevated alkaline phosphatase level R74.8 Active 993246664 Problem Obstructive sleep apnea G47.33 Active 59468511 Problem Hidradenitis L73.2 Active 96508111 Problem Essential hypertension I10 Active 85971495 Problem Idiopathic peripheral neuropathy G60.9 Active 00607067 Problem Hyperlipidemia E78.5 Active 94087983 ALLERGIES No Information ENCOUNTERS Encounter Location Date Diagnosis [facility] [address], [place] [address] Nov, [facility] [id number] [address] Oct, [facility] [address], [place] [address] September, Medicare annual wellness visit, initial Z00.00 ; Mild intermittent asthma without complication J45.20 ; Generalized anxiety disorder F41.1 ; Depression, unspecified depression type F32.9 ; Paroxysmal atrial fibrillation I48.0 ; Obstructive sleep apnea G47.33 ; Hyponatremia E87.1 ; Need for hepatitis C screening test Z11.59 ; Encounter for immunization Z23 ; Secondary pulmonary arterial hypertension I27.21 and BMI 40.0-44.9, adult Z68.41 [facility] [address] [address] 30 Aug, 2017 Essential hypertension I10 [facility] [address] [address] Jun, Dysuria R30.0 ; UTI symptoms R39.9 and Candidiasis of breast B37.89 [place] [address] [address]- [address] Jun, Hyponatremia E87.1 [place] [address] 8[address]86- 3512 Jun, Hyponatremia E87.1 [place] [address] 8[address]- 0011 Jun, Hyponatremia E87.1 [place] [address] 97174- 9689 Jun, [place] [address] [address]- 8980 May, Hyponatremia E87.1 [place] [address] 8[address]40- 2201 May, Hyponatremia E87.1 [place] [address] 75221- 3949 May, Hyponatremia E87.1 [place] [address] [address]40- 4141 May, Hyponatremia E87.1 [facility] [address], [place] [address] Apr, Hyponatremia E87.1 ; Fasciculations of muscle R25.3 and Hyperlipidemia E78.5 [facility] [id number] [address] Apr, Cough R05 ; Hyponatremia E87.1 ; Fasciculations of muscle R25.3 ; Primary insomnia F51.01 ; Essential hypertension I10 ; Hyperlipidemia E78.5 ; Screening for breast cancer Z12.31 and BMI 40.0-44.9, adult Z68.41 [facility] [id number] [place] [address] 75091- 6671 Apr, Essential hypertension I10 [facility] [id number] [place] [address] 19776- 0157 Mar, [facility] [id number] [place] [address] 73247- 5807 Mar, [facility] [id number] [place] [address] 79198- 3873 Mar, [facility] [id number] [place] [address] 88551- 3936 Feb, [facility] [id number] [address] Jan, [facility] [id number] [place] [address] 73833- 5278 Dec, Essential hypertension I10 [facility] [address], [place] [address] Dec, [facility] [id number] [place] [address] 46565- 4307 Dec, Essential hypertension I10 [facility] [address], [place] [address] Nov, [facility] [id number] [address] 8947 Oct, Essential hypertension I10 [facility] [id number] [place] [address] 01568- 0004 Oct, Essential hypertension I10 [facility] [id number] [place] [address] 19723- 8891 Oct, [facility] [id number] [place] [address] 76554- 5640 September, [facility] [id number] [place] [address] 48436- 2575 September, Essential hypertension I10 [facility] [id number] [place] [address] 28155- 0545 September, [facility] [id number] [place] [address] 09119- 2530 September, Essential hypertension I10 ; Hyperlipidemia E78.5 and Hyponatremia E87.1 [facility] [id number] [place] [address] 40438- 5267 September, Mild intermittent asthma without complication J45.20 ; Essential hypertension I10 ; Hyperlipidemia E78.5 ; Hyponatremia E87.1 and Dysuria R30.0 [facility] [address] [place] [address] 35574- 9838 September, Other chronic gastritis without hemorrhage K29.50 ; Paroxysmal atrial fibrillation I48.0 and Essential hypertension I10 [facility] [address] [place] [address] 98461- 6317 Aug, [facility] [id number] [place] [address] 98213- 3094 Jul, [facility] [id number] [place] [address] 64995- 6306 14 Jun, 2016 [facility] [address], [place] [address] 07 Jun, 2016 Dysuria R30.0 and Acute cystitis with hematuria N30.01 [facility] [id number] [place] [address] 27927- 8847 Jun, Essential hypertension I10 [facility] [id number] [place] [address] 88790- 1129 May, Paroxysmal atrial fibrillation I48.0 [facility] [id number] [place] [address] 22150- 4707 May, Other chronic gastritis without hemorrhage K29.50 [facility] [id number] [place] [address] 69128- 6930 May, [facility] [address] 93112- 8298 May, Hyponatremia E87.1 ; Essential hypertension I10 and Other chronic gastritis without hemorrhage K29.50 [facility] [id number] [place] [address] 79814- 1222 May, Hyponatremia E87.1 [facility] [id number] [place] [address] 24398- 5888 May, Hyponatremia E87.1 [facility] [address] [id number] May, [facility] [id number] [place] [address] 83930- 5131 Apr, [facility] [id number] [place] [address] 91979- 8913 Apr, [facility] [id number] [place] [address] 39437- 2084 29 Mar, 2016 Essential hypertension I10 and Candidal intertrigo B37.2 [facility] [id number] [place] [address] 76730- 4824 Mar, Hyponatremia E87.1 [facility] [id number] [place] [address] 38685- 1166 14 Mar, 2016 [facility] [id number] [place] [address] 61234- 4280 Mar, Hyponatremia E87.1 [facility] [address] 27483- 9130 Mar, Essential hypertension I10 ; Hyponatremia E87.1 ; Slurred speech R47.81 ; Paroxysmal atrial fibrillation I48.0 and Elevated blood sugar R73.9 [facility] [address] 81309- 3822 Mar, [facility] [address] 46249- 8173 Mar, [facility] [address] 42597- 0043 Feb, [facility] [address] 41835- 0264 Jan, [facility] [address] 78342- 9136 Dec, [facility] [id number] [place] [address] 66859 -6137 Nov, Scratched by cat, initial encounter W55.03XA and Other injury of unspecified body region T14.8 [facility] [id number] [place] [address] 18696- 3752 Nov, [facility] [id number] [place] [address] 31334- 5346 Oct, [facility] [id number] [place] [address] 05193- 2269 September, [facility] [address] 8[address]80- 1978 Aug, Elevated alkaline phosphatase level R74.8 [facility] [id number] [place] [address] 96544- 7716 Jul, [facility] [address] [place] [address]- 4896 26 Jun, 2015 Essential hypertension I10 and Bright red blood per rectum K62.5 [place] [address] 82257- 1524 11 Jun, 2015 Elevated alkaline phosphatase level R74.8 [place] [address] 54709- 7936 Jun, [place] [address] 16967- 0784 May, Essential hypertension I10 ; Hyperlipidemia E78.5 and Well woman exam (no gynecological exam) Z00.00 [place] [address] 37685- 9918 May, [place] [address] 66157- 1126 May, [place] [address] 50676- 0887 Mar, [place] [id number] [place] [address] 01293- 4444 Mar, [place] [address] 75521- 0537 Mar, [place] [id number] [place] [address] 53288- 0221 Feb, Acute recurrent maxillary sinusitis J01.01 ; Asthma, unspecified, unspecified status 493.90 ; Seasonal allergies J30.2 and Cat allergies J30.81 [place] [id number] [place] [address] 72553- 9060 13 Feb, 2015 Upper respiratory tract infection, unspecified upper respiratory infection J06.9 [place] [id number] [place] [address] 01781- 8901 Jan, [place] [id number] [place] [address] 90123- 8648 Jan, Dysphagia 787.20 and GERD (gastroesophageal reflux disease) 530.81 [facility] [id number] [place] [address] 21211- 4919 Jan, Breast lesion 611.9 [facility] [id number] [place] [address] 88676- 5709 Dec, Breast lesion 611.9 [facility] [id number] [place] [address] 04036- 0503 Dec, Breast lesion 611.9 [facility] [id number] [place] [address] 66141- 6678 Nov, Fatigue 780.79 and Hyperlipidemia 272.4 [facility] [id number] [place] [address] 458004- 3855 Nov, Hypertension 401.9 ; Hyperlipidemia 272.4 ; Chronic frontal sinusitis 473.1 and Fatigue 780.79 [facility] [id number] [place] [address] 48510- 3229 Nov, [facility] [id number] [place] [address] 51549- 4487 Oct, [facility] [id number] [place] [address] 14781- 2928 Oct, [facility] [id number] [place] [address] 02958- 8908 September, [facility] [id number] [place] [address] 01949- 9354 September, [facility] [id number] [place] [address] 35881- 9106 September, [facility] [id number] [place] [address] 24637- 5386 September, [facility] [id number] [place] [address] 505444- 5579 Aug, [facility] [id number] [place] [address] 65765- 5616 14 Aug, 2014 [facility] [place] [facility] [address] [id number] [place] [address]- 8653 13 Aug, 2014 [facility] [place] [facility] [address] [id number] [place] [address]- 3670 20 Jul, 2014 [facility] [place] [facility] [address] [id number] [place] [address]- 6853 20 Jul, 2014 [facility] [place] [facility] [address] [id number] [place] [address]- 3649 19 Jul, 2014 [facility] [place] [facility] [address] [id number] [place] [address]- 8908 19 Jul, 2014 [facility] [place] [facility] [address] [id number] [place] [address]- 7722 18 Jul, 2014 [facility] [place] [facility] [address] [id number] [place] [address]- 7862 17 Jul, 2014 [facility] [place] [facility] [address] [id number] [place] [address]- 7676 17 Jul, 2014 [facility] [place] [facility] [address] [id number] [place] [address]- 7183 16 Jul, 2014 [facility] [place] [facility] [address] [id number] [place] [address]- 2077 16 Jul, 2014 [facility] [place] [facility] [address] [id number] [place] [address]- 1669 12 Jul, 2014 [facility] [place] [facility] [address] [id number] [place] [address]- 2809 12 Jul, 2014 [facility] [place] [facility] [address] [id number] [place] [address]- 5077 09 Jul, 2014 [facility] [place] [facility] [address] [id number] [place] [address]- 8125 09 Jul, 2014 [facility] [place] [facility] [address] [id number] [place] [address]- 0219 04 Jul, 2014 [facility] [place] [facility] [address] [id number] [place] [address] 2543 Jul, [facility] [address] [id number] [place] [address]- 0222 Jun, 2014 [facility] [place] [facility] [address] [id number] [place] [address]- 2546 Jun, 2014 [facility] [place] [facility] [address] [id number] [place] [address] 2546 Jun, [facility] [place] [facility] [address] [id number] [place] [address]- 2546 Jun, [facility] [place] [facility] [address] [id number] [place] [address]- 8003 May, [facility] [place] [facility] [address] [id number] [place] [address]- 3904 May, [facility] [place] [facility] [address] [facility] [id number] [place] [address]- 1450 May, [facility] [place] [facility] [address] [id number] [place] [address]- 5388 May, [facility] [place] [facility] [address] [facility] [id number] [place]- 8579 Apr, [facility] [place] [facility] [address] [facility] [id number] [place] [address]- 2359 Apr, [facility] [place] [facility] [address] [id number] [place] [address]- 6927 Apr, [facility] [place] [facility] [address] [id number] [place] [address]- 0144 Apr, [facility] [place] [facility] [address] [id number] [place] [address]- 1906 Apr, [facility] [place] [facility] [address] [facility] [id number] [place] [address]- 2546 Apr, [facility] [place] [facility] [address] [id number] [place] [address]- 0168 Mar, [facility] [place] [facility] [address] [id number] [place] [address]- 9903 Mar, [facility] [place] [facility] [address] [id number] [place] [address]- 2944 Mar, [facility] [place] [facility] [address] [id number] [place] [address]- 0486 Mar, [facility] [place] [facility] [address] [id number] [place] [address]- 1152 Mar, [facility] [place] [facility] [address] [id number] [place] [address]- 0004 Mar, [facility] [place] [facility] [address] [id number] [place] [address]- 6075 Mar, [facility] [place] [facility] [address] [id number] [place] [address]- 3930 Mar, [facility] [place] [facility] [address] [id number] [place] [address]- 5643 Mar, [facility] [place] [facility] [address] [id number] [place] [address]- 5666 Mar, [facility] [place] [facility] [address] [id number] [place] [address]- 2193 Mar, [facility] [place] [facility] [address] [id number] [address]- 4685 Mar, [facility] [place] [facility] [address] [id number] [address]- 0412 Mar, [facility] [place] [facility] [address] [id number] [place] [address]- 4448 Mar, [facility] [place] [facility] [address] [id number], [place] [address]- 8445 Mar, [facility] [place] [facility] [address] [id number] [place] [address]- 9061 Mar, [facility] [place] [facility] [address] [id number] [place] [address]- 6058 05 Mar, 2014 [facility] [place] [facility] [address] [id number] [place] [address]- 8769 30 Feb, 2013 [facility] [place] [facility] [address] [id number] [place] [address]- 4884 30 Feb, 2013 [facility] [place] [facility] [address] [id number] [place] [address]- 2958 30 Feb, 2013 [facility] [place] [facility] [address] [id number] [place] [address]- 9554 30 Feb, 2014 [facility] [place] [facility] [address] [id number] [place] [address]- 6267 29 Feb, 2014 [facility] [place] [facility] [address] [id number] [place] [address]- 7707 29 Feb, 2014 [facility] [place] [facility] [address] [id number] [place] [address]- 7295 Feb, [facility] [place] [facility] [address] [id number] [place] [address]- 1001 28 Feb, 2014 [facility] [place] [facility] [address] [id number] [place] [address]- 8120 28 Feb, 2014 [facility] [place] [facility] [address] [id number] [place] [address]- 1811 28 Feb, 2014 [facility] [place] [facility] [address] [id number] [place] [address]- 4738 16 Feb, 2014 [facility] [place] [facility] [address] [id number] [place] [address]- 3234 16 Feb, 2013 [facility] [place] [facility] [address] [id number] [place] [address]- 6654 15 Feb, 2014 [facility] [place] [facility] [address] [id number] [place] [address]- 9324 15 Feb, 2014 [facility] [place] [facility] [address] [id number] [place] [address]- 7035 08 Feb, 2014 [facility] [place] [facility] [address] [id number] [place] [address]- 6688 08 Feb, 2014 [facility] [place] [facility] [address] [id number] [place] [address]- 3338 Feb, [facility] [place] [facility] [address] [id number] [place] [address]- 7131 Feb, [facility] [place] [facility] [address] [id number] [place] [address]- 9427 Feb, [facility] [place] [facility] [address] [id number] [place] [address]- 5877 30 Jan, 2014 [facility] [place] [facility] [address] [id number] [place] [address]- 2836 30 Jan, 2014 [facility] [place] [facility] [address] [id number] [place] [address]- 6007 29 Jan, 2014 [facility] [place] [facility] [address] [id number] [place] [address]- 5813 29 Jan, 2014 [facility] [place] [facility] [address] [id number] [place] [address]- 0709 24 Jan, 2014 [facility] [place] [facility] [address] [id number] [place] [address]- 5933 24 Jan, 2014 [facility] [place] [facility] [address] [id number] [place] [address]- 2080 10 Jan, 2014 [facility] [place] [facility] [address] [id number] [place] [address]- 8023 08 Jan, 2014 [facility] [place] [facility] [address] [id number] [place] [address]- 0136 Jan, [facility] [place] [facility] [address] [id number] [place] [address]- 7961 Dec, [facility] [place] [facility] [address] [id number] [place] [address]- 9571 Dec, [facility] [place] [facility] [address] [id number] [place] [address]- 7563 Dec, [facility] [place] [facility] [address] [id number] [place] [address]- 6552 Dec, [facility] [place] [facility] [address] [id number] [place] [address]- 5470 Dec, [facility] [place] [facility] [address] [id number] [place] [address]- 1995 Dec, [facility] [place] [facility] [address] [id number] [place] [address]- 8619 Dec, [facility] [place] [facility] [address] [id number] [place] [address]- 9958 Dec, [facility] [place] [facility] [address] [id number] [place] [address]- 5921 Dec, [facility] [place] [facility] [address] [id number] [place] [address]- 4183 Nov, [facility] [place] [facility] [address] [id number] [place] [address]- 7875 Nov, [facility] [place] [facility] [address] [id number] [place] [address]- 2318 Nov, [facility] [place] [facility] [address] [id number] [place] [address] Nov, [facility] [place] [facility] [address] [id number] [place] [address] Nov, [facility] [place] [facility] [address] [id number] [place] [address] Nov, [facility] [place] [facility] [address] [id number] [place] [address] Oct, [facility] [place] [facility] [address] [id number] [place] [address] Oct, [facility] [place] [facility] [address] [id number] [place] [address] Oct, [facility] [place] [facility] [address] [id number] [place] [address] Oct, [facility] [place] [facility] [address] [id number] [place] [address] Oct, [facility] [place] [facility] [address] [id number] [place] [address] Oct, [facility] [place] [facility] [address] [id number] [place] [address] Oct, [facility] [place] [facility] [address] [id number] [place] [address] Oct, [facility] [place] [facility] [address] [id number] [place] [address] Oct, [facility] [place] [facility] [address] [id number] [place] [address] Oct, [facility] [place] [facility] [address] [id number] [place] [address] Oct, [facility] [place] [facility] [address] [id number] [place] [address] Oct, [facility] [place] [facility] [address] [id number] [place] [address] Oct, [facility] [place] [facility] [address] [id number] [place] [address] Oct, [facility] [place] [facility] [address] [id number] [place] [address] September, [facility] [place] [facility] [address] [id number] [place] [address] September, [facility] [place] [facility] [address] [id number] [place] [address] September, [facility] [place] [facility] [address] [id number] [place] [address] September, [facility] [place] [facility] [address] [id number] [place] [address] September, [facility] [address] [id number] [place] [address] September, [facility] [place] [facility] [address] [id number] [place] [address] September, [facility] [place] [facility] [address] [id number] [place] [address] September, [facility] [place] [facility] [address] [id number] [place] [address] September, [facility] [place] [facility] [address] [id number] [place] [address] September, [facility] [place] [facility] [address] [id number] [place] [address] September, [facility] [place] [facility] [address] [id number] [place] [address] September, [facility] [place] [facility] [address] [id number] [place] [address] September, [facility] [place] [facility] [address] [id number] [place] [address] September, [facility] [place] [facility] [address] [id number] [place] [address] September, [facility] [place] [facility] [address] [id number] [place] [address] September, [facility] [place] [facility] [address] [id number] [place] [address] September, [facility] [place] [facility] [address] [id number] [place] [address] September, [facility] [place] [facility] [address] [id number] [place] [address] September, [facility] [place] [facility] [address] [id number] [place] [address] Aug, [facility] [place] [facility] [address] [id number] [place] [address] 08 Aug, 2013 [facility] [place] [facility] [address] [id number] [place] [address] 31 Jul, 2013 [facility] [place] [facility] [address] [id number] [place] [address] 9[address] 31 Jul, 2013 [facility] [place] [facility] [address] [id number] [place] [address] 8[address] 28 Jul, 2013 [facility] [place] [facility] [address] [id number] [place] [address] 4463 28 Jul, 2013 [facility] [place] [facility] [address] [id number] [place] [address] 9643 27 Jul, 2013 [facility] [place] [facility] [address] [id number] [place] [address] 24[address] 27 Jul, 2013 [facility] [place] [facility] [address] [id number] [place] [address]693 Jul, [facility] [place] [facility] [address] [id number] [place] [address] 2935 27 Jul, 2013 [facility] [place] [facility] [address] [id number] [place] [address] 5721 25 Jul, 2013 [facility] [place] [facility] [address] [id number] [place] [address] 10[address] 25 Jul, 2013 [facility] [place] [facility] [address] [id number] [place] [address]- 5562 14 Jul, 2013 [facility] [place] [facility] [address] [id number] [place] [address] 4466 14 Jul, 2013 [facility] [place] [facility] [address] [id number] [place] [address]- 3735 07 Jul, 2013 [facility] [place] [facility] [address] [id number] [place] [address] 9[address] 07 Jul, 2013 [facility] [place] [facility] [address] [facility] [id number] [place] [address] 8656 10 Jun, 2013 [facility] [place] [facility] [address] [id number] [place] [address]- 2636 10 Jun, 2013 [facility] [place] [facility] [address] [id number] [place] [address] Jun, [facility] [place] [facility] [address] [id number] [place] [address] 3948 Jun, [facility] [place] [facility] [address] [id number] [place] [address] 2549 May, [facility] [place] [facility] [address] [id number] [place] [address] May, [facility] [place] [facility] [address] [id number] [place] [address] 9651 May, [facility] [place] [facility] [address] [id number] [place] [address] 0340 May, [facility] [place] [facility] [address] [id number] [place] [address]- 8297 May, [facility] [place] [facility] [address] [id number] [place] [address] 5469 Mar, [facility] [place] [facility] [address] [id number] [place] [address] 59[address] Mar, [facility] [place] [facility] [address] [id number] [place] [address] 7703 Mar, [facility] [place] [facility] [address] [id number] [place] [address] 9037 Mar, [facility] [place] [facility] [address] [id number] [place] [address] 5[address] Mar, [facility] [place] [facility] [address] [id number] [place] [address] 8772 Mar, [facility] [place] [facility] [address] [id number] [place] [address] 2953 Feb, [facility] [place] [facility] [address] [id number][place] [address] Feb, [facility] [place] [facility] [address] [id number] [place] [address] 1642 Feb, [facility] [place] [facility] [address] [id number] [place] [address] Feb, [facility] [place] [facility] [address] [id number] [place] [address] 5[address] Feb, [facility] [place] [facility] [address] [id number] [place] [address] 7862 Feb, [facility] [place] [facility] [address] [id number] [place] [address] 8307 Feb, [facility] [place] [facility] [address] [id number] [place] [address] 9284 Feb, [facility] [place] [facility] [address] [id number] [place] [address] 6310 Feb, [facility] [place] [facility] [address] [id number] [place] [address] 4377 Feb, [facility] [place] [facility] [address] [id number] [place] [address] 8489 Feb, [facility] [place] [facility] [address] [id number] [place] [address] 7871 Feb, [facility] [place] [facility] [address] [id number], [place] [address] 288[address] Jan, [facility] [place] [facility] [address] [id number], [place] [address] Jan, [facility] [place] [facility] [address] [id number] [place] [address] 9787 Dec, [facility] [place] [facility] [address] [id number] [place] [address] 2760 Dec, [facility] [place] [facility] [address] [id number] [place] [address] Nov, [facility] [place] [facility] [address] [id number] [place] [address] 8815 Nov, [facility] [address] [id number] [place] [address] Nov, [facility] [address] [id number] [place] [address] 5[address] Nov, [facility] [address] [id number] [place] [address] 0795 Nov, [facility] [address] [id number] [place] [address] 9369 Oct, [facility] [address] [id number] [place] [address] 9307 September, [facility] [address] [id number] [place] [address] 65[address] Aug, [facility] [address] [id number] [place] [address] 5[address] Jul, [facility] [address] [id number] [place] [address] 3394 Jul, [facility] [address] [id number] [place] [address] 0105 Jul, [facility] [address] [id number] [place] [address] 1381 Jun, [facility] [address] [id number] [place] [address]- 5897 14 Jun, 2012 [facility] [address] [id number] [place] [address] 254 Jun, [facility] [place] [facility] [address] [id number] [place] [address]- 1824 Jun, [facility] [place] [facility] [address] [id number] [place] [address]- 2546 07 Jun, 2012 [facility] [place] [facility] [address] [id number] [place] [address] 6214 May, [facility] [place] [facility] [address] [id number] [place] [address]- 4370 May, [facility] [place] [facility] [address] [id number] [place] [address] 4633 Apr, [facility] [place] [facility] [address] [facility] [id number] [place] [address] Apr, [facility] [place] [facility] [address] [id number] [place] [address]- 3962 Mar, [facility] [place] [facility] [address] [id number] [place] [address]- 8941 Mar, [facility] [place] [facility] [address] [id number] [place] [address]- 2197 Mar, [facility] [place] [facility] [address] [facility] [id number] [place] [address]- 9003 Mar, [facility] [place] [facility] [address] [id number], [place] [address]- 6578 Mar, [facility] [place] [facility] [address] [id number] [place] [address]- 5401 Mar, [facility] [place] [facility] [address] [facility] [id number], [place] [address]- 7096 Mar, [facility] [place] [facility] [address] [id number], [place] [address]- 8011 Mar, [facility] [place] [facility] [address] [id number], [place] [address]- 9292 Mar, [facility] [place] [facility] [address] [id number][place] [address]- 6658 Mar, [facility] [place] [facility] [address] [facility] [id number], [place] [address]- 6957 Feb, [facility] [place] [facility] [address] [facility] [id number][place] [address]- 1209 Feb, [facility] [place] [facility] [address] [id number] [place] [address]- 6373 30 Feb, 2012 [facility] [place] [facility] [address] [id number] [place] [address]- 5679 30 Feb, 2012 [facility] [place] [facility] [address] [id number] [place] [address]- 3736 Feb, [facility] [place] [facility] [address] [id number] [place] [address]- 6156 Feb, [facility] [place] [facility] [address] [id number] [place] [address]- 0566 Jan, [facility] [place] [facility] [address] [id number] [place] [address]- 2230 Jan, [facility] [place] [facility] [address] [id number] [place] [address]- 8587 Dec, [facility] [place] [facility] [address] [id number] [place] [address]- 0868 Dec, [facility] [place] [facility] [address] [id number] [place] [address]- 4221 Dec, [facility] [place] [facility] [address] [id number] [place] [address]- 6194 Nov, [facility] [place] [facility] [address] [id number] [place] [address]- 9007 September, [facility] [place] [facility] [address] [id number] [place] [address]- 2816 September, [facility] [place] [facility] [address] [id number] [place] [address]- 4675 September, [facility] [place] [facility] [address] [id number] [place] [address]- 7029 September, [facility] [place] [facility] [address] [id number] [place] [address]- 5187 Aug, [facility] [place] [facility] [address] [id number] [place] [address]- 8293 Aug, [facility] [place] [facility] [address] [id number] [place] [address]- 9012 Aug, [facility] [place] [facility] [address] [id number] [place] [address]- 0356 Aug, [facility] [place] [facility] [address] [id number] [place] [address]- 2837 Aug, [facility] [place] [facility] [address] [id number] [place] [address]- 9807 Jul, [facility] [place] [facility] [address] [id number] [place] [address]- 1865 Jul, [facility] [place] [facility] [address] [id number] [place] [address]- 1683 Jul, [facility] [place] [facility] [address] [id number] [place] [address]- 7007 29 Jun, 2011 [facility] [place] [facility] [address] [id number] [place] [address]- 3643 17 Jun, 2011 [facility] [place] [facility] [address] [id number] [place] [address]- 0921 Jun, [facility] [place] [facility] [address] [id number] [place] [address]- 4993 Jun, [facility] [place] [facility] [address] [id number] [place] [address]- 3226 Jun, [facility] [place] [facility] [address] [id number] [place] [address]- 9885 Jun, [facility] [place] [facility] [address] [id number] [place] [address]- 8046 Jun, [facility] [place] [facility] [address] [id number] [place] [address]- 2366 24 May, 2011 [facility] [place] [facility] [address] [id number] [place] [address]- 9026 May, [facility] [place] [facility] [address] [id number] [place] [address]- 2679 12 May, 2011 [facility] [address] [id number] [place] [address]- 9599 12 May, 2011 [facility] [place] [facility] [address] [id number] [place] [address]- 3546 27 Apr, 2011 [facility] [address] [id number] [place] [address]- 1096 13 Apr, 2011 [facility] [place] [facility] [address] [id number] [place] [address]- 4786 Mar, [facility] [address] [id number] [place] [address]- 6336 Mar, [facility] [place] [facility] [address] [id number] [place] [address]- 5562 Mar, [facility] [address] [id number] [place] [address]- 3352 Nov, [facility] [place] [facility] [address] [id number] [place] [address]- 8577 May, [facility] [address] [id number] [place] [address]- 0193 Apr, [facility] [address] [id number] [place] [address]- 2425 Apr, [facility] [place] [facility] [address] [id number] [place] [address]- 2883 13 Apr, 2010 [facility] [place] [facility] [address] [id number] [place] [address] 2540 Apr, [facility] [place] [facility] [address] [id number] [place] [address]- 3212 Apr, [facility] [place] [facility] [address] [id number] [place] [address]- 3156 Mar, [facility] [place] [facility] [address] [id number] [place] [address]- 2788 08 Mar, 2010 [facility] [address] [address]- 2756 Feb, [facility] [address], [place] [address]- 9426 Aug, [facility] [address], [place] [address]- 4676 Jul, [facility] [address], [place] [address]- 9986 Jun, [facility] [address], [place] [address]- 7652 Apr, [facility] [address], [place] [address]- 7656 Apr, [facility] [address], [place] [address]- 3026 Mar, [facility] [address], [place] [address]- 4006 Mar, [facility] [address], [place] [address]- 5781 Feb, [facility] [address], [place] [address]- 9876 Dec, [facility] [address] [id number] [address]- 7534 Oct, IMMUNIZATIONS No Known Immunizations SOCIAL HISTORY Never Assessed REASON FOR VISIT Blood pressure check -- ace vazquez PLAN OF CARE VITAL SIGNS Height 66 in 2017-04-25 Blood pressure systolic 136 mmHg 2017-04-25 Blood pressure diastolic 82 mmHg 2017-04-25 MEDICATIONS Unknown Medications RESULTS No Results PROCEDURES No Known procedures INSTRUCTIONS MEDICATIONS ADMINISTERED No Known Medications MEDICAL (GENERAL) HISTORY Type Description Date Medical History hypertension Medical History neuropathy Medical History depression Medical History anxiety Medical History Hyposmolality and/or hyponatremia Surgical History cleaned out left side of sinuses 2013 Surgical History colonscopy 09/03/15 Hospitalization History cellulitis 09/2013 Hospitalization History surgery 2013 Hospitalization History A Fib--[facility] 03/08/2016 Hospitalization History acute chest pain, hypertensive urgency, paroxsysmal htn-[facility] 05/10/16
--- OUTSIDE RECORDS SUMMARY | 2018-09-17 11:55 | XMS REPORT ---
Author Author DESIREE SPENCE Organization [facility] Address [address] [place] [address] Care Team Providers Care Nail Setter Name Role Phone DESIREE SPENCE Unavailable PROBLEMS Type Condition ICD9-CM Code ZQU86-IF Code Onset Dates Condition Status SNOMED Code Problem Chronic migraine G43.709 Active 54171508 Problem Hidradenitis L73.2 Active 02333714 Problem Primary insomnia F51.01 Active 130641617 Problem Paroxysmal atrial fibrillation I48.0 Active 117734187 Problem Vitamin D deficiency E55.9 Active 95266630 Problem Generalized anxiety disorder F41.1 Active 413125127 Problem Idiopathic peripheral neuropathy G60.9 Active 63667613 Problem Mild intermittent asthma without complication J45.20 Active 403033401 Problem Obstructive sleep apnea G47.33 Active 05622978 Problem Elevated alkaline phosphatase level R74.8 Active 604332546 Problem Hyperlipidemia E78.5 Active 35046647 Problem Seasonal allergies J30.2 Active 003444291 Problem Essential hypertension I10 Active 08984919 Problem Hyponatremia E87.1 Active 50286345 Problem Chronic frontal sinusitis J32.1 Active 76447119 ALLERGIES Unknown Allergies SOCIAL HISTORY No smoking Hx information available PLAN OF CARE VITAL SIGNS MEDICATIONS Medication Instructions Dosage Frequency Start Date End Date Duration Status Ambien 5 MG take 1 tablet by Oral route at bedtime 1 time per day Jul, 28 days Active RESULTS No Results PROCEDURES No Known procedures IMMUNIZATIONS No Known Immunizations
--- OUTSIDE RECORDS SUMMARY | 2018-09-17 11:55 | XMS REPORT ---
Author Author JORDY DESIREE [facility] Address [address] [place] [address] Care Team Providers Care Endoscopy Nurse Name Role Phone JORDYCAMPBELL MANSFIELDHANY Unavailable PROBLEMS Type Condition ICD9-CM Code [id number] Code Onset Dates Condition Status SNOMED Code Problem Chronic migraine G43.709 Active 83421872 Problem Hidradenitis L73.2 Active 92544339 Problem Primary insomnia F51.01 Active 192425033 Problem Paroxysmal atrial fibrillation I48.0 Active 967642260 Problem Vitamin D deficiency E55.9 Active 57723126 Problem Generalized anxiety disorder F41.1 Active 037737259 Problem Idiopathic peripheral neuropathy G60.9 Active 45077166 Problem Mild intermittent asthma without complication J45.20 Active 137730041 Problem Obstructive sleep apnea G47.33 Active 39027623 Assessment Candidal intertrigo B37.2 Mar, Active 424132808 Assessment Essential hypertension I10 Mar, Active 78800680 Problem Elevated alkaline phosphatase level R74.8 Active 629521695 Problem Hyperlipidemia E78.5 Active 54378809 Problem Seasonal allergies J30.2 Active 132420525 Problem Essential hypertension I10 Active 34229547 Problem Hyponatremia E87.1 Active 50859688 Problem Chronic frontal sinusitis J32.1 Active 64229746 ALLERGIES Substance Reaction Event Type Date Status Amitriptyline HCl Unknown Drug Allergy Mar, Active SOCIAL HISTORY No smoking Hx information available PLAN OF CARE VITAL SIGNS Height 66 in 2016-04-06 Weight 276.0 lbs 2016-04-06 Heart Rate 80 bpm 2016-04-06 Respiratory Rate 18 2016-04-06 BMI 44.54 kg/m2 2016-04-06 Blood pressure systolic 138 mmHg 2016-04-06 Blood pressure diastolic 90 mmHg 2016-04-06 MEDICATIONS Medication Instructions Dosage Frequency Start Date End Date Duration Status Omeprazole 20 MG Orally Once a day 1 capsule 24h 24 Jan, 2014 Active Diltiazem CD 240 MG Orally Once a day 1 capsule 24h Active Alprazolam 0.5 mg take 1 tablet by Oral route 2 times per day Jan, Active Abilify 5 MG Orally Once a day 1 tablet 24h Active Xarelto 20 mg Orally Once a day 1 tablet with food 24h Active Albuterol 90 MCG/ACT Active Metoprolol Succinate ER 50 MG Orally Once a day 1 tablet 24h Active Nortriptyline HCl 25 MG Orally Once a day at bedtime 2 capsule Active Protonix 40 MG Orally Once a day 1 tablet 24h Active Aripiprazole 5 MG Orally Once a day 1 tablet 24h Active buspirone 5 mg take 2 tablets by Oral route 4 times per day Feb, Active CarBAMazepine ER 200 MG Orally once a day in am & 2 tabs every pm 1 capsule Active Carafate 1 GM 1 TAB(S) PO QIDACHS Active Flonase 50 MCG/ACT Nasally Once a day 1 spray in each nostril 24h 16 Nov, 2014 Active Ambien 5 MG take 1 tablet by Oral route at bedtime 1 time per day Jul, 28 days Active Lisinopril 40 MG Orally Once a day 1 tablet 24h Mar, 90 days Active Pristiq 100 mg once daily Jan, Active Nystatin 566456 UNIT/GM Externally Twice a day 1 application to affected area 12h Mar, Apr, 14 days Active ProAir HFA 90 mcg/actuation 2 puffs by Inhalation route 4 times per day PRN needs to keep appointment 01-10-14 Dec, Active RESULTS No Results PROCEDURES Procedure Date Ordered Related Diagnosis Body Site [facility] VISIT ESTABLISHED PATIENT Apr 06, 2016 Office Visit, Est Pt., Level 3 Apr 06, 2016 IMMUNIZATIONS No Known Immunizations
--- OUTSIDE RECORDS SUMMARY | 2018-09-17 11:55 | XMS REPORT ---
Author Author KALANI ASHBY Organization [employer] Address Unknown Phone Unavailable Care Team Providers Care Benefits Officer Name Role Phone KALANI ASHBY CP Unavailable Allergies No Known Allergies Problems [...] R74.8 Active Problem Hyperlipidemia E78.5 Active Medications No Known Medications Results No Known Results Summary Purpose [employer] Submission
--- OUTSIDE RECORDS SUMMARY | 2018-09-17 11:55 | XMS REPORT ---
Author Author DESIREE SPENCE [employer] Address Unknown Phone Unavailable Care Team Providers Care Ship Surveyor Name Role Phone DESIREE SPENCE CP Unavailable Allergies, Adverse Reactions, Alerts Substance Reaction Event Type Amitriptyline HCl Info Not Available Drug Allergy Problems Problem Type Condition ICD-9 Code Onset Dates Condition Status Problem Persistent disorder of initiating or maintaining sleep 307.42 Active Problem Unspecified hereditary and idiopathic peripheral neuropathy 356.9 Active Problem Hidradenitis 705.83 Active Problem Hyperlipidemia 272.4 Active Problem Elevated alkaline phosphatase level 790.5 Active Problem Hypertension 401.9 Active Problem Obstructive sleep apnea (adult) (pediatric) 327.23 Active Problem Anxiety state, unspecified 300.00 Active Problem Unspecified vitamin D deficiency 268.9 Active Problem Asthma, unspecified, unspecified status 493.90 Active Assessment GERD (gastroesophageal reflux disease) 530.81 Active Assessment Dysphagia 787.20 Active Problem Chronic frontal sinusitis 473.1 Active Problem Headache 784.0 Active Medications Medication Code System Code Instructions Start Date End Date Status Dosage buspirone NDC 0 5 mg Feb 20, 2014 take 2 tablets by Oral route 4 times per day Lisinopril [facility] 74621402725 20 MG Orally Once a day 1 tablet propranolol NDC 0 40 mg Jun 17, 2014 1 tablet by Oral route 2 times per day for headache prevention Ambien [facility] [address]-73 5 MG July 18, 2014 take 1 tablet by Oral route at bedtime 1 time per day Omeprazole [facility] [address]-37 20 MG Orally Once a day Jan 30, 2014 1 capsule CarBAMazepine ER [facility] [address]-99 200 MG Orally once a day in am & 2 tabs every pm 1 capsule Nortriptyline HCl [facility] [address]-25 25 MG Orally Once a day at bedtime 2 capsule Propranolol HCl [facility] 30171274594 40 MG 1 TABLET BY ORAL ROUTE 2 TIMES PER DAY FOR HEADACHE PREVENTION Hydrochlorothiazide [facility] 90190662641 12.5 MG 1 CAPSULE BY ORAL ROUTE 1 TIME PER DAY Pristiq [facility] [address]-76 100 mg Jan 30, 2014 once daily Abilify [facility] [address]-32 5 MG Orally Once a day 1 tablet Alprazolam [facility] [address]-81 0.5 mg Jan 30, 2014 take 1 tablet by Oral route 2 times per day Procedures Procedure Coding System Code Date Office Visit, Est Pt., Level 3 CPT-4 01499 Jan 08, 2015 [facility] VISIT ESTABLISHED PATIENT CPT-4 G0467 Jan 08, 2015 Vital Signs Date/Time: Jan 08, 2015 Temperature 98.0 F Weight 255.3 lbs Height 66 in BMI 41.20 Index Blood Pressure Diastolic 90 mmHg Blood Pressure Systolic 148 mmHg Cardiac Monitoring Heart Rate 80 bpm Results No Known Results Summary Purpose [employer] Submission
--- OUTSIDE RECORDS SUMMARY | 2018-09-17 11:55 | XMS REPORT ---
Author Author JORDY DESIREE [facility] Address [address] [place] [address] Care Team Providers Care Inside Wirer Name Role Phone JORDYCAMPBELL MANSFIELDHANY Unavailable PROBLEMS Type Condition ICD9-CM Code [id number] Code Onset Dates Condition Status SNOMED Code Problem Elevated alkaline phosphatase level R74.8 Active 024156749 Problem Essential hypertension I10 Active 96847099 Problem Obstructive sleep apnea G47.33 Active 27578353 Problem Other chronic gastritis without hemorrhage K29.50 Active 1206835 Problem Paroxysmal atrial fibrillation I48.0 Active 489806248 Problem Vitamin D deficiency E55.9 Active 18730223 Problem Hyperlipidemia E78.5 Active 86323632 Problem Chronic frontal sinusitis J32.1 Active 66207183 Problem Hyponatremia E87.1 Active 29747959 Problem Seasonal allergies J30.2 Active 398005984 Problem Mild intermittent asthma without complication J45.20 Active 605184786 Problem Chronic migraine G43.709 Active 50231165 Problem Primary insomnia F51.01 Active 393427065 Problem Hidradenitis L73.2 Active 69457397 Problem Generalized anxiety disorder F41.1 Active 263072877 Problem Idiopathic peripheral neuropathy G60.9 Active 52740364 ALLERGIES Substance Reaction Event Type Date Status Amitriptyline HCl Unknown Drug Allergy May, Active SOCIAL HISTORY No smoking Hx information available PLAN OF CARE Activity Details Follow Up 3 Months Reason:HTN VITAL SIGNS Height 66 in 2016-05-19 Weight 267.5 lbs 2016-05-19 Temperature 98.5 degrees Fahrenheit 2016-05-19 Heart Rate 74 bpm 2016-05-19 Respiratory Rate 18 2016-05-19 BMI 43.17 kg/m2 2016-05-19 Blood pressure systolic 138 mmHg 2016-05-19 Blood pressure diastolic 89 mmHg 2016-05-19 MEDICATIONS Medication Instructions Dosage Frequency Start Date End Date Duration Status Hydrochlorothiazide 12.5 MG Orally Once a day 1 tablet 24h Active Xarelto 20 mg Orally Once a day 1 tablet with food 24h Active Alprazolam 0.5 mg take 1 tablet by Oral route 2 times per day Jan, Active Pepcid 20 MG Orally Once a day 1 tablet at bedtime 24h Active Abilify 5 MG Orally Once a day 1 tablet 24h Active Lisinopril 40 MG Orally Once a day 1 tablet 24h Mar, Active Ambien 5 MG take 1 tablet by Oral route at bedtime 1 time per day Jul, 28 days Active Viibryd 20 mg Orally Once a day 1 tablet 24h Active Protonix 40 MG Orally Once a day 1 tablet 24h Active Flonase 50 MCG/ACT Nasally Once a day 1 spray in each nostril 24h Nov, Active ProAir HFA 90 mcg/actuation 2 puffs by Inhalation route 4 times per day PRN needs to keep appointment -08-20Dec, Active Metoprolol Succinate ER 50 MG Orally Once a day 1 tablet 24h Active Klor-Con M20 20 MEQ Orally Once a day 1 tablet with food 24h Active CarBAMazepine ER 200 MG Orally once a day in am & 2 tabs every pm 1 capsule Active Amlodipine Besylate 10 MG Orally Once a day 1 tablet 24h Active Nortriptyline HCl 25 MG Orally Once a day at bedtime 2 capsule Active Diltiazem CD 240 MG Orally Once a day 1 capsule 24h Active BusPIRone HCl 10 mg Orally Once a day 2 tablets 24h Active RESULTS No Results PROCEDURES Procedure Date Ordered Related Diagnosis Body Site [facility] VISIT ESTABLISHED PATIENT May 19, 2016 Office Visit, Est Pt., Level 3 May 19, 2016 IMMUNIZATIONS No Known Immunizations
--- OUTSIDE RECORDS SUMMARY | 2018-09-17 11:55 | XMS REPORT ---
Author Author JORDY DESI[facility] Address [address] [place] [address] Care Team Providers Care Precision Lens Polisher Name Role Phone DESIREE SPENCE Unavailable PROBLEMS Type Condition ICD9-CM Code VRA58-PI Code Onset Dates Condition Status SNOMED Code Problem Vitamin D deficiency E55.9 Active 14989283 Problem Chronic frontal sinusitis J32.1 Active 94076552 Problem Hyponatremia E87.1 Active 31779585 Problem BMI 40.0-44.9, adult Z68.41 Active 552215914 Problem Seasonal allergies J30.2 Active 641034339 Problem Secondary pulmonary arterial hypertension I27.21 Active 66877475 Problem Other chronic gastritis without hemorrhage K29.50 Active 2137795 Problem Paroxysmal atrial fibrillation I48.0 Active 292864815 Problem Fasciculations of muscle R25.3 Active 05761694 Problem Depression, unspecified depression type F32.9 Active 10164006 Problem Mild intermittent asthma without complication J45.20 Active 851569069 Problem Chronic migraine G43.709 Active 76577490 Problem Primary insomnia F51.01 Active 062338034 Problem Generalized anxiety disorder F41.1 Active 051370839 Problem Elevated alkaline phosphatase level R74.8 Active 835206709 Problem Obstructive sleep apnea G47.33 Active 73923972 Problem Hidradenitis L73.2 Active 02517698 Problem Essential hypertension I10 Active 89407468 Problem Idiopathic peripheral neuropathy G60.9 Active 79917835 Problem Hyperlipidemia E78.5 Active 81330878 ALLERGIES Substance Reaction Event Type Date Status Amitriptyline HCl Unknown Drug Allergy Apr, Active ENCOUNTERS Encounter Location Date Diagnosis [facility] [address] [facility] [id number] [address] Nov, [facility] [address] [facility] [id number], [place] [address] Oct, [facility] [id number] [place] [address] 81318- 7063 15 Sep, 2017 Medicare annual wellness visit, [...] and BMI 40.0-44.9, adult Z68.41 [facility] [address] [address]- 9758 30 Aug, 2017 Essential hypertension I10 [facility] [address] [address] 09 Jun, 2017 Dysuria R30.0 ; UTI symptoms R39.9 and Candidiasis of breast B37.89 [facility] [address] 68174- 6976 Jun, Hyponatremia E87.1 [facility] [address] 50779- 1363 Jun, Hyponatremia E87.1 [facility] [address] 79980- 0254 Jun, Hyponatremia E87.1 [facility] [facility] [address] 13250- 9904 Jun, [facility] [address] [address]23- 4183 May, Hyponatremia E87.1 [place] [facility] [address] 25010- 6206 May, Hyponatremia E87.1 [facility] [address] 05501- 2052 May, Hyponatremia E87.1 [facility] [facility] [address] [place] [address]- 1257 May, Hyponatremia E87.1 [facility] [id number] [place] [address] 21849- 3942 Apr, Hyponatremia E87.1 ; Fasciculations of muscle R25.3 and Hyperlipidemia E78.5 [facility] [id number] [place] [address] 55410- 7659 Apr, Cough R05 ; Hyponatremia E87.1 ; Fasciculations of muscle R25.3 ; Primary insomnia F51.01 ; Essential hypertension I10 ; Hyperlipidemia E78.5 ; Screening for breast cancer Z12.31 and BMI 40.0-44.9, adult Z68.41 [facility] [id number] [place] [address] 54379- 8020 Apr, Essential hypertension I10 [facility] [id number] [place] [address] 91801- 4241 Mar, [facility] [id number] [place] [address] 46779- 3563 Mar, [facility] [id number] [place] [address] 96231- 0627 Mar, [facility] [id number] [place] [address] 14392- 5708 Feb, [facility] [id number] [place] [address] 27604- 9069 Jan, [facility] [id number] [place] [address] 73300- 3761 Dec, Essential hypertension I10 [facility] [id number] [place] [address] 39991- 6242 Dec, [facility] [id number] [place] [address] 18617- 4402 Dec, Essential hypertension I10 [facility] [id number] [place] [address] 62125- 4656 Nov, [facility] [address], [place] [address] 6323 Oct, Essential hypertension I10 [facility] [id number] [place] [address] 52791- 4262 Oct, Essential hypertension I10 [facility] [id number] [place] [address] 63089- 0887 Oct, [facility] [id number] [place] [address] 92344- 3768 September, [facility] [id number] [place] [address] 92257- 2146 September, Essential hypertension I10 [facility] [id number] [place] [address] 34569- 3583 September, [facility] [id number] [place] [address] 63630- 3114 September, Essential hypertension I10 ; Hyperlipidemia E78.5 and Hyponatremia E87.1 [facility] [id number] [place] [address] 57798- 1569 September, Mild intermittent asthma without complication J45.20 ; Essential hypertension I10 ; Hyperlipidemia E78.5 ; Hyponatremia E87.1 and Dysuria R30.0 [facility] [address], [place] [address] 5560 September, Other chronic gastritis without hemorrhage K29.50 ; Paroxysmal atrial fibrillation I48.0 and Essential hypertension I10 [facility] [address], [place] [address] 2278 Aug, [facility] [id number] [place] [address] 43348- 4442 Jul, [facility] [address], [place] [address]- 8577 14 Jun, 2016 [facility] [id number] [place] [address] 56073 -7886 07 Jun, 2016 Dysuria R30.0 and Acute cystitis with hematuria N30.01 [facility] [address] 43045- 4513 Jun, Essential hypertension I10 [facility] [id number] [place] [address] 51853- 6429 May, Paroxysmal atrial fibrillation I48.0 [facility] [address] 39960- 5491 May, Other chronic gastritis without hemorrhage K29.50 [facility] [address] 06808- 7045 May, [facility] [address] 72977- 2288 May, Hyponatremia E87.1 ; Essential hypertension I10 and Other chronic gastritis without hemorrhage K29.50 [facility] [address] 10596- 7840 May, Hyponatremia E87.1 [facility] [address] 44767- 5000 May, Hyponatremia E87.1 [facility] [address] [id number] May, [facility] [id number] [place] [address] 84389- 4677 Apr, [facility] [address] 12544- 6081 Apr, [facility] [address] 63346- 4081 Mar, Essential hypertension I10 and Candidal intertrigo B37.2 [facility] [id number] [place] [address] 87059- 4996 Mar, Hyponatremia E87.1 [facility] [address] 55660- 0645 14 Mar, 2016 [facility] [id number] [place] [address] 96865- 2748 Mar, Hyponatremia E87.1 [facility] [id number] [place] [address] 16979- 6824 09 Mar, 2016 Essential hypertension I10 ; Hyponatremia E87.1 ; Slurred speech R47.81 ; Paroxysmal atrial fibrillation I48.0 and Elevated blood sugar R73.9 [facility] [id number] [place] [address] 26378- 9350 Mar, [facility] [address] 71690- 0908 Mar, [facility] [address] 92861- 3616 Feb, [facility] [address] 85330- 2473 Jan, [facility] [id number] [place] [address] 71166- 4458 Dec, [facility] [id number] [place] [address] 75647 -1927 Nov, Scratched by cat, initial encounter W55.03XA and Other injury of unspecified body region T14.8 [facility] [id number] [place] [address] 39154- 4320 Nov, [facility] [id number] [place] [address] 69618- 6480 Oct, [facility] [id number] [place] [address] 79489- 1184 September, [facility] [address] 84518- 8315 08 Aug, 2015 Elevated alkaline phosphatase level R74.8 [facility] [id number] [place] [address] 92393- 5351 Jul, [facility] [id number] [place] [address] 91337- 7910 Jun, Essential hypertension I10 and Bright red blood per rectum K62.5 [facility] [id number] [place] [address] 54553- 6569 Jun, Elevated alkaline phosphatase level R74.8 [place] [address] 57104- 5260 Jun, [facility] [address] 31403- 2010 May, Essential hypertension I10 ; Hyperlipidemia E78.5 and Well woman exam (no gynecological exam) Z00.00 [place] [id number] [place] [address] 52622- 9138 May, [place] [address] 14781- 2124 May, [facility] [id number] [place] [address] 17782- 2063 Mar, [place] [address] 19697- 1509 Mar, [place] [id number] [place] [address] 51697- 8008 Mar, [place] [id number] [place] [address] 98305- 6968 Feb, Acute recurrent maxillary sinusitis J01.01 ; Asthma, unspecified, unspecified status 493.90 ; Seasonal allergies J30.2 and Cat allergies J30.81 [place] [address] 40899- 9979 13 Feb, 2015 Upper respiratory tract infection, unspecified upper respiratory infection J06.9 [place] [id number] [place] [address] 37503- 6185 10 Jan, 2015 [facility] [address] 38623- 7551 Jan, Dysphagia 787.20 and GERD (gastroesophageal reflux disease) 530.81 [facility] [id number] [place] [address] 80230- 8741 Jan, Breast lesion 611.9 [facility] [id number] [place] [address] 07980- 5046 Dec, Breast lesion 611.9 [facility] [id number] [place] [address] 40328- 7513 Dec, Breast lesion 611.9 [facility] [id number] [place] [address] 11032- 9202 Nov, Fatigue 780.79 and Hyperlipidemia 272.4 [facility] [id number] [place] [address] 714193- 3831 Nov, Hypertension 401.9 ; Hyperlipidemia 272.4 ; Chronic frontal sinusitis 473.1 and Fatigue 780.79 [facility] [id number] [place] [address] 01655- 9788 Nov, [facility] [id number] [place] [address] 838959- 6083 Oct, [facility] [id number] [place] [address] 32427- 6178 Oct, [facility] [id number] [place] [address] 44410- 8868 September, [facility] [id number] [place] [address] 96636- 9778 September, [facility] [id number] [place] [address] 12185- 8646 September, [facility] [id number] [place] [address] 06830- 1016 September, [facility] [address] [place] [address] 29069- 0146 Aug, [facility] [place] [facility] [address] [id number] [place] [address]- 6080 14 Aug, 2014 [facility] [place] [facility] [address] [id number] [place] [address]- 9481 13 Aug, 2014 [facility] [place] [facility] [address] [id number] [place] [address]- 1378 20 Jul, 2014 [facility] [place] [facility] [address] [id number] [place] [address]- 6345 20 Jul, 2014 [facility] [place] [facility] [address] [id number] [place] [address]- 6075 19 Jul, 2014 [facility] [place] [facility] [address] [id number] [place] [address]- 0917 19 Jul, 2014 [facility] [place] [facility] [address] [id number] [place] [address]- 3212 18 Jul, 2014 [facility] [place] [facility] [address] [id number] [place] [address]- 6335 17 Jul, 2014 [facility] [place] [facility] [address] [id number] [place] [address]- 7804 17 Jul, 2014 [facility] [place] [facility] [address] [id number] [place] [address]- 6979 16 Jul, 2014 [facility] [place] [facility] [address] [id number] [place] [address]- 5363 16 Jul, 2014 [facility] [place] [facility] [address] [id number] [place] [address]- 0390 12 Jul, 2014 [facility] [place] [facility] [address] [id number] [place] [address]- 7510 12 Jul, 2014 [facility] [place] [facility] [address] [id number] [place] [address]- 2589 09 Jul, 2014 [facility] [place] [facility] [address] [id number] [place] [address]- 6866 09 Jul, 2014 [facility] [place] [facility] [address] [id number] [place] [address]- 5341 Jul, [facility] [place] [facility] [address] [id number] [place]- 5789 Jul, [facility] [place] [facility] [address] [id number] [place] [address]- 9894 Jun, [facility] [place] [facility] [address] [id number] [place] [address]- 1318 Jun, [facility] [place] [facility] [address] [id number] [place] [address]- 4092 Jun, [facility] [place] [facility] [address] [id number] [place] [address]- 2368 Jun, [facility] [place] [facility] [address] [id number] [place] [address]- 8481 May, [facility] [place] [facility] [address] [id number] [place] [address]- 4930 May, [facility] [place] [facility] [address] [id number] [place] [address]- 8047 May, [facility] [place] [facility] [address] [id number] [place] [address]- 5103 May, [facility] [place] [facility] [address] [id number] [place] [address]- 8277 Apr, [facility] [place] [facility] [address] [id number] [place] [address]- 1495 Apr, [facility] [place] [facility] [address] [id number] [place] [address]- 6996 Apr, [facility] [place] [facility] [address] [id number] [place] 4583 Apr, [facility] [place] [facility] [address] [id number] [place] [address]- 3033 Apr, [facility] [place] [facility] [address] [id number] [place] [address]- 3925 Apr, [facility] [place] [facility] [address] [id number] [place] [address]- 3621 Mar, [facility] [place] [facility] [address] [id number] [place] [address]- 6873 Mar, [facility] [place] [facility] [address] [id number] [place] [address]- 2588 Mar, [facility] [place] [facility] [address] [id number] [place] [address]- 9441 Mar, [facility] [place] [facility] [address] [id number] [place] [address]- 8042 Mar, [facility] [place] [facility] [address] [id number] [place] [address]- 7314 Mar, [facility] [place] [facility] [address] [id number] [place] [address]- 6113 Mar, [facility] [place] [facility] [address] [id number] [place] [address]- 8832 Mar, [facility] [place] [facility] [address] [id number] [place] [address]- 8741 Mar, [facility] [place] [facility] [address] [id number] [place] [address]- 8125 Mar, [facility] [place] [facility] [address] [id number] [place] [address]- 0385 Mar, [facility] [place] [facility] [address] [id number] [place] [address]- 4626 Mar, [facility] [place] [facility] [address] [id number] [place] [address]- 8690 Mar, [facility] [place] [facility] [address] [id number] [place] [address]- 2853 Mar, [facility] [place] [facility] [address] [id number] [place] [address]- 0446 Mar, [facility] [place] [facility] [address] [id number] [place] [address]- 5662 Mar, [facility] [place] [facility] [address] [id number] [place] [address]- 0576 Mar, [facility] [place] [facility] [address] [id number] [place] [address]- 6628 30 Feb, 2014 [facility] [place] [facility] [address] [id number] [place] [address]- 1305 30 Feb, 2014 [facility] [place] [facility] [address] [id number] [place] [address]- 3614 30 Feb, 2014 [facility] [place] [facility] [address] [id number] [place] [address]- 3974 Feb, [facility] [place] [facility] [address] [id number] [place] [address]- 0703 Feb, [facility] [place] [facility] [address] [id number] [place] [address]- 7357 Feb, [facility] [place] [facility] [address] [id number] [place] [address]- 2300 Feb, [facility] [place] [facility] [address] [id number] [place] [address]- 3033 Feb, [facility] [place] [facility] [address] [id number], [place] [address]- 2827 Feb, [facility] [place] [facility] [address] [id number], [place] [address]- 8960 28 Feb, 2014 [facility] [place] [facility] [address] [id number], [place] [address]- 3225 16 Feb, 2014 [facility] [place] [facility] [address] [id number] [place] [address]- 4781 16 Feb, 2014 [facility] [place] [facility] [address] [id number], [place] [address]- 2712 15 Feb, 2014 [facility] [place] [facility] [address] [id number], [place] [address]- 9129 15 Feb, 2014 [facility] [place] [facility] [address] [id number], [place] [address]- 8118 08 Feb, 2014 [facility] [place] [facility] [address] [id number] [place] [address]- 1285 08 Feb, 2014 [facility] [place] [facility] [address] [id number] [place] [address]- 0206 Feb, [facility] [place] [facility] [address] [facility] [id number] [place] [address]- 0789 Feb, [facility] [place] [facility] [address] [id number] [place] [address]- 5495 Feb, [facility] [place] [facility] [address] [id number] [place] [address]- 7455 30 Jan, 2014 [facility] [place] [facility] [address] [id number] [place] [address]- 5304 30 Jan, 2013 [facility] [place] [facility] [address] [id number] [place] [address]- 9954 29 Jan, 2013 [facility] [place] [facility] [address] [id number] [place] [address]- 1073 29 Jan, 2013 [facility] [place] [facility] [address] [id number] [place] [address]- 6526 24 Jan, 2013 [facility] [place] [facility] [address] [facility] [id number] [place] [address] 24 Jan, 2013 [facility] [place] [facility] [address] [id number] [place] [address] 10 Jan, 2014 [facility] [place] [facility] [address] [id number], [place] [address] 08 Jan, 2013 [facility] [place] [facility] [address] [id number] [place] [address] 08 Jan, 2014 [facility] [place] [facility] [address] [facility] [id number] [place] [address] Dec, [facility] [place] [facility] [address] [id number] [place] [address] Dec, [facility] [place] [facility] [address] [id number] [place] [address] Dec, [facility] [place] [facility] [address] [id number] [place] [address] Dec, [facility] [place] [facility] [address] [id number] [place] [address] Dec, [facility] [place] [facility] [address] [id number] [place] [address] Dec, [facility] [place] [facility] [address] [id number] [place] [address] Dec, [facility] [place] [facility] [address] [id number] [place] [address] Dec, [facility] [place] [facility] [address] [id number] [place] [address] Dec, [facility] [place] [facility] [address] [id number] [place] [address] Nov, [facility] [place] [facility] [address] [id number] [place] [address] Nov, [facility] [place] [facility] [address] [id number] [place] [address] Nov, [facility] [place] [facility] [address] [id number] [place] [address] Nov, [facility] [place] [facility] [address] [id number] [place] [address] Nov, [facility] [place] [facility] [address] [id number] [place] [address] Nov, [facility] [place] [facility] [address] [id number] [place] [address] Oct, [facility] [place] [facility] [address] [id number] [place] [address] Oct, [facility] [place] [facility] [address] [id number] [place] [address] Oct, [facility] [place] [facility] [address] [id number] [place] [address] Oct, [facility] [place] [facility] [address] [id number] [place] [address] Oct, [facility] [place] [facility] [address] [id number] [place] [address] Oct, [facility] [place] [facility] [address] [id number] [place] [address] Oct, [facility] [place] [facility] [address] [id number] [place] [address] Oct, [facility] [place] [facility] [address] [id number] [place] [address] Oct, [facility] [place] [facility] [address] [id number] [place] [address] Oct, [facility] [place] [facility] [address] [id number] [place] [address] Oct, [facility] [place] [facility] [address] [id number] [place] [address] Oct, [facility] [place] [facility] [address] [id number] [place] [address] Oct, [facility] [place] [facility] [address] [id number] [place] [address] Oct, [facility] [place] [facility] [address] [id number], [place] [address] September, [facility] [place] [facility] [address] [id number] [place] [address] September, [facility] [place] [facility] [address] [id number] [place] [address] September, [facility] [place] [facility] [address] [id number] [place] [address] September, [facility] [place] [facility] [address] [id number] [place] [address] September, [facility] [address] [id number] [place] [address] September, [facility] [place] [facility] [address] [id number] [place] [address] September, [facility] [address] [id number] [place] [address] September, [facility] [place] [facility] [address] [id number] [place] [address] September, [facility] [place] [facility] [address] [id number] [place] [address] 38[address] September, [facility] [place] [facility] [address] [id number] [place] [address] September, [facility] [address] [id number] [place] [address] September, [facility] [address] [id number] [place] [address] 84[address] September, [facility] [place] [facility] [address] [id number] [place] [address] 66[address] September, [facility] [address] [id number] [place] [address] 39[address] September, [facility] [place] [facility] [address] [id number] [place] [address] 12[address] September, [facility] [place] [facility] [address] [id number] [place] [address] September, [facility] [place] [facility] [address] [id number] [place] [address] September, [facility] [place] [facility] [address] [id number] [place] [address] September, [facility] [place] [facility] [address] [id number] [place] [address] 6[address] Aug, [facility] [place] [facility] [address] [id number] [place] [address] Aug, [facility] [place] [facility] [address] [id number] [place] [address]- [address] 31 Jul, 2013 [facility] [place] [facility] [address] [id number] [place] [address] 5931 31 Jul, 2013 [facility] [place] [facility] [address] [id number] [place] [address]- 2747 Jul, [facility] [place] [facility] [address] [id number] [place] [address]- 9433 28 Jul, 2013 [facility] [place] [facility] [address] [id number] [place] [address]- 1541 Jul, [facility] [place] [facility] [address] [id number] [place] [address]- 0546 Jul, [facility] [place] [facility] [address] [id number] [place] [address]- 8544 Jul, [facility] [place] [facility] [address] [id number] [place] [address]- 8467 Jul, [facility] [place] [facility] [address] [id number] [place] [address]- 1458 Jul, [facility] [place] [facility] [address] [id number] [place] [address]- 7594 Jul, [facility] [place] [facility] [address] [id number] [place] [address]- 9104 14 Jul, 2013 [facility] [place] [facility] [address] [id number] [place] [address]- 4744 14 Jul, 2013 [facility] [place] [facility] [address] [id number] [place] [address]- 7836 07 Jul, 2013 [facility] [place] [facility] [address] [id number] [place] [address]- 2448 07 Jul, 2013 [facility] [place] [facility] [address] [id number] [place] [address]- 6638 Jun, [facility] [place] [facility] [address] [id number] [place] [address]- 4053 Jun, [facility] [place] [facility] [address] [id number] [place] [address]- 4780 Jun, [facility] [place] [facility] [address] [id number] [place] [address]- 9289 Jun, [facility] [place] [facility] [address] [id number] [place] [address]- 0965 May, [facility] [place] [facility] [address] [id number] [place] [address]- 1549 May, [facility] [place] [facility] [address] [id number] [place] [address]- 9396 May, [facility] [place] [facility] [address] [id number] [place] [address]- 9805 May, [facility] [place] [facility] [address] [id number] [place] [address]- 4531 May, [facility] [place] [facility] [address] [id number] [place] [address]- 0808 Mar, [facility] [place] [facility] [address] [facility] [id number] [place] [address]- 8958 Mar, [facility] [place] [facility] [address] [id number] [place] [address]- 2431 Mar, [facility] [place] [facility] [address] [id number], [place] [address] Mar, [facility] [place] [facility] [address] [id number] [place] [address]- 4608 Mar, [facility] [place] [facility] [address] [id number] [place] [address]- 3323 Mar, [facility] [place] [facility] [address] [facility] [id number] [place] [address]- 0498 Feb, [facility] [place] [facility] [address] [id number] [place] [address]- 9641 Feb, [facility] [place] [facility] [address] [id number] [place] [address] Feb, [facility] [place] [facility] [address] [id number] [place] [address]- 3854 Feb, [facility] [place] [facility] [address] [id number] [place] [address]- 0074 Feb, [facility] [place] [facility] [address] [id number] [place] [address]- 2339 Feb, [facility] [place] [facility] [address] [id number] [place] [address]- 6972 Feb, [facility] [place] [facility] [address] [id number] [place] [address]- 1308 Feb, [facility] [place] [facility] [address] [id number] [place] [address]- 0998 Feb, [facility] [place] [facility] [address] [id number] [place] [address]- 8829 Feb, [facility] [place] [facility] [address] [id number] [place] [address]- 5596 Feb, [facility] [place] [facility] [address] [id number] [place] [address]- 7238 Feb, [facility] [place] [facility] [address] [id number] [place] [address]- 5089 Jan, [facility] [place] [facility] [address] [id number] [place] [address]- 2124 Jan, [facility] [place] [facility] [address] [id number] [place] [address]- 7199 Dec, [facility] [place] [facility] [address] [id number] [place] [address]- 8053 Dec, [facility] [place] [facility] [address] [id number] [place] [address]- 2523 Nov, [facility] [place] [facility] [address] [id number] [place] [address]- 8074 Nov, [facility] [place] [facility] [address] [id number] [place] [address]- 2838 Nov, [facility] [place] [facility] [address] [id number] [place] [address]- 7766 Nov, [facility] [place] [facility] [address] [id number] [place] [address]- 6886 Nov, [facility] [place] [facility] [address] [id number] [place] [address]- 0738 Oct, [facility] [place] [facility] [address] [id number] [place] [address]- 9529 September, [facility] [place] [facility] [address] [id number] [place] [address]- 7551 Aug, [facility] [place] [facility] [address] [id number] [place] [address]- 6879 Jul, [facility] [place] [facility] [address] [id number] [place] [address]- 5186 Jul, [facility] [place] [facility] [address] [id number] [place] [address]- 8649 Jul, [facility] [place] [facility] [address] [id number] [place] [address]- 3567 Jun, [facility] [place] [facility] [address] [id number] [place] [address]- 6996 14 Jun, 2012 [facility] [place] [facility] [address] [id number] [place] [address]- 5760 Jun, [facility] [place] [facility] [address] [id number] [place] [address]- 4604 Jun, [facility] [place] [facility] [address] [id number] [place] [address]- 0396 07 Jun, 2012 [facility] [place] [facility] [address] [id number] [place] [address]- 0582 May, [facility] [address] [id number] [place] [address]- 6412 May, [facility] [place] [facility] [address] [id number] [place] [address]- 5656 Apr, [facility] [place] [facility] [address] [id number] [place] [address]- 4724 Apr, [facility] [place] [facility] [address] [id number] [place] [address]- 5678 Mar, [facility] [place] [facility] [address] [id number] [place] [address]- 3038 Mar, [facility] [place] [facility] [address] [id number] [place] [address]- 4444 Mar, [facility] [place] [facility] [address] [id number] [place] [address]- 0314 Mar, [facility] [address] [id number] [place] [address]- 0060 Mar, [facility] [place] [facility] [address] [id number] [place] [address]- 1055 Mar, [facility] [place] [facility] [address] [facility] [id number] [place] [address]- 0823 Mar, [facility] [place] [facility] [address] [id number] [place] [address]- 6374 Mar, [facility] [place] [facility] [address] [id number] [place] [address]- 8828 Mar, [facility] [place] [facility] [address] [id number] [place] [address] Mar, [facility] [place] [facility] [address] [id number] [place] [address]- 4537 Feb, [facility] [place] [facility] [address] [id number] [place] [address]- 0207 Feb, [facility] [place] [facility] [address] [id number] [place] [address]- 6537 Feb, [facility] [place] [facility] [address] [id number] [place] [address]- 4537 Feb, [facility] [place] [facility] [address] [id number] [place] [address]- 5018 Feb, [facility] [place] [facility] [address] [id number] [place] [address]- 5550 Feb, [facility] [place] [facility] [address] [id number] [place] [address]- 3569 Jan, [facility] [place] [facility] [address] [id number] [place] [address]- 8259 Jan, [facility] [place] [facility] [address] [id number] [place] [address]- 2506 Dec, [facility] [place] [facility] [address] [id number] [place] [address]- 1615 Dec, [facility] [place] [facility] [address] [id number] [place] [address]- 2782 Dec, [facility] [place] [facility] [address] [id number] [place] [address]- 9961 Nov, [facility] [place] [facility] [address] [id number] [place] [address]- 1265 September, [facility] [place] [facility] [address] [id number] [place] [address]- 0665 September, [facility] [place] [facility] [address] [id number] [place] [address]- 6935 September, [facility] [place] [facility] [address] [id number] [place] [address]- 1036 September, [facility] [place] [facility] [address] [id number] [place] [address]- 7770 Aug, [facility] [place] [facility] [address] [id number] [place] [address]- 6377 20 Aug, 2011 [facility] [address] [id number] [place] [address]- 8486 19 Aug, 2011 [facility] [place] [facility] [address] [id number] [place] [address]- 9176 10 Aug, 2011 [facility] [place] [facility] [id number] [place] [address]- 9606 05 Aug, 2011 [facility] [place] [facility] [address] [id number] [place] [address]- 5058 13 Jul, 2011 [facility] [place] [facility] [address] [id number] [place] [address]- 0372 05 Jul, 2011 [facility] [place] [facility] [address] [id number] [place] [address]- 0486 02 Jul, 2011 [facility] [id number] [place] [place] [address]- 2688 29 Jun, 2011 [facility] [place] [facility] [address] [id number] [place] [address]- 9166 17 Jun, 2011 [facility] [place] [facility] [id number] [place] [place] [address]- 9273 13 Jun, 2011 [facility] [place] [facility] [id number] [place] [place] [address]- 3990 10 Jun, 2011 [facility] [place] [facility] [id number] [place] [place] [address]- 4236 07 Jun, 2011 [facility] [place] [facility] [address] [facility] [id number] [place] [address]- 5963 Jun, [facility] [place] [facility] [id number] [place] [place] [address]- 0033 03 Jun, 2011 [facility] [place] [facility] [id number] [place] [place] [address]- 3706 24 May, 2011 [facility] [place] [facility] [id number] [place] [place] [address]- 0345 May, [facility] [address] [id number] [place] [address]- 8430 May, [facility] [place] [facility] [address] [id number] [place] [address]- 4748 May, [facility] [place] [facility] [address] [id number] [place] [address]- 4443 Apr, [facility] [place] [facility] [address] [id number] [place] [address]- 3306 Apr, [facility] [place] [facility] [address] [id number] [place] [address]- 5168 Mar, [facility] [place] [facility] [address] [id number] [place] [address]- 7222 Mar, [facility] [place] [facility] [address] [id number] [place] [address]- 4143 Mar, [facility] [place] [facility] [address] [id number] [place] [address]- 3179 Nov, [facility] [place] [facility] [address] [id number] [place] [address]- 0956 May, [facility] [place] [facility] [address] [id number] [place] [address]- 3884 Apr, [facility] [place] [facility] [address] [id number], [place] [address]- 8172 Apr, [facility] [place] [facility] [address] [id number], [place] [address]- 7432 Apr, [facility] [place] [facility] [address] [id number] [place] [address]- 9839 Apr, [facility] [place] [facility] [address] [id number] [place] [address]- 8343 Apr, [facility] [place] [facility] [address] [id number] [place] [address]- 8329 18 Mar, 2010 [facility] [place] [facility] [address] [id number], [place] [address]- 0566 08 Mar, 2010 [facility] [id number], [place] [address]- 2121 Feb, [facility] [address], [place] [address]- 9266 14 Aug, 2009 [facility] [address], [place] [address]- 4311 Jul, [facility] [id number] [place] [address]- 2161 Jun, [facility] [id number] [place] [address]66- 5612 Apr, [facility] [id number] [place] [address]- 1659 Apr, [facility] [id number] [place] [address] 18196- 1048 Mar, [facility] [id number], [place] [address]- 6207 Mar, [facility] [id number] [place] [address]- 2342 Feb, [facility] [id number], [place] [address]- 8573 Dec, [facility] [id number], [place] [address]- 4158 Oct, IMMUNIZATIONS No Known Immunizations SOCIAL HISTORY Never Assessed REASON FOR VISIT BP fu-- ace vazquez PLAN OF CARE Activity Details Follow Up 3 Months Reason:HTN VITAL SIGNS Height 66 in 2017-04-28 Weight 260.0 lbs 2017-04-28 Temperature 98.5 degrees Fahrenheit 2017-04-28 Heart Rate 80 bpm 2017-04-28 Respiratory Rate 22 2017-04-28 BMI 41.96 kg/m2 2017-04-28 Blood pressure systolic 124 mmHg 2017-04-28 Blood pressure diastolic 76 mmHg 2017-04-28 MEDICATIONS Medication Instructions Dosage Frequency Start Date End Date Duration Status Viibryd 10 mg Orally Once a day 1 tablet 24h Active CarBAMazepine ER 200 MG Orally once a day in am & 2 tabs every pm 1 capsule Active Pepcid 20 mg Orally 2 times a day 1 tablet at bedtime 12h 90 Active Klor-Con M20 20 MEQ Orally Once a day 1 tablet with food 24h 90 Active Nortriptyline HCl 25 MG Orally Once a day at bedtime 2 capsule Active ProAir HFA 108 (90 Base) mcg/act 2 puffs by Inhalation route 4 times per day PRN needs to keep appointment 01-10-14 Dec, Active Flonase 50 MCG/ACT Nasally Once a day 1 spray in each nostril 24h Active Alprazolam 0.5 mg take 1 tablet by Oral route 2 times per day Jan, Active Nystatin 844376 UNIT/GM Externally Twice a day 1 application to affected area 12h Not-Taking Carafate 1 GM Orally 4 times a day 1 tablet on an empty stomach 6h Not-Taking Lisinopril 40 mg Orally Once a day 1 tablet 24h Mar, 90 days Active Protonix 40 MG Orally Once a day 1 tablet 24h Not-Taking Hydrochlorothiazide 12.5 MG Orally Once a day 1 tablet 24h Active BusPIRone HCl 10 mg Orally Once a day 2 tablets 24h Active Pristiq 100 mg once daily Jan, Active Amlodipine Besylate 10 mg Orally Once a day 1 tablet 24h Active Xarelto 20 mg Orally Once a day 1 tablet with food 24h 90 Active Metoprolol Succinate ER 50 mg Orally Once a day 1 tablet 24h Active Abilify 5 MG Orally Once a day 1 tablet 24h Active Klor-Con M20 20 MEQ Orally Once a day 1 tablet with food 24h 90 days Active Diltiazem CD 240 MG Orally Once a day 1 capsule 24h Not-Taking RESULTS Name Result Date Reference Range Mammogram, Bilateral Screening 2017-05-10 CT Scan : Chest w/o Contrast 2017-05-10 PROCEDURES Procedure Date Ordered Result Body Site [facility] VISIT ESTABLISHED PATIENT Apr 28, 2017 INSTRUCTIONS MEDICATIONS ADMINISTERED No Known Medications MEDICAL (GENERAL) HISTORY Type Description Date Medical History hypertension Medical History neuropathy Medical History depression Medical History anxiety Medical History Hyposmolality and/or hyponatremia Surgical History cleaned out left side of sinuses 2013 Surgical History colonscopy 09/03/15 Hospitalization History cellulitis 09/2013 Hospitalization History surgery 2013 Hospitalization History A Fib--[facility] 03/08/2016 Hospitalization History acute chest pain, hypertensive urgency, paroxsysmal htn-[facility] 05/10/16
--- OUTSIDE RECORDS SUMMARY | 2018-09-17 11:56 | XMS REPORT ---
Author Author DESIREE SPENCE eClinical[employer] Address Unknown Phone Unavailable Care Team Providers Care Safety Leader Name Role Phone DESIREE SPENCE CP Unavailable Allergies No Known Allergies Problems Problem Type Condition ICD-9 Code Onset [...] Asthma, unspecified, unspecified status 493.90 Active Assessment Breast lesion 611.9 Active Problem Chronic frontal sinusitis 473.1 Active Problem Headache 784.0 Active Medications No Known Medications Results No Known Results Summary Purpose [employer] Submission
--- OUTSIDE RECORDS SUMMARY | 2018-09-17 11:56 | XMS REPORT ---
Author Author MIAH ALMEIDA [facility] Address [address] [place] [address] Care Team Providers Care Payloader Operator Name Role Phone VIDALES MIAH MAGANA Unavailable PROBLEMS Type Condition ICD9-CM Code VWE11-JD Code Onset Dates Condition Status SNOMED Code Problem Hyponatremia E87.1 Active 73102121 Problem Paroxysmal atrial fibrillation I48.0 Active 899041361 Problem Chronic frontal sinusitis J32.1 Active 24635236 Problem Chronic kidney disease, unspecified CKD stage N18.9 Active 106101754 Problem Primary insomnia F51.01 Active 173466087 Problem Secondary pulmonary arterial hypertension I27.21 Active 47137120 Problem Seasonal allergies J30.2 Active 698247125 Problem Fasciculations of muscle R25.3 Active 77817825 Problem Other chronic gastritis without hemorrhage K29.50 Active 5697582 Problem BMI 40.0-44.9, adult Z68.41 Active 110853393 Problem Depression, unspecified depression type F32.9 Active 95106483 Problem Chronic migraine G43.709 Active 56544555 Problem Hidradenitis L73.2 Active 49014144 Problem Generalized anxiety disorder F41.1 Active 701991892 Problem Mild intermittent asthma without complication J45.20 Active 256550378 Problem Obstructive sleep apnea G47.33 Active 50822378 Problem Essential hypertension I10 Active 31161423 Problem Idiopathic peripheral neuropathy G60.9 Active 23073162 Problem Hyperlipidemia E78.5 Active 21159609 Problem Elevated alkaline phosphatase level R74.8 Active 877682722 Problem Vitamin D deficiency E55.9 Active 24241294 ALLERGIES Substance Reaction Event Type Date Status Amitriptyline HCl Unknown Drug Allergy Jun, Active ENCOUNTERS Encounter Location Date Diagnosis [facility] [address] [facility] [id number] [address] Nov, [facility] [id number] [place] [address] 60979- 4869 Oct, Essential hypertension I10 and Chronic kidney disease, unspecified CKD stage N18.9 [place] [id number] [place] [address] 63747- 7278 Oct, Essential hypertension I10 and Chronic kidney disease, unspecified CKD stage N18.9 [place] [id number] [place] [address] 29620- 5310 Oct, [place] [id number] [place] [address] 40351- 5291 September, Medicare annual wellness visit, initial Z00.00 ; Mild intermittent asthma without complication J45.20 ; Generalized anxiety disorder F41.1 ; Depression, unspecified depression type F32.9 ; Paroxysmal atrial fibrillation I48.0 ; Obstructive sleep apnea G47.33 ; Hyponatremia E87.1 ; Need for hepatitis C screening test Z11.59 ; Encounter for immunization Z23 ; Secondary pulmonary arterial hypertension I27.21 and BMI 40.0-44.9, adult Z68.41 [place] [id number] [place] [address] 24554- 1886 Aug, Essential hypertension I10 [facility] [id number] [place] [address] 23818 -3343 Jun, Dysuria R30.0 ; UTI symptoms R39.9 and Candidiasis of breast B37.89 [place] [id number] [place] [address] 29503- 4010 Jun, Hyponatremia E87.1 [place] [id number] [place] [address] 55387- 3028 Jun, Hyponatremia E87.1 [place] [id number] [place] [address] 04523- 9668 Jun, Hyponatremia E87.1 [facility] [id number] [place] [address] 03085- 6963 Jun, [place] [id number] [place] [address] 74621- 7543 May, Hyponatremia E87.1 [facility] [id number] [place] [address] 32470- 9817 May, Hyponatremia E87.1 [facility] [id number] [place] [address] 37455- 7025 May, Hyponatremia E87.1 [facility] [address] 95128- 7886 May, Hyponatremia E87.1 [facility] [id number] [place] [address] 47520- 9809 Apr, Hyponatremia E87.1 ; Fasciculations of muscle R25.3 and Hyperlipidemia E78.5 [place] [id number] [place] [address] 31173- 5089 Apr, Cough R05 ; Hyponatremia E87.1 ; Fasciculations of muscle R25.3 ; Primary insomnia F51.01 ; Essential hypertension I10 ; Hyperlipidemia E78.5 ; Screening for breast cancer Z12.31 and BMI 40.0-44.9, adult Z68.41 [place] [id number] [place] [address] 96167- 5065 Apr, Essential hypertension I10 [place] [id number] [place] [address] 23290- 5697 14 Mar, 2017 [facility] [id number] [place] [address] 19077- 6492 Mar, [facility] [id number] [place] [address] 90097- 4763 Mar, [facility] [id number] [place] [address] 83643- 6668 Feb, [facility] [id number] [place] [address] 46951- 7807 Jan, [facility] [address] [place] [address]- 8756 14 Dec, 2016 Essential hypertension I10 [facility] [address] [address] 0157 Dec, [facility] [id number] [place] [address] 69095- 0301 Dec, Essential hypertension I10 [facility] [id number] [place] [address] 06099- 4470 Nov, [facility] [id number] [place] [address] 29618- 3973 Oct, Essential hypertension I10 [facility] [id number] [place] [address] 83054- 1645 Oct, Essential hypertension I10 [facility] [id number] [place] [address] 86037- 3155 Oct, [facility] [id number] [place] [address] 45550- 1155 September, [facility] [id number] [place] [address] 31677- 9240 September, Essential hypertension I10 [facility] [address] [address]- 3909 September, [facility] [address] [address]- 0266 September, Essential hypertension I10 ; Hyperlipidemia E78.5 and Hyponatremia E87.1 [facility] [address], [place] [address] 0557 September, Mild intermittent asthma without complication J45.20 ; Essential hypertension I10 ; Hyperlipidemia E78.5 ; Hyponatremia E87.1 and Dysuria R30.0 [facility] [address] [address]- 5774 September, Other chronic gastritis without hemorrhage K29.50 ; Paroxysmal atrial fibrillation I48.0 and Essential hypertension I10 [facility] [id number] [place] [address] 51611- 5013 11 Aug, 2016 [facility] [id number] [place] [address] 13392- 9574 Jul, [facility] [id number] [place] [address] 04441- 7859 14 Jun, 2016 [facility] [address] 56043 -7710 07 Jun, 2016 Dysuria R30.0 and Acute cystitis with hematuria N30.01 [facility] [id number] [place] [address] 09914- 6198 Jun, Essential hypertension I10 [facility] [id number] [place] [address] 48909- 1259 May, Paroxysmal atrial fibrillation I48.0 [facility] [address] 61662- 1812 May, Other chronic gastritis without hemorrhage K29.50 [facility] [id number] [place] [address] 57700- 5761 May, [facility] [id number] [place] [address] 99780- 8384 May, Hyponatremia E87.1 ; Essential hypertension I10 and Other chronic gastritis without hemorrhage K29.50 [facility] [id number] [place] [address] 52245- 2407 May, Hyponatremia E87.1 [facility] [id number] [place] [address] 29271- 1986 May, Hyponatremia E87.1 [facility] [address] [id number] May, [facility] [id number] [place] [address] 26119- 1058 Apr, [facility] [id number] [place] [address] 97813- 6298 Apr, [facility] [id number] [place] [address] 84540- 2158 Mar, Essential hypertension I10 and Candidal intertrigo B37.2 [facility] [id number] [place] [address] 55200- 9873 Mar, Hyponatremia E87.1 [facility] [address] 32549- 1303 Mar, [facility] [address] 98776- 3020 Mar, Hyponatremia E87.1 [place] [address] 92367- 0499 Mar, Essential hypertension I10 ; Hyponatremia E87.1 ; Slurred speech R47.81 ; Paroxysmal atrial fibrillation I48.0 and Elevated blood sugar R73.9 [facility] [address] 36322- 4872 Mar, [facility] [address] 36955- 3068 Mar, [facility] [id number] [place] [address] 64138- 4629 Feb, [place] [id number] [place] [address] 90558- 1747 Jan, [facility] [address] 11532- 8129 Dec, [facility] [address] 33497 -6784 Nov, Scratched by cat, initial encounter W55.03XA and Other injury of unspecified body region T14.8 [facility] [id number] [place] [address] 79151- 2538 Nov, [facility] [address] [place] [address]- 3359 Oct, [facility] [id number] [place] [address] 25652- 7302 September, [facility] [id number] [place] [address] 52460- 9275 Aug, Elevated alkaline phosphatase level R74.8 [facility] [id number] [place] [address] 29881- 4693 Jul, [facility] [id number] [place] [address] 27951- 6870 Jun, Essential hypertension I10 and Bright red blood per rectum K62.5 [place] [id number] [place] [address] 21951- 0647 Jun, Elevated alkaline phosphatase level R74.8 [place] [id number] [place] [address] 72407- 4922 Jun, [facility] [id number] [place] [address] 31507- 0240 May, Essential hypertension I10 ; Hyperlipidemia E78.5 and Well woman exam (no gynecological exam) Z00.00 [facility] [address], [place] [address]- 9726 May, [facility] [address] [place] [address] 54267- 8791 May, [facility] [id number] [place] [address] 43487- 3373 Mar, [facility] [id number] [place] [address] 81159- 6646 Mar, [facility] [id number] [place] [address] 80717- 3120 Mar, [facility] [address], [place] [address]- 1532 Feb, Acute recurrent maxillary sinusitis J01.01 ; Asthma, unspecified, unspecified status 493.90 ; Seasonal allergies J30.2 and Cat allergies J30.81 [place] [address] 68353- 5801 Feb, Upper respiratory tract infection, unspecified upper respiratory infection J06.9 [place] [address] 82311- 5754 Jan, [place] [address] 39190- 9101 Jan, Dysphagia 787.20 and GERD (gastroesophageal reflux disease) 530.[address] 66977- 4506 Jan, Breast lesion 611.[address] 21456- 2736 Dec, Breast lesion 611.9 [place] [address] 76653- 1139 Dec, Breast lesion 611.9 [place] [address] 10306- 5360 Nov, Fatigue 780.79 and Hyperlipidemia 272.[address] 58434- 0459 Nov, Hypertension 401.9 ; Hyperlipidemia 272.4 ; Chronic frontal sinusitis 473.1 and Fatigue 780.79 [place] [id number] [place] [address] 36438- 6621 Nov, [place] [address] 48590- 9380 Oct, [address] 16622- 8699 Oct, [place] [address] 55618- 0275 September, [address] [place] [address]- 3985 September, [facility] [place] [facility] [address] [id number] [place] [address]- 6580 September, [facility] [place] [facility] [address] [id number] [place] [address]- 1506 September, [facility] [place] [facility] [address] [id number] [place] [address]- 7332 Aug, [facility] [place] [facility] [address] [id number] [place] [address]- 8711 14 Aug, 2014 [facility] [place] [facility] [address] [id number] [place] [address]- 2351 Aug, [facility] [place] [facility] [address] [id number] [place] [address]- 6789 20 Jul, 2014 [facility] [place] [facility] [address] [id number] [place] [address]- 3676 20 Jul, 2014 [facility] [place] [facility] [address] [id number] [place] [address]- 2206 19 Jul, 2014 [facility] [place] [facility] [address] [id number] [place] [address]- 5965 19 Jul, 2014 [facility] [place] [facility] [address] [id number] [place] [address]- 5300 18 Jul, 2014 [facility] [place] [facility] [address] [id number] [place] [address]- 5718 17 Jul, 2014 [facility] [place] [facility] [address] [id number] [place] [address]- 4429 17 Jul, 2014 [facility] [place] [facility] [address] [id number] [place] [address]- 4480 16 Jul, 2014 [facility] [place] [facility] [address] [id number] [place] 4347 16 Jul, 2014 [facility] [place] [facility] [address] [id number] [place] [address]- 8384 12 Jul, 2014 [facility] [place] [facility] [address] [id number] [place] [address]- 6186 Jul, [facility] [place] [facility] [address] [id number] [place] [address]- 0169 Jul, [facility] [place] [facility] [address] [id number] [place] [address]- 3492 Jul, [facility] [place] [facility] [address] [id number] [place] [address]- 9206 Jul, [facility] [place] [facility] [address] [id number] [place] [address]- 8638 Jul, [facility] [place] [facility] [address] [id number] [place] [address]- 0416 Jun, 2014 [facility] [place] [facility] [address] [facility] [id number] [place] [address]- 7710 Jun, [facility] [place] [facility] [address] [id number] [place] [address]- 8085 Jun, [facility] [place] [facility] [address] [id number] [place] [address]- 8865 Jun, [facility] [place] [facility] [address] [facility] [id number] [place] [address]- 8966 May, [facility] [place] [facility] [address] [id number] [place] [address]- 0146 May, [facility] [place] [facility] [address] [id number], [place] [address]- 7691 May, [facility] [place] [facility] [address] [id number] [place] [address]- 4706 May, [facility] [place] [facility] [address] [id number] [place] [address]- 0736 Apr, [facility] [place] [facility] [address] [id number], [place] [address]- 2369 Apr, [facility] [place] [facility] [address] [id number], [place] [address]- 8547 Apr, [facility] [place] [facility] [address] [id number] [place] [address]- 0937 Apr, [facility] [place] [facility] [address] [id number] [place] [address]- 6287 Apr, [facility] [place] [facility] [address] [facility] [id number] [place] [address]- 0698 Apr, [facility] [place] [facility] [address] [id number] [place] [address]- 7377 Mar, [facility] [place] [facility] [address] [id number] [place] [address]- 0667 Mar, [facility] [place] [facility] [address] [id number] [place] [address]- 2375 Mar, [facility] [place] [facility] [address] [facility] [id number] [place] [address]- 2347 Mar, [facility] [place] [facility] [address] [id number] [place] [address]- 5013 Mar, [facility] [place] [facility] [address] [id number] [place] [address]- 3823 Mar, [facility] [place] [facility] [address] [facility] [id number] [place] [address]- 0486 Mar, [facility] [place] [facility] [address] [id number] [place] [address]- 7409 Mar, [facility] [place] [facility] [address] [id number], [place] [address]- 1424 Mar, [facility] [place] [facility] [address] [id number] [place] [address]- 0480 Mar, [facility] [place] [facility] [address] [id number] [place] [address]- 7006 Mar, [facility] [place] [facility] [address] [facility] [id number] [place] [address]- 9142 Mar, [facility] [place] [facility] [address] [id number] [place] [address]- 8349 Mar, [facility] [place] [facility] [address] [id number] [place] [address]- 4187 Mar, [facility] [place] [facility] [address] [id number] [place] 5095 Mar, [facility] [place] [facility] [address] [id number] [place] [address]- 7638 Mar, [facility] [place] [facility] [address] [id number] [place] [address]- 6868 Mar, [facility] [place] [facility] [address] [id number] [place] [address]- 3643 Feb, [facility] [place] [facility] [address] [id number] [place] [address]- 8262 Feb, [facility] [place] [facility] [address] [id number] [place] [address]- 6756 Feb, [facility] [place] [facility] [address] [id number] [place] [address]- 2571 30 Feb, 2014 [facility] [place] [facility] [address] [id number] [place] [address]- 6994 Feb, [facility] [place] [facility] [address] [facility] [id number] [place] [address]- 2601 29 Feb, 2014 [facility] [place] [facility] [address] [id number] [place] [address]- 0159 Feb, [facility] [place] [facility] [address] [id number] [place] [address]- 3035 Feb, [facility] [place] [facility] [address] [id number] [place] [address]- 8978 Feb, [facility] [place] [facility] [address] [id number] [place] [address]- 2335 Feb, [facility] [place] [facility] [address] [id number] [place] [address]- 0384 16 Feb, 2014 [facility] [place] [facility] [address] [id number] [place] [address] 16 Feb, 2014 [facility] [place] [facility] [address] [id number] [place] [address] Feb, [facility] [place] [facility] [address] [id number] [place] [address] Feb, [facility] [place] [facility] [address] [id number] [place] [address] Feb, [facility] [place] [facility] [address] [id number] [place] [address] Feb, [facility] [place] [facility] [address] [id number] [place] [address] Feb, [facility] [place] [facility] [address] [id number] [place] [address] Feb, [facility] [place] [facility] [address] [id number] [place] [address] Feb, [facility] [place] [facility] [address] [id number] [place] [address] 30 Jan, 2013 [facility] [place] [facility] [address] [id number] [place] [address] 30 Jan, 2013 [facility] [place] [facility] [address] [id number], [place] [address] 29 Sep, 2013 [facility] [place] [facility] [address] [id number], [place] [address] 29 Sep, 2013 [facility] [place] [facility] [address] [id number] [place] [address] 24 Jan, 2013 [facility] [place] [facility] [address] [id number] [place] [address] 24 Jan, 2013 [facility] [place] [facility] [address] [id number] [place] [address] 10 Jan, 2013 [facility] [place] [facility] [address] [id number] [place] [address] Jan, [facility] [place] [facility] [address] [id number] [place] [address] Jan, [facility] [place] [facility] [address] [id number] [place] [address] Dec, [facility] [place] [facility] [address] [id number] [place] [address] Dec, [facility] [place] [facility] [address] [id number] [place] [address] Dec, [facility] [place] [facility] [address] [id number] [place] [address] Dec, [facility] [place] [facility] [address] [id number] [place] [address] Dec, [facility] [place] [facility] [address] [id number] [place] [address] Dec, [facility] [place] [facility] [address] [id number] [place] [address] Dec, [facility] [place] [facility] [address] [id number] [place] [address] Dec, [facility] [place] [facility] [address] [id number] [place] [address] Dec, [facility] [place] [facility] [address] [id number] [place] [address] Nov, [facility] [place] [facility] [address] [id number] [place] [address] Nov, [facility] [place] [facility] [address] [id number] [place] [address] Nov, [facility] [place] [facility] [address] [id number] [place] [address] Nov, [facility] [place] [facility] [address] [id number] [place] [address] Nov, [facility] [place] [facility] [address] [id number] [place] [address] Nov, [facility] [place] [facility] [address] [id number] [place] [address] Oct, [facility] [place] [facility] [address] [id number] [place] [address] Oct, [facility] [place] [facility] [address] [id number] [place] [address] Oct, [facility] [place] [facility] [address] [id number] [place] [address] Oct, [facility] [place] [facility] [address] [id number] [place] [address] Oct, [facility] [place] [facility] [address] [id number] [place] [address] Oct, [facility] [place] [facility] [address] [id number] [place] [address] Oct, [facility] [place] [facility] [address] [address] [id number] [place] [address] Oct, [facility] [place] [facility] [address] [id number] [place] [address] Oct, [facility] [place] [facility] [address] [id number] [place] [address] Oct, [facility] [place] [facility] [address] [id number] [place] [address] 7933 Oct, [facility] [place] [facility] [address] [id number] [place] [address] 95[address] Oct, [facility] [place] [facility] [address] [id number] [place] [address] Oct, [facility] [place] [facility] [address] [id number] [place] [address] Oct, [facility] [place] [facility] [address] [id number] [place] [address] 7457 September, [facility] [address] [id number] [place] [address] September, [facility] [place] [facility] [address] [id number] [place] [address] September, [facility] [place] [facility] [address] [id number] [place] [address] 83[address] September, [facility] [place] [facility] [address] [id number] [place] [address] September, [facility] [place] [facility] [address] [id number] [place] [address] 0973 September, [facility] [place] [facility] [address] [id number] [place] [address] 2231 September, [facility] [place] [facility] [address] [id number] [place] [address] 3316 September, [facility] [place] [facility] [address] [id number] [place] [address] 0940 September, [facility] [place] [facility] [address] [id number] [place] [address] 8489 September, [facility] [place] [facility] [address] [id number] [place] [address]- 7864 September, [facility] [place] [facility] [address] [id number] [place] [address]- 3921 September, [facility] [place] [facility] [address] [id number] [place] [address]- 9088 September, [facility] [place] [facility] [address] [id number] [place] [address] 2602 September, [facility] [place] [facility] [address] [id number] [place] [address] September, [facility] [place] [facility] [address] [id number] [place] [address]- 7498 September, [facility] [place] [facility] [address] [id number] [place] [address] 8473 September, [facility] [address] [id number] [place] [address] 2499 September, [facility] [place] [facility] [address] [id number] [place] [address] 2896 September, [facility] [address] [id number] [place] [address]- 8089 Aug, [facility] [place] [facility] [address] [id number] [place] [address] 0[address] Aug, [facility] [address] [id number] [place] [address] 5720 Jul, [facility] [place] [facility] [address] [id number] [place] [address] 2900 Jul, [facility] [place] [facility] [address] [id number] [place] [address] 0221 Jul, [facility] [address] [id number] [place] [address]- [address]40 28 Jul, 2013 [facility] [place] [facility] [address] [id number] [place] [address] 8774 Jul, [facility] [address] [id number] [place] [address]- 2915 Jul, [facility] [place] [facility] [address] [id number] [place] [address]- 4299 Jul, [facility] [place] [facility] [address] [id number] [place] [address]- 9966 27 Jul, 2013 [facility] [place] [facility] [address] [id number] [place] [address]- 6267 25 Jul, 2013 [facility] [place] [facility] [address] [id number] [place] [address]- 5934 25 Jul, 2013 [facility] [place] [facility] [address] [id number] [place] [address]- 4417 14 Jul, 2013 [facility] [place] [facility] [address] [id number] [place] [address]- 5409 14 Jul, 2013 [facility] [place] [facility] [address] [id number] [place] [address]- 0206 07 Jul, 2013 [facility] [place] [facility] [address] [id number] [place] [address]- 7071 Jul, [facility] [place] [facility] [address] [id number] [place] [address]- 4761 Jun, [facility] [place] [facility] [address] [id number] [place] [address]- 0150 Jun, [facility] [place] [facility] [address] [id number] [place] [address]- 5707 Jun, [facility] [place] [facility] [address] [id number] [place] [address]- 5138 Jun, [facility] [place] [facility] [address] [id number] [place] [address]- 0383 May, [facility] [place] [facility] [address] [id number] [place] [address]- 0255 May, [facility] [place] [facility] [address] [id number] [place] [address]- 1488 May, [facility] [place] [facility] [address] [id number] [place] [address]- 7559 May, [facility] [place] [facility] [address] [id number] [place] [address]- 9792 May, [facility] [place] [facility] [address] [id number] [place] [address]- 6873 Mar, [facility] [place] [facility] [address] [id number] [place] [address]- 8596 Mar, [facility] [place] [facility] [address] [id number] [place] [address]- 7858 Mar, [facility] [place] [facility] [address] [id number] [place] [address]- 3560 Mar, [facility] [place] [facility] [address] [id number] [place] [address]- 6776 Mar, [facility] [place] [facility] [address] [id number] [place] [address] Mar, [facility] [place] [facility] [address] [id number] [place] [address]- 7086 Feb, [facility] [place] [facility] [address] [id number] [place] [address]- 1301 Feb, [facility] [place] [facility] [address] [id number] [place] [address]- 4274 Feb, [facility] [place] [facility] [address] [id number] [place] [address]- 4953 Feb, [facility] [place] [facility] [address] [id number] [place] [address]- 3160 Feb, [facility] [place] [facility] [address] [id number] [place] [address]- 9303 Feb, [facility] [place] [facility] [address] [id number] [place] [address]- 1704 Feb, [facility] [place] [facility] [address] [id number] [place] [address]- 6783 Feb, [facility] [place] [facility] [address] [id number] [place] [address]- 4759 Feb, [facility] [place] [facility] [address] [id number] [place] [address]- 7090 Feb, [facility] [place] [facility] [address] [id number] [place] [address]- 0889 08 Feb, 2013 [facility] [place] [facility] [address] [id number] [place] [address]- 0036 Feb, [facility] [place] [facility] [address] [id number] [address] Jan, [facility] [place] [facility] [address] [id number] [place] [address]- 0365 Jan, [facility] [address] [id number] [place] [address]- 2903 Dec, [facility] [place] [facility] [address] [id number] [place] [address]- 0677 Dec, [facility] [place] [facility] [address] [id number] [place] [address]- 2566 Nov, [facility] [address] [id number] [place] [address]- 3200 Nov, [facility] [place] [facility] [address] [id number] [place] [address]- 0759 Nov, [facility] [address] [id number] [place] [address]- 5192 Nov, [facility] [address] [id number] [place] [address]- 1300 Nov, [facility] [address] [id number] [place] [address]- 2318 Oct, [facility] [address] [id number] [place] [address]- 8332 September, [facility] [place] [facility] [address] [id number] [place] [address]- 8159 Aug, [facility] [place] [facility] [address] [id number] [place] [address]- 3244 Jul, [facility] [place] [facility] [address] [id number] [place] [address]- 1157 Jul, [facility] [place] [facility] [address] [id number] [place] [address]- 8056 Jul, [facility] [place] [facility] [address] [id number] [place] [address]- 7343 Jun, [facility] [place] [facility] [address] [id number] [place] [address]- 1640 14 Jun, 2012 [facility] [address] [id number] [place] [address]- 5079 12 Jun, 2012 [facility] [place] [facility] [address] [id number] [place] [address]- 3093 11 Jun, 2012 [facility] [address] [facility] [id number] [place] [address]- 2384 07 Jun, 2012 [facility] [place] [facility] [address] [id number] [place] [address]- 0008 25 May, 2012 [facility] [address] [id number] [place] [address]- 8400 May, [facility] [address] [id number] [place] [address]- 9609 Apr, [facility] [address] [facility] [id number] [place] [address]- 2685 Apr, [facility] [address] [facility] [id number] [place] [address]- 0658 Mar, [facility] [address] [facility] [id number] [place] [address]- 5718 Mar, [facility] [address] [facility] [id number] [place] [address]- 0657 Mar, [facility] [address] [facility] [id number] [place] [address]- 7414 Mar, [facility] [place] [facility] [address] [id number], [place] [address]- 3097 Mar, [facility] [place] [facility] [address] [id number] [place] [address]- 1038 Mar, [facility] [place] [facility] [address] [facility] [id number] [place] [address]- 5906 Mar, [facility] [place] [facility] [address] [facility] [id number] [place] [address]- 0339 Mar, [facility] [place] [facility] [address] [id number] [place] [address]- 2546 Mar, [facility] [place] [facility] [address] [id number] [place] [address]- 6853 Mar, [facility] [place] [facility] [address] [id number] [place] [address]- 5856 Feb, [facility] [place] [facility] [address] [id number] [place] [address]- 0618 Feb, [facility] [place] [facility] [address] [id number] [place] [address]- 4093 Feb, [facility] [place] [facility] [address] [id number] [place] [address]- 4862 Feb, [facility] [place] [facility] [address] [id number] [place] [address]- 6355 Feb, [facility] [place] [facility] [address] [id number] [place] [address]- 9399 Feb, [facility] [place] [facility] [address] [id number] [place] [address]- 0232 Jan, [facility] [place] [facility] [address] [id number] [place] [address]- 2807 Jan, [facility] [place] [facility] [address] [id number] [place] [address]- 8369 Dec, [facility] [place] [facility] [address] [id number] [place] [address]- 3636 Dec, [facility] [place] [facility] [address] [id number] [place] [address]- 7973 Dec, [facility] [place] [facility] [address] [id number] [place] [address]- 5176 Nov, [facility] [place] [facility] [address] [id number] [place] [address]- 2320 September, [facility] [place] [facility] [address] [id number] [place] [address]- 0654 September, [facility] [place] [facility] [address] [id number] [place] [address]- 2596 September, [facility] [place] [facility] [address] [id number] [place] [address]- 7154 September, [facility] [place] [facility] [address] [id number] [place] [address]- 3749 Aug, [facility] [place] [facility] [address] [id number] [place] [address]- 5191 Aug, [facility] [place] [facility] [address] [id number] [place] [address]- 2947 Aug, [facility] [place] [facility] [address] [id number] [place] [address]- 5345 Aug, [facility] [place] [facility] [address] [id number] [place] [address]- 7732 Aug, [facility] [place] [facility] [address] [id number] [place] [address]- 9332 Jul, [facility] [place] [facility] [address] [id number] [place] [address]- 5274 Jul, [facility] [place] [facility] [address] [id number] [place] [address]- 8544 Jul, [facility] [place] [facility] [address] [id number] [place] [address]- 9114 29 Jun, 2011 [facility] [place] [facility] [address] [id number] [place] [address]- 3569 17 Jun, 2011 [facility] [place] [facility] [address] [id number] [place] [address]- 5593 13 Jun, 2011 [facility] [place] [facility] [address] [id number] [place] [address]- 5585 10 Jun, 2011 [facility] [place] [facility] [address] [id number] [place] [address]- 8246 07 Jun, 2011 [facility] [place] [facility] [address] [id number] [place] [address]- 4166 03 Jun, 2011 [facility] [address] [id number] [place] [address]- 3250 Jun, [facility] [place] [facility] [address] [id number] [place] [address]- 1326 May, [facility] [address] [id number] [place] [address]- 1747 May, [facility] [address] [id number] [place] [address]- 4087 May, [facility] [address] [id number] [place] [address]- 5080 May, [facility] [address] [id number] [place] [address]- 8918 Apr, [facility] [address] [id number] [place] [address]- 6127 Apr, [facility] [address] [id number] [place] [address]- 5331 Mar, [facility] [address] [id number] [place] [address]- 0477 Mar, [facility] [address] [id number] [place] [address]- 1255 Mar, [facility] [address] [id number] [place] [address]- 0831 Nov, [facility] [address] [id number] [place] [address]- 5100 13 May, 2010 [facility] [place] [facility] [address] [id number] [place] [address]- 0013 Apr, [facility] [place] [facility] [address] [id number] [place] [address]- 9316 13 Apr, 2010 [facility] [place] [facility] [address] [id number] [place] [address]- 0326 13 Apr, 2010 [facility] [address] [facility] [id number], [place] [address] 2541 Apr, [facility] [address] [facility] [id number], [place] [address]- 2546 Apr, [facility] [address] [facility] [id number], [place] [address]- 2546 Mar, [facility] [address] [id number], [place] [address]- 2546 Mar, [facility] [address] [facility] [id number] [place] [address]- 3920 Feb, [facility] [address] [id number], [place] [address]- 4666 Aug, [facility] [address], [place] [address] 2546 Jul, [facility] [address], [place] [address]- 4840 Jun, [facility] [address], [place] [address]- 1626 Apr, [facility] [address]65[address], [place] [address] 2546 Apr, [facility] [address]65[address], [place] [address]- 2546 Mar, [facility] [address] [facility] [id number], [place] [address]- 2546 Mar, [facility] [address] [facility] [id number], [place] [address] 2549 Feb, [facility] [address] [facility] [id number], [place] [address]- 2546 Dec, [facility] [address] [id number], [place] [address] 2546 Oct, IMMUNIZATIONS No Known Immunizations SOCIAL HISTORY Never Assessed REASON FOR VISIT dysuria, urinary frequency with little results. been like this for a month. also reports rash under her breasts...reports a lot of sweating under both breasts. hx of yeast in this area. itching under breast too. been like this for a year. rylie PLAN OF CARE Activity Details Follow Up prn Reason: VITAL SIGNS Height 66 in 2017-06-17 Weight 260.0 lbs 2017-06-17 Temperature 98.5 degrees Fahrenheit 2017-06-17 Heart Rate 84 bpm 2017-06-17 Respiratory Rate 20 2017-06-17 BMI 41.96 kg/m2 2017-06-17 Blood pressure systolic 136 mmHg 2017-06-17 Blood pressure diastolic 80 mmHg 2017-06-17 MEDICATIONS Medication Instructions Dosage Frequency Start Date End Date Duration Status Klor-Con M20 20 MEQ Orally Once a day 1 tablet with food 24h 90 Active Metoprolol Succinate ER 50 mg Orally Once a day 1 tablet 24h Active Pyridium 200 mg Orally Three times a day 1 tablet after meals 8h Jun, Jun, 05 days Active Xarelto 20 mg Orally Once a day 1 tablet with food 24h 90 Active Pepcid 20 mg Orally 2 times a day 1 tablet at bedtime 12h 90 Active Protonix 40 MG Orally Once a day 1 tablet 24h Not-Taking CarBAMazepine ER 200 MG Orally once a day in am & 2 tabs every pm 1 capsule Active ProAir HFA 108 (90 Base) mcg/act 2 puffs by Inhalation route 4 times per day PRN needs to keep appointment 9-4-14 Dec, Active Lisinopril 40 mg Orally Once a day 1 tablet 24h Mar, 90 days Active BusPIRone HCl 10 mg Orally Once a day 2 tablets 24h Active Flonase 50 MCG/ACT Nasally Once a day 1 spray in each nostril 24h Active Alprazolam 0.5 mg take 1 tablet by Oral route 2 times per day Jan, Active Nystatin 462121 UNIT/GM Externally Twice a day 1 application to affected area 12h Not-Taking Carafate 1 GM Orally 4 times a day 1 tablet on an empty stomach 6h Not-Taking Diltiazem CD 240 MG Orally Once a day 1 capsule 24h Not-Taking Pristiq 100 mg once daily Jan, Active Abilify 5 MG Orally Once a day 1 tablet 24h Active Macrobid 100 mg Orally every 12 hrs 1 capsule with food 12h Jun, Jun, 7 day(s) Active Amlodipine Besylate 10 mg Orally Once a day 1 tablet 24h 90 Active Viibryd 10 mg Orally Once a day 1 tablet 24h Active Hydrochlorothiazide 12.5 MG Orally Once a day 1 tablet 24h Active Nystatin-Triamcinolone 581929-8.1 UNIT/GM Externally Twice a day 1 application to affected area 12h Jun, Jun, 10 days Active Klor-Con M20 20 MEQ Orally Once a day 1 tablet with food 24h 90 days Active Nortriptyline HCl 25 MG Orally Once a day at bedtime 2 capsule Active RESULTS No Results PROCEDURES Procedure Date Ordered Result Body Site URINALYSIS, AUTO, W/O SCOPE Jun 17, 2017 LAB NOT BILLED BY [facility] Jun 17, 2017 [facility] VISIT ESTABLISHED PATIENT Jun 17, 2017 INSTRUCTIONS MEDICATIONS ADMINISTERED No Known Medications MEDICAL (GENERAL) HISTORY Type Description Date Medical History hypertension Medical History neuropathy Medical History depression Medical History anxiety Medical History Hyposmolality and/or hyponatremia Surgical History cleaned out left side of sinuses 2013 Surgical History colonscopy 09/03/15 Hospitalization History cellulitis 09/2013 Hospitalization History surgery 2013 Hospitalization History A Fib--[facility] 03/08/2016 Hospitalization History acute chest pain, hypertensive urgency, paroxsysmal htn-[facility] 05/10/16
--- OUTSIDE RECORDS SUMMARY | 2018-09-17 11:57 | XMS REPORT ---
Author Author JORDY DESIREE [facility] Address [address] [place] [address] Care Team Providers Care Reinforcing Bar Setter Name Role Phone DESIREE SPENCE Unavailable PROBLEMS Type Condition ICD9-CM Code [id number] Code Onset Dates Condition Status SNOMED Code Problem Hyponatremia E87.1 Active 75650228 Problem Paroxysmal atrial fibrillation I48.0 Active 120310604 Problem Chronic frontal sinusitis J32.1 Active 81068128 Problem Chronic kidney disease, unspecified CKD stage N18.9 Active 202452876 Problem Primary insomnia F51.01 Active 058992585 Problem Secondary pulmonary arterial hypertension I27.21 Active 06491552 Problem Seasonal allergies J30.2 Active 228536580 Problem Fasciculations of muscle R25.3 Active 77536946 Problem Other chronic gastritis without hemorrhage K29.50 Active 1420876 Problem BMI 40.0-44.9, adult Z68.41 Active 249650699 Problem Depression, unspecified depression type F32.9 Active 94199792 Problem Chronic migraine G43.709 Active 00233019 Problem Hidradenitis L73.2 Active 58207861 Problem Generalized anxiety disorder F41.1 Active 439836395 Problem Mild intermittent asthma without complication J45.20 Active 901621782 Problem Obstructive sleep apnea G47.33 Active 77425522 Problem Essential hypertension I10 Active 54372762 Problem Idiopathic peripheral neuropathy G60.9 Active 60873392 Problem Hyperlipidemia E78.5 Active 93460382 Problem Elevated alkaline phosphatase level R74.8 Active 991193652 Problem Vitamin D deficiency E55.9 Active 14076559 ALLERGIES No Information ENCOUNTERS Encounter Location Date Diagnosis [facility] [address] [facility] [id number] [address] Nov, [facility] [address] [id number] [address] Oct, Essential hypertension I10 and Chronic kidney disease, unspecified CKD stage N18.9 [place] [id number] [place] [address] 28348- 8231 Oct, Essential hypertension I10 and Chronic kidney disease, unspecified CKD stage N18.9 [place] [id number] [place] [address] 22664- 4827 Oct, [place] [address] [address]- [address] September, Medicare annual wellness visit, initial Z00.00 ; Mild intermittent asthma without complication J45.20 ; Generalized anxiety disorder F41.1 ; Depression, unspecified depression type F32.9 ; Paroxysmal atrial fibrillation I48.0 ; Obstructive sleep apnea G47.33 ; Hyponatremia E87.1 ; Need for hepatitis C screening test Z11.59 ; Encounter for immunization Z23 ; Secondary pulmonary arterial hypertension I27.21 and BMI 40.0-44.9, adult Z68.41 [place] [address] [address]- [address] 30 Aug, 2017 Essential hypertension I10 [facility] [address] [address] Jun, Dysuria R30.0 ; UTI symptoms R39.9 and Candidiasis of breast B37.89 [place] [address] 30591- 5733 Jun, Hyponatremia E87.1 [place] [address] 91487- 3906 Jun, Hyponatremia E87.1 [place] [address] 68480- 4852 Jun, Hyponatremia E87.1 [facility] [address] 03641- 2616 Jun, [place] [address] 58160- 9005 May, Hyponatremia E87.1 [facility] [id number] [place] [address] 32978- 9618 May, Hyponatremia E87.1 [facility] [id number] [place] [address] 77818- 5530 May, Hyponatremia E87.1 [facility] [id number] [place] [address] 05016- 7415 May, Hyponatremia E87.1 [facility] [id number] [place] [address] 68432- 1290 Apr, Hyponatremia E87.1 ; Fasciculations of muscle R25.3 and Hyperlipidemia E78.5 [facility] [id number] [place] [address] 16854- 1317 Apr, Cough R05 ; Hyponatremia E87.1 ; Fasciculations of muscle R25.3 ; Primary insomnia F51.01 ; Essential hypertension I10 ; Hyperlipidemia E78.5 ; Screening for breast cancer Z12.31 and BMI 40.0-44.9, adult Z68.41 [place] [id number] [place] [address] 15513- 7509 Apr, Essential hypertension I10 [facility] [id number] [place] [address] 16986- 1005 14 Mar, 2017 [facility] [id number] [place] [address] 28187- 6952 Mar, [facility] [id number] [place] [address] 69700- 7355 09 Mar, 2017 [facility] [id number] [place] [address] 99264- 4002 17 Feb, 2017 [facility] [id number] [place] [address] 57039- 7442 19 Jan, 2017 [facility] [id number] [place] [address] 52030- 9917 Dec, Essential hypertension I10 [facility] [address], [place] [address] Dec, [facility] [id number] [place] [address] 44396- 5406 Dec, Essential hypertension I10 [facility] [id number] [place] [address] 25922- 8250 Nov, [facility] [id number] [place] [address] 80374- 1159 Oct, Essential hypertension I10 [facility] [id number] [place] [address] 73937- 2882 Oct, Essential hypertension I10 [facility] [id number] [place] [address] 22469- 0023 Oct, [facility] [id number] [place] [address] 15000- 0895 September, [facility] [id number] [place] [address] 50565- 1906 September, Essential hypertension I10 [facility] [id number] [place] [address] 19648- 4860 September, [facility] [id number] [place] [address] 94114- 2986 September, Essential hypertension I10 ; Hyperlipidemia E78.5 and Hyponatremia E87.1 [facility] [address], [place] [address] 6183 September, Mild intermittent asthma without complication J45.20 ; Essential hypertension I10 ; Hyperlipidemia E78.5 ; Hyponatremia E87.1 and Dysuria R30.0 [facility] [id number] [place] [address] 67115- 5094 September, Other chronic gastritis without hemorrhage K29.50 ; Paroxysmal atrial fibrillation I48.0 and Essential hypertension I10 [facility] [id number] [place] [address] 37545- 8753 Aug, [facility] [id number] [place] [address] 70186- 1041 Jul, [facility] [id number] [place] [address] 74685- 4150 14 Jun, 2016 [facility] [id number] [place] [address] 40638 -6743 07 Jun, 2016 Dysuria R30.0 and Acute cystitis with hematuria N30.01 [facility] [id number] [place] [address] 94862- 8173 Jun, Essential hypertension I10 [facility] [address] 52874- 0636 May, Paroxysmal atrial fibrillation I48.0 [facility] [id number] [place] [address] 19146- 1111 May, Other chronic gastritis without hemorrhage K29.50 [facility] [id number] [place] [address] 35212- 3105 May, [facility] [id number] [place] [address] 70347- 9227 May, Hyponatremia E87.1 ; Essential hypertension I10 and Other chronic gastritis without hemorrhage K29.50 [facility] [id number] [place] [address] 30622- 1449 May, Hyponatremia E87.1 [facility] [id number] [place] [address] 41258- 3956 May, Hyponatremia E87.1 [facility] [id number] [place] [address] [id number] May, [facility] [id number] [place] [address] 70064- 0022 16 Apr, 2016 [facility] [id number] [place] [address] 34447- 8314 Apr, [facility] [id number] [place] [address] 71527- 7312 Mar, Essential hypertension I10 and Candidal intertrigo B37.2 [facility] [address] 64482- 8177 Mar, Hyponatremia E87.1 [facility] [address] 20029- 6396 Mar, [facility] [address] 12733- 1314 Mar, Hyponatremia E87.1 [place] [address] 12937- 6011 Mar, Essential hypertension I10 ; Hyponatremia E87.1 ; Slurred speech R47.81 ; Paroxysmal atrial fibrillation I48.0 and Elevated blood sugar R73.9 [facility] [address] 87093- 9300 Mar, [facility] [address] 98103- 1372 Mar, [facility] [address] 53948- 2323 Feb, [facility] [id number] [place] [address] 37729- 6400 Jan, [facility] [address] 75984- 6774 Dec, [facility] [id number] [place] [address] 11158 -5584 Nov, Scratched by cat, initial encounter W55.03XA and Other injury of unspecified body region T14.8 [facility] [id number] [place] [address] 16868- 1451 Nov, [facility] [id number] [place] [address] 41257- 5884 Oct, [place] [id number] [place] [address] 89269- 6564 September, [facility] [id number] [place] [address] 91167- 4518 Aug, Elevated alkaline phosphatase level R74.8 [facility] [id number] [place] [address] 71239- 4518 Jul, [facility] [address] 18599- 8097 Jun, Essential hypertension I10 and Bright red blood per rectum K62.5 [place] [id number] [place] [address] 83199- 7984 Jun, Elevated alkaline phosphatase level R74.8 [place] [id number] [place] [address] 06659- 6961 Jun, [facility] [id number] [place] [address] 75339- 8029 May, Essential hypertension I10 ; Hyperlipidemia E78.5 and Well woman exam (no gynecological exam) Z00.00 [place] [id number] [place] [address] 68961- 9786 May, [facility] [id number] [place] [address] 05068- 8321 May, [place] [id number] [place] [address] 90415- 9647 Mar, [facility] [id number] [place] [address] 44716- 3299 Mar, [place] [id number] [place] [address] 52918- 9516 Mar, [facility] [id number] [place] [address] 30468- 5537 Feb, Acute recurrent maxillary sinusitis J01.01 ; Asthma, unspecified, unspecified status 493.90 ; Seasonal allergies J30.2 and Cat allergies J30.81 [facility] [address] [address]- 6591 Feb, Upper respiratory tract infection, unspecified upper respiratory infection J06.9 [facility] [id number] [place] [address] 43743- 9788 Jan, [place] [id number] [place] [address] 20093- 3602 Jan, Dysphagia 787.20 and GERD (gastroesophageal reflux disease) 530.81 [place] [id number] [place] [address] 334036- 0044 Jan, Breast lesion 611.9 [place] [id number] [place] [address] 01531- 1582 Dec, Breast lesion 611.9 [place] [id number] [place] [address] 54188- 7760 Dec, Breast lesion 611.9 [place] [id number] [place] [address] 85711- 3146 Nov, Fatigue 780.79 and Hyperlipidemia 272.4 [place] [id number] [place] [address] 50317- 2277 Nov, Hypertension 401.9 ; Hyperlipidemia 272.4 ; Chronic frontal sinusitis 473.1 and Fatigue 780.79 [place] [id number] [place] [address] 13476- 2548 Nov, [place] [id number] [place] [address] 94011- 1819 Oct, [place] [id number] [place] [address] 89935- 1980 Oct, [place] [id number] [place] [address] 97106142- 2202 September, [place] [id number] [place] [address] 02612- 5406 September, [facility] [place] [facility] [address] [id number] [place] [address]- 4568 September, [facility] [place] [facility] [address] [id number] [place] [address]- 6015 September, [facility] [place] [facility] [address] [id number] [place] [address]- 3805 28 Aug, 2014 [facility] [place] [facility] [address] [id number] [place] [address]- 5793 14 Aug, 2014 [facility] [place] [facility] [address] [id number] [place] [address]- 8409 13 Aug, 2014 [facility] [place] [facility] [address] [id number] [place] [address]- 4335 20 Jul, 2014 [facility] [place] [facility] [address] [id number] [place] [address]- 4863 20 Jul, 2014 [facility] [place] [facility] [address] [id number] [place] [address]- 4710 19 Jul, 2014 [facility] [place] [facility] [address] [id number] [place] [address]- 2508 19 Jul, 2014 [facility] [place] [facility] [address] [id number] [place] [address]- 2183 18 Jul, 2014 [facility] [place] [facility] [address] [id number] [place] [address]- 6692 17 Jul, 2014 [facility] [place] [facility] [address] [id number] [place] [address]- 4405 17 Jul, 2014 [facility] [place] [facility] [address] [id number] [place] [address]- 8460 16 Jul, 2014 [facility] [place] [facility] [address] [id number] [place] [address]- 3895 16 Jul, 2014 [facility] [place] [facility] [address] [id number] [place] [address]- 3318 12 Jul, 2014 [facility] [place] [facility] [address] [id number] [place] [address]- 9496 Jul, [facility] [place] [facility] [address] [id number] [place] [address]- 9530 Jul, [facility] [place] [facility] [address] [id number] [place] [address]- 5776 Jul, [facility] [place] [facility] [address] [facility] [id number] [place] [address]- 9873 Jul, [facility] [place] [facility] [address] [id number] [place] [address]- 4611 Jul, [facility] [place] [facility] [address] [id number] [place] [address]- 0464 Jun, [facility] [place] [facility] [address] [id number] [place] [address]- 4416 Jun, [facility] [place] [facility] [address] [facility] [id number] [place] [address]- 2009 Jun, [facility] [place] [facility] [address] [facility] [id number] [place] [address]- 3507 Jun, [facility] [place] [facility] [address] [facility] [id number] [place] [address]- 8452 May, [facility] [place] [facility] [address] [facility] [id number] [place] [address]- 3671 May, [facility] [place] [facility] [address] [facility] [id number], [place] [address]- 2508 May, [facility] [place] [facility] [address] [id number], [place] [address]- 1301 May, [facility] [place] [facility] [address] [id number] [place] [address]- 7546 Apr, [facility] [place] [facility] [address] [id number] [place] [address]- 9347 Apr, [facility] [place] [facility] [address] [facility] [id number] [place] [address]- 5266 Apr, [facility] [place] [facility] [address] [id number] [place] [address]- 7256 Apr, [facility] [place] [facility] [address] [id number] [place] [address]- 5982 Apr, [facility] [place] [facility] [address] [id number] [place] [address]- 4194 Apr, [facility] [place] [facility] [address] [id number] [place] [address]- 7879 Mar, [facility] [place] [facility] [address] [id number] [place] [address]- 5059 Mar, [facility] [place] [facility] [address] [id number] [place] [address]- 2432 Mar, [facility] [place] [facility] [address] [id number] [place] [address]- 9301 Mar, [facility] [place] [facility] [address] [id number] [place] [address]- 1271 Mar, [facility] [place] [facility] [address] [id number] [place] [address]- 3678 Mar, [facility] [place] [facility] [address] [id number] [place] [address]- 7520 Mar, [facility] [place] [facility] [address] [id number] [place] [address]- 6022 Mar, [facility] [place] [facility] [address] [id number] [place] [address]- 8246 Mar, [facility] [place] [facility] [address] [id number] [place] [address]- 9518 Mar, [facility] [place] [facility] [address] [id number] [place] [address]- 1273 Mar, [facility] [place] [facility] [address] [id number] [place] [address]- 6271 Mar, [facility] [place] [facility] [address] [id number] [place] [address]- 0723 Mar, [facility] [place] [facility] [address] [id number] [place] [address]- 5927 Mar, [facility] [place] [facility] [address] [id number] [place] [address]- 4736 Mar, [facility] [place] [facility] [address] [id number] [place] [address]- 3958 Mar, [facility] [place] [facility] [address] [id number] [place] [address]- 2891 Mar, [facility] [place] [facility] [address] [id number] [place] [address]- 2217 Feb, [facility] [place] [facility] [address] [id number] [place] [address]- 6508 Feb, [facility] [place] [facility] [address] [id number] [place] [address]- 5379 Feb, [facility] [place] [facility] [address] [id number] [place] [address]- 4460 30 Feb, 2014 [facility] [place] [facility] [address] [id number] [place] [address]- 2448 29 Feb, 2014 [facility] [place] [facility] [address] [id number], [place] [address]- 4029 Feb, [facility] [place] [facility] [address] [id number], [place] [address]- 3511 Feb, [facility] [place] [facility] [address] [id number], [place] [address]- 7961 Feb, [facility] [place] [facility] [address] [id number] [place] [address]- 4634 Feb, [facility] [place] [facility] [address] [id number] [place] [address]- 4786 Feb, [facility] [place] [facility] [address] [id number], [place] [address]- 1442 16 Feb, 2014 [facility] [place] [facility] [address] [id number] [place] [address]- 4468 16 Feb, 2014 [facility] [place] [facility] [address] [id number] [place] [address]- 2078 15 Feb, 2014 [facility] [place] [facility] [address] [id number] [place] [address]- 8406 15 Feb, 2014 [facility] [place] [facility] [address] [id number] [place] [address]- 1900 08 Feb, 2014 [facility] [place] [facility] [address] [id number] [place] [address]- 3854 08 Feb, 2014 [facility] [place] [facility] [address] [id number] [place] [address]- 9848 Feb, [facility] [place] [facility] [address] [id number] [place] [address]- 0732 Feb, [facility] [place] [facility] [address] [id number] [place] [address]- 4390 Feb, [facility] [place] [facility] [address] [id number] [place] [address]- 7483 30 Sep, 2013 [facility] [place] [facility] [address] [id number] [place] [address] 2546 30 Sep, 2013 [facility] [place] [facility] [address] [id number] [place] [address]- 2544 29 Sep, 2013 [facility] [place] [facility] [address] [id number] [place] [address] 2546 29 Sep, 2013 [facility] [place] [facility] [address] [id number] [place] [address]- 2541 24 Sep, 2013 [facility] [place] [facility] [address] [id number] [place] [address] 2546 24 Sep, 2013 [facility] [place] [facility] [address] [id number] [place] [address]- 2546 10 Jan, 2013 [facility] [place] [facility] [address] [id number] [place] [address] 08 Jan, 2014 [facility] [place] [facility] [address] [id number] [place] [address] Jan, [facility] [place] [facility] [address] [id number] [place] [address] Dec, [facility] [place] [facility] [address] [id number] [place] [address] Dec, [facility] [place] [facility] [address] [id number] [place] [address] Dec, [facility] [place] [facility] [address] [id number] [place] [address] Dec, [facility] [place] [facility] [address] [id number] [place] [address] Dec, [facility] [place] [facility] [address] [id number] [place] [address] Dec, [facility] [place] [facility] [address] [id number] [place] [address] Dec, [facility] [place] [facility] [address] [id number] [place] [address] Dec, [facility] [place] [facility] [address] [id number] [place] [address] Dec, [facility] [place] [facility] [address] [id number] [place] [address] Nov, [facility] [place] [facility] [address] [id number] [place] [address] Nov, [facility] [place] [facility] [address] [id number] [place] [address] Nov, [facility] [place] [facility] [address] [id number] [place] [address] Nov, [facility] [place] [facility] [address] [id number] [place] [address] Nov, [facility] [place] [facility] [address] [id number] [place] [address] Nov, [facility] [place] [facility] [address] [id number] [place] [address] Oct, [facility] [place] [facility] [address] [id number] [place] [address] Oct, [facility] [place] [facility] [address] [id number] [place] [address]- [address] Oct, [facility] [place] [facility] [address] [id number] [place] [address]- [address] Oct, [facility] [place] [facility] [address] [id number] [place] [address] Oct, [facility] [place] [facility] [address] [id number] [place] [address]- [address] Oct, [facility] [place] [facility] [address] [id number] [place] [address]- [address] Oct, [facility] [place] [facility] [address] [id number] [place] [address]- [address] Oct, [facility] [place] [facility] [address] [id number] [place] [address] Oct, [facility] [place] [facility] [address] [id number] [place] [address]- [address] Oct, [facility] [place] [facility] [address] [id number], [place] [address] Oct, [facility] [place] [facility] [address] [id number], [place] [address] Oct, [facility] [place] [facility] [address] [id number] [place] [address] Oct, [facility] [place] [facility] [address] [id number] [place] [address]- [address] Oct, [facility] [place] [facility] [address] [id number] [place] [address] September, [facility] [place] [facility] [address] [id number] [place] [address] September, [facility] [address] [id number] [place] [address] September, [facility] [address] [id number] [place] [address]- [address] September, [facility] [address] [id number] [place] [address] September, [facility] [address] [id number] [place] [address] September, [facility] [address] [id number] [place] [address] September, [facility] [address] [id number] [place] [address] September, [facility] [address] [id number] [place] [address]- [address] September, [facility] [address] [id number] [place] [address] September, [facility] [address] [id number] [place] [address]- [address] September, [facility] [address] [id number] [place] [address] September, [facility] [address] [id number] [place] [address] September, [facility] [address] [id number] [place] [address] September, [facility] [place] [facility] [address] [id number] [place] [address] September, [facility] [address] [id number] [place] [address] September, [facility] [address] [id number] [place] [address] September, [facility] [place] [facility] [address] [id number] [place] [address] 6579 September, [facility] [place] [facility] [address] [id number] [place] [address] 3227 September, [facility] [place] [facility] [address] [id number] [place] [address] Aug, [facility] [place] [facility] [address] [id number] [place] [address] 7589 Aug, [facility] [place] [facility] [address] [id number] [place] [address] 64[address] Jul, [facility] [place] [facility] [address] [id number] [place] [address]- 7894 Jul, [facility] [place] [facility] [address] [id number] [place] [address] 6[address] Jul, [facility] [place] [facility] [address] [id number] [place] [address] 3261 Jul, [facility] [place] [facility] [address] [id number] [place] [address]- 4337 Jul, [facility] [place] [facility] [address] [id number] [place] [address] 2160 Jul, [facility] [place] [facility] [address] [id number] [place] [address]- 3077 Jul, [facility] [place] [facility] [address] [id number] [place] [address]- 6079 Jul, [facility] [place] [facility] [address] [id number] [place] [address] 5[address] Jul, [facility] [place] [facility] [address] [id number] [place] [address]- 0519 25 Jul, 2013 [facility] [place] [facility] [address] [id number] [place] [address]- [address] 14 Jul, 2013 [facility] [place] [facility] [address] [id number] [place] [address]- 1642 14 Jul, 2013 [facility] [place] [facility] [address] [id number] [place] [address] 6114 Jul, [facility] [place] [facility] [address] [id number] [place] [address]- 0520 Jul, [facility] [place] [facility] [address] [id number] [place] [address]- 0047 Jun, [facility] [place] [facility] [address] [id number] [place] [address]- 2363 Jun, [facility] [place] [facility] [address] [id number] [place] [address]- 0695 Jun, [facility] [place] [facility] [address] [id number] [place] [address]- 4195 Jun, [facility] [place] [facility] [address] [id number] [place] [address]- 5677 May, [facility] [place] [facility] [address] [id number] [place] [address]- 7692 May, [facility] [place] [facility] [address] [id number] [place] [address]- 0935 May, [facility] [place] [facility] [address] [id number] [place] [address]- 9751 May, [facility] [place] [facility] [address] [id number] [place] [address]- 9936 May, [facility] [place] [facility] [address] [id number] [place] [address]- 5286 Mar, [facility] [place] [facility] [address] [id number] [place] [address]- 5574 Mar, [facility] [place] [facility] [address] [id number] [place] [address]- 5483 Mar, [facility] [place] [facility] [address] [id number] [place] [address]- 0513 Mar, [facility] [place] [facility] [address] [id number] [place] [address]- 9818 Mar, [facility] [place] [facility] [address] [id number] [place] [address] 5619 Mar, [facility] [place] [facility] [address] [id number] [place] [address]- 1454 Feb, [facility] [place] [facility] [address] [id number] [place] [address] 2239 Feb, [facility] [place] [facility] [address] [id number] [place] [address]- 0497 Feb, [facility] [place] [facility] [address] [id number] [place] [address]- 6642 Feb, [facility] [place] [facility] [address] [id number] [place] [address]- 0362 Feb, [facility] [place] [facility] [address] [id number] [place] [address]- 0955 Feb, [facility] [place] [facility] [address] [id number] [place] [address]- 2587 Feb, [facility] [place] [facility] [address] [id number] [place] [address]- 8305 Feb, [facility] [place] [facility] [address] [id number] [place] [address]- 4005 Feb, [facility] [place] [facility] [address] [id number] [place] [address]- 3204 Feb, [facility] [place] [facility] [address] [id number] [place] [address]- 3906 Feb, [facility] [place] [facility] [address] [id number] [place] [address]- 7218 Feb, [facility] [place] [facility] [address] [id number] [place] [address]- 8878 Jan, [facility] [place] [facility] [address] [id number] [place] [address]- 9376 Jan, [facility] [address] [id number] [place] [address]- 7896 Dec, [facility] [place] [facility] [address] [id number] [place] [address]- 3076 Dec, [facility] [place] [facility] [address] [id number] [place] [address]- 9574 Nov, [facility] [place] [facility] [address] [id number] [place] [address]- 7396 Nov, [facility] [place] [facility] [address] [id number] [place] [address]- 4665 Nov, [facility] [place] [facility] [address] [id number] [place] [address]- 8708 Nov, [facility] [place] [facility] [address] [id number] [place] [address]- 9336 Nov, [facility] [place] [facility] [address] [id number] [place] [address]- 1852 Oct, [facility] [place] [facility] [address] [id number] [place] [address]- 5250 September, [facility] [place] [facility] [address] [id number] [place] [address]- 1123 Aug, [facility] [place] [facility] [address] [id number] [place] [address]- 6849 Jul, [facility] [place] [facility] [address] [id number] [place] [address] 2541 Jul, [facility] [place] [facility] [address] [id number] [place] [address]- 2544 Jul, [facility] [place] [facility] [address] [id number] [place] [address]- 4597 Jun, [facility] [place] [facility] [address] [id number] [place] [address]- 0481 Jun, [facility] [place] [facility] [address] [id number] [place] [address]- 9074 12 Jun, 2012 [facility] [place] [facility] [address] [id number] [place] [address]- 6689 Jun, [facility] [place] [facility] [address] [id number] [place] [address] 07 Jun, 2012 [facility] [place] [facility] [address] [id number] [place] [address]- 9821 May, [facility] [place] [facility] [address] [id number] [place] [address]- 7159 May, [facility] [place] [facility] [address] [id number] [place] [address]- 5118 Apr, [facility] [place] [facility] [address] [id number] [place] [address]- 3989 Apr, [facility] [place] [facility] [address] [id number] [place] [address]- 4305 Mar, [facility] [place] [facility] [address] [id number] [place] [address]- 3625 Mar, [facility] [place] [facility] [address] [id number] [place] [address]- 0157 Mar, [facility] [place] [facility] [address] [id number] [place] [address]- 9854 Mar, [facility] [place] [facility] [address] [id number] [place] [address]- 4554 Mar, [facility] [place] [facility] [address] [id number] [place] [address]- 0044 Mar, [facility] [place] [facility] [address] [id number] [place] [address]- 1272 Mar, [facility] [place] [facility] [address] [id number] [place] [address] Mar, [facility] [place] [facility] [address] [id number] [place] [address] 4044 Mar, [facility] [place] [facility] [address] [id number] [place] [address] 2541 Mar, [facility] [place] [facility] [address] [id number] [place] [address]- 0706 Feb, [facility] [place] [facility] [address] [id number] [place] [address] 2545 Feb, [facility] [place] [facility] [address] [id number] [place] [address]- 0395 Feb, [facility] [place] [facility] [address] [id number] [place] [address]- 1044 Feb, [facility] [place] [facility] [address] [id number] [place] [address]- 8166 Feb, [facility] [place] [facility] [address] [id number] [place] [address]- 2546 Feb, [facility] [place] [facility] [address] [id number] [place] [address]- 0852 Jan, [facility] [place] [facility] [address] [id number] [place] [address]- 1396 Jan, [facility] [place] [facility] [address] [id number] [place] [address]- 0685 Dec, [facility] [place] [facility] [address] [id number], [place] [address]- 2546 Dec, [facility] [place] [facility] [address] [id number], [place] [address]- 1035 Dec, [facility] [place] [facility] [address] [id number] [place] [address]- 2546 Nov, [facility] [place] [facility] [address] [id number], [place] [address]- 0616 September, [facility] [place] [facility] [address] [id number] [place] [address]- 2546 September, [facility] [place] [facility] [address] [id number] [place] [address]- 3599 September, [facility] [address] [id number] [place] [address]- 8420 September, [facility] [place] [facility] [address] [id number] [place] [address]- 7424 23 Aug, 2011 [facility] [place] [facility] [address] [id number] [place] [address]- 0060 Aug, [facility] [place] [facility] [address] [id number] [place] [address]- 1482 Aug, [facility] [address] [id number] [place] [address]- 2712 Aug, [facility] [place] [facility] [address] [facility] [id number] [place] [address]- 0544 05 Aug, 2011 [facility] [place] [facility] [address] [facility] [id number] [place] [address]- 3780 Jul, [facility] [place] [facility] [address] [id number] [place] [address]- 3325 05 Jul, 2011 [facility] [place] [facility] [address] [facility] [id number] [place] [address]- 1863 02 Jul, 2011 [facility] [place] [facility] [address] [facility] [id number] [place] [address]- 1306 29 Jun, 2011 [facility] [place] [facility] [address] [facility] [id number] [place] [address]- 1036 17 Jun, 2011 [facility] [place] [facility] [address] [facility] [id number] [place] [address]- 6494 13 Jun, 2011 [facility] [place] [facility] [address] [id number] [place] [address]- 6705 10 Jun, 2011 [facility] [place] [facility] [address] [facility] [id number] [place] [address]- 2546 07 Jun, 2011 [facility] [place] [facility] [address] [facility] [id number] [place] [address]- 8856 Jun, [facility] [address] [id number] [place] [address]- 3046 Jun, [facility] [place] [facility] [address] [id number] [place] [address]- 8053 May, [facility] [place] [facility] [address] [id number] [place] [address]- 3476 May, [facility] [place] [facility] [address] [id number] [place] [address]- 5683 May, [facility] [place] [facility] [address] [id number] [place] [address]- 4202 May, [facility] [place] [facility] [address] [id number] [place] [address]- 5671 Apr, [facility] [place] [facility] [address] [id number] [place] [address]- 6053 Apr, [facility] [place] [facility] [address] [id number] [place] [address]- 7835 Mar, [facility] [place] [facility] [address] [id number] [place] [address]- 1253 Mar, [facility] [place] [facility] [address] [id number] [place] [address]- 4339 Mar, [facility] [place] [facility] [address] [id number], [place] [address]- 9082 Nov, [facility] [place] [facility] [address] [id number], [place] [address]- 6107 13 May, 2010 [facility] [place] [facility] [address] [id number] [place] [address]- 5219 Apr, [facility] [place] [facility] [address] [id number] [place] [address]- 2602 13 Apr, 2010 [facility] [place] [facility] [address] [id number] [place] [address]- 1885 13 Apr, 2010 [facility] [place] [facility] [address], [place] [address] 2546 Apr, [facility] [address], [place] [address]- 6916 Apr, [facility] [address], [place] [address]- 6566 Mar, [facility] [address], [place] [address]- 6936 Mar, [facility] [address], [place] [address]- 8154 Feb, [facility] [address], [place] [address]- 2275 Aug, [facility] [address], [place] [address]- 2956 Jul, [facility] [address], [place] [address]- 3684 Jun, [facility] [address], [place] [address]- 4378 Apr, [facility] [address], [place] [address]- 0346 Apr, [facility] [address], [place] [address]- 4197 Mar, [facility] [address], [place] [address]- 3336 Mar, [facility] [address], [place] [address]- 4093 Feb, [facility] [address], [place] [address]- 3285 Dec, [facility] [address], [place] [address]- 2686 Oct, IMMUNIZATIONS No Known Immunizations SOCIAL HISTORY Never Assessed REASON FOR VISIT Lab (walk-in) PLAN OF CARE VITAL SIGNS MEDICATIONS Unknown Medications RESULTS No Results PROCEDURES Procedure Date Ordered Result Body Site [facility] Jun 17, 2017 VENIPUNCT, ROUTINE* Jun 17, 2017 INSTRUCTIONS MEDICATIONS ADMINISTERED No Known Medications MEDICAL (GENERAL) HISTORY Type Description Date Medical History hypertension Medical History neuropathy Medical History depression Medical History anxiety Medical History Hyposmolality and/or hyponatremia Surgical History cleaned out left side of sinuses 2013 Surgical History colonscopy 09/03/15 Hospitalization History cellulitis 09/2013 Hospitalization History surgery 2013 Hospitalization History A Fib--[facility] 03/08/2016 Hospitalization History acute chest pain, hypertensive urgency, paroxsysmal htn-[facility] 05/10/16
--- OUTSIDE RECORDS SUMMARY | 2018-09-17 11:58 | XMS REPORT ---
Author Author DESIREE SPENCE [employer] Address Unknown Phone Unavailable Care Team Providers Care Forensic Specialist Name Role Phone DESIREE SPENCE CP Unavailable Allergies No Known Allergies Problems Problem Type Condition ICD-9 Code Onset Dates Condition Status Problem Persistent disorder of initiating or maintaining sleep 307.42 Active Problem Unspecified hereditary and idiopathic peripheral neuropathy 356.9 Active Problem Hidradenitis 705.83 Active Problem Chronic frontal sinusitis 473.1 Active Problem Headache 784.0 Active Problem Hyperlipidemia 272.4 Active Problem Elevated alkaline phosphatase level 790.5 Active Problem Hypertension 401.9 Active Problem Obstructive sleep apnea (adult) (pediatric) 327.23 Active Problem Anxiety state, unspecified 300.00 Active Problem Unspecified vitamin D deficiency 268.9 Active Problem Asthma, unspecified, unspecified status 493.90 Active Medications Medication Code System Code Instructions Start Date End Date Status Dosage Ambien [facility] [address]-23 5 MG July 18, 2014 take 1 tablet by Oral route at bedtime 1 time per day Results No Known Results Summary Purpose e[employer] Submission
--- OUTSIDE RECORDS SUMMARY | 2018-09-17 11:58 | XMS REPORT ---
Author Author DESIREE SPENCE [employer] Address Unknown Phone Unavailable Care Team Providers Care Director Vaccine Name Role Phone DESIREE SPENCE CP Unavailable [...] Start Date End Date Status Dosage Ambien [facility] [address]-73 5 MG July 18, 2014 take 1 tablet by Oral route at bedtime 1 time per day Results No Known Results Summary Purpose [employer] Submission
--- OUTSIDE RECORDS SUMMARY | 2018-09-17 11:58 | XMS REPORT ---
Author Author JORDY DESIREE Organization [facility] Address [address] [place] [address] Care Team Providers Care Network Account Manager Name Role Phone CAMPBELL SPENCEHANY Unavailable PROBLEMS Type Condition ICD9-CM Code VHO22-JM Code Onset Dates Condition Status SNOMED Code Problem Elevated alkaline phosphatase level R74.8 Active 286706806 Problem Essential hypertension I10 Active 28624273 Problem Obstructive sleep apnea G47.33 Active 94566881 Problem Other chronic gastritis without hemorrhage K29.50 Active 8711913 Problem Paroxysmal atrial fibrillation I48.0 Active 409713314 Problem Vitamin D deficiency E55.9 Active 48248042 Problem Hyperlipidemia E78.5 Active 65059681 Problem Chronic frontal sinusitis J32.1 Active 80278799 Problem Hyponatremia E87.1 Active 31508624 Problem Seasonal allergies J30.2 Active 912361934 Problem Mild intermittent asthma without complication J45.20 Active 369935703 Problem Chronic migraine G43.709 Active 90817216 Problem Primary insomnia F51.01 Active 201264675 Problem Hidradenitis L73.2 Active 07662017 Problem Generalized anxiety disorder F41.1 Active 170778141 Problem Idiopathic peripheral neuropathy G60.9 Active 86629993 ALLERGIES No Information SOCIAL HISTORY Never Assessed PLAN OF CARE VITAL SIGNS MEDICATIONS Unknown [...]
--- OUTSIDE RECORDS SUMMARY | 2018-09-17 11:58 | XMS REPORT ---
Author Author JORDY DESIREE Organization [facility] Address [address] [place] [address] Care Team Providers Care Machinist Brake Name Role Phone SANTIAGO SPENCEY Unavailable PROBLEMS Type Condition ICD9-CM Code TSW75-WY Code Onset Dates Condition Status SNOMED Code Problem Essential hypertension I10 Active 14161142 Problem Vitamin D deficiency E55.9 Active 31262835 Problem Hyperlipidemia E78.5 Active 48224432 Problem Depression, unspecified depression type F32.9 Active 04096226 Problem Fasciculations of muscle R25.3 Active 00856765 Problem Chronic frontal sinusitis J32.1 Active 43448809 Problem Hyponatremia E87.1 Active 86666690 Problem Other chronic gastritis without hemorrhage K29.50 Active 6296097 Problem Paroxysmal atrial fibrillation I48.0 Active 097299577 Problem Primary insomnia F51.01 Active 986597678 Problem Generalized anxiety disorder F41.1 Active 926980016 Problem Seasonal allergies J30.2 Active 791508039 Problem Hidradenitis L73.2 Active 32196402 Problem Idiopathic peripheral neuropathy G60.9 Active 12435678 Problem Mild intermittent asthma without complication J45.20 Active 415554481 Problem Elevated alkaline phosphatase level R74.8 Active 677588767 Problem Chronic migraine G43.709 Active 65971944 Problem Obstructive sleep apnea G47.33 Active 87594621 ALLERGIES No Information ENCOUNTERS Encounter Location Date Diagnosis [facility] [id number] [place] [address] 83178- 9418 September, [facility] [id number] [place] [address] 68289 -4667 Jun, Dysuria R30.0 ; UTI symptoms R39.9 and Candidiasis of breast B37.89 [facility] [id number] [place] [address] 62620- 4705 Jun, Hyponatremia E87.1 [facility] [address], [place] [address] 4804 Jun, Hyponatremia E87.1 [facility] [id number] [place] [address] 94973- 8498 Jun, Hyponatremia E87.1 [facility] [id number] [place] [address] 52837- 5966 Jun, [facility] [id number] [place] [address] 61059- 3508 May, Hyponatremia E87.1 [facility] [id number] [place] [address] 96436- 8588 May, Hyponatremia E87.1 [facility] [id number] [place] [address] 40424- 4522 May, Hyponatremia E87.1 [facility] [id number] [place] [address] 03400- 4964 May, Hyponatremia E87.1 [facility] [id number] [place] [address] 92809- 4363 Apr, Hyponatremia E87.1 ; Fasciculations of muscle R25.3 and Hyperlipidemia E78.5 [place] [address] [place] [address] 83084- 2383 Apr, Cough R05 ; Hyponatremia E87.1 ; Fasciculations of muscle R25.3 ; Primary insomnia F51.01 ; Essential hypertension I10 ; Hyperlipidemia E78.5 ; Screening for breast cancer Z12.31 and BMI 40.0-44.9, adult Z68.41 [facility] [id number] [place] [address] 97998- 1514 Apr, Essential hypertension I10 [facility] [id number] [place] [address] 88899- 8064 Mar, [facility] [address] [place] [address]- 8652 Mar, [facility] [address], [place] [address] 4170 Mar, [facility] [address] [address]- 1734 Feb, [facility] [id number] [place] [address] 20565- 3486 Jan, [facility] [address], [place] [address]- 0422 Dec, Essential hypertension I10 [facility] [id number] [place] [address], [place] [address]- 9733 Dec, [facility] [address], [place] [address]- 6145 Dec, Essential hypertension I10 [facility] [id number] [place] [address] 47542- 3200 Nov, [facility] [address], [place] [address]- 7519 Oct, Essential hypertension I10 [facility] [address], [place] [address]- 9728 Oct, Essential hypertension I10 [facility] [address], [place] [address]- 2740 Oct, [facility] [address], [place] [address]- 7825 September, [facility] [address], [place] [address]- 4181 September, Essential hypertension I10 [facility] [address], [place] [address]- 6544 September, [facility] [address], [place] [address]- 9239 September, Essential hypertension I10 ; Hyperlipidemia E78.5 and Hyponatremia E87.1 [facility] [place] [facility] [id number] [place] [address] 95411- 0195 September, Mild intermittent asthma without complication J45.20 ; Essential hypertension I10 ; Hyperlipidemia E78.5 ; Hyponatremia E87.1 and Dysuria R30.0 [facility] [id number] [place] [address] 56598- 5355 September, Other chronic gastritis without hemorrhage K29.50 ; Paroxysmal atrial fibrillation I48.0 and Essential hypertension I10 [place] [id number] [place] [address] 93834- 0388 Aug, [place] [address] 70679- 8129 Jul, [facility] [id number] [place] [address] 67383- 1948 14 Jun, 2016 [facility] [id number] [place] [address] 05652 -9409 Jun, Dysuria R30.0 and Acute cystitis with hematuria N30.01 [place] [id number] [place] [address] 55343- 2927 Jun, Essential hypertension I10 [place] [id number] [place] [address] 98144- 4119 May, Paroxysmal atrial fibrillation I48.0 [place] [id number] [place] [address] 22144- 8527 May, Other chronic gastritis without hemorrhage K29.50 [facility] [id number] [place] [address] 10162- 1463 May, [facility] [id number] [place] [address] 25460- 0582 May, Hyponatremia E87.1 ; Essential hypertension I10 and Other chronic gastritis without hemorrhage K29.50 [place] [id number] [place] [address] 73407- 0599 May, Hyponatremia E87.1 [facility] [id number] [place] [address] 31415- 0014 May, Hyponatremia E87.1 [facility] [address] [id number] May, 2016 [facility] [id number] [place] [address] 86901- 0646 16 Apr, 2016 [facility] [id number] [place] [address] 01722- 7978 Apr, [facility] [id number] [place] [address] 43672- 3422 Mar, Essential hypertension I10 and Candidal intertrigo B37.2 [facility] [id number] [place] [address] 76969- 2438 Mar, Hyponatremia E87.1 [facility] [id number] [place] [address] 44248- 5607 14 Mar, 2016 [facility] [id number] [place] [address] 02424- 0119 Mar, Hyponatremia E87.1 [facility] [id number] [place] [address] 95538- 5136 09 Mar, 2016 Essential hypertension I10 ; Hyponatremia E87.1 ; Slurred speech R47.81 ; Paroxysmal atrial fibrillation I48.0 and Elevated blood sugar R73.9 [facility] [id number] [place] [address] 96540- 5631 Mar, [facility] [id number] [place] [address] 03820- 5834 Mar, [facility] [id number] [place] [address] 74676- 7399 Feb, [facility] [id number] [place] [address] 57328- 5881 15 Jan, 2016 [facility] [address], [place] [address]- 2213 Dec, [facility] [address], [place] [address] -0923 Nov, Scratched by cat, initial encounter W55.03XA and Other injury of unspecified body region T14.8 [facility] [address], [place] [address]- 1606 Nov, [facility] [id number] [place] [address] 28738- 7082 Oct, [facility] [id number] [place] [address] 18488- 9825 September, [facility] [id number] [place] [address] 92885- 4233 Aug, Elevated alkaline phosphatase level R74.8 [facility] [id number] [place] [address] 63936- 0868 Jul, [facility] [address] [place] [address] 93431- 4875 Jun, Essential hypertension I10 and Bright red blood per rectum K62.5 [place] [address], [place] [address]- 2826 Jun, Elevated alkaline phosphatase level R74.8 [place] [address], [place] [address]- 2623 Jun, [facility] [address] [place] [address] 27646- 8094 May, Essential hypertension I10 ; Hyperlipidemia E78.5 and Well woman exam (no gynecological exam) Z00.00 [place] [address], [place] [address]- 8293 May, [facility] [address] [address]- 7175 May, [facility] [id number] [place] [address] 24608- 5139 Mar, [place] [id number] [place] [address] 22125- 3226 Mar, [place] [id number] [place] [address] 06672- 8849 Mar, [place] [address] 43212- 3019 Feb, Acute recurrent maxillary sinusitis J01.01 ; Asthma, unspecified, unspecified status 493.90 ; Seasonal allergies J30.2 and Cat allergies J30.[address] 57128- 1185 Feb, Upper respiratory tract infection, unspecified upper respiratory infection J06.[address] 14335- 3437 Jan, [place] [id number] [place] [address] 70834- 4821 Jan, Dysphagia 787.20 and GERD (gastroesophageal reflux disease) 530.[address] [id number] [place] [address] 45762- 6311 Jan, Breast lesion 611.9 [place] [id number] [place] [address] 39031- 1006 Dec, Breast lesion 611.9 [place] [id number] [place] [address] 55659- 2018 Dec, Breast lesion 611.9 [place] [id number] [place] [address] 96260- 8427 Nov, Fatigue 780.79 and Hyperlipidemia 272.4 [address] [id number] [place] [address] [id number]- 3440 Nov, Hypertension 401.9 ; Hyperlipidemia 272.4 ; Chronic frontal sinusitis 473.1 and Fatigue 780.79 [address] [place] [address]- 9182 08 Nov, 2014 [facility] [place] [facility] [address] [id number] [place] [address]- 1395 Oct, [facility] [place] [facility] [address] [id number] [place] [address]- 6652 Oct, [facility] [place] [facility] [address] [id number] [place] [address]- 0619 September, [facility] [place] [facility] [address] [id number] [place] [address]- 7624 September, [facility] [place] [facility] [address] [id number] [place] [address]- 2062 September, [facility] [place] [facility] [address] [id number] [place] [address]- 9616 September, [facility] [place] [facility] [address] [id number] [place] [address]- 2071 Aug, [facility] [place] [facility] [address] [id number] [place] [address]- 1731 14 Aug, 2014 [facility] [place] [facility] [address] [id number] [place] [address]- 8978 Aug, [facility] [place] [facility] [address] [id number] [place] [address]- 5760 Jul, [facility] [place] [facility] [address] [id number] [place] [address]- 0025 20 Jul, 2014 [facility] [place] [facility] [address] [id number] [place] [address]- 8117 Jul, [facility] [place] [facility] [address] [id number] [place] [address]- 2096 19 Jul, 2014 [facility] [place] [facility] [address] [id number] [place] [address]- 2286 18 Jul, 2014 [facility] [place] [facility] [address] [id number] [place] [address]- 2501 17 Jul, 2014 [facility] [place] [facility] [address] [id number] [place] [address]- 1482 17 Jul, 2014 [facility] [place] [facility] [address] [id number] [place] [address]- 0387 Jul, [facility] [place] [facility] [address] [id number] [place] [address]- 1312 16 Jul, 2014 [facility] [place] [facility] [address] [id number] [place] [address]- 9926 Jul, [facility] [place] [facility] [address] [id number] [place] [address]- 3123 Jul, [facility] [place] [facility] [address] [id number] [place] [address]- 4693 Jul, [facility] [place] [facility] [address] [id number] [place] [address]- 9008 Jul, [facility] [place] [facility] [address] [id number] [place] [address]- 4758 Jul, [facility] [place] [facility] [address] [id number] [place] [address]- 0234 Jul, [facility] [place] [facility] [address] [id number] [place] [address]- 0253 Jun, [facility] [place] [facility] [address] [id number] [place] [address]- 3751 Jun, [facility] [place] [facility] [address] [id number], [place] [address]- 6350 Jun, [facility] [place] [facility] [address] [id number] [place] [address]- 3078 Jun, [facility] [place] [facility] [address] [id number] [place] [address]- 9915 May, [facility] [place] [facility] [address] [id number] [place] [address]- 5751 May, [facility] [place] [facility] [address] [id number] [place] [address]- 3775 13 May, 2014 [facility] [place] [facility] [address] [id number] [place] [address]- 0982 May, [facility] [place] [facility] [address] [id number] [place] [address]- 0673 Apr, [facility] [place] [facility] [address] [id number] [place] [address]- 3164 Apr, [facility] [place] [facility] [address] [id number] [place] [address]- 2199 Apr, [facility] [place] [facility] [address] [id number] [place] [address]- 3086 Apr, [facility] [place] [facility] [address] [id number] [place] [address]- 0609 Apr, [facility] [place] [facility] [address] [facility] [id number] [place] [address]- 2608 Apr, [facility] [place] [facility] [address] [id number] [place] [address]- 7251 Mar, [facility] [place] [facility] [address] [id number] [place] [address]- 8535 Mar, [facility] [place] [facility] [address] [facility] [id number] [place] [address]- 5937 Mar, [facility] [place] [facility] [address] [id number] [place] [address]- 9680 Mar, [facility] [place] [facility] [address] [id number] [place] [address]- 1621 Mar, [facility] [place] [facility] [address] [id number] [place] [address]- 3433 Mar, [facility] [place] [facility] [address] [id number] [place] [address]- 5973 Mar, [facility] [place] [facility] [address] [facility] [id number] [place] [address]- 2358 Mar, [facility] [place] [facility] [address] [id number] [place] [address]- 2357 Mar, [facility] [place] [facility] [address] [id number] [place] [address]- 1738 Mar, [facility] [place] [facility] [address] [id number] [place] [address]- 4069 Mar, [facility] [place] [facility] [address] [id number] [place] [address]- 2823 Mar, [facility] [place] [facility] [address] [id number] [place] [address]- 2400 Mar, [facility] [place] [facility] [address] [id number] [place] [address]- 2945 Mar, [facility] [place] [facility] [address] [id number] [place] [address]- 0363 Mar, [facility] [place] [facility] [address] [id number] [place] [address]- 5937 Mar, [facility] [place] [facility] [address] [id number] [place] [address]- 9317 Mar, [facility] [place] [facility] [address] [id number] [place] [address]- 2700 Feb, [facility] [place] [facility] [address] [facility] [id number] [place] [address]- 7402 Feb, [facility] [place] [facility] [address] [id number] [place] [address]- 1713 Feb, [facility] [place] [facility] [address] [id number] [place] [address]- 4553 Feb, [facility] [place] [facility] [address] [id number] [place] [address]- 6456 Feb, [facility] [place] [facility] [address] [id number] [place] [address]- 4182 Feb, [facility] [place] [facility] [address] [id number] [place] [address]- 0372 Feb, [facility] [place] [facility] [address] [id number] [place] [address]- 5975 Feb, [facility] [place] [facility] [address] [id number] [place] [address]- 1610 Feb, [facility] [place] [facility] [address] [id number] [place] [address]- 1025 Feb, [facility] [place] [facility] [address] [id number] [place] [address]- 3639 Feb, [facility] [place] [facility] [address] [id number] [place] [address]- 8755 Feb, [facility] [place] [facility] [address] [id number] [place] [address]- 8215 Feb, [facility] [place] [facility] [address] [id number] [place] [address]- 7821 Feb, [facility] [place] [facility] [address] [id number] [place] [address]- 7918 Feb, [facility] [place] [facility] [address] [id number] [place] [address]- 7529 Feb, [facility] [place] [facility] [address] [id number], [place] [address]- 9673 Feb, [facility] [place] [facility] [address] [id number], [place] [address]- 5736 Feb, [facility] [place] [facility] [address] [id number], [place] [address]- 8059 Feb, [facility] [place] [facility] [address] [id number] [place] [address]- 6292 30 Jan, 2014 [facility] [place] [facility] [address] [id number] [place] [address]- 8010 30 Jan, 2014 [facility] [place] [facility] [address] [id number] [place] [address]- 5690 29 Jan, 2014 [facility] [place] [facility] [address] [id number] [place] [address]- 2007 29 Jan, 2014 [facility] [place] [facility] [address] [id number] [place] [address]- 3848 24 Jan, 2014 [facility] [place] [facility] [address] [id number] [place] [address]- 9686 24 Jan, 2014 [facility] [place] [facility] [address] [id number] [place] [address]- 5270 Jan, [facility] [place] [facility] [address] [id number] [place] [address]- 8126 Jan, [facility] [place] [facility] [address] [id number] [place] [address]- 7319 Jan, [facility] [place] [facility] [address] [id number] [place] [address]- 5278 Dec, [facility] [place] [facility] [address] [id number] [place] [address]- 0061 Dec, [facility] [place] [facility] [address] [id number] [place] [address]- 1391 Dec, [facility] [place] [facility] [address] [id number] [place] [address]- 7706 Dec, [facility] [place] [facility] [address] [id number] [place] [address]- 9849 Dec, [facility] [place] [facility] [address] [id number] [place] [address] Dec, [facility] [place] [facility] [address] [id number] [place] [address] Dec, [facility] [place] [facility] [address] [id number] [place] [address] Dec, [facility] [place] [facility] [address] [id number] [place] [address] Dec, [facility] [place] [facility] [address] [id number] [place] [address] Nov, [facility] [place] [facility] [address] [id number] [place] [address] Nov, [facility] [place] [facility] [address] [id number] [place] [address] Nov, [facility] [place] [facility] [address] [id number] [place] [address] Nov, [facility] [place] [facility] [address] [id number] [place] [address] Nov, [facility] [place] [facility] [address] [id number] [place] [address] Nov, [facility] [place] [facility] [address] [id number] [place] [address] Oct, [facility] [place] [facility] [address] [id number] [place] [address] Oct, [facility] [place] [facility] [address] [id number] [place] [address] Oct, [facility] [place] [facility] [address] [id number] [place] [address] Oct, [facility] [place] [facility] [address] [id number] [place] [address] Oct, [facility] [place] [facility] [address] [id number] [place] [address] Oct, [facility] [place] [facility] [address] [id number] [place] [address] Oct, [facility] [place] [facility] [address] [id number] [place] [address] Oct, [facility] [place] [facility] [address] [id number] [place] [address] Oct, [facility] [place] [facility] [address] [id number] [place] [address] Oct, [facility] [place] [facility] [address] [id number] [place] [address]658 Oct, [facility] [place] [facility] [address] [id number] [place] [address] Oct, [facility] [place] [facility] [address] [id number] [place] [address] Oct, [facility] [place] [facility] [address] [id number] [place] [address] Oct, [facility] [place] [facility] [address] [id number] [place] [address] 7934 September, [facility] [place] [facility] [address] [id number] [place] [address] September, [facility] [place] [facility] [address] [id number] [place] [address] September, [facility] [place] [facility] [address] [id number] [place] [address]- 69[address] September, [facility] [place] [facility] [address] [id number] [place] [address]- 4769 September, [facility] [place] [facility] [address] [id number] [place] [address] September, [facility] [place] [facility] [address] [id number] [place] [address] September, [facility] [place] [facility] [address] [id number] [place] [address] September, [facility] [place] [facility] [address] [id number] [place] [address] 8828 September, [facility] [place] [facility] [address] [id number] [place] [address] 78[address] September, [facility] [place] [facility] [address] [id number] [place] [address] 60[address] September, [facility] [place] [facility] [address] [id number] [place] [address] 4[address] September, [facility] [place] [facility] [address] [id number] [place] [address] 8820 September, [facility] [address] [id number] [place] [address] September, [facility] [address] [id number] [place] [address] 60[address] September, [facility] [address] [id number] [place] [address] 3506 September, [facility] [address] [id number] [place] [address] September, [facility] [address] [id number] [place] [address] 16[address] September, [facility] [address] [id number] [place] [address] 9708 September, [facility] [address] [id number] [place] [address] Aug, [facility] [address] [id number] [place] [address] Aug, [facility] [address] [id number] [place] [address] Jul, [facility] [address] [id number] [place] [address] Jul, [facility] [place] [facility] [address] [id number] [place] [address] Jul, [facility] [place] [facility] [address] [id number] [place] [address] Jul, [facility] [place] [facility] [address] [id number] [place] [address] Jul, [facility] [place] [facility] [address] [id number] [place] [address] Jul, [facility] [place] [facility] [address] [id number] [place] [address] 1280 Jul, [facility] [place] [facility] [address] [id number] [place] [address] 85[address] Jul, [facility] [place] [facility] [address] [id number] [place] [address]073 Jul, [facility] [place] [facility] [address] [id number] [place] [address] Jul, [facility] [place] [facility] [address] [id number] [place] [address] 2853 Jul, [facility] [place] [facility] [address] [id number] [place] [address] 2499 14 Jul, 2013 [facility] [place] [facility] [address] [id number] [place] [address] Jul, [facility] [place] [facility] [address] [id number] [place] [address] Jul, [facility] [place] [facility] [address] [id number] [place] [address]- 4475 10 Jun, 2013 [facility] [place] [facility] [address] [id number] [place] [address]- 5127 10 Jun, 2013 [facility] [place] [facility] [address] [id number] [place] [address]- 4111 10 Jun, 2013 [facility] [place] [facility] [address] [id number] [place] [address] 6[address] Jun, [facility] [place] [facility] [address] [id number] [place] [address] 2891 May, [facility] [place] [facility] [address] [id number] [place] [address]- 7772 May, [facility] [place] [facility] [address] [id number] [place] [address] 8517 May, [facility] [place] [facility] [address] [id number] [place] [address]- 5399 May, [facility] [place] [facility] [address] [id number] [place] [address]- 9316 08 May, 2013 [facility] [place] [facility] [address] [id number] [place] [address]- 2044 14 Mar, 2013 [facility] [place] [facility] [address] [id number] [place] [address]- 3144 14 Mar, 2013 [facility] [place] [facility] [address] [id number] [place] [address]- 5365 07 Mar, 2013 [facility] [place] [facility] [address] [id number] [place] [address]- 5071 07 Mar, 2013 [facility] [place] [facility] [address] [id number] [place] [address]- 2760 Mar, [facility] [place] [facility] [address] [id number] [place] [address]- 3009 Mar, [facility] [place] [facility] [address] [id number] [place] [address]- 0577 Feb, [facility] [place] [facility] [address] [id number] [place] [address]555 Feb, [facility] [place] [facility] [address] [id number] [place] [address]- 2173 Feb, [facility] [place] [facility] [address] [id number] [place] [address]- 5295 Feb, [facility] [place] [facility] [address] [id number] [place] [address]- 3465 24 Feb, 2013 [facility] [place] [facility] [address] [id number] [place] [address]- 4736 Feb, [facility] [place] [facility] [address] [id number] [place] [address]- 4231 Feb, [facility] [place] [facility] [address] [id number] [place] [address] 1169 Feb, [facility] [place] [facility] [address] [id number] [place] [address]- 8[address] 17 Feb, 2013 [facility] [place] [facility] [address] [id number] [place] [address] 8589 Feb, [facility] [place] [facility] [address] [id number] [place] [address]- 1807 Feb, [facility] [place] [facility] [address] [id number] [place] [address]- 9229 Feb, [facility] [place] [facility] [address] [id number] [place] [address]856 Jan, [facility] [place] [facility] [address] [id number] [place] [address] 0416 Jan, [facility] [place] [facility] [address] [id number] [place] [address] 3996 Dec, [facility] [place] [facility] [address] [id number] [place] [address]- 6922 Dec, [facility] [place] [facility] [address] [id number] [place] [address]- 4394 Nov, [facility] [place] [facility] [address] [id number] [place] [address]- 2612 Nov, [facility] [place] [facility] [address] [id number] [place] [address]- 5956 Nov, [facility] [place] [facility] [address] [id number] [place] [address] 5434 Nov, [facility] [place] [facility] [address] [id number] [place] [address]- 9588 Nov, [facility] [place] [facility] [address] [id number] [place] [address]- 6535 Oct, [facility] [place] [facility] [address] [id number] [place] [address]- 8667 September, [facility] [place] [facility] [address] [id number] [place] [address]- 4588 Aug, [facility] [place] [facility] [address] [id number] [place] [address]- 8536 Jul, [facility] [address] [id number] [place] [address] 5413 Jul, [facility] [address] [id number] [place] [address]851 Jul, [facility] [address] [facility] [id number] [place] [address] 4517 Jun, [facility] [address] [id number] [place] [address]- 9415 14 Jun, 2012 [facility] [address] [id number] [place] [address]- 5927 Jun, [facility] [address] [facility] [id number] [place] [address] 6816 Jun, [facility] [address] [facility] [id number] [place] [address]- 0512 Jun, [facility] [address] [id number] [place] [address] 2756 May, [facility] [address] [facility] [id number] [place] [address]- 9773 May, [facility] [address] [facility] [id number] [place] [address]- 9571 Apr, [facility] [address] [facility] [id number] [place] [address]- 7604 Apr, [facility] [place] [facility] [address] [id number], [place] [address] Mar, [facility] [place] [facility] [address] [id number] [place] [address]- 1761 Mar, [facility] [place] [facility] [address] [facility] [id number] [place] [address]- 7431 Mar, [facility] [place] [facility] [address] [facility] [id number] [place] [address]- 7071 Mar, [facility] [place] [facility] [address] [id number] [place] [address]- 7228 Mar, [facility] [place] [facility] [address] [id number] [place] [address]- 9324 Mar, [facility] [place] [facility] [address] [id number] [place] [address]- 9815 Mar, [facility] [place] [facility] [address] [id number] [place] [address]- 5715 Mar, [facility] [place] [facility] [address] [id number] [place] [address]- 3359 Mar, [facility] [place] [facility] [address] [id number] [place] [address]- 6472 Mar, [facility] [place] [facility] [address] [id number] [place] [address] Feb, [facility] [place] [facility] [address] [id number] [place] [address]- 7936 Feb, [facility] [place] [facility] [address] [id number] [place] [address]- 1515 Feb, [facility] [place] [facility] [address] [id number] [place] [address]- 7061 Feb, [facility] [place] [facility] [address] [facility] [id number] [place] [address] Feb, [facility] [place] [facility] [address] [id number] [place] [address]- 9831 Feb, [facility] [place] [facility] [address] [id number] [place] [address]- 8670 Jan, [facility] [place] [facility] [address] [id number] [place] [address]- 3196 Jan, [facility] [place] [facility] [address] [id number] [place] [address]- 4604 Dec, [facility] [place] [facility] [address] [id number] [place] [address]- 7441 Dec, [facility] [address] [id number] [place] [address]- 4221 Dec, [facility] [place] [facility] [address] [id number] [place] [address]- 7346 Nov, [facility] [place] [facility] [address] [id number] [place] [address]- 7802 September, [facility] [place] [facility] [address] [id number] [place] [address]- 5938 September, [facility] [address] [id number] [place] [address]- 0434 September, [facility] [place] [facility] [address] [id number] [place] [address]- 0924 September, [facility] [place] [facility] [address] [id number] [place] [address]- 9852 Aug, [facility] [place] [facility] [address] [id number] [place] [address]- 3544 Aug, [facility] [place] [facility] [address] [id number] [place] [address]- 4845 Aug, [facility] [place] [facility] [address] [id number] [place] [address]- 2899 Aug, [facility] [place] [facility] [address] [id number], [place] [address]- 0033 Aug, [facility] [place] [facility] [address] [id number], [place] [address]- 4878 Jul, [facility] [place] [facility] [address] [id number] [place] [address]- 2972 Jul, [facility] [place] [facility] [address] [id number] [place] [address]- 6283 Jul, [facility] [place] [facility] [address] [id number] [place] [address]- 2882 Jun, [facility] [place] [facility] [address] [id number] [place] [address]- 9526 17 Jun, 2011 [facility] [address] [id number] [place] [address]- 4036 13 Jun, 2011 [facility] [place] [facility] [address] [id number] [place] [address] 2546 10 Jun, 2011 [facility] [place] [facility] [address] [id number] [place] [address] 2546 07 Jun, 2011 [facility] [place] [facility] [address] [id number] [place] [address] 2546 03 Jun, 2011 [facility] [place] [facility] [address] [id number] [place] [address]- 1996 03 Jun, 2011 [facility] [place] [facility] [address] [id number] [place] [address]- 0147 24 May, 2011 [facility] [place] [facility] [address] [id number] [place] [address]- 8235 May, [facility] [place] [facility] [address] [id number] [place] [address]- 3765 May, [facility] [place] [facility] [address] [id number] [place] [address]- 1284 May, [facility] [place] [facility] [address] [facility] [id number] [place] [address] Apr, [facility] [place] [facility] [address] [id number] [place] [address]- 7116 Apr, [facility] [place] [facility] [address] [id number] [place] [address] 2546 Mar, [facility] [place] [facility] [address] [id number] [place] [address] 2546 Mar, [facility] [place] [facility] [address] [id number] [place] [address]- 2546 Mar, [facility] [place] [facility] [address] [id number] [place] [address]- 5851 11 Nov, 2010 [facility] [address] [id number] [place] [address]- 3369 13 May, 2010 [facility] [place] [facility] [address] [id number] [place] [address]- 6986 23 Apr, 2010 [facility] [place] [facility] [address] [id number] [place] [address]- 9612 13 Apr, 2010 [facility] [place] [facility] [address] [id number] [place] [address]- 0831 13 Apr, 2010 [facility] [place] [facility] [address] [id number] [place] [address]- 7737 Apr, [facility] [place] [facility] [address] [id number] [place] [address]- 2264 Apr, [facility] [place] [facility] [address] [facility] [id number] [place] [address]- 8150 Mar, [facility] [place] [facility] [address] [id number] [place] [address]- 7959 08 Mar, 2010 [facility] [place] [facility] [address] [id number] [place] [address]- 2769 Feb, [facility] [place] [facility] [address] [id number], [place] [address]- 4304 14 Aug, 2009 [facility] [place] [facility] [address] [id number], [place] [address]- 7726 Jul, [facility] [place] [facility] [address] [id number], [place] [address]- 3657 17 Jun, 2009 [facility] [place] [facility] [address] [id number] [place] [address]- 3445 30 Apr, 2009 [facility] [place] [facility] [address] [id number], [place] [address]- 8298 Apr, [facility] [place] [facility] [address] [id number] [place] [address]- 2927 Mar, [facility] [place] [facility] [address] [facility] [id number] [place] [address]- 2546 Mar, [facility] [address] [facility] [id number], [place] [address]- 2546 Feb, [facility] [address] [facility] [id number], [place] [address]- 2546 Dec, [facility] [address] [facility] [id number], [place] [address]- 2546 Oct, IMMUNIZATIONS No Known Immunizations SOCIAL HISTORY Never Assessed REASON FOR VISIT Controlled Med Refill PLAN OF CARE VITAL SIGNS MEDICATIONS [...] Hospitalization History surgery 2013 Hospitalization History A Fib--[facility] 03/08/2016 Hospitalization History acute chest pain, hypertensive urgency, paroxsysmal htn-[facility] 05/10/16
--- OUTSIDE RECORDS SUMMARY | 2018-09-17 11:59 | XMS REPORT ---
Author Author JORDY DESIREE Organization [facility] Address [address] [place] [address] Care Team Providers Care Commodity Director Name Role Phone SANTIAGO SPENCEY Unavailable PROBLEMS Type Condition ICD9-CM Code MTM70-LC Code Onset Dates Condition Status SNOMED Code Problem Essential hypertension I10 Active 96619497 Problem Vitamin D deficiency E55.9 Active 56791979 Problem Hyperlipidemia E78.5 Active 16394124 Problem Depression, unspecified depression type F32.9 Active 14475127 Problem Fasciculations of muscle R25.3 Active 99778628 Problem Chronic frontal sinusitis J32.1 Active 63864802 Problem Hyponatremia E87.1 Active 50007605 Problem Other chronic gastritis without hemorrhage K29.50 Active 4943769 Problem Paroxysmal atrial fibrillation I48.0 Active 407459950 Problem Primary insomnia F51.01 Active 654935879 Problem Generalized anxiety disorder F41.1 Active 056154680 Problem Seasonal allergies J30.2 Active 001235887 Problem Hidradenitis L73.2 Active 92105709 Problem Idiopathic peripheral neuropathy G60.9 Active 18538897 Problem Mild intermittent asthma without complication J45.20 Active 261410280 Problem Elevated alkaline phosphatase level R74.8 Active 910160138 Problem Chronic migraine G43.709 Active 65282009 Problem Obstructive sleep apnea G47.33 Active 80324660 ALLERGIES No Information ENCOUNTERS Encounter Location Date Diagnosis [facility] [id number] [place] [address] 15453- 0081 September, [facility] [id number] [place] [address] 18434 -1133 Jun, Dysuria R30.0 ; UTI symptoms R39.9 and Candidiasis of breast B37.89 [facility] [address] [place] [address] 60727- 5909 Jun, Hyponatremia E87.1 [facility] [address], [place] [address] 5663 Jun, Hyponatremia E87.1 [facility] [id number] [place] [address] 23781- 1215 Jun, Hyponatremia E87.1 [facility] [id number] [place] [address] 21652- 3951 Jun, [facility] [id number] [place] [address] 59868- 5522 May, Hyponatremia E87.1 [facility] [id number] [place] [address] 68537- 8295 May, Hyponatremia E87.1 [facility] [id number] [place] [address] 77772- 7116 May, Hyponatremia E87.1 [facility] [id number] [place] [address] 21496- 7129 May, Hyponatremia E87.1 [facility] [id number] [place] [address] 68915- 0199 Apr, Hyponatremia E87.1 ; Fasciculations of muscle R25.3 and Hyperlipidemia E78.5 [facility] [address] [place] [address] 89356- 7936 Apr, Cough R05 ; Hyponatremia E87.1 ; Fasciculations of muscle R25.3 ; Primary insomnia F51.01 ; Essential hypertension I10 ; Hyperlipidemia E78.5 ; Screening for breast cancer Z12.31 and BMI 40.0-44.9, adult Z68.41 [facility] [id number] [place] [address] 12065- 0247 Apr, Essential hypertension I10 [facility] [id number] [place] [address] 19547- 4049 Mar, [facility] [address] [place] [address]- 2367 Mar, [facility] [address], [place] [address]- 7900 Mar, [facility] [address] [address]- 3308 Feb, [facility] [address] [place] [address] 66948- 3489 Jan, [facility] [address], [place] [address]- 9546 Dec, Essential hypertension I10 [facility] [id number] [place] [address], [place] [address]- 1079 Dec, [facility] [address], [place] [address]- 7942 Dec, Essential hypertension I10 [facility] [address] [place] [address] 31889- 9979 Nov, [facility] [address], [place] [address]- 6365 Oct, Essential hypertension I10 [facility] [address], [place] [address]- 7495 Oct, Essential hypertension I10 [facility] [address], [place] [address]- 2731 Oct, [facility] [address], [place] [address]- 8931 September, [facility] [address], [place] [address]- 2964 September, Essential hypertension I10 [facility] [address], [place] [address]- 0167 September, [facility] [address], [place] [address]- 2760 September, Essential hypertension I10 ; Hyperlipidemia E78.5 and Hyponatremia E87.1 [facility] [place] [facility] [id number] [place] [address] 22309- 8271 September, Mild intermittent asthma without complication J45.20 ; Essential hypertension I10 ; Hyperlipidemia E78.5 ; Hyponatremia E87.1 and Dysuria R30.0 [facility] [id number] [place] [address] 81173- 0111 September, Other chronic gastritis without hemorrhage K29.50 ; Paroxysmal atrial fibrillation I48.0 and Essential hypertension I10 [facility] [id number] [place] [address] 93420- 1254 Aug, [facility] [address] 22221- 7326 Jul, [facility] [id number] [place] [address] 11771- 5108 14 Jun, 2016 [facility] [id number] [place] [address] 33027 -6140 Jun, Dysuria R30.0 and Acute cystitis with hematuria N30.01 [facility] [address] [place] [address] 70744- 0321 Jun, Essential hypertension I10 [facility] [id number] [place] [address] 50616- 3758 May, Paroxysmal atrial fibrillation I48.0 [facility] [id number] [place] [address] 60840- 4642 May, Other chronic gastritis without hemorrhage K29.50 [facility] [id number] [place] [address] 07607- 2399 May, [facility] [id number] [place] [address] 04818- 8175 May, Hyponatremia E87.1 ; Essential hypertension I10 and Other chronic gastritis without hemorrhage K29.50 [facility] [id number] [place] [address] 97932- 2715 May, Hyponatremia E87.1 [facility] [id number] [place] [address] 38118- 4936 May, Hyponatremia E87.1 [facility] [address] [id number] May, 2016 [facility] [id number] [place] [address] 33242- 2934 16 Apr, 2016 [facility] [id number] [place] [address] 47343- 1338 Apr, [facility] [id number] [place] [address] 65047- 0815 Mar, Essential hypertension I10 and Candidal intertrigo B37.2 [facility] [id number] [place] [address] 07585- 4435 Mar, Hyponatremia E87.1 [facility] [id number] [place] [address] 24494- 4709 14 Mar, 2016 [facility] [id number] [place] [address] 56538- 9295 Mar, Hyponatremia E87.1 [facility] [id number] [place] [address] 70077- 1917 09 Mar, 2016 Essential hypertension I10 ; Hyponatremia E87.1 ; Slurred speech R47.81 ; Paroxysmal atrial fibrillation I48.0 and Elevated blood sugar R73.9 [facility] [id number] [place] [address] 80736- 2421 Mar, [facility] [id number] [place] [address] 18768- 7788 Mar, [facility] [id number] [place] [address] 28568- 7178 Feb, [facility] [id number] [place] [address] 23456- 5966 15 Jan, 2016 [facility] [address], [place] [address]- 1923 Dec, [facility] [address], [place] [address] -2818 Nov, Scratched by cat, initial encounter W55.03XA and Other injury of unspecified body region T14.8 [facility] [address], [place] [address]- 3466 Nov, [facility] [id number] [place] [address] 39382- 9455 Oct, [facility] [id number] [place] [address] 24128- 1624 September, [facility] [id number] [place] [address] 05518- 8921 Aug, Elevated alkaline phosphatase level R74.8 [facility] [id number] [place] [address] 58604- 3969 Jul, [facility] [address] [place] [address] 53684- 4167 Jun, Essential hypertension I10 and Bright red blood per rectum K62.5 [facility] [address], [place] [address]- 3172 Jun, Elevated alkaline phosphatase level R74.8 [facility] [address], [place] [address]- 8070 Jun, [facility] [address] [place] [address] 93920- 8751 May, Essential hypertension I10 ; Hyperlipidemia E78.5 and Well woman exam (no gynecological exam) Z00.00 [facility] [address], [place] [address]- 8887 May, [facility] [address], [place] [address]- 8684 May, [facility] [id number] [place] [address] 87838- 3626 Mar, [facility] [id number] [place] [address] 99702- 9380 Mar, [facility] [id number] [place] [address] 06621- 1298 Mar, [facility] [facility] [address] 13637- 6510 Feb, Acute recurrent maxillary sinusitis J01.01 ; Asthma, unspecified, unspecified status 493.90 ; Seasonal allergies J30.2 and Cat allergies J30.[address] 28224- 0128 Feb, Upper respiratory tract infection, unspecified upper respiratory infection J06.[address] 89671- 5472 Jan, [facility] [id number] [place] [address] 26473- 1226 Jan, Dysphagia 787.20 and GERD (gastroesophageal reflux disease) 530.[address] [address] [id number] [place] [address] 04772- 6764 Jan, Breast lesion 611.9 [id number] [place] [address] 62871- 1103 Dec, Breast lesion 611.9 [facility] [id number] [place] [address] 15236- 0747 Dec, Breast lesion 611.9 [facility] [id number] [place] [address] 12125- 0396 Nov, Fatigue 780.79 and Hyperlipidemia 272.4 [id number] [place] [address] [id number]- 5723 Nov, Hypertension 401.9 ; Hyperlipidemia 272.4 ; Chronic frontal sinusitis 473.1 and Fatigue 780.79 [address] [place] [address]- 5391 08 Nov, 2014 [facility] [place] [facility] [address] [id number] [place] [address]- 5137 Oct, [facility] [place] [facility] [address] [id number] [place] [address]- 8600 Oct, [facility] [place] [facility] [address] [id number] [place] [address]- 0150 September, [facility] [place] [facility] [address] [id number] [place] [address]- 7258 September, [facility] [place] [facility] [address] [id number] [place] [address]- 9001 September, [facility] [place] [facility] [address] [id number] [place] [address]- 0286 September, [facility] [place] [facility] [address] [id number] [place] [address]- 7887 Aug, [facility] [place] [facility] [address] [id number] [place] [address]- 6493 14 Aug, 2014 [facility] [place] [facility] [address] [id number] [place] [address]- 7033 Aug, [facility] [place] [facility] [address] [id number] [place] [address]- 1225 Jul, [facility] [place] [facility] [address] [id number] [place] [address]- 9301 20 Jul, 2014 [facility] [place] [facility] [address] [id number] [place] [address]- 4187 Jul, [facility] [place] [facility] [address] [id number] [place] [address]- 4613 19 Jul, 2014 [facility] [place] [facility] [address] [id number] [place] [address]- 1538 18 Jul, 2014 [facility] [place] [facility] [address] [id number] [place] [address]- 7829 17 Jul, 2014 [facility] [place] [facility] [address] [id number] [place] [address]- 1827 17 Jul, 2014 [facility] [place] [facility] [address] [id number] [place] [address]- 4185 Jul, [facility] [place] [facility] [address] [id number] [place] [address]- 9822 16 Jul, 2014 [facility] [place] [facility] [address] [id number] [place] [address]- 0871 Jul, [facility] [place] [facility] [address] [id number] [place] [address]- 5959 Jul, [facility] [place] [facility] [address] [id number] [place] [address]- 3300 Jul, [facility] [place] [facility] [address] [id number] [place] [address]- 6091 Jul, [facility] [place] [facility] [address] [id number] [place] [address]- 1189 Jul, [facility] [place] [facility] [address] [id number] [place] [address]- 0238 Jul, [facility] [place] [facility] [address] [id number] [place] [address]- 2456 Jun, [facility] [place] [facility] [address] [id number] [place] [address]- 3320 Jun, [facility] [place] [facility] [address] [id number] [address]- 4017 Jun, [facility] [place] [facility] [address] [id number] [place] [address]- 3745 Jun, [facility] [place] [facility] [address] [id number] [place] [address]- 6964 May, [facility] [place] [facility] [address] [id number] [place] [address]- 4502 May, [facility] [place] [facility] [address] [id number] [place] [address]- 6766 13 May, 2014 [facility] [place] [facility] [address] [id number] [place] [address]- 4467 May, [facility] [place] [facility] [address] [id number] [place] [address]- 4691 Apr, [facility] [place] [facility] [address] [id number] [place] [address]- 6952 Apr, [facility] [place] [facility] [address] [id number] [place] [address]- 8833 Apr, [facility] [place] [facility] [address] [id number] [place] [address]- 5308 Apr, [facility] [place] [facility] [address] [id number] [place] [address]- 6940 Apr, [facility] [place] [facility] [address] [facility] [id number] [place] [address]- 9170 Apr, [facility] [place] [facility] [address] [id number] [place] [address]- 8748 Mar, [facility] [place] [facility] [address] [id number] [place] [address]- 3553 Mar, [facility] [place] [facility] [address] [facility] [id number] [place] [address]- 5981 Mar, [facility] [place] [facility] [address] [id number] [place] [address]- 7571 Mar, [facility] [place] [facility] [address] [id number] [place] [address]- 0962 Mar, [facility] [place] [facility] [address] [id number] [place] [address]- 5701 Mar, [facility] [place] [facility] [address] [id number] [place] [address]- 9348 Mar, [facility] [place] [facility] [address] [facility] [id number] [place] [address]- 8686 Mar, [facility] [place] [facility] [address] [id number] [place] [address]- 5667 Mar, [facility] [place] [facility] [address] [id number] [place] [address]- 7657 Mar, [facility] [place] [facility] [address] [id number] [place] [address]- 7640 Mar, [facility] [place] [facility] [address] [id number] [place] [address]- 1135 Mar, [facility] [place] [facility] [address] [id number] [place] [address]- 1268 Mar, [facility] [place] [facility] [address] [id number] [place] [address]- 5441 Mar, [facility] [place] [facility] [address] [id number] [place] [address]- 0017 Mar, [facility] [place] [facility] [address] [id number] [place] [address]- 0492 Mar, [facility] [place] [facility] [address] [id number] [place] [address]- 0809 Mar, [facility] [place] [facility] [address] [id number] [place] [address]- 2813 Feb, [facility] [place] [facility] [address] [facility] [id number] [place] [address]- 0513 Feb, [facility] [place] [facility] [address] [id number] [place] [address]- 9201 Feb, [facility] [place] [facility] [address] [id number] [place] [address]- 1342 Feb, [facility] [place] [facility] [address] [id number] [place] [address]- 5061 Feb, [facility] [place] [facility] [address] [id number] [place] [address]- 9919 Feb, [facility] [place] [facility] [address] [id number] [place] [address]- 6566 Feb, [facility] [place] [facility] [address] [id number] [place] [address]- 0830 Feb, [facility] [place] [facility] [address] [id number] [place] [address]- 2718 Feb, [facility] [place] [facility] [address] [id number] [place] [address]- 9013 Feb, [facility] [place] [facility] [address] [id number] [place] [address]- 3846 Feb, [facility] [place] [facility] [address] [id number] [place] [address]- 0308 Feb, [facility] [place] [facility] [address] [id number] [place] [address]- 9790 Feb, [facility] [place] [facility] [address] [id number] [place] [address]- 3739 Feb, [facility] [place] [facility] [address] [id number] [place] [address]- 1323 Feb, [facility] [place] [facility] [address] [id number] [place] [address]- 0248 Feb, [facility] [place] [facility] [address] [id number], [place] [address]- 1325 Feb, [facility] [place] [facility] [address] [id number], [place] [address]- 7291 Feb, [facility] [place] [facility] [address] [id number], [place] [address]- 0920 Feb, [facility] [place] [facility] [address] [id number] [place] [address]- 4987 30 Jan, 2014 [facility] [place] [facility] [address] [id number] [place] [address]- 4406 30 Jan, 2014 [facility] [place] [facility] [address] [id number] [place] [address]- 5272 29 Jan, 2014 [facility] [place] [facility] [address] [id number] [place] [address]- 2075 29 Jan, 2014 [facility] [place] [facility] [address] [id number] [place] [address]- 1300 24 Jan, 2014 [facility] [place] [facility] [address] [id number] [place] [address]- 8576 24 Jan, 2014 [facility] [place] [facility] [address] [id number] [place] [address]- 6338 Jan, [facility] [place] [facility] [address] [id number] [place] [address]- 8657 Jan, [facility] [place] [facility] [address] [id number] [place] [address]- 1577 Jan, [facility] [place] [facility] [address] [id number] [place] [address]- 7007 Dec, [facility] [place] [facility] [address] [id number] [place] [address]- 3398 Dec, [facility] [place] [facility] [address] [id number] [place] [address]- 7617 Dec, [facility] [place] [facility] [address] [id number] [place] [address]- 4234 Dec, [facility] [place] [facility] [address] [id number] [place] [address] Dec, [facility] [place] [facility] [address] [id number] [place] [address] Dec, [facility] [place] [facility] [address] [id number] [place] [address] Dec, [facility] [place] [facility] [address] [id number] [place] [address] Dec, [facility] [place] [facility] [address] [id number] [place] [address] Dec, [facility] [place] [facility] [address] [id number] [place] [address] Nov, [facility] [place] [facility] [address] [id number] [place] [address] Nov, [facility] [place] [facility] [address] [id number] [place] [address] Nov, [facility] [place] [facility] [address] [id number] [place] [address] Nov, [facility] [place] [facility] [address] [id number] [place] [address] Nov, [facility] [place] [facility] [address] [id number] [place] [address] Nov, [facility] [place] [facility] [address] [id number] [place] [address] Oct, [facility] [place] [facility] [address] [id number] [place] [address] Oct, [facility] [place] [facility] [address] [id number] [place] [address] Oct, [facility] [place] [facility] [address] [id number] [place] [address]60 Oct, [facility] [place] [facility] [address] [id number] [place] [address]226 Oct, [facility] [place] [facility] [address] [id number] [place] [address]77 Oct, [facility] [place] [facility] [address] [id number] [place] [address] Oct, [facility] [place] [facility] [address] [id number] [place] [address] Oct, [facility] [place] [facility] [address] [id number] [place] [address] Oct, [facility] [place] [facility] [address] [id number] [place] [address] Oct, [facility] [place] [facility] [address] [id number] [place] [address] Oct, [facility] [place] [facility] [address] [id number] [place] [address]- [address] Oct, [facility] [place] [facility] [address] [id number] [place] [address] Oct, [facility] [place] [facility] [address] [id number] [place] [address] Oct, [facility] [place] [facility] [address] [id number] [place] [address] September, [facility] [place] [facility] [address] [id number] [place] [address] September, [facility] [place] [facility] [address] [id number] [place] [address] September, [facility] [place] [facility] [address] [id number] [place] [address] September, [facility] [place] [facility] [address] [id number] [place] [address] September, [facility] [place] [facility] [address] [id number] [place] [address] September, [facility] [place] [facility] [address] [id number] [place] [address] 47[address] September, [facility] [place] [facility] [address] [id number] [place] [address] September, [facility] [place] [facility] [address] [id number] [place] [address] 15[address] September, [facility] [place] [facility] [address] [id number] [place] [address] September, [facility] [place] [facility] [address] [id number] [place] [address] September, [facility] [place] [facility] [address] [id number] [place] [address] 39[address] September, [facility] [place] [facility] [address] [id number] [place] [address] September, [facility] [address] [id number] [place] [address] September, [facility] [address] [id number] [place] [address] September, [facility] [address] [id number] [place] [address] September, [facility] [address] [id number] [place] [address] September, [facility] [address] [id number] [place] [address] September, [facility] [address] [id number] [place] [address] September, [facility] [address] [id number] [place] [address] Aug, [facility] [address] [id number] [place] [address] Aug, [facility] [address] [id number] [place] [address] Jul, [facility] [facility] [address] [id number] [place] [address] Jul, [facility] [place] [facility] [address] [id number] [place] [address] Jul, [facility] [place] [facility] [address] [id number] [place] [address] Jul, [facility] [place] [facility] [address] [id number] [place] [address] Jul, [facility] [place] [facility] [address] [id number] [place] [address] Jul, [facility] [place] [facility] [address] [id number] [place] [address] Jul, [facility] [place] [facility] [address] [id number] [place] [address] Jul, [facility] [place] [facility] [address] [id number] [place] [address] Jul, [facility] [place] [facility] [address] [id number] [place] [address] Jul, [facility] [place] [facility] [address] [id number] [place] [address] Jul, [facility] [place] [facility] [address] [id number] [place] [address]- [address] 14 Jul, 2013 [facility] [place] [facility] [address] [id number] [place] [address] Jul, [facility] [place] [facility] [address] [id number] [place] [address] Jul, [facility] [place] [facility] [address] [id number] [place] [address]- 5546 10 Jun, 2013 [facility] [place] [facility] [address] [id number] [place] [address]- 3776 10 Jun, 2013 [facility] [place] [facility] [address] [id number] [place] [address]- 0743 10 Jun, 2013 [facility] [place] [facility] [address] [id number] [place] [address]- [address]395 Jun, [facility] [place] [facility] [address] [id number] [place] [address] May, [facility] [place] [facility] [address] [id number] [place] [address] 2796 May, [facility] [place] [facility] [address] [id number] [place] [address] 3228 May, [facility] [place] [facility] [address] [id number] [place] [address] 3510 May, [facility] [place] [facility] [address] [id number] [place] [address]- 7973 08 May, 2013 [facility] [place] [facility] [address] [id number] [place] [address]- 1230 14 Mar, 2013 [facility] [place] [facility] [address] [id number] [place] [address]- 5934 14 Mar, 2013 [facility] [place] [facility] [address] [id number] [place] [address]- 3029 07 Mar, 2013 [facility] [place] [facility] [address] [id number] [place] [address]- 9107 07 Mar, 2013 [facility] [place] [facility] [address] [id number] [place] [address] 8841 Mar, [facility] [place] [facility] [address] [id number] [place] [address] 4728 Mar, [facility] [place] [facility] [address] [id number] [place] [address]- 7008 Feb, [facility] [place] [facility] [address] [id number] [place] [address]- 1570 Feb, [facility] [place] [facility] [address] [id number] [place] [address]- 5381 Feb, [facility] [place] [facility] [address] [id number] [place] [address]- [address]396 Feb, [facility] [place] [facility] [address] [id number] [place] [address]- 3463 24 Feb, 2013 [facility] [place] [facility] [address] [id number] [place] [address]- 7579 Feb, [facility] [place] [facility] [address] [id number] [place] [address]- 06[address] Feb, [facility] [place] [facility] [address] [id number] [place] [address] 4278 Feb, [facility] [place] [facility] [address] [id number] [place] [address]- 63[address] 17 Feb, 2013 [facility] [place] [facility] [address] [id number] [place] [address]- 0907 Feb, [facility] [place] [facility] [address] [id number] [place] [address]- 8498 Feb, [facility] [place] [facility] [address] [id number] [place] [address]- [address] Feb, [facility] [place] [facility] [address] [id number] [place] [address] 6389 Jan, [facility] [place] [facility] [address] [id number] [place] [address]- 9007 Jan, [facility] [place] [facility] [address] [id number] [place] [address]- 0275 Dec, [facility] [place] [facility] [address] [id number] [place] [address]- 2582 Dec, [facility] [place] [facility] [address] [id number] [place] [address]- 4661 Nov, [facility] [place] [facility] [address] [id number] [place] [address]- 9737 Nov, [facility] [place] [facility] [address] [id number] [place] [address]- 2069 Nov, [facility] [place] [facility] [address] [id number] [place] [address]- 6970 Nov, [facility] [place] [facility] [address] [id number] [place] [address]- 3116 Nov, [facility] [place] [facility] [address] [id number] [place] [address]- 3017 Oct, [facility] [place] [facility] [address] [id number] [place] [address]- 5223 September, [facility] [place] [facility] [address] [id number] [place] [address]- 3842 Aug, [facility] [place] [facility] [address] [id number] [place] [address]- 3596 Jul, [facility] [address] [id number] [place] [address] 8377 Jul, [facility] [address] [id number] [place] [address]- 7974 Jul, [facility] [address] [facility] [id number] [place] [address] 9073 Jun, [facility] [address] [id number] [place] [address]- 9272 14 Jun, 2012 [facility] [address] [id number] [place] [address] Jun, [facility] [address] [facility] [id number] [place] [address]- 2842 Jun, [facility] [address] [facility] [id number] [place] [address]- 1662 Jun, [facility] [address] [id number] [place] [address]- 6598 May, [facility] [address] [facility] [id number] [place] [address] 8986 May, [facility] [address] [facility] [id number] [place] [address]- [address]272 Apr, [facility] [address] [facility] [id number] [place] [address]- 3392 Apr, [facility] [place] [facility] [address] [id number], [place] [address]- [address] Mar, [facility] [place] [facility] [address] [id number] [place] [address]- 6761 Mar, [facility] [place] [facility] [address] [facility] [id number] [place] [address]- 3356 Mar, [facility] [place] [facility] [address] [facility] [id number] [place] [address]- 3341 Mar, [facility] [place] [facility] [address] [id number] [place] [address]- 6757 Mar, [facility] [place] [facility] [address] [id number] [place] [address]- 9118 Mar, [facility] [place] [facility] [address] [id number] [place] [address]- 3823 Mar, [facility] [place] [facility] [address] [id number] [place] [address]- 5488 Mar, [facility] [place] [facility] [address] [id number] [place] [address]- 5831 Mar, [facility] [place] [facility] [address] [id number] [place] [address]- 7155 Mar, [facility] [place] [facility] [address] [id number] [place] [address] Feb, [facility] [place] [facility] [address] [id number] [place] [address]- 8124 Feb, [facility] [place] [facility] [address] [id number] [place] [address]- 0947 Feb, [facility] [place] [facility] [address] [id number] [place] [address]- 3411 Feb, [facility] [place] [facility] [address] [facility] [id number] [place] [address] Feb, [facility] [place] [facility] [address] [id number] [place] [address]- 8820 Feb, [facility] [place] [facility] [address] [id number] [place] [address]- 2692 Jan, [facility] [place] [facility] [address] [id number] [place] [address]- 1856 Jan, [facility] [place] [facility] [address] [id number] [place] [address]- 4624 Dec, [facility] [place] [facility] [address] [id number] [place] [address]- 2077 Dec, [facility] [address] [id number] [place] [address]- 4909 Dec, [facility] [place] [facility] [address] [id number] [place] [address]- 9674 Nov, [facility] [place] [facility] [address] [id number] [place] [address]- 8791 September, [facility] [place] [facility] [address] [id number] [place] [address]- 2262 September, [facility] [address] [id number] [place] [address]- 8699 September, [facility] [place] [facility] [address] [id number] [place] [address]- 0126 September, [facility] [place] [facility] [address] [id number] [place] [address]- 8989 Aug, [facility] [place] [facility] [address] [id number] [place] [address]- 5444 Aug, [facility] [place] [facility] [address] [id number] [place] [address]- 9647 Aug, [facility] [place] [facility] [address] [id number] [place] [address]- 9662 Aug, [facility] [place] [facility] [address] [id number], [place] [address]- 3162 Aug, [facility] [place] [facility] [address] [id number], [place] [address]- 7375 Jul, [facility] [place] [facility] [address] [id number] [place] [address]- 5009 Jul, [facility] [place] [facility] [address] [id number] [place] [address]- 4171 Jul, [facility] [place] [facility] [address] [id number] [place] [address]- 6775 Jun, [facility] [place] [facility] [address] [id number] [place] [address]- 4176 17 Jun, 2011 [facility] [address] [id number] [place] [address]- 4206 13 Jun, 2011 [facility] [place] [facility] [address] [id number] [place] [address] 2546 10 Jun, 2011 [facility] [place] [facility] [address] [id number] [place] [address] 2546 07 Jun, 2011 [facility] [place] [facility] [address] [id number] [place] [address] 2546 03 Jun, 2011 [facility] [place] [facility] [address] [id number] [place] [address]- 0246 03 Jun, 2011 [facility] [place] [facility] [address] [id number] [place] [address]- 6312 24 May, 2011 [facility] [place] [facility] [address] [id number] [place] [address]- 5596 May, [facility] [place] [facility] [address] [id number] [place] [address]- 9615 May, [facility] [place] [facility] [address] [id number] [place] [address]- 1813 May, [facility] [place] [facility] [address] [facility] [id number] [place] [address] Apr, [facility] [place] [facility] [address] [id number] [place] [address]- 6516 Apr, [facility] [place] [facility] [address] [id number] [place] [address] 2546 Mar, [facility] [place] [facility] [address] [id number] [place] [address] 2546 Mar, [facility] [place] [facility] [address] [id number] [place] [address]- 2546 Mar, [facility] [place] [facility] [address] [id number] [place] [address]- 3214 11 Nov, 2010 [facility] [address] [id number] [place] [address]- 2776 13 May, 2010 [facility] [place] [facility] [address] [id number] [place] [address]- 3807 23 Apr, 2010 [facility] [place] [facility] [address] [id number] [place] [address]- 6599 13 Apr, 2010 [facility] [place] [facility] [address] [id number] [place] [address]- 5541 13 Apr, 2010 [facility] [place] [facility] [address] [id number] [place] [address]- 2758 Apr, [facility] [place] [facility] [address] [id number] [place] [address]- 2967 Apr, [facility] [place] [facility] [address] [facility] [id number] [place] [address]- 7812 Mar, [facility] [place] [facility] [address] [id number] [place] [address]- 4264 08 Mar, 2010 [facility] [place] [facility] [address] [id number] [place] [address]- 6854 Feb, [facility] [place] [facility] [address] [id number], [place] [address]- 8027 14 Aug, 2009 [facility] [place] [facility] [address] [id number], [place] [address]- 3270 Jul, [facility] [place] [facility] [address] [id number], [place] [address]- 1088 17 Jun, 2009 [facility] [place] [facility] [address] [id number] [place] [address]- 4031 30 Apr, 2009 [facility] [place] [facility] [address] [id number], [place] [address]- 8385 Apr, [facility] [place] [facility] [address] [id number] [place] [address]- 5516 Mar, [facility] [place] [facility] [address] [facility] [id number] [place] [address]- 2546 Mar, [facility] [address] [facility] [id number], [place] [address]- 2546 Feb, [facility] [address] [facility] [id number], [place] [address]- 2546 Dec, [facility] [address] [facility] [id number], [place] [address]- 2546 Oct, IMMUNIZATIONS No Known Immunizations SOCIAL HISTORY Never Assessed REASON FOR VISIT Refill Request PLAN OF CARE VITAL SIGNS [...] Hospitalization History surgery 2013 Hospitalization History A Fib--[facility] 03/08/2016 Hospitalization History acute chest pain, hypertensive urgency, paroxsysmal htn-[facility] 05/10/16
[2018-09-17] MEDS ORDERED: ASPIRIN 81 MG CHEW (CHILDREN'S ASA) PO ONE (12:00)
--- OUTSIDE RECORDS SUMMARY | 2018-09-17 12:00 | XMS REPORT ---
Author Author JORDY DESIREE [facility] Address [address] [place] [address] Care Team Providers Care Studio Engineer Name Role Phone DESIREE SPENCE Unavailable PROBLEMS Type Condition ICD9-CM Code VKO82-IM Code Onset Dates Condition Status SNOMED Code Problem Vitamin D deficiency E55.9 Active 04040744 Problem Chronic frontal sinusitis J32.1 Active 47573505 Problem Hyponatremia E87.1 Active 65398853 Problem BMI 40.0-44.9, adult Z68.41 Active 272323285 Problem Seasonal allergies J30.2 Active 426241559 Problem Secondary pulmonary arterial hypertension I27.21 Active 37971464 Problem Other chronic gastritis without hemorrhage K29.50 Active 9061718 Problem Paroxysmal atrial fibrillation I48.0 Active 783543945 Problem Fasciculations of muscle R25.3 Active 43553855 Problem Depression, unspecified depression type F32.9 Active 38897303 Problem Mild intermittent asthma without complication J45.20 Active 792605202 Problem Chronic migraine G43.709 Active 57074581 Problem Primary insomnia F51.01 Active 583714766 Problem Generalized anxiety disorder F41.1 Active 583087636 Problem Elevated alkaline phosphatase level R74.8 Active 000720600 Problem Obstructive sleep apnea G47.33 Active 53422465 Problem Hidradenitis L73.2 Active 88151517 Problem Essential hypertension I10 Active 82447849 Problem Idiopathic peripheral neuropathy G60.9 Active 71521597 Problem Hyperlipidemia E78.5 Active 87258305 ALLERGIES No Information ENCOUNTERS Encounter Location Date Diagnosis [facility] [address], [place] [address] Nov, [facility] [id number] [address] Oct, [facility] [address], [place] [address] September, Medicare annual wellness visit, initial Z00.00 ; Mild intermittent asthma without complication J45.20 ; Generalized anxiety disorder F41.1 ; Depression, unspecified depression type F32.9 ; Paroxysmal atrial fibrillation I48.0 ; Obstructive sleep apnea G47.33 ; Hyponatremia E87.1 ; Need for hepatitis C screening test Z11.59 ; Encounter for immunization Z23 ; Secondary pulmonary arterial hypertension I27.21 and BMI 40.0-44.9, adult Z68.41 [facility] [address] [address] 30 Aug, 2017 Essential hypertension I10 [facility] [address] [address] Jun, Dysuria R30.0 ; UTI symptoms R39.9 and Candidiasis of breast B37.89 [place] [address] [address] Jun, Hyponatremia E87.1 [place] [address] [address]- [address] Jun, Hyponatremia E87.1 [place] [address] [address]- [address] Jun, Hyponatremia E87.1 [place] [address] [address]- [address] Jun, [place] [address] [address]- [address] May, Hyponatremia E87.1 [place] [address] [address]- [address] May, Hyponatremia E87.1 [place] [address] [address]- 80[address] May, Hyponatremia E87.1 [place] [address] [address]- 4251 May, Hyponatremia E87.1 [facility] [address], [place] [address] Apr, Hyponatremia E87.1 ; Fasciculations of muscle R25.3 and Hyperlipidemia E78.5 [facility] [id number], [place] [address] Apr, Cough R05 ; Hyponatremia E87.1 ; Fasciculations of muscle R25.3 ; Primary insomnia F51.01 ; Essential hypertension I10 ; Hyperlipidemia E78.5 ; Screening for breast cancer Z12.31 and BMI 40.0-44.9, adult Z68.41 [facility] [id number] [place] [address] 67921- 8860 Apr, Essential hypertension I10 [facility] [id number] [place] [address] 93595- 6071 Mar, [facility] [id number] [place] [address] 71267- 0978 Mar, [facility] [id number] [place] [address] 54629- 1266 Mar, [facility] [id number] [place] [address] 59831- 7877 Feb, [facility] [id number] [address] Jan, [facility] [id number] [place] [address] 41456- 9928 Dec, Essential hypertension I10 [facility] [address], [place] [address] 2068 Dec, [facility] [id number] [place] [address] 41505- 3823 Dec, Essential hypertension I10 [facility] [address] [address] Nov, [facility] [id number] [address] Oct, Essential hypertension I10 [facility] [id number] [place] [address] 83587- 7560 Oct, Essential hypertension I10 [facility] [id number] [place] [address] 19293- 5763 Oct, [facility] [id number] [place] [address] 03232- 2872 September, [facility] [id number] [place] [address] 70663- 4700 September, Essential hypertension I10 [facility] [id number] [place] [address] 99526- 2033 September, [facility] [id number] [place] [address] 03113- 6518 September, Essential hypertension I10 ; Hyperlipidemia E78.5 and Hyponatremia E87.1 [facility] [id number] [place] [address] 64227- 0352 September, Mild intermittent asthma without complication J45.20 ; Essential hypertension I10 ; Hyperlipidemia E78.5 ; Hyponatremia E87.1 and Dysuria R30.0 [facility] [address] [place] [address] 55395- 2959 September, Other chronic gastritis without hemorrhage K29.50 ; Paroxysmal atrial fibrillation I48.0 and Essential hypertension I10 [facility] [address] [place] [address] 69595- 0034 Aug, [facility] [id number] [place] [address] 46839- 3791 Jul, [facility] [id number] [place] [address] 11816- 4903 14 Jun, 2016 [facility] [address], [place] [address] 07 Jun, 2016 Dysuria R30.0 and Acute cystitis with hematuria N30.01 [facility] [id number] [place] [address] 53595- 5774 Jun, Essential hypertension I10 [facility] [id number] [place] [address] 75651- 3397 May, Paroxysmal atrial fibrillation I48.0 [facility] [id number] [place] [address] 71685- 5460 May, Other chronic gastritis without hemorrhage K29.50 [facility] [id number] [place] [address] 73016- 4156 May, [facility] [address] [address]- 0750 May, Hyponatremia E87.1 ; Essential hypertension I10 and Other chronic gastritis without hemorrhage K29.50 [facility] [id number] [place] [address] 95465- 7266 May, Hyponatremia E87.1 [facility] [id number] [place] [address] 78936- 0255 May, Hyponatremia E87.1 [facility] [address] [id number] May, [facility] [id number] [place] [address] 12939- 6588 Apr, [facility] [id number] [place] [address] 28533- 3242 Apr, [facility] [id number] [place] [address] 96419- 8647 29 Mar, 2016 Essential hypertension I10 and Candidal intertrigo B37.2 [facility] [id number] [place] [address] 07762- 2976 Mar, Hyponatremia E87.1 [facility] [id number] [place] [address] 06956- 4025 14 Mar, 2016 [facility] [id number] [place] [address] 20477- 1629 Mar, Hyponatremia E87.1 [facility] [address] 75408- 7032 Mar, Essential hypertension I10 ; Hyponatremia E87.1 ; Slurred speech R47.81 ; Paroxysmal atrial fibrillation I48.0 and Elevated blood sugar R73.9 [facility] [address] [address]- 8184 Mar, [facility] [address] 83158- 3608 Mar, [facility] [address] 93814- 4022 Feb, [facility] [address] 22036- 3476 Jan, [facility] [address] 79789- 7233 Dec, [facility] [id number] [place] [address] 48568 -2573 Nov, Scratched by cat, initial encounter W55.03XA and Other injury of unspecified body region T14.8 [facility] [id number] [place] [address] 86599- 6237 Nov, [facility] [id number] [place] [address] 96124- 4874 Oct, [facility] [id number] [place] [address] 66272- 2092 September, [facility] [address] 08613- 0172 Aug, Elevated alkaline phosphatase level R74.8 [facility] [id number] [place] [address] 61326- 7780 Jul, [facility] [address] [place] [address]- 0748 26 Jun, 2015 Essential hypertension I10 and Bright red blood per rectum K62.5 [place] [address] 87376- 0474 11 Jun, 2015 Elevated alkaline phosphatase level R74.8 [place] [address] 08861- 7798 Jun, [place] [address] 42717- 1644 May, Essential hypertension I10 ; Hyperlipidemia E78.5 and Well woman exam (no gynecological exam) Z00.00 [place] [address] 01690- 7856 May, [place] [address] 03336- 1104 May, [place] [address] 85718- 2898 Mar, [place] [id number] [place] [address] 65702- 1891 Mar, [place] [address] 33040- 4533 Mar, [place] [id number] [place] [address] 27729- 6000 Feb, Acute recurrent maxillary sinusitis J01.01 ; Asthma, unspecified, unspecified status 493.90 ; Seasonal allergies J30.2 and Cat allergies J30.81 [place] [id number] [place] [address] 76034- 7659 13 Feb, 2015 Upper respiratory tract infection, unspecified upper respiratory infection J06.9 [place] [id number] [place] [address] 23992- 8773 Jan, [place] [id number] [place] [address] 48035- 6527 Jan, Dysphagia 787.20 and GERD (gastroesophageal reflux disease) 530.81 [facility] [id number] [place] [address] 30898- 0741 Jan, Breast lesion 611.9 [facility] [id number] [place] [address] 96931- 5169 Dec, Breast lesion 611.9 [facility] [id number] [place] [address] 77984- 1387 Dec, Breast lesion 611.9 [facility] [id number] [place] [address] 01229- 9622 Nov, Fatigue 780.79 and Hyperlipidemia 272.4 [facility] [id number] [place] [address] 403466- 0689 Nov, Hypertension 401.9 ; Hyperlipidemia 272.4 ; Chronic frontal sinusitis 473.1 and Fatigue 780.79 [facility] [id number] [place] [address] 91158- 8826 Nov, [facility] [id number] [place] [address] 65419- 1942 Oct, [facility] [id number] [place] [address] 31771- 2063 Oct, [facility] [id number] [place] [address] 84927- 0272 September, [facility] [id number] [place] [address] 85080- 4320 September, [facility] [id number] [place] [address] 69787- 0926 September, [facility] [id number] [place] [address] 63869- 7406 September, [facility] [id number] [place] [address] 638389- 0379 Aug, [facility] [id number] [place] [address] 86710- 8466 14 Aug, 2014 [facility] [place] [facility] [address] [id number] [place] [address]- 9540 13 Aug, 2014 [facility] [place] [facility] [address] [id number] [place] [address]- 8606 20 Jul, 2014 [facility] [place] [facility] [address] [id number] [place] [address]- 4551 20 Jul, 2014 [facility] [place] [facility] [address] [id number] [place] [address]- 3802 19 Jul, 2014 [facility] [place] [facility] [address] [id number] [place] [address]- 4846 19 Jul, 2014 [facility] [place] [facility] [address] [id number] [place] [address]- 6961 18 Jul, 2014 [facility] [place] [facility] [address] [id number] [place] [address]- 6894 17 Jul, 2014 [facility] [place] [facility] [address] [id number] [place] [address]- 4244 17 Jul, 2014 [facility] [place] [facility] [address] [id number] [place] [address]- 9189 16 Jul, 2014 [facility] [place] [facility] [address] [id number] [place] [address]- 8046 16 Jul, 2014 [facility] [place] [facility] [address] [id number] [place] [address]- 4777 12 Jul, 2014 [facility] [place] [facility] [address] [id number] [place] [address]- 0758 12 Jul, 2014 [facility] [place] [facility] [address] [id number] [place] [address]- 0527 09 Jul, 2014 [facility] [place] [facility] [address] [id number] [place] [address]- 6576 09 Jul, 2014 [facility] [place] [facility] [address] [id number] [place] [address]- 9613 04 Jul, 2014 [facility] [place] [facility] [address] [id number] [place] [address] 2541 Jul, [facility] [address] [id number] [place] [address]- 9076 Jun, 2014 [facility] [place] [facility] [address] [id number] [place] [address]- 2546 Jun, 2014 [facility] [place] [facility] [address] [id number] [place] [address] 2546 Jun, [facility] [place] [facility] [address] [id number] [place] [address]- 2546 Jun, [facility] [place] [facility] [address] [id number] [place] [address]- 7757 May, [facility] [place] [facility] [address] [id number] [place] [address]- 6297 May, [facility] [place] [facility] [address] [facility] [id number] [place] [address]- 8871 May, [facility] [place] [facility] [address] [id number] [place] [address]- 9456 May, [facility] [place] [facility] [address] [facility] [id number] [place]- 1485 Apr, [facility] [place] [facility] [address] [facility] [id number] [place] [address]- 0148 Apr, [facility] [place] [facility] [address] [id number] [place] [address]- 3586 Apr, [facility] [place] [facility] [address] [id number] [place] [address]- 0605 Apr, [facility] [place] [facility] [address] [id number] [place] [address]- 1346 Apr, [facility] [place] [facility] [address] [facility] [id number] [place] [address]- 2546 Apr, [facility] [place] [facility] [address] [id number] [place] [address]- 9052 Mar, [facility] [place] [facility] [address] [id number] [place] [address]- 2307 Mar, [facility] [place] [facility] [address] [id number] [place] [address]- 4484 Mar, [facility] [place] [facility] [address] [id number] [place] [address]- 1209 Mar, [facility] [place] [facility] [address] [id number] [place] [address]- 4231 Mar, [facility] [place] [facility] [address] [id number] [place] [address]- 9578 Mar, [facility] [place] [facility] [address] [id number] [place] [address]- 6597 Mar, [facility] [place] [facility] [address] [id number] [place] [address]- 0508 Mar, [facility] [place] [facility] [address] [id number] [place] [address]- 1960 Mar, [facility] [place] [facility] [address] [id number] [place] [address]- 9125 Mar, [facility] [place] [facility] [address] [id number] [place] [address]- 0512 Mar, [facility] [place] [facility] [address] [id number], [place] [address]- 8907 Mar, [facility] [place] [facility] [address] [id number], [place] [address]- 1708 Mar, [facility] [place] [facility] [address] [id number] [place] [address]- 1590 Mar, [facility] [place] [facility] [address] [id number], [place] [address]- 0014 Mar, [facility] [place] [facility] [address] [id number] [place] [address]- 1416 Mar, [facility] [place] [facility] [address] [id number] [place] [address]- 8527 05 Mar, 2014 [facility] [place] [facility] [address] [id number] [place] [address]- 9843 30 Feb, 2013 [facility] [place] [facility] [address] [id number] [place] [address]- 9856 30 Feb, 2013 [facility] [place] [facility] [address] [id number] [place] [address]- 5027 30 Feb, 2013 [facility] [place] [facility] [address] [id number] [place] [address]- 7330 30 Feb, 2014 [facility] [place] [facility] [address] [id number] [place] [address]- 1620 29 Feb, 2014 [facility] [place] [facility] [address] [id number] [place] [address]- 4082 29 Feb, 2014 [facility] [place] [facility] [address] [id number] [place] [address]- 2829 Feb, [facility] [place] [facility] [address] [id number] [place] [address]- 8295 28 Feb, 2014 [facility] [place] [facility] [address] [id number] [place] [address]- 8633 28 Feb, 2014 [facility] [place] [facility] [address] [id number] [place] [address]- 0361 28 Feb, 2014 [facility] [place] [facility] [address] [id number] [place] [address]- 2635 16 Feb, 2014 [facility] [place] [facility] [address] [id number] [place] [address]- 0811 16 Feb, 2013 [facility] [place] [facility] [address] [id number] [place] [address]- 4923 15 Feb, 2014 [facility] [place] [facility] [address] [id number] [place] [address]- 7743 15 Feb, 2014 [facility] [place] [facility] [address] [id number] [place] [address]- 7919 08 Feb, 2014 [facility] [place] [facility] [address] [id number] [place] [address]- 0412 08 Feb, 2014 [facility] [place] [facility] [address] [id number] [place] [address]- 8623 Feb, [facility] [place] [facility] [address] [id number] [place] [address]- 5449 Feb, [facility] [place] [facility] [address] [id number] [place] [address]- 6593 Feb, [facility] [place] [facility] [address] [id number] [place] [address]- 8946 30 Jan, 2014 [facility] [place] [facility] [address] [id number] [place] [address]- 1429 30 Jan, 2014 [facility] [place] [facility] [address] [id number] [place] [address]- 2438 29 Jan, 2014 [facility] [place] [facility] [address] [id number] [place] [address]- 8364 29 Jan, 2014 [facility] [place] [facility] [address] [id number] [place] [address]- 1378 24 Jan, 2014 [facility] [place] [facility] [address] [id number] [place] [address]- 4392 24 Jan, 2014 [facility] [place] [facility] [address] [id number] [place] [address]- 2869 10 Jan, 2014 [facility] [place] [facility] [address] [id number] [place] [address]- 3541 08 Jan, 2014 [facility] [place] [facility] [address] [id number] [place] [address]- 3919 Jan, [facility] [place] [facility] [address] [id number] [place] [address]- 5819 Dec, [facility] [place] [facility] [address] [id number] [place] [address] Dec, [facility] [place] [facility] [address] [id number] [place] [address] Dec, [facility] [place] [facility] [address] [id number] [place] [address] Dec, [facility] [place] [facility] [address] [id number] [place] [address] Dec, [facility] [place] [facility] [address] [id number] [place] [address] Dec, [facility] [place] [facility] [address] [id number] [place] [address] Dec, [facility] [place] [facility] [address] [id number] [place] [address] Dec, [facility] [place] [facility] [address] [id number] [place] [address] Dec, [facility] [place] [facility] [address] [id number] [place] [address] Nov, [facility] [place] [facility] [address] [id number] [place] [address] Nov, [facility] [place] [facility] [address] [id number] [place] [address] Nov, [facility] [place] [facility] [address] [id number] [place] [address] Nov, [facility] [place] [facility] [address] [id number] [place] [address] Nov, [facility] [place] [facility] [address] [id number] [place] [address] Nov, [facility] [place] [facility] [address] [id number] [place] [address] Oct, [facility] [place] [facility] [address] [id number] [place] [address] Oct, [facility] [place] [facility] [address] [id number] [place] [address] Oct, [facility] [place] [facility] [address] [id number] [place] [address] Oct, [facility] [place] [facility] [address] [id number] [place] [address] Oct, [facility] [place] [facility] [address] [id number] [place] [address] Oct, [facility] [place] [facility] [address] [id number] [place] [address]- [address] Oct, [facility] [place] [facility] [address] [id number] [place] [address] Oct, [facility] [place] [facility] [address] [id number] [place] [address] Oct, [facility] [place] [facility] [address] [id number] [place] [address] Oct, [facility] [place] [facility] [address] [id number] [place] [address] Oct, [facility] [place] [facility] [address] [id number] [place] [address]- [address] Oct, [facility] [place] [facility] [address] [id number] [place] [address] Oct, [facility] [place] [facility] [address] [id number] [place] [address] Oct, [facility] [place] [facility] [address] [id number] [place] [address] September, [facility] [place] [facility] [address] [id number] [place] [address] September, [facility] [place] [facility] [address] [id number] [place] [address]- [address] September, [facility] [place] [facility] [address] [id number] [place] [address] September, [facility] [place] [facility] [address] [id number] [place] [address] September, [facility] [address] [id number] [place] [address] September, [facility] [place] [facility] [address] [id number] [place] [address] September, [facility] [place] [facility] [address] [id number] [place] [address] September, [facility] [place] [facility] [address] [id number] [place] [address] September, [facility] [place] [facility] [address] [id number] [place] [address] September, [facility] [place] [facility] [address] [id number] [place] [address] September, [facility] [place] [facility] [address] [id number] [place] [address] September, [facility] [place] [facility] [address] [id number] [place] [address] September, [facility] [place] [facility] [address] [id number] [place] [address] September, [facility] [place] [facility] [address] [id number] [place] [address] September, [facility] [place] [facility] [address] [id number] [place] [address] September, [facility] [place] [facility] [address] [id number] [place] [address] September, [facility] [facility] [address] [id number] [place] [address] September, [facility] [address] [id number] [place] [address] September, [facility] [address] [id number] [place] [address] Aug, [facility] [place] [facility] [address] [id number] [place] [address] 08 Aug, 2013 [facility] [place] [facility] [address] [id number] [place] [address] 31 Jul, 2013 [facility] [place] [facility] [address] [id number] [place] [address] 31 Jul, 2013 [facility] [place] [facility] [address] [id number] [place] [address] 1270 28 Jul, 2013 [facility] [place] [address] [id number] [place] [address] 9[address] 28 Jul, 2013 [facility] [place] [facility] [address] [id number] [place] [address] 9040 27 Jul, 2013 [facility] [address] [id number] [place] [address] 1020 27 Jul, 2013 [facility] [place] [facility] [address] [id number] [place] [address] 6499 Jul, [facility] [place] [facility] [address] [id number] [place] [address] 27 Jul, 2013 [facility] [place] [facility] [address] [id number] [place] [address] 1224 25 Jul, 2013 [facility] [place] [address] [id number] [place] [address]- 2592 25 Jul, 2013 [facility] [place] [address] [id number] [place] [address]- 3[address] 14 Jul, 2013 [facility] [address] [id number] [place] [address]- 2863 14 Jul, 2013 [facility] [address] [id number] [place] [address]- 2007 07 Jul, 2013 [facility] [place] [address] [id number] [place] [address]- 9815 07 Jul, 2013 [facility] [address] [facility] [id number] [place] [address]- 1538 10 Jun, 2013 [facility] [address] [id number] [place] [address] 9753 10 Jun, 2013 [facility] [address] [id number] [place] [address]- 66[address] Jun, [facility] [address] [id number] [place] [address] 00[address] Jun, [facility] [address] [id number] [place] [address] 3979 May, [facility] [address] [id number] [place] [address]- 7489 May, [facility] [address] [id number] [place] [address]- 8047 May, [facility] [address] [id number] [place] [address]- 1099 May, [facility] [address] [id number] [place] [address]- 3915 May, [facility] [address] [id number] [place] [address]- 3485 Mar, [facility] [address] [id number] [place] [address]- 9744 Mar, [facility] [address] [id number] [place] [address]- 3077 Mar, [facility] [address] [id number] [place] [address]- 2225 Mar, [facility] [address] [id number] [place] [address]- 3215 Mar, [facility] [address] [id number] [place] [address]- 5913 Mar, [facility] [address] [id number] [place] [address]- 2086 Feb, [facility] [address] [id number], [place] [address] Feb, [facility] [address] [id number] [place] [address]- 4277 Feb, [facility] [facility] [address] [id number] [place] [address] Feb, [facility] [address] [id number] [place] [address] 4713 Feb, [facility] [address] [id number] [place] [address]- 6[address] Feb, [facility] [address] [id number] [place] [address] 3464 Feb, [facility] [address] [id number] [place] [address]- 4182 Feb, [facility] [address] [id number] [place] [address] 4534 Feb, [facility] [address] [id number] [place] [address] 7167 Feb, [facility] [address] [id number] [place] [address]- 1304 Feb, [facility] [address] [id number] [place] [address]- 1421 Feb, [facility] [address] [id number], [place] [address] Jan, [facility] [address] [id number], [place] [address] Jan, [facility] [address] [id number] [place] [address]- 7694 Dec, [facility] [address] [id number] [place] [address]- 72[address] Dec, [facility] [address] [id number] [place] [address] 3650 Nov, [facility] [address] [id number] [place] [address]- 6[address] Nov, [facility] [address] [id number] [place] [address]- 2557 Nov, [facility] [address] [id number] [place] [address] 6836 Nov, [facility] [address] [id number] [place] [address]- 3325 Nov, [facility] [address] [id number] [place] [address]- 9343 Oct, [facility] [address] [id number] [place] [address]- 3599 September, [facility] [address] [id number] [place] [address]- 4195 Aug, [facility] [address] [id number] [place] [address]- 0107 Jul, [facility] [address] [id number] [place] [address]- 4455 Jul, [facility] [address] [id number] [place] [address]- 7369 Jul, [facility] [address] [id number] [place] [address]- 8575 Jun, [facility] [address] [id number] [place] [address]- 3972 14 Jun, 2012 [facility] [address] [id number] [place] [address] 2543 Jun, [facility] [address] [id number] [place] [address]- 4198 Jun, [facility] [address] [id number] [place] [address]- 2546 07 Jun, 2012 [facility] [address] [id number] [place] [address] 4521 May, [facility] [address] [id number] [place] [address]- 2936 May, [facility] [address] [id number] [place] [address]- 3272 Apr, [facility] [address] [facility] [id number] [place] Apr, [facility] [address] [id number] [place] [address] 1901 Mar, [facility] [address] [id number] [place] [address]- 8114 Mar, [facility] [address] [id number] [place] [address]- 2632 Mar, [facility] [address] [facility] [id number] [place] [address]- 0308 Mar, [facility] [address] [id number], [place] [address]- 9894 Mar, [facility] [address] [id number] [place] [address]- 6922 Mar, [facility] [address] [facility] [id number], [place] [address]- 8669 Mar, [facility] [address] [id number], [place] [address]- 6183 Mar, [facility] [address] [id number], [place] [address]- 3875 Mar, [facility] [address] [id number], [place] [address]- 3351 Mar, [facility] [address] [facility] [id number], [place] [address] 9319 Feb, [facility] [address] [facility] [id number], [place] [address]- 4617 Feb, [facility] [address] [id number] [place] [address]- 2257 30 Feb, 2012 [facility] [address] [id number] [place] [address]- 3585 30 Feb, 2012 [facility] [address] [id number] [place] [address]- 6806 Feb, [facility] [address] [id number] [place] [address]- 7506 Feb, [facility] [address] [id number] [place] [address]- 1396 Jan, [facility] [address] [id number] [place] [address]- 9895 Jan, [facility] [address] [id number] [place] [address]- 9353 Dec, [facility] [address] [id number] [place] [address]- 0709 Dec, [facility] [address] [id number] [place] [address]- 8504 Dec, [facility] [address] [id number] [place] [address]- 8932 Nov, [facility] [address] [id number] [place] [address]- 7152 September, [facility] [address] [id number] [place] [address]- 9094 September, [facility] [address] [id number] [place] [address]- 4513 September, [facility] [address] [id number] [place] [address]- 9120 September, [facility] [address] [id number] [place] [address]- 6488 Aug, [facility] [address] [id number] [place] [address]- 1333 Aug, [facility] [address] [id number] [place] [address]- 0700 Aug, [facility] [address] [id number] [place] [address]- 3726 Aug, [facility] [address] [id number] [place] [address]- 6829 Aug, [facility] [address] [id number] [place] [address]- 9328 Jul, [facility] [address] [id number] [place] [address]- 4045 Jul, [facility] [address] [id number] [place] [address]- 6557 Jul, [facility] [address] [id number] [place] [address]- 4829 29 Jun, 2011 [facility] [address] [id number] [place] [address]- 4548 17 Jun, 2011 [facility] [address] [id number] [place] [address]- 0780 Jun, [facility] [address] [id number] [place] [address]- 3287 Jun, [facility] [address] [id number] [place] [address]- 8806 Jun, [facility] [address] [id number] [place] [address]- 9503 Jun, [facility] [address] [id number] [place] [address]- 8086 Jun, [facility] [address] [id number] [place] [address]- 3436 24 May, 2011 [facility] [address] [id number] [place] [address]- 1636 May, [facility] [address] [id number] [place] [address]- 4465 12 May, 2011 [facility] [address] [id number] [place] [address]- 6495 12 May, 2011 [facility] [address] [id number] [place] [address]- 5236 27 Apr, 2011 [facility] [address] [id number] [place] [address]- 4736 13 Apr, 2011 [facility] [address] [id number] [place] [address]- 7256 Mar, [facility] [address] [id number] [place] [address]- 6792 Mar, [facility] [facility] [address] [id number] [place] [address]- 5779 Mar, [facility] [address] [id number] [place] [address]- 5479 Nov, [facility] [address] [id number] [place] [address]- 0138 May, [facility] [address] [id number] [place] [address]- 0117 Apr, [facility] [address] [id number] [place] [address]- 4321 Apr, [facility] [facility] [address] [id number] [place] [address]- 8780 13 Apr, 2010 [facility] [address] [id number] [place] [address] 2548 Apr, [facility] [place] [facility] [address] [id number] [place] [address]- 6055 Apr, [facility] [place] [facility] [address] [id number] [place] [address]- 1606 Mar, [facility] [address] [id number] [place] [address]- 6855 08 Mar, 2010 [facility] [address] [address]- 2546 Feb, [facility] [address], [place] [address]- 2546 Aug, [facility] [address], [place] [address]- 2546 Jul, [facility] [id number] [place] [address]- 2546 Jun, [facility] [address], [place] [address]- 2546 Apr, [facility] [id number] [place] [address]- 2546 Apr, [facility] [address], [place] [address]- 2546 Mar, [facility] [id number] [place] [address]- 2546 Mar, [facility] [address], [place] [address]- 5161 Feb, [facility] [address], [place] [address]- 2546 Dec, [facility] [address], [place] [address]- 2546 Oct, IMMUNIZATIONS No Known Immunizations SOCIAL HISTORY Never Assessed REASON FOR VISIT Lab (walk-in) PLAN OF CARE VITAL SIGNS MEDICATIONS Unknown Medications RESULTS No Results PROCEDURES Procedure Date Ordered Result Body Site LAB NOT BILLED BY [facility] May 03, 2017 VENIPUNCT, ROUTINE* May 03, 2017 INSTRUCTIONS MEDICATIONS ADMINISTERED No Known Medications [...] History acute chest pain, hypertensive urgency, paroxsysmal htn-[facility] 05/10/16
--- OUTSIDE RECORDS SUMMARY | 2018-09-17 12:01 | XMS REPORT ---
Author Author OLGA QUINTANA [facility] eClinicalWorks Address Unknown Phone Unavailable Care Team Providers Care Escrow Secretary Name Role Phone OLGA QUINTANA CP Unavailable Allergies, Adverse Reactions, Alerts Substance Reaction Event Type Amitriptyline HCl Info Not Available Drug Allergy Problems Problem Type Condition Code Onset Dates Condition Status Problem Persistent [...] Asthma, unspecified, unspecified status 493.90 Active Assessment Upper respiratory tract infection, unspecified upper respiratory infection J06.9 Active Problem Chronic frontal sinusitis 473.1 Active Problem Headache 784.0 Active Medications Medication Code System Code Instructions Start Date End Date Status Dosage Pristiq [facility] [address]-82 100 mg Jan 30, 2014 once daily Alprazolam [facility] [address]-53 0.5 mg Jan 30, 2014 take 1 tablet by Oral route 2 times per day buspirone [facility] 0 5 mg Feb 20, 2014 take 2 tablets by Oral route 4 times per day Omeprazole [facility] [address]-09 20 MG Orally Once a day Jan 30, 2014 1 capsule Ambien [facility] [address]-49 5 MG July 18, 2014 take 1 tablet by Oral route at bedtime 1 time per day CarBAMazepine ER [facility] [address]-37 200 MG Orally once a day in am & 2 tabs every pm 1 capsule Lisinopril [facility] 93238838212 20 MG Orally Once a day 1 tablet Hydrochlorothiazide [facility] 76135339068 12.5 MG 1 CAPSULE BY ORAL ROUTE 1 TIME PER DAY Abilify [facility] [address]-27 5 MG Orally Once a day 1 tablet Nortriptyline HCl [facility] [address]-85 25 MG Orally Once a day at bedtime 2 capsule Zithromax Z-Luis [facility] [address]-95 250 MG Orally Once a day Feb 18, 2015 Feb 23, 2015 2 tablets on the first day, then 1 tablet daily for 4 days Propranolol HCl [facility] 92029858680 40 MG 1 TABLET BY ORAL ROUTE 2 TIMES PER DAY FOR HEADACHE PREVENTION Procedures Procedure Coding System Code Date Office Visit, Est Pt., Level 3 CPT-4 62466 Feb 18, 2015 [facility] VISIT ESTABLISHED PATIENT CPT-4 G0467 Feb 18, 2015 Vital Signs Date/Time: Feb 18, 2015 Temperature 97.2 F Weight 256 lbs Height 66 in BMI 41.31 Index Blood Pressure Diastolic 72 mmHg Blood Pressure Systolic 142 mmHg Cardiac Monitoring Heart Rate 80 bpm Results No Known Results Summary Purpose eClinicalWorks Submission
--- OUTSIDE RECORDS SUMMARY | 2018-09-17 12:01 | XMS REPORT ---
Author Author JORDY DESIREE [facility] Address [address] [place] [address] Care Team Providers Care Traffic Agent Name Role Phone JORDYCAMPBELL MANSFIELDHANY Unavailable PROBLEMS Type Condition ICD9-CM Code ILF70-VJ Code Onset Dates Condition Status SNOMED Code Problem Elevated alkaline phosphatase level R74.8 Active 992308945 Problem Essential hypertension I10 Active 25325582 Problem Obstructive sleep apnea G47.33 Active 01254738 Problem Other chronic gastritis without hemorrhage K29.50 Active 2608947 Problem Paroxysmal atrial fibrillation I48.0 Active 682737809 Problem Vitamin D deficiency E55.9 Active 90241490 Problem Hyperlipidemia E78.5 Active 68956847 Problem Chronic frontal sinusitis J32.1 Active 87699028 Problem Hyponatremia E87.1 Active 18508167 Problem Seasonal allergies J30.2 Active 238560828 Problem Mild intermittent asthma without complication J45.20 Active 117855567 Problem Chronic migraine G43.709 Active 63873246 Problem Primary insomnia F51.01 Active 120393470 Problem Hidradenitis L73.2 Active 14782821 Problem Generalized anxiety disorder F41.1 Active 608022378 Problem Idiopathic peripheral neuropathy G60.9 Active 30539303 ALLERGIES No Information SOCIAL HISTORY Never Assessed PLAN OF CARE VITAL SIGNS MEDICATIONS Unknown Medications RESULTS Name Result Date Reference Range CBC 2016-09-14 WBC 6.8 3.4-10.8 RBC 4.43 3.77-5.28 Hemoglobin 12.6 11.1-15.9 Hematocrit 38.3 34.0-46.6 MCV 87 79-97 MCH 28.4 26.6-33.0 MCHC 32.9 31.5-35.7 RDW 13.7 12.3-15.4 Platelets 282 150-379 Neutrophils 65 Lymphs 26 Monocytes 7 Eos 2 Basos 0 Neutrophils (Absolute) 4.4 1.4-7.0 Lymphs (Absolute) 1.8 0.7-3.1 Monocytes(Absolute) 0.5 0.1-0.9 Eos (Absolute) 0.1 0.0-0.4 Baso (Absolute) 0.0 0.0-0.2 Immature Granulocytes 0 Immature Grans (Abs) 0.0 0.0-0.1 LIPID PANEL 2016-09-14 Cholesterol, Total 208 100-199 Triglycerides 84 0-149 HDL Cholesterol 79 >39 VLDL Cholesterol Hussein 17 5-40 LDL Cholesterol Calc 112 0-99 Comment: CMP 2016-09-14 Glucose, Serum 86 65-99 BUN 7 6-24 Creatinine, Serum 0.61 0.57-1.00 eGFR If NonAfricn Am 102 >59 eGFR If Africn Am 118 >59 BUN/Creatinine Ratio 11 9-23 Sodium, Serum 133 134-144 Potassium, Serum 4.3 3.5-5.2 Chloride, Serum 92 96-106 Carbon Dioxide, Total 23 18-29 Calcium, Serum 9.0 8.7-10.2 Protein, Total, Serum 7.0 6.0-8.5 Albumin, Serum 4.3 3.5-5.5 Globulin, Total 2.7 1.5-4.5 A/G Ratio 1.6 1.2-2.2 Bilirubin, Total <0.2 0.0-1.2 Alkaline Phosphatase, S 178 39-117 AST (SGOT) 16 0-40 ALT (SGPT) 27 0-32 PROCEDURES Procedure Date Ordered Result Body Site LAB NOT BILLED BY [facility] September 16, 2016 VENIPUNCT, ROUTINE* September 16, 2016 IMMUNIZATIONS No Known Immunizations MEDICAL (GENERAL) HISTORY Type Description Date Medical History hypertension Medical History neuropathy Medical History depression Medical History anxiety Medical History Hyposmolality and/or hyponatremia Surgical History cleaned out left side of sinuses 2013 Surgical History colonscopy 09/03/15 Hospitalization History cellulitis 09/2013 Hospitalization History surgery 2013 Hospitalization History A Fib--[facility] 03/08/2016 Hospitalization History acute chest pain, hypertensive urgency, paroxsysmal htn-[facility] 05/10/16
--- OUTSIDE RECORDS SUMMARY | 2018-09-17 12:01 | XMS REPORT ---
Author Author JORDY DESIREE [facility] Address [address] [place] [address] Care Team Providers Care Client Relationship Consultant Name Role Phone DESIREE SPENCE Unavailable PROBLEMS Type Condition ICD9-CM Code RXR99-CS Code Onset Dates Condition Status SNOMED Code Problem Hyponatremia E87.1 Active 60511663 Problem Paroxysmal atrial fibrillation I48.0 Active 126637632 Problem Chronic frontal sinusitis J32.1 Active 04464001 Problem Chronic kidney disease, unspecified CKD stage N18.9 Active 156546349 Problem Primary insomnia F51.01 Active 173093755 Problem Secondary pulmonary arterial hypertension I27.21 Active 77071169 Problem Seasonal allergies J30.2 Active 240672061 Problem Fasciculations of muscle R25.3 Active 36101163 Problem Other chronic gastritis without hemorrhage K29.50 Active 1678060 Problem BMI 40.0-44.9, adult Z68.41 Active 075779792 Problem Depression, unspecified depression type F32.9 Active 78762407 Problem Chronic migraine G43.709 Active 97236339 Problem Hidradenitis L73.2 Active 07615645 Problem Generalized anxiety disorder F41.1 Active 021736400 Problem Mild intermittent asthma without complication J45.20 Active 382461380 Problem Obstructive sleep apnea G47.33 Active 50210888 Problem Essential hypertension I10 Active 58460612 Problem Idiopathic peripheral neuropathy G60.9 Active 07772107 Problem Hyperlipidemia E78.5 Active 14208096 Problem Elevated alkaline phosphatase level R74.8 Active 412265093 Problem Vitamin D deficiency E55.9 Active 11982467 ALLERGIES No Information ENCOUNTERS Encounter Location Date Diagnosis [facility] [address] [facility] [id number] [address] Nov, [facility] [address] [id number] [address] Oct, Essential hypertension I10 and Chronic kidney disease, unspecified CKD stage N18.9 [place] [id number] [place] [address] 80091- 3446 Oct, Essential hypertension I10 and Chronic kidney disease, unspecified CKD stage N18.9 [place] [id number] [place] [address] 09368- 8046 Oct, [place] [address] [address]- [address] September, Medicare annual wellness visit, initial Z00.00 ; Mild intermittent asthma without complication J45.20 ; Generalized anxiety disorder F41.1 ; Depression, unspecified depression type F32.9 ; Paroxysmal atrial fibrillation I48.0 ; Obstructive sleep apnea G47.33 ; Hyponatremia E87.1 ; Need for hepatitis C screening test Z11.59 ; Encounter for immunization Z23 ; Secondary pulmonary arterial hypertension I27.21 and BMI 40.0-44.9, adult Z68.41 [place] [address] [address]- 2777 30 Aug, 2017 Essential hypertension I10 [facility] [address] [address] Jun, Dysuria R30.0 ; UTI symptoms R39.9 and Candidiasis of breast B37.89 [place] [address] 12560- 8249 Jun, Hyponatremia E87.1 [place] [address] 58084- 8208 Jun, Hyponatremia E87.1 [place] [address] 48849- 1143 Jun, Hyponatremia E87.1 [facility] [address] 71352- 9240 Jun, [place] [address] 07512- 7146 May, Hyponatremia E87.1 [facility] [id number] [place] [address] 74469- 5564 May, Hyponatremia E87.1 [facility] [id number] [place] [address] 80531- 3945 May, Hyponatremia E87.1 [facility] [id number] [place] [address] 22055- 6722 May, Hyponatremia E87.1 [facility] [id number] [place] [address] 66135- 5634 Apr, Hyponatremia E87.1 ; Fasciculations of muscle R25.[address] [facility] [id number] [place] [address] 67253- 0292 Apr, Cough R05 ; Hyponatremia E87.1 ; Fasciculations of muscle R25.3 ; Primary insomnia F51.01 ; Essential hypertension I10 ; Hyperlipidemia E78.5 ; Screening for breast cancer Z12.31 and BMI 40.0-44.9, adult Z68.41 [place] [id number] [place] [address] 27340- 0409 Apr, Essential hypertension I10 [facility] [id number] [place] [address] 87670- 2205 14 Mar, 2017 [facility] [id number] [place] [address] 05094- 8665 Mar, [facility] [id number] [place] [address] 95424- 7531 09 Mar, 2017 [facility] [id number] [place] [address] 24061- 1997 17 Feb, 2017 [facility] [id number] [place] [address] 04637- 9631 19 Jan, 2017 [facility] [id number] [place] [address] 55673- 7870 Dec, Essential hypertension I10 [facility] [address], [place] [address] Dec, [facility] [id number] [place] [address] 24888- 8537 Dec, Essential hypertension I10 [facility] [id number] [place] [address] 81148- 3051 Nov, [facility] [id number] [place] [address] 30235- 9510 Oct, Essential hypertension I10 [facility] [id number] [place] [address] 95336- 1459 Oct, Essential hypertension I10 [facility] [id number] [place] [address] 04192- 3639 Oct, [facility] [id number] [place] [address] 10214- 2650 September, [facility] [id number] [place] [address] 45040- 9553 September, Essential hypertension I10 [facility] [id number] [place] [address] 11868- 7551 September, [facility] [id number] [place] [address] 01758- 3157 September, Essential hypertension I10 ; Hyperlipidemia E78.[address] [facility] [address], [place] [address] 0270 September, Mild intermittent asthma without complication J45.20 ; Essential hypertension I10 ; Hyperlipidemia E78.5 ; Hyponatremia E87.[address] [facility] [id number] [place] [address] 92407- 8195 September, Other chronic gastritis without hemorrhage K29.50 ; Paroxysmal atrial fibrillation I48.0 and Essential hypertension I10 [facility] [id number] [place] [address] 05618- 1146 Aug, [facility] [id number] [place] [address] 25643- 3719 Jul, [facility] [id number] [place] [address] 45945- 2705 14 Jun, 2016 [facility] [id number] [place] [address] 36902 -9497 07 Jun, 2016 Dysuria R30.0 and Acute cystitis with hematuria N30.01 [facility] [id number] [place] [address] 25922- 8507 Jun, Essential hypertension I10 [facility] [address] 63860- 6340 May, Paroxysmal atrial fibrillation I48.0 [facility] [id number] [place] [address] 01481- 2681 May, Other chronic gastritis without hemorrhage K29.50 [facility] [id number] [place] [address] 90529- 3330 May, [facility] [id number] [place] [address] 93940- 6787 May, Hyponatremia E87.1 ; Essential hypertension I10 and Other chronic gastritis without hemorrhage K29.50 [facility] [id number] [place] [address] 79466- 4910 May, Hyponatremia E87.1 [facility] [id number] [place] [address] 75249- 4720 May, Hyponatremia E87.1 [facility] [id number] [place] [address] [id number] May, [facility] [id number] [place] [address] 80800- 1781 16 Apr, 2016 [facility] [id number] [place] [address] 42866- 4301 Apr, [facility] [id number] [place] [address] 01645- 0794 Mar, Essential hypertension I10 and Candidal intertrigo B37.2 [facility] [address] 69614- 0375 Mar, Hyponatremia E87.1 [facility] [address] 59654- 5417 Mar, [facility] [address] 18881- 2852 Mar, Hyponatremia E87.1 [place] [address] 45425- 3772 Mar, Essential hypertension I10 ; Hyponatremia E87.1 ; Slurred speech R47.81 ; Paroxysmal atrial fibrillation I48.0 and Elevated blood sugar R73.9 [facility] [address] 27628- 5592 Mar, [facility] [address] 34769- 6887 Mar, [facility] [address] 34494- 5404 Feb, [facility] [id number] [place] [address] 92396- 5712 Jan, [facility] [address] 28039- 5621 Dec, [facility] [id number] [place] [address] 56182 -6135 Nov, Scratched by cat, initial encounter W55.03XA and Other injury of unspecified body region T14.8 [facility] [id number] [place] [address] 38069- 2883 Nov, [facility] [id number] [place] [address] 07667- 6949 Oct, [place] [id number] [place] [address] 94183- 4152 September, [facility] [id number] [place] [address] 09171- 9097 Aug, Elevated alkaline phosphatase level R74.8 [facility] [id number] [place] [address] 86783- 5292 Jul, [facility] [address] 13641- 3386 Jun, Essential hypertension I10 and Bright red blood per rectum K62.5 [place] [id number] [place] [address] 15581- 6578 Jun, Elevated alkaline phosphatase level R74.8 [place] [id number] [place] [address] 65193- 1972 Jun, [facility] [id number] [place] [address] 53925- 7939 May, Essential hypertension I10 ; Hyperlipidemia E78.5 and Well woman exam (no gynecological exam) Z00.00 [place] [id number] [place] [address] 47755- 7196 May, [facility] [id number] [place] [address] 76816- 4250 May, [place] [id number] [place] [address] 58972- 4262 Mar, [facility] [id number] [place] [address] 84476- 8429 Mar, [place] [id number] [place] [address] 75580- 8091 Mar, [facility] [id number] [place] [address] 55461- 2426 Feb, Acute recurrent maxillary sinusitis J01.01 ; Asthma, unspecified, unspecified status 493.90 ; Seasonal allergies J30.2 and Cat allergies J30.81 [facility] [address], [place] [address]- 6996 Feb, Upper respiratory tract infection, unspecified upper respiratory infection J06.9 [facility] [id number] [place] [address] 57940- 4997 Jan, [place] [id number] [place] [address] 38695- 4025 Jan, Dysphagia 787.20 and GERD (gastroesophageal reflux disease) 530.81 [place] [id number] [place] [address] 696625- 3450 Jan, Breast lesion 611.9 [place] [id number] [place] [address] 57738- 1146 Dec, Breast lesion 611.9 [place] [id number] [place] [address] 99160- 0667 Dec, Breast lesion 611.9 [place] [id number] [place] [address] 88927- 9483 Nov, Fatigue 780.79 and Hyperlipidemia 272.4 [place] [id number] [place] [address] 07692- 2387 Nov, Hypertension 401.9 ; Hyperlipidemia 272.4 ; Chronic frontal sinusitis 473.1 and Fatigue 780.79 [place] [id number] [place] [address] 15116- 3847 Nov, [place] [id number] [place] [address] 97008- 2388 Oct, [place] [id number] [place] [address] 00647- 7533 Oct, [place] [id number] [place] [address] [id number]- 1834 September, [place] [id number] [place] [address] 14670- 9999 September, [facility] [place] [facility] [address] [id number] [place] [address]- 8328 September, [facility] [place] [facility] [address] [id number] [place] [address]- 2005 September, [facility] [place] [facility] [address] [id number] [place] [address]- 1916 28 Aug, 2014 [facility] [place] [facility] [address] [id number] [place] [address]- 9075 14 Aug, 2014 [facility] [place] [facility] [address] [id number] [place] [address]- 8766 13 Aug, 2014 [facility] [place] [facility] [address] [id number] [place] [address]- 8384 20 Jul, 2014 [facility] [place] [facility] [address] [id number] [place] [address]- 2546 20 Jul, 2014 [facility] [place] [facility] [address] [id number] [place] [address]- 6004 19 Jul, 2014 [facility] [place] [facility] [address] [id number] [place] [address]- 7097 19 Jul, 2014 [facility] [place] [facility] [address] [id number] [place] [address]- 4880 18 Jul, 2014 [facility] [place] [facility] [address] [id number] [place] [address]- 1729 17 Jul, 2014 [facility] [place] [facility] [address] [id number] [place] [address]- 7180 17 Jul, 2014 [facility] [place] [facility] [address] [id number] [place] [address]- 1076 16 Jul, 2014 [facility] [place] [facility] [address] [id number] [place] [address]- 7123 16 Jul, 2014 [facility] [place] [facility] [address] [id number] [place] [address]- 2914 12 Jul, 2014 [facility] [place] [facility] [address] [id number] [place] [address]- 8726 Jul, [facility] [place] [facility] [address] [id number] [place] [address]- 1147 Jul, [facility] [place] [facility] [address] [id number] [place] [address]- 0006 Jul, [facility] [place] [facility] [address] [facility] [id number] [place] [address]- 9379 Jul, [facility] [place] [facility] [address] [id number] [place] [address]- 5637 Jul, [facility] [place] [facility] [address] [id number] [place] [address]- 1041 Jun, [facility] [place] [facility] [address] [id number] [place] [address]- 0593 Jun, [facility] [place] [facility] [address] [facility] [id number] [place] [address]- 9679 Jun, [facility] [place] [facility] [address] [facility] [id number] [place] [address]- 2051 Jun, [facility] [place] [facility] [address] [facility] [id number] [place] [address]- 1167 May, [facility] [place] [facility] [address] [facility] [id number] [place] [address]- 1846 May, [facility] [place] [facility] [address] [facility] [id number], [place] [address]- 0932 May, [facility] [place] [facility] [address] [id number], [place] [address]- 1943 May, [facility] [place] [facility] [address] [id number] [place] [address]- 4128 Apr, [facility] [place] [facility] [address] [id number] [place] [address]- 6636 Apr, [facility] [place] [facility] [address] [facility] [id number] [place] [address]- 9251 Apr, [facility] [place] [facility] [address] [id number] [place] [address]- 3294 Apr, [facility] [place] [facility] [address] [id number] [place] [address]- 1643 Apr, [facility] [place] [facility] [address] [id number] [place] [address]- 9406 Apr, [facility] [place] [facility] [address] [id number] [place] [address]- 6300 Mar, [facility] [place] [facility] [address] [id number] [place] [address]- 1923 Mar, [facility] [place] [facility] [address] [id number] [place] [address]- 6016 Mar, [facility] [place] [facility] [address] [id number] [place] [address]- 2642 Mar, [facility] [place] [facility] [address] [id number] [place] [address]- 7502 Mar, [facility] [place] [facility] [address] [id number] [place] [address]- 2381 Mar, [facility] [place] [facility] [address] [id number] [place] [address]- 9716 Mar, [facility] [place] [facility] [address] [id number] [place] [address]- 2686 Mar, [facility] [place] [facility] [address] [id number] [place] [address]- 3023 Mar, [facility] [place] [facility] [address] [id number] [place] [address]- 4976 Mar, [facility] [place] [facility] [address] [id number] [place] [address]- 8359 Mar, [facility] [place] [facility] [address] [id number] [place] [address]- 0034 Mar, [facility] [place] [facility] [address] [id number] [place] [address]- 0852 Mar, [facility] [place] [facility] [address] [id number] [place] [address]- 3326 Mar, [facility] [place] [facility] [address] [id number] [place] [address]- 5556 Mar, [facility] [place] [facility] [address] [id number] [place] [address]- 6025 Mar, [facility] [place] [facility] [address] [id number] [place] [address]- 1245 Mar, [facility] [place] [facility] [address] [id number] [place] [address]- 1081 Feb, [facility] [place] [facility] [address] [id number] [place] [address]- 6312 Feb, [facility] [place] [facility] [address] [id number] [place] [address]- 8624 Feb, [facility] [place] [facility] [address] [id number] [place] [address]- 2646 30 Feb, 2014 [facility] [place] [facility] [address] [id number] [place] [address]- 3423 29 Feb, 2014 [facility] [place] [facility] [address] [id number], [place] [address]- 0042 Feb, [facility] [place] [facility] [address] [id number], [place] [address]- 7338 Feb, [facility] [place] [facility] [address] [id number], [place] [address]- 3686 Feb, [facility] [place] [facility] [address] [id number] [place] [address]- 0639 Feb, [facility] [place] [facility] [address] [id number] [place] [address]- 2725 Feb, [facility] [place] [facility] [address] [id number], [place] [address]- 0562 16 Feb, 2014 [facility] [place] [facility] [address] [id number] [place] [address]- 4203 16 Feb, 2014 [facility] [place] [facility] [address] [id number] [place] [address]- 0229 15 Feb, 2014 [facility] [place] [facility] [address] [id number] [place] [address]- 3716 15 Feb, 2014 [facility] [place] [facility] [address] [id number] [place] [address]- 9279 08 Feb, 2014 [facility] [place] [facility] [address] [id number] [place] [address]- 4195 08 Feb, 2014 [facility] [place] [facility] [address] [id number] [place] [address]- 4265 Feb, [facility] [place] [facility] [address] [id number] [place] [address]- 8480 Feb, [facility] [place] [facility] [address] [id number] [place] [address]- 3255 Feb, [facility] [place] [facility] [address] [id number] [place] [address]- 5695 30 Sep, 2013 [facility] [place] [facility] [address] [id number] [place] [address] 2546 30 Sep, 2013 [facility] [place] [facility] [address] [id number] [place] [address]- 2543 29 Sep, 2013 [facility] [place] [facility] [address] [id number] [place] [address] 2546 29 Sep, 2013 [facility] [place] [facility] [address] [id number] [place] [address]- 2540 24 Sep, 2013 [facility] [place] [facility] [address] [id number] [place] [address] 2546 24 Sep, 2013 [facility] [place] [facility] [address] [id number] [place] [address]- 2546 10 Jan, 2013 [facility] [place] [facility] [address] [id number] [place] [address]- 2547 08 Jan, 2014 [facility] [place] [facility] [address] [id number] [place] [address] Jan, [facility] [place] [facility] [address] [id number] [place] [address] Dec, [facility] [place] [facility] [address] [id number] [place] [address] Dec, [facility] [place] [facility] [address] [id number] [place] [address] Dec, [facility] [place] [facility] [address] [id number] [place] [address] Dec, [facility] [place] [facility] [address] [id number] [place] [address] Dec, [facility] [place] [facility] [address] [id number] [place] [address] Dec, [facility] [place] [facility] [address] [id number] [place] [address] Dec, [facility] [place] [facility] [address] [id number] [place] [address] Dec, [facility] [place] [facility] [address] [id number] [place] [address] Dec, [facility] [place] [facility] [address] [id number] [place] [address] Nov, [facility] [place] [facility] [address] [id number] [place] [address] Nov, [facility] [place] [facility] [address] [id number] [place] [address] Nov, [facility] [place] [facility] [address] [id number] [place] [address] Nov, [facility] [place] [facility] [address] [id number] [place] [address] Nov, [facility] [place] [facility] [address] [id number] [place] [address] Nov, [facility] [place] [facility] [address] [id number] [place] [address] Oct, [facility] [place] [facility] [address] [id number] [place] [address] Oct, [facility] [place] [facility] [address] [id number] [place] [address]- [address] Oct, [facility] [place] [facility] [address] [id number] [place] [address]- [address] Oct, [facility] [place] [facility] [address] [id number] [place] [address] Oct, [facility] [place] [facility] [address] [id number] [place] [address]- [address] Oct, [facility] [place] [facility] [address] [id number] [place] [address]- [address] Oct, [facility] [place] [facility] [address] [id number] [place] [address]- [address] Oct, [facility] [place] [facility] [address] [id number] [place] [address] Oct, [facility] [place] [facility] [address] [id number] [place] [address] Oct, [facility] [place] [facility] [address] [id number], [place] [address] Oct, [facility] [place] [facility] [address] [id number], [place] [address] Oct, [facility] [place] [facility] [address] [id number] [place] [address] Oct, [facility] [place] [facility] [address] [id number] [place] [address] Oct, [facility] [place] [facility] [address] [id number] [place] [address]- [address] September, [facility] [place] [facility] [address] [id number] [place] [address] September, [facility] [address] [id number] [place] [address] September, [facility] [address] [id number] [place] [address] September, [facility] [address] [id number] [place] [address] September, [facility] [address] [id number] [place] [address] September, [facility] [address] [id number] [place] [address] September, [facility] [address] [id number] [place] [address]- [address] September, [facility] [address] [id number] [place] [address]- [address] September, [facility] [address] [id number] [place] [address]- [address] September, [facility] [address] [id number] [place] [address]- [address] September, [facility] [address] [id number] [place] [address]- [address] September, [facility] [address] [id number] [place] [address] September, [facility] [address] [id number] [place] [address] September, [facility] [place] [facility] [address] [id number] [place] [address] September, [facility] [address] [id number] [place] [address] September, [facility] [address] [id number] [place] [address]68 September, [facility] [place] [facility] [address] [id number] [place] [address] September, [facility] [place] [facility] [address] [id number] [place] [address] September, [facility] [place] [facility] [address] [id number] [place] [address] Aug, [facility] [place] [facility] [address] [id number] [place] [address]- 6518 Aug, [facility] [place] [facility] [address] [id number] [place] [address]- 12[address] Jul, [facility] [place] [facility] [address] [id number] [place] [address]- [address] Jul, [facility] [place] [facility] [address] [id number] [place] [address]- 267[address] Jul, [facility] [place] [facility] [address] [id number] [place] [address]- 8053 Jul, [facility] [place] [facility] [address] [id number] [place] [address]- 4731 Jul, [facility] [place] [facility] [address] [id number] [place] [address]- 9018 Jul, [facility] [place] [facility] [address] [id number] [place] [address]- 4627 Jul, [facility] [place] [facility] [address] [id number] [place] [address] Jul, [facility] [place] [facility] [address] [id number] [place] [address]- 7102 Jul, [facility] [place] [facility] [address] [id number] [place] [address]- [address]64 25 Jul, 2013 [facility] [place] [facility] [address] [id number] [place] [address]- 99[address] 14 Jul, 2013 [facility] [place] [facility] [address] [id number] [place] [address]- 0[address] 14 Jul, 2013 [facility] [place] [facility] [address] [id number] [place] [address]- 8021 Jul, [facility] [place] [facility] [address] [id number] [place] [address]- 1039 Jul, [facility] [place] [facility] [address] [id number] [place] [address]- 0909 Jun, [facility] [place] [facility] [address] [id number] [place] [address]- 2229 Jun, [facility] [place] [facility] [address] [id number] [place] [address]- 3174 Jun, [facility] [place] [facility] [address] [id number] [place] [address]- 3968 Jun, [facility] [place] [facility] [address] [id number] [place] [address]- 8532 May, [facility] [place] [facility] [address] [id number] [place] [address]- 9887 May, [facility] [place] [facility] [address] [id number] [place] [address]- 7343 May, [facility] [place] [facility] [address] [id number] [place] [address]- 5088 May, [facility] [place] [facility] [address] [id number] [place] [address]- 7798 May, [facility] [place] [facility] [address] [id number] [place] [address]- 5266 Mar, [facility] [place] [facility] [address] [id number] [place] [address]- 4428 Mar, [facility] [place] [facility] [address] [id number] [place] [address]- 7972 Mar, [facility] [place] [facility] [address] [id number] [place] [address]- 2738 Mar, [facility] [place] [facility] [address] [id number] [place] [address]- 4441 Mar, [facility] [place] [facility] [address] [id number] [place] [address]- 2266 Mar, [facility] [place] [facility] [address] [id number] [place] [address]- 3507 Feb, [facility] [place] [facility] [address] [id number] [place] [address]- 48[address] Feb, [facility] [place] [facility] [address] [id number] [place] [address]- 7864 Feb, [facility] [place] [facility] [address] [id number] [place] [address]- 0905 Feb, [facility] [place] [facility] [address] [id number] [place] [address]- 8628 Feb, [facility] [place] [facility] [address] [id number] [place] [address]- 6868 Feb, [facility] [place] [facility] [address] [id number] [place] [address]- 6765 Feb, [facility] [place] [facility] [address] [id number] [place] [address]- 6060 Feb, [facility] [place] [facility] [address] [id number] [place] [address]- 8600 Feb, [facility] [place] [facility] [address] [id number] [place] [address]- 0536 Feb, [facility] [place] [facility] [address] [id number] [place] [address]- 8263 Feb, [facility] [place] [facility] [address] [id number] [place] [address]- 6400 Feb, [facility] [place] [facility] [address] [id number] [place] [address]- 0739 Jan, [facility] [place] [facility] [address] [id number] [place] [address]- 9856 Jan, [facility] [address] [id number] [place] [address]- 5883 Dec, [facility] [place] [facility] [address] [id number] [place] [address]- 3426 Dec, [facility] [place] [facility] [address] [id number] [place] [address]- 2183 Nov, [facility] [place] [facility] [address] [id number] [place] [address]- 0489 Nov, [facility] [place] [facility] [address] [id number] [place] [address]- 6889 Nov, [facility] [place] [facility] [address] [id number] [place] [address]- 5304 Nov, [facility] [place] [facility] [address] [id number] [place] [address]- 3818 Nov, [facility] [place] [facility] [address] [id number] [place] [address]- 2438 Oct, [facility] [place] [facility] [address] [id number] [place] [address]- 3128 September, [facility] [place] [facility] [address] [id number] [place] [address]- 2287 Aug, [facility] [place] [facility] [address] [id number] [place] [address]- 4901 Jul, [facility] [place] [facility] [address] [id number] [place] [address] 2542 Jul, [facility] [place] [facility] [address] [id number] [place] [address]- 2544 Jul, [facility] [place] [facility] [address] [id number] [place] [address]- 0873 Jun, [facility] [place] [facility] [address] [id number] [place] [address]- 2706 Jun, [facility] [place] [facility] [address] [id number] [place] [address]- 1898 12 Jun, 2012 [facility] [place] [facility] [address] [id number] [place] [address]- 9702 Jun, [facility] [place] [facility] [address] [id number] [place] [address] 07 Jun, 2012 [facility] [place] [facility] [address] [id number] [place] [address]- 7700 May, [facility] [place] [facility] [address] [id number] [place] [address]- 3904 May, [facility] [place] [facility] [address] [id number] [place] [address]- 1476 Apr, [facility] [place] [facility] [address] [id number] [place] [address]- 6408 Apr, [facility] [place] [facility] [address] [id number] [place] [address]- 2983 Mar, [facility] [place] [facility] [address] [id number] [place] [address]- 7825 Mar, [facility] [place] [facility] [address] [id number] [place] [address]- 1591 Mar, [facility] [place] [facility] [address] [id number] [place] [address]- 6922 Mar, [facility] [place] [facility] [address] [id number] [place] [address]- 4294 Mar, [facility] [place] [facility] [address] [id number] [place] [address]- 9718 Mar, [facility] [place] [facility] [address] [id number] [place] [address]- 3106 Mar, [facility] [place] [facility] [address] [id number] [place] [address] Mar, [facility] [place] [facility] [address] [id number] [place] [address] 8758 Mar, [facility] [place] [facility] [address] [id number] [place] [address] 2545 Mar, [facility] [place] [facility] [address] [id number] [place] [address]- 4886 Feb, [facility] [place] [facility] [address] [id number] [place] [address] 2543 Feb, [facility] [place] [facility] [address] [id number] [place] [address]- 9925 Feb, [facility] [place] [facility] [address] [id number] [place] [address]- 6657 Feb, [facility] [place] [facility] [address] [id number] [place] [address]- 4686 Feb, [facility] [place] [facility] [address] [id number] [place] [address]- 2546 Feb, [facility] [place] [facility] [address] [id number] [place] [address]- 1734 Jan, [facility] [place] [facility] [address] [id number] [place] [address]- 9531 Jan, [facility] [place] [facility] [address] [id number] [place] [address]- 1597 Dec, [facility] [place] [facility] [address] [id number], [place] [address]- 2546 Dec, [facility] [place] [facility] [address] [id number], [place] [address]- 5455 Dec, [facility] [place] [facility] [address] [id number] [place] [address]- 2546 Nov, [facility] [place] [facility] [address] [id number], [place] [address]- 4096 September, [facility] [place] [facility] [address] [id number] [place] [address]- 2546 September, [facility] [place] [facility] [address] [id number] [place] [address]- 6590 September, [facility] [address] [id number] [place] [address]- 6298 September, [facility] [place] [facility] [address] [id number] [place] [address]- 0413 23 Aug, 2011 [facility] [place] [facility] [address] [id number] [place] [address]- 8143 Aug, [facility] [place] [facility] [address] [id number] [place] [address]- 1252 Aug, [facility] [address] [id number] [place] [address]- 0341 Aug, [facility] [place] [facility] [address] [facility] [id number] [place] [address]- 4678 05 Aug, 2011 [facility] [place] [facility] [address] [facility] [id number] [place] [address]- 6245 Jul, [facility] [place] [facility] [address] [id number] [place] [address]- 2430 05 Jul, 2011 [facility] [place] [facility] [address] [facility] [id number] [place] [address]- 7895 02 Jul, 2011 [facility] [place] [facility] [address] [facility] [id number] [place] [address]- 6126 29 Jun, 2011 [facility] [place] [facility] [address] [facility] [id number] [place] [address]- 4806 17 Jun, 2011 [facility] [place] [facility] [address] [facility] [id number] [place] [address]- 4331 13 Jun, 2011 [facility] [place] [facility] [address] [id number] [place] [address]- 1983 10 Jun, 2011 [facility] [place] [facility] [address] [facility] [id number] [place] [address]- 2546 07 Jun, 2011 [facility] [place] [facility] [address] [facility] [id number] [place] [address]- 3716 Jun, [facility] [address] [id number] [place] [address]- 8014 Jun, [facility] [place] [facility] [address] [id number] [place] [address]- 8401 May, [facility] [place] [facility] [address] [id number] [place] [address]- 6755 May, [facility] [place] [facility] [address] [id number] [place] [address]- 8234 May, [facility] [place] [facility] [address] [id number] [place] [address]- 4668 May, [facility] [place] [facility] [address] [id number] [place] [address]- 3798 Apr, [facility] [place] [facility] [address] [id number] [place] [address]- 3163 Apr, [facility] [place] [facility] [address] [id number] [place] [address]- 5732 Mar, [facility] [place] [facility] [address] [id number] [place] [address]- 4294 Mar, [facility] [place] [facility] [address] [id number] [place] [address]- 4878 Mar, [facility] [place] [facility] [address] [id number], [place] [address]- 6290 Nov, [facility] [place] [facility] [address] [id number], [place] [address]- 3580 13 May, 2010 [facility] [place] [facility] [address] [id number] [place] [address]- 6917 Apr, [facility] [place] [facility] [address] [id number] [place] [address]- 5751 13 Apr, 2010 [facility] [place] [facility] [address] [id number] [place] [address]- 1002 13 Apr, 2010 [facility] [place] [facility] [id number], [place] [address] Apr, [facility] [id number] [address] Apr, [facility] [id number] [address] 9916 Mar, [facility] [id number] [address] 4866 Mar, [facility] [id number] [address] 2693 Feb, [facility] [id number] [place] [address]287 Aug, [facility] [id number], [place] [address] Jul, [facility] [id number] [place] [address]36 Jun, [facility] [id number] [address] 5722 Apr, [facility] [id number] [address] 4806 Apr, [facility] [id number] [address] 5771 Mar, [facility] [id number] [address] 6616 Mar, [facility] [id number] [address] 4693 Feb, [facility] [id number], [place] [address] Dec, [facility] [id number], [place] [address]- 6500 Oct, IMMUNIZATIONS No Known Immunizations SOCIAL HISTORY Never Assessed REASON FOR VISIT Lab orders/am cortisol PLAN OF CARE VITAL SIGNS MEDICATIONS Unknown [...] Hospitalization History surgery 2013 Hospitalization History A Fib--[facility] 03/08/2016 Hospitalization History acute chest pain, hypertensive urgency, paroxsysmal htn-[facility] 05/10/16
--- OUTSIDE RECORDS SUMMARY | 2018-09-17 12:01 | XMS REPORT ---
Author Author ELIZABETH SERNA Organization [facility] Address [address] [place] [address] Care Team Providers Care Bumper Straightener Name Role Phone ELIZABETH SERNA Unavailable PROBLEMS Type Condition ICD9-CM Code [id number] Code Onset Dates Condition Status SNOMED Code Problem Elevated alkaline phosphatase level R74.8 Active 559489164 Problem Essential hypertension I10 Active 96087575 Problem Obstructive sleep apnea G47.33 Active 30566362 Problem Other chronic gastritis without hemorrhage K29.50 Active 4797211 Problem Paroxysmal atrial fibrillation I48.0 Active 349493502 Problem Vitamin D deficiency E55.9 Active 94638778 Problem Hyperlipidemia E78.5 Active 27874787 Problem Chronic frontal sinusitis J32.1 Active 41439081 Problem Hyponatremia E87.1 Active 74116537 Problem Seasonal allergies J30.2 Active 464230247 Problem Mild intermittent asthma without complication J45.20 Active 280325030 Problem Chronic migraine G43.709 Active 21660051 Problem Primary insomnia F51.01 Active 126426749 Problem Hidradenitis L73.2 Active 50816653 Problem Generalized anxiety disorder F41.1 Active 741737562 Problem Idiopathic peripheral neuropathy G60.9 Active 00058907 ALLERGIES Unknown Allergies SOCIAL HISTORY No smoking Hx information available PLAN OF CARE VITAL SIGNS MEDICATIONS Medication Instructions Dosage Frequency Start Date End Date Duration Status ProAir HFA 90 mcg/actuation 2 puffs by Inhalation route 4 times per day PRN needs to keep appointment 01-10-14 Dec, Active Ambien 5 MG take 1 tablet by Oral route at bedtime 1 time per day Jul, 28 days Active Protonix 40 MG Orally Once a day 1 tablet 24h Active Xarelto 20 mg Orally Once a day 1 tablet with food 24h Active Metoprolol Succinate ER 50 MG Orally Once a day 1 tablet 24h Active CarBAMazepine ER 200 MG Orally once a day in am & 2 tabs every pm 1 capsule Active BusPIRone HCl 10 mg Orally Once a day 2 tablets 24h Active Klor-Con M20 20 MEQ Orally Once a day 1 tablet with food 24h Active Diltiazem CD 240 MG Orally Once a day 1 capsule 24h Active Lisinopril 40 MG Orally Once a day 1 tablet 24h Mar, 90 days Active Carafate 1 GM 1 TAB(S) PO QIDACHS Active Nortriptyline HCl 25 MG Orally Once a day at bedtime 2 capsule Active Amlodipine Besylate 10 MG Orally Once a day 1 tablet 24h Active Abilify 5 MG Orally Once a day 1 tablet 24h Active Alprazolam 0.5 mg take 1 tablet by Oral route 2 times per day Jan, Active Hydrochlorothiazide 12.5 MG Orally Once a day 1 tablet 24h Active Flonase 50 MCG/ACT Nasally Once a day 1 spray in each nostril 24h Nov, Active Viibryd 20 mg Orally Once a day 1 tablet 24h Active RESULTS No Results PROCEDURES No Known procedures IMMUNIZATIONS No Known Immunizations
--- OUTSIDE RECORDS SUMMARY | 2018-09-17 12:02 | XMS REPORT ---
Author Author JORDY DESIREE 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 Name Role Phone DESIREE SPENCE Unavailable PROBLEMS Type Condition ICD9-CM Code BLN20-PQ Code Onset Dates Condition Status SNOMED Code Problem Hyponatremia E87.1 Active 64619274 Problem Paroxysmal atrial fibrillation I48.0 Active 960334169 Problem Chronic frontal sinusitis J32.1 Active 18066699 Problem Chronic kidney disease, unspecified CKD stage N18.9 Active 040183129 Problem Primary insomnia F51.01 Active 085892108 Problem Secondary pulmonary arterial hypertension I27.21 Active 13128838 Problem Seasonal allergies J30.2 Active 872260568 Problem Fasciculations of muscle R25.3 Active 26960349 Problem Other chronic gastritis without hemorrhage K29.50 Active 9472581 Problem BMI 40.0-44.9, adult Z68.41 Active 010693417 Problem Depression, unspecified depression type F32.9 Active 65270721 Problem Chronic migraine G43.709 Active 03198254 Problem Hidradenitis L73.2 Active 51219921 Problem Generalized anxiety disorder F41.1 Active 941366442 Problem Mild intermittent asthma without complication J45.20 Active 491399955 Problem Obstructive sleep apnea G47.33 Active 72247211 Problem Essential hypertension I10 Active 10090570 Problem Idiopathic peripheral neuropathy G60.9 Active 63871920 Problem Hyperlipidemia E78.5 Active 33436158 Problem Elevated alkaline phosphatase level R74.8 Active 424519561 Problem Vitamin D deficiency E55.9 Active 46012766 ALLERGIES No Information ENCOUNTERS Encounter Location Date Diagnosis [facility] [address] [facility] [id number] [address] Nov, [facility] [address] [id number] [address] Oct, Essential hypertension I10 and Chronic kidney disease, unspecified CKD stage N18.9 [place] [id number] [place] [address] 18600- 8092 Oct, Essential hypertension I10 and Chronic kidney disease, unspecified CKD stage N18.9 [place] [id number] [place] [address] 98458- 3810 Oct, [place] [address] 98279- 6561 September, Medicare annual wellness visit, initial Z00.00 [...] and BMI 40.0-44.9, adult Z68.41 [place] [address] 7[address]16- 8735 30 Aug, 2017 Essential hypertension I10 [facility] [address] [address] Jun, Dysuria R30.0 ; UTI symptoms R39.9 and Candidiasis of breast B37.89 [place] [address] 93741- 9131 Jun, Hyponatremia E87.1 [place] [address] 97972- 4735 Jun, Hyponatremia E87.1 [place] [address] 23397- 5593 Jun, Hyponatremia E87.1 [facility] [address] 43922- 7133 Jun, [place] [address] 31864- 5443 May, Hyponatremia E87.1 [facility] [id number] [place] [address] 22070- 7967 May, Hyponatremia E87.1 [facility] [id number] [place] [address] 38653- 0124 May, Hyponatremia E87.1 [facility] [id number] [place] [address] 02402- 0315 May, Hyponatremia E87.1 [facility] [id number] [place] [address] 24884- 0759 Apr, Hyponatremia E87.1 ; Fasciculations of muscle R25.3 and Hyperlipidemia E78.5 [facility] [id number] [place] [address] 15603- 9553 Apr, Cough R05 ; Hyponatremia E87.1 ; Fasciculations of muscle R25.3 ; Primary insomnia F51.01 ; Essential hypertension I10 ; Hyperlipidemia E78.5 ; Screening for breast cancer Z12.31 and BMI 40.0-44.9, adult Z68.41 [place] [id number] [place] [address] 62433- 2366 Apr, Essential hypertension I10 [facility] [id number] [place] [address] 85875- 4899 14 Mar, 2017 [facility] [id number] [place] [address] 15697- 0801 Mar, [facility] [id number] [place] [address] 24577- 9779 09 Mar, 2017 [facility] [id number] [place] [address] 58090- 1024 17 Feb, 2017 [facility] [id number] [place] [address] 19066- 4661 19 Jan, 2017 [facility] [id number] [place] [address] 47844- 5612 Dec, Essential hypertension I10 [facility] [address], [place] [address] 3251 Dec, [facility] [id number] [place] [address] 79160- 2550 Dec, Essential hypertension I10 [facility] [id number] [place] [address] 23071- 1939 Nov, [facility] [id number] [place] [address] 01984- 2258 Oct, Essential hypertension I10 [facility] [id number] [place] [address] 09048- 8866 Oct, Essential hypertension I10 [facility] [id number] [place] [address] 18546- 5671 Oct, [facility] [id number] [place] [address] 04679- 9047 September, [facility] [address] [place] [address] 59927- 0085 September, Essential hypertension I10 [facility] [address] [place] [address] 93612- 5106 September, [facility] [address] [place] [address] 98722- 5450 September, Essential hypertension I10 ; Hyperlipidemia E78.5 and Hyponatremia E87.1 [facility] [address], [place] [address] 2042 September, Mild intermittent asthma without complication J45.20 ; Essential hypertension I10 ; Hyperlipidemia E78.5 ; Hyponatremia E87.1 and Dysuria R30.0 [facility] [address] [place] [address] 13484- 3679 September, Other chronic gastritis without hemorrhage K29.50 ; Paroxysmal atrial fibrillation I48.0 and Essential hypertension I10 [facility] [address] [place] [address] 55685- 9236 Aug, [facility] [address] [place] [address] 56319- 0782 Jul, [facility] [id number] [place] [address] 25210- 2146 14 Jun, 2016 [facility] [id number] [place] [address] 50737 -9818 07 Jun, 2016 Dysuria R30.0 and Acute cystitis with hematuria N30.01 [facility] [id number] [place] [address] 43697- 6788 Jun, Essential hypertension I10 [facility] [address] 05982- 0533 May, Paroxysmal atrial fibrillation I48.0 [facility] [id number] [place] [address] 75329- 0846 May, Other chronic gastritis without hemorrhage K29.50 [facility] [id number] [place] [address] 75524- 3020 May, [facility] [id number] [place] [address] 80792- 5134 May, Hyponatremia E87.1 ; Essential hypertension I10 and Other chronic gastritis without hemorrhage K29.50 [facility] [id number] [place] [address] 45165- 7691 May, Hyponatremia E87.1 [facility] [id number] [place] [address] 71088- 6435 May, Hyponatremia E87.1 [facility] [id number] [place] [address] [id number] May, [facility] [id number] [place] [address] 87733- 6877 16 Apr, 2016 [facility] [id number] [place] [address] 21388- 8406 Apr, [facility] [id number] [place] [address] 91099- 8985 Mar, Essential hypertension I10 and Candidal intertrigo B37.2 [facility] [address] 39846- 5097 Mar, Hyponatremia E87.1 [facility] [address] 03978- 9517 Mar, [facility] [address] 81550- 1944 Mar, Hyponatremia E87.1 [place] [address] 20033- 5311 Mar, Essential hypertension I10 ; Hyponatremia E87.1 ; Slurred speech R47.81 ; Paroxysmal atrial fibrillation I48.0 and Elevated blood sugar R73.9 [facility] [address] 03598- 6374 Mar, [facility] [address] 26731- 5659 Mar, [facility] [address] 86714- 1389 Feb, [facility] [id number] [place] [address] 43181- 5159 Jan, [facility] [address] 33776- 0956 Dec, [facility] [id number] [place] [address] 55605 -0740 Nov, Scratched by cat, initial encounter W55.03XA and Other injury of unspecified body region T14.8 [facility] [id number] [place] [address] 91076- 1680 Nov, [facility] [id number] [place] [address] 98047- 0021 Oct, [place] [address] [place] [address] 84943- 9809 September, [facility] [id number] [place] [address] 76964- 9225 Aug, Elevated alkaline phosphatase level R74.8 [facility] [id number] [place] [address] 17885- 3071 Jul, [facility] [address] 86168- 3898 Jun, Essential hypertension I10 and Bright red blood per rectum K62.5 [place] [id number] [place] [address] 85842- 1989 Jun, Elevated alkaline phosphatase level R74.8 [place] [id number] [place] [address] 86383- 6070 Jun, [facility] [id number] [place] [address] 44626- 3365 May, Essential hypertension I10 ; Hyperlipidemia E78.5 and Well woman exam (no gynecological exam) Z00.00 [place] [id number] [place] [address] 72903- 5359 May, [facility] [id number] [place] [address] 96933- 3451 May, [place] [id number] [place] [address] 26312- 2287 Mar, [facility] [id number] [place] [address] 79023- 6066 Mar, [place] [id number] [place] [address] 74754- 9461 Mar, [facility] [id number] [place] [address] 06936- 4050 Feb, Acute recurrent maxillary sinusitis J01.01 ; Asthma, unspecified, unspecified status 493.90 ; Seasonal allergies J30.2 and Cat allergies J30.81 [facility] [address], [place] [address]- 7368 Feb, Upper respiratory tract infection, unspecified upper respiratory infection J06.9 [facility] [address] [place] [address] 04683- 1556 Jan, [place] [id number] [place] [address] 07301- 2408 Jan, Dysphagia 787.20 and GERD (gastroesophageal reflux disease) 530.81 [place] [id number] [place] [address] 824299- 6541 Jan, Breast lesion 611.9 [place] [id number] [place] [address] 65359- 8018 Dec, Breast lesion 611.9 [place] [id number] [place] [address] 82429- 8104 Dec, Breast lesion 611.9 [place] [id number] [place] [address] 02518- 1884 Nov, Fatigue 780.79 and Hyperlipidemia 272.4 [id number] [place] [address] 36972- 1655 Nov, Hypertension 401.9 ; Hyperlipidemia 272.4 ; Chronic frontal sinusitis 473.1 and Fatigue 780.79 [place] [id number] [place] [address] 91943- 3937 Nov, [place] [id number] [place] [address] 91344- 7079 Oct, [place] [id number] [place] [address] 10344- 8028 Oct, [place] [id number] [place] [address] 55035303- 5847 September, [place] [id number] [place] [address] 46711- 7618 September, [facility] [place] [facility] [address] [id number] [place] [address]- 7508 September, [facility] [place] [facility] [address] [id number] [place] [address]- 6898 September, [facility] [place] [facility] [address] [id number] [place] [address]- 6466 28 Aug, 2014 [facility] [place] [facility] [address] [id number] [place] [address]- 2403 14 Aug, 2014 [facility] [place] [facility] [address] [id number] [place] [address]- 3923 13 Aug, 2014 [facility] [place] [facility] [address] [id number] [place] [address]- 0571 20 Jul, 2014 [facility] [place] [facility] [address] [id number] [place] [address]- 1186 20 Jul, 2014 [facility] [place] [facility] [address] [id number] [place] [address]- 0323 19 Jul, 2014 [facility] [place] [facility] [address] [id number] [place] [address]- 5036 19 Jul, 2014 [facility] [place] [facility] [address] [id number] [place] [address]- 8553 18 Jul, 2014 [facility] [place] [facility] [address] [id number] [place] [address]- 9704 17 Jul, 2014 [facility] [place] [facility] [address] [id number] [place] [address]- 0441 17 Jul, 2014 [facility] [place] [facility] [address] [id number] [place] [address]- 1117 16 Jul, 2014 [facility] [place] [facility] [address] [id number] [place] [address]- 9920 16 Jul, 2014 [facility] [place] [facility] [address] [id number] [place] [address]- 4764 12 Jul, 2014 [facility] [place] [facility] [address] [id number] [place] [address]- 5366 Jul, [facility] [place] [facility] [address] [id number] [place] [address]- 9047 Jul, [facility] [place] [facility] [address] [id number] [place] [address]- 9136 Jul, [facility] [place] [facility] [address] [facility] [id number] [place] [address]- 9733 Jul, [facility] [place] [facility] [address] [id number] [place] [address]- 4140 Jul, [facility] [place] [facility] [address] [id number] [place] [address]- 7691 Jun, [facility] [place] [facility] [address] [id number] [place] [address]- 8260 Jun, [facility] [place] [facility] [address] [facility] [id number] [place] [address]- 4512 Jun, [facility] [place] [facility] [address] [facility] [id number] [place] [address]- 2315 Jun, [facility] [place] [facility] [address] [facility] [id number] [place] [address]- 5948 May, [facility] [place] [facility] [address] [facility] [id number] [place] [address]- 1066 May, [facility] [place] [facility] [address] [facility] [id number], [place] [address]- 2886 May, [facility] [place] [facility] [address] [id number], [place] [address]- 3351 May, [facility] [place] [facility] [address] [id number] [place] [address]- 9246 Apr, [facility] [place] [facility] [address] [id number] [place] [address]- 0684 Apr, [facility] [place] [facility] [address] [facility] [id number] [place] [address]- 6435 Apr, [facility] [place] [facility] [address] [id number] [place] [address]- 0677 Apr, [facility] [place] [facility] [address] [id number] [place] [address]- 1814 Apr, [facility] [place] [facility] [address] [id number] [place] [address]- 6400 Apr, [facility] [place] [facility] [address] [id number] [place] [address]- 4367 Mar, [facility] [place] [facility] [address] [id number] [place] [address]- 8832 Mar, [facility] [place] [facility] [address] [id number] [place] [address]- 3014 Mar, [facility] [place] [facility] [address] [id number] [place] [address]- 6374 Mar, [facility] [place] [facility] [address] [id number] [place] [address]- 6549 Mar, [facility] [place] [facility] [address] [id number] [place] [address]- 0842 Mar, [facility] [place] [facility] [address] [id number] [place] [address]- 1729 Mar, [facility] [place] [facility] [address] [id number] [place] [address]- 3938 Mar, [facility] [place] [facility] [address] [id number] [place] [address]- 4567 Mar, [facility] [place] [facility] [address] [id number] [place] [address]- 5178 Mar, [facility] [place] [facility] [address] [id number] [place] [address]- 3994 Mar, [facility] [place] [facility] [address] [id number] [place] [address]- 7984 Mar, [facility] [place] [facility] [address] [id number] [place] [address]- 7498 Mar, [facility] [place] [facility] [address] [id number] [place] [address]- 7500 Mar, [facility] [place] [facility] [address] [id number] [place] [address]- 0659 Mar, [facility] [place] [facility] [address] [id number] [place] [address]- 1825 Mar, [facility] [place] [facility] [address] [id number] [place] [address]- 3987 Mar, [facility] [place] [facility] [address] [id number] [place] [address]- 5842 Feb, [facility] [place] [facility] [address] [id number] [place] [address]- 1030 Feb, [facility] [place] [facility] [address] [id number] [place] [address]- 6098 Feb, [facility] [place] [facility] [address] [id number] [place] [address]- 0731 30 Feb, 2014 [facility] [place] [facility] [address] [id number] [place] [address]- 3836 29 Feb, 2014 [facility] [place] [facility] [address] [id number], [place] [address]- 4484 Feb, [facility] [place] [facility] [address] [id number], [place] [address]- 3447 Feb, [facility] [place] [facility] [address] [id number], [place] [address]- 9990 Feb, [facility] [place] [facility] [address] [id number] [place] [address]- 9431 Feb, [facility] [place] [facility] [address] [id number] [place] [address]- 8915 Feb, [facility] [place] [facility] [address] [id number], [place] [address]- 0635 16 Feb, 2014 [facility] [place] [facility] [address] [id number] [place] [address]- 0993 16 Feb, 2014 [facility] [place] [facility] [address] [id number] [place] [address]- 2038 15 Feb, 2014 [facility] [place] [facility] [address] [id number] [place] [address]- 9006 15 Feb, 2014 [facility] [place] [facility] [address] [id number] [place] [address]- 6112 08 Feb, 2014 [facility] [place] [facility] [address] [id number] [place] [address]- 9586 08 Feb, 2014 [facility] [place] [facility] [address] [id number] [place] [address]- 1406 Feb, [facility] [place] [facility] [address] [id number] [place] [address]- 2976 Feb, [facility] [place] [facility] [address] [id number] [place] [address]- 2890 Feb, [facility] [place] [facility] [address] [id number] [place] [address]- 4534 30 Sep, 2013 [facility] [place] [facility] [address] [id number] [place] [address] 2546 30 Sep, 2013 [facility] [place] [facility] [address] [id number] [place] [address]- 2541 29 Sep, 2013 [facility] [place] [facility] [address] [id number] [place] [address] 2546 29 Sep, 2013 [facility] [place] [facility] [address] [id number] [place] [address]- 2544 24 Sep, 2013 [facility] [place] [facility] [address] [id number] [place] [address] 2546 24 Sep, 2013 [facility] [place] [facility] [address] [id number] [place] [address]- 2546 10 Jan, 2013 [facility] [place] [facility] [address] [id number] [place] [address]- 2548 08 Jan, 2014 [facility] [place] [facility] [address] [id number] [place] [address]- 4495 Jan, [facility] [place] [facility] [address] [id number] [place] [address]- 6212 Dec, [facility] [place] [facility] [address] [id number] [place] [address]- 7772 Dec, [facility] [place] [facility] [address] [id number] [place] [address] Dec, [facility] [place] [facility] [address] [id number] [place] [address] Dec, [facility] [place] [facility] [address] [id number] [place] [address] Dec, [facility] [place] [facility] [address] [id number] [place] [address] Dec, [facility] [place] [facility] [address] [id number] [place] [address] Dec, [facility] [place] [facility] [address] [id number] [place] [address] Dec, [facility] [place] [facility] [address] [id number] [place] [address] Dec, [facility] [place] [facility] [address] [id number] [place] [address] Nov, [facility] [place] [facility] [address] [id number] [place] [address] Nov, [facility] [place] [facility] [address] [id number] [place] [address] Nov, [facility] [place] [facility] [address] [id number] [place] [address] Nov, [facility] [place] [facility] [address] [id number] [place] [address] Nov, [facility] [place] [facility] [address] [id number] [place] [address] Nov, [facility] [place] [facility] [address] [id number] [place] [address] Oct, [facility] [place] [facility] [address] [id number] [place] [address] Oct, [facility] [place] [facility] [address] [id number] [place] [address] Oct, [facility] [place] [facility] [address] [id number] [place] [address] Oct, [facility] [place] [facility] [address] [id number] [place] [address] Oct, [facility] [place] [facility] [address] [id number] [place] [address] Oct, [facility] [place] [facility] [address] [id number] [place] [address] Oct, [facility] [place] [facility] [address] [id number] [place] [address] Oct, [facility] [place] [facility] [address] [id number] [place] [address] Oct, [facility] [place] [facility] [address] [id number] [place] [address] Oct, [facility] [place] [facility] [address] [id number], [place] [address] Oct, [facility] [place] [facility] [address] [id number], [place] [address] Oct, [facility] [place] [facility] [address] [id number] [place] [address] Oct, [facility] [place] [facility] [address] [id number] [place] [address] Oct, [facility] [place] [facility] [address] [id number] [place] [address] September, [facility] [place] [facility] [address] [id number] [place] [address] September, [facility] [address] [id number] [place] [address] September, [facility] [address] [id number] [place] [address] September, [facility] [address] [id number] [place] [address] September, [facility] [address] [id number] [place] [address] September, [facility] [address] [id number] [place] [address] September, [facility] [address] [id number] [place] [address] September, [facility] [address] [id number] [place] [address] September, [facility] [address] [id number] [place] [address] September, [facility] [address] [id number] [place] [address] September, [facility] [address] [id number] [place] [address] September, [facility] [address] [id number] [place] [address] September, [facility] [address] [id number] [place] [address] September, [facility] [place] [facility] [address] [id number] [place] [address] September, [facility] [address] [id number] [place] [address] 1006 September, [facility] [address] [id number] [place] [address] September, [facility] [place] [facility] [address] [id number] [place] [address] September, [facility] [place] [facility] [address] [id number] [place] [address] 2007 September, [facility] [place] [facility] [address] [id number] [place] [address] Aug, [facility] [place] [facility] [address] [id number] [place] [address] 3468 Aug, [facility] [place] [facility] [address] [id number] [place] [address] Jul, [facility] [place] [facility] [address] [id number] [place] [address] Jul, [facility] [place] [facility] [address] [id number] [place] [address]- 8665 Jul, [facility] [place] [facility] [address] [id number] [place] [address] 5115 Jul, [facility] [place] [facility] [address] [id number] [place] [address] 7999 Jul, [facility] [place] [facility] [address] [id number] [place] [address] 76[address] Jul, [facility] [place] [facility] [address] [id number] [place] [address] Jul, [facility] [place] [facility] [address] [id number] [place] [address] 2457 Jul, [facility] [place] [facility] [address] [id number] [place] [address] 33[address] Jul, [facility] [place] [facility] [address] [id number] [place] [address] 25 Jul, 2013 [facility] [place] [facility] [address] [id number] [place] [address]- 4[address] 14 Jul, 2013 [facility] [place] [facility] [address] [id number] [place] [address]- 6274 14 Jul, 2013 [facility] [place] [facility] [address] [id number] [place] [address]- 4187 Jul, [facility] [place] [facility] [address] [id number] [place] [address]- 4105 Jul, [facility] [place] [facility] [address] [id number] [place] [address] 4839 Jun, [facility] [place] [facility] [address] [id number] [place] [address]- 1113 Jun, [facility] [place] [facility] [address] [id number] [place] [address]- 2104 Jun, [facility] [place] [facility] [address] [id number] [place] [address]- 6461 Jun, [facility] [place] [facility] [address] [id number] [place] [address]- 9539 May, [facility] [place] [facility] [address] [id number] [place] [address]- 0594 May, [facility] [place] [facility] [address] [id number] [place] [address]- 6778 May, [facility] [place] [facility] [address] [id number] [place] [address]- 0425 May, [facility] [place] [facility] [address] [id number] [place] [address]- 2850 May, [facility] [place] [facility] [address] [id number] [place] [address]- 1329 Mar, [facility] [place] [facility] [address] [id number] [place] [address]- 5893 Mar, [facility] [place] [facility] [address] [id number] [place] [address]- 2670 Mar, [facility] [place] [facility] [address] [id number] [place] [address]- 8750 Mar, [facility] [place] [facility] [address] [id number] [place] [address]- 7435 Mar, [facility] [place] [facility] [address] [id number] [place] [address]- 6486 Mar, [facility] [place] [facility] [address] [id number] [place] [address]- 7679 Feb, [facility] [place] [facility] [address] [id number] [place] [address]- 1728 Feb, [facility] [place] [facility] [address] [id number] [place] [address]- 2766 Feb, [facility] [place] [facility] [address] [id number] [place] [address]- 3943 Feb, [facility] [place] [facility] [address] [id number] [place] [address]- 0640 Feb, [facility] [place] [facility] [address] [id number] [place] [address] 3932 Feb, [facility] [place] [facility] [address] [id number] [place] [address]- 8113 Feb, [facility] [place] [facility] [address] [id number] [place] [address]- 6666 Feb, [facility] [place] [facility] [address] [id number] [place] [address]- 8688 Feb, [facility] [place] [facility] [address] [id number] [place] [address]- 7918 Feb, [facility] [place] [facility] [address] [id number] [place] [address]- 6116 Feb, [facility] [place] [facility] [address] [id number] [place] [address]- 0641 Feb, [facility] [place] [facility] [address] [id number] [place] [address]- 2109 Jan, [facility] [place] [facility] [address] [id number] [place] [address]- 0766 Jan, [facility] [address] [id number] [place] [address]- 6931 Dec, [facility] [place] [facility] [address] [id number] [place] [address]- 2266 Dec, [facility] [place] [facility] [address] [id number] [place] [address]- 3557 Nov, [facility] [place] [facility] [address] [id number] [place] [address]- 8542 Nov, [facility] [place] [facility] [address] [id number] [place] [address]- 5226 Nov, [facility] [place] [facility] [address] [id number] [place] [address]- 4634 Nov, [facility] [place] [facility] [address] [id number] [place] [address]- 4719 Nov, [facility] [place] [facility] [address] [id number] [place] [address]- 5319 Oct, [facility] [place] [facility] [address] [id number] [place] [address]- 0542 September, [facility] [place] [facility] [address] [id number] [place] [address]- 1619 Aug, [facility] [place] [facility] [address] [id number] [place] [address]- 3252 Jul, [facility] [place] [facility] [address] [id number] [place] [address] 2548 Jul, [facility] [place] [facility] [address] [id number] [place] [address]- 254 Jul, [facility] [place] [facility] [address] [id number] [place] [address]- 1161 Jun, [facility] [place] [facility] [address] [id number] [place] [address]- 0117 Jun, [facility] [place] [facility] [address] [id number] [place] [address]- 2847 12 Jun, 2012 [facility] [place] [facility] [address] [id number] [place] [address]- 4918 Jun, [facility] [place] [facility] [address] [id number] [place] [address] 07 Jun, 2012 [facility] [place] [facility] [address] [id number] [place] [address]- 8413 May, [facility] [place] [facility] [address] [id number] [place] [address]- 8585 May, [facility] [place] [facility] [address] [id number] [place] [address]- 0586 Apr, [facility] [place] [facility] [address] [id number] [place] [address]- 2180 Apr, [facility] [place] [facility] [address] [id number] [place] [address]- 6471 Mar, [facility] [place] [facility] [address] [id number] [place] [address]- 9955 Mar, [facility] [place] [facility] [address] [id number] [place] [address]- 8981 Mar, [facility] [place] [facility] [address] [id number] [place] [address]- 1117 Mar, [facility] [place] [facility] [address] [id number] [place] [address]- 3902 Mar, [facility] [place] [facility] [address] [id number] [place] [address]- 5902 Mar, [facility] [place] [facility] [address] [id number] [place] [address]- 5958 Mar, [facility] [place] [facility] [address] [id number] [place] [address] Mar, [facility] [place] [facility] [address] [id number] [place] [address] 6153 Mar, [facility] [place] [facility] [address] [id number] [place] [address] 254 Mar, [facility] [place] [facility] [address] [id number] [place] [address]- 7236 Feb, [facility] [place] [facility] [address] [id number] [place] [address] 2542 Feb, [facility] [place] [facility] [address] [id number] [place] [address]- 4562 Feb, [facility] [place] [facility] [address] [id number] [place] [address]- 3151 Feb, [facility] [place] [facility] [address] [id number] [place] [address]- 6726 Feb, [facility] [place] [facility] [address] [id number] [place] [address]- 2546 Feb, [facility] [place] [facility] [address] [id number] [place] [address]- 2821 Jan, [facility] [place] [facility] [address] [id number] [place] [address]- 4927 Jan, [facility] [place] [facility] [address] [id number] [place] [address]- 2082 Dec, [facility] [place] [facility] [address] [id number], [place] [address]- 2546 Dec, [facility] [place] [facility] [address] [id number], [place] [address]- 7831 Dec, [facility] [place] [facility] [address] [id number] [place] [address]- 2546 Nov, [facility] [place] [facility] [address] [id number], [place] [address]- 2506 September, [facility] [place] [facility] [address] [id number] [place] [address]- 2546 September, [facility] [place] [facility] [address] [id number] [place] [address]- 4309 September, [facility] [address] [id number] [place] [address]- 7664 September, [facility] [place] [facility] [address] [id number] [place] [address]- 3527 23 Aug, 2011 [facility] [place] [facility] [address] [id number] [place] [address]- 4215 Aug, [facility] [place] [facility] [address] [id number] [place] [address]- 4022 Aug, [facility] [address] [id number] [place] [address]- 6903 Aug, [facility] [place] [facility] [address] [facility] [id number] [place] [address]- 2298 05 Aug, 2011 [facility] [place] [facility] [address] [facility] [id number] [place] [address]- 0583 Jul, [facility] [place] [facility] [address] [id number] [place] [address]- 9951 05 Jul, 2011 [facility] [place] [facility] [address] [facility] [id number] [place] [address]- 5341 02 Jul, 2011 [facility] [place] [facility] [address] [facility] [id number] [place] [address]- 1015 29 Jun, 2011 [facility] [place] [facility] [address] [facility] [id number] [place] [address]- 0716 17 Jun, 2011 [facility] [place] [facility] [address] [facility] [id number] [place] [address]- 4167 13 Jun, 2011 [facility] [place] [facility] [address] [id number] [place] [address]- 4193 10 Jun, 2011 [facility] [place] [facility] [address] [facility] [id number] [place] [address]- 2546 07 Jun, 2011 [facility] [place] [facility] [address] [facility] [id number] [place] [address]- 2406 Jun, [facility] [address] [id number] [place] [address]- 4189 Jun, [facility] [place] [facility] [address] [id number] [place] [address]- 4945 May, [facility] [place] [facility] [address] [id number] [place] [address]- 6612 May, [facility] [place] [facility] [address] [id number] [place] [address]- 0449 May, [facility] [place] [facility] [address] [id number] [place] [address]- 9317 May, [facility] [place] [facility] [address] [id number] [place] [address]- 6187 Apr, [facility] [place] [facility] [address] [id number] [place] [address]- 6301 Apr, [facility] [place] [facility] [address] [id number] [place] [address]- 7000 Mar, [facility] [place] [facility] [address] [id number] [place] [address]- 2017 Mar, [facility] [place] [facility] [address] [id number] [place] [address]- 3911 Mar, [facility] [place] [facility] [address] [id number], [place] [address]- 0583 Nov, [facility] [place] [facility] [address] [id number], [place] [address]- 9884 13 May, 2010 [facility] [place] [facility] [address] [id number] [place] [address]- 1562 Apr, [facility] [place] [facility] [address] [id number] [place] [address]- 7707 13 Apr, 2010 [facility] [place] [facility] [address] [id number] [place] [address]- 3836 13 Apr, 2010 [facility] [place] [facility] [address], [place] [address] 2546 Apr, [facility] [address], [place] [address]- 0126 Apr, [facility] [address], [place] [address] 2546 Mar, [facility] [address], [place] [address]- 2546 Mar, [facility] [address], [place] [address]- 1725 Feb, [facility] [id number] [place] [address]- 6076 Aug, [facility] [address], [place] [address]- 2546 Jul, [facility] [address] [place] [address]- 1066 Jun, [facility] [address], [place] [address]- 3021 Apr, [facility] [address], [place] [address]- 7176 Apr, [facility] [address], [place] [address]- 6109 Mar, [facility] [address], [place] [address] 2546 Mar, [facility] [address], [place] [address] 2548 Feb, [facility] [address], [place] [address]- 9956 Dec, [facility] [address], [place] [address]- 6396 Oct, IMMUNIZATIONS No Known Immunizations SOCIAL HISTORY Never Assessed REASON FOR VISIT Future lab order PLAN OF CARE VITAL SIGNS MEDICATIONS Unknown [...] Hospitalization History surgery 2013 Hospitalization History A Fib--[facility] 03/08/2016 Hospitalization History acute chest pain, hypertensive urgency, paroxsysmal htn-[facility] 05/10/16
--- OUTSIDE RECORDS SUMMARY | 2018-09-17 12:02 | XMS REPORT ---
Author Author DESIREE SPENCE eClinicalWorks Address Unknown Phone Unavailable Care Team Providers Care Materials Director Name Role Phone DESIREE SPENCE CP Unavailable [...] Instructions Start Date End Date Status Dosage Hydrochlorothiazide [facility] [address]-65 12.5 MG 1 CAPSULE BY ORAL ROUTE 1 TIME PER DAY Results No Known Results Summary Purpose eClinicalWorks Submission
--- OUTSIDE RECORDS SUMMARY | 2018-09-17 12:02 | XMS REPORT ---
Author Author JORDY DESIREE Organization [facility] Address [address] [place] [address] Care Team Providers Care Burlap Man Name Role Phone CAMPBELL SPENCEHANY Unavailable PROBLEMS Type Condition ICD9-CM Code [id number] Code Onset Dates Condition Status SNOMED Code Problem Elevated alkaline phosphatase level R74.8 Active 204780322 Problem Essential hypertension I10 Active 88405716 Problem Obstructive sleep apnea G47.33 Active 53504780 Problem Other chronic gastritis without hemorrhage K29.50 Active 9384707 Problem Paroxysmal atrial fibrillation I48.0 Active 225976524 Problem Vitamin D deficiency E55.9 Active 99736067 Problem Hyperlipidemia E78.5 Active 21120438 Problem Chronic frontal sinusitis J32.1 Active 48941752 Problem Hyponatremia E87.1 Active 00682134 Problem Seasonal allergies J30.2 Active 996348963 Problem Mild intermittent asthma without complication J45.20 Active 852711120 Problem Chronic migraine G43.709 Active 02253459 Problem Primary insomnia F51.01 Active 861692186 Problem Hidradenitis L73.2 Active 17909781 Problem Generalized anxiety disorder F41.1 Active 979681524 Problem Idiopathic peripheral neuropathy G60.9 Active 08182583 ALLERGIES No Information SOCIAL HISTORY Never Assessed [...]
--- OUTSIDE RECORDS SUMMARY | 2018-09-17 12:03 | XMS REPORT ---
Author Author DESIREE SPENCE eClinicalWorks Address Unknown Phone Unavailable Care Team Providers Care Addictions Counselor Name Role Phone DESIREE SPENCE CP Unavailable [...] hypertension I10 Active Medications No Known Medications Results No Known Results Summary Purpose eClinicalWorks Submission
--- OUTSIDE RECORDS SUMMARY | 2018-09-17 12:03 | XMS REPORT ---
Author Author DESIREE SPENCE eClinical[employer] Address Unknown Phone Unavailable Care Team Providers Care Histologic Aide Name Role Phone DESIREE SPENCE Unavailable Allergies, Adverse Reactions, Alerts Substance Reaction [...] Active Problem Idiopathic peripheral neuropathy G60.9 Active Assessment Well woman exam (no gynecological exam) Z00.00 Active Problem Seasonal allergies J30.2 Active Problem Hyponatremia E87.1 Active Assessment Hyperlipidemia E78.5 Active Problem Elevated alkaline phosphatase level R74.8 Active Assessment Essential hypertension I10 Active Problem Hyperlipidemia E78.5 Active Medications Medication Code System Code Instructions Start Date End Date Status Dosage Lisinopril [facility] [address]-42 40 MG Orally Once a day 1 tablet ProAir HFA [facility] [address]-24 90 mcg/actuation Jan 02, 2014 2 puffs by Inhalation route 4 times per day PRN needs to keep appointment 01-10-14 Propranolol HCl [facility] 88242355858 40 MG 1 TABLET BY ORAL ROUTE 2 TIMES PER DAY FOR HEADACHE PREVENTION buspirone ND 0 5 mg Feb 20, 2014 take 2 tablets by Oral route 4 times per day Ambien [facility] [address]-54 5 MG July 18, 2014 take 1 tablet by Oral route at bedtime 1 time per day Alprazolam [facility] [address]-02 0.5 mg Jan 30, 2014 take 1 tablet by Oral route 2 times per day Flonase [facility] [address]-02 50 MCG/ACT Nasally Once a day November 21, 2014 1 spray in each nostril Abilify [facility] [address]-79 5 MG Orally Once a day 1 tablet Nystatin [facility] 86505061806 570158 UNIT/GM 1 APPLICATION 3 TIMES PER DAY APPLY TO AFFECTED AREA 3 TIMES DAILY NEEDED FOR YEAST INFECTION. CarBAMazepine ER [facility] [address]-28 200 MG Orally once a day in am & 2 tabs every pm 1 capsule Pristiq [facility] [address]-53 100 mg Jan 30, 2014 once daily Hydrochlorothiazide [facility] [address]-06 12.5 MG 1 CAPSULE BY ORAL ROUTE 1 TIME PER DAY Omeprazole [facility] [address]-36 20 MG Orally Once a day Jan 30, 2014 1 capsule Nortriptyline HCl [facility] [address]-14 25 MG Orally Once a day at bedtime 2 capsule Procedures Procedure Coding System Code Date Preventive Care Est Pt. Age 40-64 CPT-4 04742 Jun 05, 2015 [facility] VISIT ESTABLISHED PATIENT CPT-4 G0467 Jun 05, [address] [facility] C[facility]-4 NOBLL Jun 05, 2015 VENIPUNCT, ROUTINE* CPT-4 08182 Jun 05, 2015 Office Visit, Est Pt., Level 3 CPT-4 02451 Jun 05, 2015 Vital Signs Date/Time: Jun 05, 2015 Temperature 98.6 F Weight 271.2 lbs Height 66 in BMI 43.77 Index Blood Pressure Diastolic 90 mmHg Blood Pressure Systolic 162 mmHg Cardiac Monitoring Heart Rate 76 bpm Results Name Result Date Reference Range Unit Abnormality Flag ROUTINE VENIPUNCTURE Summary Purpose eClinicalWorks Submission
--- OUTSIDE RECORDS SUMMARY | 2018-09-17 12:03 | XMS REPORT ---
Author Author DESIREE SPENCE eClinicalWorks Address Unknown Phone Unavailable Care Team Providers Care Coin Collector Name Role Phone DESIREE SPENCE CP Unavailable [...]
--- OUTSIDE RECORDS SUMMARY | 2018-09-17 12:03 | XMS REPORT ---
Author Author DESIREE SPENCE Organization [facility] Address [address] [place] [address] Care Team Providers Care Behavioral Therapist Name Role Phone DESIREE SPENCE Unavailable PROBLEMS Type Condition ICD9-CM Code WPT50-QJ Code Onset Dates Condition Status SNOMED Code Problem Primary insomnia F51.01 Active 788747231 Problem Idiopathic peripheral neuropathy G60.9 Active 57331070 Problem Hidradenitis L73.2 Active 48439673 Problem Other chronic gastritis without hemorrhage K29.50 Active 2985683 Problem Paroxysmal atrial fibrillation I48.0 Active 460354091 Problem Obstructive sleep apnea G47.33 Active 82941035 Problem Generalized anxiety disorder F41.1 Active 969198719 Problem Vitamin D deficiency E55.9 Active 69073102 Problem Mild intermittent asthma without complication J45.20 Active 855913315 Problem Seasonal allergies J30.2 Active 755113138 Problem Hyperlipidemia E78.5 Active 15668572 Problem Essential hypertension I10 Active 64815290 Problem Hyponatremia E87.1 Active 37544013 Problem Chronic frontal sinusitis J32.1 Active 14859468 Problem Elevated alkaline phosphatase level R74.8 Active 853090086 Problem Chronic migraine G43.709 Active 40859857 ALLERGIES Unknown Allergies SOCIAL HISTORY No smoking Hx information available PLAN OF CARE VITAL SIGNS MEDICATIONS Unknown Medications RESULTS No Results PROCEDURES No Known procedures IMMUNIZATIONS No Known Immunizations
--- OUTSIDE RECORDS SUMMARY | 2018-09-17 12:03 | XMS REPORT ---
Author Author DESIREE SPENCE eClinical[employer] Address Unknown Phone Unavailable Care Team Providers Care Parimutuel Ticket Cashier Name Role Phone DESIREE SPENCE CP Unavailable [...] Start Date End Date Status Dosage Ambien [facility] [address]-32 5 MG July 18, 2014 take 1 tablet by Oral route at bedtime 1 time per day Results No Known Results Summary Purpose eClinicalWorks Submission
--- OUTSIDE RECORDS SUMMARY | 2018-09-17 12:04 | XMS REPORT ---
Author Author DESIREE SPENCE e[employer] Address Unknown Phone Unavailable Care Team Providers Care Dental Hygienist Mobile Coordinator Name Role Phone DESIREE SPENCE CP Unavailable [...] Start Date End Date Status Dosage Ambien [facility] [id number] 5 MG July 18, 2014 take 1 tablet by Oral route at bedtime 1 time per day Results No Known Results Summary Purpose eClinicalWorks Submission
--- OUTSIDE RECORDS SUMMARY | 2018-09-17 12:04 | XMS REPORT ---
Author Author DESIREE SPENCE Organization [facility] Address [address] [place] [address] Care Team Providers Care Prenatal Genetic Counselor Name Role Phone JORDYCAMPBELL MANSFIELDHANY Unavailable PROBLEMS Type Condition ICD9-CM Code RSR90-MA Code Onset Dates Condition Status SNOMED Code Problem Elevated alkaline phosphatase level R74.8 Active 917431241 Problem Essential hypertension I10 Active 72954766 Problem Obstructive sleep apnea G47.33 Active 30447876 Problem Other chronic gastritis without hemorrhage K29.50 Active 6709131 Problem Paroxysmal atrial fibrillation I48.0 Active 207114514 Problem Vitamin D deficiency E55.9 Active 87468472 Problem Hyperlipidemia E78.5 Active 74071031 Problem Chronic frontal sinusitis J32.1 Active 94722151 Problem Hyponatremia E87.1 Active 28215628 Problem Seasonal allergies J30.2 Active 428078797 Problem Mild intermittent asthma without complication J45.20 Active 654303150 Problem Chronic migraine G43.709 Active 35579962 Problem Primary insomnia F51.01 Active 362761434 Problem Hidradenitis L73.2 Active 93282225 Problem Generalized anxiety disorder F41.1 Active 535205416 Problem Idiopathic peripheral neuropathy G60.9 Active 61685271 ALLERGIES Unknown Allergies SOCIAL HISTORY No smoking Hx information available PLAN OF CARE VITAL SIGNS MEDICATIONS Medication Instructions Dosage Frequency Start Date End Date Duration Status Amlodipine Besylate 10 mg Orally Once a day 1 tablet 24h 30 days Active Klor-Con M20 20 MEQ Orally Once a day 1 tablet with food 24h 30 days Active Hydrochlorothiazide 12.5 MG Orally Once a day 1 tablet 24h 30 days Active RESULTS No Results PROCEDURES No Known procedures IMMUNIZATIONS No Known Immunizations
--- OUTSIDE RECORDS SUMMARY | 2018-09-17 12:04 | XMS REPORT ---
Author Author JORDY DESIREE Organization [facility] Address [address] [place] [address] Care Team Providers Care Human Resources Talent Manager Name Role Phone CAMPBELL SPENCEHANY Unavailable PROBLEMS Type Condition ICD9-CM Code [id number] Code Onset Dates Condition Status SNOMED Code Problem Elevated alkaline phosphatase level R74.8 Active 432334148 Problem Essential hypertension I10 Active 40690755 Problem Obstructive sleep apnea G47.33 Active 92673570 Problem Other chronic gastritis without hemorrhage K29.50 Active 2990200 Problem Paroxysmal atrial fibrillation I48.0 Active 299240442 Problem Vitamin D deficiency E55.9 Active 29116422 Problem Hyperlipidemia E78.5 Active 85421185 Problem Chronic frontal sinusitis J32.1 Active 75207620 Problem Hyponatremia E87.1 Active 36212149 Problem Seasonal allergies J30.2 Active 464219019 Problem Mild intermittent asthma without complication J45.20 Active 255583132 Problem Chronic migraine G43.709 Active 25199082 Problem Primary insomnia F51.01 Active 740348398 Problem Hidradenitis L73.2 Active 47210970 Problem Generalized anxiety disorder F41.1 Active 914794990 Problem Idiopathic peripheral neuropathy G60.9 Active 43532398 ALLERGIES No Information SOCIAL HISTORY Never Assessed [...] Hospitalization History surgery 2013 Hospitalization History A Fib--[facility] 03/08/2016 Hospitalization History acute chest pain, hypertensive urgency, paroxsysmal htn-[facility] 05/10/16
--- OUTSIDE RECORDS SUMMARY | 2018-09-17 12:04 | XMS REPORT ---
Author Author JORDY DESIREE [facility] Address [address] [place] [address] Care Team Providers Care Territory Account Representative Name Role Phone DESIREE SPENCE Unavailable PROBLEMS Type Condition ICD9-CM Code EGE82-YB Code Onset Dates Condition Status SNOMED Code Problem Vitamin D deficiency E55.9 Active 08006931 Problem Chronic frontal sinusitis J32.1 Active 03527492 Problem Hyponatremia E87.1 Active 62516503 Problem BMI 40.0-44.9, adult Z68.41 Active 523257354 Problem Seasonal allergies J30.2 Active 368391892 Problem Secondary pulmonary arterial hypertension I27.21 Active 29354641 Problem Other chronic gastritis without hemorrhage K29.50 Active 9242979 Problem Paroxysmal atrial fibrillation I48.0 Active 322781028 Problem Fasciculations of muscle R25.3 Active 21555839 Problem Depression, unspecified depression type F32.9 Active 48431574 Problem Mild intermittent asthma without complication J45.20 Active 009537185 Problem Chronic migraine G43.709 Active 61373927 Problem Primary insomnia F51.01 Active 499438331 Problem Generalized anxiety disorder F41.1 Active 660365856 Problem Elevated alkaline phosphatase level R74.8 Active 946920644 Problem Obstructive sleep apnea G47.33 Active 72766049 Problem Hidradenitis L73.2 Active 33047564 Problem Essential hypertension I10 Active 12676460 Problem Idiopathic peripheral neuropathy G60.9 Active 76483741 Problem Hyperlipidemia E78.5 Active 03360693 ALLERGIES No Information ENCOUNTERS Encounter Location Date Diagnosis [facility] [address], [place] [address] Nov, [facility] [id number], [place] [address] Oct, [facility] [address], [place] [address] September, Medicare annual wellness visit, initial Z00.00 ; Mild intermittent asthma without complication J45.20 ; Generalized anxiety disorder F41.1 ; Depression, unspecified depression type F32.9 ; Paroxysmal atrial fibrillation I48.0 ; Obstructive sleep apnea G47.33 ; Hyponatremia E87.1 ; Need for hepatitis C screening test Z11.59 ; Encounter for immunization Z23 ; Secondary pulmonary arterial hypertension I27.21 and BMI 40.0-44.9, adult Z68.41 [facility] [address] [address] 30 Aug, 2017 Essential hypertension I10 [facility] [address] [address] Jun, Dysuria R30.0 ; UTI symptoms R39.9 and Candidiasis of breast B37.89 [place] [address] [address] Jun, Hyponatremia E87.1 [place] [address] [address]- 9265 Jun, Hyponatremia E87.1 [place] [address] [address]- 2447 Jun, Hyponatremia E87.1 [place] [address] [address]- 7[address] Jun, [place] [address] [address]- 7981 May, Hyponatremia E87.1 [place] [address] [address]- 2961 May, Hyponatremia E87.1 [place] [address] 94777- 5094 May, Hyponatremia E87.1 [place] [address] [address]- 1972 May, Hyponatremia E87.1 [facility] [address], [place] [address] Apr, Hyponatremia E87.1 ; Fasciculations of muscle R25.3 and Hyperlipidemia E78.5 [facility] [id number], [place] [address] Apr, Cough R05 ; Hyponatremia E87.1 ; Fasciculations of muscle R25.3 ; Primary insomnia F51.01 ; Essential hypertension I10 ; Hyperlipidemia E78.5 ; Screening for breast cancer Z12.31 and BMI 40.0-44.9, adult Z68.41 [facility] [id number] [place] [address] 26695- 5102 Apr, Essential hypertension I10 [facility] [id number] [place] [address] 43562- 9852 Mar, [facility] [id number] [place] [address] 38194- 3961 Mar, [facility] [id number] [place] [address] 61793- 1488 Mar, [facility] [id number] [place] [address] 09986- 1127 Feb, [facility] [id number], [place] [address] Jan, [facility] [id number] [place] [address] 52799- 0524 Dec, Essential hypertension I10 [facility] [address], [place] [address] 1785 Dec, [facility] [id number] [place] [address] 17986- 8381 Dec, Essential hypertension I10 [facility] [address], [place] [address] Nov, [facility] [id number], [place] [address] Oct, Essential hypertension I10 [facility] [id number] [place] [address] 32432- 1469 Oct, Essential hypertension I10 [facility] [id number] [place] [address] 25767- 0671 Oct, [facility] [id number] [place] [address] 14702- 7999 September, [facility] [id number] [place] [address] 91961- 2717 September, Essential hypertension I10 [facility] [id number] [place] [address] 12036- 3308 September, [facility] [id number] [place] [address] 79686- 1556 September, Essential hypertension I10 ; Hyperlipidemia E78.5 and Hyponatremia E87.1 [facility] [id number] [place] [address] 51165- 0405 September, Mild intermittent asthma without complication J45.20 ; Essential hypertension I10 ; Hyperlipidemia E78.5 ; Hyponatremia E87.1 and Dysuria R30.0 [facility] [address] [place] [address] 72321- 9458 September, Other chronic gastritis without hemorrhage K29.50 ; Paroxysmal atrial fibrillation I48.0 and Essential hypertension I10 [facility] [address] [place] [address] 39455- 5768 Aug, [facility] [id number] [place] [address] 59498- 4444 Jul, [facility] [id number] [place] [address] 46700- 7845 14 Jun, 2016 [facility] [address], [place] [address] 07 Jun, 2016 Dysuria R30.0 and Acute cystitis with hematuria N30.01 [facility] [id number] [place] [address] 47039- 6781 Jun, Essential hypertension I10 [facility] [id number] [place] [address] 52729- 8593 May, Paroxysmal atrial fibrillation I48.0 [facility] [id number] [place] [address] 39625- 1147 May, Other chronic gastritis without hemorrhage K29.50 [facility] [id number] [place] [address] 63773- 7851 May, [facility] [address] 31527- 8808 May, Hyponatremia E87.1 ; Essential hypertension I10 and Other chronic gastritis without hemorrhage K29.50 [facility] [id number] [place] [address] 86920- 2980 May, Hyponatremia E87.1 [facility] [id number] [place] [address] 22997- 5381 May, Hyponatremia E87.1 [facility] [address] [id number] May, [facility] [id number] [place] [address] 92280- 0571 Apr, [facility] [id number] [place] [address] 22903- 3424 Apr, [facility] [id number] [place] [address] 71040- 8931 29 Mar, 2016 Essential hypertension I10 and Candidal intertrigo B37.2 [facility] [id number] [place] [address] 90800- 4176 Mar, Hyponatremia E87.1 [facility] [id number] [place] [address] 35034- 1653 14 Mar, 2016 [facility] [id number] [place] [address] 95938- 1331 Mar, Hyponatremia E87.1 [facility] [address] 06143- 2342 Mar, Essential hypertension I10 ; Hyponatremia E87.1 ; Slurred speech R47.81 ; Paroxysmal atrial fibrillation I48.0 and Elevated blood sugar R73.9 [facility] [address] 73605- 2857 Mar, [facility] [address] 70589- 4028 Mar, [facility] [address] 55439- 8894 Feb, [facility] [address] 03476- 4333 Jan, [facility] [address] 75717- 4653 Dec, [facility] [id number] [place] [address] 77843 -5139 Nov, Scratched by cat, initial encounter W55.03XA and Other injury of unspecified body region T14.8 [facility] [id number] [place] [address] 11867- 7354 Nov, [facility] [id number] [place] [address] 97069- 4885 Oct, [facility] [id number] [place] [address] 14914- 2453 September, [facility] [address] 97827- 7502 Aug, Elevated alkaline phosphatase level R74.8 [facility] [id number] [place] [address] 50881- 3090 Jul, [facility] [address] [place] [address]- 2362 26 Jun, 2015 Essential hypertension I10 and Bright red blood per rectum K62.5 [place] [address] 73241- 9592 11 Jun, 2015 Elevated alkaline phosphatase level R74.8 [place] [address] 88385- 7285 Jun, [place] [address] 76691- 1767 May, Essential hypertension I10 ; Hyperlipidemia E78.5 and Well woman exam (no gynecological exam) Z00.00 [place] [address] 12430- 6664 May, [place] [address] 44494- 8887 May, [place] [address] 16768- 7830 Mar, [place] [id number] [place] [address] 90072- 0649 Mar, [place] [address] 19121- 7160 Mar, [place] [id number] [place] [address] 28496- 9713 Feb, Acute recurrent maxillary sinusitis J01.01 ; Asthma, unspecified, unspecified status 493.90 ; Seasonal allergies J30.2 and Cat allergies J30.81 [place] [id number] [place] [address] 90700- 8214 13 Feb, 2015 Upper respiratory tract infection, unspecified upper respiratory infection J06.9 [place] [id number] [place] [address] 28979- 3589 Jan, [place] [id number] [place] [address] 33948- 4034 Jan, Dysphagia 787.20 and GERD (gastroesophageal reflux disease) 530.81 [facility] [id number] [place] [address] 74781- 0646 Jan, Breast lesion 611.9 [facility] [id number] [place] [address] 46528- 6787 Dec, Breast lesion 611.9 [facility] [id number] [place] [address] 63870- 3368 Dec, Breast lesion 611.9 [facility] [id number] [place] [address] 23366- 1585 Nov, Fatigue 780.79 and Hyperlipidemia 272.4 [facility] [id number] [place] [address] 158921- 9292 Nov, Hypertension 401.9 ; Hyperlipidemia 272.4 ; Chronic frontal sinusitis 473.1 and Fatigue 780.79 [facility] [id number] [place] [address] 72241- 6065 Nov, [facility] [id number] [place] [address] 92571- 0451 Oct, [facility] [id number] [place] [address] 46748- 1232 Oct, [facility] [id number] [place] [address] 95549- 7001 September, [facility] [id number] [place] [address] 39916- 0425 September, [facility] [id number] [place] [address] 20910- 9908 September, [facility] [id number] [place] [address] 56283- 7576 September, [facility] [id number] [place] [address] 419604- 1479 Aug, [facility] [id number] [place] [address] 72198- 6276 14 Aug, 2014 [facility] [place] [facility] [address] [id number] [place] [address]- 0461 13 Aug, 2014 [facility] [place] [facility] [address] [id number] [place] [address]- 1115 20 Jul, 2014 [facility] [place] [facility] [address] [id number] [place] [address]- 9423 20 Jul, 2014 [facility] [place] [facility] [address] [id number] [place] [address]- 5200 19 Jul, 2014 [facility] [place] [facility] [address] [id number] [place] [address]- 5958 19 Jul, 2014 [facility] [place] [facility] [address] [id number] [place] [address]- 3041 18 Jul, 2014 [facility] [place] [facility] [address] [id number] [place] [address]- 8574 17 Jul, 2014 [facility] [place] [facility] [address] [id number] [place] [address]- 9246 17 Jul, 2014 [facility] [place] [facility] [address] [id number] [place] [address]- 1030 16 Jul, 2014 [facility] [place] [facility] [address] [id number] [place] [address]- 5644 16 Jul, 2014 [facility] [place] [facility] [address] [id number] [place] [address]- 9012 12 Jul, 2014 [facility] [place] [facility] [address] [id number] [place] [address]- 8587 12 Jul, 2014 [facility] [place] [facility] [address] [id number] [place] [address]- 0594 09 Jul, 2014 [facility] [place] [facility] [address] [id number] [place] [address]- 0620 09 Jul, 2014 [facility] [place] [facility] [address] [id number] [place] [address]- 8584 04 Jul, 2014 [facility] [place] [facility] [address] [id number] [place] [address] 2540 Jul, [facility] [address] [id number] [place] [address]- 0923 Jun, 2014 [facility] [place] [facility] [address] [id number] [place] [address]- 2546 Jun, 2014 [facility] [place] [facility] [address] [id number] [place] [address] 2546 Jun, [facility] [place] [facility] [address] [id number] [place] [address]- 2546 Jun, [facility] [place] [facility] [address] [id number] [place] [address]- 6985 May, [facility] [place] [facility] [address] [id number] [place] [address]- 7758 May, [facility] [place] [facility] [address] [facility] [id number] [place] [address]- 0716 May, [facility] [place] [facility] [address] [id number] [place] [address]- 5853 May, [facility] [place] [facility] [address] [facility] [id number] [place] 9643 Apr, [facility] [place] [facility] [address] [facility] [id number] [place] [address]- 7171 Apr, [facility] [place] [facility] [address] [id number] [place] [address]- 1011 Apr, [facility] [place] [facility] [address] [id number] [place] [address]- 9100 Apr, [facility] [place] [facility] [address] [id number] [place] [address]- 5956 Apr, [facility] [place] [facility] [address] [facility] [id number] [place] [address]- 2546 Apr, [facility] [place] [facility] [address] [id number] [place] [address]- 6619 Mar, [facility] [place] [facility] [address] [id number] [place] [address]- 7949 Mar, [facility] [place] [facility] [address] [id number] [place] [address]- 3319 Mar, [facility] [place] [facility] [address] [id number] [place] [address]- 9132 Mar, [facility] [place] [facility] [address] [id number] [place] [address]- 6696 Mar, [facility] [place] [facility] [address] [id number] [place] [address]- 8373 Mar, [facility] [place] [facility] [address] [id number] [place] [address]- 7301 Mar, [facility] [place] [facility] [address] [id number] [place] [address]- 8537 Mar, [facility] [place] [facility] [address] [id number] [place] [address]- 9427 Mar, [facility] [place] [facility] [address] [id number] [place] [address]- 3378 Mar, [facility] [place] [facility] [address] [id number] [place] [address]- 2743 Mar, [facility] [place] [facility] [address] [id number], [place] [address]- 9626 Mar, [facility] [place] [facility] [address] [id number], [place] [address]- 7949 Mar, [facility] [place] [facility] [address] [id number] [place] [address]- 6620 Mar, [facility] [place] [facility] [address] [id number], [place] [address]- 0882 Mar, [facility] [place] [facility] [address] [id number] [place] [address]- 7594 Mar, [facility] [place] [facility] [address] [id number] [place] [address]- 0200 05 Mar, 2014 [facility] [place] [facility] [address] [id number] [place] [address]- 9086 30 Feb, 2013 [facility] [place] [facility] [address] [id number] [place] [address]- 6347 30 Feb, 2013 [facility] [place] [facility] [address] [id number] [place] [address]- 6615 30 Feb, 2013 [facility] [place] [facility] [address] [id number] [place] [address]- 0112 30 Feb, 2014 [facility] [place] [facility] [address] [id number] [place] [address]- 9210 29 Feb, 2014 [facility] [place] [facility] [address] [id number] [place] [address]- 3120 29 Feb, 2014 [facility] [place] [facility] [address] [id number] [place] [address]- 7923 Feb, [facility] [place] [facility] [address] [id number] [place] [address]- 5993 28 Feb, 2014 [facility] [place] [facility] [address] [id number] [place] [address]- 3178 28 Feb, 2014 [facility] [place] [facility] [address] [id number] [place] [address]- 1061 28 Feb, 2014 [facility] [place] [facility] [address] [id number] [place] [address]- 5817 16 Feb, 2014 [facility] [place] [facility] [address] [id number] [place] [address]- 6150 16 Feb, 2013 [facility] [place] [facility] [address] [id number] [place] [address]- 3596 15 Feb, 2014 [facility] [place] [facility] [address] [id number] [place] [address]- 4049 15 Feb, 2014 [facility] [place] [facility] [address] [id number] [place] [address]- 9841 08 Feb, 2014 [facility] [place] [facility] [address] [id number] [place] [address]- 3942 08 Feb, 2014 [facility] [place] [facility] [address] [id number] [place] [address]- 5770 Feb, [facility] [place] [facility] [address] [id number] [place] [address]- 7961 Feb, [facility] [place] [facility] [address] [id number] [place] [address]- 7180 Feb, [facility] [place] [facility] [address] [id number] [place] [address]- 3470 30 Jan, 2014 [facility] [place] [facility] [address] [id number] [place] [address]- 8151 30 Jan, 2014 [facility] [place] [facility] [address] [id number] [place] [address]- 5349 29 Jan, 2014 [facility] [place] [facility] [address] [id number] [place] [address]- 9129 29 Jan, 2014 [facility] [place] [facility] [address] [id number] [place] [address]- 1083 24 Jan, 2014 [facility] [place] [facility] [address] [id number] [place] [address]- 7101 24 Jan, 2014 [facility] [place] [facility] [address] [id number] [place] [address]- 1495 10 Jan, 2014 [facility] [place] [facility] [address] [id number] [place] [address]- 5392 08 Jan, 2014 [facility] [place] [facility] [address] [id number] [place] [address]- 7997 Jan, [facility] [place] [facility] [address] [id number] [place] [address]- 3398 Dec, [facility] [place] [facility] [address] [id number] [place] [address]- 8968 Dec, [facility] [place] [facility] [address] [id number] [place] [address] Dec, [facility] [place] [facility] [address] [id number] [place] [address] Dec, [facility] [place] [facility] [address] [id number] [place] [address] Dec, [facility] [place] [facility] [address] [id number] [place] [address] Dec, [facility] [place] [facility] [address] [id number] [place] [address] Dec, [facility] [place] [facility] [address] [id number] [place] [address] Dec, [facility] [place] [facility] [address] [id number] [place] [address] Dec, [facility] [place] [facility] [address] [id number] [place] [address] Nov, [facility] [place] [facility] [address] [id number] [place] [address] Nov, [facility] [place] [facility] [address] [id number] [place] [address] Nov, [facility] [place] [facility] [address] [id number] [place] [address] Nov, [facility] [place] [facility] [address] [id number] [place] [address] Nov, [facility] [place] [facility] [address] [id number] [place] [address]- [address] Nov, [facility] [place] [facility] [address] [id number] [place] [address] Oct, [facility] [place] [facility] [address] [id number] [place] [address] Oct, [facility] [place] [facility] [address] [id number] [place] [address] Oct, [facility] [place] [facility] [address] [id number] [place] [address] Oct, [facility] [place] [facility] [address] [id number] [place] [address] Oct, [facility] [place] [facility] [address] [id number] [place] [address]- [address] Oct, [facility] [place] [facility] [address] [id number] [place] [address] Oct, [facility] [place] [facility] [address] [id number] [place] [address]- [address] Oct, [facility] [place] [facility] [address] [id number] [place] [address] Oct, [facility] [place] [facility] [address] [id number] [place] [address] Oct, [facility] [place] [facility] [address] [id number] [place] [address] Oct, [facility] [place] [facility] [address] [id number] [place] [address] Oct, [facility] [place] [facility] [address] [id number] [place] [address] Oct, [facility] [place] [facility] [address] [id number] [place] [address] Oct, [facility] [place] [facility] [address] [id number] [place] [address] September, [facility] [place] [facility] [address] [id number] [place] [address] September, [facility] [place] [facility] [address] [id number] [place] [address]67 September, [facility] [place] [facility] [address] [id number] [place] [address] September, [facility] [place] [facility] [address] [id number] [place] [address]- [address] September, [facility] [address] [id number] [place] [address] September, [facility] [place] [facility] [address] [id number] [place] [address] September, [facility] [place] [facility] [address] [id number] [place] [address] September, [facility] [place] [facility] [address] [id number] [place] [address] September, [facility] [place] [facility] [address] [id number] [place] [address]- [address] September, [facility] [place] [facility] [address] [id number] [place] [address] September, [facility] [place] [facility] [address] [id number] [place] [address] September, [facility] [place] [facility] [address] [id number] [place] [address] September, [facility] [place] [facility] [address] [id number] [place] [address] September, [facility] [place] [facility] [address] [address] [id number] [place] [address] September, [facility] [place] [facility] [address] [id number] [place] [address] September, [facility] [place] [facility] [address] [id number] [place] [address] September, [facility] [place] [facility] [address] [id number] [place] [address] September, [facility] [place] [facility] [address] [id number] [place] [address] September, [facility] [place] [facility] [address] [id number] [place] [address] Aug, [facility] [place] [facility] [address] [id number] [place] [address] 08 Aug, 2013 [facility] [place] [facility] [address] [id number] [place] [address]32 31 Jul, 2013 [facility] [place] [facility] [address] [id number] [place] [address] 9537 31 Jul, 2013 [facility] [place] [facility] [address] [id number] [place] [address] 28 Jul, 2013 [facility] [place] [facility] [address] [id number] [place] [address] 7985 28 Jul, 2013 [facility] [place] [facility] [address] [id number] [place] [address] 6[address] 27 Jul, 2013 [facility] [place] [facility] [address] [id number] [place] [address] 8123 27 Jul, 2013 [facility] [place] [facility] [address] [id number] [place] [address] 5759 Jul, [facility] [place] [facility] [address] [id number] [place] [address] 9548 27 Jul, 2013 [facility] [place] [facility] [address] [id number] [place] [address]- 0597 25 Jul, 2013 [facility] [place] [facility] [address] [id number] [place] [address]- 2213 25 Jul, 2013 [facility] [place] [facility] [address] [id number] [place] [address]- 8967 14 Jul, 2013 [facility] [place] [facility] [address] [id number] [place] [address]- 2931 14 Jul, 2013 [facility] [place] [facility] [address] [id number] [place] [address]- 2860 07 Jul, 2013 [facility] [place] [facility] [address] [id number] [place] [address]- 0713 07 Jul, 2013 [facility] [place] [facility] [address] [facility] [id number] [place] [address] 6360 10 Jun, 2013 [facility] [place] [facility] [address] [id number] [place] [address]- 7661 10 Jun, 2013 [facility] [place] [facility] [address] [id number] [place] [address] 9709 Jun, [facility] [place] [facility] [address] [id number] [place] [address] 1041 Jun, [facility] [place] [facility] [address] [id number] [place] [address] 8[address] May, [facility] [place] [facility] [address] [id number] [place] [address] 7850 May, [facility] [place] [facility] [address] [id number] [place] [address]- 1274 May, [facility] [place] [facility] [address] [id number] [place] [address] 3641 May, [facility] [place] [facility] [address] [id number] [place] [address]- 3775 May, [facility] [place] [facility] [address] [id number] [place] [address]- 4758 Mar, [facility] [place] [facility] [address] [id number] [place] [address] 0967 Mar, [facility] [place] [facility] [address] [id number] [place] [address]- 2881 Mar, [facility] [place] [facility] [address] [id number] [place] [address]- 6987 Mar, [facility] [place] [facility] [address] [id number] [place] [address]- 3523 Mar, [facility] [place] [facility] [address] [id number] [place] [address] 7617 Mar, [facility] [place] [facility] [address] [id number] [place] [address]- 9606 Feb, [facility] [place] [facility] [address] [id number], [place] [address] 16[address] Feb, [facility] [place] [facility] [address] [id number] [place] [address]- 5286 Feb, [facility] [place] [facility] [address] [id number] [place] [address] Feb, [facility] [place] [facility] [address] [id number] [place] [address]- 3068 Feb, [facility] [place] [facility] [address] [id number] [place] [address]- 1079 Feb, [facility] [place] [facility] [address] [id number] [place] [address]- 4698 Feb, [facility] [place] [facility] [address] [id number] [place] [address]- 2288 Feb, [facility] [place] [facility] [address] [id number] [place] [address]- 4005 Feb, [facility] [place] [facility] [address] [id number] [place] [address] 6155 Feb, [facility] [place] [facility] [address] [id number] [place] [address]- 8417 Feb, [facility] [place] [facility] [address] [id number] [place] [address]- 3063 Feb, [facility] [place] [facility] [address] [id number], [place] [address] Jan, [facility] [place] [facility] [address] [id number], [place] [address]- 38[address] Jan, [facility] [place] [facility] [address] [id number] [place] [address]- 9835 Dec, [facility] [place] [facility] [address] [id number] [place] [address]- 0851 Dec, [facility] [place] [facility] [address] [id number] [place] [address]- 5535 Nov, [facility] [place] [facility] [address] [id number] [place] [address]- 7415 Nov, [facility] [address] [id number] [place] [address]- 1524 Nov, [facility] [address] [id number] [place] [address]- 0786 Nov, [facility] [address] [id number] [place] [address]- 9748 Nov, [facility] [address] [id number] [place] [address] 6929 Oct, [facility] [address] [id number] [place] [address] 9086 September, [facility] [address] [id number] [place] [address] 6730 Aug, [facility] [address] [id number] [place] [address]- 6528 Jul, [facility] [address] [id number] [place] [address] 3073 Jul, [facility] [address] [id number] [place] [address]- 6995 Jul, [facility] [address] [id number] [place] [address] 4747 Jun, [facility] [address] [id number] [place] [address]- 2740 14 Jun, 2012 [facility] [address] [id number] [place] [address] 2542 Jun, [facility] [place] [facility] [address] [id number] [place] [address]- 7807 Jun, [facility] [place] [facility] [address] [id number] [place] [address]- 2546 07 Jun, 2012 [facility] [place] [facility] [address] [id number] [place] [address] 5859 May, [facility] [place] [facility] [address] [id number] [place] [address]- 4709 May, [facility] [place] [facility] [address] [id number] [place] [address]- 5497 Apr, [facility] [place] [facility] [address] [facility] [id number] [place] [address] Apr, [facility] [place] [facility] [address] [id number] [place] [address]- 9556 Mar, [facility] [place] [facility] [address] [id number] [place] [address]- 2071 Mar, [facility] [place] [facility] [address] [id number] [place] [address]- 0894 Mar, [facility] [place] [facility] [address] [facility] [id number] [place] [address]- 1289 Mar, [facility] [place] [facility] [address] [id number], [place] [address]- 1259 Mar, [facility] [place] [facility] [address] [id number] [place] [address]- 8230 Mar, [facility] [place] [facility] [address] [facility] [id number], [place] [address]- 5043 Mar, [facility] [place] [facility] [address] [id number], [place] [address]- 6152 Mar, [facility] [place] [facility] [address] [id number], [place] [address]- 4308 Mar, [facility] [place] [facility] [address] [id number], [place] [address]- 6851 Mar, [facility] [place] [facility] [address] [facility] [id number], [place] [address]- 7054 Feb, [facility] [place] [facility] [address] [facility] [id number], [place] [address]- 9854 Feb, [facility] [place] [facility] [address] [id number] [place] [address]- 8714 30 Feb, 2012 [facility] [place] [facility] [address] [id number] [place] [address]- 7747 30 Feb, 2012 [facility] [place] [facility] [address] [id number] [place] [address]- 2346 Feb, [facility] [place] [facility] [address] [id number] [place] [address]- 6996 Feb, [facility] [place] [facility] [address] [id number] [place] [address]- 4816 Jan, [facility] [place] [facility] [address] [id number] [place] [address]- 6473 Jan, [facility] [place] [facility] [address] [id number] [place] [address]- 1159 Dec, [facility] [place] [facility] [address] [id number] [place] [address]- 7150 Dec, [facility] [place] [facility] [address] [id number] [place] [address]- 4304 Dec, [facility] [place] [facility] [address] [id number] [place] [address]- 8408 Nov, [facility] [place] [facility] [address] [id number] [place] [address]- 8237 September, [facility] [place] [facility] [address] [id number] [place] [address]- 2404 September, [facility] [place] [facility] [address] [id number] [place] [address]- 8183 September, [facility] [place] [facility] [address] [id number] [place] [address]- 7966 September, [facility] [place] [facility] [address] [id number] [place] [address]- 9765 Aug, [facility] [place] [facility] [address] [id number] [place] [address]- 0911 Aug, [facility] [place] [facility] [address] [id number] [place] [address]- 0069 Aug, [facility] [place] [facility] [address] [id number] [place] [address]- 4266 Aug, [facility] [place] [facility] [address] [id number] [place] [address]- 5397 Aug, [facility] [place] [facility] [address] [id number] [place] [address]- 1294 Jul, [facility] [place] [facility] [address] [id number] [place] [address]- 5911 Jul, [facility] [place] [facility] [address] [id number] [place] [address]- 5972 Jul, [facility] [place] [facility] [address] [id number] [place] [address]- 1140 29 Jun, 2011 [facility] [place] [facility] [address] [id number] [place] [address]- 4884 17 Jun, 2011 [facility] [place] [facility] [address] [id number] [place] [address]- 0964 Jun, [facility] [place] [facility] [address] [id number] [place] [address]- 2828 Jun, [facility] [place] [facility] [address] [id number] [place] [address]- 1856 Jun, [facility] [place] [facility] [address] [id number] [place] [address]- 7302 Jun, [facility] [place] [facility] [address] [id number] [place] [address]- 9066 Jun, [facility] [place] [facility] [address] [id number] [place] [address]- 3456 24 May, 2011 [facility] [place] [facility] [address] [id number] [place] [address]- 8926 May, [facility] [place] [facility] [address] [id number] [place] [address]- 4690 12 May, 2011 [facility] [address] [id number] [place] [address]- 7921 12 May, 2011 [facility] [place] [facility] [address] [id number] [place] [address]- 5206 27 Apr, 2011 [facility] [address] [id number] [place] [address]- 4196 13 Apr, 2011 [facility] [place] [facility] [address] [id number] [place] [address]- 1556 Mar, [facility] [address] [id number] [place] [address]- 1356 Mar, [facility] [place] [facility] [address] [id number] [place] [address]- 9803 Mar, [facility] [address] [id number] [place] [address]- 2471 Nov, [facility] [place] [facility] [address] [id number] [place] [address]- 2136 May, [facility] [address] [id number] [place] [address]- 1381 Apr, [facility] [address] [id number] [place] [address]- 6677 Apr, [facility] [place] [facility] [address] [id number] [place] [address]- 9759 13 Apr, 2010 [facility] [place] [facility] [address] [id number] [place] [address] 2543 Apr, [facility] [place] [facility] [address] [id number] [place] [address]- 9405 Apr, [facility] [place] [facility] [address] [id number] [place] [address]- 8236 Mar, [facility] [place] [facility] [address] [id number] [place] [address]- 4339 08 Mar, 2010 [facility] [id number] [address]- 2546 Feb, [facility] [id number], [place] [address]- 2546 Aug, [facility] [id number], [place] [address]- 2546 Jul, [facility] [id number], [place] [address]- 2546 Jun, [facility] [id number], [place] [address]- 2546 Apr, [facility] [id number] [place] [address]- 2546 Apr, [facility] [id number], [place] [address]- 2546 Mar, [facility] [id number] [place] [address]- 2546 Mar, [facility] [id number], [place] [address]- 1138 Feb, [facility] [id number], [place] [address]- 2546 Dec, [facility] [id number], [place] [address]- 2546 Oct, IMMUNIZATIONS No Known Immunizations SOCIAL HISTORY Never Assessed REASON FOR VISIT Lab (walk-in) PLAN OF CARE VITAL SIGNS MEDICATIONS Unknown Medications RESULTS No Results PROCEDURES Procedure Date Ordered Result Body Site LAB NOT BILLED BY [facility] May 27, 2017 VENIPUNCT, ROUTINE* May 27, 2017 INSTRUCTIONS MEDICATIONS ADMINISTERED No Known Medications [...] History acute chest pain, hypertensive urgency, paroxsysmal [facility] 05[facility]10[facility]16
--- OUTSIDE RECORDS SUMMARY | 2018-09-17 12:05 | XMS REPORT ---
Author Author JORDY DESIREE [facility] Address [address] [place] [address] Care Team Providers Care Multiple Wire Sawyer Name Role Phone DESIREE SPENCE Unavailable PROBLEMS Type Condition ICD9-CM Code PTI32-EE Code Onset Dates Condition Status SNOMED Code Problem Vitamin D deficiency E55.9 Active 61467226 Problem Chronic frontal sinusitis J32.1 Active 52597007 Problem Hyponatremia E87.1 Active 62891443 Problem BMI 40.0-44.9, adult Z68.41 Active 689981247 Problem Seasonal allergies J30.2 Active 736731253 Problem Secondary pulmonary arterial hypertension I27.21 Active 91467101 Problem Other chronic gastritis without hemorrhage K29.50 Active 8166730 Problem Paroxysmal atrial fibrillation I48.0 Active 481262461 Problem Fasciculations of muscle R25.3 Active 16960026 Problem Depression, unspecified depression type F32.9 Active 98933527 Problem Mild intermittent asthma without complication J45.20 Active 248360332 Problem Chronic migraine G43.709 Active 78128367 Problem Primary insomnia F51.01 Active 326872967 Problem Generalized anxiety disorder F41.1 Active 260624403 Problem Elevated alkaline phosphatase level R74.8 Active 738473500 Problem Obstructive sleep apnea G47.33 Active 89122896 Problem Hidradenitis L73.2 Active 99125816 Problem Essential hypertension I10 Active 93544933 Problem Idiopathic peripheral neuropathy G60.9 Active 47472586 Problem Hyperlipidemia E78.5 Active 97691811 ALLERGIES No Information ENCOUNTERS Encounter Location Date Diagnosis [facility] [address], [place] [address] Nov, [facility] [id number], [place] [address] Oct, [facility] [address], [place] [address] September, Medicare annual wellness visit, initial Z00.00 ; Mild intermittent asthma without complication J45.20 ; Generalized anxiety disorder F41.1 ; Depression, unspecified depression type F32.9 ; Paroxysmal atrial fibrillation I48.0 ; Obstructive sleep apnea G47.33 ; Hyponatremia E87.1 ; Need for hepatitis C screening test Z11.59 ; Encounter for immunization Z23 ; Secondary pulmonary arterial hypertension I27.21 and BMI 40.0-44.9, adult Z68.41 [facility] [address] [address] 30 Aug, 2017 Essential hypertension I10 [facility] [address] [address] Jun, Dysuria R30.0 ; UTI symptoms R39.9 and Candidiasis of breast B37.89 [place] [address] [address] Jun, Hyponatremia E87.1 [place] [address] [address]- [address] Jun, Hyponatremia E87.1 [place] [address] [address]- 4186 Jun, Hyponatremia E87.1 [place] [address] [address]- 65[address] Jun, [place] [address] [address]- 27[address] May, Hyponatremia E87.1 [place] [address] 99781- 2401 May, Hyponatremia E87.1 [place] [address] 83416- 3995 May, Hyponatremia E87.1 [place] [address] 50867- 7275 May, Hyponatremia E87.1 [facility] [address], [place] [address] Apr, Hyponatremia E87.1 ; Fasciculations of muscle R25.3 and Hyperlipidemia E78.5 [facility] [id number], [place] [address] Apr, Cough R05 ; Hyponatremia E87.1 ; Fasciculations of muscle R25.3 ; Primary insomnia F51.01 ; Essential hypertension I10 ; Hyperlipidemia E78.5 ; Screening for breast cancer Z12.31 and BMI 40.0-44.9, adult Z68.41 [facility] [id number] [place] [address] 09034- 0820 Apr, Essential hypertension I10 [facility] [id number] [place] [address] 00862- 1523 Mar, [facility] [id number] [place] [address] 71827- 1822 Mar, [facility] [id number] [place] [address] 35151- 5888 Mar, [facility] [id number] [place] [address] 47265- 9477 Feb, [facility] [id number], [place] [address] Jan, [facility] [id number] [place] [address] 72288- 5665 Dec, Essential hypertension I10 [facility] [address], [place] [address] Dec, [facility] [id number] [place] [address] 72366- 1971 Dec, Essential hypertension I10 [facility] [address], [place] [address] Nov, [facility] [id number], [place] [address] 07[address] Oct, Essential hypertension I10 [facility] [id number] [place] [address] 31025- 3104 Oct, Essential hypertension I10 [facility] [id number] [place] [address] 56248- 3482 Oct, [facility] [id number] [place] [address] 70669- 5618 September, [facility] [id number] [place] [address] 71178- 1979 September, Essential hypertension I10 [facility] [id number] [place] [address] 89534- 3008 September, [facility] [id number] [place] [address] 50023- 2039 September, Essential hypertension I10 ; Hyperlipidemia E78.5 and Hyponatremia E87.1 [facility] [id number] [place] [address] 59305- 9539 September, Mild intermittent asthma without complication J45.20 ; Essential hypertension I10 ; Hyperlipidemia E78.5 ; Hyponatremia E87.1 and Dysuria R30.0 [facility] [address] [place] [address] 73928- 2139 September, Other chronic gastritis without hemorrhage K29.50 ; Paroxysmal atrial fibrillation I48.0 and Essential hypertension I10 [facility] [id number] [place] [address] 77523- 2269 Aug, [facility] [id number] [place] [address] 23080- 3107 Jul, [facility] [id number] [place] [address] 44004- 5992 14 Jun, 2016 [facility] [address], [place] [address] 07 Jun, 2016 Dysuria R30.0 and Acute cystitis with hematuria N30.01 [facility] [id number] [place] [address] 49899- 7882 Jun, Essential hypertension I10 [facility] [id number] [place] [address] 07177- 2433 May, Paroxysmal atrial fibrillation I48.0 [facility] [id number] [place] [address] 57922- 6020 May, Other chronic gastritis without hemorrhage K29.50 [facility] [id number] [place] [address] 00697- 3522 May, [facility] [address] [address]- 5222 May, Hyponatremia E87.1 ; Essential hypertension I10 and Other chronic gastritis without hemorrhage K29.50 [facility] [id number] [place] [address] 50215- 9664 May, Hyponatremia E87.1 [facility] [id number] [place] [address] 85048- 0576 May, Hyponatremia E87.1 [facility] [address] [id number] May, [facility] [id number] [place] [address] 74208- 2270 Apr, [facility] [id number] [place] [address] 85209- 4208 Apr, [facility] [id number] [place] [address] 45614- 0477 29 Mar, 2016 Essential hypertension I10 and Candidal intertrigo B37.2 [facility] [id number] [place] [address] 09058- 1649 Mar, Hyponatremia E87.1 [facility] [id number] [place] [address] 15244- 9890 14 Mar, 2016 [facility] [id number] [place] [address] 54612- 0653 Mar, Hyponatremia E87.1 [facility] [address] 12971- 5879 Mar, Essential hypertension I10 ; Hyponatremia E87.1 ; Slurred speech R47.81 ; Paroxysmal atrial fibrillation I48.0 and Elevated blood sugar R73.9 [facility] [address] 24454- 3959 Mar, [facility] [address] 01786- 0571 Mar, [facility] [address] 58765- 7773 Feb, [facility] [address] 42788- 6332 Jan, [facility] [address] 71674- 2039 Dec, [facility] [id number] [place] [address] 56109 -1687 Nov, Scratched by cat, initial encounter W55.03XA and Other injury of unspecified body region T14.8 [facility] [id number] [place] [address] 70661- 6818 Nov, [facility] [id number] [place] [address] 80580- 8814 Oct, [facility] [id number] [place] [address] 53819- 4129 September, [facility] [address] 12422- 8186 Aug, Elevated alkaline phosphatase level R74.8 [facility] [id number] [place] [address] 43806- 6282 Jul, [facility] [address] [place] [address]- 8492 26 Jun, 2015 Essential hypertension I10 and Bright red blood per rectum K62.5 [place] [address] 1000[address]- 4035 11 Jun, 2015 Elevated alkaline phosphatase level R74.8 [place] [address] 97650- 9879 Jun, [place] [address] 19193- 6098 May, Essential hypertension I10 ; Hyperlipidemia E78.5 and Well woman exam (no gynecological exam) Z00.00 [place] [address] 28645- 3104 May, [place] [address] 24158- 2518 May, [place] [address] 61424- 2228 Mar, [place] [id number] [place] [address] 69530- 7040 Mar, [place] [address] 98931- 3963 Mar, [place] [id number] [place] [address] 89437- 0352 Feb, Acute recurrent maxillary sinusitis J01.01 ; Asthma, unspecified, unspecified status 493.90 ; Seasonal allergies J30.2 and Cat allergies J30.81 [place] [id number] [place] [address] 92875- 3625 13 Feb, 2015 Upper respiratory tract infection, unspecified upper respiratory infection J06.9 [place] [id number] [place] [address] 90598- 2563 Jan, [place] [id number] [place] [address] 95122- 2370 Jan, Dysphagia 787.20 and GERD (gastroesophageal reflux disease) 530.81 [facility] [id number] [place] [address] 64704- 5012 Jan, Breast lesion 611.9 [facility] [id number] [place] [address] 83056- 5562 Dec, Breast lesion 611.9 [facility] [id number] [place] [address] 74576- 2614 Dec, Breast lesion 611.9 [facility] [id number] [place] [address] 73312- 8367 Nov, Fatigue 780.79 and Hyperlipidemia 272.4 [facility] [id number] [place] [address] 816969- 8953 Nov, Hypertension 401.9 ; Hyperlipidemia 272.4 ; Chronic frontal sinusitis 473.1 and Fatigue 780.79 [facility] [id number] [place] [address] 89250- 5333 Nov, [facility] [id number] [place] [address] 06930- 1856 Oct, [facility] [id number] [place] [address] 51365- 1129 Oct, [facility] [id number] [place] [address] 81505- 7668 September, [facility] [id number] [place] [address] 91000- 2416 September, [facility] [id number] [place] [address] 08918- 7512 September, [facility] [id number] [place] [address] 16903- 1826 September, [facility] [id number] [place] [address] 293275- 9683 Aug, [facility] [id number] [place] [address] 15258- 6446 14 Aug, 2014 [facility] [place] [facility] [address] [id number] [place] [address]- 6386 13 Aug, 2014 [facility] [place] [facility] [address] [id number] [place] [address]- 2387 20 Jul, 2014 [facility] [place] [facility] [address] [id number] [place] [address]- 6222 20 Jul, 2014 [facility] [place] [facility] [address] [id number] [place] [address]- 1835 19 Jul, 2014 [facility] [place] [facility] [address] [id number] [place] [address]- 6336 19 Jul, 2014 [facility] [place] [facility] [address] [id number] [place] [address]- 7600 18 Jul, 2014 [facility] [place] [facility] [address] [id number] [place] [address]- 5741 17 Jul, 2014 [facility] [place] [facility] [address] [id number] [place] [address]- 7867 17 Jul, 2014 [facility] [place] [facility] [address] [id number] [place] [address]- 7514 16 Jul, 2014 [facility] [place] [facility] [address] [id number] [place] [address]- 1714 16 Jul, 2014 [facility] [place] [facility] [address] [id number] [place] [address]- 4223 12 Jul, 2014 [facility] [place] [facility] [address] [id number] [place] [address]- 8589 12 Jul, 2014 [facility] [place] [facility] [address] [id number] [place] [address]- 3617 09 Jul, 2014 [facility] [place] [facility] [address] [id number] [place] [address]- 7429 09 Jul, 2014 [facility] [place] [facility] [address] [id number] [place] [address]- 9214 04 Jul, 2014 [facility] [place] [facility] [address] [id number] [place] [address] 2540 Jul, [facility] [address] [id number] [place] [address]- 4957 Jun, 2014 [facility] [place] [facility] [address] [id number] [place] [address]- 2546 Jun, 2014 [facility] [place] [facility] [address] [id number] [place] [address] 2546 Jun, [facility] [place] [facility] [address] [id number] [place] [address]- 2546 Jun, [facility] [place] [facility] [address] [id number] [place] [address]- 1682 May, [facility] [place] [facility] [address] [id number] [place] [address]- 8396 May, [facility] [place] [facility] [address] [facility] [id number] [place] [address]- 6407 May, [facility] [place] [facility] [address] [id number] [place] [address]- 1468 May, [facility] [place] [facility] [address] [facility] [id number] [place] 0199 Apr, [facility] [place] [facility] [address] [facility] [id number] [place] [address]- 1112 Apr, [facility] [place] [facility] [address] [id number] [place] [address]- 1591 Apr, [facility] [place] [facility] [address] [id number] [place] [address]- 0085 Apr, [facility] [place] [facility] [address] [id number] [place] [address]- 3786 Apr, [facility] [place] [facility] [address] [facility] [id number] [place] [address]- 2546 Apr, [facility] [place] [facility] [address] [id number] [place] [address]- 0252 Mar, [facility] [place] [facility] [address] [id number] [place] [address]- 7774 Mar, [facility] [place] [facility] [address] [id number] [place] [address]- 3348 Mar, [facility] [place] [facility] [address] [id number] [place] [address]- 0283 Mar, [facility] [place] [facility] [address] [id number] [place] [address]- 6805 Mar, [facility] [place] [facility] [address] [id number] [place] [address]- 5887 Mar, [facility] [place] [facility] [address] [id number] [place] [address]- 2430 Mar, [facility] [place] [facility] [address] [id number] [place] [address]- 9140 Mar, [facility] [place] [facility] [address] [id number] [place] [address]- 2378 Mar, [facility] [place] [facility] [address] [id number] [place] [address]- 6022 Mar, [facility] [place] [facility] [address] [id number] [place] [address]- 8281 Mar, [facility] [place] [facility] [address] [id number], [place] [address]- 5142 Mar, [facility] [place] [facility] [address] [id number], [place] [address]- 5178 Mar, [facility] [place] [facility] [address] [id number] [place] [address]- 4534 Mar, [facility] [place] [facility] [address] [id number], [place] [address]- 2179 Mar, [facility] [place] [facility] [address] [id number] [place] [address]- 0627 Mar, [facility] [place] [facility] [address] [id number] [place] [address]- 4882 05 Mar, 2014 [facility] [place] [facility] [address] [id number] [place] [address]- 9286 30 Feb, 2013 [facility] [place] [facility] [address] [id number] [place] [address]- 6298 30 Feb, 2013 [facility] [place] [facility] [address] [id number] [place] [address]- 5012 30 Feb, 2013 [facility] [place] [facility] [address] [id number] [place] [address]- 9081 30 Feb, 2014 [facility] [place] [facility] [address] [id number] [place] [address]- 3523 29 Feb, 2014 [facility] [place] [facility] [address] [id number] [place] [address]- 2896 29 Feb, 2014 [facility] [place] [facility] [address] [id number] [place] [address]- 3965 Feb, [facility] [place] [facility] [address] [id number] [place] [address]- 7682 28 Feb, 2014 [facility] [place] [facility] [address] [id number] [place] [address]- 5052 28 Feb, 2014 [facility] [place] [facility] [address] [id number] [place] [address]- 9813 28 Feb, 2014 [facility] [place] [facility] [address] [id number] [place] [address]- 9189 16 Feb, 2014 [facility] [place] [facility] [address] [id number] [place] [address]- 3867 16 Feb, 2013 [facility] [place] [facility] [address] [id number] [place] [address]- 5274 15 Feb, 2014 [facility] [place] [facility] [address] [id number] [place] [address]- 8544 15 Feb, 2014 [facility] [place] [facility] [address] [id number] [place] [address]- 4670 08 Feb, 2014 [facility] [place] [facility] [address] [id number] [place] [address]- 8248 08 Feb, 2014 [facility] [place] [facility] [address] [id number] [place] [address]- 8758 Feb, [facility] [place] [facility] [address] [id number] [place] [address]- 9978 Feb, [facility] [place] [facility] [address] [id number] [place] [address]- 6594 Feb, [facility] [place] [facility] [address] [id number] [place] [address]- 0483 30 Jan, 2014 [facility] [place] [facility] [address] [id number] [place] [address]- 4697 30 Jan, 2014 [facility] [place] [facility] [address] [id number] [place] [address]- 2391 29 Jan, 2014 [facility] [place] [facility] [address] [id number] [place] [address]- 3513 29 Jan, 2014 [facility] [place] [facility] [address] [id number] [place] [address]- 3821 24 Jan, 2014 [facility] [place] [facility] [address] [id number] [place] [address]- 1057 24 Jan, 2014 [facility] [place] [facility] [address] [id number] [place] [address]- 9982 10 Jan, 2014 [facility] [place] [facility] [address] [id number] [place] [address]- 8708 08 Jan, 2014 [facility] [place] [facility] [address] [id number] [place] [address]- 4886 Jan, [facility] [place] [facility] [address] [id number] [place] [address]- 1400 Dec, [facility] [place] [facility] [address] [id number] [place] [address]- 3566 Dec, [facility] [place] [facility] [address] [id number] [place] [address]- 4774 Dec, [facility] [place] [facility] [address] [id number] [place] [address]- 0627 Dec, [facility] [place] [facility] [address] [id number] [place] [address]- 9098 Dec, [facility] [place] [facility] [address] [id number] [place] [address]- 4038 Dec, [facility] [place] [facility] [address] [id number] [place] [address]- 2763 Dec, [facility] [place] [facility] [address] [id number] [place] [address]- 9092 Dec, [facility] [place] [facility] [address] [id number] [place] [address]- 1204 Dec, [facility] [place] [facility] [address] [id number] [place] [address]- 0979 Nov, [facility] [place] [facility] [address] [id number] [place] [address] Nov, [facility] [place] [facility] [address] [id number] [place] [address] Nov, [facility] [place] [facility] [address] [id number] [place] [address] Nov, [facility] [place] [facility] [address] [id number] [place] [address] Nov, [facility] [place] [facility] [address] [id number] [place] [address] Nov, [facility] [place] [facility] [address] [id number] [place] [address] Oct, [facility] [place] [facility] [address] [id number] [place] [address] Oct, [facility] [place] [facility] [address] [id number] [place] [address] Oct, [facility] [place] [facility] [address] [id number] [place] [address] Oct, [facility] [place] [facility] [address] [id number] [place] [address] Oct, [facility] [place] [facility] [address] [id number] [place] [address] Oct, [facility] [place] [facility] [address] [id number] [place] [address] Oct, [facility] [place] [facility] [address] [id number] [place] [address] Oct, [facility] [place] [facility] [address] [id number] [place] [address] Oct, [facility] [place] [facility] [address] [id number] [place] [address] Oct, [facility] [place] [facility] [address] [id number] [place] [address] Oct, [facility] [place] [facility] [address] [id number] [place] [address] Oct, [facility] [place] [facility] [address] [id number] [place] [address] Oct, [facility] [place] [facility] [address] [id number] [place] [address] Oct, [facility] [place] [facility] [address] [id number] [place] [address] September, [facility] [place] [facility] [address] [id number] [place] [address] September, [facility] [place] [facility] [address] [id number] [place] [address] September, [facility] [place] [facility] [address] [id number] [place] [address] September, [facility] [place] [facility] [address] [id number] [place] [address] September, [facility] [address] [id number] [place] [address] September, [facility] [place] [facility] [address] [id number] [place] [address]- [address] September, [facility] [place] [facility] [address] [id number] [place] [address] September, [facility] [place] [facility] [address] [id number] [place] [address] September, [facility] [place] [facility] [address] [id number] [place] [address] September, [facility] [place] [facility] [address] [id number] [place] [address] September, [facility] [place] [facility] [address] [id number] [place] [address] September, [facility] [place] [facility] [address] [id number] [place] [address] September, [facility] [place] [facility] [address] [id number] [place] [address] September, [facility] [place] [facility] [address] [id number] [place] [address] September, [facility] [place] [facility] [address] [id number] [place] [address] September, [facility] [place] [facility] [address] [id number] [place] [address] September, [facility] [place] [facility] [address] [id number] [place] [address] September, [facility] [place] [facility] [address] [id number] [place] [address] September, [facility] [place] [facility] [address] [id number] [place] [address] Aug, [facility] [place] [facility] [address] [id number] [place] [address] 08 Aug, 2013 [facility] [place] [facility] [address] [id number] [place] [address] 31 Jul, 2013 [facility] [place] [facility] [address] [id number] [place] [address] 9461 31 Jul, 2013 [facility] [place] [facility] [address] [id number] [place] [address] 1896 28 Jul, 2013 [facility] [place] [facility] [address] [id number] [place] [address] 7817 28 Jul, 2013 [facility] [place] [facility] [address] [id number] [place] [address] 8[address] 27 Jul, 2013 [facility] [place] [facility] [address] [id number] [place] [address] 2019 27 Jul, 2013 [facility] [place] [facility] [address] [id number] [place] [address] 7[address] Jul, [facility] [place] [facility] [address] [id number] [place] [address] 1541 27 Jul, 2013 [facility] [place] [facility] [address] [id number] [place] [address] 5720 25 Jul, 2013 [facility] [place] [facility] [address] [id number] [place] [address] 0749 25 Jul, 2013 [facility] [place] [facility] [address] [id number] [place] [address] 4043 14 Jul, 2013 [facility] [place] [facility] [address] [id number] [place] [address] 3612 14 Jul, 2013 [facility] [place] [facility] [address] [id number] [place] [address] 4499 07 Jul, 2013 [facility] [place] [facility] [address] [id number] [place] [address] 0[address] 07 Jul, 2013 [facility] [place] [facility] [address] [facility] [id number] [place] [address] 3959 10 Jun, 2013 [facility] [place] [facility] [address] [id number] [place] [address] 2401 10 Jun, 2013 [facility] [place] [facility] [address] [id number] [place] [address] 7271 Jun, [facility] [place] [facility] [address] [id number] [place] [address] 5929 Jun, [facility] [place] [facility] [address] [id number] [place] [address] 9294 May, [facility] [place] [facility] [address] [id number] [place] [address] 8125 May, [facility] [place] [facility] [address] [id number] [place] [address] 2711 May, [facility] [place] [facility] [address] [id number] [place] [address] 3932 May, [facility] [place] [facility] [address] [id number] [place] [address] 2247 May, [facility] [place] [facility] [address] [id number] [place] [address] 3111 Mar, [facility] [place] [facility] [address] [id number] [place] [address] 9612 Mar, [facility] [place] [facility] [address] [id number] [place] [address] 8311 Mar, [facility] [place] [facility] [address] [id number] [place] [address] 0044 Mar, [facility] [place] [facility] [address] [id number] [place] [address] 7448 Mar, [facility] [place] [facility] [address] [id number] [place] [address] 5860 Mar, [facility] [place] [facility] [address] [id number] [place] [address] 6743 Feb, [facility] [place] [facility] [address] [id number] [address] Feb, [facility] [place] [facility] [address] [id number] [place] [address] 1891 Feb, [facility] [place] [facility] [address] [id number] [place] [address] Feb, [facility] [place] [facility] [address] [id number] [place] [address] 8689 Feb, [facility] [place] [facility] [address] [id number] [place] [address] 9652 Feb, [facility] [place] [facility] [address] [id number] [place] [address]- 9577 Feb, [facility] [place] [facility] [address] [id number] [place] [address] 3706 Feb, [facility] [place] [facility] [address] [id number] [place] [address] 1979 Feb, [facility] [place] [facility] [address] [id number] [place] [address] 0429 Feb, [facility] [place] [facility] [address] [id number] [place] [address] 2897 Feb, [facility] [place] [facility] [address] [id number] [place] [address] 8928 Feb, [facility] [place] [facility] [address] [id number], [place] [address] Jan, [facility] [place] [facility] [address] [id number], [place] [address] 44[address] Jan, [facility] [place] [facility] [address] [id number] [place] [address]- 1384 Dec, [facility] [place] [facility] [address] [id number] [place] [address]- 9036 Dec, [facility] [place] [facility] [address] [id number] [place] [address] 0903 Nov, [facility] [place] [facility] [address] [id number] [place] [address]- 6795 Nov, [facility] [address] [id number] [place] [address] 6848 Nov, [facility] [address] [id number] [place] [address] 3556 Nov, [facility] [address] [id number] [place] [address] 2771 Nov, [facility] [address] [id number] [place] [address] 1762 Oct, [facility] [address] [id number] [place] [address] 2982 September, [facility] [address] [id number] [place] [address] 7183 Aug, [facility] [address] [id number] [place] [address] 8483 Jul, [facility] [address] [id number] [place] [address] 8707 Jul, [facility] [address] [id number] [place] [address] 5539 Jul, [facility] [address] [id number] [place] [address] Jun, [facility] [address] [id number] [place] [address]- 8928 14 Jun, 2012 [facility] [address] [id number] [place] [address] 254 Jun, [facility] [place] [facility] [address] [id number] [place] [address]- 2652 Jun, [facility] [place] [facility] [address] [id number] [place] [address]- 2546 07 Jun, 2012 [facility] [place] [facility] [address] [id number] [place] [address] 8587 May, [facility] [place] [facility] [address] [id number] [place] [address]- 8496 May, [facility] [place] [facility] [address] [id number] [place] [address]- 3615 Apr, [facility] [place] [facility] [address] [facility] [id number] [place] [address] Apr, [facility] [place] [facility] [address] [id number] [place] [address]- 0853 Mar, [facility] [place] [facility] [address] [id number] [place] [address]- 7591 Mar, [facility] [place] [facility] [address] [id number] [place] [address]- 8201 Mar, [facility] [place] [facility] [address] [facility] [id number] [place] [address]- 1839 Mar, [facility] [place] [facility] [address] [id number], [place] [address]- 8318 Mar, [facility] [place] [facility] [address] [id number] [place] [address]- 1223 Mar, [facility] [place] [facility] [address] [facility] [id number], [place] [address]- 8789 Mar, [facility] [place] [facility] [address] [id number], [place] [address]- 2132 Mar, [facility] [place] [facility] [address] [id number], [place] [address]- 5027 Mar, [facility] [place] [facility] [address] [id number], [place] [address]- 7737 Mar, [facility] [place] [facility] [address] [facility] [id number], [place] [address]- 2765 Feb, [facility] [place] [facility] [address] [facility] [id number], [place] [address]- 7340 Feb, [facility] [place] [facility] [address] [id number] [place] [address]- 0853 30 Feb, 2012 [facility] [place] [facility] [address] [id number] [place] [address]- 6363 30 Feb, 2012 [facility] [place] [facility] [address] [id number] [place] [address]- 7476 Feb, [facility] [place] [facility] [address] [id number] [place] [address]- 8366 Feb, [facility] [place] [facility] [address] [id number] [place] [address]- 5096 Jan, [facility] [place] [facility] [address] [id number] [place] [address]- 9715 Jan, [facility] [place] [facility] [address] [id number] [place] [address]- 2572 Dec, [facility] [place] [facility] [address] [id number] [place] [address]- 6707 Dec, [facility] [place] [facility] [address] [id number] [place] [address]- 9284 Dec, [facility] [place] [facility] [address] [id number] [place] [address]- 2051 Nov, [facility] [place] [facility] [address] [id number] [place] [address]- 4530 September, [facility] [place] [facility] [address] [id number] [place] [address]- 8501 September, [facility] [place] [facility] [address] [id number] [place] [address]- 4501 September, [facility] [place] [facility] [address] [id number] [place] [address]- 4729 September, [facility] [place] [facility] [address] [id number] [place] [address]- 6985 Aug, [facility] [place] [facility] [address] [id number] [place] [address]- 4652 Aug, [facility] [place] [facility] [address] [id number] [place] [address]- 3717 Aug, [facility] [place] [facility] [address] [id number] [place] [address]- 9846 Aug, [facility] [place] [facility] [address] [id number] [place] [address]- 5672 Aug, [facility] [place] [facility] [address] [id number] [place] [address]- 3258 Jul, [facility] [place] [facility] [address] [id number] [place] [address]- 5012 Jul, [facility] [place] [facility] [address] [id number] [place] [address]- 7424 Jul, [facility] [place] [facility] [address] [id number] [place] [address]- 3653 29 Jun, 2011 [facility] [place] [facility] [address] [id number] [place] [address]- 1094 17 Jun, 2011 [facility] [place] [facility] [address] [id number] [place] [address]- 0547 Jun, [facility] [place] [facility] [address] [id number] [place] [address]- 2612 Jun, [facility] [place] [facility] [address] [id number] [place] [address]- 1796 Jun, [facility] [place] [facility] [address] [id number] [place] [address]- 8542 Jun, [facility] [place] [facility] [address] [id number] [place] [address]- 1116 Jun, [facility] [place] [facility] [address] [id number] [place] [address]- 0526 24 May, 2011 [facility] [place] [facility] [address] [id number] [place] [address]- 9756 May, [facility] [place] [facility] [address] [id number] [place] [address]- 5971 12 May, 2011 [facility] [address] [id number] [place] [address]- 3451 12 May, 2011 [facility] [place] [facility] [address] [id number] [place] [address]- 0176 27 Apr, 2011 [facility] [address] [id number] [place] [address]- 4446 13 Apr, 2011 [facility] [place] [facility] [address] [id number] [place] [address]- 6046 Mar, [facility] [address] [id number] [place] [address]- 1961 Mar, [facility] [place] [facility] [address] [id number] [place] [address]- 5716 Mar, [facility] [address] [id number] [place] [address]- 6206 Nov, [facility] [place] [facility] [address] [id number] [place] [address]- 4291 May, [facility] [address] [id number] [place] [address]- 9381 Apr, [facility] [address] [id number] [place] [address]- 9985 Apr, [facility] [place] [facility] [address] [id number] [place] [address]- 7525 13 Apr, 2010 [facility] [place] [facility] [address] [id number] [place] [address] 2547 Apr, [facility] [place] [facility] [address] [id number] [place] [address]- 6833 Apr, [facility] [place] [facility] [address] [id number] [place] [address]- 2716 Mar, [facility] [place] [facility] [address] [id number] [place] [address]- 4943 08 Mar, 2010 [facility] [address] [address]- 2546 Feb, [facility] [address], [place] [address]- 2546 Aug, [facility] [address], [place] [address]- 2546 Jul, [facility] [address], [place] [address]- 2546 Jun, [facility] [address], [place] [address]- 2546 Apr, [facility] [address], [place] [address]- 2546 Apr, [facility] [address], [place] [address]- 2546 Mar, [facility] [address], [place] [address]- 2546 Mar, [facility] [address], [place] [address]- 2546 Feb, [facility] [address], [place] [address]- 2546 Dec, [facility] [address] [id number] [address] 2546 Oct, IMMUNIZATIONS No Known Immunizations SOCIAL HISTORY Never Assessed REASON FOR VISIT Lab (add-on) PLAN OF CARE VITAL SIGNS MEDICATIONS Unknown Medications RESULTS Name Result Date Reference Range URINE SODIUM 24 HR 2017-05-16 SODIUM, RANDOM URINE 111 28-272 PROCEDURES Procedure Date Ordered Result Body Site LAB NOT BILLED BY [facility] May 17, 2017 INSTRUCTIONS MEDICATIONS ADMINISTERED No Known [...] chest pain, hypertensive urgency, paroxsysmal htn-[facility] 05/10/16
--- OUTSIDE RECORDS SUMMARY | 2018-09-17 12:05 | XMS REPORT ---
Author Author DESIREE SPENCE [facility] eClinicalWorks Address Unknown Phone Unavailable Care Team Providers Care Relief Mate Name Role Phone DESIREE SPENCE CP Unavailable [...] Start Date End Date Status Dosage Abilify [facility] [address]-67 5 MG Orally Once a day 1 tablet CarBAMazepine ER [facility] [address]-22 200 MG Orally once a day in am & 2 tabs every pm 1 capsule Nortriptyline HCl [facility] [address]-68 25 MG Orally Once a day at bedtime 2 capsule Results No Known Results Summary Purpose eClinicalWorks Submission
--- OUTSIDE RECORDS SUMMARY | 2018-09-17 12:05 | XMS REPORT ---
Author Author JORDY DESIREE Organization [facility] Address [address] [place] [address] Care Team Providers Care Granite Chip Terrazzo Finisher Name Role Phone JORDYCAMPBELL MANSFIELDHANY Unavailable PROBLEMS Type Condition ICD9-CM Code VDH03-CK Code Onset Dates Condition Status SNOMED Code Problem Elevated alkaline phosphatase level R74.8 Active 582571118 Problem Essential hypertension I10 Active 96113886 Problem Obstructive sleep apnea G47.33 Active 67969467 Problem Other chronic gastritis without hemorrhage K29.50 Active 9675523 Problem Paroxysmal atrial fibrillation I48.0 Active 152358389 Problem Vitamin D deficiency E55.9 Active 08076247 Problem Hyperlipidemia E78.5 Active 03014583 Problem Chronic frontal sinusitis J32.1 Active 92971357 Problem Hyponatremia E87.1 Active 58579733 Problem Seasonal allergies J30.2 Active 469281118 Problem Mild intermittent asthma without complication J45.20 Active 661567102 Problem Chronic migraine G43.709 Active 87631530 Problem Primary insomnia F51.01 Active 978276123 Problem Hidradenitis L73.2 Active 99637762 Problem Generalized anxiety disorder F41.1 Active 470143712 Problem Idiopathic peripheral neuropathy G60.9 Active 79688216 ALLERGIES Unknown Allergies SOCIAL HISTORY No smoking Hx information available PLAN OF CARE VITAL SIGNS MEDICATIONS Unknown Medications RESULTS Name Result Date Reference Range [facility] 2016-05-18 Glucose, Serum 99 65-99 BUN 7 6-24 Creatinine, Serum 0.63 0.57-1.00 eGFR If NonAfricn Am 101 >59 eGFR If Africn Am 117 >59 BUN/Creatinine Ratio 11 9-23 Sodium, Serum 133 134-144 Potassium, Serum 4.5 3.5-5.2 Chloride, Serum 92 96-106 Carbon Dioxide, Total 23 18-29 Calcium, Serum 9.0 8.7-10.2 PROCEDURES Procedure Date Ordered Related Diagnosis Body Site LAB NOT BILLED BY [facility] May 18, 2016 VENIPUNCT, ROUTINE* May 18, 2016 IMMUNIZATIONS No Known Immunizations
--- OUTSIDE RECORDS SUMMARY | 2018-09-17 12:05 | XMS REPORT ---
Author Author DESIREE SPENCE Organization [facility] Address [address] [place] [address] Care Team Providers Care Couture Alterations Dressmaker Name Role Phone JORDY DESIREE Unavailable PROBLEMS Type Condition ICD9-CM Code OAW24-EB Code Onset Dates Condition Status SNOMED Code Problem Elevated alkaline phosphatase level R74.8 Active 219485985 Problem Essential hypertension I10 Active 05099469 Problem Obstructive sleep apnea G47.33 Active 26263468 Problem Other chronic gastritis without hemorrhage K29.50 Active 8671934 Problem Paroxysmal atrial fibrillation I48.0 Active 131366122 Problem Vitamin D deficiency E55.9 Active 81496641 Problem Hyperlipidemia E78.5 Active 58699595 Problem Chronic frontal sinusitis J32.1 Active 50333110 Problem Hyponatremia E87.1 Active 93289663 Problem Seasonal allergies J30.2 Active 220291517 Problem Mild intermittent asthma without complication J45.20 Active 250078807 Problem Chronic migraine G43.709 Active 72229374 Problem Primary insomnia F51.01 Active 515381985 Problem Hidradenitis L73.2 Active 41174919 Problem Generalized anxiety disorder F41.1 Active 673574952 Problem Idiopathic peripheral neuropathy G60.9 Active 18729786 ALLERGIES Unknown Allergies SOCIAL HISTORY No smoking Hx information available PLAN OF CARE VITAL SIGNS MEDICATIONS Medication Instructions Dosage Frequency Start Date End Date Duration Status Pepcid 20 mg Orally 2 times a day 1 tablet at bedtime 12h 30 days Active RESULTS No Results PROCEDURES No Known procedures IMMUNIZATIONS No Known Immunizations
--- OUTSIDE RECORDS SUMMARY | 2018-09-17 12:05 | XMS REPORT ---
Author Author DESIREE SPENCE Organization [facility] Address [address] [place] [address] Care Team Providers Care Mat Repairer Name Role Phone JORDY DESIREE Unavailable PROBLEMS Type Condition ICD9-CM Code AGX43-EE Code Onset Dates Condition Status SNOMED Code Problem Elevated alkaline phosphatase level R74.8 Active 423676770 Problem Essential hypertension I10 Active 26836825 Problem Obstructive sleep apnea G47.33 Active 89429505 Problem Other chronic gastritis without hemorrhage K29.50 Active 0690802 Problem Paroxysmal atrial fibrillation I48.0 Active 159459589 Problem Vitamin D deficiency E55.9 Active 02447021 Problem Hyperlipidemia E78.5 Active 98655461 Problem Chronic frontal sinusitis J32.1 Active 23586588 Problem Hyponatremia E87.1 Active 15603663 Problem Seasonal allergies J30.2 Active 514687839 Problem Mild intermittent asthma without complication J45.20 Active 740393636 Problem Chronic migraine G43.709 Active 86884196 Problem Primary insomnia F51.01 Active 408191602 Problem Hidradenitis L73.2 Active 06176783 Problem Generalized anxiety disorder F41.1 Active 601209672 Problem Idiopathic peripheral neuropathy G60.9 Active 95852482 ALLERGIES Unknown Allergies SOCIAL HISTORY No smoking Hx information available PLAN OF CARE VITAL SIGNS MEDICATIONS Medication Instructions Dosage Frequency Start Date End Date Duration Status Xarelto 20 mg Orally Once a day 1 tablet with food 24h 30 days Active RESULTS No Results PROCEDURES No Known procedures IMMUNIZATIONS No Known Immunizations
--- OUTSIDE RECORDS SUMMARY | 2018-09-17 12:05 | XMS REPORT ---
Author Author DESIREE SPENCE eClinicalWorks Address Unknown Phone Unavailable Care Team Providers Care Acid Treater Name Role Phone DESIREE SPENCE CP Unavailable [...] Instructions Start Date End Date Status Dosage Omeprazole [facility] [address]-47 20 MG Orally Once a day Jan 30, 2014 1 capsule Results No Known Results Summary Purpose eClinicalWorks Submission
--- OUTSIDE RECORDS SUMMARY | 2018-09-17 12:05 | XMS REPORT ---
Author Author JORDY DESIREE [facility] Address [address] [place] [address] Care Team Providers Care Supervisor Transcribing Operators Name Role Phone JORDYCAMPBELL MANSFIELDHANY Unavailable PROBLEMS Type Condition ICD9-CM Code ZEF90-CV Code Onset Dates Condition Status SNOMED Code Problem Elevated alkaline phosphatase level R74.8 Active 449625772 Problem Essential hypertension I10 Active 91230902 Problem Obstructive sleep apnea G47.33 Active 56602877 Problem Other chronic gastritis without hemorrhage K29.50 Active 6708628 Problem Paroxysmal atrial fibrillation I48.0 Active 026834294 Problem Vitamin D deficiency E55.9 Active 95469194 Problem Hyperlipidemia E78.5 Active 48869640 Problem Chronic frontal sinusitis J32.1 Active 84084554 Problem Hyponatremia E87.1 Active 35602248 Problem Seasonal allergies J30.2 Active 029624322 Problem Mild intermittent asthma without complication J45.20 Active 158981250 Problem Chronic migraine G43.709 Active 51109017 Problem Primary insomnia F51.01 Active 835079215 Problem Hidradenitis L73.2 Active 22770373 Problem Generalized anxiety disorder F41.1 Active 775004729 Problem Idiopathic peripheral neuropathy G60.9 Active 02867153 ALLERGIES Substance Reaction Event Type Date Status Amitriptyline HCl Unknown Drug Allergy September, Active SOCIAL HISTORY Never Assessed PLAN OF CARE Activity Details Follow Up 6 Months Reason:HTN VITAL SIGNS Height 66 in 2016-09-14 Weight 260.5 lbs 2016-09-14 Temperature 98.7 degrees Fahrenheit 2016-09-14 Heart Rate 74 bpm 2016-09-14 Respiratory Rate 18 2016-09-14 BMI 42.04 kg/m2 2016-09-14 Blood pressure systolic 138 mmHg 2016-09-14 Blood pressure diastolic 83 mmHg 2016-09-14 MEDICATIONS Medication Instructions Dosage Frequency Start Date End Date Duration Status Xarelto 20 mg Orally Once a day 1 tablet with food 24h September, 90 days Active Lisinopril 40 MG Orally Once a day 1 tablet 24h Mar, Active Alprazolam 0.5 mg take 1 tablet by Oral route 2 times per day Jan, Active Carafate 1 GM Orally 4 times a day 1 tablet on an empty stomach 6h Active Metoprolol Succinate ER 50 MG Orally Once a day 1 tablet 24h Active ProAir HFA 108 (90 Base) mcg/act 2 puffs by Inhalation route 4 times per day PRN needs to keep appointment 01-10-14 Dec, Active Diltiazem CD 240 MG Orally Once a day 1 capsule 24h Active BusPIRone HCl 10 mg Orally Once a day 2 tablets 24h Active Viibryd 10 mg Orally Once a day 1 tablet 24h Active Flonase 50 MCG/ACT Nasally Once a day 1 spray in each nostril 24h Nov, Active CarBAMazepine ER 200 MG Orally once a day in am & 2 tabs every pm 1 capsule Active Nortriptyline HCl 25 MG Orally Once a day at bedtime 2 capsule Active Amlodipine Besylate 5 MG Orally Once a day 1 tablet 24h Active Protonix 40 MG Orally Once a day 1 tablet 24h Active Nystatin 006943 UNIT/GM Externally Twice a day 1 application to affected area 12h Active Klor-Con M20 20 MEQ Orally Once a day 1 tablet with food 24h 90 days Active Abilify 5 MG Orally Once a day 1 tablet 24h Active Pepcid 20 mg Orally 2 times a day 1 tablet at bedtime 12h 90 days Active Hydrochlorothiazide 12.5 MG Orally Once a day 1 tablet 24h Active Ambien 5 MG take 1 tablet by Oral route at bedtime 1 time per day Jul, 28 days Active RESULTS Name Result Date Reference Range UA W/CULTURE IF INDICATED (IN HOUSE) 2016-09-14 Lot # [id number] Exp date 06/2017 Clarity clear Color yellow Odor no GLU neg SIMON neg KET neg SG 1.010 BLO neg pH 6.0 Protein neg URO 0.2 NIT neg PATTIE 1+ Lot # Exp date CULTURE, URINE 2016-09-14 Urine Culture, Routine Final report Result 1 PROCEDURES Procedure Date Ordered Result Body Site [facility] VISIT ESTABLISHED PATIENT September 14, 2016 [facility], 2016 URINALYSIS, AUTO, W/O SCOPE September 14, 2016 IMMUNIZATIONS No Known Immunizations MEDICAL (GENERAL) HISTORY Type Description Date Medical History hypertension Medical History neuropathy Medical History depression Medical History anxiety Medical History Hyposmolality and/or hyponatremia Surgical History cleaned out left side of sinuses 2013 Surgical History colonscopy 09/03/15 Hospitalization History cellulitis 09/2013 Hospitalization History surgery 2013 Hospitalization History A Fib--[facility] 03/08/2016 Hospitalization History acute chest pain, hypertensive urgency, paroxsysmal htn-[facility] 05/10/16
--- OUTSIDE RECORDS SUMMARY | 2018-09-17 12:06 | XMS REPORT ---
Author Author DESIREE SPENCE eClinicalWorks Address Unknown Phone Unavailable Care Team Providers Care Gastroenterologist Name Role Phone DESIREE SPENCE CP Unavailable [...] Start Date End Date Status Dosage Ambien [facility] [address]-31 5 MG July 18, 2014 take 1 tablet by Oral route at bedtime 1 time per day Results No Known Results Summary Purpose eClinicalWorks Submission
--- OUTSIDE RECORDS SUMMARY | 2018-09-17 12:06 | XMS REPORT ---
Author CHAPINCITO Bar e[employer] Address Unknown Phone Unavailable Care Team Providers Care As400 Consultant Name Role Phone CHAPINCITO VELA CP Unavailable Allergies, Adverse Reactions, Alerts Substance [...] Problem Elevated alkaline phosphatase level 790.5 Active Assessment Cat allergies J30.81 Active Assessment Seasonal allergies J30.2 Active Problem Chronic frontal sinusitis 473.1 Active Problem Headache 784.0 Active Assessment Asthma, unspecified, unspecified status 493.90 Active Problem Persistent disorder of initiating or maintaining sleep 307.42 Active Assessment Acute recurrent maxillary sinusitis J01.01 Active Problem Hidradenitis 705.83 Active Medications Medication Code System Code Instructions Start Date End Date Status Dosage Abilify [facility] [address]-99 5 MG Orally Once a day 1 tablet Ambien [facility] [address]-74 5 MG July 18, 2014 take 1 tablet by Oral route at bedtime 1 time per day Alprazolam [facility] [address]-60 0.5 mg Jan 30, 2014 take 1 tablet by Oral route 2 times per day Pristiq [facility] [address]-55 100 mg Jan 30, 2014 once daily CarBAMazepine ER [facility] [address]-93 200 MG Orally once a day in am & 2 tabs every pm 1 capsule Nortriptyline HCl [facility] [address]-78 25 MG Orally Once a day at bedtime 2 capsule buspirone [facility] 0 5 mg Feb 20, 2014 take 2 tablets by Oral route 4 times per day Amoxicillin [facility] [address]-79 875 MG Orally Twice a day Feb 28, 2015 Mar 10, 2015 1 tablet Hydrochlorothiazide [facility] 03416423939 12.5 MG 1 CAPSULE BY ORAL ROUTE 1 TIME PER DAY Nystatin [facility] [id number] 468560 UNIT/GM 1 APPLICATION 3 TIMES PER DAY APPLY TO AFFECTED AREA 3 TIMES DAILY NEEDED FOR YEAST INFECTION. Propranolol HCl [facility] 12215306308 40 MG 1 TABLET BY ORAL ROUTE 2 TIMES PER DAY FOR HEADACHE PREVENTION Lisinopril [facility] 47975915015 20 MG Orally Once a day 1 tablet Procedures Procedure Coding System Code Date Office Visit, Est Pt., Level 3 CPT-4 05175 Feb 28, 2015 [facility] VISIT ESTABLISHED PATIENT CPT-4 G0467 Feb 28, 2015 Vital Signs Date/Time: Feb 28, 2015 Temperature 97.7 F Weight 261.3 lbs Height 66 in BMI 42.17 Index Blood Pressure Diastolic 92 mmHg Blood Pressure Systolic 158 mmHg Cardiac Monitoring Heart Rate 72 bpm Results No Known Results Summary Purpose eClinicalWorks Submission
--- OUTSIDE RECORDS SUMMARY | 2018-09-17 12:06 | XMS REPORT ---
Author Author DESIREE SPENCE [facility] Address [address] [place] [address] Care Team Providers Care Machine Steak Tenderizer Name Role Phone JORDYCAMPBELLDESIREE Unavailable PROBLEMS Type Condition ICD9-CM Code IKH00-TD Code Onset Dates Condition Status SNOMED Code Problem Elevated alkaline phosphatase level R74.8 Active 588256273 Problem Essential hypertension I10 Active 20378391 Problem Obstructive sleep apnea G47.33 Active 90582586 Problem Other chronic gastritis without hemorrhage K29.50 Active 3873726 Problem Paroxysmal atrial fibrillation I48.0 Active 664021067 Problem Vitamin D deficiency E55.9 Active 81538269 Problem Hyperlipidemia E78.5 Active 09205318 Problem Chronic frontal sinusitis J32.1 Active 20700082 Problem Hyponatremia E87.1 Active 77732124 Problem Seasonal allergies J30.2 Active 535272090 Problem Mild intermittent asthma without complication J45.20 Active 141641778 Problem Chronic migraine G43.709 Active 50724727 Problem Primary insomnia F51.01 Active 965863262 Problem Hidradenitis L73.2 Active 68165773 Problem Generalized anxiety disorder F41.1 Active 697241204 Problem Idiopathic peripheral neuropathy G60.9 Active 84634735 ALLERGIES No Information SOCIAL HISTORY Never Assessed PLAN OF CARE VITAL SIGNS MEDICATIONS Medication Instructions Dosage Frequency Start Date End Date Duration Status Xarelto 20 mg Orally Once a day 1 tablet with food 24h September, 90 days Active Hydrochlorothiazide 12.5 MG Orally [...] History surgery 2013 Hospitalization History A Fib--[facility] 03/08/2016 Hospitalization History acute chest pain, hypertensive urgency, paroxsysmal htn-[facility] 05/10/16
--- OUTSIDE RECORDS SUMMARY | 2018-09-17 12:07 | XMS REPORT ---
Author Author JORDY DESIREE Organization [facility], [place] Address [address] [place] [address] Care Team Providers Care Mechanical Maintenance Name Role Phone SANTIAGO SPENCEY Unavailable PROBLEMS Type Condition ICD9-CM Code [id number] Code Onset Dates Condition Status SNOMED Code Problem Essential hypertension I10 Active 87028951 Problem Vitamin D deficiency E55.9 Active 39149598 Problem Hyperlipidemia E78.5 Active 85056210 Problem Depression, unspecified depression type F32.9 Active 48565502 Problem Fasciculations of muscle R25.3 Active 82510733 Problem Chronic frontal sinusitis J32.1 Active 82628101 Problem Hyponatremia E87.1 Active 33162681 Problem Other chronic gastritis without hemorrhage K29.50 Active 2652702 Problem Paroxysmal atrial fibrillation I48.0 Active 090786462 Problem Primary insomnia F51.01 Active 292971700 Problem Generalized anxiety disorder F41.1 Active 117456628 Problem Seasonal allergies J30.2 Active 540079042 Problem Hidradenitis L73.2 Active 49595706 Problem Idiopathic peripheral neuropathy G60.9 Active 60191379 Problem Mild intermittent asthma without complication J45.20 Active 523411290 Problem Elevated alkaline phosphatase level R74.8 Active 993049869 Problem Chronic migraine G43.709 Active 38264918 Problem Obstructive sleep apnea G47.33 Active 62438602 ALLERGIES No Information ENCOUNTERS Encounter Location Date Diagnosis [facility] [place] [id number] [place] [address] 24236- 0837 September, [facility] [id number] [place] [address] 12077 -9172 Jun, Dysuria R30.0 ; UTI symptoms R39.9 and Candidiasis of breast B37.89 [facility] [place] [id number] [place] [address] 26484- 9257 Jun, Hyponatremia E87.1 [facility] [place] [address] [address] 2458 Jun, Hyponatremia E87.1 [facility] [place] [id number] [place] [address] 91659- 9080 Jun, Hyponatremia E87.1 [facility] [place] [id number] [place] [address] 52344- 8207 Jun, [facility] [place] [id number] [place] [address] 00405- 2997 May, Hyponatremia E87.1 [facility] [place] [id number] [place] [address] 50609- 7725 May, Hyponatremia E87.1 [facility] [place] [id number] [place] [address] 72624- 4930 May, Hyponatremia E87.1 [facility] [place] [id number] [place] [address] 75600- 1835 May, Hyponatremia E87.1 [facility] [place] [id number] [place] [address] 85303- 8413 Apr, Hyponatremia E87.1 ; Fasciculations of muscle R25.3 and Hyperlipidemia E78.5 [place] [id number] [place] [address] 80784- 7086 Apr, Cough R05 ; Hyponatremia E87.1 ; Fasciculations of muscle R25.3 ; Primary insomnia F51.01 ; Essential hypertension I10 ; Hyperlipidemia E78.5 ; Screening for breast cancer Z12.31 and BMI 40.0-44.9, adult Z68.41 [facility] [place] [id number] [place] [address] 57915- 8458 Apr, Essential hypertension I10 [facility] [place] [id number] [place] [address] 27200- 3392 Mar, [facility] [place] [address] [place] [address]- 5428 Mar, [facility] [place] [address] [address] 5340 Mar, [facility] [place] [address] [address]- 0935 Feb, [facility] [place] [id number] [place] [address] 20737- 5631 Jan, [facility] [place] [address] [address]- 8575 Dec, Essential hypertension I10 [facility] [place] [id number] [place] [address], [place] [address]- 2543 Dec, [facility] [place] [address] [address]- 0529 Dec, Essential hypertension I10 [facility] [place] [id number] [place] [address] 73672- 4238 Nov, [facility] [place] [address] [address]- 7599 Oct, Essential hypertension I10 [facility] [place] [address] [address]- 4965 Oct, Essential hypertension I10 [facility] [place] [address] [address]- 7579 Oct, [facility] [place] [address] [address]- 8277 September, [facility] [place] [address] [address]- 0483 September, Essential hypertension I10 [facility] [place] [address] [address]- 8676 September, [facility] [place] [address] [address]- 6423 September, Essential hypertension I10 ; Hyperlipidemia E78.5 and Hyponatremia E87.1 [facility] [place] [facility] [id number] [place] [address] 89931- 4925 September, Mild intermittent asthma without complication J45.20 ; Essential hypertension I10 ; Hyperlipidemia E78.5 ; Hyponatremia E87.1 and Dysuria R30.0 [facility] [place] [id number] [place] [address] 21737- 1924 September, Other chronic gastritis without hemorrhage K29.50 ; Paroxysmal atrial fibrillation I48.0 and Essential hypertension I10 [place] [id number] [place] [address] 06351- 9069 Aug, [place] [address] 27438- 5539 Jul, [facility] [place] [id number] [place] [address] 21927- 9874 14 Jun, 2016 [facility] [id number] [place] [address] 22440 -9988 Jun, Dysuria R30.0 and Acute cystitis with hematuria N30.01 [place] [id number] [place] [address] 98110- 0471 Jun, Essential hypertension I10 [place] [id number] [place] [address] 05478- 0134 May, Paroxysmal atrial fibrillation I48.0 [place] [id number] [place] [address] 87926- 7977 May, Other chronic gastritis without hemorrhage K29.50 [facility] [place] [id number] [place] [address] 68912- 2264 May, [facility] [place] [id number] [place] [address] 05837- 5395 May, Hyponatremia E87.1 ; Essential hypertension I10 and Other chronic gastritis without hemorrhage K29.50 [place] [id number] [place] [address] 94968- 5641 May, Hyponatremia E87.1 [facility] [place] [id number] [place] [address] 56993- 2819 May, Hyponatremia E87.1 [facility] [place] [address] [id number] May, 2016 [facility] [place] [id number] [place] [address] 68267- 1622 16 Apr, 2016 [facility] [place] [id number] [place] [address] 32348- 1936 Apr, [facility] [place] [id number] [place] [address] 62844- 8399 Mar, Essential hypertension I10 and Candidal intertrigo B37.2 [facility] [place] [id number] [place] [address] 96007- 0612 Mar, Hyponatremia E87.1 [facility] [place] [id number] [place] [address] 09130- 4931 14 Mar, 2016 [facility] [place] [id number] [place] [address] 00077- 1027 Mar, Hyponatremia E87.1 [facility] [place] [id number] [place] [address] 69526- 3844 09 Mar, 2016 Essential hypertension I10 ; Hyponatremia E87.1 ; Slurred speech R47.81 ; Paroxysmal atrial fibrillation I48.0 and Elevated blood sugar R73.9 [facility] [place] [id number] [place] [address] 60900- 4546 Mar, [facility] [place] [id number] [place] [address] 86155- 6725 Mar, [facility] [place] [id number] [place] [address] 75986- 2687 Feb, [facility] [place] [id number] [place] [address] 15528- 5861 15 Jan, 2016 [facility] [place] [address] [address]- 6316 Dec, [facility] [address] [address] -5641 Nov, Scratched by cat, initial encounter W55.03XA and Other injury of unspecified body region T14.8 [facility] [place] [address] [address]- 1661 Nov, [facility] [place] [id number] [place] [address] 99214- 3149 Oct, [facility] [place] [id number] [place] [address] 14818- 7703 September, [facility] [place] [id number] [place] [address] 68953- 5563 Aug, Elevated alkaline phosphatase level R74.8 [facility] [place] [id number] [place] [address] 49881- 5166 Jul, [facility] [place] [id number] [place] [address] 35062- 3897 Jun, Essential hypertension I10 and Bright red blood per rectum K62.5 [place] [address] [address]- 9545 Jun, Elevated alkaline phosphatase level R74.8 [place] [address] [address]- 3178 Jun, [facility] [place] [address] [place] [address] 41615- 6925 May, Essential hypertension I10 ; Hyperlipidemia E78.5 and Well woman exam (no gynecological exam) Z00.00 [place] [address] [address]- 5015 May, [facility] [place] [address] [address]- 8965 May, [facility] [place] [id number] [place] [address] 74148- 4152 Mar, [place] [id number] [place] [address] 49386- 7871 Mar, [place] [id number] [place] [address] 16739- 1930 Mar, [place] [address] 34880- 7091 Feb, Acute recurrent maxillary sinusitis J01.01 ; Asthma, unspecified, unspecified status 493.90 ; Seasonal allergies J30.2 and Cat allergies J30.[address] 69641- 4495 Feb, Upper respiratory tract infection, unspecified upper respiratory infection J06.[address] 41534- 2877 Jan, [place] [id number] [place] [address] 96849- 0237 Jan, Dysphagia 787.20 and GERD (gastroesophageal reflux disease) 530.[address] [place] [id number] [place] [address] 85229- 3077 Jan, Breast lesion 611.9 [place] [id number] [place] [address] 90433- 2540 Dec, Breast lesion 611.9 [place] [id number] [place] [address] 94275- 9177 Dec, Breast lesion 611.9 [place] [id number] [place] [address] 34430- 9573 Nov, Fatigue 780.79 and Hyperlipidemia 272.[address] [id number] [place] [address] 14262298- 3703 Nov, Hypertension 401.9 ; Hyperlipidemia 272.4 ; Chronic frontal sinusitis 473.1 and Fatigue 780.[address] [place] [address]- 1721 08 Nov, 2014 [facility] [place] [facility] [address] [id number] [place] [address]- 6903 Oct, [facility] [place] [facility] [address] [id number] [place] [address]- 7838 Oct, [facility] [place] [facility] [address] [id number] [place] [address]- 9559 September, [facility] [place] [facility] [address] [id number] [place] [address]- 3226 September, [facility] [place] [facility] [address] [id number] [place] [address]- 0677 September, [facility] [place] [facility] [address] [id number] [place] [address]- 5356 September, [facility] [place] [facility] [address] [id number] [place] [address]- 0668 Aug, [facility] [place] [facility] [address] [id number] [place] [address]- 1678 14 Aug, 2014 [facility] [place] [facility] [address] [id number] [place] [address]- 4179 Aug, [facility] [place] [facility] [address] [id number] [place] [address]- 9408 Jul, [facility] [place] [facility] [address] [id number] [place] [address]- 1709 20 Jul, 2014 [facility] [place] [facility] [address] [id number] [place] [address]- 8928 Jul, [facility] [place] [facility] [address] [id number] [place] [address]- 9237 19 Jul, 2014 [facility] [place] [facility] [address] [id number] [place] [address]- 0512 18 Jul, 2014 [facility] [place] [facility] [address] [id number] [place] [address]- 3526 17 Jul, 2014 [facility] [place] [facility] [address] [id number] [place] [address]- 8398 17 Jul, 2014 [facility] [place] [facility] [address] [id number] [place] [address]- 7948 Jul, [facility] [place] [facility] [address] [id number] [place] [address]- 9278 16 Jul, 2014 [facility] [place] [facility] [address] [id number] [place] [address]- 8788 Jul, [facility] [place] [facility] [address] [id number] [place] [address]- 3198 Jul, [facility] [place] [facility] [address] [id number] [place] [address]- 2361 Jul, [facility] [place] [facility] [address] [id number] [place] [address]- 0054 Jul, [facility] [place] [facility] [address] [id number] [place] [address]- 8880 Jul, [facility] [place] [facility] [address] [id number] [place] [address]- 5599 Jul, [facility] [place] [facility] [address] [id number] [place] [address]- 1189 Jun, [facility] [place] [facility] [address] [id number] [place] [address]- 0168 Jun, [facility] [place] [facility] [address] [id number], [place] [address]- 0667 Jun, [facility] [place] [facility] [address] [id number] [place] [address]- 1560 Jun, [facility] [place] [facility] [address] [id number] [place] [address]- 3458 May, [facility] [place] [facility] [address] [id number] [place] [address]- 7150 May, [facility] [place] [facility] [address] [id number] [place] [address]- 4952 13 May, 2014 [facility] [place] [facility] [address] [id number] [place] [address]- 8679 May, [facility] [place] [facility] [address] [id number] [place] [address]- 1243 Apr, [facility] [place] [facility] [address] [id number] [place] [address]- 0610 Apr, [facility] [place] [facility] [address] [id number] [place] [address]- 9150 Apr, [facility] [place] [facility] [address] [id number] [place] [address]- 1318 Apr, [facility] [place] [facility] [address] [id number] [place] [address]- 4094 Apr, [facility] [place] [facility] [address] [facility] [id number] [place] [address]- 5436 Apr, [facility] [place] [facility] [address] [id number] [place] [address]- 0315 Mar, [facility] [place] [facility] [address] [id number] [place] [address]- 2738 Mar, [facility] [place] [facility] [address] [facility] [id number] [place] [address]- 2836 Mar, [facility] [place] [facility] [address] [id number] [place] [address]- 3740 Mar, [facility] [place] [facility] [address] [id number] [place] [address]- 9302 Mar, [facility] [place] [facility] [address] [id number] [place] [address]- 6565 Mar, [facility] [place] [facility] [address] [id number] [place] [address]- 4726 Mar, [facility] [place] [facility] [address] [facility] [id number] [place] [address]- 4206 Mar, [facility] [place] [facility] [address] [id number] [place] [address]- 4223 Mar, [facility] [place] [facility] [address] [id number] [place] [address]- 3454 Mar, [facility] [place] [facility] [address] [id number] [place] [address]- 5466 Mar, [facility] [place] [facility] [address] [id number] [place] [address]- 6874 Mar, [facility] [place] [facility] [address] [id number] [place] [address]- 4842 Mar, [facility] [place] [facility] [address] [id number] [place] [address]- 9967 Mar, [facility] [place] [facility] [address] [id number] [place] [address]- 2729 Mar, [facility] [place] [facility] [address] [id number] [place] [address]- 6510 Mar, [facility] [place] [facility] [address] [id number] [place] [address]- 4275 Mar, [facility] [place] [facility] [address] [id number] [place] [address]- 3636 Feb, [facility] [place] [facility] [address] [facility] [id number] [place] [address]- 5762 Feb, [facility] [place] [facility] [address] [id number] [place] [address]- 4278 Feb, [facility] [place] [facility] [address] [id number] [place] [address]- 7382 Feb, [facility] [place] [facility] [address] [id number] [place] [address]- 2421 Feb, [facility] [place] [facility] [address] [id number] [place] [address]- 4462 Feb, [facility] [place] [facility] [address] [id number] [place] [address]- 0005 Feb, [facility] [place] [facility] [address] [id number] [place] [address]- 2202 Feb, [facility] [place] [facility] [address] [id number] [place] [address]- 3122 Feb, [facility] [place] [facility] [address] [id number] [place] [address]- 9364 Feb, [facility] [place] [facility] [address] [id number] [place] [address]- 1026 Feb, [facility] [place] [facility] [address] [id number] [place] [address]- 0101 Feb, [facility] [place] [facility] [address] [id number] [place] [address]- 9908 Feb, [facility] [place] [facility] [address] [id number] [place] [address]- 8275 Feb, [facility] [place] [facility] [address] [id number] [place] [address]- 5549 Feb, [facility] [place] [facility] [address] [id number] [place] [address]- 8583 Feb, [facility] [place] [facility] [address] [id number], [place] [address]- 3107 Feb, [facility] [place] [facility] [address] [id number], [place] [address]- 9735 Feb, [facility] [place] [facility] [address] [id number], [place] [address]- 0302 Feb, [facility] [place] [facility] [address] [id number] [place] [address]- 8806 30 Jan, 2014 [facility] [place] [facility] [address] [id number] [place] [address]- 8770 30 Jan, 2014 [facility] [place] [facility] [address] [id number] [place] [address]- 3672 29 Jan, 2014 [facility] [place] [facility] [address] [id number] [place] [address]- 0741 29 Jan, 2014 [facility] [place] [facility] [address] [id number] [place] [address]- 2384 24 Jan, 2014 [facility] [place] [facility] [address] [id number] [place] [address]- 7256 24 Jan, 2014 [facility] [place] [facility] [address] [id number] [place] [address]- 1782 Jan, [facility] [place] [facility] [address] [id number] [place] [address]- 7174 Jan, [facility] [place] [facility] [address] [id number] [place] [address]- 1412 Jan, [facility] [place] [facility] [address] [id number] [place] [address]- 8630 Dec, [facility] [place] [facility] [address] [id number] [place] [address]- 8087 Dec, [facility] [place] [facility] [address] [id number] [place] [address]- 9811 Dec, [facility] [place] [facility] [address] [id number] [place] [address]- 6032 Dec, [facility] [place] [facility] [address] [id number] [place] [address]- 5958 Dec, [facility] [place] [facility] [address] [id number] [place] [address]- 3069 Dec, [facility] [place] [facility] [address] [id number] [place] [address]- 6475 Dec, [facility] [place] [facility] [address] [id number] [place] [address] Dec, [facility] [place] [facility] [address] [id number] [place] [address] Dec, [facility] [place] [facility] [address] [id number] [place] [address] Nov, [facility] [place] [facility] [address] [id number] [place] [address] Nov, [facility] [place] [facility] [address] [id number] [place] [address] Nov, [facility] [place] [facility] [address] [id number] [place] [address] Nov, [facility] [place] [facility] [address] [id number] [place] [address] Nov, [facility] [place] [facility] [address] [id number] [place] [address] Nov, [facility] [place] [facility] [address] [id number] [place] [address] Oct, [facility] [place] [facility] [address] [id number] [place] [address] Oct, [facility] [place] [facility] [address] [id number] [place] [address] Oct, [facility] [place] [facility] [address] [id number] [place] [address] Oct, [facility] [place] [facility] [address] [id number] [place] [address] Oct, [facility] [place] [facility] [address] [id number] [place] [address] 2012 Oct, [facility] [place] [facility] [address] [id number] [place] [address] Oct, [facility] [place] [facility] [address] [id number] [place] [address] Oct, [facility] [place] [facility] [address] [id number] [place] [address] Oct, [facility] [place] [facility] [address] [id number] [place] [address] Oct, [facility] [place] [facility] [address] [id number] [place] [address] Oct, [facility] [place] [facility] [address] [id number] [place] [address] Oct, [facility] [place] [facility] [address] [id number] [place] [address] Oct, [facility] [place] [facility] [address] [id number] [place] [address] Oct, [facility] [place] [facility] [address] [id number] [place] [address] September, [facility] [place] [facility] [address] [id number] [place] [address]- [address] September, [facility] [place] [facility] [address] [id number] [place] [address] September, [facility] [place] [facility] [address] [id number] [place] [address]- [address] September, [facility] [place] [facility] [address] [id number] [place] [address] September, [facility] [place] [facility] [address] [id number] [place] [address] September, [facility] [place] [facility] [address] [id number] [place] [address]- [address] September, [facility] [place] [facility] [address] [id number] [place] [address] September, [facility] [place] [facility] [address] [id number] [place] [address]- [address] September, [facility] [place] [facility] [address] [id number] [place] [address] September, [facility] [place] [facility] [address] [id number] [place] [address]- [address] September, [facility] [place] [facility] [address] [id number] [place] [address] September, [facility] [place] [facility] [address] [id number] [place] [address] September, [facility] [address] [id number] [place] [address] September, [facility] [address] [id number] [place] [address] September, [facility] [address] [id number] [place] [address] September, [facility] [address] [id number] [place] [address] September, [facility] [address] [id number] [place] [address] September, [facility] [address] [id number] [place] [address] September, [facility] [address] [id number] [place] [address]- [address] Aug, [facility] [address] [id number] [place] [address] Aug, [facility] [address] [id number] [place] [address] Jul, [facility] [address] [id number] [place] [address] Jul, [facility] [facility] [place] [facility] [address] [id number] [place] [address] Jul, [facility] [place] [facility] [address] [id number] [place] [address] Jul, [facility] [place] [facility] [address] [id number] [place] [address] Jul, [facility] [place] [facility] [address] [id number] [place] [address] Jul, [facility] [place] [facility] [address] [id number] [place] [address] Jul, [facility] [place] [facility] [address] [id number] [place] [address] Jul, [facility] [place] [facility] [address] [id number] [place] [address] Jul, [facility] [place] [facility] [address] [id number] [place] [address] Jul, [facility] [place] [facility] [address] [id number] [place] [address] 96[address] Jul, [facility] [place] [facility] [address] [id number] [place] [address] 14 Jul, 2013 [facility] [place] [facility] [address] [id number] [place] [address] Jul, [facility] [place] [facility] [address] [id number] [place] [address] Jul, [facility] [place] [facility] [address] [id number] [place] [address] 6499 10 Jun, 2013 [facility] [place] [facility] [address] [id number] [place] [address]- 6[address] 10 Jun, 2013 [facility] [place] [facility] [address] [id number] [place] [address]- 0281 10 Jun, 2013 [facility] [place] [facility] [address] [id number] [place] [address] 7427 Jun, [facility] [place] [facility] [address] [id number] [place] [address] 2978 May, [facility] [place] [facility] [address] [id number] [place] [address] 0[address] May, [facility] [place] [facility] [address] [id number] [place] [address] 5097 May, [facility] [place] [facility] [address] [id number] [place] [address] 2834 May, [facility] [place] [facility] [address] [id number] [place] [address] 08 May, 2013 [facility] [place] [facility] [address] [id number] [place] [address]- 2992 14 Mar, 2013 [facility] [place] [facility] [address] [id number] [place] [address]- 4416 14 Mar, 2013 [facility] [place] [facility] [address] [id number] [place] [address]- 4101 07 Mar, 2013 [facility] [place] [facility] [address] [id number] [place] [address]- 2987 07 Mar, 2013 [facility] [place] [facility] [address] [id number] [place] [address]- 1510 Mar, [facility] [place] [facility] [address] [id number] [place] [address] 8014 Mar, [facility] [place] [facility] [address] [id number] [place] [address]- 6117 Feb, [facility] [place] [facility] [address] [id number] [place] [address]- 5710 Feb, [facility] [place] [facility] [address] [id number] [place] [address]- 2400 Feb, [facility] [place] [facility] [address] [id number] [place] [address]- 5542 Feb, [facility] [place] [facility] [address] [id number] [place] [address]- [address]90 24 Feb, 2013 [facility] [place] [facility] [address] [id number] [place] [address] Feb, [facility] [place] [facility] [address] [id number] [place] [address]- 8635 Feb, [facility] [place] [facility] [address] [id number] [place] [address]- 2060 Feb, [facility] [place] [facility] [address] [id number] [place] [address]- 6735 17 Feb, 2013 [facility] [place] [facility] [address] [id number] [place] [address]- 4[address] Feb, [facility] [place] [facility] [address] [id number] [place] [address] 8945 Feb, [facility] [place] [facility] [address] [id number] [place] [address] 1507 Feb, [facility] [place] [facility] [address] [id number] [place] [address] 5328 Jan, [facility] [place] [facility] [address] [id number] [place] [address] 3838 Jan, [facility] [place] [facility] [address] [id number] [place] [address] 4411 Dec, [facility] [place] [facility] [address] [id number] [place] [address] 9767 Dec, [facility] [place] [facility] [address] [id number] [place] [address] Nov, [facility] [place] [facility] [address] [id number] [place] [address] 4699 Nov, [facility] [place] [facility] [address] [id number] [place] [address]- 8746 Nov, [facility] [place] [facility] [address] [id number] [place] [address]- 4977 Nov, [facility] [place] [facility] [address] [id number] [place] [address] 7065 Nov, [facility] [place] [facility] [address] [id number] [place] [address]- 5579 Oct, [facility] [place] [facility] [address] [id number] [place] [address]- 3656 September, [facility] [place] [facility] [address] [id number] [place] [address] 3592 Aug, [facility] [place] [facility] [address] [id number] [place] [address] 1296 Jul, [facility] [address] [id number] [place] [address] 8331 Jul, [facility] [address] [id number] [place] [address]- 9067 Jul, [facility] [address] [facility] [id number] [place] [address]- 4656 Jun, [facility] [address] [id number] [place] [address]- 2489 14 Jun, 2012 [facility] [address] [id number] [place] [address]- 8055 Jun, [facility] [address] [facility] [id number] [place] [address]- 9680 Jun, [facility] [address] [facility] [id number] [place] [address]- 5624 Jun, [facility] [address] [id number] [place] [address] 4973 May, [facility] [address] [facility] [id number] [place] [address]- 6738 May, [facility] [address] [facility] [id number] [place] [address]- 1792 Apr, [facility] [address] [facility] [id number] [place] [address]- 5977 Apr, [facility] [place] [facility] [address] [id number], [place] [address] Mar, [facility] [place] [facility] [address] [id number] [place] [address]- 6193 Mar, [facility] [place] [facility] [address] [facility] [id number] [place] [address]- 9608 Mar, [facility] [place] [facility] [address] [facility] [id number] [place] [address]- 6723 Mar, [facility] [place] [facility] [address] [id number] [place] [address]- 1100 Mar, [facility] [place] [facility] [address] [id number] [place] [address]- 7470 Mar, [facility] [place] [facility] [address] [id number] [place] [address]- 8331 Mar, [facility] [place] [facility] [address] [id number] [place] [address]- 6092 Mar, [facility] [place] [facility] [address] [id number] [place] [address]- 1803 Mar, [facility] [place] [facility] [address] [id number] [place] [address]- 3823 Mar, [facility] [place] [facility] [address] [id number] [place] [address] Feb, [facility] [place] [facility] [address] [id number] [place] [address]- 9778 Feb, [facility] [place] [facility] [address] [id number] [place] [address]- 3907 Feb, [facility] [place] [facility] [address] [id number] [place] [address]- 8971 Feb, [facility] [place] [facility] [address] [facility] [id number] [place] [address] Feb, [facility] [place] [facility] [address] [id number] [place] [address]- 9877 Feb, [facility] [place] [facility] [address] [id number] [place] [address]- 6827 Jan, [facility] [place] [facility] [address] [id number] [place] [address]- 8786 Jan, [facility] [place] [facility] [address] [id number] [place] [address]- 0908 Dec, [facility] [place] [facility] [address] [id number] [place] [address]- 3173 Dec, [facility] [address] [id number] [place] [address]- 0630 Dec, [facility] [place] [facility] [address] [id number] [place] [address]- [address] Nov, [facility] [place] [facility] [address] [id number] [place] [address]- 3676 September, [facility] [place] [facility] [address] [id number] [place] [address]- 7413 September, [facility] [address] [id number] [place] [address]- 1999 September, [facility] [place] [facility] [address] [id number] [place] [address]- 3127 September, [facility] [place] [facility] [address] [id number] [place] [address]- 3999 Aug, [facility] [place] [facility] [address] [id number] [place] [address]- 2249 Aug, [facility] [place] [facility] [address] [id number] [place] [address]- 1903 Aug, [facility] [place] [facility] [address] [id number] [place] [address]- 2833 Aug, [facility] [place] [facility] [address] [id number], [place] [address]- 7419 Aug, [facility] [place] [facility] [address] [id number], [place] [address]- 7363 Jul, [facility] [place] [facility] [address] [id number] [place] [address]- 1197 Jul, [facility] [place] [facility] [address] [id number] [place] [address]- 7426 Jul, [facility] [place] [facility] [address] [id number] [place] [address]- 3566 Jun, [facility] [place] [facility] [address] [id number] [place] [address]- 1156 17 Jun, 2011 [facility] [address] [id number] [place] [address]- 9166 13 Jun, 2011 [facility] [place] [facility] [address] [id number] [place] [address] 2546 10 Jun, 2011 [facility] [place] [facility] [address] [id number] [place] [address] 2546 07 Jun, 2011 [facility] [place] [facility] [address] [id number] [place] [address] 2546 03 Jun, 2011 [facility] [place] [facility] [address] [id number] [place] [address]- 8636 03 Jun, 2011 [facility] [place] [facility] [address] [id number] [place] [address]- 3019 24 May, 2011 [facility] [place] [facility] [address] [id number] [place] [address]- 5600 May, [facility] [place] [facility] [address] [id number] [place] [address]- 0528 May, [facility] [place] [facility] [address] [id number] [place] [address]- 5344 May, [facility] [place] [facility] [address] [facility] [id number] [place] [address] Apr, [facility] [place] [facility] [address] [id number] [place] [address]- 2816 Apr, [facility] [place] [facility] [address] [id number] [place] [address] 2546 Mar, [facility] [place] [facility] [address] [id number] [place] [address] 2546 Mar, [facility] [place] [facility] [address] [id number] [place] [address]- 2546 Mar, [facility] [place] [facility] [address] [id number] [place] [address]- 3160 11 Nov, 2010 [facility] [address] [id number] [place] [address]- 6160 13 May, 2010 [facility] [place] [facility] [address] [id number] [place] [address]- 6910 23 Apr, 2010 [facility] [place] [facility] [address] [id number] [place] [address]- 5892 13 Apr, 2010 [facility] [place] [facility] [address] [id number] [place] [address]- 0751 13 Apr, 2010 [facility] [place] [facility] [address] [id number] [place] [address]- 4577 Apr, [facility] [place] [facility] [address] [id number] [place] [address]- 3549 Apr, [facility] [place] [facility] [address] [facility] [id number] [place] [address]- 4630 Mar, [facility] [place] [facility] [address] [id number] [place] [address]- 6385 08 Mar, 2010 [facility] [place] [facility] [address] [id number] [place] [address]- 7944 Feb, [facility] [place] [facility] [address] [id number], [place] [address]- 3411 14 Aug, 2009 [facility] [place] [facility] [address] [id number], [place] [address]- 5677 Jul, [facility] [place] [facility] [address] [id number], [place] [address]- 5283 17 Jun, 2009 [facility] [place] [facility] [address] [id number] [place] [address]- 4677 30 Apr, 2009 [facility] [place] [facility] [address] [id number], [place] [address]- 3374 Apr, [facility] [place] [facility] [address] [id number] [place] [address]- 2200 Mar, [facility] [place] [facility] [address] [facility] [id number] [place] [address]- 2546 Mar, [facility] [place] [address] [facility] [id number], [place] [address]- 2546 Feb, [facility] [place] [address] [facility] [id number], [place] [address]- 2546 Dec, [facility] [place] [address] [facility] [id number], [place] [address]- 2546 Oct, IMMUNIZATIONS No Known Immunizations SOCIAL HISTORY Never Assessed REASON FOR VISIT Controlled Medication PLAN OF CARE VITAL SIGNS MEDICATIONS Medication [...] Hospitalization History surgery 2013 Hospitalization History A Fib--[facility] 03/08/2016 Hospitalization History acute chest pain, hypertensive urgency, paroxsysmal htn-[facility] 05/10/16
[2018-09-17 12:08] LABS: BASOPHILS # (AUTO) 0.1 10^3/uL (0.0-0.1); BASOPHILS % (AUTO) 1 % (0-10); EOSINOPHILS # (AUTO) 0.3 10^3/uL (0.0-0.3); EOSINOPHILS % (AUTO) 3 % (0-10); HEMATOCRIT 39 % (35-52); HEMOGLOBIN 12.9 G/DL (11.5-16.0); LYMPHOCYTES # (AUTO) 2.6 X 10^3 (1.0-4.0); LYMPHOCYTES % (AUTO) 32 % (12-44); MEAN CORPUSCULAR HEMOGLOBIN 29 PG (25-34); MEAN CORPUSCULAR HGB CONC 33 G/DL (32-36); MEAN CORPUSCULAR VOLUME 87 FL (80-99); MEAN PLATELET VOLUME 10.2 FL (7.4-10.4); MONOCYTES # (AUTO) 0.5 X 10^3 (0.0-1.0); MONOCYTES % (AUTO) 6 % (0-12); NEUTROPHILS # (AUTO) 4.8 X 10^3 (1.8-7.8); NEUTROPHILS % (AUTO) 58 % (42-75); PLATELET COUNT 244 10^3/uL (130-400); RED CELL DISTRIBUTION WIDTH 13.8 % (10.0-14.5); WHITE BLOOD COUNT 8.2 10^3/uL (4.3-11.0)
--- NOTE | 2018-09-17 12:14 | Diagnostic Imaging Report ---
Indication: Dyspnea for 2 days. Comparison: 05/16/2016. Discussion: Single portable upright view of the chest was obtained. Stable normal heart size. Implantable loop recorder is noted. No focal consolidation, pleural fluid, or pneumothorax. No osseous abnormality. Impression: 1. Negative chest. Dictated by: Dictated on workstation # [id number]
--- OUTSIDE RECORDS SUMMARY | 2018-09-17 12:14 | XMS REPORT | Continuity of Care Document ---
Author Organization Unknown Address Unknown Allergies Active Description Code Type Severity Reaction Onset Reported/Identified Relationship to Patient Clinical Status Yes amitriptyline Drug Allergy 04/20/2010 Yes amitriptyline Drug Allergy N/ A N/A 04/20/2010 Yes amitriptyline [id number] Drug Allergy Unknown CAUSED SLURRED 08/15/2015 Medications There is no data. Problems Date Dx Coded Attending Type Code Diagnosis Diagnosed By 08/14/2008 KELY THEODORE MD 465.9 UPPER RESPIRATORY INFECTION 08/14/2008 KELY THEODORE MD 465.9 UPPER RESPIRATORY INFECTION 08/14/2008 465.9 UPPER RESPIRATORY INFECTION 08/14/2008 KIRK YANEZ DO K 465.9 UPPER RESPIRATORY INFECTION 08/14/2008 JEREMIAH CANSECO APRN 465.9 UPPER RESPIRATORY INFECTION 08/14/2008 465.9 UPPER RESPIRATORY INFECTION 08/14/2008 465.9 UPPER RESPIRATORY INFECTION 08/14/2008 465.9 UPPER RESPIRATORY INFECTION 08/14/2008 KELY THEODORE MD 465.9 UPPER RESPIRATORY INFECTION 08/14/2008 PATRICIA LYNCH APRN 465.9 UPPER RESPIRATORY INFECTION 08/14/2008 YANEZ DO KIRK K 465.9 UPPER RESPIRATORY INFECTION 08/14/2008 YANEZ DO KIRK K 465.9 UPPER RESPIRATORY INFECTION 08/14/2008 YANEZ DO KIRK K 465.9 UPPER RESPIRATORY INFECTION 08/14/2008 JEREMIAH CANSECO APRN 465.9 UPPER RESPIRATORY INFECTION 08/14/2008 YANEZ DO, KIRK K 465.9 UPPER RESPIRATORY INFECTION 08/14/2008 YANEZ DO KIRK K 465.9 UPPER RESPIRATORY INFECTION 08/14/2008 DESIREE SPENCE MD 465.9 UPPER RESPIRATORY INFECTION 08/14/2008 DESIREE SPENCE MD 465.9 UPPER RESPIRATORY INFECTION 08/14/2008 DESIREE SPENCE MD 465.9 UPPER RESPIRATORY INFECTION 08/14/2008 CHARISSA RUANO APRN 465.9 UPPER RESPIRATORY INFECTION 08/14/2008 [employer] SURGEON, CHARISSA R 465.9 UPPER RESPIRATORY INFECTION 08/14/2008 [employer] SURGEON, CHARISSA R 465.9 UPPER RESPIRATORY INFECTION 08/14/2008 YANEZ DO, KIRK K 465.9 UPPER RESPIRATORY INFECTION 08/14/2008 AL[employer] AND [employer] SURGEON, CHARISSA R 465.9 UPPER RESPIRATORY INFECTION 08/14/2008 YANEZ DO, KIRK K 465.9 UPPER RESPIRATORY INFECTION 08/14/2008 YANEZ DO, KIRK K 465.9 UPPER RESPIRATORY INFECTION 08/14/2008 AL[employer] SURGEON, CHARISSA R 465.9 UPPER RESPIRATORY INFECTION 08/14/2008 DANIELLA FOOT AND ANKLE SURGEON, [place] A 465.9 UPPER RESPIRATORY INFECTION 08/14/2008 DANIELLA FOOT AND ANKLE SURGEON, [place] A 465.9 UPPER RESPIRATORY INFECTION 08/14/2008 JORDY CHRISTIAN, DESIREE N 465.9 UPPER RESPIRATORY INFECTION 08/14/2008 JORDY CHRISTIAN, DESIREE N 465.9 UPPER RESPIRATORY INFECTION 08/14/2008 JORDY CHRISTIAN, DESIREE N 465.9 UPPER RESPIRATORY INFECTION 08/14/2008 JORDY CHRISTIAN, DESIREE N 465.9 UPPER RESPIRATORY INFECTION 08/14/2008 JORDY CHRISTIAN, DESIREE N 465.9 UPPER RESPIRATORY INFECTION 08/14/2008 JORDY CHRISTIAN, DESIREE N 465.9 UPPER RESPIRATORY INFECTION 08/14/2008 JORDY CHRISTIAN, DESIREE N 465.9 UPPER RESPIRATORY INFECTION 08/14/2008 JORDY CHRISTIAN, DESIREE N 465.9 UPPER RESPIRATORY INFECTION 08/14/2008 JORDY CHRISTIAN, DESIREE N 465.9 UPPER RESPIRATORY INFECTION 08/14/2008 JORDY CHRISTIAN, DESIREE N 465.9 UPPER RESPIRATORY INFECTION 10/23/2008 KELY THEODORE MD 401.1 Essential Hypertension Benign 10/23/2008 KELY THEODORE MD 401.1 Essential Hypertension Benign 10/23/2008 401.1 Essential Hypertension Benign 10/23/2008 TAHMINA YANEZ DOA K 401.1 Essential Hypertension Benign 10/23/2008 JEREMIAH CANSECO APRN 401.1 Essential Hypertension Benign 10/23/2008 401.1 Essential Hypertension Benign 10/23/2008 401.1 Essential Hypertension Benign 10/23/2008 401.1 Essential Hypertension Benign 10/23/2008 KELY THEODORE MD 401.1 Essential Hypertension Benign 10/23/2008 PATRICIA LYNCH APRN 401.1 Essential Hypertension Benign 10/23/2008 YANEZ DO, KIRK K 401.1 Essential Hypertension Benign 10/23/2008 YANEZ DO, KIRK K 401.1 Essential Hypertension Benign 10/23/2008 YANEZ DO, KIRK K 401.1 Essential Hypertension Benign 10/23/2008 CANSECO BALBIRJEREMIAH 401.1 Essential Hypertension Benign 10/23/2008 YANEZ DO, KIRK K 401.1 Essential Hypertension Benign 10/23/2008 YANEZ DO, KIRK K 401.1 Essential Hypertension Benign 10/23/2008 DESIREE SPENCE MD N 401.1 Essential Hypertension Benign 10/23/2008 DESIREE SPENCE MD N 401.1 Essential Hypertension Benign 10/23/2008 DESIREE SPENCE MD N 401.1 Essential Hypertension Benign 10/23/2008 [employer] SURGEON, CHARISSA R 401.1 Essential Hypertension Benign 10/23/2008 ALDEN MCGREGOR CHARISSA R 401.1 Essential Hypertension Benign 10/23/2008 ALDEN MCGREGOR CHARISSA R 401.1 Essential Hypertension Benign 10/23/2008 YANEZ DO, KIRK K 401.1 Essential Hypertension Benign 10/23/2008 ALDEN MCGREGOR CHARISSA R 401.1 Essential Hypertension Benign 10/23/2008 YANEZ DO, KIRK K 401.1 Essential Hypertension Benign 10/23/2008 YANEZ DO, KIRK K 401.1 Essential Hypertension Benign 10/23/2008 ALDEN MCGREGOR CHARISSA R 401.1 Essential Hypertension Benign 10/23/2008 DANIELLA MCGREGOR, [place] A 401.1 Essential Hypertension Benign 10/23/2008 DANIELLA MCGREGOR [place] A 401.1 Essential Hypertension Benign 10/23/2008 DESIREE SPENCE MD N 401.1 Essential Hypertension Benign 10/23/2008 DESIREE SPENCE MD N 401.1 Essential Hypertension Benign 10/23/2008 DESIREE SPENCE MD N 401.1 Essential Hypertension Benign 10/23/2008 DESIREE SPENCE MD N 401.1 Essential Hypertension Benign 10/23/2008 DESIREE SPENCE MD N 401.1 Essential Hypertension Benign 10/23/2008 DESIREE SPENCE MD N 401.1 Essential Hypertension Benign 10/23/2008 DESIREE SPENCE MD N 401.1 Essential Hypertension Benign 10/23/2008 DESIREE SPENEC MD N 401.1 Essential Hypertension Benign 10/23/2008 DESIREE SPENCE MD N 401.1 Essential Hypertension Benign 10/23/2008 DESIREE SPENCE MD 401.1 Essential Hypertension Benign 12/09/2008 KELY THEODORE MD 780.4 dizziness 12/09/2008 KELY THEODORE MD 780.4 dizziness 12/09/2008 780.4 dizziness 12/09/2008 YANEZ DO, KIRK K 780.4 dizziness 12/09/2008 HARLEEN MCGREGOR JEREMIAH SUAREZH 780.4 dizziness 12/09/2008 780.4 dizziness 12/09/2008 780.4 dizziness 12/09/2008 780.4 dizziness 12/09/2008 KELY THEODORE MD 780.4 dizziness 12/09/2008 PATRICIA LYNCH APRN 780.4 dizziness 12/09/2008 YANEZ DO, KIRK K 780.4 dizziness 12/09/2008 YANEZ DO, KIRK K 780.4 dizziness 12/09/2008 YANEZ DO, KIRK K 780.4 dizziness 12/09/2008 HARLEEN FOOT AND ANKLE SURGEONJEREMIAH Leonard 780.4 dizziness 12/09/2008 YANEZ DO, KIRK K 780.4 dizziness 12/09/2008 YANEZ DO, KIRK K 780.4 dizziness 12/09/2008 DESIREE SPENCE MD 780.4 dizziness 12/09/2008 DESIREE SPENCE MD 780.4 dizziness 12/09/2008 DESIREE SPENCE MD 780.4 dizziness 12/09/2008 [employer] SURGEON, CHARISSA R 780.4 dizziness 12/09/2008 ALDEN [employer] AND ANKLE SURGEON, CHARISSA R 780.4 dizziness 12/09/2008 AL[employer] AND ANK[employer] SURGEON, CHARISSA R 780.4 dizziness 12/09/2008 YANEZ DO, KIRK K 780.4 dizziness 12/09/2008 ALDEN [employer] AND ANKLE SURGEON, CHARISSA R 780.4 dizziness 12/09/2008 YANEZ DO, KIRK K 780.4 dizziness 12/09/2008 YANEZ DO, KIRK K 780.4 dizziness 12/09/2008 AL[employer] AND [employer] SURGEON, CHARISSA R 780.4 dizziness 12/09/2008 [place] BREWER APRN A 780.4 dizziness 12/09/2008 DANIELLA MCGREGOR [place] A 780.4 dizziness 12/09/2008 DESIREE SPENCE MD 780.4 dizziness 12/09/2008 DESIREE SPENCE MD 780.4 dizziness 12/09/2008 DESIREE SPENCE MD 780.4 dizziness 12/09/2008 DESIREE SPENCE MD 780.4 dizziness 12/09/2008 DESIREE SPENCE MD 780.4 dizziness 12/09/2008 DESIREE SPENCE MD 780.4 dizziness 12/09/2008 DESIREE SPENCE MD 780.4 dizziness 12/09/2008 DESIREE SPENCE MD 780.4 dizziness 12/09/2008 DESIREE SPENCE MD 780.4 dizziness 12/09/2008 DESIREE SPENCE MD 780.4 dizziness 12/23/2008 KELY THEODORE MD 780.79 feeling weak 12/23/2008 KELY THEODORE MD 780.79 feeling weak 12/23/2008 780.79 feeling weak 12/23/2008 YANEZ , KIRK K 780.79 feeling weak 12/23/2008 JEREMIAH CANSECO APRN 780.79 feeling weak 12/23/2008 780.79 feeling weak 12/23/2008 780.79 feeling weak 12/23/2008 780.79 feeling weak 12/23/2008 KELY THEODORE MD 780.79 feeling weak 12/23/2008 PATRICIA LYNCH APRN 780.79 feeling weak 12/23/2008 YANEZ DO, KIRK K 780.79 feeling weak 12/23/2008 YANEZ DO, KIRK K 780.79 feeling weak 12/23/2008 YANEZ DO, KIRK K 780.79 feeling weak 12/23/2008 JEREMIAH CANSECO APRN 780.79 feeling weak 12/23/2008 YANEZ DO, KIRK K 780.79 feeling weak 12/23/2008 YANEZ DO, KIRK K 780.79 feeling weak 12/23/2008 DESIREE SPENCE MD 780.79 feeling weak 12/23/2008 DESIREE SPENCE MD 780.79 feeling weak 12/23/2008 DESIREE SPENCE MD 780.79 feeling weak 12/23/2008 ALDEN MCGREGOR CHARISSA R 780.79 feeling weak 12/23/2008 ALDEN MCGREGOR CHARISSA R 780.79 feeling weak 12/23/2008 ALDEN MCGREGOR CHARISSA R 780.79 feeling weak 12/23/2008 YANEZ DO KIRK K 780.79 feeling weak 12/23/2008 AL[employer] SURGEON, CHARISSA R 780.79 feeling weak 12/23/2008 YANEZ DO, KIRK K 780.79 feeling weak 12/23/2008 YANEZ DO, KIRK K 780.79 feeling weak 12/23/2008 AL[employer] SURGEON, CHARISSA R 780.79 feeling weak 12/23/2008 DANIELLA FOOT AND ANKLE SURGEON, [place] A 780.79 feeling weak 12/23/2008 DANIELLA FOOT AND ANKLE SURGEON, [place] A 780.79 feeling weak 12/23/2008 DESIREE SPENCE MD N 780.79 feeling weak 12/23/2008 DESIREE SPENEC MD N 780.79 feeling weak 12/23/2008 DESIREE SPENCE MD N 780.79 feeling weak 12/23/2008 DESIREE SPENCE MD N 780.79 feeling weak 12/23/2008 DESIREE SPENCE MD N 780.79 feeling weak 12/23/2008 DESIREE SPENCE MD N 780.79 feeling weak 12/23/2008 DESIREE SPENCE MD N 780.79 feeling weak 12/23/2008 DESIREE SPENCE MD N 780.79 feeling weak 12/23/2008 DESIREE SPENCE MD N 780.79 feeling weak 12/23/2008 DESIREE SPENCE MD N 780.79 feeling weak 01/27/2009 KELY THEODORE MD 706.1 ACNE 01/27/2009 KELY THEODORE MD 706.1 ACNE 01/27/2009 706.1 ACNE 01/27/2009 KIRK YANEZ DO 706.1 ACNE 01/27/2009 JEREMIAH CANSECO APRN 706.1 ACNE 01/27/2009 706.1 ACNE 01/27/2009 706.1 ACNE 01/27/2009 706.1 ACNE 01/27/2009 KELY THEODORE MD 706.1 ACNE 01/27/2009 PATRICIA LYNCH APRN 706.1 ACNE 01/27/2009 YANEZ DOKIRK 706.1 ACNE 01/27/2009 YANEZ DOKIRK K 706.1 ACNE 01/27/2009 YANEZ KIRK SPIVEY 706.1 ACNE 01/27/2009 JEREMIAH CANSECO APRN 706.1 ACNE 01/27/2009 YANEZ DOKIRK 706.1 ACNE 01/27/2009 TAHMINA YANEZ DOA K 706.1 ACNE 01/27/2009 JORDY CHRISTIAN, DESIREE N 706.1 ACNE 01/27/2009 JORDY CHRISTIAN, DESIREE N 706.1 ACNE 01/27/2009 JORDY CHRISTIAN, DESIREE N 706.1 ACNE 01/27/2009 [employer] SURGEON, CHARISSA R 706.1 ACNE 01/27/2009 ALDEN [employer] AND ANKLE SURGEON, CHARISSA R 706.1 ACNE 01/27/2009 ALDEN [employer] AND ANKLE SURGEON, CHARISSA R 706.1 ACNE 01/27/2009 YANEZ DO, KIRK K 706.1 ACNE 01/27/2009 ALDEN [employer] AND ANKLE SURGEON, CHARISSA R 706.1 ACNE 01/27/2009 YANEZ DO, KIRK K 706.1 ACNE 01/27/2009 YANEZ DO, KIRK K 706.1 ACNE 01/27/2009 AL[employer] AND [employer]KLE SURGEON, CHARISAS R 706.1 ACNE 01/27/2009 DANIELLA APRN, [place] A 706.1 ACNE 01/27/2009 DANIELLA MCGREGOR [place] A 706.1 ACNE 01/27/2009 JORDY CHRISTIAN, DESIREE N 706.1 ACNE 01/27/2009 JORDY CHRISTIAN, DESIREE N 706.1 ACNE 01/27/2009 JORDY CHRISTIAN, DESIREE N 706.1 ACNE 01/27/2009 JORDY CHRISTIAN, DESIERE N 706.1 ACNE 01/27/2009 JORDY CHRISTIAN, DESIREE N 706.1 ACNE 01/27/2009 JORDY CHRISTIAN, DESIREE N 706.1 ACNE 01/27/2009 JORDY CHRSITIAN, DESIREE N 706.1 ACNE 01/27/2009 JORDY CHRISTIAN, DESIREE N 706.1 ACNE 01/27/2009 JORDY CHRISTIAN, DESIREE N 706.1 ACNE 01/27/2009 DESIREE SPENCE MD N 706.1 ACNE 02/10/2009 KELY THEODORE MD 296.9 MOOD DIS NOS 02/10/2009 KELY THEODORE MD 296.9 MOOD DIS NOS 02/10/2009 296.9 MOOD DIS NOS 02/10/2009 KIRK YANEZ DO 296.9 MOOD DIS NOS 02/10/2009 JEREMIAH CANSECO APRN 296.9 MOOD DIS NOS 02/10/2009 296.9 MOOD DIS NOS 02/10/2009 296.9 MOOD DIS NOS 02/10/2009 296.9 MOOD DIS NOS 02/10/2009 KELY THEODORE MD 296.9 MOOD DIS NOS 02/10/2009 PATRICIA LYNCH APRN 296.9 MOOD DIS NOS 02/10/2009 YANEZ DO, KIRK K 296.9 MOOD DIS NOS 02/10/2009 YANEZ DO, KIRK K 296.9 MOOD DIS NOS 02/10/2009 YANEZ DO, KIRK K 296.9 MOOD DIS NOS 02/10/2009 HARLEEN MCGREGOR JEREMIAH BAUER 296.9 MOOD DIS NOS 02/10/2009 YANEZ DO, KIRK K 296.9 MOOD DIS NOS 02/10/2009 YANEZ DO, KIRK K 296.9 MOOD DIS NOS 02/10/2009 DESIREE SPENCE MD N 296.9 MOOD DIS NOS 02/10/2009 DESIREE SPENCE MD 296.9 MOOD DIS NOS 02/10/2009 DESIREE SPENCE MD N 296.9 MOOD DIS NOS 02/10/2009 [employer] SURGEON, CHARISSA R 296.9 MOOD DIS NOS 02/10/2009 ALDEN FO[employer] AND ANKLE SURGEON, CHARISSA R 296.9 MOOD DIS NOS 02/10/2009 ALDEN [employer] AND ANKLE SURGEON, CHARISSA R 296.9 MOOD DIS NOS 02/10/2009 YANEZ DO, KIRK K 296.9 MOOD DIS NOS 02/10/2009 ALDEN FOOT AND ANKLE SURGEON, CHARISSA R 296.9 MOOD DIS NOS 02/10/2009 YANEZ DO, KIRK K 296.9 MOOD DIS NOS 02/10/2009 YANEZ DO, KIRK K 296.9 MOOD DIS NOS 02/10/2009 ALDEN [employer] ANKLE SURGEON, CHARISSA R 296.9 MOOD DIS NOS 02/10/2009 DANIELLA FOOT AND ANKLE SURGEON, [place] A 296.9 MOOD DIS NOS 02/10/2009 DANIELLA MCGREGOR, [place] A 296.9 MOOD DIS NOS 02/10/2009 DESIREE SPENCE MD N 296.9 MOOD DIS NOS 02/10/2009 DESIREE SPENCE MD N 296.9 MOOD DIS NOS 02/10/2009 DESIREE SPENCE MD N 296.9 MOOD DIS NOS 02/10/2009 DESIREE SPENCE MD N 296.9 MOOD DIS NOS 02/10/2009 JORDY MD, DESIREE N 296.9 MOOD DIS NOS 02/10/2009 DESIREE SPENCE MD N 296.9 MOOD DIS NOS 02/10/2009 DESIREE SPENCE MD N 296.9 MOOD DIS NOS 02/10/2009 DESIREE SPENCE MD N 296.9 MOOD DIS NOS 02/10/2009 DESIREE SPENCE MD N 296.9 MOOD DIS NOS 02/10/2009 DESIREE SPENCE MD N 296.9 MOOD DIS NOS 02/12/2009 KELY THEODORE MD 268.9 VITAMIN D DEFICIENCY 02/12/2009 KELY THEODORE MD 268.9 VITAMIN D DEFICIENCY 02/12/2009 268.9 VITAMIN D DEFICIENCY 02/12/2009 YANEZ DO, KIRK K 268.9 VITAMIN D DEFICIENCY 02/12/2009 JEREMIAH CANSECO APRN 268.9 VITAMIN D DEFICIENCY 02/12/2009 268.9 VITAMIN D DEFICIENCY 02/12/2009 268.9 VITAMIN D DEFICIENCY 02/12/2009 268.9 VITAMIN D DEFICIENCY 02/12/2009 KELY THEODORE MD 268.9 VITAMIN D DEFICIENCY 02/12/2009 PATRICIA LYNCH APRN 268.9 VITAMIN D DEFICIENCY 02/12/2009 YANEZ DO, KIRK K 268.9 VITAMIN D DEFICIENCY 02/12/2009 YANEZ DO, KIRK K 268.9 VITAMIN D DEFICIENCY 02/12/2009 YANEZ DO, KIRK K 268.9 VITAMIN D DEFICIENCY 02/12/2009 JEREMIAH CANSECO APRN 268.9 VITAMIN D DEFICIENCY 02/12/2009 YANEZ DO, KIRK K 268.9 VITAMIN D DEFICIENCY 02/12/2009 YANEZ DO, KIRK K 268.9 VITAMIN D DEFICIENCY 02/12/2009 DESIREE SPENCE MD N 268.9 VITAMIN D DEFICIENCY 02/12/2009 DESIREE SPENCE MD N 268.9 VITAMIN D DEFICIENCY 02/12/2009 DESIREE SPENCE MD N 268.9 VITAMIN D DEFICIENCY 02/12/2009 CHARISSA RUANO APRN R 268.9 VITAMIN D DEFICIENCY 02/12/2009 CHARISSA RUANO APRN R 268.9 VITAMIN D DEFICIENCY 02/12/2009 CHARISSA RUANO APRN R 268.9 VITAMIN D DEFICIENCY 02/12/2009 YANEZ DO, KIRK K 268.9 VITAMIN D DEFICIENCY 02/12/2009 CHARISSA RUANO APRN R 268.9 VITAMIN D DEFICIENCY 02/12/2009 YANEZ DO, KIRK K 268.9 VITAMIN D DEFICIENCY 02/12/2009 YANEZ DO, KIRK K 268.9 VITAMIN D DEFICIENCY 02/12/2009 ALDEN MCGREGOR CHARISSA R 268.9 VITAMIN D DEFICIENCY 02/12/2009 DANIELLA FOOT AND ANKLE SURGEON, [place] A 268.9 VITAMIN D DEFICIENCY 02/12/2009 DANIELLA FOOT AND ANKLE SURGEON, [place] A 268.9 VITAMIN D DEFICIENCY 02/12/2009 DESIREE SPENCE MD N 268.9 VITAMIN D DEFICIENCY 02/12/2009 DESIREE SPENCE MD N 268.9 VITAMIN D DEFICIENCY 02/12/2009 DESIREE SPENCE MD N 268.9 VITAMIN D DEFICIENCY 02/12/2009 DESIREE SPENCE MD N 268.9 VITAMIN D DEFICIENCY 02/12/2009 DESIREE SPENCE MD N 268.9 VITAMIN D DEFICIENCY 02/12/2009 DESIREE SPENCE MD N 268.9 VITAMIN D DEFICIENCY 02/12/2009 DESIREE SPENCE MD N 268.9 VITAMIN D DEFICIENCY 02/12/2009 DESIREE SPENCE MD N 268.9 VITAMIN D DEFICIENCY 02/12/2009 DESIREE SPENCE MD N 268.9 VITAMIN D DEFICIENCY 02/12/2009 DESIREE SPENCE MD N 268.9 VITAMIN D DEFICIENCY 02/28/2009 KELY THEODORE MD 729.5 Pain In Limb 02/28/2009 KELY THEODORE MD 729.5 Pain In Limb 02/28/2009 729.5 Pain In Limb 02/28/2009 YANEZ DO, KIRK K 729.5 Pain In Limb 02/28/2009 JEREMIAH CANSECO APRN 729.5 Pain In Limb 02/28/2009 729.5 Pain In Limb 02/28/2009 729.5 Pain In Limb 02/28/2009 729.5 Pain In Limb 02/28/2009 KELY THEODORE MD 729.5 Pain In Limb 02/28/2009 PATRICIA LYNCH APRN 729.5 Pain In Limb 02/28/2009 YANEZ DO, KIRK K 729.5 Pain In Limb 02/28/2009 YANEZ DO, KIRK K 729.5 Pain In Limb 02/28/2009 YANEZ DO, KIRK K 729.5 Pain In Limb 02/28/2009 JEREMIAH CANSECO APRN LIZETTE 729.5 Pain In Limb 02/28/2009 YANEZ DO, KIRK K 729.5 Pain In Limb 02/28/2009 YANEZ DO, IKRK K 729.5 Pain In Limb 02/28/2009 DESIREE SPENCE MD N 729.5 Pain In Limb 02/28/2009 DESIREE SPENCE MD N 729.5 Pain In Limb 02/28/2009 DESIREE SPENCE MD N 729.5 Pain In Limb 02/28/2009 [employer] SURGEON, CHARISSA R 729.5 Pain In Limb 02/28/2009 ALDEN FOOT AND ANKLE SURGEON, CHARISSA R 729.5 Pain In Limb 02/28/2009 ALDEN FOOT AND ANKLE SURGEON, CHARISSA R 729.5 Pain In Limb 02/28/2009 YANEZ DO, KIRK K 729.5 Pain In Limb 02/28/2009 ALDEN [employer] AND ANKLE SURGEON, CHARISSA R 729.5 Pain In Limb 02/28/2009 YANEZ DO, KIRK K 729.5 Pain In Limb 02/28/2009 YANEZ DO, KIRK K 729.5 Pain In Limb 02/28/2009 [employer] SURGEON, CHARISSA R 729.5 Pain In Limb 02/28/2009 DANIELLAMEGAN PARIKH APRNIDI A 729.5 Pain In Limb 02/28/2009 DANIELLA MCGREGOR [place] A 729.5 Pain In Limb 02/28/2009 DESIREE SPENCE MD N 729.5 Pain In Limb 02/28/2009 DESIREE SPENCE MD N 729.5 Pain In Limb 02/28/2009 DESIREE SPENCE MD N 729.5 Pain In Limb 02/28/2009 DESIREE SPENCE MD N 729.5 Pain In Limb 02/28/2009 DESIREE SPENCE MD N 729.5 Pain In Limb 02/28/2009 DESIREE SPENCE MD N 729.5 Pain In Limb 02/28/2009 DESIREE SPENCE MD N 729.5 Pain In Limb 02/28/2009 DESIREE SPENCE MD N 729.5 Pain In Limb 02/28/2009 DESIREE SPENCE MD N 729.5 Pain In Limb 02/28/2009 DESIREE SPENCE MD N 729.5 Pain In Limb 03/14/2009 KELY THEODORE MD 716.90 Arthritis 03/14/2009 KELY THEODORE MD 716.90 Arthritis 03/14/2009 716.90 Arthritis 03/14/2009 YANEZ DO KIRK K 716.90 Arthritis 03/14/2009 HARLEEN MCGREGOR JEREMIAH SUAREZH 716.90 Arthritis 03/14/2009 716.90 Arthritis 03/14/2009 716.90 Arthritis 03/14/2009 716.90 Arthritis 03/14/2009 KELY THEODORE MD 716.90 Arthritis 03/14/2009 PATRICIA LYNCH APRN 716.90 Arthritis 03/14/2009 YANEZ DO, KIRK K 716.90 Arthritis 03/14/2009 YANEZ DO, KIRK K 716.90 Arthritis 03/14/2009 YANEZ DO, KIRK K 716.90 Arthritis 03/14/2009 HARLEEN MCGREGOR JEREMIAH BAUER 716.90 Arthritis 03/14/2009 YANEZ DO KIRK K 716.90 Arthritis 03/14/2009 YANEZ DO KIRK K 716.90 Arthritis 03/14/2009 DESIREE SPENCE MD N 716.90 Arthritis 03/14/2009 DESIREE SPENCE MD N 716.90 Arthritis 03/14/2009 DESIREE SPENCE MD N 716.90 Arthritis 03/14/2009 ALDEN MCGREGOR, CHARISSA R 716.90 Arthritis 03/14/2009 ALDEN MCGREGOR, CHARISSA R 716.90 Arthritis 03/14/2009 ALDEN MCGREGOR, CHARISSA R 716.90 Arthritis 03/14/2009 YANEZ DO KIRK K 716.90 Arthritis 03/14/2009 ALDEN [employer]KLE SURGEON, CHARISSA R 716.90 Arthritis 03/14/2009 YANEZ DO, KIRK K 716.90 Arthritis 03/14/2009 YANEZ DO, KIRK K 716.90 Arthritis 03/14/2009 ALDEN MCGREGOR, CHARISSA R 716.90 Arthritis 03/14/2009 DANIELLA MCGREGOR [place] A 716.90 Arthritis 03/14/2009 DANIELLA MCGREGOR [place] A 716.90 Arthritis 03/14/2009 DESIREE SPENCE MD N 716.90 Arthritis 03/14/2009 DESIREE SPENCE MD 716.90 Arthritis 03/14/2009 JORDY CHRISTIAN, DESIREE N 716.90 Arthritis 03/14/2009 JORDY CHRISTIAN, DESIREE N 716.90 Arthritis 03/14/2009 JORDY CHRISTIAN, DESIREE N 716.90 Arthritis 03/14/2009 JORDY CHRISTIAN, DESIREE N 716.90 Arthritis 03/14/2009 JORDY CHRISTIAN, DESIREE N 716.90 Arthritis 03/14/2009 JORDY CHRISTIAN, DESIREE N 716.90 Arthritis 03/14/2009 JORDY CHRISTIAN, DESIREE N 716.90 Arthritis 03/14/2009 JORDY CHRISTIAN, DESIREE N 716.90 Arthritis 03/31/2009 KELY THEODORE MD 466.0 ACUTE BRONCHITIS 03/31/2009 KELY THEODORE MD 466.0 ACUTE BRONCHITIS 03/31/2009 466.0 ACUTE BRONCHITIS 03/31/2009 YANEZ DO, KIRK K 466.0 ACUTE BRONCHITIS 03/31/2009 JEREMIAH CANSECO APRN 466.0 ACUTE BRONCHITIS 03/31/2009 466.0 ACUTE BRONCHITIS 03/31/2009 466.0 ACUTE BRONCHITIS 03/31/2009 466.0 ACUTE BRONCHITIS 03/31/2009 KELY THEODORE MD 466.0 ACUTE BRONCHITIS 03/31/2009 PATRICIA LYNCH APRN 466.0 ACUTE BRONCHITIS 03/31/2009 YANEZ DO, KIRK K 466.0 ACUTE BRONCHITIS 03/31/2009 YANEZ DO, KIRK K 466.0 ACUTE BRONCHITIS 03/31/2009 YANEZ DO, KIRK K 466.0 ACUTE BRONCHITIS 03/31/2009 JEREMIAH CANSECO APRN 466.0 ACUTE BRONCHITIS 03/31/2009 YANEZ DO, KIRK K 466.0 ACUTE BRONCHITIS 03/31/2009 YANEZ DO, KIRK K 466.0 ACUTE BRONCHITIS 03/31/2009 JORDY CHRISTIAN, DESIREE N 466.0 ACUTE BRONCHITIS 03/31/2009 DESIREE SPENCE MD N 466.0 ACUTE BRONCHITIS 03/31/2009 DESIREE SPENCE MD N 466.0 ACUTE BRONCHITIS 03/31/2009 [employer] SURGEON, CHARISSA R 466.0 ACUTE BRONCHITIS 03/31/2009 ALDEN [employer] ANK[employer] SURGEON, CHARISSA R 466.0 ACUTE BRONCHITIS 03/31/2009 ALDEN SINHAN, CHARISSA R 466.0 ACUTE BRONCHITIS 03/31/2009 YANEZ DO, KIRK K 466.0 ACUTE BRONCHITIS 03/31/2009 ALDEN [employer] SURGEON, CHARISSA R 466.0 ACUTE BRONCHITIS 03/31/2009 YANEZ DOTAHMINAA K 466.0 ACUTE BRONCHITIS 03/31/2009 YANEZ DO, KIRK K 466.0 ACUTE BRONCHITIS 03/31/2009 ALEDN FOOT AND ANKLE SURGEON, CHARISSA R 466.0 ACUTE BRONCHITIS 03/31/2009 DANIELLA FOOT AND ANKLE SURGEON, SANFORD A 466.0 ACUTE BRONCHITIS 03/31/2009 DANIELLA FOOT AND ANKLE SURGEON, [place] A 466.0 ACUTE BRONCHITIS 03/31/2009 JORDY CHRISTIAN, DESIREE N 466.0 ACUTE BRONCHITIS 03/31/2009 JORDY CHRISTIAN, DESIREE N 466.0 ACUTE BRONCHITIS 03/31/2009 JORDY CHRISTIAN, DESIREE N 466.0 ACUTE BRONCHITIS 03/31/2009 JORDY CHRISTIAN, DESIREE N 466.0 ACUTE BRONCHITIS 03/31/2009 JORDY CHRISTIAN, DESIREE N 466.0 ACUTE BRONCHITIS 03/31/2009 JORDY CHRISTIAN, DESIREE N 466.0 ACUTE BRONCHITIS 03/31/2009 JORDY CHRISTIAN, DESIREE N 466.0 ACUTE BRONCHITIS 03/31/2009 JORDY CHRISTIAN, DESIREE N 466.0 ACUTE BRONCHITIS 03/31/2009 JORDY CHRISTIAN, DESIREE N 466.0 ACUTE BRONCHITIS 03/31/2009 JORDY CHRISTIAN, DESIREE N 466.0 ACUTE BRONCHITIS 04/14/2009 KELY THEODORE MD 844.9 KNEE SPRAIN 04/14/2009 KELY THEODORE MD 844.9 KNEE SPRAIN 04/14/2009 844.9 KNEE SPRAIN 04/14/2009 KIRK YANEZ DO K 844.9 KNEE SPRAIN 04/14/2009 JEREMIAH CANSECO APRN 844.9 KNEE SPRAIN 04/14/2009 844.9 KNEE SPRAIN 04/14/2009 844.9 KNEE SPRAIN 04/14/2009 844.9 KNEE SPRAIN 04/14/2009 KELY THEODORE MD 844.9 KNEE SPRAIN 04/14/2009 PATRICIA LYNCH APRN 844.9 KNEE SPRAIN 04/14/2009 TAHMINA YANEZ DOA K 844.9 KNEE SPRAIN 04/14/2009 KIRK YANEZ DO K 844.9 KNEE SPRAIN 04/14/2009 YANEZ TAHMINA SPIVEYA K 844.9 KNEE SPRAIN 04/14/2009 CANSECO BALBIR JEREMIAH BAUER 844.9 KNEE SPRAIN 04/14/2009 YANEZ DO, KIRK K 844.9 KNEE SPRAIN 04/14/2009 YANEZ DO, KIRK K 844.9 KNEE SPRAIN 04/14/2009 DESIREE SPENCE MD N 844.9 KNEE SPRAIN 04/14/2009 DESIREE SPENCE MD N 844.9 KNEE SPRAIN 04/14/2009 DESIREE SPENCE MD N 844.9 KNEE SPRAIN 04/14/2009 ALDEN [employer] SURGEON, CHARISSA R 844.9 KNEE SPRAIN 04/14/2009 ALDEN [employer] ANK[employer] SURGEON, CHARISSA R 844.9 KNEE SPRAIN 04/14/2009 ALDEN [employer] ANK[employer] SURGEON, CHARISSA R 844.9 KNEE SPRAIN 04/14/2009 YANEZ DO, KIRK K 844.9 KNEE SPRAIN 04/14/2009 ALDEN [employer] SURGEON, CHARISSA R 844.9 KNEE SPRAIN 04/14/2009 YANEZ DO, KIRK K 844.9 KNEE SPRAIN 04/14/2009 YANEZ DO, KIRK K 844.9 KNEE SPRAIN 04/14/2009 ALDEN [employer] SURGEON, CHARISSA R 844.9 KNEE SPRAIN 04/14/2009 DANIELLA MCGREGOR, [place] A 844.9 KNEE SPRAIN 04/14/2009 DANIELLA MCGREGOR, [place] A 844.9 KNEE SPRAIN 04/14/2009 DESIREE SPENCE MD N 844.9 KNEE SPRAIN 04/14/2009 DESIREE SPENCE MD N 844.9 KNEE SPRAIN 04/14/2009 DESIREE SPENCE MD N 844.9 KNEE SPRAIN 04/14/2009 DESIREE SPENCE MD N 844.9 KNEE SPRAIN 04/14/2009 DESIREE SPENCE MD N 844.9 KNEE SPRAIN 04/14/2009 DESIREE SPENCE MD N 844.9 KNEE SPRAIN 04/14/2009 DESIREE SPENCE MD N 844.9 KNEE SPRAIN 04/14/2009 DESIREE SPENCE MD N 844.9 KNEE SPRAIN 04/14/2009 DESIREE SPENCE MD N 844.9 KNEE SPRAIN 04/14/2009 DESIREE SPENCE MD N 844.9 KNEE SPRAIN 05/31/2009 ARBEN CHRISTIAN, KELY 564.1 IRRITABLE BOWEL SYNDROME 05/31/2009 KELY THEODORE MD 564.1 IRRITABLE BOWEL SYNDROME 05/31/2009 564.1 IRRITABLE BOWEL SYNDROME 05/31/2009 RENATA SPIVEY KIRK K 564.1 IRRITABLE BOWEL SYNDROME 05/31/2009 JEREMIAH CANSECO APRN 564.1 IRRITABLE BOWEL SYNDROME 05/31/2009 564.1 IRRITABLE BOWEL SYNDROME 05/31/2009 564.1 IRRITABLE BOWEL SYNDROME 05/31/2009 564.1 IRRITABLE BOWEL SYNDROME 05/31/2009 KELY THEODORE MD 564.1 IRRITABLE BOWEL SYNDROME 05/31/2009 PATRICIA LYNCH APRN 564.1 IRRITABLE BOWEL SYNDROME 05/31/2009 YANEZ DO KIRK K 564.1 IRRITABLE BOWEL SYNDROME 05/31/2009 YANEZ DO KIRK K 564.1 IRRITABLE BOWEL SYNDROME 05/31/2009 YANEZ DO KIRK K 564.1 IRRITABLE BOWEL SYNDROME 05/31/2009 JEREMIAH CANSECO APRN 564.1 IRRITABLE BOWEL SYNDROME 05/31/2009 YANEZ DO KIRK K 564.1 IRRITABLE BOWEL SYNDROME 05/31/2009 YANEZ DO KIRK K 564.1 IRRITABLE BOWEL SYNDROME 05/31/2009 JORDY CHRISTIAN, DESIREE Leonard 564.1 IRRITABLE BOWEL SYNDROME 05/31/2009 JORDY CHRISTIAN, DESIREE Leonard 564.1 IRRITABLE BOWEL SYNDROME 05/31/2009 DESIREE SPENCE MD 564.1 IRRITABLE BOWEL SYNDROME 05/31/2009 ALDEN MCGREGOR, CHARISSA R 564.1 IRRITABLE BOWEL SYNDROME 05/31/2009 ALDEN MCGREGOR, CHARISSA R 564.1 IRRITABLE BOWEL SYNDROME 05/31/2009 ALDEN MCGREGOR, CHARISSA R 564.1 IRRITABLE BOWEL SYNDROME 05/31/2009 YANEZ DO KIRK K 564.1 IRRITABLE BOWEL SYNDROME 05/31/2009 ALDEN MCGREGOR, CHARISSA R 564.1 IRRITABLE BOWEL SYNDROME 05/31/2009 YANEZ DO KIRK K 564.1 IRRITABLE BOWEL SYNDROME 05/31/2009 YANEZ DO KIRK K 564.1 IRRITABLE BOWEL SYNDROME 05/31/2009 CHARISSA RUANO APRN R 564.1 IRRITABLE BOWEL SYNDROME 05/31/2009 SANFORD BREWER APRN A 564.1 IRRITABLE BOWEL SYNDROME 05/31/2009 SANFORD BREWER APRN A 564.1 IRRITABLE BOWEL SYNDROME 05/31/2009 JORDY CHRISTIAN, DESIREE N 564.1 IRRITABLE BOWEL SYNDROME 05/31/2009 JORDY CHRISTIAN, DESIREE N 564.1 IRRITABLE BOWEL SYNDROME 05/31/2009 JORDY CHRISTIAN, DESIREE N 564.1 IRRITABLE BOWEL SYNDROME 05/31/2009 JORDY CHRISTIAN, DESIREE N 564.1 IRRITABLE BOWEL SYNDROME 05/31/2009 JORDY CHRISTIAN, DESIREE N 564.1 IRRITABLE BOWEL SYNDROME 05/31/2009 JORDY CHRISTIAN, DESIREE N 564.1 IRRITABLE BOWEL SYNDROME 05/31/2009 JORDY CHRISTIAN, DESIREE N 564.1 IRRITABLE BOWEL SYNDROME 05/31/2009 JORDY CHRISTIAN, DESIREE N 564.1 IRRITABLE BOWEL SYNDROME 05/31/2009 JORDY CHRISTIAN, DESIREE N 564.1 IRRITABLE BOWEL SYNDROME 05/31/2009 JORDY CHRISTIAN, DESIREE N 564.1 IRRITABLE BOWEL SYNDROME 07/16/2009 KELY THEODORE MD 477.9 ALLERGIC RHINITIS 07/16/2009 KELY THEODORE MD 477.9 ALLERGIC RHINITIS 07/16/2009 477.9 ALLERGIC RHINITIS 07/16/2009 KIRK YANEZ DO 477.9 ALLERGIC RHINITIS 07/16/2009 JEREMIAH CANSECO APRN 477.9 ALLERGIC RHINITIS 07/16/2009 477.9 ALLERGIC RHINITIS 07/16/2009 477.9 ALLERGIC RHINITIS 07/16/2009 477.9 ALLERGIC RHINITIS 07/16/2009 KELY THEODORE MD 477.9 ALLERGIC RHINITIS 07/16/2009 PATRICIA LYNCH APRN 477.9 ALLERGIC RHINITIS 07/16/2009 KIRK YANEZ DO 477.9 ALLERGIC RHINITIS 07/16/2009 KIRK YANEZ DO K 477.9 ALLERGIC RHINITIS 07/16/2009 YANEZ TAHMINA SPIVEYA K 477.9 ALLERGIC RHINITIS 07/16/2009 JEREMIAH CANSECO APRN 477.9 ALLERGIC RHINITIS 07/16/2009 YANEZ DO, KIRK K 477.9 ALLERGIC RHINITIS 07/16/2009 YANEZ DO, KIRK K 477.9 ALLERGIC RHINITIS 07/16/2009 JORDY CHRISTIAN, DESIREE N 477.9 ALLERGIC RHINITIS 07/16/2009 JORDY CHRISTIAN, DESIREE N 477.9 ALLERGIC RHINITIS 07/16/2009 JORDY CHRISTIAN, DESIREE N 477.9 ALLERGIC RHINITIS 07/16/2009 ALDEN FOOT AND ANKLE SURGEON, CHARISSA R 477.9 ALLERGIC RHINITIS 07/16/2009 ALDEN FOOT AND ANKLE SURGEON, CHARISSA R 477.9 ALLERGIC RHINITIS 07/16/2009 ALDEN FOOT AND ANKLE SURGEON, CHARISSA R 477.9 ALLERGIC RHINITIS 07/16/2009 YANEZ DO, KIRK K 477.9 ALLERGIC RHINITIS 07/16/2009 ALDEN FOOT AND ANKLE SURGEON, CHARISSA R 477.9 ALLERGIC RHINITIS 07/16/2009 YANEZ DO, KIRK K 477.9 ALLERGIC RHINITIS 07/16/2009 YANEZ DO, KIRK K 477.9 ALLERGIC RHINITIS 07/16/2009 ALDEN FOOT AND ANKLE SURGEON, CHARISSA R 477.9 ALLERGIC RHINITIS 07/16/2009 DANIELLA FOOT AND ANKLE SURGEON, SAN[place] A 477.9 ALLERGIC RHINITIS 07/16/2009 DANIELLA FOOT AND ANKLE SURGEON, [place] A 477.9 ALLERGIC RHINITIS 07/16/2009 JORDY CHRISTIAN, DESIREE N 477.9 ALLERGIC RHINITIS 07/16/2009 JORDY CHRISTIAN, DESIREE N 477.9 ALLERGIC RHINITIS 07/16/2009 JORDY CHRISTIAN, DESIREE N 477.9 ALLERGIC RHINITIS 07/16/2009 JORDY CHRISTIAN, DESIREE N 477.9 ALLERGIC RHINITIS 07/16/2009 DESIREE SPENCE MD N 477.9 ALLERGIC RHINITIS 07/16/2009 DESIREE SPENCE MD N 477.9 ALLERGIC RHINITIS 07/16/2009 DESIREE SPENCE MD N 477.9 ALLERGIC RHINITIS 07/16/2009 JORDY CHRISTIAN, DESIREE N 477.9 ALLERGIC RHINITIS 07/16/2009 DESIREE SPENCE MD N 477.9 ALLERGIC RHINITIS 07/16/2009 JORDY CHRISTIAN, DESIREE N 477.9 ALLERGIC RHINITIS 07/31/2009 KELY THEODORE MD 717.7 Chondromalacia Of Patella 07/31/2009 KELY THEODORE MD 717.7 Chondromalacia Of Patella 07/31/2009 717.7 Chondromalacia Of Patella 07/31/2009 TAHMINA YANEZ DOA K 717.7 Chondromalacia Of Patella 07/31/2009 JEREMIAH CANSECO APRN 717.7 Chondromalacia Of Patella 07/31/2009 717.7 Chondromalacia Of Patella 07/31/2009 717.7 Chondromalacia Of Patella 07/31/2009 717.7 Chondromalacia Of Patella 07/31/2009 KELY THEODORE MD 717.7 Chondromalacia Of Patella 07/31/2009 PATRICIA LYNCH APRN 717.7 Chondromalacia Of Patella 07/31/2009 TAHMINA YANEZ DOA K 717.7 Chondromalacia Of Patella 07/31/2009 YANEZ DOTAHMINAA K 717.7 Chondromalacia Of Patella 07/31/2009 YANEZ DO KIRK K 717.7 Chondromalacia Of Patella 07/31/2009 JEREMIAH CANSECO APRN 717.7 Chondromalacia Of Patella 07/31/2009 TAHMINA YANEZ DOA K 717.7 Chondromalacia Of Patella 07/31/2009 TAHMINA YANEZ DOA K 717.7 Chondromalacia Of Patella 07/31/2009 DESIREE SPENCE MD N 717.7 Chondromalacia Of Patella 07/31/2009 DESIREE SPENCE MD N 717.7 Chondromalacia Of Patella 07/31/2009 DESIREE SPENCE MD N 717.7 Chondromalacia Of Patella 07/31/2009 DAVI RUANO APRNINA R 717.7 Chondromalacia Of Patella 07/31/2009 DAVI RUANO APRNINA R 717.7 Chondromalacia Of Patella 07/31/2009 DAVI RUANO APRNINA R 717.7 Chondromalacia Of Patella 07/31/2009 YANEZ TAHMINA SPIVEYA K 717.7 Chondromalacia Of Patella 07/31/2009 ALDEN MCGREGOR CHARISSA R 717.7 Chondromalacia Of Patella 07/31/2009 YANEZ TAHMINA SPIVEYA K 717.7 Chondromalacia Of Patella 07/31/2009 YANEZ DO KIRK K 717.7 Chondromalacia Of Patella 07/31/2009 ALDEN MCGREGOR CHARISSA R 717.7 Chondromalacia Of Patella 07/31/2009 DANIELLA FOOT AND ANKLE SURGEON, [place] A 717.7 Chondromalacia Of Patella 07/31/2009 SANFORD BREWER APRN A 717.7 Chondromalacia Of Patella 07/31/2009 DESIREE SPENCE MD N 717.7 Chondromalacia Of Patella 07/31/2009 DESIREE SPENCE MD N 717.7 Chondromalacia Of Patella 07/31/2009 DESIREE SPENCE MD N 717.7 Chondromalacia Of Patella 07/31/2009 DESIREE SPENCE MD N 717.7 Chondromalacia Of Patella 07/31/2009 DESIREE SPENCE MD N 717.7 Chondromalacia Of Patella 07/31/2009 DESIREE SPENCE MD N 717.7 Chondromalacia Of Patella 07/31/2009 DESIREE SPENCE MD N 717.7 Chondromalacia Of Patella 07/31/2009 DESIREE SPENCE MD N 717.7 Chondromalacia Of Patella 07/31/2009 DESIREE SPENCE MD N 717.7 Chondromalacia Of Patella 07/31/2009 DESIREE SPENCE MD N 717.7 Chondromalacia Of Patella 08/07/2009 KELY THEODORE MD 112.1 VAGINITIS GLENDA ALBICANS 08/07/2009 KELY THEODORE MD 112.3 CANDIDIASIS SKIN CANDIDAL INTERTRIGO 08/07/2009 KELY THEODORE MD 112.1 VAGINITIS GLENDA ALBICANS 08/07/2009 KELY THEODORE MD 112.3 CANDIDIASIS SKIN CANDIDAL INTERTRIGO 08/07/2009 112.1 VAGINITIS GLENDA ALBICANS 08/07/2009 112.3 CANDIDIASIS SKIN CANDIDAL INTERTRIGO 08/07/2009 KIRK YANEZ DO 112.1 VAGINITIS GLENDA ALBICANS 08/07/2009 KIRK YANEZ DO 112.3 CANDIDIASIS SKIN CANDIDAL INTERTRIGO 08/07/2009 JEREMIAH CANSECO APRN 112.1 VAGINITIS GLENDA ALBICANS 08/07/2009 JEREMIAH CANSECO APRN 112.3 CANDIDIASIS SKIN CANDIDAL INTERTRIGO 08/07/2009 112.1 VAGINITIS GLENDA ALBICANS 08/07/2009 112.3 CANDIDIASIS SKIN CANDIDAL INTERTRIGO 08/07/2009 112.1 VAGINITIS GLENDA ALBICANS 08/07/2009 112.3 CANDIDIASIS SKIN CANDIDAL INTERTRIGO 08/07/2009 112.1 VAGINITIS GLENDA ALBICANS 08/07/2009 112.3 CANDIDIASIS SKIN CANDIDAL INTERTRIGO 08/07/2009 KELY THEODORE MD 112.1 VAGINITIS GLENDA ALBICANS 08/07/2009 KELY THEODORE MD 112.3 CANDIDIASIS SKIN CANDIDAL INTERTRIGO 08/07/2009 PATRICIA LYNCH APRN 112.1 VAGINITIS GLENDA ALBICANS 08/07/2009 PATRICIA LYNCH APRN 112.3 CANDIDIASIS SKIN CANDIDAL INTERTRIGO 08/07/2009 RENATA SPIVEY KIRK K 112.1 VAGINITIS GLENDA ALBICANS 08/07/2009 RENATA SPIVEY KIRK K 112.3 CANDIDIASIS SKIN CANDIDAL INTERTRIGO 08/07/2009 RENATA SPIVEY KIRK K 112.1 VAGINITIS GLENDA ALBICANS 08/07/2009 RENATA SPIVEY KIRK K 112.3 CANDIDIASIS SKIN CANDIDAL INTERTRIGO 08/07/2009 RENATA SPIVEY KIRK K 112.1 VAGINITIS GLENDA ALBICANS 08/07/2009 RENATA SPIVEY KIRK K 112.3 CANDIDIASIS SKIN CANDIDAL INTERTRIGO 08/07/2009 JEREMIAH CANSECO APRN 112.1 VAGINITIS GLENDA ALBICANS 08/07/2009 JEREMIAH CANSECO APRN 112.3 CANDIDIASIS SKIN CANDIDAL INTERTRIGO 08/07/2009 RENATA SPIVEY KIRK K 112.1 VAGINITIS GLENDA ALBICANS 08/07/2009 RENATA SPIVEY KIRK K 112.3 CANDIDIASIS SKIN CANDIDAL INTERTRIGO 08/07/2009 RENATA SPIVEY KIRK K 112.1 VAGINITIS GLENDA ALBICANS 08/07/2009 RENATA SPIVEY KIRK K 112.3 CANDIDIASIS SKIN CANDIDAL INTERTRIGO 08/07/2009 DESIREE SPENCE MD 112.1 VAGINITIS GLENDA ALBICANS 08/07/2009 DESIREE SPENCE MD 112.3 CANDIDIASIS SKIN CANDIDAL INTERTRIGO 08/07/2009 DESIREE SPENCE MD 112.1 VAGINITIS GLENDA ALBICANS 08/07/2009 DESIREE SPENCE MD 112.3 CANDIDIASIS SKIN CANDIDAL INTERTRIGO 08/07/2009 DESIREE SPENCE MD 112.1 VAGINITIS GLENDA ALBICANS 08/07/2009 DESIREE SPENCE MD 112.3 CANDIDIASIS SKIN CANDIDAL INTERTRIGO 08/07/2009 ALDEN FOOT AND ANKLE SURGEON, CHARISSA R 112.1 VAGINITIS GLENDA ALBICANS 08/07/2009 ALDEN FOOT AND ANKLE SURGEON, CHARISSA R 112.3 CANDIDIASIS SKIN CANDIDAL INTERTRIGO 08/07/2009 ALDEN FOOT AND ANKLE SURGEON, CHARISSA R 112.1 VAGINITIS GLENDA ALBICANS 08/07/2009 ALDEN FOOT AND ANKLE SURGEON, CHARISSA R 112.3 CANDIDIASIS SKIN CANDIDAL INTERTRIGO 08/07/2009 ALDEN FOOT AND ANKLE SURGEON, CHARISSA R 112.1 VAGINITIS GLENDA ALBICANS 08/07/2009 ALDEN FOOT AND ANKLE SURGEON, CHARISSA R 112.3 CANDIDIASIS SKIN CANDIDAL INTERTRIGO 08/07/2009 YANEZ DO, KIRK K 112.1 VAGINITIS GLENDA ALBICANS 08/07/2009 YANEZ DO, KIRK K 112.3 CANDIDIASIS SKIN CANDIDAL INTERTRIGO 08/07/2009 ALDEN FOOT AND ANKLE SURGEON, CHARISSA R 112.1 VAGINITIS GLENDA ALBICANS 08/07/2009 ALDEN FOOT AND ANKLE SURGEON, CHARISSA R 112.3 CANDIDIASIS SKIN CANDIDAL INTERTRIGO 08/07/2009 YANEZ DO, KIRK K 112.1 VAGINITIS GLENDA ALBICANS 08/07/2009 YANEZ DO, KIRK K 112.3 CANDIDIASIS SKIN CANDIDAL INTERTRIGO 08/07/2009 YANEZ DO, KIRK K 112.1 VAGINITIS GLENDA ALBICANS 08/07/2009 YANEZ DO, KIRK K 112.3 CANDIDIASIS SKIN CANDIDAL INTERTRIGO 08/07/2009 ALDEN FOOT AND ANKLE SURGEON, CHARISSA R 112.1 VAGINITIS GLENDA ALBICANS 08/07/2009 ALDEN FOOT AND ANKLE SURGEON, CHARISSA R 112.3 CANDIDIASIS SKIN CANDIDAL INTERTRIGO 08/07/2009 DANIELLA FOOT AND ANKLE SURGEON, [place] A 112.1 VAGINITIS GLENDA ALBICANS 08/07/2009 DANIELLA FOOT AND ANKLE SURGEON, [place] A 112.3 CANDIDIASIS SKIN CANDIDAL INTERTRIGO 08/07/2009 DANIELLA FOOT AND ANKLE SURGEON, [place] A 112.1 VAGINITIS GLENDA ALBICANS 08/07/2009 DANIELLA FOOT AND ANKLE SURGEON, [place] A 112.3 CANDIDIASIS SKIN CANDIDAL INTERTRIGO 08/07/2009 DESIREE SPENCE MD 112.1 VAGINITIS GLENDA ALBICANS 08/07/2009 DESIREE SPENCE MD 112.3 CANDIDIASIS SKIN CANDIDAL INTERTRIGO 08/07/2009 DESIREE SPENCE MD 112.1 VAGINITIS GLENDA ALBICANS 08/07/2009 DESIREE SPENCE MD 112.3 CANDIDIASIS SKIN CANDIDAL INTERTRIGO 08/07/2009 DESIREE SPENCE MD N 112.1 VAGINITIS GLENDA ALBICANS 08/07/2009 DESIREE SPENCE MD N 112.3 CANDIDIASIS SKIN CANDIDAL INTERTRIGO 08/07/2009 DESIREE SPENCE MD N 112.1 VAGINITIS GLENDA ALBICANS 08/07/2009 DESIREE SPENCE MD N 112.3 CANDIDIASIS SKIN CANDIDAL INTERTRIGO 08/07/2009 DESIREE SPENCE MD N 112.1 VAGINITIS GLENDA ALBICANS 08/07/2009 DESIREE SPENCE MD N 112.3 CANDIDIASIS SKIN CANDIDAL INTERTRIGO 08/07/2009 DESIREE SPENCE MD N 112.1 VAGINITIS GLENDA ALBICANS 08/07/2009 DESIREE SPENCE MD N 112.3 CANDIDIASIS SKIN CANDIDAL INTERTRIGO 08/07/2009 DESIREE SPENCE MD N 112.1 VAGINITIS GLENDA ALBICANS 08/07/2009 DESIREE SPENCE MD N 112.3 CANDIDIASIS SKIN CANDIDAL INTERTRIGO 08/07/2009 DESIREE SPENCE MD N 112.1 VAGINITIS GLENDA ALBICANS 08/07/2009 DESIREE SPENCE MD N 112.3 CANDIDIASIS SKIN CANDIDAL INTERTRIGO 08/07/2009 DESIREE SPENCE MD N 112.1 VAGINITIS GLENDA ALBICANS 08/07/2009 DESIREE SPENCE MD N 112.3 CANDIDIASIS SKIN CANDIDAL INTERTRIGO 08/07/2009 DESIREE SPENCE MD N 112.1 VAGINITIS GLENDA ALBICANS 08/07/2009 DESIREE SPENCE MD N 112.3 CANDIDIASIS SKIN CANDIDAL INTERTRIGO 08/20/2009 KELY THEODORE MD 386.2 VERTIGO OF CENTRAL ORIGIN 08/20/2009 KELY THEODORE MD 386.2 VERTIGO OF CENTRAL ORIGIN 08/20/2009 386.2 VERTIGO OF CENTRAL ORIGIN 08/20/2009 KIRK YANEZ DO 386.2 VERTIGO OF CENTRAL ORIGIN 08/20/2009 JEREMIAH CANSECO APRN 386.2 VERTIGO OF CENTRAL ORIGIN 08/20/2009 386.2 VERTIGO OF CENTRAL ORIGIN 08/20/2009 386.2 VERTIGO OF CENTRAL ORIGIN 08/20/2009 386.2 VERTIGO OF CENTRAL ORIGIN 08/20/2009 KELY THEODORE MD 386.2 VERTIGO OF CENTRAL ORIGIN 08/20/2009 PATRICIA LYNCH APRN 386.2 VERTIGO OF CENTRAL ORIGIN 08/20/2009 YANEZ DO, KIRK K 386.2 VERTIGO OF CENTRAL ORIGIN 08/20/2009 YANEZ DO, KIRK K 386.2 VERTIGO OF CENTRAL ORIGIN 08/20/2009 YANEZ DO, KIRK K 386.2 VERTIGO OF CENTRAL ORIGIN 08/20/2009 HARLEEN MCGREGOR JEREMIAH BAUER 386.2 VERTIGO OF CENTRAL ORIGIN 08/20/2009 YANEZ DO, KIRK K 386.2 VERTIGO OF CENTRAL ORIGIN 08/20/2009 YANEZ DO, KIRK K 386.2 VERTIGO OF CENTRAL ORIGIN 08/20/2009 DESIREE SPENCE MD 386.2 VERTIGO OF CENTRAL ORIGIN 08/20/2009 DESIREE SPENCE MD 386.2 VERTIGO OF CENTRAL ORIGIN 08/20/2009 DESIREE SPENCE MD 386.2 VERTIGO OF CENTRAL ORIGIN 08/20/2009 ALDEN MCGREGOR, CHARISSA R 386.2 VERTIGO OF CENTRAL ORIGIN 08/20/2009 ALDEN MCGREGOR CHARISSA R 386.2 VERTIGO OF CENTRAL ORIGIN 08/20/2009 ALDEN MCGREGOR, CHARISSA R 386.2 VERTIGO OF CENTRAL ORIGIN 08/20/2009 YANEZ DO, KIRK K 386.2 VERTIGO OF CENTRAL ORIGIN 08/20/2009 ALDEN MCGREGOR, CHARISSA R 386.2 VERTIGO OF CENTRAL ORIGIN 08/20/2009 YANEZ DO, KIRK K 386.2 VERTIGO OF CENTRAL ORIGIN 08/20/2009 YANEZ DO, KIRK K 386.2 VERTIGO OF CENTRAL ORIGIN 08/20/2009 ALDEN MCGRGEOR, CHARISSA R 386.2 VERTIGO OF CENTRAL ORIGIN 08/20/2009 SANFORD BREWER APRN A 386.2 VERTIGO OF CENTRAL ORIGIN 08/20/2009 SANFORD BREWER APRN A 386.2 VERTIGO OF CENTRAL ORIGIN 08/20/2009 DESIREE SPENCE MD 386.2 VERTIGO OF CENTRAL ORIGIN 08/20/2009 DESIREE SPENCE MD 386.2 VERTIGO OF CENTRAL ORIGIN 08/20/2009 DESIREE SPENCE MD 386.2 VERTIGO OF CENTRAL ORIGIN 08/20/2009 DESIREE SPENCE MD 386.2 VERTIGO OF CENTRAL ORIGIN 08/20/2009 DESIREE SPENCE MD N 386.2 VERTIGO OF CENTRAL ORIGIN 08/20/2009 DESIREE SPENCE MD N 386.2 VERTIGO OF CENTRAL ORIGIN 08/20/2009 DESIREE SPENCE MD 386.2 VERTIGO OF CENTRAL ORIGIN 08/20/2009 DESIREE SPENCE MD 386.2 VERTIGO OF CENTRAL ORIGIN 08/20/2009 DESIREE SPENCE MD 386.2 VERTIGO OF CENTRAL ORIGIN 08/20/2009 DESIREE SPENCE MD 386.2 VERTIGO OF CENTRAL ORIGIN 09/08/2009 KELY THEODORE MD 780.71 CHRONIC FATIGUE SYNDROME 09/08/2009 KELY THEODORE MD 780.71 CHRONIC FATIGUE SYNDROME 09/08/2009 780.71 CHRONIC FATIGUE SYNDROME 09/08/2009 KIRK YANEZ DO 780.71 CHRONIC FATIGUE SYNDROME 09/08/2009 JEREMIAH CANSECO APRN 780.71 CHRONIC FATIGUE SYNDROME 09/08/2009 780.71 CHRONIC FATIGUE SYNDROME 09/08/2009 780.71 CHRONIC FATIGUE SYNDROME 09/08/2009 780.71 CHRONIC FATIGUE SYNDROME 09/08/2009 KELY THEODORE MD 780.71 CHRONIC FATIGUE SYNDROME 09/08/2009 PATRICIA LYNCH APRN 780.71 CHRONIC FATIGUE SYNDROME 09/08/2009 TAHMINA YANEZ DOA K 780.71 CHRONIC FATIGUE SYNDROME 09/08/2009 TAHMINA YANEZ DOA K 780.71 CHRONIC FATIGUE SYNDROME 09/08/2009 TAHMINA YANEZ DOA K 780.71 CHRONIC FATIGUE SYNDROME 09/08/2009 JEREMIAH CANSECO APRN 780.71 CHRONIC FATIGUE SYNDROME 09/08/2009 TAHMINA YANEZ DOA K 780.71 CHRONIC FATIGUE SYNDROME 09/08/2009 TAHMINA YANEZ DOA K 780.71 CHRONIC FATIGUE SYNDROME 09/08/2009 DESIREE SPENCE MD 780.71 CHRONIC FATIGUE SYNDROME 09/08/2009 DESIREE SPENCE MD 780.71 CHRONIC FATIGUE SYNDROME 09/08/2009 DESIREE SPENCE MD 780.71 CHRONIC FATIGUE SYNDROME 09/08/2009 CHARISSA RUANO APRN 780.71 CHRONIC FATIGUE SYNDROME 09/08/2009 CHARISSA RUANO APRN R 780.71 CHRONIC FATIGUE SYNDROME 09/08/2009 CHARISSA RUANO APRN R 780.71 CHRONIC FATIGUE SYNDROME 09/08/2009 TAHMINA YANEZ DOA K 780.71 CHRONIC FATIGUE SYNDROME 09/08/2009 ALDEN FOOT AND ANKLE SURGEON, CHARISSA R 780.71 CHRONIC FATIGUE SYNDROME 09/08/2009 YANEZ DO, KIRK K 780.71 CHRONIC FATIGUE SYNDROME 09/08/2009 YANEZ DO, KIRK K 780.71 CHRONIC FATIGUE SYNDROME 09/08/2009 ALDEN MCGREGOR CHARISSA R 780.71 CHRONIC FATIGUE SYNDROME 09/08/2009 DANIELLASANFORD Leonard APRN A 780.71 CHRONIC FATIGUE SYNDROME 09/08/2009 SANFORD BREWER APRN A 780.71 CHRONIC FATIGUE SYNDROME 09/08/2009 DESIREE SPENCE MD 780.71 CHRONIC FATIGUE SYNDROME 09/08/2009 DESIREE SPENCE MD 780.71 CHRONIC FATIGUE SYNDROME 09/08/2009 DESIREE SPENCE MD 780.71 CHRONIC FATIGUE SYNDROME 09/08/2009 DESIREE SPENCE MD 780.71 CHRONIC FATIGUE SYNDROME 09/08/2009 DESIREE SPENCE MD 780.71 CHRONIC FATIGUE SYNDROME 09/08/2009 DESIREE SPENCE MD 780.71 CHRONIC FATIGUE SYNDROME 09/08/2009 DESIREE SPENCE MD 780.71 CHRONIC FATIGUE SYNDROME 09/08/2009 DESIREE SPENCE MD 780.71 CHRONIC FATIGUE SYNDROME 09/08/2009 DESIREE SPENCE MD 780.71 CHRONIC FATIGUE SYNDROME 09/08/2009 DESIREE SPENCE MD 780.71 CHRONIC FATIGUE SYNDROME 10/09/2009 KELY THEODORE MD 368.10 SUBJECTIVE VISUAL DISTURBANCES 10/09/2009 KELY THEODORE MD 493.90 ASTHMA 10/09/2009 KELY THEODORE MD 368.10 SUBJECTIVE VISUAL DISTURBANCES 10/09/2009 KELY THEODORE MD 493.90 ASTHMA 10/09/2009 368.10 SUBJECTIVE VISUAL DISTURBANCES 10/09/2009 493.90 ASTHMA 10/09/2009 YANEZ DO KIRK K 368.10 SUBJECTIVE VISUAL DISTURBANCES 10/09/2009 YANEZ DO KIRK K 493.90 ASTHMA 10/09/2009 JEREMIAH CANSECO APRN 368.10 SUBJECTIVE VISUAL DISTURBANCES 10/09/2009 JEREMIAH CANSECO APRN 493.90 ASTHMA 10/09/2009 368.10 SUBJECTIVE VISUAL DISTURBANCES 10/09/2009 493.90 ASTHMA 10/09/2009 368.10 SUBJECTIVE VISUAL DISTURBANCES 10/09/2009 493.90 ASTHMA 10/09/2009 368.10 SUBJECTIVE VISUAL DISTURBANCES 10/09/2009 493.90 ASTHMA 10/09/2009 KELY THEODORE MD 368.10 SUBJECTIVE VISUAL DISTURBANCES 10/09/2009 KELY THEODORE MD 493.90 ASTHMA 10/09/2009 PATRICIA LYNCH APRN 368.10 SUBJECTIVE VISUAL DISTURBANCES 10/09/2009 PATRICIA LYNCH APRN 493.90 ASTHMA 10/09/2009 YANEZ DO, KIRK K 368.10 SUBJECTIVE VISUAL DISTURBANCES 10/09/2009 YANEZ DO, KIRK K 493.90 ASTHMA 10/09/2009 YANEZ DO, KIRK K 368.10 SUBJECTIVE VISUAL DISTURBANCES 10/09/2009 YANEZ DO, KIRK K 493.90 ASTHMA 10/09/2009 YANEZ DO, KIRK K 368.10 SUBJECTIVE VISUAL DISTURBANCES 10/09/2009 YANEZ DO, KIRK K 493.90 ASTHMA 10/09/2009 JEREMIAH CANSECO APRN 368.10 SUBJECTIVE VISUAL DISTURBANCES 10/09/2009 JEREMIAH CANSECO APRN 493.90 ASTHMA 10/09/2009 YANEZ DO, KIRK K 368.10 SUBJECTIVE VISUAL DISTURBANCES 10/09/2009 YANEZ DO, KIRK K 493.90 ASTHMA 10/09/2009 YANEZ DO, KIRK K 368.10 SUBJECTIVE VISUAL DISTURBANCES 10/09/2009 YANEZ DO, KIRK K 493.90 ASTHMA 10/09/2009 DESIREE SPENCE MD N 368.10 SUBJECTIVE VISUAL DISTURBANCES 10/09/2009 DESIREE SPENCE MD N 493.90 ASTHMA 10/09/2009 DESIREE SPENCE MD N 368.10 SUBJECTIVE VISUAL DISTURBANCES 10/09/2009 DESIREE SPENCE MD N 493.90 ASTHMA 10/09/2009 DESIREE SPENCE MD N 368.10 SUBJECTIVE VISUAL DISTURBANCES 10/09/2009 DESIREE SPENCE MD N 493.90 ASTHMA 10/09/2009 ALDEN [employer] SURGEON, CHARISSA R 368.10 SUBJECTIVE VISUAL DISTURBANCES 10/09/2009 ALDEN [employer]OT AND ANKLE SURGEON, CHARISSA R 493.90 ASTHMA 10/09/2009 ALDEN [employer] AND ANKLE SURGEON, CHARISSA R 368.10 SUBJECTIVE VISUAL DISTURBANCES 10/09/2009 ALDEN [employer] SURGEON, CHARISSA R 493.90 ASTHMA 10/09/2009 ALDEN [employer] SURGEON, CHARISSA R 368.10 SUBJECTIVE VISUAL DISTURBANCES 10/09/2009 ALDEN [employer] SURGEON, CHARISSA R 493.90 ASTHMA 10/09/2009 YANEZ DO, KIRK K 368.10 SUBJECTIVE VISUAL DISTURBANCES 10/09/2009 YANEZ DO, KIRK K 493.90 ASTHMA 10/09/2009 [employer] SURGEON, CHARISSA R 368.10 SUBJECTIVE VISUAL DISTURBANCES 10/09/2009 [employer] SURGEON, CHARISSA R 493.90 ASTHMA 10/09/2009 YANEZ DO, KIRK K 368.10 SUBJECTIVE VISUAL DISTURBANCES 10/09/2009 YANEZ DO, KIKR K 493.90 ASTHMA 10/09/2009 YANEZ DO, KIRK K 368.10 SUBJECTIVE VISUAL DISTURBANCES 10/09/2009 YANEZ DO, KIRK K 493.90 ASTHMA 10/09/2009 [employer] SURGEON, CHARISSA R 368.10 SUBJECTIVE VISUAL DISTURBANCES 10/09/2009 ALDEN [employer] SURGEON, CHARISSA R 493.90 ASTHMA 10/09/2009 DANIELLA FOOT AND ANKLE SURGEON, SANFORD A 368.10 SUBJECTIVE VISUAL DISTURBANCES 10/09/2009 DANIELLA [employer] AND ANKLE SURGEON, SAN[place]ORD A 493.90 ASTHMA 10/09/2009 DANIELLA [employer] ANKLE SURGEON, [place]ORD A 368.10 SUBJECTIVE VISUAL DISTURBANCES 10/09/2009 DANIELLA [employer] ANK[employer] SURGEON, [place]ORD A 493.90 ASTHMA 10/09/2009 DESIREE SPENCE MD N 368.10 SUBJECTIVE VISUAL DISTURBANCES 10/09/2009 DESIREE SPENCE MD N 493.90 ASTHMA 10/09/2009 DESIREE SPENCE MD N 368.10 SUBJECTIVE VISUAL DISTURBANCES 10/09/2009 DESIREE SPENCE MD N 493.90 ASTHMA 10/09/2009 DESIREE SPENCE MD N 368.10 SUBJECTIVE VISUAL DISTURBANCES 10/09/2009 DESIREE SPENCE MD N 493.90 ASTHMA 10/09/2009 DESIREE SPENCE MD N 368.10 SUBJECTIVE VISUAL DISTURBANCES 10/09/2009 DESIREE SPENCE MD N 493.90 ASTHMA 10/09/2009 DESIREE SPENCE MD N 368.10 SUBJECTIVE VISUAL DISTURBANCES 10/09/2009 DESIREE SPENCE MD N 493.90 ASTHMA 10/09/2009 DESIREE SPENCE MD N 368.10 SUBJECTIVE VISUAL DISTURBANCES 10/09/2009 DESIREE SPENCE MD N 493.90 ASTHMA 10/09/2009 DESIREE SPENCE MD N 368.10 SUBJECTIVE VISUAL DISTURBANCES 10/09/2009 DESIREE SPENCE MD N 493.90 ASTHMA 10/09/2009 DESIREE SPENCE MD N 368.10 SUBJECTIVE VISUAL DISTURBANCES 10/09/2009 DESIREE SPENCE MD N 493.90 ASTHMA 10/09/2009 DESIREE SPENCE MD N 368.10 SUBJECTIVE VISUAL DISTURBANCES 10/09/2009 DESIREE SPENCE MD 493.90 ASTHMA 10/09/2009 DESIREE SPENCE MD N 368.10 SUBJECTIVE VISUAL DISTURBANCES 10/09/2009 DESIREE SPENCE MD N 493.90 ASTHMA 11/28/2009 KELY THEODORE MD 780.93 memory lapses or loss 11/28/2009 KELY THEODORE MD 780.93 memory lapses or loss 11/28/2009 780.93 memory lapses or loss 11/28/2009 KIRK YANEZ DO 780.93 memory lapses or loss 11/28/2009 JEREMIAH CANSECO APRN 780.93 memory lapses or loss 11/28/2009 780.93 memory lapses or loss 11/28/2009 780.93 memory lapses or loss 11/28/2009 780.93 memory lapses or loss 11/28/2009 KELY THEODORE MD 780.93 memory lapses or loss 11/28/2009 PATRICIA LYNCH APRN 780.93 memory lapses or loss 11/28/2009 KIRK YANEZ DO K 780.93 memory lapses or loss 11/28/2009 YANEZ DO, KIRK K 780.93 memory lapses or loss 11/28/2009 YANEZ TAHMINA SPIVEYA K 780.93 memory lapses or loss 11/28/2009 JEREMIAH CANSECO APRN 780.93 memory lapses or loss 11/28/2009 YANEZ DOTAHMINAA K 780.93 memory lapses or loss 11/28/2009 YANEZ DO KIRK K 780.93 memory lapses or loss 11/28/2009 DESIREE SEPNCE MD 780.93 memory lapses or loss 11/28/2009 DESIREE SPENCE MD N 780.93 memory lapses or loss 11/28/2009 DESIREE SPENCE MD 780.93 memory lapses or loss 11/28/2009 ALDEN MCGREGOR CHARISSA R 780.93 memory lapses or loss 11/28/2009 ALDEN MCGREGOR CHARISSA R 780.93 memory lapses or loss 11/28/2009 ALDEN MCGREGOR CHARISSA R 780.93 memory lapses or loss 11/28/2009 RENATA SPIVEY KIRK K 780.93 memory lapses or loss 11/28/2009 ALDEN SINHAN, CHARISSA R 780.93 memory lapses or loss 11/28/2009 YANEZ DOTAHMINAA K 780.93 memory lapses or loss 11/28/2009 YANEZ DO, KIRK K 780.93 memory lapses or loss 11/28/2009 ALDEN SINHAN, CHARISSA R 780.93 memory lapses or loss 11/28/2009 DANIELLA [employer] SURGEON, SANFORD A 780.93 memory lapses or loss 11/28/2009 DANIELLA FOOT [employer] ANKLE SURGEON, SANOFRD A 780.93 memory lapses or loss 11/28/2009 DESIREE SPENCE MD N 780.93 memory lapses or loss 11/28/2009 DESIREE SPENCE MD N 780.93 memory lapses or loss 11/28/2009 DESIREE SPENCE MD N 780.93 memory lapses or loss 11/28/2009 DESIREE SPENCE MD N 780.93 memory lapses or loss 11/28/2009 DESIREE SPENCE MD N 780.93 memory lapses or loss 11/28/2009 JORDY CHRISTIAN DESIREE N 780.93 memory lapses or loss 11/28/2009 DESIREE SPENCE MD N 780.93 memory lapses or loss 11/28/2009 DESIREE SPENCE MD N 780.93 memory lapses or loss 11/28/2009 DESIREE SPENCE MD N 780.93 memory lapses or loss 11/28/2009 JORDY CHRISTIAN DESIREE N 780.93 memory lapses or loss 03/16/2010 KELY THEODORE MD 627.9 MENOPAUSAL DISORDER 03/16/2010 KELY THEODORE MD 787.20 difficulty swallowing (dysphagia) 03/16/2010 KELY THEODORE MD 627.9 MENOPAUSAL DISORDER 03/16/2010 KELY THEODORE MD 787.20 difficulty swallowing (dysphagia) 03/16/2010 627.9 MENOPAUSAL DISORDER 03/16/2010 787.20 difficulty swallowing (dysphagia) 03/16/2010 TAHMINA YANEZ DOA K 627.9 MENOPAUSAL DISORDER 03/16/2010 TAHMINA YANEZ DOA K 787.20 difficulty swallowing (dysphagia) 03/16/2010 JEREMIAH CANSECO APRN 627.9 MENOPAUSAL DISORDER 03/16/2010 JEREMIAH CANSECO APRN 787.20 difficulty swallowing (dysphagia) 03/16/2010 627.9 MENOPAUSAL DISORDER 03/16/2010 787.20 difficulty swallowing (dysphagia) 03/16/2010 627.9 MENOPAUSAL DISORDER 03/16/2010 787.20 difficulty swallowing (dysphagia) 03/16/2010 627.9 MENOPAUSAL DISORDER 03/16/2010 787.20 difficulty swallowing (dysphagia) 03/16/2010 KELY THEODORE MD 627.9 MENOPAUSAL DISORDER 03/16/2010 KELY THEODORE MD 787.20 difficulty swallowing (dysphagia) 03/16/2010 PATRICIA LYNCH APRN 627.9 MENOPAUSAL DISORDER 03/16/2010 PATRICIA LYNCH APRN 787.20 difficulty swallowing (dysphagia) 03/16/2010 YANEZ DO KIRK K 627.9 MENOPAUSAL DISORDER 03/16/2010 YANEZ DO, KIRK K 787.20 difficulty swallowing (dysphagia) 03/16/2010 YANEZ DO KIRK K 627.9 MENOPAUSAL DISORDER 03/16/2010 YANEZ DO KIRK K 787.20 difficulty swallowing (dysphagia) 03/16/2010 YANEZ DO, KIRK K 627.9 MENOPAUSAL DISORDER 03/16/2010 YANEZ DO, KIRK K 787.20 difficulty swallowing (dysphagia) 03/16/2010 HARLEEN MCGREGOR JEREMIAH SUAREZH 627.9 MENOPAUSAL DISORDER 03/16/2010 HARLEEN MCGREGOR JEREMIAH BAUER 787.20 difficulty swallowing (dysphagia) 03/16/2010 YANEZ DO KIRK K 627.9 MENOPAUSAL DISORDER 03/16/2010 YANEZ DO KIRK K 787.20 difficulty swallowing (dysphagia) 03/16/2010 YANEZ DO KIRK K 627.9 MENOPAUSAL DISORDER 03/16/2010 YANEZ DO, KIRK K 787.20 difficulty swallowing (dysphagia) 03/16/2010 DESIREE SPENCE MD 627.9 MENOPAUSAL DISORDER 03/16/2010 DESIREE SPENCE MD 787.20 difficulty swallowing (dysphagia) 03/16/2010 DESIREE SPENCE MD 627.9 MENOPAUSAL DISORDER 03/16/2010 DESIREE SPENCE MD 787.20 difficulty swallowing (dysphagia) 03/16/2010 DESIREE SPENCE MD 627.9 MENOPAUSAL DISORDER 03/16/2010 DESIREE SPENCE MD 787.20 difficulty swallowing (dysphagia) 03/16/2010 ALDEN FOOT AND ANKLE SURGEON, CHARISSA R 627.9 MENOPAUSAL DISORDER 03/16/2010 ALDEN FOOT AND ANKLE SURGEON, CHARISSA R 787.20 difficulty swallowing (dysphagia) 03/16/2010 ALDEN FOOT AND ANKLE SURGEON, CHARISSA R 627.9 MENOPAUSAL DISORDER 03/16/2010 ALDEN FOOT AND ANKLE SURGEON, CHARISSA R 787.20 difficulty swallowing (dysphagia) 03/16/2010 ALDEN FOOT AND ANKLE SURGEON, CHARISSA R 627.9 MENOPAUSAL DISORDER 03/16/2010 ALDEN FOOT AND ANKLE SURGEON, CHARISSA R 787.20 difficulty swallowing (dysphagia) 03/16/2010 YANEZ DO, KIRK K 627.9 MENOPAUSAL DISORDER 03/16/2010 YANEZ DO, KIRK K 787.20 difficulty swallowing (dysphagia) 03/16/2010 ALDEN FOOT AND ANKLE SURGEON, CHARISSA R 627.9 MENOPAUSAL DISORDER 03/16/2010 ALDEN FOOT AND ANKLE SURGEON, CHARISSA R 787.20 difficulty swallowing (dysphagia) 03/16/2010 YANEZ DO, KIRK K 627.9 MENOPAUSAL DISORDER 03/16/2010 YANEZ DO, KIRK K 787.20 difficulty swallowing (dysphagia) 03/16/2010 YANEZ DO, KIRK K 627.9 MENOPAUSAL DISORDER 03/16/2010 YANEZ DO, KIRK K 787.20 difficulty swallowing (dysphagia) 03/16/2010 ALDEN SINHAN, CHARISSA R 627.9 MENOPAUSAL DISORDER 03/16/2010 ALDEN FOOT AND ANKLE SURGEON, CHARISSA R 787.20 difficulty swallowing (dysphagia) 03/16/2010 DANIELLA APRN, [place] A 627.9 MENOPAUSAL DISORDER 03/16/2010 DANIELLA APRN, [place] A 787.20 difficulty swallowing (dysphagia) 03/16/2010 DANIELLA APRN, [place] A 627.9 MENOPAUSAL DISORDER 03/16/2010 DANIELLA APRN, [place] A 787.20 difficulty swallowing (dysphagia) 03/16/2010 DESIREE SPENCE MD N 627.9 MENOPAUSAL DISORDER 03/16/2010 DESIERE SPENCE MD N 787.20 difficulty swallowing (dysphagia) 03/16/2010 DESIREE SPENCE MD 627.9 MENOPAUSAL DISORDER 03/16/2010 DESIREE SPENCE MD 787.20 difficulty swallowing (dysphagia) 03/16/2010 JORDY MD, DESIREE N 627.9 MENOPAUSAL DISORDER 03/16/2010 DESIREE SPENCE MD N 787.20 difficulty swallowing (dysphagia) 03/16/2010 DESIREE SPENCE MD N 627.9 MENOPAUSAL DISORDER 03/16/2010 DESIREE SPENCE MD N 787.20 difficulty swallowing (dysphagia) 03/16/2010 DESIREE SPENCE MD N 627.9 MENOPAUSAL DISORDER 03/16/2010 DESIREE SPENCE MD N 787.20 difficulty swallowing (dysphagia) 03/16/2010 DESIREE SPENCE MD N 627.9 MENOPAUSAL DISORDER 03/16/2010 DESIREE SPENCE MD N 787.20 difficulty swallowing (dysphagia) 03/16/2010 DESIREE SPENCE MD N 627.9 MENOPAUSAL DISORDER 03/16/2010 DESIREE SPENCE MD N 787.20 difficulty swallowing (dysphagia) 03/16/2010 DESIREE SPENCE MD N 627.9 MENOPAUSAL DISORDER 03/16/2010 DESIREE SPENCE MD N 787.20 difficulty swallowing (dysphagia) 03/16/2010 DESIREE SPENCE MD N 627.9 MENOPAUSAL DISORDER 03/16/2010 DESIREE SPENCE MD N 787.20 difficulty swallowing (dysphagia) 03/16/2010 DESIREE SPENCE MD N 627.9 MENOPAUSAL DISORDER 03/16/2010 DESIREE SPENCE MD N 787.20 difficulty swallowing (dysphagia) 03/26/2010 KELY THEODORE MD 296.32 MO DEPRESSIVE RECURRENT MODERATE 03/26/2010 KELY THEODORE MD 296.32 MO DEPRESSIVE RECURRENT MODERATE 03/26/2010 296.32 MO DEPRESSIVE RECURRENT MODERATE 03/26/2010 KIRK YANEZ DO 296.32 MO DEPRESSIVE RECURRENT MODERATE 03/26/2010 JEREMIAH CANSECO APRN 296.32 MO DEPRESSIVE RECURRENT MODERATE 03/26/2010 296.32 MO DEPRESSIVE RECURRENT MODERATE 03/26/2010 296.32 MO DEPRESSIVE RECURRENT MODERATE 03/26/2010 296.32 MO DEPRESSIVE RECURRENT MODERATE 03/26/2010 KELY THEODORE MD 296.32 MO DEPRESSIVE RECURRENT MODERATE 03/26/2010 PATRICIA LYNCH APRN 296.32 MO DEPRESSIVE RECURRENT MODERATE 03/26/2010 KIRK YANEZ DO 296.32 MO DEPRESSIVE RECURRENT MODERATE 03/26/2010 YANEZ DO, KIRK K 296.32 MO DEPRESSIVE RECURRENT MODERATE 03/26/2010 YANEZ DO, KIRK K 296.32 MO DEPRESSIVE RECURRENT MODERATE 03/26/2010 HARLEEN BALBIRJEREMIAH 296.32 MO DEPRESSIVE RECURRENT MODERATE 03/26/2010 YANEZ DO, KIRK K 296.32 MO DEPRESSIVE RECURRENT MODERATE 03/26/2010 YANEZ DO, KIRK K 296.32 MO DEPRESSIVE RECURRENT MODERATE 03/26/2010 DESIREE SPENCE MD N 296.32 MO DEPRESSIVE RECURRENT MODERATE 03/26/2010 DESIREE SPENCE MD N 296.32 MO DEPRESSIVE RECURRENT MODERATE 03/26/2010 DESIREE SPENCE MD N 296.32 MO DEPRESSIVE RECURRENT MODERATE 03/26/2010 ALDEN FOOT AND ANKLE SURGEON, CHARISSA R 296.32 MO DEPRESSIVE RECURRENT MODERATE 03/26/2010 ALDEN FOOT AND ANKLE SURGEON, CHARISSA R 296.32 MO DEPRESSIVE RECURRENT MODERATE 03/26/2010 ALDEN FOOT AND ANKLE SURGEON, CHARISSA R 296.32 MO DEPRESSIVE RECURRENT MODERATE 03/26/2010 YANEZ DO, KIRK K 296.32 MO DEPRESSIVE RECURRENT MODERATE 03/26/2010 ALDEN FOOT AND ANKLE SURGEON, CHARISSA R 296.32 MO DEPRESSIVE RECURRENT MODERATE 03/26/2010 YANEZ DO, KIRK K 296.32 MO DEPRESSIVE RECURRENT MODERATE 03/26/2010 YANEZ DO, KIRK K 296.32 MO DEPRESSIVE RECURRENT MODERATE 03/26/2010 ALDEN FOOT AND ANKLE SURGEON, CHARISSA R 296.32 MO DEPRESSIVE RECURRENT MODERATE 03/26/2010 DANIELLA MCGREGOR, [place] A 296.32 MO DEPRESSIVE RECURRENT MODERATE 03/26/2010 DANIELLA MCGREGOR, [place] A 296.32 MO DEPRESSIVE RECURRENT MODERATE 03/26/2010 DESIREE SPENCE MD N 296.32 MO DEPRESSIVE RECURRENT MODERATE 03/26/2010 DESIREE SPENCE MD N 296.32 MO DEPRESSIVE RECURRENT MODERATE 03/26/2010 DESIREE SPENCE MD N 296.32 MO DEPRESSIVE RECURRENT MODERATE 03/26/2010 DESIREE SPENCE MD N 296.32 MO DEPRESSIVE RECURRENT MODERATE 03/26/2010 DESIREE SPENCE MD N 296.32 MO DEPRESSIVE RECURRENT MODERATE 03/26/2010 DESIREE SPENCE MD N 296.32 MO DEPRESSIVE RECURRENT MODERATE 03/26/2010 DESIREE SPENCE MD N 296.32 MO DEPRESSIVE RECURRENT MODERATE 03/26/2010 DESIREE SPENCE MD N 296.32 MO DEPRESSIVE RECURRENT MODERATE 03/26/2010 DESIREE SPENCE MD N 296.32 MO DEPRESSIVE RECURRENT MODERATE 03/26/2010 DESIREE SPENCE MD N 296.32 MO DEPRESSIVE RECURRENT MODERATE 05/12/2010 KELY THEODORE MD 380.4 CERUMEN IMPACTION - BOTH EARS 05/12/2010 KELY THEODORE MD 460 COMMON COLD 05/12/2010 KELY THEODORE MD 380.4 CERUMEN IMPACTION - BOTH EARS 05/12/2010 KELY THEODORE MD 460 COMMON COLD 05/12/2010 380.4 CERUMEN IMPACTION - BOTH EARS 05/12/2010 460 COMMON COLD 05/12/2010 YANEZ DO, KIKR K 380.4 CERUMEN IMPACTION - BOTH EARS 05/12/2010 YANEZ DO, KIRK K 460 COMMON COLD 05/12/2010 JEREMIAH CANSECO APRN 380.4 CERUMEN IMPACTION - BOTH EARS 05/12/2010 JEREMIAH CANSECO APRN 460 COMMON COLD 05/12/2010 380.4 CERUMEN IMPACTION - BOTH EARS 05/12/2010 460 COMMON COLD 05/12/2010 380.4 CERUMEN IMPACTION - BOTH EARS 05/12/2010 460 COMMON COLD 05/12/2010 380.4 CERUMEN IMPACTION - BOTH EARS 05/12/2010 460 COMMON COLD 05/12/2010 KELY THEODORE MD 380.4 CERUMEN IMPACTION - BOTH EARS 05/12/2010 KELY THEODORE MD 460 COMMON COLD 05/12/2010 PATRICIA LYNCH APRN 380.4 CERUMEN IMPACTION - BOTH EARS 05/12/2010 PATRICIA LYNCH APRN 460 COMMON COLD 05/12/2010 YANEZ DO, KIRK K 380.4 CERUMEN IMPACTION - BOTH EARS 05/12/2010 YANEZ DO, KIRK K 460 COMMON COLD 05/12/2010 YANEZ DO, KIRK K 380.4 CERUMEN IMPACTION - BOTH EARS 05/12/2010 YANEZ DO, KIRK K 460 COMMON COLD 05/12/2010 YANEZ DO, KIRK K 380.4 CERUMEN IMPACTION - BOTH EARS 05/12/2010 YANEZ DO, KIRK K 460 COMMON COLD 05/12/2010 JEREMIAH CANSECO APRN 380.4 CERUMEN IMPACTION - BOTH EARS 05/12/2010 JEREMIAH CANSECO APRN 460 COMMON COLD 05/12/2010 YANEZ DO, KIRK K 380.4 CERUMEN IMPACTION - BOTH EARS 05/12/2010 YANEZ DO, KIRK K 460 COMMON COLD 05/12/2010 YANEZ DO, KIRK K 380.4 CERUMEN IMPACTION - BOTH EARS 05/12/2010 YANEZ DO, KIRK K 460 COMMON COLD 05/12/2010 DESIREE SPENCE MD 380.4 CERUMEN IMPACTION - BOTH EARS 05/12/2010 JORDY CHRISTIAN, DESIREE N 460 COMMON COLD 05/12/2010 JORDY CHRISTIAN, DESIREE N 380.4 CERUMEN IMPACTION - BOTH EARS 05/12/2010 JORDY CHRISTIAN, DESIREE N 460 COMMON COLD 05/12/2010 DESIREE SPENCE MD N 380.4 CERUMEN IMPACTION - BOTH EARS 05/12/2010 JORDY CHRISTIAN, DESIREE N 460 COMMON COLD 05/12/2010 ALDEN FOOT AND ANKLE SURGEON, CHARISSA R 380.4 CERUMEN IMPACTION - BOTH EARS 05/12/2010 ALDEN FOOT AND ANKLE SURGEON, CHARISSA R 460 COMMON COLD 05/12/2010 ADLEN FOOT AND ANKLE SURGEON, CHARISSA R 380.4 CERUMEN IMPACTION - BOTH EARS 05/12/2010 ALDEN FOOT AND ANKLE SURGEON, CHARISSA R 460 COMMON COLD 05/12/2010 ALDEN FOOT AND ANKLE SURGEON, CHARISSA R 380.4 CERUMEN IMPACTION - BOTH EARS 05/12/2010 ALDEN FOOT AND ANKLE SURGEON, CHARISSA R 460 COMMON COLD 05/12/2010 YANEZ DO, KIRK K 380.4 CERUMEN IMPACTION - BOTH EARS 05/12/2010 YANEZ DO, KIRK K 460 COMMON COLD 05/12/2010 ALDEN FOOT AND ANKLE SURGEON, CHARISSA R 380.4 CERUMEN IMPACTION - BOTH EARS 05/12/2010 ALDEN FOOT AND ANKLE SURGEON, CHARISSA R 460 COMMON COLD 05/12/2010 YANEZ DO, KIRK K 380.4 CERUMEN IMPACTION - BOTH EARS 05/12/2010 YANEZ DO, KIRK K 460 COMMON COLD 05/12/2010 YANEZ DO, KIRK K 380.4 CERUMEN IMPACTION - BOTH EARS 05/12/2010 YANEZ DO, KIRK K 460 COMMON COLD 05/12/2010 ALDEN FOOT AND ANKLE SURGEON, CHARISSA R 380.4 CERUMEN IMPACTION - BOTH EARS 05/12/2010 ALDEN FOOT AND ANKLE SURGEON, CHARISSA R 460 COMMON COLD 05/12/2010 DANIELLA FOOT AND ANKLE SURGEON, [place] A 380.4 CERUMEN IMPACTION - BOTH EARS 05/12/2010 DANIELLA FOOT AND ANKLE SURGEON, [place] A 460 COMMON COLD 05/12/2010 DANIELLA FOOT AND ANKLE SURGEON, [place] A 380.4 CERUMEN IMPACTION - BOTH EARS 05/12/2010 DANIELLA FOOT AND ANKLE SURGEON, [place] A 460 COMMON COLD 05/12/2010 DESIREE SPENCE MD N 380.4 CERUMEN IMPACTION - BOTH EARS 05/12/2010 DESIREE SPENCE MD N 460 COMMON COLD 05/12/2010 DESIREE SPENCE MD N 380.4 CERUMEN IMPACTION - BOTH EARS 05/12/2010 DESIREE SPECNE MD N 460 COMMON COLD 05/12/2010 DESIREE SPENCE MD N 380.4 CERUMEN IMPACTION - BOTH EARS 05/12/2010 DESIREE SPENCE MD N 460 COMMON COLD 05/12/2010 DESIREE SPENCE MD N 380.4 CERUMEN IMPACTION - BOTH EARS 05/12/2010 DESIREE SPENCE MD N 460 COMMON COLD 05/12/2010 DESIREE SPENCE MD N 380.4 CERUMEN IMPACTION - BOTH EARS 05/12/2010 DESIREE SPENCE MD N 460 COMMON COLD 05/12/2010 DESIREE SPENCE MD N 380.4 CERUMEN IMPACTION - BOTH EARS 05/12/2010 DESIREE SPENCE MD N 460 COMMON COLD 05/12/2010 DESIREE SPENCE MD N 380.4 CERUMEN IMPACTION - BOTH EARS 05/12/2010 DESIREE SPENCE MD N 460 COMMON COLD 05/12/2010 DESIREE SPENCE MD N 380.4 CERUMEN IMPACTION - BOTH EARS 05/12/2010 DESIREE SPENCE MD N 460 COMMON COLD 05/12/2010 DESIREE SPENCE MD N 380.4 CERUMEN IMPACTION - BOTH EARS 05/12/2010 DESIREE SPENCE MD N 460 COMMON COLD 05/12/2010 DESIREE SPENCE MD N 380.4 CERUMEN IMPACTION - BOTH EARS 05/12/2010 DESIREE SPENCE MD N 460 COMMON COLD 11/16/2010 KELY THEODORE MD 706.3 SEBORRHEA 11/16/2010 KELY THEODORE MD 724.5 BACKACHE 11/16/2010 KELY THEODORE MD 706.3 SEBORRHEA 11/16/2010 KELY THEODORE MD 724.5 BACKACHE 11/16/2010 706.3 SEBORRHEA 11/16/2010 724.5 BACKACHE 11/16/2010 YANEZ DO, KIRK K 706.3 SEBORRHEA 11/16/2010 YANEZ DO, KIRK K 724.5 BACKACHE 11/16/2010 CANSECO APRN, JEREMIAH LIZETTE 706.3 SEBORRHEA 11/16/2010 CANSECO BALBIR, JEREMIAH LIZETTE 724.5 BACKACHE 11/16/2010 706.3 SEBORRHEA 11/16/2010 724.5 BACKACHE 11/16/2010 706.3 SEBORRHEA 11/16/2010 724.5 BACKACHE 11/16/2010 706.3 SEBORRHEA 11/16/2010 724.5 BACKACHE 11/16/2010 KELY THEODORE MD 706.3 SEBORRHEA 11/16/2010 KELY THEODORE MD 724.5 BACKACHE 11/16/2010 PATRICIA LYNCH APRN 706.3 SEBORRHEA 11/16/2010 PATRICIA LYNCH APRN 724.5 BACKACHE 11/16/2010 YANEZ DO, KIRK K 706.3 SEBORRHEA 11/16/2010 YANEZ DO, KIRK K 724.5 BACKACHE 11/16/2010 YANEZ DO, KIRK K 706.3 SEBORRHEA 11/16/2010 YANEZ DO, KIRK K 724.5 BACKACHE 11/16/2010 YANEZ DO, KIRK K 706.3 SEBORRHEA 11/16/2010 YANEZ DO, KIRK K 724.5 BACKACHE 11/16/2010 CANSECO FOOT AND ANKLE SURGEON, JEREMIAH LIZETTE 706.3 SEBORRHEA 11/16/2010 CANSECO BALBIR, JEREMIAH LIZETTE 724.5 BACKACHE 11/16/2010 YANEZ DO, KIRK K 706.3 SEBORRHEA 11/16/2010 YANEZ DO, KIRK K 724.5 BACKACHE 11/16/2010 YANEZ DO, KIRK K 706.3 SEBORRHEA 11/16/2010 YANEZ DO, KIRK K 724.5 BACKACHE 11/16/2010 JORDY CHRISTIAN, DESIREE N 706.3 SEBORRHEA 11/16/2010 JORDY CHRISTIAN, DESIREE N 724.5 BACKACHE 11/16/2010 JORDY CHRISTIAN, DESIREE N 706.3 SEBORRHEA 11/16/2010 JORDY CHRISTIAN, DESIREE N 724.5 BACKACHE 11/16/2010 JORDY CHRISTIAN, DESIREE N 706.3 SEBORRHEA 11/16/2010 JORDY CHRISTIAN, DESIREE N 724.5 BACKACHE 11/16/2010 ALDEN FOOT AND ANKLE SURGEON, CHARISSA R 706.3 SEBORRHEA 11/16/2010 ALDEN FOOT AND ANKLE SURGEON, HCARISSA R 724.5 BACKACHE 11/16/2010 ALDEN FOOT AND ANKLE SURGEON, CHARISSA R 706.3 SEBORRHEA 11/16/2010 ALDEN FOOT AND ANKLE SURGEON, CHARISSA R 724.5 BACKACHE 11/16/2010 ALDEN FOOT AND ANKLE SURGEON, CHARISSA R 706.3 SEBORRHEA 11/16/2010 ALDEN FOOT AND ANKLE SURGEON, CHARISSA R 724.5 BACKACHE 11/16/2010 YANEZ DO, KIRK K 706.3 SEBORRHEA 11/16/2010 YANEZ DO, KIRK K 724.5 BACKACHE 11/16/2010 ALDEN FOOT AND ANKLE SURGEON, CHARISSA R 706.3 SEBORRHEA 11/16/2010 ALDEN FOOT AND ANKLE SURGEON, CHARISSA R 724.5 BACKACHE 11/16/2010 YANEZ DO, KIRK K 706.3 SEBORRHEA 11/16/2010 YANEZ DO, KIRK K 724.5 BACKACHE 11/16/2010 YANEZ DO, KIRK K 706.3 SEBORRHEA 11/16/2010 YANEZ DO, KIRK K 724.5 BACKACHE 11/16/2010 ALDEN FOOT AND ANKLE SURGEON, CHARISSA R 706.3 SEBORRHEA 11/16/2010 ALDEN FOOT AND ANKLE SURGEON, CHARISSA R 724.5 BACKACHE 11/16/2010 DANIELLA FOOT AND ANKLE SURGEON, [place] A 706.3 SEBORRHEA 11/16/2010 DANIELLA FOOT AND ANKLE SURGEON, [place] A 724.5 BACKACHE 11/16/2010 DANIELLA FOOT AND ANKLE SURGEON, [place] A 706.3 SEBORRHEA 11/16/2010 DANIELLA FOOT AND ANKLE SURGEON, [place] A 724.5 BACKACHE 11/16/2010 JORDY CHRISTIAN, DESIREE N 706.3 SEBORRHEA 11/16/2010 JORDY CHRISTIAN, DESIREE N 724.5 BACKACHE 11/16/2010 JORDY CHRISTIAN, DESIREE N 706.3 SEBORRHEA 11/16/2010 JORDY CHRISTIAN, DESIREE N 724.5 BACKACHE 11/16/2010 JORDY CHRISTIAN, DESIREE N 706.3 SEBORRHEA 11/16/2010 JORDY CHRISTIAN, DESIREE N 724.5 BACKACHE 11/16/2010 JORDY CHRISTIAN, DESIREE N 706.3 SEBORRHEA 11/16/2010 JORDY CHRISTIAN, DESIREE N 724.5 BACKACHE 11/16/2010 JORDY CHRISTIAN, DESIREE N 706.3 SEBORRHEA 11/16/2010 JORDY CHRISTIAN, DESIREE N 724.5 BACKACHE 11/16/2010 JORDY CHRISTIAN, DESIREE N 706.3 SEBORRHEA 11/16/2010 JORDY CHRISTIAN, DESIREE N 724.5 BACKACHE 11/16/2010 JORDY CHRISTIAN, DESIREE N 706.3 SEBORRHEA 11/16/2010 JORDY CHRISTIAN, DESIREE N 724.5 BACKACHE 11/16/2010 JORDY CHRISTIAN, DESIREE N 706.3 SEBORRHEA 11/16/2010 JORDY CHRISTIAN, DESIREE N 724.5 BACKACHE 11/16/2010 JORDY CHRISTIAN, DESIREE N 706.3 SEBORRHEA 11/16/2010 JORDY CHRISTIAN, DESIREE N 724.5 BACKACHE 11/16/2010 JORDY CHRISTIAN, DESIREE N 706.3 SEBORRHEA 11/16/2010 JORDY CHRISTIAN, DESIREE N 724.5 BACKACHE 01/12/2011 KELY THEODORE MD 300.00 anxiety 01/12/2011 KELY THEODORE MD 300.00 anxiety 01/12/2011 300.00 anxiety 01/12/2011 KIRK YANEZ DO 300.00 anxiety 01/12/2011 JEREMIAH CANSECO APRN 300.00 anxiety 01/12/2011 300.00 anxiety 01/12/2011 300.00 anxiety 01/12/2011 300.00 anxiety 01/12/2011 KELY THEODORE MD 300.00 anxiety 01/12/2011 PATRICIA LYNCH APRN 300.00 anxiety 01/12/2011 KIRK YANEZ DO 300.00 anxiety 01/12/2011 YANEZ DO, KIRK K 300.00 anxiety 01/12/2011 YANEZ DO, KIRK K 300.00 anxiety 01/12/2011 CANSECO FOOT AND ANKLE SURGEONJEREMIAH 300.00 anxiety 01/12/2011 YANEZ DO, KIRK K 300.00 anxiety 01/12/2011 YANEZ DO, KIRK K 300.00 anxiety 01/12/2011 JORDY CHRISTIAN, DESIREE N 300.00 anxiety 01/12/2011 DESIREE SPENCE MD N 300.00 anxiety 01/12/2011 JORDY CHRISTIAN, DESIREE N 300.00 anxiety 01/12/2011 ALDEN FOOT AND ANKLE SURGEON, CHARISSA R 300.00 anxiety 01/12/2011 ALDEN FOOT AND ANKLE SURGEON, CHARISSA R 300.00 anxiety 01/12/2011 ALDEN FOOT AND ANKLE SURGEON, CHARISSA R 300.00 anxiety 01/12/2011 YANEZ DO, KIRK K 300.00 anxiety 01/12/2011 ALDEN FOOT AND ANKLE SURGEON, CHARISSA R 300.00 anxiety 01/12/2011 YANEZ DO, KIRK K 300.00 anxiety 01/12/2011 YANEZ DO, KIRK K 300.00 anxiety 01/12/2011 ALDEN FOOT AND ANKLE SURGEON, CHARISSA R 300.00 anxiety 01/12/2011 DANIELLA FOOT AND ANKLE SURGEON, [place] A 300.00 anxiety 01/12/2011 DANIELLA FOOT AND ANKLE SURGEON, [place] A 300.00 anxiety 01/12/2011 JORDY CHRISTIAN, DESIREE N 300.00 anxiety 01/12/2011 JORDY CHRISTIAN, DESIREE N 300.00 anxiety 01/12/2011 DESIREE SPENCE MD 300.00 anxiety 01/12/2011 DESIREE SPENCE MD 300.00 anxiety 01/12/2011 DESIREE SPENCE MD N 300.00 anxiety 01/12/2011 DESIREE SPENCE MD N 300.00 anxiety 01/12/2011 DESIREE SPENCE MD N 300.00 anxiety 01/12/2011 DESIREE SPENCE MD N 300.00 anxiety 01/12/2011 DESIREE SPENCE MD N 300.00 anxiety 01/12/2011 DESIREE SPENCE MD N 300.00 anxiety 03/12/2011 KELY THEODORE MD 300.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 03/12/2011 KELY THEODORE MD 300.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 03/12/2011 300.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 03/12/2011 YANEZ DO, KIRK K 300.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 03/12/2011 HARLEEN MCGREGOR JEREMIAH LIZETTE 300.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 03/12/2011 300.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 03/12/2011 300.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 03/12/2011 300.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 03/12/2011 KELY THEODORE MD 300.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 03/12/2011 PATRICIA LYNCH APRN 300.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 03/12/2011 YANEZ DOKIRK K 300.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 03/12/2011 YANEZ DO, KIRK K 300.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 03/12/2011 YANEZ DO, KIRK K 300.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 03/12/2011 HARLEEN MCGREGOR JEREMIAH LIZETTE 300.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 03/12/2011 YANEZ DO KIRK K 300.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 03/12/2011 YANEZ DO, KIRK K 300.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 03/12/2011 DESIREE SPENCE MD 300.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 03/12/2011 DESIREE SPENCE MD 300.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 03/12/2011 DESIREE SPENCE MD 300.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 03/12/2011 DAVI RUANO APRNINA R 300.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 03/12/2011 DAVI RUANO APRNINA R 300.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 03/12/2011 ALDEN MCGREGOR CHARISSA R 300.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 03/12/2011 YANEZ DOTAHMINAA K 300.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 03/12/2011 ALDEN MCGREGOR CHARISSA R 300.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 03/12/2011 TAHMINA YANEZ DOA K 300.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 03/12/2011 YANEZ DOTAHMINAA K 300.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 03/12/2011 ALDEN MCGREGOR CHARISSA R 300.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 03/12/2011 [place] BREWER APRN A 300.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 03/12/2011 [place] BREWER APRN A 300.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 03/12/2011 DESIREE SPENCE MD 300.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 03/12/2011 DESIREE SPENCE MD 300.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 03/12/2011 DESIREE SPENCE MD 300.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 03/12/2011 DESIREE SPENCE MD 300.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 03/12/2011 DESIREE SPENCE MD N 300.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 03/12/2011 DESIREE SPENCE MD N 300.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 03/12/2011 DESIREE SPENCE MD N 300.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 03/12/2011 DESIREE SPENCE MD 300.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 03/12/2011 DESIREE SPENCE MD 300.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 03/12/2011 DESIREE SPENCE MD 300.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 05/20/2011 KELY THEODORE MD 695.3 Rosacea 05/20/2011 KELY THEODORE MD 695.3 Rosacea 05/20/2011 695.3 Rosacea 05/20/2011 KIRK YANEZ DO 695.3 Rosacea 05/20/2011 JEREMIAH CANSECO APRN 695.3 Rosacea 05/20/2011 695.3 Rosacea 05/20/2011 695.3 Rosacea 05/20/2011 695.3 Rosacea 05/20/2011 KELY THEODORE MD 695.3 Rosacea 05/20/2011 PATRICIA LYNCH APRN 695.3 Rosacea 05/20/2011 YANEZ DO, KIRK Shultz 695.3 Rosacea 05/20/2011 YANEZ DO, KIRK K 695.3 Rosacea 05/20/2011 YANEZ DO, KIRK Shultz 695.3 Rosacea 05/20/2011 JEREMIAH CANSECO APRN 695.3 Rosacea 05/20/2011 YANEZ DO, KIRK K 695.3 Rosacea 05/20/2011 YANEZ DO, KIRK K 695.3 Rosacea 05/20/2011 DESIREE SPENCE MD 695.3 Rosacea 05/20/2011 DESIREE SPENCE MD 695.3 Rosacea 05/20/2011 DESIREE SPENCE MD 695.3 Rosacea 05/20/2011 ALDEN MCGREGOR, CHARISSA Gastelum 695.3 Rosacea 05/20/2011 CHARISSA RUANO APRN 695.3 Rosacea 05/20/2011 ALDEN FOOT AND ANKLE SURGEON, CHARISSA R 695.3 Rosacea 05/20/2011 YANEZ DO, KIRK K 695.3 Rosacea 05/20/2011 ALDEN FOOT AND ANKLE SURGEON, CHARISSA R 695.3 Rosacea 05/20/2011 YANEZ DO, KIRK K 695.3 Rosacea 05/20/2011 YANEZ DO, KIRK K 695.3 Rosacea 05/20/2011 ALDEN FOOT AND ANKLE SURGEON, CHARISSA R 695.3 Rosacea 05/20/2011 DANIELLA FOOT AND ANKLE SURGEON, SANFORD A 695.3 Rosacea 05/20/2011 DANIELLA FOOT AND ANKLE SURGEON, SANFORD A 695.3 Rosacea 05/20/2011 JORDY CHRISTIAN, DESIREE N 695.3 Rosacea 05/20/2011 JORDY CHRISTIAN, DESIREE N 695.3 Rosacea 05/20/2011 JORDY CHRISTIAN, DESIREE N 695.3 Rosacea 05/20/2011 JORDY CHRISTIAN, DESIREE N 695.3 Rosacea 05/20/2011 JORDY CHRISTIAN, DESIREE N 695.3 Rosacea 05/20/2011 JORDY CHRISTIAN, DESIREE N 695.3 Rosacea 05/20/2011 JORDY CHRISTIAN, DESIREE N 695.3 Rosacea 05/20/2011 JORDY CHRISTIAN, DESIREE N 695.3 Rosacea 05/20/2011 JORDY CHRISTIAN, DESIREE N 695.3 Rosacea 05/20/2011 JORDY CHRISTIAN, DESIREE N 695.3 Rosacea 06/11/2011 KELY THEODORE MD 558.9 Other And Unspecified Noninfectious Gastroenteritis And Colitis 06/11/2011 KELY THEODORE MD 558.9 Other And Unspecified Noninfectious Gastroenteritis And Colitis 06/11/2011 558.9 Other And Unspecified Noninfectious Gastroenteritis And Colitis 06/11/2011 KIRK YANEZ DO 558.9 Other And Unspecified Noninfectious Gastroenteritis And Colitis 06/11/2011 JEREMIAH CANSECO APRN 558.9 Other And Unspecified Noninfectious Gastroenteritis And Colitis 06/11/2011 558.9 Other And Unspecified Noninfectious Gastroenteritis And Colitis 06/11/2011 558.9 Other And Unspecified Noninfectious Gastroenteritis And Colitis 06/11/2011 558.9 Other And Unspecified Noninfectious Gastroenteritis And Colitis 06/11/2011 KELY THEODORE MD 558.9 Other And Unspecified Noninfectious Gastroenteritis And Colitis 06/11/2011 PATRICIA LYNCH APRN 558.9 Other And Unspecified Noninfectious Gastroenteritis And Colitis 06/11/2011 RNEATA SPIVEY KIRK K 558.9 Other And Unspecified Noninfectious Gastroenteritis And Colitis 06/11/2011 YANEZ DO KIRK K 558.9 Other And Unspecified Noninfectious Gastroenteritis And Colitis 06/11/2011 YANEZ DO KIRK K 558.9 Other And Unspecified Noninfectious Gastroenteritis And Colitis 06/11/2011 JEREMIAH CANSECO APRN 558.9 Other And Unspecified Noninfectious Gastroenteritis And Colitis 06/11/2011 KIRK YANEZ DO K 558.9 Other And Unspecified Noninfectious Gastroenteritis And Colitis 06/11/2011 KIRK YANEZ DO K 558.9 Other And Unspecified Noninfectious Gastroenteritis And Colitis 06/11/2011 DESIREE SPENCE MD N 558.9 Other And Unspecified Noninfectious Gastroenteritis And Colitis 06/11/2011 DESIREE SPENCE MD N 558.9 Other And Unspecified Noninfectious Gastroenteritis And Colitis 06/11/2011 DESIREE SPENCE MD 558.9 Other And Unspecified Noninfectious Gastroenteritis And Colitis 06/11/2011 CHARISSA RUANO APRN R 558.9 Other And Unspecified Noninfectious Gastroenteritis And Colitis 06/11/2011 CHARISSA RUANO APRN R 558.9 Other And Unspecified Noninfectious Gastroenteritis And Colitis 06/11/2011 DAVI RUANO APRNINA R 558.9 Other And Unspecified Noninfectious Gastroenteritis And Colitis 06/11/2011 TAHMINA YANEZ DOA K 558.9 Other And Unspecified Noninfectious Gastroenteritis And Colitis 06/11/2011 DAVI RUANO APRNINA R 558.9 Other And Unspecified Noninfectious Gastroenteritis And Colitis 06/11/2011 TAHMINA YANEZ DOA K 558.9 Other And Unspecified Noninfectious Gastroenteritis And Colitis 06/11/2011 TAHMINA YANEZ DOA K 558.9 Other And Unspecified Noninfectious Gastroenteritis And Colitis 06/11/2011 DAVI RUANO APRNINA R 558.9 Other And Unspecified Noninfectious Gastroenteritis And Colitis 06/11/2011 SANFORD BREWER APRN A 558.9 Other And Unspecified Noninfectious Gastroenteritis And Colitis 06/11/2011 SANFORD BREWER APRN A 558.9 Other And Unspecified Noninfectious Gastroenteritis And Colitis 06/11/2011 DESIREE SPENCE MD N 558.9 Other And Unspecified Noninfectious Gastroenteritis And Colitis 06/11/2011 DESIREE SPENCE MD N 558.9 Other And Unspecified Noninfectious Gastroenteritis And Colitis 06/11/2011 DESIREE SPENCE MD N 558.9 Other And Unspecified Noninfectious Gastroenteritis And Colitis 06/11/2011 DESIREE SPENCE MD N 558.9 Other And Unspecified Noninfectious Gastroenteritis And Colitis 06/11/2011 DESIREE SPENCE MD N 558.9 Other And Unspecified Noninfectious Gastroenteritis And Colitis 06/11/2011 DESIREE SPENCE MD N 558.9 Other And Unspecified Noninfectious Gastroenteritis And Colitis 06/11/2011 DESIREE SPENCE MD N 558.9 Other And Unspecified Noninfectious Gastroenteritis And Colitis 06/11/2011 DESIREE SPENCE MD N 558.9 Other And Unspecified Noninfectious Gastroenteritis And Colitis 06/11/2011 DESIREE SPENCE MD N 558.9 Other And Unspecified Noninfectious Gastroenteritis And Colitis 06/11/2011 DESIREE SPENCE MD N 558.9 Other And Unspecified Noninfectious Gastroenteritis And Colitis 06/15/2011 KELY THEODORE MD 211.3 Colon Polyp 06/15/2011 KELY THEODORE MD V76.12 Mammogram Screening 06/15/2011 KELY THEODORE MD V76.2 Cervical Cancer Screening (pap Smear) 06/15/2011 KELY THEODORE MD 211.3 Colon Polyp 06/15/2011 KELY THEODORE MD V76.12 Mammogram Screening 06/15/2011 KELY THEODOER MD V76.2 Cervical Cancer Screening (pap Smear) 06/15/2011 211.3 Colon Polyp 06/15/2011 V76.12 Mammogram Screening 06/15/2011 V76.2 Cervical Cancer Screening (pap Smear) 06/15/2011 YANEZ DO, KIRK K 211.3 Colon Polyp 06/15/2011 YANEZ DO, KIRK K V76.12 Mammogram Screening 06/15/2011 YANEZ DO, KIRK K V76.2 Cervical Cancer Screening (pap Smear) 06/15/2011 CANSECO BALBIR JEREMIAH BAUER 211.3 Colon Polyp 06/15/2011 HARLEEN BALBIR JEREMIAH BAUER V76.12 Mammogram Screening 06/15/2011 HARLEEN BALBIR JEREMIAH BAUER V76.2 Cervical Cancer Screening (pap Smear) 06/15/2011 211.3 Colon Polyp 06/15/2011 V76.12 Mammogram Screening 06/15/2011 V76.2 Cervical Cancer Screening (pap Smear) 06/15/2011 211.3 Colon Polyp 06/15/2011 V76.12 Mammogram Screening 06/15/2011 V76.2 Cervical Cancer Screening (pap Smear) 06/15/2011 211.3 Colon Polyp 06/15/2011 V76.12 Mammogram Screening 06/15/2011 V76.2 Cervical Cancer Screening (pap Smear) 06/15/2011 KELY THEODORE MD 211.3 Colon Polyp 06/15/2011 KELY THEODORE MD V76.12 Mammogram Screening 06/15/2011 KELY THEODORE MD V76.2 Cervical Cancer Screening (pap Smear) 06/15/2011 PATRICIA LYNCH APRN 211.3 Colon Polyp 06/15/2011 PATRICIA LYNCH APRN V76.12 Mammogram Screening 06/15/2011 PATRICIA LYNCH APRN V76.2 Cervical Cancer Screening (pap Smear) 06/15/2011 KIRK YANEZ DO K 211.3 Colon Polyp 06/15/2011 YANEZ DO KIRK K V76.12 Mammogram Screening 06/15/2011 YANEZ DO KIRK K V76.2 Cervical Cancer Screening (pap Smear) 06/15/2011 YANEZ DO KIRK K 211.3 Colon Polyp 06/15/2011 YANEZ DO, KIRK K V76.12 Mammogram Screening 06/15/2011 YANEZ DO, KIRK K V76.2 Cervical Cancer Screening (pap Smear) 06/15/2011 YANEZ DO KIRK K 211.3 Colon Polyp 06/15/2011 YANEZ DO KIRK K V76.12 Mammogram Screening 06/15/2011 YANEZ DO KIRK K V76.2 Cervical Cancer Screening (pap Smear) 06/15/2011 HARLEEN MCGREGOR JEREMIAH LIZETTE 211.3 Colon Polyp 06/15/2011 HARLEEN MCGREGOR JEREMIAH LIZETTE V76.12 Mammogram Screening 06/15/2011 CANSECO APRN, JEREMIAH LIZETTE V76.2 Cervical Cancer Screening (pap Smear) 06/15/2011 YANEZ DO KIRK K 211.3 Colon Polyp 06/15/2011 YANEZ DO KIRK K V76.12 Mammogram Screening 06/15/2011 YANEZ DO, KIRK K V76.2 Cervical Cancer Screening (pap Smear) 06/15/2011 YANEZ DO KIRK K 211.3 Colon Polyp 06/15/2011 YANEZ DO, KIRK K V76.12 Mammogram Screening 06/15/2011 YANEZ DO KIRK K V76.2 Cervical Cancer Screening (pap Smear) 06/15/2011 DESIREE SPENCE MD 211.3 Colon Polyp 06/15/2011 DESIREE SPENCE MD V76.12 Mammogram Screening 06/15/2011 DESIREE SPENCE MD V76.2 Cervical Cancer Screening (pap Smear) 06/15/2011 DESIREE SPENCE MD 211.3 Colon Polyp 06/15/2011 DESIREE SPENCE MD V76.12 Mammogram Screening 06/15/2011 DESIREE SPENCE MD V76.2 Cervical Cancer Screening (pap Smear) 06/15/2011 DESIREE SPENCE MD 211.3 Colon Polyp 06/15/2011 DESIREE SPENCE MD V76.12 Mammogram Screening 06/15/2011 DESIREE SPENCE MD V76.2 Cervical Cancer Screening (pap Smear) 06/15/2011 ALDEN FOOT AND ANKLE SURGEONDAVICHARISSA R 211.3 Colon Polyp 06/15/2011 ALDEN [employer] SURGEON, CHARISSA R V76.12 Mammogram Screening 06/15/2011 ALDEN [employer] SURGEON, CHARISSA R V76.2 Cervical Cancer Screening (pap Smear) 06/15/2011 ALDEN [employer] AND ANK[employer] SURGEON, CHARISSA R 211.3 Colon Polyp 06/15/2011 ALDEN FOOT AND ANKLE SURGEON, CHARISSA R V76.12 Mammogram Screening 06/15/2011 ALDEN [employer] AND ANKLE SURGEON, CHARISSA R V76.2 Cervical Cancer Screening (pap Smear) 06/15/2011 ALDEN MCGREGOR, CHARISSA R 211.3 Colon Polyp 06/15/2011 ALDEN [employer] AND ANKLE SURGEON, CHARISSA R V76.12 Mammogram Screening 06/15/2011 ALDEN [employer] AND ANKLE SURGEON, CHARISSA R V76.2 Cervical Cancer Screening (pap Smear) 06/15/2011 YANEZ DO, KIRK K 211.3 Colon Polyp 06/15/2011 YANEZ DO, KIRK K V76.12 Mammogram Screening 06/15/2011 YANEZ DO, KIRK K V76.2 Cervical Cancer Screening (pap Smear) 06/15/2011 ALDEN MCGREGOR, CHARISSA R 211.3 Colon Polyp 06/15/2011 ALDEN SINHAN, CHARISSA R V76.12 Mammogram Screening 06/15/2011 ALDEN SINHAN, CHARISSA R V76.2 Cervical Cancer Screening (pap Smear) 06/15/2011 YANEZ DO, KIRK K 211.3 Colon Polyp 06/15/2011 YANEZ DO, KIRK K V76.12 Mammogram Screening 06/15/2011 YANEZ DO, KIRK K V76.2 Cervical Cancer Screening (pap Smear) 06/15/2011 YANEZ DO, KIRK K 211.3 Colon Polyp 06/15/2011 YANEZ DO, KIRK K V76.12 Mammogram Screening 06/15/2011 YANEZ DO, KIRK K V76.2 Cervical Cancer Screening (pap Smear) 06/15/2011 DAVI RUANO APRNINA R 211.3 Colon Polyp 06/15/2011 ALDEN MCGREGOR, CHARISSA R V76.12 Mammogram Screening 06/15/2011 ALDEN MCGREGOR, CHARISSA R V76.2 Cervical Cancer Screening (pap Smear) 06/15/2011 SANFORD BREWER APRN A 211.3 Colon Polyp 06/15/2011 DANIELLA MCGREGOR, [place] A V76.12 Mammogram Screening 06/15/2011 DANIELLA MCGREGOR, [place] A V76.2 Cervical Cancer Screening (pap Smear) 06/15/2011 SANFORD BREWER APRN A 211.3 Colon Polyp 06/15/2011 DANIELLA MCGREGOR [place] A V76.12 Mammogram Screening 06/15/2011 DANIELLA MCGREGOR [place] A V76.2 Cervical Cancer Screening (pap Smear) 06/15/2011 DESIREE SPENCE MD 211.3 Colon Polyp 06/15/2011 JORDY MD, DESIREE N V76.12 Mammogram Screening 06/15/2011 DESIREE SPENCE MD V76.2 Cervical Cancer Screening (pap Smear) 06/15/2011 DESIREE SPENCE MD 211.3 Colon Polyp 06/15/2011 DESIREE SPENCE MD V76.12 Mammogram Screening 06/15/2011 DESIREE SPENCE MD V76.2 Cervical Cancer Screening (pap Smear) 06/15/2011 DESIREE SPENCE MD 211.3 Colon Polyp 06/15/2011 DESIREE SPENCE MD V76.12 Mammogram Screening 06/15/2011 DESIREE SPENCE MD V76.2 Cervical Cancer Screening (pap Smear) 06/15/2011 DESIREE SPENCE MD 211.3 Colon Polyp 06/15/2011 DESIREE SPENCE MD V76.12 Mammogram Screening 06/15/2011 DESIREE SPENCE MD V76.2 Cervical Cancer Screening (pap Smear) 06/15/2011 DESIREE SPENCE MD 211.3 Colon Polyp 06/15/2011 DESIREE SPENCE MD V76.12 Mammogram Screening 06/15/2011 DESIREE SPENCE MD V76.2 Cervical Cancer Screening (pap Smear) 06/15/2011 DESIREE SPENCE MD 211.3 Colon Polyp 06/15/2011 DESIREE SPENCE MD V76.12 Mammogram Screening 06/15/2011 DESIREE SPENCE MD V76.2 Cervical Cancer Screening (pap Smear) 06/15/2011 DESIREE SPENCE MD 211.3 Colon Polyp 06/15/2011 DESIREE SPENCE MD V76.12 Mammogram Screening 06/15/2011 DESIREE SPENCE MD V76.2 Cervical Cancer Screening (pap Smear) 06/15/2011 DESIREE SPENCE MD 211.3 Colon Polyp 06/15/2011 DESIREE SPENCE MD V76.12 Mammogram Screening 06/15/2011 DESIREE SPENCE MD V76.2 Cervical Cancer Screening (pap Smear) 06/15/2011 DESIREE SPENCE MD 211.3 Colon Polyp 06/15/2011 DESIREE SPENCE MD V76.12 Mammogram Screening 06/15/2011 DESIREE SPENCE MD V76.2 Cervical Cancer Screening (pap Smear) 06/15/2011 DESIREE SPENCE MD 211.3 Colon Polyp 06/15/2011 DESIREE SPENCE MD V76.12 Mammogram Screening 06/15/2011 DESIREE SPENCE MD V76.2 Cervical Cancer Screening (pap Smear) 07/12/2011 KELY THEODORE MD 300.00 AN ANXIETY UNSPEC 07/12/2011 KELY THEODORE MD 300.00 AN ANXIETY UNSPEC 07/12/2011 300.00 AN ANXIETY UNSPEC 07/12/2011 YANEZ DO, KIRK K 300.00 AN ANXIETY UNSPEC 07/12/2011 JEREMIAH CANSECO APRN 300.00 AN ANXIETY UNSPEC 07/12/2011 300.00 AN ANXIETY UNSPEC 07/12/2011 300.00 AN ANXIETY UNSPEC 07/12/2011 300.00 AN ANXIETY UNSPEC 07/12/2011 KELY THEODORE MD 300.00 AN ANXIETY UNSPEC 07/12/2011 PATRICIA LYNCH APRN 300.00 AN ANXIETY UNSPEC 07/12/2011 YANEZ DO, KIRK K 300.00 AN ANXIETY UNSPEC 07/12/2011 YANEZ DO, KIRK K 300.00 AN ANXIETY UNSPEC 07/12/2011 YANEZ DO, KIRK K 300.00 AN ANXIETY UNSPEC 07/12/2011 JEREMIAH CANSECO APRN 300.00 AN ANXIETY UNSPEC 07/12/2011 YANEZ DO, KIRK K 300.00 AN ANXIETY UNSPEC 07/12/2011 YANEZ DO, KIRK K 300.00 AN ANXIETY UNSPEC 07/12/2011 DESIREE SPENCE MD 300.00 AN ANXIETY UNSPEC 07/12/2011 DESIREE SPENCE MD 300.00 AN ANXIETY UNSPEC 07/12/2011 DESIREE SPENCE MD 300.00 AN ANXIETY UNSPEC 07/12/2011 CHARISSA RUANO APRN R 300.00 AN ANXIETY UNSPEC 07/12/2011 CHARISSA RUANO APRN R 300.00 AN ANXIETY UNSPEC 07/12/2011 CHARISSA RUANO APRN R 300.00 AN ANXIETY UNSPEC 07/12/2011 YANEZ DO, KIRK K 300.00 AN ANXIETY UNSPEC 07/12/2011 CHARISSA RUANO APRN R 300.00 AN ANXIETY UNSPEC 07/12/2011 YANEZ DO, KIRK K 300.00 AN ANXIETY UNSPEC 07/12/2011 KIRK YANEZ DO K 300.00 AN ANXIETY UNSPEC 07/12/2011 AL[employer] SURGEON, CHARISSA R 300.00 AN ANXIETY UNSPEC 07/12/2011 DANIELLA FOOT AND ANKLE SURGEONMEGANSANFORD A 300.00 AN ANXIETY UNSPEC 07/12/2011 DANIELLA SINHAN, [place] A 300.00 AN ANXIETY UNSPEC 07/12/2011 DESIREE SPENCE MD 300.00 AN ANXIETY UNSPEC 07/12/2011 DESIREE SPENCE MD N 300.00 AN ANXIETY UNSPEC 07/12/2011 DESIREE SPENCE MD N 300.00 AN ANXIETY UNSPEC 07/12/2011 DESIREE SPENCE MD N 300.00 AN ANXIETY UNSPEC 07/12/2011 DESIREE SPENCE MD 300.00 AN ANXIETY UNSPEC 07/12/2011 DESIREE SPENCE MD N 300.00 AN ANXIETY UNSPEC 07/12/2011 DESIREE SPENCE MD N 300.00 AN ANXIETY UNSPEC 07/12/2011 DESIREE SPENCE MD 300.00 AN ANXIETY UNSPEC 07/12/2011 DESIREE SPENCE MD N 300.00 AN ANXIETY UNSPEC 07/12/2011 DESIREE SPENCE MD N 300.00 AN ANXIETY UNSPEC 08/30/2011 KELY THEODORE MD V16.0 FAMILY HISTORY OF MALIGNANT NEOPLASM OF GASTROINTESTINAL TRACT 08/30/2011 KELY THEODORE MD V76.51 Colon Cancer Screening 08/30/2011 KELY THEODORE MD V16.0 FAMILY HISTORY OF MALIGNANT NEOPLASM OF GASTROINTESTINAL TRACT 08/30/2011 KELY THEODORE MD V76.51 Colon Cancer Screening 08/30/2011 V16.0 FAMILY HISTORY OF MALIGNANT NEOPLASM OF GASTROINTESTINAL TRACT 08/30/2011 V76.51 Colon Cancer Screening 08/30/2011 KIRK YANEZ DO K V16.0 FAMILY HISTORY OF MALIGNANT NEOPLASM OF GASTROINTESTINAL TRACT 08/30/2011 KIRK YANEZ DO K V76.51 Colon Cancer Screening 08/30/2011 JEREMIAH CANSECO APRN V16.0 FAMILY HISTORY OF MALIGNANT NEOPLASM OF GASTROINTESTINAL TRACT 08/30/2011 JEREMIAH CANSECO APRN V76.51 Colon Cancer Screening 08/30/2011 V16.0 FAMILY HISTORY OF MALIGNANT NEOPLASM OF GASTROINTESTINAL TRACT 08/30/2011 V76.51 Colon Cancer Screening 08/30/2011 V16.0 FAMILY HISTORY OF MALIGNANT NEOPLASM OF GASTROINTESTINAL TRACT 08/30/2011 V76.51 Colon Cancer Screening 08/30/2011 V16.0 FAMILY HISTORY OF MALIGNANT NEOPLASM OF GASTROINTESTINAL TRACT 08/30/2011 V76.51 Colon Cancer Screening 08/30/2011 KELY THEODORE MD V16.0 FAMILY HISTORY OF MALIGNANT NEOPLASM OF GASTROINTESTINAL TRACT 08/30/2011 KELY THEODORE MD V76.51 Colon Cancer Screening 08/30/2011 PATRICIA LYNCH APRN V16.0 FAMILY HISTORY OF MALIGNANT NEOPLASM OF GASTROINTESTINAL TRACT 08/30/2011 PATRICIA LYNCH APRN V76.51 Colon Cancer Screening 08/30/2011 YANEZ DO KIRK K V16.0 FAMILY HISTORY OF MALIGNANT NEOPLASM OF GASTROINTESTINAL TRACT 08/30/2011 YANEZ DO KIRK K V76.51 Colon Cancer Screening 08/30/2011 YANEZ DO KIRK K V16.0 FAMILY HISTORY OF MALIGNANT NEOPLASM OF GASTROINTESTINAL TRACT 08/30/2011 YANEZ DO KIRK K V76.51 Colon Cancer Screening 08/30/2011 TAHMINA YANEZ DOA K V16.0 FAMILY HISTORY OF MALIGNANT NEOPLASM OF GASTROINTESTINAL TRACT 08/30/2011 YANEZ DO KIRK K V76.51 Colon Cancer Screening 08/30/2011 JEREMIAH CANSECO APRN V16.0 FAMILY HISTORY OF MALIGNANT NEOPLASM OF GASTROINTESTINAL TRACT 08/30/2011 JEREMIAH CANSECO APRN V76.51 Colon Cancer Screening 08/30/2011 YANEZ DO KIRK K V16.0 FAMILY HISTORY OF MALIGNANT NEOPLASM OF GASTROINTESTINAL TRACT 08/30/2011 YANEZ DO KIRK K V76.51 Colon Cancer Screening 08/30/2011 TAHMINA YANEZ DOA K V16.0 FAMILY HISTORY OF MALIGNANT NEOPLASM OF GASTROINTESTINAL TRACT 08/30/2011 YANEZ DO KIRK K V76.51 Colon Cancer Screening 08/30/2011 DESIREE SPENCE MD V16.0 FAMILY HISTORY OF MALIGNANT NEOPLASM OF GASTROINTESTINAL TRACT 08/30/2011 DESIREE SPENCE MD V76.51 Colon Cancer Screening 08/30/2011 DESIREE SPENCE MD V16.0 FAMILY HISTORY OF MALIGNANT NEOPLASM OF GASTROINTESTINAL TRACT 08/30/2011 DESIREE SPENEC MD V76.51 Colon Cancer Screening 08/30/2011 DESIREE SPENCE MD V16.0 FAMILY HISTORY OF MALIGNANT NEOPLASM OF GASTROINTESTINAL TRACT 08/30/2011 DESIREE SPENCE MD V76.51 Colon Cancer Screening 08/30/2011 ALDEN MCGREGOR, CHARISSA R V16.0 FAMILY HISTORY OF MALIGNANT NEOPLASM OF GASTROINTESTINAL TRACT 08/30/2011 ALDEN MCGREGOR, CHARISSA R V76.51 Colon Cancer Screening 08/30/2011 ALDEN MCGREGOR, CHARISSA R V16.0 FAMILY HISTORY OF MALIGNANT NEOPLASM OF GASTROINTESTINAL TRACT 08/30/2011 ALDEN MCGREGOR, CHARISSA R V76.51 Colon Cancer Screening 08/30/2011 ALDEN MCGREGOR, CHARISSA R V16.0 FAMILY HISTORY OF MALIGNANT NEOPLASM OF GASTROINTESTINAL TRACT 08/30/2011 ALDEN MCGREGOR, CHARISSA R V76.51 Colon Cancer Screening 08/30/2011 YANEZ DO KIRK K V16.0 FAMILY HISTORY OF MALIGNANT NEOPLASM OF GASTROINTESTINAL TRACT 08/30/2011 YANEZ DO KIRK K V76.51 Colon Cancer Screening 08/30/2011 ALDEN MCGREGOR, CHARISSA R V16.0 FAMILY HISTORY OF MALIGNANT NEOPLASM OF GASTROINTESTINAL TRACT 08/30/2011 ALDEN MCGREGOR CHARISSA R V76.51 Colon Cancer Screening 08/30/2011 YANEZ DO KIRK K V16.0 FAMILY HISTORY OF MALIGNANT NEOPLASM OF GASTROINTESTINAL TRACT 08/30/2011 YANEZ DO KIRK K V76.51 Colon Cancer Screening 08/30/2011 YANEZ DO KIRK K V16.0 FAMILY HISTORY OF MALIGNANT NEOPLASM OF GASTROINTESTINAL TRACT 08/30/2011 YANEZ DO KIRK K V76.51 Colon Cancer Screening 08/30/2011 ALDEN MCGREGOR CHARISSA R V16.0 FAMILY HISTORY OF MALIGNANT NEOPLASM OF GASTROINTESTINAL TRACT 08/30/2011 ALDEN MCGREGOR CHARISSA R V76.51 Colon Cancer Screening 08/30/2011 SANFORD BREWER APRN A V16.0 FAMILY HISTORY OF MALIGNANT NEOPLASM OF GASTROINTESTINAL TRACT 08/30/2011 SANFORD BREWER APRN A V76.51 Colon Cancer Screening 08/30/2011 SANFORD BREWER APRN A V16.0 FAMILY HISTORY OF MALIGNANT NEOPLASM OF GASTROINTESTINAL TRACT 08/30/2011 SANFORD BREWER APRN A V76.51 Colon Cancer Screening 08/30/2011 DESIREE SPENCE MD V16.0 FAMILY HISTORY OF MALIGNANT NEOPLASM OF GASTROINTESTINAL TRACT 08/30/2011 DESIREE SPENCE MD V76.51 Colon Cancer Screening 08/30/2011 DESIREE SPENCE MD V16.0 FAMILY HISTORY OF MALIGNANT NEOPLASM OF GASTROINTESTINAL TRACT 08/30/2011 DESIREE SPENCE MD V76.51 Colon Cancer Screening 08/30/2011 DESIREE SPENCE MD V16.0 FAMILY HISTORY OF MALIGNANT NEOPLASM OF GASTROINTESTINAL TRACT 08/30/2011 DESIREE SPENCE MD V76.51 Colon Cancer Screening 08/30/2011 DESIREE SPENCE MD V16.0 FAMILY HISTORY OF MALIGNANT NEOPLASM OF GASTROINTESTINAL TRACT 08/30/2011 DESIREE SPENCE MD V76.51 Colon Cancer Screening 08/30/2011 DESIREE SPENCE MD V16.0 FAMILY HISTORY OF MALIGNANT NEOPLASM OF GASTROINTESTINAL TRACT 08/30/2011 DESIREE SPENCE MD V76.51 Colon Cancer Screening 08/30/2011 DESIREE SPENCE MD V16.0 FAMILY HISTORY OF MALIGNANT NEOPLASM OF GASTROINTESTINAL TRACT 08/30/2011 DESIREE SPENCE MD V76.51 Colon Cancer Screening 08/30/2011 DESIREE SPENCE MD V16.0 FAMILY HISTORY OF MALIGNANT NEOPLASM OF GASTROINTESTINAL TRACT 08/30/2011 DESIREE SPENCE MD V76.51 Colon Cancer Screening 08/30/2011 DESIREE SPENCE MD V16.0 FAMILY HISTORY OF MALIGNANT NEOPLASM OF GASTROINTESTINAL TRACT 08/30/2011 DESIREE SPENCE MD V76.51 Colon Cancer Screening 08/30/2011 DESIREE SPENCE MD V16.0 FAMILY HISTORY OF MALIGNANT NEOPLASM OF GASTROINTESTINAL TRACT 08/30/2011 DESIREE SPENCE MD V76.51 Colon Cancer Screening 08/30/2011 DESIREE SPENCE MD V16.0 FAMILY HISTORY OF MALIGNANT NEOPLASM OF GASTROINTESTINAL TRACT 08/30/2011 DESIREE SPENCE MD V76.51 Colon Cancer Screening 09/27/2011 KELY THEODORE MD 782.0 DISTURBANCE OF SKIN SENSATION 09/27/2011 KELY THEODORE MD 782.0 DISTURBANCE OF SKIN SENSATION 09/27/2011 782.0 DISTURBANCE OF SKIN SENSATION 09/27/2011 KIRK YANEZ DO 782.0 DISTURBANCE OF SKIN SENSATION 09/27/2011 JEREMIAH CANSECO APRN 782.0 DISTURBANCE OF SKIN SENSATION 09/27/2011 782.0 DISTURBANCE OF SKIN SENSATION 09/27/2011 782.0 DISTURBANCE OF SKIN SENSATION 09/27/2011 782.0 DISTURBANCE OF SKIN SENSATION 09/27/2011 KELY THEODORE MD 782.0 DISTURBANCE OF SKIN SENSATION 09/27/2011 PATRICIA LYNCH APRN 782.0 DISTURBANCE OF SKIN SENSATION 09/27/2011 YANEZ DO, KIRK K 782.0 DISTURBANCE OF SKIN SENSATION 09/27/2011 YANEZ DO, KIRK K 782.0 DISTURBANCE OF SKIN SENSATION 09/27/2011 YANEZ DO, KIRK K 782.0 DISTURBANCE OF SKIN SENSATION 09/27/2011 JEREMIAH CANSECO APRN 782.0 DISTURBANCE OF SKIN SENSATION 09/27/2011 YANEZ DO, KIRK K 782.0 DISTURBANCE OF SKIN SENSATION 09/27/2011 YANEZ DO, KIRK K 782.0 DISTURBANCE OF SKIN SENSATION 09/27/2011 DESIREE SPENCE MD 782.0 DISTURBANCE OF SKIN SENSATION 09/27/2011 DESIREE SPENCE MD 782.0 DISTURBANCE OF SKIN SENSATION 09/27/2011 DESIREE SPENCE MD 782.0 DISTURBANCE OF SKIN SENSATION 09/27/2011 AL[employer] ANKLE SURGEON, CHARISSA R 782.0 DISTURBANCE OF SKIN SENSATION 09/27/2011 ALDEN SINHAN, CHARISSA R 782.0 DISTURBANCE OF SKIN SENSATION 09/27/2011 ALDEN SINHAN, CHARISSA R 782.0 DISTURBANCE OF SKIN SENSATION 09/27/2011 YANEZ DO, KIRK K 782.0 DISTURBANCE OF SKIN SENSATION 09/27/2011 ALDEN MCGREGOR, CHARISSA R 782.0 DISTURBANCE OF SKIN SENSATION 09/27/2011 YANEZ DO, KIRK K 782.0 DISTURBANCE OF SKIN SENSATION 09/27/2011 YANEZ DO, KIRK K 782.0 DISTURBANCE OF SKIN SENSATION 09/27/2011 AL[employer] SURGEON, CHARISSA R 782.0 DISTURBANCE OF SKIN SENSATION 09/27/2011 DANIELLA MCGREGOR [place] A 782.0 DISTURBANCE OF SKIN SENSATION 09/27/2011 DANIELLA MCGREGOR [place] A 782.0 DISTURBANCE OF SKIN SENSATION 09/27/2011 DESIREE SPENCE MD 782.0 DISTURBANCE OF SKIN SENSATION 09/27/2011 DESIREE SPENCE MD 782.0 DISTURBANCE OF SKIN SENSATION 09/27/2011 DESIREE SPENCE MD N 782.0 DISTURBANCE OF SKIN SENSATION 09/27/2011 DESIREE SPENCE MD N 782.0 DISTURBANCE OF SKIN SENSATION 09/27/2011 DESIREE SPENCE MD N 782.0 DISTURBANCE OF SKIN SENSATION 09/27/2011 DESIREE SPENCE MD N 782.0 DISTURBANCE OF SKIN SENSATION 09/27/2011 DESIREE SPENCE MD N 782.0 DISTURBANCE OF SKIN SENSATION 09/27/2011 DESIREE SPENCE MD N 782.0 DISTURBANCE OF SKIN SENSATION 09/27/2011 DESIREE SPENCE MD N 782.0 DISTURBANCE OF SKIN SENSATION 09/27/2011 DESIREE SPENCE MD 782.0 DISTURBANCE OF SKIN SENSATION 12/13/2011 KELY THEODORE MD 564.00 CONSTIPATION 12/13/2011 KELY THEODORE MD 564.00 CONSTIPATION 12/13/2011 564.00 Constipation 12/13/2011 KIRK YANEZ DO K 564.00 Constipation 12/13/2011 JEREMIAH CANSECO APRN 564.00 Constipation 12/13/2011 564.00 Constipation 12/13/2011 564.00 Constipation 12/13/2011 564.00 Constipation 12/13/2011 KELY THEODORE MD 564.00 Constipation 12/13/2011 PATRICIA LYNCH APRN 564.00 Constipation 12/13/2011 YANEZ DO, KIRK K 564.00 Constipation 12/13/2011 YANEZ DOKIRK K 564.00 Constipation 12/13/2011 YANEZ DO, KIRK K 564.00 Constipation 12/13/2011 JEREMIAH CANSECO APRN 564.00 Constipation 12/13/2011 YANEZ DOKIRK K 564.00 Constipation 12/13/2011 YANEZ DO, KIRK K 564.00 Constipation 12/13/2011 DESIREE SPENCE MD 564.00 Constipation 12/13/2011 DESIREE SPENCE MD 564.00 Constipation 12/13/2011 DESIREE SPENCE MD 564.00 Constipation 12/13/2011 CHARISSA RUANO APRN 564.00 Constipation 12/13/2011 CHARISSA RUANO APRN 564.00 Constipation 12/13/2011 [employer] SURGEON, CHARISSA R 564.00 Constipation 12/13/2011 YANEZ DO, KIRK K 564.00 Constipation 12/13/2011 [employer] SURGEON, CHARISSA R 564.00 Constipation 12/13/2011 YANEZ DO, KIRK K 564.00 Constipation 12/13/2011 YANEZ DO, KIRK K 564.00 Constipation 12/13/2011 [employer] SURGEON, CHARISSA R 564.00 Constipation 12/13/2011 DANIELLA FOOT AND ANKLE SURGEON, [place] A 564.00 Constipation 12/13/2011 DANIELLA FOOT AND ANKLE SURGEON, [place] A 564.00 Constipation 12/13/2011 JORDY CHRISTIAN, DESIREE N 564.00 Constipation 12/13/2011 JORDY CHRISTIAN, DESIREE N 564.00 Constipation 12/13/2011 JORDY CHRISTIAN, DESIREE N 564.00 Constipation 12/13/2011 JORDY CHRISTIAN, DESIREE N 564.00 Constipation 12/13/2011 JORDY CHRISTIAN, DESIREE N 564.00 Constipation 12/13/2011 JORDY CHRISTIAN, DESIREE N 564.00 Constipation 12/13/2011 JORDY CHRISTIAN, DESIREE N 564.00 Constipation 12/13/2011 JORDY CHRISTIAN, DESIREE N 564.00 Constipation 12/13/2011 JORDY CHRISTIAN, DESIREE N 564.00 Constipation 12/13/2011 JORDY CHRISTIAN, DESIREE N 564.00 Constipation 01/13/2012 ARBEN CHRISTIAN, KELY V58.69 Medication High Risk 01/13/2012 KELY THEODORE MD V58.69 Medication High Risk 01/13/2012 V58.69 Medication High Risk 01/13/2012 KIRK YANEZ DO V58.69 Medication High Risk 01/13/2012 JEREMIAH CANSECO APRN V58.69 Medication High Risk 01/13/2012 V58.69 Medication High Risk 01/13/2012 V58.69 Medication High Risk 01/13/2012 V58.69 Medication High Risk 01/13/2012 KELY THEODORE MD V58.69 Medication High Risk 01/13/2012 PATRICIA LYNCH APRN V58.69 Medication High Risk 01/13/2012 KIRK YANEZ DO V58.69 Medication High Risk 01/13/2012 KIRK YANEZ DO V58.69 Medication High Risk 01/13/2012 YANEZ DO, KIRK K V58.69 Medication High Risk 01/13/2012 CANSECO BALBIRJEREMIAH V58.69 Medication High Risk 01/13/2012 YANEZ DO, KIRK K V58.69 Medication High Risk 01/13/2012 YANEZ DO, KIRK K V58.69 Medication High Risk 01/13/2012 JORDY CHRISTIAN, DESIREE Leonard V58.69 Medication High Risk 01/13/2012 JORDY CHRISTIAN, DESIREE Leonard V58.69 Medication High Risk 01/13/2012 JORDY CHRISTIAN, DESIREE Leonard V58.69 Medication High Risk 01/13/2012 [place] [employer] SURGEON, CHARISSA R V58.69 Medication High Risk 01/13/2012 ALDEN [employer] SURGEON, CHARISSA R V58.69 Medication High Risk 01/13/2012 [employer] SURGEON, CHARISSA R V58.69 Medication High Risk 01/13/2012 YANEZ DO, KIRK K V58.69 Medication High Risk 01/13/2012 [employer] SURGEON, CHARISSA R V58.69 Medication High Risk 01/13/2012 YANEZ DO, KIRK K V58.69 Medication High Risk 01/13/2012 YANEZ DO, KIRK K V58.69 Medication High Risk 01/13/2012 [employer] [employer]GEON, CHARISSA R V58.69 Medication High Risk 01/13/2012 DANIELLA MCGREGOR [place] A V58.69 Medication High Risk 01/13/2012 DANIELLA MCGREGOR [place] A V58.69 Medication High Risk 01/13/2012 DESIREE SPENCE MD V58.69 Medication High Risk 01/13/2012 DESIREE SPENCE MD V58.69 Medication High Risk 01/13/2012 DESIREE SPENCE MD V58.69 Medication High Risk 01/13/2012 DESIREE SPENCE MD V58.69 Medication High Risk 01/13/2012 DESIREE SPENCE MD V58.69 Medication High Risk 01/13/2012 DESIREE SPENCE MD V58.69 Medication High Risk 01/13/2012 DESIREE SPENCE MD V58.69 Medication High Risk 01/13/2012 DESIREE SPENCE MD V58.69 Medication High Risk 01/13/2012 DESIREE SPENCE MD V58.69 Medication High Risk 01/13/2012 DESIREE SPENCE MD V58.69 Medication High Risk 03/07/2012 KELY THEODORE MD 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 03/07/2012 KELY THEODORE MD 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 03/07/2012 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 03/07/2012 KIRK YANEZ DO 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 03/07/2012 JEREMIAH CANSECO APRN 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 03/07/2012 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 03/07/2012 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 03/07/2012 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 03/07/2012 KELY THEODORE MD 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 03/07/2012 PATRICIA LYNCH APRN 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 03/07/2012 KIRK YANEZ DO 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 03/07/2012 KIRK YANEZ DO 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 03/07/2012 KIRK YANEZ DO 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 03/07/2012 JEREMIAH CANSECO APRN 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 03/07/2012 KIRK YANEZ DO 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 03/07/2012 KIRK YANEZ DO 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 03/07/2012 DESIREE SPENCE MD 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 03/07/2012 DESIREE SPENCE MD 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 03/07/2012 DESIREE SPENCE MD 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 03/07/2012 CHARISSA RUANO APRN 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 03/07/2012 CHARISSA RUANO APRN 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 03/07/2012 CHARISSA RUANO APRN R 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 03/07/2012 KIRK YANEZ DO 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 03/07/2012 DAVI RUANO APRNINA R 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 03/07/2012 KIRK YANEZ DO 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 03/07/2012 KIRK YANEZ DO K 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 03/07/2012 DAVI RUANO APRNINA R 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 03/07/2012 SANFORD BREWER APRN A 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 03/07/2012 MEGAN BREWER APRNIDI A 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 03/07/2012 DESIREE SPENCE MD 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 03/07/2012 DESIREE SPENCE MD 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 03/07/2012 DESIREE SPENCE MD 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 03/07/2012 DESIREE SPENCE MD 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 03/07/2012 DESIREE SPENCE MD 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 03/07/2012 DESIREE SPENCE MD 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 03/07/2012 DESIREE SPENCE MD 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 03/07/2012 DESIREE SPENCE MD 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 03/07/2012 DESIREE SPENCE MD 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 03/07/2012 DESIREE SPENCE MD 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 03/09/2012 KELY THEODORE MD 268.9 VITAMIN D DEFICIENCY 03/09/2012 KELY THEODORE MD 268.9 VITAMIN D DEFICIENCY 03/09/2012 268.9 VITAMIN D DEFICIENCY 03/09/2012 KIRK YANEZ DO 268.9 VITAMIN D DEFICIENCY 03/09/2012 JEREMIAH CANSECO APRN 268.9 VITAMIN D DEFICIENCY 03/09/2012 268.9 VITAMIN D DEFICIENCY 03/09/2012 268.9 VITAMIN D DEFICIENCY 03/09/2012 268.9 VITAMIN D DEFICIENCY 03/09/2012 KELY THEODORE MD 268.9 VITAMIN D DEFICIENCY 03/09/2012 PATRICIA LYNCH APRN 268.9 VITAMIN D DEFICIENCY 03/09/2012 YANEZ DO, KIRK K 268.9 VITAMIN D DEFICIENCY 03/09/2012 YANEZ DO, KIRK K 268.9 VITAMIN D DEFICIENCY 03/09/2012 YANEZ DO, KIRK K 268.9 VITAMIN D DEFICIENCY 03/09/2012 JEREMIAH CANSECO APRN 268.9 VITAMIN D DEFICIENCY 03/09/2012 YANEZ DO, KIRK K 268.9 VITAMIN D DEFICIENCY 03/09/2012 YANEZ DO, KIRK K 268.9 VITAMIN D DEFICIENCY 03/09/2012 DESIREE SPENCE MD 268.9 VITAMIN D DEFICIENCY 03/09/2012 DESIREE SPENCE MD 268.9 VITAMIN D DEFICIENCY 03/09/2012 DESIREE SPENCE MD 268.9 VITAMIN D DEFICIENCY 03/09/2012 ALDEN MCGREGOR CHARISSA R 268.9 VITAMIN D DEFICIENCY 03/09/2012 DAVI RUANO APRNINA R 268.9 VITAMIN D DEFICIENCY 03/09/2012 DAVI RUANO APRNINA R 268.9 VITAMIN D DEFICIENCY 03/09/2012 YANEZ DO, KIRK K 268.9 VITAMIN D DEFICIENCY 03/09/2012 ALDEN MCGREGOR CHARISSA R 268.9 VITAMIN D DEFICIENCY 03/09/2012 YANEZ DO, KIRK K 268.9 VITAMIN D DEFICIENCY 03/09/2012 YNAEZ DO, KIRK K 268.9 VITAMIN D DEFICIENCY 03/09/2012 ALDEN MCGREGOR CHARISSA R 268.9 VITAMIN D DEFICIENCY 03/09/2012 SANFORD BREWER APRN A 268.9 VITAMIN D DEFICIENCY 03/09/2012 SANFORD BREWER APRN A 268.9 VITAMIN D DEFICIENCY 03/09/2012 DESIREE SPENCE MD N 268.9 VITAMIN D DEFICIENCY 03/09/2012 DESIREE SPENCE MD 268.9 VITAMIN D DEFICIENCY 03/09/2012 DESIREE SPENCE MD 268.9 VITAMIN D DEFICIENCY 03/09/2012 DESIREE SPENCE MD 268.9 VITAMIN D DEFICIENCY 03/09/2012 DESIREE SPENCE MD N 268.9 VITAMIN D DEFICIENCY 03/09/2012 DESIREE SPENCE MD 268.9 VITAMIN D DEFICIENCY 03/09/2012 DESIREE SPENCE MD 268.9 VITAMIN D DEFICIENCY 03/09/2012 JORDY MD, DESIREE N 268.9 VITAMIN D DEFICIENCY 03/09/2012 DESIREE SPENCE MD 268.9 VITAMIN D DEFICIENCY 03/09/2012 DESIREE SPENCE MD 268.9 VITAMIN D DEFICIENCY 03/23/2012 KELY THEODORE MD 719.46 PAIN IN JOINT INVOLVING LOWER LEG 03/23/2012 KELY THEODORE MD 719.46 PAIN IN JOINT INVOLVING LOWER LEG 03/23/2012 719.46 PAIN IN JOINT INVOLVING LOWER LEG 03/23/2012 TAHMINA YANEZ DOA K 719.46 PAIN IN JOINT INVOLVING LOWER LEG 03/23/2012 HARLEEN MCGREGOR JEREMIAH SUAREZH 719.46 PAIN IN JOINT INVOLVING LOWER LEG 03/23/2012 719.46 PAIN IN JOINT INVOLVING LOWER LEG 03/23/2012 719.46 PAIN IN JOINT INVOLVING LOWER LEG 03/23/2012 719.46 PAIN IN JOINT INVOLVING LOWER LEG 03/23/2012 KELY THEODORE MD 719.46 PAIN IN JOINT INVOLVING LOWER LEG 03/23/2012 PATRICIA LYNCH APRN 719.46 PAIN IN JOINT INVOLVING LOWER LEG 03/23/2012 RENATA DOTAHMINAA K 719.46 PAIN IN JOINT INVOLVING LOWER LEG 03/23/2012 RENATA DO KIRK K 719.46 PAIN IN JOINT INVOLVING LOWER LEG 03/23/2012 RENATA DO KIRK K 719.46 PAIN IN JOINT INVOLVING LOWER LEG 03/23/2012 HARLEEN MCGREGOR JEREMIAH LIZETTE 719.46 PAIN IN JOINT INVOLVING LOWER LEG 03/23/2012 YANEZ DO KIRK K 719.46 PAIN IN JOINT INVOLVING LOWER LEG 03/23/2012 RENATA SPIVEY KIRK K 719.46 PAIN IN JOINT INVOLVING LOWER LEG 03/23/2012 DESIREE SPENCE MD 719.46 PAIN IN JOINT INVOLVING LOWER LEG 03/23/2012 DESIREE SPENCE MD 719.46 PAIN IN JOINT INVOLVING LOWER LEG 03/23/2012 DESIREE SPENCE MD 719.46 PAIN IN JOINT INVOLVING LOWER LEG 03/23/2012 CHARISSA RUANO APRN R 719.46 PAIN IN JOINT INVOLVING LOWER LEG 03/23/2012 CHARISSA RUANO APRN R 719.46 PAIN IN JOINT INVOLVING LOWER LEG 03/23/2012 CHARISSA RUANO APRN R 719.46 PAIN IN JOINT INVOLVING LOWER LEG 03/23/2012 YANEZ DO, KIRK K 719.46 PAIN IN JOINT INVOLVING LOWER LEG 03/23/2012 DAVI RUANO APRNINA R 719.46 PAIN IN JOINT INVOLVING LOWER LEG 03/23/2012 YANEZ DO, KIRK K 719.46 PAIN IN JOINT INVOLVING LOWER LEG 03/23/2012 YANEZ DO KIRK K 719.46 PAIN IN JOINT INVOLVING LOWER LEG 03/23/2012 DAVI RUANO APRNINA R 719.46 PAIN IN JOINT INVOLVING LOWER LEG 03/23/2012 DANIELLASANFORD Leonard APRN A 719.46 PAIN IN JOINT INVOLVING LOWER LEG 03/23/2012 DANIELLA APRN, SANFORD A 719.46 PAIN IN JOINT INVOLVING LOWER LEG 03/23/2012 DESIREE SPENCE MD 719.46 PAIN IN JOINT INVOLVING LOWER LEG 03/23/2012 DESIREE SPENCE MD 719.46 PAIN IN JOINT INVOLVING LOWER LEG 03/23/2012 DESIREE SPENCE MD 719.46 PAIN IN JOINT INVOLVING LOWER LEG 03/23/2012 DESIREE SPENCE MD 719.46 PAIN IN JOINT INVOLVING LOWER LEG 03/23/2012 DESIREE SPENCE MD N 719.46 PAIN IN JOINT INVOLVING LOWER LEG 03/23/2012 DESIREE SPENCE MD N 719.46 PAIN IN JOINT INVOLVING LOWER LEG 03/23/2012 DESIREE SPENCE MD N 719.46 PAIN IN JOINT INVOLVING LOWER LEG 03/23/2012 DESIREE SPENCE MD N 719.46 PAIN IN JOINT INVOLVING LOWER LEG 03/23/2012 DESIREE SPENCE MD N 719.46 PAIN IN JOINT INVOLVING LOWER LEG 03/23/2012 DESIREE SPENCE MD N 719.46 PAIN IN JOINT INVOLVING LOWER LEG 06/02/2012 401.9 UNSPECIFIED ESSENTIAL HYPERTENSION 06/02/2012 686.9 UNSPECIFIED LOCAL INFECTION OF SKIN AND SUBCUTANEOUS TISSUE 06/02/2012 RENATA DOTAHMINAA K 401.9 UNSPECIFIED ESSENTIAL HYPERTENSION 06/02/2012 YANEZ DO KIRK K 686.9 UNSPECIFIED LOCAL INFECTION OF SKIN AND SUBCUTANEOUS TISSUE 06/02/2012 JEREMIAH CANSECO APRN 401.9 UNSPECIFIED ESSENTIAL HYPERTENSION 06/02/2012 JEREMIAH CANSECO APRN 686.9 UNSPECIFIED LOCAL INFECTION OF SKIN AND SUBCUTANEOUS TISSUE 06/02/2012 401.9 UNSPECIFIED ESSENTIAL HYPERTENSION 06/02/2012 686.9 UNSPECIFIED LOCAL INFECTION OF SKIN AND SUBCUTANEOUS TISSUE 06/02/2012 401.9 UNSPECIFIED ESSENTIAL HYPERTENSION 06/02/2012 686.9 UNSPECIFIED LOCAL INFECTION OF SKIN AND SUBCUTANEOUS TISSUE 06/02/2012 401.9 UNSPECIFIED ESSENTIAL HYPERTENSION 06/02/2012 686.9 UNSPECIFIED LOCAL INFECTION OF SKIN AND SUBCUTANEOUS TISSUE 06/02/2012 KELY THEODORE MD 401.9 UNSPECIFIED ESSENTIAL HYPERTENSION 06/02/2012 KELY THEODORE MD 686.9 UNSPECIFIED LOCAL INFECTION OF SKIN AND SUBCUTANEOUS TISSUE 06/02/2012 PATRICIA LYNCH APRN 401.9 UNSPECIFIED ESSENTIAL HYPERTENSION 06/02/2012 PATRICIA LYNCH APRN 686.9 UNSPECIFIED LOCAL INFECTION OF SKIN AND SUBCUTANEOUS TISSUE 06/02/2012 YANEZ DO, KIRK K 401.9 UNSPECIFIED ESSENTIAL HYPERTENSION 06/02/2012 YANEZ DO, KIRK K 686.9 UNSPECIFIED LOCAL INFECTION OF SKIN AND SUBCUTANEOUS TISSUE 06/02/2012 YANEZ DO, KIRK K 401.9 UNSPECIFIED ESSENTIAL HYPERTENSION 06/02/2012 YANEZ DO, KIRK K 686.9 UNSPECIFIED LOCAL INFECTION OF SKIN AND SUBCUTANEOUS TISSUE 06/02/2012 YANEZ DO, KIRK K 401.9 UNSPECIFIED ESSENTIAL HYPERTENSION 06/02/2012 YANEZ DO, KIRK K 686.9 UNSPECIFIED LOCAL INFECTION OF SKIN AND SUBCUTANEOUS TISSUE 06/02/2012 HARLEEN MCGREGOR JEREMIAH BAUER 401.9 UNSPECIFIED ESSENTIAL HYPERTENSION 06/02/2012 HARLEEN MCGREGOR JEREMIAH BAUER 686.9 UNSPECIFIED LOCAL INFECTION OF SKIN AND SUBCUTANEOUS TISSUE 06/02/2012 YANEZ DO, KIRK K 401.9 UNSPECIFIED ESSENTIAL HYPERTENSION 06/02/2012 YANEZ DO, KIRK K 686.9 UNSPECIFIED LOCAL INFECTION OF SKIN AND SUBCUTANEOUS TISSUE 06/02/2012 YANEZ DO, KIRK K 401.9 UNSPECIFIED ESSENTIAL HYPERTENSION 06/02/2012 YANEZ DO, KIRK K 686.9 UNSPECIFIED LOCAL INFECTION OF SKIN AND SUBCUTANEOUS TISSUE 06/02/2012 DESIREE SPENCE MD 401.9 UNSPECIFIED ESSENTIAL HYPERTENSION 06/02/2012 DESIREE SPENCE MD 686.9 UNSPECIFIED LOCAL INFECTION OF SKIN AND SUBCUTANEOUS TISSUE 06/02/2012 JORDY MD, DESIREE N 401.9 UNSPECIFIED ESSENTIAL HYPERTENSION 06/02/2012 DESIREE SPENCE MD N 686.9 UNSPECIFIED LOCAL INFECTION OF SKIN AND SUBCUTANEOUS TISSUE 06/02/2012 DESIREE SPENCE MD N 401.9 UNSPECIFIED ESSENTIAL HYPERTENSION 06/02/2012 DESIREE SPENCE MD N 686.9 UNSPECIFIED LOCAL INFECTION OF SKIN AND SUBCUTANEOUS TISSUE 06/02/2012 [employer] SURGEON, CHARISSA R 401.9 UNSPECIFIED ESSENTIAL HYPERTENSION 06/02/2012 [employer]DEN [employer] SURGEON, CHARISSA R 686.9 UNSPECIFIED LOCAL INFECTION OF SKIN AND SUBCUTANEOUS TISSUE 06/02/2012 ALDEN [employer] AND ANK[employer] SURGEON, CHARISSA R 401.9 UNSPECIFIED ESSENTIAL HYPERTENSION 06/02/2012 ALDEN [employer]OT AND ANKLE SURGEON, CHARISSA R 686.9 UNSPECIFIED LOCAL INFECTION OF SKIN AND SUBCUTANEOUS TISSUE 06/02/2012 ALDEN [employer] ANK[employer] SURGEON, CHARISSA R 401.9 UNSPECIFIED ESSENTIAL HYPERTENSION 06/02/2012 ALDEN [employer] AND ANKLE SURGEON, CHARISSA R 686.9 UNSPECIFIED LOCAL INFECTION OF SKIN AND SUBCUTANEOUS TISSUE 06/02/2012 YANEZ DO, KIRK K 401.9 UNSPECIFIED ESSENTIAL HYPERTENSION 06/02/2012 YANEZ DO, KIRK K 686.9 UNSPECIFIED LOCAL INFECTION OF SKIN AND SUBCUTANEOUS TISSUE 06/02/2012 [employer] SURGEON, CHARISSA R 401.9 UNSPECIFIED ESSENTIAL HYPERTENSION 06/02/2012 ALDEN [employer] AND ANK[employer] SURGEON, CHARISSA R 686.9 UNSPECIFIED LOCAL INFECTION OF SKIN AND SUBCUTANEOUS TISSUE 06/02/2012 YANEZ DO, KIRK K 401.9 UNSPECIFIED ESSENTIAL HYPERTENSION 06/02/2012 YANEZ DO, KIRK K 686.9 UNSPECIFIED LOCAL INFECTION OF SKIN AND SUBCUTANEOUS TISSUE 06/02/2012 YANEZ DO, KIRK K 401.9 UNSPECIFIED ESSENTIAL HYPERTENSION 06/02/2012 YANEZ DO, KIRK K 686.9 UNSPECIFIED LOCAL INFECTION OF SKIN AND SUBCUTANEOUS TISSUE 06/02/2012 ALDEN SINHAN, CHARISSA R 401.9 UNSPECIFIED ESSENTIAL HYPERTENSION 06/02/2012 ALDEN SINHAN, CHARISSA R 686.9 UNSPECIFIED LOCAL INFECTION OF SKIN AND SUBCUTANEOUS TISSUE 06/02/2012 MEGAN BREWER APRNIDI A 401.9 UNSPECIFIED ESSENTIAL HYPERTENSION 06/02/2012 DANIELLAMEGAN Leonard APRNIDI A 686.9 UNSPECIFIED LOCAL INFECTION OF SKIN AND SUBCUTANEOUS TISSUE 06/02/2012 DANIELLAMEGAN Leonard APRNIDI A 401.9 UNSPECIFIED ESSENTIAL HYPERTENSION 06/02/2012 DANIELLA MCGREGOR SAN[place] A 686.9 UNSPECIFIED LOCAL INFECTION OF SKIN AND SUBCUTANEOUS TISSUE 06/02/2012 DESIREE SPENCE MD N 401.9 UNSPECIFIED ESSENTIAL HYPERTENSION 06/02/2012 DESIREE SPENCE MD 686.9 UNSPECIFIED LOCAL INFECTION OF SKIN AND SUBCUTANEOUS TISSUE 06/02/2012 DESIREE SPENCE MD N 401.9 UNSPECIFIED ESSENTIAL HYPERTENSION 06/02/2012 DESIREE SPENCE MD 686.9 UNSPECIFIED LOCAL INFECTION OF SKIN AND SUBCUTANEOUS TISSUE 06/02/2012 DESIREE SPENCE MD N 401.9 UNSPECIFIED ESSENTIAL HYPERTENSION 06/02/2012 DESIREE SPENCE MD N 686.9 UNSPECIFIED LOCAL INFECTION OF SKIN AND SUBCUTANEOUS TISSUE 06/02/2012 DESIREE SPENCE MD N 401.9 UNSPECIFIED ESSENTIAL HYPERTENSION 06/02/2012 DESIREE SPENCE MD N 686.9 UNSPECIFIED LOCAL INFECTION OF SKIN AND SUBCUTANEOUS TISSUE 06/02/2012 DESIREE SPENCE MD N 401.9 UNSPECIFIED ESSENTIAL HYPERTENSION 06/02/2012 DESIREE SPENCE MD N 686.9 UNSPECIFIED LOCAL INFECTION OF SKIN AND SUBCUTANEOUS TISSUE 06/02/2012 DESIREE SPENCE MD N 401.9 UNSPECIFIED ESSENTIAL HYPERTENSION 06/02/2012 DESIREE SPENCE MD N 686.9 UNSPECIFIED LOCAL INFECTION OF SKIN AND SUBCUTANEOUS TISSUE 06/02/2012 DESIREE SPENCE MD N 401.9 UNSPECIFIED ESSENTIAL HYPERTENSION 06/02/2012 DESIREE SPENCE MD N 686.9 UNSPECIFIED LOCAL INFECTION OF SKIN AND SUBCUTANEOUS TISSUE 06/02/2012 DESIREE SPENCE MD N 401.9 UNSPECIFIED ESSENTIAL HYPERTENSION 06/02/2012 DESIREE SPENCE MD N 686.9 UNSPECIFIED LOCAL INFECTION OF SKIN AND SUBCUTANEOUS TISSUE 06/02/2012 DESIREE SPENCE MD N 401.9 UNSPECIFIED ESSENTIAL HYPERTENSION 06/02/2012 DESIREE SPENCE MD N 686.9 UNSPECIFIED LOCAL INFECTION OF SKIN AND SUBCUTANEOUS TISSUE 06/02/2012 DESIREE SPENCE MD N 401.9 UNSPECIFIED ESSENTIAL HYPERTENSION 06/02/2012 DESIREE SPENCE MD N 686.9 UNSPECIFIED LOCAL INFECTION OF SKIN AND SUBCUTANEOUS TISSUE 06/15/2012 KIRK YANEZ DO 455.6 HEMORRHOIDS NOS 06/15/2012 KIRK YANEZ DO K 564.00 CONSTIPATION 06/15/2012 KIRK YANEZ DO K V73.81 HPV SCREENING 06/15/2012 KIRK YANEZ DO K V76.10 BREAST CANCER SCREENING 06/15/2012 KIRK YANEZ DO K V76.2 CERVICAL CANCER SCREENING (PAP SMEAR) 06/15/2012 HARLEEN SINHAN, JEREMIAH BAUER 455.6 HEMORRHOIDS NOS 06/15/2012 HARLEEN SINHAHoracio JEREMIAH BAUER 564.00 CONSTIPATION 06/15/2012 HARLEEN SINHAHoracio JEREMIAH BAUER V73.81 HPV SCREENING 06/15/2012 HARLEEN SINHAHoracio JEREMIAH BAUER V76.10 BREAST CANCER SCREENING 06/15/2012 HARLEEN SINHAHoracio JEREMIAH BAUER V76.2 CERVICAL CANCER SCREENING (PAP SMEAR) 06/15/2012 455.6 HEMORRHOIDS NOS 06/15/2012 564.00 CONSTIPATION 06/15/2012 V73.81 HPV SCREENING 06/15/2012 V76.10 BREAST CANCER SCREENING 06/15/2012 V76.2 CERVICAL CANCER SCREENING (PAP SMEAR) 06/15/2012 455.6 HEMORRHOIDS NOS 06/15/2012 564.00 CONSTIPATION 06/15/2012 V73.81 HPV SCREENING 06/15/2012 V76.10 BREAST CANCER SCREENING 06/15/2012 V76.2 CERVICAL CANCER SCREENING (PAP SMEAR) 06/15/2012 455.6 HEMORRHOIDS NOS 06/15/2012 564.00 CONSTIPATION 06/15/2012 V73.81 HPV SCREENING 06/15/2012 V76.10 BREAST CANCER SCREENING 06/15/2012 V76.2 CERVICAL CANCER SCREENING (PAP SMEAR) 06/15/2012 KELY THEODORE MD 455.6 HEMORRHOIDS NOS 06/15/2012 KELY THEODORE MD 564.00 CONSTIPATION 06/15/2012 KELY THEODORE MD V73.81 HPV SCREENING 06/15/2012 KELY THEODORE MD V76.10 BREAST CANCER SCREENING 06/15/2012 KELY THEODORE MD V76.2 CERVICAL CANCER SCREENING (PAP SMEAR) 06/15/2012 PATRICIA LYNCH APRN 455.6 HEMORRHOIDS NOS 06/15/2012 PATRICIA LYNCH APRN 564.00 CONSTIPATION 06/15/2012 PATRICIA LYNCH APRN V73.81 HPV SCREENING 06/15/2012 PATRICIA LYNCH APRN V76.10 BREAST CANCER SCREENING 06/15/2012 PATRICIA LYNCH APRN V76.2 CERVICAL CANCER SCREENING (PAP SMEAR) 06/15/2012 YANEZ DO KIRK K 455.6 HEMORRHOIDS NOS 06/15/2012 YANEZ DO, KIRK K 564.00 CONSTIPATION 06/15/2012 YANEZ DO, KIRK K V73.81 HPV SCREENING 06/15/2012 YANEZ DO, KIRK K V76.10 BREAST CANCER SCREENING 06/15/2012 YANEZ DO, KIRK K V76.2 CERVICAL CANCER SCREENING (PAP SMEAR) 06/15/2012 YANEZ DO, KIRK K 455.6 HEMORRHOIDS NOS 06/15/2012 YANEZ DO, KIRK K 564.00 CONSTIPATION 06/15/2012 YANEZ DO, KIRK K V73.81 HPV SCREENING 06/15/2012 YANEZ DO, KIRK K V76.10 BREAST CANCER SCREENING 06/15/2012 YANEZ DO, KIRK K V76.2 CERVICAL CANCER SCREENING (PAP SMEAR) 06/15/2012 YANEZ DO KIRK K 455.6 HEMORRHOIDS NOS 06/15/2012 YANEZ DO, KIRK K 564.00 CONSTIPATION 06/15/2012 YANEZ DO, KIRK K V73.81 HPV SCREENING 06/15/2012 YANEZ DO, KIRK K V76.10 BREAST CANCER SCREENING 06/15/2012 YANEZ DO, KIRK K V76.2 CERVICAL CANCER SCREENING (PAP SMEAR) 06/15/2012 JEREMIAH CANSECO APRN 455.6 HEMORRHOIDS NOS 06/15/2012 JEREMIAH CANSECO APRN 564.00 CONSTIPATION 06/15/2012 HARLEEN MCGREGOR JEREMIAH LIZETTE V73.81 HPV SCREENING 06/15/2012 HARLEEN MCGREGOR JEREMIAH LIZETTE V76.10 BREAST CANCER SCREENING 06/15/2012 CANSECO BALBIR JEREMIAH LIZETTE V76.2 CERVICAL CANCER SCREENING (PAP SMEAR) 06/15/2012 YANEZ DO KIRK K 455.6 HEMORRHOIDS NOS 06/15/2012 YANEZ DO, KIRK K 564.00 CONSTIPATION 06/15/2012 YANEZ DO, KIRK K V73.81 HPV SCREENING 06/15/2012 YANEZ DO, KIRK K V76.10 BREAST CANCER SCREENING 06/15/2012 YANEZ DO, KIRK K V76.2 CERVICAL CANCER SCREENING (PAP SMEAR) 06/15/2012 IKRK YANEZ DO 455.6 HEMORRHOIDS NOS 06/15/2012 RENATA SPIVEYKIRK K 564.00 CONSTIPATION 06/15/2012 YANEZ KIRK V73.81 HPV SCREENING 06/15/2012 RENATA SPIVEYKIRK K V76.10 BREAST CANCER SCREENING 06/15/2012 RENATA SPIVEYKIRK K V76.2 CERVICAL CANCER SCREENING (PAP SMEAR) 06/15/2012 DESIREE SPENCE MD 455.6 HEMORRHOIDS NOS 06/15/2012 DESIREE SPENCE MD 564.00 CONSTIPATION 06/15/2012 DESIREE SPENCE MD V73.81 HPV SCREENING 06/15/2012 DESIREE SPENCE MD V76.10 BREAST CANCER SCREENING 06/15/2012 DESIREE SPENCE MD V76.2 CERVICAL CANCER SCREENING (PAP SMEAR) 06/15/2012 DESIREE SPENCE MD 455.6 HEMORRHOIDS NOS 06/15/2012 DESIREE SPENCE MD 564.00 CONSTIPATION 06/15/2012 DESIREE SPENCE MD V73.81 HPV SCREENING 06/15/2012 DESIREE SPENCE MD V76.10 BREAST CANCER SCREENING 06/15/2012 DESIREE SPENCE MD V76.2 CERVICAL CANCER SCREENING (PAP SMEAR) 06/15/2012 DESIREE SPENCE MD 455.6 HEMORRHOIDS NOS 06/15/2012 DESIREE SPENCE MD 564.00 CONSTIPATION 06/15/2012 DESIREE SPENCE MD V73.81 HPV SCREENING 06/15/2012 DESIREE SPENCE MD V76.10 BREAST CANCER SCREENING 06/15/2012 DESIREE SPENCE MD V76.2 CERVICAL CANCER SCREENING (PAP SMEAR) 06/15/2012 CHARISSA RUANO APRN R 455.6 HEMORRHOIDS NOS 06/15/2012 CHARISSA RUANO APRN R 564.00 CONSTIPATION 06/15/2012 CHARISSA RUANO APRN R V73.81 HPV SCREENING 06/15/2012 CHARISSA RUANO APRN R V76.10 BREAST CANCER SCREENING 06/15/2012 CHARISSA RUANO APRN R V76.2 CERVICAL CANCER SCREENING (PAP SMEAR) 06/15/2012 CHARISSA RUANO APRN R 455.6 HEMORRHOIDS NOS 06/15/2012 [employer] SURGEON, CHARISSA R 564.00 CONSTIPATION 06/15/2012 [employer] SURGEON, CHARISSA R V73.81 HPV SCREENING 06/15/2012 [employer] SURGEON, CHARISSA R V76.10 BREAST CANCER SCREENING 06/15/2012 [employer] SURGEON, CHARISSA R V76.2 CERVICAL CANCER SCREENING (PAP SMEAR) 06/15/2012 [employer] SURGEON, CHARISSA R 455.6 HEMORRHOIDS NOS 06/15/2012 [employer] SURGEON, CHARISSA R 564.00 CONSTIPATION 06/15/2012 [employer] SURGEON, CHARISSA R V73.81 HPV SCREENING 06/15/2012 [employer] SURGEON, CHARISSA R V76.10 BREAST CANCER SCREENING 06/15/2012 [employer] SURGEON, CHARISSA R V76.2 CERVICAL CANCER SCREENING (PAP SMEAR) 06/15/2012 YANEZ DO KIRK K 455.6 HEMORRHOIDS NOS 06/15/2012 YANEZ DO KIRK K 564.00 CONSTIPATION 06/15/2012 YANEZ DO KIRK K V73.81 HPV SCREENING 06/15/2012 RENATA SPIVEY KIRK K V76.10 BREAST CANCER SCREENING 06/15/2012 RENATA SPIVEY, KIRK K V76.2 CERVICAL CANCER SCREENING (PAP SMEAR) 06/15/2012 [employer] SURGEON, CHARISSA R 455.6 HEMORRHOIDS NOS 06/15/2012 [employer] SURGEON, CHARISSA R 564.00 CONSTIPATION 06/15/2012 [employer] SURGEON, CHARISSA R V73.81 HPV SCREENING 06/15/2012 [employer] SURGEON, CHARISSA R V76.10 BREAST CANCER SCREENING 06/15/2012 [employer] SURGEON, CHARISSA R V76.2 CERVICAL CANCER SCREENING (PAP SMEAR) 06/15/2012 YANEZ DO, KIRK K 455.6 HEMORRHOIDS NOS 06/15/2012 YANEZ DO, KIRK K 564.00 CONSTIPATION 06/15/2012 YANEZ DO, KIRK K V73.81 HPV SCREENING 06/15/2012 YANEZ DO, KIRK K V76.10 BREAST CANCER SCREENING 06/15/2012 YANEZ DO, KIRK K V76.2 CERVICAL CANCER SCREENING (PAP SMEAR) 06/15/2012 YANEZ DO, KIRK K 455.6 HEMORRHOIDS NOS 06/15/2012 YANEZ DO, KIRK K 564.00 CONSTIPATION 06/15/2012 YANEZ DO KIRK K V73.81 HPV SCREENING 06/15/2012 KIRK YANEZ DO V76.10 BREAST CANCER SCREENING 06/15/2012 KIRK YANEZ DO V76.2 CERVICAL CANCER SCREENING (PAP SMEAR) 06/15/2012 ALDEN MCGREGOR, CHARISSA R 455.6 HEMORRHOIDS NOS 06/15/2012 [employer] SURGEON, CHARISSA R 564.00 CONSTIPATION 06/15/2012 [employer] AND ANKLE SURGEONDAVI LeonardINA R V73.81 HPV SCREENING 06/15/2012 ALDEN MCGREGOR, CHARISSA R V76.10 BREAST CANCER SCREENING 06/15/2012 [employer] SURGEON, CHARISSA R V76.2 CERVICAL CANCER SCREENING (PAP SMEAR) 06/15/2012 MEGAN BREWER APRNIDI A 455.6 HEMORRHOIDS NOS 06/15/2012 SANFORD BREWER APRN A 564.00 CONSTIPATION 06/15/2012 SANFORD BREWRE APRN A V73.81 HPV SCREENING 06/15/2012 SANFORD BREWER APRN A V76.10 BREAST CANCER SCREENING 06/15/2012 SANFORD BREWER APRN A V76.2 CERVICAL CANCER SCREENING (PAP SMEAR) 06/15/2012 MEGAN BREWER APRNIDI A 455.6 HEMORRHOIDS NOS 06/15/2012 DANIELLA MCGREGOR, SANFORD A 564.00 CONSTIPATION 06/15/2012 SANFORD BREWER APRN A V73.81 HPV SCREENING 06/15/2012 SANFORD BREWER APRN A V76.10 BREAST CANCER SCREENING 06/15/2012 SANFORD BREWER APRN A V76.2 CERVICAL CANCER SCREENING (PAP SMEAR) 06/15/2012 DESIREE SPENCE MD 455.6 HEMORRHOIDS NOS 06/15/2012 DESIREE SPENCE MD 564.00 CONSTIPATION 06/15/2012 DESIREE SPENCE MD V73.81 HPV SCREENING 06/15/2012 DESRIEE SPENCE MD V76.10 BREAST CANCER SCREENING 06/15/2012 DESIREE SPENCE MD V76.2 CERVICAL CANCER SCREENING (PAP SMEAR) 06/15/2012 DESIREE SPENCE MD 455.6 HEMORRHOIDS NOS 06/15/2012 DESIREE SPENCE MD 564.00 CONSTIPATION 06/15/2012 DESIREE SPENCE MD V73.81 HPV SCREENING 06/15/2012 DESIREE SPENCE MD V76.10 BREAST CANCER SCREENING 06/15/2012 DESIREE SPENCE MD V76.2 CERVICAL CANCER SCREENING (PAP SMEAR) 06/15/2012 DESIREE SPENCE MD 455.6 HEMORRHOIDS NOS 06/15/2012 DESIREE SPENCE MD 564.00 CONSTIPATION 06/15/2012 DESIREE SPENCE MD V73.81 HPV SCREENING 06/15/2012 DESIREE SPENCE MD V76.10 BREAST CANCER SCREENING 06/15/2012 DESIREE SPENCE MD V76.2 CERVICAL CANCER SCREENING (PAP SMEAR) 06/15/2012 DESIREE SPENCE MD 455.6 HEMORRHOIDS NOS 06/15/2012 DESIREE SPENCE MD 564.00 CONSTIPATION 06/15/2012 DESIREE SPENCE MD V73.81 HPV SCREENING 06/15/2012 DESIREE SPENCE MD V76.10 BREAST CANCER SCREENING 06/15/2012 DESIREE SPENCE MD V76.2 CERVICAL CANCER SCREENING (PAP SMEAR) 06/15/2012 DESIREE SPENCE MD 455.6 HEMORRHOIDS NOS 06/15/2012 DESIREE SPENCE MD 564.00 CONSTIPATION 06/15/2012 DESIREE SPENCE MD V73.81 HPV SCREENING 06/15/2012 DESIREE SPENCE MD V76.10 BREAST CANCER SCREENING 06/15/2012 DESIREE SPENCE MD V76.2 CERVICAL CANCER SCREENING (PAP SMEAR) 06/15/2012 DESIREE SPENCE MD 455.6 HEMORRHOIDS NOS 06/15/2012 DESIREE SPENCE MD 564.00 CONSTIPATION 06/15/2012 DESIREE SPENCE MD V73.81 HPV SCREENING 06/15/2012 DESIREE SPENCE MD V76.10 BREAST CANCER SCREENING 06/15/2012 DESIREE SPENCE MD V76.2 CERVICAL CANCER SCREENING (PAP SMEAR) 06/15/2012 DESIREE SPENCE MD 455.6 HEMORRHOIDS NOS 06/15/2012 DESIREE SPENCE MD 564.00 CONSTIPATION 06/15/2012 DESIREE SPENCE MD V73.81 HPV SCREENING 06/15/2012 DESIREE SPENCE MD V76.10 BREAST CANCER SCREENING 06/15/2012 DESIREE SPENCE MD V76.2 CERVICAL CANCER SCREENING (PAP SMEAR) 06/15/2012 DESIREE SPENCE MD 455.6 HEMORRHOIDS NOS 06/15/2012 DESIREE SPENCE MD N 564.00 CONSTIPATION 06/15/2012 DESIREE SPENCE MD V73.81 HPV SCREENING 06/15/2012 DESIREE SPENCE MD V76.10 BREAST CANCER SCREENING 06/15/2012 DESIREE SPENCE MD V76.2 CERVICAL CANCER SCREENING (PAP SMEAR) 06/15/2012 DESIREE SPENCE MD 455.6 HEMORRHOIDS NOS 06/15/2012 DESIREE SPENCE MD N 564.00 CONSTIPATION 06/15/2012 DESIREE SPENCE MD V73.81 HPV SCREENING 06/15/2012 DESIREE SPENCE MD V76.10 BREAST CANCER SCREENING 06/15/2012 DESIREE SPENCE MD V76.2 CERVICAL CANCER SCREENING (PAP SMEAR) 06/15/2012 DESIREE SPENCE MD 455.6 HEMORRHOIDS NOS 06/15/2012 DESIREE SPENCE MD N 564.00 CONSTIPATION 06/15/2012 DESIREE SPENCE MD V73.81 HPV SCREENING 06/15/2012 DESIREE SPENCE MD V76.10 BREAST CANCER SCREENING 06/15/2012 DESIREE SPENCE MD V76.2 CERVICAL CANCER SCREENING (PAP SMEAR) 11/30/2012 JACOB REYES MD Ot 401.9 HYPERTENSION NOS 11/30/2012 JACOB REYES MD Ot 780.52 INSOMNIA, UNSPECIFIED 11/30/2012 JACOB REYES MD Ot 780.54 HYPERSOMNIA, UNSPECIFIED 11/30/2012 JACOB REYES MD Ot 780.79 OTH MALAISE FATIGUE 11/30/2012 JACOB REYES MD Ot 784.0 HEADACHE 11/30/2012 JACOB REYES MD Ot 786.09 RESPIRATORY ABNORM NEC 02/07/2013 JACOB REYES MD Ot 327.23 OBSTRUCTIVE SLEEP APNEA (ADULT) (PEDIATR 02/13/2013 PATRICIA LYNCH APRN 356.9 NEUROPATHY 02/13/2013 YANEZ DO, KIRK K 356.9 NEUROPATHY 02/13/2013 YANEZ DO, KIRK K 356.9 NEUROPATHY 02/13/2013 YANEZ DO, KIRK K 356.9 NEUROPATHY 02/13/2013 HARLEEN MCGREGOR JEREMIAH BAUER 356.9 NEUROPATHY 02/13/2013 YANEZ DO, KIRK K 356.9 NEUROPATHY 02/13/2013 YANEZ DO, KIRK K 356.9 NEUROPATHY 02/13/2013 DESIREE SPENCE MD N 356.9 NEUROPATHY 02/13/2013 DESIREE SPENCE MD N 356.9 NEUROPATHY 02/13/2013 DESIREE SPENCE MD N 356.9 NEUROPATHY 02/13/2013 [employer] FO[employer] ANKLE SURGEON, CHARISSA R 356.9 NEUROPATHY 02/13/2013 ALDEN SINHAN, CHARISSA R 356.9 NEUROPATHY 02/13/2013 ALDEN SINHAN, CHARISSA R 356.9 NEUROPATHY 02/13/2013 YANEZ DO, KIRK K 356.9 NEUROPATHY 02/13/2013 ALDEN SINHAN, CHARISSA R 356.9 NEUROPATHY 02/13/2013 YANEZ DO, KIRK K 356.9 NEUROPATHY 02/13/2013 YANEZ DO, KIRK K 356.9 NEUROPATHY 02/13/2013 ALDEN SINHAN, CHARISSA R 356.9 NEUROPATHY 02/13/2013 DANIELLA MCGREGOR, [place] A 356.9 NEUROPATHY 02/13/2013 DANIELLA MCGREGOR, [place] A 356.9 NEUROPATHY 02/13/2013 DESIREE SPENCE MD N 356.9 NEUROPATHY 02/13/2013 DESIREE SPENCE MD N 356.9 NEUROPATHY 02/13/2013 DESIREE SPENCE MD N 356.9 NEUROPATHY 02/13/2013 DESIREE SPENCE MD N 356.9 NEUROPATHY 02/13/2013 DESIREE SPENCE MD N 356.9 NEUROPATHY 02/13/2013 DESIREE SPENCE MD N 356.9 NEUROPATHY 02/13/2013 DESIREE SPENCE MD N 356.9 NEUROPATHY 02/13/2013 DESIREE SPENCE MD N 356.9 NEUROPATHY 02/13/2013 DESIREE SPENCE MD N 356.9 NEUROPATHY 02/13/2013 DESIREE SPENCE MD N 356.9 NEUROPATHY 02/22/2013 YANEZ DO, KIRK K V04.81 FLU SHOT 02/22/2013 YANEZ DO, KIRK K V04.81 FLU SHOT 02/22/2013 YANEZ DO, KIRK K V04.81 FLU SHOT 02/22/2013 HARLEEN SINHANJEREMIAH V04.81 FLU SHOT 02/22/2013 YANEZ DO, KIRK K V04.81 FLU SHOT 02/22/2013 YANEZ DO, KIRK K V04.81 FLU SHOT 02/22/2013 JORDY CHRISTIAN, DESIREE N V04.81 FLU SHOT 02/22/2013 JORDY CHRISTIAN, DESIREE N V04.81 FLU SHOT 02/22/2013 JORDY CHRISTIAN, DESIREE N V04.81 FLU SHOT 02/22/2013 ALDEN [employer] AND [employer]KLE SURGEON, CHARISSA R V04.81 FLU SHOT 02/22/2013 ALDEN [employer] AND ANKLE SURGEON, CHARISSA R V04.81 FLU SHOT 02/22/2013 ALDEN [employer] AND ANKLE SURGEON, CHARISSA R V04.81 FLU SHOT 02/22/2013 YANEZ DO, KIRK K V04.81 FLU SHOT 02/22/2013 ALDEN [employer] AND ANKLE SURGEON, CHARISSA R V04.81 FLU SHOT 02/22/2013 YANEZ DO, KIRK K V04.81 FLU SHOT 02/22/2013 YANEZ DO, KIRK K V04.81 FLU SHOT 02/22/2013 ALDEN [employer] AND ANKLE SURGEON, CHARISSA R V04.81 FLU SHOT 02/22/2013 DANIELLA FOOT AND ANKLE SURGEON, [place] A V04.81 FLU SHOT 02/22/2013 DANIELLA APRN, [place] A V04.81 FLU SHOT 02/22/2013 JORDY CHRISTIAN, DESIREE N V04.81 FLU SHOT 02/22/2013 JORDY CHRISTIAN, DESIREE N V04.81 FLU SHOT 02/22/2013 JORDY CHRISTIAN, DESIREE N V04.81 FLU SHOT 02/22/2013 JORDY CHRISTIAN, DESIREE N V04.81 FLU SHOT 02/22/2013 JORDY CHRISTIAN, DESIREE N V04.81 FLU SHOT 02/22/2013 JORDY CHRISTIAN, DESIREE N V04.81 FLU SHOT 02/22/2013 JORDY CHRISTIAN, DESIREE N V04.81 FLU SHOT 02/22/2013 JORDY CHRISTIAN, DESIREE N V04.81 FLU SHOT 02/22/2013 JORDY CHRISTIAN, DESIREE N V04.81 FLU SHOT 02/22/2013 DESIREE SPENCE MD N V04.81 FLU SHOT 02/28/2013 YANEZ DO, KIRK K 706.2 SEBACEOUS CYST 02/28/2013 YANEZ DO, KIRK K 706.2 SEBACEOUS CYST 02/28/2013 HARLEEN MCGREGOR JEREMIAH BAUER 706.2 SEBACEOUS CYST 02/28/2013 YANEZ DO, KIRK K 706.2 SEBACEOUS CYST 02/28/2013 YANEZ DO, KIRK K 706.2 SEBACEOUS CYST 02/28/2013 DESIREE SPENCE MD N 706.2 SEBACEOUS CYST 02/28/2013 DESIREE SPENCE MD N 706.2 SEBACEOUS CYST 02/28/2013 DESIREE SPENCE MD N 706.2 SEBACEOUS CYST 02/28/2013 ALDEN SINHAN, CHARISSA R 706.2 SEBACEOUS CYST 02/28/2013 ALDEN SINHAN, CHARISSA R 706.2 SEBACEOUS CYST 02/28/2013 ALDEN MCGREGOR, CHARISSA R 706.2 SEBACEOUS CYST 02/28/2013 YANEZ DO, KIRK K 706.2 SEBACEOUS CYST 02/28/2013 ALDEN SINHAN, CHARISSA R 706.2 SEBACEOUS CYST 02/28/2013 YANEZ DO, KIRK K 706.2 SEBACEOUS CYST 02/28/2013 YANEZ DO, KIRK K 706.2 SEBACEOUS CYST 02/28/2013 ALDEN MCGREGOR, CHARISSA R 706.2 SEBACEOUS CYST 02/28/2013 DANIELLA MCGREGOR, [place] A 706.2 SEBACEOUS CYST 02/28/2013 DANIELLA MCGREGOR, [place] A 706.2 SEBACEOUS CYST 02/28/2013 DESIREE SPENCE MD N 706.2 SEBACEOUS CYST 02/28/2013 DESIREE SPENCE MD N 706.2 SEBACEOUS CYST 02/28/2013 DESIREE SPENCE MD N 706.2 SEBACEOUS CYST 02/28/2013 DESIREE SPENCE MD N 706.2 SEBACEOUS CYST 02/28/2013 DESIREE SPENCE MD N 706.2 SEBACEOUS CYST 02/28/2013 DESIREE SPENCE MD N 706.2 SEBACEOUS CYST 02/28/2013 DESIREE SPENCE MD N 706.2 SEBACEOUS CYST 02/28/2013 JORDY CHRISTIAN, DESIREE N 706.2 SEBACEOUS CYST 02/28/2013 JORDY CHRISTIAN, DESIREE N 706.2 SEBACEOUS CYST 02/28/2013 DESIREE SPENCE MD 706.2 SEBACEOUS CYST 03/22/2013 RENATA SPIVEY KIRK K V58.32 SUTURE REMOVAL 03/22/2013 DESIREE SPENCE MD N V58.32 SUTURE REMOVAL 03/22/2013 DESIREE SPENCE MD N V58.32 SUTURE REMOVAL 03/22/2013 DESIREE SPENCE MD N V58.32 SUTURE REMOVAL 03/22/2013 [employer] SURGEON, CHARISSA R V58.32 SUTURE REMOVAL 03/22/2013 ALDEN FOOT AND ANKLE SURGEON, CHARISSA R V58.32 SUTURE REMOVAL 03/22/2013 ALDEN [employer] AND ANKLE SURGEON, CHARISSA R V58.32 SUTURE REMOVAL 03/22/2013 RENATA SPIVEY KIRK K V58.32 SUTURE REMOVAL 03/22/2013 ALDEN [employer] AND [employer]KLE SURGEON, CHARISSA R V58.32 SUTURE REMOVAL 03/22/2013 RENATA SPIVEY KIRK K V58.32 SUTURE REMOVAL 03/22/2013 RENATA SPIVEY KIRK K V58.32 SUTURE REMOVAL 03/22/2013 AL[employer] AND [employer] SURGEON, CHARISSA R V58.32 SUTURE REMOVAL 03/22/2013 MEGAN BREWER APRNIDI A V58.32 SUTURE REMOVAL 03/22/2013 DANIELLA MCGREGOR [place] A V58.32 SUTURE REMOVAL 03/22/2013 DESIREE SPENCE MD N V58.32 SUTURE REMOVAL 03/22/2013 DESIREE SPENCE MD N V58.32 SUTURE REMOVAL 03/22/2013 DESIREE SPENCE MD N V58.32 SUTURE REMOVAL 03/22/2013 DESIREE SPENCE MD N V58.32 SUTURE REMOVAL 03/22/2013 DESIREE SPENCE MD N V58.32 SUTURE REMOVAL 03/22/2013 DESIREE SPENCE MD N V58.32 SUTURE REMOVAL 03/22/2013 DESIREE SPENCE MD N V58.32 SUTURE REMOVAL 03/22/2013 DESIREE SPENCE MD N V58.32 SUTURE REMOVAL 03/22/2013 DESIREE SPENCE MD N V58.32 SUTURE REMOVAL 03/22/2013 JORDY MD, DESIREE N V58.32 SUTURE REMOVAL 07/20/2013 DESIREE SPENCE MD N 307.42 PERSISTENT DISORDER OF INITIATING OR MAINTAINING SLEEP 07/20/2013 DESIREE SEPNCE MD N 380.4 IMPACTED CERUMEN 07/20/2013 DESIREE SPENCE MD N 790.5 OTHER NONSPECIFIC ABNORMAL SERUM ENZYME LEVELS 07/20/2013 DESIREE SPENCE MD N 307.42 PERSISTENT DISORDER OF INITIATING OR MAINTAINING SLEEP 07/20/2013 DESIREE SPENCE MD N 380.4 IMPACTED CERUMEN 07/20/2013 DESIREE SPENCE MD N 790.5 OTHER NONSPECIFIC ABNORMAL SERUM ENZYME LEVELS 07/20/2013 DESIREE SPENCE MD N 307.42 PERSISTENT DISORDER OF INITIATING OR MAINTAINING SLEEP 07/20/2013 DESIREE SPENCE MD N 380.4 IMPACTED CERUMEN 07/20/2013 DESIREE SPENCE MD N 790.5 OTHER NONSPECIFIC ABNORMAL SERUM ENZYME LEVELS 07/20/2013 CHARISSA RUANO APRN R 307.42 PERSISTENT DISORDER OF INITIATING OR MAINTAINING SLEEP 07/20/2013 DAVI RUANO APRNINA R 380.4 IMPACTED CERUMEN 07/20/2013 DAVI RUANO APRNINA R 790.5 OTHER NONSPECIFIC ABNORMAL SERUM ENZYME LEVELS 07/20/2013 DAVI RUANO APRNINA R 307.42 PERSISTENT DISORDER OF INITIATING OR MAINTAINING SLEEP 07/20/2013 DAVI RUANO APRNINA R 380.4 IMPACTED CERUMEN 07/20/2013 DAVI RUANO APRNINA R 790.5 OTHER NONSPECIFIC ABNORMAL SERUM ENZYME LEVELS 07/20/2013 DVAI RUANO APRNINA R 307.42 PERSISTENT DISORDER OF INITIATING OR MAINTAINING SLEEP 07/20/2013 ALDEN MCGREGOR CHARISSA R 380.4 IMPACTED CERUMEN 07/20/2013 ALDEN MCGREGOR CHARISSA R 790.5 OTHER NONSPECIFIC ABNORMAL SERUM ENZYME LEVELS 07/20/2013 YANEZ DO, KIRK K 307.42 PERSISTENT DISORDER OF INITIATING OR MAINTAINING SLEEP 07/20/2013 YANEZ DO, KIRK K 380.4 IMPACTED CERUMEN 07/20/2013 YANEZ DO, KIRK K 790.5 OTHER NONSPECIFIC ABNORMAL SERUM ENZYME LEVELS 07/20/2013 ALDEN MCGREGOR CHARISSA R 307.42 PERSISTENT DISORDER OF INITIATING OR MAINTAINING SLEEP 07/20/2013 ALDEN MCGREGOR CHARISSA R 380.4 IMPACTED CERUMEN 07/20/2013 ALDEN FOOT AND ANKLE SURGEON, CHARISSA R 790.5 OTHER NONSPECIFIC ABNORMAL SERUM ENZYME LEVELS 07/20/2013 YANEZ DO, KIRK K 307.42 PERSISTENT DISORDER OF INITIATING OR MAINTAINING SLEEP 07/20/2013 YANEZ DO, KIRK K 380.4 IMPACTED CERUMEN 07/20/2013 YANEZ DO, KIRK K 790.5 OTHER NONSPECIFIC ABNORMAL SERUM ENZYME LEVELS 07/20/2013 YANEZ DO, KIRK K 307.42 PERSISTENT DISORDER OF INITIATING OR MAINTAINING SLEEP 07/20/2013 YANEZ DO, KIRK K 380.4 IMPACTED CERUMEN 07/20/2013 YANEZ DO, KIRK K 790.5 OTHER NONSPECIFIC ABNORMAL SERUM ENZYME LEVELS 07/20/2013 ALDEN FOOT AND ANKLE SURGEON, CHARISSA R 307.42 PERSISTENT DISORDER OF INITIATING OR MAINTAINING SLEEP 07/20/2013 ALDEN FOOT AND ANKLE SURGEON CHARISSA R 380.4 IMPACTED CERUMEN 07/20/2013 ALDEN FOOT AND ANKLE SURGEON, CHARISSA R 790.5 OTHER NONSPECIFIC ABNORMAL SERUM ENZYME LEVELS 07/20/2013 DANIELLA FOOT AND ANKLE SURGEON, [place] A 307.42 PERSISTENT DISORDER OF INITIATING OR MAINTAINING SLEEP 07/20/2013 DANIELLA FOOT AND ANKLE SURGEON, [place] A 380.4 IMPACTED CERUMEN 07/20/2013 DANIELLA FOOT AND ANKLE SURGEON, [place] A 790.5 OTHER NONSPECIFIC ABNORMAL SERUM ENZYME LEVELS 07/20/2013 DANIELLA FOOT AND ANKLE SURGEON, [place] A 307.42 PERSISTENT DISORDER OF INITIATING OR MAINTAINING SLEEP 07/20/2013 DANIELLA FOOT AND ANKLE SURGEON, [place] A 380.4 IMPACTED CERUMEN 07/20/2013 DANIELLA FOOT AND ANKLE SURGEON, [place] A 790.5 OTHER NONSPECIFIC ABNORMAL SERUM ENZYME LEVELS 07/20/2013 DESIREE SPENCE MD N 307.42 PERSISTENT DISORDER OF INITIATING OR MAINTAINING SLEEP 07/20/2013 DESIREE SPENCE MD N 380.4 IMPACTED CERUMEN 07/20/2013 DESIREE SPENCE MD N 790.5 OTHER NONSPECIFIC ABNORMAL SERUM ENZYME LEVELS 07/20/2013 DESIREE SPENCE MD N 307.42 PERSISTENT DISORDER OF INITIATING OR MAINTAINING SLEEP 07/20/2013 DESIREE SPENCE MD N 380.4 IMPACTED CERUMEN 07/20/2013 DESIREE SPENCE MD N 790.5 OTHER NONSPECIFIC ABNORMAL SERUM ENZYME LEVELS 07/20/2013 DESIREE SPECNE MD N 307.42 PERSISTENT DISORDER OF INITIATING OR MAINTAINING SLEEP 07/20/2013 JORDY MD, DESIREE N 380.4 IMPACTED CERUMEN 07/20/2013 DESIREE SPENCE MD N 790.5 OTHER NONSPECIFIC ABNORMAL SERUM ENZYME LEVELS 07/20/2013 DESIREE SPENCE MD N 307.42 PERSISTENT DISORDER OF INITIATING OR MAINTAINING SLEEP 07/20/2013 DESIREE SPENCE MD N 380.4 IMPACTED CERUMEN 07/20/2013 DESIREE SPENCE MD N 790.5 OTHER NONSPECIFIC ABNORMAL SERUM ENZYME LEVELS 07/20/2013 DESIREE SPENCE MD N 307.42 PERSISTENT DISORDER OF INITIATING OR MAINTAINING SLEEP 07/20/2013 DESIREE SPENCE MD N 380.4 IMPACTED CERUMEN 07/20/2013 DESIREE SPENCE MD N 790.5 OTHER NONSPECIFIC ABNORMAL SERUM ENZYME LEVELS 07/20/2013 DESIREE SPENCE MD N 307.42 PERSISTENT DISORDER OF INITIATING OR MAINTAINING SLEEP 07/20/2013 DESIREE SPENCE MD N 380.4 IMPACTED CERUMEN 07/20/2013 DESIREE SPENCE MD N 790.5 OTHER NONSPECIFIC ABNORMAL SERUM ENZYME LEVELS 07/20/2013 DESIREE SPENCE MD N 307.42 PERSISTENT DISORDER OF INITIATING OR MAINTAINING SLEEP 07/20/2013 DESIREE SPENCE MD N 380.4 IMPACTED CERUMEN 07/20/2013 DESIREE SPENCE MD N 790.5 OTHER NONSPECIFIC ABNORMAL SERUM ENZYME LEVELS 07/20/2013 DESIREE SPENCE MD N 307.42 PERSISTENT DISORDER OF INITIATING OR MAINTAINING SLEEP 07/20/2013 DESIREE SPENCE MD N 380.4 IMPACTED CERUMEN 07/20/2013 DESIREE SPENCE MD N 790.5 OTHER NONSPECIFIC ABNORMAL SERUM ENZYME LEVELS 07/20/2013 DESIREE SPENCE MD N 307.42 PERSISTENT DISORDER OF INITIATING OR MAINTAINING SLEEP 07/20/2013 DESIREE SPENCE MD N 380.4 IMPACTED CERUMEN 07/20/2013 DESIREE SPENCE MD N 790.5 OTHER NONSPECIFIC ABNORMAL SERUM ENZYME LEVELS 07/20/2013 SANTIAGO SPENCE MDY N 307.42 PERSISTENT DISORDER OF INITIATING OR MAINTAINING SLEEP 07/20/2013 DESIREE SPENCE MD N 380.4 IMPACTED CERUMEN 07/20/2013 DESIREE SPENCE MD N 790.5 OTHER NONSPECIFIC ABNORMAL SERUM ENZYME LEVELS 2013 [employer]KLE SURGEON, CHARISSA R 683 ACUTE LYMPHADENITIS 2013 ALDEN [employer] AND ANKLE SURGEON, CHARISSA R 683 ACUTE LYMPHADENITIS 2013 [employer] AND ANKLE SURGEON, CHARISSA R 683 ACUTE LYMPHADENITIS 2013 YANEZ DO, KIRK K 683 ACUTE LYMPHADENITIS 2013 [employer] AND ANKLE SURGEON, CHARISSA R 683 ACUTE LYMPHADENITIS 2013 YANEZ DO, KIRK K 683 ACUTE LYMPHADENITIS 2013 YANEZ DO, KIRK K 683 ACUTE LYMPHADENITIS 2013 ALDEN FOOT AND ANKLE SURGEON, CHARISSA R 683 ACUTE LYMPHADENITIS 2013 DANIELLA FOOT AND ANKLE SURGEON, [place] A 683 ACUTE LYMPHADENITIS 2013 DANIELLA FOOT AND ANKLE SURGEON, [place] A 683 ACUTE LYMPHADENITIS 2013 JORDY CHRISTIAN DESIREE N 683 ACUTE LYMPHADENITIS 2013 JORDY CHRISTIAN DESIREE N 683 ACUTE LYMPHADENITIS 2013 JORDY CHRISTIAN DESIREE N 683 ACUTE LYMPHADENITIS 2013 JORDY CHRISTIAN DESIREE N 683 ACUTE LYMPHADENITIS 2013 JORDY CHRISTIAN DESIREE N 683 ACUTE LYMPHADENITIS 2013 JORDY CHRISTIAN DESIREE N 683 ACUTE LYMPHADENITIS 2013 JORDY CHRISTIAN DESIREE N 683 ACUTE LYMPHADENITIS 2013 JORDY CHRISTIAN DESIREE N 683 ACUTE LYMPHADENITIS 2013 JORDY CHRISTIAN DESIREE N 683 ACUTE LYMPHADENITIS 2013 JORDY CHRISTIAN DESIREE N 683 ACUTE LYMPHADENITIS 09/26/2013 ALDEN FO[employer] AND ANKLE SURGEON, CHARISSA R 682.0 CELLULITIS AND ABSCESS OF FACE 09/26/2013 ALDEN FOOT AND ANKLE SURGEON, CHARISSA R 682.0 CELLULITIS AND ABSCESS OF FACE 09/26/2013 ALDEN FOOT AND ANKLE SURGEON, CHARISSA R 682.0 CELLULITIS AND ABSCESS OF FACE 09/26/2013 YANEZ DO, KIRK K 682.0 CELLULITIS AND ABSCESS OF FACE 09/26/2013 ALDEN FOOT AND ANKLE SURGEON, CHARISSA R 682.0 CELLULITIS AND ABSCESS OF FACE 09/26/2013 YANEZ DO, KIRK K 682.0 CELLULITIS AND ABSCESS OF FACE 09/26/2013 YANEZ DO, KIRK K 682.0 CELLULITIS AND ABSCESS OF FACE 09/26/2013 ALDEN MCGREGOR, CHARISSA R 682.0 CELLULITIS AND ABSCESS OF FACE 09/26/2013 DANIELLA MCGREGOR, [place] A 682.0 CELLULITIS AND ABSCESS OF FACE 09/26/2013 DANIELLA MCGREGOR, [place] A 682.0 CELLULITIS AND ABSCESS OF FACE 09/26/2013 DESIREE SPENCE MD N 682.0 CELLULITIS AND ABSCESS OF FACE 09/26/2013 DESIREE SPENCE MD N 682.0 CELLULITIS AND ABSCESS OF FACE 09/26/2013 DESIREE SPENCE MD N 682.0 CELLULITIS AND ABSCESS OF FACE 09/26/2013 DESIREE SPENCE MD N 682.0 CELLULITIS AND ABSCESS OF FACE 09/26/2013 DESIREE SPENCE MD N 682.0 CELLULITIS AND ABSCESS OF FACE 09/26/2013 DESIREE SPENCE MD N 682.0 CELLULITIS AND ABSCESS OF FACE 09/26/2013 DESIREE SPENCE MD N 682.0 CELLULITIS AND ABSCESS OF FACE 09/26/2013 DESIREE SPENCE MD N 682.0 CELLULITIS AND ABSCESS OF FACE 09/26/2013 DESIREE SPENCE MD N 682.0 CELLULITIS AND ABSCESS OF FACE 09/26/2013 DESIREE SPENCE MD N 682.0 CELLULITIS AND ABSCESS OF FACE 09/27/2013 ALDEN MCGREGOR, CHARISSA R 780.60 FEVER, UNSPECIFIED 09/27/2013 ALDEN MCGREGOR, CHARISSA R 780.60 FEVER, UNSPECIFIED 09/27/2013 ALDEN MCGREGOR, CHARISSA R 780.60 FEVER, UNSPECIFIED 09/27/2013 YANEZ DO, KIRK K 780.60 FEVER, UNSPECIFIED 09/27/2013 ALDEN MCGREGOR, CHARISSA R 780.60 FEVER, UNSPECIFIED 09/27/2013 YANEZ DO, KIRK K 780.60 FEVER, UNSPECIFIED 09/27/2013 YANEZ DO, KIRK K 780.60 FEVER, UNSPECIFIED 09/27/2013 ALDEN MCGREGOR, CHARISSA R 780.60 FEVER, UNSPECIFIED 09/27/2013 DANIELLA MCGREGOR, [place] A 780.60 FEVER, UNSPECIFIED 09/27/2013 [place] BREWER APRN A 780.60 FEVER, UNSPECIFIED 09/27/2013 DESIREE SPENCE MD N 780.60 FEVER, UNSPECIFIED 09/27/2013 DESIREE SPENCE MD N 780.60 FEVER, UNSPECIFIED 09/27/2013 DESIREE SPENCE MD 780.60 FEVER, UNSPECIFIED 09/27/2013 DESIREE SPENCE MD N 780.60 FEVER, UNSPECIFIED 09/27/2013 DESIREE SPENCE MD 780.60 FEVER, UNSPECIFIED 09/27/2013 DESIREE SPENCE MD 780.60 FEVER, UNSPECIFIED 09/27/2013 DESIREE SPENCE MD N 780.60 FEVER, UNSPECIFIED 09/27/2013 DESIREE SPENCE MD N 780.60 FEVER, UNSPECIFIED 09/27/2013 DESIREE SPENCE MD 780.60 FEVER, UNSPECIFIED 09/27/2013 DESIREE SPENCE MD 780.60 FEVER, UNSPECIFIED 10/01/2013 ARBEN CHRISTIAN, KELY Thomas Ot 311 DEPRESSIVE DISORDER NEC 10/01/2013 KELY THEODORE MD Ot 401.9 HYPERTENSION NOS 10/01/2013 KELY THEODORE MD Ot 682.0 CELLULITIS OF FACE 10/01/2013 KELY THEODORE MD Ot 729.1 MYALGIA AND MYOSITIS NOS 10/02/2013 ALDEN FOOT AND ANKLE SURGEON, CHARISSA R 784.0 HEADACHE 10/02/2013 ALDEN FOOT AND ANKLE SURGEON, CHARISSA R 784.0 HEADACHE 10/02/2013 YANEZ DO, KIRK K 784.0 HEADACHE 10/02/2013 ALDEN [employer]OT AND ANKLE SURGEON, CHARISSA R 784.0 HEADACHE 10/02/2013 YANEZ DO, KIRK K 784.0 HEADACHE 10/02/2013 YANEZ DO, KIRK K 784.0 HEADACHE 10/02/2013 ALDEN FOOT AND ANKLE SURGEON, CHARISSA R 784.0 HEADACHE 10/02/2013 DANIELLA FOOT AND ANKLE SURGEON, [place] A 784.0 HEADACHE 10/02/2013 [place] BREWER APRN A 784.0 HEADACHE 10/02/2013 DESIREE SPENCE MD N 784.0 HEADACHE 10/02/2013 DESIREE SPENCE MD N 784.0 HEADACHE 10/02/2013 DESIREE SPENCE MD N 784.0 HEADACHE 10/02/2013 DESIREE SPENCE MD N 784.0 HEADACHE 10/02/2013 DESIREE SPENCE MD N 784.0 HEADACHE 10/02/2013 DESIREE SPENCE MD N 784.0 HEADACHE 10/02/2013 DESIREE SPENCE MD N 784.0 HEADACHE 10/02/2013 DESIREE SPENCE MD N 784.0 HEADACHE 10/02/2013 DESIREE SPNECE MD N 784.0 HEADACHE 10/02/2013 DESIREE SPENCE MD N 784.0 HEADACHE 10/04/2013 SAMANTA MCALLISTER MD A Ot 276.1 HYPOSMOLALITY 10/04/2013 SAMANTA MCALLISTER MD A Ot 311 DEPRESSIVE DISORDER NEC 10/04/2013 TAMY MCALLISTER MDNT A Ot 355.9 MONONEURITIS NOS 10/04/2013 SAMANTA MCALLISTER MD A Ot 401.9 HYPERTENSION NOS 10/04/2013 SAMANTA MCALLISTER MD A Ot 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 10/04/2013 TAMY MCALLISTER MDNT A Ot 493.90 ASTHMA, UNSPECIFIED 10/04/2013 TAMY MCALLISTER MDNT A Ot 530.81 ESOPHAGEAL REFLUX 10/04/2013 TAMY MCALLISTER MDNT A Ot 564.09 OTHER CONSTIPATION 10/04/2013 TAMY MCALLISTER MDNT A Ot 564.1 IRRITABLE BOWEL SYNDROME 10/04/2013 SAMANTA MCALLISTER MD Ot 682.0 CELLULITIS OF FACE 10/04/2013 TAMY MCALLISTER MDNT A Ot 684 IMPETIGO 10/04/2013 TAMY MCALLISTER MDNT A Ot 716.90 ARTHROPATHY NOS-UNSPEC 10/04/2013 TAMY MCALLISTER MDNT A Ot 780.57 UNSPECIFIED SLEEP APNEA 10/04/2013 TAMY MCALLISTER MDNT A Ot 784.0 HEADACHE 10/05/2013 DAVI RUANO APRNINA R 473.1 CHRONIC FRONTAL SINUSITIS 10/05/2013 ALDEN MCGREGOR CHARISSA R 787.01 NAUSEA WITH VOMITING 10/05/2013 TAHMINA YANEZ DOA K 473.1 CHRONIC FRONTAL SINUSITIS 10/05/2013 TAHMINA YANEZ DOA K 787.01 NAUSEA WITH VOMITING 10/05/2013 ALDEN MCGREGOR CHARISSA R 473.1 CHRONIC FRONTAL SINUSITIS 10/05/2013 ALDEN MCGREGOR CHARISSA R 787.01 NAUSEA WITH VOMITING 10/05/2013 TAHMINA YANEZ DOA K 473.1 CHRONIC FRONTAL SINUSITIS 10/05/2013 YANEZ DO, KIRK K 787.01 NAUSEA WITH VOMITING 10/05/2013 YANEZ DO, KIRK K 473.1 CHRONIC FRONTAL SINUSITIS 10/05/2013 YANEZ DO, KIRK K 787.01 NAUSEA WITH VOMITING 10/05/2013 ALDEN FOOT AND ANKLE SURGEON, CHARISSA R 473.1 CHRONIC FRONTAL SINUSITIS 10/05/2013 ALDEN FOOT AND ANKLE SURGEON, CHARISSA R 787.01 NAUSEA WITH VOMITING 10/05/2013 DANIELLA FOOT AND ANKLE SURGEON, SAN[place] A 473.1 CHRONIC FRONTAL SINUSITIS 10/05/2013 DANIELLA FOOT AND ANKLE SURGEON, [place] A 787.01 NAUSEA WITH VOMITING 10/05/2013 DANIELLA FOOT AND ANKLE SURGEON, [place] A 473.1 CHRONIC FRONTAL SINUSITIS 10/05/2013 DANIELLA APRN, [place] A 787.01 NAUSEA WITH VOMITING 10/05/2013 DESIREE SPENCE MD 473.1 CHRONIC FRONTAL SINUSITIS 10/05/2013 DESIREE SPENCE MD 787.01 NAUSEA WITH VOMITING 10/05/2013 DESIREE SPENCE MD 473.1 CHRONIC FRONTAL SINUSITIS 10/05/2013 DESIREE SPENCE MD N 787.01 NAUSEA WITH VOMITING 10/05/2013 DESIREE SPENCE MD 473.1 CHRONIC FRONTAL SINUSITIS 10/05/2013 DESIREE SPENCE MD N 787.01 NAUSEA WITH VOMITING 10/05/2013 DESIREE SPENCE MD 473.1 CHRONIC FRONTAL SINUSITIS 10/05/2013 DESIREE SPENCE MD N 787.01 NAUSEA WITH VOMITING 10/05/2013 DESIREE SPENCE MD 473.1 CHRONIC FRONTAL SINUSITIS 10/05/2013 DESIREE SPENCE MD N 787.01 NAUSEA WITH VOMITING 10/05/2013 DESIREE SPENCE MD 473.1 CHRONIC FRONTAL SINUSITIS 10/05/2013 DESIREE SPENCE MD N 787.01 NAUSEA WITH VOMITING 10/05/2013 DESIREE SPENCE MD 473.1 CHRONIC FRONTAL SINUSITIS 10/05/2013 DESIREE SPENCE MD N 787.01 NAUSEA WITH VOMITING 10/05/2013 DESIREE SPENCE MD N 473.1 CHRONIC FRONTAL SINUSITIS 10/05/2013 DESIREE SPENCE MD 787.01 NAUSEA WITH VOMITING 10/05/2013 JORDY MD, DESIREE N 473.1 CHRONIC FRONTAL SINUSITIS 10/05/2013 DESIREE SPENCE MD N 787.01 NAUSEA WITH VOMITING 10/05/2013 DESIREE SPENCE MD 473.1 CHRONIC FRONTAL SINUSITIS 10/05/2013 DESIREE SPENCE MD N 787.01 NAUSEA WITH VOMITING 10/17/2013 YANEZ DO, KIRK K 053.9 HERPES ZOSTER WITHOUT COMPLICATION 10/17/2013 YANEZ DO, KIRK K 053.9 HERPES ZOSTER WITHOUT COMPLICATION 10/17/2013 ALDEN MCGREGOR, CHARISSA R 053.9 HERPES ZOSTER WITHOUT COMPLICATION 10/17/2013 DANIELLA FOOT AND ANKLE SURGEON, [place] A 053.9 HERPES ZOSTER WITHOUT COMPLICATION 10/17/2013 DANIELLA APRN, [place] A 053.9 HERPES ZOSTER WITHOUT COMPLICATION 10/17/2013 DESIREE SPENCE MD N 053.9 HERPES ZOSTER WITHOUT COMPLICATION 10/17/2013 DESIREE SPENCE MD N 053.9 HERPES ZOSTER WITHOUT COMPLICATION 10/17/2013 DESIREE SPENCE MD N 053.9 HERPES ZOSTER WITHOUT COMPLICATION 10/17/2013 DESIREE SPENCE MD N 053.9 HERPES ZOSTER WITHOUT COMPLICATION 10/17/2013 DESIREE SPENCE MD N 053.9 HERPES ZOSTER WITHOUT COMPLICATION 10/17/2013 DESIREE SPENCE MD N 053.9 HERPES ZOSTER WITHOUT COMPLICATION 10/17/2013 DESIREE SPENCE MD N 053.9 HERPES ZOSTER WITHOUT COMPLICATION 10/17/2013 DESIREE SPENCE MD N 053.9 HERPES ZOSTER WITHOUT COMPLICATION 10/17/2013 DESIREE SPENCE MD N 053.9 HERPES ZOSTER WITHOUT COMPLICATION 10/17/2013 DESIREE SPENCE MD N 053.9 HERPES ZOSTER WITHOUT COMPLICATION 10/31/2013 YANEZ DO, KIRK K 695.3 ROSACEA 10/31/2013 ALDEN MCGREGOR CHARISSA R 695.3 ROSACEA 10/31/2013 DANIELLA FOOT AND ANKLE SURGEON, [place] A 695.3 ROSACEA 10/31/2013 DANIELLAMEGAN Leonard APRNIDI A 695.3 ROSACEA 10/31/2013 DESIREE SPENCE MD N 695.3 ROSACEA 10/31/2013 DESIREE SPENCE MD N 695.3 ROSACEA 10/31/2013 DESIREE SPENCE MD N 695.3 ROSACEA 10/31/2013 DESIREE SPENCE MD N 695.3 ROSACEA 10/31/2013 DESIREE SPENCE MD N 695.3 ROSACEA 10/31/2013 DESIREE SPENCE MD N 695.3 ROSACEA 10/31/2013 DESIREE SPENCE MD N 695.3 ROSACEA 10/31/2013 DESIREE SPENCE MD N 695.3 ROSACEA 10/31/2013 DESIREE SPENCE MD N 695.3 ROSACEA 10/31/2013 DESIREE SPENCE MD N 695.3 ROSACEA 12/10/2013 [place] BREWER APRN A 599.0 URINARY TRACT INFECTION 12/10/2013 [place] BREWER APRN A 599.0 URINARY TRACT INFECTION 12/10/2013 DESIREE SPENCE MD N 599.0 URINARY TRACT INFECTION 12/10/2013 DESIREE SPENCE MD N 599.0 URINARY TRACT INFECTION 12/10/2013 DESIREE SPENCE MD N 599.0 URINARY TRACT INFECTION 12/10/2013 DESIREE SPENCE MD N 599.0 URINARY TRACT INFECTION 12/10/2013 EDSIREE SPENCE MD N 599.0 URINARY TRACT INFECTION 12/10/2013 DESIREE SPENCE MD N 599.0 URINARY TRACT INFECTION 12/10/2013 DESIREE SPENCE MD N 599.0 URINARY TRACT INFECTION 12/10/2013 DESIREE SPENCE MD N 599.0 URINARY TRACT INFECTION 12/10/2013 DESIREE SPENCE MD N 599.0 URINARY TRACT INFECTION 12/10/2013 DESIREE SPENCE MD N 599.0 URINARY TRACT INFECTION 12/30/2013 GLORIA AVERY MD Ot 300.00 ANXIETY STATE NOS 12/30/2013 GLORIA AVERY MD Ot 599.0 URIN TRACT INFECTION NOS 12/30/2013 GLORIA AVERY MD Ot V58.69 OTH MED,LT,CURRENT USE 02/05/2014 DESIREE SPENCE MD N 272.4 DYSLIPIDEMIA 02/05/2014 DESIREE SPENCE MD N 788.1 DYSURIA 02/05/2014 DESIREE SPENCE MD N 272.4 DYSLIPIDEMIA 02/05/2014 DESIREE SPENCE MD N 788.1 DYSURIA 02/05/2014 DESIREE SPENCE MD N 272.4 DYSLIPIDEMIA 02/05/2014 DESIREE SPENCE MD N 788.1 DYSURIA 02/05/2014 DESIREE SPENCE MD N 272.4 DYSLIPIDEMIA 02/05/2014 DESIREE SPENCE MD N 788.1 DYSURIA 02/05/2014 SANTIAGO SPENCE MDY N 272.4 DYSLIPIDEMIA 02/05/2014 DESIREE SPENCE MD N 788.1 DYSURIA 02/05/2014 DESIREE SPENCE MD N 272.4 DYSLIPIDEMIA 02/05/2014 DESIREE SPENCE MD N 788.1 DYSURIA 02/05/2014 DESIREE SPENCE MD N 272.4 DYSLIPIDEMIA 02/05/2014 DESIREE SPENCE MD N 788.1 DYSURIA 02/05/2014 DESIREE SPENCE MD N 272.4 DYSLIPIDEMIA 02/05/2014 DESIREE SPENCE MD N 788.1 DYSURIA 02/05/2014 DESIREE SPENCE MD N 272.4 DYSLIPIDEMIA 02/05/2014 DESIREE SPENCE MD N 788.1 DYSURIA 02/07/2014 KAYKAY ANDERS MD P Ot 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 02/07/2014 KAYKAY ANDERS MD P Ot 473.1 CHR FRONTAL SINUSITIS 02/07/2014 KAYKAY ANDERS MD P Ot 473.2 CHR ETHMOIDAL SINUSITIS 02/07/2014 KAYKAY ANDERS MD P Ot 478.0 HYPERTRPH NASAL TURBINAT 03/07/2014 DESIREE SPENCE MD N 276.1 HYPONATREMIA 03/07/2014 DESIREE SPENCE MD N 276.1 HYPONATREMIA 03/07/2014 DESIREE SPENCE MD N 276.1 HYPONATREMIA 03/07/2014 DESIREE SPENCE MD N 276.1 HYPONATREMIA 03/07/2014 DESIREE SPENCE MD N 276.1 HYPONATREMIA 03/27/2014 DESIREE SPENCE MD N 782.2 LOCALIZED SUPERFICIAL SWELLING MASS OR LUMP 03/27/2014 DESIREE SPENCE MD N 782.2 LOCALIZED SUPERFICIAL SWELLING MASS OR LUMP 03/27/2014 DESIREE SPENCE MD N 782.2 LOCALIZED SUPERFICIAL SWELLING MASS OR LUMP 03/27/2014 DESIREE SPENCE MD N 782.2 LOCALIZED SUPERFICIAL SWELLING MASS OR LUMP 04/17/2014 MARTITA CHRISTIAN, KAYKAY P Ot 473.9 04/17/2014 MARTITA CHRISTIAN, KAYKAY P Ot 478.0 04/17/2014 KAYKAY ANDERS MD P Ot V72.63 04/17/2014 MARTITA CHRISTIAN KAYKAY P Ot V74.8 04/17/2014 DESIREE SPENCE MD N Ot 610.0 04/17/2014 DESIREE SPENCE MD Ot 793.89 04/29/2014 DESIREE SPENCE MD Ot 793.89 04/30/2014 DESIREE SPENCE MD N Ot 610.0 05/07/2014 KAYKAY ANDERS MD P Ot 473.9 05/07/2014 MARTITA CHRISTIAN, KAYKAY P Ot 478.0 05/07/2014 KAYKAY ANDERS MD P Ot V72.63 05/07/2014 KAYKAY ANDERS MD P Ot V74.8 05/21/2014 DESIREE SPENCE MD N 705.83 HIDRADENITIS 05/21/2014 DESIREE SPENCE MD N 705.83 HIDRADENITIS 06/03/2014 DESIREE SPENCE MD Ot 610.0 06/03/2014 DESIREE SPENCE MD Ot 793.89 06/08/2014 DESIREE SPENCE MD Ot 610.0 06/08/2014 DESIREE SPENCE MD Ot 793.89 07/10/2014 DESIREE SPENCE MD N 327.23 OBSTRUCTIVE SLEEP APNEA (ADULT) (PEDIATRIC) 07/10/2014 DESIREE SPENCE MD N 493.90 ASTHMA UNSPECIFIED 08/12/2014 Ot 793.80 08/12/2014 Ot V76.12 08/12/2014 Ot 368.9 08/12/2014 Ot 784.59 08/12/2014 Ot 780.93 08/12/2014 Ot V76.12 08/12/2014 Ot 793.89 08/12/2014 Ot V76.12 08/12/2014 Ot 610.1 08/12/2014 Ot 793.80 08/12/2014 ARBEN CHRISTIAN, KELY F Ot 610.0 08/12/2014 JORDY CHRISTIAN, DESIREE N Ot 610.0 08/12/2014 JORDY CHRISTIAN, DESIREE N Ot 793.89 08/12/2014 JORDY CHRISTIAN, DESIREE N Ot 790.5 08/12/2014 MARTITA CHRISTIAN, KAYKAY P Ot 473.9 08/12/2014 MARTITA CHRISTIAN, KAYKAY P Ot 473.9 08/12/2014 MARTITA CHRISTIAN, KAYKAY P Ot 478.0 08/12/2014 MARTITA CHRISTIAN, KAYKAY P Ot V72.63 08/12/2014 MARTITA CHRISTIAN, KAYKAY P Ot V74.8 08/12/2014 JORDY CHRISTIAN, DESIREE Leonard Ot 610.0 08/12/2014 JORDY CHRISTIAN, DESIREE Leonard Ot 793.89 08/12/2014 Ot 793.80 08/13/2014 JORDY CHRISTIAN, DESIREE N 706.2 SEBACEOUS CYST 08/15/2014 Ot 793.80 09/09/2014 AXEL CHRISTIAN, GREYSON Bradford Ot 706.2 10/01/2014 Ot 793.80 10/05/2014 AXEL CHRISTIAN, GREYSON Bradford Ot 706.2 10/08/2014 Ot 793.80 02/05/2015 JORDY CHRISTIAN, DESIREE Leonard Ot 611.9 07/29/2015 JORDY CHRISTIAN, DESIREE Leonard Ot Z12.31 08/15/2015 DANIELE MACIAS DO Ot Z01.818 ENCOUNTER FOR OTHER PREPROCEDURAL EXAMIN 08/18/2015 DANIELE MACIAS DO Ot Z01.818 08/19/2015 JORDY CHRISTIAN, DESIREE Leonard Ot Z12.31 08/19/2015 DANIELE MACIAS DO Ot K29.70 GASTRITIS, UNSPECIFIED, WITHOUT BLEEDING 08/19/2015 DANIELE MACIAS DO Ot K31.7 POLYP OF STOMACH AND DUODENUM 08/19/2015 DANIELE MACIAS DO Ot K44.9 DIAPHRAGMATIC HERNIA WITHOUT OBSTRUCTION 08/19/2015 DANIELE MACIAS DO Ot K57.30 DVRTCLOS OF LG INT W/O PERFORATION OR AB 08/19/2015 DANIELE MACIAS DO Ot K92.1 MELENA 08/19/2015 DANIELE MACIAS DO Ot Z80.0 FAMILY HISTORY OF MALIGNANT NEOPLASM OF 08/19/2015 DANIELE MACIAS DO D Ot Z86.010 PERSONAL HISTORY OF COLONIC POLYPS 03/09/2016 DESIREE SPENCE MD Ot F32.9 MAJOR DEPRESSIVE DISORDER, SINGLE EPISOD 03/09/2016 DESIREE SPENCE MD Ot I48.91 UNSPECIFIED ATRIAL FIBRILLATION 03/09/2016 Ot V76.12 OTH SCREEN MAMMO-MALIGN NEOPLASM OF IVANNA 03/09/2016 Ot 793.89 OTH (ABN) FINDINGS ON RADIOLOGICAL EXAMI 03/09/2016 Ot V76.12 OTH SCREEN MAMMO-MALIGN NEOPLASM OF IVANNA 03/09/2016 Ot 610.1 DIFFUS CYSTIC MASTOPATHY 03/09/2016 Ot 793.80 UNSPEC ABNORMAL MAMMOGRAM 03/09/2016 ARBEN CHRISTIAN, KELY Thomas Ot 610.0 SOLITARY CYST OF BREAST 03/09/2016 DESIREE SPENCE MD Ot 610.0 SOLITARY CYST OF BREAST 03/09/2016 DESIREE SPENCE MD Ot 793.89 OTH (ABN) FINDINGS ON RADIOLOGICAL EXAMI 03/09/2016 DESIREE SPENCE MD Ot 790.5 ABN SERUM ENZY LEVEL NEC 03/09/2016 MARTITA CHRISTIAN, KAYKAY Falcon Ot 473.9 CHRONIC SINUSITIS NOS 03/09/2016 KAYKAY ANDERS MD Ot 473.9 CHRONIC SINUSITIS NOS 03/09/2016 KAYKAY ANDERS MD Ot 478.0 HYPERTRPH NASAL TURBINAT 03/09/2016 KAYKAY ANDERS MD Ot V72.63 PRE-PROCEDURAL LABORATORY EXAMINATION 03/09/2016 KAYKAY ANDERS MD Ot V74.8 SCREEN-BACTERIAL DIS NEC 03/09/2016 DESIREE SPENCE MD Ot 610.0 SOLITARY CYST OF BREAST 03/09/2016 DESIREE SPENCE MD Ot 793.89 OTH (ABN) FINDINGS ON RADIOLOGICAL EXAMI 03/09/2016 Ot 793.80 UNSPEC ABNORMAL MAMMOGRAM 03/09/2016 AXEL CHRISTIAN, GREYSON Bradford Ot 706.2 SEBACEOUS CYST 03/09/2016 DESIREE SPENCE MD Ot 611.9 BREAST DISORDER NOS 03/09/2016 DESIREE SPENCE MD Ot Z12.31 ENCNTR SCREEN MAMMOGRAM FOR MALIGNANT NE 03/09/2016 DESIREE SPENCE MD Ot I48.91 UNSPECIFIED ATRIAL FIBRILLATION 03/16/2016 Ot V76.12 OTH SCREEN MAMMO-MALIGN NEOPLASM OF IVANNA 03/16/2016 Ot 793.89 OTH (ABN) FINDINGS ON RADIOLOGICAL EXAMI 03/16/2016 Ot V76.12 OTH SCREEN MAMMO-MALIGN NEOPLASM OF IVANNA 03/16/2016 Ot 610.1 DIFFUS CYSTIC MASTOPATHY 03/16/2016 Ot 793.80 UNSPEC ABNORMAL MAMMOGRAM 03/16/2016 ARBEN CHRISTIAN, KELY Thomas Ot 610.0 SOLITARY CYST OF BREAST 03/16/2016 DESIREE SPENCE MD Ot 610.0 SOLITARY CYST OF BREAST 03/16/2016 DESIREE SPENCE MD Ot 793.89 OTH (ABN) FINDINGS ON RADIOLOGICAL EXAMI 03/16/2016 DESIREE SPENCE MD Ot 790.5 ABN SERUM ENZY LEVEL NEC 03/16/2016 MARTITA CHRISTIAN, KAYKAY Falcon Ot 473.9 CHRONIC SINUSITIS NOS 03/16/2016 KAYKAY ANDERS MD Ot 473.9 CHRONIC SINUSITIS NOS 03/16/2016 KAYKAY ANDERS MD Ot 478.0 HYPERTRPH NASAL TURBINAT 03/16/2016 MARTITA CHRISTIAN, KAYKAY Falcon Ot V72.63 PRE-PROCEDURAL LABORATORY EXAMINATION 03/16/2016 MARTITA CHRISTIAN, KAYKAY Falcon Ot V74.8 SCREEN-BACTERIAL DIS NEC 03/16/2016 DESIREE SPENCE MD Ot 610.0 SOLITARY CYST OF BREAST 03/16/2016 DESIREE SPENCE MD Ot 793.89 OTH (ABN) FINDINGS ON RADIOLOGICAL EXAMI 03/16/2016 Ot 793.80 UNSPEC ABNORMAL MAMMOGRAM 03/16/2016 AXEL CHRISTIAN, GREYSON Bradford Ot 706.2 SEBACEOUS CYST 03/16/2016 DESIREE SPENCE MD Ot 611.9 BREAST DISORDER NOS 03/16/2016 DESIREE SPENCE MD Ot Z12.31 ENCNTR SCREEN MAMMOGRAM FOR MALIGNANT NE 03/19/2016 KALANI SANDERS MD Ot I48.91 UNSPECIFIED ATRIAL FIBRILLATION 03/23/2016 ROBERTO CHRISTIAN, Rita FRANK Ot I48.91 UNSPECIFIED ATRIAL FIBRILLATION 03/23/2016 Rita MEJIA MD Ot R07.9 CHEST PAIN, UNSPECIFIED 03/24/2016 ISABEL PA, MADDIE L Ot I48.2 CHRONIC ATRIAL FIBRILLATION 03/24/2016 ISABEL TODD, MADDIE Olguin Ot M79.631 PAIN IN RIGHT FOREARM 03/24/2016 ISABEL TODD, MADDIE Olguin Ot R00.2 PALPITATIONS 03/24/2016 ISABEL TODD, MADDIE Olguin Ot Z79.899 OTHER TAPE STRINGER (CURRENT) DRUG THERAPY 03/25/2016 ISABEL TODD, MADDIE L Ot I48.2 CHRONIC ATRIAL FIBRILLATION 03/25/2016 ISABEL TODD, MADDIE Olguin Ot M79.631 PAIN IN RIGHT FOREARM 03/25/2016 ISABEL TODD, MADDIE Olguin Ot R00.2 PALPITATIONS 03/25/2016 ISABEL TODD, MADDIE Olguin Ot Z79.899 OTHER ALF (CURRENT) DRUG THERAPY 03/25/2016 DESIREE SPENCE MD Ot R47.81 SLURRED SPEECH 03/26/2016 DESIREE SPENCE MD Ot R47.81 SLURRED SPEECH 03/27/2016 KALANI SANDERS MD Ot I48.91 UNSPECIFIED ATRIAL FIBRILLATION 04/13/2016 KALANI SANDERS MD Ot I48.91 UNSPECIFIED ATRIAL FIBRILLATION 04/15/2016 Rita MEJIA MD Ot I48.91 UNSPECIFIED ATRIAL FIBRILLATION 04/15/2016 Rita MEJIA MD Ot R07.9 CHEST PAIN, UNSPECIFIED 04/15/2016 Rita MEJIA MD Ot I48.0 PAROXYSMAL ATRIAL FIBRILLATION 04/15/2016 Rita MEJIA MD Ot R06.02 SHORTNESS OF BREATH 04/15/2016 Rita MEJIA MD Ot R07.9 CHEST PAIN, UNSPECIFIED 04/15/2016 Rita MEJIA MD Ot R94.39 ABNORMAL RESULT OF OTHER CARDIOVASCULAR 04/15/2016 Rita MEJIA MD Ot Z79.01 ALF (CURRENT) USE OF ANTICOAGULANT 04/15/2016 Rita MEJIA MD Ot Z79.899 OTHER TAPE STRINGER (CURRENT) DRUG THERAPY 04/16/2016 DESIREE SPENCE MD Ot R47.81 SLURRED SPEECH 05/06/2016 Rita MEJIA MD Ot I48.91 UNSPECIFIED ATRIAL FIBRILLATION 05/06/2016 ROBERTO CHRISTIAN Rita FRANK Ot R07.9 CHEST PAIN, UNSPECIFIED 05/06/2016 ROBERTO CHRISTIAN, Rita FRANK Ot I48.91 UNSPECIFIED ATRIAL FIBRILLATION 05/06/2016 ROBERTO CHRISTIAN, Rita FRANK Ot R07.9 CHEST PAIN, UNSPECIFIED 05/12/2016 KAREEM CHRISTIAN, ELIZABETH R Ot F32.9 MAJOR DEPRESSIVE DISORDER, SINGLE EPISOD 05/12/2016 KAREEM CHRISTIAN, ELIZABETH R Ot F41.9 ANXIETY DISORDER, UNSPECIFIED 05/12/2016 KAREEM CHRISTIAN, ELIZABETH R Ot G47.30 SLEEP APNEA, UNSPECIFIED 05/12/2016 KAREEM CHRISTIAN, ELIZABETH R Ot I10 ESSENTIAL (PRIMARY) HYPERTENSION 05/12/2016 KAREEM CHRISTIAN, ELIZABETH R Ot I16.0 HYPERTENSIVE URGENCY 05/12/2016 KAREEM CHRISTIAN, ELIZABETH R Ot I48.0 PAROXYSMAL ATRIAL FIBRILLATION 05/12/2016 KAREEM CHRISTIAN, ELIZABETH R Ot J45.909 UNSPECIFIED ASTHMA, UNCOMPLICATED 05/12/2016 KAREEM CHRISTIAN, ELIZABETH R Ot K21.9 GASTRO-ESOPHAGEAL REFLUX DISEASE WITHOUT 05/12/2016 KAREEM CHRISTIAN, ELIZABETH R Ot R07.89 OTHER CHEST PAIN 05/12/2016 KAREEM CHRISTIAN, ELIZABETH R Ot Z79.899 OTHER TAPE STRINGER (CURRENT) DRUG THERAPY 05/12/2016 KAREEM CHRISTIAN, ELIZABETH R Ot Z83.3 FAMILY HISTORY OF DIABETES MELLITUS 05/12/2016 ROBERTO CHRISTIAN, Rita FRANK Ot I48.91 UNSPECIFIED ATRIAL FIBRILLATION 05/12/2016 ROBERTO CHRISTIAN, Rita FRANK Ot R07.9 CHEST PAIN, UNSPECIFIED 05/12/2016 JORDY CHRISTIAN, DESIREE Leonard Ot R47.81 SLURRED SPEECH 05/12/2016 ROBERTO CHRISTIAN, Rita FRANK Ot I48.91 UNSPECIFIED ATRIAL FIBRILLATION 05/12/2016 ROBERTO CHRISTIAN, Rita FRANK Ot R07.9 CHEST PAIN, UNSPECIFIED 05/12/2016 TOMMY CHRISTIAN, KALANI Fischer Ot I48.91 UNSPECIFIED ATRIAL FIBRILLATION 05/16/2016 MADDIE CROCKER Ot E87.1 HYPO-OSMOLALITY AND HYPONATREMIA 05/16/2016 MADDIE CROCKER Ot I10 ESSENTIAL (PRIMARY) HYPERTENSION 05/16/2016 ISABEL PA, MADDIE L Ot K29.70 GASTRITIS, UNSPECIFIED, WITHOUT BLEEDING 05/16/2016 ISABEL TODD, MADDIE L Ot K76.0 FATTY (CHANGE OF) LIVER, NOT ELSEWHERE C 05/16/2016 ISABEL TODDLASHELLEN L Ot R07.89 OTHER CHEST PAIN 05/16/2016 ISABEL TODD, MADDIE L Ot R07.9 CHEST PAIN, UNSPECIFIED 05/16/2016 ISABEL TODD MADDIE L Ot R10.13 EPIGASTRIC PAIN 05/16/2016 ISABEL TODD MADDIE L Ot Z79.899 OTHER ALF (CURRENT) DRUG THERAPY 05/18/2016 ISABEL TODD, MADDIE L Ot E87.1 HYPO-OSMOLALITY AND HYPONATREMIA 05/18/2016 ISABEL TODD MADDIE L Ot I10 ESSENTIAL (PRIMARY) HYPERTENSION 05/18/2016 ISABEL TODD MADDIE L Ot K29.70 GASTRITIS, UNSPECIFIED, WITHOUT BLEEDING 05/18/2016 ISABEL TODD MADDIE L Ot K76.0 FATTY (CHANGE OF) LIVER, NOT ELSEWHERE C 05/18/2016 ISABEL TODD MADDIE L Ot R07.89 OTHER CHEST PAIN 05/18/2016 ISABEL TODD MADDIE L Ot R07.9 CHEST PAIN, UNSPECIFIED 05/18/2016 ISABEL TODD MADDIE L Ot R10.13 EPIGASTRIC PAIN 05/18/2016 ISABEL TODD MADDIE L Ot Z79.899 OTHER TAPE STRINGER (CURRENT) DRUG THERAPY 05/18/2016 ISABEL TODD MADDIE L Ot E87.1 HYPO-OSMOLALITY AND HYPONATREMIA 05/18/2016 ISABEL TODD MADDIE L Ot I10 ESSENTIAL (PRIMARY) HYPERTENSION 05/18/2016 ISABEL TODD MADDIE L Ot K29.70 GASTRITIS, UNSPECIFIED, WITHOUT BLEEDING 05/18/2016 ISABEL TODD MADDIE L Ot K76.0 FATTY (CHANGE OF) LIVER, NOT ELSEWHERE C 05/18/2016 ISABEL TODD MADDIE L Ot R07.89 OTHER CHEST PAIN 05/18/2016 ISABEL TODD MADDIE L Ot R07.9 CHEST PAIN, UNSPECIFIED 05/18/2016 ISABEL TODD MADDIE L Ot R10.13 EPIGASTRIC PAIN 05/18/2016 ISABEL TODD MADDIE L Ot Z79.899 OTHER TAPE STRINGER (CURRENT) DRUG THERAPY 05/19/2016 Rita MEJIA MD Ot I48.0 PAROXYSMAL ATRIAL FIBRILLATION 05/19/2016 Rita MEJIA MD Ot R06.02 SHORTNESS OF BREATH 05/19/2016 Rita MEJIA MD Ot R07.9 CHEST PAIN, UNSPECIFIED 05/19/2016 Rita MEJIA MD Ot R94.39 ABNORMAL RESULT OF OTHER CARDIOVASCULAR 05/19/2016 Rita MEJIA MD Ot Z79.01 TAPE STRINGER (CURRENT) USE OF ANTICOAGULANT 05/19/2016 Rita MEJIA MD, Ot Z79.899 OTHER ALF (CURRENT) DRUG THERAPY 06/20/2016 Rita MEJIA MD, Ot I48.91 UNSPECIFIED ATRIAL FIBRILLATION 06/20/2016 Rita MEJIA MD Ot R07.9 CHEST PAIN, UNSPECIFIED 06/26/2016 Rita MEJIA MD Ot I48.91 UNSPECIFIED ATRIAL FIBRILLATION 06/26/2016 Rita MEJIA MD Ot R07.9 CHEST PAIN, UNSPECIFIED 07/01/2016 Ot V76.12 OTH SCREEN MAMMO-MALIGN NEOPLASM OF IVANNA 07/01/2016 Ot 793.89 OTH (ABN) FINDINGS ON RADIOLOGICAL EXAMI 07/01/2016 Ot V76.12 OTH SCREEN MAMMO-MALIGN NEOPLASM OF IVANNA 07/01/2016 Ot 610.1 DIFFUS CYSTIC MASTOPATHY 07/01/2016 Ot 793.80 UNSPEC ABNORMAL MAMMOGRAM 07/01/2016 KELY THEODORE MD Ot 610.0 SOLITARY CYST OF BREAST 07/01/2016 DESIREE SPENCE MD Ot 610.0 SOLITARY CYST OF BREAST 07/01/2016 DESIREE SPENCE MD Ot 793.89 OTH (ABN) FINDINGS ON RADIOLOGICAL EXAMI 07/01/2016 DESIREE SPENCE MD Ot 790.5 ABN SERUM ENZY LEVEL NEC 07/01/2016 KAYKAY ANDERS MD Ot 473.9 CHRONIC SINUSITIS NOS 07/01/2016 KAYKAY ANDERS MD Ot 473.9 CHRONIC SINUSITIS NOS 07/01/2016 KAYKAY ANDERS MD Ot 478.0 HYPERTRPH NASAL TURBINAT 07/01/2016 KAYKAY ANDERS MD Ot V72.63 PRE-PROCEDURAL LABORATORY EXAMINATION 07/01/2016 MARTITA CHRISTIAN, KAYKAY Falcon Ot V74.8 SCREEN-BACTERIAL DIS NEC 07/01/2016 DESIREE SPENCE MD Ot 610.0 SOLITARY CYST OF BREAST 07/01/2016 DESIREE SPENCE MD Ot 793.89 OTH (ABN) FINDINGS ON RADIOLOGICAL EXAMI 07/01/2016 Ot 793.80 UNSPEC ABNORMAL MAMMOGRAM 07/01/2016 AXEL CHRISTIAN, GREYSON Bradford Ot 706.2 SEBACEOUS CYST 07/01/2016 DESIREE SPENCE MD Ot 611.9 BREAST DISORDER NOS 07/01/2016 DESIREE SPENCE MD Ot Z12.31 ENCNTR SCREEN MAMMOGRAM FOR MALIGNANT NE 07/01/2016 TOMMY CHRISTIAN, KALANI Fischer Ot I48.91 UNSPECIFIED ATRIAL FIBRILLATION 07/01/2016 ROBERTO CHRISTIAN, Rita FRANK Ot I48.91 UNSPECIFIED ATRIAL FIBRILLATION 07/01/2016 ROBERTO CHRISTIAN, Rita FRANK Ot R07.9 CHEST PAIN, UNSPECIFIED 07/01/2016 DESIREE SPENCE MD Ot R47.81 SLURRED SPEECH 07/01/2016 ROBERTO CHRISTIAN, Rita FRANK Ot I48.91 UNSPECIFIED ATRIAL FIBRILLATION 07/01/2016 ROBERTO CHRISTIAN, Rita FRANK Ot R07.9 CHEST PAIN, UNSPECIFIED 07/01/2016 ROBERTO CHRISTIAN, Rita FRANK Ot I48.0 PAROXYSMAL ATRIAL FIBRILLATION 07/01/2016 Rita MEJIA MD Ot Z79.899 OTHER TAPE STRINGER (CURRENT) DRUG THERAPY 07/20/2016 Rita MEJIA MD Ot I48.0 PAROXYSMAL ATRIAL FIBRILLATION 07/20/2016 Rita MEJIA MD Ot Z79.899 OTHER TAPE STRINGER (CURRENT) DRUG THERAPY 04/29/2017 DESIREE SPENCE MD Ot Z12.31 ENCNTR SCREEN MAMMOGRAM FOR MALIGNANT NE 05/16/2017 DESIREE SPENCE MD Ot E87.1 HYPO-OSMOLALITY AND HYPONATREMIA 05/16/2017 DESIREE SPENCE MD Ot R05 COUGH 05/16/2017 DESIREE SPENCE MD Ot R09.81 NASAL CONGESTION 05/16/2017 DESIREE SPENCE MD Ot Z12.31 ENCNTR SCREEN MAMMOGRAM FOR MALIGNANT NE 06/10/2017 DESIREE SPENCE MD Ot E87.1 HYPO-OSMOLALITY AND HYPONATREMIA 06/10/2017 DESIREE SPENCE MD Ot R05 COUGH 06/10/2017 DESIREE SPENCE MD Ot R09.81 NASAL CONGESTION 06/10/2017 DESIREE SPENCE MD Ot Z12.31 ENCNTR SCREEN MAMMOGRAM FOR MALIGNANT NE 05/11/2018 AGUSTINA MA APRN Ot Z12.31 ENCNTR SCREEN MAMMOGRAM FOR MALIGNANT NE 05/15/2018 ARBEN CHRISTIAN, KELY Thomas Ot 610.0 SOLITARY CYST OF BREAST 05/15/2018 DESIREE SPENCE MD Ot 610.0 SOLITARY CYST OF BREAST 05/15/2018 DESIREE SPENCE MD Ot 793.89 OTH (ABN) FINDINGS ON RADIOLOGICAL EXAMI 05/15/2018 DESIREE SPENCE MD Ot 790.5 ABN SERUM ENZY LEVEL NEC 05/15/2018 KAYKAY ANDERS MD Ot 473.9 CHRONIC SINUSITIS NOS 05/15/2018 KAYKAY ANDERS MD Ot 473.9 CHRONIC SINUSITIS NOS 05/15/2018 KAYKAY ANDERS MD Ot 478.0 HYPERTRPH NASAL TURBINAT 05/15/2018 KAYKAY ANDERS MD Ot V72.63 PRE-PROCEDURAL LABORATORY EXAMINATION 05/15/2018 KAYKAY ANDERS MD Ot V74.8 SCREEN-BACTERIAL DIS NEC 05/15/2018 DESIREE SPENCE MD Ot 610.0 SOLITARY CYST OF BREAST 05/15/2018 DESIREE SPENCE MD Ot 793.89 OTH (ABN) FINDINGS ON RADIOLOGICAL EXAMI 05/15/2018 Ot 793.80 UNSPEC ABNORMAL MAMMOGRAM 05/15/2018 AXEL CHRISTIAN, GREYSON Bradford Ot 706.2 SEBACEOUS CYST 05/15/2018 DESIREE SPENCE MD Ot 611.9 BREAST DISORDER NOS 05/15/2018 DESIREE SPENCE MD Ot Z12.31 ENCNTR SCREEN MAMMOGRAM FOR MALIGNANT NE 05/15/2018 KALANI SANDERS MD Ot I48.91 UNSPECIFIED ATRIAL FIBRILLATION 05/15/2018 Rita MEJIA MD Ot I48.91 UNSPECIFIED ATRIAL FIBRILLATION 05/15/2018 ROBERTO CHRISTIAN, M MONIKA Ot R07.9 CHEST PAIN, UNSPECIFIED 05/15/2018 JORDY CHRISTIAN, DESIREE Leonard Ot R47.81 SLURRED SPEECH 05/15/2018 ROBERTO CHRISTIAN, Rita FRANK Ot I48.91 UNSPECIFIED ATRIAL FIBRILLATION 05/15/2018 ROBERTO CHRISTIAN, Rita FRANK Ot R07.9 CHEST PAIN, UNSPECIFIED 05/15/2018 JORDY CHRISTIAN, DESIREE Leonard Ot E87.1 HYPO-OSMOLALITY AND HYPONATREMIA 05/15/2018 JORDY CHRISTIAN, DESIREE Leonard Ot R05 COUGH 05/15/2018 DESIREE SPENCE MD Ot R09.81 NASAL CONGESTION 05/15/2018 DESIREE SPENCE MD Ot Z12.31 ENCNTR SCREEN MAMMOGRAM FOR MALIGNANT NE 05/15/2018 AGUSTINA MA FOOT AND ANKLE SURGEON Ot Z12.31 ENCNTR SCREEN MAMMOGRAM FOR MALIGNANT NE 05/16/2018 AGUSTINA MA FOOT AND ANKLE SURGEON Ot Z12.31 ENCNTR SCREEN MAMMOGRAM FOR MALIGNANT NE 06/05/2018 JASPREET MEJIA MD R Ot E87.6 HYPOKALEMIA 06/05/2018 JASPREET MEJIA MD R Ot I12.9 HYPERTENSIVE CHRONIC KIDNEY DISEASE W ST 06/05/2018 ROBERTO CHRISTIAN, JASPREET R Ot N18.1 CHRONIC KIDNEY DISEASE, STAGE 1 06/08/2018 JASPREET MEJIA MD R Ot E87.6 HYPOKALEMIA 06/08/2018 JASPREET MEJIA MD R Ot I12.9 HYPERTENSIVE CHRONIC KIDNEY DISEASE W ST 06/08/2018 JASPREET MEJIA MD R Ot N18.1 CHRONIC KIDNEY DISEASE, STAGE 1 06/08/2018 AGUSTINA MA FOOT AND ANKLE SURGEON Ot Z12.31 ENCNTR SCREEN MAMMOGRAM FOR MALIGNANT NE 06/22/2018 JASPREET MEJIA MD R Ot E87.6 HYPOKALEMIA 06/22/2018 JASPREET MEJIA MD R Ot I12.9 HYPERTENSIVE CHRONIC KIDNEY DISEASE W ST 06/22/2018 JASPREET MEJIA MD R Ot N18.1 CHRONIC KIDNEY DISEASE, STAGE 1 07/21/2018 ROBERTO CHRISTIAN, Rita FRANK Ot I10 ESSENTIAL (PRIMARY) HYPERTENSION 08/09/2018 ROBERTO CHRISTIAN, M MONIKA Ot I10 ESSENTIAL (PRIMARY) HYPERTENSION 09/12/2018 JASPREET MEJIA MD, Ot E21.1 SECONDARY HYPERPARATHYROIDISM, NOT ELSEW 09/12/2018 JASPREET MEJIA MD, Ot E87.1 HYPO-OSMOLALITY AND HYPONATREMIA 09/12/2018 JASPREET MEJIA MD, Ot E87.6 HYPOKALEMIA 09/12/2018 JASPREET MEJIA MD, Ot I12.9 HYPERTENSIVE CHRONIC KIDNEY DISEASE W ST 09/12/2018 JASPREET MEJIA MD, Ot N18.1 CHRONIC KIDNEY DISEASE, STAGE 1 09/12/2018 JASPREET MEJIA MD, Ot R82.998 OTHER ABNORMAL FINDINGS IN URINE Procedures Code Description [place] [address] ROUTINE VENIPUNCTURE 03/08/2012 32967 ELECTROLYTE PANEL 03/08/2012 28803 LIPID PANEL 03/08/2012 27792 VITAMIN D 25-HYDROXY (D2,D3 , TOTAL) 03/09/2012 69719 HEMOCCULT 06/15/2012 56108 HEMOCCULT 06/19/2012 69332 PAP SMEAR 06/19/2012 [id number] GYNECOLOGIC ADDENDUM REPORT (RESULT ONLY) 06/19/2012 48004 MAMMOGRAM, SCREENING 06/20/2012 Q0091 PAP SMEAR OBTAIN SMEAR 06/20/2012 91926 MAMMOGRAM DX, RIGHT 07/06/2012 43852 PSYCH PHARM MGMT 07/06/2012 Neurology Reyes, Jacob 07/10/2012 79827 SLEEP STUDY 12/04/2012 85527 MAMMOGRAM DX, RIGHT 01/15/2013 G0008 FLU ADMINISTRATION ( MEDICARE ONLY) 02/22/2013 83139 ROUTINE VENIPUNCTURE 03/01/2013 [id number] GFR CALC (RESULT ONLY) 03/01/2013 56407 CMP 03/01/2013 03076 LIPID PANEL 03/01/2013 59157 VIT B 12 03/01/2013 17583 FOLATE 03/01/2013 42726 EXCISION BENIGN LESION 0.6- 1 cm (spcify location in [facility] description) 03/15/2013 57592 MAMMOGRAM DX, SIMON 03/22/2013 15727 ROUTINE VENIPUNCTURE 07/20/2013 20982 CMP 07/20/2013 59495 ROUTINE VENIPUNCTURE 08/02/2013 87326 US LIVER ULTRASOUND 08/02/2013 25604 GGT 08/02/2013 98108 ROUTINE VENIPUNCTURE 09/10/2013 14936 CBC 09/10/2013 [id number] GFR CALC (RESULT ONLY) 09/10/2013 25082 CMP 09/10/2013 66187 CARBAMAZAPINE (TEGRETOL) TOTAL 09/10/2013 35613 VITAMIN D 25-HYDROXY (D2,D3 , TOTAL) 09/10/2013 22352 THERAPUTIC INJ SQ/IM 09/26/2013 J3301 KENALOG INJ, PER 10 MG 09/26/2013 J1030 DEPO MEDROL 40 MG INJ 09/26/2013 03861 THERAPUTIC INJ SQ/IM 10/05/2013 J2550 PHENERGAN INJECTION UP TO 50 MG 10/05/2013 27350 UA W/ CULTURE IF INDICATED 12/10/2013 19197 CULTURE URINE 12/10/2013 10767 US BREAST ULTRASOUND, RIGHT 01/30/2014 88067 UA W/ CULTURE IF INDICATED 02/05/2014 12478 CULTURE URINE 02/05/2014 J1885 TORADOL PER 15 MG, INJ KETOROLAC TROMETHAMINE 02/20/2014 J2550 PHENERGAN INJECTION UP TO 50 MG 02/20/2014 47459 THERAPUTIC INJ SQ/IM 02/20/2014 38993 ROUTINE VENIPUNCTURE 03/06/2014 12162 CMP 03/06/2014 68187 LIPID PANEL 03/06/2014 68703 US SOFT TISSUE (SPECIFY LOCATION) 03/27/2014 61821 BMP 03/27/2014 Neurology Iker Garner 03/27/2014 75457 BMP 04/24/2014 66479 ROUTINE VENIPUNCTURE 04/24/2014 General S Greyson Reyna 08/13/2014 93480 EXCISION BENIGN LESION 0.6- 1 CM (SPCIFY LOCATION IN MEDCIN DESCRIPTION) 08/13/2014 Results Test Result Range Methicillin resistant Staphylococcus aureus (MRSA) screening culture - 18:20 Methicillin resistant Staphylococcus aureus (MRSA) screening culture NEG NRG Automated blood complete blood count (hemogram) panel - 03/09/16 04:05 Blood leukocytes automated count (number/volume) 6.8 10*3/uL 4.3-11.0 Blood erythrocytes automated count (number/volume) 3.86 10*6/uL 4.35-5.85 Venous blood hemoglobin measurement (mass/volume) 11.1 g/dL 11.5-16.0 Blood hematocrit (volume fraction) 33 % 35-52 Automated erythrocyte mean corpuscular volume 86 [foz_us] 80-99 Automated erythrocyte mean corpuscular hemoglobin (mass per erythrocyte) 29 pg 25-34 Automated erythrocyte mean corpuscular hemoglobin concentration measurement ( mass/volume) 34 g/dL 32-36 Automated erythrocyte distribution width ratio 13.3 % 10.0-14.5 Automated blood platelet count (count/volume) 235 10*3/uL 130-400 Automated blood platelet mean volume measurement 10.2 [foz_us] 7.4-10.4 Whole blood basic metabolic panel - 03/09/16 04:05 Serum or plasma sodium measurement (moles/volume) 132 mmol/L 135-145 Serum or plasma potassium measurement (moles/volume) 3.2 mmol/L 3.6-5.0 Serum or plasma chloride measurement (moles/volume) 98 mmol/L 98-107 Carbon dioxide 23 mmol/L 21-32 Serum or plasma anion gap determination (moles/volume) 11 mmol/L 5-14 Serum or plasma urea nitrogen measurement (mass/volume) 8 mg/dL 7-18 Serum or plasma creatinine measurement (mass/volume) 0.65 mg/dL 0.60-1.30 Serum or plasma urea nitrogen/creatinine mass ratio 12 NRG Serum or plasma creatinine measurement with calculation of estimated glomerular filtration rate > NRG Serum or plasma glucose measurement (mass/volume) 117 mg/dL 70-105 Serum or plasma calcium measurement (mass/volume) 8.6 mg/dL 8.5-10.1 Complete blood count (CBC) with automated white blood cell (WBC) differential - 03/24/16 19:00 Blood leukocytes automated count (number/volume) 7.4 10*3/uL 4.3-11.0 Blood erythrocytes automated count (number/volume) 4.20 10*6/uL 4.35-5.85 Venous blood hemoglobin measurement (mass/volume) 12.3 g/dL 11.5-16.0 Blood hematocrit (volume fraction) 36 % 35-52 Automated erythrocyte mean corpuscular volume 86 [foz_us] 80-99 Automated erythrocyte mean corpuscular hemoglobin (mass per erythrocyte) 29 pg 25-34 Automated erythrocyte mean corpuscular hemoglobin concentration measurement ( mass/volume) 34 g/dL 32-36 Automated erythrocyte distribution width ratio 13.4 % 10.0-14.5 Automated blood platelet count (count/volume) 258 10*3/uL 130-400 Automated blood platelet mean volume measurement 9.3 [foz_us] 7.4-10.4 Automated blood neutrophils/100 leukocytes 63 % 42-75 Automated blood lymphocytes/100 leukocytes 25 % 12-44 Blood monocytes/100 leukocytes 9 % 0-12 Automated blood eosinophils/100 leukocytes 3 % 0-10 Automated blood basophils/100 leukocytes 0 % 0-10 Blood neutrophils automated count (number/volume) 4.7 10*3 1.8-7.8 Blood lymphocytes automated count (number/volume) 1.9 10*3 1.0-4.0 Blood monocytes automated count (number/volume) 0.7 10*3 0.0-1.0 Automated eosinophil count 0.2 10*3/uL 0.0-0.3 Automated blood basophil count (count/volume) 0.0 10*3/uL 0.0-0.1 Comprehensive metabolic panel - 03/24/16 19:00 Serum or plasma sodium measurement (moles/volume) 132 mmol/L 135-145 Serum or plasma potassium measurement (moles/volume) 3.6 mmol/L 3.6-5.0 Serum or plasma chloride measurement (moles/volume) 97 mmol/L 98-107 Carbon dioxide 26 mmol/L 21-32 Serum or plasma anion gap determination (moles/volume) 9 mmol/L 5-14 Serum or plasma urea nitrogen measurement (mass/volume) 6 mg/dL 7-18 Serum or plasma creatinine measurement (mass/volume) 0.73 mg/dL 0.60-1.30 Serum or plasma urea nitrogen/creatinine mass ratio 8 NRG Serum or plasma creatinine measurement with calculation of estimated glomerular filtration rate > NRG Serum or plasma glucose measurement (mass/volume) 69 mg/dL 70-105 Serum or plasma calcium measurement (mass/volume) 8.9 mg/dL 8.5-10.1 Serum or plasma total bilirubin measurement (mass/volume) 0.2 mg/dL 0.1-1.0 Serum or plasma alkaline phosphatase measurement (enzymatic activity/volume) 143 U/L 40-136 Serum or plasma aspartate aminotransferase measurement (enzymatic activity/ volume) 17 U/L 5-34 Serum or plasma alanine aminotransferase measurement (enzymatic activity/volume ) 21 U/L 0-55 Serum or plasma protein measurement (mass/volume) 7.1 g/dL 6.4-8.2 Serum or plasma albumin measurement (mass/volume) 4.0 g/dL 3.2-4.5 Magnesium - 03/24/16 19:00 Magnesium 2.1 mg/dL 1.8-2.4 Serum or plasma troponin i.cardiac measurement (mass/volume) - 03/24/16 19:00 Serum or plasma troponin i.cardiac measurement (mass/volume) < ng/ mL <0.30 Serum or plasma thyrotropin measurement by detection limit <=0.05 miu/l (units/ volume) - 03/24/16 19:00 Serum or plasma thyrotropin measurement by detection limit <=0.05 miu/l (units/ volume) 3.19 u[iU]/mL 0.35-4.94 Automated blood complete blood count (hemogram) panel - 04/15/16 07:23 Blood leukocytes automated count (number/volume) 5.7 10*3/uL 4.3-11.0 Blood erythrocytes automated count (number/volume) 4.39 10*6/uL 4.35-5.85 Venous blood hemoglobin measurement (mass/volume) 12.6 g/dL 11.5-16.0 Blood hematocrit (volume fraction) 37 % 35-52 Automated erythrocyte mean corpuscular volume 85 [foz_us] 80-99 Automated erythrocyte mean corpuscular hemoglobin (mass per erythrocyte) 29 pg 25-34 Automated erythrocyte mean corpuscular hemoglobin concentration measurement ( mass/volume) 34 g/dL 32-36 Automated erythrocyte distribution width ratio 13.3 % 10.0-14.5 Automated blood platelet count (count/volume) 270 10*3/uL 130-400 Automated blood platelet mean volume measurement 9.7 [foz_us] 7.4-10.4 PT panel in platelet poor plasma by coagulation assay - 04/15/16 07:23 Prothrombin time (PT) in platelet poor plasma by coagulation assay 12.0 s 12.2-14.7 INR in platelet poor plasma or blood by coagulation assay 0.9 0.8-1.4 Activated partial thromboplastin time (aPTT) in platelet poor plasma bycoagulation assay - 04/15/16 07:23 Activated partial thromboplastin time (aPTT) in platelet poor plasma bycoagulation assay 31 s 24-35 Comprehensive metabolic panel - 04/15/16 07:23 Serum or plasma sodium measurement (moles/volume) 132 mmol/L 135-145 Serum or plasma potassium measurement (moles/volume) 3.9 mmol/L 3.6-5.0 Serum or plasma chloride measurement (moles/volume) 97 mmol/L 98-107 Carbon dioxide 22 mmol/L 21-32 Serum or plasma anion gap determination (moles/volume) 13 mmol/L 5-14 Serum or plasma urea nitrogen measurement (mass/volume) 7 mg/dL 7-18 Serum or plasma creatinine measurement (mass/volume) 0.66 mg/dL 0.60-1.30 Serum or plasma urea nitrogen/creatinine mass ratio 11 NRG Serum or plasma creatinine measurement with calculation of estimated glomerular filtration rate > NRG Serum or plasma glucose measurement (mass/volume) 99 mg/dL 70-105 Serum or plasma calcium measurement (mass/volume) 9.1 mg/dL 8.5-10.1 Serum or plasma total bilirubin measurement (mass/volume) 0.2 mg/dL 0.1-1.0 Serum or plasma alkaline phosphatase measurement (enzymatic activity/volume) 151 U/L 40-136 Serum or plasma aspartate aminotransferase measurement (enzymatic activity/ volume) 19 U/L 5-34 Serum or plasma alanine aminotransferase measurement (enzymatic activity/volume ) 30 U/L 0-55 Serum or plasma protein measurement (mass/volume) 7.1 g/dL 6.4-8.2 Serum or plasma albumin measurement (mass/volume) 4.1 g/dL 3.2-4.5 Lipid 1996 panel - 04/15/16 07:23 Serum or plasma triglyceride measurement (mass/volume) 73 mg/dL <150 Serum or plasma cholesterol measurement (mass/volume) 208 mg/dL < 200 Serum or plasma cholesterol in HDL measurement (mass/volume) 64 mg/ dL 40-60 Cholesterol in LDL [mass/volume] in serum or plasma by direct assay 119 mg/dL 1-129 Serum or plasma cholesterol in VLDL measurement (mass/volume) 15 mg/ dL 5-40 Methicillin resistant Staphylococcus aureus (MRSA) screening culture - 07:23 Methicillin resistant Staphylococcus aureus (MRSA) screening culture NEG NRG Complete blood count (CBC) with automated white blood cell (WBC) differential - 05/10/16 14:50 Blood leukocytes automated count (number/volume) 7.3 10*3/uL 4.3-11.0 Blood erythrocytes automated count (number/volume) 4.63 10*6/uL 4.35-5.85 Venous blood hemoglobin measurement (mass/volume) 13.4 g/dL 11.5-16.0 Blood hematocrit (volume fraction) 40 % 35-52 Automated erythrocyte mean corpuscular volume 87 [foz_us] 80-99 Automated erythrocyte mean corpuscular hemoglobin (mass per erythrocyte) 29 pg 25-34 Automated erythrocyte mean corpuscular hemoglobin concentration measurement ( mass/volume) 33 g/dL 32-36 Automated erythrocyte distribution width ratio 13.5 % 10.0-14.5 Automated blood platelet count (count/volume) 220 10*3/uL 130-400 Automated blood platelet mean volume measurement 9.9 [foz_us] 7.4-10.4 Automated blood neutrophils/100 leukocytes 63 % 42-75 Automated blood lymphocytes/100 leukocytes 27 % 12-44 Blood monocytes/100 leukocytes 7 % 0-12 Automated blood eosinophils/100 leukocytes 3 % 0-10 Automated blood basophils/100 leukocytes 0 % 0-10 Blood neutrophils automated count (number/volume) 4.6 10*3 1.8-7.8 Blood lymphocytes automated count (number/volume) 2.0 10*3 1.0-4.0 Blood monocytes automated count (number/volume) 0.5 10*3 0.0-1.0 Automated eosinophil count 0.2 10*3/uL 0.0-0.3 Automated blood basophil count (count/volume) 0.0 10*3/uL 0.0-0.1 PT panel in platelet poor plasma by coagulation assay - 05/10/16 14:50 Prothrombin time (PT) in platelet poor plasma by coagulation assay 12.1 s 12.2-14.7 INR in platelet poor plasma or blood by coagulation assay 0.9 0.8-1.4 Activated partial thromboplastin time (aPTT) in platelet poor plasma bycoagulation assay - 05/10/16 14:50 Activated partial thromboplastin time (aPTT) in platelet poor plasma bycoagulation assay 29 s 24-35 Comprehensive metabolic panel - 05/10/16 14:50 Serum or plasma sodium measurement (moles/volume) 137 mmol/L 135-145 Serum or plasma potassium measurement (moles/volume) 3.6 mmol/L 3.6-5.0 Serum or plasma chloride measurement (moles/volume) 101 mmol/L 98-107 Carbon dioxide 25 mmol/L 21-32 Serum or plasma anion gap determination (moles/volume) 11 mmol/L 5-14 Serum or plasma urea nitrogen measurement (mass/volume) 7 mg/dL 7-18 Serum or plasma creatinine measurement (mass/volume) 0.68 mg/dL 0.60-1.30 Serum or plasma urea nitrogen/creatinine mass ratio 10 NRG Serum or plasma creatinine measurement with calculation of estimated glomerular filtration rate > NRG Serum or plasma glucose measurement (mass/volume) 86 mg/dL 70-105 Serum or plasma calcium measurement (mass/volume) 9.2 mg/dL 8.5-10.1 Serum or plasma total bilirubin measurement (mass/volume) 0.2 mg/dL 0.1-1.0 Serum or plasma alkaline phosphatase measurement (enzymatic activity/volume) 167 U/L 40-136 Serum or plasma aspartate aminotransferase measurement (enzymatic activity/ volume) 26 U/L 5-34 Serum or plasma alanine aminotransferase measurement (enzymatic activity/volume ) 43 U/L 0-55 Serum or plasma protein measurement (mass/volume) 7.4 g/dL 6.4-8.2 Serum or plasma albumin measurement (mass/volume) 4.3 g/dL 3.2-4.5 Magnesium - 05/10/16 14:50 Magnesium 2.1 mg/dL 1.8-2.4 Serum or plasma creatine kinase measurement (enzymatic activity/volume) - 05/10 14:50 Serum or plasma creatine kinase measurement (enzymatic activity/volume) 48 U/L 29-168 Serum or plasma creatine kinase MB measurement (enzymatic activity/volume) - 14:50 Serum or plasma creatine kinase MB measurement (enzymatic activity/volume) 1.3 ng/mL <6.6 Serum or plasma troponin i.cardiac measurement (mass/volume) - 05/10/16 14:50 Serum or plasma troponin i.cardiac measurement (mass/volume) < ng/ mL <0.30 Serum or plasma amylase measurement (enzymatic activity/volume) - 05/10/16 14: 50 Serum or plasma amylase measurement (enzymatic activity/volume) 53 U /L 25-125 Lipase - 05/10/16 14:50 Lipase 25 U/L 8-78 Serum or plasma lithium measurement (moles/volume) - 05/10/16 14:50 BNP level 46.2 pg/mL <100.0 Serum or plasma carbamazepine measurement (mass/volume) - 05/10/16 14:50 Serum or plasma carbamazepine measurement (mass/volume) 7.4 ug/mL 4.0-12.0 Serum or plasma troponin i.cardiac measurement (mass/volume) - 05/10/16 20:35 Serum or plasma troponin i.cardiac measurement (mass/volume) < ng/ mL <0.30 Complete blood count (CBC) with automated white blood cell (WBC) differential - 05/11/16 03:10 Blood leukocytes automated count (number/volume) 7.4 10*3/uL 4.3-11.0 Blood erythrocytes automated count (number/volume) 4.41 10*6/uL 4.35-5.85 Venous blood hemoglobin measurement (mass/volume) 12.4 g/dL 11.5-16.0 Blood hematocrit (volume fraction) 38 % 35-52 Automated erythrocyte mean corpuscular volume 87 [foz_us] 80-99 Automated erythrocyte mean corpuscular hemoglobin (mass per erythrocyte) 28 pg 25-34 Automated erythrocyte mean corpuscular hemoglobin concentration measurement ( mass/volume) 32 g/dL 32-36 Automated erythrocyte distribution width ratio 13.5 % 10.0-14.5 Automated blood platelet count (count/volume) 226 10*3/uL 130-400 Automated blood platelet mean volume measurement 10.3 [foz_us] 7.4-10.4 Automated blood neutrophils/100 leukocytes 83 % 42-75 Automated blood lymphocytes/100 leukocytes 15 % 12-44 Blood monocytes/100 leukocytes 2 % 0-12 Automated blood eosinophils/100 leukocytes 0 % 0-10 Automated blood basophils/100 leukocytes 0 % 0-10 Blood neutrophils automated count (number/volume) 6.1 10*3 1.8-7.8 Blood lymphocytes automated count (number/volume) 1.1 10*3 1.0-4.0 Blood monocytes automated count (number/volume) 0.2 10*3 0.0-1.0 Automated eosinophil count 0.0 10*3/uL 0.0-0.3 Automated blood basophil count (count/volume) 0.0 10*3/uL 0.0-0.1 Comprehensive metabolic panel - 05/11/16 03:10 Serum or plasma sodium measurement (moles/volume) 138 mmol/L 135-145 Serum or plasma potassium measurement (moles/volume) 3.9 mmol/L 3.6-5.0 Serum or plasma chloride measurement (moles/volume) 100 mmol/L 98-107 Carbon dioxide 23 mmol/L 21-32 Serum or plasma anion gap determination (moles/volume) 15 mmol/L 5-14 Serum or plasma urea nitrogen measurement (mass/volume) 7 mg/dL 7-18 Serum or plasma creatinine measurement (mass/volume) 0.67 mg/dL 0.60-1.30 Serum or plasma urea nitrogen/creatinine mass ratio 10 NRG Serum or plasma creatinine measurement with calculation of estimated glomerular filtration rate > NRG Serum or plasma glucose measurement (mass/volume) 116 mg/dL 70-105 Serum or plasma calcium measurement (mass/volume) 8.8 mg/dL 8.5-10.1 Serum or plasma total bilirubin measurement (mass/volume) 0.3 mg/dL 0.1-1.0 Serum or plasma alkaline phosphatase measurement (enzymatic activity/volume) 151 U/L 40-136 Serum or plasma aspartate aminotransferase measurement (enzymatic activity/ volume) 21 U/L 5-34 Serum or plasma alanine aminotransferase measurement (enzymatic activity/volume ) 37 U/L 0-55 Serum or plasma protein measurement (mass/volume) 6.7 g/dL 6.4-8.2 Serum or plasma albumin measurement (mass/volume) 4.0 g/dL 3.2-4.5 Lipid 1996 panel - 05/11/16 03:10 Serum or plasma triglyceride measurement (mass/volume) 56 mg/dL <150 Serum or plasma cholesterol measurement (mass/volume) 202 mg/dL < 200 Serum or plasma cholesterol in HDL measurement (mass/volume) 66 mg/ dL 40-60 Cholesterol in LDL [mass/volume] in serum or plasma by direct assay 116 mg/dL 1-129 Serum or plasma cholesterol in VLDL measurement (mass/volume) 11 mg/ dL 5-40 Serum or plasma troponin i.cardiac measurement (mass/volume) - 05/11/16 03:10 Serum or plasma troponin i.cardiac measurement (mass/volume) < ng/ mL <0.30 Complete blood count (CBC) with automated white blood cell (WBC) differential - 05/12/16 04:10 Blood leukocytes automated count (number/volume) 7.4 10*3/uL 4.3-11.0 Blood erythrocytes automated count (number/volume) 4.40 10*6/uL 4.35-5.85 Venous blood hemoglobin measurement (mass/volume) 12.8 g/dL 11.5-16.0 Blood hematocrit (volume fraction) 38 % 35-52 Automated erythrocyte mean corpuscular volume 87 [foz_us] 80-99 Automated erythrocyte mean corpuscular hemoglobin (mass per erythrocyte) 29 pg 25-34 Automated erythrocyte mean corpuscular hemoglobin concentration measurement ( mass/volume) 33 g/dL 32-36 Automated erythrocyte distribution width ratio 13.5 % 10.0-14.5 Automated blood platelet count (count/volume) 248 10*3/uL 130-400 Automated blood platelet mean volume measurement 9.8 [foz_us] 7.4-10.4 Automated blood neutrophils/100 leukocytes 62 % 42-75 Automated blood lymphocytes/100 leukocytes 27 % 12-44 Blood monocytes/100 leukocytes 8 % 0-12 Automated blood eosinophils/100 leukocytes 2 % 0-10 Automated blood basophils/100 leukocytes 1 % 0-10 Blood neutrophils automated count (number/volume) 4.6 10*3 1.8-7.8 Blood lymphocytes automated count (number/volume) 2.0 10*3 1.0-4.0 Blood monocytes automated count (number/volume) 0.6 10*3 0.0-1.0 Automated eosinophil count 0.2 10*3/uL 0.0-0.3 Automated blood basophil count (count/volume) 0.0 10*3/uL 0.0-0.1 Whole blood basic metabolic panel - 05/12/16 04:10 Serum or plasma sodium measurement (moles/volume) 135 mmol/L 135-145 Serum or plasma potassium measurement (moles/volume) 3.5 mmol/L 3.6-5.0 Serum or plasma chloride measurement (moles/volume) 98 mmol/L 98-107 Carbon dioxide 25 mmol/L 21-32 Serum or plasma anion gap determination (moles/volume) 12 mmol/L 5-14 Serum or plasma urea nitrogen measurement (mass/volume) 8 mg/dL 7-18 Serum or plasma creatinine measurement (mass/volume) 0.73 mg/dL 0.60-1.30 Serum or plasma urea nitrogen/creatinine mass ratio 11 NRG Serum or plasma creatinine measurement with calculation of estimated glomerular filtration rate > NRG Serum or plasma glucose measurement (mass/volume) 105 mg/dL 70-105 Serum or plasma calcium measurement (mass/volume) 9.1 mg/dL 8.5-10.1 Hemoglobin A1c - 05/12/16 04:10 Hemoglobin A1c 5.5 % 4.5-6.2 Complete blood count (CBC) with automated white blood cell (WBC) differential - 05/16/16 13:37 Blood leukocytes automated count (number/volume) 4.9 10*3/uL 4.3-11.0 Blood erythrocytes automated count (number/volume) 4.72 10*6/uL 4.35-5.85 Venous blood hemoglobin measurement (mass/volume) 13.7 g/dL 11.5-16.0 Blood hematocrit (volume fraction) 39 % 35-52 Automated erythrocyte mean corpuscular volume 83 [foz_us] 80-99 Automated erythrocyte mean corpuscular hemoglobin (mass per erythrocyte) 29 pg 25-34 Automated erythrocyte mean corpuscular hemoglobin concentration measurement ( mass/volume) 35 g/dL 32-36 Automated erythrocyte distribution width ratio 13.4 % 10.0-14.5 Automated blood platelet count (count/volume) 267 10*3/uL 130-400 Automated blood platelet mean volume measurement 10.5 [foz_us] 7.4-10.4 Automated blood neutrophils/100 leukocytes 64 % 42-75 Automated blood lymphocytes/100 leukocytes 21 % 12-44 Blood monocytes/100 leukocytes 13 % 0-12 Automated blood eosinophils/100 leukocytes 2 % 0-10 Automated blood basophils/100 leukocytes 0 % 0-10 Blood neutrophils automated count (number/volume) 3.2 10*3 1.8-7.8 Blood lymphocytes automated count (number/volume) 1.0 10*3 1.0-4.0 Blood monocytes automated count (number/volume) 0.7 10*3 0.0-1.0 Automated eosinophil count 0.1 10*3/uL 0.0-0.3 Automated blood basophil count (count/volume) 0.0 10*3/uL 0.0-0.1 Comprehensive metabolic panel - 05/16/16 13:37 Serum or plasma sodium measurement (moles/volume) 125 mmol/L 135-145 Serum or plasma potassium measurement (moles/volume) 3.8 mmol/L 3.6-5.0 Serum or plasma chloride measurement (moles/volume) 91 mmol/L 98-107 Carbon dioxide 24 mmol/L 21-32 Serum or plasma anion gap determination (moles/volume) 10 mmol/L 5-14 Serum or plasma urea nitrogen measurement (mass/volume) 9 mg/dL 7-18 Serum or plasma creatinine measurement (mass/volume) 0.68 mg/dL 0.60-1.30 Serum or plasma urea nitrogen/creatinine mass ratio 13 NRG Serum or plasma creatinine measurement with calculation of estimated glomerular filtration rate > NRG Serum or plasma glucose measurement (mass/volume) 110 mg/dL 70-105 Serum or plasma calcium measurement (mass/volume) 9.0 mg/dL 8.5-10.1 Serum or plasma total bilirubin measurement (mass/volume) 0.3 mg/dL 0.1-1.0 Serum or plasma alkaline phosphatase measurement (enzymatic activity/volume) 146 U/L 40-136 Serum or plasma aspartate aminotransferase measurement (enzymatic activity/ volume) 26 U/L 5-34 Serum or plasma alanine aminotransferase measurement (enzymatic activity/volume ) 45 U/L 0-55 Serum or plasma protein measurement (mass/volume) 7.4 g/dL 6.4-8.2 Serum or plasma albumin measurement (mass/volume) 4.3 g/dL 3.2-4.5 Magnesium - 05/16/16 13:37 Magnesium 2.1 mg/dL 1.8-2.4 Serum or plasma troponin i.cardiac measurement (mass/volume) - 05/16/16 13:37 Serum or plasma troponin i.cardiac measurement (mass/volume) < ng/ mL <0.30 PT panel in platelet poor plasma by coagulation assay - 05/16/16 13:37 Prothrombin time (PT) in platelet poor plasma by coagulation assay 12.3 s 12.2-14.7 INR in platelet poor plasma or blood by coagulation assay 0.9 0.8-1.4 Activated partial thromboplastin time (aPTT) in platelet poor plasma bycoagulation assay - 05/16/16 13:37 Activated partial thromboplastin time (aPTT) in platelet poor plasma bycoagulation assay 36 s 24-35 Lipase - 05/16/16 13:37 Lipase 27 U/L 8-78 Serum or plasma thyrotropin measurement by detection limit <=0.05 miu/l (units/ volume) - 05/16/16 13:37 Serum or plasma thyrotropin measurement by detection limit <=0.05 miu/l (units/ volume) 1.93 u[iU]/mL 0.35-4.94 Complete urinalysis with reflex to culture - 05/16/16 15:30 Urine color determination YELLOW NRG Urine clarity determination SLIGHTLY CLOUDY NRG Urine pH measurement by test strip 7 5-9 Specific gravity of urine by test strip 1.005 1.016- 1.022 Urine protein assay by test strip, semi-quantitative NEGATIVE NEGATIVE Urine glucose detection by automated test strip NEGATIVE NEGATIVE Erythrocytes detection in urine sediment by light microscopy NEGATIVE NEGATIVE Urine ketones detection by automated test strip NEGATIVE NEGATIVE Urine nitrite detection by test strip NEGATIVE NEGATIVE Urine total bilirubin detection by test strip NEGATIVE NEGATIVE Urine urobilinogen measurement by automated test strip (mass/volume) NORMAL NORMAL Urine leukocyte esterase detection by dipstick NEGATIVE NEGATIVE Automated urine sediment erythrocyte count by microscopy (number/high power field) NONE NRG Automated urine sediment leukocyte count by microscopy (number/high power field ) [HPF] NRG Bacteria detection in urine sediment by light microscopy MODERATE NRG Squamous epithelial cells detection in urine sediment by light microscopy 25-50 NRG Crystals detection in urine sediment by light microscopy NONE NRG Casts detection in urine sediment by light microscopy NONE NRG Mucus detection in urine sediment by light microscopy NEGATIVE NRG Complete urinalysis with reflex to culture NO NRG TSH - 05/03/17 12:23 TSH 2.42 mIU/L 0.40-4.50 URINE SODIUM 24 HR - 05/16/17 14:00 SODIUM, RANDOM URINE 111 mmol/L 28-272 CMP - 05/27/17 12:55 GLUCOSE 101 mg/dL 65-99 UREA NITROGEN (BUN) 8 mg/dL 7-25 CREATININE 0.72 mg/dL 0.50-1.05 eGFR NON-AFR. BULGARIAN 94 mL/min/1.73m2 > OR=60 eGFR 108 mL/min/1.73m2 > OR=60 BUN/CREATININE RATIO NOT APPLICABLE (calc) 6-22 SODIUM 132 mmol/L 135-146 POTASSIUM 4.2 mmol/L 3.5-5.3 CHLORIDE 96 mmol/L 98-110 CARBON DIOXIDE 27 mmol/L 20-31 CALCIUM 9.2 mg/dL 8.6-10.4 PROTEIN, TOTAL 7.2 g/dL 6.1-8.1 ALBUMIN 4.2 g/dL 3.6-5.1 GLOBULIN 3.0 g/dL (calc) 1.9-3.7 ALBUMIN/GLOBULIN RATIO 1.4 (calc) 1.0-2.5 BILIRUBIN, TOTAL 0.2 mg/dL 0.2-1.2 ALKALINE PHOSPHATASE 162 U/L 33-130 AST 17 U/L 10-35 ALT 26 U/L 6-29 BMP - 06/09/17 13:36 GLUCOSE 91 mg/dL 65-99 UREA NITROGEN (BUN) 6 mg/dL 7-25 CREATININE 0.59 mg/dL 0.50-1.05 eGFR NON-AFR. BULGARIAN 102 mL/min/1.73m2 > OR=60 eGFR 119 mL/min/1.73m2 > OR=60 BUN/CREATININE RATIO 10 (calc) 6-22 SODIUM 132 mmol/L 135-146 POTASSIUM 4.2 mmol/L 3.5-5.3 CHLORIDE 97 mmol/L 98-110 CARBON DIOXIDE 29 mmol/L 20-31 CALCIUM 9.0 mg/dL 8.6-10.4 CORTISOL, SERUM-AM - 06/17/17 08:38 CORTISOL, A.M. 8.9 mcg/dL NRG CULTURE, URINE - 06/17/17 08:44 CULTURE, URINE, ROUTINE SEE NOTE NRG HEP C ANTIBODY - 09/20/17 11:01 HEPATITIS C ANTIBODY NON-REACTIVE NON-REACTIVE SIGNAL TO CUT-OFF 0.02 <1.00 CBC - 10/31/17 11:58 WHITE BLOOD CELL COUNT 6.5 Thousand/uL 3.8-10.8 RED BLOOD CELL COUNT 4.67 Million/uL 3.80-5.10 HEMOGLOBIN 13.0 g/dL 11.7-15.5 HEMATOCRIT 39.6 % 35.0-45.0 MCV 84.8 fL 80.0-100.0 MCH 27.8 pg 27.0-33.0 MCHC 32.8 g/dL 32.0-36.0 RDW 12.9 % 11.0-15.0 PLATELET COUNT 281 Thousand/uL 140-400 MPV 9.9 fL 7.5-12.5 ABSOLUTE NEUTROPHILS 3855 cells/uL [id number] ABSOLUTE LYMPHOCYTES 1983 cells/uL 850-3900 ABSOLUTE MONOCYTES 351 cells/uL 200-950 ABSOLUTE EOSINOPHILS 241 cells/uL 15-500 ABSOLUTE BASOPHILS 72 cells/uL 0-200 NEUTROPHILS 59.3 % NRG LYMPHOCYTES 30.5 % NRG MONOCYTES 5.4 % NRG EOSINOPHILS 3.7 % NRG BASOPHILS 1.1 % NRG SUREPATH PAP AND HPV mRNA E6/E7 - 01/27/18 14:08 CLINICAL INFORMATION: NRG LMP: MENOPAUSAL NRG PREV. PAP: 2013, WNL NRG PREV. BX: NRG SOURCE: [employer] NRG STATEMENT OF ADEQUACY: NRG INTERPRETATION/RESULT: NRG HEATSET W[employer] OPERATOR: NRG HPV mRNA E6/E7, SUREPATH VIAL Not Detected NOT DETECTED COMMENT NRG CULTURE, FUNGAL - 02/28/18 12:23 CULTURE,FUNGUS,SKIN,HAIR, NAIL W/DIRECT FLUOR/ROB SEE NOTE NRG LIPID PANEL - 04/25/18 11:10 CHOLESTEROL, TOTAL 229 mg/dL <200 HDL CHOLESTEROL 85 mg/dL >50 TRIGLYCERIDES 91 mg/dL <150 LDL-CHOLESTEROL 125 mg/dL (calc) NRG CHOL/HDLC RATIO 2.7 (calc) <5.0 NON HDL CHOLESTEROL 144 mg/dL (calc) <130 CMP - 04/25/18 11:10 GLUCOSE 97 mg/dL 65-99 UREA NITROGEN (BUN) 6 mg/dL 7-25 CREATININE 0.58 mg/dL 0.50-1.05 eGFR NON-AFR. BULGARIAN 102 mL/min/1.73m2 > OR=60 eGFR 119 mL/min/1.73m2 > OR=60 BUN/CREATININE RATIO 10 (calc) 6-22 SODIUM 136 mmol/L 135-146 POTASSIUM 3.8 mmol/L 3.5-5.3 CHLORIDE 102 mmol/L 98-110 CARBON DIOXIDE 28 mmol/L 20-32 CALCIUM 9.2 mg/dL 8.6-10.4 PROTEIN, TOTAL 7.0 g/dL 6.1-8.1 ALBUMIN 4.2 g/dL 3.6-5.1 GLOBULIN 2.8 g/dL (calc) 1.9-3.7 ALBUMIN/GLOBULIN RATIO 1.5 (calc) 1.0-2.5 BILIRUBIN, TOTAL 0.3 mg/dL 0.2-1.2 ALKALINE PHOSPHATASE 156 U/L 33-130 AST 20 U/L 10-35 ALT 23 U/L 6-29 CBC - 04/25/18 11:10 WHITE BLOOD CELL COUNT 6.3 Thousand/uL 3.8-10.8 RED BLOOD CELL COUNT 4.69 Million/uL 3.80-5.10 HEMOGLOBIN 13.3 g/dL 11.7-15.5 HEMATOCRIT 39.9 % 35.0-45.0 MCV 85.1 fL 80.0-100.0 MCH 28.4 pg 27.0-33.0 MCHC 33.3 g/dL 32.0-36.0 RDW 13.2 % 11.0-15.0 PLATELET COUNT 248 Thousand/uL 140-400 MPV 10.3 fL 7.5-12.5 ABSOLUTE NEUTROPHILS 3654 cells/uL [id number] ABSOLUTE LYMPHOCYTES 2048 cells/uL 850-3900 ABSOLUTE MONOCYTES 353 cells/uL 200-950 ABSOLUTE EOSINOPHILS 183 cells/uL 15-500 ABSOLUTE BASOPHILS 63 cells/uL 0-200 NEUTROPHILS 58 % NRG LYMPHOCYTES 32.5 % NRG MONOCYTES 5.6 % NRG EOSINOPHILS 2.9 % NRG BASOPHILS 1.0 % NRG Complete blood count (CBC) with automated white blood cell (WBC) differential - 06/02/18 13:49 Blood leukocytes automated count (number/volume) 5.6 10*3/uL 4.3-11.0 Blood erythrocytes automated count (number/volume) 4.80 10*6/uL 4.35-5.85 Venous blood hemoglobin measurement (mass/volume) 13.7 g/dL 11.5-16.0 Blood hematocrit (volume fraction) 42 % 35-52 Automated erythrocyte mean corpuscular volume 87 [foz_us] 80-99 Automated erythrocyte mean corpuscular hemoglobin (mass per erythrocyte) 29 pg 25-34 Automated erythrocyte mean corpuscular hemoglobin concentration measurement ( mass/volume) 33 g/dL 32-36 Automated erythrocyte distribution width ratio 13.6 % 10.0-14.5 Automated blood platelet count (count/volume) 261 10*3/uL 130-400 Automated blood platelet mean volume measurement 9.5 [foz_us] 7.4-10.4 Automated blood neutrophils/100 leukocytes 58 % 42-75 Automated blood lymphocytes/100 leukocytes 34 % 12-44 Blood monocytes/100 leukocytes 5 % 0-12 Automated blood eosinophils/100 leukocytes 3 % 0-10 Automated blood basophils/100 leukocytes 1 % 0-10 Blood neutrophils automated count (number/volume) 3.3 10*3 1.8-7.8 Blood lymphocytes automated count (number/volume) 1.9 10*3 1.0-4.0 Blood monocytes automated count (number/volume) 0.3 10*3 0.0-1.0 Automated eosinophil count 0.2 10*3/uL 0.0-0.3 Automated blood basophil count (count/volume) 0.0 10*3/uL 0.0-0.1 Serum or plasma renal function panel (Na, K, Cl, CO2, BUN, Cr, glucose,Ca, phos , alb) - 06/02/18 13:49 Serum or plasma sodium measurement (moles/volume) 132 mmol/L 135-145 Serum or plasma potassium measurement (moles/volume) 4.2 mmol/L 3.6-5.0 Serum or plasma chloride measurement (moles/volume) 99 mmol/L 98-107 Carbon dioxide 25 mmol/L 21-32 Serum or plasma anion gap determination (moles/volume) 8 mmol/L 5-14 Serum or plasma urea nitrogen measurement (mass/volume) 9 mg/dL 7-18 Serum or plasma creatinine measurement (mass/volume) 0.72 mg/dL 0.60-1.30 Serum or plasma urea nitrogen/creatinine mass ratio 13 NRG Serum or plasma creatinine measurement with calculation of estimated glomerular filtration rate > NRG Serum or plasma glucose measurement (mass/volume) 92 mg/dL 70-105 Serum or plasma calcium measurement (mass/volume) 9.0 mg/dL 8.5-10.1 Serum or plasma albumin measurement (mass/volume) 4.1 g/dL 3.2-4.5 Serum or plasma phosphate measurement (mass/volume) 3.9 mg/dL 2.3-4.7 Serum or plasma uric acid measurement (mass/volume) - 06/02/18 13:49 Serum or plasma uric acid measurement (mass/volume) 2.7 mg/dL 2.6-7.2 Magnesium - 06/02/18 13:49 Magnesium 2.1 mg/dL 1.8-2.4 Serum or plasma intact pararthyroid hormone measurement (mass/volume) - 13:49 Serum or plasma intact parathyroid hormone measurement (mass/volume) 51.8 pg/mL 9.0-77.0 Bio-intact parathyroid hormone (PTH) measurement with calcium 9.0 % 8.5-10.5 Urine protein/creatinine mass ratio - 06/02/18 14:00 Urine protein measurement (mass/volume) 10 mg/dL 6-12 Urine creatinine measurement (mass/volume) 120 mg/dL 30- 125 Urine protein/creatinine mass ratio 0.08 NRG Complete urinalysis with reflex to culture - 06/02/18 14:00 Urine color determination YELLOW NRG Urine clarity determination CLEAR NRG Urine pH measurement by test strip 6.5 5-9 Specific gravity of urine by test strip 1.010 1.016- 1.022 Urine protein assay by test strip, semi-quantitative NEGATIVE NEGATIVE Urine glucose detection by automated test strip NEGATIVE NEGATIVE Erythrocytes detection in urine sediment by light microscopy NEGATIVE NEGATIVE Urine ketones detection by automated test strip NEGATIVE NEGATIVE Urine nitrite detection by test strip NEGATIVE NEGATIVE Urine total bilirubin detection by test strip NEGATIVE NEGATIVE Urine urobilinogen measurement by automated test strip (mass/volume) NORMAL NORMAL Urine leukocyte esterase detection by dipstick 3+ NEGATIVE Automated urine sediment erythrocyte count by microscopy (number/high power field) NONE NRG Automated urine sediment leukocyte count by microscopy (number/high power field ) [HPF] NRG Bacteria detection in urine sediment by light microscopy MODERATE NRG Squamous epithelial cells detection in urine sediment by light microscopy 10-25 NRG Crystals detection in urine sediment by light microscopy NONE NRG Casts detection in urine sediment by light microscopy NONE NRG Mucus detection in urine sediment by light microscopy SMALL NRG Complete urinalysis with reflex to culture YES NRG Bacterial urine culture - 06/02/18 14:00 Bacterial urine culture SEE COMMEN NRG COLONY COUNT . NRG Complete blood count (CBC) with automated white blood cell (WBC) differential - 09/08/18 13:05 Blood leukocytes automated count (number/volume) 9.9 10*3/uL 4.3-11.0 Blood erythrocytes automated count (number/volume) 4.94 10*6/uL 4.35-5.85 Venous blood hemoglobin measurement (mass/volume) 14.2 g/dL 11.5-16.0 Blood hematocrit (volume fraction) 43 % 35-52 Automated erythrocyte mean corpuscular volume 86 [foz_us] 80-99 Automated erythrocyte mean corpuscular hemoglobin (mass per erythrocyte) 29 pg 25-34 Automated erythrocyte mean corpuscular hemoglobin concentration measurement ( mass/volume) 33 g/dL 32-36 Automated erythrocyte distribution width ratio 13.7 % 10.0-14.5 Automated blood platelet count (count/volume) 293 10*3/uL 130-400 Automated blood platelet mean volume measurement 9.5 [foz_us] 7.4-10.4 Automated blood neutrophils/100 leukocytes 59 % 42-75 Automated blood lymphocytes/100 leukocytes 34 % 12-44 Blood monocytes/100 leukocytes 5 % 0-12 Automated blood eosinophils/100 leukocytes 1 % 0-10 Automated blood basophils/100 leukocytes 0 % 0-10 Blood neutrophils automated count (number/volume) 5.9 10*3 1.8-7.8 Blood lymphocytes automated count (number/volume) 3.4 10*3 1.0-4.0 Blood monocytes automated count (number/volume) 0.5 10*3 0.0-1.0 Automated eosinophil count 0.1 10*3/uL 0.0-0.3 Automated blood basophil count (count/volume) 0.0 10*3/uL 0.0-0.1 Serum or plasma renal function panel (Na, K, Cl, CO2, BUN, Cr, glucose,Ca, phos , alb) - 09/08/18 13:05 Serum or plasma sodium measurement (moles/volume) 133 mmol/L 135-145 Serum or plasma potassium measurement (moles/volume) 3.7 mmol/L 3.6-5.0 Serum or plasma chloride measurement (moles/volume) 98 mmol/L 98-107 Carbon dioxide 24 mmol/L 21-32 Serum or plasma anion gap determination (moles/volume) 11 mmol/L 5-14 Serum or plasma urea nitrogen measurement (mass/volume) 10 mg/dL 7-18 Serum or plasma creatinine measurement (mass/volume) 0.75 mg/dL 0.60-1.30 Serum or plasma urea nitrogen/creatinine mass ratio 13 NRG Serum or plasma creatinine measurement with calculation of estimated glomerular filtration rate > NRG Serum or plasma glucose measurement (mass/volume) 82 mg/dL 70-105 Serum or plasma calcium measurement (mass/volume) 9.3 mg/dL 8.5-10.1 Serum or plasma albumin measurement (mass/volume) 4.1 g/dL 3.2-4.5 Serum or plasma phosphate measurement (mass/volume) 3.2 mg/dL 2.3-4.7 Magnesium - 09/08/18 13:05 Magnesium 1.9 mg/dL 1.8-2.4 VITAMIN D 25-HYDROXY - 09/08/18 13:05 VITAMIN D 25-HYDROXY (TOTAL) 10.8 % 30.0-100.0 Complete urinalysis with reflex to culture - 09/08/18 14:30 Urine color determination YELLOW NRG Urine clarity determination CLEAR NRG Urine pH measurement by test strip 6 5-9 Specific gravity of urine by test strip 1.015 1.016- 1.022 Urine protein assay by test strip, semi-quantitative 1+ NEGATIVE Urine glucose detection by automated test strip NEGATIVE NEGATIVE Erythrocytes detection in urine sediment by light microscopy 2+ NEGATIVE Urine ketones detection by automated test strip NEGATIVE NEGATIVE Urine nitrite detection by test strip NEGATIVE NEGATIVE Urine total bilirubin detection by test strip NEGATIVE NEGATIVE Urine urobilinogen measurement by automated test strip (mass/volume) NORMAL NORMAL Urine leukocyte esterase detection by dipstick 3+ NEGATIVE Automated urine sediment erythrocyte count by microscopy (number/high power field) [HPF] NRG Automated urine sediment leukocyte count by microscopy (number/high power field ) [HPF] NRG Bacteria detection in urine sediment by light microscopy LARGE NRG Squamous epithelial cells detection in urine sediment by light microscopy 5-10 NRG Crystals detection in urine sediment by light microscopy NONE NRG Casts detection in urine sediment by light microscopy NONE NRG Mucus detection in urine sediment by light microscopy NEGATIVE NRG Complete urinalysis with reflex to culture YES NRG Urine protein/creatinine mass ratio - 09/08/18 14:30 Urine protein measurement (mass/volume) 17 mg/dL 6-12 Urine creatinine measurement (mass/volume) 159 mg/dL 30- 125 Urine protein/creatinine mass ratio 0.11 NRG Bacterial urine culture - 09/08/18 14:30 Bacterial urine culture NG NRG Serum osmolality - 09/14/18 12:40 Serum osmolality 279 % 275-295 Urine osmolality - 09/14/18 12:40 Urine osmolality 509 % 250-1200 SODIUM URINE RANDOM - 09/14/18 12:40 [id number] 44 % NRG 24 hour urine creatinine measurement (mass/volume) - 09/14/18 12:45 24 hour urine creatinine measurement (mass/volume) 104 mg/dL 30-125 Encounters ACCT No. Visit Date/Time Discharge Status Pt. Type Provider Facility Loc./Unit Complaint [id number] 08/13/2014 15:29:00 08/13/2014 23:59:59 CLS Outpatient DESIREE SPENCE MD [id number] 05/21/2014 10:54:00 05/21/2014 23:59:59 CLS Outpatient DESIREE SPENCE MD [id number] 04/24/2014 11:36:00 04/24/2014 23:59:59 CLS Outpatient DESIREE SPENCE MD [id number] 03/27/2014 15:45:00 03/27/2014 23:59:59 CLS Outpatient DESIREE SPENCE MD [id number] 03/06/2014 10:08:00 03/06/2014 23:59:59 CLS Outpatient DESIREE SPENCE MD [id number] 03/05/2014 11:23:00 03/05/2014 23:59:59 CLS Outpatient DESIREE SPENCE MD [id number] 02/20/2014 10:20:00 02/20/2014 23:59:59 CLS Outpatient DESIREE SPENCE MD [id number] 02/05/2014 14:19:00 02/05/2014 23:59:59 CLS Outpatient DESIREE SPENCE MD [id number] 02/05/2014 14:19:00 02/05/2014 23:59:59 CLS Outpatient DESIREE SPENCE MD [id number] 01/30/2014 14:28:00 01/30/2014 23:59:59 CLS Outpatient DESIREE SPENCE MD [id number] 12/10/2013 15:15:00 12/10/2013 23:59:59 CLS Outpatient SANFORD BREWER APRN [id number] 12/10/2013 15:15:00 12/10/2013 23:59:59 CLS Outpatient SANFORD BREWER APRN [id number] 11/08/2013 13:26:00 11/08/2013 23:59:59 CLS Outpatient CHARISSA RUANO APRN [id number] 10/31/2013 17:17:00 10/31/2013 23:59:59 CLS Outpatient YANEZ DOKIRK Lexii [id number] 10/17/2013 11:20:00 10/17/2013 23:59:59 CLS Outpatient YANEZ DOKIRK Lexii [id number] 10/11/2013 07:28:00 10/11/2013 23:59:59 CLS Outpatient RENATA DOTAHMINAAaliyah Shultz [id number] 10/05/2013 09:53:00 10/05/2013 23:59:59 CLS Outpatient CHARISSA RUANO APRN [id number] 10/05/2013 09:53:00 10/05/2013 23:59:59 CLS Outpatient CHARISSA RUANO APRN [id number] 10/02/2013 18:28:00 10/02/2013 23:59:59 CLS Outpatient CHARISSA RUANO APRN [id number] 09/27/2013 13:25:00 09/27/2013 23:59:59 CLS Outpatient CHARISSA RUANO APRN [id number] 09/10/2013 10:39:00 09/10/2013 23:59:59 CLS Outpatient DESIREE SPENCE MD [id number] 08/02/2013 11:58:00 08/02/2013 23:59:59 CLS Outpatient DESIREE SPENCE MD [id number] 07/20/2013 09:23:00 07/20/2013 23:59:59 CLS Outpatient DESIREE SPENCE MD [id number] 03/22/2013 13:37:00 03/22/2013 23:59:59 CLS Outpatient YANEZ DOKIRK [id number] 03/15/2013 15:14:00 03/15/2013 23:59:59 CLS Outpatient YANEZ DO KIRK Shultz [id number] 03/02/2013 15:19:00 03/02/2013 23:59:59 CLS Outpatient HARLEEN MCGREGOR JEREMIAH BAUER [id number] 03/01/2013 11:21:00 03/01/2013 23:59:59 CLS Outpatient YANEZ DOKIRK [id number] 02/28/2013 15:19:00 02/28/2013 23:59:59 CLS Outpatient YANEZ DOKIRK [id number] 02/22/2013 11:14:00 02/22/2013 23:59:59 CLS Outpatient YANEZ DOKIRK [id number] 02/13/2013 16:31:00 02/13/2013 23:59:59 CLS Outpatient SYED MCGREGOR PATRICIA Sawant [id number] 01/11/2013 10:32:00 01/11/2013 23:59:59 CLS Outpatient KELY THEODORE MD [id number] 07/06/2012 10:28:00 07/06/2012 23:59:59 CLS Outpatient HARLEEN MCGREGORJEREMIAH [id number] 06/19/2012 10:07:00 06/19/2012 23:59:59 CLS Outpatient KIRK YANEZ DO [id number] 06/02/2012 10:02:00 06/02/2012 23:59:59 CLS Outpatient [id number] 03/23/2012 08:51:00 03/23/2012 23:59:59 [place] [id number] 03/08/2012 11:53:00 03/08/2012 23:59:59 CLS Outpatient KELY THEODORE MD [id number] 11/16/2012 10:57:00 Document Registration [id number] 10/30/2012 15:48:00 Document Registration [id number] 08/29/2012 11:54:00 Document Registration [id number] 09/08/2018 12:49:00 09/08/2018 23:59:59 CLS Outpatient JASPREET MEJIA MD [facility] LAB CKD [id number] 07/20/2018 09:29:00 07/20/2018 23:59:59 CLS Outpatient Rita MEJIA MD [facility] RAD HYPERTENSION [id number] 06/02/2018 13:33:00 06/02/2018 23:59:59 CLS Outpatient JASPREET MEJIA MD [facility] LAB N18.1,I10 [id number] 05/15/2018 09:00:00 05/15/2018 23:59:59 CLS Outpatient AGUSTINA MA APRN [facility] RAD SCREENING [id number] 05/10/2017 11:14:00 05/10/2017 23:59:59 CLS Outpatient DESIREE SPENCE MD [facility] RAD COUGH [id number] 04/29/2017 08:52:00 04/29/2017 23:59:59 CLS Preadmit DESIREE SPENCE MD [facility] RAD SCREENING BREAST CA [id number] 07/01/2016 07:56:00 07/01/2016 09:37:00 DIS Outpatient Rita MEJIA MD [facility] CATH PAF [id number] 06/21/2016 08:30:00 06/21/2016 23:59:59 CLS Preadmit Rita MEJIA MD [facility] CARD AFIB [id number] 04/15/2016 07:27:00 06/20/2016 00:01:00 DIS Outpatient Rita MEJIA MD [facility] CARD AFIB [id number] 05/16/2016 13:12:00 05/16/2016 17:09:00 DIS Emergency MADDIE CROCKER [facility] ER CHEST PAIN [id number] 05/10/2016 16:05:00 05/12/2016 12:20:00 DIS Inpatient ELIZABETH SERNA MD [facility] CSD CHEST PAIN,HTN [id number] 04/15/2016 06:51:00 04/15/2016 13:15:00 DIS Outpatient Rita MEJIA MD [facility] CATH ABNORMAL STRESS TEST, SOB W/EXERTION,PALPITATIONS [id number] 04/08/2016 11:04:00 04/08/2016 23:59:59 CLS Outpatient Rita MEJIA MD [facility] CARD AF,CHEST PAIN [id number] 03/25/2016 14:05:00 03/25/2016 23:59:59 CLS Outpatient DESIREE SPENCE MD [facility] RAD SLURRED SPEECH [id number] 03/24/2016 17:26:00 03/24/2016 21:01:00 DIS Emergency MADDIE CROCKER [facility] ER RIGHT ARM PAIN [id number] 03/18/2016 14:32:00 03/18/2016 23:59:59 CLS Outpatient KALANI SANDERS MD [facility] CARD I48.91 [id number] 08/19/2015 11:27:00 08/19/2015 14:40:00 DIS Outpatient DANIELE MACIAS DO [facility] GERD,BLOOD IN STOOL,HX POLPS [id number] 08/15/2015 05:37:00 08/15/2015 12:12:00 DIS Outpatient DANIELE MACIAS DO [facility] PREOP BLOOD IN STOOL,GERD,HX POLPS [id number] 07/28/2015 14:35:00 07/28/2015 23:59:59 CLS Outpatient DESIREE SPENCE MD [facility] RAD SCREENING [id number] 01/14/2015 14:11:00 01/14/2015 23:59:59 CLS Outpatient DESIREE SPENCE MD [facility] RAD 6 MONTH FOLLOW UP FOR LESION [id number] 09/03/2014 15:53:00 09/03/2014 23:59:59 CLS Outpatient GREYSON REYNA MD [facility] LABNPT CYST (L) AXILLA [id number] 04/03/2014 13:05:00 04/03/2014 23:59:59 CLS Outpatient DESIREE SPENCE MD [facility] RAD LEFT AXILLARY LUMP [id number] 03/11/2014 13:52:00 03/11/2014 23:59:59 CLS Outpatient DESIREE SPENCE MD [facility] RAD SIX MONTH F/U CYST [id number] 02/07/2014 06:24:00 02/07/2014 12:00:00 DIS Outpatient KAYKAY ANDERS MD [facility] HYPERTROPHIC TURBINATES [id number] 01/31/2014 12:39:00 01/31/2014 23:59:59 CLS Outpatient KAYKYA ANDERS MD [facility] PREOP CHRONIC SINUSITIS; HYPERTROPHIC TURBINATES [id number] 01/15/2014 13:55:00 01/15/2014 23:59:59 CLS Outpatient KAYKAY ANDERS MD [facility] RAD CHRONIC LEFT SINUSITIS [id number] 12/30/2013 08:16:00 12/30/2013 11:52:00 DIS Emergency BENNIE CHRISTIAN, GLORIA Shultz [facility] ER ANXIETY [id number] 10/04/2013 18:42:00 10/04/2013 20:31:00 DIS Emergency ESVIN CHRISTIAN, SAMANTA Fischer [facility] ER HEADACHE;FACIAL CELLULITIS [id number] 09/27/2013 14:15:00 10/01/2013 11:00:00 DIS Inpatient KELY THEODORE MD [facility] 4TH FACIAL CELLULITIS [id number] 09/27/2013 08:43:00 09/27/2013 23:59:59 CLS Outpatient [id number] 08/10/2013 07:25:00 08/10/2013 23:59:59 CLS Outpatient DESIREE SPENCE MD [facility] RAD ELEVATED ALKALINE PHOSPHATASE [id number] 07/31/2013 13:53:00 07/31/2013 23:59:59 CLS Outpatient DESIREE SPENCE MD [facility] RAD FOLLOW UP [id number] 02/06/2013 19:36:00 02/07/2013 06:35:00 DIS Outpatient JACOB REYES MD [facility] SLEEP GEETA,SNORING,HTN [id number] 01/25/2013 12:29:00 01/25/2013 23:59:59 CLS Outpatient KELY THEODORE MD [facility] RAD SIX MONTH FOLLOW-UP [id number] 11/29/2012 20:00:00 11/30/2012 05:35:00 DIS Outpatient JACOB REYES MD [facility] SLEEP SNORING,HTN,INSOMNIA, EXCESSIVE DAYTIME SLEEPINESS [id number] 09/17/2018 11:22:00 ACT Emergency JACQUELINE CRUZ MD [facility] ER WEAKNESS [id number] 09/14/2018 12:22:00 ACT Outpatient JASPREET MEJIA MD [facility] LAB POTASSIUM LEVELS [id number] 03/08/2016 17:12:00 ACT Inpatient DESIREE SPENCE MD [facility] ICU A-FIB [id number] 08/12/2014 11:06:00 Document Registration [id number] 08/12/2014 11:06:00 Document Registration [id number] 08/12/2014 11:06:00 Document Registration [id number] 07/23/2014 11:35:00 Document Registration [id number] 08/02/2012 08:11:00 Document Registration [id number] 07/10/2012 10:48:00 Document Registration [id number] 10/16/2009 10:53:00 Document Registration [id number] 10/07/2009 08:59:00 Document Registration [id number] 09/06/2018 15:10:00 09/06/2018 23:59:59 [facility] Outpatient JORDY CHRISTIAN, DESIREE Leonard [facility] [id number] 04/25/2018 10:00:00 Document Registration [id number] 02/28/2018 11:40:00 Document Registration [id number] 01/27/2018 10:00:00 Document Registration [id number] 10/31/2017 11:40:00 Document Registration [id number] 09/20/2017 09:40:00 Document Registration [id number] 06/17/2017 08:20:00 Document Registration [id number] 06/17/2017 08:00:00 Document Registration [id number] 06/09/2017 13:00:00 Document Registration [id number] 05/27/2017 13:00:00 Document Registration [id number] 05/17/2017 13:20:00 Document Registration [id number] 05/03/2017 12:20:00 Document Registration
[2018-09-17 12:16] LABS: INR 0.9 (0.8-1.4); PROTHROMBIN TIME PATIENT 12.8 SEC (12.2-14.7)
[2018-09-17 12:23] LABS: ALANINE AMINOTRANSFERASE 32 U/L (0-55); ALBUMIN 3.4 GM/DL (3.2-4.5); ALKALINE PHOSPHATASE 156 U/L (40-136); BILIRUBIN,TOTAL 0.2 MG/DL (0.1-1.0); BUN/CREATININE RATIO 14; CALCIUM 8.7 MG/DL (8.5-10.1); CARBON DIOXIDE 21 MMOL/L (21-32); CHLORIDE 100 MMOL/L (98-107); CREATININE SERUM 0.88 MG/DL (0.60-1.30); GFR ESTIMATED > 60; GLUCOSE 138 MG/DL (70-105); MAGNESIUM 1.9 MG/DL (1.8-2.4); POTASSIUM 4.4 MMOL/L (3.6-5.0); SODIUM 132 MMOL/L (135-145); TOTAL PROTEIN 6.5 GM/DL (6.4-8.2)
--- NOTE | 2018-09-17 12:33 | NUR ---
RESTING IN BED ET DENIES NEEDS AT THIS TIME. NOTIFIED HER WE WERE WAITING ON RESULTS. WARM BLANKET GIVEN.
--- NOTE | 2018-09-17 12:40 | NUR ---
REPORT AND CARE TURNED OVER TO ISAIAH Man RN
--- NOTE | 2018-09-17 13:17 | NUR ---
FOOD TRAY ORDERED, ETA OF 25 MINUTES
--- NOTE | 2018-09-17 13:34 | NUR ---
ASSISTED TO BEDSIDE COMODE, FOOD TRAY GIVEN TO PT, PT DENIES ANY OTHER NEEDS OR C/O AT THIS TIME, PT SHOWS NO S/S OF DISTRESS, VS ASSESSED AND STABLE, WILL CONTINUE TO MONITOR
--- NOTE | 2018-09-17 13:57 | NUR ---
PT DONE WITH FOOD TRAY, WARM BLANKET GIVEN PER REQUEST
--- NOTE | 2018-09-17 14:37 | NUR ---
REPEAT TROPONIN OBTAINED AND SENT TO LAB, PT DENIES ANY NEEDS OR C/O AT THIS TIME, PT SHOWS NO S/S OF DISTRESS, VS ASSESSED AND STABLE, WILL CONTINUE TO MONITOR
[2018-09-17 15:09] VITALS: BP_SYST 109; BP_SYST 110; BP_SYST 122; BP_DIAS 63; BP_DIAS 65; BP_DIAS 68
[2018-09-17 15:46] VITALS: BP 115/60
[2018-09-18] MEDS ORDERED: MECL-106 PO (16:56)
== END 2018-09-17 15:46 | disposition home or self-care (01) ==
LOC: EDUNIT# 11:21 → ER 11:22
DX: R55 Syncope and collapse (principal); I48.0 Paroxysmal atrial fibrillation; J45.909 Unspecified asthma, uncomplicated; G47.30 Sleep apnea, unspecified; I10 Essential (primary) hypertension; K21.9 Gastro-esophageal reflux disease without esophagitis; K58.9 Irritable bowel syndrome, unspecified; F41.9 Anxiety disorder, unspecified; F32.9 Major depressive disorder, single episode, unspecified; Z87.19 Personal history of other diseases of the digestive system; Z79.01 Long term (current) use of anticoagulants; Z88.8 Allergy status to other drugs, medicaments and biological substances; Z80.0 Family history of malignant neoplasm of digestive organs; Z82.49 Family history of ischemic heart disease and other diseases of the circulatory system; Z79.51 Long term (current) use of inhaled steroids; Z98.890 Other specified postprocedural states; Z94.5 Skin transplant status
CPT/HCPCS: 36415; 71045; 80053; 83735; 83874; 83880; 84443; 84484; 85025; 85379; 85610; 85730; 93005

== ENCOUNTER 2018-09-18 14:51 | Emergency (ER) | payer MEDICARE, OTHER ==
[~2018-09-18] VITALS: Ht 170.2 cm; Wt 117.9 kg
[2018-09-18] MEDS ORDERED: NS IV 1000 ML 1,000 ML IV SCH (15:00)
--- NOTE | 2018-09-18 15:01 | ED General ---
General Chief Complaint: Dizziness/Syncope Stated Complaint: DIZZINESS Source of Information: Patient Exam Limitations: No Limitations History of Present Illness Date Seen by Provider: September 18, 2018 Time Seen by Provider: 14:57 Initial Comments To ER per EMS from problems where she was at when she developed a nearly syncopal event. She was feeling fine when she was eating, then she stood up and upon standing immediately had lightheadedness. This persisted for a few minutes , currently she feels back to normal. She was seen here yesterday for the same, has an implanted loop recorder. This was interrogated yesterday and she was found to have an episode of bradycardia in the upper 30s that coincided with her time of symptoms. She was instructed to discontinue the use of metoprolol and has an appointment with her concrete boom operator Dr. Gerardo tomorrow, 09/19/18 at 2 PM. She does report that she had a brief episode of chest pain last night, nothing today. No shortness of breath. Feels back to normal now. Her orthostatic vital signs yesterday were unremarkable. Timing/Duration: Intermittent Severity: Mild Associated Systoms: Other (Near syncope) Allergies and Home Medications Allergies Coded Allergies: amitriptyline (Unverified Allergy, Unknown, CAUSED SLURRED SPEECH, 08/15/15) Home Medications Albuterol Sulfate 8.5 Gm Hfa.aer.ad, 1-2 PUFF IH Q4H PRN for SHORTNESS OF BREATH , (Reported) Alprazolam 0.5 Mg Tablet, 0.5 MG PO BID PRN for ANXIETY, (Reported) Amlodipine Besylate 10 Mg Tablet, 10 MG PO HS Prescribed by: ELIZABETH SERNA on 05/12/16 1143 Aripiprazole 5 Mg Tablet, 5 MG PO DAILY, (Reported) Buspirone HCl 10 Mg Tablet, 10 MG PO DAILY, (Reported) Buspirone HCl 10 Mg Tablet, 20 MG PO HS, (Reported) TAKES 2 (10MG) TABLETS Carbamazepine 200 Mg Tablet, 200 MG PO DAILY, (Reported) TAKES FOR FACIAL TWITCHES, NOT SEIZURES Carbamazepine 200 Mg Tablet, 400 MG PO HS, (Reported) TAKES 2 (200MG) TABLETS Diltiazem HCl 240 Mg Cap.er.24h, 240 MG PO HS, (Reported) Famotidine 20 Mg Tablet, 20 MG PO BID Prescribed by: MADDIE HALL on 05/16/16 1649 Fluticasone Propionate 16 Gm [place].susp, 1 SPRAY NS DAILY PRN for ALLERGIES, ( Reported) Hydrochlorothiazide 12.5 Mg Capsule, 12.5 MG PO DAILY@0900 Prescribed by: ELIZABETH SERNA on 05/12/16 1143 Lisinopril 40 Mg Tablet, 40 MG PO DAILY, (Reported) Metoprolol Succinate 50 Mg Tab.er.24h, 50 MG PO HS, (Reported) Nortriptyline HCl 25 Mg Capsule, 50 MG PO HS, (Reported) TAKES 2 (25 MG) CAPSULES Nystatin 15 Gm Cream..g., TP BID, (Reported) Pantoprazole Sodium 40 Mg Tablet.dr, 40 MG PO HS, (Reported) Potassium Chloride 20 Meq Tab.er.prt, 20 MEQ PO DAILY Prescribed by: ELIZABETH SERNA on 05/12/16 1143 Rivaroxaban 20 Mg Tablet, 20 MG PO HS, (Reported) Sucralfate 1 Gm Tablet, 1 GM PO ACHS, (Reported) Vilazodone Hydrochloride 20 Mg Tablet, 20 MG PO DAILY, (Reported) Zolpidem Tartrate 5 Mg Tablet, 5 MG PO HS, (Reported) Patient Home Medication List Home Medication List Reviewed: Yes Review of Systems Review of Systems Constitutional: see HPI EENTM: see HPI Respiratory: no symptoms reported Cardiovascular: see HPI, chest pain (last night none today), other (near syncope) Genitourinary: no symptoms reported Musculoskeletal: no symptoms reported Skin: no symptoms reported Psychiatric/Neurological: No Symptoms Reported Past Abjrdkm-Pgqkfx-Vswkvc Hx Patient Social History Recent Hopitalizations: Yes (03/08/16 FOR A-FIB) Immunizations Up To Date Tetanus Booster (TDap): More than 5yrs PED Vaccines UTD: Yes Date of Pneumonia Vaccine: May 10, 2013 Date of Influenza Vaccine: Feb 25, 2016 Seasonal Allergies Seasonal Allergies: Yes Past Medical History Surgeries: Yes (cyst from right armpit removed with skin graft, LEFT SINUS SX) Respiratory: Yes (ASTHMA-MILD, SLEEP APNEA-CPAP) Asthma, Sleep Apnea Currently Using CPAP: Yes Cardiac: Yes (HAS A LINK DEVICE) Atrial Fibrillation, Hypertension Neurological: No Reproductive Disorders: No Female Reproductive Disorders: Denies Sexually Transmitted Disease: No HIV/AIDS: No Gastrointestinal: Yes Gastroesophageal Reflux, Chronic Constipation, Irritable Bowel Musculoskeletal: Yes Arthritis Endocrine: No Loss of Vision: Denies Hearing Impairment: Denies Cancer: No Psychosocial: Yes Anxiety, Depression Integumentary: No Blood Disorders: No Family Medical History Alcoholism Cancer Cancer of colon (GRANDMA) Cataract Dementia Family history: Alzheimer's disease Family history: Arthritis Family history: Diabetes mellitus Family history: Hypertension Family history: Osteoporosis Heart disease History of - anemia History of - respiratory disease Hypercholesterolemia Myocardial infarction Visual impairment No Family History of: Abdominal aortic aneurysm Kenny's disease Aphasia Chest pain Congenital heart disease Congestive heart failure Cystic fibrosis Dysphagia Family history: Allergy Family history: Asthma Family history: Breast disease Family history: Cardiovascular disease Family history: Coronary thrombosis Family history: Gastrointestinal disease Family history: Glaucoma Family history: Thyroid disorder Headache Hearing loss Hereditary disease History of - disorder History of drug abuse Human immunodeficiency virus (HIV) seropositivity Infertile Kidney disease Malignant neoplasm of lung Parkinson's disease Prostate cancer Psychotic disorder Seizure disorder Stroke Tuberculosis No Pertinent Family Hx Physical Exam Vital Signs Vital Signs - First Documented 09/18/18 14:54 Temp 97.6 Pulse 69 Resp 21 B/P (MAP) 121/77 (92) Pulse Ox 99 O2 Delivery Room Air Capillary Refill : Height, Weight, BMI Height: 5'1.00" Weight: 260lbs. 8.0oz. 117.669406ud; 43.5 BMI Method:Stated General Appearance: No Apparent Distress, WD/WN Eyes: Bilateral Eye Normal Inspection, Bilateral Eye PERRL, Bilateral Eye EOMI Neck: Full Range of Motion, Normal Inspection Respiratory: No Accessory Muscle Use, No Respiratory Distress Cardiovascular: Regular Rate, Rhythm, Normal Peripheral Pulses, Other (sinus rate of 70) Gastrointestinal: Non Tender, Soft Extremity: Normal Capillary Refill, Normal Inspection Neurologic/Psychiatric: Alert, Oriented x3 Skin: Normal Color, Warm/Dry Progress/Results/Core Measures Suspected Sepsis SIRS Temperature: Pulse: Respiratory Rate: Laboratory Tests 09/18/18 15:17: White Blood Count 8.9 Blood Pressure / Mean: Laboratory Tests 09/18/18 15:17: Platelet Count 278 Results/Orders Lab Results Laboratory Tests Test 09/18/18 15:17 Range/Units White Blood Count 8.9 4.3-11.0 10^3/uL Red Blood Count 4.33 L 4.35-5.85 10^6/uL Hemoglobin 12.4 11.5-16.0 G/DL Hematocrit 37 35-52 % Mean Corpuscular Volume 86 80-99 FL Mean Corpuscular Hemoglobin 29 25-34 PG Mean Corpuscular Hemoglobin Concent 33 32-36 G/DL Red Cell Distribution Width 14.3 10.0-14.5 % Platelet Count 278 130-400 10^3/uL Mean Platelet Volume 10.8 H 7.4-10.4 FL Neutrophils (%) (Auto) 65 42-75 % Lymphocytes (%) (Auto) 23 12-44 % Monocytes (%) (Auto) 8 0-12 % Eosinophils (%) (Auto) 3 0-10 % Basophils (%) (Auto) 1 0-10 % Neutrophils # (Auto) 5.8 1.8-7.8 X 10^3 Lymphocytes # (Auto) 2.0 1.0-4.0 X 10^3 Monocytes # (Auto) 0.7 0.0-1.0 X 10^3 Eosinophils # (Auto) 0.3 0.0-0.3 10^3/uL Basophils # (Auto) 0.0 0.0-0.1 10^3/uL My Orders Orders - MARLEEN AGUILERA APRN Cbc With Automated Diff (09/18/18 14:54) Ekg Tracing (09/18/18 14:54) Ns Iv 1000 Ml (Sodium Chloride 0.9%) (09/18/18 15:00) Ed Iv/Invasive Line Start (09/18/18 14:54) Comprehensive Metabolic Panel (09/18/18 16:49) Troponin I (09/18/18 16:49) Vital Signs/I&O 09/18/18 14:54 Temp 97.6 Pulse 69 Resp 21 B/P (MAP) 121/77 (92) Pulse Ox 99 O2 Delivery Room Air Capillary Refill : Departure Communication (Admissions) 3776- she has remained asymptomatic during her entire ER stay except at the very end, I stood her up. Upon standing she had a recurrence of dizziness but not as intense as it was while she was at [facility]. During this time her heart rate remained 70s sinus no ectopy and blood pressure 144/83. Given this I will prescribe meclizine Impression Primary Impression: Near syncope Additional Impression: Vertigo Disposition: 01 HOME, SELF-CARE Condition: Stable Departure-Patient Inst. Decision time for Depature: 15:00 Referrals: DESIREE SPENCE MD (PCP/Family) Primary Care Physician Patient Instructions: Syncope (Fainting) Add. Discharge Instructions: 1. Keep her appointment tomorrow with Dr. Gerardo 2. Return to ER for any concerns. All discharge instructions reviewed with patient and/or family. Voiced understanding. Scripts Meclizine HCl (Meclizine HCl) 25 Mg Tablet 25 MG PO Q6H PRN for DIZZINESS, #10 TAB Prov: MARLEEN AGUILERA APRN 09/18/18 MARLEEN AGUILERA APRN September 18, 2018 15:01
[2018-09-18 15:24] LABS: BASOPHILS % (AUTO) 1 % (0-10); EOSINOPHILS # (AUTO) 0.3 10^3/uL (0.0-0.3); EOSINOPHILS % (AUTO) 3 % (0-10); HEMATOCRIT 37 % (35-52); HEMOGLOBIN 12.4 G/DL (11.5-16.0); LYMPHOCYTES % (AUTO) 23 % (12-44); MEAN CORPUSCULAR HEMOGLOBIN 29 PG (25-34); MEAN CORPUSCULAR HGB CONC 33 G/DL (32-36); MEAN CORPUSCULAR VOLUME 86 FL (80-99); MEAN PLATELET VOLUME 10.8 FL (7.4-10.4); MONOCYTES # (AUTO) 0.7 X 10^3 (0.0-1.0); MONOCYTES % (AUTO) 8 % (0-12); NEUTROPHILS # (AUTO) 5.8 X 10^3 (1.8-7.8); NEUTROPHILS % (AUTO) 65 % (42-75); PLATELET COUNT 278 10^3/uL (130-400); RED CELL DISTRIBUTION WIDTH 14.3 % (10.0-14.5); WHITE BLOOD COUNT 8.9 10^3/uL (4.3-11.0)
[2018-09-18 16:56] LABS: ALANINE AMINOTRANSFERASE 29 U/L (0-55); ALBUMIN 3.5 GM/DL (3.2-4.5); ALKALINE PHOSPHATASE 166 U/L (40-136); BILIRUBIN,TOTAL 0.1 MG/DL (0.1-1.0); BUN/CREATININE RATIO 14; CALCIUM 8.7 MG/DL (8.5-10.1); CARBON DIOXIDE 23 MMOL/L (21-32); CHLORIDE 101 MMOL/L (98-107); CREATININE SERUM 0.72 MG/DL (0.60-1.30); GFR ESTIMATED > 60; GLUCOSE 79 MG/DL (70-105); POTASSIUM 4.1 MMOL/L (3.6-5.0); SODIUM 135 MMOL/L (135-145); TOTAL PROTEIN 6.5 GM/DL (6.4-8.2)
[2018-09-18] MEDS ORDERED: MECL-106 PO (16:56)
[2018-09-18 17:01] VITALS: BP 144/86
== END 2018-09-18 17:00 | disposition home or self-care (01) ==
LOC: EDUNIT# 14:51 → ER 14:53
DX: R55 Syncope and collapse (principal); R42 Dizziness and giddiness; J45.909 Unspecified asthma, uncomplicated; G47.30 Sleep apnea, unspecified; I48.91 Unspecified atrial fibrillation; I10 Essential (primary) hypertension; K21.9 Gastro-esophageal reflux disease without esophagitis; K58.9 Irritable bowel syndrome, unspecified; F41.9 Anxiety disorder, unspecified; F32.9 Major depressive disorder, single episode, unspecified; Z87.19 Personal history of other diseases of the digestive system; Z88.8 Allergy status to other drugs, medicaments and biological substances; Z79.51 Long term (current) use of inhaled steroids; Z80.0 Family history of malignant neoplasm of digestive organs; Z82.49 Family history of ischemic heart disease and other diseases of the circulatory system; Z79.01 Long term (current) use of anticoagulants; Z94.5 Skin transplant status
CPT/HCPCS: 36415; 80053; 84484; 85025; 93005

== ENCOUNTER → 2018-09-20 | Outpatient (CLI) | payer MEDICARE, OTHER ==
[~2018-09-20] MED LIST changes: +ARIP10TA17 PO; +ASPI325T32 PO; +CEPH-507 PO; +CRV25T PO; +FURO20TA4 PO; +MECL-106 PO; +VILA40TA PO
[2018-09-20 13:29] LABS: ALBUMIN 3.8 GM/DL (3.2-4.5); BUN/CREATININE RATIO 8; CALCIUM 9.5 MG/DL (8.5-10.1); CARBON DIOXIDE 23 MMOL/L (21-32); CHLORIDE 97 MMOL/L (98-107); CREATININE SERUM 0.73 MG/DL (0.60-1.30); GFR ESTIMATED > 60; GLUCOSE 110 MG/DL (70-105); PHOSPHORUS 3.6 MG/DL (2.3-4.7); SODIUM 130 MMOL/L (135-145)
== END ==
LOC: LAB 13:02
PROVIDERS: ATTEND Internal Medicine Nephrology
DX: N18.2 Chronic kidney disease, stage 2 (mild) (principal)
CPT/HCPCS: 36415; 80069

== ENCOUNTER 2018-09-21 11:22 | Day surgery (SDC) | payer MEDICARE ==
[~2018-09-21] VITALS: Ht 171.4 cm; Wt 117.9 kg
[2018-09-21] VITALS (13 sets, daily range): BP systolic 163–184; BP diastolic 70–88
[~2018-09-21 11:22] MED LIST changes: -ARIP10TA17 PO; -ASPI325T32 PO; -CEPH-507 PO; -CRV25T PO; -FURO20TA4 PO; -VILA40TA PO
[2018-09-21] MEDS ORDERED: HEParin (CATH LAB) 1,000 ML IV ONE (11:28)
[2018-09-21] MEDS ORDERED: NS IV 1000 ML 1,000 ML ONE (11:28)
[2018-09-21] MEDS ORDERED: LIDOCAINE 1% INJ 20 ML 20 ML VIAL ONE ×2 (11:28→15:02)
[2018-09-21] MEDS ORDERED: NS IV 1000 ML 1,000 ML IV ONE (11:28)
[2018-09-21] MEDS ORDERED: ceFAZolin INJECTION 2,000 MG ONE (11:28)
[2018-09-21] MEDS ORDERED: BACITRACIN INJECTION 50,000 UNIT, SODIUM CHLORIDE 0.9% IRRIGATIO 500 ML IR ONE ×2 (11:30)
[2018-09-21] MEDS ORDERED: ceFAZolin INJECTION 1,000 MG VIAL IV ONE (11:30)
[2018-09-21 11:54] LABS: HEMOGLOBIN 12.7 G/DL (11.5-16.0); RED CELL DISTRIBUTION WIDTH 13.9 % (10.0-14.5); WHITE BLOOD COUNT 6.8 10^3/uL (4.3-11.0)
[2018-09-21 12:02] LABS: INR 0.9 (0.8-1.4); PROTHROMBIN TIME PATIENT 12.4 SEC (12.2-14.7)
[2018-09-21 12:06] LABS: ALANINE AMINOTRANSFERASE 36 U/L (0-55); ALBUMIN 3.8 GM/DL (3.2-4.5); ALKALINE PHOSPHATASE 146 U/L (40-136); BILIRUBIN,TOTAL 0.3 MG/DL (0.1-1.0); BUN/CREATININE RATIO 7; CARBON DIOXIDE 26 MMOL/L (21-32); CHLORIDE 101 MMOL/L (98-107); CREATININE SERUM 0.67 MG/DL (0.60-1.30); GFR ESTIMATED > 60; GLUCOSE 96 MG/DL (70-105); POTASSIUM 4.6 MMOL/L (3.6-5.0); SODIUM 135 MMOL/L (135-145); TOTAL PROTEIN 6.9 GM/DL (6.4-8.2)
[2018-09-21] MEDS ORDERED: NS (IVPB) 100 ML ONE (12:13)
[2018-09-21] MEDS ORDERED: VILA40TA PO (12:31)
[2018-09-21] MEDS ORDERED: FURO20TA4 PO (12:31)
[2018-09-21] MEDS ORDERED: CRV25T PO (12:31)
[2018-09-21] MEDS ORDERED: ASPI325T32 PO (12:31)
[2018-09-21] MEDS ORDERED: ARIP10TA17 PO (12:31)
[2018-09-21] MEDS ORDERED: fentaNYL INJECTION 100 MCG/2 ML AMP ONE ×2 (13:42→14:01)
[2018-09-21] MEDS ORDERED: MIDAZOLAM 5 MG/5 ML (VERSED) VIAL ONE ×2 (13:42→14:01)
[2018-09-21] MEDS ORDERED: NEO/POLY/BAC (NEOSPORIN) OINT 15 GM TUBE ONE (15:01)
--- NOTE | 2018-09-21 15:07 | Cardiac Procedure Note-CS/ASA ---
Pre-Procedure Note Pre-Op Procedure Note H&P Reviewed The H&P was reviewed, patient examined and no changes noted. Date H&P Reviewed: September 21, 2018 Time H&P Reviewed: 12:00 Conscious Sedation Pre-Proced Time 12:00 ASA Score 3 For ASA 3 and 4: Consider anesthesia and medical clearance. Also, for patients with a history of failed moderate sedation consider anesthesia. Airway Lungs Heart ASA score ASA 1: a normal healthy patient ASA 2: a patient with a mild systemic disease (mid diabetes, controlled hypertension, obesity ASA 3: a patient with a severe systemic disease that limits activity (angina , COPD, prior Myocardial infarction) ASA 4: a patient with an incapacitating disease that is a constant threat to life (CHF, renal failure) ASA 5: a moribund patient not expected to survive 24 hrs. (ruptured aneurysm) ASA 6: a declared brain- patient whose organs are being harvested. For emergent operations, add the letter E after the classification Mallampati Classification Grade 1 Sedation Plan Analgesia, Amnesia, Plan communicated to team members, Discussed options with patient/fam, Discussed risks with patient/fam The patient is an appropriate candidate to undergo the planned procedure, sedation, and anesthesia. The patient immediately re-assessed prior to indication. Rita MEJIA MD September 21, 2018 15:07
--- NOTE | 2018-09-21 15:13 | Permanent Pacemaker Implant ---
Dual Chamber Pacemaker Implant PROCEDURE PHYSICIAN: Augie Gerardo MD DUAL CHAMBER PACEMAKER IMPLANTATION: DATE OF PROCEDURE: 09/21/18 INDICATION: Severe symptomatic sinus node dysfunction. PREOPERATIVE DIAGNOSIS: Severe symptomatic sinus node dysfunction. POSTOPERATIVE DIAGNOSIS: Successful dual-chamber permanent pacemaker implantation. HISTORY: This is a 57-year-old lady with severe symptomatic sinus node dysfunction with bradycardia, sinus pauses and near syncope. Dual-chamber permanent pacemaker was recommended. PROCEDURE PERFORMED: 1. Dual-chamber permanent pacemaker implantation. 2. Fluoroscopy. 3. Central venous access. 4. Implantable loop recorder extraction. ANESTHESIA: Local anesthesia, conscious sedation. COMPLICATIONS: None. ESTIMATED BLOOD LOSS:20 mL. SPECIMENS: None. ORAL ANTICOAGULATION: None. FLUOROSCOPY TIME: 6.3 minutes. FLUOROSCOPY DOSE: 31 mgy. CONTRAST DOSE: none. PROCEDURE DETAILS: The patient is a 57 female and after all of the patients questions were answered, the patient was brought to the EP Lab. The patient's left chest was prepped and draped in sterile fashion. A 2 inch horizontal incision was made 1 cm below the clavicle and dissection carried down to the pectoralis fascia. Using the modified Seldinger technique and under fluoroscopy guidance, the anterior aspect of the left axillary vein was accessed 2 times. The J wires were secured to the drapes with a mosquito clamp. A 6-Omani sheath was introduced over one of the J-wires. The RV lead was then inserted. The RV lead was directed across the tricuspid valve to the apical septal portion of the right ventricle. The position was checked in MELANIE and ANAND views. The screw was deployed and the lead connected to the visual basic programmer. Close sensing and pacing thresholds were obtained. Diaphragmatic pacing was ruled out. The lead was secured with 2-0 silk ties to the underlying muscle and fascia. Next, a 6-Omani sheath was introduced through the remaining J-wire. An atrial lead was then introduced and guided to the level of the right appendage. The screw was deployed and the lead was connected to the interrogator. Good sensing and pacing thresholds were obtained. Diaphragmatic pacing was ruled out. The leads were secured with 2-0 silk ties to the underlying muscle and fascia. The leads were connected to the device in a hermetic fashion. The device and leads were placed in the pocket. Aggressive irrigation with saline solution was done. The device was secured to the underlying muscle and fascia with a 2-0 silk tie. interrogation of the device revealed good integrity of all the leads and good connections. The wound was then closed using 2 layers. The first layer was interrupted 2-0 absorbable Vicryl suture. The last layer was a single subcuticular layer with 4- 0 Vicryl suture. Half inch Steri-Strips and a small dressing were then applied to the wound. The area of the previous loop monitor was draped in a sterile fashion. Lidocaine was given. A small incision was made the and the Biotronik loop recorder was extracted. Steristrips will be placed. The patient tolerated the procedure well and was returned to the recovery room in stable condition with stable vital signs. DEVICE INFORMATION: Biotronik Eluna 8 DR-T reference number [id number], serial number [id number]. RA LEAD: Solia S 53, Biotronik, reference number [id number]. Serial number [id number]. RV LEAD: Solia S 60, Biotronik, reference number [id number], serial number [id number]. PER-OPERATIVE DEVICE INTERROGATION: Right atrium, P-wave 3.8 mV, impedance 504 ohms, threshold 0.840 0.4 ms. RV, R wave 10.4 mV, impedance 744 ohms, threshold 0.9 V at 0.4 ms. IMMEDIATE POSTOPERATIVE DEVICE INTERROGATION: Right atrium, P-wave 5.4 mV, impedance 526 ohms, threshold 0.8 V at 0.4 ms. RV, R wave 9.5 mV, impedance 799 ohms, threshold 0.6 V at 0.4 ms. PLAN: The patient transferred to the ICU. We will continue with two more doses of IV antibiotics. We will check a chest x-ray and interrogate the device in the morning. The patient will continue on oral antibiotics for 3 days. Augie Gerardo MD, [facility], CCDS Cardiac Electrophysiology Rita GERARDO MD September 21, 2018 15:13
[2018-09-21] MEDS ORDERED: NS IV 1000 ML 1,000 ML IV SCH (15:14)
[2018-09-21] MEDS ORDERED: PATIENT MAY USE OWN MEDS, ALL PO SCH (15:15)
--- NOTE | 2018-09-21 15:35 | NUR ---
ELIZABETH ESPITIA admitted to room 408-1, with an admitting diagnosis of POST PACEMAKER PLACEMENT09/21/18 from [facility] via BED, accompanied by CARD ENDORSEMENT CLERK.ELIZABETH ESPITIA introduced to surroundings, call light, bed controls, phone, TV, temperature control, lights, meal times, smoking policy, visitor policy, side rail policy, bathrooms and showers. Patient Rights given to patient in the handbook. ELIZABETH ESPITIA verbalizes understanding that [facility] is not responsible for the loss or damage to any personal effects or valuables that are kept in the patients posession during their hospitalization. The following Patient Care Plans were discussed with the PT: Discharge Planning, ALT CARDIOPULM TISSUE PERF., PAIN, ACT INTOL, AND ANXIETY ELIZABETH ESPITIA verbalizes understanding of Interdisciplinary Patient Education. Patient and/or family were informed about the Rapid Response Team and its purpose. REPOST AT BEDSIDE
--- NOTE | 2018-09-21 16:59 | Diagnostic Imaging Report ---
INDICATION: Pacemaker placement. TIME OF EXAM: 03:44 p.m. Correlation is made with prior study from 09/17/2018. FINDINGS: Dual-lead left subclavian cardiac pacemaker has been placed and has the lead tips in the region of the right atrium and right ventricle. No pneumothorax is identified. Lungs are clear. IMPRESSION: Pacemaker placement, as described. Dictated by: Dictated on workstation # [id number]
[2018-09-21] MEDS: ceFAZolin INJECTION 1,000 MG in WATER (STERILE) FOR INJECTION 10 ML IV SCH (19:04)
[2018-09-21] MEDS ORDERED: oxyCODONE/APAP 5/325MG (PERCOCET 5) TABLET PO PRN (21:00)
[2018-09-21] MEDS ORDERED: NON-FORMULARY MEDICATION 1 EA EA (Amlodipine Besylate 10 MG) PO SCH (21:00)
[2018-09-21] MEDS ORDERED: NORTRIPTYLINE 25 MG (PAMELOR) CAP PO SCH (21:00)
[2018-09-21] MEDS ORDERED: busPIRone 10 MG (BUSPAR) TAB PO SCH (21:00)
[2018-09-21] MEDS ORDERED: NON-FORMULARY MEDICATION 1 EA EA (Carvedilol (Coreg) 25 MG) PO SCH (21:00)
[2018-09-21] MEDS ORDERED: amLODIPine 10 MG (NORVASC) TAB PO SCH (21:00)
[2018-09-21] MEDS ORDERED: NON-FORMULARY MEDICATION 1 EA EA (Buspirone HCl 20 MG) PO SCH (21:00)
--- NOTE | 2018-09-21 21:01 | NUR ---
PT COMPLAINING OF PAIN. SPOKE WITH DR. MCCOY AND RECEIVED TELEPHONE ORDERS FOR TYLENOL 650MG Q6HRS PRN PAIN, AND PERCOCET 5MG/325MG Q8HRS PRN PAIN IF THE TYLENOL NOT EFFECTIVE. ALSO REVIEWED AND STARTED PT HOME MEDICATIONS. MEDS VERIFIED WITH DR. MCCOY ARE FOLLOWS: NORTRIPTYLINE 50MG HS AMLODIPINE 10MG HS COREG 25MG BID LASIX 20MG DAILY ARIPIPRAZOLE 10MG DAILY VILAZODONE 40MG DAILY BUSPIRONE 20MG HS AND 10MG DAILY ASPIRIN 325MG DAILY
[2018-09-21] MEDS: CARVEDILOL 12.5 MG (COREG) TABLET PO SCH (22:36)
[2018-09-21] MEDS: ACETAMINOPHEN 325 MG TABLET PO PRN (22:36)
[2018-09-22 00:35] VITALS: BP 127/77
[2018-09-22] MEDS: ceFAZolin INJECTION 1,000 MG in WATER (STERILE) FOR INJECTION 10 ML IV SCH (02:58)
[2018-09-22 04:10] VITALS: BP 154/89
[2018-09-22] MEDS: ACETAMINOPHEN 325 MG TABLET PO PRN (06:00)
[2018-09-22 06:15] LABS: HEMOGLOBIN 11.6 G/DL (11.5-16.0); MEAN PLATELET VOLUME 9.9 FL (7.4-10.4); RED CELL DISTRIBUTION WIDTH 14.2 % (10.0-14.5); WHITE BLOOD COUNT 6.3 10^3/uL (4.3-11.0)
[2018-09-22 06:34] LABS: ALANINE AMINOTRANSFERASE 31 U/L (0-55); ALBUMIN 3.4 GM/DL (3.2-4.5); ALKALINE PHOSPHATASE 133 U/L (40-136); BILIRUBIN,TOTAL 0.2 MG/DL (0.1-1.0); BUN/CREATININE RATIO 6; CALCIUM 8.7 MG/DL (8.5-10.1); CARBON DIOXIDE 21 MMOL/L (21-32); CHLORIDE 103 MMOL/L (98-107); CREATININE SERUM 0.62 MG/DL (0.60-1.30); GFR ESTIMATED > 60; GLUCOSE 100 MG/DL (70-105); POTASSIUM 4.1 MMOL/L (3.6-5.0); SODIUM 134 MMOL/L (135-145); TOTAL PROTEIN 6.1 GM/DL (6.4-8.2)
[2018-09-22 08:00] VITALS: BP 166/78
[2018-09-22] MEDS: CARVEDILOL 12.5 MG (COREG) TABLET PO SCH (08:24)
[2018-09-22] MEDS ORDERED: CEPH-507 PO (08:40)
[2018-09-22] MEDS ORDERED: ASPIRIN E.C. 325 MG (ECOTRIN) TABLET PO SCH (09:00)
[2018-09-22] MEDS ORDERED: NON-FORMULARY MEDICATION 1 EA EA (Buspirone HCl 10 MG) PO SCH (09:00)
[2018-09-22] MEDS ORDERED: busPIRone 10 MG (BUSPAR) TAB PO SCH ×2 (09:00→21:00)
[2018-09-22] MEDS ORDERED: FUROSEMIDE 20 MG (LASIX) TAB PO SCH (09:00)
[2018-09-22] MEDS ORDERED: NON-FORMULARY MEDICATION 1 EA EA (Aripiprazole 10 MG) PO SCH (09:00)
[2018-09-22] MEDS ORDERED: CARVEDILOL 12.5 MG (COREG) TABLET PO SCH (09:00)
[2018-09-22] MEDS ORDERED: VILAZODONE 40 MG (VIIBRYD) TABLET (NON-FORMULARY) PO SCH (09:00)
--- NOTE | 2018-09-22 10:59 | Discharge Inst-Post Device ---
Discharge Inst-Post Device Follow up/Plan Dr. Gerardo her previously scheduled appointment. Heart Healthy Diet Do not lift arm on side of device placement above head for 4 weeks. Do not push and pull heavy objects for 4 weeks. Activity as tolerated. Leave dressing on until follow up at the office. Rita GERARDO MD September 22, 2018 10:59
--- NOTE | 2018-09-22 11:01 | Cardiology Discharge Summary ---
Diagnosis/Chief Complaint Date of Admission 09/21/2018 Date of Discharge 09/22/2018 Admission Diagnosis Severe symptomatic sinus node dysfunction. Final/Discharge Diagnosis Successful dual-chamber permanent pacemaker. Chief Complaint/HPI Chief Complaint/HPI This is a 57-year-old lady with severe symptomatic sinus node dysfunction with bradycardia, sinus pauses and near syncope. Dual-chamber permanent pacemaker was recommended. Discharge Summary Procedures Successful dual-chamber permanent pacemaker implantation. ILR extraction. Discharge Physical Examination Unremarkable. Hospital Course Was the Problem List Reviewed?: Yes Unremarkable. Normal device interrogation this morning. Pending Labs Laboratory Tests 09/22/18 05:38: White Blood Count 6.3, Red Blood Count 4.05, Hemoglobin 11.6, Hematocrit 35, Mean Corpuscular Volume 87, Mean Corpuscular Hemoglobin 29, Mean Corpuscular Hemoglobin Concent 33, Red Cell Distribution Width 14.2, Platelet Count 220, Mean Platelet Volume 9.9, Sodium Level 134, Potassium Level 4.1, Chloride Level 103, Carbon Dioxide Level 21, Anion Gap 10, Blood Urea Nitrogen 4, Creatinine 0.62, Estimat Glomerular Filtration Rate > 60, BUN/Creatinine Ratio 6, Glucose Level 100, Calcium Level 8.7, Corrected Calcium 9.2, Total Bilirubin 0.2, Aspartate Amino Transf (AST/SGOT) 21, Alanine Aminotransferase (ALT/SGPT) 31, Alkaline Phosphatase 133, Total Protein 6.1, Albumin 3.4 Radiology Reviewed No pneumothorax on chest x-ray. Discussion & Recommendations Discussion Discussed at length with the patient. Follow up appt.: Wound check in one week with RN. Dr. Gerardo as previously scheduled appointment. Dicharge Diet: Cardiac Diet Activity as Tolerated: Yes Home Medications Reviewed patient Home Medication Reconciliation performed by pharmacy medication reconciliations body technician/painter and/or nursing. Patients Allergies have been reviewed. Discharge Home Medications: Reviewed and agree with Discharge Medication list on patient's Discharge I nstruction sheet Condition at discharge Stable. Instructions to patient/family Dr. Gerardo her previously scheduled appointment. Clinical Quality Measures DVT/VTE Risk/Contraindication: Risk Factor Score Per Nursin RFS Level Per Nursing on Admit: 2=Moderate Rita GERARDO MD September 22, 2018 11:00
[2018-09-22 11:05] VITALS: BP 166/78
--- NOTE | 2018-09-22 11:05 | NUR ---
ELIZABETH ESPITIA demonstrates understanding of discharge instructions and accurately returns instructions upon questioning. Copy of Post-Discharge Instructions and Medication Discharge Instructions given to PATIENT. ELIZABETH ESPITIA is able to manage continuing needs after discharge. Patients belongings returned to [facility]. Skin dry and intact; no breakdown noted. Patient discharged from [facility]- on at 1105. ELIZABETH ESPITIA left floor via WHEELCHAIR, accompanied by MOTHER AND STAFF.
[2018-09-22] MEDS ORDERED: amLODIPine 10 MG (NORVASC) TAB PO SCH (21:00)
== END 2018-09-22 11:05 | disposition home or self-care (01) ==
LOC: CATH 11:22 → 4TH 16:10 → CATH 09-22 11:05
PROVIDERS: ATTEND Internal Medicine Interventional Cardiology
DX: I49.5 Sick sinus syndrome (principal); I48.0 Paroxysmal atrial fibrillation; I10 Essential (primary) hypertension; E78.5 Hyperlipidemia, unspecified; J45.909 Unspecified asthma, uncomplicated; F32.9 Major depressive disorder, single episode, unspecified; G47.00 Insomnia, unspecified; E66.9 Obesity, unspecified; Z68.41 Body mass index [BMI] 40.0-44.9, adult; Z79.82 Long term (current) use of aspirin; Z79.899 Other long term (current) drug therapy
CPT/HCPCS: 33208; 33286; 36415; 71045; 80053; 85027; 85610; 85730; 87081; 93005

== ENCOUNTER → 2018-10-05 | Outpatient (CLI) | payer MEDICARE ==
[~2018-10-05] MED LIST changes: +ARIP10TA17 PO; +ASPI325T32 PO; +CEPH-507 PO; +CRV25T PO; +FURO20TA4 PO; +VILA40TA PO
[2018-10-05 13:49] LABS: ALBUMIN 3.9 GM/DL (3.2-4.5); BUN/CREATININE RATIO 7; CARBON DIOXIDE 23 MMOL/L (21-32); CHLORIDE 101 MMOL/L (98-107); CREATININE SERUM 0.67 MG/DL (0.60-1.30); GFR ESTIMATED > 60; GLUCOSE 123 MG/DL (70-105); PHOSPHORUS 2.9 MG/DL (2.3-4.7); POTASSIUM 3.6 MMOL/L (3.6-5.0); SODIUM 134 MMOL/L (135-145)
== END ==
LOC: LAB 13:08
PROVIDERS: ATTEND Internal Medicine Nephrology
DX: N18.2 Chronic kidney disease, stage 2 (mild) (principal)
CPT/HCPCS: 36415; 80069

== ENCOUNTER 2018-10-06 09:06 | Emergency (ER) | payer MEDICARE ==
[~2018-10-06] VITALS: Ht 170.2 cm; Wt 117.9 kg
--- OUTSIDE RECORDS SUMMARY | 2018-10-06 09:12 | XMS REPORT ---
Author Author Migration, Doctor Organization [facility] Address Unknown Phone Unavailable Care Team Providers Care Sheet Tailer Name Role Phone Migration, Doctor Unavailable Unavailable PROBLEMS Type Condition ICD9-CM Code BXM55-HA Code Onset Dates Condition Status SNOMED Code Problem Chronic migraine G43.709 Active 10125590 Problem Mild intermittent asthma without complication J45.20 Active 010350759 Problem Idiopathic peripheral neuropathy G60.9 Active 11926562 Problem Hidradenitis L73.2 Active 68285868 Problem Obstructive sleep apnea G47.33 Active 66505478 Problem Elevated alkaline phosphatase level R74.8 Active 850422314 Problem Hyperlipidemia E78.5 Active 45754951 Problem Essential hypertension I10 Active 95292210 Problem Chronic frontal sinusitis J32.1 Active 93795614 Problem Paroxysmal atrial fibrillation I48.0 Active 907044773 Problem Other chronic gastritis without hemorrhage K29.50 Active 2775476 Problem Intertrigo L30.4 Active 08408053 Problem Hyponatremia E87.1 Active 60170255 Problem Primary insomnia F51.01 Active 986407172 Problem Mild intermittent asthma with acute exacerbation J45.21 Active 377657689 Problem Vitamin D deficiency E55.9 Active 34076098 Problem Seasonal allergies J30.2 Active 903978790 Problem Generalized anxiety disorder F41.1 Active 344148249 Problem Depression, unspecified depression type F32.9 Active 38777845 Problem Fasciculations of muscle R25.3 Active 65039352 Problem BMI 40.0-44.9, adult Z68.41 Active 315915034 Problem Secondary pulmonary arterial hypertension I27.21 Active 51823005 ALLERGIES No Information ENCOUNTERS Encounter Location Date Diagnosis [facility] [address] [address] Oct, [facility] [address] [address] September, [facility] [id number] [place] [address] September, Bronchitis J40 [facility] [id number] [place] [address] Aug, [facility] [id number] [place] [address] Aug, Mild intermittent asthma with acute exacerbation J45.21 and Morbid obesity E66.01 [facility] [id number] [place] [address] Aug, [facility] [id number] [place] [address] Aug, Essential hypertension I10 ; Hyperlipidemia E78.5 ; Intertrigo L30.4 ; Morbid obesity E66.01 and BMI 40.0-44.9, adult Z68.41 [facility] [id number] [place] [address] Jul, Essential hypertension I10 [facility] [id number] [place] [address] Jul, Essential hypertension I10 [facility] [id number] [place] [address] Jul, [facility] [id number] [place] [address] Jun, [facility] [id number] [place] [address] May, Essential hypertension I10 [facility] [id number] [place] [address] May, Essential hypertension I10 [facility] [id number] [place] [address] Apr, Essential hypertension I10 ; Intertrigo L30.4 ; Mild intermittent asthma without complication J45.20 and BMI 40.0-44.9, adult Z68.41 [facility] [id number] [place] [address] Apr, Essential hypertension I10 [facility] [address], [place] [address] Mar, [facility] [id number] [place] [address] Mar, [facility] [id number] [place] [address] Feb, Essential hypertension I10 [facility] [id number] [place] [address] Feb, Intertrigo L30.4 and Encounter for immunization Z23 [facility] [id number] [place] [address] Feb, [facility] [id number] [place] [address] Jan, Essential hypertension I10 [facility] [id number] [place] [address] Jan, [facility] [id number] [place] [address] Jan, Screening for cervical cancer Z12.4 ; BMI 40.0-44.9, adult Z68.41 ; Screening for breast cancer Z12.31 ; Candidal intertrigo B37.2 and Elevated glucose level R73.09 [facility] [id number] [place] [address] Jan, Essential hypertension I10 [facility] [address], [place] [address] Dec, [facility] [id number] [place] [address] Dec, [facility] [address], [place] [address] Dec, Essential hypertension I10 [facility] [id number] [place] [address] Nov, Essential hypertension I10 [place] [id number] [place] [address] Nov, [place] [id number] [place] [address] Nov, Essential hypertension I10 and BMI 40.0-44.9, adult Z68.41 [place] [id number] [place] [address] Oct, Essential hypertension I10 and Chronic kidney disease, unspecified CKD stage N18.9 [place] [id number] [place] [address] Oct, Essential hypertension I10 and Chronic kidney disease, unspecified CKD stage N18.9 [place] [id number] [place] [address] Oct, [place] [id number] [place] [address] September, Medicare annual wellness visit, initial Z00.00 ; Mild intermittent asthma without complication J45.20 ; Generalized anxiety disorder F41.1 ; Depression, unspecified depression type F32.9 ; Paroxysmal atrial fibrillation I48.0 ; Obstructive sleep apnea G47.33 ; Hyponatremia E87.1 ; Need for hepatitis C screening test Z11.59 ; Encounter for immunization Z23 ; Secondary pulmonary arterial hypertension I27.21 and BMI 40.0-44.9, adult Z68.41 [id number] [place] [address] Aug, Essential hypertension I10 [facility] [address] [place] [id number] [place] [address] Jun, Dysuria R30.0 ; UTI symptoms R39.9 and Candidiasis of breast B37.89 [place] [place] [id number] [place] [address] Jun, Hyponatremia E87.1 [address], [place] [address] Jun, Hyponatremia E87.1 [facility] [id number] [place] [address] Jun, Hyponatremia E87.1 [facility] [id number] [place] [address] Jun, [facility] [id number] [place] [address] May, Hyponatremia E87.1 [facility] [id number] [place] [address] May, Hyponatremia E87.1 [facility] [id number] [place] [address] May, Hyponatremia E87.1 [facility] [id number] [place] [address] May, Hyponatremia E87.1 [facility] [id number] [place] [address] Apr, Hyponatremia E87.1 ; Fasciculations of muscle R25.3 and Hyperlipidemia E78.5 [place] [id number] [place] [address] Apr, Cough R05 ; Hyponatremia E87.1 ; Fasciculations of muscle R25.3 ; Primary insomnia F51.01 ; Essential hypertension I10 ; Hyperlipidemia E78.5 ; Screening for breast cancer Z12.31 and BMI 40.0-44.9, adult Z68.41 [place] [id number] [place] [address] Apr, Essential hypertension I10 [facility] [id number] [place] [address] 14 Mar, 2017 [place] [id number] [place] [address] Mar, [facility] [address], [place] [address] Mar, [facility] [address], [place] [address] Feb, [facility] [address], [place] [address] Jan, [facility] [address], [place] [address] Dec, Essential hypertension I10 [facility] [id number] [address] Dec, [facility] [address], [place] [address] Dec, Essential hypertension I10 [facility] [address], [place] [address] Nov, [facility] [address], [place] [address] Oct, Essential hypertension I10 [facility] [address], [place] [address] Oct, Essential hypertension I10 [facility] [address], [place] [address] Oct, [facility] [address], [place] [address] September, [facility] [address], [place] [address] September, Essential hypertension I10 [facility] [id number] [address] September, [facility] [address], [place] [address] September, Essential hypertension I10 ; Hyperlipidemia E78.5 and Hyponatremia E87.1 [facility] [id number] [place] [address] September, Mild intermittent asthma without complication J45.20 ; Essential hypertension I10 ; Hyperlipidemia E78.5 ; Hyponatremia E87.1 and Dysuria R30.0 [facility] [id number] [place] [address] September, Other chronic gastritis without hemorrhage K29.50 ; Paroxysmal atrial fibrillation I48.0 and Essential hypertension I10 [place] [id number] [place] [address] Aug, [place] [address] [address] Jul, [place] [id number] [place] [address] 14 Jun, 2016 [facility] [id number] [place] [address] 07 Jun, 2016 Dysuria R30.0 and Acute cystitis with hematuria N30.01 [place] [id number] [place] [address] Jun, Essential hypertension I10 [place] [id number] [place] [address] May, Paroxysmal atrial fibrillation I48.0 [place] [id number] [place] [address] May, Other chronic gastritis without hemorrhage K29.50 [place] [id number] [place] [address] May, [place] [address] [address] May, Hyponatremia E87.1 ; Essential hypertension I10 and Other chronic gastritis without hemorrhage K29.50 [place] [id number] [place] [address] May, Hyponatremia E87.1 [place] [id number] [place] [address] May, Hyponatremia E87.1 [facility] [address] [id number] May, [facility] [id number] [place] [address] 16 Apr, 2016 [facility] [address] [address] Apr, [facility] [id number] [place] [address] Mar, Essential hypertension I10 and Candidal intertrigo B37.2 [facility] [id number] [place] [address] Mar, Hyponatremia E87.1 [facility] [id number] [place] [address] 14 Mar, 2016 [facility] [id number] [place] [address] Mar, Hyponatremia E87.1 [facility] [id number] [place] [address] 09 Mar, 2016 Essential hypertension I10 ; Hyponatremia E87.1 ; Slurred speech R47.81 ; Paroxysmal atrial fibrillation I48.0 and Elevated blood sugar R73.9 [facility] [id number] [place] [address] Mar, [facility] [id number] [place] [address] Mar, [facility] [id number] [place] [address] Feb, [facility] [id number] [place] [address] 15 Jan, 2016 [facility] [id number] [place] [address] Dec, [facility] [id number] [place] [address] Nov, Scratched by cat, initial encounter W55.03XA and Other injury of unspecified body region T14.8 [facility] [id number] [place] [address] Nov, [facility] [address] [address] Oct, [facility] [id number] [place] [address] September, [facility] [id number] [place] [address] Aug, Elevated alkaline phosphatase level R74.8 [facility] [id number] [place] [address] Jul, [facility] [id number] [place] [address] Jun, Essential hypertension I10 and Bright red blood per rectum K62.5 [place] [id number] [place] [address] Jun, Elevated alkaline phosphatase level R74.8 [place] [id number] [place] [address] Jun, [facility] [id number] [place] [address] May, Essential hypertension I10 ; Hyperlipidemia E78.5 and Well woman exam (no gynecological exam) Z00.00 [place] [id number] [place] [address] May, [facility] [id number] [place] [address] May, [place] [id number] [place] [address] Mar, [place] [address], [place] [address] Mar, [place] [id number] [place] [address] Mar, [place] [id number] [place] [address] Feb, Acute recurrent maxillary sinusitis J01.01 ; Asthma, unspecified, unspecified status 493.90 ; Seasonal allergies J30.2 and Cat allergies J30.81 [place] [id number] [place] [address] Feb, Upper respiratory tract infection, unspecified upper respiratory infection J06.9 [place] [id number] [place] [address] Jan, [place] [id number] [place] [address] Jan, Dysphagia 787.20 and GERD (gastroesophageal reflux disease) 530.81 [place] [id number] [place] [address] Jan, Breast lesion 611.9 [place] [id number] [place] [address] Dec, Breast lesion 611.9 [place] [id number] [place] [address] Dec, Breast lesion 611.9 [place] [id number] [place] [address] Nov, Fatigue 780.79 and Hyperlipidemia 272.4 [place] [id number] [place] [address] Nov, Hypertension 401.9 ; Hyperlipidemia 272.4 ; Chronic frontal sinusitis 473.1 and Fatigue 780.79 [place] [id number] [place] [address] Nov, [facility] [place] [facility] [address] [id number] [place] [address] Oct, [facility] [place] [facility] [address] [id number] [place] [address] Oct, [facility] [place] [facility] [address] [id number] [place] [address] September, [facility] [place] [facility] [address] [id number] [place] [address] September, [facility] [place] [facility] [address] [id number] [place] [address] September, [facility] [place] [facility] [address] [id number] [place] [address] September, [facility] [place] [facility] [address] [id number] [place] [address] Aug, [facility] [place] [facility] [address] [id number] [place] [address] Aug, [facility] [place] [facility] [address] [id number] [place] [address] Aug, [facility] [place] [facility] [address] [id number] [place] [address] Jul, [facility] [place] [facility] [address] [id number] [place] [address] Jul, [facility] [place] [facility] [address] [id number], [place] [address] 19 Jul, 2014 [facility] [place] [facility] [address] [id number] [place] [address] 19 Jul, 2014 [facility] [place] [facility] [address] [id number] [place] [address] 18 Jul, 2014 [facility] [place] [facility] [address] [id number] [place] [address] 17 Jul, 2014 [facility] [place] [facility] [address] [id number], [place] [address] 17 Jul, 2014 [facility] [place] [facility] [address] [id number] [place] [address] 16 Jul, 2014 [facility] [place] [facility] [address] [id number] [place] [address] 16 Jul, 2014 [facility] [place] [facility] [address] [id number] [place] [address] Jul, [facility] [place] [facility] [address] [id number] [place] [address] Jul, [facility] [place] [facility] [address] [id number] [place] [address] Jul, [facility] [place] [facility] [address] [id number] [place] [address] Jul, [facility] [place] [facility] [address] [facility] [id number] [place] [address] Jul, [facility] [place] [facility] [address] [facility] [id number] [place] [address] Jul, [facility] [place] [facility] [address] [id number] [place] [address] Jun, [facility] [place] [facility] [address] [facility] [id number] [place] [address] Jun, [facility] [place] [facility] [address] [facility] [id number] [place] [address] Jun, [facility] [place] [facility] [address] [facility] [id number], [place] [address] Jun, [facility] [place] [facility] [address] [id number] [place] [address] May, [facility] [place] [facility] [address] [id number], [place] [address] May, [facility] [place] [facility] [address] [id number], [place] [address] May, [facility] [place] [facility] [address] [id number] [place] [address] May, [facility] [place] [facility] [address] [id number] [place] [address] Apr, [facility] [place] [facility] [address] [id number] [place] [address] Apr, [facility] [place] [facility] [address] [id number] [place] [address] Apr, [facility] [place] [facility] [address] [id number] [place] [address] Apr, [facility] [place] [facility] [address] [id number] [place] [address] Apr, [facility] [place] [facility] [address] [id number] [place] [address] Apr, [facility] [place] [facility] [address] [id number] [place] [address] Mar, [facility] [place] [facility] [address] [id number] [place] [address] Mar, [facility] [place] [facility] [address] [id number] [place] [address] Mar, [facility] [place] [facility] [address] [id number] [place] [address] Mar, [facility] [place] [facility] [address] [id number] [place] [address] Mar, [facility] [place] [facility] [address] [id number] [place] [address] Mar, [facility] [place] [facility] [address] [id number] [place] [address] Mar, [facility] [place] [facility] [address] [id number] [place] [address] Mar, [facility] [place] [facility] [address] [id number] [place] [address] Mar, [facility] [place] [facility] [address] [id number] [place] [address] Mar, [facility] [place] [facility] [address] [id number] [place] [address] Mar, [facility] [place] [facility] [address] [id number] [place] [address] Mar, [facility] [place] [facility] [address] [id number] [place] [address] Mar, [facility] [place] [facility] [address] [id number] [place] [address] Mar, [facility] [place] [facility] [address] [id number] [place] [address] Mar, [facility] [place] [facility] [address] [id number] [place] [address] Mar, [facility] [place] [facility] [address] [id number] [place] [address] Mar, [facility] [place] [facility] [address] [id number] [place] [address] Feb, [facility] [place] [facility] [address] [id number] [place] [address] Feb, [facility] [place] [facility] [address] [id number], [place] [address] Feb, [facility] [place] [facility] [address] [id number], [place] [address] 30 Feb, 2014 [facility] [place] [facility] [address] [id number] [place] [address] Feb, [facility] [place] [facility] [address] [id number] [place] [address] Feb, [facility] [place] [facility] [address] [id number] [place] [address] Feb, [facility] [place] [facility] [address] [id number] [place] [address] Feb, [facility] [place] [facility] [address] [id number] [place] [address] Feb, [facility] [place] [facility] [address] [id number] [place] [address] Feb, [facility] [place] [facility] [address] [id number] [place] [address] Feb, [facility] [place] [facility] [address] [id number] [place] [address] Feb, [facility] [place] [facility] [address] [id number] [place] [address] Feb, [facility] [place] [facility] [address] [id number] [place] [address] Feb, [facility] [place] [facility] [address] [id number] [place] [address] Feb, [facility] [place] [facility] [address] [id number] [place] [address] Feb, [facility] [place] [facility] [address] [id number] [place] [address] Feb, [facility] [place] [facility] [address] [id number] [place] [address] Feb, [facility] [place] [facility] [address] [id number] [place] [address] Feb, [facility] [place] [facility] [address] [id number] [place] [address] 30 Jan, 2014 [facility] [place] [facility] [address] [id number] [place] [address] 30 Jan, 2013 [facility] [place] [facility] [address] [id number] [place] [address] 29 Jan, 2013 [facility] [place] [facility] [address] [id number] [place] [address] Jan, [facility] [place] [facility] [address] [id number] [place] [address] Jan, [facility] [place] [facility] [address] [id number] [place] [address] Jan, [facility] [place] [facility] [address] [id number] [place] [address] Jan, [facility] [place] [facility] [address] [id number] [place] [address] Jan, [facility] [place] [facility] [address] [id number] [place] [address] Jan, [facility] [place] [facility] [address] [id number] [place] [address] Dec, [facility] [place] [facility] [address] [id number] [place] [address] Dec, [facility] [place] [facility] [address] [id number] [place] [address] Dec, [facility] [place] [facility] [address] [id number] [place] [address] Dec, [facility] [place] [facility] [address] [id number] [place] [address] Dec, [facility] [place] [facility] [address] [id number] [place] [address] Dec, [facility] [place] [facility] [address] [id number] [place] [address] Dec, [facility] [place] [facility] [address] [id number] [place] [address] Dec, [facility] [place] [facility] [address] [id number] [place] [address] Dec, [facility] [place] [facility] [address] [id number] [place] [address] Nov, [facility] [place] [facility] [address] [id number], [place] [address] Nov, [facility] [place] [facility] [address] [id number] [place] [address] Nov, [facility] [place] [facility] [address] [id number] [place] [address] Nov, [facility] [place] [facility] [address] [id number] [place] [address] Nov, [facility] [place] [facility] [address] [id number] [place] [address] Nov, [facility] [place] [facility] [address] [id number] [place] [address] Oct, [facility] [place] [facility] [address] [id number] [place] [address] Oct, [facility] [place] [facility] [address] [id number] [place] [address] Oct, [facility] [place] [facility] [address] [id number] [place] [address] Oct, [facility] [place] [facility] [address] [id number] [place] [address] Oct, [facility] [place] [facility] [address] [facility] [id number] [place] [address] Oct, [facility] [place] [facility] [address] [id number] [place] [address] Oct, [facility] [place] [facility] [address] [id number] [place] [address] Oct, [facility] [place] [facility] [address] [id number] [place] [address] Oct, [facility] [place] [facility] [address] [id number] [place] [address] Oct, [facility] [place] [facility] [address] [id number] [place] [address] Oct, [facility] [place] [facility] [address] [id number] [place] [address] Oct, [facility] [place] [facility] [address] [id number] [place] [address] Oct, [facility] [place] [facility] [address] [id number] [place] [address] Oct, [facility] [place] [facility] [address] [id number] [place] [address] September, [facility] [place] [facility] [address] [id number] [place] [address] September, [facility] [place] [facility] [address] [id number] [place] [address] September, [facility] [place] [facility] [address] [id number] [place] [address] September, [facility] [place] [facility] [address] [id number] [place] [address] September, [facility] [place] [facility] [address] [id number] [place] [address] September, [facility] [place] [facility] [address] [id number] [place] [address] September, [facility] [place] [facility] [address] [id number] [place] [address] September, [facility] [place] [facility] [address] [id number] [place] [address] September, [facility] [place] [facility] [address] [id number] [place] [address] September, [facility] [place] [facility] [address] [id number] [place] [address] September, [facility] [place] [facility] [address] [id number] [place] [address] September, [facility] [place] [facility] [address] [id number] [place] [address] September, [facility] [place] [facility] [address] [id number] [place] [address] September, [facility] [place] [facility] [address] [id number] [place] [address] September, [facility] [place] [facility] [address] [id number] [place] [address] September, [facility] [place] [facility] [address] [id number] [place] [address] September, [facility] [place] [facility] [address] [id number] [place] [address] September, [facility] [place] [facility] [address] [id number] [place] [address] September, [facility] [place] [facility] [address] [id number] [place] [address] Aug, [facility] [place] [facility] [address] [id number] [place] [address] Aug, [facility] [place] [facility] [address] [id number] [place] [address] Jul, [facility] [place] [facility] [address] [id number] [place] [address] Jul, [facility] [place] [facility] [address] [id number] [place] [address] Jul, [facility] [place] [facility] [address] [id number] [place] [address] Jul, [facility] [place] [facility] [address] [id number] [place] [address] Jul, [facility] [place] [facility] [address] [id number] [place] [address] Jul, [facility] [place] [facility] [address] [id number] [place] [address] Jul, [facility] [place] [facility] [address] [id number] [place] [address] 27 Jul, 2013 [facility] [place] [facility] [address] [id number] [place] [address] Jul, [facility] [place] [facility] [address] [id number] [place] [address] Jul, [facility] [place] [facility] [address] [id number] [place] [address] Jul, [facility] [place] [facility] [address] [id number] [place] [address] 14 Jul, 2013 [facility] [place] [facility] [address] [id number] [place] [address] Jul, [facility] [place] [facility] [address] [id number] [place] [address] Jul, [facility] [place] [facility] [address] [id number] [place] [address] 10 Jun, 2013 [facility] [place] [facility] [address] [id number] [place] [address] Jun, [facility] [place] [facility] [address] [id number] [place] [address] Jun, [facility] [place] [facility] [address] [id number] [place] [address] Jun, [facility] [place] [facility] [address] [id number] [place] [address] May, [facility] [place] [facility] [address] [id number] [place] [address] May, [facility] [place] [facility] [address] [id number] [place] [address] May, [facility] [place] [facility] [address] [id number] [place] [address] May, [facility] [place] [facility] [address] [id number] [place] [address] May, [facility] [place] [facility] [address] [id number] [place] [address] Mar, [facility] [place] [facility] [address] [id number] [place] [address] 14 Mar, 2013 [facility] [place] [facility] [address] [id number] [place] [address] 07 Mar, 2013 [facility] [place] [facility] [address] [id number] [place] [address] Mar, [facility] [place] [facility] [address] [id number] [place] [address] Mar, [facility] [place] [facility] [address] [id number] [place] [address] Mar, [facility] [place] [facility] [address] [id number] [place] [address] Feb, [facility] [place] [facility] [address] [id number], [place] [address] Feb, [facility] [place] [facility] [address] [id number] [place] [address] Feb, [facility] [place] [facility] [address] [id number], [place] [address] Feb, [facility] [place] [facility] [address] [id number], [place] [address] Feb, [facility] [place] [facility] [address] [id number], [place] [address] Feb, [facility] [place] [facility] [address] [id number], [place] [address] Feb, [facility] [place] [facility] [address] [id number], [place] [address] Feb, [facility] [place] [facility] [address] [id number], [place] [address] Feb, [facility] [place] [facility] [address] [id number], [place] [address] Feb, [facility] [place] [facility] [address] [id number] [place] [address] Feb, [facility] [place] [facility] [address] [id number] [place] [address] Feb, [facility] [place] [facility] [address] [id number] [place] [address] Jan, [facility] [place] [facility] [address] [id number] [place] [address] Jan, [facility] [place] [facility] [address] [id number] [place] [address] Dec, [facility] [place] [facility] [address] [id number] [place] [address] Dec, [facility] [place] [facility] [address] [id number] [place] [address] Nov, [facility] [place] [facility] [address] [id number] [place] [address] Nov, [facility] [place] [facility] [address] [id number] [place] [address] Nov, [facility] [place] [facility] [address] [facility] [id number] [place] [address] Nov, [facility] [place] [facility] [address] [id number] [place] [address] Nov, [facility] [place] [facility] [address] [id number], [place] [address] Oct, [facility] [place] [facility] [address] [id number] [place] [address] September, [facility] [place] [facility] [address] [id number] [place] [address] Aug, [facility] [place] [facility] [address] [id number] [place] [address] Jul, [facility] [place] [facility] [address] [id number] [place] [address] Jul, [facility] [place] [facility] [address] [id number] [place] [address] 06 Jul, 2012 [facility] [place] [facility] [address] [id number] [place] [address] 28 Jun, 2012 [facility] [place] [facility] [address] [id number] [place] [address] 14 Jun, 2012 [facility] [place] [facility] [address] [id number] [place] [address] 12 Jun, 2012 [facility] [place] [facility] [address] [id number] [place] [address] 11 Jun, 2012 [facility] [place] [facility] [address] [id number] [place] [address] Jun, [facility] [place] [facility] [address] [id number] [place] [address] May, [facility] [place] [facility] [address] [id number] [place] [address] May, [facility] [place] [facility] [address] [id number] [place] [address] Apr, [facility] [place] [facility] [address] [id number] [place] [address] Apr, [facility] [place] [facility] [address] [id number] [place] [address] Mar, [facility] [place] [facility] [address] [id number] [place] [address] Mar, [facility] [place] [facility] [address] [id number] [place] [address] Mar, [facility] [place] [facility] [address] [id number] [place] [address] Mar, [facility] [place] [facility] [address] [id number] [place] [address] Mar, [facility] [place] [facility] [address] [id number] [place] [address] Mar, [facility] [place] [facility] [address] [id number] [place] [address] Mar, [facility] [place] [facility] [address] [id number] [place] [address] Mar, [facility] [place] [facility] [address] [id number] [place] [address] Mar, [facility] [place] [facility] [address] [id number] [place] [address] Mar, [facility] [place] [facility] [address] [id number] [place] [address] Feb, [facility] [place] [facility] [address] [id number] [place] [address] Feb, [facility] [place] [facility] [address] [id number] [place] [address] Feb, [facility] [place] [facility] [address] [id number] [place] [address] Feb, [facility] [place] [facility] [address] [id number] [place] [address] Feb, [facility] [place] [facility] [address] [id number], [place] [address] Feb, [facility] [place] [facility] [address] [id number], [place] [address] Jan, [facility] [place] [facility] [address] [id number] [place] [address] Jan, [facility] [place] [facility] [address] [id number] [place] [address] Dec, [facility] [place] [facility] [address] [id number] [place] [address] Dec, [facility] [place] [facility] [address] [id number] [place] [address] Dec, [facility] [address] [id number] [place] [address] Nov, [facility] [address] [id number] [place] [address] September, [facility] [address] [id number] [place] [address] September, [facility] [address] [id number] [place] [address] September, [facility] [address] [id number] [place] [address] September, [facility] [address] [id number] [place] [address] Aug, [facility] [address] [id number] [place] [address] Aug, [facility] [address] [id number] [place] [address] Aug, [facility] [address] [id number] [place] [address] Aug, [facility] [address] [id number] [place] [address] Aug, [facility] [address] [id number] [place] [address] Jul, [facility] [address] [id number] [place] [address] Jul, [facility] [place] [facility] [address] [id number] [place] [address] Jul, [facility] [address] [id number] [place] [address] 29 Jun, 2011 [facility] [place] [facility] [address] [id number] [place] [address] 17 Jun, 2011 [facility] [place] [facility] [address] [id number] [place] [address] 13 Jun, 2011 [facility] [place] [facility] [address] [id number] [place] [address] 10 Jun, 2011 [facility] [place] [facility] [address] [id number] [place] [address] 07 Jun, 2011 [facility] [place] [facility] [address] [id number] [place] [address] Jun, [facility] [place] [facility] [address] [id number] [place] [address] Jun, [facility] [place] [facility] [address] [id number] [place] [address] 24 May, 2011 [facility] [place] [facility] [address] [id number] [place] [address] May, [facility] [place] [facility] [address] [id number] [place] [address] May, [facility] [place] [facility] [address] [id number] [place] [address] May, [facility] [place] [facility] [address] [id number] [place] [address] Apr, [facility] [place] [facility] [address] [id number] [place] [address] Apr, [facility] [place] [facility] [address] [id number] [place] [address] Mar, [facility] [place] [facility] [address] [id number] [place] [address] Mar, [facility] [place] [facility] [address] [id number] [place] [address] Mar, [facility] [place] [facility] [address] [id number] [place] [address] Nov, [facility] [place] [facility] [address] [id number] [place] [address] 13 May, 2010 [facility] [address] [id number] [place] [address] 23 Apr, 2010 [facility] [place] [address] [id number] [place] [address] 13 Apr, 2010 [facility] [address] [id number] [place] [address] Apr, [facility] [place] [facility] [address] [id number] [place] [address] Apr, [facility] [address] [id number] [place] [address] Apr, [facility] [address] [id number] [place] [address] Mar, [facility] [address] [id number] [place] [address] Mar, [facility] [address] [id number] [place] [address] Feb, [facility] [address] [id number] [place] [address] 14 Aug, 2009 [facility] [address] [id number] [place] [address] Jul, [facility] [address] [id number] [place] [address] 17 Jun, 2009 [facility] [address] [id number] [place] [address] Apr, [facility] [place] [address] [id number] [place] [address] Apr, [facility] [address] [id number] [place] [address] Mar, [facility] [address] [id number] [place] [address] Mar, [facility] [address] [facility] [id number] [place] [address] Feb, [facility] [address] [facility] [id number], [place] [address] Dec, [facility] [address] [facility] [id number] [place] [address] Oct, IMMUNIZATIONS No Known Immunizations SOCIAL HISTORY Never Assessed REASON FOR VISIT [facility] [place] VITAL SIGNS MEDICATIONS Unknown [...]
[2018-10-06 09:40] LABS: BASOPHILS % (AUTO) 1 % (0-10); EOSINOPHILS # (AUTO) 0.3 10^3/uL (0.0-0.3); EOSINOPHILS % (AUTO) 5 % (0-10); HEMATOCRIT 37 % (35-52); HEMOGLOBIN 12.3 G/DL (11.5-16.0); LYMPHOCYTES # (AUTO) 1.9 X 10^3 (1.0-4.0); LYMPHOCYTES % (AUTO) 32 % (12-44); MEAN CORPUSCULAR HEMOGLOBIN 29 PG (25-34); MEAN CORPUSCULAR HGB CONC 33 G/DL (32-36); MEAN CORPUSCULAR VOLUME 85 FL (80-99); MEAN PLATELET VOLUME 9.8 FL (7.4-10.4); MONOCYTES # (AUTO) 0.5 X 10^3 (0.0-1.0); MONOCYTES % (AUTO) 8 % (0-12); NEUTROPHILS # (AUTO) 3.3 X 10^3 (1.8-7.8); NEUTROPHILS % (AUTO) 54 % (42-75); PLATELET COUNT 259 10^3/uL (130-400); RED CELL DISTRIBUTION WIDTH 13.8 % (10.0-14.5)
[2018-10-06] MEDS ORDERED: RT-ALBUTEROL/IPRATROPIUM 3 ML (DUONEB) VIAL INH ONE (09:45)
[2018-10-06 09:53] LABS: ALANINE AMINOTRANSFERASE 23 U/L (0-55); ALKALINE PHOSPHATASE 163 U/L (40-136); BILIRUBIN,TOTAL 0.2 MG/DL (0.1-1.0); BUN/CREATININE RATIO 9; CALCIUM 9.2 MG/DL (8.5-10.1); CARBON DIOXIDE 25 MMOL/L (21-32); CHLORIDE 98 MMOL/L (98-107); CREATININE SERUM 0.69 MG/DL (0.60-1.30); GFR ESTIMATED > 60; GLUCOSE 96 MG/DL (70-105); POTASSIUM 3.7 MMOL/L (3.6-5.0); SODIUM 132 MMOL/L (135-145); TOTAL PROTEIN 7.4 GM/DL (6.4-8.2)
--- NOTE | 2018-10-06 10:06 | Diagnostic Imaging Report ---
Indication: Rapid heartbeat, shortness of breath Comparison: September 21, 2018 Technique: 2 radiographs of the chest dated 10/06/2018 Findings: Pacer device is present with a battery pack overlying the left chest. The cardiac silhouette is upper limits of normal in size. No significant pulmonary vascular congestion. The lungs are clear of focal pulmonary opacity. No pleural effusion. No pneumothorax. Scattered osseous degenerative changes with out acute osseous abnormality. Impression: Pacer device is in place without acute cardiopulmonary abnormality. Dictated by: Dictated on workstation # [id number]
--- NOTE | 2018-10-06 10:11 | ED General ---
General Chief Complaint: Respiratory Problems Stated Complaint: SOA Nursing Triage Note: PT AMB TO RM 5 WITH COMPLAINT OF SOA. STATES STARTED THIS AM AROUND 0700. STATES SHE RECENTLY HAD A PACEMAKER PLACED 09/21/18 Nursing Sepsis Screen: No Definite Risk Source of Information: Patient, Old Records Exam Limitations: No Limitations History of Present Illness Date Seen by Provider: October 06, 2018 Time Seen by Provider: 09:15 Initial Comments This 58-year-old woman presents to the emergency room with complaints of acute onset of shortness of breath that woke her from sleep. It lasted for about 15 minutes or so. She has very mild shortness of breath now. She denies any chest pain, cough, or fever. Patient had a pacemaker placed on September 21 after being evaluated in the ER for near syncope on September 18. Dr. Gerardo is her rubber ball finisher and Dr. Spence is her primary care provider. She is in sinus rhythm at this time. Allergies and Home Medications Allergies Coded Allergies: amitriptyline (Unverified Allergy, Unknown, CAUSED SLURRED SPEECH, 08/15/15) Home Medications Albuterol Sulfate 8.5 Gm Hfa.aer.ad, 1-2 PUFF IH Q4H PRN for SHORTNESS OF BREATH, (Reported) Alprazolam 0.5 Mg Tablet, 0.5 MG PO BID PRN for ANXIETY, (Reported) Amlodipine Besylate 10 Mg Tablet, 10 MG PO HS Prescribed by: ELIZABETH SERNA on 05/12/16 1143 Aripiprazole 10 Mg Tablet, 10 MG PO DAILY, (Reported) Aspirin 325 Mg Tablet.dr, 325 MG PO DAILY, (Reported) Buspirone HCl 10 Mg Tablet, 10 MG PO DAILY, (Reported) Buspirone HCl 10 Mg Tablet, 20 MG PO HS, (Reported) TAKES 2 (10MG) TABLETS Carbamazepine 200 Mg Tablet, 200 MG PO DAILY, (Reported) TAKES FOR FACIAL TWITCHES, NOT SEIZURES Carbamazepine 200 Mg Tablet, 400 MG PO HS, (Reported) TAKES 2 (200MG) TABLETS Carvedilol 25 Mg Tab, 25 MG PO BID, (Reported) Cephalexin 500 Mg Capsule, 500 MG PO TID Prescribed by: TANNA MCLAUGHLIN on 09/22/18 0840 Famotidine 20 Mg Tablet, 20 MG PO BID Prescribed by: MADDIE HALL on 05/16/16 1649 Fluticasone Propionate 16 Gm [place].susp, 1 SPRAY NS DAILY PRN for ALLERGIES, (Reported) Furosemide 20 Mg Tablet, 20 MG PO DAILY, (Reported) Meclizine HCl 25 Mg Tablet, 25 MG PO Q6H PRN for DIZZINESS Prescribed by: MARLEEN AGUILERA on 09/18/18 1656 Nortriptyline HCl 25 Mg Capsule, 50 MG PO HS, (Reported) TAKES 2 (25 MG) CAPSULES Nystatin 15 Gm Cream..g., TP BID, (Reported) Potassium Chloride 20 Meq Tab.er.prt, 20 MEQ PO DAILY Prescribed by: ELIZABETH SERNA on 05/12/16 1143 Vilazodone Hydrochloride 40 Mg Tablet, 40 MG PO DAILY, (Reported) Patient Home Medication List Home Medication List Reviewed: Yes Review of Systems Review of Systems Constitutional: no symptoms reported EENTM: no symptoms reported Respiratory: see HPI Cardiovascular: see HPI Gastrointestinal: no symptoms reported Genitourinary: no symptoms reported : No Musculoskeletal: no symptoms reported Skin: no symptoms reported Psychiatric/Neurological: No Symptoms Reported Hematologic/Lymphatic: No Symptoms Reported Past Miiippt-Fpjdpv-Fyxkxp Hx Patient Social History Alcohol Use: Denies Use Recreational Drug Use: No Smoking Status: Never a Smoker 2nd Hand Smoke Exposure: No Recent Foreign Travel: No Contact w/Someone Who Travel: No Recent Infectious Disease Expo: No Recent Hopitalizations: No Immunizations Up To Date Tetanus Booster (TDap): More than 5yrs PED Vaccines UTD: Yes Date of Pneumonia Vaccine: May 10, 2013 Date of Influenza Vaccine: Feb 25, 2016 Seasonal Allergies Seasonal Allergies: Yes Past Medical History Surgeries: Yes Pacemaker Respiratory: Yes (ASTHMA-MILD, SLEEP APNEA-CPAP) Asthma, Sleep Apnea Currently Using CPAP: Yes Cardiac: Yes (HAS A LINK DEVICE, severe sinus node dysfunction) Atrial Fibrillation, Hypertension, Syncope Neurological: No Reproductive Disorders: No Female Reproductive Disorders: Denies Sexually Transmitted Disease: No HIV/AIDS: No Gastrointestinal: Yes Gastroesophageal Reflux, Chronic Constipation, Irritable Bowel Musculoskeletal: Yes Arthritis Endocrine: No Loss of Vision: Denies Hearing Impairment: Denies Cancer: No Psychosocial: Yes Anxiety, Depression Integumentary: No Blood Disorders: No Family Medical History Alcoholism Cancer Cancer of colon (GRANDMA) Cataract Dementia Family history: Alzheimer's disease Family history: Arthritis Family history: Diabetes mellitus Family history: Hypertension Family history: Osteoporosis Heart disease History of - anemia History of - respiratory disease Hypercholesterolemia Myocardial infarction Visual impairment No Family History of: Abdominal aortic aneurysm Delaplaine's disease Aphasia Chest pain Congenital heart disease Congestive heart failure Cystic fibrosis Dysphagia Family history: Allergy Family history: Asthma Family history: Breast disease Family history: Cardiovascular disease Family history: Coronary thrombosis Family history: Gastrointestinal disease Family history: Glaucoma Family history: Thyroid disorder Headache Hearing loss Hereditary disease History of - disorder History of drug abuse Human immunodeficiency virus (HIV) seropositivity Infertile Kidney disease Malignant neoplasm of lung Parkinson's disease Prostate cancer Psychotic disorder Seizure disorder Stroke Tuberculosis No Pertinent Family Hx Physical Exam Vital Signs Vital Signs - First Documented 10/06/18 09:06 Temp 98.2 Pulse 74 Resp 19 B/P (MAP) 183/91 (121) Pulse Ox 98 O2 Delivery Room Air Capillary Refill : Less Than 3 Seconds Height, Weight, BMI Height: 5'7.00" Weight: 260lbs. 0.0oz. 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 raw salt II- XII Norm as Tested, Other (affect somewhat flat) Skin: Normal Color, Warm/Dry Progress/Results/Core Measures Suspected Sepsis Recent Fever Within 48 Hours: No Infection Criteria Present: None New/Unexplained Altered Menta: No Sepsis Screen: No Definite Risk SIRS Temperature:98.2 Pulse: 74 Respiratory Rate: 19 Laboratory Tests 10/06/18 09:20: White Blood Count 6.0 Blood Pressure 183 /91 Mean: 121 Laboratory Tests 10/06/18 09:20: Creatinine 0.69, Platelet Count 259, Total Bilirubin 0.2 Results/Orders Lab Results Laboratory Tests Test 10/06/18 09:20 Range/Units White Blood Count 6.0 4.3-11.0 10^3/uL Red Blood Count 4.31 L 4.35-5.85 10^6/uL Hemoglobin 12.3 11.5-16.0 G/DL Hematocrit 37 35-52 % Mean Corpuscular Volume 85 80-99 FL Mean Corpuscular Hemoglobin 29 25-34 PG Mean Corpuscular Hemoglobin Concent 33 32-36 G/DL Red Cell Distribution Width 13.8 10.0-14.5 % Platelet Count 259 130-400 10^3/uL Mean Platelet Volume 9.8 7.4-10.4 FL Neutrophils (%) (Auto) 54 42-75 % Lymphocytes (%) (Auto) 32 12-44 % Monocytes (%) (Auto) 8 0-12 % Eosinophils (%) (Auto) 5 0-10 % Basophils (%) (Auto) 1 0-10 % Neutrophils # (Auto) 3.3 1.8-7.8 X 10^3 Lymphocytes # (Auto) 1.9 1.0-4.0 X 10^3 Monocytes # (Auto) 0.5 0.0-1.0 X 10^3 Eosinophils # (Auto) 0.3 0.0-0.3 10^3/uL Basophils # (Auto) 0.0 0.0-0.1 10^3/uL Sodium Level 132 L 135-145 MMOL/L Potassium Level 3.7 3.6-5.0 MMOL/L Chloride Level 98 98-107 MMOL/L Carbon Dioxide Level 25 21-32 MMOL/L Anion Gap 9 5-14 MMOL/L Blood Urea Nitrogen 6 L 7-18 MG/DL Creatinine 0.69 0.60-1.30 MG/DL Estimat Glomerular Filtration Rate > 60 BUN/Creatinine Ratio 9 Glucose Level 96 70-105 MG/DL Calcium Level 9.2 8.5-10.1 MG/DL Corrected Calcium 9.2 8.5-10.1 MG/DL Magnesium Level 2.0 1.8-2.4 MG/DL Total Bilirubin 0.2 0.1-1.0 MG/DL Aspartate Amino Transf (AST/SGOT) 21 5-34 U/L Alanine Aminotransferase (ALT/SGPT) 23 0-55 U/L Alkaline Phosphatase 163 H 40-136 U/L Troponin I < 0.028 <0.028 NG/ML B-Type Natriuretic Peptide 37.3 <100.0 PG/ML Total Protein 7.4 6.4-8.2 GM/DL Albumin 4.0 3.2-4.5 GM/DL My Orders Orders - JIA BAEZ MD Albuterol/Ipra Inhalation Soln (Duoneb I (10/06/18 09:45) Svn Small Volume Nebulizer (10/06/18 09:32) Ed Iv/Invasive Line Start (10/06/18 09:32) Ekg Tracing (10/06/18 09:32) Monitor-Rhythm Ecg Trace Only (10/06/18 09:32) Chest Pa/Lat (2 View) (10/06/18 09:32) BNP (10/06/18 09:32) Cbc With Automated Diff (10/06/18 09:32) Comprehensive Metabolic Panel (10/06/18 09:32) Magnesium (10/06/18 09:32) Troponin I (10/06/18 09:32) Medications Given in ED Current Medications Medications Dose Ordered Sig/Delfino Route Start Time Stop Time Status Last Admin Dose Admin Albuterol/ Ipratropium 3 ml ONCE ONCE INH 10/06/18 09:45 10/06/18 09:46 DC 10/06/18 09:42 3 ML Vital Signs/I&O 10/06/18 10/06/18 10/06/18 09:06 09:42 11:05 Temp 98.2 98.2 Pulse 74 65 Resp 19 22 B/P (MAP) 183/91 (121) 179/95 (123) Pulse Ox 98 97 100 O2 Delivery Room Air Room Air Room Air Capillary Refill : Less Than 3 Seconds Blood Pressure Mean: 121 Progress Note : Time: 10:44 Progress Note Workup is unremarkable. Patient does feel improved after DuoNeb treatment. I spoke with the in store marketing representative from [employer] who reports no rhythm issues on interrogation performed at 01:00. Interrogation will be run again daily 01:00. Case was discussed with Dr. Mitchell who has no additional concerns from a cardiac perspective. ECG Initial ECG Impression Date: October 06, 2018 Initial ECG Impression Time: 10:16 Initial ECG Rate: 69 Initial ECG Rhythm: Normal Sinus Initial ECG Intervals: Normal Initial ECG Impression: Normal Comment Normal sinus rhythm with no ST elevation or depression. No abnormal intervals or axis deviation. Diagnostic Imaging Diagonstic Imaging: Xray Plain Films/CT/US/NM/MRI: chest Comments Chest x-ray viewed by me and report reviewed. See report below: NAME: ELIZABETH ESPITIA Clau [facility] REC#: [id number] PT STATUS: REG ER : 1960 PHYSICIAN: JIA BAEZ MD ADMIT DATE: 10/06/18/ER Draft Date of Exam:10/06/18 CHEST PA/LAT (2 VIEW) Indication: Rapid heartbeat, shortness of breath Comparison: September 21, 2018 Technique: 2 radiographs of the chest dated 10/06/2018 Findings: Pacer device is present with a battery pack overlying the left chest. The cardiac silhouette is upper limits of normal in size. No significant pulmonary vascular congestion. The lungs are clear of focal pulmonary opacity. No pleural effusion. No pneumothorax. Scattered osseous degenerative changes with out acute osseous abnormality. Impression: Pacer device is in place with out acute cardiopulmonary abnormality. Dictated on workstation # [id number] Dict: 10/06/18 1001 Trans: 10/06/18 1005 [facility] [id number] Interpreted by: KENZIE WILLIS MD Departure Impression Primary Impression: Asthma exacerbation Qualified Codes: J45.901 - Unspecified asthma with (acute) exacerbation Additional Impression: Sinus node dysfunction Disposition: 01 HOME, SELF-CARE Condition: Improved Departure-Patient Inst. Decision time for Depature: 10:45 Referrals: DESIREE SPENCE MD (PCP/Family) Primary Care Physician Patient Instructions: Asthma, Adult (DC) Add. Discharge Instructions: Return to care if you have worsening symptoms. Continue your medications as previously prescribed. You may take your morning medications when you return home. Contact Dr. Gerardo's office for a follow-up. All discharge instructions reviewed with patient and/or family. Voiced understanding. Copy Copies To 1: Rita GERARDO MD Copies To 2: DESIREE SPENCE MD, JOSHUA T MD October 06, 2018 10:11
[2018-10-06 11:05] VITALS: BP 179/95
== END 2018-10-06 11:05 | disposition home or self-care (01) ==
LOC: EDUNIT# 09:06 → ER 09:07
DX: J45.901 Unspecified asthma with (acute) exacerbation (principal); I49.5 Sick sinus syndrome; G47.30 Sleep apnea, unspecified; I48.91 Unspecified atrial fibrillation; I10 Essential (primary) hypertension; K21.9 Gastro-esophageal reflux disease without esophagitis; K58.9 Irritable bowel syndrome, unspecified; F41.9 Anxiety disorder, unspecified; F32.9 Major depressive disorder, single episode, unspecified; Z87.19 Personal history of other diseases of the digestive system; Z95.0 Presence of cardiac pacemaker; Z80.0 Family history of malignant neoplasm of digestive organs; Z82.49 Family history of ischemic heart disease and other diseases of the circulatory system; Z88.8 Allergy status to other drugs, medicaments and biological substances; Z79.82 Long term (current) use of aspirin; Z79.51 Long term (current) use of inhaled steroids
CPT/HCPCS: 36415; 71046; 80053; 83735; 83880; 84484; 85025; 93005; 93041; 94640

== ENCOUNTER → 2019-03-15 | Outpatient (CLI) | payer MEDICARE ==
[2019-03-15 13:38] LABS: ALBUMIN 3.9 GM/DL (3.2-4.5); BUN/CREATININE RATIO 10; CALCIUM 8.5 MG/DL (8.5-10.1); CARBON DIOXIDE 25 MMOL/L (21-32); CHLORIDE 102 MMOL/L (98-107); CREATININE SERUM 0.68 MG/DL (0.60-1.30); GFR ESTIMATED > 60; GLUCOSE 91 MG/DL (70-105); PHOSPHORUS 3.5 MG/DL (2.3-4.7); POTASSIUM 3.8 MMOL/L (3.6-5.0); SODIUM 137 MMOL/L (135-145); URIC ACID 3.4 MG/DL (2.6-7.2)
== END ==
LOC: LAB 13:00
PROVIDERS: ATTEND Internal Medicine Nephrology
DX: N18.2 Chronic kidney disease, stage 2 (mild) (principal); E87.1 Hypo-osmolality and hyponatremia; E21.1 Secondary hyperparathyroidism, not elsewhere classified
CPT/HCPCS: 36415; 80069; 84443; 84550

== ENCOUNTER → 2020-03-10 | Outpatient (CLI) | payer MEDICARE ==
[~2020-03-10] MED LIST changes: +AMLO-250 PO; +AMLO-251 PO; -AMLO10TA7 PO; -AMLO5TAB9 PO; -ARIP5TAB20 PO; +ARIP5TAB57 PO; -DILT240C PO; +DILT240C91 PO; -MECL-106 PO; +MECL-149 PO; -METO-370 PO; +METO50TA7 PO; -PANT40TA3 PO; +PANT40TA52 PO; -TRAM50TA2 PO; +TRM50T PO
[2020-03-10 12:26] LABS: BASOPHILS # (AUTO) 0.1 10^3/uL (0.0-0.1); BASOPHILS % (AUTO) 1 % (0-10); EOSINOPHILS # (AUTO) 0.2 10^3/uL (0.0-0.3); EOSINOPHILS % (AUTO) 3 % (0-10); HEMATOCRIT 39 % (35-52); LYMPHOCYTES # (AUTO) 1.5 10^3/uL (1.0-4.0); LYMPHOCYTES % (AUTO) 28 % (12-44); MEAN CORPUSCULAR HEMOGLOBIN 29 pg (25-34); MEAN CORPUSCULAR HGB CONC 33 g/dL (32-36); MEAN CORPUSCULAR VOLUME 88 fL (80-99); MEAN PLATELET VOLUME 10.1 fL (9.0-12.2); MONOCYTES # (AUTO) 0.3 10^3/uL (0.0-1.0); MONOCYTES % (AUTO) 5 % (0-12); NEUTROPHILS # (AUTO) 3.5 10^3/uL (1.8-7.8); NEUTROPHILS % (AUTO) 63 % (42-75); PLATELET COUNT 222 10^3/uL (130-400); WHITE BLOOD COUNT 5.5 10^3/uL (4.3-11.0)
[2020-03-10 12:34] LABS: BILIRUBIN,URINE NEGATIVE (NEGATIVE); CLARITY,URINE CLEAR; COLOR,URINE YELLOW; GLUCOSE, URINE (UA) NEGATIVE (NEGATIVE); KETONES,URINE NEGATIVE (NEGATIVE); LEUKOCYTE ESTERASE ,URINE TRACE (NEGATIVE); NITRITE,URINE NEGATIVE (NEGATIVE); PROTEIN,URINE NEGATIVE (NEGATIVE)
[2020-03-10 12:42] LABS: ALBUMIN 3.9 GM/DL (3.2-4.5); BUN/CREATININE RATIO 9; CALCIUM 8.4 MG/DL (8.5-10.1); CARBON DIOXIDE 26 MMOL/L (21-32); CHLORIDE 99 MMOL/L (98-107); CREATININE SERUM 0.78 MG/DL (0.60-1.30); GFR ESTIMATED > 60; GLUCOSE 128 MG/DL (70-105); MAGNESIUM 1.8 MG/DL (1.6-2.4); PHOSPHORUS 3.3 MG/DL (2.3-4.7); POTASSIUM 3.6 MMOL/L (3.6-5.0); SODIUM 135 MMOL/L (135-145)
[2020-03-10 12:45] LABS: BACTERIA,URINE TRACE /HPF; WBC,URINE 0-2 /HPF
[2020-03-10 13:04] LABS: URINE CREATININE FOR RATIO 33 MG/DL (30-125); URINE PROTEIN FOR RATIO ONLY < 6 MG/DL (6-12)
== END ==
LOC: LAB 11:37
PROVIDERS: ATTEND Internal Medicine Nephrology
DX: I12.9 Hypertensive chronic kidney disease with stage 1 through stage 4 chronic kidney disease, or unspecified chronic kidney disease (principal); N18.2 Chronic kidney disease, stage 2 (mild); R60.0 Localized edema; E87.6 Hypokalemia; E21.1 Secondary hyperparathyroidism, not elsewhere classified
CPT/HCPCS: 36415; 80069; 81000; 82306; 82570; 83735; 83970; 84156; 85025

== ENCOUNTER → 2020-07-29 | Outpatient (CLI) | payer MEDICARE ==
[~2020-07-29] MED LIST changes: -LISI-552 PO; +LISI20TA26 PO; -LISI40TA PO; +LISI40TA9 PO
== END ==
LOC: CARD 09:37
PROVIDERS: ATTEND Internal Medicine Cardiovascular Disease
DX: I51.7 Cardiomegaly (principal); I34.0 Nonrheumatic mitral (valve) insufficiency
CPT/HCPCS: 93306

== ENCOUNTER → 2020-09-02 | Outpatient (CLI) | payer MEDICARE ==
[~2020-09-02] VITALS: Ht 170 cm; Wt 122.0 kg
[~2020-09-02] MED LIST changes: +CATHETER FLUSH 10 ML SYR IV PRN; +REGADENOSON 0.4 MG/5 ML SYR (LEXISCAN) IV ONE
[2020-09-02 09:18] VITALS: BP 135/94
--- NOTE | 2020-09-03 12:08 | STRESS TEST ---
DATE OF SERVICE: 09/02/2020 RESTING AND POST REGADENOSON TECHNETIUM-99M TETROFOSMIN SPECT CT IMAGING ORDERING PHYSICIAN: Dr. Schaefer. PRIMARY PHYSICIAN: Dr. Kent. CLINICAL DIAGNOSIS: Shortness of breath. Baseline images were carried out after injection of 10.6 mCi of technetium-99m Tetrofosmin. This was followed by 0.4 mg Regadenoson and 31 mCi of technetium-99m Tetrofosmin for stress imaging. The electrocardiogram showed sinus rhythm at baseline. It did not change significantly with the Regadenoson infusion. The patient noted some shortness of breath following Regadenoson infusion, which resolved in a few minutes. Review of images at rest and following stress does not indicate any significant perfusion defects consistent with significant myocardial ischemia or infarction. Gated images show normal global left ventricular systolic function with normal regional wall motion. Left ventricular ejection fraction is calculated to be 63%. CONCLUSIONS: 1. No evidence of any significant myocardial ischemia or infarction on this study. 2. Normal regional wall motion. 3. Normal global left ventricular systolic function with a calculated ejection fraction of 63%. Job ID: [id number] DocumentID: [id number] Dictated Date: 09/03/2020 09:56:20 Manager Clinical Date: 09/03/2020 12:07:36 Dictated By: CLEMENT SCHAEFER MD, MA, FACP, FACC,
== END ==
LOC: CARD 08:30
PROVIDERS: ATTEND Internal Medicine Cardiovascular Disease
DX: R06.09 Other forms of dyspnea (principal); R06.02 Shortness of breath
CPT/HCPCS: 78452; 93017; A9502

== ENCOUNTER 2020-10-03 05:34 | Outpatient (RCR) | payer MEDICARE ==
[~2020-10-03] VITALS: Ht 170.2 cm; Wt 118.2 kg
[~2020-10-03 05:34] MED LIST changes: +ATOR20TA66 PO; -CATHETER FLUSH 10 ML SYR IV PRN; +LISI10TA25 PO; +PANT20TA18 PO; -REGADENOSON 0.4 MG/5 ML SYR (LEXISCAN) IV ONE
[2020-10-07] MEDS ORDERED: PANT20TA18 PO (13:53)
== END 2020-10-03 08:37 | disposition home or self-care (01) ==
LOC: PREOP 05:34
PROVIDERS: ATTEND Surgery
DX: Z01.812 Encounter for preprocedural laboratory examination (principal); Z12.11 Encounter for screening for malignant neoplasm of colon; R13.10 Dysphagia, unspecified; Z20.822 Contact with and (suspected) exposure to COVID-19; Z80.0 Family history of malignant neoplasm of digestive organs
CPT/HCPCS: 87635

== ENCOUNTER 2020-10-07 10:51 | Day surgery (SDC) | payer MEDICARE, OTHER ==
[~2020-10-07] VITALS: Ht 170.2 cm; Wt 118.2 kg
[~2020-10-07 10:51] MED LIST changes: +LACTATED RINGERS 1,000 ML IV ONE
[2020-10-07] MEDS ORDERED: LACTATED RINGERS 1,000 ML IV STA (11:05)
[2020-10-07 11:15] VITALS: BP 168/93
[2020-10-07] MEDS ORDERED: HURRICAINE EXT TUBE (BENZOCAINE) XX PRN (11:15)
[2020-10-07] MEDS ORDERED: MIDAZOLAM 2 MG/2 ML (VERSED) VIAL ONE (12:20)
[2020-10-07] MEDS ORDERED: PROPOFOL INJECTION 50 ML IV ONE ×2 (12:20→13:30)
--- NOTE | 2020-10-07 12:56 | Progress Note-Pre Operative ---
Pre-Operative Progress Note H&P Reviewed The H&P was reviewed, patient examined and no changes noted. Date Seen by Provider: Oct 07, 2020 Time Seen by Provider: 12:55 Date H&P Reviewed: Oct 07, 2020 Time H&P Reviewed: 12:55 Pre-Operative Diagnosis: dysphagia, family hx colon cancer DANIELE MACIAS DO Oct 07, 2020 12:56
[2020-10-07 13:50] VITALS: BP 173/79
[2020-10-07] MEDS ORDERED: PANT20TA18 PO (13:53)
--- NOTE | 2020-10-07 13:53 | Discharge Inst-Simple/Standard ---
Discharge Inst-Standard Discharge Medications New, Converted or Re-Newed RX: Transmitted to Pharmacy Patient Instructions/Follow Up Plan of Care/Instructions/FU: 2-3 weeks Andrade Activity as Tolerated: Yes Discharge Diet: Regular Diet DANIELE MACIAS DO Oct 07, 2020 13:53
[2020-10-07 13:55] VITALS: BP 16/77
--- NOTE | 2020-10-07 13:55 | Progress Note-Post Operative ---
Post-Operative Progess Note Surgeon (s)/Building Equipment Inspector (s) Surgeon DANIELE MACIAS DO Building Equipment Inspector: na Pre-Operative Diagnosis dysphagia, family hx colon cancer Post-Operative Diagnosis colon polyps, diverticulosis, gastric polyp small hiatal hernia Procedure & Operative Findings Date of Procedure 10/07/20 Procedure Performed/Findings egd c biopsies, colonoscopy c hot bx polypecomty. Anesthesia Type per city sanitarian Estimated Blood Loss Estimated blood loss (mL): none Specimens/Packing Specimens Removed antrum, ge, colon polyp DANIELE MACIAS DO Oct 07, 2020 13:54
[2020-10-07 14:00] VITALS: BP 180/81
[2020-10-07 14:05] VITALS: BP 180/81
[2020-10-07 14:18] VITALS: BP 180/80
--- NOTE | 2020-10-07 14:26 | Anesthesia-General Post-Op ---
MAC Patient Condition Mental Status/LOC: Same as Preop Cardiovascular: Satisfactory Nausea/Vomiting: Absent Respiratory: Satisfactory Pain: Controlled Complications: Absent Post Op Complications Complications None Follow Up Care/Instructions Patient Instructions None needed. Anesthesiology Discharge Order Discharge Order Patient is doing well, no complaints, stable vital signs, no apparent adverse anesthesia problems. No complications reported per nursing. JOSE DE JESUS BENTLEY CRNA Oct 07, 2020 14:26
--- NOTE | 2020-10-07 15:32 | OPERATIVE REPORT ---
DATE OF SERVICE: 10/07/2020 PREOPERATIVE DIAGNOSES: Dysphagia, family history of colon cancer. POSTOPERATIVE DIAGNOSES: Colon polyps, diverticulosis, gastric polyp, small hiatal hernia. PROCEDURE: EGD with biopsies, colonoscopy with hot biopsy polypectomy x1. SURGEON: Daniele Zafar DO ANESTHESIA: Per MACHINERY RIGGER. ESTIMATED BLOOD LOSS: None. COMPLICATIONS: None. SPECIMENS: Antrum, GE junction and colon polyp. INDICATIONS: The patient is a 60-year-old female with family history of colon cancer and also having dysphagia symptoms. She understands risks and benefits of procedure and wished to proceed with procedure. Consent was signed in the chart. DESCRIPTION OF PROCEDURE: The patient was taken to the endoscopy suite, placed in left lateral recumbent position. Timeout was performed. Scope was inserted in mouth, down the esophagus, stomach and into the duodenum without difficulty. There were no polyps, masses or ulcerations within the duodenum. Scope was slowly retracted back into the stomach where it was further insufflated. No polyps, masses or ulcerations. No masses or ulcerations or significant erythematous changes within the stomach. A couple of small polyps were present, benign in appearance. Scope was retroflexed noting a small hiatal hernia, no other pathology noted. Scope was returned to its normal position, slowly withdrawn to distal esophagus. No polyps, masses or ulcerations present. A biopsy of the GE junction was obtained. A biopsy of the antrum was also obtained previously. Scope was then slowly retracted back. No polyps, masses or ulcerations within the remainder of the esophagus. Scope was slowly retracted back until completely removed. Digital rectal exam was performed with no palpable polyps, masses or ulcerations. Scope was inserted in the rectum, advanced all the way to cecum with minimal difficulty. Prep was adequate with irrigation and suction. Scope was then slowly retracted back. No polyps, masses or ulcerations in the cecum. In the ascending colon, there was one small polyp, which hot biopsy polypectomy was performed. Scope was then continuously retracted back. No polyps, masses or ulcerations within the remainder of the ascending, transverse, descending and sigmoid colon. Once in the rectum, scope was retroflexed noting no other pathology. Slight diverticulosis and colon. Once in the rectum retroflexed and returned to its normal position, slowly withdrawn until completely removed, noting no other pathology. The patient tolerated procedure well without any complications. She was taken to recovery room in stable condition. RECOMMENDATIONS: Pantoprazole was switched from 20 mg to 40 mg. We will see how her symptoms do. Await biopsy results. We will need repeat colonoscopy in 5 years unless has any issues before that. Job ID: [id number] DocumentID: [id number] Dictated Date: 10/07/2020 13:57:54 Marketing Proposal Coordinator Date: 10/07/2020 15:31:07 Dictated By: DANIELE ZAFAR DO
== END 2020-10-07 14:25 | disposition home or self-care (01) ==
LOC: ENDO 10:51
PROVIDERS: ATTEND Surgery
DX: Z12.11 Encounter for screening for malignant neoplasm of colon (principal); D12.2 Benign neoplasm of ascending colon; K20.90 Esophagitis, unspecified without bleeding; K31.7 Polyp of stomach and duodenum; K44.9 Diaphragmatic hernia without obstruction or gangrene; K57.30 Diverticulosis of large intestine without perforation or abscess without bleeding; I48.91 Unspecified atrial fibrillation; I10 Essential (primary) hypertension; I25.10 Atherosclerotic heart disease of native coronary artery without angina pectoris; E78.5 Hyperlipidemia, unspecified; J44.9 Chronic obstructive pulmonary disease, unspecified; E11.40 Type 2 diabetes mellitus with diabetic neuropathy, unspecified; E66.9 Obesity, unspecified; F32.9 Major depressive disorder, single episode, unspecified; Z68.41 Body mass index [BMI] 40.0-44.9, adult; Z79.02 Long term (current) use of antithrombotics/antiplatelets; Z79.899 Other long term (current) drug therapy; Z95.0 Presence of cardiac pacemaker; Z80.0 Family history of malignant neoplasm of digestive organs
CPT/HCPCS: 88305

== ENCOUNTER → 2020-11-04 | Outpatient (CLI) | payer MEDICARE ==
[~2020-11-04] MED LIST changes: -ARIP10TA17 PO; +ARIP10TA55 PO; -LACTATED RINGERS 1,000 ML IV ONE
--- NOTE | 2020-11-04 16:41 | Diagnostic Imaging Report ---
INDICATION: Routine screening. COMPARISON is made with prior mammograms 05/15/2018 and 05/10/2017. 2-D and 3-D bilateral screening mammography was performed with CAD. Scattered fibroglandular densities are identified bilaterally. There are scattered benign calcifications throughout both breasts. No dominant mass or malignant appearing microcalcifications are seen. There is a pacemaker battery pack in the left axilla. IMPRESSION: BI-RADS Category 2 No mammographic features suspicious for malignancy are identified. ACR BI-RADS Category 2: Benign findings. Result letter will be mailed to the patient. Note: At least 10% of breast cancer is not imaged by mammography. Dictated by: Dictated on workstation # [id number]
== END ==
LOC: RAD 13:49
PROVIDERS: ATTEND Family Medicine
DX: Z12.31 Encounter for screening mammogram for malignant neoplasm of breast (principal)
CPT/HCPCS: 77063; 77067

== ENCOUNTER 2021-06-18 05:38 | Outpatient (CLI) | payer MEDICARE ==
[~2021-06-18] VITALS: Ht 170.2 cm; Wt 121.6 kg
[~2021-06-18 05:38] MED LIST changes: +POTA-169 PO; -POTA20TA8 PO
[2021-06-22] MEDS ORDERED: NORT25CA PO (14:04)
== END 2021-06-22 15:33 | disposition home or self-care (01) ==
LOC: PREOP 05:38
PROVIDERS: ATTEND Surgery
DX: Z01.818 Encounter for other preprocedural examination (principal)

== ENCOUNTER 2021-07-09 07:47 | Day surgery (SDC) | payer MEDICARE ==
[~2021-07-09] VITALS: Ht 170.2 cm; Wt 121.6 kg
[2021-07-09] VITALS (12 sets, daily range): BP systolic 162–192; BP diastolic 75–90
[2021-07-09] MEDS ORDERED: LACTATED RINGERS 1,000 ML IV PRN ×2 (08:00)
[2021-07-09] MEDS ORDERED: ceFAZolin 2 GM IV Premixed 50 ML IV ONE (08:00)
--- NOTE | 2021-07-09 08:06 | Progress Note-Pre Operative ---
Pre-Operative Progress Note H&P Reviewed The H&P was reviewed, patient examined and no changes noted. Date Seen by Provider: Jul 09, 2021 Time Seen by Provider: 08:06 Date H&P Reviewed: Jul 09, 2021 Time H&P Reviewed: 08:06 Pre-Operative Diagnosis: right axillary cyst DANIELE MACIAS DO Jul 09, 2021 08:06
[2021-07-09] MEDS ORDERED: LIDOCAINE/EPI 1%-1:200,000 (XYLOCAINE) 30 ML VIAL ONE (08:45)
[2021-07-09] MEDS ORDERED: ONDANSETRON 4 MG/2 ML (SDV) Z0FRAN ONE (09:17)
[2021-07-09] MEDS ORDERED: LIDOCAINE PF 2% 5 ML (XYLOCAINE) VIAL ONE (09:17)
[2021-07-09] MEDS ORDERED: MIDAZOLAM 2 MG/2 ML (VERSED) VIAL ONE (09:17)
[2021-07-09] MEDS ORDERED: fentaNYL INJ 100 MCG/2 ML AMP ONE (09:17)
[2021-07-09] MEDS ORDERED: proPOfol 200 MG/20 ML (DIPRIVAN) VIAL IV ONE (09:17)
[2021-07-09] MEDS ORDERED: SEVOFLURANE (ULTANE) 15 ML INHAL SOLN ONE (11:21)
--- NOTE | 2021-07-09 11:50 | Anesthesia-General Post-Op ---
General Patient Condition Mental Status/LOC: Same as Preop Cardiovascular: Satisfactory Nausea/Vomiting: Absent Respiratory: Satisfactory Pain: Controlled Complications: Absent Post Op Complications Complications None Follow Up Care/Instructions Patient Instructions None needed. Anesthesia/Patient Condition Patient Condition Patient is doing well, no complaints, stable vital signs, no apparent adverse anesthesia problems. No complications reported per nursing. KANWAL TUCKER CRNA Jul 09, 2021 11:50
[2021-07-09] MEDS ORDERED: morphine INJ 10 MG/ML 1ML (SYR OR VIAL) IVP ONE (12:00)
[2021-07-09] MEDS ORDERED: ONDANSETRON 4 MG/2 ML (SDV) Z0FRAN IVP PRN (12:00)
[2021-07-09] MEDS ORDERED: MEPERIDINE (DEMEROL) INJ 50 MG/ML IVP ONE (12:00)
--- NOTE | 2021-07-09 12:21 | Discharge Inst-Simple/Standard ---
Discharge Inst-Standard Patient Instructions/Follow Up Plan of Care/Instructions/FU: 12-14 days Andrade (suture removal) Activity as Tolerated: No Discharge Diet: Regular Diet Other Inst to Patient Follow up Appt: Make appointment for 12-14 days for suture removal. Instructions: No lifting greater than 10 pounds. No strenuous activity. May shower in 24 hours, no tub bath or soaking. Use incentive spirometer at home as directed. No Smoking Skin/Wound Care: Keep area clean and dry. Any change or concern be seen at that time. Symptoms to Report: Appetite Changes, Extremity Discoloration, Numbness/Tingling, Swelling Increased, Bleeding Excessive, Eyesight Changes, Pain Increased, Urine Color Change, Constipation(Persistent), Fever over 101 degree F, Pain/Pressure in chest, Urinating Difficulty, Cough Up/Vomit Blood, Heart Beat Irreg/Pounding, Pain/Pressure in jaw, Vaginal Bleeding Increase, Cramps in feet or legs, Lightheadedness, Pain/Pressure in shoulder, Diarrhea(Persistent), Memory Changes Suddenly, Questions/Concerns, Weight gain consecutive days, Dizziness/Fainting, Nausea/Vomiting, Shortness of Breath, Weight gain over 2 pounds If questions or concerns contact your physician Or seek help at emergency department. DANIELE MACIAS DO Jul 09, 2021 12:21
--- NOTE | 2021-07-09 12:23 | Progress Note-Post Operative ---
Post-Operative Progess Note Surgeon (s)/Filler Sifter Helper (s) Surgeon DANIELE MACIAS DO Filler Sifter Helper: na Pre-Operative Diagnosis right axillary cyst Post-Operative Diagnosis same Procedure & Operative Findings Date of Procedure 07/09/21 Procedure Performed/Findings excision right axillary cyst 5x2.4 cm Anesthesia Type general Estimated Blood Loss Estimated blood loss (mL): minimal Specimens/Packing Specimens Removed right axilla skin, cyst and subcutaneous tissue DANIELE MACIAS DO Jul 09, 2021 12:23
--- NOTE | 2021-07-09 20:49 | OPERATIVE REPORT ---
DATE OF SERVICE: 07/09/2021 PREOPERATIVE DIAGNOSIS: Right axillary cyst. POSTOPERATIVE DIAGNOSIS: Right axillary cyst. PROCEDURE: Excision of right axillary cyst 5 x 2.4 cm. SURGEON: Daniele Zafar DO. ANESTHESIA: General. ESTIMATED BLOOD LOSS: Minimal. COMPLICATIONS: None. INDICATIONS: The patient is a 60-year-old female with a cyst in the right axilla. She understands risks and benefits of procedure and wished to proceed with procedure. Consent was signed in the chart. DESCRIPTION OF PROCEDURE: The patient was taken to the operating suite, was prepped and draped in sterile fashion. Timeout was performed. Local anesthetic was infiltrated around the skin. A 15-blade scalpel was used to make an elliptical incision measuring 5 x 2.4 cm around the cyst. Skin and subcutaneous tissue were removed with cautery. Wound was then irrigated. Hemostasis was achieved. Skin was then closed using 2-0 Prolene in a simple running fashion. The area was washed and dried and sterile bandages were applied. The patient tolerated procedure well without any complications. She was taken to recovery room in stable condition. Job ID: [id number] DocumentID: [id number] Dictated Date: 07/09/2021 15:52:00 Tap Grinder Date: 07/09/2021 20:47:49 Dictated By: DANIELE ZAFAR DO
== END 2021-07-09 13:39 | disposition home or self-care (01) ==
LOC: SDC 07:47
PROVIDERS: ATTEND Surgery
DX: L72.0 Epidermal cyst (principal)
CPT/HCPCS: 87081; 88304

== ENCOUNTER 2021-12-09 06:14 | Outpatient (RCR) | payer MEDICARE ==
[~2021-12-09] VITALS: Ht 170.2 cm; Wt 127.0 kg
[~2021-12-09 06:14] MED LIST changes: -BARIUM for suspension 96% w/w (Vanilla Silq Medium Density) PO ONE; -BARIUM for suspension 98% w/w (Vanilla Silq High Density) PO ONE
== END 2021-12-17 09:58 | disposition home or self-care (01) ==
LOC: PREOP 06:14
PROVIDERS: ATTEND Surgery
DX: Z01.818 Encounter for other preprocedural examination (principal)

== ENCOUNTER → 2021-12-09 | Outpatient (CLI) | payer MEDICARE ==
[~2021-12-09] MED LIST changes: +BARIUM for suspension 96% w/w (Vanilla Silq Medium Density) PO ONE; +BARIUM for suspension 98% w/w (Vanilla Silq High Density) PO ONE
--- NOTE | 2021-12-09 09:22 | Diagnostic Imaging Report ---
INDICATION: Difficulty with food getting stuck in the mid throat. Patient ingested effervescent crystals as well as thin and thick barium and imaging of the esophagus was performed in multiple obliquities. 0.8 minutes of fluoroscopic time was utilized. Preliminary radiograph demonstrate the heart size to be normal. There is a dual-lead left-sided cardiac pacemaker. Lungs are clear. The esophagus has a smooth contour. No mass or stricture is identified. No hiatal hernia or gastroesophageal reflux was demonstrated. IMPRESSION: Unremarkable esophagram. Dictated by: Dictated on workstation # [id number]
== END ==
LOC: RAD 08:26
PROVIDERS: ATTEND Nurse Practitioner
DX: R13.10 Dysphagia, unspecified (principal)
CPT/HCPCS: 74220

== ENCOUNTER 2021-12-22 09:35 | Day surgery (SDC) | payer MEDICARE ==
[~2021-12-22] VITALS: Ht 170.2 cm; Wt 127.0 kg
[2021-12-22] MEDS ORDERED: LACTATED RINGERS 1,000 ML IV ONE (09:41)
[2021-12-22] MEDS ORDERED: LACTATED RINGERS 1,000 ML IV STA (09:42)
[2021-12-22] MEDS ORDERED: HURRICAINE EXT TUBE (BENZOCAINE) XX PRN (09:45)
--- NOTE | 2021-12-22 09:53 | Progress Note-Pre Operative ---
Pre-Operative Progress Note Date of Available H&P: Nov 30, 2021 Date H&P Reviewed: Dec 22, 2021 Time H&P Reviewed: 09:52 History & Physical: H&P Reviewed, Patient Examed, No changes noted Pre-Operative Diagnosis: dysphagia DANIELE MACIAS DO Dec 22, 2021 09:53
[2021-12-22 10:00] VITALS: BP 176/92
[2021-12-22] MEDS ORDERED: proPOfol 200 MG/20 ML (DIPRIVAN) VIAL IV ONE (10:35)
[2021-12-22] MEDS ORDERED: MIDAZOLAM 2 MG/2 ML (VERSED) VIAL ONE (10:35)
--- NOTE | 2021-12-22 10:46 | Progress Note-Post Operative ---
Post-Operative Progess Note Surgeon (s)/Home Planning Consultant Salesperson (s) Surgeon DANIELE MACIAS DO Home Planning Consultant Salesperson: na Pre-Operative Diagnosis dysphagia Post-Operative Diagnosis slight gastritis Procedure & Operative Findings Date of Procedure 12/22/21 Procedure Performed/Findings egd c biopsies Anesthesia Type per direct service provider Estimated Blood Loss Estimated blood loss (mL): none Specimens/Packing Specimens Removed antrum ,body ,ge DANIELE MACIAS DO Dec 22, 2021 10:46
[2021-12-22] MEDS ORDERED: SUCR1TAB36 PO (10:47)
--- NOTE | 2021-12-22 10:47 | Discharge Inst-Simple/Standard ---
Discharge Inst-Standard Discharge Medications New, Converted or Re-Newed RX: Transmitted to Pharmacy Patient Instructions/Follow Up Plan of Care/Instructions/FU: 2 weeks [place]rade Activity as Tolerated: Yes Discharge Diet: Regular Diet DANIELE MACIAS DO Dec 22, 2021 10:47
[2021-12-22 10:49] VITALS: BP 171/83
[2021-12-22 11:05] VITALS: BP 184/85
[2021-12-22 11:15] VITALS: BP 184/85
--- NOTE | 2021-12-22 14:17 | Anesthesia-General Post-Op ---
MAC Patient Condition Mental Status/LOC: Same as Preop Cardiovascular: Satisfactory Nausea/Vomiting: Absent Respiratory: Satisfactory Pain: Controlled Complications: Absent Post Op Complications Complications None Follow Up Care/Instructions Patient Instructions None needed. Anesthesiology Discharge Order Discharge Order Patient is doing well, no complaints, stable vital signs, no apparent adverse anesthesia problems. No complications reported per nursing. YASH ELLINGTON CRNA Dec 22, 2021 14:17
--- NOTE | 2021-12-22 15:30 | OPERATIVE REPORT ---
DATE OF SERVICE: 12/22/2021 PREOPERATIVE DIAGNOSIS: Dysphagia. POSTOPERATIVE DIAGNOSIS: Gastritis. PROCEDURES PERFORMED: EGD with biopsies. SURGEON: Daniele Zafar DO. ANESTHESIA: Per [employer]ELS. ESTIMATED BLOOD LOSS: None. COMPLICATIONS: None. SPECIMENS: Antrum, body and GE junction. INDICATIONS FOR PROCEDURE: The patient is a 61-year-old female with dysphagia symptoms. She had normal esophagram. She understands risks and benefits of procedure and wishes to proceed. Consent was signed in the chart. DESCRIPTION OF PROCEDURE: The patient was taken to the endoscopy suite and placed in a left lateral recumbent position. Timeout was performed. Scope was inserted in mouth, down the esophagus, stomach and into the duodenum without difficulty. There were no polyps, masses or ulcerations within the duodenum. Scope was slowly retracted back to stomach, where it was further insufflated. No polyps, masses or ulcerations. Slight changes of some slight gastritis were present in the stomach. Biopsy of the antrum and body were obtained. Scope was retroflexed noting no other pathology. Scope was returned to its normal position, slowly withdrawn to distal esophagus. No polyps, masses or ulcerations. Biopsy of the GE junction was obtained. Scope was slowly retracted back until completely removed. The patient tolerated the procedure well without any complications. She was taken to recovery room in stable condition. RECOMMENDATIONS: The patient will continue on current medications. We will add Carafate 1 gram four times a day. We will see how she is doing in a couple of weeks. Further recommendations pending results. Job ID: [id number] DocumentID: [id number] Dictated Date: 12/22/2021 10:52:00 Deli Clerk Date: 12/22/2021 15:29:43 Dictated By: DANIELE ZAFAR DO
== END 2021-12-22 11:15 | disposition home or self-care (01) ==
LOC: ENDO 09:35
PROVIDERS: ATTEND Surgery
DX: K29.70 Gastritis, unspecified, without bleeding (principal); K21.00 Gastro-esophageal reflux disease with esophagitis, without bleeding; K31.89 Other diseases of stomach and duodenum; E66.9 Obesity, unspecified; Z79.899 Other long term (current) drug therapy; Z79.82 Long term (current) use of aspirin; Z68.41 Body mass index [BMI] 40.0-44.9, adult
CPT/HCPCS: 88305

== ENCOUNTER → 2023-01-04 | Outpatient (CLI) | payer MEDICARE ==
[~2023-01-04] MED LIST changes: +ALBU8.5H6 IH; -NYST15CR TP; +NYST15CR35 TP; -RT-ALBUINH IH
--- NOTE | 2023-01-04 16:28 | Diagnostic Imaging Report ---
INDICATION: Routine screening. COMPARISON: 11/04/2020 and 05/15/2018. TECHNIQUE: 2D and 3D bilateral screening mammography was performed with CAD. FINDINGS: Scattered fibroglandular densities are identified bilaterally. There are benign calcifications in both breasts. No mass or malignant-appearing microcalcifications are seen. The axillae are stable. IMPRESSION: No mammographic features suspicious for malignancy are identified. ACR BI-RADS Category 2: Benign findings. Result letter will be mailed to the patient. Note: At least 10% of breast cancer is not imaged by mammography. Dictated by: Dictated on workstation # [id number]
== END ==
LOC: RAD 12:50
PROVIDERS: ATTEND Family Medicine
DX: Z12.31 Encounter for screening mammogram for malignant neoplasm of breast (principal)
CPT/HCPCS: 77063; 77067